=== PATIENT | male | born 1955 | race Hispanic/Latino ===

== ENCOUNTER 2016-11-29 07:31 | Inpatient (IN) | payer BC ==
[2016-11-29 08:19] LABS: ADD MANUAL DIFF? NO
[2016-11-29 08:28] LABS: BASO # 0.08 K/mm3 (0.0-2.0); BASO % 0.7 % (0.0-3.0); EOS # 0.3 (0.0-0.7); EOS % 2.3 % (1.5-5.0); GRAN # 8.24 (1.4-6.5); GRAN % 76.8 % (50.0-68.0); HEMATOCRIT 34.2 % (42.0-52.0); LYMPH # 1.5 (1.2-3.4); LYMPH % 14.2 % (22.0-35.0); MEAN CELL VOLUME 79.9 fL (80.0-105.0); MEAN CORPUSCULAR HEMOGLOBIN 25.5 pg (25.0-35.0); MEAN CORPUSCULAR HGB CONC 31.9 g/dl (31.0-37.0); MONO # 0.6 (0.1-0.6); PLATELET COUNT 121 10^3/uL (120.0-450.0); RED CELL DISTRIBUTION WIDTH 16.6 % (11.5-14.5); WHITE BLOOD COUNT 10.7 10^3/ul (4.5-11.0)
[2016-11-29 08:31] LABS: ALB/GLOB RATIO 1.3 (1.1-1.8); BILIRUBIN,TOTAL 0.5 mg/dL (0.2-1.3); CALCIUM 9.2 mg/dL (8.4-10.5); POTASSIUM 4.6 mmol/L (3.6-5.0); TOTAL PROTEIN 7.7 g/dL (5.8-8.3)
[2016-11-29] MEDS ORDERED: Iohexol 240 (50 ml) ONE (08:33)
[2016-11-29] MEDS: Sodium Chloride 0.9% 1,000 ML IV SCH ×2 (08:37→20:34)
--- NOTE | 2016-11-29 08:46 | ED PDOC ---
Arrival/HPI - General Chief Complaint: GI Problem Time Seen by Provider: 11/29/16 08:12 Historian: Patient - History of Present Illness Narrative History of Present Illness (Text): 11/29/16 08:16 A 61 year old male, whose past medical history includes low platelet count, diabetes and 2 hernia repairs, presents to the emergency department complaining of 2 episodes of rectal bleeding this morning. Patient reports the first episode was maroon but the second one was bright red blood. Patient notes some associated abdominal cramping but denies any fever, nausea. vomiting, pain with bowel movement, recent travel or any other complaints at this time. Patient denies history of hemorrhoids. PMD: Dr. Martinez Time/Duration: 1 hour Symptom Onset: Sudden Symptom Course: Unchanged Quality: Cramping Activities at Onset: Rest Context: Home Past Medical History - Infectious Disease Hx of Infectious Diseases: None - Cardiac Hx Cardiac Disorders: Yes Hx Hypertension: Yes - Neurological Hx Neurological Disorder: Yes (neuropathy both feet) Other/Comment: restless legs dx 3 yrs ago - Endocrine/Metabolic Hx Diabetes Mellitus Type 2: Yes - Hematological/Oncological Other/Comment: low platelets, bone marrow bx done december 2015 - Integumentary Other/Comment: right elbow red swollen warm to touch just started 01/17/16. pt hit elbow in work getting a pot, developed staph infection, picc line in for iv abx finished january 06, now elbow is getting red and swollen again. when pt came to er back in november for r elbow injury developed allergic reaction hives throat closed swollen eyes and lips. Pt does not know what from. pt sustained a 2nd degree burn 2016 at work to right forearm which is healed - Musculoskeletal/Rheumatological Hx Falls: No - Psychiatric Hx Substance Use: No - Surgical History Other/Comment: R knee surgery arthroscopic 1978, hernia sx umbilical and left inguinal, picc line in and out to [facility], fluid drained from right elbow [address] dunham, bone marrow bx 12/2015 - Anesthesia Hx Anesthesia: Yes Hx Anesthesia Reactions: No Hx Malignant Hyperthermia: No Family/Social History - Physician Review Nursing Documentation Reviewed: Yes Family/Social History: Unknown Family HX Smoking Status: Heavy Smoker > 10 Cigarettes Daily Hx Alcohol Use: Yes (occasional) Hx Substance Use: No Allergies/Home Meds Allergies/Adverse Reactions: Allergies nut Allergy (Uncoded 11/29/16 22:27) RASH fruit Adverse Reaction (Uncoded 11/29/16 22:27) RASH Home Medications: Home Meds Medication Instructions Recorded Confirmed MetFORMIN [glucoPHAGE] 1,000 mg PO BID 11/26/15 11/29/16 Amitriptyline [Elavil] 25 mg PO HS 01/19/16 11/29/16 Lansoprazole [Prevacid] 30 mg PO DAILY 01/19/16 11/29/16 Alprazolam [Xanax] 0.5 mg PO BID PRN 11/29/16 11/29/16 Eltrombopag Olamine [Promacta] 75 mg PO DAILY 11/29/16 11/29/16 Furosemide [Lasix] 40 mg PO DAILY 11/29/16 11/29/16 Levocetirizine Dihydrochloride 5 mg PO DAILY 11/29/16 11/29/16 [Levocetirizine Dihydrochloride] Ropinirole HCl [Requip Xl] 4 mg PO DAILY 11/29/16 11/29/16 metOLazone [Zaroxolyn] 2.5 mg PO MWF 11/29/16 11/29/16 Review of Systems - Physician Review All systems were reviewed & negative as marked: Yes - Review of Systems Constitutional: absent: Fevers Gastrointestinal: Abdominal Pain, Hematochezia. absent: Nausea, Vomiting Neurological: absent: Headache, Dizziness Physical Exam Vital Signs Reviewed: Yes Vital Signs Temp Pulse Resp BP Pulse Ox 11/29/16 17:44 106 H 18 139/92 H 99 11/29/16 17:00 78 18 126/76 99 11/29/16 11:00 95 H 16 119/71 100 11/29/16 09:32 83 18 84/51 L 98 11/29/16 07:44 98.3 F 115 H 20 135/84 98 Temperature: Afebrile Blood Pressure: Normal Pulse: Tachycardic Respiratory Rate: Normal Appearance: Positive for: Well-Appearing, Non-Toxic, Comfortable Pain Distress: None Mental Status: Positive for: Alert and Oriented X 3 - Systems Exam Head: Present: Atraumatic, Normocephalic Pupils: Present: PERRL Extroacular Muscles: Present: EOMI Conjunctiva: Present: Normal Mouth: Present: Moist Mucous Membranes Neck: Present: Normal Range of Motion Respiratory/Chest: Present: Clear to Auscultation, Good Air Exchange. No: Respiratory Distress, Accessory Muscle Use Cardiovascular: Present: Normal S1, S2, Tachycardic. No: Murmurs Abdomen: Present: Normal Bowel Sounds. No: Tenderness, Distention, Peritoneal Signs Back: Present: Normal Inspection Upper Extremity: Present: Normal Inspection. No: Cyanosis, Edema Lower Extremity: Present: Normal Inspection. No: Edema Neurological: Present: GCS=15, CN II-XII Intact, Speech Normal Skin: Present: Warm, Dry, Normal Color. No: Rashes Psychiatric: Present: Alert, Oriented x 3, Normal Insight, Normal Concentration Medical Decision Making ED Course and Treatment: 11/29/16 08:16 Impression: A 61 year old male with rectal bleeding. Differential Diagnosis include but are not limited to: GI bleed vs. hemorrhoids Plan: -- Abdomen/Pelvis CT -- Labs -- Urinalysis -- IV Fluids -- Reassess and disposition Prior Visits: Notes and results from previous visits were reviewed. The patient last presented to the emergency department on 01/19/16 for evaluation of generalized weakness and lightheadedness. Progress Notes: 11/29/16 10:[address] Martinez, who is aware and agrees with the plan. He states to consult Dr. Mittal (GI). 11/29/16 11:20 Abdomen/Pelvis CT: Creator : Margarito Daniel MD FINDINGS: LOWER THORAX: Unremarkable. LIVER: Unremarkable. No gross lesion or ductal dilatation. GALLBLADDER AND BILE DUCTS: Unremarkable. PANCREAS: Unremarkable. No gross lesion or ductal dilatation. SPLEEN: Unremarkable. ADRENALS: Unremarkable. No mass. KIDNEYS AND URETERS: Left lower pole renal cyst measuring up to 3.8 centimeters.. No hydronephrosis. No solid mass. VASCULATURE: Unremarkable. No aortic aneurysm. BOWEL: Colonic diverticulosis with fluid noted in the rectum and sigmoid.. No obstruction. No gross mural thickening. APPENDIX: Unremarkable. Normal appendix. PERITONEUM: Unremarkable. No free fluid. No free air. LYMPH NODES: Unremarkable. No enlarged lymph nodes. BLADDER: Unremarkable. REPRODUCTIVE: Unremarkable. BONES: No acute fracture. IMPRESSION: Colonic diverticulosis with fluid noted in the rectum and sigmoid.. No obstruction. No gross mural thickening. 11/29/16 12:[address] Hardy, who is aware and states to order a stat bleeding scan. PROCEDURE: Nuclear medicine gastrointestinal bleeding scan. Patent Litigation Associate : Bernabe Grant MD Report Date : 11/29/2016 15:08:58 FINDINGS: There is abnormal accumulation of the radionuclide in the rectum consistent with an active rectal bleed. Physiologic activity was seen in the heart, liver, spleen and blood vessels. IMPRESSION: Active rectal bleed 11/29/16 15:23 Spoke with chemistry technologist about positive bleeding scan, still awaiting callback from Dr. Hardy 11/29/16 16:28 Patient accepted by ICU - Lab Interpretations Lab Results: 11/29/16 16:25 11/29/16 08:05 Lab Results 11/29/16 16:25: WBC 9.1 D, RBC 3.14 L, Hgb 8.0 L, Hct 24.7 L, MCV 78.7 L, MCH 25.5, MCHC 32.4, RDW 16.5 H, Plt Count 92 L, Gran % 81.7 H, Lymph % (Auto) 10.7 L, [place] % (Auto) 6.1 H, Eos % (Auto) 1.1 L, Baso % (Auto) 0.4, Gran # 7.45 H, Lymph # 1.0 L, [place] # 0.6, Eos # 0.1, Baso # 0.04 11/29/16 16:00: Urine Color Light yellow, Urine Appearance Clear, Urine pH 6.0, Ur Specific [place] 1.010, Urine Protein Trace H, Urine Glucose (UA) Negative, Urine Ketones Negative, Urine Blood Negative, Urine Nitrate Negative, Urine Bilirubin Negative, Urine Urobilinogen 0.2, Ur Leukocyte Esterase Negative, Urine RBC Negative, Urine WBC Negative, Ur Epithelial Cells 0 - 2, Urine Bacteria Neg 11/29/16 11:05: WBC 15.0 H D, RBC 3.72, Hgb 9.6 L, Hct 29.6 L, MCV 79.6 L, MCH 25.8, MCHC 32.4, RDW 16.6 H, Plt Count 134, Gran % 82.5 H, Lymph % (Auto) 10.6 L , [place] % (Auto) 5.1, Eos % (Auto) 1.1 L, Baso % (Auto) 0.7, Gran # 12.36 H, Lymph # 1.6, [place] # 0.8 H, Eos # 0.2, Baso # 0.10 11/29/16 10:05: Blood Type O POSITIVE, Antibody Screen Negative, Crossmatch See Detail, BBK History Checked Patient has bt 11/29/16 10:05: PT 12.0 H, INR 1.11 H, APTT 26.0 11/29/16 08:05: Sodium 139, Potassium 4.6, Chloride 104, Carbon Dioxide 26, Anion Gap 14, BUN 38 H, Creatinine 1.5 H, Est GFR ( Amer) 58, Est GFR ( Non-Af Amer) 48, Random Glucose 249 H, Calcium 9.2, Total Bilirubin 0.5, AST 31 , ALT 30, Alkaline Phosphatase 100, Total Protein 7.7, Albumin 4.4, Globulin 3.3 , Albumin/Globulin Ratio 1.3 11/29/16 08:05: WBC 10.7 D, RBC 4.28, Hgb 10.9 L, Hct 34.2 L, MCV 79.9 L, MCH 25.5, MCHC 31.9, RDW 16.6 H, Plt Count 121, Gran % 76.8 H, Lymph % (Auto) 14.2 L , [place] % (Auto) 6.0, Eos % (Auto) 2.3, Baso % (Auto) 0.7, Gran # 8.24 H, Lymph # 1.5, [place] # 0.6, Eos # 0.3, Baso # 0.08 I have reviewed the lab results: Yes - RAD Interpretation Radiology Orders: 11/29/16 08:31 ABD & PELVIS PO CONTRAST ONLY [CT] Stat 11/29/16 12:13 GI BLEEDING SCAN W/ FLOW [NM] Stat - Medication Orders Current Medication Orders: Home Med (Home Med) 1 unit PO DAILY JHON Sodium Chloride (Sodium Chloride 0.9%) 1,000 mls @ 100 mls/hr IV .Q10H JHON Last Admin: 11/30/16 06:04 Dose: 100 mls/hr Pantoprazole Sodium (Protonix 40mg Ivpb) 40 mg in 100 mls @ 20 mls/hr IVPB .Q5H JHON Last Admin: 11/30/16 06:14 Dose: 20 mls/hr Insulin Human Regular (Humulin R Med) 0 units SC ACHS JHON PRN Reason: Protocol Last Admin: 11/29/16 22:00 Dose: Not Given Non-Admin Reason: Blood Sugar Parameter Discontinued Medications Ephedrine (Ephedrine) Confirm Administered Dose 50 mg .ROUTE .STK-MED ONE Stop: 11/29/16 18:58 Fentanyl (Fentanyl) Confirm Administered Dose 100 mcg .ROUTE .STK-MED ONE Stop: 11/29/16 18:36 Sodium Chloride (Sodium Chloride 0.9%) 1,000 mls @ 999 mls/hr IV .Q1H1M STA Stop: 11/29/16 11:02 Last Admin: 11/29/16 10:30 Dose: 999 mls/hr Iohexol (Omnipaque 240 (50 Ml)) Confirm Administered Dose 50 ml .ROUTE .STK-MED ONE Stop: 11/29/16 08:34 Lidocaine (Lidocaine (Bolus)) Confirm Administered Dose 100 mg .ROUTE .STK-MED ONE Stop: 11/29/16 18:30 Phenylephrine HCl (Phenylephrine Inj) Confirm Administered Dose 10 mg .ROUTE .STK-MED ONE Stop: 11/29/16 19:03 Pneumococcal Polyvalent Vaccine (Pneumovax 23 Vaccine) 0.5 ml IM .ONCE ONE Stop: 11/29/16 23:14 Propofol (Diprivan) Confirm Administered Dose 800 mg .ROUTE .STK-MED ONE Stop: 11/29/16 18:30 - Scribe Statement The provider has reviewed the documentation as recorded by the Rosa M Ray Provider Scribe Attestation: All medical record entries made by the Scribe were at my direction and personally dictated by me. I have reviewed the chart and agree that the record accurately reflects my personal performance of the history, physical exam, medical decision making, and the department course for this patient. I have also personally directed, reviewed, and agree with the discharge instructions and disposition. Disposition/Present on Arrival - Present on Arrival Any Indicators Present on Arrival: No History of DVT/PE: No History of Uncontrolled Diabetes: No Urinary Catheter: No History of Decub. Ulcer: No History Surgical Site Infection Following: None - Disposition Have Diagnosis and Disposition been Completed?: Yes Diagnosis: Rectal bleeding, Anemia Disposition: HOSPITALIZED Disposition Time: 14:30 Patient Plan: ICU Condition: FAIR Critical Care Time - Critical Care Note Total Time (in mins): 120 Documented critical care: time excludes all time spent performing seperately billable procedures.
[2016-11-29] MEDS ORDERED: Sodium Chloride 0.9% 1,000 ML IV STA (10:02)
[2016-11-29 10:29] LABS: INR 1.11 (0.93-1.08)
--- NOTE | 2016-11-29 11:19 | CT ---
PROCEDURE: CT Abdomen and Pelvis without intravenous contrast HISTORY: lower abdominal pain with rectal bleeding COMPARISON: None. TECHNIQUE: Technique. Contrast Dose: Radiation dose: Total exam DLP = mGy-cm. This CT exam was performed using one or more of the following dose reduction techniques: Automated exposure control, adjustment of the mA and/or kV according to patient size, and/or use of iterative reconstruction technique. FINDINGS: LOWER THORAX: Unremarkable. LIVER: Unremarkable. No gross lesion or ductal dilatation. GALLBLADDER AND BILE DUCTS: Unremarkable. PANCREAS: Unremarkable. No gross lesion or ductal dilatation. SPLEEN: Unremarkable. ADRENALS: Unremarkable. No mass. KIDNEYS AND URETERS: Left lower pole renal cyst measuring up to 3.8 centimeters.. No hydronephrosis. No solid mass. VASCULATURE: Unremarkable. No aortic aneurysm. BOWEL: Colonic diverticulosis with fluid noted in the rectum and sigmoid.. No obstruction. No gross mural thickening. APPENDIX: Unremarkable. Normal appendix. PERITONEUM: Unremarkable. No free fluid. No free air. LYMPH NODES: Unremarkable. No enlarged lymph nodes. BLADDER: Unremarkable. REPRODUCTIVE: Unremarkable. BONES: No acute fracture. OTHER FINDINGS: None. IMPRESSION: Colonic diverticulosis with fluid noted in the rectum and sigmoid.. No obstruction. No gross mural thickening.
[2016-11-29] MEDS: Pantoprazole 40mg/100ml IVPB 40 MG/100 ML BAG IVPB SCH ×2 (11:32→17:08)
[2016-11-29 12:06] LABS: ADD MANUAL DIFF? NO
[2016-11-29 12:09] LABS: BASO % 0.7 % (0.0-3.0); EOS # 0.2 (0.0-0.7); EOS % 1.1 % (1.5-5.0); GRAN # 12.36 (1.4-6.5); GRAN % 82.5 % (50.0-68.0); HEMATOCRIT 29.6 % (42.0-52.0); LYMPH # 1.6 (1.2-3.4); LYMPH % 10.6 % (22.0-35.0); MEAN CELL VOLUME 79.6 fL (80.0-105.0); MEAN CORPUSCULAR HEMOGLOBIN 25.8 pg (25.0-35.0); MEAN CORPUSCULAR HGB CONC 32.4 g/dl (31.0-37.0); MONO # 0.8 (0.1-0.6); MONO % 5.1 % (1.0-6.0); PLATELET COUNT 134 10^3/uL (120.0-450.0); RED CELL DISTRIBUTION WIDTH 16.6 % (11.5-14.5)
--- NOTE | 2016-11-29 14:16 | CON ---
DATE: 11/29/2016 This is a covering consult for Dr. Lázaro Mittal. The patient was seen and examined in the Emergency Room. REQUEST FOR CONSULTATION: For GI bleed. HISTORY OF PRESENT ILLNESS: This is a 61-year-old male with a past medical history of thrombocytopenia, diabetes mellitus and hernia repair x 2. Came to the Emergency Room for evaluation of bleeding per rectum. The patient states that he had 2 bloody bowel movements. The initial bowel movement was maroon colored and the second bowel movement was bright red blood. He has had bleeding while here in hospital. He did complain of abdominal cramping, which urged him to go to the bathroom, but denies current abdominal pain. No complaints of nausea. No shortness of breath. No chest pains. No reports of any vomiting, fever or chills. Denies any use of NSAIDs. Reports that he moves his bowels regularly and has never noted any melena or bright red blood per rectum. Denies ever having endoscopy or colonoscopy. No complaints of any weight loss or anorexia, just right now he is feeling thirsty. He did have a CT scan done in the Emergency Room, which reports colonic diverticulosis and fluid in the rectum and sigmoid. PAST MEDICAL HISTORY: As stated above, thrombocytopenia, status post bone marrow biopsy, insulin-dependent diabetes mellitus, diabetic neuropathy, septic arthritis of the right elbow, hypertension. PAST SURGICAL HISTORY: He had repair of inguinal and umbilical hernia. Denies any cardiac procedures. ALLERGIES: No known drug allergies. SOCIAL HISTORY: Denies tobacco use, alcohol abuse or substance abuse. FAMILY HISTORY: Denies any known history of cancer in the family or any other illness. MEDICATIONS: Reviewed as per MAR. REVIEW OF SYSTEMS: Systems reviewed with positive findings, see HPI. VITAL SIGNS: Temperature is 98.3 on admission, his recent blood pressure is 119 /71, pulse rate 95, respirations 16, 100% on room air. LABORATORIES: WBC on admission is 10.7, repeated again at 11 and it is 15.0, his hemoglobin is 9.6, hematocrit 29.6. Hemoglobin on admission was 10.9. Current platelets from 11 a.m. is 134. PT 12.0, INR is 1.11, PTT 26.0. Sodium is 139, K is 4.6, BUN is 38, creatinine is 1.5. His liver enzymes are within normal limits. PHYSICAL EXAMINATION: HEENT: Sclera is anicteric. NECK: Supple. CARDIAC: S1, S2. LUNGS: Clear. ABDOMEN: With bowel sounds, soft, not distended, no tenderness on palpation. No rebound or guarding. EXTREMITIES: Positive pulses, no edema. NEUROLOGIC: Awake, alert, and oriented. ASSESSMENT: This is a 61-year-old male with history of thrombocytopenia, hernia repair x 2, came with complaints of bleeding per rectum, rule out diverticular bleed, angiodysplasia, malignancy, history of hypertension, anemia secondary to bleeding. Diverticulosis evident on ct scan. PLAN: He is getting a stat bleeding scan. Monitor H and H. Currently n.p.o. and continue IV fluids for hydration. On Protonix drip, typed and screen in ER. We will continue to follow closely. Thank you for this consult and for allowing us to participate in your patient's care. We will make further recommendations based upon patient's clinical course. Follow up GI bleeding scan. Seen and case discussed with Dr. Hardy. Sparkle RODRIGUEZ cc: [id number] TT: 11/29/2016 14:15:20 Confirmation # [id number] Dictation # [id number] en MTDD
--- NOTE | 2016-11-29 15:10 | NM ---
PROCEDURE: Nuclear medicine gastrointestinal bleeding scan. HISTORY: BRBPR COMPARISON: None available. TECHNIQUE: 4 cc of patient blood was withdrawn and mixed with 20 mCi of technetium ultra tagged. Images of the abdomen and pelvis were obtained in the anterior projection at 1 min intervals over a period of 45 min. FINDINGS: There is abnormal accumulation of the radionuclide in the rectum consistent with an active rectal bleed. Physiologic activity was seen in the heart, liver, spleen and blood vessels. IMPRESSION: Active rectal bleed
[2016-11-29 16:07] LABS: URINE BILIRUBIN NEGATIVE (NEGATIVE); URINE BLOOD NEGATIVE (NEGATIVE); URINE GLUCOSE (UA) NEGATIVE (NEGATIVE); URINE KETONE NEGATIVE (NEGATIVE); URINE LEUKOCYTE ESTERASE NEGATIVE Leu/uL (NEGATIVE); URINE PROTEIN TRACE mg/dL (<30 mg/dL); URINE UROBILINOGEN 0.2 E.U./dL (<1 E.U./dL)
[2016-11-29 16:09] LABS: URINE APPEARANCE CLEAR (CLEAR); URINE COLOR LIGHT YELLOW (YELLOW)
[2016-11-29 16:10] LABS: URINE BACTERIA NEG (NEG); URINE EPITHELIAL CELLS 0 - 2 /hpf (0-5); URINE RBC NEGATIVE /hpf (0-2); URINE WBC NEGATIVE /hpf (0-6)
[2016-11-29 16:32] LABS: ADD MANUAL DIFF? NO
[2016-11-29 16:37] LABS: BASO # 0.04 K/mm3 (0.0-2.0); BASO % 0.4 % (0.0-3.0); EOS # 0.1 (0.0-0.7); EOS % 1.1 % (1.5-5.0); GRAN # 7.45 (1.4-6.5); GRAN % 81.7 % (50.0-68.0); HEMATOCRIT 24.7 % (42.0-52.0); LYMPH % 10.7 % (22.0-35.0); MEAN CELL VOLUME 78.7 fL (80.0-105.0); MEAN CORPUSCULAR HEMOGLOBIN 25.5 pg (25.0-35.0); MEAN CORPUSCULAR HGB CONC 32.4 g/dl (31.0-37.0); MONO # 0.6 (0.1-0.6); MONO % 6.1 % (1.0-6.0); PLATELET COUNT 92 10^3/uL (120.0-450.0); RED CELL DISTRIBUTION WIDTH 16.5 % (11.5-14.5); WHITE BLOOD COUNT 9.1 10^3/ul (4.5-11.0)
--- NOTE | 2016-11-29 17:02 | CP.PCM.CON ---
<Luz Wong - Last Filed: 11/29/16 17:21> History of Present Illness - History of Present Illness History of Present Illness: Critical care consult for Dr. Negro Wong, PGY-1 Pt S & E at bedside. 61M w/PMH sig for DM, diabetic neuropathy, restless leg syndrome, thrombocytopenia evaluated in ED for hematochezia x 5. Pt reports he moved his bowels this AM at approximately 0730 with noted bright red blood in toilet bowel , no clots or melena, estimated volume of 0.5 L. Pt reports he subsequently had 4-5 more episodes of BRBPR between initial episode and evaluation. Pt admits to blurry vision (chronic) abdominal discomfort with bloating, feels like he is going to move his bowels at same time as urinating, B/L LE numbness and tingling (chronic). Denies N/V/F/C, SOB, CP, palpitations, CARTY, syncope, changes in vision, cough, hemoptysis, hematemesis, melena, clots, B/L LE pain, back pain, dysuria, hematuria, hemorrhoids, hx falls. In ED pt had bleeding scan positive for rectal bleeding. H/H down trending. Plts down trending. GI consulted. PMH: DM, diabetic neuropathy, restless leg syndrome, thrombocytopenia PSH: Umbilical hernia repair, Left inguinal hernia repair, Right knee arthroscopy All: Fruits (itchy throat), fresh nuts (itchy throat) SH: Admits to tobacco use - 1 ppd x 30 yrs, denies ETOH or illicit drug use PMD: [facility] Outpt heme: [facility] Review of Systems - Review of Systems All systems: reviewed and no additional remarkable complaints except - Constitutional Constitutional: absent: Chills, Fever, Headache - EENT Eyes: Blurred Vision (chronic). absent: Blind Spots Ears: absent: Dizziness Nose/Mouth/Throat: absent: Epistaxis, Dysphagia, Sore Throat - Cardiovascular Cardiovascular: absent: Chest Pain, Dyspnea, Leg Edema, Lightheadedness, Palpitations - Respiratory Respiratory: absent: Cough - Gastrointestinal Gastrointestinal: Bloating, Change in Bowel Habits, Hematochezia. absent: Abdominal Pain, Hematemesis, Melena, Nausea, Vomiting - Genitourinary Genitourinary: absent: Change in Urinary Stream - Musculoskeletal Musculoskeletal: Numbness (B/L LE (chronic)), Tingling (B/L LE (chronic)). absent: Back Pain - Integumentary Integumentary: absent: Bleeding Lesions - Neurological Neurological: absent: Frequent Falls, Headaches, Syncope, Weakness - Endocrine Endocrine: absent: Palpitations Past Patient History - Infectious Disease Hx of Infectious Diseases: None - Past Social History Smoking Status: Heavy Smoker > 10 Cigarettes Daily - CARDIAC Hx Cardiac Disorders: Yes Hx Hypertension: Yes - NEUROLOGICAL Hx Neurological Disorder: Yes (neuropathy both feet) Other/Comment: restless legs dx 3 yrs ago - ENDOCRINE/METABOLIC Hx Diabetes Mellitus Type 2: Yes - HEMATOLOGICAL/ONCOLOGICAL Other/Comment: low platelets, bone marrow bx done december 2015 - INTEGUMENTARY Other/Comment: right elbow red swollen warm to touch just started 01/17/16. pt hit elbow in work getting a pot, developed staph infection, picc line in for iv abx finished january 06, now elbow is getting red and swollen again. when pt came to er back in november for r elbow injury developed allergic reaction hives throat closed swollen eyes and lips. Pt does not know what from. pt sustained a 2nd degree burn 2016 at work to right forearm which is healed - MUSCULOSKELETAL/RHEUMATOLOGICAL Hx Falls: No - PSYCHIATRIC Hx Substance Use: No - SURGICAL HISTORY Other/Comment: R knee surgery arthroscopic 1978, hernia sx umbilical and left inguinal, picc line in and out to [facility], fluid drained from right elbow [address] dunham, bone marrow bx 12/2015 - ANESTHESIA Hx Anesthesia: Yes Hx Anesthesia Reactions: No Hx Malignant Hyperthermia: No Meds Allergies/Adverse Reactions: Allergies Allergy/AdvReac Type Severity Reaction Status Date / Time nut Allergy RASH Uncoded 11/29/16 07:54 fruit AdvReac RASH Uncoded 11/29/16 07:54 - Medications Medications: Current Medications Sodium Chloride (Sodium Chloride 0.9%) 1,000 mls @ 100 mls/hr IV .Q10H JHON Last Admin: 11/29/16 08:37 Dose: 100 mls/hr Pantoprazole Sodium (Protonix 40mg Ivpb) 40 mg in 100 mls @ 20 mls/hr IVPB .Q5H J[facility]ON Last Admin: 11/29/16 11:32 Dose: 20 mls/hr Insulin Human Regular (Humulin R Med) 0 units SC ACHS JHON PRN Reason: Protocol Physical Exam - Constitutional Appears: Non-toxic, No Acute Distress - Head Exam Head Exam: ATRAUMATIC, NORMAL INSPECTION, NORMOCEPHALIC - Eye Exam Eye Exam: EOMI, Normal appearance, PERRL. absent: Nystagmus, Scleral icterus Pupil Exam: NORMAL ACCOMODATION, PERRL - ENT Exam ENT Exam: Mucous Membranes Moist (no paleness under the tongue), Normal Exam - Neck Exam Neck exam: Positive for: Full Rom. Negative for: Normal Inspection (Prominent mobile mass under skin of right neck, approximately 1.3 cm in diameter), Tenderness - Respiratory Exam Respiratory Exam: Clear to Auscultation Bilateral, NORMAL BREATHING PATTERN. absent: Accessory Muscle Use, Chest Wall Tenderness, Rales, Rhonchi, Wheezes, Respiratory Distress - Cardiovascular Exam Cardiovascular Exam: REGULAR RHYTHM, +S1, +S2 - GI/Abdominal Exam GI & Abdominal Exam: Hypoactive Bowel Sounds, Soft. absent: Distended, Firm, Guarding, Rigid, Tenderness - Extremities Exam Extremities exam: Positive for: normal inspection. Negative for: pedal edema, tenderness - Back Exam Back exam: FULL ROM, NORMAL INSPECTION. absent: paraspinal tenderness, tenderness - Neurological Exam Neurological exam: Alert, CN II-XII Intact, Oriented x3 - Psychiatric Exam Psychiatric exam: Normal Affect, Normal Mood - Skin Skin Exam: Dry, Intact, Normal Color, Warm Results - Vital Signs Recent Vital Signs: Last Vital Signs Temp 98.3 F 11/29/16 07:44 Pulse 95 H 11/29/16 11:00 Resp 16 11/29/16 11:00 BP 119/71 11/29/16 11:00 Pulse Ox 100 11/29/16 11:00 - Labs Result Diagrams: 11/29/16 16:25 11/29/16 08:05 Labs: Laboratory Results - last 24 hr 11/29/16 11/29/16 11/29/16 08:05 08:05 10:05 WBC 10.7 D RBC 4.28 Hgb 10.9 L Hct 34.2 L MCV 79.9 L MCH 25.5 MCHC 31.9 RDW 16.6 H Plt Count 121 Gran % 76.8 H Lymph % (Auto) 14.2 L [place] % (Auto) 6.0 Eos % (Auto) 2.3 Baso % (Auto) 0.7 Gran # 8.24 H Lymph # 1.5 [place] # 0.6 Eos # 0.3 Baso # 0.08 PT 12.0 H INR 1.11 H APTT 26.0 Sodium 139 Potassium 4.6 Chloride 104 Carbon Dioxide 26 Anion Gap 14 BUN 38 H Creatinine 1.5 H Est GFR ( Amer) 58 Est GFR (Non-Af Amer) 48 Random Glucose 249 H Calcium 9.2 Total Bilirubin 0.5 AST 31 ALT 30 Alkaline Phosphatase 100 Total Protein 7.7 Albumin 4.4 Globulin 3.3 Albumin/Globulin Ratio 1.3 Urine Color Urine Appearance Urine pH Ur Specific [place] Urine Protein Urine Glucose (UA) Urine Ketones Urine Blood Urine Nitrate Urine Bilirubin Urine Urobilinogen Ur Leukocyte Esterase Urine RBC Urine WBC Ur Epithelial Cells Urine Bacteria Blood Type Antibody Screen BBK History Checked 11/29/16 11/29/16 11/29/16 10:05 11:05 16:00 WBC 15.0 H D RBC 3.72 Hgb 9.6 L Hct 29.6 L MCV 79.6 L MCH 25.8 MCHC 32.4 RDW 16.6 H Plt Count 134 Gran % 82.5 H Lymph % (Auto) 10.6 L [place] % (Auto) 5.1 Eos % (Auto) 1.1 L Baso % (Auto) 0.7 Gran # 12.36 H Lymph # 1.6 [place] # 0.8 H Eos # 0.2 Baso # 0.10 PT INR APTT Sodium Potassium Chloride Carbon Dioxide Anion Gap BUN Creatinine Est GFR ( Amer) Est GFR (Non-Af Amer) Random Glucose Calcium Total Bilirubin AST ALT Alkaline Phosphatase Total Protein Albumin Globulin Albumin/Globulin Ratio Urine Color Light yellow Urine Appearance Clear Urine pH 6.0 Ur Specific [place] 1.010 Urine Protein Trace H Urine Glucose (UA) Negative Urine Ketones Negative Urine Blood Negative Urine Nitrate Negative Urine Bilirubin Negative Urine Urobilinogen 0.2 Ur Leukocyte Esterase Negative Urine RBC Negative Urine WBC Negative Ur Epithelial Cells 0 - 2 Urine Bacteria Neg Blood Type O POSITIVE Antibody Screen Negative BBK History Checked Patient has bt 11/29/16 16:25 WBC 9.1 D RBC 3.14 L Hgb 8.0 L Hct 24.7 L MCV 78.7 L MCH 25.5 MCHC 32.4 RDW 16.5 H Plt Count 92 L Gran % 81.7 H Lymph % (Auto) 10.7 L [place] % (Auto) 6.1 H Eos % (Auto) 1.1 L Baso % (Auto) 0.4 Gran # 7.45 H Lymph # 1.0 L [place] # 0.6 Eos # 0.1 Baso # 0.04 PT INR APTT Sodium Potassium Chloride Carbon Dioxide Anion Gap BUN Creatinine Est GFR ( Amer) Est GFR (Non-Af Amer) Random Glucose Calcium Total Bilirubin AST ALT Alkaline Phosphatase Total Protein Albumin Globulin Albumin/Globulin Ratio Urine Color Urine Appearance Urine pH Ur Specific [place] Urine Protein Urine Glucose (UA) Urine Ketones Urine Blood Urine Nitrate Urine Bilirubin Urine Urobilinogen Ur Leukocyte Esterase Urine RBC Urine WBC Ur Epithelial Cells Urine Bacteria Blood Type Antibody Screen BBK History Checked Assessment & Plan - Assessment and Plan (Free Text) Assessment: 61M w/PMH sig for DM, diabetic neuropathy, restless leg syndrome, chronic thrombocytopenia on Promacta admitted to ICU for acute rectal bleeding and chronic thrombocytopenia. Pt currently stable, however will monitor H/H, transfuse blood and plts PRN. Plan: Neuro AO x3 Monitor CVS Tachycardia upon admission- resolved HR WNL BP w/1 episode of hypotension-resolved Likely 2/2 acute GIB No cardiac hx Monitor Pulm Stable 100% on RA Monitor GI NPO IVF Cont Protonix drip GI consulted- possible sigmoidoscopy Surgery consulted-Eileen Nephro Electrolytes WNL BUN 38 Cr 1.5 Monitor Able to urinate on own Endo DM Start ISS Start Accuchecks Blood sugar 249 Target euglycemia as per NICE sugar trial ID Afebrile Leukocytosis of 15 from 10.7 FU U/A Monitor Heme Chronic thrombocytopenia on Promacta Acute GI bleed Hgb 8 from 9.6 from 10.9 Hct 24.7 from 29.6 from 34.2 Plts 92 from 134 Will have plts on hold for possible transfusion On Protonix drip PT 12 INR 1.11 PTT 26 Type O positive Serial CBCs Q4H Blood transfusion PRN Monitor See's [facility] as outpt- will consult MSK Ambulate SCDs GI/DVT ppx Contraindications to VTE ppx due to acute GIB On Protonix drip SCDs Dispo Currently stable Will admit to ICU for further mgmt Transfuse blood PRN Hgb<7 DW attending - Date & Time Date: 11/29/16 Time: 16:00 <Rios Mitchell MD - Last Filed: 11/29/16 18:17> Meds - Medications Medications: Current Medications Sodium Chloride (Sodium Chloride 0.9%) 1,000 mls @ 100 mls/hr IV .Q10H JHON Last Admin: 11/29/16 08:37 Dose: 100 mls/hr Pantoprazole Sodium (Protonix 40mg Ivpb) 40 mg in 100 mls @ 20 mls/hr IVPB .Q5H J[facility]ON Last Admin: 11/29/16 17:08 Dose: 20 mls/hr Insulin Human Regular (Humulin R Med) 0 units SC ACHS JHON PRN Reason: Protocol Results - Vital Signs Recent Vital Signs: Last Vital Signs Temp 98.3 F 11/29/16 07:44 Pulse 78 11/29/16 17:00 Resp 18 11/29/16 17:00 BP 126/76 11/29/16 17:00 Pulse Ox 99 11/29/16 17:00 - Labs Result Diagrams: 11/29/16 16:25 11/29/16 08:05 Attending/Attestation - Attestation I have personally seen and examined this patient.: Yes I have fully participated in the care of the patient.: Yes I have reviewed all pertinent clinical information: Yes Notes (Text): 11/29/16 18:16 61 y/o M w/ Lower GI bleed Overt BRBPR x 4 in the past 6 hrs. 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 Currently HGB is dropping slowly with a positive Bleeding scan ordered by Michele.I Will need to have 1 unit prbc and 1 unit platelets on hold Possible Flex SIG planned for tonight to stabilize bleed. Currently on PPI drip. And cbc q4 hrs. Hemodynamically stable. SCD . cc time 65 min
[2016-11-29] MEDS ORDERED: Propofol 10 mg/ml Inj (20 ML) ONE (18:29)
[2016-11-29] MEDS ORDERED: ePHEDrine 50 mg/ml Inj ONE (18:57)
[2016-11-29] MEDS ORDERED: Phenylephrine 10 mg/ml Inj ONE (19:02)
[2016-11-29] MEDS: Insulin Reg-MEDIUM-Coverage SC SCH (22:00)
[2016-11-29 23:13] VITALS: BMI 30.2
[2016-11-29] MEDS ORDERED: Pneumococcal 23-Valent Vaccine IM ONE (23:13)
[2016-11-30] MEDS: Pantoprazole 40mg/100ml IVPB 40 MG/100 ML BAG IVPB SCH ×5 (01:07→22:55)
[2016-11-30 01:33] LABS: ADD MANUAL DIFF? NO
[2016-11-30 01:35] LABS: BASO # 0.04 K/mm3 (0.0-2.0); BASO % 0.5 % (0.0-3.0); EOS # 0.1 (0.0-0.7); EOS % 1.8 % (1.5-5.0); GRAN # 5.49 (1.4-6.5); GRAN % 74.2 % (50.0-68.0); HEMATOCRIT 24.7 % (42.0-52.0); LYMPH # 1.2 (1.2-3.4); LYMPH % 16.1 % (22.0-35.0); MEAN CELL VOLUME 79.9 fL (80.0-105.0); MEAN CORPUSCULAR HEMOGLOBIN 26.5 pg (25.0-35.0); MEAN CORPUSCULAR HGB CONC 33.2 g/dl (31.0-37.0); MONO # 0.6 (0.1-0.6); MONO % 7.4 % (1.0-6.0); PLATELET COUNT 78 10^3/uL (120.0-450.0); RED CELL DISTRIBUTION WIDTH 16.4 % (11.5-14.5); WHITE BLOOD COUNT 7.4 10^3/ul (4.5-11.0)
[2016-11-30 05:59] LABS: ALB/GLOB RATIO 1.2 (1.1-1.8); ALKALINE PHOSPHATASE 75 U/L (38-133); ALT/SGPT 32 U/L (7-56); AST/SGOT 24 U/L (15-59); BILIRUBIN,TOTAL 0.6 mg/dL (0.2-1.3); BLOOD UREA NITROGEN 22 mg/dL (7-21); CALCIUM 8.4 mg/dL (8.4-10.5); CARBON DIOXIDE 25 mmol/L (21-33); CHLORIDE 109 mmol/L (98-107); GFR AFRICAN-AMERICAN > 60; GLUCOSE,RANDOM 189 mg/dL (70-110); MAGNESIUM 1.8 mg/dL (1.7-2.2); PHOSPHOROUS 3.2 mg/dL (2.5-4.5); POTASSIUM 4.3 mmol/L (3.6-5.0); SODIUM 138 mmol/L (132-148); TOTAL PROTEIN 5.6 g/dL (5.8-8.3)
[2016-11-30] MEDS: Sodium Chloride 0.9% 1,000 ML IV SCH (06:04)
[2016-11-30 06:28] LABS: ADD MANUAL DIFF? NO
[2016-11-30 06:39] LABS: BASO # 0.06 K/mm3 (0.0-2.0); BASO % 0.8 % (0.0-3.0); EOS # 0.1 (0.0-0.7); EOS % 1.8 % (1.5-5.0); GRAN # 5.83 (1.4-6.5); GRAN % 76.7 % (50.0-68.0); HEMATOCRIT 25.7 % (42.0-52.0); LYMPH # 1.1 (1.2-3.4); LYMPH % 14.3 % (22.0-35.0); MEAN CELL VOLUME 79.6 fL (80.0-105.0); MEAN CORPUSCULAR HEMOGLOBIN 25.7 pg (25.0-35.0); MEAN CORPUSCULAR HGB CONC 32.3 g/dl (31.0-37.0); MONO # 0.5 (0.1-0.6); MONO % 6.4 % (1.0-6.0); PLATELET COUNT 81 10^3/uL (120.0-450.0); RED CELL DISTRIBUTION WIDTH 16.6 % (11.5-14.5); WHITE BLOOD COUNT 7.6 10^3/ul (4.5-11.0)
--- NOTE | 2016-11-30 07:16 | CON ---
DATE: 11/29/2016 This patient was seen and evaluated earlier in the intensive care unit. Discussed with the salvage worker and also with the patient's . This 61-year- old patient with thrombocytopenia, diabetes mellitus and neuropathy. The patient is on Promacta for thrombocytopenia, admitted with acute onset of lower GI bleeding. Bleeding scan was reported as bleeding per the rectum. On close review of the bleeding scan, the bleeding appears to be slightly originating from the sigmoid and tracking down and pooling in the rectal area. The patient has multiple episodes of bright red blood per rectum. The patient's hemoglobin dropped to 8 g. His baseline is around 11 g. Multiple episodes of bright red blood per rectum. No complaints of any abdominal pain, no similar previous episode. The patient never had a colonoscopy done in the past. PHYSICAL EXAMINATION ABDOMEN: Soft. There is no tenderness. This is an addendum to the GI consultation report dictated by Sparkle Eaton APN. Discussed with the patient at length. Informed consent was obtained for flexible sigmoidoscopy and possible colonoscopic evaluation. The patient had a flexible sigmoidoscopy. The scope was advanced up to 40 cm level. There was extensive diverticulosis encountered. The view was very limited and also obstructed by the large amount of clot and blood in the large diverticulum. Could not see further beyond 40 cm. There was no active bleeding noticed in spite of a vigorous lavage. Only large amount of clotted blood noticed. Careful examination of the rectum did not reveal any bleeding source. Careful examination of hemorrhoid does not appear to have any recent evidence of bleeding. The likely source of bleeding appears to be arising from sigmoid based on the review of the nuclear scan and also in view of the large amount of clotted blood in the sigmoid colon area. The patient tolerated the procedure well. The patient sent back to ICU. RECOMMENDATIONS: It is reasonable thing monitoring of the hemoglobin and hematocrit. The patient does have thrombocytopenia also. We will recommend to at least to hold off the further preparation for at least 24 hours, to prepare the patient for the colonoscopy. The CT scan was also reviewed. We will continue to closely follow up his care and suggest further management based on the clinical course. Kiko Hardy MD cc: [id number] TT: 11/30/2016 07:16:24 Confirmation # [id number] Dictation # [id number] tn MOE
[2016-11-30] MEDS: Insulin Reg-MEDIUM-Coverage SC SCH ×4 (08:03→22:22)
[2016-11-30 09:05] LABS: ADD MANUAL DIFF? NO
[2016-11-30 09:08] LABS: BASO # 0.09 K/mm3 (0.0-2.0); BASO % 1.1 % (0.0-3.0); EOS # 0.2 (0.0-0.7); EOS % 2.1 % (1.5-5.0); GRAN # 6.76 (1.4-6.5); GRAN % 79.8 % (50.0-68.0); HEMATOCRIT 28.7 % (42.0-52.0); LYMPH % 11.9 % (22.0-35.0); MEAN CELL VOLUME 79.7 fL (80.0-105.0); MEAN CORPUSCULAR HEMOGLOBIN 26.1 pg (25.0-35.0); MEAN CORPUSCULAR HGB CONC 32.8 g/dl (31.0-37.0); MONO # 0.4 (0.1-0.6); MONO % 5.1 % (1.0-6.0); PLATELET COUNT 98 10^3/uL (120.0-450.0); RED CELL DISTRIBUTION WIDTH 16.6 % (11.5-14.5); WHITE BLOOD COUNT 8.5 10^3/ul (4.5-11.0)
--- NOTE | 2016-11-30 09:15 | CP.PCM.CON ---
History of Present Illness - History of Present Illness History of Present Illness: Surgery Consult for Monika 61M w/PMH sig for ITP DM came to [facility] [place] with hematochezia x 5. Pt reports he moved his bowels yesterday at approximately 0730 with noted bright red blood in toilet bowel, no clots or melena, estimated volume of 0.5 L. Pt reports he subsequently had 4-5 more episodes of BRBPR . Pt admits to abdominal discomfort with bloating. Denies N/V/F/C, SOB, CP, palpitations, CARTY, syncope, changes in vision, cough, hemoptysis, hematemesis, melena, B/L LE pain, back pain, dysuria, hematuria, hemorrhoids, hx falls, recent travel. Pt doens't take blood thinner. Hgb trended down to 8. Got PRBC and went up to 8.3. Pt had flex sigmoidoscope overnight. Showed diverticulosis, no active bleeding, no hemoroidal bleeding. Blood clot noted. Up to 40cm bc of poor prep. This is the first episodes of having hematochezia and pt never had colonoscopy before this time. Since flex sigmoidoscope pt stopped bleeding. PMH: DM, diabetic neuropathy, restless leg syndrome, thrombocytopenia PSH: Umbilical hernia repair, Left inguinal hernia repair, Right knee arthroscopy All: Fruits (itchy throat), fresh nuts (itchy throat) SH: Admits to tobacco use - 1 ppd x 30 yrs, denies ETOH or illicit drug use PMD: [facility] Outpt heme: [facility] Review of Systems - Review of Systems Review of Systems: See HPI Past Patient History - Infectious Disease Hx of Infectious Diseases: None - Past Social History Smoking Status: Current Some Days Smoker - CARDIAC Hx Cardiac Disorders: Yes Hx Hypertension: Yes - PULMONARY Hx Respiratory Disorders: Yes (SMOKES PPD.) - NEUROLOGICAL Hx Neurological Disorder: Yes (neuropathy both feet) Other/Comment: restless legs dx 3 yrs ago - HEENT Hx HEENT Problems: Yes - RENAL Hx Chronic Kidney Disease: No - ENDOCRINE/METABOLIC Hx Endocrine Disorders: Yes Hx Diabetes Mellitus Type 2: Yes - HEMATOLOGICAL/ONCOLOGICAL Hx Blood Disorders: Yes (GI BLEED-) Hx Anemia: Yes Other/Comment: low platelets, bone marrow bx done december 2015 - INTEGUMENTARY Hx Dermatological Problems: Yes Other/Comment: right elbow red swollen warm to touch just started 01/17/16. pt hit elbow in work getting a pot, developed staph infection, picc line in for iv abx finished january 06, now elbow is getting red and swollen again. when pt came to er back in november for r elbow injury developed allergic reaction hives throat closed swollen eyes and lips. Pt does not know what from. 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) Hx Falls: No - GASTROINTESTINAL Hx Gastrointestinal Disorders: Yes (RECTAL BLEED 11-29-16 DX DIVERTICULITIS) Hx Diverticulitis: Yes - GENITOURINARY/GYNECOLOGICAL Hx Genitourinary Disorders: No - PSYCHIATRIC Hx Psychophysiologic Disorder: No Hx Substance Use: No - SURGICAL HISTORY Hx Surgeries: Yes (SIGMOIDOSCOPY,PICC IN AND OUT, RIGHT KNEE ARTHROSCOPY,L INGUINAL HERNIORHAP) - ANESTHESIA Hx Anesthesia Reactions: Yes Hx Malignant Hyperthermia: No Meds Allergies/Adverse Reactions: Allergies Allergy/AdvReac Type Severity Reaction Status Date / Time nut Allergy RASH Uncoded 11/29/16 22:27 fruit AdvReac RASH Uncoded 11/29/16 22:27 - Medications Medications: Current Medications Home Med (Home Med) 1 unit PO DAILY JHON Sodium Chloride (Sodium Chloride 0.9%) 1,000 mls @ 100 mls/hr IV .Q10H [facility] Last Admin: 11/30/16 06:04 Dose: 100 mls/hr Pantoprazole Sodium (Protonix 40mg Ivpb) 40 mg in 100 mls @ 20 mls/hr IVPB .Q5H [facility] Last Admin: 11/30/16 06:14 Dose: 20 mls/hr Insulin Human Regular (Humulin R Med) 0 units SC ACHS JHON PRN Reason: Protocol Last Admin: 11/29/16 22:00 Dose: Not Given Physical Exam - Constitutional Appears: No Acute Distress - Head Exam Head Exam: ATRAUMATIC, NORMAL INSPECTION, NORMOCEPHALIC - Eye Exam Eye Exam: EOMI, Normal appearance, PERRL Pupil Exam: NORMAL ACCOMODATION, PERRL - ENT Exam ENT Exam: Mucous Membranes Moist - Neck Exam Neck exam: Positive for: Normal Inspection - Respiratory Exam Respiratory Exam: Clear to Auscultation Bilateral, NORMAL BREATHING PATTERN - Cardiovascular Exam Cardiovascular Exam: REGULAR RHYTHM - GI/Abdominal Exam GI & Abdominal Exam: Soft. absent: Distended, Firm, Guarding, Hernia, Pulsatile Mass, Rebound, Rigid, Tenderness - Rectal Exam Rectal Exam: Bloody Stool, NORMAL INSPECTION. absent: Black Stool, Hemorrhoids - Exam Exam: NORMAL INSPECTION - Extremities Exam Extremities exam: Positive for: full ROM, normal inspection - Back Exam Back exam: NORMAL INSPECTION - Neurological Exam Neurological exam: Alert, CN II-XII Intact, Normal Gait, Oriented x3, Reflexes Normal Results - Vital Signs Recent Vital Signs: Last Vital Signs Temp 98.3 F 11/29/16 22:53 Pulse 103 H 11/30/16 04:00 Resp 18 11/29/16 22:53 BP 130/79 11/29/16 22:53 Pulse Ox 99 11/29/16 17:44 - Labs Result Diagrams: 11/30/16 09:04 11/30/16 05:35 Labs: Laboratory Results - last 24 hr 11/29/16 11/30/16 11/30/16 23:08 01:25 05:30 WBC 7.4 7.6 RBC 3.09 L 3.23 L Hgb 8.2 L 8.3 L Hct 24.7 L 25.7 L MCV 79.9 L 79.6 L MCH 26.5 25.7 MCHC 33.2 32.3 RDW 16.4 H 16.6 H Plt Count 78 L 81 L Gran % 74.2 H 76.7 H Lymph % (Auto) 16.1 L 14.3 L [place] % (Auto) 7.4 H 6.4 H Eos % (Auto) 1.8 1.8 Baso % (Auto) 0.5 0.8 Gran # 5.49 5.83 Lymph # 1.2 1.1 L [place] # 0.6 0.5 Eos # 0.1 0.1 Baso # 0.04 0.06 Sodium Potassium Chloride Carbon Dioxide Anion Gap BUN Creatinine Est GFR ( Amer) Est GFR (Non-Af Amer) POC Glucose (mg/dL) 190 H Random Glucose Calcium Phosphorus Magnesium Total Bilirubin AST ALT Alkaline Phosphatase Total Protein Albumin Globulin Albumin/Globulin Ratio 11/30/16 11/30/16 11/30/16 05:35 05:57 09:04 WBC 8.5 RBC 3.60 Hgb 9.4 L Hct 28.7 L MCV 79.7 L MCH 26.1 MCHC 32.8 RDW 16.6 H Plt Count 98 L Gran % 79.8 H Lymph % (Auto) 11.9 L [place] % (Auto) 5.1 Eos % (Auto) 2.1 Baso % (Auto) 1.1 Gran # 6.76 H Lymph # 1.0 L [place] # 0.4 Eos # 0.2 Baso # 0.09 Sodium 138 Potassium 4.3 Chloride 109 H Carbon Dioxide 25 Anion Gap 8 L BUN 22 H Creatinine 1.1 Est GFR ( Amer) > 60 Est GFR (Non-Af Amer) > 60 POC Glucose (mg/dL) 225 H Random Glucose 189 H Calcium 8.4 Phosphorus 3.2 Magnesium 1.8 Total Bilirubin 0.6 AST 24 ALT 32 Alkaline Phosphatase 75 Total Protein 5.6 L Albumin 3.1 Globulin 2.5 Albumin/Globulin Ratio 1.2 Assessment & Plan - Assessment and Plan (Free Text) Assessment: 61 M w PMH of ITP came with GI bleed 5 epiosed of BRBPR: Improving. No bleed today Hgb 8.3 today, Plt wnl Bleeding scan : bleeding originate from sigmoid pulling in rectum CT: Mild diverticulosis. No free air. No colitis Flex sigmoidoscope up to 40cm: Diverticulosis, blood clot, no active bleeding. no mass, no hemorrhoidal bleeding. -MOnitor bleeding -PRBC as needed -Platelet as needed -GI on board: Repeat c-scope -We will closely monitor Will DW Dr. Berry who is covering for Dr. Frank
[2016-11-30 09:20] LABS: INR 1.05 (0.93-1.08)
[2016-11-30] MEDS ORDERED: ELTROMBOPAG OLAMINE 75 MG PO SCH ×2 (10:00)
--- NOTE | 2016-11-30 10:37 | CP.CCUPN ---
<Luz Wong - Last Filed: 11/30/16 11:59> CCU Subjective - Physician Review Events Since Last Encounter (Free Text): 11/30/16 10:19 No BMs, no bleeding overnight Subjective (Free Text): 11/30/16 10:20 Critical care progress note for Dr. Negro Wong, PGY-1 Pt S & E at bedside. Pt reports no additional BMs overnight, no bleeding. Poor sleep (chronic). Tolerating CLD. Denies N/V/F/C, SOB, CP, palpitations, CARTY, lightheadedness, hematemesis, hematochezia. CCU Objective - Vital Signs / Intake & Output Intake and Output (Last 8hrs): Intake & Output 11/29/16 11/30/16 11/30/16 22:59 06:59 14:59 Intake Total 0 1440 Output Total 1000 Balance 0 440 Weight 90.265 kg Intake: IV 0 1440 Right Antecubital 0 1440 Output: Urine 1000 Urine, Voided 1000 Other: Voiding Method Urinal # Bowel Movements 1 - Physical Exam Head: Positive for: Atraumatic, Normocephalic Pupils: Positive for: PERRL Extroacular Muscles: Positive for: EOMI Conjunctiva: Positive for: Normal Mouth: Positive for: Moist Mucous Membranes, Normal Lips, Normal Tounge Pharnyx: Positive for: Normal Neck: Positive for: Normal Range of Motion Respiratory/Chest: Positive for: Clear to Auscultation, Good Air Exchange. Negative for: Respiratory Distress, Accessory Muscle Use Cardiovascular: Positive for: Normal S1, S2, Tachycardic. Negative for: Murmurs Abdomen: Positive for: Normal Bowel Sounds. Negative for: Tenderness, Distention, Peritoneal Signs Back: Positive for: Normal Inspection. Negative for: Paraspinal Tenderness Upper Extremity: Positive for: Normal Inspection, NORMAL PULSES. Negative for: Cyanosis, Edema Lower Extremity: Positive for: Normal Inspection, NORMAL PULSES. Negative for: Edema Neurological: Positive for: GCS=15, CN II-XII Intact, Speech Normal, Motor Func Grossly Intact Skin: Positive for: Warm, Dry, Normal Color. Negative for: Rashes Psychiatric: Positive for: Alert, Oriented x 3, Normal Insight, Normal Concentration - Medications Active Medications: Active Medications Generic Name Dose Route Start Last Admin Trade Name Freq PRN Reason Stop Dose Admin Home Med 1 unit 11/30/16 10:00 Home Med PO DAILY JHON Sodium Chloride 1,000 mls @ 100 mls/hr 11/29/16 08:15 11/30/16 06:04 Sodium Chloride 0.9% IV 100 mls/hr .Q10H JHON Administration Pantoprazole Sodium 40 mg in 100 mls @ 20 mls/hr 11/29/16 11:00 11/30/16 06: 14 Protonix 40mg Ivpb IVPB 20 mls/hr .Q5H JHON Administration Insulin Human Regular 0 units 11/29/16 22:00 11/29/16 22:00 Humulin R Med SC Not Given ACHS JHON Protocol - Patient Studies Lab Studies: Lab Studies 11/30/16 11/30/16 11/30/16 Range/Units 09:04 09:04 05:57 WBC 8.5 (4.5-11.0) 10^3/ul RBC 3.60 (3.5-6.1) 10^6/uL Hgb 9.4 L (14.0-18.0) gm/dL Hct 28.7 L (42.0-52.0) % MCV 79.7 L (80.0-105.0) fL MCH 26.1 (25.0-35.0) pg MCHC 32.8 (31.0-37.0) g/dl RDW 16.6 H (11.5-14.5) % Plt Count 98 L (120.0-450.0) 10^3/uL Gran % 79.8 H (50.0-68.0) % Lymph % (Auto) 11.9 L (22.0-35.0) % [place] % (Auto) 5.1 (1.0-6.0) % Eos % (Auto) 2.1 (1.5-5.0) % Baso % (Auto) 1.1 (0.0-3.0) % Gran # 6.76 H (1.4-6.5) Lymph # 1.0 L (1.2-3.4) [place] # 0.4 (0.1-0.6) Eos # 0.2 (0.0-0.7) Baso # 0.09 (0.0-2.0) K/mm3 PT 11.3 (9.9-11.8) Seconds INR 1.05 (0.93-1.08) Sodium (132-148) mmol/L Potassium (3.6-5.0) mmol/L Chloride (98-107) mmol/L Carbon Dioxide (21-33) mmol/L Anion Gap (10-20) BUN (7-21) mg/dL Creatinine (0.5-1.4) mg/dL Est GFR ( Amer) Est GFR (Non-Af Amer) POC Glucose (mg/dL) 225 H (65-110) mg/dL Random Glucose (70-110) mg/dL Calcium (8.4-10.5) mg/dL Phosphorus (2.5-4.5) mg/dL Magnesium (1.7-2.2) mg/dL Total Bilirubin (0.2-1.3) mg/dL AST (15-59) U/L ALT (7-56) U/L Alkaline Phosphatase (38-133) U/L Total Protein (5.8-8.3) g/dL Albumin (3.0-4.8) g/dL Globulin gm/dL Albumin/Globulin Ratio (1.1-1.8) 11/30/16 11/30/16 11/30/16 Range/Units 05:35 05:30 01:25 WBC 7.6 7.4 (4.5-11.0) 10^3/ul RBC 3.23 L 3.09 L (3.5-6.1) 10^6/uL Hgb 8.3 L 8.2 L (14.0-18.0) gm/dL Hct 25.7 L 24.7 L (42.0-52.0) % MCV 79.6 L 79.9 L (80.0-105.0) fL MCH 25.7 26.5 (25.0-35.0) pg MCHC 32.3 33.2 (31.0-37.0) g/dl RDW 16.6 H 16.4 H (11.5-14.5) % Plt Count 81 L 78 L (120.0-450.0) 10^3/uL Gran % 76.7 H 74.2 H (50.0-68.0) % Lymph % (Auto) 14.3 L 16.1 L (22.0-35.0) % [place] % (Auto) 6.4 H 7.4 H (1.0-6.0) % Eos % (Auto) 1.8 1.8 (1.5-5.0) % Baso % (Auto) 0.8 0.5 (0.0-3.0) % Gran # 5.83 5.49 (1.4-6.5) Lymph # 1.1 L 1.2 (1.2-3.4) [place] # 0.5 0.6 (0.1-0.6) Eos # 0.1 0.1 (0.0-0.7) Baso # 0.06 0.04 (0.0-2.0) K/mm3 PT (9.9-11.8) Seconds INR (0.93-1.08) Sodium 138 (132-148) mmol/L Potassium 4.3 (3.6-5.0) mmol/L Chloride 109 H (98-107) mmol/L Carbon Dioxide 25 (21-33) mmol/L Anion Gap 8 L (10-20) BUN 22 H (7-21) mg/dL Creatinine 1.1 (0.5-1.4) mg/dL Est GFR ( Amer) > 60 Est GFR (Non-Af Amer) > 60 POC Glucose (mg/dL) (65-110) mg/dL Random Glucose 189 H (70-110) mg/dL Calcium 8.4 (8.4-10.5) mg/dL Phosphorus 3.2 (2.5-4.5) mg/dL Magnesium 1.8 (1.7-2.2) mg/dL Total Bilirubin 0.6 (0.2-1.3) mg/dL AST 24 (15-59) U/L ALT 32 (7-56) U/L Alkaline Phosphatase 75 (38-133) U/L Total Protein 5.6 L (5.8-8.3) g/dL Albumin 3.1 (3.0-4.8) g/dL Globulin 2.5 gm/dL Albumin/Globulin Ratio 1.2 (1.1-1.8) 05/26/17 Range/Units 23:08 WBC (4.5-11.0) 10^3/ul RBC (3.5-6.1) 10^6/uL Hgb (14.0-18.0) gm/dL Hct (42.0-52.0) % MCV (80.0-105.0) fL MCH (25.0-35.0) pg MCHC (31.0-37.0) g/dl RDW (11.5-14.5) % Plt Count (120.0-450.0) 10^3/uL Gran % (50.0-68.0) % Lymph % (Auto) (22.0-35.0) % [place] % (Auto) (1.0-6.0) % Eos % (Auto) (1.5-5.0) % Baso % (Auto) (0.0-3.0) % Gran # (1.4-6.5) Lymph # (1.2-3.4) [place] # (0.1-0.6) Eos # (0.0-0.7) Baso # (0.0-2.0) K/mm3 PT (9.9-11.8) Seconds INR (0.93-1.08) Sodium (132-148) mmol/L Potassium (3.6-5.0) mmol/L Chloride (98-107) mmol/L Carbon Dioxide (21-33) mmol/L Anion Gap (10-20) BUN (7-21) mg/dL Creatinine (0.5-1.4) mg/dL Est GFR ( Amer) Est GFR (Non-Af Amer) POC Glucose (mg/dL) 190 H (65-110) mg/dL Random Glucose (70-110) mg/dL Calcium (8.4-10.5) mg/dL Phosphorus (2.5-4.5) mg/dL Magnesium (1.7-2.2) mg/dL Total Bilirubin (0.2-1.3) mg/dL AST (15-59) U/L ALT (7-56) U/L Alkaline Phosphatase (38-133) U/L Total Protein (5.8-8.3) g/dL Albumin (3.0-4.8) g/dL Globulin gm/dL Albumin/Globulin Ratio (1.1-1.8) Laboratory Results - last 24 hr 11/29/16 11/30/16 11/30/16 23:08 01:25 05:30 WBC 7.4 7.6 RBC 3.09 L 3.23 L Hgb 8.2 L 8.3 L Hct 24.7 L 25.7 L MCV 79.9 L 79.6 L MCH 26.5 25.7 MCHC 33.2 32.3 RDW 16.4 H 16.6 H Plt Count 78 L 81 L Gran % 74.2 H 76.7 H Lymph % (Auto) 16.1 L 14.3 L [place] % (Auto) 7.4 H 6.4 H Eos % (Auto) 1.8 1.8 Baso % (Auto) 0.5 0.8 Gran # 5.49 5.83 Lymph # 1.2 1.1 L [place] # 0.6 0.5 Eos # 0.1 0.1 Baso # 0.04 0.06 PT INR Sodium Potassium Chloride Carbon Dioxide Anion Gap BUN Creatinine Est GFR ( Amer) Est GFR (Non-Af Amer) POC Glucose (mg/dL) 190 H Random Glucose Calcium Phosphorus Magnesium Total Bilirubin AST ALT Alkaline Phosphatase Total Protein Albumin Globulin Albumin/Globulin Ratio 11/30/16 11/30/16 11/30/16 05:35 05:57 09:04 WBC 8.5 RBC 3.60 Hgb 9.4 L Hct 28.7 L MCV 79.7 L MCH 26.1 MCHC 32.8 RDW 16.6 H Plt Count 98 L Gran % 79.8 H Lymph % (Auto) 11.9 L [place] % (Auto) 5.1 Eos % (Auto) 2.1 Baso % (Auto) 1.1 Gran # 6.76 H Lymph # 1.0 L [place] # 0.4 Eos # 0.2 Baso # 0.09 PT INR Sodium 138 Potassium 4.3 Chloride 109 H Carbon Dioxide 25 Anion Gap 8 L BUN 22 H Creatinine 1.1 Est GFR ( Amer) > 60 Est GFR (Non-Af Amer) > 60 POC Glucose (mg/dL) 225 H Random Glucose 189 H Calcium 8.4 Phosphorus 3.2 Magnesium 1.8 Total Bilirubin 0.6 AST 24 ALT 32 Alkaline Phosphatase 75 Total Protein 5.6 L Albumin 3.1 Globulin 2.5 Albumin/Globulin Ratio 1.2 11/30/16 09:04 WBC RBC Hgb Hct MCV MCH MCHC RDW Plt Count Gran % Lymph % (Auto) [place] % (Auto) Eos % (Auto) Baso % (Auto) Gran # Lymph # [place] # Eos # Baso # PT 11.3 INR 1.05 Sodium Potassium Chloride Carbon Dioxide Anion Gap BUN Creatinine Est GFR ( Amer) Est GFR (Non-Af Amer) POC Glucose (mg/dL) Random Glucose Calcium Phosphorus Magnesium Total Bilirubin AST ALT Alkaline Phosphatase Total Protein Albumin Globulin Albumin/Globulin Ratio Fingerstick Blood Sugar Results: 225 Review of Systems - Review of Systems All systems: reviewed and no additional remarkable complaints except - Constitutional Constitutional: absent: Fever, Chills - EENT Eyes: Blurred Vision (Chronic) Nose/Mouth/Throat: UNREMARKABLE - Cardiovascular Cardiovascular: UNREMARKABLE. absent: Chest Pain, Lightheadedness - Gastrointestinal Gastrointestinal: UNREMARKABLE. absent: Abdominal Pain, Diarrhea, Hematochezia , Loose Stools, Melena, Nausea, Vomiting - Musculoskeletal Musculoskeletal: UNREMARKABLE - Integumentary Integumentary: UNREMARKABLE - Neurological Neurological: UNREMARKABLE. absent: Dizziness, Headaches Critical Care Progress Note - Extremities/Vascular Does the Patient have a Central Venous Catheter?: No Does the Patient need a Central Venous Catheter?: No Does the Patient have a Ash Catheter?: No Does the Patient need a Ash Catheter?: No - Prophylaxis GI Prophylaxis GI: PPI - Prophylaxis DVT Prophylaxis DVT: Not Indicated (bleeding) - Nutrition Nutrition: Nutrition Category Date Time Status Liquid Diet [DIET] Diets 11/30/16 Breakfast Ordered Assessment/Plan - Assessment and Plan (Free Text) Assessment: 61M w/PMH sig for DM, diabetic neuropathy, restless leg syndrome, chronic thrombocytopenia on Promacta admitted to ICU for acute rectal bleeding and chronic thrombocytopenia. Pt currently stable, continuing to monitor H/H, if continues to be stable will consider transferring to floor this afternoon/ evening. Plan: Neuro AO x3 Stable CVS Episodes of tachycardia Likely 2/2 acute GIB- resolving BP WNP No cardiac hx Monitor Pulm Stable 100% on RA Monitor GI CLD Diet to be advanced as per GI Cont Protonix drip GI consulted- s/p sigmoidoscopy- no active bleeding Surgery recs- Monitor for bleeding, blood PRN, Plts PRN, repeat C-scope Nephro Electrolytes WNL BUN 22 from 38 Cr 1.1 from 1.5 Monitor Able to urinate on own Endo DM ISS Accuchecks Blood sugar 225 Target euglycemia as per NICE sugar trial ID Afebrile No Leukocytosis U/A trace protein Monitor Heme Chronic thrombocytopenia on Promacta Re-started Promacta Acute GI bleed- resolved Hgb 9.4 from 8.3 Hct 28.7 from 25.7 Plts 98 from 81 On Protonix drip PT 11.3 from 12 INR 1.05 from 1.11 Type O positive Serial CBCs Q4H increased to Q8H Blood transfusion PRN Monitor Heme following MSK Ambulate SCDs GI/DVT ppx Contraindications to VTE ppx due to acute GIB On Protonix drip SCDs Dispo Currently stable Transfuse blood PRN Hgb<7 Will consider transferring to floor later today if continues to be stable DW attending - Date & Time Date: 11/30/16 Time: 07:45 <Paula STEVENS,Rios H - Last Filed: 11/30/16 13:37> CCU Objective - Vital Signs / Intake & Output Vital Signs (Last 4 hours): Vital Signs Temp Pulse Resp BP Pulse Ox 11/30/16 12:00 111 H 11/30/16 11:44 98.4 F 11/30/16 11:30 101 H 25 H 100 11/30/16 11:20 120 H 31 H 100 11/30/16 11:10 98 H 22 100 11/30/16 11:00 98 H 17 133/89 100 11/30/16 10:50 101 H 21 100 11/30/16 10:40 99 H 18 96 11/30/16 10:30 104 H 99 11/30/16 10:20 97 H 10 L 11/30/16 10:10 97 H 42 H 98 11/30/16 10:00 102 H 22 132/86 97 11/30/16 09:50 98 H 22 98 11/30/16 09:40 97 H 18 98 Intake and Output (Last 8hrs): Intake & Output 11/29/16 11/30/16 11/30/16 22:59 06:59 14:59 Intake Total 0 1440 Output Total 1000 Balance 0 440 Weight 199 lb Intake: IV 0 1440 Right Antecubital 0 1440 Output: Urine 1000 Urine, Voided 1000 Other: Voiding Method Urinal Urinal # Bowel Movements 1 - Medications Active Medications: Active Medications Generic Name Dose Route Start Last Admin Trade Name Madie PRN Reason Stop Dose Admin Acetaminophen 650 mg 11/30/16 12:36 Tylenol 325mg Tab PO Q6H PRN Pain, Mild (1-3) Home Med 1 unit 11/30/16 10:00 Home Med PO DAILY JHON Pantoprazole Sodium 40 mg in 100 mls @ 20 mls/hr 11/29/16 11:00 11/30/16 12: 02 Protonix 40mg Ivpb IVPB 20 mls/hr .Q5H JHON Administration Insulin Human Regular 0 units 11/29/16 22:00 11/30/16 12:04 Humulin R Med SC 7 units ACHS JHON Administration Protocol - Patient Studies Lab Studies: Lab Studies 11/30/16 11/30/16 11/30/16 Range/Units 09:04 09:04 05:57 WBC 8.5 (4.5-11.0) 10^3/ul RBC 3.60 (3.5-6.1) 10^6/uL Hgb 9.4 L (14.0-18.0) gm/dL Hct 28.7 L (42.0-52.0) % MCV 79.7 L (80.0-105.0) fL MCH 26.1 (25.0-35.0) pg MCHC 32.8 (31.0-37.0) g/dl RDW 16.6 H (11.5-14.5) % Plt Count 98 L (120.0-450.0) 10^3/uL Gran % 79.8 H (50.0-68.0) % Lymph % (Auto) 11.9 L (22.0-35.0) % [place] % (Auto) 5.1 (1.0-6.0) % Eos % (Auto) 2.1 (1.5-5.0) % Baso % (Auto) 1.1 (0.0-3.0) % Gran # 6.76 H (1.4-6.5) Lymph # 1.0 L (1.2-3.4) [place] # 0.4 (0.1-0.6) Eos # 0.2 (0.0-0.7) Baso # 0.09 (0.0-2.0) K/mm3 PT 11.3 (9.9-11.8) Seconds INR 1.05 (0.93-1.08) Sodium (132-148) mmol/L Potassium (3.6-5.0) mmol/L Chloride (98-107) mmol/L Carbon Dioxide (21-33) mmol/L Anion Gap (10-20) BUN (7-21) mg/dL Creatinine (0.5-1.4) mg/dL Est GFR ( Amer) Est GFR (Non-Af Amer) POC Glucose (mg/dL) 225 H (65-110) mg/dL Random Glucose (70-110) mg/dL Calcium (8.4-10.5) mg/dL Phosphorus (2.5-4.5) mg/dL Magnesium (1.7-2.2) mg/dL Total Bilirubin (0.2-1.3) mg/dL AST (15-59) U/L ALT (7-56) U/L Alkaline Phosphatase (38-133) U/L Total Protein (5.8-8.3) g/dL Albumin (3.0-4.8) g/dL Globulin gm/dL Albumin/Globulin Ratio (1.1-1.8) 11/30/16 11/30/16 11/30/16 Range/Units 05:35 05:30 01:25 WBC 7.6 7.4 (4.5-11.0) 10^3/ul RBC 3.23 L 3.09 L (3.5-6.1) 10^6/uL Hgb 8.3 L 8.2 L (14.0-18.0) gm/dL Hct 25.7 L 24.7 L (42.0-52.0) % MCV 79.6 L 79.9 L (80.0-105.0) fL MCH 25.7 26.5 (25.0-35.0) pg MCHC 32.3 33.2 (31.0-37.0) g/dl RDW 16.6 H 16.4 H (11.5-14.5) % Plt Count 81 L 78 L (120.0-450.0) 10^3/uL Gran % 76.7 H 74.2 H (50.0-68.0) % Lymph % (Auto) 14.3 L 16.1 L (22.0-35.0) % [place] % (Auto) 6.4 H 7.4 H (1.0-6.0) % Eos % (Auto) 1.8 1.8 (1.5-5.0) % Baso % (Auto) 0.8 0.5 (0.0-3.0) % Gran # 5.83 5.49 (1.4-6.5) Lymph # 1.1 L 1.2 (1.2-3.4) [place] # 0.5 0.6 (0.1-0.6) Eos # 0.1 0.1 (0.0-0.7) Baso # 0.06 0.04 (0.0-2.0) K/mm3 PT (9.9-11.8) Seconds INR (0.93-1.08) Sodium 138 (132-148) mmol/L Potassium 4.3 (3.6-5.0) mmol/L Chloride 109 H (98-107) mmol/L Carbon Dioxide 25 (21-33) mmol/L Anion Gap 8 L (10-20) BUN 22 H (7-21) mg/dL Creatinine 1.1 (0.5-1.4) mg/dL Est GFR ( Amer) > 60 Est GFR (Non-Af Amer) > 60 POC Glucose (mg/dL) (65-110) mg/dL Random Glucose 189 H (70-110) mg/dL Calcium 8.4 (8.4-10.5) mg/dL Phosphorus 3.2 (2.5-4.5) mg/dL Magnesium 1.8 (1.7-2.2) mg/dL Total Bilirubin 0.6 (0.2-1.3) mg/dL AST 24 (15-59) U/L ALT 32 (7-56) U/L Alkaline Phosphatase 75 (38-133) U/L Total Protein 5.6 L (5.8-8.3) g/dL Albumin 3.1 (3.0-4.8) g/dL Globulin 2.5 gm/dL Albumin/Globulin Ratio 1.2 (1.1-1.8) //17 Range/Units 23:08 WBC (4.5-11.0) 10^3/ul RBC (3.5-6.1) 10^6/uL Hgb (14.0-18.0) gm/dL Hct (42.0-52.0) % MCV (80.0-105.0) fL MCH (25.0-35.0) pg MCHC (31.0-37.0) g/dl RDW (11.5-14.5) % Plt Count (120.0-450.0) 10^3/uL Gran % (50.0-68.0) % Lymph % (Auto) (22.0-35.0) % [place] % (Auto) (1.0-6.0) % Eos % (Auto) (1.5-5.0) % Baso % (Auto) (0.0-3.0) % Gran # (1.4-6.5) Lymph # (1.2-3.4) [place] # (0.1-0.6) Eos # (0.0-0.7) Baso # (0.0-2.0) K/mm3 PT (9.9-11.8) Seconds INR (0.93-1.08) Sodium (132-148) mmol/L Potassium (3.6-5.0) mmol/L Chloride (98-107) mmol/L Carbon Dioxide (21-33) mmol/L Anion Gap (10-20) BUN (7-21) mg/dL Creatinine (0.5-1.4) mg/dL Est GFR ( Amer) Est GFR (Non-Af Amer) POC Glucose (mg/dL) 190 H (65-110) mg/dL Random Glucose (70-110) mg/dL Calcium (8.4-10.5) mg/dL Phosphorus (2.5-4.5) mg/dL Magnesium (1.7-2.2) mg/dL Total Bilirubin (0.2-1.3) mg/dL AST (15-59) U/L ALT (7-56) U/L Alkaline Phosphatase (38-133) U/L Total Protein (5.8-8.3) g/dL Albumin (3.0-4.8) g/dL Globulin gm/dL Albumin/Globulin Ratio (1.1-1.8) Laboratory Results - last 24 hr 11/29/16 11/30/16 11/30/16 23:08 01:25 05:30 WBC 7.4 7.6 RBC 3.09 L 3.23 L Hgb 8.2 L 8.3 L Hct 24.7 L 25.7 L MCV 79.9 L 79.6 L MCH 26.5 25.7 MCHC 33.2 32.3 RDW 16.4 H 16.6 H Plt Count 78 L 81 L Gran % 74.2 H 76.7 H Lymph % (Auto) 16.1 L 14.3 L [place] % (Auto) 7.4 H 6.4 H Eos % (Auto) 1.8 1.8 Baso % (Auto) 0.5 0.8 Gran # 5.49 5.83 Lymph # 1.2 1.1 L [place] # 0.6 0.5 Eos # 0.1 0.1 Baso # 0.04 0.06 PT INR Sodium Potassium Chloride Carbon Dioxide Anion Gap BUN Creatinine Est GFR ( Amer) Est GFR (Non-Af Amer) POC Glucose (mg/dL) 190 H Random Glucose Calcium Phosphorus Magnesium Total Bilirubin AST ALT Alkaline Phosphatase Total Protein Albumin Globulin Albumin/Globulin Ratio 11/30/16 11/30/16 11/30/16 05:35 05:57 09:04 WBC 8.5 RBC 3.60 Hgb 9.4 L Hct 28.7 L MCV 79.7 L MCH 26.1 MCHC 32.8 RDW 16.6 H Plt Count 98 L Gran % 79.8 H Lymph % (Auto) 11.9 L [place] % (Auto) 5.1 Eos % (Auto) 2.1 Baso % (Auto) 1.1 Gran # 6.76 H Lymph # 1.0 L [place] # 0.4 Eos # 0.2 Baso # 0.09 PT INR Sodium 138 Potassium 4.3 Chloride 109 H Carbon Dioxide 25 Anion Gap 8 L BUN 22 H Creatinine 1.1 Est GFR ( Amer) > 60 Est GFR (Non-Af Amer) > 60 POC Glucose (mg/dL) 225 H Random Glucose 189 H Calcium 8.4 Phosphorus 3.2 Magnesium 1.8 Total Bilirubin 0.6 AST 24 ALT 32 Alkaline Phosphatase 75 Total Protein 5.6 L Albumin 3.1 Globulin 2.5 Albumin/Globulin Ratio 1.2 11/30/16 09:04 WBC RBC Hgb Hct MCV MCH MCHC RDW Plt Count Gran % Lymph % (Auto) [place] % (Auto) Eos % (Auto) Baso % (Auto) Gran # Lymph # [place] # Eos # Baso # PT 11.3 INR 1.05 Sodium Potassium Chloride Carbon Dioxide Anion Gap BUN Creatinine Est GFR ( Amer) Est GFR (Non-Af Amer) POC Glucose (mg/dL) Random Glucose Calcium Phosphorus Magnesium Total Bilirubin AST ALT Alkaline Phosphatase Total Protein Albumin Globulin Albumin/Globulin Ratio Critical Care Progress Note - Nutrition Nutrition: Nutrition Category Date Time Status Liquid Diet [DIET] Diets 11/30/16 Breakfast Ordered Attending/Attestation - Attestation I have personally seen and examined this patient.: Yes I have fully participated in the care of the patient.: Yes I have reviewed all pertinent clinical information: Yes Notes (Text): 11/30/16 13:34 61 y/o M admitted with lower GI bleed. S/P Flex SIG without finding an acute source. Possible pooling of blood. CBC q4-6 hrs shows stable hgb. Vitals are WNL. Out of bed to chair.No further bleeding noted. Continue on PPI BID ITP hx, with dropping platelets. Promacta restarted. Platelets on hold If HGB <7, transfuse PRBC. dvt p SCD cc time 45 min
--- NOTE | 2016-11-30 15:38 | PN ---
DATE: 11/30/2016 This is the patient's hospital visit in the intensive care unit. For Dr. Estevez. SUBJECTIVE: The patient is a 61-year-old male seen lying awake in bed, at the bedside, admitted for severe rectal bleeding with a hemoglobin drop from 10.9-8.0. He was then transfused 1 unit of p acked cells with a hemoglobin today of 9.4, status post colonoscopy with Dr. Hardy who could not i dentify a bleeding site despite advancing the colonoscope to 40 cm with extensive diverticulosis note d with the testing limited due to large amount of blood and clot in diverticuli. He reports no activ e bleeding in spite of vigorous lavage with clotted blood noted. The patient is now resting comforta blair with CBC to be checked later this afternoon. PHYSICAL EXAMINATION: VITAL SIGNS: Temperature 98.4, pulse 111, respirations 25, blood pressure 133/89 with a pulse ox of 100%. HEENT: Unremarkable. Tongue is moist and midline. NECK: Supple. HEART: Tachy rate, regular rhythm. LUNGS: Clear. ABDOMEN: Soft to gentle palpation. EXTREMITIES: No edema. SKIN: Warm, dry and clear. NEUROLOGIC: Awake, alert, and oriented x 3. LABORATORY DATA: The patient's labs were done. White blood cell count of 8.5 down from 15.0 yesterd ay, hemoglobin 9.4, up from 8.0 yesterday after transfusion of 1 unit packed cells, hematocrit 28.7, platelet count of 98,000. INR of 1.05. Chem panel showing a chloride of 109, BUN of 22, nonfasting glucose of 225, total protein 5.6. ASSESSMENT AND PLAN: Gastrointestinal bleed, symptomatic anemia requiring transfusion, history of hy pertension, history of severe thrombocytopenia requiring IV gamma globulin with steroids with the pat ient on Promacta, which will be held with the patient's labs to be monitored serially and clinically with surgical and gastrointestinal consultants' evaluations appreciated. We will monitor clinically and with labs. James Martinez MD cc: [id number] TT: 11/30/2016 15:37:37 Confirmation # [id number] Dictation # [id number] rn
[2016-11-30 17:12] LABS: ADD MANUAL DIFF? NO
[2016-11-30 17:53] LABS: BASO # 0.06 K/mm3 (0.0-2.0); BASO % 0.8 % (0.0-3.0); EOS # 0.2 (0.0-0.7); GRAN % 77.5 % (50.0-68.0); HEMATOCRIT 26.1 % (42.0-52.0); LYMPH # 1.1 (1.2-3.4); LYMPH % 13.7 % (22.0-35.0); MEAN CELL VOLUME 79.8 fL (80.0-105.0); MEAN CORPUSCULAR HEMOGLOBIN 25.7 pg (25.0-35.0); MEAN CORPUSCULAR HGB CONC 32.2 g/dl (31.0-37.0); MONO # 0.5 (0.1-0.6); PLATELET COUNT 77 10^3/uL (120.0-450.0); RED CELL DISTRIBUTION WIDTH 16.7 % (11.5-14.5); WHITE BLOOD COUNT 7.9 10^3/ul (4.5-11.0)
--- NOTE | 2016-11-30 18:46 | HP ---
HISTORY OF PRESENT ILLNESS: The patient is a 61-year-old white male who is in the intensive care uni t due to a bright red rectal bleed. PAST MEDICAL HISTORY: Remarkable for hypertension and congestive heart failure. The patient also cueva s a history of anxiety. ALLERGIES: No known allergies. HOME MEDICATIONS: Requip, Zaroxolyn, Glucophage, lisinopril, Prevacid, Lasix, Promacta, amitriptylin e and Xanax. REVIEW OF SYSTEMS: Apart from no bright red rectal bleeding is unremarkable. The patient had an episode of rectal bleeding in the Emergency Room. He was seen by Dr. Robison. A bleeding scan was done, which showed rectal bleeding in the rectum. He was subsequently admitted t o the ICU for monitoring of hemoglobin and hematocrits. The review of systems is unremarkable except for the bright red rectal bleed. PHYSICAL EXAMINATION: VITAL SIGNS: Temperature of 98.4, pulse rate of 98, respiratory rate of 25 with an O2 saturation of 100% on room air. HEENT: PERRLA, EOMI with no icterus present. NECK: Supple with a full range of motion. ____ LUNGS: Clear to auscultation and percussion bilaterally. HEART: Shows a regular rate and rhythm. No murmurs, rubs, or gallops. ABDOMEN: Soft, it is nontender. There are no peritoneal signs. Bowel sounds are normoactive. EXTREMITIES: Show no edema, no cyanosis. NEUROLOGIC: Cranial nerves II-XII are intact. Motor function is grossly intact. The patient is kecia rt and oriented x 3. LABORATORY VALUES: A hemoglobin of 10.9 with hematocrit of 34.2 on admission. Today, hemoglobin of 9.4 with a hematocrit of 28.7. Chemistry is essentially unremarkable. BUN 22, creatinine of 1.1, ra ndom glucose of 189. IMPRESSION: 1. Rectal bleed. 2. Diabetes. 3. Hypertension. 4. Anxiety. The patient had a flexible sigmoidoscopy, there was extensive diverticulosis encountered and there wa s blood and clot and a large diverticulum. There is no active bleeding noticed in spite of vigorous lavage. We will continue to monitor the patient in the intensive care unit. If stable, will transfe r to the floor and possibly discharge home. Cipriano Martinez MD cc: [id number] TT: 11/30/2016 18:44:41 jn
[2016-11-30 23:36] LABS: ADD MANUAL DIFF? NO
[2016-11-30 23:47] LABS: BASO # 0.06 K/mm3 (0.0-2.0); BASO % 0.9 % (0.0-3.0); EOS # 0.2 (0.0-0.7); EOS % 2.9 % (1.5-5.0); GRAN # 5.06 (1.4-6.5); GRAN % 73.7 % (50.0-68.0); LYMPH # 1.1 (1.2-3.4); LYMPH % 16.2 % (22.0-35.0); MEAN CELL VOLUME 79.2 fL (80.0-105.0); MEAN CORPUSCULAR HEMOGLOBIN 26.4 pg (25.0-35.0); MEAN CORPUSCULAR HGB CONC 33.3 g/dl (31.0-37.0); MONO # 0.4 (0.1-0.6); MONO % 6.3 % (1.0-6.0); PLATELET COUNT 70 10^3/uL (120.0-450.0); RED CELL DISTRIBUTION WIDTH 16.6 % (11.5-14.5); WHITE BLOOD COUNT 6.9 10^3/ul (4.5-11.0)
[2016-12-01] MEDS: Pantoprazole 40mg/100ml IVPB 40 MG/100 ML BAG IVPB SCH ×3 (03:59→12:13)
[2016-12-01 07:02] LABS: ADD MANUAL DIFF? NO
[2016-12-01 07:06] LABS: BASO # 0.06 K/mm3 (0.0-2.0); BASO % 0.7 % (0.0-3.0); EOS # 0.2 (0.0-0.7); EOS % 2.8 % (1.5-5.0); GRAN % 79.5 % (50.0-68.0); HEMATOCRIT 25.5 % (42.0-52.0); LYMPH # 0.8 (1.2-3.4); LYMPH % 9.9 % (22.0-35.0); MEAN CELL VOLUME 79.4 fL (80.0-105.0); MEAN CORPUSCULAR HEMOGLOBIN 26.2 pg (25.0-35.0); MEAN CORPUSCULAR HGB CONC 32.9 g/dl (31.0-37.0); MONO # 0.6 (0.1-0.6); MONO % 7.1 % (1.0-6.0); PLATELET COUNT 80 10^3/uL (120.0-450.0); RED CELL DISTRIBUTION WIDTH 16.7 % (11.5-14.5); WHITE BLOOD COUNT 8.2 10^3/ul (4.5-11.0)
[2016-12-01 07:25] LABS: ALB/GLOB RATIO 1.3 (1.1-1.8); ALKALINE PHOSPHATASE 83 U/L (38-133); ALT/SGPT 30 U/L (7-56); AST/SGOT 24 U/L (15-59); BILIRUBIN,TOTAL 0.6 mg/dL (0.2-1.3); BLOOD UREA NITROGEN 12 mg/dL (7-21); CARBON DIOXIDE 26 mmol/L (21-33); CHLORIDE 109 mmol/L (98-107); GFR AFRICAN-AMERICAN > 60; GLUCOSE,RANDOM 169 mg/dL (70-110); MAGNESIUM 1.7 mg/dL (1.7-2.2); PHOSPHOROUS 3.5 mg/dL (2.5-4.5); POTASSIUM 4.1 mmol/L (3.6-5.0); SODIUM 139 mmol/L (132-148); TOTAL PROTEIN 6.2 g/dL (5.8-8.3)
[2016-12-01] MEDS: Insulin Reg-MEDIUM-Coverage SC SCH ×4 (07:57→22:00)
--- NOTE | 2016-12-01 08:34 | PN ---
DATE: 11/30/2016 SUBJECTIVE: This patient was seen and evaluated earlier today. Discussed with Dr. Martinez and also with the zoning engineer. PHYSICAL EXAMINATION: VITAL SIGNS: Temperature is 98, blood pressure is 138/59, pulse 63. HEENT: Atraumatic, anicteric. NECK: Supple. HEART: S1, S2 heard. LUNGS: Bilateral air entry present. ABDOMEN: Soft. There is no tenderness. EXTREMITIES: No edema, no cyanosis. NEUROLOGIC: Alert, oriented. Moves all the extremities. LABORATORY DATA: Hemoglobin remains stable at 9.2, hematocrit 29.1, WBC is 10.6 , platelet is 425. BUN 43, creatinine 1.6. IMPRESSION/PLAN: This 61-year-old patient admitted with GI bleeding, bright red blood per rectum. Bleeding scan shows the positivity of the bleeding in the rectal area; however, closely reviewed was suggestive of bleeding from the duodenal area dropping down to the rectum. We will discuss with the surgical team. This 61-year-old patient had massive lower GI bleeding, probably from the sigmoid colon area, status post flexible sigmoidoscopy. Bleeding scan suggestive of rectal bleeding that is probably pooled blood. Will continue the clear liquid diet. We will prepare the patient for a colonoscopy to be prior to the discharge. The patient was thrombocytopenic, was on Promacta which has been discontinued at the present time. Followup for the platelet count. We will prepare the patient for a colonoscopy slowly for continued bleeding. Hemoglobin continues to be stable and no active bleeding. Thank you very much for allowing us to participate in the care of the patient. Kiko Hardy MD cc: [id number] TT: 12/01/2016 08:33:49 Confirmation # [id number] Dictation # [id number] nikki ROSA
--- NOTE | 2016-12-01 08:47 | CP.PCM.PN ---
Subjective - Date & Time of Evaluation Date of Evaluation: 12/01/16 Time of Evaluation: 08:43 - Subjective Subjective: Surgery: Dr. Berry Pt seen and examined. No acute events overnight. Pt was transferred out of the ICU. States he's feeling better and denies abdominal pain. Pt had a BM with some blood which was most likely old clotted blood. Tolerating diet. Denies N/V , F/C. Objective - Vital Signs/Intake and Output Vital Signs (last 24 hours): Temp Pulse Resp BP Pulse Ox 98.7 F 90 20 130/88 96 12/01/16 00:00 12/01/16 06:00 12/01/16 00:00 12/01/16 00:00 12/01/16 00:00 Intake and Output: 12/01/16 12/01/16 06:59 18:59 Intake Total 177 Balance 177 - Medications Medications: Current Medications Acetaminophen (Tylenol 325mg Tab) 650 mg PO Q6H PRN PRN Reason: Pain, Mild (1-3) Home Med (Home Med) 1 unit PO DAILY [facility] Pantoprazole Sodium (Protonix 40mg Ivpb) 40 mg in 100 mls @ 20 mls/hr IVPB .Q5H [facility] Last Admin: 12/01/16 03:59 Dose: 20 mls/hr Insulin Human Regular (Humulin R Med) 0 units SC ACHS [facility] PRN Reason: Protocol Last Admin: 12/01/16 07:57 Dose: 3 units - Labs Labs: 12/01/16 06:55 12/01/16 06:55 PT 11.3 Seconds (9.9-11.8) 11/30/16 09:04 INR 1.05 (0.93-1.08) 11/30/16 09:04 APTT 26.0 Seconds (23.7-30.8) 11/29/16 10:05 - Constitutional Appears: Well, No Acute Distress - Head Exam Head Exam: ATRAUMATIC, NORMOCEPHALIC - ENT Exam ENT Exam: Mucous Membranes Moist - Respiratory Exam Respiratory Exam: NORMAL BREATHING PATTERN - Cardiovascular Exam Cardiovascular Exam: RRR - GI/Abdominal Exam GI & Abdominal Exam: Soft. absent: Distended, Tenderness - Neurological Exam Neurological Exam: Alert, Awake, Oriented x3 - Skin Skin Exam: Dry, Warm Assessment and Plan - Assessment and Plan (Free Text) Assessment: 61M with GI bleed Plan: - H/H remains stable - monitor bowel function for further bleeding - as per pt, GI is planning to do another colonoscopy to get a better look at the colon - no surgical intervention needed at this time - d/w Dr. Jamal Black, PGY-2 Surgery
[2016-12-01] MEDS: ELTROMBOPAG OLAMINE 75 MG PO SCH (09:21)
--- NOTE | 2016-12-01 14:48 | CP.PCM.PN ---
<ReynaldoTay - Last Filed: 12/01/16 14:45> Subjective - Date & Time of Evaluation Date of Evaluation: 12/01/16 Time of Evaluation: 14:45 - Subjective Subjective: GI for Dr. Hardy Pt s&e w attending. IMTIAZ. Reports residual BM w clot. Denies F/C?N/V/D/CP/SOB. Tolerating diet. Objective - Vital Signs/Intake and Output Vital Signs (last 24 hours): Temp Pulse Resp BP Pulse Ox 99.0 F 97 H 20 116/74 97 12/01/16 06:00 12/01/16 06:00 12/01/16 06:00 12/01/16 06:00 12/01/16 06:00 Intake and Output: 12/01/16 12/01/16 06:59 18:59 Intake Total 177 Balance 177 - Medications Medications: Current Medications Acetaminophen (Tylenol 325mg Tab) 650 mg PO Q6H PRN PRN Reason: Pain, Mild (1-3) Home Med (Home Med) 1 unit PO DAILY [facility] Last Admin: 12/01/16 09:21 Dose: 1 unit Insulin Human Regular (Humulin R Med) 0 units SC ACHS [facility] PRN Reason: Protocol Last Admin: 12/01/16 12:11 Dose: 5 units Pantoprazole Sodium (Protonix Inj) 40 mg IVP Q12 [facility] Polyethylene Glycol/Electrolytes (Golytely) 4,000 ml PO ONCE ONE Stop: 12/02/16 08:01 - Labs Labs: 12/01/16 06:55 12/01/16 06:55 PT 11.3 Seconds (9.9-11.8) 11/30/16 09:04 INR 1.05 (0.93-1.08) 11/30/16 09:04 APTT 26.0 Seconds (23.7-30.8) 11/29/16 10:05 - Constitutional Appears: No Acute Distress - Head Exam Head Exam: ATRAUMATIC, NORMAL INSPECTION, NORMOCEPHALIC - Eye Exam Eye Exam: EOMI, Normal appearance, PERRL Pupil Exam: NORMAL ACCOMODATION, PERRL - ENT Exam ENT Exam: Mucous Membranes Moist, Normal Exam - Neck Exam Neck Exam: Full ROM, Normal Inspection. absent: Lymphadenopathy - Respiratory Exam Respiratory Exam: Clear to Ausculation Bilateral, NORMAL BREATHING PATTERN - Cardiovascular Exam Cardiovascular Exam: REGULAR RHYTHM, +S1, +S2. absent: Murmur - GI/Abdominal Exam GI & Abdominal Exam: Soft, Normal Bowel Sounds. absent: Distended, Firm, Guarding, Rigid, Tenderness - Extremities Exam Extremities Exam: Full ROM, Normal Capillary Refill, Normal Inspection. absent : Joint Swelling, Pedal Edema - Back Exam Back Exam: NORMAL INSPECTION - Neurological Exam Neurological Exam: Alert, Awake, CN II-XII Intact, Normal Gait, Oriented x3 - Psychiatric Exam Psychiatric exam: Normal Affect, Normal Mood - Skin Skin Exam: Dry, Intact, Normal Color, Warm Assessment and Plan - Assessment and Plan (Free Text) Assessment: 61 M w PMH of ITP came with GI bleed 5 epiosed of BRBPR: Improving. Hgb 8.4 today, Plt 80 Bleeding scan : bleeding originate from sigmoid pulling in rectum CT: Mild diverticulosis. No free air. No colitis Flex sigmoidoscope up to 40cm: Diverticulosis, blood clot, no active bleeding. no mass, no hemorrhoidal bleeding. -Manual platelet ct -f/u H/H -MOnitor bleeding -PRBC as needed -Platelet as needed -Repeat c-scope and EGD on : NPO aftermidnight on fri night. Bowel prep on Fri -We will closely monitor [facility] ST Dr <Kiko Hardy V - Last Filed: 01/16/17 21:02> Objective - Vital Signs/Intake and Output Vital Signs (last 24 hours): Temp Pulse Resp BP Pulse Ox 98.3 F 90 17 141/91 H 98 12/04/16 07:52 12/04/16 07:52 12/04/16 07:52 12/04/16 07:52 12/04/16 07:52 - Labs Labs: 12/04/16 07:00 12/04/16 07:00 PT 11.3 Seconds (9.9-11.8) 11/30/16 09:04 INR 1.05 (0.93-1.08) 11/30/16 09:04 APTT 26.0 Seconds (23.7-30.8) 11/29/16 10:05 Assessment and Plan - Assessment and Plan (Free Text) Assessment: Addendum to the GI progress note of Dr. Jacobs. Patient seen, examined, chart reviewed. Agree with plan as laid above. Plan for endoscope and colon. Will continue to follow closely.
--- NOTE | 2016-12-01 15:46 | PN ---
DATE: 12/01/[address] Monte ____. This is the patient's hospital visit on the medical floor. For Dr. Estevez. SUBJECTIVE: The patient is a 61-year-old male seen sitting up in a chair, transferred from the [facility], admitted for severe rectal bleed with hemoglobin dropping from 10.9to 8.0. Transfuse d 1 unit of packed red blood cells with a repeat lab done today showing a hemoglobin of 8.4. After c onversation with Dr. Estevez and Dr. Hardy, we will recommend continuing the patient on liquid t with restart of his Promacta for his thrombocytopenia. Will also recommend transfusing 2 units of packed red blood cells in preparation for the patient's anticipated gastrointestinal workup to be don e. The patient still has residual blood in his bowel movement as per the pillow filler who reports it is likely old clotted blood. PHYSICAL EXAMINATION: VITAL SIGNS: Temperature 99, pulse 97, respirations 20, blood pressure 116/74, pulse ox 97%. HEENT: Unremarkable. NECK: Supple. HEART: Tachy rate, regular rhythm. LUNGS: Clear. ABDOMEN: Soft. EXTREMITIES: No edema. SKIN: Warm, dry and clear. NEUROLOGIC: Awake, alert, and oriented x 3. LABORATORY DATA: The patient's labs were done with 4 values for his hemoglobin yesterday - hemoglobi n of 8.3 with repeat of 9.4 with a repeat of 8.4 and a final of 8.0 at midnight with 8.4 value this m orning. Hematocrit of 25 today, platelet count of 80,000 with a manual count also of 80,000. His IN R yesterday was 1.05. ASSESSMENT: Is that of gastrointestinal bleed, symptomatic anemia requiring transfusion, history of hypertension, history of severe thrombocytopenia, the patient on Primaxin which will be restarted, di abetes mellitus. PLAN: After conversation with Dr. Estevez, we will clarify the patient's diet to be full liquids, re start his Promacta, typed and crossed for an additional 1 unit of packed red blood cells as he has 1 on hold. We will not give platelets as there is no active bleeding with inspection of the palate als o negative for petechiae, with the patient's labs to be monitored and the patient monitored clinicall y. James Martinez MD cc: [phone] TT: 12/01/2016 15:45:32 Confirmation # [id number] Dictation # [id number] mn
--- NOTE | 2016-12-01 18:32 | PN ---
DATE: 12/01/2016 The patient is in room 366, bed 1. He has had no acute events have been reported overnight. There i s no longer any active bleeding at this time. PHYSICAL EXAMINATION: VITAL SIGNS: Temperature of 98.2, pulse rate of 95, blood pressure 121/75, respiratory rate of 20, a nd O2 saturation of 97%. HEENT: PERRLA, EOMI. No icterus present. NECK: Supple. There is a full range of motion and no jugular venous distention or bruits are apprec iated. LUNGS: Clear to auscultation and percussion bilaterally. HEART: Regular rate and rhythm. No murmurs, rubs, or gallops. ABDOMEN: Benign. NEUROLOGIC: The patient is intact. LABORATORY DATA: RBC is 3.21, hemoglobin 8.4, hematocrit 25.5. Chemistry is essentially normal with the exception of an anion gap of 8 and a glucose of 169. DIET: We will up the diet to a cardiac diet. PLAN: The patient will be prepped for an endoscopy on Friday. CURRENT DIAGNOSES: 1. Rectal bleed. 2. Diabetes mellitus. Cipriano Martinez MD cc: [id number] TT: 12/01/2016 18:32:07 Confirmation # [id number] Dictation # [id number] mn
[2016-12-02 07:15] LABS: ADD MANUAL DIFF? NO
[2016-12-02 07:21] LABS: BASO # 0.04 K/mm3 (0.0-2.0); BASO % 0.4 % (0.0-3.0); EOS # 0.2 (0.0-0.7); EOS % 1.7 % (1.5-5.0); GRAN # 7.71 (1.4-6.5); GRAN % 82.9 % (50.0-68.0); HEMATOCRIT 28.4 % (42.0-52.0); LYMPH # 0.7 (1.2-3.4); LYMPH % 7.7 % (22.0-35.0); MEAN CELL VOLUME 80.5 fL (80.0-105.0); MEAN CORPUSCULAR HEMOGLOBIN 26.6 pg (25.0-35.0); MEAN CORPUSCULAR HGB CONC 33.1 g/dl (31.0-37.0); MONO # 0.7 (0.1-0.6); MONO % 7.3 % (1.0-6.0); PLATELET COUNT 73 10^3/uL (120.0-450.0); RED CELL DISTRIBUTION WIDTH 16.6 % (11.5-14.5); WHITE BLOOD COUNT 9.3 10^3/ul (4.5-11.0)
[2016-12-02 07:42] LABS: ALB/GLOB RATIO 1.3 (1.1-1.8); ALKALINE PHOSPHATASE 87 U/L (38-133); ALT/SGPT 28 U/L (7-56); AST/SGOT 22 U/L (15-59); BILIRUBIN,TOTAL 0.9 mg/dL (0.2-1.3); BLOOD UREA NITROGEN 10 mg/dL (7-21); CALCIUM 8.8 mg/dL (8.4-10.5); CARBON DIOXIDE 26 mmol/L (21-33); CHLORIDE 108 mmol/L (98-107); GFR AFRICAN-AMERICAN > 60; GLUCOSE,RANDOM 168 mg/dL (70-110); MAGNESIUM 1.6 mg/dL (1.7-2.2); PHOSPHOROUS 4.2 mg/dL (2.5-4.5); POTASSIUM 4.2 mmol/L (3.6-5.0); SODIUM 140 mmol/L (132-148); TOTAL PROTEIN 6.4 g/dL (5.8-8.3)
[2016-12-02] MEDS: Insulin Reg-MEDIUM-Coverage SC SCH ×4 (07:59→22:45)
[2016-12-02] MEDS ORDERED: Peg-Electrolyte Oral Soln 4L (Golytely) PO ONE (08:00)
--- NOTE | 2016-12-02 08:14 | CP.PCM.PN ---
Subjective - Date & Time of Evaluation Date of Evaluation: 12/02/16 Time of Evaluation: 08:06 - Subjective Subjective: Surgery for Dr. Frank Pt s&petrona KITCHEN. Denies having BM or hematochezia. Tolerating diet. Denies F/C/N/V /D/CP/SOB. +amb Objective - Vital Signs/Intake and Output Vital Signs (last 24 hours): Temp Pulse Resp BP Pulse Ox 98.2 F 84 20 118/68 97 12/02/16 00:11 12/02/16 00:11 12/02/16 00:11 12/02/16 00:11 12/01/16 06:00 Intake and Output: 12/02/16 12/02/16 06:59 18:59 Intake Total 865 Output Total 0 Balance 865 - Medications Medications: Current Medications Acetaminophen (Tylenol 325mg Tab) 650 mg PO Q6H PRN PRN Reason: Pain, Mild (1-3) Home Med (Home Med) 1 unit PO DAILY [facility] Last Admin: 12/01/16 09:21 Dose: 1 unit Insulin Human Regular (Humulin R Med) 0 units SC ACHS [facility] PRN Reason: Protocol Last Admin: 12/02/16 07:59 Dose: 1 units Pantoprazole Sodium (Protonix Inj) 40 mg IVP Q12 [facility] Last Admin: 12/01/16 22:13 Dose: 40 mg - Labs Labs: 12/02/16 06:00 12/02/16 06:00 PT 11.3 Seconds (9.9-11.8) 11/30/16 09:04 INR 1.05 (0.93-1.08) 11/30/16 09:04 APTT 26.0 Seconds (23.7-30.8) 11/29/16 10:05 - Constitutional Appears: No Acute Distress - Head Exam Head Exam: ATRAUMATIC, NORMAL INSPECTION, NORMOCEPHALIC - Eye Exam Eye Exam: EOMI, Normal appearance, PERRL Pupil Exam: NORMAL ACCOMODATION, PERRL - ENT Exam ENT Exam: Mucous Membranes Moist, Normal Exam - Neck Exam Neck Exam: Full ROM, Normal Inspection. absent: Lymphadenopathy - Respiratory Exam Respiratory Exam: Clear to Ausculation Bilateral, NORMAL BREATHING PATTERN - Cardiovascular Exam Cardiovascular Exam: REGULAR RHYTHM, +S1, +S2. absent: Murmur - GI/Abdominal Exam GI & Abdominal Exam: Soft, Normal Bowel Sounds. absent: Distended, Firm, Guarding, Rigid, Tenderness, Rebound - Extremities Exam Extremities Exam: Full ROM, Normal Capillary Refill, Normal Inspection. absent : Joint Swelling, Pedal Edema - Back Exam Back Exam: NORMAL INSPECTION - Neurological Exam Neurological Exam: Alert, Awake, CN II-XII Intact, Normal Gait, Oriented x3 - Psychiatric Exam Psychiatric exam: Normal Affect, Normal Mood - Skin Skin Exam: Dry, Intact, Normal Color, Warm Assessment and Plan - Assessment and Plan (Free Text) Assessment: 61M with GI bleed Plan: - H/H remains stable - monitor bowel function for further bleeding - as per pt, GI is planning to do colonoscopy to get a better look at the colon on Tues: NPO after midnight. Arlen today. - no surgical intervention needed at this time - d/w Dr. Berry
[2016-12-02] MEDS ORDERED: Magnesium Sulfate 2 GM in Sodium Chloride 0.9% 100 ML IVPB ONE ×2 (08:39→08:43)
[2016-12-02] MEDS: ELTROMBOPAG OLAMINE 75 MG PO SCH (09:41)
[2016-12-02] MEDS ORDERED: Magnesium Oxide 400 mg Tab UD PO SCH (10:00)
[2016-12-02 16:42] LABS: URINE BILIRUBIN NEGATIVE (NEGATIVE); URINE BLOOD TRACE-LYSED (NEGATIVE); URINE GLUCOSE (UA) NEGATIVE (NEGATIVE); URINE KETONE NEGATIVE (NEGATIVE); URINE LEUKOCYTE ESTERASE NEGATIVE Leu/uL (NEGATIVE); URINE PROTEIN 100 mg/dL (<30 mg/dL)
[2016-12-02 17:08] LABS: URINE APPEARANCE CLEAR (CLEAR); URINE COLOR YELLOW (YELLOW)
--- NOTE | 2016-12-02 17:17 | PN ---
DATE: 12/02/2016 This is the patient's hospital visit on the medical floor. For Dr. Estevez. SUBJECTIVE: The patient is a 61-year-old male now transferred out of the intensive care unit with se graciela rectal bleed with hemoglobin 10.9 dropping to 8.0 in the space of a few hours. The patient was t ransfused now a total of 3 units of packed red blood cells with his hemoglobin noted to be 9.4 today. The patient is also being treated for severe thrombocytopenia on Promacta, with Promacta recently r estarted after it was on hold as the patient was n.p.o. He had a positive bleeding scan 11/29/2016 w ith report of charles colored stool even today, as he is being prepped for workup as per Dr. Tad sullivan tomorrow. He is otherwise recommended to be in his room for ambulation to the toilet and to the ch air and not to ambulate in the hallway at present. With oxygen recommended to continue temporarily u ntil his evaluation is complete. The patient appears to be in no acute distress. OBJECTIVE: VITAL SIGNS: Temperature 98.6, pulse , respirations 18, blood pressure 119/71, pulse ox 98%. HEENT: Unremarkable. NECK: Supple. HEART: Regular rate. LUNGS: Clear. ABDOMEN: Soft, nontender. EXTREMITIES: No edema. SKIN: Warm, dry and clear. NEUROLOGIC: Awake, alert, and oriented x 3. LABORATORY DATA: The patient's labs were done. White blood cell count 9.3, hemoglobin 9.4, status p ost transfusion of 2 units of packed cells for hemoglobin of 8.4 yesterday, platelet count of 73,000. Chem metabolic panel showed a chloride of 108, nonfasting glucose 168, magnesium 1.6, otherwise nor mal chem metabolic panel. His urinalysis shows small amount of blood with a urine culture showing gr am-positive cocci, less than 10,000 colonies. We will repeat this test. ASSESSMENT: Gastrointestinal bleed, symptomatic anemia, status post transfusion, history of hyperten emil, diabetes, diet controlled, history of severe thrombocytopenia on Promacta. PLAN: The plan for this patient, after conversation with Dr. Estevez, is to continue patient on full liquid diet for now with labs to be checked in the morning with a manual platelet count. Promacta has been restarted with workup as per Dr. Hardy with preparations being done today. Also, to insp ection of the oral palate, no petechiae noted. The patient denies any active bleeding. However, bhavna ogany colored stools were noted. They will be sent for stool for occult blood. We will monitor clin ically and with labs. James Martinez MD cc: [phone] TT: 12/02/2016 17:16:34 Confirmation # [id number] Dictation # [id number]
[2016-12-02 17:41] LABS: URINE BACTERIA SMALL (NEG); URINE EPITHELIAL CELLS 0 - 2 /hpf (0-5); URINE WBC 0 - 2 /hpf (0-6)
--- NOTE | 2016-12-02 23:54 | PN ---
DATE: 12/02/2016 SUBJECTIVE: This patient was seen and evaluated earlier today. The patient has been taking the kim l preparation for colonoscopy. The patient has some tea colored stool now. Initially some old clott ed blood was seen. PHYSICAL EXAMINATION: VITAL SIGNS: Temperature is 98.4, pulse 86, blood pressure 114/76. HEENT: Atraumatic, anicteric. NECK: Supple. HEART: S1, S2 heard. LUNGS: Bilateral air entry present. ABDOMEN: Soft. There is no mass palpable. No tenderness. EXTREMITIES: No edema. No cyanosis. LABORATORY DATA: Hemoglobin is 9.4, hematocrit 28.4, WBC is 9.3, platelets 73,000. BUN 10, creatini ne 1.0. IMPRESSION: This 61-year-old patient admitted with significant gastrointestinal bleeding, status pos t transfusion, status post 3 units transfusion. The patient's platelet count has been, the patient h as a history of ITP. The patient's platelets 73,000. The patient has been started on Promacta. Fol lowup of the hemoglobin and hematocrit and follow the platelets. The patient has been scheduled for, the patient scheduled for an EGD and colonoscopy tomorrow to further evaluate. The patient had a fl exible sigmoidoscopy, which showed significant diverticulosis and clotted blood seen in the sigmoid c olon. Rectum was clear. Thank you very much for allowing us to participate in the care of the patient. Kiko Hardy MD cc: [phone] TT: 12/02/2016 23:53:51 Confirmation # [id number] Dictation # [id number] mn
[2016-12-03 07:14] LABS: ADD MANUAL DIFF? NO
[2016-12-03] MEDS: Insulin Reg-MEDIUM-Coverage SC SCH ×4 (07:24→22:09)
[2016-12-03 07:31] LABS: BASO # 0.04 K/mm3 (0.0-2.0); BASO % 0.6 % (0.0-3.0); EOS # 0.2 (0.0-0.7); EOS % 2.6 % (1.5-5.0); GRAN # 5.07 (1.4-6.5); GRAN % 72.7 % (50.0-68.0); LYMPH # 0.9 (1.2-3.4); LYMPH % 13.5 % (22.0-35.0); MEAN CELL VOLUME 80.8 fL (80.0-105.0); MEAN CORPUSCULAR HEMOGLOBIN 26.7 pg (25.0-35.0); MEAN CORPUSCULAR HGB CONC 33.1 g/dl (31.0-37.0); MONO # 0.7 (0.1-0.6); MONO % 10.6 % (1.0-6.0); PLATELET COUNT 68 10^3/uL (120.0-450.0); RED CELL DISTRIBUTION WIDTH 16.8 % (11.5-14.5)
[2016-12-03 07:35] LABS: ALB/GLOB RATIO 1.3 (1.1-1.8); ALKALINE PHOSPHATASE 97 U/L (38-133); ALT/SGPT 36 U/L (7-56); AST/SGOT 24 U/L (15-59); BILIRUBIN,TOTAL 0.9 mg/dL (0.2-1.3); BLOOD UREA NITROGEN 11 mg/dL (7-21); CALCIUM 8.8 mg/dL (8.4-10.5); CARBON DIOXIDE 26 mmol/L (21-33); CHLORIDE 104 mmol/L (98-107); GFR AFRICAN-AMERICAN > 60; GLUCOSE,RANDOM 162 mg/dL (70-110); MAGNESIUM 1.9 mg/dL (1.7-2.2); PHOSPHOROUS 4.2 mg/dL (2.5-4.5); POTASSIUM 4.1 mmol/L (3.6-5.0); SODIUM 139 mmol/L (132-148); TOTAL PROTEIN 6.9 g/dL (5.8-8.3)
--- NOTE | 2016-12-03 08:12 | CP.PCM.PN ---
Subjective - Date & Time of Evaluation Date of Evaluation: 12/03/16 Time of Evaluation: 08:07 - Subjective Subjective: Surgery: Dr. Berry Pt seen and examined. No acute overnight events. States he hasn't had any more bloody BMs. Tolerating diet, denies N/V, F/C. Objective - Vital Signs/Intake and Output Vital Signs (last 24 hours): Temp Pulse Resp BP Pulse Ox 98.4 F 73 20 114/76 100 12/02/16 17:41 12/03/16 05:57 12/02/16 17:41 12/02/16 17:41 12/02/16 17:41 - Medications Medications: Current Medications Acetaminophen (Tylenol 325mg Tab) 650 mg PO Q6H PRN PRN Reason: Pain, Mild (1-3) Home Med (Home Med) 1 unit PO DAILY [facility] Last Admin: 12/02/16 09:41 Dose: 1 unit Insulin Human Regular (Humulin R Med) 0 units SC ACHS [facility] PRN Reason: Protocol Last Admin: 12/02/16 22:45 Dose: Not Given Pantoprazole Sodium (Protonix Inj) 40 mg IVP Q12 [facility] Last Admin: 12/02/16 22:45 Dose: 40 mg - Labs Labs: 12/03/16 06:45 12/03/16 06:45 PT 11.3 Seconds (9.9-11.8) 11/30/16 09:04 INR 1.05 (0.93-1.08) 11/30/16 09:04 APTT 26.0 Seconds (23.7-30.8) 11/29/16 10:05 - Constitutional Appears: Well, No Acute Distress - Head Exam Head Exam: ATRAUMATIC, NORMOCEPHALIC - ENT Exam ENT Exam: Mucous Membranes Moist - Respiratory Exam Respiratory Exam: NORMAL BREATHING PATTERN - Cardiovascular Exam Cardiovascular Exam: RRR - GI/Abdominal Exam GI & Abdominal Exam: Soft. absent: Distended, Tenderness - Extremities Exam Extremities Exam: absent: Tenderness - Neurological Exam Neurological Exam: Alert, Awake, Oriented x3 - Skin Skin Exam: Dry, Intact, Warm Assessment and Plan - Assessment and Plan (Free Text) Assessment: 61M with GI Bleed Plan: - H/H stable - pt scheduled for colonoscopy today; will f/u - d/w Dr. Jamal Black, PGY-2 Surgery
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
--- NOTE | 2016-12-03 08:36 | PN ---
DATE: 12/03/2016 SUBJECTIVE: The patient is seen and examined at bedside on the general medical [facility]. No acute event s overnight. He remains afebrile and hemodynamically stable. The patient denies any further episode s of blood per rectum, melena, or hematemesis. This morning, he states he feels well and is pending EGD/colonoscopy with Dr. Mittal for further evaluation of his presentation with blood per rectum. OBJECTIVE: VITAL SIGNS: Temperature 98.2, pulse 73, blood pressure 120/76, respiratory rate 20, oxygen saturati on 100% on room air. GENERAL: No apparent distress. HEENT: PERRL. EOMI. No scleral icterus. Mild conjunctival pallor is noted. NECK: No JVD, no bruits. LUNGS: Clear to auscultation. CARDIOVASCULAR: Regular rate and rhythm. Normal S1 and S2. ABDOMEN: Normoactive bowel sounds, soft, nontender, nondistended. EXTREMITIES: No edema. NEUROLOGIC: Awake, alert, and oriented x 3. No focal motor deficits. LABORATORY DATA: WBC is 7 with 73% neutrophils, hemoglobin 9.6, hematocrit 29, platelets 68 (manual count pending). CMP reviewed and unremarkable. ASSESSMENT: The patient is a 61-year-old man with past medical history of non-insulin dependent diab etes mellitus, hypertension, pseudogout, and thrombocytopenia, presumed secondary to autoimmune pheno jose roberto (on Promacta) who presented status post multiple episodes of blood per rectum and who is presen tly pending further GI evaluation with EGD/colonoscopy. PLAN: 1. GI bleed. Etiology likely secondary to diverticular bleed. Input from Dr. Hardy noted and ap preciated. The patient is pending further GI evaluation with Dr. Mittal this afternoon. No further bl eeds noted. H and H remain stable status post transfusion of 3 units of PRBCs. 2. Thrombocytopenia with etiology likely secondary to immunologic phenomenon. Input from Dr. Magaly sanchez noted and greatly appreciated. The patient is on Promacta on an outpatient basis. Platelets remai n stable. 3. Type 2 diabetes mellitus. Continue with metformin 1000 mg p.o. b.i.d. and Amaryl 2 mg p.o. daily . 4. Pseudogout. The patient remains pain free. 5. Hypertension. Blood pressure remains stable off medications. We will continue to monitor. CODE STATUS: Full code. Yassine Martinez MD cc: [id number] TT: 12/03/2016 08:35:40 Confirmation # [id number] Dictation # [id number] jn
--- NOTE | 2016-12-03 09:09 | RAD ---
HISTORY: PreOp COMPARISON: 01/19/2016 FINDINGS: LUNGS: No active pulmonary disease. PLEURA: No significant pleural effusion identified, no pneumothorax apparent. CARDIOVASCULAR: Mild cardiomegaly OSSEOUS STRUCTURES: No significant abnormalities. VISUALIZED UPPER ABDOMEN: Normal. OTHER FINDINGS: None. IMPRESSION: No active disease.
[2016-12-03] MEDS: ELTROMBOPAG OLAMINE 75 MG PO SCH (10:23)
--- NOTE | 2016-12-03 10:30 | PN ---
DATE: 12/03/2016 The patient is seen on the floor. No active bleeding. Colonoscopy today. Hemoglobin stable, having received [address] cells[address] Dr[address] Frank will continue to follow. Aaron Berry MD cc: [id number] TT: 12/03/2016 10:29:59 Confirmation # [id number] Dictation # [id number] tn
[2016-12-03] MEDS ORDERED: Propofol 10 mg/ml Inj (20 ML) ONE ×2 (12:53→13:08)
[2016-12-03] MEDS ORDERED: Lactated Ringer's 1,000 ML IV SCH (13:33)
[2016-12-03] MEDS ORDERED: Simethicone 40 mg/0.6 ml Liquid (30 ml) ONE (14:19)
--- NOTE | 2016-12-04 00:11 | PN ---
DATE: 12/03/2016 The patient is in room 366, bed 1. SUBJECTIVE: The patient is seen and examined at bedside. The patient recently had his colonoscopy. I spoke to Dr. Hardy. Findings are described below. The patient has had no acute events overnig ht, remains afebrile, hemodynamically stable. No further episodes of bleeding per rectum, melena or hematemesis. The patient is feeling otherwise well. The patient just had a big meal with spaghetti and meatballs. PHYSICAL EXAMINATION: VITAL SIGNS: Stable. T-max is 98.4, pulse 73, blood pressure 120/76, respirations 20, O2 sat is 100 % on room air. GENERAL: The patient is in no acute distress. HEENT: Head is normocephalic, atraumatic. Conjunctivae pale. Sclerae are anicteric. Pupils are eq ually reactive to light and accommodation. Examination of the oropharynx reveals no oropharyngeal le sions. NECK: Supple. There is no adenopathy. No jugular venous distention noted. LUNGS: Clear to percussion and auscultation. HEART: Reveals PMI to be in the 5th intercostal space inside the midclavicular line. S1 and S2 are normal. No gallop or murmur is heard. ABDOMEN: Soft, nontender. Bowel sounds are present. EXTREMITIES: Reveals no cyanosis, clubbing or edema. NEUROLOGIC: Reveals the patient to be awake, alert, and oriented, no acute distress. VITAL SIGNS: Stable. LABORATORY DATA: Reveals a white count of 7, hemoglobin 9.6, hematocrit 29, platelet count was 68,00 0. The patient is back on Promacta. ASSESSMENT NOTES AND PLAN: The patient is a 61-year-old male who was admitted with acute bleeding pe r rectum. Upon checking with Dr. aHrdy, today's colonoscopy revealed the colon to be clean and th e site of bleeding could have been from one of the diverticula, extensive diverticular disease in the descending colon where the bleeding could have happened. The patient has been instructed to stay on a diet, which is high in fiber along taking with stool softeners. I told him to avoid any seeds, es pecially pumpkin seeds and any that could get captured or trapped in the diverticulum. 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 Plan is to continue the current medications, and if the patient is stable, he could be discharged in a.m. for further followup as an outpatient. 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 He has history of pseudogout and h ypertension, both of which are under control at this time. Routine post exam instructions have been given to the patient. We will continue to follow the patient closely until the platelet count comes up about 100,000. I discussed my findings in detail with Dr. Yassine Martinez, the primary medical d [facility] as well. I have spoken in detail to Dr. Hardy as well. Sandra Estevez MD cc: [id number] TT: 12/04/2016 00:10:44 Confirmation # [id number] Dictation # [id number] mn
--- NOTE | 2016-12-04 01:41 | CARD ---
APPROVED REPORT EKG Measurement Heart [id number] WV [id number] [id number] <Conclusion> Normal sinus rhythm Possible Left atrial enlargement T wave abnormality, consider inferolateral ischemia Prolonged QT Abnormal ECG
[2016-12-04 07:23] LABS: ADD MANUAL DIFF? NO
[2016-12-04 07:30] LABS: BASO # 0.03 K/mm3 (0.0-2.0); BASO % 0.4 % (0.0-3.0); EOS # 0.2 (0.0-0.7); EOS % 2.2 % (1.5-5.0); GRAN # 5.16 (1.4-6.5); GRAN % 76.3 % (50.0-68.0); HEMATOCRIT 28.4 % (42.0-52.0); LYMPH % 14.1 % (22.0-35.0); MEAN CELL VOLUME 81.1 fL (80.0-105.0); MEAN CORPUSCULAR HEMOGLOBIN 26.6 pg (25.0-35.0); MEAN CORPUSCULAR HGB CONC 32.7 g/dl (31.0-37.0); MONO # 0.5 (0.1-0.6); PLATELET COUNT 59 10^3/uL (120.0-450.0); RED CELL DISTRIBUTION WIDTH 16.9 % (11.5-14.5); WHITE BLOOD COUNT 6.8 10^3/ul (4.5-11.0)
[2016-12-04 07:42] LABS: ALB/GLOB RATIO 1.2 (1.1-1.8); ALKALINE PHOSPHATASE 86 U/L (38-133); ALT/SGPT 32 U/L (7-56); AST/SGOT 24 U/L (15-59); BILIRUBIN,TOTAL 0.8 mg/dL (0.2-1.3); BLOOD UREA NITROGEN 13 mg/dL (7-21); CALCIUM 8.8 mg/dL (8.4-10.5); CARBON DIOXIDE 25 mmol/L (21-33); CHLORIDE 106 mmol/L (98-107); GFR AFRICAN-AMERICAN > 60; GLUCOSE,RANDOM 150 mg/dL (70-110); MAGNESIUM 1.8 mg/dL (1.7-2.2); PHOSPHOROUS 4.4 mg/dL (2.5-4.5); POTASSIUM 4.1 mmol/L (3.6-5.0); SODIUM 139 mmol/L (132-148); TOTAL PROTEIN 6.7 g/dL (5.8-8.3)
[2016-12-04 07:53] VITALS: BP 141/91; PULSE 90; RESP 17; TEMP 98.3; O2SAT 98
--- NOTE | 2016-12-04 08:48 | PN ---
DATE: 12/04/2016 SUBJECTIVE: The patient seen and examined at bedside on the general medical king. No acute events overnight. He remains afebrile and hemodynamically stable. He reports no further episodes of blood per rectum or melena. This morning he states he feels well and is looking forward to going home. OBJECTIVE: VITAL SIGNS: Temperature 98.3, pulse 90, blood pressure 141/91, respiratory rate 17, oxygen saturation 98% on room air. GENERAL: No apparent distress. HEENT: PERRL. EOMI. No scleral icterus. Mild conjunctival pallor is noted. NECK: No JVD, no bruits. LUNGS: Clear to auscultation. CARDIOVASCULAR: Regular rate and rhythm. Normal S1 and S2. ABDOMEN: Normoactive bowel sounds, soft, nontender, nondistended. EXTREMITIES: No edema. NEUROLOGIC: Awake, alert and oriented x 3. No focal motor deficits. LABORATORY DATA: WBC 6.8, hemoglobin 9.3, hematocrit 28, platelets 59. Chemistry reviewed and unremarkable. ASSESSMENT: The patient is a 61-year-old man with a past medical history of non -insulin dependent diabetes mellitus, hypertension, pseudogout and thrombocytopenia who presented status post multiple episodes of blood per rectum and who is s/p EGD and colonoscopy which demonstrated extensive diverticulosis with diverticular bleed the likely etiology of his blood per rectum. PLAN: 1. Lower gastrointestinal bleed secondary to extensive diverticuli. Input from Dr. Hardy noted and appreciated and findings of colonoscopy and EGD have been reviewed. The patient's H/H remain stable and there has been no further report of overt blood loss. 2. Thrombocytopenia with etiology likely secondary to immunologic phenomenon. Input from Dr. Estevez noted and greatly appreciated. The patient will resume Promacta upon discharge and is followed closely by Dr. Estevez on an outpatient basis. 3. Type 2 diabetes mellitus. The patient to resume metformin 1000 mg p.o. b.i.d. and Amaryl 2 mg p.o. daily. 4. Pseudogout. 5. Hypertension. Blood pressure controlled off medications. We will continue to monitor. 6. Disposition. The patient for discharge to home today. CODE STATUS: Full code. Yassine Martinez MD cc: [id number] TT: 12/04/2016 08:48:22 Confirmation # [id number] Dictation # [id number] MTDD
[2016-12-04] MEDS: Insulin Reg-MEDIUM-Coverage SC SCH (09:13)
[2016-12-04] MEDS: ELTROMBOPAG OLAMINE 75 MG PO SCH (09:13)
--- NOTE | 2016-12-04 10:24 | DS ---
ADMITTING DIAGNOSIS: Lower gastrointestinal bleed. DISCHARGE DIAGNOSIS: Lower gastrointestinal bleed secondary to extensive diverticulosis. SECONDARY DIAGNOSES: Thrombocytopenia secondary to immunologic phenomenon, type 2 diabetes mellitus, pseudogout, hypertension. CONSULTATIONS: Dr. Estevez (hematology/oncology), Dr. Frank (general surgery), Dr. Hardy ( astroenterology). IMAGING STUDIES: 1. Chest x-ray which demonstrated no acute pathology. 2. CT of the abdomen and pelvis with p.o. contrast which demonstrated extensive colonic diverticulos is with fluid noted in the rectum and sigmoid with no evidence of obstruction or diverticulitis. DIAGNOSTIC STUDIES: GI bleed nuclear scan which demonstrated active rectal bleed. PROCEDURES: 1. EGD which demonstrated a small hiatal hernia with esophageal mucosal changes suspicious for short segment Hernandez's esophagus, but otherwise negative for bleed. 2. Colonoscopy which demonstrated extensive diverticulosis to the sigmoid and descending colon with internal hemorrhoids and no evidence of active bleed. HISTORY OF PRESENT ILLNESS: The patient is a 61-year-old man with a past medical history of noninsul in dependent diabetes mellitus, hypertension, pseudogout and thrombocytopenia likely secondary to imm unologic phenomenon, who presented to the Emergency Department for evaluation of several episodes of bright red blood per rectum. The patient states that he was in his usual state of health until appro ximately 1 day prior to presentation to the Emergency Department when he noted some lower abdominal d iscomfort and upon moving his bowels, he noted bright red blood in the toilet and passage of a few sm all clots. Given his significant lower GI bleed, the patient presented to the Emergency Department f or further evaluation. Upon arrival to the ED, the patient was noted to be tachycardic, but otherwis e hemodynamically stable. Initial laboratory studies that were obtained demonstrated an acute drop i n hemoglobin from 10 down to 8. Given the fact the patient was symptomatic, he was evaluated by the ICU and subsequently transferred to the ICU for continued management of lower GI bleed. HOSPITAL COURSE: Upon admission to the ICU, the patient was started on aggressive IV fluid hydration . He was also type and crossmatch and transfused 3 units of PRBCs. The patient underwent a flexible sigmoidoscopy with Dr. Hardy which demonstrated blood in the rectal vault. After his flexible si gmoidoscopy, the patient's bleeding had subsided. He was maintained on Protonix in anticipation of a followup endoscopy and complete colonoscopy. Over the following 24 hours, he remained hemodynamical ly stable and his CBC also remained stable, status post transfusion of his 3 units of PRBCs and he wa s transferred to the general medical king. While on the general medical king, the patient was again noted to remain hemodynamically stable and morning labs demonstrated stability of his H and H. The jagdish knott also denied any further episodes of overt blood loss. He was taken to the endoscopy suite with Dr. Hardy and underwent successful EGD and colonoscopy with the findings as demonstrated above. There were no post-procedure complications noted and followup laboratory studies demonstrated persist ent stability in his H and H and by hospital day #5, he was deemed stable for discharge to home. CONDITION: Good, improved. DISPOSITION: To home. DISCHARGE MEDICATIONS: Metformin 1000 mg p.o. b.i.d., glimepiride 2 mg p.o. daily, Pepcid 20 mg p.o. daily and lisinopril 10 mg p.o. daily. DISCHARGE INSTRUCTIONS: The patient was advised to adhere to a high fiber diet and utilize stool sof teners as needed to minimize the risk of constipation given his extensive diverticulosis and predispo sition for diverticular bleed. The patient was also advised that, if he has any recurrence of his sy mptoms, to present to his PMD or to the nearest Emergency Department immediately. FOLLOWUP: The patient to follow up with his PMD within 1 week of discharge. The patient to follow u p with Dr. Estevez as scheduled and patient to follow up with Dr. Mittal of gastroenterology as sched ed. Yassine Martinez MD cc: [phone] TT: 12/04/2016 10:23:22 tn
== END 2016-12-04 09:58 | disposition home or self-care (01) | DRG 378 ==
LOC: ED 07:31 → ERH 16:26 → CCU 18:05 → 3RNO 11-30 20:16
PROVIDERS: ADMIT Student in an Organized Health Care Education/Training Program; ATTEND Student in an Organized Health Care Education/Training Program
PROC: 30233N1 Transfusion of Nonautologous Red Blood Cells into Peripheral Vein, Percutaneous Approach (ICD-10-PCS; 2016-11-29)
PROC: 0DJD8ZZ Inspection of Lower Intestinal Tract, Via Natural or Artificial Opening Endoscopic (ICD-10-PCS; 2016-11-29)
PROC: 30233R1 Transfusion of Nonautologous Platelets into Peripheral Vein, Percutaneous Approach (ICD-10-PCS; 2016-12-03)
PROC: 0DJD8ZZ Inspection of Lower Intestinal Tract, Via Natural or Artificial Opening Endoscopic (ICD-10-PCS; principal; 2016-12-03 12:00)
PROC: 0DJ08ZZ Inspection of Upper Intestinal Tract, Via Natural or Artificial Opening Endoscopic (ICD-10-PCS; 2016-12-03 12:00)
DX: K57.31 Diverticulosis of large intestine without perforation or abscess with bleeding (principal); D50.0 Iron deficiency anemia secondary to blood loss (chronic); D69.3 Immune thrombocytopenic purpura; E11.40 Type 2 diabetes mellitus with diabetic neuropathy, unspecified; D69.59 Other secondary thrombocytopenia; I50.9 Heart failure, unspecified; I11.0 Hypertensive heart disease with heart failure; F41.9 Anxiety disorder, unspecified; K44.9 Diaphragmatic hernia without obstruction or gangrene; K64.8 Other hemorrhoids; M11.20 Other chondrocalcinosis, unspecified site; M19.021 Primary osteoarthritis, right elbow; F17.210 Nicotine dependence, cigarettes, uncomplicated; Z79.84 Long term (current) use of oral hypoglycemic drugs

== ENCOUNTER 2018-07-03 07:19 | Inpatient (IN) | payer BC, MEDICARE ==
[2018-07-03] MEDS ORDERED: Albuterol-Ipratrop 3 mg / 0.5 (3 ml) UD ONE (07:30)
[2018-07-03] MEDS ORDERED: Albuterol-Ipratrop 3 mg / 0.5 (3 ml) UD IH STA (08:01)
--- NOTE | 2018-07-03 08:48 | ED PDOC ---
Arrival/HPI - General Chief Complaint: Shortness Of Breath Time Seen by Provider: 07/03/18 07:36 Historian: Patient - Critical Care Critical Care Minutes: 30 minutes - History of Present Illness Narrative History of Present Illness (Text): 07/03/18 08:01 62 y/o M, with past medical history of diabetes, hypertension and CHF, presents to the ED accompanied by son via EMS for evaluation of shortness of breath and fever since this morning. Son states patient was started on antibiotics yesterday by his PMD for sinus infection and ongoing cough for few days. As per son, symptoms worsened this morning when patient expressed labored breathing and was unable to communicate in full sentences, prompting him to present to the ED for medical evaluation. Son states patient had a blood sugar level of 443 as per EMS report en route. Patient denies any other associated somatic complaints. Patient denies any chills, headache, dizziness, chest pain, abdominal pain, nausea, vomiting, diarrhea, back pain, neck pain, or any other complaints. Patient admits to smoking daily. PMD: Dr. Martinez Time/Duration: 4-6 hours Symptom Onset: Gradual Symptom Course: Unchanged Activities at Onset: Light Context: Home Past Medical History - Provider Review Nursing Documentation Reviewed: Yes - Infectious Disease Hx of Infectious Diseases: None - Cardiac Hx Cardiac Disorders: Yes Hx Hypertension: Yes - Pulmonary Hx Respiratory Disorders: No - Neurological Hx Neurological Disorder: Yes Other/Comment: Neuropathy bilat. foot. - HEENT Hx HEENT Disorder: No - Renal Hx Renal Disorder: No - Endocrine/Metabolic Hx Endocrine Disorders: Yes Hx Diabetes Mellitus Type 2: Yes - Hematological/Oncological Hx Blood Disorders: Yes Hx Anemia: Yes Hx Blood Transfusions: Yes Hx Blood Transfusion Reaction: No - Integumentary Other/Comment: right elbow red swollen warm to touch just started 01/17/16. pt hit elbow in work getting a pot, developed staph infection, picc line in for iv abx finished january 06, now elbow is getting red and swollen again. when pt came to er back in november for r elbow injury developed allergic reaction hives throat closed swollen eyes and lips. Pt does not know what from. pt sustained a 2nd degree burn 2016 at work to right forearm which is healed - Musculoskeletal/Rheumatological Hx Musculoskeletal Disorders: No - Gastrointestinal Hx Gastrointestinal Disorders: Yes (RECTAL BLEED 5-26-17 DX DIVERTICULITIS) Hx Diverticulitis: Yes - Genitourinary/Gynecological Hx Genitourinary Disorders: No - Psychiatric Hx Psychophysiologic Disorder: No Hx Substance Use: No - Surgical History Other/Comment: SIGMOIDOSCOPY. RIGHT KNEE ARTHROSCOPY. L INGUINAL HERNIORHAPY - Anesthesia Hx Anesthesia: Yes Hx Anesthesia Reactions: No Hx Malignant Hyperthermia: No Family/Social History - Physician Review Nursing Documentation Reviewed: Yes Family/Social History: Unknown Family HX Smoking Status: Heavy Smoker > 10 Cigarettes Daily Hx Alcohol Use: No (occasional) Hx Substance Use: No Allergies/Home Meds Allergies/Adverse Reactions: Allergies nut Allergy (Uncoded 11/29/16 22:27) RASH fruit Adverse Reaction (Uncoded 11/29/16 22:27) RASH Home Medications: Home Meds Medication Instructions Recorded Confirmed RX: MetFORMIN [glucoPHAGE] 1,000 mg PO BID 11/26/15 07/03/18 RX: Amitriptyline [Elavil] 25 mg PO HS 01/19/16 07/03/18 RX: Lansoprazole [Prevacid] 30 mg PO DAILY 01/19/16 07/03/18 RX: Alprazolam [Xanax] 0.5 mg PO BID PRN 11/29/16 07/03/18 RX: Eltrombopag Olamine [Promacta] 75 mg PO DAILY 11/29/16 07/03/18 RX: Furosemide [Lasix] 40 mg PO DAILY 11/29/16 07/03/18 RX: Ropinirole HCl [Requip Xl] 4 mg PO DAILY 11/29/16 07/03/18 RX: metOLazone [Zaroxolyn] 2.5 mg PO MWF 11/29/16 07/03/18 Febuxostat [Uloric] 40 mg PO DAILY 07/03/18 07/03/18 Magnesium Oxide [Pharmassure 500 mg PO DAILY 07/03/18 07/03/18 Magnesium] Potassium Chloride [K-Dur 20] 20 meq PO DAILY 07/03/18 07/03/18 Pyridoxine [Vitamin B6] 1 tab PO DAILY 07/03/18 07/03/18 RX: Ciprofloxacin [Cipro] 1 tab PO BID 07/03/18 07/03/18 RX: Melatonin 5 mg PO HS 07/03/18 07/03/18 SITagliptin [Januvia] 50 mg PO DAILY 07/03/18 07/03/18 Review of Systems - Physician Review All systems were reviewed & negative as marked: Yes - Review of Systems Constitutional: Fevers Respiratory: SOB, Cough Cardiovascular: absent: Chest Pain Gastrointestinal: absent: Abdominal Pain, Diarrhea, Nausea, Vomiting Genitourinary Male: absent: Urinary Output Changes Musculoskeletal: absent: Back Pain, Neck Pain Skin: absent: Rash Neurological: absent: Headache, Dizziness Physical Exam Vital Signs Reviewed: Yes Vital Signs Temp Pulse Resp BP Pulse Ox 07/03/18 07:35 22 100 07/03/18 07:30 99.1 F 110 H 22 126/83 94 L 07/03/18 07:29 99.1 F 110 H 22 126/83 94 L Temperature: Afebrile Blood Pressure: Normal Pulse: Tachycardic Respiratory Rate: Normal Appearance: Positive for: Well-Appearing, Non-Toxic Pain Distress: Mild Mental Status: Positive for: Alert and Oriented X 3 - Systems Exam Head: Present: Atraumatic, Normocephalic Pupils: Present: PERRL Extroacular Muscles: Present: EOMI Conjunctiva: Present: Normal Respiratory/Chest: Present: Wheezes (mild expiratory wheeze noted to anterior miguel b/l), Decreased Breath Sounds, Tachypneic, Other (labored breathing; able to speak in short sentences ). No: Respiratory Distress Cardiovascular: Present: Regular Rate and Rhythm, Normal S1, S2. No: Murmurs Abdomen: Present: Distention. No: Tenderness, Peritoneal Signs Back: Present: Normal Inspection Upper Extremity: Present: Normal Inspection. No: Cyanosis, Edema Lower Extremity: Present: Edema (2+ pitting edema noted to right lower extremity; chronic diabetic ulcer noted to anterior anderson of left lower extremity ) Neurological: Present: GCS=15, CN II-XII Intact Skin: Present: Warm, Dry, Normal Color. No: Rashes Psychiatric: Present: Alert, Oriented x 3, Normal Insight, Normal Concentration Medical Decision Making ED Course and Treatment: 07/03/18 08:05 Impression: 62 year old male presents to the ED for evaluation of shortness of breath since this morning. Differential Diagnosis included but are not limited to: -- Pneumonia -- Bronchitis -- Sinusitis -- COPD exacerbation Plan: -- ABG -- VBG -- Labs -- Chest X-ray -- Duonebs -- Solumedrol --Rocephin --Azithromycin --Insulin --Dextrose --Sodium Bicarbonate --Albuterol -- Reassess and disposition Prior Visits: Notes and results from previous visits were reviewed. Progress Notes: 07/03/18 09:10 Chest x-ray reviewed, shows large consolidation of right middle and lower lobe suspicious for pneumonia. Will treat with antibiotics. 07/03/18 09:29 CODE SEPSIS ACTIVATED. Empiric antibiotics preemptively given. Lactated Ringers ordered 30mg/kg. VBG reveals hyperkalemia of 6.[address] Pérez(PCP). 07/03/18 10:[address] Michele Pérez who states patient cannot be hypekalemic due to taking potassium supplements. He wishes to be informed once patient's chemistries are resulted. Discussed case with Flight Test Mechanic, Dr. Sung, who is aware and will evaluate patient at bedside for possible ICU admission. - Lab Interpretations I have reviewed the lab results: Yes - RAD Interpretation Narrative RAD Interpretations (Text): 07/03/18 10:39 Chest X-ray reviewed by radiologist, shows: FINDINGS: LUNGS: Extensive infiltrate primarily affecting right lung/right upper lobe. Right lower lobe is also affected. Findings are likely infectious/inflammatory, much less likely to reflect asymmetrical pulmonary edema. PLEURA: No significant pleural effusion identified, no pneumothorax apparent. CARDIOVASCULAR: No atherosclerotic calcification present Cardiomegaly. OSSEOUS STRUCTURES: No significant abnormalities. VISUALIZED UPPER ABDOMEN: Normal. OTHER FINDINGS: None. IMPRESSION: Stats of infiltrate primarily affecting right lung/right upper lobe. Radiology Orders: 07/03/18 08:01 CHEST PORTABLE [RAD] Stat Framing Specialist: Radiologist - Medication Orders Current Medication Orders: Discontinued Medications Albuterol/Ipratropium (Duoneb 3 Mg/0.5 Mg (3 Ml) Ud) 3 ml IH STAT STA Stop: 07/03/18 08:02 Last Admin: 07/03/18 08:23 Dose: 3 ml Methylprednisolone (Solu-Medrol) 125 mg IVP STAT STA Stop: 07/03/18 08:30 - Scribe Statement The provider has reviewed the documentation as recorded by the Scribe Maisha Rodriguez. All medical record entries made by the Scribe were at my direction and personally dictated by me. I have reviewed the chart and agree that the record accurately reflects my personal performance of the history, physical exam, medical decision making, and the department course for this patient. I have also personally directed, reviewed, and agree with the discharge instructions and disposition. Disposition/Present on Arrival - Present on Arrival Any Indicators Present on Arrival: Yes History of DVT/PE: No History of Uncontrolled Diabetes: Yes Urinary Catheter: No History of Decub. Ulcer: No History Surgical Site Infection Following: None - Disposition Have Diagnosis and Disposition been Completed?: Yes Diagnosis: Pneumonia Disposition: HOSPITALIZED Disposition Time: 10:18 Patient Plan: Admission Patient Problems: Current Active Problems Problem Status Onset Acute hypoxemic respiratory failure Acute Acute kidney injury Acute CHF (congestive heart failure) Acute Hyperkalemia Acute Pneumonia Acute Sepsis Acute Condition: GUARDED
[2018-07-03] MEDS ORDERED: Azithromycin 500MG/NS 250ml 500 MG/250 ML BAG IVPB STA (09:00)
[2018-07-03] MEDS ORDERED: cefTRIAXone 1 gm 1 GM/100 ML BAG IVPB STA (09:00)
[2018-07-03] MEDS ORDERED: Sodium Chloride 0.9% 1,000 ML IV STA (09:06)
[2018-07-03 09:14] LABS: VENOUS BLOOD GAS BASE EXCESS -8.8 mmol/L (0.0-2.0); VENOUS BLOOD GAS PO2 42 mm/Hg (30-55); VENOUS BLOOD PH 7.25 (7.32-7.43)
[2018-07-03] MEDS ORDERED: Albuterol 0.083% Inhal Sol (2.5 mg/3 mL) UD INH STA (09:34)
[2018-07-03] MEDS ORDERED: Dextrose 50% SYRINGE Inj (50 ml) IVP STA (09:35)
[2018-07-03] MEDS ORDERED: Insulin Regular 1 UNITS/0.01 ML ML IVP STA (09:35)
[2018-07-03] MEDS ORDERED: Sodium Bicarbonate (8.4%) 50 Meq Syringe IVP ONE (09:36)
[2018-07-03 09:47] LABS: BASO # 0.03 K/mm3 (0.0-2.0); BASO % 0.3 % (0.0-3.0); GRAN # 11.02 (1.4-6.5); GRAN % 92.4 % (50.0-68.0); HEMOGLOBIN 11.7 g/dL (14.0-18.0); LYMPH # 0.6 (1.2-3.4); LYMPH % 4.9 % (22.0-35.0); MEAN CELL VOLUME 85.7 fl (80.0-105.0); MEAN CORPUSCULAR HGB CONC 31.5 g/dl (31.0-37.0); MONO # 0.3 (0.1-0.6); MONO % 2.4 % (1.0-6.0); RBC 4.33 10^6/uL (3.5-6.1); RED CELL DISTRIBUTION WIDTH 16.9 % (11.5-14.5); WHITE BLOOD COUNT 11.9 10^3/uL (4.5-11.0)
[2018-07-03 10:04] LABS: PLATELET COUNT 46 10^3/uL (120.0-450.0)
[2018-07-03 10:14] LABS: BAND 1 % (0-2); LYMPHOCYTE 7 % (22.0-35.0); MONOCYTE 1 % (1.0-6.0); NEUTROPHIL 91 % (50.0-70.0); PLATELET ESTIMATE LOW (NORMAL)
[2018-07-03 10:26] LABS: ALB/GLOB RATIO 1.4 (1.1-1.8); ALBUMIN 4.5 g/dL (3.0-4.8); CALCIUM 8.4 mg/dL (8.4-10.5)
--- NOTE | 2018-07-03 10:36 | RAD ---
Date of service: 07/03/2018 HISTORY: Shortness of breath. COMPARISON: 12/03/2016 FINDINGS: LUNGS: Extensive infiltrate primarily affecting right lung/right upper lobe. Right lower lobe is also affected. Findings are likely infectious/inflammatory, much less likely to reflect asymmetrical pulmonary edema. PLEURA: No significant pleural effusion identified, no pneumothorax apparent. CARDIOVASCULAR: No atherosclerotic calcification present Cardiomegaly. OSSEOUS STRUCTURES: No significant abnormalities. VISUALIZED UPPER ABDOMEN: Normal. OTHER FINDINGS: None. IMPRESSION: Stats of infiltrate primarily affecting right lung/right upper lobe.
[2018-07-03 10:37] LABS: TROPONIN I 0.48 ng/mL
[2018-07-03 10:47] LABS: ARTERIAL BLOOD GAS HCO3 15.4 mmol/L (21-28); ARTERIAL BLOOD GAS HEMOGLOBIN 10.6 g/dL (11.7-17.4); ARTERIAL BLOOD GAS O2 CAPACITY 14.9 mL/dl (16-24); ARTERIAL BLOOD GAS O2 CONTENT 14.8 ML/dl (15-23); ARTERIAL BLOOD GAS O2 SAT 99.5 % (95-98); ARTERIAL BLOOD GAS PCO2 32 mm/Hg (35-45); ARTERIAL BLOOD GAS PH 7.29 (7.35-7.45); ARTERIAL BLOOD GAS TCO2 16.4 mmol.L (22-28)
[2018-07-03] MEDS ORDERED: Cefepime (Maxipime) 1 g Inj IVPB SCH (11:15)
[2018-07-03] MEDS ORDERED: Vancomycin 1gm in NS 250ml 1 GM/250 ML BAG IVPB SCH (11:15)
[2018-07-03 12:17] LABS: VENOUS BLOOD GAS BASE EXCESS -13.1 mmol/L (0.0-2.0); VENOUS BLOOD GAS PO2 67 mm/Hg (30-55)
[2018-07-03 12:20] LABS: VENOUS BLOOD PH 7.14 (7.32-7.43)
--- NOTE | 2018-07-03 13:20 | CT ---
Date of service: 07/03/2018 PROCEDURE: CT Chest without contrast HISTORY: pneumonia COMPARISON: None available. TECHNIQUE: Contiguous axial images were obtained through the chest without intravenous contrast enhancement. Sagittal and coronal reconstructions were performed. Radiation dose: Total exam DLP = 729.21 mGy-cm. This CT exam was performed using one or more of the following dose reduction techniques: Automated exposure control, adjustment of the mA and/or kV according to patient size, and/or use of iterative reconstruction technique. FINDINGS: LUNGS: There is an extensive alveolar infiltrate in the right lung with air bronchograms. There is a smaller area of consolidation in the left lower lobe posteromedially MEDIASTINUM: Unremarkable thoracic aorta. No aneurysm. Normal sized heart. Main pulmonary artery unremarkable. No vascular congestion. No lymphadenopathy. Aortic and coronary artery calcifications PLEURA: Small right pleural effusion BONES: No fracture. No destructive lesion. UPPER ABDOMEN: Grossly unremarkable. OTHER FINDINGS: None. IMPRESSION: Extensive alveolar infiltrate throughout the right lung and a small area of consolidation in the left lung base. Findings consistent with pneumonia
--- NOTE | 2018-07-03 13:52 | CP.PCM.CON ---
History of Present Illness - History of Present Illness History of Present Illness: MICU CONSULT NOTE HPI Patient is 62yo male with PMHx of COPD, active smoker 1pk per day, HTN, DM, PVD, presents with ER with -2 day history fever, chills, associated with cough that is non-productive. This morning patient also developed SOB. Pt denies sick contacts, recent travel, CP, palpitations, CARTY, dizziness. In the ER noted to be hypoxic 78%, on 2LNC, placed on BIPAP. No other constitutional symptoms. PMHx COPD, active smoker 1pk per day, HTN, DM, PVD PSHx NONE Meds as per EMR Allergies Nut, fruit Social smokes 1pk per day for 40y, denies etoh, drug use ROS as above Review of Systems - Review of Systems Review of Systems: as per HPI Past Patient History - Infectious Disease Hx of Infectious Diseases: None - Past Social History Smoking Status: Heavy Smoker > 10 Cigarettes Daily - CARDIAC Hx Cardiac Disorders: Yes Hx Hypertension: Yes - PULMONARY Hx Respiratory Disorders: No - NEUROLOGICAL Hx Neurological Disorder: Yes Other/Comment: Neuropathy bilat. foot. - HEENT Hx HEENT Problems: No - RENAL Hx Chronic Kidney Disease: No - ENDOCRINE/METABOLIC Hx Endocrine Disorders: Yes Hx Diabetes Mellitus Type 2: Yes - HEMATOLOGICAL/ONCOLOGICAL Hx Blood Disorders: Yes Hx Anemia: Yes Hx Blood Transfusions: Yes Hx Blood Transfusion Reaction: No - INTEGUMENTARY Other/Comment: right elbow red swollen warm to touch just started 01/17/16. pt hit elbow in work getting a pot, developed staph infection, picc line in for iv abx finished january 06, now elbow is getting red and swollen again. when pt came to er back in november for r elbow injury developed allergic reaction hives throat closed swollen eyes and lips. Pt does not know what from. pt sustained a 2nd degree burn 2016 at work to right forearm which is healed - MUSCULOSKELETAL/RHEUMATOLOGICAL Hx Musculoskeletal Disorders: No - GASTROINTESTINAL Hx Gastrointestinal Disorders: Yes (RECTAL BLEED 11-29-16 DX DIVERTICULITIS) Hx Diverticulitis: Yes - GENITOURINARY/GYNECOLOGICAL Hx Genitourinary Disorders: No - PSYCHIATRIC Hx Psychophysiologic Disorder: No Hx Substance Use: No - SURGICAL HISTORY Other/Comment: SIGMOIDOSCOPY. RIGHT KNEE ARTHROSCOPY. L INGUINAL HERNIORHAPY - ANESTHESIA Hx Anesthesia: Yes Hx Anesthesia Reactions: No Hx Malignant Hyperthermia: No Meds Allergies/Adverse Reactions: Allergies Allergy/AdvReac Type Severity Reaction Status Date / Time nut Allergy RASH Uncoded 11/29/16 22:27 fruit AdvReac RASH Uncoded 11/29/16 22:27 - Medications Medications: Current Medications Albuterol/Ipratropium (Duoneb 3 Mg/0.5 Mg (3 Ml) Ud) 3 ml IH [id number] JHON Albuterol/Ipratropium (Duoneb 3 Mg/0.5 Mg (3 Ml) Ud) 3 ml IH Q2H PRN PRN Reason: Shortness of Breath Doxycycline Hyclate 100 mg/ (Sodium Chloride) 100 mls @ 100 mls/hr IVPB Q12 JHON; Protocol Vancomycin HCl (Vancomycin 1gm) 1 gm in 250 mls @ 167 mls/hr IVPB DAILY JHON; Protocol Last Admin: 07/03/18 12:07 Dose: 167 mls/hr Cefepime HCl (Maxipime 1gm) 1 gm in 100 mls @ 100 mls/hr IVPB Q24H JHON Physical Exam - Constitutional Appears: Non-toxic, No Acute Distress - Head Exam Head Exam: NORMAL INSPECTION - Eye Exam Eye Exam: Normal appearance - ENT Exam ENT Exam: Mucous Membranes Dry - Respiratory Exam Respiratory Exam: Decreased Breath Sounds, NORMAL BREATHING PATTERN - Cardiovascular Exam Cardiovascular Exam: REGULAR RHYTHM, +S1, +S2 - GI/Abdominal Exam GI & Abdominal Exam: Normal Bowel Sounds, Soft - Extremities Exam Additional comments: Venous stasis changes, +ulcers - Neurological Exam Neurological exam: Alert, Oriented x3 Results - Vital Signs Recent Vital Signs: Last Vital Signs Temp 102.5 F H 07/03/18 12:07 Pulse 112 H 07/03/18 11:38 Resp 22 07/03/18 11:38 BP 96/71 L 07/03/18 11:38 Pulse Ox 98 07/03/18 11:38 - Labs Result Diagrams: 07/03/18 09:25 07/03/18 09:25 Labs: Laboratory Results - last 24 hr 07/03/18 07/03/18 07/03/18 09:00 09:25 09:25 WBC 11.9 H RBC 4.33 Hgb 11.7 L Hct 37.1 L MCV 85.7 MCH 27.0 MCHC 31.5 RDW 16.9 H Plt Count 46 L* Gran % 92.4 H Lymph % (Auto) 4.9 L Wilson % (Auto) 2.4 Eos % (Auto) 0.0 L Baso % (Auto) 0.3 Gran # 11.02 H Lymph # (Auto) 0.6 L Wilson # (Auto) 0.3 Eos # (Auto) 0.0 Baso # (Auto) 0.03 Neutrophils % (Manual) 91 H Band Neutrophils % 1 Lymphocytes % (Manual) 7 L Monocytes % (Manual) 1 Platelet Evaluation Low pCO2 pO2 42 HCO3 ABG pH ABG Total CO2 ABG O2 Saturation ABG O2 Content ABG Base Excess ABG Hemoglobin ABG Carboxyhemoglobin POC ABG HHb (Measured) ABG Methemoglobin ABG O2 Capacity VBG pH 7.25 L VBG pCO2 41.0 VBG HCO3 18.0 L VBG Total CO2 19.3 L VBG O2 Sat (Calc) 75.7 H VBG Base Excess -8.8 L VBG Potassium 6.4 H* Hgb O2 Saturation Sodium 133.0 136 Chloride 100.0 104 Glucose 452 H* Lactate 4.6 H* FiO2 21.0 Potassium 5.8 H* D Carbon Dioxide 18 L Anion Gap 20 BUN 79 H Creatinine 2.6 H Est GFR ( Amer) 30 Est GFR (Non-Af Amer) 25 Random Glucose 420 H* D Calcium 8.4 Magnesium 2.2 Total Bilirubin 0.9 AST 307 H D ALT 224 H Alkaline Phosphatase 89 Troponin I 0.48 H* D NT-Pro-B Natriuret Pep 02883 H Total Protein 7.6 Albumin 4.5 Globulin 3.2 Albumin/Globulin Ratio 1.4 Venous Blood Potassium 6.4 H* 07/03/18 10:40 WBC RBC Hgb Hct MCV MCH MCHC RDW Plt Count Gran % Lymph % (Auto) Wilson % (Auto) Eos % (Auto) Baso % (Auto) Gran # Lymph # (Auto) Wilson # (Auto) Eos # (Auto) Baso # (Auto) Neutrophils % (Manual) Band Neutrophils % Lymphocytes % (Manual) Monocytes % (Manual) Platelet Evaluation pCO2 32 L pO2 173.0 H HCO3 15.4 L ABG pH 7.29 L ABG Total CO2 16.4 L ABG O2 Saturation 99.5 H ABG O2 Content 14.8 L ABG Base Excess -10.1 L ABG Hemoglobin 10.6 L ABG Carboxyhemoglobin 1.6 H POC ABG HHb (Measured) 0.5 ABG Methemoglobin 0.9 ABG O2 Capacity 14.9 L VBG pH VBG pCO2 VBG HCO3 VBG Total CO2 VBG O2 Sat (Calc) VBG Base Excess VBG Potassium Hgb O2 Saturation 97.0 Sodium Chloride Glucose Lactate FiO2 100.0 Potassium Carbon Dioxide Anion Gap BUN Creatinine Est GFR ( Amer) Est GFR (Non-Af Amer) Random Glucose Calcium Magnesium Total Bilirubin AST ALT Alkaline Phosphatase Troponin I NT-Pro-B Natriuret Pep Total Protein Albumin Globulin Albumin/Globulin Ratio Venous Blood Potassium - Imaging and Cardiology Chest x-ray Status: Image reviewed by me, Report reviewed by me CT scan - chest Status: Image reviewed by me, Report reviewed by me Assessment & Plan - Assessment and Plan (Free Text) Assessment: 62yo male with hypoxia and PNA Hypoxia PNA COPD ARF DM PVD Abnormal LFTs - currently febrile, normotensive, BP stable, lactate 4.6, AAOx3, in NAD, on BIPAP - CT chest done, and reviewed Recommend: - switch to high flow, as patient has hypoxia, High flow 50% 50LPM - duonebs PRN, Solumedrol 40mg IV BID - Abx, Vanco, Cefepime, Doxy - check Urine Lg, Strep, Procal - ID eval - cardiology eval - check RUQ sono, Hep panel - Rule out flu - FS control - IVF, NS 100cc/hr - Pulm follow up - ECHO - GI ppx - DVT ppx - Admit to MICU Critical care time 35 minutes
[2018-07-03] MEDS ORDERED: Lactated Ringer's 1,000 ML IV SCH (14:00)
[2018-07-03] MEDS ORDERED: Sodium Chloride 0.9% 1,000 ML IV SCH (14:00)
[2018-07-03] MEDS: Albuterol-Ipratrop 3 mg / 0.5 (3 ml) UD IH SCH ×2 (14:01→20:16)
[2018-07-03] MEDS ORDERED: Vancomycin 2 GM in Sodium Chloride 0.9% 500 ML IVPB ONE (14:12)
--- NOTE | 2018-07-03 14:20 | PCM.SEPTIC ---
Sepsis Progress Note - Reassessment Type Date of Evaluation: 07/03/18 Time of Evaluation: 13:40 Reassessment Type: Non-invasive reassessment - Non Invasive Reassessment Were the most recent vital sign reviewed: Yes Vital Sign (Latest): Temp Pulse Resp BP Pulse Ox 101.5 F H 114 H 43 H 110/75 100 07/03/18 13:31 07/03/18 14:03 07/03/18 13:00 07/03/18 13:00 07/03/18 13:31 Cardiovascular: Yes: Tachycardia. No: Chest Non Tender Respiratory: Yes: Crackles, Rhonchi Capillary Refill: Normal (Less than 2 sec) Skin: Normal Color, Warm, Dry
--- NOTE | 2018-07-03 14:41 | CP.PCM.CON ---
History of Present Illness - History of Present Illness History of Present Illness: 62 year old male with PMH of significant and active smoking history, COPD, HTN, DM, peripheral vascular disease, history of right elbow septic arthritis, history of right upper extremity cellulitis came in to [facility] [place] because of 2 days of fever and chills associated with shortness of breath as well as non-productive cough. He denies sick contacts and any recent travel outside of [place] in the past 3 months. He also denies nausea or vomiting, no abdominal pain, no diarrhea, has mild headache, feels lightheaded, no chest pain or palpitations. He denies rhinorrhea or sore throat, has generalized weakness and fatigue as well as difficulty breathing at rest. In the ED, he was noted to be hypoxic and CT chest is showing extensive alveolar infiltrates on the right lung. Infectious diseases consult is requested to further evaluate and manage. Review of Systems - Review of Systems All systems: reviewed and no additional remarkable complaints except (as per HPI) Past Patient History - Infectious Disease Hx of Infectious Diseases: None - Past Social History Smoking Status: Heavy Smoker > 10 Cigarettes Daily - CARDIAC Hx Cardiac Disorders: Yes Hx Hypertension: Yes - PULMONARY Hx Respiratory Disorders: No - NEUROLOGICAL Hx Neurological Disorder: Yes Other/Comment: Neuropathy bilat. foot. - HEENT Hx HEENT Problems: No - RENAL Hx Chronic Kidney Disease: No - ENDOCRINE/METABOLIC Hx Endocrine Disorders: Yes Hx Diabetes Mellitus Type 2: Yes - HEMATOLOGICAL/ONCOLOGICAL Hx Blood Disorders: Yes Hx Anemia: Yes Hx Blood Transfusions: Yes Hx Blood Transfusion Reaction: No - INTEGUMENTARY Other/Comment: right elbow red swollen warm to touch just started 01/17/16. pt hit elbow in work getting a pot, developed staph infection, picc line in for iv abx finished january 06, now elbow is getting red and swollen again. when pt came to er back in november for r elbow injury developed allergic reaction hives throat closed swollen eyes and lips. Pt does not know what from. pt sustained a 2nd degree burn 2016 at work to right forearm which is healed - MUSCULOSKELETAL/RHEUMATOLOGICAL Hx Musculoskeletal Disorders: No - GASTROINTESTINAL Hx Gastrointestinal Disorders: Yes (RECTAL BLEED 11-29-16 DX DIVERTICULITIS) Hx Diverticulitis: Yes - GENITOURINARY/GYNECOLOGICAL Hx Genitourinary Disorders: No - PSYCHIATRIC Hx Psychophysiologic Disorder: No Hx Substance Use: No - SURGICAL HISTORY Other/Comment: SIGMOIDOSCOPY. RIGHT KNEE ARTHROSCOPY. L INGUINAL HERNIORHAPY - ANESTHESIA Hx Anesthesia: Yes Hx Anesthesia Reactions: No Hx Malignant Hyperthermia: No Meds Allergies/Adverse Reactions: Allergies Allergy/AdvReac Type Severity Reaction Status Date / Time nut Allergy RASH Uncoded 11/29/16 22:27 fruit AdvReac RASH Uncoded 11/29/16 22:27 - Medications Medications: Current Medications Albuterol/Ipratropium (Duoneb 3 Mg/0.5 Mg (3 Ml) Ud) 3 ml IH [id number] JHON Last Admin: 07/03/18 14:01 Dose: 3 ml Albuterol/Ipratropium (Duoneb 3 Mg/0.5 Mg (3 Ml) Ud) 3 ml IH Q2H PRN PRN Reason: Shortness of Breath Heparin Sodium (Porcine) (Heparin) 5,000 units SC Q8 JHON; Protocol Doxycycline Hyclate 100 mg/ (Sodium Chloride) 100 mls @ 100 mls/hr IVPB Q12 JHON; Protocol Sodium Chloride (Sodium Chloride 0.9%) 1,000 mls @ 100 mls/hr IV .Q10H JHON Meropenem/Sodium Chloride (Merrem Iv 500 Mg/Ns 50 Ml) 500 mg in 50 mls @ 100 mls/hr IVPB Q12 JHON; Protocol Stop: 07/10/18 14:16 Vancomycin HCl 2 gm/ Sodium (Chloride) 500 mls @ 170 mls/hr IVPB ONCE ONE; Protocol Stop: 07/03/18 17:08 Methylprednisolone (Solu-Medrol) 40 mg IVP Q12 JHON Pantoprazole Sodium (Protonix Inj) 40 mg IVP DAILY JHON Physical Exam - Constitutional Appears: In Acute Distress, Other (awake but having difficulty breathing at rest) - Head Exam Head Exam: NORMAL INSPECTION - ENT Exam Additional comments: BiPAP mask over face - Neck Exam Neck exam: Negative for: Meningismus - Respiratory Exam Respiratory Exam: Decreased Breath Sounds (on the right sided with loud rhonchi) - Cardiovascular Exam Cardiovascular Exam: +S1, +S2 - GI/Abdominal Exam GI & Abdominal Exam: Soft. absent: Tenderness Results - Vital Signs Recent Vital Signs: Last Vital Signs Temp 101.5 F H 07/03/18 13:31 Pulse 114 H 07/03/18 14:03 Resp 43 H 07/03/18 13:00 BP 110/75 07/03/18 13:00 Pulse Ox 100 07/03/18 13:31 - Labs Result Diagrams: 07/03/18 09:25 07/03/18 09:25 Labs: Laboratory Results - last 24 hr 07/03/18 07/03/18 07/03/18 09:00 09:25 09:25 WBC 11.9 H RBC 4.33 Hgb 11.7 L Hct 37.1 L MCV 85.7 MCH 27.0 MCHC 31.5 RDW 16.9 H Plt Count 46 L* Gran % 92.4 H Lymph % (Auto) 4.9 L Geary % (Auto) 2.4 Eos % (Auto) 0.0 L Baso % (Auto) 0.3 Gran # 11.02 H Lymph # (Auto) 0.6 L Geary # (Auto) 0.3 Eos # (Auto) 0.0 Baso # (Auto) 0.03 Neutrophils % (Manual) 91 H Band Neutrophils % 1 Lymphocytes % (Manual) 7 L Monocytes % (Manual) 1 Platelet Evaluation Low pCO2 pO2 42 HCO3 ABG pH ABG Total CO2 ABG O2 Saturation ABG O2 Content ABG Base Excess ABG Hemoglobin ABG Carboxyhemoglobin POC ABG HHb (Measured) ABG Methemoglobin ABG O2 Capacity VBG pH 7.25 L VBG pCO2 41.0 VBG HCO3 18.0 L VBG Total CO2 19.3 L VBG O2 Sat (Calc) 75.7 H VBG Base Excess -8.8 L VBG Potassium 6.4 H* Hgb O2 Saturation Sodium 133.0 136 Chloride 100.0 104 Glucose 452 H* Lactate 4.6 H* FiO2 21.0 Potassium 5.8 H* D Carbon Dioxide 18 L Anion Gap 20 BUN 79 H Creatinine 2.6 H Est GFR ( Amer) 30 Est GFR (Non-Af Amer) 25 Random Glucose 420 H* D Calcium 8.4 Magnesium 2.2 Total Bilirubin 0.9 AST 307 H D ALT 224 H Alkaline Phosphatase 89 Troponin I 0.48 H* D NT-Pro-B Natriuret Pep 85227 H Total Protein 7.6 Albumin 4.5 Globulin 3.2 Albumin/Globulin Ratio 1.4 Venous Blood Potassium 6.4 H* 07/03/18 07/03/18 10:40 12:10 WBC RBC Hgb Hct MCV MCH MCHC RDW Plt Count Gran % Lymph % (Auto) Geary % (Auto) Eos % (Auto) Baso % (Auto) Gran # Lymph # (Auto) Geary # (Auto) Eos # (Auto) Baso # (Auto) Neutrophils % (Manual) Band Neutrophils % Lymphocytes % (Manual) Monocytes % (Manual) Platelet Evaluation pCO2 32 L pO2 173.0 H 67 H HCO3 15.4 L ABG pH 7.29 L ABG Total CO2 16.4 L ABG O2 Saturation 99.5 H ABG O2 Content 14.8 L ABG Base Excess -10.1 L ABG Hemoglobin 10.6 L ABG Carboxyhemoglobin 1.6 H POC ABG HHb (Measured) 0.5 ABG Methemoglobin 0.9 ABG O2 Capacity 14.9 L VBG pH 7.14 L* VBG pCO2 46.0 VBG HCO3 15.7 L VBG Total CO2 17.1 L VBG O2 Sat (Calc) 91.7 H VBG Base Excess -13.1 L VBG Potassium 4.9 Hgb O2 Saturation 97.0 Sodium 139.0 Chloride 106.0 Glucose 373 H Lactate 5.5 H* FiO2 100.0 21.0 Potassium Carbon Dioxide Anion Gap BUN Creatinine Est GFR ( Amer) Est GFR (Non-Af Amer) Random Glucose Calcium Magnesium Total Bilirubin AST ALT Alkaline Phosphatase Troponin I NT-Pro-B Natriuret Pep Total Protein Albumin Globulin Albumin/Globulin Ratio Venous Blood Potassium 4.9 Assessment & Plan - Assessment and Plan (Free Text) Plan: Assessment Severe sepsis with hypoxic respiratory failure and acute on chronic renal failure as well as thrombocytopenia due to severe right sided community-acquired pneumonia significant and active smoking history COPD HTN DM peripheral vascular disease history of right elbow septic arthritis history of right upper extremity cellulitis Plan Because of the severity of the pneumonia, we will give intermittent Vancomycin, start renally-adjusted Merrem and renally-adjusted Levaquin pending blood, sputum cx, PCT, urine Legionella Ag; reviewed CT chest will also get rapid Influenza testr has been given Rocephin and Zithromax in the ED patient is critically ill and is in the ICU for close observation, currently on BiPAP but discussed with ICU team that he need to be monitored closely since t here is concern that he may eventually need to be intubated if he gets worse
[2018-07-03] MEDS ORDERED: Etomidate 20 mg/10ml Inj IV ONE ×2 (15:11→16:12)
[2018-07-03] MEDS ORDERED: Propofol 10 mg/ml Inj (20 ML) ONE (15:12)
[2018-07-03] MEDS ORDERED: DOBUTamine 500mg/250ml D5W 500 MG/250 ML BAG IV PRN (15:26)
[2018-07-03] MEDS ORDERED: Heparin25000 units/250ml 1/2NS 25,000 UNITS/250 ML BAG IV SCH (15:30)
[2018-07-03] MEDS ORDERED: Propofol 10 mg/ml 1,000 MG/100 ML VIAL ONE (15:32)
[2018-07-03] MEDS: Propofol 10 mg/ml 1,000 MG/100 ML VIAL IV PRN ×2 (15:35→20:24)
[2018-07-03 15:50] LABS: INR 1.59; PARTIAL THROMBOPLASTIN TIME 31.5 Seconds (25.1-36.5); PROTHROMBIN TIME 18.3 SECONDS (9.4-12.5)
[2018-07-03] MEDS: Heparin 25,000units in 1/2NS 250 ML BAG IV SCH (16:08)
[2018-07-03] MEDS: MEROPENEM 500 MG in NS 500 MG/50 ML BAG IVPB SCH ×2 (16:09→22:02)
[2018-07-03 16:15] LABS: ARTERIAL BLOOD GAS HCO3 18.3 mmol/L (21-28); ARTERIAL BLOOD GAS HEMOGLOBIN 9.9 g/dL (11.7-17.4); ARTERIAL BLOOD GAS O2 CAPACITY 13.8 mL/dl (16-24); ARTERIAL BLOOD GAS O2 CONTENT 13.5 ML/dl (15-23); ARTERIAL BLOOD GAS O2 SAT 98.1 % (95-98); ARTERIAL BLOOD GAS PCO2 39 mm/Hg (35-45); ARTERIAL BLOOD GAS PH 7.28 (7.35-7.45); ARTERIAL BLOOD GAS TCO2 19.5 mmol.L (22-28)
--- NOTE | 2018-07-03 16:19 | RAD ---
Date of service: 07/03/2018 HISTORY: intubation COMPARISON: July 03, 2018 Time of the most recent examination: 08:36. FINDINGS: LUNGS: Stable pulmonary parenchymal infiltrates primarily affecting right lung. PLEURA: No significant pleural effusion identified, no pneumothorax apparent. CARDIOVASCULAR: Atherosclerotic calcifications identified primarily aortic arch. No change. OSSEOUS STRUCTURES: No significant abnormalities. VISUALIZED UPPER ABDOMEN: Normal. OTHER FINDINGS: Satisfactory position recently placed endotracheal tube. IMPRESSION: Stable pulmonary parenchymal infiltrates primarily affecting right lung. Satisfactory position of recently placed endotracheal tube.
[2018-07-03] MEDS ORDERED: Midazolam 2 MG/2 ML VIAL IVP ONE (16:44)
[2018-07-03] MEDS: Fentanyl 1000mcg/100ml NS 1,000 MCG/100 ML BAG IV PRN (17:00)
[2018-07-03 17:05] VITALS: BMI 31.0
[2018-07-03] MEDS ORDERED: Pneumococcal 23-Valent Vaccine IM ONE (17:05)
[2018-07-03] MEDS ORDERED: Influenza Vaccine 60 mcg/0.5 mL SYR (4YR UP) IM ONE (17:05)
--- NOTE | 2018-07-03 17:24 | CARD ---
APPROVED REPORT Date of service: 07/03/2018 EXAM: Two-dimensional and M-mode echocardiogram with Doppler and color Doppler. INDICATION PNA,ELEVATED BNP 2D DIMENSIONS RVDd4.6 (2.9-3.5cm)Left Atrium (2D)5.1 (1.6-4.0cm) IVSd1.2 (0.7-1.1cm)LVDd6.4 (3.9-5.9cm) PWd1.1 (0.7-1.1cm)LVDs6.0 (2.5-4.0cm) FS (%) 6.5 %LVEF (%)14.2 (>50%) M-Mode DIMENSIONS Aortic Root4.60 (2.2-3.7cm)Aortic Cusp Exc.2.00 (1.5-2.0cm) Aortic Valve AoV Peak Bytmpkqz18.0cm/Robson Peak GR.3mmHg Mitral Valve E/A ratio0.0 TDI E/Lateral E'0.0E/Medial E'0.0 Pulmonary Valve PV Peak Mhjeabzn25.9cm/sPV Peak Grad.1mmHg Tricuspid Valve TR Peak [id number] [id number] Peak Gr.38mmHg [id number] LEFT VENTRICLE The Left Ventricle is mildly dilated. There is normal left ventricular wall thickness. The systolic function is severely impaired. akinetic septum RIGHT VENTRICLE The right ventricle is moderately dilated and severly hypokinetic There is normal right ventricular wall thickness. Systolic function is severely reduced. ATRIA The left atrium is moderately dilated. The right atrium is moderately dilated. AORTIC VALVE The aortic valve is moderately thickened. No aortic regurgitation is present. There is no aortic valvular stenosis. MITRAL VALVE The mitral valve is mildly thickened. Mitral regurgitation is mild to moderate. There is no mitral valve stenosis. TRICUSPID VALVE There is moderate tricuspid regurgitation. There is moderate pulmonary hypertension. PULMONIC VALVE There is mild pulmonic valvular regurgitation. GREAT VESSELS The aortic root is mildly enlarged. The IVC is dilated. <Conclusion> The Left Ventricle is mildly dilated. The systolic function is severely impaired. akinetic septum The right ventricle is moderately dilated and severly hypokinetic Mitral regurgitation is mild to moderate. There is moderate tricuspid regurgitation. There is moderate pulmonary hypertension. The aortic root is mildly enlarged.
[2018-07-03] MEDS ORDERED: Insulin Reg-MEDIUM-Coverage SC STA (18:48)
--- NOTE | 2018-07-03 20:22 | CARD ---
APPROVED REPORT Date of service: 07/03/2018 EKG Measurement Heart [id number] <Conclusion> Sinus tachycardia Possible Left atrial enlargement ST & T wave abnormality, consider inferolateral ischemia Abnormal ECG
[2018-07-03 20:45] LABS: CALCIUM 7.9 mg/dL (8.4-10.5)
[2018-07-03 21:35] LABS: HEPATITIS B SURFACE AG Negative (NEGATIVE)
[2018-07-03 21:41] LABS: HEPATITIS A IGM NEGATIVE (NEGATIVE); HEPATITIS B CORE AB NEGATIVE (NEGATIVE)
[2018-07-03 21:52] LABS: HEPATITIS C ANTIBODY NEGATIVE (NEGATIVE)
[2018-07-03] MEDS ORDERED: AMIKACIN IVPB ONE (22:00)
[2018-07-03] MEDS ORDERED: WATER IVPB ONE (22:00)
[2018-07-03] MEDS ORDERED: DEXTROSE 5% IVPB ONE (22:00)
[2018-07-03] MEDS: MethylPREDNISolone 40 mg Vial IVP SCH (22:02)
[2018-07-03] MEDS: Insulin Reg-MEDIUM-Coverage SC SCH (23:18)
[2018-07-03 23:28] LABS: URINE BILIRUBIN NEGATIVE (NEGATIVE); URINE BLOOD LARGE (NEGATIVE); URINE GLUCOSE (UA) NEGATIVE (NEGATIVE); URINE LEUKOCYTE ESTERASE SMALL Leu/uL (NEGATIVE); URINE PROTEIN TRACE mg/dL (<30 mg/dL); URINE UROBILINOGEN 0.2 E.U./dL (<1 E.U./dL)
[2018-07-03 23:48] LABS: URINE COLOR YELLOW (YELLOW)
[2018-07-03 23:49] LABS: URINE APPEARANCE SL CLOUDY (CLEAR)
[2018-07-03 23:52] LABS: URINE RBC 15 - 20 /hpf (0-2)
[2018-07-03 23:53] LABS: URINE BACTERIA FEW /hpf; URINE EPITHELIAL CELLS 0 - 2 /hpf (0-5)
[2018-07-04] MEDS: Propofol 10 mg/ml 1,000 MG/100 ML VIAL IV PRN ×5 (01:08→21:54)
[2018-07-04] MEDS: Albuterol-Ipratrop 3 mg / 0.5 (3 ml) UD IH SCH ×5 (01:40→19:39)
[2018-07-04 05:56] LABS: BASO # 0.01 K/mm3 (0.0-2.0); BASO % 0.1 % (0.0-3.0); GRAN # 11.18 (1.4-6.5); GRAN % 94.3 % (50.0-68.0); LYMPH # 0.4 (1.2-3.4); LYMPH % 3.7 % (22.0-35.0); MEAN CELL VOLUME 85.4 fl (80.0-105.0); MEAN CORPUSCULAR HEMOGLOBIN 26.8 pg (25.0-35.0); MEAN CORPUSCULAR HGB CONC 31.3 g/dl (31.0-37.0); MONO # 0.2 (0.1-0.6); MONO % 1.9 % (1.0-6.0); RBC 4.11 10^6/uL (3.5-6.1); RED CELL DISTRIBUTION WIDTH 16.9 % (11.5-14.5); WHITE BLOOD COUNT 11.9 10^3/uL (4.5-11.0)
[2018-07-04 06:08] LABS: PLATELET COUNT 23 10^3/uL (120.0-450.0)
[2018-07-04 06:16] LABS: ALB/GLOB RATIO 1.4 (1.1-1.8); CALCIUM 8.3 mg/dL (8.4-10.5)
[2018-07-04] MEDS: levoFLOXacin 500 mg in D5W 500 MG/100 ML BAG IVPB SCH (06:29)
[2018-07-04 06:58] LABS: ARTERIAL BLOOD GAS HCO3 18.2 mmol/L (21-28); ARTERIAL BLOOD GAS HEMOGLOBIN 9.8 g/dL (11.7-17.4); ARTERIAL BLOOD GAS O2 CAPACITY 13.6 mL/dl (16-24); ARTERIAL BLOOD GAS O2 SAT 95.4 % (95-98); ARTERIAL BLOOD GAS PCO2 33 mm/Hg (35-45); ARTERIAL BLOOD GAS PH 7.35 (7.35-7.45); ARTERIAL BLOOD GAS TCO2 19.2 mmol.L (22-28)
--- NOTE | 2018-07-04 07:01 | CP.CCUPN ---
<Ismael Turner - Last Filed: 07/04/18 11:26> CCU Subjective - Physician Review Subjective (Free Text): Ismael Turner PGY-1 Progress Note for ICU Patient seen and evaluated at bedside. No acute events overnight. Tmax was 102.7 overnight. Currently sedated on Propofol and Fentanyl drips. Further ROS was unobtainable at this time due to clinical condition. CCU Objective - Vital Signs / Intake & Output Intake and Output (Last 8hrs): Intake & Output 07/03/18 07/03/18 07/04/18 14:59 22:59 06:59 Intake Total 3074.0 220 Output Total 400 Balance 2674.0 220 Weight 83.915 kg 92.7 kg Intake: IV 3074.0 220 Left Forearm 2000 Left Hand 76 Right Forearm 750 Right Hand 88 Output: Urine 400 Urethral (Ash) 400 Other: Voiding Method Indwelling Catheter - Physical Exam Head: Positive for: Atraumatic, Normocephalic Pupils: Positive for: PERRL Conjunctiva: Positive for: Normal Pharnyx: Positive for: Other (Intubated, currently at 60/5/16/450) Respiratory/Chest: Positive for: Wheezes (mild expiratory wheeze noted to anterior field), Decreased Breath Sounds, Tachypneic, Other (labored breathing; able to speak in short sentences ). Negative for: Respiratory Distress Cardiovascular: Positive for: Regular Rate and Rhythm, Normal S1, S2. Negative for: Murmurs Abdomen: Positive for: Distention. Negative for: Tenderness, Peritoneal Signs Back: Positive for: Normal Inspection Upper Extremity: Positive for: Normal Inspection. Negative for: Cyanosis, Edema Lower Extremity: Positive for: Edema (2+ pitting edema noted to right lower extremity; chronic diabetic ulcer noted to anterior anderson of left lower extremity ) Neurological: Positive for: GCS=15, CN II-XII Intact Skin: Positive for: Warm, Dry, Normal Color. Negative for: Rashes Psychiatric: Positive for: Alert, Oriented x 3, Normal Insight, Normal Concentration - Medications Active Medications: Active Medications Generic Name Dose Route Start Last Admin Trade Name Freq PRN Reason Stop Dose Admin Albuterol/Ipratropium 3 ml 07/03/18 14:00 07/04/18 02:10 Duoneb 3 Mg/0.5 Mg (3 Ml) Ud IH 3 ml [id number] SEEMA Administration Albuterol/Ipratropium 3 ml 07/03/18 11:04 Duoneb 3 Mg/0.5 Mg (3 Ml) Ud IH Q2H PRN Shortness of Breath Meropenem/Sodium Chloride 500 mg in 50 mls @ 100 mls/hr 07/03/18 14:15 1 09/03/17 22:02 Merrem Iv 500 Mg/Ns 50 Ml IVPB 07/10/18 14:16 100 mls/hr Q12 SEEMA Administration Protocol Levofloxacin/Dextrose 500 mg in 100 mls @ 100 mls/hr 07/04/18 07:00 07/04/18 06:29 Levaquin 500mg IVPB 100 mls/hr Q48H SEEMA Administration Protocol Dobutamine HCl/Dextrose 500 mg in 250 mls @ 6.294 mls/hr 07/03/18 15:26 07/03/18 16:06 Dobutamine/Dextrose 5% 500mg/250ml IV 6.294 mls/hr .Q24H PRN Administration Systolic Blood Pressure 2.5 MCG/KG/MIN Heparin Sodium/Sodium Chloride 25,000 units in 250 mls @ 11.158 mls/hr 07/03/18 16:15 07/03/18 16:08 Heparin 99971 Units/250ml 1/2 Normal Saline IV 12 units/kg/hr .[id number] SEEMA 11.158 mls/hr Administration Protocol 12 UNITS/KG/HR Propofol 1,000 mg in 100 mls @ 2.79 mls/hr 07/03/18 16:11 07/04/18 06:29 Diprivan IV 35 mcg/kg/min .Q24H PRN 19.527 mls/hr TITRATE PER MD ORDER Administration Protocol 5 MCG/KG/MIN Fentanyl Citrate 1,000 mcg in 100 mls @ 10 mls/hr 07/03/18 16:44 07/04/18 06:30 Fentanyl Citrate/Sodium Chloride 1 Mg/100 Ml IV 50 mcg/hr .Q10H PRN 5 mls/hr TITRATE PER MD ORDER Titration Protocol 100 MCG/HR Insulin Human Regular 0 units 07/03/18 22:00 07/03/18 23:18 Humulin R Med SC 2 units ACHS [facility] Administration Protocol Methylprednisolone 40 mg 07/03/18 22:00 07/03/18 22:02 Solu-Medrol IVP 40 mg Q12 SEEMA Administration Oseltamivir Phosphate 30 mg 07/04/18 10:00 Tamiflu Susp PO DAILY [facility] Protocol Pantoprazole Sodium 40 mg 07/03/18 14:15 07/03/18 14:37 Protonix Inj IVP 40 mg DAILY SEEMA Administration - Patient Studies Lab Studies: Lab Studies 07/04/18 07/04/18 07/04/18 Range/Units 05:00 05:00 05:00 WBC 11.9 H (4.5-11.0) 10^3/uL RBC 4.11 (3.5-6.1) 10^6/uL Hgb 11.0 L (14.0-18.0) g/dL Hct 35.1 L (42.0-52.0) % MCV 85.4 (80.0-105.0) fl MCH 26.8 (25.0-35.0) pg MCHC 31.3 (31.0-37.0) g/dl RDW 16.9 H (11.5-14.5) % Plt Count 23 L* (120.0-450.0) 10^3/uL Gran % 94.3 H (50.0-68.0) % Lymph % (Auto) 3.7 L (22.0-35.0) % [place] % (Auto) 1.9 (1.0-6.0) % Eos % (Auto) 0.0 L (1.5-5.0) % Baso % (Auto) 0.1 (0.0-3.0) % Gran # 11.18 H (1.4-6.5) Lymph # (Auto) 0.4 L (1.2-3.4) [place] # (Auto) 0.2 (0.1-0.6) Eos # (Auto) 0.0 (0.0-0.7) Baso # (Auto) 0.01 (0.0-2.0) K/mm3 Neutrophils % (Manual) (50.0-70.0) % Band Neutrophils % (0-2) % Lymphocytes % (Manual) (22.0-35.0) % Monocytes % (Manual) (1.0-6.0) % Platelet Evaluation (NORMAL) PT (9.4-12.5) SECONDS INR APTT 87.2 H (25.1-36.5) Seconds pCO2 (35-45) mm/Hg pO2 (30-55) mm/Hg HCO3 (21-28) mmol/L ABG pH (7.35-7.45) ABG Total CO2 (22-28) mmol.L ABG O2 Saturation (95-98) % ABG O2 Content (15-23) ML/dl ABG Base Excess (-2.0-3.0) mmol/L ABG Hemoglobin (11.7-17.4) g/dL ABG Carboxyhemoglobin (0.5-1.5) % POC ABG HHb (Measured) (0-5) % ABG Methemoglobin (0.0-3.0) % ABG O2 Capacity (16-24) mL/dl VBG pH (7.32-7.43) VBG pCO2 (40-60) VBG HCO3 (21-28) mmol/l VBG Total CO2 (22-28) mmol.L VBG O2 Sat (Calc) (40-65) % VBG Base Excess (0.0-2.0) mmol/L VBG Potassium (3.6-5.2) mmol/L Hgb O2 Saturation (95.0-98.0) % Sodium 141 (132-148) mmol/L Chloride 107 (98-107) mmol/L Glucose (75-110) mg/dl Lactate (0.7-2.1) mmol/L FiO2 % Potassium 5.2 H (3.6-5.0) mmol/L Carbon Dioxide 25 (21-33) mmol/L Anion Gap 15 (10-20) BUN 85 H (7-21) mg/dL Creatinine 2.5 H (0.8-1.5) mg/dl Est GFR ( Amer) 32 Est GFR (Non-Af Amer) 26 POC Glucose (mg/dL) (65-110) mg/dL Random Glucose 208 H (70-110) mg/dL Hemoglobin A1c (4.2-6.5) % Lactic Acid (0.7-2.1) mmol/L Calcium 8.3 L (8.4-10.5) mg/dL Magnesium (1.7-2.2) mg/dL Total Bilirubin 0.7 (0.2-1.3) mg/dL AST 543 H D (17-59) U/L ALT 409 H (7-56) U/L Alkaline Phosphatase 72 (38-126) U/L Troponin I ng/mL NT-Pro-B Natriuret Pep (0-450) pg/mL Total Protein 7.0 (5.8-8.3) g/dL Albumin 4.0 (3.0-4.8) g/dL Globulin 3.0 gm/dL Albumin/Globulin Ratio 1.4 (1.1-1.8) Triglycerides 172 H (35-160) mg/dL Cholesterol 162 (130-200) mg/dL LDL Cholesterol Direct 97 (0-129) mg/dL HDL Cholesterol 30 (29-60) mg/dL Procalcitonin (0.19-0.49) NG/ML Venous Blood Potassium (3.6-5.2) mmol/L Urine Color (YELLOW) Urine Appearance (CLEAR) Urine pH (4.7-8.0) Ur Specific [place] (1.005-1.035) Urine Protein (<30 mg/dL) mg/dL Urine Glucose (UA) (NEGATIVE) mg/dL Urine Ketones (NEGATIVE) mg/dL Urine Blood (NEGATIVE) Urine Nitrate (NEGATIVE) Urine Bilirubin (NEGATIVE) Urine Urobilinogen (<1 E.U./dL) E.U./dL Ur Leukocyte Esterase (NEGATIVE) Dani/uL Urine RBC (0-2) /hpf Urine WBC (0-6) /hpf Ur Epithelial Cells (0-5) /hpf Urine Bacteria (NONE) /hpf Hepatitis A IgM Ab (NEGATIVE) Hep Bs Antigen (NEGATIVE) Hep B Core IgM Ab (NEGATIVE) Hepatitis C Antibody (NEGATIVE) Influenza Typ A,B (EIA) (NEGATIVE) 07/03/18 07/03/18 07/03/18 Range/Units 23:15 22:00 20:15 WBC (4.5-11.0) 10^3/uL RBC (3.5-6.1) 10^6/uL Hgb (14.0-18.0) g/dL Hct (42.0-52.0) % MCV (80.0-105.0) fl MCH (25.0-35.0) pg MCHC (31.0-37.0) g/dl RDW (11.5-14.5) % Plt Count (120.0-450.0) 10^3/uL Gran % (50.0-68.0) % Lymph % (Auto) (22.0-35.0) % [place] % (Auto) (1.0-6.0) % Eos % (Auto) (1.5-5.0) % Baso % (Auto) (0.0-3.0) % Gran # (1.4-6.5) Lymph # (Auto) (1.2-3.4) [place] # (Auto) (0.1-0.6) Eos # (Auto) (0.0-0.7) Baso # (Auto) (0.0-2.0) K/mm3 Neutrophils % (Manual) (50.0-70.0) % Band Neutrophils % (0-2) % Lymphocytes % (Manual) (22.0-35.0) % Monocytes % (Manual) (1.0-6.0) % Platelet Evaluation (NORMAL) PT (9.4-12.5) SECONDS INR APTT 69.8 H (25.1-36.5) Seconds pCO2 (35-45) mm/Hg pO2 (30-55) mm/Hg HCO3 (21-28) mmol/L ABG pH (7.35-7.45) ABG Total CO2 (22-28) mmol.L ABG O2 Saturation (95-98) % ABG O2 Content (15-23) ML/dl ABG Base Excess (-2.0-3.0) mmol/L ABG Hemoglobin (11.7-17.4) g/dL ABG Carboxyhemoglobin (0.5-1.5) % POC ABG HHb (Measured) (0-5) % ABG Methemoglobin (0.0-3.0) % ABG O2 Capacity (16-24) mL/dl VBG pH (7.32-7.43) VBG pCO2 (40-60) VBG HCO3 (21-28) mmol/l VBG Total CO2 (22-28) mmol.L VBG O2 Sat (Calc) (40-65) % VBG Base Excess (0.0-2.0) mmol/L VBG Potassium (3.6-5.2) mmol/L Hgb O2 Saturation (95.0-98.0) % Sodium 137 (132-148) mmol/L Chloride 107 (98-107) mmol/L Glucose (75-110) mg/dl Lactate (0.7-2.1) mmol/L FiO2 % Potassium 4.6 (3.6-5.0) mmol/L Carbon Dioxide 21 (21-33) mmol/L Anion Gap 13 (10-20) BUN 86 H (7-21) mg/dL Creatinine 2.8 H (0.8-1.5) mg/dl Est GFR ( Amer) 28 Est GFR (Non-Af Amer) 23 POC Glucose (mg/dL) 308 H (65-110) mg/dL Random Glucose 372 H* (70-110) mg/dL Hemoglobin A1c (4.2-6.5) % Lactic Acid (0.7-2.1) mmol/L Calcium 7.9 L (8.4-10.5) mg/dL Magnesium (1.7-2.2) mg/dL Total Bilirubin (0.2-1.3) mg/dL AST (17-59) U/L ALT (7-56) U/L Alkaline Phosphatase (38-126) U/L Troponin I ng/mL NT-Pro-B Natriuret Pep (0-450) pg/mL Total Protein (5.8-8.3) g/dL Albumin (3.0-4.8) g/dL Globulin gm/dL Albumin/Globulin Ratio (1.1-1.8) Triglycerides (35-160) mg/dL Cholesterol (130-200) mg/dL LDL Cholesterol Direct (0-129) mg/dL HDL Cholesterol (29-60) mg/dL Procalcitonin (0.19-0.49) NG/ML Venous Blood Potassium (3.6-5.2) mmol/L Urine Color (YELLOW) Urine Appearance (CLEAR) Urine pH (4.7-8.0) Ur Specific [place] (1.005-1.035) Urine Protein (<30 mg/dL) mg/dL Urine Glucose (UA) (NEGATIVE) mg/dL Urine Ketones (NEGATIVE) mg/dL Urine Blood (NEGATIVE) Urine Nitrate (NEGATIVE) Urine Bilirubin (NEGATIVE) Urine Urobilinogen (<1 E.U./dL) E.U./dL Ur Leukocyte Esterase (NEGATIVE) Dani/uL Urine RBC (0-2) /hpf Urine WBC (0-6) /hpf Ur Epithelial Cells (0-5) /hpf Urine Bacteria (NONE) /hpf Hepatitis A IgM Ab (NEGATIVE) Hep Bs Antigen (NEGATIVE) Hep B Core IgM Ab (NEGATIVE) Hepatitis C Antibody (NEGATIVE) Influenza Typ A,B (EIA) (NEGATIVE) 07/03/18 07/03/18 07/03/18 Range/Units 20:15 20:10 20:10 WBC (4.5-11.0) 10^3/uL RBC (3.5-6.1) 10^6/uL Hgb (14.0-18.0) g/dL Hct (42.0-52.0) % MCV (80.0-105.0) fl MCH (25.0-35.0) pg MCHC (31.0-37.0) g/dl RDW (11.5-14.5) % Plt Count (120.0-450.0) 10^3/uL Gran % (50.0-68.0) % Lymph % (Auto) (22.0-35.0) % [place] % (Auto) (1.0-6.0) % Eos % (Auto) (1.5-5.0) % Baso % (Auto) (0.0-3.0) % Gran # (1.4-6.5) Lymph # (Auto) (1.2-3.4) [place] # (Auto) (0.1-0.6) Eos # (Auto) (0.0-0.7) Baso # (Auto) (0.0-2.0) K/mm3 Neutrophils % (Manual) (50.0-70.0) % Band Neutrophils % (0-2) % Lymphocytes % (Manual) (22.0-35.0) % Monocytes % (Manual) (1.0-6.0) % Platelet Evaluation (NORMAL) PT (9.4-12.5) SECONDS INR APTT (25.1-36.5) Seconds pCO2 (35-45) mm/Hg pO2 (30-55) mm/Hg HCO3 (21-28) mmol/L ABG pH (7.35-7.45) ABG Total CO2 (22-28) mmol.L ABG O2 Saturation (95-98) % ABG O2 Content (15-23) ML/dl ABG Base Excess (-2.0-3.0) mmol/L ABG Hemoglobin (11.7-17.4) g/dL ABG Carboxyhemoglobin (0.5-1.5) % POC ABG HHb (Measured) (0-5) % ABG Methemoglobin (0.0-3.0) % ABG O2 Capacity (16-24) mL/dl VBG pH (7.32-7.43) VBG pCO2 (40-60) VBG HCO3 (21-28) mmol/l VBG Total CO2 (22-28) mmol.L VBG O2 Sat (Calc) (40-65) % VBG Base Excess (0.0-2.0) mmol/L VBG Potassium (3.6-5.2) mmol/L Hgb O2 Saturation (95.0-98.0) % Sodium (132-148) mmol/L Chloride (98-107) mmol/L Glucose (75-110) mg/dl Lactate (0.7-2.1) mmol/L FiO2 % Potassium (3.6-5.0) mmol/L Carbon Dioxide (21-33) mmol/L Anion Gap (10-20) BUN (7-21) mg/dL Creatinine (0.8-1.5) mg/dl Est GFR ( Amer) Est GFR (Non-Af Amer) POC Glucose (mg/dL) (65-110) mg/dL Random Glucose (70-110) mg/dL Hemoglobin A1c (4.2-6.5) % Lactic Acid (0.7-2.1) mmol/L Calcium (8.4-10.5) mg/dL Magnesium (1.7-2.2) mg/dL Total Bilirubin (0.2-1.3) mg/dL AST (17-59) U/L ALT (7-56) U/L Alkaline Phosphatase (38-126) U/L Troponin I 0.67 H* ng/mL NT-Pro-B Natriuret Pep (0-450) pg/mL Total Protein (5.8-8.3) g/dL Albumin (3.0-4.8) g/dL Globulin gm/dL Albumin/Globulin Ratio (1.1-1.8) Triglycerides (35-160) mg/dL Cholesterol (130-200) mg/dL LDL Cholesterol Direct (0-129) mg/dL HDL Cholesterol (29-60) mg/dL Procalcitonin (0.19-0.49) NG/ML Venous Blood Potassium (3.6-5.2) mmol/L Urine Color Yellow (YELLOW) Urine Appearance Sl cloudy (CLEAR) Urine pH 6.0 (4.7-8.0) Ur Specific [place] 1.020 (1.005-1.035) Urine Protein Trace H (<30 mg/dL) mg/dL Urine Glucose (UA) Negative (NEGATIVE) mg/dL Urine Ketones Negative (NEGATIVE) mg/dL Urine Blood Large H (NEGATIVE) Urine Nitrate Negative (NEGATIVE) Urine Bilirubin Negative (NEGATIVE) Urine Urobilinogen 0.2 (<1 E.U./dL) E.U./dL Ur Leukocyte Esterase Small H (NEGATIVE) Dani/uL Urine RBC 15 - 20 H (0-2) /hpf Urine WBC 2 - 5 (0-6) /hpf Ur Epithelial Cells 0 - 2 (0-5) /hpf Urine Bacteria Few (NONE) /hpf Hepatitis A IgM Ab (NEGATIVE) Hep Bs Antigen (NEGATIVE) Hep B Core IgM Ab (NEGATIVE) Hepatitis C Antibody (NEGATIVE) Influenza Typ A,B (EIA) Pos for influenza a H (NEGATIVE) 07/03/18 07/03/18 07/03/18 Range/Units 18:44 16:13 15:35 WBC (4.5-11.0) 10^3/uL RBC (3.5-6.1) 10^6/uL Hgb (14.0-18.0) g/dL Hct (42.0-52.0) % MCV (80.0-105.0) fl MCH (25.0-35.0) pg MCHC (31.0-37.0) g/dl RDW (11.5-14.5) % Plt Count (120.0-450.0) 10^3/uL Gran % (50.0-68.0) % Lymph % (Auto) (22.0-35.0) % [place] % (Auto) (1.0-6.0) % Eos % (Auto) (1.5-5.0) % Baso % (Auto) (0.0-3.0) % Gran # (1.4-6.5) Lymph # (Auto) (1.2-3.4) [place] # (Auto) (0.1-0.6) Eos # (Auto) (0.0-0.7) Baso # (Auto) (0.0-2.0) K/mm3 Neutrophils % (Manual) (50.0-70.0) % Band Neutrophils % (0-2) % Lymphocytes % (Manual) (22.0-35.0) % Monocytes % (Manual) (1.0-6.0) % Platelet Evaluation (NORMAL) PT 18.3 H (9.4-12.5) SECONDS INR 1.59 APTT 31.5 (25.1-36.5) Seconds pCO2 39 (35-45) mm/Hg pO2 93.0 (30-55) mm/Hg HCO3 18.3 L (21-28) mmol/L ABG pH 7.28 L (7.35-7.45) ABG Total CO2 19.5 L (22-28) mmol.L ABG O2 Saturation 98.1 H (95-98) % ABG O2 Content 13.5 L (15-23) ML/dl ABG Base Excess -7.9 L (-2.0-3.0) mmol/L ABG Hemoglobin 9.9 L (11.7-17.4) g/dL ABG Carboxyhemoglobin 1.4 (0.5-1.5) % POC ABG HHb (Measured) 1.9 (0-5) % ABG Methemoglobin 0.6 (0.0-3.0) % ABG O2 Capacity 13.8 L (16-24) mL/dl VBG pH (7.32-7.43) VBG pCO2 (40-60) VBG HCO3 (21-28) mmol/l VBG Total CO2 (22-28) mmol.L VBG O2 Sat (Calc) (40-65) % VBG Base Excess (0.0-2.0) mmol/L VBG Potassium (3.6-5.2) mmol/L Hgb O2 Saturation 96.1 (95.0-98.0) % Sodium (132-148) mmol/L Chloride (98-107) mmol/L Glucose (75-110) mg/dl Lactate (0.7-2.1) mmol/L FiO2 60.0 % Potassium (3.6-5.0) mmol/L Carbon Dioxide (21-33) mmol/L Anion Gap (10-20) BUN (7-21) mg/dL Creatinine (0.8-1.5) mg/dl Est GFR ( Amer) Est GFR (Non-Af Amer) POC Glucose (mg/dL) 368 H (65-110) mg/dL Random Glucose (70-110) mg/dL Hemoglobin A1c (4.2-6.5) % Lactic Acid (0.7-2.1) mmol/L Calcium (8.4-10.5) mg/dL Magnesium (1.7-2.2) mg/dL Total Bilirubin (0.2-1.3) mg/dL AST (17-59) U/L ALT (7-56) U/L Alkaline Phosphatase (38-126) U/L Troponin I ng/mL NT-Pro-B Natriuret Pep (0-450) pg/mL Total Protein (5.8-8.3) g/dL Albumin (3.0-4.8) g/dL Globulin gm/dL Albumin/Globulin Ratio (1.1-1.8) Triglycerides (35-160) mg/dL Cholesterol (130-200) mg/dL LDL Cholesterol Direct (0-129) mg/dL HDL Cholesterol (29-60) mg/dL Procalcitonin (0.19-0.49) NG/ML Venous Blood Potassium (3.6-5.2) mmol/L Urine Color (YELLOW) Urine Appearance (CLEAR) Urine pH (4.7-8.0) Ur Specific [place] (1.005-1.035) Urine Protein (<30 mg/dL) mg/dL Urine Glucose (UA) (NEGATIVE) mg/dL Urine Ketones (NEGATIVE) mg/dL Urine Blood (NEGATIVE) Urine Nitrate (NEGATIVE) Urine Bilirubin (NEGATIVE) Urine Urobilinogen (<1 E.U./dL) E.U./dL Ur Leukocyte Esterase (NEGATIVE) Dani/uL Urine RBC (0-2) /hpf Urine WBC (0-6) /hpf Ur Epithelial Cells (0-5) /hpf Urine Bacteria (NONE) /hpf Hepatitis A IgM Ab (NEGATIVE) Hep Bs Antigen (NEGATIVE) Hep B Core IgM Ab (NEGATIVE) Hepatitis C Antibody (NEGATIVE) Influenza Typ A,B (EIA) (NEGATIVE) 07/03/18 07/03/18 07/03/18 Range/Units 15:35 15:35 15:35 WBC (4.5-11.0) 10^3/uL RBC (3.5-6.1) 10^6/uL Hgb (14.0-18.0) g/dL Hct (42.0-52.0) % MCV (80.0-105.0) fl MCH (25.0-35.0) pg MCHC (31.0-37.0) g/dl RDW (11.5-14.5) % Plt Count (120.0-450.0) 10^3/uL Gran % (50.0-68.0) % Lymph % (Auto) (22.0-35.0) % [place] % (Auto) (1.0-6.0) % Eos % (Auto) (1.5-5.0) % Baso % (Auto) (0.0-3.0) % Gran # (1.4-6.5) Lymph # (Auto) (1.2-3.4) [place] # (Auto) (0.1-0.6) Eos # (Auto) (0.0-0.7) Baso # (Auto) (0.0-2.0) K/mm3 Neutrophils % (Manual) (50.0-70.0) % Band Neutrophils % (0-2) % Lymphocytes % (Manual) (22.0-35.0) % Monocytes % (Manual) (1.0-6.0) % Platelet Evaluation (NORMAL) PT (9.4-12.5) SECONDS INR APTT (25.1-36.5) Seconds pCO2 (35-45) mm/Hg pO2 (30-55) mm/Hg HCO3 (21-28) mmol/L ABG pH (7.35-7.45) ABG Total CO2 (22-28) mmol.L ABG O2 Saturation (95-98) % ABG O2 Content (15-23) ML/dl ABG Base Excess (-2.0-3.0) mmol/L ABG Hemoglobin (11.7-17.4) g/dL ABG Carboxyhemoglobin (0.5-1.5) % POC ABG HHb (Measured) (0-5) % ABG Methemoglobin (0.0-3.0) % ABG O2 Capacity (16-24) mL/dl VBG pH (7.32-7.43) VBG pCO2 (40-60) VBG HCO3 (21-28) mmol/l VBG Total CO2 (22-28) mmol.L VBG O2 Sat (Calc) (40-65) % VBG Base Excess (0.0-2.0) mmol/L VBG Potassium (3.6-5.2) mmol/L Hgb O2 Saturation (95.0-98.0) % Sodium (132-148) mmol/L Chloride (98-107) mmol/L Glucose (75-110) mg/dl Lactate (0.7-2.1) mmol/L FiO2 % Potassium (3.6-5.0) mmol/L Carbon Dioxide (21-33) mmol/L Anion Gap (10-20) BUN (7-21) mg/dL Creatinine (0.8-1.5) mg/dl Est GFR ( Amer) Est GFR (Non-Af Amer) POC Glucose (mg/dL) (65-110) mg/dL Random Glucose (70-110) mg/dL Hemoglobin A1c (4.2-6.5) % Lactic Acid 2.6 H (0.7-2.1) mmol/L Calcium (8.4-10.5) mg/dL Magnesium (1.7-2.2) mg/dL Total Bilirubin (0.2-1.3) mg/dL AST (17-59) U/L ALT (7-56) U/L Alkaline Phosphatase (38-126) U/L Troponin I 0.67 H* D ng/mL NT-Pro-B Natriuret Pep (0-450) pg/mL Total Protein (5.8-8.3) g/dL Albumin (3.0-4.8) g/dL Globulin gm/dL Albumin/Globulin Ratio (1.1-1.8) Triglycerides (35-160) mg/dL Cholesterol (130-200) mg/dL LDL Cholesterol Direct (0-129) mg/dL HDL Cholesterol (29-60) mg/dL Procalcitonin (0.19-0.49) NG/ML Venous Blood Potassium (3.6-5.2) mmol/L Urine Color (YELLOW) Urine Appearance (CLEAR) Urine pH (4.7-8.0) Ur Specific [place] (1.005-1.035) Urine Protein (<30 mg/dL) mg/dL Urine Glucose (UA) (NEGATIVE) mg/dL Urine Ketones (NEGATIVE) mg/dL Urine Blood (NEGATIVE) Urine Nitrate (NEGATIVE) Urine Bilirubin (NEGATIVE) Urine Urobilinogen (<1 E.U./dL) E.U./dL Ur Leukocyte Esterase (NEGATIVE) Dani/uL Urine RBC (0-2) /hpf Urine WBC (0-6) /hpf Ur Epithelial Cells (0-5) /hpf Urine Bacteria (NONE) /hpf Hepatitis A IgM Ab Negative (NEGATIVE) Hep Bs Antigen Negative (NEGATIVE) Hep B Core IgM Ab Negative (NEGATIVE) Hepatitis C Antibody Negative (NEGATIVE) Influenza Typ A,B (EIA) (NEGATIVE) 07/03/18 07/03/18 07/03/18 Range/Units 15:35 12:10 10:40 WBC (4.5-11.0) 10^3/uL RBC (3.5-6.1) 10^6/uL Hgb (14.0-18.0) g/dL Hct (42.0-52.0) % MCV (80.0-105.0) fl MCH (25.0-35.0) pg MCHC (31.0-37.0) g/dl RDW (11.5-14.5) % Plt Count (120.0-450.0) 10^3/uL Gran % (50.0-68.0) % Lymph % (Auto) (22.0-35.0) % [place] % (Auto) (1.0-6.0) % Eos % (Auto) (1.5-5.0) % Baso % (Auto) (0.0-3.0) % Gran # (1.4-6.5) Lymph # (Auto) (1.2-3.4) [place] # (Auto) (0.1-0.6) Eos # (Auto) (0.0-0.7) Baso # (Auto) (0.0-2.0) K/mm3 Neutrophils % (Manual) (50.0-70.0) % Band Neutrophils % (0-2) % Lymphocytes % (Manual) (22.0-35.0) % Monocytes % (Manual) (1.0-6.0) % Platelet Evaluation (NORMAL) PT (9.4-12.5) SECONDS INR APTT (25.1-36.5) Seconds pCO2 32 L (35-45) mm/Hg pO2 67 H 173.0 H (30-55) mm/Hg HCO3 15.4 L (21-28) mmol/L ABG pH 7.29 L (7.35-7.45) ABG Total CO2 16.4 L (22-28) mmol.L ABG O2 Saturation 99.5 H (95-98) % ABG O2 Content 14.8 L (15-23) ML/dl ABG Base Excess -10.1 L (-2.0-3.0) mmol/L ABG Hemoglobin 10.6 L (11.7-17.4) g/dL ABG Carboxyhemoglobin 1.6 H (0.5-1.5) % POC ABG HHb (Measured) 0.5 (0-5) % ABG Methemoglobin 0.9 (0.0-3.0) % ABG O2 Capacity 14.9 L (16-24) mL/dl VBG pH 7.14 L* (7.32-7.43) VBG pCO2 46.0 (40-60) VBG HCO3 15.7 L (21-28) mmol/l VBG Total CO2 17.1 L (22-28) mmol.L VBG O2 Sat (Calc) 91.7 H (40-65) % VBG Base Excess -13.1 L (0.0-2.0) mmol/L VBG Potassium 4.9 (3.6-5.2) mmol/L Hgb O2 Saturation 97.0 (95.0-98.0) % Sodium 139.0 (132-148) mmol/L Chloride 106.0 (98-107) mmol/L Glucose 373 H (75-110) mg/dl Lactate 5.5 H* (0.7-2.1) mmol/L FiO2 21.0 100.0 % Potassium (3.6-5.0) mmol/L Carbon Dioxide (21-33) mmol/L Anion Gap (10-20) BUN (7-21) mg/dL Creatinine (0.8-1.5) mg/dl Est GFR ( Amer) Est GFR (Non-Af Amer) POC Glucose (mg/dL) (65-110) mg/dL Random Glucose (70-110) mg/dL Hemoglobin A1c (4.2-6.5) % Lactic Acid (0.7-2.1) mmol/L Calcium (8.4-10.5) mg/dL Magnesium (1.7-2.2) mg/dL Total Bilirubin (0.2-1.3) mg/dL AST (17-59) U/L ALT (7-56) U/L Alkaline Phosphatase (38-126) U/L Troponin I ng/mL NT-Pro-B Natriuret Pep (0-450) pg/mL Total Protein (5.8-8.3) g/dL Albumin (3.0-4.8) g/dL Globulin gm/dL Albumin/Globulin Ratio (1.1-1.8) Triglycerides (35-160) mg/dL Cholesterol (130-200) mg/dL LDL Cholesterol Direct (0-129) mg/dL HDL Cholesterol (29-60) mg/dL Procalcitonin 4.85 H (0.19-0.49) NG/ML Venous Blood Potassium 4.9 (3.6-5.2) mmol/L Urine Color (YELLOW) Urine Appearance (CLEAR) Urine pH (4.7-8.0) Ur Specific [place] (1.005-1.035) Urine Protein (<30 mg/dL) mg/dL Urine Glucose (UA) (NEGATIVE) mg/dL Urine Ketones (NEGATIVE) mg/dL Urine Blood (NEGATIVE) Urine Nitrate (NEGATIVE) Urine Bilirubin (NEGATIVE) Urine Urobilinogen (<1 E.U./dL) E.U./dL Ur Leukocyte Esterase (NEGATIVE) Dani/uL Urine RBC (0-2) /hpf Urine WBC (0-6) /hpf Ur Epithelial Cells (0-5) /hpf Urine Bacteria (NONE) /hpf Hepatitis A IgM Ab (NEGATIVE) Hep Bs Antigen (NEGATIVE) Hep B Core IgM Ab (NEGATIVE) Hepatitis C Antibody (NEGATIVE) Influenza Typ A,B (EIA) (NEGATIVE) 07/03/18 07/03/18 07/03/18 Range/Units 09:25 09:25 09:25 WBC 11.9 H (4.5-11.0) 10^3/uL RBC 4.33 (3.5-6.1) 10^6/uL Hgb 11.7 L (14.0-18.0) g/dL Hct 37.1 L (42.0-52.0) % MCV 85.7 (80.0-105.0) fl MCH 27.0 (25.0-35.0) pg MCHC 31.5 (31.0-37.0) g/dl RDW 16.9 H (11.5-14.5) % Plt Count 46 L* (120.0-450.0) 10^3/uL Gran % 92.4 H (50.0-68.0) % Lymph % (Auto) 4.9 L (22.0-35.0) % [place] % (Auto) 2.4 (1.0-6.0) % Eos % (Auto) 0.0 L (1.5-5.0) % Baso % (Auto) 0.3 (0.0-3.0) % Gran # 11.02 H (1.4-6.5) Lymph # (Auto) 0.6 L (1.2-3.4) [place] # (Auto) 0.3 (0.1-0.6) Eos # (Auto) 0.0 (0.0-0.7) Baso # (Auto) 0.03 (0.0-2.0) K/mm3 Neutrophils % (Manual) 91 H (50.0-70.0) % Band Neutrophils % 1 (0-2) % Lymphocytes % (Manual) 7 L (22.0-35.0) % Monocytes % (Manual) 1 (1.0-6.0) % Platelet Evaluation Low (NORMAL) PT (9.4-12.5) SECONDS INR APTT (25.1-36.5) Seconds pCO2 (35-45) mm/Hg pO2 (30-55) mm/Hg HCO3 (21-28) mmol/L ABG pH (7.35-7.45) ABG Total CO2 (22-28) mmol.L ABG O2 Saturation (95-98) % ABG O2 Content (15-23) ML/dl ABG Base Excess (-2.0-3.0) mmol/L ABG Hemoglobin (11.7-17.4) g/dL ABG Carboxyhemoglobin (0.5-1.5) % POC ABG HHb (Measured) (0-5) % ABG Methemoglobin (0.0-3.0) % ABG O2 Capacity (16-24) mL/dl VBG pH (7.32-7.43) VBG pCO2 (40-60) VBG HCO3 (21-28) mmol/l VBG Total CO2 (22-28) mmol.L VBG O2 Sat (Calc) (40-65) % VBG Base Excess (0.0-2.0) mmol/L VBG Potassium (3.6-5.2) mmol/L Hgb O2 Saturation (95.0-98.0) % Sodium 136 (132-148) mmol/L Chloride 104 (98-107) mmol/L Glucose (75-110) mg/dl Lactate (0.7-2.1) mmol/L FiO2 % Potassium 5.8 H* D (3.6-5.0) mmol/L Carbon Dioxide 18 L (21-33) mmol/L Anion Gap 20 (10-20) BUN 79 H (7-21) mg/dL Creatinine 2.6 H (0.8-1.5) mg/dl Est GFR ( Amer) 30 Est GFR (Non-Af Amer) 25 POC Glucose (mg/dL) (65-110) mg/dL Random Glucose 420 H* D (70-110) mg/dL Hemoglobin A1c 8.2 H (4.2-6.5) % Lactic Acid (0.7-2.1) mmol/L Calcium 8.4 (8.4-10.5) mg/dL Magnesium 2.2 (1.7-2.2) mg/dL Total Bilirubin 0.9 (0.2-1.3) mg/dL AST 307 H D (17-59) U/L ALT 224 H (7-56) U/L Alkaline Phosphatase 89 (38-126) U/L Troponin I 0.48 H* D ng/mL NT-Pro-B Natriuret Pep [id number] H (0-450) pg/mL Total Protein 7.6 (5.8-8.3) g/dL Albumin 4.5 (3.0-4.8) g/dL Globulin 3.2 gm/dL Albumin/Globulin Ratio 1.4 (1.1-1.8) Triglycerides (35-160) mg/dL Cholesterol (130-200) mg/dL LDL Cholesterol Direct (0-129) mg/dL HDL Cholesterol (29-60) mg/dL Procalcitonin (0.19-0.49) NG/ML Venous Blood Potassium (3.6-5.2) mmol/L Urine Color (YELLOW) Urine Appearance (CLEAR) Urine pH (4.7-8.0) Ur Specific [place] (1.005-1.035) Urine Protein (<30 mg/dL) mg/dL Urine Glucose (UA) (NEGATIVE) mg/dL Urine Ketones (NEGATIVE) mg/dL Urine Blood (NEGATIVE) Urine Nitrate (NEGATIVE) Urine Bilirubin (NEGATIVE) Urine Urobilinogen (<1 E.U./dL) E.U./dL Ur Leukocyte Esterase (NEGATIVE) Dani/uL Urine RBC (0-2) /hpf Urine WBC (0-6) /hpf Ur Epithelial Cells (0-5) /hpf Urine Bacteria (NONE) /hpf Hepatitis A IgM Ab (NEGATIVE) Hep Bs Antigen (NEGATIVE) Hep B Core IgM Ab (NEGATIVE) Hepatitis C Antibody (NEGATIVE) Influenza Typ A,B (EIA) (NEGATIVE) 07/03/18 Range/Units 09:00 WBC (4.5-11.0) 10^3/uL RBC (3.5-6.1) 10^6/uL Hgb (14.0-18.0) g/dL Hct (42.0-52.0) % MCV (80.0-105.0) fl MCH (25.0-35.0) pg MCHC (31.0-37.0) g/dl RDW (11.5-14.5) % Plt Count (120.0-450.0) 10^3/uL Gran % (50.0-68.0) % Lymph % (Auto) (22.0-35.0) % [place] % (Auto) (1.0-6.0) % Eos % (Auto) (1.5-5.0) % Baso % (Auto) (0.0-3.0) % Gran # (1.4-6.5) Lymph # (Auto) (1.2-3.4) [place] # (Auto) (0.1-0.6) Eos # (Auto) (0.0-0.7) Baso # (Auto) (0.0-2.0) K/mm3 Neutrophils % (Manual) (50.0-70.0) % Band Neutrophils % (0-2) % Lymphocytes % (Manual) (22.0-35.0) % Monocytes % (Manual) (1.0-6.0) % Platelet Evaluation (NORMAL) PT (9.4-12.5) SECONDS INR APTT (25.1-36.5) Seconds pCO2 (35-45) mm/Hg pO2 42 (30-55) mm/Hg HCO3 (21-28) mmol/L ABG pH (7.35-7.45) ABG Total CO2 (22-28) mmol.L ABG O2 Saturation (95-98) % ABG O2 Content (15-23) ML/dl ABG Base Excess (-2.0-3.0) mmol/L ABG Hemoglobin (11.7-17.4) g/dL ABG Carboxyhemoglobin (0.5-1.5) % POC ABG HHb (Measured) (0-5) % ABG Methemoglobin (0.0-3.0) % ABG O2 Capacity (16-24) mL/dl VBG pH 7.25 L (7.32-7.43) VBG pCO2 41.0 (40-60) VBG HCO3 18.0 L (21-28) mmol/l VBG Total CO2 19.3 L (22-28) mmol.L VBG O2 Sat (Calc) 75.7 H (40-65) % VBG Base Excess -8.8 L (0.0-2.0) mmol/L VBG Potassium 6.4 H* (3.6-5.2) mmol/L Hgb O2 Saturation (95.0-98.0) % Sodium 133.0 (132-148) mmol/L Chloride 100.0 (98-107) mmol/L Glucose 452 H* (75-110) mg/dl Lactate 4.6 H* (0.7-2.1) mmol/L FiO2 21.0 % Potassium (3.6-5.0) mmol/L Carbon Dioxide (21-33) mmol/L Anion Gap (10-20) BUN (7-21) mg/dL Creatinine (0.8-1.5) mg/dl Est GFR ( Amer) Est GFR (Non-Af Amer) POC Glucose (mg/dL) (65-110) mg/dL Random Glucose (70-110) mg/dL Hemoglobin A1c (4.2-6.5) % Lactic Acid (0.7-2.1) mmol/L Calcium (8.4-10.5) mg/dL Magnesium (1.7-2.2) mg/dL Total Bilirubin (0.2-1.3) mg/dL AST (17-59) U/L ALT (7-56) U/L Alkaline Phosphatase (38-126) U/L Troponin I ng/mL NT-Pro-B Natriuret Pep (0-450) pg/mL Total Protein (5.8-8.3) g/dL Albumin (3.0-4.8) g/dL Globulin gm/dL Albumin/Globulin Ratio (1.1-1.8) Triglycerides (35-160) mg/dL Cholesterol (130-200) mg/dL LDL Cholesterol Direct (0-129) mg/dL HDL Cholesterol (29-60) mg/dL Procalcitonin (0.19-0.49) NG/ML Venous Blood Potassium 6.4 H* (3.6-5.2) mmol/L Urine Color (YELLOW) Urine Appearance (CLEAR) Urine pH (4.7-8.0) Ur Specific [place] (1.005-1.035) Urine Protein (<30 mg/dL) mg/dL Urine Glucose (UA) (NEGATIVE) mg/dL Urine Ketones (NEGATIVE) mg/dL Urine Blood (NEGATIVE) Urine Nitrate (NEGATIVE) Urine Bilirubin (NEGATIVE) Urine Urobilinogen (<1 E.U./dL) E.U./dL Ur Leukocyte Esterase (NEGATIVE) Dani/uL Urine RBC (0-2) /hpf Urine WBC (0-6) /hpf Ur Epithelial Cells (0-5) /hpf Urine Bacteria (NONE) /hpf Hepatitis A IgM Ab (NEGATIVE) Hep Bs Antigen (NEGATIVE) Hep B Core IgM Ab (NEGATIVE) Hepatitis C Antibody (NEGATIVE) Influenza Typ A,B (EIA) (NEGATIVE) Laboratory Results - last 24 hr 07/03/18 07/03/18 07/03/18 09:00 09:25 09:25 WBC 11.9 H RBC 4.33 Hgb 11.7 L Hct 37.1 L MCV 85.7 MCH 27.0 MCHC 31.5 RDW 16.9 H Plt Count 46 L* Gran % 92.4 H Lymph % (Auto) 4.9 L [place] % (Auto) 2.4 Eos % (Auto) 0.0 L Baso % (Auto) 0.3 Gran # 11.02 H Lymph # (Auto) 0.6 L [place] # (Auto) 0.3 Eos # (Auto) 0.0 Baso # (Auto) 0.03 Neutrophils % (Manual) 91 H Band Neutrophils % 1 Lymphocytes % (Manual) 7 L Monocytes % (Manual) 1 Platelet Evaluation Low PT INR APTT pCO2 pO2 42 HCO3 ABG pH ABG Total CO2 ABG O2 Saturation ABG O2 Content ABG Base Excess ABG Hemoglobin ABG Carboxyhemoglobin POC ABG HHb (Measured) ABG Methemoglobin ABG O2 Capacity VBG pH 7.25 L VBG pCO2 41.0 VBG HCO3 18.0 L VBG Total CO2 19.3 L VBG O2 Sat (Calc) 75.7 H VBG Base Excess -8.8 L VBG Potassium 6.4 H* Hgb O2 Saturation Sodium 133.0 136 Chloride 100.0 104 Glucose 452 H* Lactate 4.6 H* FiO2 21.0 Potassium 5.8 H* D Carbon Dioxide 18 L Anion Gap 20 BUN 79 H Creatinine 2.6 H Est GFR ( Amer) 30 Est GFR (Non-Af Amer) 25 POC Glucose (mg/dL) Random Glucose 420 H* D Hemoglobin A1c Lactic Acid Calcium 8.4 Magnesium 2.2 Total Bilirubin 0.9 AST 307 H D ALT 224 H Alkaline Phosphatase 89 Troponin I 0.48 H* D NT-Pro-B Natriuret Pep 35560 H Total Protein 7.6 Albumin 4.5 Globulin 3.2 Albumin/Globulin Ratio 1.4 Triglycerides Cholesterol LDL Cholesterol Direct HDL Cholesterol Procalcitonin Venous Blood Potassium 6.4 H* Urine Color Urine Appearance Urine pH Ur Specific [place] Urine Protein Urine Glucose (UA) Urine Ketones Urine Blood Urine Nitrate Urine Bilirubin Urine Urobilinogen Ur Leukocyte Esterase Urine RBC Urine WBC Ur Epithelial Cells Urine Bacteria Hepatitis A IgM Ab Hep Bs Antigen Hep B Core IgM Ab Hepatitis C Antibody Influenza Typ A,B (EIA) 07/03/18 07/03/18 07/03/18 09:25 10:40 12:10 WBC RBC Hgb Hct MCV MCH MCHC RDW Plt Count Gran % Lymph % (Auto) [place] % (Auto) Eos % (Auto) Baso % (Auto) Gran # Lymph # (Auto) [place] # (Auto) Eos # (Auto) Baso # (Auto) Neutrophils % (Manual) Band Neutrophils % Lymphocytes % (Manual) Monocytes % (Manual) Platelet Evaluation PT INR APTT pCO2 32 L pO2 173.0 H 67 H HCO3 15.4 L ABG pH 7.29 L ABG Total CO2 16.4 L ABG O2 Saturation 99.5 H ABG O2 Content 14.8 L ABG Base Excess -10.1 L ABG Hemoglobin 10.6 L ABG Carboxyhemoglobin 1.6 H POC ABG HHb (Measured) 0.5 ABG Methemoglobin 0.9 ABG O2 Capacity 14.9 L VBG pH 7.14 L* VBG pCO2 46.0 VBG HCO3 15.7 L VBG Total CO2 17.1 L VBG O2 Sat (Calc) 91.7 H VBG Base Excess -13.1 L VBG Potassium 4.9 Hgb O2 Saturation 97.0 Sodium 139.0 Chloride 106.0 Glucose 373 H Lactate 5.5 H* FiO2 100.0 21.0 Potassium Carbon Dioxide Anion Gap BUN Creatinine Est GFR ( Amer) Est GFR (Non-Af Amer) POC Glucose (mg/dL) Random Glucose Hemoglobin A1c 8.2 H Lactic Acid Calcium Magnesium Total Bilirubin AST ALT Alkaline Phosphatase Troponin I NT-Pro-B Natriuret Pep Total Protein Albumin Globulin Albumin/Globulin Ratio Triglycerides Cholesterol LDL Cholesterol Direct HDL Cholesterol Procalcitonin Venous Blood Potassium 4.9 Urine Color Urine Appearance Urine pH Ur Specific [place] Urine Protein Urine Glucose (UA) Urine Ketones Urine Blood Urine Nitrate Urine Bilirubin Urine Urobilinogen Ur Leukocyte Esterase Urine RBC Urine WBC Ur Epithelial Cells Urine Bacteria Hepatitis A IgM Ab Hep Bs Antigen Hep B Core IgM Ab Hepatitis C Antibody Influenza Typ A,B (EIA) 07/03/18 07/03/18 07/03/18 15:35 15:35 15:35 WBC RBC Hgb Hct MCV MCH MCHC RDW Plt Count Gran % Lymph % (Auto) [place] % (Auto) Eos % (Auto) Baso % (Auto) Gran # Lymph # (Auto) [place] # (Auto) Eos # (Auto) Baso # (Auto) Neutrophils % (Manual) Band Neutrophils % Lymphocytes % (Manual) Monocytes % (Manual) Platelet Evaluation PT INR APTT pCO2 pO2 HCO3 ABG pH ABG Total CO2 ABG O2 Saturation ABG O2 Content ABG Base Excess ABG Hemoglobin ABG Carboxyhemoglobin POC ABG HHb (Measured) ABG Methemoglobin ABG O2 Capacity VBG pH VBG pCO2 VBG HCO3 VBG Total CO2 VBG O2 Sat (Calc) VBG Base Excess VBG Potassium Hgb O2 Saturation Sodium Chloride Glucose Lactate FiO2 Potassium Carbon Dioxide Anion Gap BUN Creatinine Est GFR ( Amer) Est GFR (Non-Af Amer) POC Glucose (mg/dL) Random Glucose Hemoglobin A1c Lactic Acid 2.6 H Calcium Magnesium Total Bilirubin AST ALT Alkaline Phosphatase Troponin I NT-Pro-B Natriuret Pep Total Protein Albumin Globulin Albumin/Globulin Ratio Triglycerides Cholesterol LDL Cholesterol Direct HDL Cholesterol Procalcitonin 4.85 H Venous Blood Potassium Urine Color Urine Appearance Urine pH Ur Specific [place] Urine Protein Urine Glucose (UA) Urine Ketones Urine Blood Urine Nitrate Urine Bilirubin Urine Urobilinogen Ur Leukocyte Esterase Urine RBC Urine WBC Ur Epithelial Cells Urine Bacteria Hepatitis A IgM Ab Negative Hep Bs Antigen Negative Hep B Core IgM Ab Negative Hepatitis C Antibody Negative Influenza Typ A,B (EIA) 07/03/18 07/03/18 07/03/18 15:35 15:35 16:13 WBC RBC Hgb Hct MCV MCH MCHC RDW Plt Count Gran % Lymph % (Auto) [place] % (Auto) Eos % (Auto) Baso % (Auto) Gran # Lymph # (Auto) [place] # (Auto) Eos # (Auto) Baso # (Auto) Neutrophils % (Manual) Band Neutrophils % Lymphocytes % (Manual) Monocytes % (Manual) Platelet Evaluation PT 18.3 H INR 1.59 APTT 31.5 pCO2 39 pO2 93.0 HCO3 18.3 L ABG pH 7.28 L ABG Total CO2 19.5 L ABG O2 Saturation 98.1 H ABG O2 Content 13.5 L ABG Base Excess -7.9 L ABG Hemoglobin 9.9 L ABG Carboxyhemoglobin 1.4 POC ABG HHb (Measured) 1.9 ABG Methemoglobin 0.6 ABG O2 Capacity 13.8 L VBG pH VBG pCO2 VBG HCO3 VBG Total CO2 VBG O2 Sat (Calc) VBG Base Excess VBG Potassium Hgb O2 Saturation 96.1 Sodium Chloride Glucose Lactate FiO2 60.0 Potassium Carbon Dioxide Anion Gap BUN Creatinine Est GFR ( Amer) Est GFR (Non-Af Amer) POC Glucose (mg/dL) Random Glucose Hemoglobin A1c Lactic Acid Calcium Magnesium Total Bilirubin AST ALT Alkaline Phosphatase Troponin I 0.67 H* D NT-Pro-B Natriuret Pep Total Protein Albumin Globulin Albumin/Globulin Ratio Triglycerides Cholesterol LDL Cholesterol Direct HDL Cholesterol Procalcitonin Venous Blood Potassium Urine Color Urine Appearance Urine pH Ur Specific [place] Urine Protein Urine Glucose (UA) Urine Ketones Urine Blood Urine Nitrate Urine Bilirubin Urine Urobilinogen Ur Leukocyte Esterase Urine RBC Urine WBC Ur Epithelial Cells Urine Bacteria Hepatitis A IgM Ab Hep Bs Antigen Hep B Core IgM Ab Hepatitis C Antibody Influenza Typ A,B (EIA) 07/03/18 07/03/18 07/03/18 18:44 20:10 20:10 WBC RBC Hgb Hct MCV MCH MCHC RDW Plt Count Gran % Lymph % (Auto) [place] % (Auto) Eos % (Auto) Baso % (Auto) Gran # Lymph # (Auto) [place] # (Auto) Eos # (Auto) Baso # (Auto) Neutrophils % (Manual) Band Neutrophils % Lymphocytes % (Manual) Monocytes % (Manual) Platelet Evaluation PT INR APTT pCO2 pO2 HCO3 ABG pH ABG Total CO2 ABG O2 Saturation ABG O2 Content ABG Base Excess ABG Hemoglobin ABG Carboxyhemoglobin POC ABG HHb (Measured) ABG Methemoglobin ABG O2 Capacity VBG pH VBG pCO2 VBG HCO3 VBG Total CO2 VBG O2 Sat (Calc) VBG Base Excess VBG Potassium Hgb O2 Saturation Sodium Chloride Glucose Lactate FiO2 Potassium Carbon Dioxide Anion Gap BUN Creatinine Est GFR ( Amer) Est GFR (Non-Af Amer) POC Glucose (mg/dL) 368 H Random Glucose Hemoglobin A1c Lactic Acid Calcium Magnesium Total Bilirubin AST ALT Alkaline Phosphatase Troponin I NT-Pro-B Natriuret Pep Total Protein Albumin Globulin Albumin/Globulin Ratio Triglycerides Cholesterol LDL Cholesterol Direct HDL Cholesterol Procalcitonin Venous Blood Potassium Urine Color Yellow Urine Appearance Sl cloudy Urine pH 6.0 Ur Specific [place] 1.020 Urine Protein Trace H Urine Glucose (UA) Negative Urine Ketones Negative Urine Blood Large H Urine Nitrate Negative Urine Bilirubin Negative Urine Urobilinogen 0.2 Ur Leukocyte Esterase Small H Urine RBC 15 - 20 H Urine WBC 2 - 5 Ur Epithelial Cells 0 - 2 Urine Bacteria Few Hepatitis A IgM Ab Hep Bs Antigen Hep B Core IgM Ab Hepatitis C Antibody Influenza Typ A,B (EIA) Pos for influenza a H 07/03/18 07/03/18 07/03/18 20:15 20:15 22:00 WBC RBC Hgb Hct MCV MCH MCHC RDW Plt Count Gran % Lymph % (Auto) [place] % (Auto) Eos % (Auto) Baso % (Auto) Gran # Lymph # (Auto) [place] # (Auto) Eos # (Auto) Baso # (Auto) Neutrophils % (Manual) Band Neutrophils % Lymphocytes % (Manual) Monocytes % (Manual) Platelet Evaluation PT INR APTT 69.8 H pCO2 pO2 HCO3 ABG pH ABG Total CO2 ABG O2 Saturation ABG O2 Content ABG Base Excess ABG Hemoglobin ABG Carboxyhemoglobin POC ABG HHb (Measured) ABG Methemoglobin ABG O2 Capacity VBG pH VBG pCO2 VBG HCO3 VBG Total CO2 VBG O2 Sat (Calc) VBG Base Excess VBG Potassium Hgb O2 Saturation Sodium 137 Chloride 107 Glucose Lactate FiO2 Potassium 4.6 Carbon Dioxide 21 Anion Gap 13 BUN 86 H Creatinine 2.8 H Est GFR ( Amer) 28 Est GFR (Non-Af Amer) 23 POC Glucose (mg/dL) Random Glucose 372 H* Hemoglobin A1c Lactic Acid Calcium 7.9 L Magnesium Total Bilirubin AST ALT Alkaline Phosphatase Troponin I 0.67 H* NT-Pro-B Natriuret Pep Total Protein Albumin Globulin Albumin/Globulin Ratio Triglycerides Cholesterol LDL Cholesterol Direct HDL Cholesterol Procalcitonin Venous Blood Potassium Urine Color Urine Appearance Urine pH Ur Specific [place] Urine Protein Urine Glucose (UA) Urine Ketones Urine Blood Urine Nitrate Urine Bilirubin Urine Urobilinogen Ur Leukocyte Esterase Urine RBC Urine WBC Ur Epithelial Cells Urine Bacteria Hepatitis A IgM Ab Hep Bs Antigen Hep B Core IgM Ab Hepatitis C Antibody Influenza Typ A,B (EIA) 07/03/18 07/04/18 07/04/18 23:15 05:00 05:00 WBC 11.9 H RBC 4.11 Hgb 11.0 L Hct 35.1 L MCV 85.4 MCH 26.8 MCHC 31.3 RDW 16.9 H Plt Count 23 L* Gran % 94.3 H Lymph % (Auto) 3.7 L [place] % (Auto) 1.9 Eos % (Auto) 0.0 L Baso % (Auto) 0.1 Gran # 11.18 H Lymph # (Auto) 0.4 L [place] # (Auto) 0.2 Eos # (Auto) 0.0 Baso # (Auto) 0.01 Neutrophils % (Manual) Band Neutrophils % Lymphocytes % (Manual) Monocytes % (Manual) Platelet Evaluation PT INR APTT pCO2 pO2 HCO3 ABG pH ABG Total CO2 ABG O2 Saturation ABG O2 Content ABG Base Excess ABG Hemoglobin ABG Carboxyhemoglobin POC ABG HHb (Measured) ABG Methemoglobin ABG O2 Capacity VBG pH VBG pCO2 VBG HCO3 VBG Total CO2 VBG O2 Sat (Calc) VBG Base Excess VBG Potassium Hgb O2 Saturation Sodium 141 Chloride 107 Glucose Lactate FiO2 Potassium 5.2 H Carbon Dioxide 25 Anion Gap 15 BUN 85 H Creatinine 2.5 H Est GFR ( Amer) 32 Est GFR (Non-Af Amer) 26 POC Glucose (mg/dL) 308 H Random Glucose 208 H Hemoglobin A1c Lactic Acid Calcium 8.3 L Magnesium Total Bilirubin 0.7 AST 543 H D ALT 409 H Alkaline Phosphatase 72 Troponin I NT-Pro-B Natriuret Pep Total Protein 7.0 Albumin 4.0 Globulin 3.0 Albumin/Globulin Ratio 1.4 Triglycerides 172 H Cholesterol 162 LDL Cholesterol Direct 97 HDL Cholesterol 30 Procalcitonin Venous Blood Potassium Urine Color Urine Appearance Urine pH Ur Specific [place] Urine Protein Urine Glucose (UA) Urine Ketones Urine Blood Urine Nitrate Urine Bilirubin Urine Urobilinogen Ur Leukocyte Esterase Urine RBC Urine WBC Ur Epithelial Cells Urine Bacteria Hepatitis A IgM Ab Hep Bs Antigen Hep B Core IgM Ab Hepatitis C Antibody Influenza Typ A,B (EIA) 07/04/18 05:00 WBC RBC Hgb Hct MCV MCH MCHC RDW Plt Count Gran % Lymph % (Auto) [place] % (Auto) Eos % (Auto) Baso % (Auto) Gran # Lymph # (Auto) [place] # (Auto) Eos # (Auto) Baso # (Auto) Neutrophils % (Manual) Band Neutrophils % Lymphocytes % (Manual) Monocytes % (Manual) Platelet Evaluation PT INR APTT 87.2 H pCO2 pO2 HCO3 ABG pH ABG Total CO2 ABG O2 Saturation ABG O2 Content ABG Base Excess ABG Hemoglobin ABG Carboxyhemoglobin POC ABG HHb (Measured) ABG Methemoglobin ABG O2 Capacity VBG pH VBG pCO2 VBG HCO3 VBG Total CO2 VBG O2 Sat (Calc) VBG Base Excess VBG Potassium Hgb O2 Saturation Sodium Chloride Glucose Lactate FiO2 Potassium Carbon Dioxide Anion Gap BUN Creatinine Est GFR ( Amer) Est GFR (Non-Af Amer) POC Glucose (mg/dL) Random Glucose Hemoglobin A1c Lactic Acid Calcium Magnesium Total Bilirubin AST ALT Alkaline Phosphatase Troponin I NT-Pro-B Natriuret Pep Total Protein Albumin Globulin Albumin/Globulin Ratio Triglycerides Cholesterol LDL Cholesterol Direct HDL Cholesterol Procalcitonin Venous Blood Potassium Urine Color Urine Appearance Urine pH Ur Specific [place] Urine Protein Urine Glucose (UA) Urine Ketones Urine Blood Urine Nitrate Urine Bilirubin Urine Urobilinogen Ur Leukocyte Esterase Urine RBC Urine WBC Ur Epithelial Cells Urine Bacteria Hepatitis A IgM Ab Hep Bs Antigen Hep B Core IgM Ab Hepatitis C Antibody Influenza Typ A,B (EIA) Radiology Impressions: Radiology Impressions Chest X-Ray 07/03/18 08:01 IMPRESSION: Stats of infiltrate primarily affecting right lung/right upper lobe. Chest CT 07/03/18 10:55 IMPRESSION: Extensive alveolar infiltrate throughout the right lung and a small area of consolidation in the left lung base. Findings consistent with pneumonia Chest X-Ray 07/03/18 15:19 IMPRESSION: Stable pulmonary parenchymal infiltrates primarily affecting right lung. Satisfactory position of recently placed endotracheal tube. EKG/Cardiology Studies: Cardiology / EKG Studies 07/03/18 07:58 EKG [ELECTROCARDIOGRAM] Stat Comment: Reason For Exam: SOB Fingerstick Blood Sugar Results: 308 Review of Systems - Review of Systems Review of Systems: Complete 12 point ROS was unobtainable at this time due to clinical condition. Critical Care Progress Note - Nutrition Nutrition: Nutrition Category Date Time Status Heart Healthy Diet [DIET] Diets 07/03/18 Dinner Active Assessment/Plan - Assessment and Plan (Free Text) Assessment: 62yo male with PMHx of COPD, active smoker 1pk per day, HTN, DM, PVD, presents with ER with 2 day history of fever, chills, associated with cough that is non- productive. Yesterday, patient also developed SOB. Pt denies sick contacts, recent travel, CP, palpitations, CARTY, dizziness. In the ER, patient was noted to be hypoxic at 78%, on 2L NC, subsequently placed on BIPAP. No other constitutional symptoms. Pt was found to have increased work of breathing, RR 35-40, subsequently intubated. Placed on low tidal vol. ventilation. Patient was started on heparin drip given elevated troponin, and markedly diminished EF. Neuro: - AAOx0, on sedation - continue to monitor Pulm CAP and Flu 07/03/18 CXR: Stable pulm parenchymal infiltrates affecting R lung. Satisfactory position of endotracheal tube 07/03/18 CT chest: extensive alveolar infiltrate throughout R lung, consistent with PNA 07/04/18 CXR shows worsening alveolar infiltrates in bilateral lobes in L middle lobe. F/U final read 07/03/18 ABG shows non anion gap metabolic acidosis 07/04/18 ABG shows metabolic acidosis - duonebs seema q6 and PRN q2 - Continue Solumedrol 40mg IV BID - Tamiflu renally dosed - Abx: Levaquin 500 q48hr and Merrem 500 BID for possible secondary bacterial infection - check Urine Lg, Strep - Procal 4.85 - ID eval: Dr. Fernandes - recs appreciated - Pulm consulted - Dr. Burr, recs appreciated - Resp therapy Cardio HFrEF - BNP 15296, although CXR only shows one sided infilatrate - 07/03/18 echo report shows EF 14.2%, mildly dilated LV, systolic function severely impaired, akinetic septum, moderate TR and pulm HTN NSTEMI - Trop 0.48, 0.67, 0.67 - Cardiology consulted - Dr. Saxena - Hold IVF d/t poor EF. - Dobutamine drip for pressure support - Heparin drip Chronic Thrombocytopenia - has received frequent intermittent transfusions as outpatient per medical record - 23 this AM, manual count of 42. Type and Screen ordered. F/U PTT GI - NGT in place Uncontrolled DM - Hgb a1c 8.2, accuchecks ACHS - Diabetic education Lipid panel - TG elevated at 172 Worsening Transaminitis AST /ALT 307/224 >543/409, normal Alk Phos. Hold hepatotoxic drugs Hep panel negative - 07/03/18 RUQ U/S shows hepatosplenomegaly PTX for Ppx Nephro - OG 85/2.5, basline Cr 1.0 - Hyperkalemia 5.8 improved to 4.6 O/N then 5.2 this AM - Strict Is and Os - Ash in place MSK - Wound care consulted - Podiatry consulted- Dr. Isauro burrows appreciated - OT/PT eval ID - Fevers Tmax 102.7, Leukocytosis stable 11.9 - Rapid influenza A positive > Tamiflu renally dosed at 30 mg daily - ID eval: Dr. Dom burrows appreciated - Amikacin given overnight - GI ppx: PTX - DVT ppx: Hep drip Patient seen, case reviewed, and plan approved by Dr. Ab Mitchell. Ismael Turner, PGY-1 <Junior Mitchell - Last Filed: 07/04/18 17:20> CCU Objective - Vital Signs / Intake & Output Vital Signs (Last 4 hours): Vital Signs Temp Pulse BP Pulse Ox 07/04/18 16:50 97 H 123/74 07/04/18 15:30 100.6 F H 97 H 104/55 L 98 07/04/18 15:00 101.1 F H 106 H 116/59 L 99 07/04/18 14:34 101.1 F H 07/04/18 14:30 101.1 F H 107 H 116/73 100 07/04/18 14:00 100.9 F H 110 H 115/74 98 07/04/18 13:53 98.8 F 07/04/18 13:30 100.6 F H 107 H 111/66 98 Intake and Output (Last 8hrs): Intake & Output 07/04/18 07/04/18 07/04/18 06:59 14:59 22:59 Intake Total 982 120 196 Output Total 1775 Balance -793 120 196 Weight 94.71 kg 97.522 kg Intake: IV 982 120 196 ATB 150 Fentanyl 14 dobutamine 84 heparin 130 propofol 230 Output: Gastric Amount 75 Stomach 75 Urine 1700 Urethral (Ash) 1700 - Medications Active Medications: Active Medications Generic Name Dose Route Start Last Admin Trade Name Freq PRN Reason Stop Dose Admin Albuterol/Ipratropium 3 ml 07/03/18 14:00 07/04/18 14:23 Duoneb 3 Mg/0.5 Mg (3 Ml) Ud IH 3 ml [id number] SEEMA Administration Albuterol/Ipratropium 3 ml 07/03/18 11:04 Duoneb 3 Mg/0.5 Mg (3 Ml) Ud IH Q2H PRN Shortness of Breath Meropenem/Sodium Chloride 500 mg in 50 mls @ 100 mls/hr 07/03/18 14:15 07/04/18 10:04 Merrem Iv 500 Mg/Ns 50 Ml IVPB 07/10/18 14:16 100 mls/hr Q12 SEEMA Administration Protocol Levofloxacin/Dextrose 500 mg in 100 mls @ 100 mls/hr 07/04/18 07:00 07/04/18 06:29 Levaquin 500mg IVPB 100 mls/hr Q48H SEEMA Administration Protocol Heparin Sodium/Sodium Chloride 25,000 units in 250 mls @ 11.158 mls/hr 07/03/18 16:15 07/04/18 16:50 Heparin 85842 Units/250ml 1/2 Normal Saline IV 10 units/kg/hr .[id number] SEEMA 9.299 mls/hr Administration Protocol 12 UNITS/KG/HR Propofol 1,000 mg in 100 mls @ 2.79 mls/hr 07/03/18 16:11 07/04/18 16:48 Diprivan IV 40 mcg/kg/min .Q24H PRN 22.317 mls/hr TITRATE PER MD ORDER Administration Protocol 5 MCG/KG/MIN Fentanyl Citrate 1,000 mcg in 100 mls @ 10 mls/hr 07/03/18 16:44 07/04/18 13:59 Fentanyl Citrate/Sodium Chloride 1 Mg/100 Ml IV 50 mcg/hr .Q10H PRN 5 mls/hr TITRATE PER MD ORDER Administration Protocol 100 MCG/HR Dobutamine HCl/Dextrose 500 mg in 250 mls @ 14.628 mls/hr 07/04/18 10:40 07/04/18 16:50 Dobutamine/Dextrose 5% 500mg/250ml IV 14.628 mls/hr .[id number] PRN Administration SYSTOLIC BLOOD PRESSURE 5 MCG/KG/MIN Ibuprofen 400 mg 07/04/18 14:03 07/04/18 14:34 Motrin Oral Susp PO 400 mg Q6H PRN Administration Fever >100.4 F Insulin Human Regular 0 units 07/03/18 22:00 07/04/18 16:28 Humulin R Med SC Not Given ACHS SEEMA Protocol Methylprednisolone 40 mg 07/03/18 22:00 07/04/18 10:04 Solu-Medrol IVP 40 mg Q12 SEEMA Administration Oseltamivir Phosphate 30 mg 07/04/18 10:00 07/04/18 10:05 Tamiflu Susp PO 30 mg Q12 SEEMA Administration Pantoprazole Sodium 40 mg 07/03/18 14:15 07/04/18 10:04 Protonix Inj IVP 40 mg DAILY SEEMA Administration - Patient Studies Lab Studies: Microbiology Studies 07/03/18 14:00 MRSA Culture (Admit) - Final Naris MRSA NOT DETECTED 07/04/18 02:30 Gram Stain - Final Sputum 07/03/18 09:45 Blood Culture - Preliminary Blood NO GROWTH AFTER 24 HOURS 07/03/18 09:25 Blood Culture - Preliminary Blood NO GROWTH AFTER 24 HOURS Lab Studies 07/04/18 07/04/18 07/04/18 Range/Units 12:00 12:00 06:50 WBC (4.5-11.0) 10^3/uL RBC (3.5-6.1) 10^6/uL Hgb (14.0-18.0) g/dL Hct (42.0-52.0) % MCV (80.0-105.0) fl MCH (25.0-35.0) pg MCHC (31.0-37.0) g/dl RDW (11.5-14.5) % Plt Count (120.0-450.0) 10^3/uL Manual Plt Count (120-450) K/mm3 Gran % (50.0-68.0) % Lymph % (Auto) (22.0-35.0) % [place] % (Auto) (1.0-6.0) % Eos % (Auto) (1.5-5.0) % Baso % (Auto) (0.0-3.0) % Gran # (1.4-6.5) Lymph # (Auto) (1.2-3.4) [place] # (Auto) (0.1-0.6) Eos # (Auto) (0.0-0.7) Baso # (Auto) (0.0-2.0) K/mm3 APTT 77.2 H (25.1-36.5) Seconds pCO2 33 L (35-45) mm/Hg pO2 69.0 L (80-100) mm/Hg HCO3 18.2 L (21-28) mmol/L ABG pH 7.35 (7.35-7.45) ABG Total CO2 19.2 L (22-28) mmol.L ABG O2 Saturation 95.4 (95-98) % ABG O2 Content 13.0 L (15-23) ML/dl ABG Base Excess -6.6 L (-2.0-3.0) mmol/L ABG Hemoglobin 9.8 L (11.7-17.4) g/dL ABG Carboxyhemoglobin 1.3 (0.5-1.5) % POC ABG HHb (Measured) 4.5 (0-5) % ABG Methemoglobin 0.3 (0.0-3.0) % ABG O2 Capacity 13.6 L (16-24) mL/dl Hgb O2 Saturation 93.9 L (95.0-98.0) % FiO2 60.0 % Sodium (132-148) mmol/L Potassium (3.6-5.0) mmol/L Chloride (98-107) mmol/L Carbon Dioxide (21-33) mmol/L Anion Gap (10-20) BUN (7-21) mg/dL Creatinine (0.8-1.5) mg/dl Est GFR ( Amer) Est GFR (Non-Af Amer) POC Glucose (mg/dL) (65-110) mg/dL Random Glucose (70-110) mg/dL Calcium (8.4-10.5) mg/dL Total Bilirubin (0.2-1.3) mg/dL AST (17-59) U/L ALT (7-56) U/L Alkaline Phosphatase (38-126) U/L Troponin I ng/mL Total Protein (5.8-8.3) g/dL Albumin (3.0-4.8) g/dL Globulin gm/dL Albumin/Globulin Ratio (1.1-1.8) Triglycerides (35-160) mg/dL Cholesterol (130-200) mg/dL LDL Cholesterol Direct (0-129) mg/dL HDL Cholesterol (29-60) mg/dL Procalcitonin (0.19-0.49) NG/ML Urine Color (YELLOW) Urine Appearance (CLEAR) Urine pH (4.7-8.0) Ur Specific [place] (1.005-1.035) Urine Protein (<30 mg/dL) mg/dL Urine Glucose (UA) (NEGATIVE) mg/dL Urine Ketones (NEGATIVE) mg/dL Urine Blood (NEGATIVE) Urine Nitrate (NEGATIVE) Urine Bilirubin (NEGATIVE) Urine Urobilinogen (<1 E.U./dL) E.U./dL Ur Leukocyte Esterase (NEGATIVE) Dani/uL Urine RBC (0-2) /hpf Urine WBC (0-6) /hpf Ur Epithelial Cells (0-5) /hpf Urine Bacteria (NONE) /hpf Hepatitis A IgM Ab (NEGATIVE) Hep Bs Antigen (NEGATIVE) Hep B Core IgM Ab (NEGATIVE) Hepatitis C Antibody (NEGATIVE) Influenza Typ A,B (EIA) (NEGATIVE) Ur L.pneumophila Ag (NEGATIVE) Blood Type O POSITIVE Antibody Screen Negative BBK History Checked Patient has bt 07/04/18 07/04/18 07/04/18 Range/Units 05:00 05:00 05:00 WBC 11.9 H (4.5-11.0) 10^3/uL RBC 4.11 (3.5-6.1) 10^6/uL Hgb 11.0 L (14.0-18.0) g/dL Hct 35.1 L (42.0-52.0) % MCV 85.4 (80.0-105.0) fl MCH 26.8 (25.0-35.0) pg MCHC 31.3 (31.0-37.0) g/dl RDW 16.9 H (11.5-14.5) % Plt Count 23 L* (120.0-450.0) 10^3/uL Manual Plt Count 42 L* (120-450) K/mm3 Gran % 94.3 H (50.0-68.0) % Lymph % (Auto) 3.7 L (22.0-35.0) % [place] % (Auto) 1.9 (1.0-6.0) % Eos % (Auto) 0.0 L (1.5-5.0) % Baso % (Auto) 0.1 (0.0-3.0) % Gran # 11.18 H (1.4-6.5) Lymph # (Auto) 0.4 L (1.2-3.4) [place] # (Auto) 0.2 (0.1-0.6) Eos # (Auto) 0.0 (0.0-0.7) Baso # (Auto) 0.01 (0.0-2.0) K/mm3 APTT 87.2 H (25.1-36.5) Seconds pCO2 (35-45) mm/Hg pO2 (80-100) mm/Hg HCO3 (21-28) mmol/L ABG pH (7.35-7.45) ABG Total CO2 (22-28) mmol.L ABG O2 Saturation (95-98) % ABG O2 Content (15-23) ML/dl ABG Base Excess (-2.0-3.0) mmol/L ABG Hemoglobin (11.7-17.4) g/dL ABG Carboxyhemoglobin (0.5-1.5) % POC ABG HHb (Measured) (0-5) % ABG Methemoglobin (0.0-3.0) % ABG O2 Capacity (16-24) mL/dl Hgb O2 Saturation (95.0-98.0) % FiO2 % Sodium 141 (132-148) mmol/L Potassium 5.2 H (3.6-5.0) mmol/L Chloride 107 (98-107) mmol/L Carbon Dioxide 25 (21-33) mmol/L Anion Gap 15 (10-20) BUN 85 H (7-21) mg/dL Creatinine 2.5 H (0.8-1.5) mg/dl Est GFR ( Amer) 32 Est GFR (Non-Af Amer) 26 POC Glucose (mg/dL) (65-110) mg/dL Random Glucose 208 H (70-110) mg/dL Calcium 8.3 L (8.4-10.5) mg/dL Total Bilirubin 0.7 (0.2-1.3) mg/dL AST 543 H D (17-59) U/L ALT 409 H (7-56) U/L Alkaline Phosphatase 72 (38-126) U/L Troponin I ng/mL Total Protein 7.0 (5.8-8.3) g/dL Albumin 4.0 (3.0-4.8) g/dL Globulin 3.0 gm/dL Albumin/Globulin Ratio 1.4 (1.1-1.8) Triglycerides 172 H (35-160) mg/dL Cholesterol 162 (130-200) mg/dL LDL Cholesterol Direct 97 (0-129) mg/dL HDL Cholesterol 30 (29-60) mg/dL Procalcitonin (0.19-0.49) NG/ML Urine Color (YELLOW) Urine Appearance (CLEAR) Urine pH (4.7-8.0) Ur Specific [place] (1.005-1.035) Urine Protein (<30 mg/dL) mg/dL Urine Glucose (UA) (NEGATIVE) mg/dL Urine Ketones (NEGATIVE) mg/dL Urine Blood (NEGATIVE) Urine Nitrate (NEGATIVE) Urine Bilirubin (NEGATIVE) Urine Urobilinogen (<1 E.U./dL) E.U./dL Ur Leukocyte Esterase (NEGATIVE) Dani/uL Urine RBC (0-2) /hpf Urine WBC (0-6) /hpf Ur Epithelial Cells (0-5) /hpf Urine Bacteria (NONE) /hpf Hepatitis A IgM Ab (NEGATIVE) Hep Bs Antigen (NEGATIVE) Hep B Core IgM Ab (NEGATIVE) Hepatitis C Antibody (NEGATIVE) Influenza Typ A,B (EIA) (NEGATIVE) Ur L.pneumophila Ag (NEGATIVE) Blood Type Antibody Screen BBK History Checked 07/03/18 07/03/18 07/03/18 Range/Units 23:15 22:00 20:15 WBC (4.5-11.0) 10^3/uL RBC (3.5-6.1) 10^6/uL Hgb (14.0-18.0) g/dL Hct (42.0-52.0) % MCV (80.0-105.0) fl MCH (25.0-35.0) pg MCHC (31.0-37.0) g/dl RDW (11.5-14.5) % Plt Count (120.0-450.0) 10^3/uL Manual Plt Count (120-450) K/mm3 Gran % (50.0-68.0) % Lymph % (Auto) (22.0-35.0) % [place] % (Auto) (1.0-6.0) % Eos % (Auto) (1.5-5.0) % Baso % (Auto) (0.0-3.0) % Gran # (1.4-6.5) Lymph # (Auto) (1.2-3.4) [place] # (Auto) (0.1-0.6) Eos # (Auto) (0.0-0.7) Baso # (Auto) (0.0-2.0) K/mm3 APTT 69.8 H (25.1-36.5) Seconds pCO2 (35-45) mm/Hg pO2 (80-100) mm/Hg HCO3 (21-28) mmol/L ABG pH (7.35-7.45) ABG Total CO2 (22-28) mmol.L ABG O2 Saturation (95-98) % ABG O2 Content (15-23) ML/dl ABG Base Excess (-2.0-3.0) mmol/L ABG Hemoglobin (11.7-17.4) g/dL ABG Carboxyhemoglobin (0.5-1.5) % POC ABG HHb (Measured) (0-5) % ABG Methemoglobin (0.0-3.0) % ABG O2 Capacity (16-24) mL/dl Hgb O2 Saturation (95.0-98.0) % FiO2 % Sodium 137 (132-148) mmol/L Potassium 4.6 (3.6-5.0) mmol/L Chloride 107 (98-107) mmol/L Carbon Dioxide 21 (21-33) mmol/L Anion Gap 13 (10-20) BUN 86 H (7-21) mg/dL Creatinine 2.8 H (0.8-1.5) mg/dl Est GFR ( Amer) 28 Est GFR (Non-Af Amer) 23 POC Glucose (mg/dL) 308 H (65-110) mg/dL Random Glucose 372 H* (70-110) mg/dL Calcium 7.9 L (8.4-10.5) mg/dL Total Bilirubin (0.2-1.3) mg/dL AST (17-59) U/L ALT (7-56) U/L Alkaline Phosphatase (38-126) U/L Troponin I ng/mL Total Protein (5.8-8.3) g/dL Albumin (3.0-4.8) g/dL Globulin gm/dL Albumin/Globulin Ratio (1.1-1.8) Triglycerides (35-160) mg/dL Cholesterol (130-200) mg/dL LDL Cholesterol Direct (0-129) mg/dL HDL Cholesterol (29-60) mg/dL Procalcitonin (0.19-0.49) NG/ML Urine Color (YELLOW) Urine Appearance (CLEAR) Urine pH (4.7-8.0) Ur Specific [place] (1.005-1.035) Urine Protein (<30 mg/dL) mg/dL Urine Glucose (UA) (NEGATIVE) mg/dL Urine Ketones (NEGATIVE) mg/dL Urine Blood (NEGATIVE) Urine Nitrate (NEGATIVE) Urine Bilirubin (NEGATIVE) Urine Urobilinogen (<1 E.U./dL) E.U./dL Ur Leukocyte Esterase (NEGATIVE) Dani/uL Urine RBC (0-2) /hpf Urine WBC (0-6) /hpf Ur Epithelial Cells (0-5) /hpf Urine Bacteria (NONE) /hpf Hepatitis A IgM Ab (NEGATIVE) Hep Bs Antigen (NEGATIVE) Hep B Core IgM Ab (NEGATIVE) Hepatitis C Antibody (NEGATIVE) Influenza Typ A,B (EIA) (NEGATIVE) Ur L.pneumophila Ag (NEGATIVE) Blood Type Antibody Screen BBK History Checked 07/03/18 07/03/18 07/03/18 Range/Units 20:15 20:10 20:10 WBC (4.5-11.0) 10^3/uL RBC (3.5-6.1) 10^6/uL Hgb (14.0-18.0) g/dL Hct (42.0-52.0) % MCV (80.0-105.0) fl MCH (25.0-35.0) pg MCHC (31.0-37.0) g/dl RDW (11.5-14.5) % Plt Count (120.0-450.0) 10^3/uL Manual Plt Count (120-450) K/mm3 Gran % (50.0-68.0) % Lymph % (Auto) (22.0-35.0) % [place] % (Auto) (1.0-6.0) % Eos % (Auto) (1.5-5.0) % Baso % (Auto) (0.0-3.0) % Gran # (1.4-6.5) Lymph # (Auto) (1.2-3.4) [place] # (Auto) (0.1-0.6) Eos # (Auto) (0.0-0.7) Baso # (Auto) (0.0-2.0) K/mm3 APTT (25.1-36.5) Seconds pCO2 (35-45) mm/Hg pO2 (80-100) mm/Hg HCO3 (21-28) mmol/L ABG pH (7.35-7.45) ABG Total CO2 (22-28) mmol.L ABG O2 Saturation (95-98) % ABG O2 Content (15-23) ML/dl ABG Base Excess (-2.0-3.0) mmol/L ABG Hemoglobin (11.7-17.4) g/dL ABG Carboxyhemoglobin (0.5-1.5) % POC ABG HHb (Measured) (0-5) % ABG Methemoglobin (0.0-3.0) % ABG O2 Capacity (16-24) mL/dl Hgb O2 Saturation (95.0-98.0) % FiO2 % Sodium (132-148) mmol/L Potassium (3.6-5.0) mmol/L Chloride (98-107) mmol/L Carbon Dioxide (21-33) mmol/L Anion Gap (10-20) BUN (7-21) mg/dL Creatinine (0.8-1.5) mg/dl Est GFR ( Amer) Est GFR (Non-Af Amer) POC Glucose (mg/dL) (65-110) mg/dL Random Glucose (70-110) mg/dL Calcium (8.4-10.5) mg/dL Total Bilirubin (0.2-1.3) mg/dL AST (17-59) U/L ALT (7-56) U/L Alkaline Phosphatase (38-126) U/L Troponin I 0.67 H* ng/mL Total Protein (5.8-8.3) g/dL Albumin (3.0-4.8) g/dL Globulin gm/dL Albumin/Globulin Ratio (1.1-1.8) Triglycerides (35-160) mg/dL Cholesterol (130-200) mg/dL LDL Cholesterol Direct (0-129) mg/dL HDL Cholesterol (29-60) mg/dL Procalcitonin (0.19-0.49) NG/ML Urine Color Yellow (YELLOW) Urine Appearance Sl cloudy (CLEAR) Urine pH 6.0 (4.7-8.0) Ur Specific [place] 1.020 (1.005-1.035) Urine Protein Trace H (<30 mg/dL) mg/dL Urine Glucose (UA) Negative (NEGATIVE) mg/dL Urine Ketones Negative (NEGATIVE) mg/dL Urine Blood Large H (NEGATIVE) Urine Nitrate Negative (NEGATIVE) Urine Bilirubin Negative (NEGATIVE) Urine Urobilinogen 0.2 (<1 E.U./dL) E.U./dL Ur Leukocyte Esterase Small H (NEGATIVE) Dani/uL Urine RBC 15 - 20 H (0-2) /hpf Urine WBC 2 - 5 (0-6) /hpf Ur Epithelial Cells 0 - 2 (0-5) /hpf Urine Bacteria Few (NONE) /hpf Hepatitis A IgM Ab (NEGATIVE) Hep Bs Antigen (NEGATIVE) Hep B Core IgM Ab (NEGATIVE) Hepatitis C Antibody (NEGATIVE) Influenza Typ A,B (EIA) Pos for influenza a H (NEGATIVE) Ur L.pneumophila Ag (NEGATIVE) Blood Type Antibody Screen BBK History Checked 07/03/18 07/03/18 07/03/18 Range/Units 20:10 18:44 15:35 WBC (4.5-11.0) 10^3/uL RBC (3.5-6.1) 10^6/uL Hgb (14.0-18.0) g/dL Hct (42.0-52.0) % MCV (80.0-105.0) fl MCH (25.0-35.0) pg MCHC (31.0-37.0) g/dl RDW (11.5-14.5) % Plt Count (120.0-450.0) 10^3/uL Manual Plt Count (120-450) K/mm3 Gran % (50.0-68.0) % Lymph % (Auto) (22.0-35.0) % [place] % (Auto) (1.0-6.0) % Eos % (Auto) (1.5-5.0) % Baso % (Auto) (0.0-3.0) % Gran # (1.4-6.5) Lymph # (Auto) (1.2-3.4) [place] # (Auto) (0.1-0.6) Eos # (Auto) (0.0-0.7) Baso # (Auto) (0.0-2.0) K/mm3 APTT (25.1-36.5) Seconds pCO2 (35-45) mm/Hg pO2 (80-100) mm/Hg HCO3 (21-28) mmol/L ABG pH (7.35-7.45) ABG Total CO2 (22-28) mmol.L ABG O2 Saturation (95-98) % ABG O2 Content (15-23) ML/dl ABG Base Excess (-2.0-3.0) mmol/L ABG Hemoglobin (11.7-17.4) g/dL ABG Carboxyhemoglobin (0.5-1.5) % POC ABG HHb (Measured) (0-5) % ABG Methemoglobin (0.0-3.0) % ABG O2 Capacity (16-24) mL/dl Hgb O2 Saturation (95.0-98.0) % FiO2 % Sodium (132-148) mmol/L Potassium (3.6-5.0) mmol/L Chloride (98-107) mmol/L Carbon Dioxide (21-33) mmol/L Anion Gap (10-20) BUN (7-21) mg/dL Creatinine (0.8-1.5) mg/dl Est GFR ( Amer) Est GFR (Non-Af Amer) POC Glucose (mg/dL) 368 H (65-110) mg/dL Random Glucose (70-110) mg/dL Calcium (8.4-10.5) mg/dL Total Bilirubin (0.2-1.3) mg/dL AST (17-59) U/L ALT (7-56) U/L Alkaline Phosphatase (38-126) U/L Troponin I ng/mL Total Protein (5.8-8.3) g/dL Albumin (3.0-4.8) g/dL Globulin gm/dL Albumin/Globulin Ratio (1.1-1.8) Triglycerides (35-160) mg/dL Cholesterol (130-200) mg/dL LDL Cholesterol Direct (0-129) mg/dL HDL Cholesterol (29-60) mg/dL Procalcitonin (0.19-0.49) NG/ML Urine Color (YELLOW) Urine Appearance (CLEAR) Urine pH (4.7-8.0) Ur Specific [place] (1.005-1.035) Urine Protein (<30 mg/dL) mg/dL Urine Glucose (UA) (NEGATIVE) mg/dL Urine Ketones (NEGATIVE) mg/dL Urine Blood (NEGATIVE) Urine Nitrate (NEGATIVE) Urine Bilirubin (NEGATIVE) Urine Urobilinogen (<1 E.U./dL) E.U./dL Ur Leukocyte Esterase (NEGATIVE) Dani/uL Urine RBC (0-2) /hpf Urine WBC (0-6) /hpf Ur Epithelial Cells (0-5) /hpf Urine Bacteria (NONE) /hpf Hepatitis A IgM Ab Negative (NEGATIVE) Hep Bs Antigen Negative (NEGATIVE) Hep B Core IgM Ab Negative (NEGATIVE) Hepatitis C Antibody Negative (NEGATIVE) Influenza Typ A,B (EIA) (NEGATIVE) Ur L.pneumophila Ag Negative (NEGATIVE) Blood Type Antibody Screen BBK History Checked 07/03/18 Range/Units 15:35 WBC (4.5-11.0) 10^3/uL RBC (3.5-6.1) 10^6/uL Hgb (14.0-18.0) g/dL Hct (42.0-52.0) % MCV (80.0-105.0) fl MCH (25.0-35.0) pg MCHC (31.0-37.0) g/dl RDW (11.5-14.5) % Plt Count (120.0-450.0) 10^3/uL Manual Plt Count (120-450) K/mm3 Gran % (50.0-68.0) % Lymph % (Auto) (22.0-35.0) % [place] % (Auto) (1.0-6.0) % Eos % (Auto) (1.5-5.0) % Baso % (Auto) (0.0-3.0) % Gran # (1.4-6.5) Lymph # (Auto) (1.2-3.4) [place] # (Auto) (0.1-0.6) Eos # (Auto) (0.0-0.7) Baso # (Auto) (0.0-2.0) K/mm3 APTT (25.1-36.5) Seconds pCO2 (35-45) mm/Hg pO2 (80-100) mm/Hg HCO3 (21-28) mmol/L ABG pH (7.35-7.45) ABG Total CO2 (22-28) mmol.L ABG O2 Saturation (95-98) % ABG O2 Content (15-23) ML/dl ABG Base Excess (-2.0-3.0) mmol/L ABG Hemoglobin (11.7-17.4) g/dL ABG Carboxyhemoglobin (0.5-1.5) % POC ABG HHb (Measured) (0-5) % ABG Methemoglobin (0.0-3.0) % ABG O2 Capacity (16-24) mL/dl Hgb O2 Saturation (95.0-98.0) % FiO2 % Sodium (132-148) mmol/L Potassium (3.6-5.0) mmol/L Chloride (98-107) mmol/L Carbon Dioxide (21-33) mmol/L Anion Gap (10-20) BUN (7-21) mg/dL Creatinine (0.8-1.5) mg/dl Est GFR ( Amer) Est GFR (Non-Af Amer) POC Glucose (mg/dL) (65-110) mg/dL Random Glucose (70-110) mg/dL Calcium (8.4-10.5) mg/dL Total Bilirubin (0.2-1.3) mg/dL AST (17-59) U/L ALT (7-56) U/L Alkaline Phosphatase (38-126) U/L Troponin I ng/mL Total Protein (5.8-8.3) g/dL Albumin (3.0-4.8) g/dL Globulin gm/dL Albumin/Globulin Ratio (1.1-1.8) Triglycerides (35-160) mg/dL Cholesterol (130-200) mg/dL LDL Cholesterol Direct (0-129) mg/dL HDL Cholesterol (29-60) mg/dL Procalcitonin 4.85 H (0.19-0.49) NG/ML Urine Color (YELLOW) Urine Appearance (CLEAR) Urine pH (4.7-8.0) Ur Specific [place] (1.005-1.035) Urine Protein (<30 mg/dL) mg/dL Urine Glucose (UA) (NEGATIVE) mg/dL Urine Ketones (NEGATIVE) mg/dL Urine Blood (NEGATIVE) Urine Nitrate (NEGATIVE) Urine Bilirubin (NEGATIVE) Urine Urobilinogen (<1 E.U./dL) E.U./dL Ur Leukocyte Esterase (NEGATIVE) Dani/uL Urine RBC (0-2) /hpf Urine WBC (0-6) /hpf Ur Epithelial Cells (0-5) /hpf Urine Bacteria (NONE) /hpf Hepatitis A IgM Ab (NEGATIVE) Hep Bs Antigen (NEGATIVE) Hep B Core IgM Ab (NEGATIVE) Hepatitis C Antibody (NEGATIVE) Influenza Typ A,B (EIA) (NEGATIVE) Ur L.pneumophila Ag (NEGATIVE) Blood Type Antibody Screen BBK History Checked Laboratory Results - last 24 hr 07/03/18 07/03/18 07/03/18 15:35 15:35 18:44 WBC RBC Hgb Hct MCV MCH MCHC RDW Plt Count Manual Plt Count Gran % Lymph % (Auto) [place] % (Auto) Eos % (Auto) Baso % (Auto) Gran # Lymph # (Auto) [place] # (Auto) Eos # (Auto) Baso # (Auto) APTT pCO2 pO2 HCO3 ABG pH ABG Total CO2 ABG O2 Saturation ABG O2 Content ABG Base Excess ABG Hemoglobin ABG Carboxyhemoglobin POC ABG HHb (Measured) ABG Methemoglobin ABG O2 Capacity Hgb O2 Saturation FiO2 Sodium Potassium Chloride Carbon Dioxide Anion Gap BUN Creatinine Est GFR ( Amer) Est GFR (Non-Af Amer) POC Glucose (mg/dL) 368 H Random Glucose Calcium Total Bilirubin AST ALT Alkaline Phosphatase Troponin I Total Protein Albumin Globulin Albumin/Globulin Ratio Triglycerides Cholesterol LDL Cholesterol Direct HDL Cholesterol Procalcitonin 4.85 H Urine Color Urine Appearance Urine pH Ur Specific [place] Urine Protein Urine Glucose (UA) Urine Ketones Urine Blood Urine Nitrate Urine Bilirubin Urine Urobilinogen Ur Leukocyte Esterase Urine RBC Urine WBC Ur Epithelial Cells Urine Bacteria Hepatitis A IgM Ab Negative Hep Bs Antigen Negative Hep B Core IgM Ab Negative Hepatitis C Antibody Negative Influenza Typ A,B (EIA) Ur L.pneumophila Ag Blood Type Antibody Screen BBK History Checked 07/03/18 07/03/18 07/03/18 20:10 20:10 20:10 WBC RBC Hgb Hct MCV MCH MCHC RDW Plt Count Manual Plt Count Gran % Lymph % (Auto) [place] % (Auto) Eos % (Auto) Baso % (Auto) Gran # Lymph # (Auto) [place] # (Auto) Eos # (Auto) Baso # (Auto) APTT pCO2 pO2 HCO3 ABG pH ABG Total CO2 ABG O2 Saturation ABG O2 Content ABG Base Excess ABG Hemoglobin ABG Carboxyhemoglobin POC ABG HHb (Measured) ABG Methemoglobin ABG O2 Capacity Hgb O2 Saturation FiO2 Sodium Potassium Chloride Carbon Dioxide Anion Gap BUN Creatinine Est GFR ( Amer) Est GFR (Non-Af Amer) POC Glucose (mg/dL) Random Glucose Calcium Total Bilirubin AST ALT Alkaline Phosphatase Troponin I Total Protein Albumin Globulin Albumin/Globulin Ratio Triglycerides Cholesterol LDL Cholesterol Direct HDL Cholesterol Procalcitonin Urine Color Yellow Urine Appearance Sl cloudy Urine pH 6.0 Ur Specific [place] 1.020 Urine Protein Trace H Urine Glucose (UA) Negative Urine Ketones Negative Urine Blood Large H Urine Nitrate Negative Urine Bilirubin Negative Urine Urobilinogen 0.2 Ur Leukocyte Esterase Small H Urine RBC 15 - 20 H Urine WBC 2 - 5 Ur Epithelial Cells 0 - 2 Urine Bacteria Few Hepatitis A IgM Ab Hep Bs Antigen Hep B Core IgM Ab Hepatitis C Antibody Influenza Typ A,B (EIA) Pos for influenza a H Ur L.pneumophila Ag Negative Blood Type Antibody Screen BBK History Checked 07/03/18 07/03/18 07/03/18 20:15 20:15 22:00 WBC RBC Hgb Hct MCV MCH MCHC RDW Plt Count Manual Plt Count Gran % Lymph % (Auto) [place] % (Auto) Eos % (Auto) Baso % (Auto) Gran # Lymph # (Auto) [place] # (Auto) Eos # (Auto) Baso # (Auto) APTT 69.8 H pCO2 pO2 HCO3 ABG pH ABG Total CO2 ABG O2 Saturation ABG O2 Content ABG Base Excess ABG Hemoglobin ABG Carboxyhemoglobin POC ABG HHb (Measured) ABG Methemoglobin ABG O2 Capacity Hgb O2 Saturation FiO2 Sodium 137 Potassium 4.6 Chloride 107 Carbon Dioxide 21 Anion Gap 13 BUN 86 H Creatinine 2.8 H Est GFR ( Amer) 28 Est GFR (Non-Af Amer) 23 POC Glucose (mg/dL) Random Glucose 372 H* Calcium 7.9 L Total Bilirubin AST ALT Alkaline Phosphatase Troponin I 0.67 H* Total Protein Albumin Globulin Albumin/Globulin Ratio Triglycerides Cholesterol LDL Cholesterol Direct HDL Cholesterol Procalcitonin Urine Color Urine Appearance Urine pH Ur Specific [place] Urine Protein Urine Glucose (UA) Urine Ketones Urine Blood Urine Nitrate Urine Bilirubin Urine Urobilinogen Ur Leukocyte Esterase Urine RBC Urine WBC Ur Epithelial Cells Urine Bacteria Hepatitis A IgM Ab Hep Bs Antigen Hep B Core IgM Ab Hepatitis C Antibody Influenza Typ A,B (EIA) Ur L.pneumophila Ag Blood Type Antibody Screen BBK History Checked 07/03/18 07/04/18 07/04/18 23:15 05:00 05:00 WBC 11.9 H RBC 4.11 Hgb 11.0 L Hct 35.1 L MCV 85.4 MCH 26.8 MCHC 31.3 RDW 16.9 H Plt Count 23 L* Manual Plt Count 42 L* Gran % 94.3 H Lymph % (Auto) 3.7 L [place] % (Auto) 1.9 Eos % (Auto) 0.0 L Baso % (Auto) 0.1 Gran # 11.18 H Lymph # (Auto) 0.4 L [place] # (Auto) 0.2 Eos # (Auto) 0.0 Baso # (Auto) 0.01 APTT pCO2 pO2 HCO3 ABG pH ABG Total CO2 ABG O2 Saturation ABG O2 Content ABG Base Excess ABG Hemoglobin ABG Carboxyhemoglobin POC ABG HHb (Measured) ABG Methemoglobin ABG O2 Capacity Hgb O2 Saturation FiO2 Sodium 141 Potassium 5.2 H Chloride 107 Carbon Dioxide 25 Anion Gap 15 BUN 85 H Creatinine 2.5 H Est GFR ( Amer) 32 Est GFR (Non-Af Amer) 26 POC Glucose (mg/dL) 308 H Random Glucose 208 H Calcium 8.3 L Total Bilirubin 0.7 AST 543 H D ALT 409 H Alkaline Phosphatase 72 Troponin I Total Protein 7.0 Albumin 4.0 Globulin 3.0 Albumin/Globulin Ratio 1.4 Triglycerides 172 H Cholesterol 162 LDL Cholesterol Direct 97 HDL Cholesterol 30 Procalcitonin Urine Color Urine Appearance Urine pH Ur Specific [place] Urine Protein Urine Glucose (UA) Urine Ketones Urine Blood Urine Nitrate Urine Bilirubin Urine Urobilinogen Ur Leukocyte Esterase Urine RBC Urine WBC Ur Epithelial Cells Urine Bacteria Hepatitis A IgM Ab Hep Bs Antigen Hep B Core IgM Ab Hepatitis C Antibody Influenza Typ A,B (EIA) Ur L.pneumophila Ag Blood Type Antibody Screen BBK History Checked 07/04/18 07/04/18 07/04/18 05:00 06:50 12:00 WBC RBC Hgb Hct MCV MCH MCHC RDW Plt Count Manual Plt Count Gran % Lymph % (Auto) [place] % (Auto) Eos % (Auto) Baso % (Auto) Gran # Lymph # (Auto) [place] # (Auto) Eos # (Auto) Baso # (Auto) APTT 87.2 H pCO2 33 L pO2 69.0 L HCO3 18.2 L ABG pH 7.35 ABG Total CO2 19.2 L ABG O2 Saturation 95.4 ABG O2 Content 13.0 L ABG Base Excess -6.6 L ABG Hemoglobin 9.8 L ABG Carboxyhemoglobin 1.3 POC ABG HHb (Measured) 4.5 ABG Methemoglobin 0.3 ABG O2 Capacity 13.6 L Hgb O2 Saturation 93.9 L FiO2 60.0 Sodium Potassium Chloride Carbon Dioxide Anion Gap BUN Creatinine Est GFR ( Amer) Est GFR (Non-Af Amer) POC Glucose (mg/dL) Random Glucose Calcium Total Bilirubin AST ALT Alkaline Phosphatase Troponin I Total Protein Albumin Globulin Albumin/Globulin Ratio Triglycerides Cholesterol LDL Cholesterol Direct HDL Cholesterol Procalcitonin Urine Color Urine Appearance Urine pH Ur Specific [place] Urine Protein Urine Glucose (UA) Urine Ketones Urine Blood Urine Nitrate Urine Bilirubin Urine Urobilinogen Ur Leukocyte Esterase Urine RBC Urine WBC Ur Epithelial Cells Urine Bacteria Hepatitis A IgM Ab Hep Bs Antigen Hep B Core IgM Ab Hepatitis C Antibody Influenza Typ A,B (EIA) Ur L.pneumophila Ag Blood Type O POSITIVE Antibody Screen Negative BBK History Checked Patient has bt 07/04/18 12:00 WBC RBC Hgb Hct MCV MCH MCHC RDW Plt Count Manual Plt Count Gran % Lymph % (Auto) [place] % (Auto) Eos % (Auto) Baso % (Auto) Gran # Lymph # (Auto) [place] # (Auto) Eos # (Auto) Baso # (Auto) APTT 77.2 H pCO2 pO2 HCO3 ABG pH ABG Total CO2 ABG O2 Saturation ABG O2 Content ABG Base Excess ABG Hemoglobin ABG Carboxyhemoglobin POC ABG HHb (Measured) ABG Methemoglobin ABG O2 Capacity Hgb O2 Saturation FiO2 Sodium Potassium Chloride Carbon Dioxide Anion Gap BUN Creatinine Est GFR ( Amer) Est GFR (Non-Af Amer) POC Glucose (mg/dL) Random Glucose Calcium Total Bilirubin AST ALT Alkaline Phosphatase Troponin I Total Protein Albumin Globulin Albumin/Globulin Ratio Triglycerides Cholesterol LDL Cholesterol Direct HDL Cholesterol Procalcitonin Urine Color Urine Appearance Urine pH Ur Specific [place] Urine Protein Urine Glucose (UA) Urine Ketones Urine Blood Urine Nitrate Urine Bilirubin Urine Urobilinogen Ur Leukocyte Esterase Urine RBC Urine WBC Ur Epithelial Cells Urine Bacteria Hepatitis A IgM Ab Hep Bs Antigen Hep B Core IgM Ab Hepatitis C Antibody Influenza Typ A,B (EIA) Ur L.pneumophila Ag Blood Type Antibody Screen BBK History Checked Radiology Impressions: Radiology Impressions Abdomen Ultrasound 07/03/18 14:16 IMPRESSION: Hepatosplenomegaly with hepatic steatosis. Small volume hepatic dome ascites. Stable appearance of left lower pole septated renal cyst. Chest X-Ray 07/04/18 06:00 IMPRESSION: New enteric tube in satisfactory position. Stable pulmonary parenchymal infiltrates primarily affecting the right lung. Critical Care Progress Note - Nutrition Nutrition: Nutrition Category Date Time Status Heart Healthy Diet [DIET] Diets 07/03/18 Dinner Active Addendum Addendum: 07/04/18 17:20 ICU Attending Addendum Patient seen and examined. Case reviewed on round with housestaff. Agree with resident note above with the following additions/exceptions 62M smoker with COPD, HTN, DM, PVD admitted with septic shock from influ A resulting in multi organ failure. Intubated for resp support and hypoxia. Cont low Vt ventilation as is cont tamiflu x 5 days as well empiric tx for superimposed PNA abx as per ID Elevated TNI likely demand from shock cont pressors for now on dobut with EF 15% unclear how acute this LV dysfuction is, I would expect him to be symptomatic prior to this admission if he was chronically suffering from this degree of heart failure on hep drip concern with chronic low plat, unclear etio however will get more info from hem/onc who he sees as outpt and rec plat transfusion goal > 20K cardio on board OG likely from shock as well, cont to monitor urine output Rest of care above Junior Mitchell MD Pulmonary Critical Care Attending Critical Care Time: 35 mins
[2018-07-04] MEDS: Insulin Reg-MEDIUM-Coverage SC SCH ×4 (08:39→22:21)
--- NOTE | 2018-07-04 09:08 | US ---
Date of service: 07/04/2018 HISTORY: RUQ, Transaminitis COMPARISON: Correlations made to renal ultrasound dated 04/15/2017; CT scan of the abdomen and pelvis dated 11/29/2016 TECHNIQUE: Sonographic evaluation of the abdomen. FINDINGS: LIVER: Measures 18.8 cm. Increased echogenicity of the liver parenchyma. No mass. No intrahepatic bile duct dilatation. Small volume a patent dome ascites GALLBLADDER: Unremarkable. No gallstones. COMMON BILE DUCT: Measures 4 mm. No stones. No dilatation. PANCREAS: Unremarkable as visualized. No mass. No ductal dilatation. RIGHT KIDNEY: Measures 11.0 x 4.9 x 6.2cm. Normal echogenicity. No calculus, mass, or hydronephrosis. LEFT KIDNEY: Measures 11.2 x 5.3 x 6.0cm. Lower pole cyst with thin avascular septation measuring 4.1 x 3.6 x 3.6 cm. Normal echogenicity. No calculus, mass, or hydronephrosis. SPLEEN: Enlarged, measuring 14.2 x 3.9 cm AORTA: No aneurysmal dilatation. IVC: Unremarkable. OTHER FINDINGS: None. IMPRESSION: Hepatosplenomegaly with hepatic steatosis. Small volume hepatic dome ascites. Stable appearance of left lower pole septated renal cyst.
--- NOTE | 2018-07-04 09:08 | HP ---
HISTORY OF PRESENT ILLNESS: The patient is a 62-year-old man with a past medical history of COPD who presented to [facility] ED for evaluation of a 2 day history of progressively worsening dyspnea. The patient was seen in his PMD's office 2 days prior to presentation and was diagnosed with sinusitis. Over the following 36 hours his developed fevers, chills, cough productive of green sputum, increased work of breathing and conversational dyspnea. Given his clinical deterioration, he was brought to the ED for further evaluation. Examination in the ED found him to be afebrile but a moderate respiratory distress. He was placed on BiPAP and promptly evaluated by the ICU team and admitted to the ICU due to concern about his tachypnea and increased work of breathing. Several hours later he was intubated for impending respiratory failure. Of note, he also had multiple laboratory derangements including hyperkalemia, transaminitis, thrombocytopenia, a markedly elevated BNP and an elevated troponin. This morning on examination he remains intubated, sedated and clinically unchanged. PAST MEDICAL HISTORY: As per HPI, also hypertension, pwu-rspybtv-vainynqhb diabetes mellitus, pseudogout, thrombocytopenia (immune-mediated), GERD, anxiety disorder, restless leg syndrome and PVD. PAST SURGICAL HISTORY: Repair of inguinal and umbilical hernias. ALLERGIES: NKDA. MEDICATIONS: Januvia 50 mg p.o. daily, Metformin 1000 mg p.o. b.i.d., Lisinopril 10 mg p.o. daily, Prevacid 30 mg p.o. daily, Lasix 40 mg p.o. daily, Zaroxolyn 2.5 mg p.o. t.i.w., Eltrombopag 75 mg p.o. daily, Amitriptyline 25 mg p.o. h.s., Xanax 0.5 mg p.o. b.i.d. and Ropinirole 4 mg p.o. daily. FAMILY HISTORY: Significant for hypertension, hyperlipidemia, diabetes and CAD with [place] in his father and 2 uncles in early 50s. SOCIAL HISTORY: Significant for a 11-yfak-kien smoking history and social alcohol use. No history of illicit drug abuse. REVIEW OF SYSTEMS: A 12-point review of systems is unobtainable as the patient is intubated. PHYSICAL EXAMINATION: VITAL SIGNS: Temperature 100.9, pulse 109, blood pressure 113/74, respiratory rate 26, oxygen saturation 100% on 60% FiO2. GENERAL: Intubated and sedated. HEENT: Normocephalic, atraumatic. PERRL. NECK: No JVD. LUNGS: Coarse breath sounds anteriorly with scattered rhonchi and bibasilar crackles. CARDIOVASCULAR: Tachycardic. Normal S1, S2. ABDOMEN: Normoactive bowel sounds. Soft, nontender, nondistended. EXTREMITIES: Trace lower extremity edema bilaterally. NEUROLOGIC: The patient remains sedated. LABORATORY DATA: WBC 11.9 with 94% neutrophils, hemoglobin 11, hematocrit 35, platelets 23. Sodium 141, potassium 5.2, chloride 107, bicarb 25, BUN 85, creatinine 2.5, glucose 208. AST 543, ALT 409. Procalcitonin 4.85. Troponin 0.48, 0.67, 0.67. BNP 53,800. Hepatitis serology negative. Influenza A positive. IMAGING STUDIES: 1. Chest x-ray demonstrates extensive right upper lobe and lower lobe infiltrates likely representing pneumonia. 2. CT of the chest without contrast demonstrates extensive alveolar infiltrates throughout the right lung and a small consolidation to the left lung base consistent with pneumonia. DIAGNOSTIC STUDIES: TTE demonstrates a severely impaired systolic function with akinetic septum and a moderately dilated and severely hypokinetic right ventricle. ASSESSMENT: The patient is a 62-year-old man with multiple medical comorbidities who is admitted to the ICU s/p intubation for impending respiratory failure secondary to severe severe sepsis secondary to community acquired pneumonia with Influenza, acute systolic heart failure new onset), NSTEMI, OG and transaminitis. PLAN: 1. Acute respiratory failure s/p intubation. Input from Dr. Sung noted and greatly appreciated. Evaluation with Dr. Burr of Pulmonary and Critical Care Medicine is pending. Continue with care as per the ICU team. 2. Severe sepsis secondary to community-acquired pneumonia with influenza. Input from Dr. Lucero noted and greatly appreciated. Continue current antimicrobials. Continue to monitor for fever, leukocytosis and await culture reports. 3. NSTEMI. Most recent troponin of 0.67. Evaluation with Dr. Saxena of Cardiology is pending. Continue with heparin drip. 4. Acute systolic heart failure, new onset. TTE reviewed. As above, cardiology evaluation is pending. Continue inotropic support. 5. Acute kidney injury, etiology likely secondary to medication-induced superimposed on severe sepsis. Evaluation with Dr. Sullivan of Nephrology pending. Continue with gentle IV fluid hydration. Continue to monitor strict I&O's, renally dose medications and avoid nephrotoxins. 6. Transaminitis, consider secondary to poor perfusion in the setting of an acute systolic heart failure. Acute hepatitis panel negative. Abdominal ultrasound pending for further evaluation. 7. 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 He is followed by Dr. Estevez on an outpatient basis. We will continue to monitor platelets and transfuse as needed. Resume Eltrombopag when able to tolerate p.o. intake. 8. Type 2 diabetes mellitus. Continue medium-dose insulin sliding scale for coverage. 9. Hypertension. Continue to hold antihypertensives given the patient's tenuous hemodynamics. We will continue to monitor and adjust medications as needed. 10. Pseudogout. 11. Anxiety disorder. 12. GERD. Continue Protonix 40 mg p.o. daily. 13. Prophylaxis. Continue with Protonix for GI prophylaxis. DVT prophylaxis not indicated as the patient remains on heparin drip. CODE STATUS: Full code. Yassine Martinez MD MTDЮлия
[2018-07-04] MEDS: DOBUTamine 500mg/250ml D5W 500 MG/250 ML BAG IV PRN ×2 (10:00→16:50)
[2018-07-04] MEDS ORDERED: Oseltamivir 6 MG/ML PO SCH ×2 (10:00)
[2018-07-04] MEDS ORDERED: Cefepime 1gm in NS 100ml 1 GM/100 ML BAG IVPB SCH (10:00)
[2018-07-04] MEDS: MEROPENEM 500 MG in NS 500 MG/50 ML BAG IVPB SCH ×2 (10:04→21:48)
[2018-07-04] MEDS: MethylPREDNISolone 40 mg Vial IVP SCH ×2 (10:04→21:48)
[2018-07-04] MEDS: Oseltamivir 6 MG/ML PO SCH ×2 (10:05→21:48)
[2018-07-04 10:15] LABS: PLATELET COUNT MANUAL 42 K/mm3 (120-450)
[2018-07-04] MEDS ORDERED: DOBUTamine 500mg/250ml D5W 500 MG/250 ML BAG IV PRN (10:26)
--- NOTE | 2018-07-04 10:27 | RAD ---
Date of service: 07/04/2018 HISTORY: intubated, PNA COMPARISON: Chest radiograph dated 07/03/2018. FINDINGS: LUNGS: Stable pulmonary parenchymal infiltrates primarily affecting the right lung. PLEURA: No significant pleural effusion identified, no pneumothorax apparent. CARDIOVASCULAR: Atherosclerotic aortic calcifications. Cardiomediastinal silhouette stably enlarged. OSSEOUS STRUCTURES: Unchanged. VISUALIZED UPPER ABDOMEN: Normal. OTHER FINDINGS: New enteric tube with tip in the stomach. Endotracheal tube, unchanged. IMPRESSION: New enteric tube in satisfactory position. Stable pulmonary parenchymal infiltrates primarily affecting the right lung.
--- NOTE | 2018-07-04 10:39 | PN ---
DATE: 07/04/2018 LOCATION: The patient is in bed in the ICU 129, bed 6. SUBJECTIVE: Remains intubated on the ventilator with fevers. PHYSICAL EXAMINATION: VITAL SIGNS: Temperature 102, pulse 109. Respiratory rate, on the vent. Blood pressure is 113/70. HEENT: Examination of HEENT is unremarkable. NECK: Supple. The ET tube is in place. LUNGS: Decreased breath sounds. HEART: Normal S1, S2. ABDOMEN: Soft. LABORATORY DATA: White count 11,900, hemoglobin 11, platelets of 46. BUN of 86. Creatinine is 2.8. Urinalysis is noted. Serology is noted. Influenza is positive. Microbiology is pending. Microbiology, blood cultures are pending, urine cultures are pending, sputum cultures are pending. MRSA screen is pending. Legionella antigen is pending. MEDICATIONS: The patient is currently on meropenem and Levaquin, Solu-Medrol, Tamiflu.. ASSESSMENT AND PLAN: This is a 62-year-old male, long-time active smoker, chronic obstructive lung disease, hypertension, diabetes, peripheral vascular disease, history of elbow septic arthritis, history of cardiac disease who was admitted now with severe sepsis and respiratory failure, intubated on the ventilator, hypoxic respiratory failure, [id number] respiratory and renal failure and with severe right-sided community-acquired pneumonia and thrombocytopenia and positive for influenza and the patient with chronic obstructive lung disease, long-time smoker; currently on Levaquin, meropenem and Tamiflu with influenza positive for influenza A with an elevated procalcitonin of 4.85 in the face of a creatinine of 2.6 which is elevated from before. In 2017, the patient had a creatinine of 1.8 and prior to that was 1.1. So, acute kidney injury on top of chronic kidney disease and positive troponins with nonspecific ST changes consistent with a [id number]-OR-pchzllrln myocardial infarction. Overall prognosis poor for this 62-year-old. Satya Fernandes MD
--- NOTE | 2018-07-04 12:47 | CON ---
DATE OF CONSULTATION: 07/04/2018 HISTORY: The patient is a 62-year-old male who presents via EMS for progressive shortness of breath and fever. The patient's past medical history is notable for diabetes mellitus, hypertension with documented CHF in the past. He has been followed by Nephrology for his renal insufficiency. No previous cardiac workup has been noted. No previous cardiac history is noted. He does admit, according to the family, to smoking one pack of cigarettes per day. In the ICU, the patient became markedly dyspneic with progressive respiratory failure. He was intubated and currently is sedated. Social history and review of systems are currently unavailable. PHYSICAL EXAMINATION: GENERAL: The patient is sedated on a ventilator. VITAL SIGNS: Blood pressure yesterday 90/49, currently is 113/74; temperature is 102; heart rate is 100, sinus tachycardia. NECK: Negative JVD. LUNGS: Decreased breath sounds bilaterally. HEART: S1, S2. EXTREMITIES: Without marked excoriations and scarring with chronic edema in the lower extremities. LABORATORY DATA: EKG shows diffuse ST-T changes. Hemoglobin is 11, white count is 11.9, platelet count is 23,000. Chemistries: BUN and creatinine on admission were 86 and 2.8. On dobutamine, which was started yesterday, it is down to 85 and 2.5. The glucose is 208. Troponin is 0.67 International Units. Echocardiogram done reveals severely dilated cardiomyopathy with an ejection fraction of 14%. There is moderate pulmonary hypertension. IMPRESSION: 1. Respiratory failure. 2. Acute systolic congestive heart failure. 3. Ischemic dilated cardiomyopathy (severe). 4. Chronic obstructive pulmonary disease. 5. Infection. 6. Renal insufficiency. 7. Diabetes mellitus. 8. Non-ST elevation myocardial infarction. 9. High probability for significant coronary artery disease. PLAN: 1. Given these findings, the patient is currently on IV antibiotics. 2. We started him on IV dobutamine yesterday and we will increase it today from 2.5 to 5 mcg. If his infection is improved, we will consider cardiac catheterization on Friday. We will discuss with the family the risks and benefits of catheterization, especially contrast nephropathy given his baseline renal insufficiency. Benjamin Saxena MD
[2018-07-04] MEDS: Fentanyl 1000mcg/100ml NS 1,000 MCG/100 ML BAG IV PRN (13:59)
[2018-07-04] MEDS: Heparin 25,000units in 1/2NS 250 ML BAG IV SCH (16:50)
--- NOTE | 2018-07-04 21:21 | CP.PCM.CON ---
History of Present Illness - History of Present Illness History of Present Illness: NEPHROLOGY CONSULTATION (providing coverage for Dr. Sullivan); 62 yo M w/ pmh of htn, dm, PAD, and COPD presented to ED with dyspnea; admitted to ICU for hypoxemic respiratory failure; nephrology being consulted for acute kidney injury; Patient reportedly had 2 day history of fever, chills and cough prior to presentation; further history not available from patient as he was intubated shortly after admission due to increased work of breathing; he did receive about 4L of IVF yesterday due to concern for sepsis with imaging showing R lung infiltrates and high fever; patient was also noted to have severely depressed EF on echo and started on dobutamine drip for possible component of acute CHF exacerbation, IVF subsequently stopped; Review of Systems - Review of Systems Systems not reviewed;Unavailable: Intubated Past Patient History - Infectious Disease Hx of Infectious Diseases: None - Past Medical History & Family History Pertinent Family History: not available - Past Social History Smoking Status: Heavy Smoker > 10 Cigarettes Daily - CARDIAC Hx Cardiac Disorders: Yes Hx Hypertension: Yes Hx Peripheral Edema: Yes (ble +1 pitting) Other/Comment: large veins noted to right arm - PULMONARY Hx Respiratory Disorders: Yes Other/Comment: recently treated by pmd for sinus infection and cough - NEUROLOGICAL Hx Neurological Disorder: Yes Other/Comment: Neuropathy bilateral feet, restless legs - HEENT Hx HEENT Problems: No Other/Comment: had allergic reaction cause unknown 11/2015 hives/throat closed/swollen eyes and lips. recently treated by pmd for sinus infection and cough - RENAL Hx Chronic Kidney Disease: No - ENDOCRINE/METABOLIC Hx Endocrine Disorders: Yes Hx Diabetes Mellitus Type 2: Yes - HEMATOLOGICAL/ONCOLOGICAL Hx Blood Disorders: Yes (thrombocytopenia) Hx Anemia: Yes (blood transfusions) Other/Comment: septic arthritis r elbow 2016 - INTEGUMENTARY Other/Comment: hx of swollen red r elbow 01/17/16 work related hit it while getting a pot developed staph infection, had picc line inserted for abx cycle finished but elbow became red and swollen again, presently healed. 2nd degree burn 2016 at work rfa healed, left lower leg wound was a blister that broke, sk in now red raw draining brown and yellow foul smelling drainage, pt non compliant i having dressing changed every [address] edwards, right foot great toe tred swollen and thick yellow toenail covered with dsd, outer side of right foot draining wound with medicated pad and dressing covering wound brown drainage noted, ble brown skin discolorations and dry skin +1 pitting edema, dry red scab surrounded by red skin to left knee from a fall - MUSCULOSKELETAL/RHEUMATOLOGICAL Hx Falls: Yes (a few weeks ago) - GASTROINTESTINAL Hx Gastrointestinal Disorders: Yes (RECTAL BLEED 11-29-16 DX DIVERTICULITIS) Hx Diverticulitis: Yes Other/Comment: takes metamucil daily to keep stool soft due to hx of rectal bleeding and thrombocytopenia, spouse thinks last bm was 07/01/18/ obese - GENITOURINARY/GYNECOLOGICAL Hx Genitourinary Disorders: No - PSYCHIATRIC Hx Psychophysiologic Disorder: Yes Hx Anxiety: Yes - SURGICAL HISTORY Hx Surgeries: Yes Other/Comment: SIGMOIDOSCOPY. RIGHT KNEE ARTHROSCOPY. L INGUINAL HERNIORHAPY - ANESTHESIA Hx Anesthesia: Yes Hx Anesthesia Reactions: No Hx Malignant Hyperthermia: No Meds Allergies/Adverse Reactions: Allergies Allergy/AdvReac Type Severity Reaction Status Date / Time nut Allergy RASH Uncoded 11/29/16 22:27 fruit AdvReac RASH Uncoded 11/29/16 22:27 - Medications Medications: Current Medications Albuterol/Ipratropium (Duoneb 3 Mg/0.5 Mg (3 Ml) Ud) 3 ml IH [id number] [facility] Last Admin: 07/04/18 14:23 Dose: 3 ml Albuterol/Ipratropium (Duoneb 3 Mg/0.5 Mg (3 Ml) Ud) 3 ml IH Q2H PRN PRN Reason: Shortness of Breath Meropenem/Sodium Chloride (Merrem Iv 500 Mg/Ns 50 Ml) 500 mg in 50 mls @ 100 mls/hr IVPB Q12 [facility]; Protocol Stop: 07/10/18 14:16 Last Admin: 07/04/18 10:04 Dose: 100 mls/hr Levofloxacin/Dextrose (Levaquin 500mg) 500 mg in 100 mls @ 100 mls/hr IVPB Q48H [facility]; Protocol Last Admin: 07/04/18 06:29 Dose: 100 mls/hr Heparin Sodium/Sodium Chloride (Heparin 12086 Units/250ml 1/2 Normal Saline) 25,000 units in 250 mls @ 11.158 mls/hr IV .[id number] [facility]ON; Protocol Last Admin: 07/04/18 16:50 Dose: 10 units/kg/hr, 9.299 mls/hr Propofol (Diprivan) 1,000 mg in 100 mls @ 2.79 mls/hr IV .Q24H PRN; Protocol PRN Reason: TITRATE PER MD ORDER Last Admin: 07/04/18 16:48 Dose: 40 mcg/kg/min, 22.317 mls/hr Fentanyl Citrate (Fentanyl Citrate/Sodium Chloride 1 Mg/100 Ml) 1,000 mcg in 100 mls @ 10 mls/hr IV .Q10H PRN; Protocol PRN Reason: TITRATE PER MD ORDER Last Admin: 07/04/18 13:59 Dose: 50 mcg/hr, 5 mls/hr Dobutamine HCl/Dextrose (Dobutamine/Dextrose 5% 500mg/250ml) 500 mg in 250 mls @ 14.628 mls/hr IV .Q17H6M PRN PRN Reason: SYSTOLIC BLOOD PRESSURE Last Admin: 07/04/18 16:50 Dose: 14.628 mls/hr Ibuprofen (Motrin Oral Susp) 400 mg PO Q6H PRN PRN Reason: Fever >100.4 F Last Admin: 07/04/18 14:34 Dose: 400 mg Insulin Human Regular (Humulin R Med) 0 units SC [facility]; Protocol Last Admin: 07/04/18 16:28 Dose: Not Given Methylprednisolone (Solu-Medrol) 40 mg IVP Q12 [facility] Last Admin: 07/04/18 10:04 Dose: 40 mg Oseltamivir Phosphate (Tamiflu Susp) 30 mg PO Q12 [facility] Last Admin: 07/04/18 10:05 Dose: 30 mg Pantoprazole Sodium (Protonix Inj) 40 mg IVP DAILY [facility] Last Admin: 07/04/18 10:04 Dose: 40 mg Physical Exam - Constitutional Appears: Non-toxic, No Acute Distress - Eye Exam Eye Exam: Normal appearance. absent: Scleral icterus - ENT Exam ENT Exam: Mucous Membranes Moist - Neck Exam Neck exam: Negative for: Lymphadenopathy - Respiratory Exam Respiratory Exam: Clear to Auscultation Bilateral. absent: Respiratory Distress - Cardiovascular Exam Cardiovascular Exam: RRR, +S1, +S2. absent: Gallop, Rubs - GI/Abdominal Exam GI & Abdominal Exam: Soft. absent: Distended, Tenderness - Exam Exam: absent: Bladder Distension - Extremities Exam Additional comments: mild leg edema b/l; - Neurological Exam Additional comments: sedated; not responsive to verbal stimuli - Psychiatric Exam Additional comments: not agitated - Skin Skin Exam: Normal Color, Warm Results - Vital Signs Recent Vital Signs: Last Vital Signs Temp 100.6 F H 07/04/18 15:30 Pulse 97 H 07/04/18 18:00 Resp 26 H 07/04/18 11:29 BP 123/74 07/04/18 16:50 Pulse Ox 98 07/04/18 15:30 - Labs Result Diagrams: 07/04/18 05:00 07/04/18 05:00 Labs: Laboratory Results - last 24 hr 07/03/18 07/03/18 07/03/18 15:35 15:35 18:44 WBC RBC Hgb Hct MCV MCH MCHC RDW Plt Count Manual Plt Count Gran % Lymph % (Auto) [place] % (Auto) Eos % (Auto) Baso % (Auto) Gran # Lymph # (Auto) [place] # (Auto) Eos # (Auto) Baso # (Auto) APTT pCO2 pO2 HCO3 ABG pH ABG Total CO2 ABG O2 Saturation ABG O2 Content ABG Base Excess ABG Hemoglobin ABG Carboxyhemoglobin POC ABG HHb (Measured) ABG Methemoglobin ABG O2 Capacity Hgb O2 Saturation FiO2 Sodium Potassium Chloride Carbon Dioxide Anion Gap BUN Creatinine Est GFR ( Amer) Est GFR (Non-Af Amer) POC Glucose (mg/dL) 368 H Random Glucose Calcium Total Bilirubin AST ALT Alkaline Phosphatase Total Protein Albumin Globulin Albumin/Globulin Ratio Triglycerides Cholesterol LDL Cholesterol Direct HDL Cholesterol Procalcitonin 4.85 H Urine Color Urine Appearance Urine pH Ur Specific Parker Urine Protein Urine Glucose (UA) Urine Ketones Urine Blood Urine Nitrate Urine Bilirubin Urine Urobilinogen Ur Leukocyte Esterase Urine RBC Urine WBC Ur Epithelial Cells Urine Bacteria Hepatitis A IgM Ab Negative Hep Bs Antigen Negative Hep B Core IgM Ab Negative Hepatitis C Antibody Negative Influenza Typ A,B (EIA) Ur L.pneumophila Ag Blood Type Antibody Screen BBK History Checked 07/03/18 07/03/18 07/03/18 20:10 20:10 20:10 WBC RBC Hgb Hct MCV MCH MCHC RDW Plt Count Manual Plt Count Gran % Lymph % (Auto) [place] % (Auto) Eos % (Auto) Baso % (Auto) Gran # Lymph # (Auto) [place] # (Auto) Eos # (Auto) Baso # (Auto) APTT pCO2 pO2 HCO3 ABG pH ABG Total CO2 ABG O2 Saturation ABG O2 Content ABG Base Excess ABG Hemoglobin ABG Carboxyhemoglobin POC ABG HHb (Measured) ABG Methemoglobin ABG O2 Capacity Hgb O2 Saturation FiO2 Sodium Potassium Chloride Carbon Dioxide Anion Gap BUN Creatinine Est GFR ( Amer) Est GFR (Non-Af Amer) POC Glucose (mg/dL) Random Glucose Calcium Total Bilirubin AST ALT Alkaline Phosphatase Total Protein Albumin Globulin Albumin/Globulin Ratio Triglycerides Cholesterol LDL Cholesterol Direct HDL Cholesterol Procalcitonin Urine Color Yellow Urine Appearance Sl cloudy Urine pH 6.0 Ur Specific [place] 1.020 Urine Protein Trace H Urine Glucose (UA) Negative Urine Ketones Negative Urine Blood Large H Urine Nitrate Negative Urine Bilirubin Negative Urine Urobilinogen 0.2 Ur Leukocyte Esterase Small H Urine RBC 15 - 20 H Urine WBC 2 - 5 Ur Epithelial Cells 0 - 2 Urine Bacteria Few Hepatitis A IgM Ab Hep Bs Antigen Hep B Core IgM Ab Hepatitis C Antibody Influenza Typ A,B (EIA) Pos for influenza a H Ur L.pneumophila Ag Negative Blood Type Antibody Screen BBK History Checked 07/03/18 07/03/18 07/04/18 22:00 23:15 05:00 WBC 11.9 H RBC 4.11 Hgb 11.0 L Hct 35.1 L MCV 85.4 MCH 26.8 MCHC 31.3 RDW 16.9 H Plt Count 23 L* Manual Plt Count 42 L* Gran % 94.3 H Lymph % (Auto) 3.7 L [place] % (Auto) 1.9 Eos % (Auto) 0.0 L Baso % (Auto) 0.1 Gran # 11.18 H Lymph # (Auto) 0.4 L [place] # (Auto) 0.2 Eos # (Auto) 0.0 Baso # (Auto) 0.01 APTT 69.8 H pCO2 pO2 HCO3 ABG pH ABG Total CO2 ABG O2 Saturation ABG O2 Content ABG Base Excess ABG Hemoglobin ABG Carboxyhemoglobin POC ABG HHb (Measured) ABG Methemoglobin ABG O2 Capacity Hgb O2 Saturation FiO2 Sodium Potassium Chloride Carbon Dioxide Anion Gap BUN Creatinine Est GFR ( Amer) Est GFR (Non-Af Amer) POC Glucose (mg/dL) 308 H Random Glucose Calcium Total Bilirubin AST ALT Alkaline Phosphatase Total Protein Albumin Globulin Albumin/Globulin Ratio Triglycerides Cholesterol LDL Cholesterol Direct HDL Cholesterol Procalcitonin Urine Color Urine Appearance Urine pH Ur Specific Parker Urine Protein Urine Glucose (UA) Urine Ketones Urine Blood Urine Nitrate Urine Bilirubin Urine Urobilinogen Ur Leukocyte Esterase Urine RBC Urine WBC Ur Epithelial Cells Urine Bacteria Hepatitis A IgM Ab Hep Bs Antigen Hep B Core IgM Ab Hepatitis C Antibody Influenza Typ A,B (EIA) Ur L.pneumophila Ag Blood Type Antibody Screen BBK History Checked 07/04/18 07/04/18 07/04/18 05:00 05:00 06:50 WBC RBC Hgb Hct MCV MCH MCHC RDW Plt Count Manual Plt Count Gran % Lymph % (Auto) [place] % (Auto) Eos % (Auto) Baso % (Auto) Gran # Lymph # (Auto) [place] # (Auto) Eos # (Auto) Baso # (Auto) APTT 87.2 H pCO2 33 L pO2 69.0 L HCO3 18.2 L ABG pH 7.35 ABG Total CO2 19.2 L ABG O2 Saturation 95.4 ABG O2 Content 13.0 L ABG Base Excess -6.6 L ABG Hemoglobin 9.8 L ABG Carboxyhemoglobin 1.3 POC ABG HHb (Measured) 4.5 ABG Methemoglobin 0.3 ABG O2 Capacity 13.6 L Hgb O2 Saturation 93.9 L FiO2 60.0 Sodium 141 Potassium 5.2 H Chloride 107 Carbon Dioxide 25 Anion Gap 15 BUN 85 H Creatinine 2.5 H Est GFR ( Amer) 32 Est GFR (Non-Af Amer) 26 POC Glucose (mg/dL) Random Glucose 208 H Calcium 8.3 L Total Bilirubin 0.7 AST 543 H D ALT 409 H Alkaline Phosphatase 72 Total Protein 7.0 Albumin 4.0 Globulin 3.0 Albumin/Globulin Ratio 1.4 Triglycerides 172 H Cholesterol 162 LDL Cholesterol Direct 97 HDL Cholesterol 30 Procalcitonin Urine Color Urine Appearance Urine pH Ur Specific [place] Urine Protein Urine Glucose (UA) Urine Ketones Urine Blood Urine Nitrate Urine Bilirubin Urine Urobilinogen Ur Leukocyte Esterase Urine RBC Urine WBC Ur Epithelial Cells Urine Bacteria Hepatitis A IgM Ab Hep Bs Antigen Hep B Core IgM Ab Hepatitis C Antibody Influenza Typ A,B (EIA) Ur L.pneumophila Ag Blood Type Antibody Screen BBK History Checked 07/04/18 07/04/18 07/04/18 12:00 12:00 19:59 WBC RBC Hgb Hct MCV MCH MCHC RDW Plt Count Manual Plt Count Gran % Lymph % (Auto) [place] % (Auto) Eos % (Auto) Baso % (Auto) Gran # Lymph # (Auto) [place] # (Auto) Eos # (Auto) Baso # (Auto) APTT 77.2 H 82.4 H pCO2 pO2 HCO3 ABG pH ABG Total CO2 ABG O2 Saturation ABG O2 Content ABG Base Excess ABG Hemoglobin ABG Carboxyhemoglobin POC ABG HHb (Measured) ABG Methemoglobin ABG O2 Capacity Hgb O2 Saturation FiO2 Sodium Potassium Chloride Carbon Dioxide Anion Gap BUN Creatinine Est GFR ( Amer) Est GFR (Non-Af Amer) POC Glucose (mg/dL) Random Glucose Calcium Total Bilirubin AST ALT Alkaline Phosphatase Total Protein Albumin Globulin Albumin/Globulin Ratio Triglycerides Cholesterol LDL Cholesterol Direct HDL Cholesterol Procalcitonin Urine Color Urine Appearance Urine pH Ur Specific [place] Urine Protein Urine Glucose (UA) Urine Ketones Urine Blood Urine Nitrate Urine Bilirubin Urine Urobilinogen Ur Leukocyte Esterase Urine RBC Urine WBC Ur Epithelial Cells Urine Bacteria Hepatitis A IgM Ab Hep Bs Antigen Hep B Core IgM Ab Hepatitis C Antibody Influenza Typ A,B (EIA) Ur L.pneumophila Ag Blood Type O POSITIVE Antibody Screen Negative BBK History Checked Patient has bt - Imaging and Cardiology US - abdomen Status: Image reviewed by me Additional comment: Normal renal cortical thickness/echogenicity, no hydronephrosis Assessment & Plan (1) Acute kidney injury Assessment and Plan: Likely ATN in the setting of sepsis and mild hypotension; may have cardiorenal component in the setting of severely depressed biventricular dysfunction; has already received adequate amount of intravascular volume repletion and having good urine output; borderline hyperkalemia noted, otherwise lactic acidosis appears resolved with normal anion gap; renal function slightly improved today; still with increased FIO2 requirement (60%) but stable; -Recommend to keep net even fluid balance as we need to balance between sepsis and concern for CHF; currently hemodynamically stable; no need for IVF or diuretics at this time; -Continue inotropic support per cardiology recs (dobutamine dose increased); -Avoid nephrotoxic meds (including NSAIDS as it can cause hyperkalemia and cause decreased ability for renal autoregulation) -Checking urine lytes (low urine Na would support decreased renal perfusion); Status: Acute (2) Hyperkalemia Assessment and Plan: Relatively mild, see above; if progresses, can give kayexalate (if no GI contraindication; otherwise, forced diuresis with IVF and diuretics is an option); will simply monitor for now; stopping ibuprofen; Status: Acute (3) CHF (congestive heart failure) Assessment and Plan: Cardiology input noted regarding possible cardiac cath; agree that patient would be high risk for contrast induced nephropathy with any IV dye studies; limited ability to give prophylaxis with IVF given CHF/hypoxemic respiratory failure; otherwise, renal function may already be improving and should consider waiting till serum creatinine close to baseline before any IV dye study (unless study is urgent); will follow; Status: Acute (4) Sepsis Assessment and Plan: Currently on meropenem and levaquin per ID, dosed for CrCl < 30 ml/min; Status: Acute (5) Acute hypoxemic respiratory failure Assessment and Plan: see above; Status: Acute - Assessment and Plan (Free Text) Assessment: Critical care time spent > 35 minutes;
--- NOTE | 2018-07-05 | CON ---
DATE: 07/04/2018 PULMONARY CONSULTATION HISTORY OF PRESENT ILLNESS: The patient was seen and examined in Intensive Care Unit on a ventilator. He is receiving broad antibiotic coverage with levofloxacin, meropenem, as well as Tamiflu. He is also on steroids. Tamiflu was given because he was found to be positive for influenza A. The patient is 62 years old with past medical history of COPD, active smoker, with also history of hypertension, diabetes, peripheral vascular disease. He presented to emergency room with 2-day history of fever, chills and nonproductive cough. He also started being short of breath. Denied chest pain, denied palpitations and denied recent travels. He was placed on BiPAP however, he has hypoxia did not resolve and he required endotracheal intubation. SOCIAL HISTORY: He is a smoker, 1 pack per day. Denies alcohol. Denies drug abuse. FAMILY HISTORY: Negative for inherited diseases. PAST MEDICAL HISTORY: As above. ALLERGIES: HE IS ALLERGIC TO NUTS AND CERTAIN FRUITS. REVIEW OF SYSTEMS: Conducted by reviewing all sources. The patient is unable to give any history since he is intubated and sedated. It appears that pulmonary positive for COPD and smoking. Endocrine, positive for diabetes mellitus. GI, positive for rectal bleeding. The rest of the systems was reviewed and found to be negative. PHYSICAL EXAMINATION: GENERAL: He is intubated and sedated. VITAL SIGNS: Temperature 102.5, pulse is 112, respirations 22, blood pressure 96/71 and pulse oximetry currently on ventilator 98%. HEENT: Head normocephalic and atraumatic. NECK: Supple. No jugular vein distention. CARDIOVASCULAR: S1 and S2. No S3, regular. PULMONARY: Bilateral coarse rhonchi. No wheezing. GI: Soft and nontender. No organomegaly. EXTREMITIES: No pedal edema. SKIN: No acute skin rash. NEUROLOGIC: Limited at present time. LABORATORY DATA: His WBC on admission 11.9, hemoglobin 11.7 and platelet count reduced to 46,000. Reviewed his chest x-ray, it shows right lung diffuse haziness, left lung prominent left hilum, no pleural effusions. This is concerning for early ARDS. ASSESSMENT AND PLAN: A 62-year-old with multiple comorbidities admitted to Intensive Care Unit with 2-day history of fever, found to be positive for influenza A, progressive hypoxia, resistant to BiPAP, required endotracheal intubation, element of heart failure may be present as well. This was discussed with nursing and Respiratory. I reviewed the additional laboratory data, elevated troponins, so he may be in a process of having a [id number] myocardial infarction, and latest clinical data shows pH of 7.35, PCO2 of 33 and PO2 of 69 on 60% FiO2. Current WBC is 11.9 and platelet count is 23,000. The patient's condition is extremely critical. He is getting the right antibiotic, Tamiflu and ventilatory support. Will follow closely. Elkin Rai MD MTDD
[2018-07-05] MEDS ORDERED: Heparin25000 units/250ml 1/2NS 25,000 UNITS/250 ML BAG IV SCH (00:49)
[2018-07-05] MEDS ORDERED: Heparin 25,000units in 1/2NS 250 ML BAG IV SCH (01:00)
[2018-07-05 05:39] LABS: GRAN # 6.53 (1.4-6.5); GRAN % 95.4 % (50.0-68.0); HEMOGLOBIN 9.1 g/dL (14.0-18.0); LYMPH # 0.1 (1.2-3.4); MEAN CELL VOLUME 84.2 fl (80.0-105.0); MEAN CORPUSCULAR HEMOGLOBIN 26.1 pg (25.0-35.0); MEAN CORPUSCULAR HGB CONC 31.1 g/dl (31.0-37.0); MONO # 0.3 (0.1-0.6); MONO % 3.6 % (1.0-6.0); RBC 3.48 10^6/uL (3.5-6.1); RED CELL DISTRIBUTION WIDTH 17.1 % (11.5-14.5); WHITE BLOOD COUNT 6.9 10^3/uL (4.5-11.0)
[2018-07-05 05:44] LABS: ARTERIAL BLOOD GAS HCO3 21.3 mmol/L (21-28); ARTERIAL BLOOD GAS HEMOGLOBIN 10.1 g/dL (11.7-17.4); ARTERIAL BLOOD GAS O2 CAPACITY 14.1 mL/dl (16-24); ARTERIAL BLOOD GAS O2 CONTENT 13.9 ML/dl (15-23); ARTERIAL BLOOD GAS O2 SAT 98.6 % (95-98); ARTERIAL BLOOD GAS PCO2 36 mm/Hg (35-45); ARTERIAL BLOOD GAS PH 7.38 (7.35-7.45); ARTERIAL BLOOD GAS TCO2 22.4 mmol.L (22-28)
[2018-07-05 06:01] LABS: ALB/GLOB RATIO 1.1 (1.1-1.8); ALBUMIN 3.2 g/dL (3.0-4.8); CALCIUM 7.9 mg/dL (8.4-10.5)
[2018-07-05 06:17] LABS: PLATELET COUNT 17 10^3/uL (120.0-450.0)
[2018-07-05 06:54] LABS: INR 1.31; PROTHROMBIN TIME 15.2 SECONDS (9.4-12.5)
[2018-07-05] MEDS: Fentanyl 1000mcg/100ml NS 1,000 MCG/100 ML BAG IV PRN (07:04)
[2018-07-05] MEDS: Propofol 10 mg/ml 1,000 MG/100 ML VIAL IV PRN ×5 (07:05→22:06)
--- NOTE | 2018-07-05 07:19 | CP.CCUPN ---
<Ismael Turner - Last Filed: 07/05/18 12:39> CCU Subjective - Physician Review Subjective (Free Text): Ismael Turner PGY-1 Progress Note for ICU Patient seen and evaluated at bedside. No acute events overnight. Tmax was 101.1 overnight. Currently sedated on Propofol and Fentanyl drips. Further ROS was unobtainable at this time due to clinical condition. CCU Objective - Vital Signs / Intake & Output Intake and Output (Last 8hrs): Intake & Output 07/04/18 07/04/18 07/05/18 14:59 22:59 06:59 Intake Total 120 1104 Output Total 850 Balance 120 254 Weight 97.522 kg Intake: IV 120 1044 ATB 150 Fentanyl 60 dobutamine 172 heparin 102 propofol 264 Tube Feeding 60 Output: Urine 850 Urethral (Ash) 850 Other: # Bowel Movements 0 - Physical Exam Head: Positive for: Atraumatic, Normocephalic Pupils: Positive for: PERRL Extroacular Muscles: Positive for: EOMI Conjunctiva: Positive for: Normal Pharnyx: Positive for: Other (Intubated, currently at 60/5/16/450) Respiratory/Chest: Positive for: Wheezes (mild expiratory wheeze noted to anterior field), Decreased Breath Sounds, Tachypneic, Other (labored breathing; able to speak in short sentences ). Negative for: Respiratory Distress Cardiovascular: Positive for: Regular Rate and Rhythm, Normal S1, S2. Negative for: Murmurs Abdomen: Positive for: Distention. Negative for: Tenderness, Peritoneal Signs Back: Positive for: Normal Inspection Upper Extremity: Positive for: Normal Inspection. Negative for: Cyanosis, Edema Lower Extremity: Positive for: Edema (2+ pitting edema noted to right lower extremity; chronic diabetic ulcer noted to anterior anderson of left lower extremity ) Neurological: Positive for: Other (unable to be assessed 2/2 sedation) Skin: Positive for: Warm, Dry, Normal Color. Negative for: Rashes Psychiatric: Positive for: Alert, Oriented x 3, Normal Insight, Normal Concentration - Medications Active Medications: Active Medications Generic Name Dose Route Start Last Admin Trade Name Freq PRN Reason Stop Dose Admin Albuterol/Ipratropium 3 ml 07/03/18 14:00 07/04/18 19:39 Duoneb 3 Mg/0.5 Mg (3 Ml) Ud IH 3 ml [id number] SEEMA Administration Albuterol/Ipratropium 3 ml 07/03/18 11:04 Duoneb 3 Mg/0.5 Mg (3 Ml) Ud IH Q2H PRN Shortness of Breath Meropenem/Sodium Chloride 500 mg in 50 mls @ 100 mls/hr 07/03/18 14:15 07/04/18 21:48 Merrem Iv 500 Mg/Ns 50 Ml IVPB 07/10/18 14:16 100 mls/hr Q12 SEEMA Administration Protocol Levofloxacin/Dextrose 500 mg in 100 mls @ 100 mls/hr 07/04/18 07:00 07/04/18 06:29 Levaquin 500mg IVPB 100 mls/hr Q48H SEEMA Administration Protocol Propofol 1,000 mg in 100 mls @ 2.79 mls/hr 07/03/18 16:11 07/04/18 21:54 Diprivan IV 40 mcg/kg/min .Q24H PRN 22.317 mls/hr TITRATE PER MD ORDER Administration Protocol 5 MCG/KG/MIN Fentanyl Citrate 1,000 mcg in 100 mls @ 10 mls/hr 07/03/18 16:44 07/04/18 13:59 Fentanyl Citrate/Sodium Chloride 1 Mg/100 Ml IV 50 mcg/hr .Q10H PRN 5 mls/hr TITRATE PER MD ORDER Administration Protocol 100 MCG/HR Dobutamine HCl/Dextrose 500 mg in 250 mls @ 14.628 mls/hr 07/04/18 10:40 07/04/18 16:50 Dobutamine/Dextrose 5% 500mg/250ml IV 14.628 mls/hr .Q17H6M PRN Administration SYSTOLIC BLOOD PRESSURE 5 MCG/KG/MIN Heparin Sodium/Sodium Chloride 25,000 units in 250 mls @ 7.802 mls/hr 07/05/18 01:00 Heparin 24585 Units/250ml 1/2 Normal Saline IV .Q24H SEEMA Protocol 8 UNITS/KG/HR Insulin Human Regular 0 units 07/03/18 22:00 07/04/18 22:21 Humulin R Med SC Not Given ACHS SEEMA Protocol Methylprednisolone 40 mg 07/03/18 22:00 07/04/18 21:48 Solu-Medrol IVP 40 mg Q12 SEEMA Administration Oseltamivir Phosphate 30 mg 07/04/18 10:00 07/04/18 21:48 Tamiflu Susp PO 30 mg Q12 SEEMA Administration Pantoprazole Sodium 40 mg 07/03/18 14:15 07/04/18 10:04 Protonix Inj IVP 40 mg DAILY SEEMA Administration - Patient Studies Lab Studies: Microbiology Studies 07/03/18 14:00 MRSA Culture (Admit) - Final Naris MRSA NOT DETECTED 07/04/18 02:30 Gram Stain - Final Sputum 07/03/18 09:45 Blood Culture - Preliminary Blood NO GROWTH AFTER 24 HOURS 07/03/18 09:25 Blood Culture - Preliminary Blood NO GROWTH AFTER 24 HOURS Lab Studies 07/05/18 07/05/18 07/05/18 Range/Units 05:00 05:00 05:00 WBC (4.5-11.0) 10^3/uL RBC (3.5-6.1) 10^6/uL Hgb (14.0-18.0) g/dL Hct (42.0-52.0) % MCV (80.0-105.0) fl MCH (25.0-35.0) pg MCHC (31.0-37.0) g/dl RDW (11.5-14.5) % Plt Count (120.0-450.0) 10^3/uL Manual Plt Count (120-450) K/mm3 Gran % (50.0-68.0) % Lymph % (Auto) (22.0-35.0) % [place] % (Auto) (1.0-6.0) % Eos % (Auto) (1.5-5.0) % Baso % (Auto) (0.0-3.0) % Gran # (1.4-6.5) Lymph # (Auto) (1.2-3.4) [place] # (Auto) (0.1-0.6) Eos # (Auto) (0.0-0.7) Baso # (Auto) (0.0-2.0) K/mm3 APTT 70.5 H (25.1-36.5) Seconds pCO2 36 (35-45) mm/Hg pO2 112.0 H (80-100) mm/Hg HCO3 21.3 (21-28) mmol/L ABG pH 7.38 (7.35-7.45) ABG Total CO2 22.4 (22-28) mmol.L ABG O2 Saturation 98.6 H (95-98) % ABG O2 Content 13.9 L (15-23) ML/dl ABG Base Excess -3.4 L (-2.0-3.0) mmol/L ABG Hemoglobin 10.1 L (11.7-17.4) g/dL ABG Carboxyhemoglobin 1.2 (0.5-1.5) % POC ABG HHb (Measured) 1.4 (0-5) % ABG Methemoglobin 1.0 (0.0-3.0) % ABG O2 Capacity 14.1 L (16-24) mL/dl Hgb O2 Saturation 96.4 (95.0-98.0) % FiO2 60.0 % Sodium 140 (132-148) mmol/L Potassium 5.0 (3.6-5.0) mmol/L Chloride 110 H (98-107) mmol/L Carbon Dioxide 23 (21-33) mmol/L Anion Gap 12 (10-20) BUN 86 H (7-21) mg/dL Creatinine 2.1 H (0.8-1.5) mg/dl Est GFR ( Amer) 39 Est GFR (Non-Af Amer) 32 POC Glucose (mg/dL) (65-110) mg/dL Random Glucose 207 H (70-110) mg/dL Calcium 7.9 L (8.4-10.5) mg/dL Total Bilirubin 0.7 (0.2-1.3) mg/dL AST 592 H (17-59) U/L ALT 570 H (7-56) U/L Alkaline Phosphatase 63 (38-126) U/L Total Protein 6.0 (5.8-8.3) g/dL Albumin 3.2 (3.0-4.8) g/dL Globulin 2.8 gm/dL Albumin/Globulin Ratio 1.1 (1.1-1.8) Ur L.pneumophila Ag (NEGATIVE) Blood Type Antibody Screen BBK History Checked 07/05/18 07/04/18 07/04/18 Range/Units 05:00 22:00 19:59 WBC 6.9 D (4.5-11.0) 10^3/uL RBC 3.48 L (3.5-6.1) 10^6/uL Hgb 9.1 L (14.0-18.0) g/dL Hct 29.3 L (42.0-52.0) % MCV 84.2 (80.0-105.0) fl MCH 26.1 (25.0-35.0) pg MCHC 31.1 (31.0-37.0) g/dl RDW 17.1 H (11.5-14.5) % Plt Count 17 L* (120.0-450.0) 10^3/uL Manual Plt Count (120-450) K/mm3 Gran % 95.4 H (50.0-68.0) % Lymph % (Auto) 1.0 L (22.0-35.0) % [place] % (Auto) 3.6 (1.0-6.0) % Eos % (Auto) 0.0 L (1.5-5.0) % Baso % (Auto) 0.0 (0.0-3.0) % Gran # 6.53 H (1.4-6.5) Lymph # (Auto) 0.1 L (1.2-3.4) [place] # (Auto) 0.3 (0.1-0.6) Eos # (Auto) 0.0 (0.0-0.7) Baso # (Auto) 0.00 (0.0-2.0) K/mm3 APTT 82.4 H (25.1-36.5) Seconds pCO2 (35-45) mm/Hg pO2 (80-100) mm/Hg HCO3 (21-28) mmol/L ABG pH (7.35-7.45) ABG Total CO2 (22-28) mmol.L ABG O2 Saturation (95-98) % ABG O2 Content (15-23) ML/dl ABG Base Excess (-2.0-3.0) mmol/L ABG Hemoglobin (11.7-17.4) g/dL ABG Carboxyhemoglobin (0.5-1.5) % POC ABG HHb (Measured) (0-5) % ABG Methemoglobin (0.0-3.0) % ABG O2 Capacity (16-24) mL/dl Hgb O2 Saturation (95.0-98.0) % FiO2 % Sodium (132-148) mmol/L Potassium (3.6-5.0) mmol/L Chloride (98-107) mmol/L Carbon Dioxide (21-33) mmol/L Anion Gap (10-20) BUN (7-21) mg/dL Creatinine (0.8-1.5) mg/dl Est GFR ( Amer) Est GFR (Non-Af Amer) POC Glucose (mg/dL) 158 H (65-110) mg/dL Random Glucose (70-110) mg/dL Calcium (8.4-10.5) mg/dL Total Bilirubin (0.2-1.3) mg/dL AST (17-59) U/L ALT (7-56) U/L Alkaline Phosphatase (38-126) U/L Total Protein (5.8-8.3) g/dL Albumin (3.0-4.8) g/dL Globulin gm/dL Albumin/Globulin Ratio (1.1-1.8) Ur L.pneumophila Ag (NEGATIVE) Blood Type Antibody Screen BBK History Checked 07/04/18 07/04/18 07/04/18 Range/Units 16:16 12:00 12:00 WBC (4.5-11.0) 10^3/uL RBC (3.5-6.1) 10^6/uL Hgb (14.0-18.0) g/dL Hct (42.0-52.0) % MCV (80.0-105.0) fl MCH (25.0-35.0) pg MCHC (31.0-37.0) g/dl RDW (11.5-14.5) % Plt Count (120.0-450.0) 10^3/uL Manual Plt Count (120-450) K/mm3 Gran % (50.0-68.0) % Lymph % (Auto) (22.0-35.0) % [place] % (Auto) (1.0-6.0) % Eos % (Auto) (1.5-5.0) % Baso % (Auto) (0.0-3.0) % Gran # (1.4-6.5) Lymph # (Auto) (1.2-3.4) [place] # (Auto) (0.1-0.6) Eos # (Auto) (0.0-0.7) Baso # (Auto) (0.0-2.0) K/mm3 APTT 77.2 H (25.1-36.5) Seconds pCO2 (35-45) mm/Hg pO2 (80-100) mm/Hg HCO3 (21-28) mmol/L ABG pH (7.35-7.45) ABG Total CO2 (22-28) mmol.L ABG O2 Saturation (95-98) % ABG O2 Content (15-23) ML/dl ABG Base Excess (-2.0-3.0) mmol/L ABG Hemoglobin (11.7-17.4) g/dL ABG Carboxyhemoglobin (0.5-1.5) % POC ABG HHb (Measured) (0-5) % ABG Methemoglobin (0.0-3.0) % ABG O2 Capacity (16-24) mL/dl Hgb O2 Saturation (95.0-98.0) % FiO2 % Sodium (132-148) mmol/L Potassium (3.6-5.0) mmol/L Chloride (98-107) mmol/L Carbon Dioxide (21-33) mmol/L Anion Gap (10-20) BUN (7-21) mg/dL Creatinine (0.8-1.5) mg/dl Est GFR ( Amer) Est GFR (Non-Af Amer) POC Glucose (mg/dL) 170 H (65-110) mg/dL Random Glucose (70-110) mg/dL Calcium (8.4-10.5) mg/dL Total Bilirubin (0.2-1.3) mg/dL AST (17-59) U/L ALT (7-56) U/L Alkaline Phosphatase (38-126) U/L Total Protein (5.8-8.3) g/dL Albumin (3.0-4.8) g/dL Globulin gm/dL Albumin/Globulin Ratio (1.1-1.8) Ur L.pneumophila Ag (NEGATIVE) Blood Type O POSITIVE Antibody Screen Negative BBK History Checked Patient has bt 07/04/18 07/04/18 07/04/18 Range/Units 11:07 07:17 06:50 WBC (4.5-11.0) 10^3/uL RBC (3.5-6.1) 10^6/uL Hgb (14.0-18.0) g/dL Hct (42.0-52.0) % MCV (80.0-105.0) fl MCH (25.0-35.0) pg MCHC (31.0-37.0) g/dl RDW (11.5-14.5) % Plt Count (120.0-450.0) 10^3/uL Manual Plt Count (120-450) K/mm3 Gran % (50.0-68.0) % Lymph % (Auto) (22.0-35.0) % [place] % (Auto) (1.0-6.0) % Eos % (Auto) (1.5-5.0) % Baso % (Auto) (0.0-3.0) % Gran # (1.4-6.5) Lymph # (Auto) (1.2-3.4) [place] # (Auto) (0.1-0.6) Eos # (Auto) (0.0-0.7) Baso # (Auto) (0.0-2.0) K/mm3 APTT (25.1-36.5) Seconds pCO2 33 L (35-45) mm/Hg pO2 69.0 L (80-100) mm/Hg HCO3 18.2 L (21-28) mmol/L ABG pH 7.35 (7.35-7.45) ABG Total CO2 19.2 L (22-28) mmol.L ABG O2 Saturation 95.4 (95-98) % ABG O2 Content 13.0 L (15-23) ML/dl ABG Base Excess -6.6 L (-2.0-3.0) mmol/L ABG Hemoglobin 9.8 L (11.7-17.4) g/dL ABG Carboxyhemoglobin 1.3 (0.5-1.5) % POC ABG HHb (Measured) 4.5 (0-5) % ABG Methemoglobin 0.3 (0.0-3.0) % ABG O2 Capacity 13.6 L (16-24) mL/dl Hgb O2 Saturation 93.9 L (95.0-98.0) % FiO2 60.0 % Sodium (132-148) mmol/L Potassium (3.6-5.0) mmol/L Chloride (98-107) mmol/L Carbon Dioxide (21-33) mmol/L Anion Gap (10-20) BUN (7-21) mg/dL Creatinine (0.8-1.5) mg/dl Est GFR ( Amer) Est GFR (Non-Af Amer) POC Glucose (mg/dL) 170 H 209 H (65-110) mg/dL Random Glucose (70-110) mg/dL Calcium (8.4-10.5) mg/dL Total Bilirubin (0.2-1.3) mg/dL AST (17-59) U/L ALT (7-56) U/L Alkaline Phosphatase (38-126) U/L Total Protein (5.8-8.3) g/dL Albumin (3.0-4.8) g/dL Globulin gm/dL Albumin/Globulin Ratio (1.1-1.8) Ur L.pneumophila Ag (NEGATIVE) Blood Type Antibody Screen BBK History Checked 07/04/18 07/03/18 Range/Units 05:00 20:10 WBC (4.5-11.0) 10^3/uL RBC (3.5-6.1) 10^6/uL Hgb (14.0-18.0) g/dL Hct (42.0-52.0) % MCV (80.0-105.0) fl MCH (25.0-35.0) pg MCHC (31.0-37.0) g/dl RDW (11.5-14.5) % Plt Count (120.0-450.0) 10^3/uL Manual Plt Count 42 L* (120-450) K/mm3 Gran % (50.0-68.0) % Lymph % (Auto) (22.0-35.0) % [place] % (Auto) (1.0-6.0) % Eos % (Auto) (1.5-5.0) % Baso % (Auto) (0.0-3.0) % Gran # (1.4-6.5) Lymph # (Auto) (1.2-3.4) [place] # (Auto) (0.1-0.6) Eos # (Auto) (0.0-0.7) Baso # (Auto) (0.0-2.0) K/mm3 APTT (25.1-36.5) Seconds pCO2 (35-45) mm/Hg pO2 (80-100) mm/Hg HCO3 (21-28) mmol/L ABG pH (7.35-7.45) ABG Total CO2 (22-28) mmol.L ABG O2 Saturation (95-98) % ABG O2 Content (15-23) ML/dl ABG Base Excess (-2.0-3.0) mmol/L ABG Hemoglobin (11.7-17.4) g/dL ABG Carboxyhemoglobin (0.5-1.5) % POC ABG HHb (Measured) (0-5) % ABG Methemoglobin (0.0-3.0) % ABG O2 Capacity (16-24) mL/dl Hgb O2 Saturation (95.0-98.0) % FiO2 % Sodium (132-148) mmol/L Potassium (3.6-5.0) mmol/L Chloride (98-107) mmol/L Carbon Dioxide (21-33) mmol/L Anion Gap (10-20) BUN (7-21) mg/dL Creatinine (0.8-1.5) mg/dl Est GFR ( Amer) Est GFR (Non-Af Amer) POC Glucose (mg/dL) (65-110) mg/dL Random Glucose (70-110) mg/dL Calcium (8.4-10.5) mg/dL Total Bilirubin (0.2-1.3) mg/dL AST (17-59) U/L ALT (7-56) U/L Alkaline Phosphatase (38-126) U/L Total Protein (5.8-8.3) g/dL Albumin (3.0-4.8) g/dL Globulin gm/dL Albumin/Globulin Ratio (1.1-1.8) Ur L.pneumophila Ag Negative (NEGATIVE) Blood Type Antibody Screen BBK History Checked Laboratory Results - last 24 hr 07/03/18 07/04/18 07/04/18 20:10 05:00 06:50 WBC RBC Hgb Hct MCV MCH MCHC RDW Plt Count Manual Plt Count 42 L* Gran % Lymph % (Auto) [place] % (Auto) Eos % (Auto) Baso % (Auto) Gran # Lymph # (Auto) [place] # (Auto) Eos # (Auto) Baso # (Auto) APTT pCO2 33 L pO2 69.0 L HCO3 18.2 L ABG pH 7.35 ABG Total CO2 19.2 L ABG O2 Saturation 95.4 ABG O2 Content 13.0 L ABG Base Excess -6.6 L ABG Hemoglobin 9.8 L ABG Carboxyhemoglobin 1.3 POC ABG HHb (Measured) 4.5 ABG Methemoglobin 0.3 ABG O2 Capacity 13.6 L Hgb O2 Saturation 93.9 L FiO2 60.0 Sodium Potassium Chloride Carbon Dioxide Anion Gap BUN Creatinine Est GFR ( Amer) Est GFR (Non-Af Amer) POC Glucose (mg/dL) Random Glucose Calcium Total Bilirubin AST ALT Alkaline Phosphatase Total Protein Albumin Globulin Albumin/Globulin Ratio Ur L.pneumophila Ag Negative Blood Type Antibody Screen BBK History Checked 07/04/18 07/04/18 07/04/18 07:17 11:07 12:00 WBC RBC Hgb Hct MCV MCH MCHC RDW Plt Count Manual Plt Count Gran % Lymph % (Auto) [place] % (Auto) Eos % (Auto) Baso % (Auto) Gran # Lymph # (Auto) [place] # (Auto) Eos # (Auto) Baso # (Auto) APTT pCO2 pO2 HCO3 ABG pH ABG Total CO2 ABG O2 Saturation ABG O2 Content ABG Base Excess ABG Hemoglobin ABG Carboxyhemoglobin POC ABG HHb (Measured) ABG Methemoglobin ABG O2 Capacity Hgb O2 Saturation FiO2 Sodium Potassium Chloride Carbon Dioxide Anion Gap BUN Creatinine Est GFR ( Amer) Est GFR (Non-Af Amer) POC Glucose (mg/dL) 209 H 170 H Random Glucose Calcium Total Bilirubin AST ALT Alkaline Phosphatase Total Protein Albumin Globulin Albumin/Globulin Ratio Ur L.pneumophila Ag Blood Type O POSITIVE Antibody Screen Negative BBK History Checked Patient has bt 07/04/18 07/04/18 07/04/18 12:00 16:16 19:59 WBC RBC Hgb Hct MCV MCH MCHC RDW Plt Count Manual Plt Count Gran % Lymph % (Auto) [place] % (Auto) Eos % (Auto) Baso % (Auto) Gran # Lymph # (Auto) [place] # (Auto) Eos # (Auto) Baso # (Auto) APTT 77.2 H 82.4 H pCO2 pO2 HCO3 ABG pH ABG Total CO2 ABG O2 Saturation ABG O2 Content ABG Base Excess ABG Hemoglobin ABG Carboxyhemoglobin POC ABG HHb (Measured) ABG Methemoglobin ABG O2 Capacity Hgb O2 Saturation FiO2 Sodium Potassium Chloride Carbon Dioxide Anion Gap BUN Creatinine Est GFR ( Amer) Est GFR (Non-Af Amer) POC Glucose (mg/dL) 170 H Random Glucose Calcium Total Bilirubin AST ALT Alkaline Phosphatase Total Protein Albumin Globulin Albumin/Globulin Ratio Ur L.pneumophila Ag Blood Type Antibody Screen BBK History Checked 07/04/18 07/05/18 07/05/18 22:00 05:00 05:00 WBC 6.9 D RBC 3.48 L Hgb 9.1 L Hct 29.3 L MCV 84.2 MCH 26.1 MCHC 31.1 RDW 17.1 H Plt Count 17 L* Manual Plt Count Gran % 95.4 H Lymph % (Auto) 1.0 L [place] % (Auto) 3.6 Eos % (Auto) 0.0 L Baso % (Auto) 0.0 Gran # 6.53 H Lymph # (Auto) 0.1 L [place] # (Auto) 0.3 Eos # (Auto) 0.0 Baso # (Auto) 0.00 APTT pCO2 pO2 HCO3 ABG pH ABG Total CO2 ABG O2 Saturation ABG O2 Content ABG Base Excess ABG Hemoglobin ABG Carboxyhemoglobin POC ABG HHb (Measured) ABG Methemoglobin ABG O2 Capacity Hgb O2 Saturation FiO2 Sodium 140 Potassium 5.0 Chloride 110 H Carbon Dioxide 23 Anion Gap 12 BUN 86 H Creatinine 2.1 H Est GFR ( Amer) 39 Est GFR (Non-Af Amer) 32 POC Glucose (mg/dL) 158 H Random Glucose 207 H Calcium 7.9 L Total Bilirubin 0.7 AST 592 H ALT 570 H Alkaline Phosphatase 63 Total Protein 6.0 Albumin 3.2 Globulin 2.8 Albumin/Globulin Ratio 1.1 Ur L.pneumophila Ag Blood Type Antibody Screen BBK History Checked 07/05/18 07/05/18 05:00 05:00 WBC RBC Hgb Hct MCV MCH MCHC RDW Plt Count Manual Plt Count Gran % Lymph % (Auto) [place] % (Auto) Eos % (Auto) Baso % (Auto) Gran # Lymph # (Auto) [place] # (Auto) Eos # (Auto) Baso # (Auto) APTT 70.5 H pCO2 36 pO2 112.0 H HCO3 21.3 ABG pH 7.38 ABG Total CO2 22.4 ABG O2 Saturation 98.6 H ABG O2 Content 13.9 L ABG Base Excess -3.4 L ABG Hemoglobin 10.1 L ABG Carboxyhemoglobin 1.2 POC ABG HHb (Measured) 1.4 ABG Methemoglobin 1.0 ABG O2 Capacity 14.1 L Hgb O2 Saturation 96.4 FiO2 60.0 Sodium Potassium Chloride Carbon Dioxide Anion Gap BUN Creatinine Est GFR ( Amer) Est GFR (Non-Af Amer) POC Glucose (mg/dL) Random Glucose Calcium Total Bilirubin AST ALT Alkaline Phosphatase Total Protein Albumin Globulin Albumin/Globulin Ratio Ur L.pneumophila Ag Blood Type Antibody Screen BBK History Checked Radiology Impressions: Radiology Impressions Abdomen Ultrasound 07/03/18 14:16 IMPRESSION: Hepatosplenomegaly with hepatic steatosis. Small volume hepatic dome ascites. Stable appearance of left lower pole septated renal cyst. Chest X-Ray 07/04/18 06:00 IMPRESSION: New enteric tube in satisfactory position. Stable pulmonary parenchymal infiltrates primarily affecting the right lung. Fingerstick Blood Sugar Results: 150 Review of Systems - Review of Systems Systems not reviewed;Unavailable: Intubated Review of Systems: 12 point ROS unable to be ascertained due to clinical condition Critical Care Progress Note - Extremities/Vascular Does the Patient have a Ash Catheter?: Yes Does the Patient need a Ash Catheter?: Yes - Nutrition Nutrition: Nutrition Category Date Time Status Heart Healthy Diet [DIET] Diets 07/03/18 Dinner Active Assessment/Plan - Assessment and Plan (Free Text) Assessment: 62yo male with PMHx of COPD, active smoker 1pk per day, HTN, DM, PVD, presents with ER with 2 day history of fever, chills, associated with cough that is non- productive. Yesterday, patient also developed SOB. Pt denies sick contacts, recent travel, CP, palpitations, CARTY, dizziness. In the ER, patient was noted to be hypoxic at 78%, on 2L NC, subsequently placed on BIPAP. No other constitutional symptoms. Pt was found to have increased work of breathing, RR 35-40, subsequently intubated. Placed on low tidal vol. ventilation. Patient was started on heparin drip given elevated troponin, and markedly diminished EF. Hep drip currently held secondary to thrombocytopenia. Neuro: - AAOx0, on sedation - continue to monitor Pulm CAP and Flu A + 07/03/18 CXR: Stable pulm parenchymal infiltrates affecting R lung. Satisfactory position of endotracheal tube 07/03/18 CT chest: extensive alveolar infiltrate throughout R lung, consistent with PNA 07/04/18 CXR shows stable pulm parenchymal infiltrates, R>L. 07/03/18 ABG shows non anion gap metabolic acidosis 07/04/18 ABG shows metabolic acidosis 07/05/18 ABG shows improved metabolic acidosis - duonebs seema q6 and PRN q2 - Continue Solumedrol 40mg IV BID - Tamiflu renally dosed BID - Abx: Levaquin 500 q48hr and Merrem 500 BID for possible secondary bacterial infection - check Urine Lg, Strep - Procal 4.85 - ID eval: Dr. Dom burrows appreciated - Pulm consulted - markos Lance appreciated - Resp therapy Cardio HFrEF - BNP 32661, although CXR only shows one sided infilatrate - 07/03/18 echo report shows EF 14.2%, mildly dilated LV, systolic function severely impaired, akinetic septum, moderate TR and pulm HTN NSTEMI - Trop 0.48, 0.67, 0.67 - Cardiology consulted - Dr. Saxena. Will consider cardiac cath Friday07/06/18 if infection improves in light of TORIN - Hold IVF d/t poor EF. - Increase Dobutamine drip to 5 mcg for pressure support - Hold Heparin drip Chronic Thrombocytopenia - has received frequent intermittent transfusions as outpatient per medical record - 17 this AM, manual count 20. F/U HIT Antibody - Hem consult placed- Dr. Zenaida burrows appreciated Normocytic Anemia - Hgb 9.1 this AM, drop from yesterday, no obvious sign of bleed, f/u FOBT GI - NGT in place Uncontrolled DM - Hgb a1c 8.2, accuchecks ACHS - Diabetic education Lipid panel - TG elevated at 172 Shock liver Transaminitis AST /ALT 307/224 >543/409>592/570, normal Alk Phos. Hold hepatotoxic drugs Hep panel negative - 07/03/18 RUQ U/S shows hepatosplenomegaly PTX for Ppx Nephro - OG improved to 86/2.1, basline Cr 1.0 - 07/03/18 UA shows mild protein and blood - Hyperkalemia improved to 5.0 this AM - Strict Is and Os- 2175, 850 output last 2 days - Ash in place - Nephro consult - Dr. Rodriguez covering for Dr. Sullivan: - ATN in the setting of sepsis and mild hypotension; may have cardiorenal component in the setting of severely depressed biventricular dysfunction; has already received adequate amount of intravascular volume repletion and having good urine output; borderline hyperkalemia noted, otherwise lactic acidosis appears resolved with normal anion gap; -Recommend to keep net even fluid balance as we need to balance between sepsis and concern for CHF; no need for IVF or diuretics at this time; -can give kayexalate (if no GI contraindication; otherwise, forced diuresis with IVF and diuretics is an option); - f/u urine lytes MSK - Wound care consulted - Podiatry consulted- Dr. Isauro burrows appreciated - OT/PT eval ID - Fevers Tmax 101., Resolved Leukocytosis 6.9 - Rapid influenza A positive > Tamiflu renally dosed at 30 mg BID - ID eval: Dr. Dom burrows appreciated - Amikacin given overnight - GI ppx: PTX - DVT ppx: Hep drip held in light of thrombocytopenia and anemia Patient seen, case reviewed and plan approved by Dr. Ab Mitchell. Ismael Turner, PGY-1 <Junior Mitchell - Last Filed: 07/05/18 17:22> CCU Objective - Vital Signs / Intake & Output Vital Signs (Last 4 hours): Vital Signs Temp Pulse BP Pulse Ox 07/05/18 14:00 98.6 F 93 H 118/56 L 100 07/05/18 13:30 98.8 F 91 H 106/57 L 99 Intake and Output (Last 8hrs): Intake & Output 07/05/18 07/05/18 07/05/18 06:59 14:59 22:59 Intake Total 908 300 Output Total 1200 Balance -292 300 Weight 97.522 kg Intake: IV 848 300 ATB 150 Fentanyl 60 dobutamine 172 heparin 102 propofol 264 Tube Feeding 60 Output: Urine 1200 Urethral (Ash) 1200 Other: # Bowel Movements 0 - Medications Active Medications: Active Medications Generic Name Dose Route Start Last Admin Trade Name Freq PRN Reason Stop Dose Admin Albuterol/Ipratropium 3 ml 07/03/18 14:00 07/05/18 14:22 Duoneb 3 Mg/0.5 Mg (3 Ml) Ud IH 3 ml [id number] SEEMA Administration Albuterol/Ipratropium 3 ml 07/03/18 11:04 Duoneb 3 Mg/0.5 Mg (3 Ml) Ud IH Q2H PRN Shortness of Breath Meropenem/Sodium Chloride 500 mg in 50 mls @ 100 mls/hr 07/03/18 14:15 07/05/18 08:59 Merrem Iv 500 Mg/Ns 50 Ml IVPB 07/10/18 14:16 100 mls/hr Q12 SEEMA Administration Protocol Levofloxacin/Dextrose 500 mg in 100 mls @ 100 mls/hr 07/04/18 07:00 07/04/18 06:29 Levaquin 500mg IVPB 100 mls/hr Q48H SEEMA Administration Protocol Propofol 1,000 mg in 100 mls @ 2.79 mls/hr 07/03/18 16:11 07/05/18 12:55 Diprivan IV 40 mcg/kg/min .Q24H PRN 22.317 mls/hr TITRATE PER MD ORDER Administration Protocol 5 MCG/KG/MIN Fentanyl Citrate 1,000 mcg in 100 mls @ 10 mls/hr 07/03/18 16:44 07/05/18 07:04 Fentanyl Citrate/Sodium Chloride 1 Mg/100 Ml IV 50 mcg/hr .Q10H PRN 5 mls/hr TITRATE PER MD ORDER Administration Protocol 100 MCG/HR Dobutamine HCl/Dextrose 500 mg in 250 mls @ 14.628 mls/hr 07/04/18 10:40 07/05/18 12:02 Dobutamine/Dextrose 5% 500mg/250ml IV 14.628 mls/hr .Q17H6M PRN Administration SYSTOLIC BLOOD PRESSURE 5 MCG/KG/MIN Heparin Sodium/Sodium Chloride 25,000 units in 250 mls @ 7.802 mls/hr 07/05/18 01:00 07/05/18 08:58 Heparin 26677 Units/250ml 1/2 Normal Saline IV Not Given .Q24H SEEMA Protocol 8 UNITS/KG/HR Insulin Human Regular 0 units 07/03/18 22:00 07/05/18 12:01 Humulin R Med SC 3 units ACHS SEEMA Administration Protocol Methylprednisolone 40 mg 07/03/18 22:00 07/05/18 09:00 Solu-Medrol IVP 40 mg Q12 SEEMA Administration Oseltamivir Phosphate 30 mg 07/04/18 10:00 07/05/18 09:11 Tamiflu Susp PO 30 mg Q12 SEEMA Administration Pantoprazole Sodium 40 mg 07/03/18 14:15 07/05/18 09:00 Protonix Inj IVP 40 mg DAILY SEEMA Administration - Patient Studies Lab Studies: Microbiology Studies 07/03/18 09:45 Blood Culture - Preliminary Blood NO GROWTH AFTER 48 HOURS 07/03/18 09:25 Blood Culture - Preliminary Blood NO GROWTH AFTER 48 HOURS 07/04/18 02:30 Gram Stain - Final Sputum 07/03/18 20:10 Urine Culture - Final Urine,Ash No Growth (<1,000 CFU/ML) 07/03/18 14:00 MRSA Culture (Admit) - Final Naris MRSA NOT DETECTED Lab Studies 07/05/18 07/05/18 07/05/18 Range/Units 16:48 11:47 11:30 WBC (4.5-11.0) 10^3/uL RBC (3.5-6.1) 10^6/uL Hgb (14.0-18.0) g/dL Hct (42.0-52.0) % MCV (80.0-105.0) fl MCH (25.0-35.0) pg MCHC (31.0-37.0) g/dl RDW (11.5-14.5) % Plt Count (120.0-450.0) 10^3/uL Manual Plt Count 21 L* (120-450) K/mm3 Gran % (50.0-68.0) % Lymph % (Auto) (22.0-35.0) % [place] % (Auto) (1.0-6.0) % Eos % (Auto) (1.5-5.0) % Baso % (Auto) (0.0-3.0) % Gran # (1.4-6.5) Lymph # (Auto) (1.2-3.4) [place] # (Auto) (0.1-0.6) Eos # (Auto) (0.0-0.7) Baso # (Auto) (0.0-2.0) K/mm3 Platelet Evaluation (NORMAL) PT (9.4-12.5) SECONDS INR APTT (25.1-36.5) Seconds pCO2 (35-45) mm/Hg pO2 (80-100) mm/Hg HCO3 (21-28) mmol/L ABG pH (7.35-7.45) ABG Total CO2 (22-28) mmol.L ABG O2 Saturation (95-98) % ABG O2 Content (15-23) ML/dl ABG Base Excess (-2.0-3.0) mmol/L ABG Hemoglobin (11.7-17.4) g/dL ABG Carboxyhemoglobin (0.5-1.5) % POC ABG HHb (Measured) (0-5) % ABG Methemoglobin (0.0-3.0) % ABG O2 Capacity (16-24) mL/dl Hgb O2 Saturation (95.0-98.0) % FiO2 % Sodium (132-148) mmol/L Potassium (3.6-5.0) mmol/L Chloride (98-107) mmol/L Carbon Dioxide (21-33) mmol/L Anion Gap (10-20) BUN (7-21) mg/dL Creatinine (0.8-1.5) mg/dl Est GFR ( Amer) Est GFR (Non-Af Amer) POC Glucose (mg/dL) 223 H 202 H (65-110) mg/dL Random Glucose (70-110) mg/dL Calcium (8.4-10.5) mg/dL Total Bilirubin (0.2-1.3) mg/dL AST (17-59) U/L ALT (7-56) U/L Alkaline Phosphatase (38-126) U/L Total Protein (5.8-8.3) g/dL Albumin (3.0-4.8) g/dL Globulin gm/dL Albumin/Globulin Ratio (1.1-1.8) Ur Random Creatinine mg/dL Ur Random Sodium meq/L 07/05/18 07/05/18 07/05/18 Range/Units 11:20 11:10 08:21 WBC 7.1 (4.5-11.0) 10^3/uL RBC 3.48 L (3.5-6.1) 10^6/uL Hgb 9.3 L (14.0-18.0) g/dL Hct 29.6 L (42.0-52.0) % MCV 85.1 (80.0-105.0) fl MCH 26.7 (25.0-35.0) pg MCHC 31.4 (31.0-37.0) g/dl RDW 17.1 H (11.5-14.5) % Plt Count 15 L* (120.0-450.0) 10^3/uL Manual Plt Count (120-450) K/mm3 Gran % 94.0 H (50.0-68.0) % Lymph % (Auto) 3.2 L (22.0-35.0) % [place] % (Auto) 2.8 (1.0-6.0) % Eos % (Auto) 0.0 L (1.5-5.0) % Baso % (Auto) 0.0 (0.0-3.0) % Gran # 6.67 H (1.4-6.5) Lymph # (Auto) 0.2 L (1.2-3.4) [place] # (Auto) 0.2 (0.1-0.6) Eos # (Auto) 0.0 (0.0-0.7) Baso # (Auto) 0.00 (0.0-2.0) K/mm3 Platelet Evaluation Low (NORMAL) PT (9.4-12.5) SECONDS INR APTT (25.1-36.5) Seconds pCO2 (35-45) mm/Hg pO2 (80-100) mm/Hg HCO3 (21-28) mmol/L ABG pH (7.35-7.45) ABG Total CO2 (22-28) mmol.L ABG O2 Saturation (95-98) % ABG O2 Content (15-23) ML/dl ABG Base Excess (-2.0-3.0) mmol/L ABG Hemoglobin (11.7-17.4) g/dL ABG Carboxyhemoglobin (0.5-1.5) % POC ABG HHb (Measured) (0-5) % ABG Methemoglobin (0.0-3.0) % ABG O2 Capacity (16-24) mL/dl Hgb O2 Saturation (95.0-98.0) % FiO2 % Sodium (132-148) mmol/L Potassium (3.6-5.0) mmol/L Chloride (98-107) mmol/L Carbon Dioxide (21-33) mmol/L Anion Gap (10-20) BUN (7-21) mg/dL Creatinine (0.8-1.5) mg/dl Est GFR ( Amer) Est GFR (Non-Af Amer) POC Glucose (mg/dL) 200 H (65-110) mg/dL Random Glucose (70-110) mg/dL Calcium (8.4-10.5) mg/dL Total Bilirubin (0.2-1.3) mg/dL AST (17-59) U/L ALT (7-56) U/L Alkaline Phosphatase (38-126) U/L Total Protein (5.8-8.3) g/dL Albumin (3.0-4.8) g/dL Globulin gm/dL Albumin/Globulin Ratio (1.1-1.8) Ur Random Creatinine 53 mg/dL Ur Random Sodium 49 meq/L 07/05/18 07/05/18 07/05/18 Range/Units 05:00 05:00 05:00 WBC (4.5-11.0) 10^3/uL RBC (3.5-6.1) 10^6/uL Hgb (14.0-18.0) g/dL Hct (42.0-52.0) % MCV (80.0-105.0) fl MCH (25.0-35.0) pg MCHC (31.0-37.0) g/dl RDW (11.5-14.5) % Plt Count (120.0-450.0) 10^3/uL Manual Plt Count 20 L* (120-450) K/mm3 Gran % (50.0-68.0) % Lymph % (Auto) (22.0-35.0) % [place] % (Auto) (1.0-6.0) % Eos % (Auto) (1.5-5.0) % Baso % (Auto) (0.0-3.0) % Gran # (1.4-6.5) Lymph # (Auto) (1.2-3.4) [place] # (Auto) (0.1-0.6) Eos # (Auto) (0.0-0.7) Baso # (Auto) (0.0-2.0) K/mm3 Platelet Evaluation (NORMAL) PT 15.2 H (9.4-12.5) SECONDS INR 1.31 APTT 70.5 H (25.1-36.5) Seconds pCO2 (35-45) mm/Hg pO2 (80-100) mm/Hg HCO3 (21-28) mmol/L ABG pH (7.35-7.45) ABG Total CO2 (22-28) mmol.L ABG O2 Saturation (95-98) % ABG O2 Content (15-23) ML/dl ABG Base Excess (-2.0-3.0) mmol/L ABG Hemoglobin (11.7-17.4) g/dL ABG Carboxyhemoglobin (0.5-1.5) % POC ABG HHb (Measured) (0-5) % ABG Methemoglobin (0.0-3.0) % ABG O2 Capacity (16-24) mL/dl Hgb O2 Saturation (95.0-98.0) % FiO2 % Sodium (132-148) mmol/L Potassium (3.6-5.0) mmol/L Chloride (98-107) mmol/L Carbon Dioxide (21-33) mmol/L Anion Gap (10-20) BUN (7-21) mg/dL Creatinine (0.8-1.5) mg/dl Est GFR ( Amer) Est GFR (Non-Af Amer) POC Glucose (mg/dL) (65-110) mg/dL Random Glucose (70-110) mg/dL Calcium (8.4-10.5) mg/dL Total Bilirubin (0.2-1.3) mg/dL AST (17-59) U/L ALT (7-56) U/L Alkaline Phosphatase (38-126) U/L Total Protein (5.8-8.3) g/dL Albumin (3.0-4.8) g/dL Globulin gm/dL Albumin/Globulin Ratio (1.1-1.8) Ur Random Creatinine mg/dL Ur Random Sodium meq/L 07/05/18 07/05/18 07/05/18 Range/Units 05:00 05:00 05:00 WBC 6.9 D (4.5-11.0) 10^3/uL RBC 3.48 L (3.5-6.1) 10^6/uL Hgb 9.1 L (14.0-18.0) g/dL Hct 29.3 L (42.0-52.0) % MCV 84.2 (80.0-105.0) fl MCH 26.1 (25.0-35.0) pg MCHC 31.1 (31.0-37.0) g/dl RDW 17.1 H (11.5-14.5) % Plt Count 17 L* (120.0-450.0) 10^3/uL Manual Plt Count (120-450) K/mm3 Gran % 95.4 H (50.0-68.0) % Lymph % (Auto) 1.0 L (22.0-35.0) % [place] % (Auto) 3.6 (1.0-6.0) % Eos % (Auto) 0.0 L (1.5-5.0) % Baso % (Auto) 0.0 (0.0-3.0) % Gran # 6.53 H (1.4-6.5) Lymph # (Auto) 0.1 L (1.2-3.4) [place] # (Auto) 0.3 (0.1-0.6) Eos # (Auto) 0.0 (0.0-0.7) Baso # (Auto) 0.00 (0.0-2.0) K/mm3 Platelet Evaluation Low (NORMAL) PT (9.4-12.5) SECONDS INR APTT (25.1-36.5) Seconds pCO2 36 (35-45) mm/Hg pO2 112.0 H (80-100) mm/Hg HCO3 21.3 (21-28) mmol/L ABG pH 7.38 (7.35-7.45) ABG Total CO2 22.4 (22-28) mmol.L ABG O2 Saturation 98.6 H (95-98) % ABG O2 Content 13.9 L (15-23) ML/dl ABG Base Excess -3.4 L (-2.0-3.0) mmol/L ABG Hemoglobin 10.1 L (11.7-17.4) g/dL ABG Carboxyhemoglobin 1.2 (0.5-1.5) % POC ABG HHb (Measured) 1.4 (0-5) % ABG Methemoglobin 1.0 (0.0-3.0) % ABG O2 Capacity 14.1 L (16-24) mL/dl Hgb O2 Saturation 96.4 (95.0-98.0) % FiO2 60.0 % Sodium 140 (132-148) mmol/L Potassium 5.0 (3.6-5.0) mmol/L Chloride 110 H (98-107) mmol/L Carbon Dioxide 23 (21-33) mmol/L Anion Gap 12 (10-20) BUN 86 H (7-21) mg/dL Creatinine 2.1 H (0.8-1.5) mg/dl Est GFR ( Amer) 39 Est GFR (Non-Af Amer) 32 POC Glucose (mg/dL) (65-110) mg/dL Random Glucose 207 H (70-110) mg/dL Calcium 7.9 L (8.4-10.5) mg/dL Total Bilirubin 0.7 (0.2-1.3) mg/dL AST 592 H (17-59) U/L ALT 570 H (7-56) U/L Alkaline Phosphatase 63 (38-126) U/L Total Protein 6.0 (5.8-8.3) g/dL Albumin 3.2 (3.0-4.8) g/dL Globulin 2.8 gm/dL Albumin/Globulin Ratio 1.1 (1.1-1.8) Ur Random Creatinine mg/dL Ur Random Sodium meq/L 07/04/18 07/04/18 07/04/18 Range/Units 22:00 19:59 16:16 WBC (4.5-11.0) 10^3/uL RBC (3.5-6.1) 10^6/uL Hgb (14.0-18.0) g/dL Hct (42.0-52.0) % MCV (80.0-105.0) fl MCH (25.0-35.0) pg MCHC (31.0-37.0) g/dl RDW (11.5-14.5) % Plt Count (120.0-450.0) 10^3/uL Manual Plt Count (120-450) K/mm3 Gran % (50.0-68.0) % Lymph % (Auto) (22.0-35.0) % [place] % (Auto) (1.0-6.0) % Eos % (Auto) (1.5-5.0) % Baso % (Auto) (0.0-3.0) % Gran # (1.4-6.5) Lymph # (Auto) (1.2-3.4) [place] # (Auto) (0.1-0.6) Eos # (Auto) (0.0-0.7) Baso # (Auto) (0.0-2.0) K/mm3 Platelet Evaluation (NORMAL) PT (9.4-12.5) SECONDS INR APTT 82.4 H (25.1-36.5) Seconds pCO2 (35-45) mm/Hg pO2 (80-100) mm/Hg HCO3 (21-28) mmol/L ABG pH (7.35-7.45) ABG Total CO2 (22-28) mmol.L ABG O2 Saturation (95-98) % ABG O2 Content (15-23) ML/dl ABG Base Excess (-2.0-3.0) mmol/L ABG Hemoglobin (11.7-17.4) g/dL ABG Carboxyhemoglobin (0.5-1.5) % POC ABG HHb (Measured) (0-5) % ABG Methemoglobin (0.0-3.0) % ABG O2 Capacity (16-24) mL/dl Hgb O2 Saturation (95.0-98.0) % FiO2 % Sodium (132-148) mmol/L Potassium (3.6-5.0) mmol/L Chloride (98-107) mmol/L Carbon Dioxide (21-33) mmol/L Anion Gap (10-20) BUN (7-21) mg/dL Creatinine (0.8-1.5) mg/dl Est GFR ( Amer) Est GFR (Non-Af Amer) POC Glucose (mg/dL) 158 H 170 H (65-110) mg/dL Random Glucose (70-110) mg/dL Calcium (8.4-10.5) mg/dL Total Bilirubin (0.2-1.3) mg/dL AST (17-59) U/L ALT (7-56) U/L Alkaline Phosphatase (38-126) U/L Total Protein (5.8-8.3) g/dL Albumin (3.0-4.8) g/dL Globulin gm/dL Albumin/Globulin Ratio (1.1-1.8) Ur Random Creatinine mg/dL Ur Random Sodium meq/L 07/04/18 07/04/18 Range/Units 11:07 07:17 WBC (4.5-11.0) 10^3/uL RBC (3.5-6.1) 10^6/uL Hgb (14.0-18.0) g/dL Hct (42.0-52.0) % MCV (80.0-105.0) fl MCH (25.0-35.0) pg MCHC (31.0-37.0) g/dl RDW (11.5-14.5) % Plt Count (120.0-450.0) 10^3/uL Manual Plt Count (120-450) K/mm3 Gran % (50.0-68.0) % Lymph % (Auto) (22.0-35.0) % [place] % (Auto) (1.0-6.0) % Eos % (Auto) (1.5-5.0) % Baso % (Auto) (0.0-3.0) % Gran # (1.4-6.5) Lymph # (Auto) (1.2-3.4) [place] # (Auto) (0.1-0.6) Eos # (Auto) (0.0-0.7) Baso # (Auto) (0.0-2.0) K/mm3 Platelet Evaluation (NORMAL) PT (9.4-12.5) SECONDS INR APTT (25.1-36.5) Seconds pCO2 (35-45) mm/Hg pO2 (80-100) mm/Hg HCO3 (21-28) mmol/L ABG pH (7.35-7.45) ABG Total CO2 (22-28) mmol.L ABG O2 Saturation (95-98) % ABG O2 Content (15-23) ML/dl ABG Base Excess (-2.0-3.0) mmol/L ABG Hemoglobin (11.7-17.4) g/dL ABG Carboxyhemoglobin (0.5-1.5) % POC ABG HHb (Measured) (0-5) % ABG Methemoglobin (0.0-3.0) % ABG O2 Capacity (16-24) mL/dl Hgb O2 Saturation (95.0-98.0) % FiO2 % Sodium (132-148) mmol/L Potassium (3.6-5.0) mmol/L Chloride (98-107) mmol/L Carbon Dioxide (21-33) mmol/L Anion Gap (10-20) BUN (7-21) mg/dL Creatinine (0.8-1.5) mg/dl Est GFR ( Amer) Est GFR (Non-Af Amer) POC Glucose (mg/dL) 170 H 209 H (65-110) mg/dL Random Glucose (70-110) mg/dL Calcium (8.4-10.5) mg/dL Total Bilirubin (0.2-1.3) mg/dL AST (17-59) U/L ALT (7-56) U/L Alkaline Phosphatase (38-126) U/L Total Protein (5.8-8.3) g/dL Albumin (3.0-4.8) g/dL Globulin gm/dL Albumin/Globulin Ratio (1.1-1.8) Ur Random Creatinine mg/dL Ur Random Sodium meq/L Laboratory Results - last 24 hr 07/04/18 07/04/18 07/04/18 07:17 11:07 16:16 WBC RBC Hgb Hct MCV MCH MCHC RDW Plt Count Manual Plt Count Gran % Lymph % (Auto) [place] % (Auto) Eos % (Auto) Baso % (Auto) Gran # Lymph # (Auto) [place] # (Auto) Eos # (Auto) Baso # (Auto) Platelet Evaluation PT INR APTT pCO2 pO2 HCO3 ABG pH ABG Total CO2 ABG O2 Saturation ABG O2 Content ABG Base Excess ABG Hemoglobin ABG Carboxyhemoglobin POC ABG HHb (Measured) ABG Methemoglobin ABG O2 Capacity Hgb O2 Saturation FiO2 Sodium Potassium Chloride Carbon Dioxide Anion Gap BUN Creatinine Est GFR ( Amer) Est GFR (Non-Af Amer) POC Glucose (mg/dL) 209 H 170 H 170 H Random Glucose Calcium Total Bilirubin AST ALT Alkaline Phosphatase Total Protein Albumin Globulin Albumin/Globulin Ratio Ur Random Creatinine Ur Random Sodium 07/04/18 07/04/18 07/05/18 19:59 22:00 05:00 WBC 6.9 D RBC 3.48 L Hgb 9.1 L Hct 29.3 L MCV 84.2 MCH 26.1 MCHC 31.1 RDW 17.1 H Plt Count 17 L* Manual Plt Count Gran % 95.4 H Lymph % (Auto) 1.0 L [place] % (Auto) 3.6 Eos % (Auto) 0.0 L Baso % (Auto) 0.0 Gran # 6.53 H Lymph # (Auto) 0.1 L [place] # (Auto) 0.3 Eos # (Auto) 0.0 Baso # (Auto) 0.00 Platelet Evaluation Low PT INR APTT 82.4 H pCO2 pO2 HCO3 ABG pH ABG Total CO2 ABG O2 Saturation ABG O2 Content ABG Base Excess ABG Hemoglobin ABG Carboxyhemoglobin POC ABG HHb (Measured) ABG Methemoglobin ABG O2 Capacity Hgb O2 Saturation FiO2 Sodium Potassium Chloride Carbon Dioxide Anion Gap BUN Creatinine Est GFR ( Amer) Est GFR (Non-Af Amer) POC Glucose (mg/dL) 158 H Random Glucose Calcium Total Bilirubin AST ALT Alkaline Phosphatase Total Protein Albumin Globulin Albumin/Globulin Ratio Ur Random Creatinine Ur Random Sodium 07/05/18 07/05/18 07/05/18 05:00 05:00 05:00 WBC RBC Hgb Hct MCV MCH MCHC RDW Plt Count Manual Plt Count Gran % Lymph % (Auto) [place] % (Auto) Eos % (Auto) Baso % (Auto) Gran # Lymph # (Auto) [place] # (Auto) Eos # (Auto) Baso # (Auto) Platelet Evaluation PT INR APTT 70.5 H pCO2 36 pO2 112.0 H HCO3 21.3 ABG pH 7.38 ABG Total CO2 22.4 ABG O2 Saturation 98.6 H ABG O2 Content 13.9 L ABG Base Excess -3.4 L ABG Hemoglobin 10.1 L ABG Carboxyhemoglobin 1.2 POC ABG HHb (Measured) 1.4 ABG Methemoglobin 1.0 ABG O2 Capacity 14.1 L Hgb O2 Saturation 96.4 FiO2 60.0 Sodium 140 Potassium 5.0 Chloride 110 H Carbon Dioxide 23 Anion Gap 12 BUN 86 H Creatinine 2.1 H Est GFR ( Amer) 39 Est GFR (Non-Af Amer) 32 POC Glucose (mg/dL) Random Glucose 207 H Calcium 7.9 L Total Bilirubin 0.7 AST 592 H ALT 570 H Alkaline Phosphatase 63 Total Protein 6.0 Albumin 3.2 Globulin 2.8 Albumin/Globulin Ratio 1.1 Ur Random Creatinine Ur Random Sodium 07/05/18 07/05/18 07/05/18 05:00 05:00 08:21 WBC RBC Hgb Hct MCV MCH MCHC RDW Plt Count Manual Plt Count 20 L* Gran % Lymph % (Auto) [place] % (Auto) Eos % (Auto) Baso % (Auto) Gran # Lymph # (Auto) [place] # (Auto) Eos # (Auto) Baso # (Auto) Platelet Evaluation PT 15.2 H INR 1.31 APTT pCO2 pO2 HCO3 ABG pH ABG Total CO2 ABG O2 Saturation ABG O2 Content ABG Base Excess ABG Hemoglobin ABG Carboxyhemoglobin POC ABG HHb (Measured) ABG Methemoglobin ABG O2 Capacity Hgb O2 Saturation FiO2 Sodium Potassium Chloride Carbon Dioxide Anion Gap BUN Creatinine Est GFR ( Amer) Est GFR (Non-Af Amer) POC Glucose (mg/dL) 200 H Random Glucose Calcium Total Bilirubin AST ALT Alkaline Phosphatase Total Protein Albumin Globulin Albumin/Globulin Ratio Ur Random Creatinine Ur Random Sodium 07/05/18 07/05/18 07/05/18 11:10 11:20 11:30 WBC 7.1 RBC 3.48 L Hgb 9.3 L Hct 29.6 L MCV 85.1 MCH 26.7 MCHC 31.4 RDW 17.1 H Plt Count 15 L* Manual Plt Count 21 L* Gran % 94.0 H Lymph % (Auto) 3.2 L [place] % (Auto) 2.8 Eos % (Auto) 0.0 L Baso % (Auto) 0.0 Gran # 6.67 H Lymph # (Auto) 0.2 L [place] # (Auto) 0.2 Eos # (Auto) 0.0 Baso # (Auto) 0.00 Platelet Evaluation Low PT INR APTT pCO2 pO2 HCO3 ABG pH ABG Total CO2 ABG O2 Saturation ABG O2 Content ABG Base Excess ABG Hemoglobin ABG Carboxyhemoglobin POC ABG HHb (Measured) ABG Methemoglobin ABG O2 Capacity Hgb O2 Saturation FiO2 Sodium Potassium Chloride Carbon Dioxide Anion Gap BUN Creatinine Est GFR ( Amer) Est GFR (Non-Af Amer) POC Glucose (mg/dL) Random Glucose Calcium Total Bilirubin AST ALT Alkaline Phosphatase Total Protein Albumin Globulin Albumin/Globulin Ratio Ur Random Creatinine 53 Ur Random Sodium 49 07/05/18 07/05/18 11:47 16:48 WBC RBC Hgb Hct MCV MCH MCHC RDW Plt Count Manual Plt Count Gran % Lymph % (Auto) [place] % (Auto) Eos % (Auto) Baso % (Auto) Gran # Lymph # (Auto) [place] # (Auto) Eos # (Auto) Baso # (Auto) Platelet Evaluation PT INR APTT pCO2 pO2 HCO3 ABG pH ABG Total CO2 ABG O2 Saturation ABG O2 Content ABG Base Excess ABG Hemoglobin ABG Carboxyhemoglobin POC ABG HHb (Measured) ABG Methemoglobin ABG O2 Capacity Hgb O2 Saturation FiO2 Sodium Potassium Chloride Carbon Dioxide Anion Gap BUN Creatinine Est GFR ( Amer) Est GFR (Non-Af Amer) POC Glucose (mg/dL) 202 H 223 H Random Glucose Calcium Total Bilirubin AST ALT Alkaline Phosphatase Total Protein Albumin Globulin Albumin/Globulin Ratio Ur Random Creatinine Ur Random Sodium Critical Care Progress Note - Nutrition Nutrition: Nutrition Category Date Time Status Heart Healthy Diet [DIET] Diets 07/03/18 Dinner Active Addendum Addendum: 07/05/18 17:21 ICU Attending Addendum Patient seen and examined. Case reviewed on round with housestaff. Agree with resident note above with the following additions/exceptions 62M smoker with COPD, HTN, DM, PVD admitted with septic shock from influ A resulting in multi organ failure. Intubated for resp support and hypoxia. Cont low Vt ventilation as is improve p to f ratio today cont tamiflu x 5 days as well empiric tx for superimposed PNA abx as per ID Elevated TNI likely demand from shock cont pressors for now on dobut with EF 15% unclear how acute this LV dysfuction is, I would expect him to be symptomatic prior to this admission if he was chronically suffering from this degree of heart failure on hep drip however stopped due to low plat, unlikely HIT given hx if chronic low plat concern with chronic low plat, unclear etio however will get more info from hem/onc who he sees as outpt and rec plat transfusion goal > 20K OG likely from shock as well, cont to monitor urine output improving trend transaminits HB drop by 2 grams, repeat CBC this afternoon Rest of care above Junior Mitchell MD Pulmonary Critical Care Attending Critical Care Time: 32 mins 07/05/18 17:22
[2018-07-05 07:40] LABS: PLATELET ESTIMATE LOW (NORMAL)
[2018-07-05] MEDS: Insulin Reg-MEDIUM-Coverage SC SCH ×4 (08:27→22:06)
[2018-07-05] MEDS: Albuterol-Ipratrop 3 mg / 0.5 (3 ml) UD IH SCH ×3 (08:27→19:40)
[2018-07-05] MEDS: MEROPENEM 500 MG in NS 500 MG/50 ML BAG IVPB SCH ×2 (08:59→21:34)
[2018-07-05] MEDS: MethylPREDNISolone 40 mg Vial IVP SCH ×2 (09:00→21:36)
[2018-07-05] MEDS: Oseltamivir 6 MG/ML PO SCH ×2 (09:11→22:00)
[2018-07-05 11:31] LABS: GRAN # 6.67 (1.4-6.5); HEMOGLOBIN 9.3 g/dL (14.0-18.0); LYMPH # 0.2 (1.2-3.4); LYMPH % 3.2 % (22.0-35.0); MEAN CELL VOLUME 85.1 fl (80.0-105.0); MEAN CORPUSCULAR HEMOGLOBIN 26.7 pg (25.0-35.0); MEAN CORPUSCULAR HGB CONC 31.4 g/dl (31.0-37.0); MONO # 0.2 (0.1-0.6); MONO % 2.8 % (1.0-6.0); RBC 3.48 10^6/uL (3.5-6.1); RED CELL DISTRIBUTION WIDTH 17.1 % (11.5-14.5); WHITE BLOOD COUNT 7.1 10^3/uL (4.5-11.0)
[2018-07-05 11:41] LABS: PLATELET COUNT 15 10^3/uL (120.0-450.0)
--- NOTE | 2018-07-05 12:01 | PN ---
DATE: 07/05/2018 REASON FOR CONSULTATION AND FOLLOWUP: Respiratory failure, sepsis, severe decrease LV function, non-STEMI and renal insufficiency. Seen for Dr. Saxena. The patient is in ICU 129, bed 6, still remain intubated. Has positive for flu. PHYSICAL EXAMINATION: As follows, VITAL SIGNS: Temperature afebrile, heart rate 112 and blood pressure 123/74. HEENT: PERRLA. Extraocular muscles intact. NECK: Supple. No carotid bruit or thyromegaly. CHEST: Clear to auscultation. HEART: S1 and S, regular. ABDOMEN: Soft. EXTREMITIES: Clubbing and cyanosis negative. LABORATORY DATA: Blood work as follows: WBC 6.9, hemoglobin 9.1, hematocrit 29.3 and platelet count 17. Chemistry shows sodium 140, potassium 5.1, chloride 110, carbon dioxide 23, anion gap of 12, BUN 86 and creatinine 2.1. IMPRESSION: A 62-year-old male with past medical history of diabetes, hypertension, hyperlipidemia, history of chronic heart failure in the past and history of chronic renal insufficiency. Recent echo shows significantly decreased left ventricular function, ejection fraction 15%, moderate pulmonary hypertension, admitted with respiratory failure, acute congestive heart failure, pulmonary edema, flu probably symptoms exacerbated by flu, [id number] myocardial infarction, renal insufficiency, chronic obstructive pulmonary disease and infection. RECOMMENDATION: Continue broad-spectrum antibiotic, vent management. Continue heparin. Continue low dose of dobutamine. Platelet count is low, so we will hold heparin because of severely decreased platelet count. We will send platelet antibody route, rule-out heparin induced thrombocytopenia. Discussed with the resident, discussed with the nursing staff taking care of the patient. Overall, the patient's condition is critical. Long-time prognosis is guarded. We will transfer care tomorrow to Dr. Benjamin Saxena. Sarah Gilman MD
[2018-07-05] MEDS: DOBUTamine 500mg/250ml D5W 500 MG/250 ML BAG IV PRN (12:02)
[2018-07-05 12:41] LABS: PLATELET ESTIMATE LOW (NORMAL)
--- NOTE | 2018-07-05 13:13 | PN ---
DATE: 07/05/2018 PULMONARY PROGRESS NOTE SUBJECTIVE: Patient was seen and examined in intensive care unit on a ventilator. He appears to be improving blood gas; however, he is still febrile to 101. PHYSICAL EXAMINATION: GENERAL: He is only mildly responsive since he is sedated with propofol and fentanyl. VITAL SIGNS: In addition to elevated temperature. HEENT: Head is normocephalic and atraumatic. RESPIRATORY: Wheezes and rhonchi are present bilaterally. CARDIOVASCULAR: Regular rate. No S3, murmur. GASTROINTESTINAL: Soft, nontender, no organomegaly. EXTREMITIES: No pedal edema. NEUROLOGIC: Unable to evaluate due to sedation. SKIN: No acute skin rash. Patient is currently receiving inhalation therapy with Duoneb. He is on levofloxacin, meropenem as well as Tamiflu. He is on moderate dose of Solu-Medrol. His arterial blood gas shows pH of 7.38, PCO2 of 36 and PO2 of 112 on 60%. LABORATORY DATA: Today's sodium is 140, potassium 5.0, chloride is 110. His AST and ALT are elevated. Cardiac troponin is pending. His WBC is 16.9, hemoglobin of 9.1 and platelet count is 17,000. The last chest x-ray is from yesterday and no new x-rays available for review. ASSESSMENT: 1. Influenza A. 2. Pulmonary congestion versus early acute respiratory distress syndrome. 3. Acute respiratory failure. 4. Non-ST elevation myocardial infarction. 5. Severe thrombocytopenia. PLAN: I have discussed the case with the ICU team. From a pulmonary standpoint, patient's arterial blood gases have improved slightly; however, there is no new chest x-ray available for review, this will be done during the day. His chest x-rays consistent with congestive heart failure. At this point, doubt ARDS, but due to concomitant fever and influenza A, this possibility remains high on the differential diagnosis list. He should not be weaned until stable and the fever is down. Cardiac catheterization will need to be delayed due to persistent fever and severe thrombocytopenia. Overall, his condition remains very critical. Elkin Rai MD [facility] # [id number]
[2018-07-05 13:50] LABS: CREATININE,RANDOM URINE 53 mg/dL
--- NOTE | 2018-07-05 15:56 | PN ---
DATE: 07/05/2018 LOCATION: The patient seen in [facility], bed 6. SUBJECTIVE: The patient remains intubated on the ventilator. PHYSICAL EXAMINATION: VITAL SIGNS: Temperature 100.8 yesterday, blood pressure is 123/70, respiratory rate, on the vent, heart rate 112. HEENT: Unremarkable. NECK: Supple. LUNGS: Decreased breath sounds. HEART: Normal S1, S2. ABDOMEN: Soft. LABORATORY DATA: Laboratory examination reveals a white count of 6.9, hemoglobin of 9, platelets of 17. Chemistries reveals a BUN of 86. Creatinine is 2.1. Urinalysis is noted. Influenza is positive. Urine Legionella is negative. Hepatitis profile is negative. Microbiology reveals blood cultures negative. Nasal MRSA. Urine cultures negative. Sputum cultures pending. Review of orders reveals the patient to be on meropenem, Solu-Medrol and Tamiflu. Chest x-ray from yesterday is reviewed infiltrates. Procalcitonin is elevated. ASSESSMENT AND PLAN: A 62-year-old male, long-time active smoker with chronic obstructive lung disease, hypertension, diabetes, peripheral vascular disease, history of elbow septic arthritis and cardiac disease, admitted with severe sepsis, respiratory failure intubated on a ventilator, hypoxic respiratory failure, [id number] renal failure with severe right-sided community-acquired pneumonia, thrombocytopenia, positive for influenza and [id number] myocardial infarction, on meropenem, Tamiflu. We will follow with you. Satya Fernandes MD
--- NOTE | 2018-07-05 17:22 | PN ---
SUBJECTIVE: The patient was seen and examined at bedside in the ICU. He remains intubated, sedated and largely clinically unchanged. PHYSICAL EXAMINATION: VITAL SIGNS: Temperature .Tc 98.6, Tm 100.8; pulse 92, blood pressure 108/53, respiratory rate 20, oxygen saturation 99% on 60% FiO2. GENERAL: Intubated and sedated. HEENT: PERRL. ETT in place. NECK: No JVD. LUNGS: Coarse breath sounds anteriorly with scattered rhonchi and bibasilar crackles. CARDIOVASCULAR: Regular rate and rhythm. Normal S1, S2. ABDOMEN: Normoactive bowel sounds. Soft, nontender, nondistended. EXTREMITIES: Trace lower extremity edema bilaterally. NEUROLOGIC: The patient remains sedated. LABORATORY DATA: WBC 7.1 with 94% neutrophils, hemoglobin 9.3, hematocrit 29, platelets 21, MCV 85. Sodium 140, potassium 5, chloride 110, bicarb 23, BUN 86, creatinine 2.1, glucose 207. AST 592, ALT 570. Blood cultures were no growth to date. Influenza A positive. ASSESSMENT: The patient is a 62-year-old man with multiple medical comorbidities who was admitted to the ICU s/p intubation for impending respiratory failure secondary to severe sepsis secondary to community-acquired pneumonia with influenza, acute systolic heart failure, NSTEMI, OG and transaminitis. PLAN: 1. Acute hypoxic respiratory failure s/p intubation. Input from Dr. Rai appreciated. Continue with care as per ICU team. 2. Severe sepsis secondary to community-acquired pneumonia with influenza. Input from Dr. Fernandes appreciated. Continue with current antimicrobials. 3. NSTEMI. Input from Dr. Saxena noted and appreciated and the patient is tentatively scheduled for cardiac catheterization tomorrow. Heparin drip remains on hold given the patient's drop in hemoglobin and concern for possible bleed in the setting of significant thrombocytopenia. 4. Acute systolic heart failure. Continue with Dobutamine for inotropic support. 5. Acute kidney injury. Input from Dr. Sullivan appreciated. Renal function slowly trending favorably. Continue to monitor strict I&O's, renally dose medications and avoid nephrotoxins. 6. Transaminitis, likely secondary to shock liver in the setting of severe sepsis. Abdominal ultrasound reviewed and unremarkable. Hepatitis panel is negative. We will continue to monitor. 7. 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 The patient is known to Dr. Estevez who will be consulted for further evaluation and recommendations. 8. Normocytic anemia. Labs demonstrate a 2 g drop in hemoglobin since admission. Stool occult blood is pending. Anticoagulation therapy is on hold given concern for possible bleed in the setting of significant thrombocytopenia. We will continue to monitor CBC and transfuse as needed. 9. Type 2 diabetes mellitus. Continue medium-dose insulin sliding scale for coverage. 10. Hypertension. Antihypertensives remain on hold given his tenuous hemodynamics. 11. Pseudogout. 12. Anxiety disorder. 13. GERD. Continue Protonix 40 mg p.o. daily 14. Prophylaxis. Continue with Protonix for GI prophylaxis. DVT prophylaxis on hold given concern for possible bleed. CODE STATUS: Full code. Yassine Martinez MD [facility]
--- NOTE | 2018-07-05 22:31 | CP.PCM.PN ---
Subjective - Date & Time of Evaluation Date of Evaluation: 07/05/18 Time of Evaluation: 11:30 - Subjective Subjective: Providing coverage for Dr. Sullivan: 62 yo M w/ pmh of htn, dm, PAD, and COPD presented to ED with dyspnea; admitted to ICU for hypoxemic respiratory failure; found to have severe systolic dyfunction, influenza positive; Patient remains on 60% FIO2 on ventilator support today, sedated; urine output has increased to ~200 cc/hr this morning; still on dobutamine drip; Objective - Vital Signs/Intake and Output Vital Signs (last 24 hours): Temp Pulse Resp BP Pulse Ox 98.6 F 94 H 19 118/56 L 100 07/05/18 14:00 07/05/18 18:00 07/05/18 08:27 07/05/18 14:00 07/05/18 14:00 Intake and Output: 07/05/18 07/06/18 18:59 06:59 Intake Total 1006 100 Output Total 1175 Balance -169 100 - Medications Medications: Current Medications Albuterol/Ipratropium (Duoneb 3 Mg/0.5 Mg (3 Ml) Ud) 3 ml IH [id number] JHON Last Admin: 07/05/18 19:40 Dose: 3 ml Albuterol/Ipratropium (Duoneb 3 Mg/0.5 Mg (3 Ml) Ud) 3 ml IH Q2H PRN PRN Reason: Shortness of Breath Meropenem/Sodium Chloride (Merrem Iv 500 Mg/Ns 50 Ml) 500 mg in 50 mls @ 100 mls/hr IVPB Q12 JHON; Protocol Stop: 07/10/18 14:16 Last Admin: 07/05/18 21:34 Dose: 100 mls/hr Levofloxacin/Dextrose (Levaquin 500mg) 500 mg in 100 mls @ 100 mls/hr IVPB Q48H JHON; Protocol Last Admin: 07/04/18 06:29 Dose: 100 mls/hr Propofol (Diprivan) 1,000 mg in 100 mls @ 2.79 mls/hr IV .Q24H PRN; Protocol PRN Reason: TITRATE PER MD ORDER Last Admin: 07/05/18 22:06 Dose: 40 mcg/kg/min, 22.317 mls/hr Fentanyl Citrate (Fentanyl Citrate/Sodium Chloride 1 Mg/100 Ml) 1,000 mcg in 100 mls @ 10 mls/hr IV .Q10H PRN; Protocol PRN Reason: TITRATE PER MD ORDER Last Admin: 07/05/18 07:04 Dose: 50 mcg/hr, 5 mls/hr Dobutamine HCl/Dextrose (Dobutamine/Dextrose 5% 500mg/250ml) 500 mg in 250 mls @ 14.628 mls/hr IV .Q17H6M PRN PRN Reason: SYSTOLIC BLOOD PRESSURE Last Admin: 07/05/18 12:02 Dose: 14.628 mls/hr Heparin Sodium/Sodium Chloride (Heparin 47878 Units/250ml 1/2 Normal Saline) 25,000 units in 250 mls @ 7.802 mls/hr IV .Q24H JHON; Protocol Last Admin: 07/05/18 08:58 Dose: Not Given Insulin Human Regular (Humulin R Med) 0 units SC ACHS JHON; Protocol Last Admin: 07/05/18 22:06 Dose: Not Given Methylprednisolone (Solu-Medrol) 40 mg IVP Q12 JHON Last Admin: 07/05/18 21:36 Dose: 40 mg Oseltamivir Phosphate (Tamiflu Susp) 30 mg PO Q12 JHON Last Admin: 07/05/18 09:11 Dose: 30 mg Pantoprazole Sodium (Protonix Inj) 40 mg IVP DAILY JHON Last Admin: 07/05/18 09:00 Dose: 40 mg - Labs Labs: 07/05/18 11:20 07/05/18 05:00 PT 15.2 SECONDS (9.4-12.5) H 07/05/18 05:00 INR 1.31 07/05/18 05:00 APTT 70.5 Seconds (25.1-36.5) H 07/05/18 05:00 - Constitutional Appears: Non-toxic, No Acute Distress - Eye Exam Eye Exam: Normal appearance. absent: Scleral icterus - ENT Exam ENT Exam: Mucous Membranes Moist - Respiratory Exam Respiratory Exam: Clear to Ausculation Bilateral. absent: Respiratory Distress - Cardiovascular Exam Cardiovascular Exam: RRR, +S1, +S2. absent: Gallop, Rubs - GI/Abdominal Exam GI & Abdominal Exam: Soft. absent: Distended, Tenderness - Extremities Exam Additional comments: shriveled skin of lower legs, minimal edema - Neurological Exam Additional comments: sedated, responding to noxious stimuli; - Skin Skin Exam: Warm. absent: Cyanosis Assessment and Plan (1) Acute kidney injury Assessment & Plan: Non-oliguric renal failure in the setting of sepsis and transient hypotension; renal function now improving with polyuria this morning, likely due to ATN recovery; improving PO2 on this mornings ABG; hemodynamically stable but remains on inotropic support with dobutamine; hyperkalemia also improved; Discussed with ICU team; concern for acute decompensated CHF noted (although patient has other reasons for having unilateral R sided infiltrates) but will recommend to start gentle IVF w/ NS at 50 cc/hr to prevent intravascular volume depletion; -avoid nephrotoxic agents (ibuprofen discontinued); -monitor urine output closely; -no need for diuretics at this time; Status: Acute (2) Hyperkalemia Status: Acute (3) CHF (congestive heart failure) Status: Acute (4) Sepsis Assessment & Plan: On levaquin and meropenem for possible bacterial sepsis; will need to adjust dosing as renal function improves; Status: Acute (5) Acute hypoxemic respiratory failure Status: Acute
[2018-07-06] MEDS: Albuterol-Ipratrop 3 mg / 0.5 (3 ml) UD IH SCH ×4 (01:35→19:40)
[2018-07-06] MEDS: Fentanyl 1000mcg/100ml NS 1,000 MCG/100 ML BAG IV PRN ×2 (04:26→19:10)
[2018-07-06] MEDS: Propofol 10 mg/ml 1,000 MG/100 ML VIAL IV PRN ×5 (04:31→19:11)
[2018-07-06 05:27] LABS: ARTERIAL BLOOD GAS HCO3 22.4 mmol/L (21-28); ARTERIAL BLOOD GAS HEMOGLOBIN 9.3 g/dL (11.7-17.4); ARTERIAL BLOOD GAS O2 CAPACITY 12.9 mL/dl (16-24); ARTERIAL BLOOD GAS O2 CONTENT 12.7 ML/dl (15-23); ARTERIAL BLOOD GAS O2 SAT 98.2 % (95-98); ARTERIAL BLOOD GAS PCO2 37 mm/Hg (35-45); ARTERIAL BLOOD GAS PH 7.39 (7.35-7.45); ARTERIAL BLOOD GAS TCO2 23.5 mmol.L (22-28)
[2018-07-06 06:20] LABS: GRAN # 5.88 (1.4-6.5); GRAN % 90.6 % (50.0-68.0); LYMPH # 0.4 (1.2-3.4); LYMPH % 5.4 % (22.0-35.0); MEAN CELL VOLUME 85.2 fl (80.0-105.0); MEAN CORPUSCULAR HEMOGLOBIN 26.4 pg (25.0-35.0); MONO # 0.3 (0.1-0.6); RBC 3.79 10^6/uL (3.5-6.1); RED CELL DISTRIBUTION WIDTH 17.2 % (11.5-14.5); WHITE BLOOD COUNT 6.5 10^3/uL (4.5-11.0)
[2018-07-06 06:49] LABS: ALB/GLOB RATIO 1.1 (1.1-1.8); ALBUMIN 3.4 g/dL (3.0-4.8); CALCIUM 8.2 mg/dL (8.4-10.5)
[2018-07-06 06:51] LABS: PLATELET COUNT 19 10^3/uL (120.0-450.0)
[2018-07-06] MEDS: DOBUTamine 500mg/250ml D5W 500 MG/250 ML BAG IV PRN (07:12)
--- NOTE | 2018-07-06 07:44 | CP.CCUPN ---
<Ismael Turner - Last Filed: 07/06/18 13:55> CCU Subjective - Physician Review Subjective (Free Text): Ismael Turner PGY-1 Progress Note for ICU Patient seen and evaluated at bedside. No acute events overnight. No fevers overnight. Currently sedated on Propofol and Fentanyl drips. Patient responds to painful stimuli. Heparin drip on hold. Further ROS was unobtainable at this time due to clinical condition. CCU Objective - Vital Signs / Intake & Output Intake and Output (Last 8hrs): Intake & Output 07/05/18 07/05/18 07/06/18 14:59 22:59 06:59 Intake Total 300 806 200 Output Total 1175 Balance 300 -369 200 Intake: IV 300 746 200 ATB 50 Fentanyl 60 dobutamine 172 heparin 0 propofol 264 Tube Feeding 60 Output: Urine 1175 Urethral (Ash) 1175 Other: # Bowel Movements 0 - Physical Exam Head: Positive for: Atraumatic, Normocephalic Pupils: Positive for: PERRL Extroacular Muscles: Positive for: EOMI Conjunctiva: Positive for: Normal Pharnyx: Positive for: Other (Intubated, currently at 60/5/16/450) Respiratory/Chest: Positive for: Wheezes (mild expiratory wheeze bilaterally), Decreased Breath Sounds, Tachypneic, Other (Intubated). Negative for: Respiratory Distress Cardiovascular: Positive for: Normal S1, S2, Tachycardic. Negative for: Murmurs Abdomen: Positive for: Distention. Negative for: Tenderness, Peritoneal Signs Back: Positive for: Normal Inspection Upper Extremity: Positive for: Normal Inspection. Negative for: Cyanosis, Edema Lower Extremity: Positive for: Edema (2+ pitting edema noted to right lower extremity; chronic diabetic ulcer noted to anterior anderson of left lower extremity ) Neurological: Positive for: Other (unable to be assessed 2/2 sedation) Skin: Positive for: Warm, Dry, Normal Color. Negative for: Rashes Psychiatric: Positive for: Alert, Oriented x 3, Normal Insight, Normal Concentration - Medications Active Medications: Active Medications Generic Name Dose Route Start Last Admin Trade Name Freq PRN Reason Stop Dose Admin Albuterol/Ipratropium 3 ml 07/03/18 14:00 07/06/18 01:35 Duoneb 3 Mg/0.5 Mg (3 Ml) Ud IH 3 ml [id number] SEEMA Administration Albuterol/Ipratropium 3 ml 07/03/18 11:04 Duoneb 3 Mg/0.5 Mg (3 Ml) Ud IH Q2H PRN Shortness of Breath Meropenem/Sodium Chloride 500 mg in 50 mls @ 100 mls/hr 07/03/18 14:15 07/05/18 21:34 Merrem Iv 500 Mg/Ns 50 Ml IVPB 07/10/18 14:16 100 mls/hr Q12 SEEMA Administration Protocol Levofloxacin/Dextrose 500 mg in 100 mls @ 100 mls/hr 07/04/18 07:00 07/04/18 06:29 Levaquin 500mg IVPB 100 mls/hr Q48H SEEMA Administration Protocol Propofol 1,000 mg in 100 mls @ 2.79 mls/hr 07/03/18 16:11 07/06/18 04:31 Diprivan IV 40 mcg/kg/min .Q24H PRN 22.317 mls/hr TITRATE PER MD ORDER Administration Protocol 5 MCG/KG/MIN Fentanyl Citrate 1,000 mcg in 100 mls @ 10 mls/hr 07/03/18 16:44 07/06/18 04:26 Fentanyl Citrate/Sodium Chloride 1 Mg/100 Ml IV 50 mcg/hr .Q10H PRN 5 mls/hr TITRATE PER MD ORDER Administration Protocol 100 MCG/HR Dobutamine HCl/Dextrose 500 mg in 250 mls @ 14.628 mls/hr 07/04/18 10:40 07/05/18 12:02 Dobutamine/Dextrose 5% 500mg/250ml IV 14.628 mls/hr .Q17H6M PRN Administration SYSTOLIC BLOOD PRESSURE 5 MCG/KG/MIN Heparin Sodium/Sodium Chloride 25,000 units in 250 mls @ 7.802 mls/hr 07/05/18 01:00 07/05/18 08:58 Heparin 03329 Units/250ml 1/2 Normal Saline IV Not Given .Q24H SEEMA Protocol 8 UNITS/KG/HR Insulin Human Regular 0 units 07/03/18 22:00 07/05/18 22:06 Humulin R Med SC Not Given ACHS SEEMA Protocol Methylprednisolone 40 mg 07/03/18 22:00 07/05/18 21:36 Solu-Medrol IVP 40 mg Q12 SEEMA Administration Oseltamivir Phosphate 30 mg 07/04/18 10:00 07/05/18 22:00 Tamiflu Susp PO 30 mg Q12 SEEMA Administration Pantoprazole Sodium 40 mg 07/03/18 14:15 07/05/18 09:00 Protonix Inj IVP 40 mg DAILY SEEMA Administration - Patient Studies Lab Studies: Microbiology Studies 07/03/18 09:45 Blood Culture - Preliminary Blood NO GROWTH AFTER 48 HOURS 07/03/18 09:25 Blood Culture - Preliminary Blood NO GROWTH AFTER 48 HOURS 07/04/18 02:30 Gram Stain - Final Sputum 07/03/18 20:10 Urine Culture - Final Urine,Ash No Growth (<1,000 CFU/ML) Lab Studies 07/06/18 07/06/18 07/06/18 Range/Units 05:30 05:30 05:10 WBC 6.5 (4.5-11.0) 10^3/uL RBC 3.79 (3.5-6.1) 10^6/uL Hgb 10.0 L (14.0-18.0) g/dL Hct 32.3 L (42.0-52.0) % MCV 85.2 (80.0-105.0) fl MCH 26.4 (25.0-35.0) pg MCHC 31.0 (31.0-37.0) g/dl RDW 17.2 H (11.5-14.5) % Plt Count 19 L* (120.0-450.0) 10^3/uL Manual Plt Count (120-450) K/mm3 Gran % 90.6 H (50.0-68.0) % Lymph % (Auto) 5.4 L (22.0-35.0) % O'Brien % (Auto) 4.0 (1.0-6.0) % Eos % (Auto) 0.0 L (1.5-5.0) % Baso % (Auto) 0.0 (0.0-3.0) % Gran # 5.88 (1.4-6.5) Lymph # (Auto) 0.4 L (1.2-3.4) O'Brien # (Auto) 0.3 (0.1-0.6) Eos # (Auto) 0.0 (0.0-0.7) Baso # (Auto) 0.00 (0.0-2.0) K/mm3 Platelet Evaluation (NORMAL) pCO2 37 (35-45) mm/Hg pO2 87.0 (80-100) mm/Hg HCO3 22.4 (21-28) mmol/L ABG pH 7.39 (7.35-7.45) ABG Total CO2 23.5 (22-28) mmol.L ABG O2 Saturation 98.2 H (95-98) % ABG O2 Content 12.7 L (15-23) ML/dl ABG Base Excess -2.3 L (-2.0-3.0) mmol/L ABG Hemoglobin 9.3 L (11.7-17.4) g/dL ABG Carboxyhemoglobin 1.6 H (0.5-1.5) % POC ABG HHb (Measured) 1.8 (0-5) % ABG Methemoglobin 0.8 (0.0-3.0) % ABG O2 Capacity 12.9 L (16-24) mL/dl Hgb O2 Saturation 95.9 (95.0-98.0) % FiO2 60.0 % Sodium 145 (132-148) mmol/L Potassium 5.4 H (3.6-5.0) mmol/L Chloride 114 H (98-107) mmol/L Carbon Dioxide 24 (21-33) mmol/L Anion Gap 13 (10-20) BUN 85 H (7-21) mg/dL Creatinine 2.0 H (0.8-1.5) mg/dl Est GFR ( Amer) 41 Est GFR (Non-Af Amer) 34 POC Glucose (mg/dL) (65-110) mg/dL Random Glucose 140 H (70-110) mg/dL Calcium 8.2 L (8.4-10.5) mg/dL Total Bilirubin 0.7 (0.2-1.3) mg/dL AST 717 H D (17-59) U/L ALT 746 H (7-56) U/L Alkaline Phosphatase 68 (38-126) U/L Total Protein 6.4 (5.8-8.3) g/dL Albumin 3.4 (3.0-4.8) g/dL Globulin 3.0 gm/dL Albumin/Globulin Ratio 1.1 (1.1-1.8) Ur Random Creatinine mg/dL Ur Random Sodium meq/L 07/05/18 07/05/18 07/05/18 Range/Units 21:23 16:48 11:47 WBC (4.5-11.0) 10^3/uL RBC (3.5-6.1) 10^6/uL Hgb (14.0-18.0) g/dL Hct (42.0-52.0) % MCV (80.0-105.0) fl MCH (25.0-35.0) pg MCHC (31.0-37.0) g/dl RDW (11.5-14.5) % Plt Count (120.0-450.0) 10^3/uL Manual Plt Count (120-450) K/mm3 Gran % (50.0-68.0) % Lymph % (Auto) (22.0-35.0) % O'Brien % (Auto) (1.0-6.0) % Eos % (Auto) (1.5-5.0) % Baso % (Auto) (0.0-3.0) % Gran # (1.4-6.5) Lymph # (Auto) (1.2-3.4) O'Brien # (Auto) (0.1-0.6) Eos # (Auto) (0.0-0.7) Baso # (Auto) (0.0-2.0) K/mm3 Platelet Evaluation (NORMAL) pCO2 (35-45) mm/Hg pO2 (80-100) mm/Hg HCO3 (21-28) mmol/L ABG pH (7.35-7.45) ABG Total CO2 (22-28) mmol.L ABG O2 Saturation (95-98) % ABG O2 Content (15-23) ML/dl ABG Base Excess (-2.0-3.0) mmol/L ABG Hemoglobin (11.7-17.4) g/dL ABG Carboxyhemoglobin (0.5-1.5) % POC ABG HHb (Measured) (0-5) % ABG Methemoglobin (0.0-3.0) % ABG O2 Capacity (16-24) mL/dl Hgb O2 Saturation (95.0-98.0) % FiO2 % Sodium (132-148) mmol/L Potassium (3.6-5.0) mmol/L Chloride (98-107) mmol/L Carbon Dioxide (21-33) mmol/L Anion Gap (10-20) BUN (7-21) mg/dL Creatinine (0.8-1.5) mg/dl Est GFR ( Amer) Est GFR (Non-Af Amer) POC Glucose (mg/dL) 178 H 223 H 202 H (65-110) mg/dL Random Glucose (70-110) mg/dL Calcium (8.4-10.5) mg/dL Total Bilirubin (0.2-1.3) mg/dL AST (17-59) U/L ALT (7-56) U/L Alkaline Phosphatase (38-126) U/L Total Protein (5.8-8.3) g/dL Albumin (3.0-4.8) g/dL Globulin gm/dL Albumin/Globulin Ratio (1.1-1.8) Ur Random Creatinine mg/dL Ur Random Sodium meq/L 07/05/18 07/05/18 07/05/18 Range/Units 11:30 11:20 11:10 WBC 7.1 (4.5-11.0) 10^3/uL RBC 3.48 L (3.5-6.1) 10^6/uL Hgb 9.3 L (14.0-18.0) g/dL Hct 29.6 L (42.0-52.0) % MCV 85.1 (80.0-105.0) fl MCH 26.7 (25.0-35.0) pg MCHC 31.4 (31.0-37.0) g/dl RDW 17.1 H (11.5-14.5) % Plt Count 15 L* (120.0-450.0) 10^3/uL Manual Plt Count 21 L* (120-450) K/mm3 Gran % 94.0 H (50.0-68.0) % Lymph % (Auto) 3.2 L (22.0-35.0) % O'Brien % (Auto) 2.8 (1.0-6.0) % Eos % (Auto) 0.0 L (1.5-5.0) % Baso % (Auto) 0.0 (0.0-3.0) % Gran # 6.67 H (1.4-6.5) Lymph # (Auto) 0.2 L (1.2-3.4) O'Brien # (Auto) 0.2 (0.1-0.6) Eos # (Auto) 0.0 (0.0-0.7) Baso # (Auto) 0.00 (0.0-2.0) K/mm3 Platelet Evaluation Low (NORMAL) pCO2 (35-45) mm/Hg pO2 (80-100) mm/Hg HCO3 (21-28) mmol/L ABG pH (7.35-7.45) ABG Total CO2 (22-28) mmol.L ABG O2 Saturation (95-98) % ABG O2 Content (15-23) ML/dl ABG Base Excess (-2.0-3.0) mmol/L ABG Hemoglobin (11.7-17.4) g/dL ABG Carboxyhemoglobin (0.5-1.5) % POC ABG HHb (Measured) (0-5) % ABG Methemoglobin (0.0-3.0) % ABG O2 Capacity (16-24) mL/dl Hgb O2 Saturation (95.0-98.0) % FiO2 % Sodium (132-148) mmol/L Potassium (3.6-5.0) mmol/L Chloride (98-107) mmol/L Carbon Dioxide (21-33) mmol/L Anion Gap (10-20) BUN (7-21) mg/dL Creatinine (0.8-1.5) mg/dl Est GFR ( Amer) Est GFR (Non-Af Amer) POC Glucose (mg/dL) (65-110) mg/dL Random Glucose (70-110) mg/dL Calcium (8.4-10.5) mg/dL Total Bilirubin (0.2-1.3) mg/dL AST (17-59) U/L ALT (7-56) U/L Alkaline Phosphatase (38-126) U/L Total Protein (5.8-8.3) g/dL Albumin (3.0-4.8) g/dL Globulin gm/dL Albumin/Globulin Ratio (1.1-1.8) Ur Random Creatinine 53 mg/dL Ur Random Sodium 49 meq/L 07/05/18 07/05/18 07/05/18 Range/Units 08:21 05:00 05:00 WBC (4.5-11.0) 10^3/uL RBC (3.5-6.1) 10^6/uL Hgb (14.0-18.0) g/dL Hct (42.0-52.0) % MCV (80.0-105.0) fl MCH (25.0-35.0) pg MCHC (31.0-37.0) g/dl RDW (11.5-14.5) % Plt Count (120.0-450.0) 10^3/uL Manual Plt Count 20 L* (120-450) K/mm3 Gran % (50.0-68.0) % Lymph % (Auto) (22.0-35.0) % O'Brien % (Auto) (1.0-6.0) % Eos % (Auto) (1.5-5.0) % Baso % (Auto) (0.0-3.0) % Gran # (1.4-6.5) Lymph # (Auto) (1.2-3.4) O'Brien # (Auto) (0.1-0.6) Eos # (Auto) (0.0-0.7) Baso # (Auto) (0.0-2.0) K/mm3 Platelet Evaluation Low (NORMAL) pCO2 (35-45) mm/Hg pO2 (80-100) mm/Hg HCO3 (21-28) mmol/L ABG pH (7.35-7.45) ABG Total CO2 (22-28) mmol.L ABG O2 Saturation (95-98) % ABG O2 Content (15-23) ML/dl ABG Base Excess (-2.0-3.0) mmol/L ABG Hemoglobin (11.7-17.4) g/dL ABG Carboxyhemoglobin (0.5-1.5) % POC ABG HHb (Measured) (0-5) % ABG Methemoglobin (0.0-3.0) % ABG O2 Capacity (16-24) mL/dl Hgb O2 Saturation (95.0-98.0) % FiO2 % Sodium (132-148) mmol/L Potassium (3.6-5.0) mmol/L Chloride (98-107) mmol/L Carbon Dioxide (21-33) mmol/L Anion Gap (10-20) BUN (7-21) mg/dL Creatinine (0.8-1.5) mg/dl Est GFR ( Amer) Est GFR (Non-Af Amer) POC Glucose (mg/dL) 200 H (65-110) mg/dL Random Glucose (70-110) mg/dL Calcium (8.4-10.5) mg/dL Total Bilirubin (0.2-1.3) mg/dL AST (17-59) U/L ALT (7-56) U/L Alkaline Phosphatase (38-126) U/L Total Protein (5.8-8.3) g/dL Albumin (3.0-4.8) g/dL Globulin gm/dL Albumin/Globulin Ratio (1.1-1.8) Ur Random Creatinine mg/dL Ur Random Sodium meq/L Laboratory Results - last 24 hr 07/05/18 07/05/18 07/05/18 05:00 05:00 08:21 WBC RBC Hgb Hct MCV MCH MCHC RDW Plt Count Manual Plt Count 20 L* Gran % Lymph % (Auto) O'Brien % (Auto) Eos % (Auto) Baso % (Auto) Gran # Lymph # (Auto) O'Brien # (Auto) Eos # (Auto) Baso # (Auto) Platelet Evaluation Low pCO2 pO2 HCO3 ABG pH ABG Total CO2 ABG O2 Saturation ABG O2 Content ABG Base Excess ABG Hemoglobin ABG Carboxyhemoglobin POC ABG HHb (Measured) ABG Methemoglobin ABG O2 Capacity Hgb O2 Saturation FiO2 Sodium Potassium Chloride Carbon Dioxide Anion Gap BUN Creatinine Est GFR ( Amer) Est GFR (Non-Af Amer) POC Glucose (mg/dL) 200 H Random Glucose Calcium Total Bilirubin AST ALT Alkaline Phosphatase Total Protein Albumin Globulin Albumin/Globulin Ratio Ur Random Creatinine Ur Random Sodium 07/05/18 07/05/18 07/05/18 11:10 11:20 11:30 WBC 7.1 RBC 3.48 L Hgb 9.3 L Hct 29.6 L MCV 85.1 MCH 26.7 MCHC 31.4 RDW 17.1 H Plt Count 15 L* Manual Plt Count 21 L* Gran % 94.0 H Lymph % (Auto) 3.2 L O'Brien % (Auto) 2.8 Eos % (Auto) 0.0 L Baso % (Auto) 0.0 Gran # 6.67 H Lymph # (Auto) 0.2 L O'Brien # (Auto) 0.2 Eos # (Auto) 0.0 Baso # (Auto) 0.00 Platelet Evaluation Low pCO2 pO2 HCO3 ABG pH ABG Total CO2 ABG O2 Saturation ABG O2 Content ABG Base Excess ABG Hemoglobin ABG Carboxyhemoglobin POC ABG HHb (Measured) ABG Methemoglobin ABG O2 Capacity Hgb O2 Saturation FiO2 Sodium Potassium Chloride Carbon Dioxide Anion Gap BUN Creatinine Est GFR ( Amer) Est GFR (Non-Af Amer) POC Glucose (mg/dL) Random Glucose Calcium Total Bilirubin AST ALT Alkaline Phosphatase Total Protein Albumin Globulin Albumin/Globulin Ratio Ur Random Creatinine 53 Ur Random Sodium 49 07/05/18 07/05/18 07/05/18 11:47 16:48 21:23 WBC RBC Hgb Hct MCV MCH MCHC RDW Plt Count Manual Plt Count Gran % Lymph % (Auto) O'Brien % (Auto) Eos % (Auto) Baso % (Auto) Gran # Lymph # (Auto) O'Brien # (Auto) Eos # (Auto) Baso # (Auto) Platelet Evaluation pCO2 pO2 HCO3 ABG pH ABG Total CO2 ABG O2 Saturation ABG O2 Content ABG Base Excess ABG Hemoglobin ABG Carboxyhemoglobin POC ABG HHb (Measured) ABG Methemoglobin ABG O2 Capacity Hgb O2 Saturation FiO2 Sodium Potassium Chloride Carbon Dioxide Anion Gap BUN Creatinine Est GFR ( Amer) Est GFR (Non-Af Amer) POC Glucose (mg/dL) 202 H 223 H 178 H Random Glucose Calcium Total Bilirubin AST ALT Alkaline Phosphatase Total Protein Albumin Globulin Albumin/Globulin Ratio Ur Random Creatinine Ur Random Sodium 07/06/18 07/06/18 07/06/18 05:10 05:30 05:30 WBC 6.5 RBC 3.79 Hgb 10.0 L Hct 32.3 L MCV 85.2 MCH 26.4 MCHC 31.0 RDW 17.2 H Plt Count 19 L* Manual Plt Count Gran % 90.6 H Lymph % (Auto) 5.4 L O'Brien % (Auto) 4.0 Eos % (Auto) 0.0 L Baso % (Auto) 0.0 Gran # 5.88 Lymph # (Auto) 0.4 L O'Brien # (Auto) 0.3 Eos # (Auto) 0.0 Baso # (Auto) 0.00 Platelet Evaluation pCO2 37 pO2 87.0 HCO3 22.4 ABG pH 7.39 ABG Total CO2 23.5 ABG O2 Saturation 98.2 H ABG O2 Content 12.7 L ABG Base Excess -2.3 L ABG Hemoglobin 9.3 L ABG Carboxyhemoglobin 1.6 H POC ABG HHb (Measured) 1.8 ABG Methemoglobin 0.8 ABG O2 Capacity 12.9 L Hgb O2 Saturation 95.9 FiO2 60.0 Sodium 145 Potassium 5.4 H Chloride 114 H Carbon Dioxide 24 Anion Gap 13 BUN 85 H Creatinine 2.0 H Est GFR ( Amer) 41 Est GFR (Non-Af Amer) 34 POC Glucose (mg/dL) Random Glucose 140 H Calcium 8.2 L Total Bilirubin 0.7 AST 717 H D ALT 746 H Alkaline Phosphatase 68 Total Protein 6.4 Albumin 3.4 Globulin 3.0 Albumin/Globulin Ratio 1.1 Ur Random Creatinine Ur Random Sodium Fingerstick Blood Sugar Results: 178 Review of Systems - Review of Systems Review of Systems: 12 point ROS unable to be ascertained due to clinical condition. Critical Care Progress Note - Extremities/Vascular Does the Patient have a Ash Catheter?: Yes Does the Patient need a Ash Catheter?: Yes - Nutrition Nutrition: Nutrition Category Date Time Status Heart Healthy Diet [DIET] Diets 07/03/18 Dinner Active Assessment/Plan - Assessment and Plan (Free Text) Assessment: 62yo male with PMHx of COPD, active smoker 1pk per day, HTN, DM, PVD, presents with ER with 2 day history of fever, chills, associated with cough that is non- productive. Yesterday, patient also developed SOB. Pt denies sick contacts, recent travel, CP, palpitations, CARTY, dizziness. In the ER, patient was noted to be hypoxic at 78%, on 2L NC, subsequently placed on BIPAP. No other constitutional symptoms. Pt was found to have increased work of breathing, RR 35-40, subsequently intubated. Placed on low tidal vol. ventilation. Patient was started on heparin drip given elevated troponin, and markedly diminished EF. Hep drip currently held secondary to thrombocytopenia. Neuro: - AAOx0, on sedation - pt. responds to painful stimuli - continue to monitor Pulm CAP and Flu A + 07/03/18 CXR: Stable pulm parenchymal infiltrates affecting R lung. Satisfactory position of endotracheal tube 07/03/18 CT chest: extensive alveolar infiltrate throughout R lung, consistent with PNA 07/04/18 CXR shows stable pulm parenchymal infiltrates, R>L. 07/03/18 ABG shows non anion gap metabolic acidosis 07/04/18 ABG shows metabolic acidosis 07/05/18 ABG shows improved metabolic acidosis 07/06/18 ABG shows worsening P/F ratio 07/06/18 CXR shows moderate cardiomegaly, severe vascular congestion showing slight improvement - duonebs seema q6 and PRN q2 - Solumedrol dose changed to 60mg IV Daily - Tamiflu renally dosed BID - Abx: Levaquin 500 q48hr and Merrem 500 BID for possible secondary bacterial infection - Urine Lg negative - F/U Strep - Procal 4.85 - ID eval: Dr. Fernandes - markos appreciated - Pulm consulted - markos Lance appreciated - Resp therapy Cardio HFrEF - BNP 11310, although CXR only shows one sided infilatrate - 07/03/18 echo report shows EF 14.2%, mildly dilated LV, systolic function severely impaired, akinetic septum, moderate TR and pulm HTN - Continue Dobutamine drip to 5 mcg for pressure support NSTEMI - Trop 0.48, 0.67, 0.67 - Cardiology consulted - Dr. Saxena. Cardiac cath on hold. Hold Lasix per cardio. - Hold IVF d/t poor EF. - Hold Heparin drip Chronic Thrombocytopenia - has received frequent intermittent transfusions as outpatient per medical record - 19 this AM, manual count 21. F/U HIT Antibody - Hem consult placed- Dr. Zenaida burrows appreciated Normocytic Anemia - Hgb 10.0 this AM, no obvious sign of bleed, f/u FOBT GI - NGT in place Uncontrolled DM - Hgb a1c 8.2, accuchecks ACHS - Diabetic education Lipid panel - TG elevated at 172 Shock liver Transaminitis AST /ALT 307/224 >543/409>592/570>717/746, normal Alk Phos. Hold hepatotoxic drugs Hep panel negative - 07/03/18 RUQ U/S shows hepatosplenomegaly PTX for Ppx Nephro - Improvement in OG 85/2.0, basline Cr 1.0 - Hyperkalemia increased to 5.4. - Currently holding IVF and Diuretics per cardio. Nephro input appreciated - Strict Is and Os- 2175, 2050, 1175 output last 3 days - Ash in place - Nephro consult - Dr. Rodriguez covering for Dr. Sullivan: - ATN in the setting of sepsis and mild hypotension; may have cardiorenal component in the setting of severely depressed biventricular dysfunction; has already received adequate amount of intravascular volume repletion and having good urine output - urine Cr 53, urine Na 49 MSK - Wound care consulted - Podiatry consulted- Dr. Isauro burrows appreciated - OT/PT eval ID - Fevers resolved., Resolved Leukocytosis 6.5 - Rapid influenza A positive > Tamiflu renally dosed at 30 mg BID - ID eval: Dr. Dom burrows appreciated - 1 dose Vanc given 07/05/18 - GI ppx: PTX - DVT ppx: Hep drip held in light of thrombocytopenia Patient seen, case reviewed, and plan approved by Dr. Ab Mitchell. Ismael Turner, PGY-1 <Junior Mitchell - Last Filed: 07/06/18 18:14> CCU Objective - Vital Signs / Intake & Output Intake and Output (Last 8hrs): Intake & Output 07/06/18 07/06/18 07/06/18 06:59 14:59 22:59 Intake Total 200 310 55 Balance 200 310 55 Intake: IV 200 310 55 - Medications Active Medications: Active Medications Generic Name Dose Route Start Last Admin Trade Name Freq PRN Reason Stop Dose Admin Albuterol/Ipratropium 3 ml 07/03/18 14:00 07/06/18 13:05 Duoneb 3 Mg/0.5 Mg (3 Ml) Ud IH 3 ml [id number] SEEMA Administration Albuterol/Ipratropium 3 ml 07/03/18 11:04 Duoneb 3 Mg/0.5 Mg (3 Ml) Ud IH Q2H PRN Shortness of Breath Meropenem/Sodium Chloride 500 mg in 50 mls @ 100 mls/hr 07/03/18 14:15 07/06/18 12:28 Merrem Iv 500 Mg/Ns 50 Ml IVPB 07/10/18 14:16 100 mls/hr Q12 SEEMA Administration Protocol Levofloxacin/Dextrose 500 mg in 100 mls @ 100 mls/hr 07/04/18 07:00 07/06/18 08:22 Levaquin 500mg IVPB 100 mls/hr Q48H SEEMA Administration Protocol Propofol 1,000 mg in 100 mls @ 2.79 mls/hr 07/03/18 16:11 07/06/18 15:26 Diprivan IV 50 mcg/kg/min .Q24H PRN 27.896 mls/hr TITRATE PER MD ORDER Administration Protocol 5 MCG/KG/MIN Fentanyl Citrate 1,000 mcg in 100 mls @ 10 mls/hr 07/03/18 16:44 07/06/18 14:08 Fentanyl Citrate/Sodium Chloride 1 Mg/100 Ml IV 100 mcg/hr .Q10H PRN 10 mls/hr TITRATE PER MD ORDER Titration Protocol 100 MCG/HR Dobutamine HCl/Dextrose 500 mg in 250 mls @ 14.628 mls/hr 07/04/18 10:40 07/06/18 07:12 Dobutamine/Dextrose 5% 500mg/250ml IV 14.628 mls/hr .Q17H6M PRN Administration SYSTOLIC BLOOD PRESSURE 5 MCG/KG/MIN Heparin Sodium/Sodium Chloride 25,000 units in 250 mls @ 7.802 mls/hr 07/05/18 01:00 07/05/18 08:58 Heparin 62426 Units/250ml 1/2 Normal Saline IV Not Given .Q24H SEEMA Protocol 8 UNITS/KG/HR Cisatracurium Besylate 200 mg/ 270 mls @ 3.95 mls/hr 07/06/18 15:44 07/06/18 17:22 Sodium Chloride IV 1 mcg/kg/min .Q24H PRN 7.9 mls/hr TITRATE PER MD ORDER Titration Protocol 0.5 MCG/KG/MIN Insulin Human Regular 0 units 07/03/18 22:00 07/06/18 17:25 Humulin R Med SC 5 units ACHS SEEMA Administration Protocol Methylprednisolone 60 mg 07/07/18 10:00 Solu-Medrol IVP DAILY SEEMA Oseltamivir Phosphate 30 mg 07/04/18 10:00 07/06/18 10:22 Tamiflu Susp PO 6 mg Q12 SEEMA Administration Pantoprazole Sodium 40 mg 07/03/18 14:15 07/06/18 10:21 Protonix Inj IVP 40 mg DAILY SEEMA Administration - Patient Studies Lab Studies: Microbiology Studies 07/04/18 02:30 Gram Stain - Final Sputum Sputum Culture - Final Yeast Species 07/03/18 09:45 Blood Culture - Preliminary Blood NO GROWTH AFTER 3 DAYS 07/03/18 09:25 Blood Culture - Preliminary Blood NO GROWTH AFTER 3 DAYS 07/05/18 08:45 Urine Culture - Final Urine No Growth (<1,000 CFU/ML) Lab Studies 07/06/18 07/06/18 07/06/18 Range/Units 14:30 13:50 12:01 WBC (4.5-11.0) 10^3/uL RBC (3.5-6.1) 10^6/uL Hgb (14.0-18.0) g/dL Hct (42.0-52.0) % MCV (80.0-105.0) fl MCH (25.0-35.0) pg MCHC (31.0-37.0) g/dl RDW (11.5-14.5) % Plt Count (120.0-450.0) 10^3/uL Gran % (50.0-68.0) % Lymph % (Auto) (22.0-35.0) % O'Brien % (Auto) (1.0-6.0) % Eos % (Auto) (1.5-5.0) % Baso % (Auto) (0.0-3.0) % Gran # (1.4-6.5) Lymph # (Auto) (1.2-3.4) O'Brien # (Auto) (0.1-0.6) Eos # (Auto) (0.0-0.7) Baso # (Auto) (0.0-2.0) K/mm3 PT (9.4-12.5) SECONDS INR APTT (25.1-36.5) Seconds pCO2 47 H (35-45) mm/Hg pO2 101.0 H (80-100) mm/Hg HCO3 21.1 (21-28) mmol/L ABG pH 7.26 L (7.35-7.45) ABG Total CO2 22.5 (22-28) mmol.L ABG O2 Saturation 98.4 H (95-98) % ABG O2 Content 13.8 L (15-23) ML/dl ABG Base Excess -5.8 L (-2.0-3.0) mmol/L ABG Hemoglobin 10.1 L (11.7-17.4) g/dL ABG Carboxyhemoglobin 1.6 H (0.5-1.5) % POC ABG HHb (Measured) 1.6 (0-5) % ABG Methemoglobin 1.1 (0.0-3.0) % ABG O2 Capacity 14.0 L (16-24) mL/dl Hgb O2 Saturation 95.7 (95.0-98.0) % FiO2 80.0 % Sodium (132-148) mmol/L Potassium (3.6-5.0) mmol/L Chloride (98-107) mmol/L Carbon Dioxide (21-33) mmol/L Anion Gap (10-20) BUN (7-21) mg/dL Creatinine (0.8-1.5) mg/dl Est GFR ( Amer) Est GFR (Non-Af Amer) POC Glucose (mg/dL) 129 H (65-110) mg/dL Random Glucose (70-110) mg/dL Calcium (8.4-10.5) mg/dL Total Bilirubin (0.2-1.3) mg/dL AST (17-59) U/L ALT (7-56) U/L Alkaline Phosphatase (38-126) U/L Total Protein (5.8-8.3) g/dL Albumin (3.0-4.8) g/dL Globulin gm/dL Albumin/Globulin Ratio (1.1-1.8) Stool Occult Blood Negative (NEGATIVE) 07/06/18 07/06/18 07/06/18 Range/Units 11:54 09:25 08:15 WBC (4.5-11.0) 10^3/uL RBC (3.5-6.1) 10^6/uL Hgb (14.0-18.0) g/dL Hct (42.0-52.0) % MCV (80.0-105.0) fl MCH (25.0-35.0) pg MCHC (31.0-37.0) g/dl RDW (11.5-14.5) % Plt Count (120.0-450.0) 10^3/uL Gran % (50.0-68.0) % Lymph % (Auto) (22.0-35.0) % O'Brien % (Auto) (1.0-6.0) % Eos % (Auto) (1.5-5.0) % Baso % (Auto) (0.0-3.0) % Gran # (1.4-6.5) Lymph # (Auto) (1.2-3.4) O'Brien # (Auto) (0.1-0.6) Eos # (Auto) (0.0-0.7) Baso # (Auto) (0.0-2.0) K/mm3 PT 11.5 (9.4-12.5) SECONDS INR 1.00 APTT 18.7 L (25.1-36.5) Seconds pCO2 (35-45) mm/Hg pO2 (80-100) mm/Hg HCO3 (21-28) mmol/L ABG pH (7.35-7.45) ABG Total CO2 (22-28) mmol.L ABG O2 Saturation (95-98) % ABG O2 Content (15-23) ML/dl ABG Base Excess (-2.0-3.0) mmol/L ABG Hemoglobin (11.7-17.4) g/dL ABG Carboxyhemoglobin (0.5-1.5) % POC ABG HHb (Measured) (0-5) % ABG Methemoglobin (0.0-3.0) % ABG O2 Capacity (16-24) mL/dl Hgb O2 Saturation (95.0-98.0) % FiO2 % Sodium (132-148) mmol/L Potassium (3.6-5.0) mmol/L Chloride (98-107) mmol/L Carbon Dioxide (21-33) mmol/L Anion Gap (10-20) BUN (7-21) mg/dL Creatinine (0.8-1.5) mg/dl Est GFR ( Amer) Est GFR (Non-Af Amer) POC Glucose (mg/dL) 151 H 113 H (65-110) mg/dL Random Glucose (70-110) mg/dL Calcium (8.4-10.5) mg/dL Total Bilirubin (0.2-1.3) mg/dL AST (17-59) U/L ALT (7-56) U/L Alkaline Phosphatase (38-126) U/L Total Protein (5.8-8.3) g/dL Albumin (3.0-4.8) g/dL Globulin gm/dL Albumin/Globulin Ratio (1.1-1.8) Stool Occult Blood (NEGATIVE) 07/06/18 07/06/18 07/06/18 Range/Units 05:30 05:30 05:10 WBC 6.5 (4.5-11.0) 10^3/uL RBC 3.79 (3.5-6.1) 10^6/uL Hgb 10.0 L (14.0-18.0) g/dL Hct 32.3 L (42.0-52.0) % MCV 85.2 (80.0-105.0) fl MCH 26.4 (25.0-35.0) pg MCHC 31.0 (31.0-37.0) g/dl RDW 17.2 H (11.5-14.5) % Plt Count 19 L* (120.0-450.0) 10^3/uL Gran % 90.6 H (50.0-68.0) % Lymph % (Auto) 5.4 L (22.0-35.0) % O'Brien % (Auto) 4.0 (1.0-6.0) % Eos % (Auto) 0.0 L (1.5-5.0) % Baso % (Auto) 0.0 (0.0-3.0) % Gran # 5.88 (1.4-6.5) Lymph # (Auto) 0.4 L (1.2-3.4) O'Brien # (Auto) 0.3 (0.1-0.6) Eos # (Auto) 0.0 (0.0-0.7) Baso # (Auto) 0.00 (0.0-2.0) K/mm3 PT (9.4-12.5) SECONDS INR APTT (25.1-36.5) Seconds pCO2 37 (35-45) mm/Hg pO2 87.0 (80-100) mm/Hg HCO3 22.4 (21-28) mmol/L ABG pH 7.39 (7.35-7.45) ABG Total CO2 23.5 (22-28) mmol.L ABG O2 Saturation 98.2 H (95-98) % ABG O2 Content 12.7 L (15-23) ML/dl ABG Base Excess -2.3 L (-2.0-3.0) mmol/L ABG Hemoglobin 9.3 L (11.7-17.4) g/dL ABG Carboxyhemoglobin 1.6 H (0.5-1.5) % POC ABG HHb (Measured) 1.8 (0-5) % ABG Methemoglobin 0.8 (0.0-3.0) % ABG O2 Capacity 12.9 L (16-24) mL/dl Hgb O2 Saturation 95.9 (95.0-98.0) % FiO2 60.0 % Sodium 145 (132-148) mmol/L Potassium 5.4 H (3.6-5.0) mmol/L Chloride 114 H (98-107) mmol/L Carbon Dioxide 24 (21-33) mmol/L Anion Gap 13 (10-20) BUN 85 H (7-21) mg/dL Creatinine 2.0 H (0.8-1.5) mg/dl Est GFR ( Amer) 41 Est GFR (Non-Af Amer) 34 POC Glucose (mg/dL) (65-110) mg/dL Random Glucose 140 H (70-110) mg/dL Calcium 8.2 L (8.4-10.5) mg/dL Total Bilirubin 0.7 (0.2-1.3) mg/dL AST 717 H D (17-59) U/L ALT 746 H (7-56) U/L Alkaline Phosphatase 68 (38-126) U/L Total Protein 6.4 (5.8-8.3) g/dL Albumin 3.4 (3.0-4.8) g/dL Globulin 3.0 gm/dL Albumin/Globulin Ratio 1.1 (1.1-1.8) Stool Occult Blood (NEGATIVE) 07/05/18 Range/Units 21:23 WBC (4.5-11.0) 10^3/uL RBC (3.5-6.1) 10^6/uL Hgb (14.0-18.0) g/dL Hct (42.0-52.0) % MCV (80.0-105.0) fl MCH (25.0-35.0) pg MCHC (31.0-37.0) g/dl RDW (11.5-14.5) % Plt Count (120.0-450.0) 10^3/uL Gran % (50.0-68.0) % Lymph % (Auto) (22.0-35.0) % O'Brien % (Auto) (1.0-6.0) % Eos % (Auto) (1.5-5.0) % Baso % (Auto) (0.0-3.0) % Gran # (1.4-6.5) Lymph # (Auto) (1.2-3.4) O'Brien # (Auto) (0.1-0.6) Eos # (Auto) (0.0-0.7) Baso # (Auto) (0.0-2.0) K/mm3 PT (9.4-12.5) SECONDS INR APTT (25.1-36.5) Seconds pCO2 (35-45) mm/Hg pO2 (80-100) mm/Hg HCO3 (21-28) mmol/L ABG pH (7.35-7.45) ABG Total CO2 (22-28) mmol.L ABG O2 Saturation (95-98) % ABG O2 Content (15-23) ML/dl ABG Base Excess (-2.0-3.0) mmol/L ABG Hemoglobin (11.7-17.4) g/dL ABG Carboxyhemoglobin (0.5-1.5) % POC ABG HHb (Measured) (0-5) % ABG Methemoglobin (0.0-3.0) % ABG O2 Capacity (16-24) mL/dl Hgb O2 Saturation (95.0-98.0) % FiO2 % Sodium (132-148) mmol/L Potassium (3.6-5.0) mmol/L Chloride (98-107) mmol/L Carbon Dioxide (21-33) mmol/L Anion Gap (10-20) BUN (7-21) mg/dL Creatinine (0.8-1.5) mg/dl Est GFR ( Amer) Est GFR (Non-Af Amer) POC Glucose (mg/dL) 178 H (65-110) mg/dL Random Glucose (70-110) mg/dL Calcium (8.4-10.5) mg/dL Total Bilirubin (0.2-1.3) mg/dL AST (17-59) U/L ALT (7-56) U/L Alkaline Phosphatase (38-126) U/L Total Protein (5.8-8.3) g/dL Albumin (3.0-4.8) g/dL Globulin gm/dL Albumin/Globulin Ratio (1.1-1.8) Stool Occult Blood (NEGATIVE) Laboratory Results - last 24 hr 07/05/18 07/06/18 07/06/18 21:23 05:10 05:30 WBC 6.5 RBC 3.79 Hgb 10.0 L Hct 32.3 L MCV 85.2 MCH 26.4 MCHC 31.0 RDW 17.2 H Plt Count 19 L* Gran % 90.6 H Lymph % (Auto) 5.4 L O'Brien % (Auto) 4.0 Eos % (Auto) 0.0 L Baso % (Auto) 0.0 Gran # 5.88 Lymph # (Auto) 0.4 L O'Brien # (Auto) 0.3 Eos # (Auto) 0.0 Baso # (Auto) 0.00 PT INR APTT pCO2 37 pO2 87.0 HCO3 22.4 ABG pH 7.39 ABG Total CO2 23.5 ABG O2 Saturation 98.2 H ABG O2 Content 12.7 L ABG Base Excess -2.3 L ABG Hemoglobin 9.3 L ABG Carboxyhemoglobin 1.6 H POC ABG HHb (Measured) 1.8 ABG Methemoglobin 0.8 ABG O2 Capacity 12.9 L Hgb O2 Saturation 95.9 FiO2 60.0 Sodium Potassium Chloride Carbon Dioxide Anion Gap BUN Creatinine Est GFR ( Amer) Est GFR (Non-Af Amer) POC Glucose (mg/dL) 178 H Random Glucose Calcium Total Bilirubin AST ALT Alkaline Phosphatase Total Protein Albumin Globulin Albumin/Globulin Ratio Stool Occult Blood 07/06/18 07/06/18 07/06/18 05:30 08:15 09:25 WBC RBC Hgb Hct MCV MCH MCHC RDW Plt Count Gran % Lymph % (Auto) O'Brien % (Auto) Eos % (Auto) Baso % (Auto) Gran # Lymph # (Auto) O'Brien # (Auto) Eos # (Auto) Baso # (Auto) PT INR APTT pCO2 pO2 HCO3 ABG pH ABG Total CO2 ABG O2 Saturation ABG O2 Content ABG Base Excess ABG Hemoglobin ABG Carboxyhemoglobin POC ABG HHb (Measured) ABG Methemoglobin ABG O2 Capacity Hgb O2 Saturation FiO2 Sodium 145 Potassium 5.4 H Chloride 114 H Carbon Dioxide 24 Anion Gap 13 BUN 85 H Creatinine 2.0 H Est GFR ( Amer) 41 Est GFR (Non-Af Amer) 34 POC Glucose (mg/dL) 113 H 151 H Random Glucose 140 H Calcium 8.2 L Total Bilirubin 0.7 AST 717 H D ALT 746 H Alkaline Phosphatase 68 Total Protein 6.4 Albumin 3.4 Globulin 3.0 Albumin/Globulin Ratio 1.1 Stool Occult Blood 07/06/18 07/06/18 07/06/18 11:54 12:01 13:50 WBC RBC Hgb Hct MCV MCH MCHC RDW Plt Count Gran % Lymph % (Auto) O'Brien % (Auto) Eos % (Auto) Baso % (Auto) Gran # Lymph # (Auto) O'Brien # (Auto) Eos # (Auto) Baso # (Auto) PT 11.5 INR 1.00 APTT 18.7 L pCO2 pO2 HCO3 ABG pH ABG Total CO2 ABG O2 Saturation ABG O2 Content ABG Base Excess ABG Hemoglobin ABG Carboxyhemoglobin POC ABG HHb (Measured) ABG Methemoglobin ABG O2 Capacity Hgb O2 Saturation FiO2 Sodium Potassium Chloride Carbon Dioxide Anion Gap BUN Creatinine Est GFR ( Amer) Est GFR (Non-Af Amer) POC Glucose (mg/dL) 129 H Random Glucose Calcium Total Bilirubin AST ALT Alkaline Phosphatase Total Protein Albumin Globulin Albumin/Globulin Ratio Stool Occult Blood Negative 07/06/18 14:30 WBC RBC Hgb Hct MCV MCH MCHC RDW Plt Count Gran % Lymph % (Auto) O'Brien % (Auto) Eos % (Auto) Baso % (Auto) Gran # Lymph # (Auto) O'Brien # (Auto) Eos # (Auto) Baso # (Auto) PT INR APTT pCO2 47 H pO2 101.0 H HCO3 21.1 ABG pH 7.26 L ABG Total CO2 22.5 ABG O2 Saturation 98.4 H ABG O2 Content 13.8 L ABG Base Excess -5.8 L ABG Hemoglobin 10.1 L ABG Carboxyhemoglobin 1.6 H POC ABG HHb (Measured) 1.6 ABG Methemoglobin 1.1 ABG O2 Capacity 14.0 L Hgb O2 Saturation 95.7 FiO2 80.0 Sodium Potassium Chloride Carbon Dioxide Anion Gap BUN Creatinine Est GFR ( Amer) Est GFR (Non-Af Amer) POC Glucose (mg/dL) Random Glucose Calcium Total Bilirubin AST ALT Alkaline Phosphatase Total Protein Albumin Globulin Albumin/Globulin Ratio Stool Occult Blood Radiology Impressions: Radiology Impressions Chest X-Ray 07/06/18 06:00 IMPRESSION: Moderate cardiomegaly with severe vascular congestion showing slight improvement Chest X-Ray 07/06/18 13:42 IMPRESSION: Improved infiltrate on the right no change on the left. Critical Care Progress Note - Nutrition Nutrition: Nutrition Category Date Time Status NPO Diet [DIET] Diets 07/06/18 Breakfast Ordered Addendum Addendum: 07/06/18 18:12 ICU Attending Addendum Patient seen and examined. Case reviewed on round with housestaff. Agree with resident note above with the following additions/exceptions 62M smoker with COPD, HTN, DM, PVD admitted with septic shock from influ A resulting in multi organ failure. Intubated for resp support and hypoxia. Cont low Vt ventilation as is worsening hypoxia today recruitement maneuvers for ARDS added on including paralyzing today f/u ABG cont tamiflu x 5 days as well empiric tx for superimposed PNA abx as per ID Elevated TNI likely demand from shock cont pressors for now on dobut with EF 15% hep drip held thrombocytopenia mmt as per hem onc OG likely from shock as well, cont to monitor urine output improving trend transaminits Rest of care above Junior Mitchell MD Pulmonary Critical Care Attending Critical Care Time: 33 mins
[2018-07-06] MEDS ORDERED: Sodium Chloride 0.9% 1,000 ML IV SCH (07:45)
[2018-07-06] MEDS: Insulin Reg-MEDIUM-Coverage SC SCH ×4 (08:16→22:21)
[2018-07-06] MEDS: levoFLOXacin 500 mg in D5W 500 MG/100 ML BAG IVPB SCH (08:22)
--- NOTE | 2018-07-06 09:17 | PN ---
SUBJECTIVE: The patient was seen and examined at bedside in the ICU. No acute events overnight. He remains intubated, sedated and largely clinically unchanged. OBJECTIVE: VITAL SIGNS: Temperature 100.2, pulse 96, blood pressure 133/66, respiratory rate 20, oxygen saturation 99% in 60% FiO2. GENERAL: Intubated and sedated. HEENT: PERRL, ETT in place. Scant dry blood at the oral mucosa. NECK: No JVD. LUNGS: Coarse breath sounds anteriorly with scattered rhonchi and bibasilar crackles. CARDIOVASCULAR: Regular rate and rhythm. Normal S1, S2. ABDOMEN: Normoactive bowel sounds. Soft, nontender, nondistended. EXTREMITIES: 1+ edema in all extremities. NEUROLOGIC: The patient remains sedated. LABORATORY DATA: WBC 6.5 with 91% neutrophils, hemoglobin 10, hematocrit 32, platelets 19. Sodium 145, potassium 5.4, chloride 114, bicarb 24, BUN 85, creatinine 2, glucose 140. AST 717, ALT 746, alk phos 63, T bili 0.7. Blood cultures with no growth to date. Influenza A positive. ASSESSMENT: The patient is a 62-year-old man with multiple medical comorbidities who was admitted to the ICU s/p intubation for impending respiratory failure secondary to severe sepsis secondary to community-acquired pneumonia with influenza, acute systolic heart failure, NSTEMI, OG and transaminitis. PLAN: 1. Acute hypoxic respiratory failure s/p intubation. Input from Dr. Rai and ICU team appreciated. Continue with care as per ICU team. 2. Severe sepsis secondary to community-acquired pneumonia with influenza. Input from Dr. Fernandes appreciated. Continue with current antimicrobials. 3. NSTEMI. Input from Dr. Saxena appreciated and the patient is tentatively scheduled for cardiac catheterization today. Heparin drip remains on hold given his acute drop in hemoglobin and concern for possible occult bleed. 4. Acute systolic heart failure. Continue with Dobutamine for inotropic support. As above, cardiac catheterization pending to rule out underlying coronary disease as the precipitating factor. 5. OG, consider secondary to ATN, improving. Input from Dr. Rodriguez appreciated. Continue to monitor strict I&O's, renally dose medications and avoid nephrotoxins. 6. Transaminitis, likely secondary to shock liver in the setting of severe sepsis. Abdominal ultrasound reviewed and unremarkable. Hepatitis panel was negative. We will continue to monitor. 7. Thrombocytopenia secondary to radiologic phenomenon. Evaluation with Dr. Estevez is pending. A HIT antibody is pending. 8. Normocytic anemia. Stool occult blood pending. Anticoagulation therapy on hold until occult bleed is ruled out. Continue to monitor CBC daily. 9. Type 2 diabetes mellitus. Continue medium-dose insulin sliding scale for coverage. 10. Hypertension. Antihypertensives remain on hold given his tenuous hemodynamics. 11. Pseudogout. 12. Anxiety disorder. 13. GERD. Continue Protonix 40 mg p.o. daily. 14. Prophylaxis. Continue with Protonix for GI prophylaxis. Continue with SCD's for DVT prophylaxis. CODE STATUS: Full code. Yassine Martinez MD [facility]
[2018-07-06] MEDS ORDERED: Vancomycin 2 GM in Sodium Chloride 0.9% 500 ML IVPB ONE (09:20)
--- NOTE | 2018-07-06 09:22 | RAD ---
Date of service: 07/06/2018 HISTORY: intubated, intravascular fluid status COMPARISON: 07/04/2018 FINDINGS: LUNGS: No active pulmonary disease. PLEURA: No significant pleural effusion identified, no pneumothorax apparent. CARDIOVASCULAR: No aortic atherosclerotic calcification present. Moderate cardiomegaly severe vascular congestion. Slight improvement from prior study OSSEOUS STRUCTURES: No significant abnormalities. VISUALIZED UPPER ABDOMEN: Normal. OTHER FINDINGS: Endotracheal tube and nasogastric tube in satisfactory position IMPRESSION: Moderate cardiomegaly with severe vascular congestion showing slight improvement
[2018-07-06] MEDS: Oseltamivir 6 MG/ML PO SCH ×2 (10:22→22:28)
[2018-07-06] MEDS: MethylPREDNISolone 40 mg Vial IVP SCH (10:22)
[2018-07-06] MEDS ORDERED: DiphenhydrAMINE 50 mg/ml Inj IVP STA (11:17)
[2018-07-06 12:11] LABS: PROTHROMBIN TIME 11.5 SECONDS (9.4-12.5)
[2018-07-06 12:12] LABS: PARTIAL THROMBOPLASTIN TIME 18.7 Seconds (25.1-36.5)
--- NOTE | 2018-07-06 12:12 | PN ---
DATE: 07/06/2018 CARDIOLOGY FOLLOWUP SUBJECTIVE: The patient remains on a ventilator with labored breathing. PHYSICAL EXAMINATION: VITAL SIGNS: Blood pressure 133/66, heart rate is sinus tachycardia between 100-110. NECK: Negative JVD. LUNGS: Decreased breath sounds bilaterally. HEART: Reveal S1, S2. EXTREMITIES: Without change. LABORATORY DATA: Hemoglobin is 10.1. The platelet count is down to 19,000 with a manual count of 21,000, BUN and creatinine is 85 and 2.0 with glucose of 140. IMPRESSION: 1. Respiratory failure. 2. Non-ST elevation myocardial infarction. 3. Ischemic dilated cardiomyopathy. 4. Sepsis. 5. Renal insufficiency. 6. Severe thrombocytopenia. 7. Diabetes mellitus. Given these findings, the patient's platelet count will not allow for cardiac catheterization today. We continue on the IV dobutamine. I agree with withholding back on any diuretics. Benjamin Saxena MD
--- NOTE | 2018-07-06 12:13 | PN ---
DATE: 07/06/2018 PULMONARY PROGRESS NOTE SUBJECTIVE: The patient was seen and examined in intensive care unit on a ventilator. He remains ventilator dependent. PHYSICAL EXAMINATION: VITAL SIGNS: Are as follows, his temperature is 100, pulse is 112, he is on mechanical ventilation. HEENT: Head, normocephalic and atraumatic. NECK: Supple. There is no jugular vein distention. CARDIOVASCULAR: S1 and S2. No S3, regular. PULMONARY: Diminished breath sounds bilaterally with no rhonchi, rales or wheezing. GASTROINTESTINAL: Soft, nontender, no organomegaly. EXTREMITIES: No pedal edema. NEUROLOGIC: Unable to evaluate. The patient is sedated and ventilated. LABORATORY DATA: His arterial blood gas is pH of 7.39, pCO2 of 37, and pO2 of 87, still on 60% FiO2. His sodium is 145, potassium 5.4, chloride 114. His blood sugars are elevated. His liver enzymes are elevated to 717 and 746. CBC shows WBC is 6.5, hemoglobin of 10, and platelet count of 19,000. DIAGNOSTIC DATA: Chest x-ray was reviewed by me, shows mild cardiomegaly. Diaphragms are in normal position. There is diffuse bilateral infiltrates, more prominent in the parahilar regions, CHF versus ARDS was no improvement over the last 48 hours. ASSESSMENT: 1. Acute respiratory failure. 2. Influenza A disease. 3. Acute respiratory distress syndrome. 4. Congestive heart failure. 5. Severe thrombocytopenia. PLAN: The patient will continue with triple antibiotic administration as well as Tamiflu for his fever. He is on intravenous steroids as well as nebulizer treatments. His oxygenation improved only slightly and liver enzymes remain elevated. His condition remains extremely critical. He will remain intubated. No weaning attempt can be made until chest x-ray improves and oxygen requirements decrease. Elkin Rai MD MTDD
[2018-07-06] MEDS: MEROPENEM 500 MG in NS 500 MG/50 ML BAG IVPB SCH ×2 (12:28→22:07)
--- NOTE | 2018-07-06 13:10 | CP.PCM.PN ---
Subjective - Date & Time of Evaluation Date of Evaluation: 07/06/18 Time of Evaluation: 11:50 - Subjective Subjective: Continues to be on the ventilator, in some distress, still having low grade fevers intermittently. Objective - Vital Signs/Intake and Output Vital Signs (last 24 hours): Temp Pulse Resp BP Pulse Ox 98.6 F 94 H 19 118/56 L 100 07/05/18 14:00 07/05/18 18:00 07/05/18 08:27 07/05/18 14:00 07/05/18 14:00 Intake and Output: 07/06/18 07/06/18 06:59 18:59 Intake Total 300 Balance 300 - Medications Medications: Current Medications Albuterol/Ipratropium (Duoneb 3 Mg/0.5 Mg (3 Ml) Ud) 3 ml IH [id number] JHON Last Admin: 07/06/18 01:35 Dose: 3 ml Albuterol/Ipratropium (Duoneb 3 Mg/0.5 Mg (3 Ml) Ud) 3 ml IH Q2H PRN PRN Reason: Shortness of Breath Meropenem/Sodium Chloride (Merrem Iv 500 Mg/Ns 50 Ml) 500 mg in 50 mls @ 100 mls/hr IVPB Q12 JHON; Protocol Stop: 07/10/18 14:16 Last Admin: 07/05/18 21:34 Dose: 100 mls/hr Levofloxacin/Dextrose (Levaquin 500mg) 500 mg in 100 mls @ 100 mls/hr IVPB Q48H JHON; Protocol Last Admin: 07/04/18 06:29 Dose: 100 mls/hr Propofol (Diprivan) 1,000 mg in 100 mls @ 2.79 mls/hr IV .Q24H PRN; Protocol PRN Reason: TITRATE PER MD ORDER Last Admin: 07/06/18 04:31 Dose: 40 mcg/kg/min, 22.317 mls/hr Fentanyl Citrate (Fentanyl Citrate/Sodium Chloride 1 Mg/100 Ml) 1,000 mcg in 100 mls @ 10 mls/hr IV .Q10H PRN; Protocol PRN Reason: TITRATE PER MD ORDER Last Admin: 07/06/18 04:26 Dose: 50 mcg/hr, 5 mls/hr Dobutamine HCl/Dextrose (Dobutamine/Dextrose 5% 500mg/250ml) 500 mg in 250 mls @ 14.628 mls/hr IV .Q17H6M PRN PRN Reason: SYSTOLIC BLOOD PRESSURE Last Admin: 07/05/18 12:02 Dose: 14.628 mls/hr Heparin Sodium/Sodium Chloride (Heparin 47231 Units/250ml 1/2 Normal Saline) 25,000 units in 250 mls @ 7.802 mls/hr IV .Q24H JHON; Protocol Last Admin: 07/05/18 08:58 Dose: Not Given Insulin Human Regular (Humulin R Med) 0 units SC ACHS JHON; Protocol Last Admin: 07/05/18 22:06 Dose: Not Given Methylprednisolone (Solu-Medrol) 40 mg IVP Q12 [facility] Last Admin: 07/05/18 21:36 Dose: 40 mg Oseltamivir Phosphate (Tamiflu Susp) 30 mg PO Q12 [facility] Last Admin: 07/05/18 22:00 Dose: 30 mg Pantoprazole Sodium (Protonix Inj) 40 mg IVP DAILY [facility] Last Admin: 07/05/18 09:00 Dose: 40 mg - Labs Labs: 07/06/18 05:30 07/06/18 05:30 PT 15.2 SECONDS (9.4-12.5) H 07/05/18 05:00 INR 1.31 07/05/18 05:00 APTT 70.5 Seconds (25.1-36.5) H 07/05/18 05:00 - Constitutional Appears: In Acute Distress, Other (intubated) - ENT Exam Additional comments: ET tube in place - Respiratory Exam Respiratory Exam: Decreased Breath Sounds - Cardiovascular Exam Cardiovascular Exam: +S1, +S2 - GI/Abdominal Exam GI & Abdominal Exam: Soft. absent: Tenderness Assessment and Plan - Assessment and Plan (Free Text) Plan: Assessment Severe sepsis with hypoxic respiratory failure and acute on chronic renal fail ure as well as thrombocytopenia due to severe right sided community-acquired pneumonia on top of viral infection with Influenza A significant and active smoking history COPD HTN DM peripheral vascular disease history of right elbow septic arthritis history of right upper extremity cellulitis Plan we will continue intermittent Vancomycin (given another dose today and will get Vanco random level tomorrow, still at risk for Staph because of Influenza), continue renally-adjusted Merrem and renally-adjusted Levaquin day 4; reviewed CT chest patient is critically ill and continues to be in the ICU for close observation and aggressive management
--- NOTE | 2018-07-06 13:57 | PN ---
DATE: 07/06/2018 SUBJECTIVE: The patient is currently seen in CCU, bed #6. The patient remains intubated. He is unresponsive. He remains on a Diprivan drip. The patient is being restrained. The patient continues on ionotropic agents and antibiotic therapy. He is being treated for community-acquired pneumonia and influenza pneumonia. MEDICATIONS: Medication list reviewed. The patient is on Diprivan, Dobutrex, DuoNeb, fentanyl, heparin is on hold because of his thrombocytopenia, sliding scale insulin, Levaquin, meropenem, Protonix, normal saline at 50 mL an hour, Solu-Medrol, Tamiflu, and IV vancomycin. OBJECTIVE: INTAKE/OUTPUT: Intake is 1306, output is 1175, all of which was urine. The patient remains intubated. He is unresponsive, on a ventilator, being sedated. VITAL SIGNS: Blood pressure is 133/66, heart rate is regular at 112. FiO2 is 60%. Pulse ox is 99%. Temperature is 98.6. HEENT: Shows eyes to be closed. The patient is intubated. NECK: No neck vein distention. CHEST: Scattered rhonchi. Scattered rales. Slight decreased breath sounds at the bases. CARDIOVASCULAR: Shows a regular rate and rhythm with MR/TR/PI. No S3, no S4, no rub. ABDOMEN: Soft. Bowel sounds normal, no rebound, guarding or masses. EXTREMITIES: Show no cyanosis, clubbing or edema. He does have puffiness of his upper extremity with no pitting edema. NEUROLOGIC: Unobtainable as the patient remains sedated on a ventilator. LABORATORY DATA AND IMAGING: CBC: White blood cell count today 6.5, hemoglobin stable at 10.0, platelet count is low at 19,000 with a manual platelet count of 21,000. Coags: PT of 15.2 with an INR of 1.31. PTT is likely back to control as heparin was discontinued. Blood gas today: pH 7.39, pCO2 of 37 with a bicarbonate level of 22 and a pO2 of 87. Chemistries: Potassium is 5.4 today. BUN is 85 with a creatinine of 2.0. Sodium was 145. Glucose is 140. Calcium is 8.2. Magnesium level was 2.2 from several days ago. Liver enzymes remain elevated and continue to increase. Albumin level is 3.4. Urines were remarkable for red blood cells, only a few white blood cells. Urine creatinine, urine sodium showed a fractional secretion of sodium of greater than 1%. Hepatitis serologies were negative. Influenza serologies were positive. Legionella in the urine was negative. Microbiology: Sputum was positive for yeast. Urine cultures are negative, blood cultures are negative at 3 days. ASSESSMENT: 1. Acute renal failure secondary to acute tubular necrosis in the setting of sepsis, severe cardiomyopathy, possible non-ST elevation myocardial infarction. The patient's renal ultrasound was unremarkable. The patient is felt to have nonoliguric acute tubular necrosis. He will be supported with IV fluid hydration. He does have mild hyperkalemia today and if necessary, this will need to be treated if hyperkalemia should worsen. He is not receiving any medications that would raise his potassium. 2. History of sepsis with community-acquired pneumonia and influenza. The patient remains on combination antiviral and antibacterial medications. 3. History of severe cardiomyopathy, ejection fraction of 14% with MR/TR/PI in the setting of mild elevation of his troponin levels, possible non-ST elevation myocardial infarction. The patient had been seen by Cardiology. 4. Acute respiratory failure. Currently intubated. Discussed with CCU staff. We will continue to monitor weaning parameters. 5. Severe thrombocytopenia. Heparin-induced thrombocytopenia antibody is pending. The patient is off heparin. 6. History of Dim-jielgwa-[id number] diabetes. The patient remains on sliding scale insulin. 7. Past history of hypertension. Blood pressure control is acceptable. The patient is currently receiving no blood pressure medications. 8. History of chronic obstructive pulmonary disease, stable. 9. Elevated LFTs. Workup in progress. 10. Hepatitis serologies are negative. Liver ultrasound did show hepatosplenomegaly. PLAN: 1. Continue to monitor renal parameters. His BUN has risen from 79 to 85, creatinine has dropped from 2.8 down to 2.0. He is currently in nonoliguric ATN. Continue to monitor electrolytes closely and treat hyperkalemia as necessary. 2. Continue ionotropic support with Dobutrex in light of his severe cardiomyopathy. Cardiology is following the patient. 3. Attempt weaning parameters with the help of eventual extubation. 4. Monitor platelet count closely. P.r.n. transfuse platelets. Rule out heparin-induced thrombocytopenia. 5. Continue to monitor the patient closely in the CCU. 6. No dialysis is necessary at this point in time. Greater than 35 minutes spent in the care of this critically ill patient. Margarito Mcnamara MD
--- NOTE | 2018-07-06 14:09 | RAD ---
Date of service: 07/06/2018 HISTORY: Intubated, hypoxic COMPARISON: Earlier same day FINDINGS: LUNGS: Improved infiltrate on the right no change on the left. PLEURA: No significant pleural effusion identified, no pneumothorax apparent. CARDIOVASCULAR: No aortic atherosclerotic calcification present. Normal cardiac size. No pulmonary vascular congestion. OSSEOUS STRUCTURES: No significant abnormalities. VISUALIZED UPPER ABDOMEN: Normal. OTHER FINDINGS: Endotracheal tube and nasogastric tube unchanged IMPRESSION: Improved infiltrate on the right no change on the left.
[2018-07-06 14:33] LABS: ARTERIAL BLOOD GAS HCO3 21.1 mmol/L (21-28); ARTERIAL BLOOD GAS HEMOGLOBIN 10.1 g/dL (11.7-17.4); ARTERIAL BLOOD GAS O2 CONTENT 13.8 ML/dl (15-23); ARTERIAL BLOOD GAS O2 SAT 98.4 % (95-98); ARTERIAL BLOOD GAS PCO2 47 mm/Hg (35-45); ARTERIAL BLOOD GAS PH 7.26 (7.35-7.45); ARTERIAL BLOOD GAS TCO2 22.5 mmol.L (22-28)
[2018-07-06] MEDS: Cisatracurium Besylate 200 MG in Sodium Chloride 0.9% 250 ML IV PRN (16:50)
[2018-07-06 19:04] LABS: BASO # 0.01 K/mm3 (0.0-2.0); BASO % 0.2 % (0.0-3.0); GRAN # 5.86 (1.4-6.5); GRAN % 91.1 % (50.0-68.0); HEMOGLOBIN 10.2 g/dL (14.0-18.0); LYMPH # 0.4 (1.2-3.4); LYMPH % 6.2 % (22.0-35.0); MEAN CELL VOLUME 85.8 fl (80.0-105.0); MEAN CORPUSCULAR HEMOGLOBIN 26.4 pg (25.0-35.0); MEAN CORPUSCULAR HGB CONC 30.8 g/dl (31.0-37.0); MONO # 0.2 (0.1-0.6); MONO % 2.5 % (1.0-6.0); RBC 3.86 10^6/uL (3.5-6.1); RED CELL DISTRIBUTION WIDTH 17.3 % (11.5-14.5); WHITE BLOOD COUNT 6.4 10^3/uL (4.5-11.0)
[2018-07-06 19:33] LABS: PLATELET COUNT 13 10^3/uL (120.0-450.0); PLATELET COUNT MANUAL 15 K/mm3 (120-450)
[2018-07-06 19:36] LABS: BAND 3 % (0-2); LYMPHOCYTE 2 % (22.0-35.0); METAMYELOCYTE 2 %; MONOCYTE 5 % (1.0-6.0); NEUTROPHIL 88 % (50.0-70.0)
[2018-07-06 19:37] LABS: ANISOCYTOSIS SLIGHT; LARGE PLATELETS PRESENT; PLATELET ESTIMATE LOW (NORMAL); POIKILOCYTOSIS SLIGHT
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
[2018-07-07] MEDS: Albuterol-Ipratrop 3 mg / 0.5 (3 ml) UD IH SCH ×4 (01:32→20:22)
[2018-07-07] MEDS: DOBUTamine 500mg/250ml D5W 500 MG/250 ML BAG IV PRN (03:41)
[2018-07-07 05:42] LABS: ARTERIAL BLOOD GAS HCO3 21.9 mmol/L (21-28); ARTERIAL BLOOD GAS HEMOGLOBIN 9.8 g/dL (11.7-17.4); ARTERIAL BLOOD GAS O2 CAPACITY 13.9 mL/dl (16-24); ARTERIAL BLOOD GAS O2 CONTENT 13.8 ML/dl (15-23); ARTERIAL BLOOD GAS O2 SAT 99.5 % (95-98); ARTERIAL BLOOD GAS PCO2 69 mm/Hg (35-45)
[2018-07-07 06:01] LABS: ARTERIAL BLOOD GAS PH 7.11 (7.35-7.45)
--- NOTE | 2018-07-07 07:38 | CP.CCUPN ---
<Ismael Turner - Last Filed: 07/07/18 11:39> CCU Subjective - Physician Review Subjective (Free Text): Ismael Turner PGY-1 Progress Note for ICU Patient seen and evaluated at bedside. Fevers overnight with Tmax 100.6. Currently paralyzed on Nimbex and sedated on Propofol and Fentanyl drips. P atient responds to painful stimuli. Heparin drip on hold. Further ROS was unobtainable at this time due to clinical condition. CCU Objective - Vital Signs / Intake & Output Vital Signs (Last 4 hours): Vital Signs Pulse BP 07/07/18 03:41 102 H 115/65 Intake and Output (Last 8hrs): Intake & Output 07/06/18 07/07/18 07/07/18 22:59 06:59 14:59 Intake Total 1375.0 48 Output Total 900 Balance 475.0 48 Intake: IV 1375.0 48 Fentanyl 60 Left Forearm 650 dobutamine 168 propofol 220 Output: Urine 900 Urethral (Ash) 900 - Physical Exam Head: Positive for: Atraumatic, Normocephalic Pupils: Positive for: PERRL Extroacular Muscles: Positive for: EOMI Conjunctiva: Positive for: Normal Mouth: Positive for: Other (OGT in place) Pharnyx: Positive for: Other (Intubated, currently at 70/10/20/450) Respiratory/Chest: Positive for: Wheezes (mild expiratory wheeze bilaterally), Decreased Breath Sounds, Tachypneic, Other (Intubated). Negative for: Respiratory Distress Cardiovascular: Positive for: Normal S1, S2, Tachycardic. Negative for: Murmurs Abdomen: Positive for: Distention. Negative for: Tenderness, Peritoneal Signs Back: Positive for: Normal Inspection Upper Extremity: Positive for: Other (Ecchymoses noted in antecubital areas). Negative for: Normal Inspection, Cyanosis, Edema Lower Extremity: Positive for: Edema (2+ pitting edema noted to right lower extremity; chronic diabetic ulcer noted to anterior anderson of left lower extremity ) Neurological: Positive for: Other (unable to be assessed 2/2 sedation) Skin: Positive for: Warm, Dry, Normal Color. Negative for: Rashes Psychiatric: Negative for: Alert, Oriented x 3, Normal Insight, Normal Concentration - Medications Active Medications: Active Medications Generic Name Dose Route Start Last Admin Trade Name Freq PRN Reason Stop Dose Admin Albuterol/Ipratropium 3 ml 07/03/18 14:00 07/07/18 01:32 Duoneb 3 Mg/0.5 Mg (3 Ml) Ud IH 3 ml [id number] SEEMA Administration Albuterol/Ipratropium 3 ml 07/03/18 11:04 Duoneb 3 Mg/0.5 Mg (3 Ml) Ud IH Q2H PRN Shortness of Breath Meropenem/Sodium Chloride 500 mg in 50 mls @ 100 mls/hr 07/03/18 14:15 07/06/18 22:07 Merrem Iv 500 Mg/Ns 50 Ml IVPB 07/10/18 14:16 100 mls/hr Q12 SEEMA Administration Protocol Levofloxacin/Dextrose 500 mg in 100 mls @ 100 mls/hr 07/04/18 07:00 07/06/18 08:22 Levaquin 500mg IVPB 100 mls/hr Q48H SEEMA Administration Protocol Propofol 1,000 mg in 100 mls @ 2.79 mls/hr 07/03/18 16:11 07/06/18 19:20 Diprivan IV 10 mcg/kg/min .Q24H PRN 5.579 mls/hr TITRATE PER MD ORDER Titration Protocol 5 MCG/KG/MIN Fentanyl Citrate 1,000 mcg in 100 mls @ 10 mls/hr 07/03/18 16:44 07/06/18 19:20 Fentanyl Citrate/Sodium Chloride 1 Mg/100 Ml IV 10 mcg/hr .Q10H PRN 1 mls/hr TITRATE PER MD ORDER Titration Protocol 100 MCG/HR Dobutamine HCl/Dextrose 500 mg in 250 mls @ 14.628 mls/hr 07/04/18 10:40 07/07/18 03:41 Dobutamine/Dextrose 5% 500mg/250ml IV 14.628 mls/hr .Q17H6M PRN Administration SYSTOLIC BLOOD PRESSURE 5 MCG/KG/MIN Heparin Sodium/Sodium Chloride 25,000 units in 250 mls @ 7.802 mls/hr 07/05/18 01:00 07/05/18 08:58 Heparin 31700 Units/250ml 1/2 Normal Saline IV Not Given .Q24H SEEMA Protocol 8 UNITS/KG/HR Cisatracurium Besylate 200 mg/ 270 mls @ 3.95 mls/hr 07/06/18 15:44 07/07/18 03:30 Sodium Chloride IV 3 mcg/kg/min .Q24H PRN 23.7 mls/hr TITRATE PER MD ORDER Titration Protocol 0.5 MCG/KG/MIN Insulin Human Regular 0 units 07/03/18 22:00 07/06/18 22:21 Humulin R Med SC Not Given ACHS SEEMA Protocol Methylprednisolone 60 mg 07/07/18 10:00 Solu-Medrol IVP DAILY SEEMA Oseltamivir Phosphate 30 mg 07/04/18 10:00 07/06/18 22:28 Tamiflu Susp PO 6 ml Q12 SEEMA Administration Pantoprazole Sodium 40 mg 07/03/18 14:15 07/06/18 10:21 Protonix Inj IVP 40 mg DAILY SEEMA Administration - Patient Studies Lab Studies: Microbiology Studies 07/04/18 02:30 Gram Stain - Final Sputum Sputum Culture - Final Yeast Species 07/03/18 09:45 Blood Culture - Preliminary Blood NO GROWTH AFTER 3 DAYS 07/03/18 09:25 Blood Culture - Preliminary Blood NO GROWTH AFTER 3 DAYS 07/05/18 08:45 Urine Culture - Final Urine No Growth (<1,000 CFU/ML) Lab Studies 07/07/18 07/06/18 07/06/18 Range/Units 05:10 21:49 18:58 WBC 6.4 (4.5-11.0) 10^3/uL RBC 3.86 (3.5-6.1) 10^6/uL Hgb 10.2 L (14.0-18.0) g/dL Hct 33.1 L (42.0-52.0) % MCV 85.8 (80.0-105.0) fl MCH 26.4 (25.0-35.0) pg MCHC 30.8 L (31.0-37.0) g/dl RDW 17.3 H (11.5-14.5) % Plt Count 13 L* (120.0-450.0) 10^3/uL Manual Plt Count 15 L* (120-450) K/mm3 Gran % 91.1 H (50.0-68.0) % Lymph % (Auto) 6.2 L (22.0-35.0) % [place] % (Auto) 2.5 (1.0-6.0) % Eos % (Auto) 0.0 L (1.5-5.0) % Baso % (Auto) 0.2 (0.0-3.0) % Gran # 5.86 (1.4-6.5) Lymph # (Auto) 0.4 L (1.2-3.4) [place] # (Auto) 0.2 (0.1-0.6) Eos # (Auto) 0.0 (0.0-0.7) Baso # (Auto) 0.01 (0.0-2.0) K/mm3 Neutrophils % (Manual) 88 H (50.0-70.0) % Band Neutrophils % 3 H (0-2) % Lymphocytes % (Manual) 2 L (22.0-35.0) % Monocytes % (Manual) 5 (1.0-6.0) % Metamyelocytes % 2 % Platelet Evaluation Low (NORMAL) Large Platelets Present Poikilocytosis (manual Slight Anisocytosis (manual) Slight PT (9.4-12.5) SECONDS INR APTT (25.1-36.5) Seconds pCO2 69 H (35-45) mm/Hg pO2 177.0 H (80-100) mm/Hg HCO3 21.9 (21-28) mmol/L ABG pH 7.11 L* (7.35-7.45) ABG Total CO2 24.0 (22-28) mmol.L ABG O2 Saturation 99.5 H (95-98) % ABG O2 Content 13.8 L (15-23) ML/dl ABG Base Excess -7.9 L (-2.0-3.0) mmol/L ABG Hemoglobin 9.8 L (11.7-17.4) g/dL ABG Carboxyhemoglobin 1.4 (0.5-1.5) % POC ABG HHb (Measured) 0.5 (0-5) % ABG Methemoglobin 0.9 (0.0-3.0) % ABG O2 Capacity 13.9 L (16-24) mL/dl Hgb O2 Saturation 97.2 (95.0-98.0) % FiO2 80.0 % POC Glucose (mg/dL) 294 H (65-110) mg/dL Stool Occult Blood (NEGATIVE) 07/06/18 07/06/18 07/06/18 Range/Units 17:17 14:30 13:50 WBC (4.5-11.0) 10^3/uL RBC (3.5-6.1) 10^6/uL Hgb (14.0-18.0) g/dL Hct (42.0-52.0) % MCV (80.0-105.0) fl MCH (25.0-35.0) pg MCHC (31.0-37.0) g/dl RDW (11.5-14.5) % Plt Count (120.0-450.0) 10^3/uL Manual Plt Count (120-450) K/mm3 Gran % (50.0-68.0) % Lymph % (Auto) (22.0-35.0) % [place] % (Auto) (1.0-6.0) % Eos % (Auto) (1.5-5.0) % Baso % (Auto) (0.0-3.0) % Gran # (1.4-6.5) Lymph # (Auto) (1.2-3.4) [place] # (Auto) (0.1-0.6) Eos # (Auto) (0.0-0.7) Baso # (Auto) (0.0-2.0) K/mm3 Neutrophils % (Manual) (50.0-70.0) % Band Neutrophils % (0-2) % Lymphocytes % (Manual) (22.0-35.0) % Monocytes % (Manual) (1.0-6.0) % Metamyelocytes % % Platelet Evaluation (NORMAL) Large Platelets Poikilocytosis (manual Anisocytosis (manual) PT (9.4-12.5) SECONDS INR APTT (25.1-36.5) Seconds pCO2 47 H (35-45) mm/Hg pO2 101.0 H (80-100) mm/Hg HCO3 21.1 (21-28) mmol/L ABG pH 7.26 L (7.35-7.45) ABG Total CO2 22.5 (22-28) mmol.L ABG O2 Saturation 98.4 H (95-98) % ABG O2 Content 13.8 L (15-23) ML/dl ABG Base Excess -5.8 L (-2.0-3.0) mmol/L ABG Hemoglobin 10.1 L (11.7-17.4) g/dL ABG Carboxyhemoglobin 1.6 H (0.5-1.5) % POC ABG HHb (Measured) 1.6 (0-5) % ABG Methemoglobin 1.1 (0.0-3.0) % ABG O2 Capacity 14.0 L (16-24) mL/dl Hgb O2 Saturation 95.7 (95.0-98.0) % FiO2 80.0 % POC Glucose (mg/dL) 248 H (65-110) mg/dL Stool Occult Blood Negative (NEGATIVE) 07/06/18 07/06/18 07/06/18 Range/Units 12:01 11:54 09:25 WBC (4.5-11.0) 10^3/uL RBC (3.5-6.1) 10^6/uL Hgb (14.0-18.0) g/dL Hct (42.0-52.0) % MCV (80.0-105.0) fl MCH (25.0-35.0) pg MCHC (31.0-37.0) g/dl RDW (11.5-14.5) % Plt Count (120.0-450.0) 10^3/uL Manual Plt Count (120-450) K/mm3 Gran % (50.0-68.0) % Lymph % (Auto) (22.0-35.0) % [place] % (Auto) (1.0-6.0) % Eos % (Auto) (1.5-5.0) % Baso % (Auto) (0.0-3.0) % Gran # (1.4-6.5) Lymph # (Auto) (1.2-3.4) [place] # (Auto) (0.1-0.6) Eos # (Auto) (0.0-0.7) Baso # (Auto) (0.0-2.0) K/mm3 Neutrophils % (Manual) (50.0-70.0) % Band Neutrophils % (0-2) % Lymphocytes % (Manual) (22.0-35.0) % Monocytes % (Manual) (1.0-6.0) % Metamyelocytes % % Platelet Evaluation (NORMAL) Large Platelets Poikilocytosis (manual Anisocytosis (manual) PT 11.5 (9.4-12.5) SECONDS INR 1.00 APTT 18.7 L (25.1-36.5) Seconds pCO2 (35-45) mm/Hg pO2 (80-100) mm/Hg HCO3 (21-28) mmol/L ABG pH (7.35-7.45) ABG Total CO2 (22-28) mmol.L ABG O2 Saturation (95-98) % ABG O2 Content (15-23) ML/dl ABG Base Excess (-2.0-3.0) mmol/L ABG Hemoglobin (11.7-17.4) g/dL ABG Carboxyhemoglobin (0.5-1.5) % POC ABG HHb (Measured) (0-5) % ABG Methemoglobin (0.0-3.0) % ABG O2 Capacity (16-24) mL/dl Hgb O2 Saturation (95.0-98.0) % FiO2 % POC Glucose (mg/dL) 129 H 151 H (65-110) mg/dL Stool Occult Blood (NEGATIVE) 07/06/18 Range/Units 08:15 WBC (4.5-11.0) 10^3/uL RBC (3.5-6.1) 10^6/uL Hgb (14.0-18.0) g/dL Hct (42.0-52.0) % MCV (80.0-105.0) fl MCH (25.0-35.0) pg MCHC (31.0-37.0) g/dl RDW (11.5-14.5) % Plt Count (120.0-450.0) 10^3/uL Manual Plt Count (120-450) K/mm3 Gran % (50.0-68.0) % Lymph % (Auto) (22.0-35.0) % [place] % (Auto) (1.0-6.0) % Eos % (Auto) (1.5-5.0) % Baso % (Auto) (0.0-3.0) % Gran # (1.4-6.5) Lymph # (Auto) (1.2-3.4) [place] # (Auto) (0.1-0.6) Eos # (Auto) (0.0-0.7) Baso # (Auto) (0.0-2.0) K/mm3 Neutrophils % (Manual) (50.0-70.0) % Band Neutrophils % (0-2) % Lymphocytes % (Manual) (22.0-35.0) % Monocytes % (Manual) (1.0-6.0) % Metamyelocytes % % Platelet Evaluation (NORMAL) Large Platelets Poikilocytosis (manual Anisocytosis (manual) PT (9.4-12.5) SECONDS INR APTT (25.1-36.5) Seconds pCO2 (35-45) mm/Hg pO2 (80-100) mm/Hg HCO3 (21-28) mmol/L ABG pH (7.35-7.45) ABG Total CO2 (22-28) mmol.L ABG O2 Saturation (95-98) % ABG O2 Content (15-23) ML/dl ABG Base Excess (-2.0-3.0) mmol/L ABG Hemoglobin (11.7-17.4) g/dL ABG Carboxyhemoglobin (0.5-1.5) % POC ABG HHb (Measured) (0-5) % ABG Methemoglobin (0.0-3.0) % ABG O2 Capacity (16-24) mL/dl Hgb O2 Saturation (95.0-98.0) % FiO2 % POC Glucose (mg/dL) 113 H (65-110) mg/dL Stool Occult Blood (NEGATIVE) Laboratory Results - last 24 hr 07/06/18 07/06/18 07/06/18 08:15 09:25 11:54 WBC RBC Hgb Hct MCV MCH MCHC RDW Plt Count Manual Plt Count Gran % Lymph % (Auto) [place] % (Auto) Eos % (Auto) Baso % (Auto) Gran # Lymph # (Auto) [place] # (Auto) Eos # (Auto) Baso # (Auto) Neutrophils % (Manual) Band Neutrophils % Lymphocytes % (Manual) Monocytes % (Manual) Metamyelocytes % Platelet Evaluation Large Platelets Poikilocytosis (manual Anisocytosis (manual) PT 11.5 INR 1.00 APTT 18.7 L pCO2 pO2 HCO3 ABG pH ABG Total CO2 ABG O2 Saturation ABG O2 Content ABG Base Excess ABG Hemoglobin ABG Carboxyhemoglobin POC ABG HHb (Measured) ABG Methemoglobin ABG O2 Capacity Hgb O2 Saturation FiO2 POC Glucose (mg/dL) 113 H 151 H Stool Occult Blood 07/06/18 07/06/18 07/06/18 12:01 13:50 14:30 WBC RBC Hgb Hct MCV MCH MCHC RDW Plt Count Manual Plt Count Gran % Lymph % (Auto) [place] % (Auto) Eos % (Auto) Baso % (Auto) Gran # Lymph # (Auto) [place] # (Auto) Eos # (Auto) Baso # (Auto) Neutrophils % (Manual) Band Neutrophils % Lymphocytes % (Manual) Monocytes % (Manual) Metamyelocytes % Platelet Evaluation Large Platelets Poikilocytosis (manual Anisocytosis (manual) PT INR APTT pCO2 47 H pO2 101.0 H HCO3 21.1 ABG pH 7.26 L ABG Total CO2 22.5 ABG O2 Saturation 98.4 H ABG O2 Content 13.8 L ABG Base Excess -5.8 L ABG Hemoglobin 10.1 L ABG Carboxyhemoglobin 1.6 H POC ABG HHb (Measured) 1.6 ABG Methemoglobin 1.1 ABG O2 Capacity 14.0 L Hgb O2 Saturation 95.7 FiO2 80.0 POC Glucose (mg/dL) 129 H Stool Occult Blood Negative 07/06/18 07/06/18 07/06/18 17:17 18:58 21:49 WBC 6.4 RBC 3.86 Hgb 10.2 L Hct 33.1 L MCV 85.8 MCH 26.4 MCHC 30.8 L RDW 17.3 H Plt Count 13 L* Manual Plt Count 15 L* Gran % 91.1 H Lymph % (Auto) 6.2 L [place] % (Auto) 2.5 Eos % (Auto) 0.0 L Baso % (Auto) 0.2 Gran # 5.86 Lymph # (Auto) 0.4 L [place] # (Auto) 0.2 Eos # (Auto) 0.0 Baso # (Auto) 0.01 Neutrophils % (Manual) 88 H Band Neutrophils % 3 H Lymphocytes % (Manual) 2 L Monocytes % (Manual) 5 Metamyelocytes % 2 Platelet Evaluation Low Large Platelets Present Poikilocytosis (manual Slight Anisocytosis (manual) Slight PT INR APTT pCO2 pO2 HCO3 ABG pH ABG Total CO2 ABG O2 Saturation ABG O2 Content ABG Base Excess ABG Hemoglobin ABG Carboxyhemoglobin POC ABG HHb (Measured) ABG Methemoglobin ABG O2 Capacity Hgb O2 Saturation FiO2 POC Glucose (mg/dL) 248 H 294 H Stool Occult Blood 07/07/18 05:10 WBC RBC Hgb Hct MCV MCH MCHC RDW Plt Count Manual Plt Count Gran % Lymph % (Auto) [place] % (Auto) Eos % (Auto) Baso % (Auto) Gran # Lymph # (Auto) [place] # (Auto) Eos # (Auto) Baso # (Auto) Neutrophils % (Manual) Band Neutrophils % Lymphocytes % (Manual) Monocytes % (Manual) Metamyelocytes % Platelet Evaluation Large Platelets Poikilocytosis (manual Anisocytosis (manual) PT INR APTT pCO2 69 H pO2 177.0 H HCO3 21.9 ABG pH 7.11 L* ABG Total CO2 24.0 ABG O2 Saturation 99.5 H ABG O2 Content 13.8 L ABG Base Excess -7.9 L ABG Hemoglobin 9.8 L ABG Carboxyhemoglobin 1.4 POC ABG HHb (Measured) 0.5 ABG Methemoglobin 0.9 ABG O2 Capacity 13.9 L Hgb O2 Saturation 97.2 FiO2 80.0 POC Glucose (mg/dL) Stool Occult Blood Radiology Impressions: Radiology Impressions Chest X-Ray 07/06/18 06:00 IMPRESSION: Moderate cardiomegaly with severe vascular congestion showing slight improvement Chest X-Ray 07/06/18 13:42 IMPRESSION: Improved infiltrate on the right no change on the left. Fingerstick Blood Sugar Results: 109 Review of Systems - Review of Systems Review of Systems: 12 point ROS unable to completed due to clinical condition. Critical Care Progress Note - Extremities/Vascular Does the Patient have a Ash Catheter?: Yes Does the Patient need a Ash Catheter?: Yes - Nutrition Nutrition: Nutrition Category Date Time Status NPO Diet [DIET] Diets 07/06/18 Breakfast Ordered Assessment/Plan - Assessment and Plan (Free Text) Assessment: 62yo male with PMHx of COPD, active smoker 1pk per day, HTN, DM, PVD, presents with ER with 2 day history of fever, chills, associated with cough that is non- productive. Yesterday, patient also developed SOB. Pt denies sick contacts, recent travel, CP, palpitations, CARTY, dizziness. In the ER, patient was noted to be hypoxic at 78%, on 2L NC, subsequently placed on BIPAP. No other constitutional symptoms. Pt was found to have increased work of breathing, RR 35-40, subsequently intubated. Placed on low tidal vol. ventilation. Patient was initially started on heparin drip given elevated troponin, and markedly diminished EF. Hep drip currently held secondary to thrombocytopenia. Currently Paralyzed on Nimbex after overbreathing ventilator. Currently MODS and ARDS that is improving. Neuro: - AAOx0, on sedation and paralytic - pt. responds to painful stimuli - continue to monitor Pulm CAP and Flu A + 07/03/18 CXR: Stable pulm parenchymal infiltrates affecting R lung. Satisfactory position of endotracheal tube 07/03/18 CT chest: extensive alveolar infiltrate throughout R lung, consistent with PNA 07/04/18 CXR shows stable pulm parenchymal infiltrates, R>L. 07/03/18 ABG shows non anion gap metabolic acidosis 07/04/18 ABG shows metabolic acidosis 07/05/18 ABG shows improved metabolic acidosis 07/06/18 ABG shows worsening P/F ratio 07/06/18 CXR shows moderate cardiomegaly, severe vascular congestion showing slight improvement 07/07/18 CXR shows improvement in R vascular congestion 07/07/18 ABG shows improvement on permissive hypercapnea and low TV per ARDSNET trial. FiO2 down to 60% and - duonebs seema q6 and PRN q2 - Solumedrol dose changed to 60mg IV Daily - Tamiflu renally dosed BID day #4 - Abx: Levaquin 500 q48hr and Merrem 500 BID for possible secondary bacterial infection - Urine Lg negative - F/U Strep - Procal 4.85 - ID eval: Dr. Fernandes - recs appreciated - Pulm consulted - Dr. Burr, recs appreciated - Resp therapy Cardio HFrEF - BNP [id number], although CXR only shows one sided infilatrate - 07/03/18 echo report shows EF 14.2%, mildly dilated LV, systolic function severely impaired, akinetic septum, moderate TR and pulm HTN - Continue Dobutamine drip to 5 mcg for pressure support NSTEMI - Trop 0.48, 0.67, 0.67 - Cardiology consulted - Dr. Saxena. Cardiac cath on hold due to persistent thrombocytopenia. Hold Lasix per cardio. - Hold IVF d/t poor EF. - Hold Heparin drip - EKG ordered for now and daily thereafter in AM Chronic Thrombocytopenia, ITP - has received frequent intermittent transfusions as outpatient per medical record - 9, manual count 10 overnight. F/U HIT Antibody - Hem consult placed- Dr. Estevez. 2 unit PLT transfused yesterday. Further recs appreciated as thrombocytopenia is worsening. - Split products and Peripheral smear were sent. F/U ESR, CRP, IVONE and ANCA studies Stable Normocytic Anemia - Hgb 10.2 this AM, no obvious sign of bleed, f/u FOBT GI - NGT in place Uncontrolled DM - Hgb a1c 8.2, accuchecks ACHS - Diabetic education Lipid panel - TG elevated at 172 Shock liver Transaminitis AST /ALT 307/224 >543/409>592/570>717/746> 558/687, normal Alk Phos. Hold hepatotoxic drugs Hep panel negative - 07/03/18 RUQ U/S shows hepatosplenomegaly PTX for Ppx Nephro - Worsening OG 120/3.4, baseline Cr 1.0 - Hyperkalemia, cocktail given. F/U repeat BMP and EKG. - Currently holding IVF and Diuretics per cardio. Nephro input appreciated - Strict Is and Os. Output has decreased over last 3 days. - Ash in place. - Nephro consult - recs appreciated - Non-oliguric ATN in the setting of sepsis and mild hypotension; may have cardiorenal component in the setting of severely depressed biventricular dysfunction; has already received adequate amount of intravascular volume repletion and having good urine output - urine Cr 53, urine Na 49 - F/U fibrin splits products and peripheral smear for possible superimposed HUS in light of worsening renal function MSK - Wound care consulted - Podiatry consulted- Dr. Richardson- recs appreciated - OT/PT eval ID - Fevers continue, Resolved Leukocytosis 6.5 - Rapid influenza A positive > Tamiflu renally dosed at 30 mg BID - ID eval: Dr. Fernandes - persistent fever may be due t . - 1 dose Vanc given 07/05/18 and 07/06/18 - Sputum cx shows yeast species, blood cx neg after 3 days - GI ppx: PTX - DVT ppx: Hep drip held in light of thrombocytopenia Patient seen, case reviewed and plan approved by Dr. Ab Mitchell. Ismael Turner, PGY-1 <Junior Mitchell - Last Filed: 07/07/18 12:28> CCU Objective - Vital Signs / Intake & Output Vital Signs (Last 4 hours): Vital Signs Temp Pulse BP Pulse Ox 07/07/18 11:00 99.0 F 104 H 142/46 L 97 07/07/18 10:00 98.8 F 103 H 133/58 L 98 07/07/18 09:00 99.0 F 101 H 130/67 98 Intake and Output (Last 8hrs): Intake & Output 07/06/18 07/07/18 07/07/18 22:59 06:59 14:59 Intake Total 1375.0 48 245 Output Total 900 Balance 475.0 48 245 Intake: IV 1375.0 48 245 Fentanyl 60 Left Forearm 650 dobutamine 168 propofol 220 Output: Urine 900 Urethral (Ash) 900 - Medications Active Medications: Active Medications Generic Name Dose Route Start Last Admin Trade Name Freq PRN Reason Stop Dose Admin Albuterol/Ipratropium 3 ml 07/03/18 14:00 07/07/18 07:39 Duoneb 3 Mg/0.5 Mg (3 Ml) Ud IH 3 ml [id number] SEEMA Administration Albuterol/Ipratropium 3 ml 07/03/18 11:04 Duoneb 3 Mg/0.5 Mg (3 Ml) Ud IH Q2H PRN Shortness of Breath Meropenem/Sodium Chloride 500 mg in 50 mls @ 100 mls/hr 07/03/18 14:15 07/07/18 09:12 Merrem Iv 500 Mg/Ns 50 Ml IVPB 07/10/18 14:16 100 mls/hr Q12 SEEMA Administration Protocol Levofloxacin/Dextrose 500 mg in 100 mls @ 100 mls/hr 07/04/18 07:00 07/06/18 08:22 Levaquin 500mg IVPB 100 mls/hr Q48H SEEMA Administration Protocol Propofol 1,000 mg in 100 mls @ 2.79 mls/hr 07/03/18 16:11 07/07/18 10:53 Diprivan IV 10 mcg/kg/min .Q24H PRN 5.579 mls/hr TITRATE PER MD ORDER Administration Protocol 5 MCG/KG/MIN Fentanyl Citrate 1,000 mcg in 100 mls @ 10 mls/hr 07/03/18 16:44 07/06/18 19:20 Fentanyl Citrate/Sodium Chloride 1 Mg/100 Ml IV 10 mcg/hr .Q10H PRN 1 mls/hr TITRATE PER MD ORDER Titration Protocol 100 MCG/HR Dobutamine HCl/Dextrose 500 mg in 250 mls @ 14.628 mls/hr 07/04/18 10:40 07/07/18 03:41 Dobutamine/Dextrose 5% 500mg/250ml IV 14.628 mls/hr .Q17H6M PRN Administration SYSTOLIC BLOOD PRESSURE 5 MCG/KG/MIN Heparin Sodium/Sodium Chloride 25,000 units in 250 mls @ 7.802 mls/hr 07/05/18 01:00 07/05/18 08:58 Heparin 81067 Units/250ml 1/2 Normal Saline IV Not Given .Q24H SEEMA Protocol 8 UNITS/KG/HR Cisatracurium Besylate 200 mg/ 270 mls @ 3.95 mls/hr 07/06/18 15:44 07/07/18 11:10 Sodium Chloride IV 1.5 mcg/kg/min .Q24H PRN 11.85 mls/hr TITRATE PER MD ORDER Administration Protocol 0.5 MCG/KG/MIN Insulin Human Regular 0 units 07/03/18 22:00 07/07/18 08:22 Humulin R Med SC 7 units ACHS SEEMA Administration Protocol Methylprednisolone 60 mg 07/07/18 10:00 07/07/18 09:14 Solu-Medrol IVP 60 mg DAILY SEEMA Administration Oseltamivir Phosphate 30 mg 07/04/18 10:00 07/07/18 11:53 Tamiflu Susp PO 6 ml Q12 SEEMA Administration Pantoprazole Sodium 40 mg 07/03/18 14:15 07/07/18 09:16 Protonix Inj IVP 40 mg DAILY SEEMA Administration - Patient Studies Lab Studies: Microbiology Studies 07/03/18 09:45 Blood Culture - Preliminary Blood NO GROWTH AFTER 4 DAYS 07/03/18 09:25 Blood Culture - Preliminary Blood NO GROWTH AFTER 4 DAYS 07/04/18 02:30 Gram Stain - Final Sputum Sputum Culture - Final Yeast Species 07/05/18 08:45 Urine Culture - Final Urine No Growth (<1,000 CFU/ML) Lab Studies 07/07/18 07/07/18 07/07/18 Range/Units 11:58 11:30 07:55 WBC (4.5-11.0) 10^3/uL RBC (3.5-6.1) 10^6/uL Hgb (14.0-18.0) g/dL Hct (42.0-52.0) % MCV (80.0-105.0) fl MCH (25.0-35.0) pg MCHC (31.0-37.0) g/dl RDW (11.5-14.5) % Plt Count (120.0-450.0) 10^3/uL Manual Plt Count (120-450) K/mm3 Gran % (50.0-68.0) % Lymph % (Auto) (22.0-35.0) % [place] % (Auto) (1.0-6.0) % Eos % (Auto) (1.5-5.0) % Baso % (Auto) (0.0-3.0) % Gran # (1.4-6.5) Lymph # (Auto) (1.2-3.4) [place] # (Auto) (0.1-0.6) Eos # (Auto) (0.0-0.7) Baso # (Auto) (0.0-2.0) K/mm3 Neutrophils % (Manual) (50.0-70.0) % Band Neutrophils % (0-2) % Lymphocytes % (Manual) (22.0-35.0) % Monocytes % (Manual) (1.0-6.0) % Metamyelocytes % % Platelet Evaluation (NORMAL) Large Platelets Poikilocytosis (manual Anisocytosis (manual) pCO2 (35-45) mm/Hg pO2 (80-100) mm/Hg HCO3 (21-28) mmol/L ABG pH (7.35-7.45) ABG Total CO2 (22-28) mmol.L ABG O2 Saturation (95-98) % ABG O2 Content (15-23) ML/dl ABG Base Excess (-2.0-3.0) mmol/L ABG Hemoglobin (11.7-17.4) g/dL ABG Carboxyhemoglobin (0.5-1.5) % POC ABG HHb (Measured) (0-5) % ABG Methemoglobin (0.0-3.0) % ABG O2 Capacity (16-24) mL/dl Hgb O2 Saturation (95.0-98.0) % FiO2 % Sodium 144 (132-148) mmol/L Potassium 7.2 H* (3.6-5.0) mmol/L Chloride 112 H (98-107) mmol/L Carbon Dioxide 22 (21-33) mmol/L Anion Gap 17 (10-20) BUN 124 H* (7-21) mg/dL Creatinine 3.6 H (0.8-1.5) mg/dl Est GFR ( Amer) 21 Est GFR (Non-Af Amer) 17 POC Glucose (mg/dL) 309 H (65-110) mg/dL Random Glucose 334 H* (70-110) mg/dL Calcium 7.8 L (8.4-10.5) mg/dL Phosphorus (2.5-4.5) mg/dL Magnesium (1.7-2.2) mg/dL Total Bilirubin (0.2-1.3) mg/dL AST (17-59) U/L ALT (7-56) U/L Alkaline Phosphatase (38-126) U/L Total Creatine Kinase 1072 H (35-230) U/L Total Protein (5.8-8.3) g/dL Albumin (3.0-4.8) g/dL Globulin gm/dL Albumin/Globulin Ratio (1.1-1.8) Stool Occult Blood (NEGATIVE) Random Vancomycin 19.1 L (20-40) ug/mL 07/07/18 07/07/18 07/07/18 Range/Units 07:55 07:55 07:27 WBC 8.1 D (4.5-11.0) 10^3/uL RBC 3.65 (3.5-6.1) 10^6/uL Hgb 9.5 L (14.0-18.0) g/dL Hct 32.8 L (42.0-52.0) % MCV 89.9 D (80.0-105.0) fl MCH 26.0 (25.0-35.0) pg MCHC 29.0 L (31.0-37.0) g/dl RDW 17.4 H (11.5-14.5) % Plt Count 9 L* (120.0-450.0) 10^3/uL Manual Plt Count 10 L* (120-450) K/mm3 Gran % 87.5 H (50.0-68.0) % Lymph % (Auto) 7.3 L (22.0-35.0) % [place] % (Auto) 5.0 (1.0-6.0) % Eos % (Auto) 0.0 L (1.5-5.0) % Baso % (Auto) 0.2 (0.0-3.0) % Gran # 7.07 H (1.4-6.5) Lymph # (Auto) 0.6 L (1.2-3.4) [place] # (Auto) 0.4 (0.1-0.6) Eos # (Auto) 0.0 (0.0-0.7) Baso # (Auto) 0.02 (0.0-2.0) K/mm3 Neutrophils % (Manual) (50.0-70.0) % Band Neutrophils % (0-2) % Lymphocytes % (Manual) (22.0-35.0) % Monocytes % (Manual) (1.0-6.0) % Metamyelocytes % % Platelet Evaluation (NORMAL) Large Platelets Poikilocytosis (manual Anisocytosis (manual) pCO2 (35-45) mm/Hg pO2 (80-100) mm/Hg HCO3 (21-28) mmol/L ABG pH (7.35-7.45) ABG Total CO2 (22-28) mmol.L ABG O2 Saturation (95-98) % ABG O2 Content (15-23) ML/dl ABG Base Excess (-2.0-3.0) mmol/L ABG Hemoglobin (11.7-17.4) g/dL ABG Carboxyhemoglobin (0.5-1.5) % POC ABG HHb (Measured) (0-5) % ABG Methemoglobin (0.0-3.0) % ABG O2 Capacity (16-24) mL/dl Hgb O2 Saturation (95.0-98.0) % FiO2 % Sodium 143 (132-148) mmol/L Potassium 7.8 H* D (3.6-5.0) mmol/L Chloride 112 H (98-107) mmol/L Carbon Dioxide 22 (21-33) mmol/L Anion Gap 17 (10-20) BUN 120 H (7-21) mg/dL Creatinine 3.4 H (0.8-1.5) mg/dl Est GFR ( Amer) 22 Est GFR (Non-Af Amer) 18 POC Glucose (mg/dL) 326 H (65-110) mg/dL Random Glucose 332 H* D (70-110) mg/dL Calcium 7.7 L (8.4-10.5) mg/dL Phosphorus 11.0 H (2.5-4.5) mg/dL Magnesium 3.2 H (1.7-2.2) mg/dL Total Bilirubin 1.0 (0.2-1.3) mg/dL AST 558 H D (17-59) U/L ALT 687 H (7-56) U/L Alkaline Phosphatase 72 (38-126) U/L Total Creatine Kinase (35-230) U/L Total Protein 6.3 (5.8-8.3) g/dL Albumin 3.4 (3.0-4.8) g/dL Globulin 2.9 gm/dL Albumin/Globulin Ratio 1.2 (1.1-1.8) Stool Occult Blood (NEGATIVE) Random Vancomycin (20-40) ug/mL 07/07/18 07/06/18 07/06/18 Range/Units 05:10 21:49 18:58 WBC 6.4 (4.5-11.0) 10^3/uL RBC 3.86 (3.5-6.1) 10^6/uL Hgb 10.2 L (14.0-18.0) g/dL Hct 33.1 L (42.0-52.0) % MCV 85.8 (80.0-105.0) fl MCH 26.4 (25.0-35.0) pg MCHC 30.8 L (31.0-37.0) g/dl RDW 17.3 H (11.5-14.5) % Plt Count 13 L* (120.0-450.0) 10^3/uL Manual Plt Count 15 L* (120-450) K/mm3 Gran % 91.1 H (50.0-68.0) % Lymph % (Auto) 6.2 L (22.0-35.0) % [place] % (Auto) 2.5 (1.0-6.0) % Eos % (Auto) 0.0 L (1.5-5.0) % Baso % (Auto) 0.2 (0.0-3.0) % Gran # 5.86 (1.4-6.5) Lymph # (Auto) 0.4 L (1.2-3.4) [place] # (Auto) 0.2 (0.1-0.6) Eos # (Auto) 0.0 (0.0-0.7) Baso # (Auto) 0.01 (0.0-2.0) K/mm3 Neutrophils % (Manual) 88 H (50.0-70.0) % Band Neutrophils % 3 H (0-2) % Lymphocytes % (Manual) 2 L (22.0-35.0) % Monocytes % (Manual) 5 (1.0-6.0) % Metamyelocytes % 2 % Platelet Evaluation Low (NORMAL) Large Platelets Present Poikilocytosis (manual Slight Anisocytosis (manual) Slight pCO2 69 H (35-45) mm/Hg pO2 177.0 H (80-100) mm/Hg HCO3 21.9 (21-28) mmol/L ABG pH 7.11 L* (7.35-7.45) ABG Total CO2 24.0 (22-28) mmol.L ABG O2 Saturation 99.5 H (95-98) % ABG O2 Content 13.8 L (15-23) ML/dl ABG Base Excess -7.9 L (-2.0-3.0) mmol/L ABG Hemoglobin 9.8 L (11.7-17.4) g/dL ABG Carboxyhemoglobin 1.4 (0.5-1.5) % POC ABG HHb (Measured) 0.5 (0-5) % ABG Methemoglobin 0.9 (0.0-3.0) % ABG O2 Capacity 13.9 L (16-24) mL/dl Hgb O2 Saturation 97.2 (95.0-98.0) % FiO2 80.0 % Sodium (132-148) mmol/L Potassium (3.6-5.0) mmol/L Chloride (98-107) mmol/L Carbon Dioxide (21-33) mmol/L Anion Gap (10-20) BUN (7-21) mg/dL Creatinine (0.8-1.5) mg/dl Est GFR ( Amer) Est GFR (Non-Af Amer) POC Glucose (mg/dL) 294 H (65-110) mg/dL Random Glucose (70-110) mg/dL Calcium (8.4-10.5) mg/dL Phosphorus (2.5-4.5) mg/dL Magnesium (1.7-2.2) mg/dL Total Bilirubin (0.2-1.3) mg/dL AST (17-59) U/L ALT (7-56) U/L Alkaline Phosphatase (38-126) U/L Total Creatine Kinase (35-230) U/L Total Protein (5.8-8.3) g/dL Albumin (3.0-4.8) g/dL Globulin gm/dL Albumin/Globulin Ratio (1.1-1.8) Stool Occult Blood (NEGATIVE) Random Vancomycin (20-40) ug/mL 07/06/18 07/06/18 07/06/18 Range/Units 17:17 14:30 13:50 WBC (4.5-11.0) 10^3/uL RBC (3.5-6.1) 10^6/uL Hgb (14.0-18.0) g/dL Hct (42.0-52.0) % MCV (80.0-105.0) fl MCH (25.0-35.0) pg MCHC (31.0-37.0) g/dl RDW (11.5-14.5) % Plt Count (120.0-450.0) 10^3/uL Manual Plt Count (120-450) K/mm3 Gran % (50.0-68.0) % Lymph % (Auto) (22.0-35.0) % [place] % (Auto) (1.0-6.0) % Eos % (Auto) (1.5-5.0) % Baso % (Auto) (0.0-3.0) % Gran # (1.4-6.5) Lymph # (Auto) (1.2-3.4) [place] # (Auto) (0.1-0.6) Eos # (Auto) (0.0-0.7) Baso # (Auto) (0.0-2.0) K/mm3 Neutrophils % (Manual) (50.0-70.0) % Band Neutrophils % (0-2) % Lymphocytes % (Manual) (22.0-35.0) % Monocytes % (Manual) (1.0-6.0) % Metamyelocytes % % Platelet Evaluation (NORMAL) Large Platelets Poikilocytosis (manual Anisocytosis (manual) pCO2 47 H (35-45) mm/Hg pO2 101.0 H (80-100) mm/Hg HCO3 21.1 (21-28) mmol/L ABG pH 7.26 L (7.35-7.45) ABG Total CO2 22.5 (22-28) mmol.L ABG O2 Saturation 98.4 H (95-98) % ABG O2 Content 13.8 L (15-23) ML/dl ABG Base Excess -5.8 L (-2.0-3.0) mmol/L ABG Hemoglobin 10.1 L (11.7-17.4) g/dL ABG Carboxyhemoglobin 1.6 H (0.5-1.5) % POC ABG HHb (Measured) 1.6 (0-5) % ABG Methemoglobin 1.1 (0.0-3.0) % ABG O2 Capacity 14.0 L (16-24) mL/dl Hgb O2 Saturation 95.7 (95.0-98.0) % FiO2 80.0 % Sodium (132-148) mmol/L Potassium (3.6-5.0) mmol/L Chloride (98-107) mmol/L Carbon Dioxide (21-33) mmol/L Anion Gap (10-20) BUN (7-21) mg/dL Creatinine (0.8-1.5) mg/dl Est GFR ( Amer) Est GFR (Non-Af Amer) POC Glucose (mg/dL) 248 H (65-110) mg/dL Random Glucose (70-110) mg/dL Calcium (8.4-10.5) mg/dL Phosphorus (2.5-4.5) mg/dL Magnesium (1.7-2.2) mg/dL Total Bilirubin (0.2-1.3) mg/dL AST (17-59) U/L ALT (7-56) U/L Alkaline Phosphatase (38-126) U/L Total Creatine Kinase (35-230) U/L Total Protein (5.8-8.3) g/dL Albumin (3.0-4.8) g/dL Globulin gm/dL Albumin/Globulin Ratio (1.1-1.8) Stool Occult Blood Negative (NEGATIVE) Random Vancomycin (20-40) ug/mL Laboratory Results - last 24 hr 07/06/18 07/06/18 07/06/18 13:50 14:30 17:17 WBC RBC Hgb Hct MCV MCH MCHC RDW Plt Count Manual Plt Count Gran % Lymph % (Auto) [place] % (Auto) Eos % (Auto) Baso % (Auto) Gran # Lymph # (Auto) [place] # (Auto) Eos # (Auto) Baso # (Auto) Neutrophils % (Manual) Band Neutrophils % Lymphocytes % (Manual) Monocytes % (Manual) Metamyelocytes % Platelet Evaluation Large Platelets Poikilocytosis (manual Anisocytosis (manual) pCO2 47 H pO2 101.0 H HCO3 21.1 ABG pH 7.26 L ABG Total CO2 22.5 ABG O2 Saturation 98.4 H ABG O2 Content 13.8 L ABG Base Excess -5.8 L ABG Hemoglobin 10.1 L ABG Carboxyhemoglobin 1.6 H POC ABG HHb (Measured) 1.6 ABG Methemoglobin 1.1 ABG O2 Capacity 14.0 L Hgb O2 Saturation 95.7 FiO2 80.0 Sodium Potassium Chloride Carbon Dioxide Anion Gap BUN Creatinine Est GFR ( Amer) Est GFR (Non-Af Amer) POC Glucose (mg/dL) 248 H Random Glucose Calcium Phosphorus Magnesium Total Bilirubin AST ALT Alkaline Phosphatase Total Creatine Kinase Total Protein Albumin Globulin Albumin/Globulin Ratio Stool Occult Blood Negative Random Vancomycin 07/06/18 07/06/18 07/07/18 18:58 21:49 05:10 WBC 6.4 RBC 3.86 Hgb 10.2 L Hct 33.1 L MCV 85.8 MCH 26.4 MCHC 30.8 L RDW 17.3 H Plt Count 13 L* Manual Plt Count 15 L* Gran % 91.1 H Lymph % (Auto) 6.2 L [place] % (Auto) 2.5 Eos % (Auto) 0.0 L Baso % (Auto) 0.2 Gran # 5.86 Lymph # (Auto) 0.4 L [place] # (Auto) 0.2 Eos # (Auto) 0.0 Baso # (Auto) 0.01 Neutrophils % (Manual) 88 H Band Neutrophils % 3 H Lymphocytes % (Manual) 2 L Monocytes % (Manual) 5 Metamyelocytes % 2 Platelet Evaluation Low Large Platelets Present Poikilocytosis (manual Slight Anisocytosis (manual) Slight pCO2 69 H pO2 177.0 H HCO3 21.9 ABG pH 7.11 L* ABG Total CO2 24.0 ABG O2 Saturation 99.5 H ABG O2 Content 13.8 L ABG Base Excess -7.9 L ABG Hemoglobin 9.8 L ABG Carboxyhemoglobin 1.4 POC ABG HHb (Measured) 0.5 ABG Methemoglobin 0.9 ABG O2 Capacity 13.9 L Hgb O2 Saturation 97.2 FiO2 80.0 Sodium Potassium Chloride Carbon Dioxide Anion Gap BUN Creatinine Est GFR ( Amer) Est GFR (Non-Af Amer) POC Glucose (mg/dL) 294 H Random Glucose Calcium Phosphorus Magnesium Total Bilirubin AST ALT Alkaline Phosphatase Total Creatine Kinase Total Protein Albumin Globulin Albumin/Globulin Ratio Stool Occult Blood Random Vancomycin 07/07/18 07/07/18 07/07/18 07:27 07:55 07:55 WBC 8.1 D RBC 3.65 Hgb 9.5 L Hct 32.8 L MCV 89.9 D MCH 26.0 MCHC 29.0 L RDW 17.4 H Plt Count 9 L* Manual Plt Count 10 L* Gran % 87.5 H Lymph % (Auto) 7.3 L [place] % (Auto) 5.0 Eos % (Auto) 0.0 L Baso % (Auto) 0.2 Gran # 7.07 H Lymph # (Auto) 0.6 L [place] # (Auto) 0.4 Eos # (Auto) 0.0 Baso # (Auto) 0.02 Neutrophils % (Manual) Band Neutrophils % Lymphocytes % (Manual) Monocytes % (Manual) Metamyelocytes % Platelet Evaluation Large Platelets Poikilocytosis (manual Anisocytosis (manual) pCO2 pO2 HCO3 ABG pH ABG Total CO2 ABG O2 Saturation ABG O2 Content ABG Base Excess ABG Hemoglobin ABG Carboxyhemoglobin POC ABG HHb (Measured) ABG Methemoglobin ABG O2 Capacity Hgb O2 Saturation FiO2 Sodium 143 Potassium 7.8 H* D Chloride 112 H Carbon Dioxide 22 Anion Gap 17 BUN 120 H Creatinine 3.4 H Est GFR ( Amer) 22 Est GFR (Non-Af Amer) 18 POC Glucose (mg/dL) 326 H Random Glucose 332 H* D Calcium 7.7 L Phosphorus 11.0 H Magnesium 3.2 H Total Bilirubin 1.0 AST 558 H D ALT 687 H Alkaline Phosphatase 72 Total Creatine Kinase Total Protein 6.3 Albumin 3.4 Globulin 2.9 Albumin/Globulin Ratio 1.2 Stool Occult Blood Random Vancomycin 07/07/18 07/07/18 07/07/18 07:55 11:30 11:58 WBC RBC Hgb Hct MCV MCH MCHC RDW Plt Count Manual Plt Count Gran % Lymph % (Auto) [place] % (Auto) Eos % (Auto) Baso % (Auto) Gran # Lymph # (Auto) [place] # (Auto) Eos # (Auto) Baso # (Auto) Neutrophils % (Manual) Band Neutrophils % Lymphocytes % (Manual) Monocytes % (Manual) Metamyelocytes % Platelet Evaluation Large Platelets Poikilocytosis (manual Anisocytosis (manual) pCO2 pO2 HCO3 ABG pH ABG Total CO2 ABG O2 Saturation ABG O2 Content ABG Base Excess ABG Hemoglobin ABG Carboxyhemoglobin POC ABG HHb (Measured) ABG Methemoglobin ABG O2 Capacity Hgb O2 Saturation FiO2 Sodium 144 Potassium 7.2 H* Chloride 112 H Carbon Dioxide 22 Anion Gap 17 BUN 124 H* Creatinine 3.6 H Est GFR ( Amer) 21 Est GFR (Non-Af Amer) 17 POC Glucose (mg/dL) 309 H Random Glucose 334 H* Calcium 7.8 L Phosphorus Magnesium Total Bilirubin AST ALT Alkaline Phosphatase Total Creatine Kinase 1072 H Total Protein Albumin Globulin Albumin/Globulin Ratio Stool Occult Blood Random Vancomycin 19.1 L Radiology Impressions: Radiology Impressions Chest X-Ray 07/06/18 13:42 IMPRESSION: Improved infiltrate on the right no change on the left. Chest X-Ray 07/07/18 06:00 IMPRESSION: Stable tubes and lines. Stable pulmonary vascular congestion. Similar right basilar infiltrate. Improved left lung aeration with similar wall confluent infiltrate in the left mid lung. Small bilateral effusions not excluded. EKG/Cardiology Studies: Cardiology / EKG Studies 07/07/18 11:36 EKG [ELECTROCARDIOGRAM] Stat Comment: Reason For Exam: kyperkalemia, septic shock 07/08/18 06:00 EKG [ELECTROCARDIOGRAM] DAILY Comment: Reason For Exam: Hyperkalemia 07/09/18 06:00 EKG [ELECTROCARDIOGRAM] DAILY Comment: Reason For Exam: Hyperkalemia 07/10/18 06:00 EKG [ELECTROCARDIOGRAM] DAILY Comment: Reason For Exam: Hyperkalemia 07/11/18 06:00 EKG [ELECTROCARDIOGRAM] DAILY Comment: Reason For Exam: Hyperkalemia 07/12/18 06:00 EKG [ELECTROCARDIOGRAM] DAILY Comment: Reason For Exam: Hyperkalemia Critical Care Progress Note - Nutrition Nutrition: Nutrition Category Date Time Status NPO Diet [DIET] Diets 07/06/18 Breakfast Ordered Addendum Addendum: 07/07/18 12:24 ICU Attending Addendum Patient seen and examined. Case reviewed on round with housestaff. Agree with resident note above with the following additions/exceptions 62M smoker with COPD, HTN, DM, PVD admitted with septic shock from influ A resulting in multi organ failure. ARDS - Intubated for resp support and hypoxia. Cont low Vt ventilation as is paralyzed yesterday, improvev p-f ratio today with expected permissive hypercapnia CXR improved for the first time today wean Fio2 and PEEP as per ARDS protocol bring down FIO2 to 50% then drop PEEP from 10 to 8 f/u ABG cont tamiflu x 5 days as well empiric tx for superimposed PNA still having low grade temps possibly from drug fever abx as per ID Elevated TNI likely demand from shock vs CA on dobut with EF 15% hep drip held cardio managing thrombocytopenia mmt as per hem onc hx of ITP, plat still dropping will d/w hem OG ATN worse today, await nephro input I suspect may be from dehydration which is beneficial for ARDS trend transaminits improving SCD for DVT ppx PPI for GI ppx Rest of care above Junior Mitchell MD Pulmonary Critical Care Attending Critical Care Time: 37 mins
[2018-07-07 08:02] LABS: BASO # 0.02 K/mm3 (0.0-2.0); BASO % 0.2 % (0.0-3.0); GRAN # 7.07 (1.4-6.5); GRAN % 87.5 % (50.0-68.0); HEMOGLOBIN 9.5 g/dL (14.0-18.0); LYMPH # 0.6 (1.2-3.4); LYMPH % 7.3 % (22.0-35.0); MEAN CELL VOLUME 89.9 fl (80.0-105.0); MONO # 0.4 (0.1-0.6); RBC 3.65 10^6/uL (3.5-6.1); RED CELL DISTRIBUTION WIDTH 17.4 % (11.5-14.5); WHITE BLOOD COUNT 8.1 10^3/uL (4.5-11.0)
[2018-07-07] MEDS: Insulin Reg-MEDIUM-Coverage SC SCH ×4 (08:22→22:00)
[2018-07-07 08:28] LABS: PLATELET COUNT 9 10^3/uL (120.0-450.0)
[2018-07-07 08:29] LABS: PLATELET COUNT MANUAL 10 K/mm3 (120-450)
[2018-07-07 08:30] LABS: ALB/GLOB RATIO 1.2 (1.1-1.8); ALBUMIN 3.4 g/dL (3.0-4.8); CALCIUM 7.7 mg/dL (8.4-10.5)
[2018-07-07] MEDS ORDERED: Dextrose 50% SYRINGE Inj (50 ml) IVP ONE ×2 (08:30→12:54)
[2018-07-07] MEDS ORDERED: Sod Polystyrene Sulf 15 gm/60 ml Susp PO ONE ×2 (08:30→12:54)
[2018-07-07] MEDS ORDERED: Albuterol 0.5% Inhal Sol (2.5 mg/0.5 ml) UD IH STA (08:30)
[2018-07-07] MEDS ORDERED: Insulin Regular 1 UNITS/0.01 ML ML IVP ONE ×2 (08:31→12:55)
[2018-07-07] MEDS: MEROPENEM 500 MG in NS 500 MG/50 ML BAG IVPB SCH ×2 (09:12→22:00)
[2018-07-07] MEDS: MethylPREDNISolone 40 mg Vial IVP SCH (09:14)
--- NOTE | 2018-07-07 10:28 | RAD ---
Date of service: 07/07/2018 HISTORY: infiltrates, comparison to prior COMPARISON: Chest radiograph dated 07/06/2018. FINDINGS: LUNGS: Stable pulmonary vascular congestion. Similar right basilar infiltrate. Improved aeration of the left lung with similar more confluent infiltrate in the left mid lung. PLEURA: Small bilateral effusions not excluded. No pneumothorax. CARDIOVASCULAR: Aortic atherosclerotic calcifications. Cardiomediastinal silhouette stably enlarged. OSSEOUS STRUCTURES: Unchanged. VISUALIZED UPPER ABDOMEN: Normal. OTHER FINDINGS: Endotracheal and enteric tubes, unchanged. IMPRESSION: Stable tubes and lines. Stable pulmonary vascular congestion. Similar right basilar infiltrate. Improved left lung aeration with similar wall confluent infiltrate in the left mid lung. Small bilateral effusions not excluded.
[2018-07-07] MEDS: Propofol 10 mg/ml 1,000 MG/100 ML VIAL IV PRN ×2 (10:53→19:37)
[2018-07-07] MEDS: Cisatracurium Besylate 200 MG in Sodium Chloride 0.9% 250 ML IV PRN (11:10)
[2018-07-07] MEDS: Oseltamivir 6 MG/ML PO SCH ×2 (11:53→22:00)
[2018-07-07 12:17] LABS: CALCIUM 7.8 mg/dL (8.4-10.5)
[2018-07-07 12:23] LABS: BASO # 0.01 K/mm3 (0.0-2.0); BASO % 0.1 % (0.0-3.0); GRAN # 6.03 (1.4-6.5); GRAN % 89.9 % (50.0-68.0); HEMOGLOBIN 9.5 g/dL (14.0-18.0); LYMPH # 0.4 (1.2-3.4); LYMPH % 5.8 % (22.0-35.0); MEAN CELL VOLUME 89.9 fl (80.0-105.0); MONO # 0.3 (0.1-0.6); MONO % 4.2 % (1.0-6.0); RBC 3.65 10^6/uL (3.5-6.1); RED CELL DISTRIBUTION WIDTH 17.4 % (11.5-14.5); WHITE BLOOD COUNT 6.7 10^3/uL (4.5-11.0)
[2018-07-07 12:25] LABS: CK-MB 4.8 ng/mL (0.0-3.6)
[2018-07-07 12:34] LABS: PLATELET COUNT 7 10^3/uL (120.0-450.0)
[2018-07-07 12:35] LABS: PLATELET ESTIMATE LOW (NORMAL)
[2018-07-07] MEDS ORDERED: Albuterol 0.5% Inhal Sol (2.5 mg/0.5 ml) UD IH ONE (12:55)
[2018-07-07 13:00] LABS: ARTERIAL BLOOD GAS HCO3 20.3 mmol/L (21-28); ARTERIAL BLOOD GAS HEMOGLOBIN 9.3 g/dL (11.7-17.4); ARTERIAL BLOOD GAS O2 CONTENT 12.9 ML/dl (15-23); ARTERIAL BLOOD GAS O2 SAT 99.1 % (95-98); ARTERIAL BLOOD GAS PCO2 57 mm/Hg (35-45)
[2018-07-07 13:01] LABS: ARTERIAL BLOOD GAS PH 7.16 (7.35-7.45)
[2018-07-07 13:40] LABS: ERYTHROCYTE SEDIMENTATION RATE 45 mm/hr (0.00-15.0)
--- NOTE | 2018-07-07 14:17 | CARD ---
APPROVED REPORT Date of service: 07/07/2018 EKG Measurement Heart [id number] <Conclusion> Sinus tachycardia Rightward axis Nonspecific intraventricular conduction delay T wave abnormality, consider inferior ischemia Abnormal ECG
--- NOTE | 2018-07-07 14:37 | PN ---
DATE: 07/07/2018 SUBJECTIVE: The patient is in bed in no acute distress and in the ICU 129, bed 6 with low grade fevers and intubated on a ventilator with a temperature of 100.6 yesterday. PHYSICAL EXAMINATION VITAL SIGNS: Blood pressure is 115/60, respiratory rate on a vent, heart rate of 102. HEENT reveals ET tube in place. NECK: Supple. LUNGS: Have decreased breath sounds. HEART: Normal S1, S2. ABDOMEN: Soft. LABORATORY EXAMINATION: Reveals the white count is 8.1, hemoglobin of 9, platelets of 9. Chemistries reveals a BUN of 120. Creatinine is 3.4. Procalcitonin is 4.8. Influenza is positive. Microbiology reveals yeast in the sputum. The blood cultures are negative. Urine cultures are negative and the sputum culture is yeast. Review of orders reveals the patient to be on Levaquin, meropenem, Solu-Medrol. First dose of vancomycin was given. Chest x-ray from yesterday is reviewed. Improved infiltrates in the right. This morning's chest x-ray is done, but no report available. ASSESSMENT AND PLAN: A 62-year-old male with severe sepsis, hypoxic respiratory failure, [id number] renal failure as well as thrombocytopenia and severe right-sided community-acquired pneumonia on top of a viral influenza, significant active smoker and chronic obstructive lung disease, hypertension, diabetes. Currently on intermittent vancomycin, renally dosed meropenem and Levaquin day #5. Overall prognosis poor. Satya Fernandes MD
--- NOTE | 2018-07-07 14:48 | PN ---
DATE: 07/07/2018 PULMONARY PROGRESS NOTE SUBJECTIVE: The patient remains on mechanical ventilation in the intensive care unit. We have discussed his case at length with the [employer] liaison officer staff. The patient has improved over the last 24 hours. She is in ARDS. This is somewhat improving, her oxygenation is improving as well. Chest x-ray shows some clearing of infiltrates. PHYSICAL EXAMINATION: VITAL SIGNS: Remain stable. He has a low grade temperature of 100 degrees. Pulse is 100 as well. Blood pressure 130/70, O2 sat 96% on mechanical ventilation. HEENT: Normocephalic, atraumatic. NECK: Supple. No jugular venous distention. No bruit. CARDIOVASCULAR: Regular rate and rhythm, S1 and S2. CHEST: Global decrease in breath sounds with minimal rhonchi throughout. No rales or wheezing is appreciated. ABDOMEN: Soft. Bowel sounds normoactive without mass, guarding, rebound or organomegaly. EXTREMITIES: Reveal no clubbing, cyanosis or edema. NEUROLOGICAL: Reveals no focal findings. LABORATORY DATA: Morning blood gas is not available yet. We have discussed this case with Dr. Mitchell and he will adjust ventilator accordingly. CLINICAL ASSESSMENT: 1. Acute respiratory failure. 2. Acute respiratory distress syndrome. 3. Influenza A. 4. Congestive heart failure? 5. Thrombocytopenia. PLAN Continue vigorous supportive care with antibiotics and Tamiflu. Continue intravenous corticosteroids and taper as appropriate. Will follow closely. To remain intubated until his status improved sufficient to attempt weaning. Close followup is essential. We will follow with you and discuss with Dr. Burr who is returning to cover in the morning. Corey Sethi MD Job # [id number]
[2018-07-07] MEDS: PREMIXED IV SCH (14:50)
[2018-07-07] MEDS: IMMUNE GLOBULIN IV SCH (14:50)
[2018-07-07 16:52] LABS: CALCIUM 7.8 mg/dL (8.4-10.5)
--- NOTE | 2018-07-07 16:54 | PN ---
DATE: 07/07/2018 SUBJECTIVE: The patient is currently seen lying unresponsive sedated on a ventilator. His BUN and creatinine continued to worsen. He was hyperkalemic earlier this morning and treated with standard therapy. Repeat potassium level was pending. The patient's urine output remains adequate at 900 mL. MEDICATIONS: Medication list reviewed. The patient is currently on cisatracurium, Diprivan, Dobutrex, DuoNeb, fentanyl, heparin is on hold, sliding scale insulin, Levaquin, meropenem, Protonix, Solu-Medrol and Tamiflu. OBJECTIVE: INTAKE AND OUTPUT: Intake is 1733, output is 900. VITAL SIGNS: Blood pressure presently is 142/46, heart rate of 104, temperature 99 with a respiratory rate of 16, pulse ox is 97% with an FiO2 of 70%. HEENT: Eyes are closed. The patient is intubated. NECK: No neck vein distention. CHEST: Scattered rhonchi and rales. Decreased breath sounds at the bases. CARDIOVASCULAR: Shows a regular rate and rhythm with MR/TR/PI. No S3, no S4, no rub. ABDOMEN: Soft. Bowel sounds normal. No rebound, guarding or masses. EXTREMITIES: Show no dependent edema as best as I could tell. No cyanosis or clubbing. NEUROLOGICAL: Unobtainable as the patient is sedated on the ventilator. LABORATORY DATA AND IMAGING STUDIES: CBC; white blood cell count today is 8.1 with hemoglobin of 9.5 and a platelet count of 9000, manual platelet count is 10,000. Blood gas today; pH 7.11 with a pCO2 of 69, pO2 of 177, bicarbonate of 22 mostly consistent with respiratory acidosis. Chemistries; sodium is 143, potassium recorded at 7.8, repeat is pending post medication. Chloride 112. CO2 was 22. BUN is 120 with a creatinine of 3.4. Glucose is 332. Calcium 7.7. Phosphorus is elevated at 11. Magnesium is 3.2. Liver enzymes remain elevated. Bilirubin is normal. Albumin level was low at 3.4. U/A for the most part unremarkable with the exception of blood in the urine. Fractional excretion of sodium was greater than 1%. Random vancomycin level was 19.1. Influenza titers were positive. Hepatitis serologies were negative. Microbiology; blood cultures are negative at four days. Urine cultures are negative. Sputum cultures positive for yeast. ASSESSMENT: 1. Acute renal failure in the setting of acute tubular necrosis. The patient is currently nonoliguric. The patient has a severe cardiomyopathy with possible non-ST myocardial infarction. The patient is making urine; however, his BUN and creatinine continue to rise. The patient has an extremely low ejection fraction at 14% and remains on ionotropic therapy. The patient's intravenous fluid hydration was discontinued because of the possibility of volume overload state in light of his cardiomyopathy. Concern right now is that of life-threatening hyperkalemia if indeed real. The patient was treated with a standard cocktail medication. If potassium levels continue to remain elevated, the patient would quite possibly need acute renal replacement therapy. This was discussed with the house staff in the critical care unit. 2. History of sepsis with community-acquired pneumonia and influenza. He remains on combination antiviral and antibacterial medications. 3. History of severe cardiomyopathy, ejection fraction 14% with mitral regurgitation/tricuspid regurgitation/pulmonary insufficiency. Possible non-ST myocardial infarction. The patient is being followed closely by Cardiology in the critical care unit. 4. Acute respiratory failure. The patient remains intubated. He remains unresponsive on sedation. At the present time, the patient will likely is not weanable. 5. History of severe thrombocytopenia. Heparin-induced thrombocytopenia antibody is pending. The patient does have a history of idiopathic thrombocytopenic purpura as per his oncologist. It is unlikely that he has thrombotic thrombocytopenic purpura or hemolytic uremic syndrome. Perhaps visualization of the blood smear to make certain that there is no superimposed thrombotic thrombocytopenic purpura or hemolytic uremic syndrome superimposed on idiopathic thrombocytopenic purpura. 6. History of pgb-toedjof-syerdneua diabetes. The patient remains on sliding scale insulin. 7. History of hypertension. Blood pressure control is acceptable. He is not currently receiving any blood pressure medication. 8. History of chronic obstructive pulmonary disease, stable. 9. History of liver function tests. Evaluation is in progress. Hepatitis serologies are negative. Liver ultrasound did show hepatosplenomegaly. PLAN: 1. Continue to monitor the patient closely. Follow up potassium levels today as discussed with house staff. Possible placement of a dialysis catheter and acute dialysis if we are unable to lower his potassium levels. The patient is currently in nonoliguric ATN in the setting of sepsis secondary to pneumonia and influenza. This is all complicated by his severe cardiomyopathy. 2. Continue Dobutrex for blood pressure support and for hemodynamic support. 3. No weaning possible today in light of what is happening. 4. Continue to monitor platelets closely p.r.n. platelet transfusion. Perhaps visualization of his smear to make certain that the patient is not developing TTP or hemolytic uremic syndrome superimposed on his history of ITP. 5. Continue to monitor the patient closely. 6. Possible dialysis within the next 24 hours if BUN and creatinine continue to rise and his hyperkalemia becomes difficult to treat. Greater than 35 minutes spent In the care of this critically ill patient. Margarito Mcnamara MD MTDD
--- NOTE | 2018-07-07 17:45 | PCM.PROC ---
Addendum Addendum: 07/07/18 17:43 Dialysis Catheter Placement Date: 07/07/18 Indication: Hemodialysis for OG and hyperkalemia A time-out was completed verifying correct patient, procedure, site, positioning. The patients left groin was prepped and draped in sterile fashion. 1% Lidocaine was used to anesthetize the surrounding skin area. A triple lumen "trialysis" catheter was introduced into the common femoral vein using the Seldinger technique and under ultrasound guidance. The catheter was threaded smoothly over the guide wire and appropriate blood return was obtained. Each lumen of the catheter was evacuated of air and flushed with sterile saline. The catheter was then sutured in place to the skin and a sterile dressing applied. Perfusion to the extremity distal to the point of catheter insertion was checked and found to be adequate. Estimated Blood Loss: minimal The patient tolerated the procedure well and there were no complications.
--- NOTE | 2018-07-07 19:36 | PN ---
SUBJECTIVE: The patient was seen and examined at bedside on ICU. Low-grade fevers persist and he remains intubated and sedated. OBJECTIVE: VITAL SIGNS: Temperature 99, pulse 104, blood pressure 142/46, respiratory rate 20, oxygen saturation 97% on 60% FiO2. GENERAL: Intubated and sedated. HEENT: PERRL. ETT in place. NECK: No JVD. LUNGS: Coarse breath sounds anteriorly with scattered rhonchi. CARDIOVASCULAR: Regular rate and rhythm. Normal S1 and S2. ABDOMEN: Normoactive bowel sounds. Soft, nondistended. EXTREMITIES: 1+ edema in all extremities. NEUROLOGIC: The patient remains sedated. LABORATORY DATA: WBC 6.7 with 90% neutrophils, hemoglobin 9.5, hematocrit 33, platelets 7. Sodium 144, potassium 7.2, chloride 112, bicarb 22, BUN 124, creatinine 3.6, glucose 334. AST 558, ALT 687, T-bili 1. Blood cultures with no growth to date. Sputum culture with yeast species. Influenza A positive. ASSESSMENT: The patient is a 62-year-old man with multiple medical comorbidities who was admitted to the ICU s/p intubation for impending respiratory failure secondary to severe sepsis secondary to community-acquired pneumonia with multiorgan system failure. PLAN: 1. Acute hypoxic respiratory failure s/p intubation. Input from Dr. Rai and the ICU team appreciated. Continue with care as per ICU team. He remains on ARDS protocol. 2. Severe sepsis secondary to community acquired pneumonia with influenza. Input from Dr. Fernandes appreciated. Continue with current antimicrobials. 3. NSTEMI. Input from Dr. Saxena appreciated. The patient is presently not a candidate for catheterization given his significant thrombocytopenia. 4. Acute systolic heart failure. Continue with Dobutamine for inotropic support. 5. Acute kidney injury, consider secondary to ATN +/- prerenal azotemia in the setting of severe sepsis. Morning labs demonstrate deterioration of renal function. Determination to be made regarding renal replacement therapy with Dr. Mcnamara. 6. Transaminitis, likely secondary to shock liver in the setting of severe sepsis, improving. Abdominal ultrasound reviewed and unremarkable. Hepatitis panel negative. 7. Thrombocytopenia secondary to ITP. Workup ongoing to rule out HUS. HIT antibody pending. Continue care as per Dr. Estevez. 8. Normocytic anemia. Labs demonstrate stable hemoglobin. We will continue to monitor and transfuse as needed. 9. Hyperkalemia. EKG demonstrates no changes. As above, determination to be made for possible emergent dialysis. 10. Type 2 diabetes mellitus. Continue medium-dose insulin sliding scale for coverage. 11. Hypertension. Antihypertensives remain on hold given tenuous hemodynamics. 12. Pseudogout. 13. Anxiety disorder. 14. GERD. Continue Protonix 40 mg p.o. daily 15. Prophylaxis. Continue Protonix for GI prophylaxis. Continue with SCD's for DVT prophylaxis. CODE STATUS: Full code. Yassine Martinez MD MTDD
--- NOTE | 2018-07-07 21:00 | CP.PCM.CON ---
History of Present Illness - History of Present Illness History of Present Illness: Podiatry consult note for Dr. Benjamin Richardson 62M PMH of significant and active smoking history, COPD, HTN, DM, peripheral vascular disease, history of right elbow septic arthritis, history of right upper extremity cellulitis came in to [facility] because of 2 days of fever and chills associated with shortness of breath as well as non-productive cough. Seen by podiatry for right foot ulcer. Per nurse, patient is septic and has the flu. Patient is paralyzed under medication and does not respond when questioned. Patient is under droplet isolation. All: nut, fruit Past Patient History - Infectious Disease Hx of Infectious Diseases: None - Past Social History Smoking Status: Heavy Smoker > 10 Cigarettes Daily - CARDIAC Hx Cardiac Disorders: Yes Hx Hypertension: Yes Hx Peripheral Edema: Yes (ble +1 pitting) Other/Comment: large veins noted to right arm - PULMONARY Hx Respiratory Disorders: Yes Other/Comment: recently treated by pmd for sinus infection and cough - NEUROLOGICAL Hx Neurological Disorder: Yes Other/Comment: Neuropathy bilateral feet, restless legs - HEENT Hx HEENT Problems: No Other/Comment: had allergic reaction cause unknown 11/2015 hives/throat closed/swollen eyes and lips. recently treated by pmd for sinus infection and cough - RENAL Hx Chronic Kidney Disease: No - ENDOCRINE/METABOLIC Hx Endocrine Disorders: Yes Hx Diabetes Mellitus Type 2: Yes - HEMATOLOGICAL/ONCOLOGICAL Hx Blood Disorders: Yes (thrombocytopenia) Hx Anemia: Yes (blood transfusions) Other/Comment: septic arthritis r elbow 2015 - INTEGUMENTARY Other/Comment: hx of swollen red r elbow 01/17/16 work related hit it while getting a pot developed staph infection, had picc line inserted for abx cycle finished but elbow became red and swollen again, presently healed. 2nd degree burn 2016 at work rfa healed, left lower leg wound was a blister that broke, skin now red raw draining brown and yellow foul smelling drainage, pt non compliant i having dressing changed every [address] edwards, right foot great toe tred swollen and thick yellow toenail covered with dsd, outer side of right foot draining wound with medicated pad and dressing covering wound brown drainage noted, ble brown skin discolorations and dry skin +1 pitting edema, dry red scab surrounded by red skin to left knee from a fall - MUSCULOSKELETAL/RHEUMATOLOGICAL Hx Falls: Yes (a few weeks ago) - GASTROINTESTINAL Hx Gastrointestinal Disorders: Yes (RECTAL BLEED 11-29-16 DX DIVERTICULITIS) Hx Diverticulitis: Yes Other/Comment: takes metamucil daily to keep stool soft due to hx of rectal bleeding and thrombocytopenia, spouse thinks last bm was 07/01/18/ obese - GENITOURINARY/GYNECOLOGICAL Hx Genitourinary Disorders: No - PSYCHIATRIC Hx Psychophysiologic Disorder: Yes Hx Anxiety: Yes - SURGICAL HISTORY Hx Surgeries: Yes Other/Comment: SIGMOIDOSCOPY. RIGHT KNEE ARTHROSCOPY. L INGUINAL HERNIORHAPY - ANESTHESIA Hx Anesthesia: Yes Hx Anesthesia Reactions: No Hx Malignant Hyperthermia: No Meds Allergies/Adverse Reactions: Allergies Allergy/AdvReac Type Severity Reaction Status Date / Time nut Allergy RASH Uncoded 11/29/16 22:27 fruit AdvReac RASH Uncoded 11/29/16 22:27 - Medications Medications: Current Medications Albuterol/Ipratropium (Duoneb 3 Mg/0.5 Mg (3 Ml) Ud) 3 ml IH [id number] JHON Last Admin: 07/07/18 20:22 Dose: 3 ml Albuterol/Ipratropium (Duoneb 3 Mg/0.5 Mg (3 Ml) Ud) 3 ml IH Q2H PRN PRN Reason: Shortness of Breath Meropenem/Sodium Chloride (Merrem Iv 500 Mg/Ns 50 Ml) 500 mg in 50 mls @ 100 mls/hr IVPB Q12 JHON; Protocol Stop: 07/10/18 14:16 Last Admin: 07/07/18 09:12 Dose: 100 mls/hr Levofloxacin/Dextrose (Levaquin 500mg) 500 mg in 100 mls @ 100 mls/hr IVPB Q48H JHON; Protocol Last Admin: 07/06/18 08:22 Dose: 100 mls/hr Propofol (Diprivan) 1,000 mg in 100 mls @ 2.79 mls/hr IV .Q24H PRN; Protocol PRN Reason: TITRATE PER MD ORDER Last Admin: 07/07/18 19:37 Dose: 10 mcg/kg/min, 5.579 mls/hr Fentanyl Citrate (Fentanyl Citrate/Sodium Chloride 1 Mg/100 Ml) 1,000 mcg in 100 mls @ 10 mls/hr IV .Q10H PRN; Protocol PRN Reason: TITRATE PER MD ORDER Last Titration: 07/06/18 19:20 Dose: 10 mcg/hr, 1 mls/hr Dobutamine HCl/Dextrose (Dobutamine/Dextrose 5% 500mg/250ml) 500 mg in 250 mls @ 14.628 mls/hr IV .Q17H6M PRN PRN Reason: SYSTOLIC BLOOD PRESSURE Last Admin: 07/07/18 03:41 Dose: 14.628 mls/hr Heparin Sodium/Sodium Chloride (Heparin 34219 Units/250ml 1/2 Normal Saline) 25,000 units in 250 mls @ 7.802 mls/hr IV .Q24H JHON; Protocol Last Admin: 07/05/18 08:58 Dose: Not Given Cisatracurium Besylate 200 mg/ (Sodium Chloride) 270 mls @ 3.95 mls/hr IV .Q24H PRN; Protocol PRN Reason: TITRATE PER MD ORDER Last Titration: 07/07/18 16:21 Dose: 1 mcg/kg/min, 7.9 mls/hr Immune Globulin 25 gm/ (Miscellaneous) 250 mls @ 55 mls/hr IV DAILY [facility] Last Admin: 07/07/18 14:50 Dose: 55 mls/hr Insulin Human Regular (Humulin R Med) 0 units SC ACHS [facility]; Protocol Last Admin: 07/07/18 18:32 Dose: 7 units Methylprednisolone (Solu-Medrol) 60 mg IVP DAILY [facility] Last Admin: 07/07/18 09:14 Dose: 60 mg Oseltamivir Phosphate (Tamiflu Susp) 30 mg PO Q12 [facility] Last Admin: 07/07/18 11:53 Dose: 6 ml Pantoprazole Sodium (Protonix Inj) 40 mg IVP DAILY [facility] Last Admin: 07/07/18 09:16 Dose: 40 mg Physical Exam - Extremities Exam Additional comments: RLE focused Vasc: DP and PT pulses faintly palpable; cap refill <3 seconds to all digits; no edema noted to the foot or ankle; temp gradient warm to cool Derm: submet 5 ulceration measuring 0.5 cm x 0.5 cm, does not probe, no tracking or tunneling, no clinical signs of infection, no malodor or drainage appreciated Ortho: cannot determine due to patient state Neuro: cannot determine due to patient state Results - Vital Signs Recent Vital Signs: Last Vital Signs Temp 99.5 F 07/07/18 19:14 Pulse 106 H 07/07/18 19:14 Resp 16 07/06/18 19:50 BP 165/80 H 07/07/18 19:14 Pulse Ox 98 07/07/18 19:14 - Labs Result Diagrams: 07/07/18 12:00 07/07/18 16:10 Labs: Laboratory Results - last 24 hr 07/03/18 07/06/18 07/06/18 08:23 17:17 21:49 WBC RBC Hgb Hct MCV MCH MCHC RDW Plt Count Manual Plt Count Gran % Lymph % (Auto) [place] % (Auto) Eos % (Auto) Baso % (Auto) Gran # Lymph # (Auto) [place] # (Auto) Eos # (Auto) Baso # (Auto) Platelet Evaluation ESR Fibrin Degrad Products pCO2 pO2 HCO3 ABG pH ABG Total CO2 ABG O2 Saturation ABG O2 Content ABG Base Excess ABG Hemoglobin ABG Carboxyhemoglobin POC ABG HHb (Measured) ABG Methemoglobin ABG O2 Capacity Hgb O2 Saturation FiO2 Sodium Potassium Chloride Carbon Dioxide Anion Gap BUN Creatinine Est GFR ( Amer) Est GFR (Non-Af Amer) POC Glucose (mg/dL) 248 H 294 H Random Glucose Calcium Phosphorus Magnesium Total Bilirubin AST ALT Alkaline Phosphatase Total Creatine Kinase CK-MB (CK-2) CK-MB (CK-2) % Total Protein Albumin Globulin Albumin/Globulin Ratio Random Vancomycin Ur Strep pneumoniae Ag Not detected 07/07/18 07/07/18 07/07/18 05:10 07:27 07:55 WBC 8.1 D RBC 3.65 Hgb 9.5 L Hct 32.8 L MCV 89.9 D MCH 26.0 MCHC 29.0 L RDW 17.4 H Plt Count 9 L* Manual Plt Count 10 L* Gran % 87.5 H Lymph % (Auto) 7.3 L [place] % (Auto) 5.0 Eos % (Auto) 0.0 L Baso % (Auto) 0.2 Gran # 7.07 H Lymph # (Auto) 0.6 L [place] # (Auto) 0.4 Eos # (Auto) 0.0 Baso # (Auto) 0.02 Platelet Evaluation ESR Fibrin Degrad Products pCO2 69 H pO2 177.0 H HCO3 21.9 ABG pH 7.11 L* ABG Total CO2 24.0 ABG O2 Saturation 99.5 H ABG O2 Content 13.8 L ABG Base Excess -7.9 L ABG Hemoglobin 9.8 L ABG Carboxyhemoglobin 1.4 POC ABG HHb (Measured) 0.5 ABG Methemoglobin 0.9 ABG O2 Capacity 13.9 L Hgb O2 Saturation 97.2 FiO2 80.0 Sodium Potassium Chloride Carbon Dioxide Anion Gap BUN Creatinine Est GFR ( Amer) Est GFR (Non-Af Amer) POC Glucose (mg/dL) 326 H Random Glucose Calcium Phosphorus Magnesium Total Bilirubin AST ALT Alkaline Phosphatase Total Creatine Kinase CK-MB (CK-2) CK-MB (CK-2) % Total Protein Albumin Globulin Albumin/Globulin Ratio Random Vancomycin Ur Strep pneumoniae Ag 07/07/18 07/07/18 07/07/18 07:55 07:55 11:30 WBC RBC Hgb Hct MCV MCH MCHC RDW Plt Count Manual Plt Count Gran % Lymph % (Auto) [place] % (Auto) Eos % (Auto) Baso % (Auto) Gran # Lymph # (Auto) [place] # (Auto) Eos # (Auto) Baso # (Auto) Platelet Evaluation ESR Fibrin Degrad Products pCO2 pO2 HCO3 ABG pH ABG Total CO2 ABG O2 Saturation ABG O2 Content ABG Base Excess ABG Hemoglobin ABG Carboxyhemoglobin POC ABG HHb (Measured) ABG Methemoglobin ABG O2 Capacity Hgb O2 Saturation FiO2 Sodium 143 144 Potassium 7.8 H* D 7.2 H* Chloride 112 H 112 H Carbon Dioxide 22 22 Anion Gap 17 17 BUN 120 H 124 H* Creatinine 3.4 H 3.6 H Est GFR ( Amer) 22 21 Est GFR (Non-Af Amer) 18 17 POC Glucose (mg/dL) Random Glucose 332 H* D 334 H* Calcium 7.7 L 7.8 L Phosphorus 11.0 H Magnesium 3.2 H Total Bilirubin 1.0 AST 558 H D ALT 687 H Alkaline Phosphatase 72 Total Creatine Kinase 1072 H CK-MB (CK-2) 4.8 H CK-MB (CK-2) % Cancelled Total Protein 6.3 Albumin 3.4 Globulin 2.9 Albumin/Globulin Ratio 1.2 Random Vancomycin 19.1 L Ur Strep pneumoniae Ag 07/07/18 07/07/18 07/07/18 11:58 12:00 12:57 WBC 6.7 RBC 3.65 Hgb 9.5 L Hct 32.8 L MCV 89.9 MCH 26.0 MCHC 29.0 L RDW 17.4 H Plt Count 7 L* Manual Plt Count Gran % 89.9 H Lymph % (Auto) 5.8 L [place] % (Auto) 4.2 Eos % (Auto) 0.0 L Baso % (Auto) 0.1 Gran # 6.03 Lymph # (Auto) 0.4 L [place] # (Auto) 0.3 Eos # (Auto) 0.0 Baso # (Auto) 0.01 Platelet Evaluation Low ESR 45 H Fibrin Degrad Products pCO2 57 H pO2 124.0 H HCO3 20.3 L ABG pH 7.16 L* ABG Total CO2 22.0 ABG O2 Saturation 99.1 H ABG O2 Content 12.9 L ABG Base Excess -8.3 L ABG Hemoglobin 9.3 L ABG Carboxyhemoglobin 1.5 POC ABG HHb (Measured) 0.9 ABG Methemoglobin 0.9 ABG O2 Capacity 13.0 L Hgb O2 Saturation 96.7 FiO2 60.0 Sodium Potassium Chloride Carbon Dioxide Anion Gap BUN Creatinine Est GFR ( Amer) Est GFR (Non-Af Amer) POC Glucose (mg/dL) 309 H Random Glucose Calcium Phosphorus Magnesium Total Bilirubin AST ALT Alkaline Phosphatase Total Creatine Kinase CK-MB (CK-2) CK-MB (CK-2) % Total Protein Albumin Globulin Albumin/Globulin Ratio Random Vancomycin Ur Strep pneumoniae Ag 07/07/18 07/07/18 07/07/18 16:10 16:10 16:21 WBC RBC Hgb Hct MCV MCH MCHC RDW Plt Count Manual Plt Count Gran % Lymph % (Auto) [place] % (Auto) Eos % (Auto) Baso % (Auto) Gran # Lymph # (Auto) [place] # (Auto) Eos # (Auto) Baso # (Auto) Platelet Evaluation ESR Fibrin Degrad Products >10 <40 ug/ml pCO2 pO2 HCO3 ABG pH ABG Total CO2 ABG O2 Saturation ABG O2 Content ABG Base Excess ABG Hemoglobin ABG Carboxyhemoglobin POC ABG HHb (Measured) ABG Methemoglobin ABG O2 Capacity Hgb O2 Saturation FiO2 Sodium 144 Potassium 6.3 H* Chloride 112 H Carbon Dioxide 21 Anion Gap 17 BUN 132 H* Creatinine 3.8 H Est GFR ( Amer) 20 Est GFR (Non-Af Amer) 16 POC Glucose (mg/dL) 328 H Random Glucose 351 H* Calcium 7.8 L Phosphorus Magnesium Total Bilirubin AST ALT Alkaline Phosphatase Total Creatine Kinase CK-MB (CK-2) CK-MB (CK-2) % Total Protein Albumin Globulin Albumin/Globulin Ratio Random Vancomycin Ur Strep pneumoniae Ag Assessment & Plan - Assessment and Plan (Free Text) Assessment: 62M seen and evaluated in CCU for right submet 5 ulceration Plan: Patient seen and evaluated Discussed in detail with Dr. Richardson Afebrikenneth, absent leukocytosis Patients ulcer is not clinically infected No podiatric intervention while patient in current state of health Wound cleansed with sterile saline and dressed with optifoam dressing Will continue to follow Thank you for the consult - Date & Time Date: 07/07/18 Time: 21:05
--- NOTE | 2018-07-07 22:23 | PN ---
DATE: 07/07/2018 This is Margarito Damon's intensive care unit visit. For Dr. Estevez. SUBJECTIVE: The patient is a 62-year-old male, lying supine, intubated, and now paralyzed as per lining cutter, Dr. Mitchell's recommendation for access for dialysis site being done as the patient is in need of emergency dialysis due to a change of his laboratory markers. He remains sedated with family at the bedside. He is suffering from acute renal failure in the setting of acute tubular necrosis, and he is non-oliguric with possible recent [place]. His severe thrombocytopenia are worsening as the patient is now septic, and is positive for influenza titers along with his respiratory failure. However, there appears to be no active bleeding at this point. He does have ecchymotic changes on his arms. OBJECTIVE/PHYSICAL EXAMINATION: VITAL SIGNS: Temperature 99.7, pulse 107, respirations on a vent, blood pressure 164/58, pulse ox of 98%. HEENT: Unremarkable. The patient is intubated. NECK: No nodes. HEART: Tachy rate. Regular rhythm. LUNGS: Occasional rhonchi. ABDOMEN: Soft. Nontender. EXTREMITIES: Right elbow is swollen with ecchymotic change there with faint +1 edema. NEUROLOGIC: The patient is now post sedation for his procedure by Dr. Mitchell. On propofol and fentanyl and now paralyzed with Nimbex. LABORATORY DATA: The patient's labs were done and repeated. White blood cell count initially 8.1, fell to 6.7; hemoglobin 9.5; hematocrit 32.8; platelet count of 9000. After two bags of platelets were given yesterday, platelet count of 19,000, with manual of 21,000. His manual count today was 10,000. However, there is no active bleeding but these values felt to be in light of his sepsis. His chem metabolic panel showed a potassium of 7.8 with a repeat of 7.2 and now 6.3. His BUN was 124, initially that was 132 with a creatinine of 3.6 initially now of 3.8. Nonfasting glucose 351. Calcium was 7.8 with a CK of 1072. AST of 558 with an ALT of 687. A random vancomycin level was 19.1. Stool for occult blood was negative. Urine showed large amount of blood on 07/03/2018 with fibrin split products at greater than 10 and less than 40. The patient did have an EKG done earlier today. It was read as sinus tachycardia with rightward axis, nonspecific intraventricular conduction delay, T-wave abnormality, consider inferior ischemia, abnormal EKG. He had a chest x-ray done earlier today. It was read as stable tubes and lines, stable pulmonary vascular congestion, right basilar infiltrate, improved left lung aeration with infiltrate in the left mid lung, small bilateral effusions not excluded. ASSESSMENT: The assessment for this patient is that of acute renal failure with acute tubular necrosis, respiratory failure with ventilation necessary. The patient remains intubated, unresponsive, on sedation, severe cardiomyopathy, questionable non-ST elevated myocardial infarction, ejection fraction of 14%, sepsis/pneumonia, influenza, severe thrombocytopenia, diabetes mellitus, hypertension, chronic obstructive pulmonary disease, abnormal liver function tests, hepatosplenomegaly, chronic obstructive pulmonary disease, peripheral vascular disease, swelling in the right arm. PLAN: Plan for this patient after conversation with Dr. Estevez is to give IV gammaglobulin 25 g only if okay with Dr. Mcnamara, renal oracle iam consultant, with aggressive treatment with antibiotics. The patient will be monitored clinically with labs with emergency dialysis to be carried out once vascular access was achieved by Dr. Mitchell. The patient's and family members were at the bedside with all this explained to their satisfaction as one of the family members is a nurse with severe aggressive support. The patient is a complex patient with a comprehensive medically necessary and appropriate visit carried out in excess of 45 minutes with the family's questions answered to their satisfaction. James Martinez MD
[2018-07-08] MEDS: Albuterol-Ipratrop 3 mg / 0.5 (3 ml) UD IH SCH ×4 (02:58→20:00)
[2018-07-08 06:06] LABS: BASO # 0.01 K/mm3 (0.0-2.0); BASO % 0.2 % (0.0-3.0); GRAN # 4.58 (1.4-6.5); GRAN % 87.6 % (50.0-68.0); HEMOGLOBIN 8.3 g/dL (14.0-18.0); LYMPH # 0.4 (1.2-3.4); LYMPH % 6.7 % (22.0-35.0); MEAN CORPUSCULAR HGB CONC 30.7 g/dl (31.0-37.0); MONO # 0.3 (0.1-0.6); MONO % 5.5 % (1.0-6.0); RBC 3.19 10^6/uL (3.5-6.1); WHITE BLOOD COUNT 5.2 10^3/uL (4.5-11.0)
[2018-07-08 06:27] LABS: CALCIUM 7.4 mg/dL (8.4-10.5)
[2018-07-08 06:35] LABS: MEAN CELL VOLUME 84.6 fl (80.0-105.0); PLATELET COUNT 11 10^3/uL (120.0-450.0)
[2018-07-08 07:01] LABS: PLATELET ESTIMATE LOW (NORMAL)
--- NOTE | 2018-07-08 07:27 | CP.CCUPN ---
<Ismael Turner - Last Filed: 07/08/18 13:36> CCU Subjective - Physician Review Subjective (Free Text): Ismael Turner, PGY-1 Progress Note for ICU Patient seen and evaluated at bedside. No fevers overnight. Nimbex has been discontinued, and sedation on Propofol and Fentanyl drips. Patient responds to painful stimuli. Heparin drip on hold. Further ROS was unobtainable at this time due to clinical condition. CCU Objective - Vital Signs / Intake & Output Vital Signs (Last 4 hours): Vital Signs Temp Pulse Resp BP Pulse Ox 07/08/18 06:30 96.8 F L 89 27 H 99 07/08/18 06:29 96.8 F L 97 H 28 H 99 07/08/18 06:28 96.8 F L 86 27 H 98 07/08/18 06:27 96.8 F L 82 21 99 07/08/18 06:26 97.0 F L 84 20 99 07/08/18 06:25 97.0 F L 87 20 99 07/08/18 06:24 96.8 F L 88 21 99 07/08/18 06:23 96.8 F L 88 20 99 07/08/18 06:22 96.8 F L 86 20 99 07/08/18 06:21 96.8 F L 86 20 99 07/08/18 06:20 96.8 F L 85 27 H 99 07/08/18 06:19 97.0 F L 85 20 99 07/08/18 06:18 97.0 F L 85 20 99 07/08/18 06:17 97.0 F L 90 24 99 07/08/18 06:16 97.0 F L 89 21 98 07/08/18 06:15 97.0 F L 87 20 98 07/08/18 06:14 97.0 F L 86 20 99 07/08/18 06:13 97.2 F L 84 20 99 07/08/18 06:12 97.2 F L 88 22 99 07/08/18 06:11 97.0 F L 88 23 99 07/08/18 06:10 97.0 F L 86 35 H 99 07/08/18 06:09 97.2 F L 92 H 24 99 07/08/18 06:08 97.2 F L 88 19 99 07/08/18 06:07 97.2 F L 86 29 H 100 07/08/18 06:06 97.0 F L 87 21 100 07/08/18 06:05 97.0 F L 86 22 100 07/08/18 06:04 97.0 F L 86 23 100 07/08/18 06:03 97.0 F L 87 27 H 100 07/08/18 06:02 97.0 F L 86 31 H 100 07/08/18 06:01 97.0 F L 86 29 H 100 07/08/18 06:00 89 110/47 L 07/08/18 05:59 97.2 F L 84 33 H 100 07/08/18 05:58 97.2 F L 85 38 H 100 07/08/18 05:57 97.2 F L 90 26 H 100 07/08/18 05:56 97.2 F L 93 H 32 H 100 07/08/18 05:55 97.2 F L 90 30 H 100 07/08/18 05:54 97.2 F L 89 26 H 100 07/08/18 05:53 97.2 F L 87 32 H 100 07/08/18 05:52 97.2 F L 87 43 H 100 07/08/18 05:51 97.2 F L 91 H 20 100 07/08/18 05:50 97.2 F L 90 23 100 07/08/18 05:49 97.2 F L 90 30 H 100 07/08/18 05:48 97.2 F L 87 24 100 07/08/18 05:47 97.2 F L 86 19 100 07/08/18 05:46 97.2 F L 87 21 100 07/08/18 05:45 97.2 F L 88 22 100 07/08/18 05:44 97.2 F L 85 21 100 07/08/18 05:43 97.2 F L 86 23 99 07/08/18 05:42 97.2 F L 87 20 99 07/08/18 05:41 97.3 F L 88 30 H 99 Intake and Output (Last 8hrs): Intake & Output 07/07/18 07/07/18 07/08/18 14:59 22:59 06:59 Intake Total 255 1477 605 Output Total 350 200 Balance 255 1127 405 Intake: IV 255 677 605 ATB 100 Fentanyl 12 20 dobutamine 360 360 propofol 150 100 Oral 800 0 Output: Urine 350 200 Urethral (Ash) 350 200 Other: # Bowel Movements 1 - Physical Exam Head: Positive for: Atraumatic, Normocephalic Pupils: Positive for: PERRL Extroacular Muscles: Positive for: EOMI Conjunctiva: Positive for: Normal Mouth: Positive for: Other (OGT in place) Pharnyx: Positive for: Other (Intubated, currently at 40/10/20/450) Respiratory/Chest: Positive for: Wheezes (mild expiratory wheeze bilaterally), Decreased Breath Sounds, Tachypneic, Other (Intubated). Negative for: Respiratory Distress Cardiovascular: Positive for: Normal S1, S2, Tachycardic. Negative for: Murmurs Abdomen: Positive for: Distention. Negative for: Tenderness, Peritoneal Signs Back: Positive for: Normal Inspection Upper Extremity: Positive for: Other (Ecchymoses noted in antecubital areas). Negative for: Normal Inspection, Cyanosis, Edema Lower Extremity: Positive for: Edema (2+ pitting edema noted to right lower extremity; chronic diabetic ulcer noted to anterior anderson of left lower extremity ) Neurological: Positive for: Other (unable to be assessed 2/2 sedation) Skin: Positive for: Warm, Dry, Normal Color. Negative for: Rashes Psychiatric: Negative for: Alert, Oriented x 3, Normal Insight, Normal Concentration - Medications Active Medications: Active Medications Generic Name Dose Route Start Last Admin Trade Name Freq PRN Reason Stop Dose Admin Albuterol/Ipratropium 3 ml 07/03/18 14:00 07/08/18 02:58 Duoneb 3 Mg/0.5 Mg (3 Ml) Ud IH 3 ml [id number] SEEMA Administration Albuterol/Ipratropium 3 ml 07/03/18 11:04 Duoneb 3 Mg/0.5 Mg (3 Ml) Ud IH Q2H PRN Shortness of Breath Meropenem/Sodium Chloride 500 mg in 50 mls @ 100 mls/hr 07/03/18 14:15 07/07/18 22:00 Merrem Iv 500 Mg/Ns 50 Ml IVPB 07/10/18 14:16 100 mls/hr Q12 SEEMA Administration Protocol Levofloxacin/Dextrose 500 mg in 100 mls @ 100 mls/hr 12/29/18 07:00 07/06/18 08:22 Levaquin 500mg IVPB 100 mls/hr Q48H SEEMA Administration Protocol Propofol 1,000 mg in 100 mls @ 2.79 mls/hr 07/03/18 16:11 07/08/18 00:45 Diprivan IV 25 mcg/kg/min .Q24H PRN 13.948 mls/hr TITRATE PER MD ORDER Titration Protocol 5 MCG/KG/MIN Fentanyl Citrate 1,000 mcg in 100 mls @ 10 mls/hr 07/03/18 16:44 07/06/18 19:20 Fentanyl Citrate/Sodium Chloride 1 Mg/100 Ml IV 10 mcg/hr .Q10H PRN 1 mls/hr TITRATE PER MD ORDER Titration Protocol 100 MCG/HR Dobutamine HCl/Dextrose 500 mg in 250 mls @ 14.628 mls/hr 07/04/18 10:40 07/07/18 03:41 Dobutamine/Dextrose 5% 500mg/250ml IV 14.628 mls/hr .Q17H6M PRN Administration SYSTOLIC BLOOD PRESSURE 5 MCG/KG/MIN Heparin Sodium/Sodium Chloride 25,000 units in 250 mls @ 7.802 mls/hr 07/05/18 01:00 07/05/18 08:58 Heparin 76805 Units/250ml 1/2 Normal Saline IV Not Given .Q24H SEEMA Protocol 8 UNITS/KG/HR Cisatracurium Besylate 200 mg/ 270 mls @ 3.95 mls/hr 07/06/18 15:44 07/07/18 16:21 Sodium Chloride IV 1 mcg/kg/min .Q24H PRN 7.9 mls/hr TITRATE PER MD ORDER Titration Protocol 0.5 MCG/KG/MIN Immune Globulin 25 gm/ 250 mls @ 55 mls/hr 07/07/18 14:00 07/07/18 14:50 Miscellaneous IV 55 mls/hr DAILY SEEMA Administration Insulin Human Regular 0 units 07/03/18 22:00 07/07/18 22:00 Humulin R Med SC Not Given ACHS SEEMA Protocol Methylprednisolone 60 mg 07/07/18 10:00 07/07/18 09:14 Solu-Medrol IVP 60 mg DAILY SEEMA Administration Oseltamivir Phosphate 30 mg 07/04/18 10:00 07/07/18 22:00 Tamiflu Susp PO 5 ml Q12 SEEMA Administration Pantoprazole Sodium 40 mg 07/03/18 14:15 07/07/18 09:16 Protonix Inj IVP 40 mg DAILY SEEMA Administration - Patient Studies Lab Studies: Microbiology Studies 07/03/18 09:45 Blood Culture - Preliminary Blood NO GROWTH AFTER 4 DAYS 07/03/18 09:25 Blood Culture - Preliminary Blood NO GROWTH AFTER 4 DAYS Lab Studies 07/08/18 07/08/18 07/07/18 Range/Units 05:30 05:30 21:23 WBC 5.2 D (4.5-11.0) 10^3/uL RBC 3.19 L (3.5-6.1) 10^6/uL Hgb 8.3 L (14.0-18.0) g/dL Hct 27.0 L (42.0-52.0) % MCV 84.6 D (80.0-105.0) fl MCH 26.0 (25.0-35.0) pg MCHC 30.7 L (31.0-37.0) g/dl RDW 17.0 H (11.5-14.5) % Plt Count 11 L* (120.0-450.0) 10^3/uL Manual Plt Count (120-450) K/mm3 Gran % 87.6 H (50.0-68.0) % Lymph % (Auto) 6.7 L (22.0-35.0) % [place] % (Auto) 5.5 (1.0-6.0) % Eos % (Auto) 0.0 L (1.5-5.0) % Baso % (Auto) 0.2 (0.0-3.0) % Gran # 4.58 (1.4-6.5) Lymph # (Auto) 0.4 L (1.2-3.4) [place] # (Auto) 0.3 (0.1-0.6) Eos # (Auto) 0.0 (0.0-0.7) Baso # (Auto) 0.01 (0.0-2.0) K/mm3 Platelet Evaluation (NORMAL) ESR (0.00-15.0) mm/hr Fibrin Degrad Products (< 10 ug/mL) pCO2 (35-45) mm/Hg pO2 (80-100) mm/Hg HCO3 (21-28) mmol/L ABG pH (7.35-7.45) ABG Total CO2 (22-28) mmol.L ABG O2 Saturation (95-98) % ABG O2 Content (15-23) ML/dl ABG Base Excess (-2.0-3.0) mmol/L ABG Hemoglobin (11.7-17.4) g/dL ABG Carboxyhemoglobin (0.5-1.5) % POC ABG HHb (Measured) (0-5) % ABG Methemoglobin (0.0-3.0) % ABG O2 Capacity (16-24) mL/dl Hgb O2 Saturation (95.0-98.0) % FiO2 % Sodium 141 (132-148) mmol/L Potassium 4.2 (3.6-5.0) mmol/L Chloride 105 (98-107) mmol/L Carbon Dioxide 26 (21-33) mmol/L Anion Gap 14 (10-20) BUN 98 H (7-21) mg/dL Creatinine 3.9 H (0.8-1.5) mg/dl Est GFR ( Amer) 19 Est GFR (Non-Af Amer) 16 POC Glucose (mg/dL) 199 H (65-110) mg/dL Random Glucose 269 H (70-110) mg/dL Calcium 7.4 L (8.4-10.5) mg/dL Phosphorus (2.5-4.5) mg/dL Magnesium (1.7-2.2) mg/dL Total Bilirubin 0.9 (0.2-1.3) mg/dL AST 270 H D (17-59) U/L ALT 476 H (7-56) U/L Alkaline Phosphatase 69 (38-126) U/L Total Creatine Kinase (35-230) U/L CK-MB (CK-2) (0.0-3.6) ng/mL CK-MB (CK-2) % Total Protein 5.8 (5.8-8.3) g/dL Albumin 3.0 (3.0-4.8) g/dL Globulin 2.9 gm/dL Albumin/Globulin Ratio 1.0 L (1.1-1.8) Random Vancomycin (20-40) ug/mL Ur Strep pneumoniae Ag (Not Detected) 07/07/18 07/07/18 07/07/18 Range/Units 16:21 16:10 16:10 WBC (4.5-11.0) 10^3/uL RBC (3.5-6.1) 10^6/uL Hgb (14.0-18.0) g/dL Hct (42.0-52.0) % MCV (80.0-105.0) fl MCH (25.0-35.0) pg MCHC (31.0-37.0) g/dl RDW (11.5-14.5) % Plt Count (120.0-450.0) 10^3/uL Manual Plt Count (120-450) K/mm3 Gran % (50.0-68.0) % Lymph % (Auto) (22.0-35.0) % [place] % (Auto) (1.0-6.0) % Eos % (Auto) (1.5-5.0) % Baso % (Auto) (0.0-3.0) % Gran # (1.4-6.5) Lymph # (Auto) (1.2-3.4) [place] # (Auto) (0.1-0.6) Eos # (Auto) (0.0-0.7) Baso # (Auto) (0.0-2.0) K/mm3 Platelet Evaluation (NORMAL) ESR (0.00-15.0) mm/hr Fibrin Degrad Products >10 <40 ug/ml (< 10 ug/mL) pCO2 (35-45) mm/Hg pO2 (80-100) mm/Hg HCO3 (21-28) mmol/L ABG pH (7.35-7.45) ABG Total CO2 (22-28) mmol.L ABG O2 Saturation (95-98) % ABG O2 Content (15-23) ML/dl ABG Base Excess (-2.0-3.0) mmol/L ABG Hemoglobin (11.7-17.4) g/dL ABG Carboxyhemoglobin (0.5-1.5) % POC ABG HHb (Measured) (0-5) % ABG Methemoglobin (0.0-3.0) % ABG O2 Capacity (16-24) mL/dl Hgb O2 Saturation (95.0-98.0) % FiO2 % Sodium 144 (132-148) mmol/L Potassium 6.3 H* (3.6-5.0) mmol/L Chloride 112 H (98-107) mmol/L Carbon Dioxide 21 (21-33) mmol/L Anion Gap 17 (10-20) BUN 132 H* (7-21) mg/dL Creatinine 3.8 H (0.8-1.5) mg/dl Est GFR ( Amer) 20 Est GFR (Non-Af Amer) 16 POC Glucose (mg/dL) 328 H (65-110) mg/dL Random Glucose 351 H* (70-110) mg/dL Calcium 7.8 L (8.4-10.5) mg/dL Phosphorus (2.5-4.5) mg/dL Magnesium (1.7-2.2) mg/dL Total Bilirubin (0.2-1.3) mg/dL AST (17-59) U/L ALT (7-56) U/L Alkaline Phosphatase (38-126) U/L Total Creatine Kinase (35-230) U/L CK-MB (CK-2) (0.0-3.6) ng/mL CK-MB (CK-2) % Total Protein (5.8-8.3) g/dL Albumin (3.0-4.8) g/dL Globulin gm/dL Albumin/Globulin Ratio (1.1-1.8) Random Vancomycin (20-40) ug/mL Ur Strep pneumoniae Ag (Not Detected) 07/07/18 07/07/18 07/07/18 Range/Units 12:57 12:00 11:58 WBC 6.7 (4.5-11.0) 10^3/uL RBC 3.65 (3.5-6.1) 10^6/uL Hgb 9.5 L (14.0-18.0) g/dL Hct 32.8 L (42.0-52.0) % MCV 89.9 (80.0-105.0) fl MCH 26.0 (25.0-35.0) pg MCHC 29.0 L (31.0-37.0) g/dl RDW 17.4 H (11.5-14.5) % Plt Count 7 L* (120.0-450.0) 10^3/uL Manual Plt Count (120-450) K/mm3 Gran % 89.9 H (50.0-68.0) % Lymph % (Auto) 5.8 L (22.0-35.0) % [place] % (Auto) 4.2 (1.0-6.0) % Eos % (Auto) 0.0 L (1.5-5.0) % Baso % (Auto) 0.1 (0.0-3.0) % Gran # 6.03 (1.4-6.5) Lymph # (Auto) 0.4 L (1.2-3.4) [place] # (Auto) 0.3 (0.1-0.6) Eos # (Auto) 0.0 (0.0-0.7) Baso # (Auto) 0.01 (0.0-2.0) K/mm3 Platelet Evaluation Low (NORMAL) ESR 45 H (0.00-15.0) mm/hr Fibrin Degrad Products (< 10 ug/mL) pCO2 57 H (35-45) mm/Hg pO2 124.0 H (80-100) mm/Hg HCO3 20.3 L (21-28) mmol/L ABG pH 7.16 L* (7.35-7.45) ABG Total CO2 22.0 (22-28) mmol.L ABG O2 Saturation 99.1 H (95-98) % ABG O2 Content 12.9 L (15-23) ML/dl ABG Base Excess -8.3 L (-2.0-3.0) mmol/L ABG Hemoglobin 9.3 L (11.7-17.4) g/dL ABG Carboxyhemoglobin 1.5 (0.5-1.5) % POC ABG HHb (Measured) 0.9 (0-5) % ABG Methemoglobin 0.9 (0.0-3.0) % ABG O2 Capacity 13.0 L (16-24) mL/dl Hgb O2 Saturation 96.7 (95.0-98.0) % FiO2 60.0 % Sodium (132-148) mmol/L Potassium (3.6-5.0) mmol/L Chloride (98-107) mmol/L Carbon Dioxide (21-33) mmol/L Anion Gap (10-20) BUN (7-21) mg/dL Creatinine (0.8-1.5) mg/dl Est GFR ( Amer) Est GFR (Non-Af Amer) POC Glucose (mg/dL) 309 H (65-110) mg/dL Random Glucose (70-110) mg/dL Calcium (8.4-10.5) mg/dL Phosphorus (2.5-4.5) mg/dL Magnesium (1.7-2.2) mg/dL Total Bilirubin (0.2-1.3) mg/dL AST (17-59) U/L ALT (7-56) U/L Alkaline Phosphatase (38-126) U/L Total Creatine Kinase (35-230) U/L CK-MB (CK-2) (0.0-3.6) ng/mL CK-MB (CK-2) % Total Protein (5.8-8.3) g/dL Albumin (3.0-4.8) g/dL Globulin gm/dL Albumin/Globulin Ratio (1.1-1.8) Random Vancomycin (20-40) ug/mL Ur Strep pneumoniae Ag (Not Detected) 07/07/18 07/07/18 07/07/18 Range/Units 11:30 07:55 07:55 WBC (4.5-11.0) 10^3/uL RBC (3.5-6.1) 10^6/uL Hgb (14.0-18.0) g/dL Hct (42.0-52.0) % MCV (80.0-105.0) fl MCH (25.0-35.0) pg MCHC (31.0-37.0) g/dl RDW (11.5-14.5) % Plt Count (120.0-450.0) 10^3/uL Manual Plt Count (120-450) K/mm3 Gran % (50.0-68.0) % Lymph % (Auto) (22.0-35.0) % [place] % (Auto) (1.0-6.0) % Eos % (Auto) (1.5-5.0) % Baso % (Auto) (0.0-3.0) % Gran # (1.4-6.5) Lymph # (Auto) (1.2-3.4) [place] # (Auto) (0.1-0.6) Eos # (Auto) (0.0-0.7) Baso # (Auto) (0.0-2.0) K/mm3 Platelet Evaluation (NORMAL) ESR (0.00-15.0) mm/hr Fibrin Degrad Products (< 10 ug/mL) pCO2 (35-45) mm/Hg pO2 (80-100) mm/Hg HCO3 (21-28) mmol/L ABG pH (7.35-7.45) ABG Total CO2 (22-28) mmol.L ABG O2 Saturation (95-98) % ABG O2 Content (15-23) ML/dl ABG Base Excess (-2.0-3.0) mmol/L ABG Hemoglobin (11.7-17.4) g/dL ABG Carboxyhemoglobin (0.5-1.5) % POC ABG HHb (Measured) (0-5) % ABG Methemoglobin (0.0-3.0) % ABG O2 Capacity (16-24) mL/dl Hgb O2 Saturation (95.0-98.0) % FiO2 % Sodium 144 143 (132-148) mmol/L Potassium 7.2 H* 7.8 H* D (3.6-5.0) mmol/L Chloride 112 H 112 H (98-107) mmol/L Carbon Dioxide 22 22 (21-33) mmol/L Anion Gap 17 17 (10-20) BUN 124 H* 120 H (7-21) mg/dL Creatinine 3.6 H 3.4 H (0.8-1.5) mg/dl Est GFR ( Amer) 21 22 Est GFR (Non-Af Amer) 17 18 POC Glucose (mg/dL) (65-110) mg/dL Random Glucose 334 H* 332 H* D (70-110) mg/dL Calcium 7.8 L 7.7 L (8.4-10.5) mg/dL Phosphorus 11.0 H (2.5-4.5) mg/dL Magnesium 3.2 H (1.7-2.2) mg/dL Total Bilirubin 1.0 (0.2-1.3) mg/dL AST 558 H D (17-59) U/L ALT 687 H (7-56) U/L Alkaline Phosphatase 72 (38-126) U/L Total Creatine Kinase 1072 H (35-230) U/L CK-MB (CK-2) 4.8 H (0.0-3.6) ng/mL CK-MB (CK-2) % Cancelled Total Protein 6.3 (5.8-8.3) g/dL Albumin 3.4 (3.0-4.8) g/dL Globulin 2.9 gm/dL Albumin/Globulin Ratio 1.2 (1.1-1.8) Random Vancomycin 19.1 L (20-40) ug/mL Ur Strep pneumoniae Ag (Not Detected) 07/07/18 07/07/18 07/03/18 Range/Units 07:55 07:27 08:23 WBC 8.1 D (4.5-11.0) 10^3/uL RBC 3.65 (3.5-6.1) 10^6/uL Hgb 9.5 L (14.0-18.0) g/dL Hct 32.8 L (42.0-52.0) % MCV 89.9 D (80.0-105.0) fl MCH 26.0 (25.0-35.0) pg MCHC 29.0 L (31.0-37.0) g/dl RDW 17.4 H (11.5-14.5) % Plt Count 9 L* (120.0-450.0) 10^3/uL Manual Plt Count 10 L* (120-450) K/mm3 Gran % 87.5 H (50.0-68.0) % Lymph % (Auto) 7.3 L (22.0-35.0) % [place] % (Auto) 5.0 (1.0-6.0) % Eos % (Auto) 0.0 L (1.5-5.0) % Baso % (Auto) 0.2 (0.0-3.0) % Gran # 7.07 H (1.4-6.5) Lymph # (Auto) 0.6 L (1.2-3.4) [place] # (Auto) 0.4 (0.1-0.6) Eos # (Auto) 0.0 (0.0-0.7) Baso # (Auto) 0.02 (0.0-2.0) K/mm3 Platelet Evaluation (NORMAL) ESR (0.00-15.0) mm/hr Fibrin Degrad Products (< 10 ug/mL) pCO2 (35-45) mm/Hg pO2 (80-100) mm/Hg HCO3 (21-28) mmol/L ABG pH (7.35-7.45) ABG Total CO2 (22-28) mmol.L ABG O2 Saturation (95-98) % ABG O2 Content (15-23) ML/dl ABG Base Excess (-2.0-3.0) mmol/L ABG Hemoglobin (11.7-17.4) g/dL ABG Carboxyhemoglobin (0.5-1.5) % POC ABG HHb (Measured) (0-5) % ABG Methemoglobin (0.0-3.0) % ABG O2 Capacity (16-24) mL/dl Hgb O2 Saturation (95.0-98.0) % FiO2 % Sodium (132-148) mmol/L Potassium (3.6-5.0) mmol/L Chloride (98-107) mmol/L Carbon Dioxide (21-33) mmol/L Anion Gap (10-20) BUN (7-21) mg/dL Creatinine (0.8-1.5) mg/dl Est GFR ( Amer) Est GFR (Non-Af Amer) POC Glucose (mg/dL) 326 H (65-110) mg/dL Random Glucose (70-110) mg/dL Calcium (8.4-10.5) mg/dL Phosphorus (2.5-4.5) mg/dL Magnesium (1.7-2.2) mg/dL Total Bilirubin (0.2-1.3) mg/dL AST (17-59) U/L ALT (7-56) U/L Alkaline Phosphatase (38-126) U/L Total Creatine Kinase (35-230) U/L CK-MB (CK-2) (0.0-3.6) ng/mL CK-MB (CK-2) % Total Protein (5.8-8.3) g/dL Albumin (3.0-4.8) g/dL Globulin gm/dL Albumin/Globulin Ratio (1.1-1.8) Random Vancomycin (20-40) ug/mL Ur Strep pneumoniae Ag Not detected (Not Detected) Laboratory Results - last 24 hr 07/03/18 07/07/18 07/07/18 08:23 07:27 07:55 WBC 8.1 D RBC 3.65 Hgb 9.5 L Hct 32.8 L MCV 89.9 D MCH 26.0 MCHC 29.0 L RDW 17.4 H Plt Count 9 L* Manual Plt Count 10 L* Gran % 87.5 H Lymph % (Auto) 7.3 L [place] % (Auto) 5.0 Eos % (Auto) 0.0 L Baso % (Auto) 0.2 Gran # 7.07 H Lymph # (Auto) 0.6 L [place] # (Auto) 0.4 Eos # (Auto) 0.0 Baso # (Auto) 0.02 Platelet Evaluation ESR Fibrin Degrad Products pCO2 pO2 HCO3 ABG pH ABG Total CO2 ABG O2 Saturation ABG O2 Content ABG Base Excess ABG Hemoglobin ABG Carboxyhemoglobin POC ABG HHb (Measured) ABG Methemoglobin ABG O2 Capacity Hgb O2 Saturation FiO2 Sodium Potassium Chloride Carbon Dioxide Anion Gap BUN Creatinine Est GFR ( Amer) Est GFR (Non-Af Amer) POC Glucose (mg/dL) 326 H Random Glucose Calcium Phosphorus Magnesium Total Bilirubin AST ALT Alkaline Phosphatase Total Creatine Kinase CK-MB (CK-2) CK-MB (CK-2) % Total Protein Albumin Globulin Albumin/Globulin Ratio Random Vancomycin Ur Strep pneumoniae Ag Not detected 07/07/18 07/07/18 07/07/18 07:55 07:55 11:30 WBC RBC Hgb Hct MCV MCH MCHC RDW Plt Count Manual Plt Count Gran % Lymph % (Auto) [place] % (Auto) Eos % (Auto) Baso % (Auto) Gran # Lymph # (Auto) [place] # (Auto) Eos # (Auto) Baso # (Auto) Platelet Evaluation ESR Fibrin Degrad Products pCO2 pO2 HCO3 ABG pH ABG Total CO2 ABG O2 Saturation ABG O2 Content ABG Base Excess ABG Hemoglobin ABG Carboxyhemoglobin POC ABG HHb (Measured) ABG Methemoglobin ABG O2 Capacity Hgb O2 Saturation FiO2 Sodium 143 144 Potassium 7.8 H* D 7.2 H* Chloride 112 H 112 H Carbon Dioxide 22 22 Anion Gap 17 17 BUN 120 H 124 H* Creatinine 3.4 H 3.6 H Est GFR ( Amer) 22 21 Est GFR (Non-Af Amer) 18 17 POC Glucose (mg/dL) Random Glucose 332 H* D 334 H* Calcium 7.7 L 7.8 L Phosphorus 11.0 H Magnesium 3.2 H Total Bilirubin 1.0 AST 558 H D ALT 687 H Alkaline Phosphatase 72 Total Creatine Kinase 1072 H CK-MB (CK-2) 4.8 H CK-MB (CK-2) % Cancelled Total Protein 6.3 Albumin 3.4 Globulin 2.9 Albumin/Globulin Ratio 1.2 Random Vancomycin 19.1 L Ur Strep pneumoniae Ag 07/07/18 07/07/18 07/07/18 11:58 12:00 12:57 WBC 6.7 RBC 3.65 Hgb 9.5 L Hct 32.8 L MCV 89.9 MCH 26.0 MCHC 29.0 L RDW 17.4 H Plt Count 7 L* Manual Plt Count Gran % 89.9 H Lymph % (Auto) 5.8 L [place] % (Auto) 4.2 Eos % (Auto) 0.0 L Baso % (Auto) 0.1 Gran # 6.03 Lymph # (Auto) 0.4 L [place] # (Auto) 0.3 Eos # (Auto) 0.0 Baso # (Auto) 0.01 Platelet Evaluation Low ESR 45 H Fibrin Degrad Products pCO2 57 H pO2 124.0 H HCO3 20.3 L ABG pH 7.16 L* ABG Total CO2 22.0 ABG O2 Saturation 99.1 H ABG O2 Content 12.9 L ABG Base Excess -8.3 L ABG Hemoglobin 9.3 L ABG Carboxyhemoglobin 1.5 POC ABG HHb (Measured) 0.9 ABG Methemoglobin 0.9 ABG O2 Capacity 13.0 L Hgb O2 Saturation 96.7 FiO2 60.0 Sodium Potassium Chloride Carbon Dioxide Anion Gap BUN Creatinine Est GFR ( Amer) Est GFR (Non-Af Amer) POC Glucose (mg/dL) 309 H Random Glucose Calcium Phosphorus Magnesium Total Bilirubin AST ALT Alkaline Phosphatase Total Creatine Kinase CK-MB (CK-2) CK-MB (CK-2) % Total Protein Albumin Globulin Albumin/Globulin Ratio Random Vancomycin Ur Strep pneumoniae Ag 07/07/18 07/07/18 07/07/18 16:10 16:10 16:21 WBC RBC Hgb Hct MCV MCH MCHC RDW Plt Count Manual Plt Count Gran % Lymph % (Auto) [place] % (Auto) Eos % (Auto) Baso % (Auto) Gran # Lymph # (Auto) [place] # (Auto) Eos # (Auto) Baso # (Auto) Platelet Evaluation ESR Fibrin Degrad Products >10 <40 ug/ml pCO2 pO2 HCO3 ABG pH ABG Total CO2 ABG O2 Saturation ABG O2 Content ABG Base Excess ABG Hemoglobin ABG Carboxyhemoglobin POC ABG HHb (Measured) ABG Methemoglobin ABG O2 Capacity Hgb O2 Saturation FiO2 Sodium 144 Potassium 6.3 H* Chloride 112 H Carbon Dioxide 21 Anion Gap 17 BUN 132 H* Creatinine 3.8 H Est GFR ( Amer) 20 Est GFR (Non-Af Amer) 16 POC Glucose (mg/dL) 328 H Random Glucose 351 H* Calcium 7.8 L Phosphorus Magnesium Total Bilirubin AST ALT Alkaline Phosphatase Total Creatine Kinase CK-MB (CK-2) CK-MB (CK-2) % Total Protein Albumin Globulin Albumin/Globulin Ratio Random Vancomycin Ur Strep pneumoniae Ag 07/07/18 07/08/18 07/08/18 21:23 05:30 05:30 WBC 5.2 D RBC 3.19 L Hgb 8.3 L Hct 27.0 L MCV 84.6 D MCH 26.0 MCHC 30.7 L RDW 17.0 H Plt Count 11 L* Manual Plt Count Gran % 87.6 H Lymph % (Auto) 6.7 L [place] % (Auto) 5.5 Eos % (Auto) 0.0 L Baso % (Auto) 0.2 Gran # 4.58 Lymph # (Auto) 0.4 L [place] # (Auto) 0.3 Eos # (Auto) 0.0 Baso # (Auto) 0.01 Platelet Evaluation ESR Fibrin Degrad Products pCO2 pO2 HCO3 ABG pH ABG Total CO2 ABG O2 Saturation ABG O2 Content ABG Base Excess ABG Hemoglobin ABG Carboxyhemoglobin POC ABG HHb (Measured) ABG Methemoglobin ABG O2 Capacity Hgb O2 Saturation FiO2 Sodium 141 Potassium 4.2 Chloride 105 Carbon Dioxide 26 Anion Gap 14 BUN 98 H Creatinine 3.9 H Est GFR ( Amer) 19 Est GFR (Non-Af Amer) 16 POC Glucose (mg/dL) 199 H Random Glucose 269 H Calcium 7.4 L Phosphorus Magnesium Total Bilirubin 0.9 AST 270 H D ALT 476 H Alkaline Phosphatase 69 Total Creatine Kinase CK-MB (CK-2) CK-MB (CK-2) % Total Protein 5.8 Albumin 3.0 Globulin 2.9 Albumin/Globulin Ratio 1.0 L Random Vancomycin Ur Strep pneumoniae Ag Radiology Impressions: Radiology Impressions Chest X-Ray 07/07/18 06:00 IMPRESSION: Stable tubes and lines. Stable pulmonary vascular congestion. Similar right basilar infiltrate. Improved left lung aeration with similar wall confluent infiltrate in the left mid lung. Small bilateral effusions not excluded. EKG/Cardiology Studies: Cardiology / EKG Studies 07/07/18 11:36 EKG [ELECTROCARDIOGRAM] Stat Comment: Reason For Exam: kyperkalemia, septic shock 07/08/18 06:00 EKG [ELECTROCARDIOGRAM] DAILY Comment: Reason For Exam: Hyperkalemia 07/09/18 06:00 EKG [ELECTROCARDIOGRAM] DAILY Comment: Reason For Exam: Hyperkalemia 07/10/18 06:00 EKG [ELECTROCARDIOGRAM] DAILY Comment: Reason For Exam: Hyperkalemia 07/11/18 06:00 EKG [ELECTROCARDIOGRAM] DAILY Comment: Reason For Exam: Hyperkalemia 07/12/18 06:00 EKG [ELECTROCARDIOGRAM] DAILY Comment: Reason For Exam: Hyperkalemia Fingerstick Blood Sugar Results: 328 Review of Systems - Review of Systems Review of Systems: 12 point ROS unable to be obtained due to clinical condition Critical Care Progress Note - Nutrition Nutrition: Nutrition Category Date Time Status NPO Diet [DIET] Diets 07/06/18 Breakfast Ordered Assessment/Plan - Assessment and Plan (Free Text) Assessment: 62yo male with PMHx of COPD, active smoker 1pk per day, HTN, DM, PVD, presents with ER with 2 day history of fever, chills, associated with cough that is non- productive. Yesterday, patient also developed SOB. Pt denies sick contacts, recent travel, CP, palpitations, CARTY, dizziness. In the ER, patient was noted to be hypoxic at 78%, on 2L NC, subsequently placed on BIPAP. No other constitutional symptoms. Pt was found to have increased work of breathing, RR 35-40, subsequently intubated. Placed on low tidal vol. ventilation. Patient was initially started on heparin drip given elevated troponin, and markedly diminished EF. Hep drip currently held secondary to thrombocytopenia. Initially paralyzed on Nimbex after overbreathing ventilator. Currently MODS and ARDS. Nimbex discontinued. Neuro: - AAOx0, on sedation - pt. responds to painful stimuli - continue to monitor Pulm CAP and Flu A + 07/03/18 CXR: Stable pulm parenchymal infiltrates affecting R lung. Satisfactory position of endotracheal tube 07/03/18 CT chest: extensive alveolar infiltrate throughout R lung, consistent with PNA 07/04/18 CXR shows stable pulm parenchymal infiltrates, R>L. 07/03/18 ABG shows non anion gap metabolic acidosis 07/04/18 ABG shows metabolic acidosis 07/05/18 ABG shows improved metabolic acidosis 07/06/18 ABG shows worsening P/F ratio 07/06/18 CXR shows moderate cardiomegaly, severe vascular congestion showing slight improvement 07/07/18 CXR shows improvement in R vascular congestion 07/07/18 ABG shows improvement on permissive hypercapnea and low TV per ARDSNET trial. FiO2 down to 40% 07/08/18 ABG shows resp. acidosis 07/08/18 CXR shows worsening ARDS - duonebs seema q6 and PRN q2 - Continue Solumedrol 60mg IV Daily - Tamiflu renally dosed BID day #5 - Abx: Levaquin 500 q48hr and Merrem 500 BID for possible secondary bacterial infection - Urine Lg and Strep negative - Procal 4.85 - ID eval: Dr. Fernandes - recs appreciated - Pulm consulted - Dr. Burr, recs appreciated - Resp therapy Cardio HFrEF - BNP [id number], although CXR only shows one sided infilatrate - 07/03/18 echo report shows EF 14.2%, mildly dilated LV, systolic function severely impaired, akinetic septum, moderate TR and pulm HTN - Continue Dobutamine drip to 5 mcg for pressure support NSTEMI - Trop 0.48, 0.67, 0.67 - Cardiology consulted - Dr. Saxena. Cardiac cath on hold due to persistent thrombocytopenia. Hold Lasix per cardio. Further recs appreciated. - Hold IVF d/t poor EF. - Hold Heparin drip - 07/07/18 EKG showed sinus tach - 07/08/18 EKG shows NSR, no ST or T wave changes, LVH Chronic Thrombocytopenia, ITP - has received frequent intermittent transfusions as outpatient per medical record - 11, manual count 17 - HIT Antibody negative - Hem consult placed- Dr. Estevez. 2 unit PLT transfused 07/06/18. 25 gm IV gammaglobulin day 2 of 4 total. 1 unit platelet to be transfused today. Further recs appreciated per Dr. Estevez. - F/u Peripheral smear, CRP, IVONE and ANCA studies - ESR 45 - Split products pending Stable Normocytic Anemia - Hgb 8.3 this AM, no obvious sign of bleed, f/u FOBT GI - NGT in place Uncontrolled DM - Hgb a1c 8.2, accuchecks ACHS - Diabetic education Lipid panel - TG elevated at 172 Shock liver Transaminitis AST /ALT 307/224 > 543/409> 592/570> 717/746> 558/687> 270/476, normal Alk Phos. Hold hepatotoxic drugs Hep panel negative - 07/03/18 RUQ U/S shows hepatosplenomegaly PTX for Ppx Nephro OG on HD - Tolerated first HD yesterday evening s/p triple lumen catheter in L femoral vein. - Currently holding IVF and Diuretics per cardio. Nephro input appreciated - Strict Is and Os. Output has decreased over last 3 days. - Ash in place. - Nephro consult - recs appreciated - Non-oliguric ATN in the setting of sepsis and mild hypotension; may have cardiorenal component in the setting of severely depressed biventricular dysfunction; has already received adequate amount of intravascular volume repletion and having good urine output - urine Cr 53, urine Na 49 - F/U fibrin splits products and peripheral smear for possible superimposed HUS in light of worsening renal function HD - Performed with Dr. Mcnamara, completed 2.5 hrs initial dialysis, tolerated UF 1000ml per report. MSK - Wound care consulted - Podiatry consulted- Dr. Richardson- recs appreciated- no acute intervention at this time. - OT/PT eval ID - No further fevers overnight, Resolved Leukocytosis 6.5 - Rapid influenza A positive > Tamiflu renally dosed at 30 mg BID day 5 - ID eval: Dr. Fernandes - further recs appreciated. - 1 dose Vanc given 07/05/18 and 07/06/18. Random Vanc 19.1 07/07/18. - Sputum cx shows yeast species, blood cx neg after 5 days - GI ppx: PTX - DVT ppx: Hep drip held in light of thrombocytopenia Patient seen, case reviewed and plan approved by Dr. Sung. Ismael Turner, PGY-1 <Golden Sung - Last Filed: 07/08/18 15:47> CCU Objective - Vital Signs / Intake & Output Vital Signs (Last 4 hours): Vital Signs Temp Pulse Resp Pulse Ox 07/08/18 13:29 31 H 94 L 07/08/18 12:55 98.6 F 119 H 34 H 94 L 07/08/18 12:54 98.6 F 117 H 32 H 94 L 07/08/18 12:53 98.6 F 118 H 32 H 94 L 07/08/18 12:52 98.6 F 119 H 35 H 94 L 07/08/18 12:51 98.4 F 118 H 32 H 94 L 07/08/18 12:50 98.4 F 117 H 34 H 94 L 07/08/18 12:49 98.4 F 122 H 27 H 95 07/08/18 12:48 98.4 F 119 H 29 H 95 07/08/18 12:47 98.4 F 120 H 33 H 94 L 07/08/18 12:46 98.4 F 118 H 30 H 94 L 07/08/18 12:45 98.4 F 119 H 32 H 95 07/08/18 12:44 98.4 F 119 H 37 H 94 L 07/08/18 12:43 98.4 F 118 H 33 H 94 L 07/08/18 12:42 98.4 F 119 H 36 H 94 L 07/08/18 12:41 98.4 F 117 H 42 H 94 L 07/08/18 12:40 98.4 F 116 H 34 H 95 07/08/18 12:39 98.4 F 117 H 32 H 95 07/08/18 12:38 98.4 F 116 H 27 H 94 L 07/08/18 12:37 98.4 F 113 H 32 H 94 L 07/08/18 12:36 98.4 F 116 H 32 H 94 L 07/08/18 12:35 98.4 F 116 H 28 H 94 L 07/08/18 12:34 98.4 F 114 H 30 H 94 L 07/08/18 12:33 98.4 F 115 H 30 H 95 07/08/18 12:32 98.4 F 115 H 32 H 94 L 07/08/18 12:31 98.4 F 113 H 31 H 94 L 07/08/18 12:30 98.4 F 111 H 30 H 95 07/08/18 12:29 98.4 F 114 H 29 H 95 07/08/18 12:28 98.4 F 114 H 26 H 95 07/08/18 12:27 98.4 F 113 H 33 H 94 L 07/08/18 12:26 98.4 F 113 H 24 95 07/08/18 12:25 98.4 F 109 H 23 94 L 07/08/18 12:24 98.4 F 112 H 28 H 94 L 07/08/18 12:23 98.4 F 109 H 23 95 07/08/18 12:22 98.4 F 107 H 25 H 94 L 07/08/18 12:21 98.4 F 106 H 22 94 L 07/08/18 12:20 98.4 F 111 H 28 H 94 L 07/08/18 12:19 98.4 F 109 H 27 H 94 L 07/08/18 12:18 98.4 F 106 H 21 94 L 07/08/18 12:17 98.4 F 107 H 23 94 L 07/08/18 12:16 98.4 F 107 H 22 94 L 07/08/18 12:15 98.4 F 110 H 23 94 L 07/08/18 12:14 98.4 F 112 H 27 H 95 07/08/18 12:13 98.4 F 114 H 24 94 L 07/08/18 12:12 98.2 F 107 H 24 95 07/08/18 12:11 98.2 F 110 H 28 H 94 L 07/08/18 12:10 98.2 F 107 H 22 95 07/08/18 12:09 98.2 F 105 H 22 94 L 07/08/18 12:08 98.2 F 111 H 31 H 93 L 07/08/18 12:07 98.2 F 109 H 27 H 94 L 07/08/18 12:06 98.2 F 108 H 22 94 L 07/08/18 12:00 118 H Intake and Output (Last 8hrs): Intake & Output 07/08/18 07/08/18 07/08/18 06:59 14:59 22:59 Intake Total 680 780 5 Output Total 200 Balance 480 780 5 Intake: IV 680 480 5 ATB 100 Fentanyl 20 IVPB 400 dobutamine 360 propofol 100 Oral 0 Tube Feeding 300 Output: Urine 200 Urethral (Ash) 200 Other: # Bowel Movements 1 1 - Medications Active Medications: Active Medications Generic Name Dose Route Start Last Admin Trade Name Freq PRN Reason Stop Dose Admin Albuterol/Ipratropium 3 ml 07/03/18 14:00 07/08/18 07:27 Duoneb 3 Mg/0.5 Mg (3 Ml) Ud IH 3 ml [id number] SEEMA Administration Albuterol/Ipratropium 3 ml 07/03/18 11:04 Duoneb 3 Mg/0.5 Mg (3 Ml) Ud IH Q2H PRN Shortness of Breath Levofloxacin/Dextrose 500 mg in 100 mls @ 100 mls/hr 07/04/18 07:00 07/08/18 08:45 Levaquin 500mg IVPB 100 mls/hr Q48H SEEMA Administration Protocol Propofol 1,000 mg in 100 mls @ 2.79 mls/hr 07/03/18 16:11 07/08/18 15:09 Diprivan IV 50 mcg/kg/min .Q24H PRN 27.896 mls/hr TITRATE PER MD ORDER Titration Protocol 5 MCG/KG/MIN Fentanyl Citrate 1,000 mcg in 100 mls @ 10 mls/hr 07/03/18 16:44 07/06/18 19:20 Fentanyl Citrate/Sodium Chloride 1 Mg/100 Ml IV 10 mcg/hr .Q10H PRN 1 mls/hr TITRATE PER MD ORDER Titration Protocol 100 MCG/HR Heparin Sodium/Sodium Chloride 25,000 units in 250 mls @ 7.802 mls/hr 07/05/18 01:00 07/05/18 08:58 Heparin 54913 Units/250ml 1/2 Normal Saline IV Not Given .Q24H SEEMA Protocol 8 UNITS/KG/HR Cisatracurium Besylate 200 mg/ 270 mls @ 3.95 mls/hr 07/06/18 15:44 07/08/18 09:20 Sodium Chloride IV 0 mcg/kg/min .Q24H PRN 0 mls/hr TITRATE PER MD ORDER Titration Protocol 0.5 MCG/KG/MIN Immune Globulin 25 gm/ 250 mls @ 55 mls/hr 07/07/18 14:00 07/08/18 10:15 Miscellaneous IV 55 mls/hr DAILY SEEMA Administration Dobutamine HCl/Dextrose 500 mg in 250 mls @ 7.314 mls/hr 07/08/18 10:00 Dobutamine/Dextrose 5% 500mg/250ml IV .Q24H PRN Cardiac contractility 2.5 MCG/KG/MIN Insulin Human Regular 0 units 07/03/18 22:00 07/08/18 11:30 Humulin R Med SC 5 units ACHS SEEMA Administration Protocol Methylprednisolone 60 mg 07/07/18 10:00 07/08/18 10:59 Solu-Medrol IVP 60 mg DAILY SEEMA Administration Oseltamivir Phosphate 30 mg 07/04/18 10:00 07/08/18 11:04 Tamiflu Susp PO 5 ml Q12 SEEMA Administration Pantoprazole Sodium 40 mg 07/03/18 14:15 07/08/18 10:14 Protonix Inj IVP 40 mg DAILY SEEMA Administration - Patient Studies Lab Studies: Microbiology Studies 07/03/18 09:45 Blood Culture - Final Blood NO GROWTH AFTER 5 DAYS Gram Stain - Final TEST NOT PERFORMED 07/03/18 09:25 Blood Culture - Final Blood NO GROWTH AFTER 5 DAYS Gram Stain - Final TEST NOT PERFORMED Lab Studies 07/08/18 07/08/18 07/08/18 Range/Units 14:30 11:46 08:50 WBC (4.5-11.0) 10^3/uL RBC (3.5-6.1) 10^6/uL Hgb (14.0-18.0) g/dL Hct (42.0-52.0) % MCV (80.0-105.0) fl MCH (25.0-35.0) pg MCHC (31.0-37.0) g/dl RDW (11.5-14.5) % Plt Count (120.0-450.0) 10^3/uL Manual Plt Count (120-450) K/mm3 Gran % (50.0-68.0) % Lymph % (Auto) (22.0-35.0) % [place] % (Auto) (1.0-6.0) % Eos % (Auto) (1.5-5.0) % Baso % (Auto) (0.0-3.0) % Gran # (1.4-6.5) Lymph # (Auto) (1.2-3.4) [place] # (Auto) (0.1-0.6) Eos # (Auto) (0.0-0.7) Baso # (Auto) (0.0-2.0) K/mm3 Differential Comment Platelet Evaluation (NORMAL) Fibrin Degrad Products (< 10 ug/mL) pCO2 39 (35-45) mm/Hg pO2 187.0 H (80-100) mm/Hg HCO3 23.6 (21-28) mmol/L ABG pH 7.39 (7.35-7.45) ABG Total CO2 24.8 (22-28) mmol.L ABG O2 Saturation 99.1 H (95-98) % ABG O2 Content 11.9 L (15-23) ML/dl ABG Base Excess -1.2 (-2.0-3.0) mmol/L ABG Hemoglobin 8.4 L (11.7-17.4) g/dL ABG Carboxyhemoglobin 1.1 (0.5-1.5) % POC ABG HHb (Measured) 0.9 (0-5) % ABG Methemoglobin 0.6 (0.0-3.0) % ABG O2 Capacity 12.0 L (16-24) mL/dl Hgb O2 Saturation 97.3 (95.0-98.0) % FiO2 60.0 % Sodium (132-148) mmol/L Potassium (3.6-5.0) mmol/L Chloride (98-107) mmol/L Carbon Dioxide (21-33) mmol/L Anion Gap (10-20) BUN (7-21) mg/dL Creatinine (0.8-1.5) mg/dl Est GFR ( Amer) Est GFR (Non-Af Amer) POC Glucose (mg/dL) 277 H (65-110) mg/dL Random Glucose (70-110) mg/dL Calcium (8.4-10.5) mg/dL Total Bilirubin (0.2-1.3) mg/dL AST (17-59) U/L ALT (7-56) U/L Alkaline Phosphatase (38-126) U/L C-React Prot High Sens (1.00-3.00) mg/L Total Protein (5.8-8.3) g/dL Albumin (3.0-4.8) g/dL Globulin gm/dL Albumin/Globulin Ratio (1.1-1.8) Proteinase 3 (PR3) (<1.0) AI Myeloperoxidase Ab (<1.0) AI Heparin-induced Plt Ab (Negative) Hep-Induced Plt Ab Cmmt Blood Type O POSITIVE Antibody Screen Negative BBK History Checked Patient has bt 07/08/18 07/08/18 07/07/18 Range/Units 05:30 05:30 21:23 WBC 5.2 D (4.5-11.0) 10^3/uL RBC 3.19 L (3.5-6.1) 10^6/uL Hgb 8.3 L (14.0-18.0) g/dL Hct 27.0 L (42.0-52.0) % MCV 84.6 D (80.0-105.0) fl MCH 26.0 (25.0-35.0) pg MCHC 30.7 L (31.0-37.0) g/dl RDW 17.0 H (11.5-14.5) % Plt Count 11 L* (120.0-450.0) 10^3/uL Manual Plt Count 17 L* (120-450) K/mm3 Gran % 87.6 H (50.0-68.0) % Lymph % (Auto) 6.7 L (22.0-35.0) % [place] % (Auto) 5.5 (1.0-6.0) % Eos % (Auto) 0.0 L (1.5-5.0) % Baso % (Auto) 0.2 (0.0-3.0) % Gran # 4.58 (1.4-6.5) Lymph # (Auto) 0.4 L (1.2-3.4) [place] # (Auto) 0.3 (0.1-0.6) Eos # (Auto) 0.0 (0.0-0.7) Baso # (Auto) 0.01 (0.0-2.0) K/mm3 Differential Comment Platelet Evaluation Low (NORMAL) Fibrin Degrad Products (< 10 ug/mL) pCO2 (35-45) mm/Hg pO2 (80-100) mm/Hg HCO3 (21-28) mmol/L ABG pH (7.35-7.45) ABG Total CO2 (22-28) mmol.L ABG O2 Saturation (95-98) % ABG O2 Content (15-23) ML/dl ABG Base Excess (-2.0-3.0) mmol/L ABG Hemoglobin (11.7-17.4) g/dL ABG Carboxyhemoglobin (0.5-1.5) % POC ABG HHb (Measured) (0-5) % ABG Methemoglobin (0.0-3.0) % ABG O2 Capacity (16-24) mL/dl Hgb O2 Saturation (95.0-98.0) % FiO2 % Sodium 141 (132-148) mmol/L Potassium 4.2 (3.6-5.0) mmol/L Chloride 105 (98-107) mmol/L Carbon Dioxide 26 (21-33) mmol/L Anion Gap 14 (10-20) BUN 98 H (7-21) mg/dL Creatinine 3.9 H (0.8-1.5) mg/dl Est GFR ( Amer) 19 Est GFR (Non-Af Amer) 16 POC Glucose (mg/dL) 199 H (65-110) mg/dL Random Glucose 269 H (70-110) mg/dL Calcium 7.4 L (8.4-10.5) mg/dL Total Bilirubin 0.9 (0.2-1.3) mg/dL AST 270 H D (17-59) U/L ALT 476 H (7-56) U/L Alkaline Phosphatase 69 (38-126) U/L C-React Prot High Sens (1.00-3.00) mg/L Total Protein 5.8 (5.8-8.3) g/dL Albumin 3.0 (3.0-4.8) g/dL Globulin 2.9 gm/dL Albumin/Globulin Ratio 1.0 L (1.1-1.8) Proteinase 3 (PR3) (<1.0) AI Myeloperoxidase Ab (<1.0) AI Heparin-induced Plt Ab (Negative) Hep-Induced Plt Ab Cmmt Blood Type Antibody Screen BBK History Checked 07/07/18 07/07/18 07/07/18 Range/Units 16:21 16:10 16:10 WBC (4.5-11.0) 10^3/uL RBC (3.5-6.1) 10^6/uL Hgb (14.0-18.0) g/dL Hct (42.0-52.0) % MCV (80.0-105.0) fl MCH (25.0-35.0) pg MCHC (31.0-37.0) g/dl RDW (11.5-14.5) % Plt Count (120.0-450.0) 10^3/uL Manual Plt Count (120-450) K/mm3 Gran % (50.0-68.0) % Lymph % (Auto) (22.0-35.0) % [place] % (Auto) (1.0-6.0) % Eos % (Auto) (1.5-5.0) % Baso % (Auto) (0.0-3.0) % Gran # (1.4-6.5) Lymph # (Auto) (1.2-3.4) [place] # (Auto) (0.1-0.6) Eos # (Auto) (0.0-0.7) Baso # (Auto) (0.0-2.0) K/mm3 Differential Comment Platelet Evaluation (NORMAL) Fibrin Degrad Products >10 <40 ug/ml (< 10 ug/mL) pCO2 (35-45) mm/Hg pO2 (80-100) mm/Hg HCO3 (21-28) mmol/L ABG pH (7.35-7.45) ABG Total CO2 (22-28) mmol.L ABG O2 Saturation (95-98) % ABG O2 Content (15-23) ML/dl ABG Base Excess (-2.0-3.0) mmol/L ABG Hemoglobin (11.7-17.4) g/dL ABG Carboxyhemoglobin (0.5-1.5) % POC ABG HHb (Measured) (0-5) % ABG Methemoglobin (0.0-3.0) % ABG O2 Capacity (16-24) mL/dl Hgb O2 Saturation (95.0-98.0) % FiO2 % Sodium 144 (132-148) mmol/L Potassium 6.3 H* (3.6-5.0) mmol/L Chloride 112 H (98-107) mmol/L Carbon Dioxide 21 (21-33) mmol/L Anion Gap 17 (10-20) BUN 132 H* (7-21) mg/dL Creatinine 3.8 H (0.8-1.5) mg/dl Est GFR ( Amer) 20 Est GFR (Non-Af Amer) 16 POC Glucose (mg/dL) 328 H (65-110) mg/dL Random Glucose 351 H* (70-110) mg/dL Calcium 7.8 L (8.4-10.5) mg/dL Total Bilirubin (0.2-1.3) mg/dL AST (17-59) U/L ALT (7-56) U/L Alkaline Phosphatase (38-126) U/L C-React Prot High Sens (1.00-3.00) mg/L Total Protein (5.8-8.3) g/dL Albumin (3.0-4.8) g/dL Globulin gm/dL Albumin/Globulin Ratio (1.1-1.8) Proteinase 3 (PR3) (<1.0) AI Myeloperoxidase Ab (<1.0) AI Heparin-induced Plt Ab (Negative) Hep-Induced Plt Ab Cmmt Blood Type Antibody Screen BBK History Checked 07/07/18 07/07/18 07/07/18 Range/Units 16:10 12:00 11:49 WBC (4.5-11.0) 10^3/uL RBC (3.5-6.1) 10^6/uL Hgb (14.0-18.0) g/dL Hct (42.0-52.0) % MCV (80.0-105.0) fl MCH (25.0-35.0) pg MCHC (31.0-37.0) g/dl RDW (11.5-14.5) % Plt Count (120.0-450.0) 10^3/uL Manual Plt Count (120-450) K/mm3 Gran % (50.0-68.0) % Lymph % (Auto) (22.0-35.0) % [place] % (Auto) (1.0-6.0) % Eos % (Auto) (1.5-5.0) % Baso % (Auto) (0.0-3.0) % Gran # (1.4-6.5) Lymph # (Auto) (1.2-3.4) [place] # (Auto) (0.1-0.6) Eos # (Auto) (0.0-0.7) Baso # (Auto) (0.0-2.0) K/mm3 Differential Comment See pathology report Platelet Evaluation (NORMAL) Fibrin Degrad Products (< 10 ug/mL) pCO2 (35-45) mm/Hg pO2 (80-100) mm/Hg HCO3 (21-28) mmol/L ABG pH (7.35-7.45) ABG Total CO2 (22-28) mmol.L ABG O2 Saturation (95-98) % ABG O2 Content (15-23) ML/dl ABG Base Excess (-2.0-3.0) mmol/L ABG Hemoglobin (11.7-17.4) g/dL ABG Carboxyhemoglobin (0.5-1.5) % POC ABG HHb (Measured) (0-5) % ABG Methemoglobin (0.0-3.0) % ABG O2 Capacity (16-24) mL/dl Hgb O2 Saturation (95.0-98.0) % FiO2 % Sodium (132-148) mmol/L Potassium (3.6-5.0) mmol/L Chloride (98-107) mmol/L Carbon Dioxide (21-33) mmol/L Anion Gap (10-20) BUN (7-21) mg/dL Creatinine (0.8-1.5) mg/dl Est GFR ( Amer) Est GFR (Non-Af Amer) POC Glucose (mg/dL) (65-110) mg/dL Random Glucose (70-110) mg/dL Calcium (8.4-10.5) mg/dL Total Bilirubin (0.2-1.3) mg/dL AST (17-59) U/L ALT (7-56) U/L Alkaline Phosphatase (38-126) U/L C-React Prot High Sens > 15.00 H (1.00-3.00) mg/L Total Protein (5.8-8.3) g/dL Albumin (3.0-4.8) g/dL Globulin gm/dL Albumin/Globulin Ratio (1.1-1.8) Proteinase 3 (PR3) <1.0 (<1.0) AI Myeloperoxidase Ab <1.0 (<1.0) AI Heparin-induced Plt Ab (Negative) Hep-Induced Plt Ab Cmmt Blood Type Antibody Screen BBK History Checked 07/05/18 07/05/18 Range/Units 10:30 08:00 WBC (4.5-11.0) 10^3/uL RBC (3.5-6.1) 10^6/uL Hgb (14.0-18.0) g/dL Hct (42.0-52.0) % MCV (80.0-105.0) fl MCH (25.0-35.0) pg MCHC (31.0-37.0) g/dl RDW (11.5-14.5) % Plt Count (120.0-450.0) 10^3/uL Manual Plt Count (120-450) K/mm3 Gran % (50.0-68.0) % Lymph % (Auto) (22.0-35.0) % [place] % (Auto) (1.0-6.0) % Eos % (Auto) (1.5-5.0) % Baso % (Auto) (0.0-3.0) % Gran # (1.4-6.5) Lymph # (Auto) (1.2-3.4) [place] # (Auto) (0.1-0.6) Eos # (Auto) (0.0-0.7) Baso # (Auto) (0.0-2.0) K/mm3 Differential Comment Platelet Evaluation (NORMAL) Fibrin Degrad Products (< 10 ug/mL) pCO2 (35-45) mm/Hg pO2 (80-100) mm/Hg HCO3 (21-28) mmol/L ABG pH (7.35-7.45) ABG Total CO2 (22-28) mmol.L ABG O2 Saturation (95-98) % ABG O2 Content (15-23) ML/dl ABG Base Excess (-2.0-3.0) mmol/L ABG Hemoglobin (11.7-17.4) g/dL ABG Carboxyhemoglobin (0.5-1.5) % POC ABG HHb (Measured) (0-5) % ABG Methemoglobin (0.0-3.0) % ABG O2 Capacity (16-24) mL/dl Hgb O2 Saturation (95.0-98.0) % FiO2 % Sodium (132-148) mmol/L Potassium (3.6-5.0) mmol/L Chloride (98-107) mmol/L Carbon Dioxide (21-33) mmol/L Anion Gap (10-20) BUN (7-21) mg/dL Creatinine (0.8-1.5) mg/dl Est GFR ( Amer) Est GFR (Non-Af Amer) POC Glucose (mg/dL) (65-110) mg/dL Random Glucose (70-110) mg/dL Calcium (8.4-10.5) mg/dL Total Bilirubin (0.2-1.3) mg/dL AST (17-59) U/L ALT (7-56) U/L Alkaline Phosphatase (38-126) U/L C-React Prot High Sens (1.00-3.00) mg/L Total Protein (5.8-8.3) g/dL Albumin (3.0-4.8) g/dL Globulin gm/dL Albumin/Globulin Ratio (1.1-1.8) Proteinase 3 (PR3) (<1.0) AI Myeloperoxidase Ab (<1.0) AI Heparin-induced Plt Ab Negative Negative (Negative) Hep-Induced Plt Ab Cmmt 0.206 Blood Type Antibody Screen BBK History Checked Laboratory Results - last 24 hr 07/05/18 07/05/18 07/07/18 08:00 10:30 11:49 WBC RBC Hgb Hct MCV MCH MCHC RDW Plt Count Manual Plt Count Gran % Lymph % (Auto) [place] % (Auto) Eos % (Auto) Baso % (Auto) Gran # Lymph # (Auto) [place] # (Auto) Eos # (Auto) Baso # (Auto) Differential Comment See pathology report Platelet Evaluation Fibrin Degrad Products pCO2 pO2 HCO3 ABG pH ABG Total CO2 ABG O2 Saturation ABG O2 Content ABG Base Excess ABG Hemoglobin ABG Carboxyhemoglobin POC ABG HHb (Measured) ABG Methemoglobin ABG O2 Capacity Hgb O2 Saturation FiO2 Sodium Potassium Chloride Carbon Dioxide Anion Gap BUN Creatinine Est GFR ( Amer) Est GFR (Non-Af Amer) POC Glucose (mg/dL) Random Glucose Calcium Total Bilirubin AST ALT Alkaline Phosphatase C-React Prot High Sens Total Protein Albumin Globulin Albumin/Globulin Ratio Proteinase 3 (PR3) Myeloperoxidase Ab Heparin-induced Plt Ab Negative Negative Hep-Induced Plt Ab Cmmt 0.206 Blood Type Antibody Screen BBK History Checked 07/07/18 07/07/18 07/07/18 12:00 16:10 16:10 WBC RBC Hgb Hct MCV MCH MCHC RDW Plt Count Manual Plt Count Gran % Lymph % (Auto) [place] % (Auto) Eos % (Auto) Baso % (Auto) Gran # Lymph # (Auto) [place] # (Auto) Eos # (Auto) Baso # (Auto) Differential Comment Platelet Evaluation Fibrin Degrad Products >10 <40 ug/ml pCO2 pO2 HCO3 ABG pH ABG Total CO2 ABG O2 Saturation ABG O2 Content ABG Base Excess ABG Hemoglobin ABG Carboxyhemoglobin POC ABG HHb (Measured) ABG Methemoglobin ABG O2 Capacity Hgb O2 Saturation FiO2 Sodium Potassium Chloride Carbon Dioxide Anion Gap BUN Creatinine Est GFR ( Amer) Est GFR (Non-Af Amer) POC Glucose (mg/dL) Random Glucose Calcium Total Bilirubin AST ALT Alkaline Phosphatase C-React Prot High Sens > 15.00 H Total Protein Albumin Globulin Albumin/Globulin Ratio Proteinase 3 (PR3) <1.0 Myeloperoxidase Ab <1.0 Heparin-induced Plt Ab Hep-Induced Plt Ab Cmmt Blood Type Antibody Screen BBK History Checked 07/07/18 07/07/18 07/07/18 16:10 16:21 21:23 WBC RBC Hgb Hct MCV MCH MCHC RDW Plt Count Manual Plt Count Gran % Lymph % (Auto) [place] % (Auto) Eos % (Auto) Baso % (Auto) Gran # Lymph # (Auto) [place] # (Auto) Eos # (Auto) Baso # (Auto) Differential Comment Platelet Evaluation Fibrin Degrad Products pCO2 pO2 HCO3 ABG pH ABG Total CO2 ABG O2 Saturation ABG O2 Content ABG Base Excess ABG Hemoglobin ABG Carboxyhemoglobin POC ABG HHb (Measured) ABG Methemoglobin ABG O2 Capacity Hgb O2 Saturation FiO2 Sodium 144 Potassium 6.3 H* Chloride 112 H Carbon Dioxide 21 Anion Gap 17 BUN 132 H* Creatinine 3.8 H Est GFR ( Amer) 20 Est GFR (Non-Af Amer) 16 POC Glucose (mg/dL) 328 H 199 H Random Glucose 351 H* Calcium 7.8 L Total Bilirubin AST ALT Alkaline Phosphatase C-React Prot High Sens Total Protein Albumin Globulin Albumin/Globulin Ratio Proteinase 3 (PR3) Myeloperoxidase Ab Heparin-induced Plt Ab Hep-Induced Plt Ab Cmmt Blood Type Antibody Screen BBK History Checked 07/08/18 07/08/18 07/08/18 05:30 05:30 08:50 WBC 5.2 D RBC 3.19 L Hgb 8.3 L Hct 27.0 L MCV 84.6 D MCH 26.0 MCHC 30.7 L RDW 17.0 H Plt Count 11 L* Manual Plt Count 17 L* Gran % 87.6 H Lymph % (Auto) 6.7 L [place] % (Auto) 5.5 Eos % (Auto) 0.0 L Baso % (Auto) 0.2 Gran # 4.58 Lymph # (Auto) 0.4 L [place] # (Auto) 0.3 Eos # (Auto) 0.0 Baso # (Auto) 0.01 Differential Comment Platelet Evaluation Low Fibrin Degrad Products pCO2 39 pO2 187.0 H HCO3 23.6 ABG pH 7.39 ABG Total CO2 24.8 ABG O2 Saturation 99.1 H ABG O2 Content 11.9 L ABG Base Excess -1.2 ABG Hemoglobin 8.4 L ABG Carboxyhemoglobin 1.1 POC ABG HHb (Measured) 0.9 ABG Methemoglobin 0.6 ABG O2 Capacity 12.0 L Hgb O2 Saturation 97.3 FiO2 60.0 Sodium 141 Potassium 4.2 Chloride 105 Carbon Dioxide 26 Anion Gap 14 BUN 98 H Creatinine 3.9 H Est GFR ( Amer) 19 Est GFR (Non-Af Amer) 16 POC Glucose (mg/dL) Random Glucose 269 H Calcium 7.4 L Total Bilirubin 0.9 AST 270 H D ALT 476 H Alkaline Phosphatase 69 C-React Prot High Sens Total Protein 5.8 Albumin 3.0 Globulin 2.9 Albumin/Globulin Ratio 1.0 L Proteinase 3 (PR3) Myeloperoxidase Ab Heparin-induced Plt Ab Hep-Induced Plt Ab Cmmt Blood Type Antibody Screen BBK History Checked 07/08/18 07/08/18 11:46 14:30 WBC RBC Hgb Hct MCV MCH MCHC RDW Plt Count Manual Plt Count Gran % Lymph % (Auto) [place] % (Auto) Eos % (Auto) Baso % (Auto) Gran # Lymph # (Auto) [place] # (Auto) Eos # (Auto) Baso # (Auto) Differential Comment Platelet Evaluation Fibrin Degrad Products pCO2 pO2 HCO3 ABG pH ABG Total CO2 ABG O2 Saturation ABG O2 Content ABG Base Excess ABG Hemoglobin ABG Carboxyhemoglobin POC ABG HHb (Measured) ABG Methemoglobin ABG O2 Capacity Hgb O2 Saturation FiO2 Sodium Potassium Chloride Carbon Dioxide Anion Gap BUN Creatinine Est GFR ( Amer) Est GFR (Non-Af Amer) POC Glucose (mg/dL) 277 H Random Glucose Calcium Total Bilirubin AST ALT Alkaline Phosphatase C-React Prot High Sens Total Protein Albumin Globulin Albumin/Globulin Ratio Proteinase 3 (PR3) Myeloperoxidase Ab Heparin-induced Plt Ab Hep-Induced Plt Ab Cmmt Blood Type O POSITIVE Antibody Screen Negative BBK History Checked Patient has bt Radiology Impressions: Radiology Impressions Chest X-Ray 07/08/18 09:56 IMPRESSION: Worsening ARDS/pulmonary edema. Stable support apparatus. EKG/Cardiology Studies: Cardiology / EKG Studies 07/08/18 06:00 EKG [ELECTROCARDIOGRAM] DAILY Comment: Reason For Exam: Hyperkalemia 07/09/18 06:00 EKG [ELECTROCARDIOGRAM] DAILY Comment: Reason For Exam: Hyperkalemia 07/10/18 06:00 EKG [ELECTROCARDIOGRAM] DAILY Comment: Reason For Exam: Hyperkalemia 07/11/18 06:00 EKG [ELECTROCARDIOGRAM] DAILY Comment: Reason For Exam: Hyperkalemia 07/12/18 06:00 EKG [ELECTROCARDIOGRAM] DAILY Comment: Reason For Exam: Hyperkalemia Critical Care Progress Note - Nutrition Nutrition: Nutrition Category Date Time Status NPO Diet [DIET] Diets 07/06/18 Breakfast Ordered Assessment/Plan - Assessment and Plan (Free Text) Assessment: Patient seen and examined on rounds, with resident, agree with note with following additions/exceptions: Patient is 62yo male with PMhx of COPD, active smoker 2pks per day, HTN, DM, PVD, admitted for hypoxic respiratory failure, 2/2 Influenza PNA, and superimposed bacterial PNA. Pt is currently intubated, not on Vasopressor support, on PRVC FiO2 40%, PEEP 5; Nimbex shut off this morning after 48hours. Pt's CXR with IMPROVED Aeration of upper lung miguel, ARDS. ABG with improved P/F ratio, currently >300 Weaning trial today began. Pt's with chornic throbocytopenia, no clinical evidence of overt bleeding Receiving IVIG HD as per renal, K normal today PNA ARDS FLU MODS Renal failure, s/p HD Thrombocytopenia rule out ITP/TTP COPD HTN PVD DM Recommend: - cont with vent support, low tidal vol ventilation, high PEEP, 10, P/F ratio significantly improved, daily ABG, CXR, weaning Trial - DC Nimbex - Conservative fluid management - Abx as per ID, Vanco renally dosed, Merrem, Tamiflu - BP control - HD as per renal - monitor LFTs - FS control - I/Os - IVIG as per heme onc - cont with Dobutamine - will likely need cardiac cath once more stable - check HgBA1C, TSH, Lipid panel - follow up cardio - GI ppx - DVT ppx - Monitor in MICU Critical care time 45 minutes
[2018-07-08] MEDS: levoFLOXacin 500 mg in D5W 500 MG/100 ML BAG IVPB SCH (08:45)
[2018-07-08] MEDS: Insulin Reg-MEDIUM-Coverage SC SCH ×4 (08:45→22:00)
[2018-07-08 08:51] LABS: PLATELET COUNT MANUAL 17 K/mm3 (120-450)
[2018-07-08 08:55] LABS: ARTERIAL BLOOD GAS HCO3 23.6 mmol/L (21-28); ARTERIAL BLOOD GAS HEMOGLOBIN 8.4 g/dL (11.7-17.4); ARTERIAL BLOOD GAS O2 CONTENT 11.9 ML/dl (15-23); ARTERIAL BLOOD GAS O2 SAT 99.1 % (95-98); ARTERIAL BLOOD GAS PCO2 39 mm/Hg (35-45); ARTERIAL BLOOD GAS PH 7.39 (7.35-7.45); ARTERIAL BLOOD GAS TCO2 24.8 mmol.L (22-28)
--- NOTE | 2018-07-08 09:44 | PN ---
DATE: 07/08/2018([id number]) PULMONARY NOTE SUBJECTIVE: The patient is currently on the ventilator. He is sedated and paralyzed. PHYSICAL EXAMINATION: VITAL SIGNS: Temperature is 96.8, pulse 89, respirations 20/20, blood pressure 110/47. Oxygen saturation on the ventilator - 99%. HEENT: Normocephalic, atraumatic. NECK: No JVD. CARDIOVASCULAR: Systolic ejection murmur at the lower left sternal border. No S3 gallop. LUNGS: Decreased breath sounds at the bases. Minimal rhonchi. No wheezing. GI: Abdomen is soft, nondistended. Bowel sounds are positive. EXTREMITIES: Mild edema. No cyanosis or clubbing. SKIN: No acute rash. NEUROLOGIC: Exam limited at the present time. PERTINENT LABORATORY DATA: Last chest x-ray done was yesterday. The chest x-ray was improved-- with decreased bilateral pulmonary infiltrates. IMPRESSION: 1. Respiratory failure. 2. Bilateral pneumonia. 3. Rule out myocardial infarction. 4. Ischemic dilated cardiomyopathy. 5. Renal failure. 6. Anemia, severe thrombocytopenia. 7. COPD PLAN: The patient remains on the ventilator and in the ICU. He is currently sedated and paralyzed. I did discuss the case with the night nurse at length. The night nurse stated that the patient had an uneventful night, but remains critically ill. I did review the last chest x-ray done. The chest x-ray shows improved aeration-- with decreased bilateral pulmonary infiltrates. I will also order a repeat arterial blood gas for this morning. I will be called with the results. The patient remains on antibiotic therapy - as per Infectious Disease. Input by Dr. Lucero is noted. Inputs by Cardiology and Renal are also noted. The patient remains critically ill, with very guarded prognosis. I will discuss the above with the entire ICU team in the next few moments. I will also discuss the above with the attending physician. Balta Burr MD [facility]
[2018-07-08] MEDS: DOBUTamine 500mg/250ml D5W 500 MG/250 ML BAG IV PRN (10:00)
--- NOTE | 2018-07-08 10:06 | CARD ---
APPROVED REPORT Date of service: 07/08/2018 EKG Measurement Heart [id number] <Conclusion> NSR with Apcs Incomplete left bundle branch block Nonspecific T wave abnormality, probably digitalis effect Abnormal ECG
[2018-07-08] MEDS: MEROPENEM 500 MG in NS 500 MG/50 ML BAG IVPB SCH (10:10)
[2018-07-08] MEDS: PREMIXED IV SCH (10:15)
[2018-07-08] MEDS: IMMUNE GLOBULIN IV SCH (10:15)
[2018-07-08] MEDS: MethylPREDNISolone 40 mg Vial IVP SCH (10:59)
[2018-07-08] MEDS: Oseltamivir 6 MG/ML PO SCH ×2 (11:04→22:00)
[2018-07-08] MEDS: Propofol 10 mg/ml 1,000 MG/100 ML VIAL IV PRN ×2 (11:45→16:30)
--- NOTE | 2018-07-08 11:50 | RAD ---
Date of service: 07/08/2018 HISTORY: Intubated, ARDS COMPARISON: July 07, 2018. FINDINGS: LUNGS: Worsening pulmonary edema/ARDS. PLEURA: No significant pleural effusion identified, no pneumothorax apparent. CARDIOVASCULAR: Atherosclerotic calcifications identified primarily aortic arch. Stable cardiomegaly. OSSEOUS STRUCTURES: No significant abnormalities. VISUALIZED UPPER ABDOMEN: Normal. OTHER FINDINGS: Stable position of endotracheal tube and nasogastric tube. IMPRESSION: Worsening ARDS/pulmonary edema. Stable support apparatus.
--- NOTE | 2018-07-08 12:02 | PN ---
DATE: 07/08/2018 SUBJECTIVE: The patient remains on a ventilator. His mental status has not improved. PHYSICAL EXAMINATION: VITAL SIGNS: Stable. NECK: Negative JVD. LUNGS: Decreased breath sounds. HEART: Reveal S1, S2. EXTREMITIES: Without change. LABORATORY DATA: Noted. IMPRESSION: 1. Respiratory failure. 2. Dilated cardiomyopathy. 3. Non-ST elevation myocardial infarction 4. Coronary artery disease. 5. Congestive heart failure. PLAN: Given these findings, we will decrease his dobutamine from 5 to 2.5 mcg/kg per minute. Benjamin Saxena MD
--- NOTE | 2018-07-08 12:58 | PN ---
SUBJECTIVE: The patient was seen and examined at bedside in the ICU. No acute events overnight. He has been afebrile for the past 24 hours and remains largely clinically unchanged. The patient was started on hemodialysis yesterday with Dr. Mcnamara due to deterioration in his renal function and significant hyperkalemia. OBJECTIVE: VITAL SIGNS: Temperature 97, pulse 86, blood pressure 117/47, respiratory rate 20, oxygen saturation 98% on 60% FiO2. GENERAL: Intubated and sedated. HEENT: PERRL. ETT in place. OGT in place. NECK: No JVD. LUNGS: Coarse breath sounds anteriorly with scattered rhonchi. CARDIOVASCULAR: Regular rate and rhythm. Normal S1, S2. ABDOMEN: Normoactive bowel sounds. Soft, nondistended. EXTREMITIES: 1+ edema in all extremities. Central venous catheter in place to left groin with site appearing clean, dry and intact. NEUROLOGIC: The patient remains sedated. LABORATORY DATA: WBC 5.2 with 88% neutrophils, hemoglobin 8.3, hematocrit 27, platelets 17. Sodium 141, potassium 4.2, chloride 105, bicarb 26, BUN 98, creatinine 3.9, glucose 269. AST 270, ALT 476. Blood cultures with no growth to date. Urine culture with no growth to date. Sputum with yeast species. Stool occult blood negative. ASSESSMENT: The patient is a 62-year-old man with multiple medical comorbidities who was admitted to the ICU s/p intubation for acute hypoxic respiratory failure secondary to severe sepsis secondary to community-acquired pneumonia and multiorgan system failure. PLAN: 1. Acute hypoxic respiratory failure s/p intubation. Input from Dr. Sethi and the ICU team appreciated. Continue with care as per the ICU team. He remains on ARDS protocol. 2. Severe sepsis secondary to community-acquired pneumonia with influenza. Input from Dr. Fernandes appreciated. Continue with current antimicrobials. 3. OG, consider secondary to ATN +/- prerenal azotemia in the setting of severe sepsis. Input from Dr. Mcnamara appreciated and the patient has been started on renal replacement therapy. Continue with care as per Dr. Mcnamara. 4. NSTEMI. Input from Dr. Saxena appreciated. The patient is planned for cardiac catheterization but this has been put on hold given his significant thrombocytopenia. 5. Acute systolic heart failure. Continue with Dobutamine for inotropic support. Continue to monitor strict I&O's. 6. Transaminitis, likely secondary to shock liver in the setting of severe sepsis, improving. Liver function tests trending favorably. Abdominal ultrasound and hepatitis panel are negative. We will continue to monitor. 7. Thrombocytopenia secondary to ITP with workup ongoing to rule out HUS. HIT antibody pending. Continue with care as per Dr. Estevez. 8. Normocytic anemia. Continue to monitor CBC daily transfuse as needed. 9. Hyperkalemia, resolved. 10. Type 2 diabetes mellitus. Continue medium-dose insulin sliding scale for coverage. 11. Hypertension. Antihypertensives remain on hold as the patient remains on inotropic support. 12. Pseudogout. 13. Anxiety disorder. 14. GERD. Continue Protonix 40 mg p.o. daily 15. Prophylaxis. Continue Protonix for GI prophylaxis and SCDs for DVT prophylaxis. CODE STATUS: Full code. Yassine Martinez MD [facility]
--- NOTE | 2018-07-08 13:33 | PN ---
DATE: 07/08/2018 SUBJECTIVE: The patient is in bed in ICU 128, bed 5. He is comfortable. He remains on a vent, intubated on a ventilator. No fevers last night. PHYSICAL EXAMINATION: VITAL SIGNS: Temperature is 97, blood pressure is 117/40, respiratory rate of on a vent, heart rate of 92. HEENT: Examination is unremarkable. NECK: Supple. LUNGS: Have decreased breath sounds. HEART: Normal S1, S2. ABDOMEN: Soft, nontender. LABORATORY DATA: Examination reveals a white count of 5.2, hemoglobin of 8, and sed rate is 45. Chemistries are noted. BUN of 98, creatinine of 3.9. LFTs are noted and urinalysis is noted. Influenza is positive. The patient's procalcitonin is 4.85 and creatinine of 3.9. LFTs are elevated. CK is over a thousand. ASSESSMENT AND PLAN: A 62-year-old male seen in 128, bed 5, this morning, who is with respiratory failure, intubated on a ventilator with influenza A with acute kidney injury with severe sepsis, hypoxic respiratory failure, [id number] renal failure as well as thrombocytopenia, severe right-sided community-acquired pneumonia on top of a viral influenza in a patient with chronic obstructive lung disease, significant active smoker, hypertension, diabetes, on day #6 of Levaquin and meropenem. The patient's chest x-ray from yesterday is reviewed, pulmonary congestion with a right-sided infiltrate, would complete seven days of antibiotics. Satya Fernandes MD
[2018-07-08] MEDS: Fentanyl 1000mcg/100ml NS 1,000 MCG/100 ML BAG IV PRN (18:03)
[2018-07-08] MEDS: Acetaminophen 650mg/20.3ml solution UD PO PRN (18:39)
[2018-07-08] MEDS ORDERED: DiphenhydrAMINE 50 mg/ml Inj IVP STA (19:03)
[2018-07-08 20:21] LABS: COMPLEMENT C4 14.7 mg/dL (14.0-44.0)
[2018-07-08] MEDS: Albuterol-Ipratrop 3 mg / 0.5 (3 ml) UD IH PRN (20:22)
--- NOTE | 2018-07-09 01:35 | PN ---
DATE: 07/08/2018 LOCATION: The patient is in ICU, bed 5, room 128. SUBJECTIVE: The patient is examined at the bedside in the ICU. Family at the bedside. is there. The patient had no acute events. He has been afebrile, still remains intubated, and clinically unchanged apparently from the events of yesterday. The patient had one episode of hemodialysis yesterday due to deterioration in function and significant hyperkalemia which has improved on today's labs. Even his pulmonary status appears to be improving. I had some discussion with the staff and with the family. They are trying to see the patient could be extubated if he continues to improve in the fashion that he is doing so today. Objectively, the patient is obtunded and he is on IV fentanyl. He is on dobutamine for his heart. He is on multiple antibiotics as well. PHYSICAL EXAMINATION: GENERAL: The patient is examined in bed. VITAL SIGNS: T-max is 98.4, pulse is 86, blood pressure 117/47, respirations are 20, O2 sat is 98%, 60% FiO2. The patient is sedated and intubated as mentioned. HEENT: Reveals pupils are equal, reactive to light and accommodation. No conjunctival hemorrhages are noted. ET tube in place. There is no blood in the ET tube. OGT is in place. NECK: Supple. There is no adenopathy. No jugular venous distention noted. LUNGS: Reveal coarse breath sounds anteriorly with scattered rhonchi bilaterally. CARDIOVASCULAR SYSTEM: Reveals S1, S2 to be normal. Tachycardia is noted. ABDOMEN: Soft, mildly protuberant, nontender. No rebound, rigidity, or guarding is noted. EXTREMITIES: Reveal 1+ edema in both lower extremities with the catheter in the place in the left groin. Site appears to be clean. NEUROLOGIC EXAMINATION: Reveals the patient to be sedated without any gross focal findings. LABORATORY DATA: Reveals hemoglobin of 8.3, hematocrit 27, manual platelet count of 17,000. Sodium is 141, K is 4.2, chloride 105, bicarb is 26, BUN is 98, creatinine 3.9, and glucose is 269. AST is 270, ALT is 476. Blood cultures, there is no growth. Urine cultures, no growth. Sputum with yeast species. Stool guaiac is negative. ASSESSMENT, NOTES, AND PLAN: The patient has a diagnosed idiopathic thrombocytic purpura, on Promacta, chronically now in the hospital with ongoing pneumonia, acute respiratory distress syndrome, sepsis, demand ischemia with elevated troponins. They are awaiting stabilization before having cardiac catheterization to determine issue of cardiac injury. Acute kidney injury, status post dialysis, scheduled for another dialysis in a.m. Elevated transaminases, probably related to shock liver from the episode related to acute respiratory distress syndrome, systolic heart failure on dobutamine, thrombocytopenia most likely related to aggravation by multiorgan failure, superimposed on his underlying thrombocytopenia. I doubt this is heparin-induced thrombocytopenia, though request has already been made and heparin-induced thrombocytopenia and thrombosis antibody is pending. Review of the peripheral smear was done, does not reveal any schistocyte, absolute number of platelets in the peripheral smear are decreased with occasional large platelet. The red surface and white surface appear to be within normal range. The patient has history of hypertension on antihypertensives, history of pseudogout, gastroesophageal reflux disease. Continue gastrointestinal and deep venous thrombosis prophylaxis. For now, the patient is full code. He will continue to be aggressive with . The patient is also getting intravenous gamma globulin. He had one dose yesterday and getting one dose today, one dose tomorrow. We will plan on extending it in order to help with the thrombocytopenia. The patient is already on steroids from his medication point of view. Rest of the medicines were reviewed. He is currently on dobutamine. He is on DuoNeb. He is on fentanyl and Diprivan for sedation. He is on intravenous heparin. He is on insulin coverage. He is on levofloxacin, Levaquin 500 mg every 48 hours. He is on Protonix 40 mg intravenous daily, methylprednisolone 60 mg intravenous daily. He is on Tamiflu 30 mg p.o. every 12 hours and Tylenol p.r.n. We will continue to monitor the patient very carefully with you and make appropriate recommendations. Prognosis for the patient is guarded. Time spent on the patient is greater than 45 minutes in correlating all the data and discussing with the nursing staff as long. Sandra Estevez MD [facility] # [id number]
[2018-07-09] MEDS: Albuterol-Ipratrop 3 mg / 0.5 (3 ml) UD IH SCH ×4 (02:14→20:36)
[2018-07-09] MEDS: Propofol 10 mg/ml 1,000 MG/100 ML VIAL IV PRN ×5 (03:58→23:03)
[2018-07-09] MEDS: Fentanyl 1000mcg/100ml NS 1,000 MCG/100 ML BAG IV PRN ×3 (04:43→20:58)
[2018-07-09 06:04] LABS: ARTERIAL BLOOD GAS HCO3 21.4 mmol/L (21-28); ARTERIAL BLOOD GAS HEMOGLOBIN 10.4 g/dL (11.7-17.4); ARTERIAL BLOOD GAS O2 CAPACITY 14.6 mL/dl (16-24); ARTERIAL BLOOD GAS O2 CONTENT 14.4 ML/dl (15-23); ARTERIAL BLOOD GAS O2 SAT 98.8 % (95-98); ARTERIAL BLOOD GAS PCO2 37 mm/Hg (35-45); ARTERIAL BLOOD GAS PH 7.37 (7.35-7.45); ARTERIAL BLOOD GAS TCO2 22.5 mmol.L (22-28)
--- NOTE | 2018-07-09 06:48 | CP.CCUPN ---
<Ismael Turner - Last Filed: 07/09/18 11:28> CCU Subjective - Physician Review Subjective (Free Text): Ismael Turner, PGY-1 Progress Note for ICU Patient seen and evaluated at bedside. Fevers overnight with Tmax 102.2. Presently titrating sedation on Propofol and Fentanyl drips. Dobutamine drip @ 2.5 currently. Heparin drip remains on hold. Further ROS was unobtainable at this time due to clinical condition. CCU Objective - Vital Signs / Intake & Output Vital Signs (Last 4 hours): Vital Signs Temp Pulse BP Pulse Ox 07/09/18 03:00 117/59 L 07/09/18 02:59 101.3 F H 101 H 97 Intake and Output (Last 8hrs): Intake & Output 07/08/18 07/08/18 07/09/18 14:59 22:59 06:59 Intake Total 820 870 511 Output Total 300 Balance 820 570 511 Intake: IV 520 570 200 Fentanyl 48 IVPB 400 dobutamine 111 propofol 196 Tube Feeding 300 300 Blood Product 0 311 Apheresis Plts Acda Lr 0 311 1st Con Unit [id number] Output: Urine 300 Urethral (Ash) 300 Other: # Bowel Movements 1 - Physical Exam Head: Positive for: Atraumatic, Normocephalic Pupils: Positive for: PERRL Extroacular Muscles: Positive for: EOMI Conjunctiva: Positive for: Normal Mouth: Positive for: Other (OGT in place) Pharnyx: Positive for: Other (Intubated, currently at 40/10/20/450) Respiratory/Chest: Positive for: Wheezes (mild expiratory wheeze bilaterally), Decreased Breath Sounds, Tachypneic, Other (Intubated). Negative for: Respiratory Distress Cardiovascular: Positive for: Normal S1, S2, Tachycardic. Negative for: Murmurs Abdomen: Positive for: Distention. Negative for: Tenderness, Peritoneal Signs Back: Positive for: Normal Inspection Upper Extremity: Positive for: Other (Ecchymoses noted in antecubital areas). Negative for: Normal Inspection, Cyanosis, Edema Lower Extremity: Positive for: Edema (2+ pitting edema noted to right lower extremity; chronic diabetic ulcer noted to anterior anderson of left lower extremity ) Neurological: Positive for: Other (unable to be assessed 2/2 sedation) Skin: Positive for: Warm, Dry, Normal Color. Negative for: Rashes Psychiatric: Negative for: Alert, Oriented x 3, Normal Insight, Normal Concentration - Medications Active Medications: Active Medications Generic Name Dose Route Start Last Admin Trade Name Freq PRN Reason Stop Dose Admin Acetaminophen 650 mg 07/08/18 18:18 07/08/18 18:39 Tylenol 650mg/20.3ml Solution Ud PO 650 mg Q6H PRN Administration Fever 101F Albuterol/Ipratropium 3 ml 07/03/18 14:00 07/09/18 02:14 Duoneb 3 Mg/0.5 Mg (3 Ml) Ud IH 3 ml [id number] SEEMA Administration Albuterol/Ipratropium 3 ml 07/03/18 11:04 07/08/18 20:22 Duoneb 3 Mg/0.5 Mg (3 Ml) Ud IH 3 ml Q2H PRN Administration Shortness of Breath Levofloxacin/Dextrose 500 mg in 100 mls @ 100 mls/hr 07/04/18 07:00 07/08/18 08:45 Levaquin 500mg IVPB 100 mls/hr Q48H SEEMA Administration Protocol Propofol 1,000 mg in 100 mls @ 2.79 mls/hr 07/03/18 16:11 07/09/18 04:07 Diprivan IV 50 mcg/kg/min .Q24H PRN 27.896 mls/hr TITRATE PER MD ORDER Administration Protocol 5 MCG/KG/MIN Fentanyl Citrate 1,000 mcg in 100 mls @ 10 mls/hr 07/03/18 16:44 07/09/18 04:43 Fentanyl Citrate/Sodium Chloride 1 Mg/100 Ml IV 40 mcg/hr .Q10H PRN 4 mls/hr TITRATE PER MD ORDER Administration Protocol 100 MCG/HR Heparin Sodium/Sodium Chloride 25,000 units in 250 mls @ 7.802 mls/hr 07/05/18 01:00 07/05/18 08:58 Heparin 02763 Units/250ml 1/2 Normal Saline IV Not Given .Q24H SEEMA Protocol 8 UNITS/KG/HR Cisatracurium Besylate 200 mg/ 270 mls @ 3.95 mls/hr 07/06/18 15:44 07/08/18 09:20 Sodium Chloride IV 0 mcg/kg/min .Q24H PRN 0 mls/hr TITRATE PER MD ORDER Titration Protocol 0.5 MCG/KG/MIN Immune Globulin 25 gm/ 250 mls @ 55 mls/hr 07/07/18 14:00 07/08/18 10:15 Miscellaneous IV 55 mls/hr DAILY SEEMA Administration Dobutamine HCl/Dextrose 500 mg in 250 mls @ 7.314 mls/hr 07/08/18 10:00 07/08/18 10:00 Dobutamine/Dextrose 5% 500mg/250ml IV 7.314 mls/hr .Q24H PRN Administration Cardiac contractility 2.5 MCG/KG/MIN Insulin Human Regular 0 units 07/03/18 22:00 07/08/18 22:00 Humulin R Med SC Not Given ACHS SEEMA Protocol Methylprednisolone 60 mg 07/07/18 10:00 07/08/18 10:59 Solu-Medrol IVP 60 mg DAILY SEEMA Administration Oseltamivir Phosphate 30 mg 07/04/18 10:00 07/08/18 22:00 Tamiflu Susp PO 5 ml Q12 SEEMA Administration Pantoprazole Sodium 40 mg 07/03/18 14:15 07/08/18 10:14 Protonix Inj IVP 40 mg DAILY SEEMA Administration - Patient Studies Lab Studies: Microbiology Studies 07/03/18 09:45 Blood Culture - Final Blood NO GROWTH AFTER 5 DAYS Gram Stain - Final TEST NOT PERFORMED 07/03/18 09:25 Blood Culture - Final Blood NO GROWTH AFTER 5 DAYS Gram Stain - Final TEST NOT PERFORMED Lab Studies 07/09/18 07/08/18 07/08/18 Range/Units 05:50 21:23 16:23 Manual Plt Count (120-450) K/mm3 Differential Comment Platelet Evaluation (NORMAL) pCO2 37 (35-45) mm/Hg pO2 133.0 H (80-100) mm/Hg HCO3 21.4 (21-28) mmol/L ABG pH 7.37 (7.35-7.45) ABG Total CO2 22.5 (22-28) mmol.L ABG O2 Saturation 98.8 H (95-98) % ABG O2 Content 14.4 L (15-23) ML/dl ABG Base Excess -3.5 L (-2.0-3.0) mmol/L ABG Hemoglobin 10.4 L (11.7-17.4) g/dL ABG Carboxyhemoglobin 1.2 (0.5-1.5) % POC ABG HHb (Measured) 1.2 (0-5) % ABG Methemoglobin 0.7 (0.0-3.0) % ABG O2 Capacity 14.6 L (16-24) mL/dl Hgb O2 Saturation 96.9 (95.0-98.0) % FiO2 40.0 % POC Glucose (mg/dL) 353 H 307 H (65-110) mg/dL C-React Prot High Sens (1.00-3.00) mg/L Proteinase 3 (PR3) (<1.0) AI Myeloperoxidase Ab (<1.0) AI Heparin-induced Plt Ab (Negative) Hep-Induced Plt Ab Cmmt Complement C3 (88.0-165.0) mg/dL Complement C4 (14.0-44.0) mg/dL Blood Type Antibody Screen BBK History Checked 07/08/18 07/08/18 07/08/18 Range/Units 15:00 14:30 11:46 Manual Plt Count (120-450) K/mm3 Differential Comment Platelet Evaluation (NORMAL) pCO2 (35-45) mm/Hg pO2 (80-100) mm/Hg HCO3 (21-28) mmol/L ABG pH (7.35-7.45) ABG Total CO2 (22-28) mmol.L ABG O2 Saturation (95-98) % ABG O2 Content (15-23) ML/dl ABG Base Excess (-2.0-3.0) mmol/L ABG Hemoglobin (11.7-17.4) g/dL ABG Carboxyhemoglobin (0.5-1.5) % POC ABG HHb (Measured) (0-5) % ABG Methemoglobin (0.0-3.0) % ABG O2 Capacity (16-24) mL/dl Hgb O2 Saturation (95.0-98.0) % FiO2 % POC Glucose (mg/dL) 277 H (65-110) mg/dL C-React Prot High Sens (1.00-3.00) mg/L Proteinase 3 (PR3) (<1.0) AI Myeloperoxidase Ab (<1.0) AI Heparin-induced Plt Ab (Negative) Hep-Induced Plt Ab Cmmt Complement C3 59.0 L (88.0-165.0) mg/dL Complement C4 14.7 (14.0-44.0) mg/dL Blood Type O POSITIVE Antibody Screen Negative BBK History Checked Patient has bt 07/08/18 07/08/18 07/07/18 Range/Units 08:50 05:30 16:10 Manual Plt Count 17 L* (120-450) K/mm3 Differential Comment Platelet Evaluation Low (NORMAL) pCO2 39 (35-45) mm/Hg pO2 187.0 H (80-100) mm/Hg HCO3 23.6 (21-28) mmol/L ABG pH 7.39 (7.35-7.45) ABG Total CO2 24.8 (22-28) mmol.L ABG O2 Saturation 99.1 H (95-98) % ABG O2 Content 11.9 L (15-23) ML/dl ABG Base Excess -1.2 (-2.0-3.0) mmol/L ABG Hemoglobin 8.4 L (11.7-17.4) g/dL ABG Carboxyhemoglobin 1.1 (0.5-1.5) % POC ABG HHb (Measured) 0.9 (0-5) % ABG Methemoglobin 0.6 (0.0-3.0) % ABG O2 Capacity 12.0 L (16-24) mL/dl Hgb O2 Saturation 97.3 (95.0-98.0) % FiO2 60.0 % POC Glucose (mg/dL) (65-110) mg/dL C-React Prot High Sens > 15.00 H (1.00-3.00) mg/L Proteinase 3 (PR3) (<1.0) AI Myeloperoxidase Ab (<1.0) AI Heparin-induced Plt Ab (Negative) Hep-Induced Plt Ab Cmmt Complement C3 (88.0-165.0) mg/dL Complement C4 (14.0-44.0) mg/dL Blood Type Antibody Screen BBK History Checked 07/07/18 07/07/18 07/05/18 Range/Units 12:00 11:49 10:30 Manual Plt Count (120-450) K/mm3 Differential Comment See pathology report Platelet Evaluation (NORMAL) pCO2 (35-45) mm/Hg pO2 (80-100) mm/Hg HCO3 (21-28) mmol/L ABG pH (7.35-7.45) ABG Total CO2 (22-28) mmol.L ABG O2 Saturation (95-98) % ABG O2 Content (15-23) ML/dl ABG Base Excess (-2.0-3.0) mmol/L ABG Hemoglobin (11.7-17.4) g/dL ABG Carboxyhemoglobin (0.5-1.5) % POC ABG HHb (Measured) (0-5) % ABG Methemoglobin (0.0-3.0) % ABG O2 Capacity (16-24) mL/dl Hgb O2 Saturation (95.0-98.0) % FiO2 % POC Glucose (mg/dL) (65-110) mg/dL C-React Prot High Sens (1.00-3.00) mg/L Proteinase 3 (PR3) <1.0 (<1.0) AI Myeloperoxidase Ab <1.0 (<1.0) AI Heparin-induced Plt Ab Negative (Negative) Hep-Induced Plt Ab Cmmt 0.206 Complement C3 (88.0-165.0) mg/dL Complement C4 (14.0-44.0) mg/dL Blood Type Antibody Screen BBK History Checked 07/05/18 Range/Units 08:00 Manual Plt Count (120-450) K/mm3 Differential Comment Platelet Evaluation (NORMAL) pCO2 (35-45) mm/Hg pO2 (80-100) mm/Hg HCO3 (21-28) mmol/L ABG pH (7.35-7.45) ABG Total CO2 (22-28) mmol.L ABG O2 Saturation (95-98) % ABG O2 Content (15-23) ML/dl ABG Base Excess (-2.0-3.0) mmol/L ABG Hemoglobin (11.7-17.4) g/dL ABG Carboxyhemoglobin (0.5-1.5) % POC ABG HHb (Measured) (0-5) % ABG Methemoglobin (0.0-3.0) % ABG O2 Capacity (16-24) mL/dl Hgb O2 Saturation (95.0-98.0) % FiO2 % POC Glucose (mg/dL) (65-110) mg/dL C-React Prot High Sens (1.00-3.00) mg/L Proteinase 3 (PR3) (<1.0) AI Myeloperoxidase Ab (<1.0) AI Heparin-induced Plt Ab Negative (Negative) Hep-Induced Plt Ab Cmmt Complement C3 (88.0-165.0) mg/dL Complement C4 (14.0-44.0) mg/dL Blood Type Antibody Screen BBK History Checked Laboratory Results - last 24 hr 07/05/18 07/05/18 07/07/18 08:00 10:30 11:49 Manual Plt Count Differential Comment See pathology report Platelet Evaluation pCO2 pO2 HCO3 ABG pH ABG Total CO2 ABG O2 Saturation ABG O2 Content ABG Base Excess ABG Hemoglobin ABG Carboxyhemoglobin POC ABG HHb (Measured) ABG Methemoglobin ABG O2 Capacity Hgb O2 Saturation FiO2 POC Glucose (mg/dL) C-React Prot High Sens Proteinase 3 (PR3) Myeloperoxidase Ab Heparin-induced Plt Ab Negative Negative Hep-Induced Plt Ab Cmmt 0.206 Complement C3 Complement C4 Blood Type Antibody Screen BBK History Checked 07/07/18 07/07/18 07/08/18 12:00 16:10 05:30 Manual Plt Count 17 L* Differential Comment Platelet Evaluation Low pCO2 pO2 HCO3 ABG pH ABG Total CO2 ABG O2 Saturation ABG O2 Content ABG Base Excess ABG Hemoglobin ABG Carboxyhemoglobin POC ABG HHb (Measured) ABG Methemoglobin ABG O2 Capacity Hgb O2 Saturation FiO2 POC Glucose (mg/dL) C-React Prot High Sens > 15.00 H Proteinase 3 (PR3) <1.0 Myeloperoxidase Ab <1.0 Heparin-induced Plt Ab Hep-Induced Plt Ab Cmmt Complement C3 Complement C4 Blood Type Antibody Screen BBK History Checked 07/08/18 07/08/18 07/08/18 08:50 11:46 14:30 Manual Plt Count Differential Comment Platelet Evaluation pCO2 39 pO2 187.0 H HCO3 23.6 ABG pH 7.39 ABG Total CO2 24.8 ABG O2 Saturation 99.1 H ABG O2 Content 11.9 L ABG Base Excess -1.2 ABG Hemoglobin 8.4 L ABG Carboxyhemoglobin 1.1 POC ABG HHb (Measured) 0.9 ABG Methemoglobin 0.6 ABG O2 Capacity 12.0 L Hgb O2 Saturation 97.3 FiO2 60.0 POC Glucose (mg/dL) 277 H C-React Prot High Sens Proteinase 3 (PR3) Myeloperoxidase Ab Heparin-induced Plt Ab Hep-Induced Plt Ab Cmmt Complement C3 Complement C4 Blood Type O POSITIVE Antibody Screen Negative BBK History Checked Patient has bt 07/08/18 07/08/18 07/08/18 15:00 16:23 21:23 Manual Plt Count Differential Comment Platelet Evaluation pCO2 pO2 HCO3 ABG pH ABG Total CO2 ABG O2 Saturation ABG O2 Content ABG Base Excess ABG Hemoglobin ABG Carboxyhemoglobin POC ABG HHb (Measured) ABG Methemoglobin ABG O2 Capacity Hgb O2 Saturation FiO2 POC Glucose (mg/dL) 307 H 353 H C-React Prot High Sens Proteinase 3 (PR3) Myeloperoxidase Ab Heparin-induced Plt Ab Hep-Induced Plt Ab Cmmt Complement C3 59.0 L Complement C4 14.7 Blood Type Antibody Screen BBK History Checked 07/09/18 05:50 Manual Plt Count Differential Comment Platelet Evaluation pCO2 37 pO2 133.0 H HCO3 21.4 ABG pH 7.37 ABG Total CO2 22.5 ABG O2 Saturation 98.8 H ABG O2 Content 14.4 L ABG Base Excess -3.5 L ABG Hemoglobin 10.4 L ABG Carboxyhemoglobin 1.2 POC ABG HHb (Measured) 1.2 ABG Methemoglobin 0.7 ABG O2 Capacity 14.6 L Hgb O2 Saturation 96.9 FiO2 40.0 POC Glucose (mg/dL) C-React Prot High Sens Proteinase 3 (PR3) Myeloperoxidase Ab Heparin-induced Plt Ab Hep-Induced Plt Ab Cmmt Complement C3 Complement C4 Blood Type Antibody Screen BBK History Checked Radiology Impressions: Radiology Impressions Chest X-Ray 07/08/18 09:56 IMPRESSION: Worsening ARDS/pulmonary edema. Stable support apparatus. EKG/Cardiology Studies: Cardiology / EKG Studies 07/08/18 06:00 EKG [ELECTROCARDIOGRAM] DAILY Comment: Reason For Exam: Hyperkalemia 07/09/18 06:00 EKG [ELECTROCARDIOGRAM] DAILY Comment: Reason For Exam: Hyperkalemia 07/10/18 06:00 EKG [ELECTROCARDIOGRAM] DAILY Comment: Reason For Exam: Hyperkalemia 07/11/18 06:00 EKG [ELECTROCARDIOGRAM] DAILY Comment: Reason For Exam: Hyperkalemia 07/12/18 06:00 EKG [ELECTROCARDIOGRAM] DAILY Comment: Reason For Exam: Hyperkalemia Fingerstick Blood Sugar Results: 307 Review of Systems - Review of Systems Review of Systems: 12 point ROS unobtainable due to clinical condition. Critical Care Progress Note - Extremities/Vascular Does the Patient have a Ash Catheter?: Yes Does the Patient need a Ash Catheter?: Yes - Nutrition Nutrition: Nutrition Category Date Time Status NPO Diet [DIET] Diets 07/06/18 Breakfast Ordered Assessment/Plan - Assessment and Plan (Free Text) Assessment: 62yo male with PMHx of COPD, active smoker 1pk per day, HTN, DM, PVD, presents with ER with 2 day history of fever, chills, associated with cough that is non- productive. Yesterday, patient also developed SOB. Pt denies sick contacts, recent travel, CP, palpitations, CARTY, dizziness. In the ER, patient was noted to be hypoxic at 78%, on 2L NC, subsequently placed on BIPAP. No other constitutional symptoms. Pt was found to have increased work of breathing, RR 35-40, subsequently intubated. Placed on low tidal vol. ventilation. Patient was initially started on heparin drip given elevated troponin, and markedly diminished EF. Hep drip currently held secondary to thrombocytopenia. Initially paralyzed on Nimbex after overbreathing ventilator. Currently in MODS. Nimbex discontinued yesterday. Fevers overnight. Dobutamine drip decreased to 2.5mcg/kg. Plan for HD today. Neuro: - AAOx0, on sedation. Plan to discontinue sedation today after HD - pt. responds to painful stimuli - continue to monitor Pulm CAP and Flu A + 07/03/18 CXR: Stable pulm parenchymal infiltrates affecting R lung. Satisfactory position of endotracheal tube 07/03/18 CT chest: extensive alveolar infiltrate throughout R lung, consistent with PNA 07/04/18 CXR shows stable pulm parenchymal infiltrates, R>L. 07/03/18 ABG shows non anion gap metabolic acidosis 07/04/18 ABG shows metabolic acidosis 07/05/18 ABG shows improved metabolic acidosis 07/06/18 ABG shows worsening P/F ratio 07/06/18 CXR shows moderate cardiomegaly, severe vascular congestion showing slight improvement 07/07/18 CXR shows improvement in R vascular congestion 07/07/18 ABG shows improvement on permissive hypercapnea and low TV per ARDSNET trial. FiO2 down to 40% 07/08/18 ABG shows resp. acidosis 07/08/18 CXR shows improved ARDS 07/09/18 CXR shows improving ARDS on R side 07/09/18 ABG shows P/F ratio 333, exhibiting improved oxygenation and outside ARDS criteria - Duonebs seema q6 and PRN q2 - Continue Solumedrol 60mg IV Daily - Completed 5 day Tamiflu course - Abx: Levaquin 500 q48hr and Merrem 500 BID for possible secondary bacterial infection - Urine Lg and Strep negative - Procal 4.85 - ID eval: Dr. Fernandes - recs appreciated - Pulm consulted - Dr. Burr, recs appreciated - Resp therapy Cardio HFrEF - BNP 02956, although CXR only shows one sided infilatrate - 07/03/18 echo report shows EF 14.2%, mildly dilated LV, systolic function severely impaired, akinetic septum, moderate TR and pulm HTN - Decrease Dobutamine drip to 2.5 mcg for inotropic support per cardiac recs NSTEMI - Trop 0.48, 0.67, 0.67 - Cardiology consulted - Dr. Saxena. Cardiac cath on hold due to persistent thrombocytopenia. Hold Lasix per cardio. Further recs appreciated. - Hold IVF d/t poor EF. - Hold Heparin drip - 07/07/18 EKG showed sinus tach - 07/08/18 EKG shows NSR, no ST or T wave changes, LVH - 07/09/18 EKG shows NSR @ 82 bpm, LVH Chronic Thrombocytopenia, ITP - has received frequent intermittent transfusions as outpatient per medical record - PLT 16 - HIT Antibody negative - Hem consult placed- Dr. Estevez. 3 unit PLT transfused. 25 gm IV gammaglobulin day 3 of 4 total. Further recs appreciated per Dr. sEtevez. - F/u CRP, IVONE and ANCA studies - 07/08/18 Peripheral smear shows no atypical cells or immature forms. Mild anisopoikilocytosis. No schistocytes. No PL clumping although markedly reduced. - ESR 45 - Split products >10 but <40 Stable Normocytic Anemia - Hgb 7.8 this AM, no obvious sign of bleed, f/u FOBT GI - NGT in place Uncontrolled DM - Hgb a1c 8.2, accuchecks ACHS - Diabetic education Lipid panel - TG elevated at 172 Shock liver Transaminitis AST /ALT 307/224 > 543/409> 592/570> 717/746> 558/687> 270/476, normal Alk Phos. Hold hepatotoxic drugs Hep panel negative - 07/03/18 RUQ U/S shows hepatosplenomegaly PTX for Ppx Nephro OG on HD - Tolerated first HD 07/07/18 s/p triple lumen catheter in L femoral vein. HD s ession planned for today - Currently holding IVF and Diuretics per cardio. Nephro input appreciated - Strict Is and Os. Output has decreased over last 3 days. - Ash in place. - Nephro consult - recs appreciated HD - Performed with Dr. Mcnamara, session planned for today MSK - Wound care consulted - Podiatry consulted- Dr. Richardson- recs appreciated- no acute intervention at this time. Has signed off. - OT/PT eval ID - Further fever overnight, Tmax 102.2, Resolved Leukocytosis 6.9 - Rapid influenza A positive > Tamiflu course completed - ID eval: Dr. Fernandes - further recs appreciated. Would complete full 7 day course of ABx - 1 dose Vanc given 07/05/18 and 07/06/18. Random Vanc 19.1 on 07/07/18. - Sputum cx shows yeast species, blood cx neg after 5 days - GI ppx: PTX - DVT ppx: Hep drip held in light of thrombocytopenia Patient seen, case reviewed and plan approved by Dr. Sung. Ismael Turner, PGY-1 <Golden Sung - Last Filed: 07/09/18 12:58> CCU Objective - Vital Signs / Intake & Output Vital Signs (Last 4 hours): Vital Signs Pulse BP 07/09/18 11:43 81 117/60 Intake and Output (Last 8hrs): Intake & Output 07/08/18 07/09/18 07/09/18 22:59 06:59 14:59 Intake Total 870 511 100 Output Total 300 Balance 570 511 100 Intake: IV 570 200 100 Fentanyl 48 dobutamine 111 propofol 196 Tube Feeding 300 Blood Product 0 311 Apheresis Plts Acda Lr 0 311 1st Con Unit [id number] Output: Urine 300 Urethral (Ash) 300 - Medications Active Medications: Active Medications Generic Name Dose Route Start Last Admin Trade Name Freq PRN Reason Stop Dose Admin Acetaminophen 650 mg 07/08/18 18:18 07/08/18 18:39 Tylenol 650mg/20.3ml Solution Ud PO 650 mg Q6H PRN Administration Fever 101F Albuterol/Ipratropium 3 ml 07/03/18 14:00 07/09/18 07:58 Duoneb 3 Mg/0.5 Mg (3 Ml) Ud IH 3 ml [id number] SEEMA Administration Albuterol/Ipratropium 3 ml 07/03/18 11:04 07/08/18 20:22 Duoneb 3 Mg/0.5 Mg (3 Ml) Ud IH 3 ml Q2H PRN Administration Shortness of Breath Propofol 1,000 mg in 100 mls @ 2.79 mls/hr 07/03/18 16:11 07/09/18 07:49 Diprivan IV 35 mcg/kg/min .Q24H PRN 19.527 mls/hr TITRATE PER MD ORDER Administration Protocol 5 MCG/KG/MIN Fentanyl Citrate 1,000 mcg in 100 mls @ 10 mls/hr 07/03/18 16:44 07/09/18 04:43 Fentanyl Citrate/Sodium Chloride 1 Mg/100 Ml IV 40 mcg/hr .Q10H PRN 4 mls/hr TITRATE PER MD ORDER Administration Protocol 100 MCG/HR Heparin Sodium/Sodium Chloride 25,000 units in 250 mls @ 7.802 mls/hr 07/05/18 01:00 07/05/18 08:58 Heparin 22949 Units/250ml 1/2 Normal Saline IV Not Given .Q24H SEEMA Protocol 8 UNITS/KG/HR Immune Globulin 25 gm/ 250 mls @ 55 mls/hr 07/07/18 14:00 07/09/18 11:35 Miscellaneous IV 55 mls/hr DAILY SEEMA Administration Dobutamine HCl/Dextrose 500 mg in 250 mls @ 7.314 mls/hr 07/08/18 10:00 07/09/18 11:43 Dobutamine/Dextrose 5% 500mg/250ml IV 7.314 mls/hr .Q24H PRN Administration Cardiac contractility 2.5 MCG/KG/MIN Insulin Human Regular 0 units 07/03/18 22:00 07/09/18 12:43 Humulin R Med SC 7 units ACHS SEEMA Administration Protocol Methylprednisolone 60 mg 07/07/18 10:00 07/09/18 11:34 Solu-Medrol IVP 60 mg DAILY SEEMA Administration Pantoprazole Sodium 40 mg 07/03/18 14:15 07/09/18 11:34 Protonix Inj IVP 40 mg DAILY SEEMA Administration - Patient Studies Lab Studies: Microbiology Studies 07/03/18 09:45 Blood Culture - Final Blood NO GROWTH AFTER 5 DAYS Gram Stain - Final TEST NOT PERFORMED 07/03/18 09:25 Blood Culture - Final Blood NO GROWTH AFTER 5 DAYS Gram Stain - Final TEST NOT PERFORMED Lab Studies 07/09/18 07/09/18 07/09/18 Range/Units 09:15 06:39 06:39 WBC 6.9 D (4.5-11.0) 10^3/uL RBC 3.03 L (3.5-6.1) 10^6/uL Hgb 7.9 L (14.0-18.0) g/dL Hct 25.2 L (42.0-52.0) % MCV 83.2 (80.0-105.0) fl MCH 26.1 (25.0-35.0) pg MCHC 31.3 (31.0-37.0) g/dl RDW 17.0 H (11.5-14.5) % Plt Count 16 L* (120.0-450.0) 10^3/uL PT 13.8 H (9.4-12.5) SECONDS INR 1.20 pCO2 (35-45) mm/Hg pO2 (80-100) mm/Hg HCO3 (21-28) mmol/L ABG pH (7.35-7.45) ABG Total CO2 (22-28) mmol.L ABG O2 Saturation (95-98) % ABG O2 Content (15-23) ML/dl ABG Base Excess (-2.0-3.0) mmol/L ABG Hemoglobin (11.7-17.4) g/dL ABG Carboxyhemoglobin (0.5-1.5) % POC ABG HHb (Measured) (0-5) % ABG Methemoglobin (0.0-3.0) % ABG O2 Capacity (16-24) mL/dl Hgb O2 Saturation (95.0-98.0) % FiO2 % Sodium 141 (132-148) mmol/L Potassium 4.6 (3.6-5.0) mmol/L Chloride 104 (98-107) mmol/L Carbon Dioxide 23 (21-33) mmol/L Anion Gap 18 (10-20) BUN 137 H* (7-21) mg/dL Creatinine 5.1 H (0.8-1.5) mg/dl Est GFR ( Amer) 14 Est GFR (Non-Af Amer) 12 POC Glucose (mg/dL) (65-110) mg/dL Random Glucose 347 H* D (70-110) mg/dL Calcium 7.1 L (8.4-10.5) mg/dL Total Bilirubin 0.9 (0.2-1.3) mg/dL AST 137 H D (17-59) U/L ALT 336 H (7-56) U/L Alkaline Phosphatase 70 (38-126) U/L C-React Prot High Sens (1.00-3.00) mg/L Total Protein 6.2 (5.8-8.3) g/dL Total Protein (PEP) (6.1-8.1) g/dL Albumin 3.1 (3.0-4.8) g/dL Globulin 3.1 gm/dL Albumin/Globulin Ratio 1.0 L (1.1-1.8) IVONE Nuclear Membr Pat (Negative) Heparin-induced Plt Ab (Negative) Hep-Induced Plt Ab Cmmt Complement C3 (88.0-165.0) mg/dL Complement C4 (14.0-44.0) mg/dL Blood Type Antibody Screen BBK History Checked 07/09/18 07/08/18 07/08/18 Range/Units 05:50 21:23 16:23 WBC (4.5-11.0) 10^3/uL RBC (3.5-6.1) 10^6/uL Hgb (14.0-18.0) g/dL Hct (42.0-52.0) % MCV (80.0-105.0) fl MCH (25.0-35.0) pg MCHC (31.0-37.0) g/dl RDW (11.5-14.5) % Plt Count (120.0-450.0) 10^3/uL PT (9.4-12.5) SECONDS INR pCO2 37 (35-45) mm/Hg pO2 133.0 H (80-100) mm/Hg HCO3 21.4 (21-28) mmol/L ABG pH 7.37 (7.35-7.45) ABG Total CO2 22.5 (22-28) mmol.L ABG O2 Saturation 98.8 H (95-98) % ABG O2 Content 14.4 L (15-23) ML/dl ABG Base Excess -3.5 L (-2.0-3.0) mmol/L ABG Hemoglobin 10.4 L (11.7-17.4) g/dL ABG Carboxyhemoglobin 1.2 (0.5-1.5) % POC ABG HHb (Measured) 1.2 (0-5) % ABG Methemoglobin 0.7 (0.0-3.0) % ABG O2 Capacity 14.6 L (16-24) mL/dl Hgb O2 Saturation 96.9 (95.0-98.0) % FiO2 40.0 % Sodium (132-148) mmol/L Potassium (3.6-5.0) mmol/L Chloride (98-107) mmol/L Carbon Dioxide (21-33) mmol/L Anion Gap (10-20) BUN (7-21) mg/dL Creatinine (0.8-1.5) mg/dl Est GFR ( Amer) Est GFR (Non-Af Amer) POC Glucose (mg/dL) 353 H 307 H (65-110) mg/dL Random Glucose (70-110) mg/dL Calcium (8.4-10.5) mg/dL Total Bilirubin (0.2-1.3) mg/dL AST (17-59) U/L ALT (7-56) U/L Alkaline Phosphatase (38-126) U/L C-React Prot High Sens (1.00-3.00) mg/L Total Protein (5.8-8.3) g/dL Total Protein (PEP) (6.1-8.1) g/dL Albumin (3.0-4.8) g/dL Globulin gm/dL Albumin/Globulin Ratio (1.1-1.8) IVONE Nuclear Membr Pat (Negative) Heparin-induced Plt Ab (Negative) Hep-Induced Plt Ab Cmmt Complement C3 (88.0-165.0) mg/dL Complement C4 (14.0-44.0) mg/dL Blood Type Antibody Screen BBK History Checked 07/08/18 07/08/18 07/08/18 Range/Units 15:00 15:00 14:30 WBC (4.5-11.0) 10^3/uL RBC (3.5-6.1) 10^6/uL Hgb (14.0-18.0) g/dL Hct (42.0-52.0) % MCV (80.0-105.0) fl MCH (25.0-35.0) pg MCHC (31.0-37.0) g/dl RDW (11.5-14.5) % Plt Count (120.0-450.0) 10^3/uL PT (9.4-12.5) SECONDS INR pCO2 (35-45) mm/Hg pO2 (80-100) mm/Hg HCO3 (21-28) mmol/L ABG pH (7.35-7.45) ABG Total CO2 (22-28) mmol.L ABG O2 Saturation (95-98) % ABG O2 Content (15-23) ML/dl ABG Base Excess (-2.0-3.0) mmol/L ABG Hemoglobin (11.7-17.4) g/dL ABG Carboxyhemoglobin (0.5-1.5) % POC ABG HHb (Measured) (0-5) % ABG Methemoglobin (0.0-3.0) % ABG O2 Capacity (16-24) mL/dl Hgb O2 Saturation (95.0-98.0) % FiO2 % Sodium (132-148) mmol/L Potassium (3.6-5.0) mmol/L Chloride (98-107) mmol/L Carbon Dioxide (21-33) mmol/L Anion Gap (10-20) BUN (7-21) mg/dL Creatinine (0.8-1.5) mg/dl Est GFR ( Amer) Est GFR (Non-Af Amer) POC Glucose (mg/dL) (65-110) mg/dL Random Glucose (70-110) mg/dL Calcium (8.4-10.5) mg/dL Total Bilirubin (0.2-1.3) mg/dL AST (17-59) U/L ALT (7-56) U/L Alkaline Phosphatase (38-126) U/L C-React Prot High Sens (1.00-3.00) mg/L Total Protein (5.8-8.3) g/dL Total Protein (PEP) 5.6 L (6.1-8.1) g/dL Albumin (3.0-4.8) g/dL Globulin gm/dL Albumin/Globulin Ratio (1.1-1.8) IVONE Nuclear Membr Pat (Negative) Heparin-induced Plt Ab (Negative) Hep-Induced Plt Ab Cmmt Complement C3 59.0 L (88.0-165.0) mg/dL Complement C4 14.7 (14.0-44.0) mg/dL Blood Type O POSITIVE Antibody Screen Negative BBK History Checked Patient has bt 07/07/18 07/07/18 07/05/18 Range/Units 16:10 12:00 10:30 WBC (4.5-11.0) 10^3/uL RBC (3.5-6.1) 10^6/uL Hgb (14.0-18.0) g/dL Hct (42.0-52.0) % MCV (80.0-105.0) fl MCH (25.0-35.0) pg MCHC (31.0-37.0) g/dl RDW (11.5-14.5) % Plt Count (120.0-450.0) 10^3/uL PT (9.4-12.5) SECONDS INR pCO2 (35-45) mm/Hg pO2 (80-100) mm/Hg HCO3 (21-28) mmol/L ABG pH (7.35-7.45) ABG Total CO2 (22-28) mmol.L ABG O2 Saturation (95-98) % ABG O2 Content (15-23) ML/dl ABG Base Excess (-2.0-3.0) mmol/L ABG Hemoglobin (11.7-17.4) g/dL ABG Carboxyhemoglobin (0.5-1.5) % POC ABG HHb (Measured) (0-5) % ABG Methemoglobin (0.0-3.0) % ABG O2 Capacity (16-24) mL/dl Hgb O2 Saturation (95.0-98.0) % FiO2 % Sodium (132-148) mmol/L Potassium (3.6-5.0) mmol/L Chloride (98-107) mmol/L Carbon Dioxide (21-33) mmol/L Anion Gap (10-20) BUN (7-21) mg/dL Creatinine (0.8-1.5) mg/dl Est GFR ( Amer) Est GFR (Non-Af Amer) POC Glucose (mg/dL) (65-110) mg/dL Random Glucose (70-110) mg/dL Calcium (8.4-10.5) mg/dL Total Bilirubin (0.2-1.3) mg/dL AST (17-59) U/L ALT (7-56) U/L Alkaline Phosphatase (38-126) U/L C-React Prot High Sens > 15.00 H (1.00-3.00) mg/L Total Protein (5.8-8.3) g/dL Total Protein (PEP) (6.1-8.1) g/dL Albumin (3.0-4.8) g/dL Globulin gm/dL Albumin/Globulin Ratio (1.1-1.8) IVONE Nuclear Membr Pat Negative (Negative) Heparin-induced Plt Ab Negative (Negative) Hep-Induced Plt Ab Cmmt 0.206 Complement C3 (88.0-165.0) mg/dL Complement C4 (14.0-44.0) mg/dL Blood Type Antibody Screen BBK History Checked 07/05/18 Range/Units 08:00 WBC (4.5-11.0) 10^3/uL RBC (3.5-6.1) 10^6/uL Hgb (14.0-18.0) g/dL Hct (42.0-52.0) % MCV (80.0-105.0) fl MCH (25.0-35.0) pg MCHC (31.0-37.0) g/dl RDW (11.5-14.5) % Plt Count (120.0-450.0) 10^3/uL PT (9.4-12.5) SECONDS INR pCO2 (35-45) mm/Hg pO2 (80-100) mm/Hg HCO3 (21-28) mmol/L ABG pH (7.35-7.45) ABG Total CO2 (22-28) mmol.L ABG O2 Saturation (95-98) % ABG O2 Content (15-23) ML/dl ABG Base Excess (-2.0-3.0) mmol/L ABG Hemoglobin (11.7-17.4) g/dL ABG Carboxyhemoglobin (0.5-1.5) % POC ABG HHb (Measured) (0-5) % ABG Methemoglobin (0.0-3.0) % ABG O2 Capacity (16-24) mL/dl Hgb O2 Saturation (95.0-98.0) % FiO2 % Sodium (132-148) mmol/L Potassium (3.6-5.0) mmol/L Chloride (98-107) mmol/L Carbon Dioxide (21-33) mmol/L Anion Gap (10-20) BUN (7-21) mg/dL Creatinine (0.8-1.5) mg/dl Est GFR ( Amer) Est GFR (Non-Af Amer) POC Glucose (mg/dL) (65-110) mg/dL Random Glucose (70-110) mg/dL Calcium (8.4-10.5) mg/dL Total Bilirubin (0.2-1.3) mg/dL AST (17-59) U/L ALT (7-56) U/L Alkaline Phosphatase (38-126) U/L C-React Prot High Sens (1.00-3.00) mg/L Total Protein (5.8-8.3) g/dL Total Protein (PEP) (6.1-8.1) g/dL Albumin (3.0-4.8) g/dL Globulin gm/dL Albumin/Globulin Ratio (1.1-1.8) IVONE Nuclear Membr Pat (Negative) Heparin-induced Plt Ab Negative (Negative) Hep-Induced Plt Ab Cmmt Complement C3 (88.0-165.0) mg/dL Complement C4 (14.0-44.0) mg/dL Blood Type Antibody Screen BBK History Checked Laboratory Results - last 24 hr 07/05/18 07/05/18 07/07/18 08:00 10:30 12:00 WBC RBC Hgb Hct MCV MCH MCHC RDW Plt Count PT INR pCO2 pO2 HCO3 ABG pH ABG Total CO2 ABG O2 Saturation ABG O2 Content ABG Base Excess ABG Hemoglobin ABG Carboxyhemoglobin POC ABG HHb (Measured) ABG Methemoglobin ABG O2 Capacity Hgb O2 Saturation FiO2 Sodium Potassium Chloride Carbon Dioxide Anion Gap BUN Creatinine Est GFR ( Amer) Est GFR (Non-Af Amer) POC Glucose (mg/dL) Random Glucose Calcium Total Bilirubin AST ALT Alkaline Phosphatase C-React Prot High Sens Total Protein Total Protein (PEP) Albumin Globulin Albumin/Globulin Ratio IVONE Nuclear Membr Pat Negative Heparin-induced Plt Ab Negative Negative Hep-Induced Plt Ab Cmmt 0.206 Complement C3 Complement C4 Blood Type Antibody Screen BBK History Checked 07/07/18 07/08/18 07/08/18 16:10 14:30 15:00 WBC RBC Hgb Hct MCV MCH MCHC RDW Plt Count PT INR pCO2 pO2 HCO3 ABG pH ABG Total CO2 ABG O2 Saturation ABG O2 Content ABG Base Excess ABG Hemoglobin ABG Carboxyhemoglobin POC ABG HHb (Measured) ABG Methemoglobin ABG O2 Capacity Hgb O2 Saturation FiO2 Sodium Potassium Chloride Carbon Dioxide Anion Gap BUN Creatinine Est GFR ( Amer) Est GFR (Non-Af Amer) POC Glucose (mg/dL) Random Glucose Calcium Total Bilirubin AST ALT Alkaline Phosphatase C-React Prot High Sens > 15.00 H Total Protein Total Protein (PEP) Albumin Globulin Albumin/Globulin Ratio IVONE Nuclear Membr Pat Heparin-induced Plt Ab Hep-Induced Plt Ab Cmmt Complement C3 59.0 L Complement C4 14.7 Blood Type O POSITIVE Antibody Screen Negative BBK History Checked Patient has bt 07/08/18 07/08/18 07/08/18 15:00 16:23 21:23 WBC RBC Hgb Hct MCV MCH MCHC RDW Plt Count PT INR pCO2 pO2 HCO3 ABG pH ABG Total CO2 ABG O2 Saturation ABG O2 Content ABG Base Excess ABG Hemoglobin ABG Carboxyhemoglobin POC ABG HHb (Measured) ABG Methemoglobin ABG O2 Capacity Hgb O2 Saturation FiO2 Sodium Potassium Chloride Carbon Dioxide Anion Gap BUN Creatinine Est GFR ( Amer) Est GFR (Non-Af Amer) POC Glucose (mg/dL) 307 H 353 H Random Glucose Calcium Total Bilirubin AST ALT Alkaline Phosphatase C-React Prot High Sens Total Protein Total Protein (PEP) 5.6 L Albumin Globulin Albumin/Globulin Ratio IVONE Nuclear Membr Pat Heparin-induced Plt Ab Hep-Induced Plt Ab Cmmt Complement C3 Complement C4 Blood Type Antibody Screen BBK History Checked 07/09/18 07/09/18 07/09/18 05:50 06:39 06:39 WBC 6.9 D RBC 3.03 L Hgb 7.9 L Hct 25.2 L MCV 83.2 MCH 26.1 MCHC 31.3 RDW 17.0 H Plt Count 16 L* PT INR pCO2 37 pO2 133.0 H HCO3 21.4 ABG pH 7.37 ABG Total CO2 22.5 ABG O2 Saturation 98.8 H ABG O2 Content 14.4 L ABG Base Excess -3.5 L ABG Hemoglobin 10.4 L ABG Carboxyhemoglobin 1.2 POC ABG HHb (Measured) 1.2 ABG Methemoglobin 0.7 ABG O2 Capacity 14.6 L Hgb O2 Saturation 96.9 FiO2 40.0 Sodium 141 Potassium 4.6 Chloride 104 Carbon Dioxide 23 Anion Gap 18 BUN 137 H* Creatinine 5.1 H Est GFR ( Amer) 14 Est GFR (Non-Af Amer) 12 POC Glucose (mg/dL) Random Glucose 347 H* D Calcium 7.1 L Total Bilirubin 0.9 AST 137 H D ALT 336 H Alkaline Phosphatase 70 C-React Prot High Sens Total Protein 6.2 Total Protein (PEP) Albumin 3.1 Globulin 3.1 Albumin/Globulin Ratio 1.0 L IVONE Nuclear Membr Pat Heparin-induced Plt Ab Hep-Induced Plt Ab Cmmt Complement C3 Complement C4 Blood Type Antibody Screen BBK History Checked 07/09/18 09:15 WBC RBC Hgb Hct MCV MCH MCHC RDW Plt Count PT 13.8 H INR 1.20 pCO2 pO2 HCO3 ABG pH ABG Total CO2 ABG O2 Saturation ABG O2 Content ABG Base Excess ABG Hemoglobin ABG Carboxyhemoglobin POC ABG HHb (Measured) ABG Methemoglobin ABG O2 Capacity Hgb O2 Saturation FiO2 Sodium Potassium Chloride Carbon Dioxide Anion Gap BUN Creatinine Est GFR ( Amer) Est GFR (Non-Af Amer) POC Glucose (mg/dL) Random Glucose Calcium Total Bilirubin AST ALT Alkaline Phosphatase C-React Prot High Sens Total Protein Total Protein (PEP) Albumin Globulin Albumin/Globulin Ratio IVONE Nuclear Membr Pat Heparin-induced Plt Ab Hep-Induced Plt Ab Cmmt Complement C3 Complement C4 Blood Type Antibody Screen BBK History Checked Radiology Impressions: Radiology Impressions Chest X-Ray 07/08/18 09:56 IMPRESSION: Worsening ARDS/pulmonary edema. Stable support apparatus. Chest X-Ray 07/09/18 06:00 IMPRESSION: Interval mild improved aeration in the lungs with residual moderate pulmonary venous congestion. Persistent airspace disease in the lower lobes, worse on the left which may represent atelectasis or pneumonia. Stable position of endotracheal and nasogastric tubes. EKG/Cardiology Studies: Cardiology / EKG Studies 07/09/18 06:00 EKG [ELECTROCARDIOGRAM] DAILY Comment: Reason For Exam: Hyperkalemia 07/10/18 06:00 EKG [ELECTROCARDIOGRAM] DAILY Comment: Reason For Exam: Hyperkalemia 07/11/18 06:00 EKG [ELECTROCARDIOGRAM] DAILY Comment: Reason For Exam: Hyperkalemia 07/12/18 06:00 EKG [ELECTROCARDIOGRAM] DAILY Comment: Reason For Exam: Hyperkalemia Critical Care Progress Note - Nutrition Nutrition: Nutrition Category Date Time Status NPO Diet [DIET] Diets 07/06/18 Breakfast Ordered Assessment/Plan - Assessment and Plan (Free Text) Assessment: Patient seen and examined on rounds, with resident, agree with note with following additions/exceptions: Patient is 62yo male with PMhx of COPD, active smoker 2pks per day, HTN, DM, PVD, admitted for hypoxic respiratory failure, 2/2 Influenza PNA, and superimposed bacterial PNA. Pt is currently intubated, not on Vasopressor support, on PRVC FiO2 40%, PEEP 10; Nimbex shut off yesterday after 48hours. Pt's CXR with IMPROVED Aeration of upper lung miguel, ARDS. ABG with improved P/F ratio, currently >200 Weaning trial will beign today again after HD Pt's with chornic thrombocytopenia, no clinical evidence of overt bleeding Receiving IVIG HD as per renal, K normal today PNA ARDS FLU MODS Renal failure, s/p HD Thrombocytopenia rule out ITP/TTP COPD HTN PVD DM Recommend: - cont with vent support, low tidal vol ventilation, high PEEP, 10, P/F ratio significantly improved, daily ABG, CXR, weaning Trial, possible extubation - Conservative fluid management - Abx as per ID, Vanco renally dosed, Merrem, Tamiflu - BP control - HD as per renal - monitor LFTs - FS control, Start Levemir 20u QHS; may need insulin drip if no improvement - I/Os - IVIG as per heme onc - cont with Dobutamine - will likely need cardiac cath once more stable - follow up cardio - GI ppx - DVT ppx - Monitor in MICU Critical care time 35 minutes
[2018-07-09 07:08] LABS: HEMOGLOBIN 7.9 g/dL (14.0-18.0); MEAN CELL VOLUME 83.2 fl (80.0-105.0); MEAN CORPUSCULAR HEMOGLOBIN 26.1 pg (25.0-35.0); MEAN CORPUSCULAR HGB CONC 31.3 g/dl (31.0-37.0); RBC 3.03 10^6/uL (3.5-6.1); WHITE BLOOD COUNT 6.9 10^3/uL (4.5-11.0)
[2018-07-09 07:14] LABS: PLATELET COUNT 16 10^3/uL (120.0-450.0)
[2018-07-09 07:33] LABS: ALBUMIN 3.1 g/dL (3.0-4.8); CALCIUM 7.1 mg/dL (8.4-10.5)
--- NOTE | 2018-07-09 08:36 | PN ---
DATE: 07/08/2018 SUBJECTIVE: The patient had been transferred from the CCU to the ICU. The patient had an uneventful first dialysis last night. One liter of fluid was removed. His potassium level was reduced from a high yesterday of 7.8; using a one K-bath, it is 4.2 this morning. The patient will not need dialysis today, but will likely need dialysis tomorrow. MEDICATIONS: Medication list reviewed. The patient is currently on cisatracurium, Diprivan, Dobutrex, DuoNeb, fentanyl, heparin is on hold, immunoglobulin, sliding scale insulin, Levaquin, Protonix, Solu-Medrol, and Tamiflu. OBJECTIVE: INTAKE/OUTPUT. Intake is 2337, output is 550 of urine plus 1000 mL with dialysis. VITAL SIGNS: Blood pressure presently is 115/63. Respiratory rate is 30. Pulse ox is 94%. Heart rate is 116 with a temperature of 98.6. HEENT: Eyes are closed. The patient is intubated. NECK: No neck vein distention. CHEST: Scattered rhonchi and rales. Decreased breath sounds at the bases. CARDIOVASCULAR: Shows a regular rate and rhythm with MR/TR/PI. No S3, no S4, no rub. ABDOMEN: Soft. Bowel sounds normal. No rebound, guarding or masses. EXTREMITIES: Show no dependent edema. No cyanosis or clubbing. LABORATORY DATA AND IMAGING: CBC; white blood cell count today is 5.2 with a hemoglobin of 8.3 and a platelet count of 11,000. Manual platelet count is 17,000. Coags; fibrin split products greater than 10, less than 40. Blood gas today; pH 7.39, pO2 of 187 with a pCO2 of 39. Chemistry shows a potassium of 4.2 today. BUN of 98 with a creatinine of 3.9. Glucose is 269. Calcium 7.4. Last phosphorus level was 11. Liver enzymes remain elevated. Microbiology; blood cultures are negative at 5 days. Urine cultures are negative. Sputum culture was positive for yeast. Margarito Mcnamara MD
--- NOTE | 2018-07-09 08:37 | PN ---
ADDENDUM DATE: 07/08/2018 ASSESSMENT: 1. Acute renal failure in the setting of acute tubular necrosis. The patient is currently nonoliguric making 500 to 600 mL per day. The patient tolerated his acute dialysis last night with removal of 1 liter of fluid. His potassium level on a 1 K bath had fallen into the normal range. His potassium this morning is acceptable at 4.2. We will not do dialysis today, he will likely have dialysis tomorrow. A lengthy discussion took place last night with the patient's family and it was decided that acute dialysis would be appropriate. 2. Sepsis with community-acquired pneumonia and influenza. He remains on combination of antiviral antibacterial therapy. 3. History of severe cardiomyopathy, ejection fraction was 14% with mitral regurgitation/tricuspid regurgitation/pulmonary insufficiency. Likely non-ST myocardial infarction. The patient is being followed by Cardiology. 4. History of acute respiratory failure. The patient remains intubated. He remains unresponsive on sedation. 5. History of severe thrombocytopenia. Heparin-induced thrombocytopenia antibody is negative. The patient does have a long history of idiopathic thrombocytopenic purpura. 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 It is unlikely that he has thrombotic thrombocytopenic purpura or hemolytic uremic syndrome. 6. History of [id number] diabetes mellitus. The patient remains on sliding scale insulin. 7. History of hypertension. The patient remains normotensive, off blood pressure medications. 8. History of chronic obstructive pulmonary disease, stable. 9. History of elevated liver enzymes. Liver enzymes are slowly improving. PLAN: 1. Discussion with ICU staff and hemodialysis staff. We will plan a second dialysis for tomorrow, 07/09/2018. 2. As this is acute renal failure secondary to ATN, we are hoping that the patient will continue to have recovery of his renal parameters. We will see this with an increase in urine output initially. 3. Continue Dobutrex for blood pressure support in light of his cardiomyopathy. 4. Continue to monitor platelet counts, transfuse placements appropriately and continue immunoglobulin under the guidance of Hematology/Oncology. This is being done for ITP. 5. Continue to provide the patient nutritional support with tube feedings. We were awaiting a pump, so that he could receive the nutrition on an hourly basis instead of bolus dosing. Greater than 35 minutes spent the care of this critically ill patient. Margarito Mcnamara MD [id number]
[2018-07-09] MEDS: Insulin Reg-MEDIUM-Coverage SC SCH ×4 (08:43→21:45)
--- NOTE | 2018-07-09 09:05 | RAD ---
Date of service: 07/09/2018 HISTORY: f/u COMPARISON: 07/08/2018. FINDINGS: The endotracheal tube terminates in the mid trachea. The nasogastric tube terminates in the stomach. LUNGS: The lungs are well inflated. There is interval mild improved aeration in the lungs with persistent moderate pulmonary venous congestion. There is persistent airspace disease in the lower lobes, worse on the left. PLEURA: No pleural effusions or pneumothorax. CARDIOVASCULAR: Mild cardiomegaly. No aortic atherosclerotic calcification present. OSSEOUS STRUCTURES: Within normal limits for the patient's age. VISUALIZED UPPER ABDOMEN: Normal. OTHER FINDINGS: None. IMPRESSION: Interval mild improved aeration in the lungs with residual moderate pulmonary venous congestion. Persistent airspace disease in the lower lobes, worse on the left which may represent atelectasis or pneumonia. Stable position of endotracheal and nasogastric tubes.
--- NOTE | 2018-07-09 09:38 | CARD ---
APPROVED REPORT Date of service: 07/09/2018 EKG Measurement Heart [id number] <Conclusion> Normal sinus rhythm Nonspecific intraventricular conduction delay LVH ST_T Changes.
[2018-07-09 09:39] LABS: INR 1.2; PROTHROMBIN TIME 13.8 SECONDS (9.4-12.5)
--- NOTE | 2018-07-09 09:48 | CP.PCM.PN ---
Subjective - Date & Time of Evaluation Date of Evaluation: 07/09/18 Time of Evaluation: 09:44 - Subjective Subjective: Podiatry progress note for Dr. Benjamin Richardson 62M PMH of significant and active smoking history, COPD, HTN, DM, peripheral vascular disease, history of right elbow septic arthritis, history of right upper extremity cellulitis [place] [facility] [place] 2 days of fever and chills associated with shortness of breath as well as non-productive cough. Patient intubated. Objective - Vital Signs/Intake and Output Vital Signs (last 24 hours): Temp Pulse Resp BP Pulse Ox 101.3 F H 101 H 25 H 117/59 L 97 07/09/18 02:59 07/09/18 02:59 07/08/18 23:02 07/09/18 03:00 07/09/18 02:59 Intake and Output: 07/09/18 07/09/18 06:59 18:59 Intake Total 611 100 Balance 611 100 - Medications Medications: Current Medications Acetaminophen (Tylenol 650mg/20.3ml Solution Ud) 650 mg PO Q6H PRN PRN Reason: Fever 101F Last Admin: 07/08/18 18:39 Dose: 650 mg Albuterol/Ipratropium (Duoneb 3 Mg/0.5 Mg (3 Ml) Ud) 3 ml IH [id number] JHON Last Admin: 07/09/18 07:58 Dose: 3 ml Albuterol/Ipratropium (Duoneb 3 Mg/0.5 Mg (3 Ml) Ud) 3 ml IH Q2H PRN PRN Reason: Shortness of Breath Last Admin: 07/08/18 20:22 Dose: 3 ml Propofol (Diprivan) 1,000 mg in 100 mls @ 2.79 mls/hr IV .Q24H PRN; Protocol PRN Reason: TITRATE PER MD ORDER Last Admin: 07/09/18 07:49 Dose: 35 mcg/kg/min, 19.527 mls/hr Fentanyl Citrate (Fentanyl Citrate/Sodium Chloride 1 Mg/100 Ml) 1,000 mcg in 100 mls @ 10 mls/hr IV .Q10H PRN; Protocol PRN Reason: TITRATE PER MD ORDER Last Admin: 07/09/18 04:43 Dose: 40 mcg/hr, 4 mls/hr Heparin Sodium/Sodium Chloride (Heparin 52122 Units/250ml 1/2 Normal Saline) 25 ,000 units in 250 mls @ 7.802 mls/hr IV .Q24H [facility]; Protocol Last Admin: 07/05/18 08:58 Dose: Not Given Cisatracurium Besylate 200 mg/ (Sodium Chloride) 270 mls @ 3.95 mls/hr IV .Q24H PRN; Protocol PRN Reason: TITRATE PER MD ORDER Last Titration: 07/08/18 09:20 Dose: 0 mcg/kg/min, 0 mls/hr Immune Globulin 25 gm/ (Miscellaneous) 250 mls @ 55 mls/hr IV DAILY JHON Last Admin: 07/08/18 10:15 Dose: 55 mls/hr Dobutamine HCl/Dextrose (Dobutamine/Dextrose 5% 500mg/250ml) 500 mg in 250 mls @ 7.314 mls/hr IV .Q24H PRN PRN Reason: Cardiac contractility Last Admin: 07/08/18 10:00 Dose: 7.314 mls/hr Insulin Human Regular (Humulin R Med) 0 units SC ACHS [facility]; Protocol Last Admin: 07/09/18 08:43 Dose: 7 units Methylprednisolone (Solu-Medrol) 60 mg IVP DAILY [facility] Last Admin: 07/08/18 10:59 Dose: 60 mg Oseltamivir Phosphate (Tamiflu Susp) 30 mg PO Q12 JHON Last Admin: 07/08/18 22:00 Dose: 5 ml Pantoprazole Sodium (Protonix Inj) 40 mg IVP DAILY [facility] Last Admin: 07/08/18 10:14 Dose: 40 mg - Labs Labs: 07/09/18 06:39 07/09/18 06:39 PT 13.8 SECONDS (9.4-12.5) H 07/09/18 09:15 INR 1.20 07/09/18 09:15 APTT 18.7 Seconds (25.1-36.5) L 07/06/18 11:54 - Constitutional Appears: Well, No Acute Distress - Head Exam Head Exam: ATRAUMATIC, NORMOCEPHALIC - Eye Exam Eye Exam: Normal appearance - ENT Exam ENT Exam: Mucous Membranes Moist - Extremities Exam Additional comments: RLE focused Vasc: DP and PT pulses faintly palpable; cap refill <3 seconds to all digits; no edema noted to the foot or ankle; temp gradient warm to cool Derm: superficial submet 5 ulceration measuring 0.5 cm x 0.5 cm, does not probe, no tracking or tunneling, no clinical signs of infection, no malodor or drainage appreciated. Multiple scabs noted on the anterior aspect of the leg, no fluctuance, no open lesions, no clinical signs of infection Ortho: cannot determine due to patient state Neuro: cannot determine due to patient state Assessment and Plan - Assessment and Plan (Free Text) Assessment: 62M seen and evaluated in CCU for right submet 5 ulceration; healing Plan: Patient seen and evaluated Discussed in detail with Dr. Richardson Afebquintin, absent leukocytosis Patients ulcer is not clinically infected No podiatric intervention while patient in current state of health No dressing needed as the wound is healed. Podiatry will now sign off, please reconsult if necessary
--- NOTE | 2018-07-09 09:57 | PN ---
DATE: 07/09/2017 SUBJECTIVE The patient is currently seen on the ventilator. He remains unresponsive. His BUN and creatinine continue to elevate. He is scheduled for dialysis today. The patient's hyperkalemia has improved with dialysis treatments. His urine output appears to be declining. He currently passed 300 mL of urine yesterday. He remains on IV antibiotic therapy and antiviral therapy for his community-acquired pneumonia. He remains severely thrombocytopenic on immunoglobulins for ITP. As per Dr. Estevez, there is no evidence for TTP or hemolytic uremic syndrome looking at the peripheral smear. MEDICATIONS: Medication list reviewed. The patient is currently on Diprivan, Dobutrex, DuoNeb, fentanyl, heparin is on hold, sliding scale insulin, IV immunoglobulin, Protonix, Solu-Medrol, Tamiflu, and Tylenol p.r.n. OBJECTIVE: INTAKE/OUTPUT: Intake is 2201, output is 300. The patient remains sedated on a ventilator. VITAL SIGNS: Present blood pressure 117/59, temperature 101.3. Pulse 101. Respiratory rate is 25 with a pulse ox of 97%. HEENT: Eyes are closed. The patient is intubated. NECK: Supple. No neck vein distention. CHEST: Scattered rhonchi and rales. Decreased breath sounds at the bases. CARDIOVASCULAR: Shows a regular rate and rhythm with MR/TR/PI. No S3, no S4, no rub. ABDOMEN: Soft. Bowel sounds normal. No rebound, guarding or masses. EXTREMITIES: Show no dependent edema of his lower extremity. No cyanosis or clubbing. LABORATORY DATA AND IMAGING STUDIES: CBC, white blood cell count today 6.9, hemoglobin 7.9, platelet count is 16,000. Coags; fibrin split products greater than 10, less than 40. Blood gas today, pH 7.37, pCO2 of 37 with a pO2 of 133. Chemistry showed normal electrolytes. BUN is up to 137. Creatinine is 5.1. Glucose 347. Last calcium was 7.1. Phosphorus level is pending. Liver enzymes are elevated. Anti-GBM is pending. ANCA titers are negative. C3 as well as C4 is normal. Rheumatoid factor is pending. IVONE is pending. Cryoglobulins are pending. Microbiology: Urine is negative. Sputum is positive for yeast. Blood cultures are negative at 5 days. ASSESSMENT: 1. Acute renal failure in the setting of probable acute tubular necrosis in the setting of severe cardiomyopathy with a possible non-ST myocardial infarction. The patient has a severe cardiomyopathy with ejection fraction of 14%. The patient initially felt to have acute tubular necrosis, initially nonoliguric. The patient's urine output is declining. Workup for vasculitis is in progress. He is status post severe life-threatening hyperkalemia. He will receive his second dialysis treatment today. 2. Sepsis with community-acquired pneumonia and influenza. He remains on combination antiviral antibacterial medications. 3. History of severe cardiomyopathy which appears to be a new finding. Ejection fraction was 14% with valvular heart disease. Possible myocardial infarction as noted above. The patient is being followed by Cardiology and remains on ionotropic agents. 4. Acute respiratory failure. The patient is having sedation slowly decreased. We will see if he makes any weaning parameters. 5. History of severe thrombocytopenia. As per Dr. Estevez's note, no evidence for cystocytes. No evidence of hemolytic uremic syndrome or thrombotic thrombocytopenic purpura. Fibrin split products are between 10 and 40. The patient has iidiopathic thrombocytopenic purpura. He is receiving immunoglobulin as per Dr. Estevez. 6. History of [id number] diabetes mellitus. The patient remains on insulin. Glucose levels are elevated, 347 today. 7. History of chronic obstructive pulmonary disease, currently stable. 8. History of hypertension, not an issue. Blood pressure is in the low normal range. 9. Elevated liver enzymes. Liver enzymes continue to improve. Hepatitis serologies were negative. Liver ultrasound showed hepatosplenomegaly. PLAN: 1. Hemodialysis today. Continue to monitor blood pressure closely with dialysis. We will try and keep the patient in fluid balance. 2. Continue Dobutrex for ionotropic support. 3. Decrease sedation and see if the patient makes any weaning parameters. 4. Continue to monitor platelets, closely, transfuse as necessary. No evidence for TTP or hemolytic uremic syndrome as noted above. The patient remains on immunoglobulin. 5. Will continue to support the patient with dialysis. 6. Await for return of all serologies including anti-GBM antibodies. 7. In light of his critical situation, no possible role for a kidney biopsy at this point in time. Greater than 35 minutes spent in the care of this critically ill patient. Margarito Mcnamara MD [facility]
--- NOTE | 2018-07-09 10:11 | PN ---
DATE: 07/09/2018([id number]) SUBJECTIVE: The patient remains on the ventilator. He is sedated. PHYSICAL EXAMINATION: VITAL SIGNS: Last temperature recorded is 101.3, pulse on the monitor is 102, respiratory rate 22/20, blood pressure 117/59. HEENT: Normocephalic, atraumatic. NECK: No JVD. CARDIOVASCULAR: Systolic ejection murmur at the lower left sternal border. No S3 gallop. LUNGS: Decreased breath sounds at the bases. Less rhonchi. No wheezing. EXTREMITIES: Mild edema. No cyanosis or clubbing. GI: Abdomen is soft, nondistended. Bowel sounds are positive. SKIN: No acute rash. NEUROLOGIC: Exam limited to present time. 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 The right lower lobe infiltrate remains. However, there is further clearing of the left-side infiltrates. Arterial blood gas was done on PRVC 20, tidal volume 450, FiO2 of 40%. Results are pH 7.37, pCO2 of 37, pO2 of 133. IMPRESSION: 1. Respiratory failure. 2. Bilateral pneumonia. 3. Rule out myocardial infarction. 4. Ischemic dilated cardiomyopathy. 5. Renal failure. 6. Anemia, severe thrombocytopenia. 7. Chronic obstructive pulmonary disease. PLAN: The patient remains on the ventilator and in the ICU. He is sedated, but no longer paralyzed. I did discuss the case with the night nurse at length. The night nurse stated the patient had an uneventful night. I did review the chest x-ray as above. The chest x-ray shows further clearing of the left-sided pulmonary infiltrates; the right lower lobe infiltrate remains. I have also reviewed the arterial blood gas. The arterial blood gas has significantly improved - with normalization of the pH and a significant decrease in the alveolar-arterial gradient. I will discuss possible vent weaning with the ICU team later this morning. Inputs by Hematology, Cardiology, Infectious Disease are also noted. The patient remains critically ill with very guarded prognosis. I will discuss the above with entire ICU team in the next few moments. I will discuss the above with the attending physician later this morning. Balta Burr MD [facility] # [id number] [facility]
--- NOTE | 2018-07-09 10:33 | PN ---
DATE: 07/09/2018 SUBJECTIVE: The patient remains on a ventilator. PHYSICAL EXAMINATION: VITAL SIGNS: Blood pressure 117/60, heart rate is 100, temperature is 101. NECK: Negative JVD. LUNGS: Decreased breath sounds. HEART: Reveal S1, S2. EXTREMITIES: No change. LABORATORY DATA: Hemoglobin is 7.9, BUN and creatinine has increased to 137/5.1. IMPRESSION: 1. Respiratory failure. 2. Acute renal failure. PLAN: We will continue his IV dobutamine after his dialysis for the acute renal failure. Benjamin Saxena MD
[2018-07-09] MEDS: MethylPREDNISolone 40 mg Vial IVP SCH (11:34)
[2018-07-09] MEDS: PREMIXED IV SCH (11:35)
[2018-07-09] MEDS: IMMUNE GLOBULIN IV SCH (11:35)
[2018-07-09] MEDS: DOBUTamine 500mg/250ml D5W 500 MG/250 ML BAG IV PRN (11:43)
[2018-07-09] MEDS: Oseltamivir 6 MG/ML PO SCH (12:01)
--- NOTE | 2018-07-09 12:55 | PN ---
DATE: 07/09/2018 LOCATION: Room 128, bed 5. The patient is intubated and sedated. Review of systems is unobtainable at this time. The patient did spike a fever overnight to 102.2. Currently, the patient has a temperature of 100.3. His pulse rate is 100, blood pressure 117/59, pulse ox of 97% on the respirator. PHYSICAL EXAMINATION: HEENT: PERRLA, EOMI. There is no icterus present. The patient is intubated. NECK: Supple. No bruits or JVD appreciated. LUNGS: Show scattered wheezes with decreased breath sounds bilaterally. HEART: Regular rate and rhythm. The patient is tachycardic. There are no murmurs present. ABDOMEN: Slightly distended. There is no tenderness, no rebound, and bowel sounds are normoactive. EXTREMITIES: Negative for edema or cyanosis, as far as the upper extremities, the lower extremities, 2+ pitting edema of the right lower leg, chronic diabetic ulcer noted to the left anderson. NEUROLOGIC: The patient is sedated and intubated. LABORATORY DATA: WBC of 6.9, hemoglobin and hematocrit of 7.9 and 25.2, platelet count of 17,000, both machine and manual platelets. Chemistry: BUN of 137, creatinine of 5.1, random glucose of 347, calcium of 7.1, ALT and AST are 137 and 336 respectively which is slowly improving, albumin of 3.1. IMPRESSION: 1. Acute pulmonary edema. 2. Diabetes mellitus. 3. Hypokalemia. 4. Respiratory failure, the patient is intubated. 5. Pneumonia. PLAN: Continue current regimen. Cipriano Martinez MD
[2018-07-09 14:32] LABS: URINE BILIRUBIN NEGATIVE (NEGATIVE); URINE BLOOD LARGE (NEGATIVE); URINE GLUCOSE (UA) NEGATIVE (NEGATIVE); URINE LEUKOCYTE ESTERASE NEGATIVE Leu/uL (NEGATIVE); URINE PROTEIN 30 mg/dL (<30 mg/dL); URINE UROBILINOGEN 0.2 E.U./dL (<1 E.U./dL)
[2018-07-09 14:34] LABS: URINE APPEARANCE CLEAR (CLEAR); URINE COLOR YELLOW (YELLOW)
[2018-07-09 14:54] LABS: URINE BACTERIA LARGE /hpf; URINE COARSE GRANULAR CAST LARGE /hpf; URINE EPITHELIAL CELLS 0 - 2 /hpf (0-5); URINE FINE GRANULAR CAST 0 - 2 /hpf; URINE RBC TNTC /hpf (0-2); URINE RED BLOOD CELL CAST 0 - 2 /hpf
[2018-07-09 14:55] LABS: URINE AMORPHOUS SEDIMENT SMALL /hpf
--- NOTE | 2018-07-09 16:49 | PCM.PROC ---
Procedures Attestation:: I certify that I have explained the specified Operation(s) or Procedure(s), risks, benefits and reasonable alternatives to the Patient and/or other person responsible. The opportunity was given to ask questions and all questions answered - Central Line Placement Right Femoral Hemodialysis Access Aseptic technique was employed throughout the procedure: Hand Hygiene done prior to procedure, Full sterile barriers (mask, hair cover, sterile gown, sterile gloves), Chloraprep Antiseptic: 30 second prep for IJ or SC sites, Chloraprep Antiseptic: 2 minute prep for Femoral Pt. Placed on Pulse Ox Monitor: Yes Central Line Prep: Chlorhexidine-Alcohol Combination Local Anesthesia Used: Lidocaine 1% Ultrasound Used for Placement: Yes Central Line Lumen Inserted: triple Central Line Length: 20 cm Post Procedure: Sutured in Place, Good Blood Return, All Ports Aspirated, Flushed, Capped, Sterile Dressing Applied Secured by: Suture Post procedure dressing: Gauze, Chlorhexidine disc (Biopatch) Patient Tolerated Procedure: Well Immediate Complications: None
--- NOTE | 2018-07-09 19:10 | PN ---
DATE: 07/09/2018 SUBJECTIVE: The patient is in bed, in no acute distress, nontoxic. OBJECTIVE: VITAL SIGNS: Temperature is 101.3, blood pressure is 117/60, respiratory rate of 8 on a vent and heart rate of 81. HEENT: ET tube in place. NECK: Supple. LUNGS: Decreased breath sounds. HEART: Normal S1, S2. ABDOMEN: Soft, nontender. LABORATORY DATA: White count of 6.9, hemoglobin of 7.9. Urinalysis is noted. Toxicology is noted. Influenza is positive. Urine for Legionella negative. Creatinine is 5.1. LFTs are somewhat improved. Microbiology reveals urine cultures negative, blood cultures negative. REVIEW OF ORDERS: Reveals the patient to be on Solu-Medrol. The patient's Levaquin, Tamiflu and meropenem were discontinued as of yesterday. Review of the chest x-ray from this morning, the ET tube terminates in the trachea. The lungs are well inflamed and poor aeration of lungs, moderate persistent airspace disease in the lower lungs. ASSESSMENT AND PLAN This is a 62-year-old male in respiratory failure, intubated on a ventilator, with severe sepsis, with influenza A, with acute kidney injury, hypoxic respiratory failure, [id number] renal failure, thrombocytopenia, severe right-sided acquired pneumonia on top of viral influenza in a patient with chronic refractory lung disease who is long-time smoker, has had 7 days of Levaquin and meropenem with persistent fevers. The intensive care unit team has decided to discontinue the antibiotics. Patient has had Tamiflu also, currently off of antibiotics. We will repeat blood cultures x2, urine cultures, sputum cultures. Although the Methicillin-resistant Staphylococcus aureus screen was negative, we will repeat that. We will repeat a procalcitonin, it was elevated in face of renal disease and subramanian culture and we will follow closely off of antibiotics for 24 hours and may need to restart antibiotics if any indications. Satya Fernandes MD
[2018-07-09] MEDS: Insulin Detemir 100 units/ml Vial (Levemir) SC SCH (21:49)
--- NOTE | 2018-07-10 02:10 | PN ---
DATE: 07/09/2018 LOCATION: The patient is in ICU, 128, bed 5. SUBJECTIVE: The patient is intubated and sedated. Review of systems is unobtainable at this time as the patient is sedated. The patient did spike a temperature last night. Currently, the patient's temperature is 100.3, respirations are at 22 per minute, pulse rate is 100, blood pressure is 117/59, pulse ox is 97%. The patient is currently on 40% FiO2. Plan by the rn flight is that they may be able to wean him off the respirator by tomorrow and may be able to extubate if things go well. The patient is scheduled for dialysis, and they are requesting that use small amounts of heparin to prevent clotting during dialysis, which I have okayed. PHYSICAL EXAMINATION: GENERAL: The patient is intubated. There is no bleeding in the ET tube. There is no bleeding in the nasogastric tube as well. No significant ecchymosis noted. HEENT: Examination of the oropharynx reveals it to be dry. NECK: Supple. There is no bruit. No jugular venous distention noted. LUNGS: Reveal scattered wheezes with decreased breath sounds bilaterally. HEART: Reveals S1 and S2 to be normal. No gallop or murmur is heard. ABDOMEN: Soft, protuberant, likely distended. No rebound, rigidity, or guarding is noted. EXTREMITIES: Negative for any cyanosis or edema in the upper extremities. There is 2+ edema of the right lower extremity. Chronic diabetic ulcer noted in the left anderson. NEUROLOGIC: The patient remains intubated and sedated. LABORATORY DATA: Reveals a white count of 6.9, hemoglobin and hematocrit of 7.9 and 25.2, platelet count of 17,000, which is manual count. Chemistries revealed a BUN of 137, creatinine of 5.1, random glucose of 347. ALT and AST are 137 and 336, slowly improving. Albumin is 3.1. ASSESSMENT, NOTES, AND PLAN: The patient has multiorgan failure with acute respiratory distress syndrome with component of exacerbation of his thrombocytopenia related to the hypokalemia, diabetes, pneumonia, sepsis, on multiple antibiotics. Plan will be to continue current regimen. We need to give the patient IV IgG today, and the patient also needs single donor for his platelets. We will have to assess the patient for transfusion as well if the counts continue to drop. I okayed the use for low-dose heparin during dialysis to prevent clotting of the catheter. Plan would be to give gamma globulin for a total of 5 days if tolerated by the patient. We will continue to follow the patient and make appropriate recommendations. Time spent with the patient is greater than 50 minutes in correlating all the information, discussing with the nursing staff as well. Sandra Estevez MD
[2018-07-10] MEDS: Albuterol-Ipratrop 3 mg / 0.5 (3 ml) UD IH SCH ×4 (02:23→19:35)
[2018-07-10] MEDS: Propofol 10 mg/ml 1,000 MG/100 ML VIAL IV PRN (03:15)
[2018-07-10] MEDS: Fentanyl 1000mcg/100ml NS 1,000 MCG/100 ML BAG IV PRN (04:52)
[2018-07-10 05:12] LABS: ALBUMIN (PEP) 2.9 g/dL (3.8-4.8); ALPHA-1-GLOBULIN (PEP) 0.5 g/dL (0.2-0.3)
[2018-07-10 06:22] LABS: ARTERIAL BLOOD GAS HCO3 26.4 mmol/L (21-28); ARTERIAL BLOOD GAS HEMOGLOBIN 7.7 g/dL (11.7-17.4); ARTERIAL BLOOD GAS O2 CAPACITY 10.8 mL/dl (16-24); ARTERIAL BLOOD GAS O2 CONTENT 10.7 ML/dl (15-23); ARTERIAL BLOOD GAS O2 SAT 99.5 % (95-98); ARTERIAL BLOOD GAS PCO2 38 mm/Hg (35-45); ARTERIAL BLOOD GAS PH 7.45 (7.35-7.45); ARTERIAL BLOOD GAS TCO2 27.6 mmol.L (22-28)
[2018-07-10 07:09] LABS: HEMOGLOBIN 7.4 g/dL (14.0-18.0); MEAN CELL VOLUME 81.5 fl (80.0-105.0); MEAN CORPUSCULAR HEMOGLOBIN 26.3 pg (25.0-35.0); MEAN CORPUSCULAR HGB CONC 32.3 g/dl (31.0-37.0); RBC 2.81 10^6/uL (3.5-6.1); RED CELL DISTRIBUTION WIDTH 16.8 % (11.5-14.5); WHITE BLOOD COUNT 9.5 10^3/uL (4.5-11.0)
--- NOTE | 2018-07-10 07:13 | CP.CCUPN ---
<Ismael Turner - Last Filed: 07/10/18 10:38> CCU Subjective - Physician Review Subjective (Free Text): Ismael Turner PGY-1 Progress Note for ICU Patient seen and evaluated at bedside. Afebrile overnight. Presently titrating sedation on Propofol and Fentanyl drips. Dobutamine drip @ 2.5 currently. Heparin drip remains on hold. Further ROS was unobtainable at this time due to clinical condition. CCU Objective - Vital Signs / Intake & Output Vital Signs (Last 4 hours): Vital Signs Temp Pulse BP Pulse Ox 07/10/18 04:00 98.2 F 73 111/62 99 Intake and Output (Last 8hrs): Intake & Output 07/09/18 07/10/18 07/10/18 22:59 06:59 14:59 Intake Total 450 200 Output Total 1800 Balance -1350 200 Intake: IV 200 200 Other 250 Output: Urine 900 Urethral (Ash) 900 Other 900 Other: # Bowel Movements 2 - Physical Exam Head: Positive for: Atraumatic, Normocephalic Pupils: Positive for: PERRL Extroacular Muscles: Positive for: EOMI Conjunctiva: Positive for: Normal Mouth: Positive for: Other (OGT in place) Pharnyx: Positive for: Other (Intubated, currently at 40/10/20/450) Respiratory/Chest: Positive for: Wheezes (mild expiratory wheeze bilaterally), Decreased Breath Sounds, Tachypneic, Other (Intubated). Negative for: Respiratory Distress Cardiovascular: Positive for: Normal S1, S2, Tachycardic. Negative for: Murmurs Abdomen: Positive for: Distention. Negative for: Tenderness, Peritoneal Signs Back: Positive for: Normal Inspection Upper Extremity: Positive for: Other (Ecchymoses noted in antecubital areas). Negative for: Normal Inspection, Cyanosis, Edema Lower Extremity: Positive for: Edema (2+ pitting edema noted to right lower extremity; chronic diabetic ulcer noted to anterior anderson of left lower extremity ) Neurological: Positive for: Other (unable to be assessed 2/2 sedation) Skin: Positive for: Warm, Dry, Normal Color. Negative for: Rashes Psychiatric: Negative for: Alert, Oriented x 3, Normal Insight, Normal Concentration - Medications Active Medications: Active Medications Generic Name Dose Route Start Last Admin Trade Name Freq PRN Reason Stop Dose Admin Acetaminophen 650 mg 07/08/18 18:18 07/08/18 18:39 Tylenol 650mg/20.3ml Solution Ud PO 650 mg Q6H PRN Administration Fever 101F Albuterol/Ipratropium 3 ml 07/03/18 14:00 07/09/18 20:36 Duoneb 3 Mg/0.5 Mg (3 Ml) Ud IH 3 ml [id number] SEEMA Administration Albuterol/Ipratropium 3 ml 07/03/18 11:04 07/08/18 20:22 Duoneb 3 Mg/0.5 Mg (3 Ml) Ud IH 3 ml Q2H PRN Administration Shortness of Breath Heparin Sodium (Porcine) 2,000 units 07/09/18 18:30 07/09/18 18:35 Heparin IVP 2,000 units ONCE SEEMA Administration Propofol 1,000 mg in 100 mls @ 2.79 mls/hr 07/03/18 16:11 07/10/18 03:15 Diprivan IV 35 mcg/kg/min .Q24H PRN 19.527 mls/hr TITRATE PER MD ORDER Administration Protocol 5 MCG/KG/MIN Fentanyl Citrate 1,000 mcg in 100 mls @ 10 mls/hr 07/03/18 16:44 07/10/18 04:52 Fentanyl Citrate/Sodium Chloride 1 Mg/100 Ml IV 125 mcg/hr .Q10H PRN 12.5 mls/hr TITRATE PER MD ORDER Administration Protocol 100 MCG/HR Heparin Sodium/Sodium Chloride 25,000 units in 250 mls @ 7.802 mls/hr 07/05/18 01:00 07/05/18 08:58 Heparin 33564 Units/250ml 1/2 Normal Saline IV Not Given .Q24H SEEMA Protocol 8 UNITS/KG/HR Immune Globulin 25 gm/ 250 mls @ 55 mls/hr 07/07/18 14:00 07/09/18 11:35 Miscellaneous IV 55 mls/hr DAILY SEEMA Administration Dobutamine HCl/Dextrose 500 mg in 250 mls @ 7.314 mls/hr 07/08/18 10:00 07/09/18 11:43 Dobutamine/Dextrose 5% 500mg/250ml IV 7.314 mls/hr .Q24H PRN Administration Cardiac contractility 2.5 MCG/KG/MIN Insulin Detemir 10 unit 07/09/18 22:00 07/09/18 21:49 Levemir SC 10 unit HS SEEMA Administration Insulin Human Regular 0 units 07/03/18 22:00 07/09/18 21:45 Humulin R Med SC Not Given ACHS [facility] Protocol Methylprednisolone 60 mg 07/07/18 10:00 07/09/18 11:34 Solu-Medrol IVP 60 mg DAILY SEEMA Administration Pantoprazole Sodium 40 mg 07/03/18 14:15 07/09/18 11:34 Protonix Inj IVP 40 mg DAILY SEEMA Administration - Patient Studies Lab Studies: Lab Studies 07/10/18 07/09/18 07/09/18 Range/Units 06:18 21:16 20:00 WBC (4.5-11.0) 10^3/uL RBC (3.5-6.1) 10^6/uL Hgb (14.0-18.0) g/dL Hct (42.0-52.0) % MCV (80.0-105.0) fl MCH (25.0-35.0) pg MCHC (31.0-37.0) g/dl RDW (11.5-14.5) % Plt Count (120.0-450.0) 10^3/uL PT (9.4-12.5) SECONDS INR pCO2 38 (35-45) mm/Hg pO2 122.0 H (80-100) mm/Hg HCO3 26.4 (21-28) mmol/L ABG pH 7.45 (7.35-7.45) ABG Total CO2 27.6 (22-28) mmol.L ABG O2 Saturation 99.5 H (95-98) % ABG O2 Content 10.7 L (15-23) ML/dl ABG Base Excess 2.3 (-2.0-3.0) mmol/L ABG Hemoglobin 7.7 L (11.7-17.4) g/dL ABG Carboxyhemoglobin 1.9 H (0.5-1.5) % POC ABG HHb (Measured) 0.5 (0-5) % ABG Methemoglobin 1.0 (0.0-3.0) % ABG O2 Capacity 10.8 L (16-24) mL/dl Hgb O2 Saturation 96.6 (95.0-98.0) % FiO2 60.0 % Sodium (132-148) mmol/L Potassium (3.6-5.0) mmol/L Chloride (98-107) mmol/L Carbon Dioxide (21-33) mmol/L Anion Gap (10-20) BUN (7-21) mg/dL Creatinine (0.8-1.5) mg/dl Est GFR ( Amer) Est GFR (Non-Af Amer) POC Glucose (mg/dL) 253 H (65-110) mg/dL Random Glucose (70-110) mg/dL Calcium (8.4-10.5) mg/dL Total Bilirubin (0.2-1.3) mg/dL AST (17-59) U/L ALT (7-56) U/L Alkaline Phosphatase (38-126) U/L Total Protein (5.8-8.3) g/dL Total Protein (PEP) (6.1-8.1) g/dL Albumin (3.0-4.8) g/dL Albumin (PEP) (3.8-4.8) g/dL Globulin gm/dL Albumin/Globulin Ratio (1.1-1.8) Eawat-6-Xnzokytms (0.2-0.3) g/dL Gtvge-6-Elxaxfvoe (0.5-0.9) g/dL Uxyy-8-Tqyxcrio (0.4-0.6) g/dL Virk-4-Uyeorkmo (0.2-0.5) g/dL Gamma Globulins (0.8-1.7) g/dL Abnorm Protein Band 1 Abnorm Protein Band 2 Abnorm Protein Band 3 Procalcitonin (0.19-0.49) NG/ML Urine Color (YELLOW) Urine Appearance (CLEAR) Urine pH (4.7-8.0) Ur Specific [place] (1.005-1.035) Urine Protein (<30 mg/dL) mg/dL Urine Glucose (UA) (NEGATIVE) mg/dL Urine Ketones (NEGATIVE) mg/dL Urine Blood (NEGATIVE) Urine Nitrate (NEGATIVE) Urine Bilirubin (NEGATIVE) Urine Urobilinogen (<1 E.U./dL) E.U./dL Ur Leukocyte Esterase (NEGATIVE) Dani/uL Urine RBC (0-2) /hpf Urine WBC (0-6) /hpf Ur Epithelial Cells (0-5) /hpf Amorphous Sediment (NONE) /hpf Urine Bacteria (NONE) /hpf Fine Granular Casts (NONE) /hpf Coarse Granular Casts (NONE) /hpf RBC Casts (NONE) /hpf Urine Other /hpf Urine Eosinophils Negative YUE & SPEP Interp IVONE Nuclear Membr Pat (Negative) Proteinase 3 (PR3) (<1.0) AI Myeloperoxidase Ab (<1.0) AI MARCELO UFH Low Dose 0.1 % Release MARCELO UFH Low Dose 0.5 % Release MARCELO UFH High Dose 100 % Release MARCELO Unfract Heparin (Negative) 07/09/18 07/09/18 07/09/18 Range/Units 16:52 14:22 13:20 WBC (4.5-11.0) 10^3/uL RBC (3.5-6.1) 10^6/uL Hgb (14.0-18.0) g/dL Hct (42.0-52.0) % MCV (80.0-105.0) fl MCH (25.0-35.0) pg MCHC (31.0-37.0) g/dl RDW (11.5-14.5) % Plt Count (120.0-450.0) 10^3/uL PT (9.4-12.5) SECONDS INR pCO2 (35-45) mm/Hg pO2 (80-100) mm/Hg HCO3 (21-28) mmol/L ABG pH (7.35-7.45) ABG Total CO2 (22-28) mmol.L ABG O2 Saturation (95-98) % ABG O2 Content (15-23) ML/dl ABG Base Excess (-2.0-3.0) mmol/L ABG Hemoglobin (11.7-17.4) g/dL ABG Carboxyhemoglobin (0.5-1.5) % POC ABG HHb (Measured) (0-5) % ABG Methemoglobin (0.0-3.0) % ABG O2 Capacity (16-24) mL/dl Hgb O2 Saturation (95.0-98.0) % FiO2 % Sodium (132-148) mmol/L Potassium (3.6-5.0) mmol/L Chloride (98-107) mmol/L Carbon Dioxide (21-33) mmol/L Anion Gap (10-20) BUN (7-21) mg/dL Creatinine (0.8-1.5) mg/dl Est GFR ( Amer) Est GFR (Non-Af Amer) POC Glucose (mg/dL) 234 H (65-110) mg/dL Random Glucose (70-110) mg/dL Calcium (8.4-10.5) mg/dL Total Bilirubin (0.2-1.3) mg/dL AST (17-59) U/L ALT (7-56) U/L Alkaline Phosphatase (38-126) U/L Total Protein (5.8-8.3) g/dL Total Protein (PEP) (6.1-8.1) g/dL Albumin (3.0-4.8) g/dL Albumin (PEP) (3.8-4.8) g/dL Globulin gm/dL Albumin/Globulin Ratio (1.1-1.8) Wgegu-0-Zexsaelsh (0.2-0.3) g/dL Nwaej-4-Dxhhakefj (0.5-0.9) g/dL Aaom-1-Soahounv (0.4-0.6) g/dL Qndm-4-Rmqekwdv (0.2-0.5) g/dL Gamma Globulins (0.8-1.7) g/dL Abnorm Protein Band 1 Abnorm Protein Band 2 Abnorm Protein Band 3 Procalcitonin 5.96 H (0.19-0.49) NG/ML Urine Color Yellow (YELLOW) Urine Appearance Clear (CLEAR) Urine pH 6.0 (4.7-8.0) Ur Specific [place] 1.020 (1.005-1.035) Urine Protein 30 H (<30 mg/dL) mg/dL Urine Glucose (UA) Negative (NEGATIVE) mg/dL Urine Ketones Negative (NEGATIVE) mg/dL Urine Blood Large H (NEGATIVE) Urine Nitrate Negative (NEGATIVE) Urine Bilirubin Negative (NEGATIVE) Urine Urobilinogen 0.2 (<1 E.U./dL) E.U./dL Ur Leukocyte Esterase Negative (NEGATIVE) Dani/uL Urine RBC Tntc H (0-2) /hpf Urine WBC 5 - 10 H (0-6) /hpf Ur Epithelial Cells 0 - 2 (0-5) /hpf Amorphous Sediment Small (NONE) /hpf Urine Bacteria Large (NONE) /hpf Fine Granular Casts 0 - 2 (NONE) /hpf Coarse Granular Casts Large (NONE) /hpf RBC Casts 0 - 2 (NONE) /hpf Urine Other Uyeast /hpf Urine Eosinophils YUE & SPEP Interp IVONE Nuclear Membr Pat (Negative) Proteinase 3 (PR3) (<1.0) AI Myeloperoxidase Ab (<1.0) AI MARCELO UFH Low Dose 0.1 % Release MARCELO UFH Low Dose 0.5 % Release MARCELO UFH High Dose 100 % Release MARCELO Unfract Heparin (Negative) 07/09/18 07/09/18 07/09/18 Range/Units 11:11 09:15 07:39 WBC (4.5-11.0) 10^3/uL RBC (3.5-6.1) 10^6/uL Hgb (14.0-18.0) g/dL Hct (42.0-52.0) % MCV (80.0-105.0) fl MCH (25.0-35.0) pg MCHC (31.0-37.0) g/dl RDW (11.5-14.5) % Plt Count (120.0-450.0) 10^3/uL PT 13.8 H (9.4-12.5) SECONDS INR 1.20 pCO2 (35-45) mm/Hg pO2 (80-100) mm/Hg HCO3 (21-28) mmol/L ABG pH (7.35-7.45) ABG Total CO2 (22-28) mmol.L ABG O2 Saturation (95-98) % ABG O2 Content (15-23) ML/dl ABG Base Excess (-2.0-3.0) mmol/L ABG Hemoglobin (11.7-17.4) g/dL ABG Carboxyhemoglobin (0.5-1.5) % POC ABG HHb (Measured) (0-5) % ABG Methemoglobin (0.0-3.0) % ABG O2 Capacity (16-24) mL/dl Hgb O2 Saturation (95.0-98.0) % FiO2 % Sodium (132-148) mmol/L Potassium (3.6-5.0) mmol/L Chloride (98-107) mmol/L Carbon Dioxide (21-33) mmol/L Anion Gap (10-20) BUN (7-21) mg/dL Creatinine (0.8-1.5) mg/dl Est GFR ( Amer) Est GFR (Non-Af Amer) POC Glucose (mg/dL) 328 H 335 H (65-110) mg/dL Random Glucose (70-110) mg/dL Calcium (8.4-10.5) mg/dL Total Bilirubin (0.2-1.3) mg/dL AST (17-59) U/L ALT (7-56) U/L Alkaline Phosphatase (38-126) U/L Total Protein (5.8-8.3) g/dL Total Protein (PEP) (6.1-8.1) g/dL Albumin (3.0-4.8) g/dL Albumin (PEP) (3.8-4.8) g/dL Globulin gm/dL Albumin/Globulin Ratio (1.1-1.8) Syckm-3-Ntlokychn (0.2-0.3) g/dL Uqzkj-9-Xvaewsqda (0.5-0.9) g/dL Pzdw-7-Ounqtven (0.4-0.6) g/dL Tfgw-7-Xihvrxwl (0.2-0.5) g/dL Gamma Globulins (0.8-1.7) g/dL Abnorm Protein Band 1 Abnorm Protein Band 2 Abnorm Protein Band 3 Procalcitonin (0.19-0.49) NG/ML Urine Color (YELLOW) Urine Appearance (CLEAR) Urine pH (4.7-8.0) Ur Specific [place] (1.005-1.035) Urine Protein (<30 mg/dL) mg/dL Urine Glucose (UA) (NEGATIVE) mg/dL Urine Ketones (NEGATIVE) mg/dL Urine Blood (NEGATIVE) Urine Nitrate (NEGATIVE) Urine Bilirubin (NEGATIVE) Urine Urobilinogen (<1 E.U./dL) E.U./dL Ur Leukocyte Esterase (NEGATIVE) Dani/uL Urine RBC (0-2) /hpf Urine WBC (0-6) /hpf Ur Epithelial Cells (0-5) /hpf Amorphous Sediment (NONE) /hpf Urine Bacteria (NONE) /hpf Fine Granular Casts (NONE) /hpf Coarse Granular Casts (NONE) /hpf RBC Casts (NONE) /hpf Urine Other /hpf Urine Eosinophils YUE & SPEP Interp IVONE Nuclear Membr Pat (Negative) Proteinase 3 (PR3) (<1.0) AI Myeloperoxidase Ab (<1.0) AI MARCELO UFH Low Dose 0.1 % Release MARCELO UFH Low Dose 0.5 % Release MARCELO UFH High Dose 100 % Release MARCELO Unfract Heparin (Negative) 07/09/18 07/09/18 07/08/18 Range/Units 06:39 06:39 15:00 WBC 6.9 D (4.5-11.0) 10^3/uL RBC 3.03 L (3.5-6.1) 10^6/uL Hgb 7.9 L (14.0-18.0) g/dL Hct 25.2 L (42.0-52.0) % MCV 83.2 (80.0-105.0) fl MCH 26.1 (25.0-35.0) pg MCHC 31.3 (31.0-37.0) g/dl RDW 17.0 H (11.5-14.5) % Plt Count 16 L* (120.0-450.0) 10^3/uL PT (9.4-12.5) SECONDS INR pCO2 (35-45) mm/Hg pO2 (80-100) mm/Hg HCO3 (21-28) mmol/L ABG pH (7.35-7.45) ABG Total CO2 (22-28) mmol.L ABG O2 Saturation (95-98) % ABG O2 Content (15-23) ML/dl ABG Base Excess (-2.0-3.0) mmol/L ABG Hemoglobin (11.7-17.4) g/dL ABG Carboxyhemoglobin (0.5-1.5) % POC ABG HHb (Measured) (0-5) % ABG Methemoglobin (0.0-3.0) % ABG O2 Capacity (16-24) mL/dl Hgb O2 Saturation (95.0-98.0) % FiO2 % Sodium 141 (132-148) mmol/L Potassium 4.6 (3.6-5.0) mmol/L Chloride 104 (98-107) mmol/L Carbon Dioxide 23 (21-33) mmol/L Anion Gap 18 (10-20) BUN 137 H* (7-21) mg/dL Creatinine 5.1 H (0.8-1.5) mg/dl Est GFR ( Amer) 14 Est GFR (Non-Af Amer) 12 POC Glucose (mg/dL) (65-110) mg/dL Random Glucose 347 H* D (70-110) mg/dL Calcium 7.1 L (8.4-10.5) mg/dL Total Bilirubin 0.9 (0.2-1.3) mg/dL AST 137 H D (17-59) U/L ALT 336 H (7-56) U/L Alkaline Phosphatase 70 (38-126) U/L Total Protein 6.2 (5.8-8.3) g/dL Total Protein (PEP) 5.6 L (6.1-8.1) g/dL Albumin 3.1 (3.0-4.8) g/dL Albumin (PEP) 2.9 L (3.8-4.8) g/dL Globulin 3.1 gm/dL Albumin/Globulin Ratio 1.0 L (1.1-1.8) Usdxs-8-Ixgknxecx 0.5 H (0.2-0.3) g/dL Jvikv-4-Tahjekams 0.9 (0.5-0.9) g/dL Blka-3-Getyfqxn 0.4 (0.4-0.6) g/dL Xdlw-2-Uzuqvmcq 0.2 (0.2-0.5) g/dL Gamma Globulins 0.7 L (0.8-1.7) g/dL Abnorm Protein Band 1 TEST NOT PERFORMED Abnorm Protein Band 2 TEST NOT PERFORMED Abnorm Protein Band 3 TEST NOT PERFORMED Procalcitonin (0.19-0.49) NG/ML Urine Color (YELLOW) Urine Appearance (CLEAR) Urine pH (4.7-8.0) Ur Specific [place] (1.005-1.035) Urine Protein (<30 mg/dL) mg/dL Urine Glucose (UA) (NEGATIVE) mg/dL Urine Ketones (NEGATIVE) mg/dL Urine Blood (NEGATIVE) Urine Nitrate (NEGATIVE) Urine Bilirubin (NEGATIVE) Urine Urobilinogen (<1 E.U./dL) E.U./dL Ur Leukocyte Esterase (NEGATIVE) Dani/uL Urine RBC (0-2) /hpf Urine WBC (0-6) /hpf Ur Epithelial Cells (0-5) /hpf Amorphous Sediment (NONE) /hpf Urine Bacteria (NONE) /hpf Fine Granular Casts (NONE) /hpf Coarse Granular Casts (NONE) /hpf RBC Casts (NONE) /hpf Urine Other /hpf Urine Eosinophils YUE & SPEP Interp See note IVONE Nuclear Membr Pat (Negative) Proteinase 3 (PR3) (<1.0) AI Myeloperoxidase Ab (<1.0) AI MARCELO UFH Low Dose 0.1 % Release MARCELO UFH Low Dose 0.5 % Release MARCELO UFH High Dose 100 % Release MARCELO Unfract Heparin (Negative) 07/07/18 07/05/18 Range/Units 12:00 10:30 WBC (4.5-11.0) 10^3/uL RBC (3.5-6.1) 10^6/uL Hgb (14.0-18.0) g/dL Hct (42.0-52.0) % MCV (80.0-105.0) fl MCH (25.0-35.0) pg MCHC (31.0-37.0) g/dl RDW (11.5-14.5) % Plt Count (120.0-450.0) 10^3/uL PT (9.4-12.5) SECONDS INR pCO2 (35-45) mm/Hg pO2 (80-100) mm/Hg HCO3 (21-28) mmol/L ABG pH (7.35-7.45) ABG Total CO2 (22-28) mmol.L ABG O2 Saturation (95-98) % ABG O2 Content (15-23) ML/dl ABG Base Excess (-2.0-3.0) mmol/L ABG Hemoglobin (11.7-17.4) g/dL ABG Carboxyhemoglobin (0.5-1.5) % POC ABG HHb (Measured) (0-5) % ABG Methemoglobin (0.0-3.0) % ABG O2 Capacity (16-24) mL/dl Hgb O2 Saturation (95.0-98.0) % FiO2 % Sodium (132-148) mmol/L Potassium (3.6-5.0) mmol/L Chloride (98-107) mmol/L Carbon Dioxide (21-33) mmol/L Anion Gap (10-20) BUN (7-21) mg/dL Creatinine (0.8-1.5) mg/dl Est GFR ( Amer) Est GFR (Non-Af Amer) POC Glucose (mg/dL) (65-110) mg/dL Random Glucose (70-110) mg/dL Calcium (8.4-10.5) mg/dL Total Bilirubin (0.2-1.3) mg/dL AST (17-59) U/L ALT (7-56) U/L Alkaline Phosphatase (38-126) U/L Total Protein (5.8-8.3) g/dL Total Protein (PEP) (6.1-8.1) g/dL Albumin (3.0-4.8) g/dL Albumin (PEP) (3.8-4.8) g/dL Globulin gm/dL Albumin/Globulin Ratio (1.1-1.8) Ompcy-1-Wgwgmciyt (0.2-0.3) g/dL Umofy-5-Mklojwrki (0.5-0.9) g/dL Ksbo-3-Chqjbhtm (0.4-0.6) g/dL Jial-5-Ztmuocui (0.2-0.5) g/dL Gamma Globulins (0.8-1.7) g/dL Abnorm Protein Band 1 Abnorm Protein Band 2 Abnorm Protein Band 3 Procalcitonin (0.19-0.49) NG/ML Urine Color (YELLOW) Urine Appearance (CLEAR) Urine pH (4.7-8.0) Ur Specific [place] (1.005-1.035) Urine Protein (<30 mg/dL) mg/dL Urine Glucose (UA) (NEGATIVE) mg/dL Urine Ketones (NEGATIVE) mg/dL Urine Blood (NEGATIVE) Urine Nitrate (NEGATIVE) Urine Bilirubin (NEGATIVE) Urine Urobilinogen (<1 E.U./dL) E.U./dL Ur Leukocyte Esterase (NEGATIVE) Dani/uL Urine RBC (0-2) /hpf Urine WBC (0-6) /hpf Ur Epithelial Cells (0-5) /hpf Amorphous Sediment (NONE) /hpf Urine Bacteria (NONE) /hpf Fine Granular Casts (NONE) /hpf Coarse Granular Casts (NONE) /hpf RBC Casts (NONE) /hpf Urine Other /hpf Urine Eosinophils YUE & SPEP Interp IVONE Nuclear Membr Pat Negative (Negative) Proteinase 3 (PR3) <1.0 (<1.0) AI Myeloperoxidase Ab <1.0 (<1.0) AI MARCELO UFH Low Dose 0.1 0 % Release MARCELO UFH Low Dose 0.5 0 % Release MARCELO UFH High Dose 100 0 % Release MARCELO Unfract Heparin Negative (Negative) Laboratory Results - last 24 hr 07/05/18 07/07/18 07/08/18 10:30 12:00 15:00 WBC RBC Hgb Hct MCV MCH MCHC RDW Plt Count PT INR pCO2 pO2 HCO3 ABG pH ABG Total CO2 ABG O2 Saturation ABG O2 Content ABG Base Excess ABG Hemoglobin ABG Carboxyhemoglobin POC ABG HHb (Measured) ABG Methemoglobin ABG O2 Capacity Hgb O2 Saturation FiO2 Sodium Potassium Chloride Carbon Dioxide Anion Gap BUN Creatinine Est GFR ( Amer) Est GFR (Non-Af Amer) POC Glucose (mg/dL) Random Glucose Calcium Total Bilirubin AST ALT Alkaline Phosphatase Total Protein Total Protein (PEP) 5.6 L Albumin Albumin (PEP) 2.9 L Globulin Albumin/Globulin Ratio Auncx-4-Dzatuhxpv 0.5 H Mhtnr-3-Wjvvxppzi 0.9 Oflt-0-Jlvvogtq 0.4 Bpjx-5-Jdhgubph 0.2 Gamma Globulins 0.7 L Abnorm Protein Band 1 TEST NOT PERFORMED Abnorm Protein Band 2 TEST NOT PERFORMED Abnorm Protein Band 3 TEST NOT PERFORMED Procalcitonin Urine Color Urine Appearance Urine pH Ur Specific [place] Urine Protein Urine Glucose (UA) Urine Ketones Urine Blood Urine Nitrate Urine Bilirubin Urine Urobilinogen Ur Leukocyte Esterase Urine RBC Urine WBC Ur Epithelial Cells Amorphous Sediment Urine Bacteria Fine Granular Casts Coarse Granular Casts RBC Casts Urine Other Urine Eosinophils YUE & SPEP Interp See note IVONE Nuclear Membr Pat Negative Proteinase 3 (PR3) <1.0 Myeloperoxidase Ab <1.0 MARCELO UFH Low Dose 0.1 0 MARCELO UFH Low Dose 0.5 0 MARCELO UFH High Dose 100 0 MARCELO Unfract Heparin Negative 07/09/18 07/09/18 07/09/18 06:39 06:39 07:39 WBC 6.9 D RBC 3.03 L Hgb 7.9 L Hct 25.2 L MCV 83.2 MCH 26.1 MCHC 31.3 RDW 17.0 H Plt Count 16 L* PT INR pCO2 pO2 HCO3 ABG pH ABG Total CO2 ABG O2 Saturation ABG O2 Content ABG Base Excess ABG Hemoglobin ABG Carboxyhemoglobin POC ABG HHb (Measured) ABG Methemoglobin ABG O2 Capacity Hgb O2 Saturation FiO2 Sodium 141 Potassium 4.6 Chloride 104 Carbon Dioxide 23 Anion Gap 18 BUN 137 H* Creatinine 5.1 H Est GFR ( Amer) 14 Est GFR (Non-Af Amer) 12 POC Glucose (mg/dL) 335 H Random Glucose 347 H* D Calcium 7.1 L Total Bilirubin 0.9 AST 137 H D ALT 336 H Alkaline Phosphatase 70 Total Protein 6.2 Total Protein (PEP) Albumin 3.1 Albumin (PEP) Globulin 3.1 Albumin/Globulin Ratio 1.0 L Pkvql-1-Nisqawrxb Pweqe-6-Orikpbjrh Xisy-4-Myestmvy Utin-7-Llhjowhz Gamma Globulins Abnorm Protein Band 1 Abnorm Protein Band 2 Abnorm Protein Band 3 Procalcitonin Urine Color Urine Appearance Urine pH Ur Specific [place] Urine Protein Urine Glucose (UA) Urine Ketones Urine Blood Urine Nitrate Urine Bilirubin Urine Urobilinogen Ur Leukocyte Esterase Urine RBC Urine WBC Ur Epithelial Cells Amorphous Sediment Urine Bacteria Fine Granular Casts Coarse Granular Casts RBC Casts Urine Other Urine Eosinophils YUE & SPEP Interp IVONE Nuclear Membr Pat Proteinase 3 (PR3) Myeloperoxidase Ab MARCELO UFH Low Dose 0.1 MARCELO UFH Low Dose 0.5 MARCELO UFH High Dose 100 MARCELO Unfract Heparin 07/09/18 07/09/18 07/09/18 09:15 11:11 13:20 WBC RBC Hgb Hct MCV MCH MCHC RDW Plt Count PT 13.8 H INR 1.20 pCO2 pO2 HCO3 ABG pH ABG Total CO2 ABG O2 Saturation ABG O2 Content ABG Base Excess ABG Hemoglobin ABG Carboxyhemoglobin POC ABG HHb (Measured) ABG Methemoglobin ABG O2 Capacity Hgb O2 Saturation FiO2 Sodium Potassium Chloride Carbon Dioxide Anion Gap BUN Creatinine Est GFR ( Amer) Est GFR (Non-Af Amer) POC Glucose (mg/dL) 328 H Random Glucose Calcium Total Bilirubin AST ALT Alkaline Phosphatase Total Protein Total Protein (PEP) Albumin Albumin (PEP) Globulin Albumin/Globulin Ratio Khpqm-2-Sgdoeljds Uzmuo-3-Nxlzzzamh Djeg-7-Mfzmhqqw Cowl-2-Nrxuezsr Gamma Globulins Abnorm Protein Band 1 Abnorm Protein Band 2 Abnorm Protein Band 3 Procalcitonin 5.96 H Urine Color Urine Appearance Urine pH Ur Specific [place] Urine Protein Urine Glucose (UA) Urine Ketones Urine Blood Urine Nitrate Urine Bilirubin Urine Urobilinogen Ur Leukocyte Esterase Urine RBC Urine WBC Ur Epithelial Cells Amorphous Sediment Urine Bacteria Fine Granular Casts Coarse Granular Casts RBC Casts Urine Other Urine Eosinophils YUE & SPEP Interp IVONE Nuclear Membr Pat Proteinase 3 (PR3) Myeloperoxidase Ab MARCELO UFH Low Dose 0.1 MARCELO UFH Low Dose 0.5 MARCELO UFH High Dose 100 MARCELO Unfract Heparin 07/09/18 07/09/18 07/09/18 14:22 16:52 20:00 WBC RBC Hgb Hct MCV MCH MCHC RDW Plt Count PT INR pCO2 pO2 HCO3 ABG pH ABG Total CO2 ABG O2 Saturation ABG O2 Content ABG Base Excess ABG Hemoglobin ABG Carboxyhemoglobin POC ABG HHb (Measured) ABG Methemoglobin ABG O2 Capacity Hgb O2 Saturation FiO2 Sodium Potassium Chloride Carbon Dioxide Anion Gap BUN Creatinine Est GFR ( Amer) Est GFR (Non-Af Amer) POC Glucose (mg/dL) 234 H Random Glucose Calcium Total Bilirubin AST ALT Alkaline Phosphatase Total Protein Total Protein (PEP) Albumin Albumin (PEP) Globulin Albumin/Globulin Ratio Vxkbe-6-Ydezujszr Ayxzw-3-Yqkaonqmp Stqw-3-Kkiukkkb Wtod-3-Etcltzdq Gamma Globulins Abnorm Protein Band 1 Abnorm Protein Band 2 Abnorm Protein Band 3 Procalcitonin Urine Color Yellow Urine Appearance Clear Urine pH 6.0 Ur Specific [place] 1.020 Urine Protein 30 H Urine Glucose (UA) Negative Urine Ketones Negative Urine Blood Large H Urine Nitrate Negative Urine Bilirubin Negative Urine Urobilinogen 0.2 Ur Leukocyte Esterase Negative Urine RBC Tntc H Urine WBC 5 - 10 H Ur Epithelial Cells 0 - 2 Amorphous Sediment Small Urine Bacteria Large Fine Granular Casts 0 - 2 Coarse Granular Casts Large RBC Casts 0 - 2 Urine Other Uyeast Urine Eosinophils Negative YUE & SPEP Interp IVONE Nuclear Membr Pat Proteinase 3 (PR3) Myeloperoxidase Ab MARCELO UFH Low Dose 0.1 MARCELO UFH Low Dose 0.5 MARCELO UFH High Dose 100 MARCELO Unfract Heparin 07/09/18 07/10/18 21:16 06:18 WBC RBC Hgb Hct MCV MCH MCHC RDW Plt Count PT INR pCO2 38 pO2 122.0 H HCO3 26.4 ABG pH 7.45 ABG Total CO2 27.6 ABG O2 Saturation 99.5 H ABG O2 Content 10.7 L ABG Base Excess 2.3 ABG Hemoglobin 7.7 L ABG Carboxyhemoglobin 1.9 H POC ABG HHb (Measured) 0.5 ABG Methemoglobin 1.0 ABG O2 Capacity 10.8 L Hgb O2 Saturation 96.6 FiO2 60.0 Sodium Potassium Chloride Carbon Dioxide Anion Gap BUN Creatinine Est GFR ( Amer) Est GFR (Non-Af Amer) POC Glucose (mg/dL) 253 H Random Glucose Calcium Total Bilirubin AST ALT Alkaline Phosphatase Total Protein Total Protein (PEP) Albumin Albumin (PEP) Globulin Albumin/Globulin Ratio Pojld-7-Kqebsppuo Sistc-7-Iaayrfrxm Utps-0-Mpqfybvc Hwwy-9-Opahpuzf Gamma Globulins Abnorm Protein Band 1 Abnorm Protein Band 2 Abnorm Protein Band 3 Procalcitonin Urine Color Urine Appearance Urine pH Ur Specific [place] Urine Protein Urine Glucose (UA) Urine Ketones Urine Blood Urine Nitrate Urine Bilirubin Urine Urobilinogen Ur Leukocyte Esterase Urine RBC Urine WBC Ur Epithelial Cells Amorphous Sediment Urine Bacteria Fine Granular Casts Coarse Granular Casts RBC Casts Urine Other Urine Eosinophils YUE & SPEP Interp IVONE Nuclear Membr Pat Proteinase 3 (PR3) Myeloperoxidase Ab MARCELO UFH Low Dose 0.1 MARCELO UFH Low Dose 0.5 MARCELO UFH High Dose 100 MARCELO Unfract Heparin Radiology Impressions: Radiology Impressions Chest X-Ray 07/09/18 06:00 IMPRESSION: Interval mild improved aeration in the lungs with residual moderate pulmonary venous congestion. Persistent airspace disease in the lower lobes, worse on the left which may represent atelectasis or pneumonia. Stable position of endotracheal and nasogastric tubes. EKG/Cardiology Studies: Cardiology / EKG Studies 07/10/18 06:00 EKG [ELECTROCARDIOGRAM] DAILY Comment: Reason For Exam: Hyperkalemia 07/11/18 06:00 EKG [ELECTROCARDIOGRAM] DAILY Comment: Reason For Exam: Hyperkalemia 07/12/18 06:00 EKG [ELECTROCARDIOGRAM] DAILY Comment: Reason For Exam: Hyperkalemia Fingerstick Blood Sugar Results: 253 Review of Systems - Review of Systems Systems not reviewed;Unavailable: Intubated Review of Systems: 12 point ROS unobtainable due to clinical condition. Critical Care Progress Note - Nutrition Nutrition: Nutrition Category Date Time Status NPO Diet [DIET] Diets 07/06/18 Breakfast Ordered Assessment/Plan - Assessment and Plan (Free Text) Assessment: 62yo male with PMHx of COPD, active smoker 1pk per day, HTN, DM, PVD, presents with ER with 2 day history of fever, chills, associated with cough that is non- productive. Yesterday, patient also developed SOB. Pt denies sick contacts, recent travel, CP, palpitations, CARTY, dizziness. In the ER, patient was noted to be hypoxic at 78%, on 2L NC, subsequently placed on BIPAP. No other constitutional symptoms. Pt was found to have increased work of breathing, RR 35-40, subsequently intubated. Placed on low tidal vol. ventilation. Patient was initially started on heparin drip given elevated troponin, and markedly diminished EF. Hep drip currently held secondary to thrombocytopenia. Initially paralyzed on Nimbex after overbreathing ventilator. Currently in MODS. No fevers overnight. Dobutamine drip decreased to 2.5mcg/kg. Tolerated HD yesterday and plan for HD tomorrow. 1 unit PRBC to be transfused today. Neuro: - AAOx0, on sedation. Plan to discontinue sedation today - pt. responds to painful stimuli - continue to monitor Pulm CAP and Flu A + 07/08/18 ABG shows resp. acidosis 07/08/18 CXR shows improved ARDS 07/09/18 CXR shows improving ARDS on R side 07/09/18 ABG shows P/F ratio 333, exhibiting improved oxygenation and outside ARDS criteria 07/10/18 ABG shows P/F ratio of 203, coming down on FiO2 to 40% 07/10/18 CXR shows improved aeration. - Propofol discontinued this morning, plan to discontinue Fentanyl later and begin Precedex drip - Duonebs seema q6 and PRN q2 - Continue Solumedrol 60mg IV Daily - Abx: Restart Vanc, Merrem 500 BID and Doxycycline per ID - Urine Lg and Strep negative - Procal 4.85, repeat 5.96 - ID eval: Dr. Fernandes - recs appreciated - Pulm consulted - Dr. Burr, recs appreciated - Resp therapy Cardio HFrEF - BNP [id number], although CXR only shows one sided infilatrate - 07/03/18 echo report shows EF 14.2%, mildly dilated LV, systolic function severely impaired, akinetic septum, moderate TR and pulm HTN - Decrease Dobutamine drip to 2.5 mcg for inotropic support per cardiac recs NSTEMI - Trop 0.48, 0.67, 0.67 - Cardiology consulted - Dr. Saxena. Cardiac cath on hold due to persistent thrombocytopenia. Hold Lasix per cardio. Further recs appreciated. - Hold IVF d/t poor EF. - Hold Heparin drip - 07/07/18 EKG showed sinus tach - 07/08/18 EKG shows NSR, no ST or T wave changes, LVH - 07/09/18 EKG shows NSR @ 82 bpm, LVH - 07/10/18 EKG shows NSR @ 82 bpm, LVH, no peaked T waves Chronic Thrombocytopenia, ITP - Has received frequent intermittent transfusions as outpatient per medical record - PLT 26, manual count 39 - HIT Antibody negative - Hem consult placed- Dr. Estevez. 4 unit PLT transfused, most recent yesterday. 25 gm IV gammaglobulin day 4 of 5 today. Plan to run 1000 units of Heparin with HD tomorrow. Further recs appreciated per Dr. Estevez. - F/u CRP, IVONE and ANCA studies - 07/08/18 Peripheral smear shows no atypical cells or immature forms. Mild anisopoikilocytosis. No schistocytes. No PL clumping although markedly reduced. - ESR 45 - Split products >10 but <40 Stable Normocytic Anemia - Hgb 7.4 this AM, no obvious sign of bleed, plan to transfuse 1 unit PRBC today, f/u repeat CBC. GI - NGT in place Uncontrolled DM - Hgb a1c 8.2, accuchecks ACHS - Diabetic education Lipid panel - TG elevated at 172 Shock liver Transaminitis AST /ALT 307/224 > 543/409> 592/570> 717/746> 558/687> 270/476, normal Alk Phos. Hold hepatotoxic drugs Hep panel negative - 07/03/18 RUQ U/S shows hepatosplenomegaly PTX for Ppx Nephro OG on HD - Tolerated first HD 07/07/18 s/p triple lumen catheter in L femoral vein. Replaced in R femoral vein after clot. HD session planned for tomorrow. - Currently holding IVF and Diuretics per cardio. Nephro input appreciated - Strict Is and Os. Output has decreased over last 3 days. - Ash in place. - Nephro consult - recs appreciated HD - Performed with Dr. Mcnamara, session planned for tomorrow MSK - Wound care consulted - Podiatry consulted- Dr. Richardson- recs appreciated- no acute intervention at this time. Has signed off. - OT/PT eval ID - No further fever overnight, Resolved Leukocytosis 9.5 - Rapid influenza A positive > Tamiflu course completed - ID eval: Dr. Fernandes - further recs appreciated for 10 day course of ABx - 1 dose Vanc given 07/05/18 and 07/06/18. Random Vanc 19.1 on 07/07/18. - Sputum cx shows yeast species, blood cx neg after 5 days - GI ppx: PTX - DVT ppx: Hep drip held in light of thrombocytopenia Patient seen, case reviewed, and plan approved by Dr. Sung. Ismael Turner, PGY-1 <Golden Sung - Last Filed: 07/10/18 11:46> CCU Objective - Vital Signs / Intake & Output Vital Signs (Last 4 hours): Vital Signs Temp Pulse BP Pulse Ox 07/10/18 11:00 98.6 F 102 H 138/82 96 07/10/18 10:00 98.4 F 111 H 127/82 98 07/10/18 09:00 97.9 F 89 131/74 98 07/10/18 08:01 127/75 07/10/18 08:00 97.9 F 87 98 Intake and Output (Last 8hrs): Intake & Output 07/09/18 07/10/18 07/10/18 22:59 06:59 14:59 Intake Total 450 1295 Output Total 1800 700 Balance -1350 595 Intake: IV 200 677 Fentanyl 150 dobutamine 87 propofol 240 Blood Product 618 Other 250 Output: Urine 900 700 Urethral (Ash) 900 700 Other 900 Other: # Bowel Movements 2 - Medications Active Medications: Active Medications Generic Name Dose Route Start Last Admin Trade Name Freq PRN Reason Stop Dose Admin Acetaminophen 650 mg 07/08/18 18:18 07/08/18 18:39 Tylenol 650mg/20.3ml Solution Ud PO 650 mg Q6H PRN Administration Fever 101F Albuterol/Ipratropium 3 ml 07/03/18 14:00 07/10/18 07:33 Duoneb 3 Mg/0.5 Mg (3 Ml) Ud IH 3 ml [id number] SEEMA Administration Albuterol/Ipratropium 3 ml 07/03/18 11:04 07/08/18 20:22 Duoneb 3 Mg/0.5 Mg (3 Ml) Ud IH 3 ml Q2H PRN Administration Shortness of Breath Heparin Sodium (Porcine) 2,000 units 07/09/18 18:30 07/09/18 18:35 Heparin IVP 2,000 units ONCE SEEMA Administration Fentanyl Citrate 1,000 mcg in 100 mls @ 10 mls/hr 07/03/18 16:44 07/10/18 04:52 Fentanyl Citrate/Sodium Chloride 1 Mg/100 Ml IV 125 mcg/hr .Q10H PRN 12.5 mls/hr TITRATE PER MD ORDER Administration Protocol 100 MCG/HR Heparin Sodium/Sodium Chloride 25,000 units in 250 mls @ 7.802 mls/hr 07/05/18 01:00 07/05/18 08:58 Heparin 94532 Units/250ml 1/2 Normal Saline IV Not Given .Q24H SEEMA Protocol 8 UNITS/KG/HR Immune Globulin 25 gm/ 250 mls @ 55 mls/hr 07/07/18 14:00 07/10/18 10:12 Miscellaneous IV 07/11/18 14:00 55 mls/hr DAILY SEEMA Administration Dobutamine HCl/Dextrose 500 mg in 250 mls @ 7.314 mls/hr 07/08/18 10:00 07/09/18 11:43 Dobutamine/Dextrose 5% 500mg/250ml IV 7.314 mls/hr .Q24H PRN Administration Cardiac contractility 2.5 MCG/KG/MIN Dexmedetomidine HCl 400 mcg in 100 mls @ 4.876 mls/hr 07/10/18 07:23 07/10/18 09:44 Precedex 400mcg/100ml IV 0.2 mcg/kg/hr .[id number] PRN 4.876 mls/hr Agitation Administration Protocol 0.2 MCG/KG/HR Doxycycline Hyclate 100 mg/ 100 mls @ 100 mls/hr 07/10/18 11:15 Sodium Chloride IVPB Q12 SEEMA Protocol Meropenem/Sodium Chloride 500 mg in 50 mls @ 100 mls/hr 07/10/18 11:15 Merrem Iv 500 Mg/Ns 50 Ml IVPB 07/10/18 11:44 Q12 SEEMA Protocol Propofol 500 mg in 50 mls @ 2.926 mls/hr 07/10/18 11:29 Diprivan IV .[id number] PRN TITRATE PER MD ORDER Protocol 5 MCG/KG/MIN Vancomycin HCl 2 gm/ Sodium 500 mls @ 170 mls/hr 07/10/18 11:37 Chloride IVPB 07/10/18 14:33 ONCE ONE Protocol Insulin Detemir 10 unit 07/09/18 22:00 07/09/18 21:49 Levemir SC 10 unit HS SEEMA Administration Insulin Human Regular 0 units 07/03/18 22:00 07/10/18 08:00 Humulin R Med SC 3 units ACHS SEEMA Administration Protocol Methylprednisolone 60 mg 07/07/18 10:00 07/10/18 09:43 Solu-Medrol IVP 60 mg DAILY SEEMA Administration Pantoprazole Sodium 40 mg 07/03/18 14:15 07/10/18 09:43 Protonix Inj IVP 40 mg DAILY SEEMA Administration - Patient Studies Lab Studies: Microbiology Studies 07/09/18 14:22 Urine Culture - Final Urine No Growth (<1,000 CFU/ML) Lab Studies 07/10/18 07/10/18 07/10/18 Range/Units 07:28 07:20 06:40 WBC (4.5-11.0) 10^3/uL RBC (3.5-6.1) 10^6/uL Hgb (14.0-18.0) g/dL Hct (42.0-52.0) % MCV (80.0-105.0) fl MCH (25.0-35.0) pg MCHC (31.0-37.0) g/dl RDW (11.5-14.5) % Plt Count (120.0-450.0) 10^3/uL Manual Plt Count 39 L* (120-450) K/mm3 pCO2 (35-45) mm/Hg pO2 (80-100) mm/Hg HCO3 (21-28) mmol/L ABG pH (7.35-7.45) ABG Total CO2 (22-28) mmol.L ABG O2 Saturation (95-98) % ABG O2 Content (15-23) ML/dl ABG Base Excess (-2.0-3.0) mmol/L ABG Hemoglobin (11.7-17.4) g/dL ABG Carboxyhemoglobin (0.5-1.5) % POC ABG HHb (Measured) (0-5) % ABG Methemoglobin (0.0-3.0) % ABG O2 Capacity (16-24) mL/dl Hgb O2 Saturation (95.0-98.0) % FiO2 % Sodium 140 (132-148) mmol/L Potassium 4.6 (3.6-5.0) mmol/L Chloride 105 (98-107) mmol/L Carbon Dioxide 26 (21-33) mmol/L Anion Gap 15 (10-20) BUN 128 H* (7-21) mg/dL Creatinine 4.3 H (0.8-1.5) mg/dl Est GFR ( Amer) 17 Est GFR (Non-Af Amer) 14 POC Glucose (mg/dL) 237 H (65-110) mg/dL Random Glucose 226 H (70-110) mg/dL Calcium 7.4 L (8.4-10.5) mg/dL Total Bilirubin 1.0 (0.2-1.3) mg/dL AST 80 H D (17-59) U/L ALT 236 H (7-56) U/L Alkaline Phosphatase 65 (38-126) U/L Total Protein 6.4 (5.8-8.3) g/dL Albumin 3.1 (3.0-4.8) g/dL Albumin (PEP) (3.8-4.8) g/dL Globulin 3.3 gm/dL Albumin/Globulin Ratio 1.0 L (1.1-1.8) Rsudy-2-Kkdceiuuq (0.2-0.3) g/dL Jjukx-3-Tamhokxiw (0.5-0.9) g/dL Umtv-5-Kcyoqary (0.4-0.6) g/dL Uvlo-3-Bokajqly (0.2-0.5) g/dL Gamma Globulins (0.8-1.7) g/dL Abnorm Protein Band 1 Abnorm Protein Band 2 Abnorm Protein Band 3 Procalcitonin (0.19-0.49) NG/ML Urine Color (YELLOW) Urine Appearance (CLEAR) Urine pH (4.7-8.0) Ur Specific [place] (1.005-1.035) Urine Protein (<30 mg/dL) mg/dL Urine Glucose (UA) (NEGATIVE) mg/dL Urine Ketones (NEGATIVE) mg/dL Urine Blood (NEGATIVE) Urine Nitrate (NEGATIVE) Urine Bilirubin (NEGATIVE) Urine Urobilinogen (<1 E.U./dL) E.U./dL Ur Leukocyte Esterase (NEGATIVE) Dani/uL Urine RBC (0-2) /hpf Urine WBC (0-6) /hpf Ur Epithelial Cells (0-5) /hpf Amorphous Sediment (NONE) /hpf Urine Bacteria (NONE) /hpf Fine Granular Casts (NONE) /hpf Coarse Granular Casts (NONE) /hpf RBC Casts (NONE) /hpf Urine Other /hpf Urine Eosinophils YUE & SPEP Interp Proteinase 3 (PR3) (<1.0) AI Myeloperoxidase Ab (<1.0) AI MARCELO UFH Low Dose 0.1 % Release MARCELO UFH Low Dose 0.5 % Release MARCELO UFH High Dose 100 % Release MARCELO Unfract Heparin (Negative) Blood Type Antibody Screen Crossmatch BBK History Checked 07/10/18 07/10/18 07/09/18 Range/Units 06:40 06:18 21:16 WBC 9.5 D (4.5-11.0) 10^3/uL RBC 2.81 L (3.5-6.1) 10^6/uL Hgb 7.4 L (14.0-18.0) g/dL Hct 22.9 L (42.0-52.0) % MCV 81.5 (80.0-105.0) fl MCH 26.3 (25.0-35.0) pg MCHC 32.3 (31.0-37.0) g/dl RDW 16.8 H (11.5-14.5) % Plt Count 26 L* (120.0-450.0) 10^3/uL Manual Plt Count (120-450) K/mm3 pCO2 38 (35-45) mm/Hg pO2 122.0 H (80-100) mm/Hg HCO3 26.4 (21-28) mmol/L ABG pH 7.45 (7.35-7.45) ABG Total CO2 27.6 (22-28) mmol.L ABG O2 Saturation 99.5 H (95-98) % ABG O2 Content 10.7 L (15-23) ML/dl ABG Base Excess 2.3 (-2.0-3.0) mmol/L ABG Hemoglobin 7.7 L (11.7-17.4) g/dL ABG Carboxyhemoglobin 1.9 H (0.5-1.5) % POC ABG HHb (Measured) 0.5 (0-5) % ABG Methemoglobin 1.0 (0.0-3.0) % ABG O2 Capacity 10.8 L (16-24) mL/dl Hgb O2 Saturation 96.6 (95.0-98.0) % FiO2 60.0 % Sodium (132-148) mmol/L Potassium (3.6-5.0) mmol/L Chloride (98-107) mmol/L Carbon Dioxide (21-33) mmol/L Anion Gap (10-20) BUN (7-21) mg/dL Creatinine (0.8-1.5) mg/dl Est GFR ( Amer) Est GFR (Non-Af Amer) POC Glucose (mg/dL) 253 H (65-110) mg/dL Random Glucose (70-110) mg/dL Calcium (8.4-10.5) mg/dL Total Bilirubin (0.2-1.3) mg/dL AST (17-59) U/L ALT (7-56) U/L Alkaline Phosphatase (38-126) U/L Total Protein (5.8-8.3) g/dL Albumin (3.0-4.8) g/dL Albumin (PEP) (3.8-4.8) g/dL Globulin gm/dL Albumin/Globulin Ratio (1.1-1.8) Vdxvq-2-Lvwgixhjs (0.2-0.3) g/dL Mtrjo-3-Larkjbctr (0.5-0.9) g/dL Acoe-7-Ktaujfeg (0.4-0.6) g/dL Rter-9-Gogqialm (0.2-0.5) g/dL Gamma Globulins (0.8-1.7) g/dL Abnorm Protein Band 1 Abnorm Protein Band 2 Abnorm Protein Band 3 Procalcitonin (0.19-0.49) NG/ML Urine Color (YELLOW) Urine Appearance (CLEAR) Urine pH (4.7-8.0) Ur Specific [place] (1.005-1.035) Urine Protein (<30 mg/dL) mg/dL Urine Glucose (UA) (NEGATIVE) mg/dL Urine Ketones (NEGATIVE) mg/dL Urine Blood (NEGATIVE) Urine Nitrate (NEGATIVE) Urine Bilirubin (NEGATIVE) Urine Urobilinogen (<1 E.U./dL) E.U./dL Ur Leukocyte Esterase (NEGATIVE) Dani/uL Urine RBC (0-2) /hpf Urine WBC (0-6) /hpf Ur Epithelial Cells (0-5) /hpf Amorphous Sediment (NONE) /hpf Urine Bacteria (NONE) /hpf Fine Granular Casts (NONE) /hpf Coarse Granular Casts (NONE) /hpf RBC Casts (NONE) /hpf Urine Other /hpf Urine Eosinophils YUE & SPEP Interp Proteinase 3 (PR3) (<1.0) AI Myeloperoxidase Ab (<1.0) AI MARCELO UFH Low Dose 0.1 % Release MARCELO UFH Low Dose 0.5 % Release MARCELO UFH High Dose 100 % Release MARCELO Unfract Heparin (Negative) Blood Type Antibody Screen Crossmatch BBK History Checked 07/09/18 07/09/18 07/09/18 Range/Units 20:00 16:52 14:22 WBC (4.5-11.0) 10^3/uL RBC (3.5-6.1) 10^6/uL Hgb (14.0-18.0) g/dL Hct (42.0-52.0) % MCV (80.0-105.0) fl MCH (25.0-35.0) pg MCHC (31.0-37.0) g/dl RDW (11.5-14.5) % Plt Count (120.0-450.0) 10^3/uL Manual Plt Count (120-450) K/mm3 pCO2 (35-45) mm/Hg pO2 (80-100) mm/Hg HCO3 (21-28) mmol/L ABG pH (7.35-7.45) ABG Total CO2 (22-28) mmol.L ABG O2 Saturation (95-98) % ABG O2 Content (15-23) ML/dl ABG Base Excess (-2.0-3.0) mmol/L ABG Hemoglobin (11.7-17.4) g/dL ABG Carboxyhemoglobin (0.5-1.5) % POC ABG HHb (Measured) (0-5) % ABG Methemoglobin (0.0-3.0) % ABG O2 Capacity (16-24) mL/dl Hgb O2 Saturation (95.0-98.0) % FiO2 % Sodium (132-148) mmol/L Potassium (3.6-5.0) mmol/L Chloride (98-107) mmol/L Carbon Dioxide (21-33) mmol/L Anion Gap (10-20) BUN (7-21) mg/dL Creatinine (0.8-1.5) mg/dl Est GFR ( Amer) Est GFR (Non-Af Amer) POC Glucose (mg/dL) 234 H (65-110) mg/dL Random Glucose (70-110) mg/dL Calcium (8.4-10.5) mg/dL Total Bilirubin (0.2-1.3) mg/dL AST (17-59) U/L ALT (7-56) U/L Alkaline Phosphatase (38-126) U/L Total Protein (5.8-8.3) g/dL Albumin (3.0-4.8) g/dL Albumin (PEP) (3.8-4.8) g/dL Globulin gm/dL Albumin/Globulin Ratio (1.1-1.8) Qmajp-6-Gotbofsza (0.2-0.3) g/dL Gsdix-6-Gwroagxbi (0.5-0.9) g/dL Uqfk-6-Wuwwyhgb (0.4-0.6) g/dL Lboj-4-Jahtrwqg (0.2-0.5) g/dL Gamma Globulins (0.8-1.7) g/dL Abnorm Protein Band 1 Abnorm Protein Band 2 Abnorm Protein Band 3 Procalcitonin (0.19-0.49) NG/ML Urine Color Yellow (YELLOW) Urine Appearance Clear (CLEAR) Urine pH 6.0 (4.7-8.0) Ur Specific [place] 1.020 (1.005-1.035) Urine Protein 30 H (<30 mg/dL) mg/dL Urine Glucose (UA) Negative (NEGATIVE) mg/dL Urine Ketones Negative (NEGATIVE) mg/dL Urine Blood Large H (NEGATIVE) Urine Nitrate Negative (NEGATIVE) Urine Bilirubin Negative (NEGATIVE) Urine Urobilinogen 0.2 (<1 E.U./dL) E.U./dL Ur Leukocyte Esterase Negative (NEGATIVE) Dani/uL Urine RBC Tntc H (0-2) /hpf Urine WBC 5 - 10 H (0-6) /hpf Ur Epithelial Cells 0 - 2 (0-5) /hpf Amorphous Sediment Small (NONE) /hpf Urine Bacteria Large (NONE) /hpf Fine Granular Casts 0 - 2 (NONE) /hpf Coarse Granular Casts Large (NONE) /hpf RBC Casts 0 - 2 (NONE) /hpf Urine Other Uyeast /hpf Urine Eosinophils Negative YUE & SPEP Interp Proteinase 3 (PR3) (<1.0) AI Myeloperoxidase Ab (<1.0) AI MARCELO UFH Low Dose 0.1 % Release MARCELO UFH Low Dose 0.5 % Release MARCELO UFH High Dose 100 % Release MARCELO Unfract Heparin (Negative) Blood Type Antibody Screen Crossmatch BBK History Checked 07/09/18 07/09/18 07/09/18 Range/Units 13:20 11:11 07:39 WBC (4.5-11.0) 10^3/uL RBC (3.5-6.1) 10^6/uL Hgb (14.0-18.0) g/dL Hct (42.0-52.0) % MCV (80.0-105.0) fl MCH (25.0-35.0) pg MCHC (31.0-37.0) g/dl RDW (11.5-14.5) % Plt Count (120.0-450.0) 10^3/uL Manual Plt Count (120-450) K/mm3 pCO2 (35-45) mm/Hg pO2 (80-100) mm/Hg HCO3 (21-28) mmol/L ABG pH (7.35-7.45) ABG Total CO2 (22-28) mmol.L ABG O2 Saturation (95-98) % ABG O2 Content (15-23) ML/dl ABG Base Excess (-2.0-3.0) mmol/L ABG Hemoglobin (11.7-17.4) g/dL ABG Carboxyhemoglobin (0.5-1.5) % POC ABG HHb (Measured) (0-5) % ABG Methemoglobin (0.0-3.0) % ABG O2 Capacity (16-24) mL/dl Hgb O2 Saturation (95.0-98.0) % FiO2 % Sodium (132-148) mmol/L Potassium (3.6-5.0) mmol/L Chloride (98-107) mmol/L Carbon Dioxide (21-33) mmol/L Anion Gap (10-20) BUN (7-21) mg/dL Creatinine (0.8-1.5) mg/dl Est GFR ( Amer) Est GFR (Non-Af Amer) POC Glucose (mg/dL) 328 H 335 H (65-110) mg/dL Random Glucose (70-110) mg/dL Calcium (8.4-10.5) mg/dL Total Bilirubin (0.2-1.3) mg/dL AST (17-59) U/L ALT (7-56) U/L Alkaline Phosphatase (38-126) U/L Total Protein (5.8-8.3) g/dL Albumin (3.0-4.8) g/dL Albumin (PEP) (3.8-4.8) g/dL Globulin gm/dL Albumin/Globulin Ratio (1.1-1.8) Aimdi-0-Gkyumuzgw (0.2-0.3) g/dL Ljyig-1-Yzwrnjftc (0.5-0.9) g/dL Vfwf-5-Ewiqazft (0.4-0.6) g/dL Olsu-9-Fjzagbim (0.2-0.5) g/dL Gamma Globulins (0.8-1.7) g/dL Abnorm Protein Band 1 Abnorm Protein Band 2 Abnorm Protein Band 3 Procalcitonin 5.96 H (0.19-0.49) NG/ML Urine Color (YELLOW) Urine Appearance (CLEAR) Urine pH (4.7-8.0) Ur Specific [place] (1.005-1.035) Urine Protein (<30 mg/dL) mg/dL Urine Glucose (UA) (NEGATIVE) mg/dL Urine Ketones (NEGATIVE) mg/dL Urine Blood (NEGATIVE) Urine Nitrate (NEGATIVE) Urine Bilirubin (NEGATIVE) Urine Urobilinogen (<1 E.U./dL) E.U./dL Ur Leukocyte Esterase (NEGATIVE) Dani/uL Urine RBC (0-2) /hpf Urine WBC (0-6) /hpf Ur Epithelial Cells (0-5) /hpf Amorphous Sediment (NONE) /hpf Urine Bacteria (NONE) /hpf Fine Granular Casts (NONE) /hpf Coarse Granular Casts (NONE) /hpf RBC Casts (NONE) /hpf Urine Other /hpf Urine Eosinophils YUE & SPEP Interp Proteinase 3 (PR3) (<1.0) AI Myeloperoxidase Ab (<1.0) AI MARCELO UFH Low Dose 0.1 % Release MARCELO UFH Low Dose 0.5 % Release MARCELO UFH High Dose 100 % Release MARCELO Unfract Heparin (Negative) Blood Type Antibody Screen Crossmatch BBK History Checked 07/08/18 07/08/18 07/07/18 Range/Units 15:00 14:30 12:00 WBC (4.5-11.0) 10^3/uL RBC (3.5-6.1) 10^6/uL Hgb (14.0-18.0) g/dL Hct (42.0-52.0) % MCV (80.0-105.0) fl MCH (25.0-35.0) pg MCHC (31.0-37.0) g/dl RDW (11.5-14.5) % Plt Count (120.0-450.0) 10^3/uL Manual Plt Count (120-450) K/mm3 pCO2 (35-45) mm/Hg pO2 (80-100) mm/Hg HCO3 (21-28) mmol/L ABG pH (7.35-7.45) ABG Total CO2 (22-28) mmol.L ABG O2 Saturation (95-98) % ABG O2 Content (15-23) ML/dl ABG Base Excess (-2.0-3.0) mmol/L ABG Hemoglobin (11.7-17.4) g/dL ABG Carboxyhemoglobin (0.5-1.5) % POC ABG HHb (Measured) (0-5) % ABG Methemoglobin (0.0-3.0) % ABG O2 Capacity (16-24) mL/dl Hgb O2 Saturation (95.0-98.0) % FiO2 % Sodium (132-148) mmol/L Potassium (3.6-5.0) mmol/L Chloride (98-107) mmol/L Carbon Dioxide (21-33) mmol/L Anion Gap (10-20) BUN (7-21) mg/dL Creatinine (0.8-1.5) mg/dl Est GFR ( Amer) Est GFR (Non-Af Amer) POC Glucose (mg/dL) (65-110) mg/dL Random Glucose (70-110) mg/dL Calcium (8.4-10.5) mg/dL Total Bilirubin (0.2-1.3) mg/dL AST (17-59) U/L ALT (7-56) U/L Alkaline Phosphatase (38-126) U/L Total Protein (5.8-8.3) g/dL Albumin (3.0-4.8) g/dL Albumin (PEP) 2.9 L (3.8-4.8) g/dL Globulin gm/dL Albumin/Globulin Ratio (1.1-1.8) Pvbvi-3-Txthrbwwd 0.5 H (0.2-0.3) g/dL Gtdjx-3-Nlgghtyvm 0.9 (0.5-0.9) g/dL Fmue-1-Wsaycbkp 0.4 (0.4-0.6) g/dL Pwfc-5-Nldopoot 0.2 (0.2-0.5) g/dL Gamma Globulins 0.7 L (0.8-1.7) g/dL Abnorm Protein Band 1 TEST NOT PERFORMED Abnorm Protein Band 2 TEST NOT PERFORMED Abnorm Protein Band 3 TEST NOT PERFORMED Procalcitonin (0.19-0.49) NG/ML Urine Color (YELLOW) Urine Appearance (CLEAR) Urine pH (4.7-8.0) Ur Specific [place] (1.005-1.035) Urine Protein (<30 mg/dL) mg/dL Urine Glucose (UA) (NEGATIVE) mg/dL Urine Ketones (NEGATIVE) mg/dL Urine Blood (NEGATIVE) Urine Nitrate (NEGATIVE) Urine Bilirubin (NEGATIVE) Urine Urobilinogen (<1 E.U./dL) E.U./dL Ur Leukocyte Esterase (NEGATIVE) Dani/uL Urine RBC (0-2) /hpf Urine WBC (0-6) /hpf Ur Epithelial Cells (0-5) /hpf Amorphous Sediment (NONE) /hpf Urine Bacteria (NONE) /hpf Fine Granular Casts (NONE) /hpf Coarse Granular Casts (NONE) /hpf RBC Casts (NONE) /hpf Urine Other /hpf Urine Eosinophils YUE & SPEP Interp See note Proteinase 3 (PR3) <1.0 (<1.0) AI Myeloperoxidase Ab <1.0 (<1.0) AI MARCELO UFH Low Dose 0.1 % Release MARCELO UFH Low Dose 0.5 % Release MARCELO UFH High Dose 100 % Release MARCELO Unfract Heparin (Negative) Blood Type O POSITIVE Antibody Screen Negative Crossmatch See Detail BBK History Checked Patient has bt 07/05/18 Range/Units 10:30 WBC (4.5-11.0) 10^3/uL RBC (3.5-6.1) 10^6/uL Hgb (14.0-18.0) g/dL Hct (42.0-52.0) % MCV (80.0-105.0) fl MCH (25.0-35.0) pg MCHC (31.0-37.0) g/dl RDW (11.5-14.5) % Plt Count (120.0-450.0) 10^3/uL Manual Plt Count (120-450) K/mm3 pCO2 (35-45) mm/Hg pO2 (80-100) mm/Hg HCO3 (21-28) mmol/L ABG pH (7.35-7.45) ABG Total CO2 (22-28) mmol.L ABG O2 Saturation (95-98) % ABG O2 Content (15-23) ML/dl ABG Base Excess (-2.0-3.0) mmol/L ABG Hemoglobin (11.7-17.4) g/dL ABG Carboxyhemoglobin (0.5-1.5) % POC ABG HHb (Measured) (0-5) % ABG Methemoglobin (0.0-3.0) % ABG O2 Capacity (16-24) mL/dl Hgb O2 Saturation (95.0-98.0) % FiO2 % Sodium (132-148) mmol/L Potassium (3.6-5.0) mmol/L Chloride (98-107) mmol/L Carbon Dioxide (21-33) mmol/L Anion Gap (10-20) BUN (7-21) mg/dL Creatinine (0.8-1.5) mg/dl Est GFR ( Amer) Est GFR (Non-Af Amer) POC Glucose (mg/dL) (65-110) mg/dL Random Glucose (70-110) mg/dL Calcium (8.4-10.5) mg/dL Total Bilirubin (0.2-1.3) mg/dL AST (17-59) U/L ALT (7-56) U/L Alkaline Phosphatase (38-126) U/L Total Protein (5.8-8.3) g/dL Albumin (3.0-4.8) g/dL Albumin (PEP) (3.8-4.8) g/dL Globulin gm/dL Albumin/Globulin Ratio (1.1-1.8) Funrd-2-Husnijnuq (0.2-0.3) g/dL Jixsk-0-Mwahhezxi (0.5-0.9) g/dL Tpfm-6-Vxkjnogp (0.4-0.6) g/dL Krtx-6-Phhouzlt (0.2-0.5) g/dL Gamma Globulins (0.8-1.7) g/dL Abnorm Protein Band 1 Abnorm Protein Band 2 Abnorm Protein Band 3 Procalcitonin (0.19-0.49) NG/ML Urine Color (YELLOW) Urine Appearance (CLEAR) Urine pH (4.7-8.0) Ur Specific [place] (1.005-1.035) Urine Protein (<30 mg/dL) mg/dL Urine Glucose (UA) (NEGATIVE) mg/dL Urine Ketones (NEGATIVE) mg/dL Urine Blood (NEGATIVE) Urine Nitrate (NEGATIVE) Urine Bilirubin (NEGATIVE) Urine Urobilinogen (<1 E.U./dL) E.U./dL Ur Leukocyte Esterase (NEGATIVE) Dani/uL Urine RBC (0-2) /hpf Urine WBC (0-6) /hpf Ur Epithelial Cells (0-5) /hpf Amorphous Sediment (NONE) /hpf Urine Bacteria (NONE) /hpf Fine Granular Casts (NONE) /hpf Coarse Granular Casts (NONE) /hpf RBC Casts (NONE) /hpf Urine Other /hpf Urine Eosinophils YUE & SPEP Interp Proteinase 3 (PR3) (<1.0) AI Myeloperoxidase Ab (<1.0) AI MARCELO UFH Low Dose 0.1 0 % Release MARCELO UFH Low Dose 0.5 0 % Release MARCELO UFH High Dose 100 0 % Release MARCELO Unfract Heparin Negative (Negative) Blood Type Antibody Screen Crossmatch BBK History Checked Laboratory Results - last 24 hr 07/05/18 07/07/18 07/08/18 10:30 12:00 14:30 WBC RBC Hgb Hct MCV MCH MCHC RDW Plt Count Manual Plt Count pCO2 pO2 HCO3 ABG pH ABG Total CO2 ABG O2 Saturation ABG O2 Content ABG Base Excess ABG Hemoglobin ABG Carboxyhemoglobin POC ABG HHb (Measured) ABG Methemoglobin ABG O2 Capacity Hgb O2 Saturation FiO2 Sodium Potassium Chloride Carbon Dioxide Anion Gap BUN Creatinine Est GFR ( Amer) Est GFR (Non-Af Amer) POC Glucose (mg/dL) Random Glucose Calcium Total Bilirubin AST ALT Alkaline Phosphatase Total Protein Albumin Albumin (PEP) Globulin Albumin/Globulin Ratio Dzzsu-2-Xrtwswvpw Blrua-4-Mumpkfdgr Umcj-1-Qhxqlrgd Wjza-7-Bwksjxob Gamma Globulins Abnorm Protein Band 1 Abnorm Protein Band 2 Abnorm Protein Band 3 Procalcitonin Urine Color Urine Appearance Urine pH Ur Specific [place] Urine Protein Urine Glucose (UA) Urine Ketones Urine Blood Urine Nitrate Urine Bilirubin Urine Urobilinogen Ur Leukocyte Esterase Urine RBC Urine WBC Ur Epithelial Cells Amorphous Sediment Urine Bacteria Fine Granular Casts Coarse Granular Casts RBC Casts Urine Other Urine Eosinophils YUE & SPEP Interp Proteinase 3 (PR3) <1.0 Myeloperoxidase Ab <1.0 MARCELO UFH Low Dose 0.1 0 MARCELO UFH Low Dose 0.5 0 MARCELO UFH High Dose 100 0 MARCELO Unfract Heparin Negative Blood Type O POSITIVE Antibody Screen Negative Crossmatch See Detail BBK History Checked Patient has bt 07/08/18 07/09/18 07/09/18 15:00 07:39 11:11 WBC RBC Hgb Hct MCV MCH MCHC RDW Plt Count Manual Plt Count pCO2 pO2 HCO3 ABG pH ABG Total CO2 ABG O2 Saturation ABG O2 Content ABG Base Excess ABG Hemoglobin ABG Carboxyhemoglobin POC ABG HHb (Measured) ABG Methemoglobin ABG O2 Capacity Hgb O2 Saturation FiO2 Sodium Potassium Chloride Carbon Dioxide Anion Gap BUN Creatinine Est GFR ( Amer) Est GFR (Non-Af Amer) POC Glucose (mg/dL) 335 H 328 H Random Glucose Calcium Total Bilirubin AST ALT Alkaline Phosphatase Total Protein Albumin Albumin (PEP) 2.9 L Globulin Albumin/Globulin Ratio Wsbnt-3-Dgsbhjgbn 0.5 H Ilruc-0-Mjjsnswbf 0.9 Zunv-2-Xloxezsc 0.4 Vjmo-8-Qfloblri 0.2 Gamma Globulins 0.7 L Abnorm Protein Band 1 TEST NOT PERFORMED Abnorm Protein Band 2 TEST NOT PERFORMED Abnorm Protein Band 3 TEST NOT PERFORMED Procalcitonin Urine Color Urine Appearance Urine pH Ur Specific [place] Urine Protein Urine Glucose (UA) Urine Ketones Urine Blood Urine Nitrate Urine Bilirubin Urine Urobilinogen Ur Leukocyte Esterase Urine RBC Urine WBC Ur Epithelial Cells Amorphous Sediment Urine Bacteria Fine Granular Casts Coarse Granular Casts RBC Casts Urine Other Urine Eosinophils YUE & SPEP Interp See note Proteinase 3 (PR3) Myeloperoxidase Ab MARCELO UFH Low Dose 0.1 MARCELO UFH Low Dose 0.5 MARCELO UFH High Dose 100 MARCELO Unfract Heparin Blood Type Antibody Screen Crossmatch BBK History Checked 07/09/18 07/09/18 07/09/18 13:20 14:22 16:52 WBC RBC Hgb Hct MCV MCH MCHC RDW Plt Count Manual Plt Count pCO2 pO2 HCO3 ABG pH ABG Total CO2 ABG O2 Saturation ABG O2 Content ABG Base Excess ABG Hemoglobin ABG Carboxyhemoglobin POC ABG HHb (Measured) ABG Methemoglobin ABG O2 Capacity Hgb O2 Saturation FiO2 Sodium Potassium Chloride Carbon Dioxide Anion Gap BUN Creatinine Est GFR ( Amer) Est GFR (Non-Af Amer) POC Glucose (mg/dL) 234 H Random Glucose Calcium Total Bilirubin AST ALT Alkaline Phosphatase Total Protein Albumin Albumin (PEP) Globulin Albumin/Globulin Ratio Pafmm-7-Gekgdxabl Lhpar-9-Jxwopgjhb Bkpq-2-Maapmhzn Hgrj-0-Xpdubxjt Gamma Globulins Abnorm Protein Band 1 Abnorm Protein Band 2 Abnorm Protein Band 3 Procalcitonin 5.96 H Urine Color Yellow Urine Appearance Clear Urine pH 6.0 Ur Specific [place] 1.020 Urine Protein 30 H Urine Glucose (UA) Negative Urine Ketones Negative Urine Blood Large H Urine Nitrate Negative Urine Bilirubin Negative Urine Urobilinogen 0.2 Ur Leukocyte Esterase Negative Urine RBC Tntc H Urine WBC 5 - 10 H Ur Epithelial Cells 0 - 2 Amorphous Sediment Small Urine Bacteria Large Fine Granular Casts 0 - 2 Coarse Granular Casts Large RBC Casts 0 - 2 Urine Other Uyeast Urine Eosinophils YUE & SPEP Interp Proteinase 3 (PR3) Myeloperoxidase Ab MARCELO UFH Low Dose 0.1 MARCELO UFH Low Dose 0.5 MARCELO UFH High Dose 100 MARCELO Unfract Heparin Blood Type Antibody Screen Crossmatch BBK History Checked 07/09/18 07/09/18 07/10/18 20:00 21:16 06:18 WBC RBC Hgb Hct MCV MCH MCHC RDW Plt Count Manual Plt Count pCO2 38 pO2 122.0 H HCO3 26.4 ABG pH 7.45 ABG Total CO2 27.6 ABG O2 Saturation 99.5 H ABG O2 Content 10.7 L ABG Base Excess 2.3 ABG Hemoglobin 7.7 L ABG Carboxyhemoglobin 1.9 H POC ABG HHb (Measured) 0.5 ABG Methemoglobin 1.0 ABG O2 Capacity 10.8 L Hgb O2 Saturation 96.6 FiO2 60.0 Sodium Potassium Chloride Carbon Dioxide Anion Gap BUN Creatinine Est GFR ( Amer) Est GFR (Non-Af Amer) POC Glucose (mg/dL) 253 H Random Glucose Calcium Total Bilirubin AST ALT Alkaline Phosphatase Total Protein Albumin Albumin (PEP) Globulin Albumin/Globulin Ratio Breyu-6-Wwkdbmolf Dscgm-1-Venrolnxv Jrnq-6-Mzlipxbp Tiee-7-Yfrgouen Gamma Globulins Abnorm Protein Band 1 Abnorm Protein Band 2 Abnorm Protein Band 3 Procalcitonin Urine Color Urine Appearance Urine pH Ur Specific [place] Urine Protein Urine Glucose (UA) Urine Ketones Urine Blood Urine Nitrate Urine Bilirubin Urine Urobilinogen Ur Leukocyte Esterase Urine RBC Urine WBC Ur Epithelial Cells Amorphous Sediment Urine Bacteria Fine Granular Casts Coarse Granular Casts RBC Casts Urine Other Urine Eosinophils Negative YUE & SPEP Interp Proteinase 3 (PR3) Myeloperoxidase Ab MARCELO UFH Low Dose 0.1 MARCELO UFH Low Dose 0.5 MARCELO UFH High Dose 100 MARCELO Unfract Heparin Blood Type Antibody Screen Crossmatch BBK History Checked 07/10/18 07/10/18 07/10/18 06:40 06:40 07:20 WBC 9.5 D RBC 2.81 L Hgb 7.4 L Hct 22.9 L MCV 81.5 MCH 26.3 MCHC 32.3 RDW 16.8 H Plt Count 26 L* Manual Plt Count 39 L* pCO2 pO2 HCO3 ABG pH ABG Total CO2 ABG O2 Saturation ABG O2 Content ABG Base Excess ABG Hemoglobin ABG Carboxyhemoglobin POC ABG HHb (Measured) ABG Methemoglobin ABG O2 Capacity Hgb O2 Saturation FiO2 Sodium 140 Potassium 4.6 Chloride 105 Carbon Dioxide 26 Anion Gap 15 BUN 128 H* Creatinine 4.3 H Est GFR ( Amer) 17 Est GFR (Non-Af Amer) 14 POC Glucose (mg/dL) Random Glucose 226 H Calcium 7.4 L Total Bilirubin 1.0 AST 80 H D ALT 236 H Alkaline Phosphatase 65 Total Protein 6.4 Albumin 3.1 Albumin (PEP) Globulin 3.3 Albumin/Globulin Ratio 1.0 L Agsym-6-Fnmbvpdgo Khhwf-3-Pmyuuekpe Ciqt-4-Vgygbwai Jeeq-3-Mdgmlaec Gamma Globulins Abnorm Protein Band 1 Abnorm Protein Band 2 Abnorm Protein Band 3 Procalcitonin Urine Color Urine Appearance Urine pH Ur Specific [place] Urine Protein Urine Glucose (UA) Urine Ketones Urine Blood Urine Nitrate Urine Bilirubin Urine Urobilinogen Ur Leukocyte Esterase Urine RBC Urine WBC Ur Epithelial Cells Amorphous Sediment Urine Bacteria Fine Granular Casts Coarse Granular Casts RBC Casts Urine Other Urine Eosinophils YUE & SPEP Interp Proteinase 3 (PR3) Myeloperoxidase Ab MARCELO UFH Low Dose 0.1 MARCELO UFH Low Dose 0.5 AMRCELO UFH High Dose 100 MARCELO Unfract Heparin Blood Type Antibody Screen Crossmatch BBK History Checked 07/10/18 07:28 WBC RBC Hgb Hct MCV MCH MCHC RDW Plt Count Manual Plt Count pCO2 pO2 HCO3 ABG pH ABG Total CO2 ABG O2 Saturation ABG O2 Content ABG Base Excess ABG Hemoglobin ABG Carboxyhemoglobin POC ABG HHb (Measured) ABG Methemoglobin ABG O2 Capacity Hgb O2 Saturation FiO2 Sodium Potassium Chloride Carbon Dioxide Anion Gap BUN Creatinine Est GFR ( Amer) Est GFR (Non-Af Amer) POC Glucose (mg/dL) 237 H Random Glucose Calcium Total Bilirubin AST ALT Alkaline Phosphatase Total Protein Albumin Albumin (PEP) Globulin Albumin/Globulin Ratio Mrtnh-5-Xrpacjnqg Jbjkg-3-Zbznselua Nkay-8-Uqqrrenl Ohzd-0-Ofjhukzg Gamma Globulins Abnorm Protein Band 1 Abnorm Protein Band 2 Abnorm Protein Band 3 Procalcitonin Urine Color Urine Appearance Urine pH Ur Specific [place] Urine Protein Urine Glucose (UA) Urine Ketones Urine Blood Urine Nitrate Urine Bilirubin Urine Urobilinogen Ur Leukocyte Esterase Urine RBC Urine WBC Ur Epithelial Cells Amorphous Sediment Urine Bacteria Fine Granular Casts Coarse Granular Casts RBC Casts Urine Other Urine Eosinophils YUE & SPEP Interp Proteinase 3 (PR3) Myeloperoxidase Ab MARCELO UFH Low Dose 0.1 MARCELO UFH Low Dose 0.5 MARCELO UFH High Dose 100 MARCELO Unfract Heparin Blood Type Antibody Screen Crossmatch BBK History Checked Radiology Impressions: Radiology Impressions Chest X-Ray 07/10/18 06:00 IMPRESSION: No active disease. EKG/Cardiology Studies: Cardiology / EKG Studies 07/10/18 06:00 EKG [ELECTROCARDIOGRAM] DAILY Comment: Reason For Exam: Hyperkalemia 07/11/18 06:00 EKG [ELECTROCARDIOGRAM] DAILY Comment: Reason For Exam: Hyperkalemia 07/12/18 06:00 EKG [ELECTROCARDIOGRAM] DAILY Comment: Reason For Exam: Hyperkalemia Critical Care Progress Note - Nutrition Nutrition: Nutrition Category Date Time Status NPO Diet [DIET] Diets 07/06/18 Breakfast Ordered Assessment/Plan - Assessment and Plan (Free Text) Assessment: Patient seen and examined on rounds, with resident, agree with note with following additions/exceptions: Patient is 62yo male with PMhx of COPD, active smoker 2pks per day, HTN, DM, PVD, admitted for hypoxic respiratory failure, 2/2 Influenza PNA, and superimposed bacterial PNA. Pt is currently intubated, not on Vasopressor support, on PRVC FiO2 40%, PEEP 10; Nimbex shut off yesterday after 48hours. Pt's CXR with IMPROVED Aeration of upper lung miguel, ARDS. ABG with improved P/F ratio, currently >200 Weaning trial began today after sedation turned off Patient opens eyes, tracks, but does not follow commands, or respond to painful stimuli. Will obtain STAT CT head without contrast Pt's with chronic thrombocytopenia, no clinical evidence of overt bleeding Receiving IVIG HD as per renal, K normal today PNA ARDS FLU MODS Renal failure, s/p HD Thrombocytopenia rule out ITP/TTP COPD HTN PVD DM AMS Recommend: - cont with vent support, low tidal vol ventilation, high PEEP, 10, daily ABG, CXR, weaning Trial - Conservative fluid management - Abx as per ID, Vanco renally dosed, Merrem - BP control - HD as per renal - monitor LFTs - FS control, Start Levemir 20u QHS; may need insulin drip if no improvement - I/Os - IVIG as per heme onc - cont with Dobutamine - will likely need cardiac cath once more stable - CT head without contrast - follow up cardio - GI ppx - DVT ppx - Monitor in MICU Critical care time 30 minutes
[2018-07-10 07:18] LABS: PLATELET COUNT 26 10^3/uL (120.0-450.0)
[2018-07-10 07:35] LABS: ALBUMIN 3.1 g/dL (3.0-4.8); CALCIUM 7.4 mg/dL (8.4-10.5)
[2018-07-10] MEDS: Insulin Reg-MEDIUM-Coverage SC SCH ×4 (08:00→21:50)
--- NOTE | 2018-07-10 09:37 | PN ---
DATE: 07/10/2018([id number]) PULMONARY NOTE SUBJECTIVE: The patient remains on the ventilator. He remains sedated. PHYSICAL EXAMINATION: VITAL SIGNS: Temperature is 98.2, pulse 73, respiratory rate 20/20, blood pressure 111/62. HEENT: Normocephalic, atraumatic. No JVD. CARDIOVASCULAR: Systolic ejection murmur at the lower left sternal border. No S3 gallop. LUNGS: Decreased breath sounds at bases. Less rhonchi. No wheezing. GI: Abdomen is soft, nondistended. Bowel sounds are positive. EXTREMITIES: Mild edema. No cyanosis or clubbing. SKIN: No acute rash. NEUROLOGIC: Exam limited at the present time. 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 There appears to be further clearing of the left-sided pulmonary infiltrates. The right lower lobe infiltrate is also diminished. Arterial blood gas was done on PRVC 20, tidal volume 450, FiO2 40%. Results are: PH 7.45, pCO2 38, pO2 of 122. IMPRESSION: 1. Respiratory failure. 2. Bilateral pneumonia. 3. Rule out myocardial infarction. 4. Ischemic dilated cardiomyopathy. 5. Renal failure. 6. Anemia, severe thrombocytopenia. 7. Chronic obstructive pulmonary disease. PLAN: The patient remains on the ventilator and in the ICU. He is again sedated, but no longer paralyzed. I did discuss the case with the night nurse at length. The night nurse stated the patient had a good night. I did review the chest x-ray as above. Findings are noted. The chest x-ray continues to show steady improvement. I have also reviewed the arterial blood gas. The arterial blood gas also continues to improve-- with a decrease in the alveolar-arterial gradient. I did discuss the above with the ICU team this morning. The team will proceed with weaning trials this morning. Inputs by Hematology, Infectious Disease, and Cardiology are also noted. Clinical status of the patient is significantly improved - compared to the initial presentation. He does remain critically ill. Again, I did discuss the above with the ICU team earlier this morning. I will also discuss the above with the attending physician. Balta Burr MD [facility] # [id number] MOE
[2018-07-10] MEDS: MethylPREDNISolone 40 mg Vial IVP SCH (09:43)
[2018-07-10] MEDS: Dexmedetomidine 400mcg/100mL 400 MCG/100 ML BOTTLE IV PRN ×5 (09:44→23:15)
--- NOTE | 2018-07-10 09:46 | RAD ---
Date of service: 07/10/2018 HISTORY: f/u COMPARISON: 07/09/2018 FINDINGS: LUNGS: No active pulmonary disease. PLEURA: No significant pleural effusion identified, no pneumothorax apparent. CARDIOVASCULAR: No aortic atherosclerotic calcification present. Mild cardiomegaly. No pulmonary vascular congestion. OSSEOUS STRUCTURES: No significant abnormalities. VISUALIZED UPPER ABDOMEN: Normal. OTHER FINDINGS: The endotracheal tube and nasogastric tube are in satisfactory position IMPRESSION: No active disease.
--- NOTE | 2018-07-10 09:50 | CARD ---
APPROVED REPORT Date of service: 07/10/2018 EKG Measurement Heart [id number] CT [id number] <Conclusion> Normal sinus rhythm Nonspecific intraventricular conduction delay T wave abnormality, consider inferior ischemia Prolonged QT Abnormal ECG
[2018-07-10] MEDS: IMMUNE GLOBULIN IV SCH (10:12)
[2018-07-10] MEDS: PREMIXED IV SCH (10:12)
--- NOTE | 2018-07-10 10:30 | PN ---
DATE: 07/10/2018 SUBJECTIVE: The patient is in ICU, bed 5. He is intubated and sedated and her review of systems is in effect unobtainable. PHYSICAL EXAMINATION: VITAL SIGNS: Temperature of 98.2, pulse rate of 73, blood pressure 111/62, O2 saturation of 99% with an FIO2 of 40. HEENT: PERRLA. Extraocular muscles are intact. NECK: Supple. No bruits or adenopathy is appreciated. LUNGS: Clear to auscultation and percussion. HEART: With a regular rate and rhythm. ABDOMEN: Benign. NEUROLOGIC: As previously noted, the patient is sedated. Deep tendon reflexes are symmetrical throughout. LABORATORY DATA: WBC of 9.5, hemoglobin and hematocrit 7.4 and 22.9, manual platelet count of 39,000, BUN of 128, creatinine of 4.3, glucose of 226, calcium of 7.4. RECOMMENDATIONS: The patient will be continued on intravenous antibiotics and attempts to wean the patient off the respirator is currently in progress. DIAGNOSES: Currently is, 1. Respiratory failure. 2. Sepsis. 3. Diabetes mellitus. 4. Acute renal failure. Cipriano Martinez MD
[2018-07-10] MEDS ORDERED: MEROPENEM 500 MG in NS 500 MG/50 ML BAG IVPB SCH ×2 (11:15→12:45)
[2018-07-10] MEDS ORDERED: Propofol 10 mg/ml 500 MG/50 ML VIAL IV PRN (11:29)
[2018-07-10] MEDS ORDERED: Vancomycin 2 GM in Sodium Chloride 0.9% 500 ML IVPB ONE (11:37)
--- NOTE | 2018-07-10 12:48 | CP.PCM.PN ---
Subjective - Date & Time of Evaluation Date of Evaluation: 07/10/18 Time of Evaluation: 11:30 - Subjective Subjective: Patient continues to be on the ventilator, not very responsive to painful stimuli, no fevers overnight. Objective - Vital Signs/Intake and Output Vital Signs (last 24 hours): Temp Pulse Resp BP Pulse Ox 98.4 F 81 18 120/63 99 07/09/18 14:26 07/09/18 18:00 07/09/18 14:26 07/09/18 14:15 07/09/18 14:26 Intake and Output: 07/09/18 07/10/18 18:59 06:59 Intake Total 550 100 Output Total 1800 Balance -1250 100 - Medications Medications: Current Medications Acetaminophen (Tylenol 650mg/20.3ml Solution Ud) 650 mg PO Q6H PRN PRN Reason: Fever 101F Last Admin: 07/08/18 18:39 Dose: 650 mg Albuterol/Ipratropium (Duoneb 3 Mg/0.5 Mg (3 Ml) Ud) 3 ml IH [id number] JHON Last Admin: 07/09/18 20:36 Dose: 3 ml Albuterol/Ipratropium (Duoneb 3 Mg/0.5 Mg (3 Ml) Ud) 3 ml IH Q2H PRN PRN Reason: Shortness of Breath Last Admin: 07/08/18 20:22 Dose: 3 ml Heparin Sodium (Porcine) (Heparin) 2,000 units IVP ONCE JHON Last Admin: 07/09/18 18:35 Dose: 2,000 units Propofol (Diprivan) 1,000 mg in 100 mls @ 2.79 mls/hr IV .Q24H PRN; Protocol PRN Reason: TITRATE PER MD ORDER Last Admin: 07/09/18 13:09 Dose: 35 mcg/kg/min, 19.527 mls/hr Fentanyl Citrate (Fentanyl Citrate/Sodium Chloride 1 Mg/100 Ml) 1,000 mcg in 100 mls @ 10 mls/hr IV .Q10H PRN; Protocol PRN Reason: TITRATE PER MD ORDER Last Admin: 07/09/18 20:58 Dose: 125 mcg/hr, 12.5 mls/hr Heparin Sodium/Sodium Chloride (Heparin 82039 Units/250ml 1/2 Normal Saline) 25,000 units in 250 mls @ 7.802 mls/hr IV .Q24H [facility]; Protocol Last Admin: 07/05/18 08:58 Dose: Not Given Immune Globulin 25 gm/ (Miscellaneous) 250 mls @ 55 mls/hr IV DAILY [facility] Last Admin: 07/09/18 11:35 Dose: 55 mls/hr Dobutamine HCl/Dextrose (Dobutamine/Dextrose 5% 500mg/250ml) 500 mg in 250 mls @ 7.314 mls/hr IV .Q24H PRN PRN Reason: Cardiac contractility Last Admin: 07/09/18 11:43 Dose: 7.314 mls/hr Insulin Detemir (Levemir) 10 unit SC [facility] Insulin Human Regular (Humulin R Med) 0 units SC [facility]; Protocol Last Admin: 07/09/18 20:16 Dose: Not Given Methylprednisolone (Solu-Medrol) 60 mg IVP DAILY [facility] Last Admin: 07/09/18 11:34 Dose: 60 mg Pantoprazole Sodium (Protonix Inj) 40 mg IVP DAILY [facility] Last Admin: 07/09/18 11:34 Dose: 40 mg - Labs Labs: 07/09/18 06:39 07/09/18 06:39 PT 13.8 SECONDS (9.4-12.5) H 07/09/18 09:15 INR 1.20 07/09/18 09:15 APTT 18.7 Seconds (25.1-36.5) L 07/06/18 11:54 - Constitutional Appears: Chronically Ill, Other (intubated) - ENT Exam Additional comments: ET tube in place - Respiratory Exam Respiratory Exam: Decreased Breath Sounds - Cardiovascular Exam Cardiovascular Exam: +S1, +S2 - GI/Abdominal Exam GI & Abdominal Exam: Soft. absent: Tenderness Assessment and Plan - Assessment and Plan (Free Text) Plan: Assessment Severe sepsis with hypoxic respiratory failure and ventilator-dependent respiratory failure and acute on chronic renal failure as well as thrombocytopenia due to severe right sided community-acquired pneumonia on top of viral infection with Influenza A significant and active smoking history COPD HTN DM peripheral vascular disease history of right elbow septic arthritis history of right upper extremity cellulitis Plan was off antibiotics but will restart a dose of IV Vancomycin, Merrem and Doxycycline and will repeat blood, sputum cx discussed with ICU team overall prognosis is poor discussed with Dr. Martinez
--- NOTE | 2018-07-10 12:51 | CT ---
Date of service: 07/10/2018 PROCEDURE: CT HEAD WITHOUT CONTRAST. HISTORY: r/o bleed COMPARISON: None available. TECHNIQUE: Axial computed tomography images were obtained through the head/brain without intravenous contrast. Radiation dose: Total exam DLP = 1159.4 mGy-cm. This CT exam was performed using one or more of the following dose reduction techniques: Automated exposure control, adjustment of the mA and/or kV according to patient size, and/or use of iterative reconstruction technique. FINDINGS: HEMORRHAGE: No intracranial hemorrhage. BRAIN: No mass effect or edema. Chronic microvascular changes are seen in the periventricular white matter right greater than left. There are no acute intracranial findings. VENTRICLES: Unremarkable. No hydrocephalus. CALVARIUM: Unremarkable. PARANASAL SINUSES: Unremarkable as visualized. No significant inflammatory changes. MASTOID AIR CELLS: Unremarkable as visualized. No inflammatory changes. OTHER FINDINGS: None. IMPRESSION: No acute findings
[2018-07-10 13:47] LABS: ARTERIAL BLOOD GAS HEMOGLOBIN 8.4 g/dL (11.7-17.4); ARTERIAL BLOOD GAS O2 CAPACITY 11.9 mL/dl (16-24); ARTERIAL BLOOD GAS O2 CONTENT 11.8 ML/dl (15-23); ARTERIAL BLOOD GAS O2 SAT 99.3 % (95-98); ARTERIAL BLOOD GAS PCO2 38 mm/Hg (35-45); ARTERIAL BLOOD GAS PH 7.39 (7.35-7.45); ARTERIAL BLOOD GAS TCO2 24.2 mmol.L (22-28)
--- NOTE | 2018-07-10 14:42 | PN ---
DATE: 07/10/2018 CARDIOLOGY FOLLOWUP SUBJECTIVE: The patient remains sedated on a ventilator. PHYSICAL EXAMINATION: VITAL SIGNS: Blood pressure 131/74 and heart rate in the 80s. NECK: Negative JVD. LUNGS: Decreased breath sounds. HEART: Reveal S1, S2. EXTREMITIES: Without change. LABORATORY DATA: The platelet count is still 26,000 and hemoglobin is 7.4. Chemistries, BUN and creatinine is 128 and 4.3. IMPRESSION: 1. Respiratory failure. 2. End-stage renal disease. 3. Dilated cardiomyopathy. 4. Thrombocytopenia. Given these findings, I agree with holding his sedation. Will make some attempts at weaning the patient off the respirator. Benjamin Saxena MD
--- NOTE | 2018-07-10 15:03 | RAD ---
Date of service: 07/10/2018 HISTORY: SOB COMPARISON: 07/10/2018 FINDINGS: LUNGS: Right-sided perihilar infiltrate PLEURA: No significant pleural effusion identified, no pneumothorax apparent. CARDIOVASCULAR: Aortic calcification Mild cardiomegaly moderate vascular congestion OSSEOUS STRUCTURES: No significant abnormalities. VISUALIZED UPPER ABDOMEN: Normal. OTHER FINDINGS: Endotracheal tube and nasogastric tube in satisfactory position IMPRESSION: Moderate vascular congestion and right-sided perihilar infiltrate
--- NOTE | 2018-07-10 19:58 | PN ---
DATE: 07/10/2018 SUBJECTIVE: The patient is currently seen on the ventilator. There are attempts to try and decrease his level of sedation with the hope of possible extubation in the next 24-48 hours. The patient's metabolic picture is improving. His urine output is increasing. Hopefully, the patient is turning the corner with his ATN and will see continued fall in BUN and creatinine. We do however, plan to do a dialysis treatment tomorrow and perhaps after tomorrow's dialysis the patient can be extubated. His platelet count is trending higher post immunoglobulin for his ITP. The patient continues on Dobutrex for his severe cardiomyopathy. MEDICATIONS: Medication list reviewed. The patient is currently on Dobutrex, doxycycline, DuoNeb, fentanyl low-dose, heparin, insulin, immune globulin, meropenem, Precedex low-dose, Protonix, Solu-Medrol tapering dose, and Tylenol p.r.n. OBJECTIVE: INTAKE/OUTPUT: Intake is 2044, output is 2500. VITAL SIGNS: Blood pressure 129/45, pulse of 110. Temperature 99.1 with an oxygen saturation of 95%. HEENT: The patient's eyes are open. He remains intubated. NECK: Supple. No neck vein distention. CHEST: Scattered rhonchi. No rales. Decreased breath sounds at the bases. CARDIOVASCULAR: Shows a regular rate and rhythm with MR/TR/PI. No S3, no S4, no rub. ABDOMEN: Soft. Bowel sounds normal. No rebound, guarding or masses. EXTREMITIES: Show no dependent edema. His legs are elevated. No cyanosis or clubbing. LABORATORY DATA AND IMAGING: Chest x-ray done today shows moderate vascular congestion with a right-sided perihilar infiltrate. CBC, white blood cell count 9.5, hemoglobin 7.4 with a platelet count of 26,000, manual platelet count is 39,000. Blood gas today pH 7.39, pO2 137 with a pCO2 of 38. Chemistries show normal electrolytes. BUN 128 with a creatinine of 4.3. Glucose is 226, followup glucose 204. Calcium 7.4 with an albumin of 3.1. Last phosphorus level was 11. Microbiology, all cultures were negative with the exception of yeast in the sputum. ASSESSMENT: 1. Acute renal failure in the setting of likely acute tubular necrosis in the setting of severe cardiomyopathy with possible myocardial infarction. The patient has an ejection fraction of 14%. He is currently becoming more nonoliguric, urine output is picking up. Workup for vasculitis is in progress. Anti-GBM titers are pending. Hyperkalemia has resolved with dialysis. He did receive his second dialysis last night. He is scheduled for dialysis tomorrow. 2. Sepsis with community-acquired pneumonia and influenza. The patient continues on antibiotic therapy and had completed a course of antiviral therapy. 3 History of severe cardiomyopathy. This appears to be a new finding. Ejection fraction was 14% with valvular heart disease. The patient is being followed by Cardiology and remains on ionotropic agents. 4. Acute respiratory failure. Decreasing sedation. Attempt perhaps post dialysis tomorrow for extubation. 5. History of severe thrombocytopenia. No evidence for thrombotic thrombocytopenic purpura or hemolytic uremic syndrome. The patient has a long history of idiopathic thrombocytopenic purpura. Peripheral smear was looked at and the patient has no schistocytes. Fibrin split products were between 10 and 40. The patient continues receiving IV immune globulin. 6. History of [id number] diabetes mellitus. The patient remains on insulin. Glucose levels are improved today. 7. History of Image result for chronic obstructive pulmonary disease, currently stable. 8. History of hypertension, not an issue at present. Blood pressure is trending in the low-normal range. 9. Elevated liver enzymes, transaminitis appears to be resolving. Liver ultrasound showed hepatosplenomegaly. PLAN: 1. No hemodialysis is necessary today as the last hemodialysis was done last night. The patient will receive hemodialysis tomorrow in the morning, after which perhaps attempted extubation. 2. Continue Dobutrex for ionotropic support. 3. Continue to decrease sedation. 4. Continue to monitor platelet count closely and transfuse platelets as necessary. 5. Discussed with the patient's family with pipe buffer and ICU house staff and hemodialysis nurse, hoping that increased urine output will decrease the patient's dependency on dialysis. 6. Continue to follow full serologies anti-GBM, antibody titers are still pending. 7. In light of the critical situation and the patient's current state, no possibility of doing a kidney biopsy at this point in time. Greater than 35 minutes spent in the care of this critically ill patient. Margarito Mcnamara MD [facility] # [id number]
[2018-07-10 20:16] LABS: BASO # 0.01 K/mm3 (0.0-2.0); BASO % 0.1 % (0.0-3.0); GRAN # 11.27 (1.4-6.5); GRAN % 91.1 % (50.0-68.0); HEMOGLOBIN 9.1 g/dL (14.0-18.0); LYMPH # 1.1 (1.2-3.4); LYMPH % 8.6 % (22.0-35.0); MEAN CELL VOLUME 82.7 fl (80.0-105.0); MEAN CORPUSCULAR HEMOGLOBIN 26.6 pg (25.0-35.0); MEAN CORPUSCULAR HGB CONC 32.2 g/dl (31.0-37.0); MONO % 0.2 % (1.0-6.0); RBC 3.42 10^6/uL (3.5-6.1); RED CELL DISTRIBUTION WIDTH 16.5 % (11.5-14.5); WHITE BLOOD COUNT 12.4 10^3/uL (4.5-11.0)
[2018-07-10 20:22] LABS: PLATELET COUNT 35 10^3/uL (120.0-450.0)
[2018-07-10 20:37] LABS: LYMPHOCYTE 4 % (22.0-35.0); METAMYELOCYTE 1 %; MONOCYTE 4 % (1.0-6.0); NEUTROPHIL 91 % (50.0-70.0)
[2018-07-10 20:38] LABS: LARGE PLATELETS PRESENT; PLATELET ESTIMATE LOW (NORMAL)
[2018-07-10] MEDS: MEROPENEM 500 MG in NS 500 MG/50 ML BAG IVPB SCH (21:34)
[2018-07-10] MEDS: Insulin Detemir 100 units/ml Vial (Levemir) SC SCH (21:45)
[2018-07-10] MEDS: Acetaminophen 650mg/20.3ml solution UD PO PRN (22:25)
[2018-07-10] MEDS: DOBUTamine 500mg/250ml D5W 500 MG/250 ML BAG IV PRN (23:14)
[2018-07-10 23:31] LABS: ANCA SCREEN NEGATIVE (NEGATIVE)
[2018-07-11] MEDS: Acetaminophen 650mg/20.3ml solution UD PO PRN (03:48)
[2018-07-11] MEDS ORDERED: Amiodarone 150 mg/D5W 100 ml 150 MG/100 ML BAG IVPB ONE (04:14)
[2018-07-11 05:38] LABS: ARTERIAL BLOOD GAS HCO3 19.7 mmol/L (21-28); ARTERIAL BLOOD GAS HEMOGLOBIN 9.4 g/dL (11.7-17.4); ARTERIAL BLOOD GAS O2 CAPACITY 13.2 mL/dl (16-24); ARTERIAL BLOOD GAS O2 CONTENT 13.2 ML/dl (15-23); ARTERIAL BLOOD GAS O2 SAT 99.7 % (95-98); ARTERIAL BLOOD GAS PCO2 41 mm/Hg (35-45); ARTERIAL BLOOD GAS PH 7.29 (7.35-7.45)
[2018-07-11 06:40] LABS: BASO # 0.01 K/mm3 (0.0-2.0); BASO % 0.1 % (0.0-3.0); GRAN # 7.64 (1.4-6.5); GRAN % 85.4 % (50.0-68.0); HEMOGLOBIN 8.5 g/dL (14.0-18.0); LYMPH % 10.8 % (22.0-35.0); MEAN CELL VOLUME 84.1 fl (80.0-105.0); MEAN CORPUSCULAR HEMOGLOBIN 25.9 pg (25.0-35.0); MEAN CORPUSCULAR HGB CONC 30.8 g/dl (31.0-37.0); MONO # 0.3 (0.1-0.6); MONO % 3.7 % (1.0-6.0); RBC 3.28 10^6/uL (3.5-6.1); RED CELL DISTRIBUTION WIDTH 16.6 % (11.5-14.5)
[2018-07-11 06:44] LABS: ALB/GLOB RATIO 0.9 (1.1-1.8); ALBUMIN 3.2 g/dL (3.0-4.8); CALCIUM 7.4 mg/dL (8.4-10.5)
[2018-07-11 06:45] LABS: PLATELET COUNT 36 10^3/uL (120.0-450.0)
[2018-07-11] MEDS: Dexmedetomidine 400mcg/100mL 400 MCG/100 ML BOTTLE IV PRN ×3 (07:30→19:50)
[2018-07-11] MEDS: Insulin Reg-MEDIUM-Coverage SC SCH ×4 (08:00→21:53)
[2018-07-11] MEDS: Albuterol-Ipratrop 3 mg / 0.5 (3 ml) UD IH SCH ×3 (08:47→20:22)
--- NOTE | 2018-07-11 09:11 | PN ---
DATE: 07/11/2018(650am-740am) PULMONARY NOTE SUBJECTIVE: The patient remains on the ventilator. He remains sedated. PHYSICAL EXAMINATION: VITALS: Temperature is 102.7, pulse on the monitor is 117, respiratory rate 24/20, blood pressure 146/89. HEENT: Normocephalic, atraumatic. No JVD. CARDIOVASCULAR: Systolic ejection murmur at the lower left sternal border. No S3 gallop. LUNGS: Decreased breath sounds at the bases. Minimal bilateral rhonchi. No wheezing. EXTREMITIES: Mild edema. No cyanosis, no clubbing. GASTROINTESTINAL: Abdomen is soft, nondistended. Bowel sounds are positive. SKIN: No acute rash. NEUROLOGIC EXAM: Limited at the present time. 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 There are now diffuse bilateral pulmonary infiltrates. The infiltrate in the right lower lobe appears less dense, however, there are now diffuse bilateral pulmonary infiltrates. Arterial blood gas was done on PRVC 20, tidal volume 450, FiO2 60%. Results are: PH 7.29, pCO2 of 41, pO2 of 174. IMPRESSION: 1. Respiratory failure. 2. Bilateral pneumonia. 3. Rule out myocardial infarction. 4. Ischemic dilated cardiomyopathy. 5. Renal failure. 6. Anemia, severe thrombocytopenia. 7. Chronic obstructive pulmonary disease. PLAN: The patient remains on the ventilator and in the ICU. He is sedated. I did discuss the case with the night nurse at length. The night nurse stated that the patient is doing poorly overall. I did review the chest x-ray as above. There are now bilateral diffuse pulmonary infiltrates. The patient has been restarted on antibiotic therapy. Input by Infectious Disease (Dr. Lucero) is noted. I have also reviewed the arterial blood gas. The arterial blood gas reveals a mild metabolic acidosis with a moderate increase in the alveolar-arterial gradient. We can probably decrease the FiO2 at this point in time. On physical exam, there is no significant bronchospasm noted. I will continue the current nebulizer treatments for now. Inputs by Renal and Cardiology are also noted. The patient remains critically ill with extremely guarded/poor prognosis. I will discuss the above with the entire ICU team in the next few moments. I will also discuss the above with the attending physician later this morning. Balta Burr MD [facility]
--- NOTE | 2018-07-11 09:58 | CARD ---
APPROVED REPORT Date of service: 07/11/2018 EKG Measurement Heart [id number] <Conclusion> Normal sinus rhythm Incomplete left bundle branch block Nonspecific ST abnormality Abnormal ECG
--- NOTE | 2018-07-11 10:06 | PN ---
SUBJECTIVE: The patient was seen and examined at bedside in the ICU. He was febrile overnight with a temperature of 105.1. He remains intubated and sedated with ongoing weaning trials. Overall he is demonstrating slow and gradual clinical improvement. OBJECTIVE: VITAL SIGNS: Tm 105.1, Tc 97.5, pulse 91, blood pressure 119/72, respiratory rate 20, oxygen saturation 100% on 60% FIO2. GENERAL: Intubated and sedated. HEENT: PERRL. ETT in place OGT in place. NECK: No JVD. LUNGS: Coarse breath sounds anteriorly with scattered rhonchi. CARDIOVASCULAR: Regular rate and rhythm. Normal S1, S2. ABDOMEN: Normoactive bowel sounds. Soft, nondistended. EXTREMITIES: 1+ edema in all extremities. Central venous catheter placed to left groin with site appearing clean, dry and intact. NEUROLOGIC: The patient remains sedated. LABORATORY DATA: WBC 9, hemoglobin 8.5, hematocrit 28, platelets 36. Sodium 141, potassium 5.1, chloride 107, bicarb 21, BUN 143, creatinine 4.6, glucose 315. AST 66, ALT 184. ASSESSMENT: The patient is a 62-year-old man with multiple medical comorbidities who was admitted to ICU s/p intubation for acute hypoxic respiratory failure secondary to severe sepsis secondary to community-acquired pneumonia and multiorgan system failure. PLAN: 1. Acute hypoxic respiratory failure s/p intubation. Input from Dr. Burr and ICU team greatly appreciated. Continue care as per ICU team. Continue with weaning trials as per ICU team. 2. Severe sepsis secondary to community-acquired pneumonia with influenza. Input from Dr. Fernandes greatly appreciated. Continue current antimicrobials. 3. Acute kidney injury, consider secondary to ATN in the setting of severe sepsis. Input from Dr. Mcnamara greatly appreciated and the patient has received a renal replacement therapy. Continue with care as per Dr. Mcnamara. 4. NSTEMI. Input from Dr. Saxena appreciated. The patient will require cardiac catheterization when medically stabilized. 5. Acute systolic heart failure. Continue with Dobutamine for inotropic support. Continue to monitor strict I&O's. 6. Transaminitis, likely secondary to shock liver in the setting of severe sepsis, resolving. 7. Thrombocytopenia secondary to ITP. Input from Dr. Estevez appreciated. HIT antibody negative. The patient has received periodic transfusions and IVIG. Continue to monitor CBC daily. 8. Normocytic anemia. 9. Hyperkalemia, resolved. 10. Type 2 diabetes mellitus. Glucose values remained uncontrolled. The patient may require initiation of insulin drip. 11. Hypertension. 12. Pseudogout. 13. Anxiety disorder. 14. GERD. 15. Prophylaxis. Continue Protonix for GI prophylaxis and SCDs for DVT prophylaxis. CODE STATUS: Full code. Yassine Martinez MD MTDD
--- NOTE | 2018-07-11 10:52 | PN ---
DATE: 07/11/2018 SUBJECTIVE: Patient is in bed in no acute distress, nontoxic. PHYSICAL EXAMINATION: VITAL SIGNS: Temperature is 97, T-max is 102, and blood pressure is 119/70, respiratory rate is 26. HEENT: Reveals ET tube in place. NECK: Supple. LUNGS: Have decreased breath sounds. HEART: Normal S1, S2. ABDOMEN: Soft, nontender. LABORATORY EXAMINATION: Reveals a white count of 9000, hemoglobin of 8, platelets of 36. Chemistries reveals a BUN of 143, creatinine of 4.6. Immunology is noted. Serology, influenza is positive. Microbiology reveals blood cultures from the 07/09/2018 are no growth. Urine cultures from the 07/09/2018 are no growth. The patient's chest x-ray from yesterday, right-sided perihilar infiltrate. Review of orders. The patient is on meropenem, Solu-Medrol and a dose of vancomycin was given. ASSESSMENT AND PLAN: This is a 62-year-old male with severe sepsis with hypoxic respiratory failure, ventilator dependent respiratory failure, [id number] renal failure, as well as thrombocytopenia and right-sided healthcare-associated pneumonia on top of influenza virus A and chronic obstructive lung disease and hypertension, diabetes, and now day #2 of vancomycin and meropenem because of a new fever and doxycycline. Pending repeat subramanian culture results. Satya Fernandes MD
[2018-07-11] MEDS: MEROPENEM 500 MG in NS 500 MG/50 ML BAG IVPB SCH ×2 (12:07→21:54)
[2018-07-11] MEDS: MethylPREDNISolone 40 mg Vial IVP SCH (12:11)
[2018-07-11] MEDS: IMMUNE GLOBULIN IV SCH (12:12)
[2018-07-11] MEDS: PREMIXED IV SCH (12:12)
--- NOTE | 2018-07-11 12:33 | RAD ---
Date of service: 07/11/2018 HISTORY: f/u COMPARISON: 07/10/2018 FINDINGS: LUNGS: There is a decrease in the pattern of pulmonary edema. There is moderate vascular congestion. Endotracheal tube and nasogastric tube unchanged PLEURA: No significant pleural effusion identified, no pneumothorax apparent. CARDIOVASCULAR: Aortic calcification Moderate cardiomegaly OSSEOUS STRUCTURES: No significant abnormalities. VISUALIZED UPPER ABDOMEN: Normal. OTHER FINDINGS: None. IMPRESSION: There is a decrease in the pattern of pulmonary edema. There is moderate vascular congestion. Endotracheal tube and nasogastric tube unchanged
--- NOTE | 2018-07-11 13:05 | PN ---
DATE: 07/10/2018 SUBJECTIVE The patient is he is sedated on the ventilator with FiO2 of 68. No obvious distress. The patient is hemodynamically stable with O2 saturation of 100%. PHYSICAL EXAMINATION: VITAL SIGNS: Note that his temperature is 97.0, his pulse is 81, respirations are 18 and BP is 118/68. SKIN: Warm and dry. HEENT: Head atraumatic, normocephalic. Eyes reactive to light. Ears, nose and throat seemed to be within normal limits. NECK: Supple. No JVD. No thyroid enlargement or lymph nodes. HEART: Has regular rate and rhythm. Normal S1, S2. LUNGS: Reveal rhonchi bilaterally. ABDOMEN: Soft. Decreased bowel sounds. GENITALIA: Deferred. RECTAL: Deferred. MUSCULOSKELETAL: No joint deformities. EXTREMITIES: Reveal positive lower extremity edema. NEUROLOGIC: The patient is sedated on the ventilator. LABORATORY DATA: As far as the laboratories are concerned, white count is 9.0, hemoglobin is 8.5. His hematocrit is 27.6 with platelets of 36,000. The patient's arterial blood gas reveals a pH of 7.29, pCO2 of 41, pO2 of 174. Patient's sodium is 141, potassium 5.1, chloride 107, CO2 of 21 with a BUN of 143 and creatinine of 4.2. As far as the patient has a glucose of 338. Chest x-ray reveals bilateral fluffy infiltrates. IMPRESSION: As far as my impression, this patient has respiratory failure requiring ventilator support, has bilateral pneumonia and presented with myocardial infarction. The patient has some pulmonary edema as well as thrombocytopenia, sepsis, acute renal failure, diabetes, hypertension, gastroesophageal reflux disease, anemia and a metabolic acidosis. PLAN: As far as our plan, we will continue with ventilator support and titrate the FiO2 down as tolerated. Continue with aggressive pulmonary toilet. The patient is getting DuoNeb as a bronchodilator, doxycycline, dobutamine, Precedex, heparin, meropenem, Levemir, Solu-Medrol, Protonix. We will continue to treat aggressively along with the other consultants and the primary care doctor. Maxi Hamm MD [facility] # [id number]
[2018-07-11] MEDS ORDERED: Sodium Chloride 0.9% 250 ML IV STA (16:14)
[2018-07-11] MEDS: diltiaZEM IVPB 100mg in NS 100 ML IV PRN (18:47)
[2018-07-11] MEDS: Insulin Detemir 100 units/ml Vial (Levemir) SC SCH (21:54)
[2018-07-11] MEDS: Albuterol-Ipratrop 3 mg / 0.5 (3 ml) UD IH PRN (23:55)
[2018-07-12] MEDS: Acetaminophen 650mg/20.3ml solution UD PO PRN ×3 (02:00→23:41)
[2018-07-12] MEDS: diltiaZEM IVPB 100mg in NS 100 ML IV PRN ×3 (03:00→21:30)
[2018-07-12] MEDS: Albuterol-Ipratrop 3 mg / 0.5 (3 ml) UD IH SCH ×4 (03:14→20:45)
[2018-07-12] MEDS: Dexmedetomidine 400mcg/100mL 400 MCG/100 ML BOTTLE IV PRN ×5 (04:10→21:12)
[2018-07-12 06:40] LABS: BASO # 0.01 K/mm3 (0.0-2.0); BASO % 0.1 % (0.0-3.0); GRAN # 9.35 (1.4-6.5); GRAN % 88.9 % (50.0-68.0); HEMOGLOBIN 8.6 g/dL (14.0-18.0); LYMPH # 0.8 (1.2-3.4); LYMPH % 7.5 % (22.0-35.0); MEAN CELL VOLUME 83.6 fl (80.0-105.0); MEAN CORPUSCULAR HEMOGLOBIN 26.5 pg (25.0-35.0); MEAN CORPUSCULAR HGB CONC 31.7 g/dl (31.0-37.0); MONO # 0.4 (0.1-0.6); MONO % 3.5 % (1.0-6.0); RBC 3.24 10^6/uL (3.5-6.1); RED CELL DISTRIBUTION WIDTH 16.4 % (11.5-14.5); WHITE BLOOD COUNT 10.5 10^3/uL (4.5-11.0)
[2018-07-12 06:57] LABS: PLATELET COUNT 44 10^3/uL (120.0-450.0)
[2018-07-12 07:05] LABS: ALB/GLOB RATIO 0.8 (1.1-1.8); ALBUMIN 2.9 g/dL (3.0-4.8); CALCIUM 7.8 mg/dL (8.4-10.5)
--- NOTE | 2018-07-12 07:28 | PN ---
DATE: 07/12/2018(620am-710am) PULMONARY NOTE SUBJECTIVE: The patient remains on the ventilator and in the ICU. He is less sedated this morning. PHYSICAL EXAMINATION: VITALS: Temperature is 100.9, pulse 86, respirations 22/20, and blood pressure 104/67. HEENT: Normocephalic, atraumatic. No JVD. CARDIOVASCULAR: Systolic ejection murmur at the lower left sternal border. No S3 gallop. LUNGS: Decreased breath sounds at the bases. Less rhonchi. No wheezing. EXTREMITIES: Mild edema. No cyanosis, no clubbing. GASTROINTESTINAL: Abdomen is soft, nondistended. Bowel sounds are positive. SKIN: No acute rash. NEUROLOGIC: Exam limited at the present time. 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 The chest x-ray appears improved-- with decreased bilateral pulmonary infiltrates. Official results are pending. Arterial blood gas ordered - pending. IMPRESSION: 1. Respiratory failure. 2. Bilateral pneumonia. 3. Rule out myocardial infarction. 4. Ischemic dilated cardiomyopathy. 5. Renal failure. 6. Anemia, severe thrombocytopenia. 7. Chronic obstructive pulmonary disease. PLAN: The patient remains on the ventilator and in the ICU. He is less sedated this morning. I did discuss the case with the night nurse at length. The night nurse stated that the patient is doing a little better overall. I did review the chest x-ray as above. The chest x-ray appears improved today - with decreased bilateral pulmonary infiltrates. As above, I am awaiting an arterial blood gas to be done. I should be called with those results. On physical exam, there is certainly less bronchospasm noted. I will continue the current nebulizer treatments for now. The patient remains on antibiotic therapy - as per Infectious Disease. There are low grade temperatures noted. The leukocytosis has resolved. Inputs by Renal and Cardiology are also noted. Clinical status of the patient appears somewhat improved. He remains critically ill, with very guarded prognosis. I will discuss the above with the entire ICU team in the next few moments. I will also discuss the above with the attending physician later this morning. Balta Burr MD [facility] # [id number] [facility]
[2018-07-12] MEDS: Insulin Reg-MEDIUM-Coverage SC SCH (08:10)
--- NOTE | 2018-07-12 09:36 | CARD ---
APPROVED REPORT Date of service: 07/12/2018 EKG Measurement Heart [id number] <Conclusion> Atrial fibrillation Incomplete left bundle branch block ST & T wave abnormality, consider lateral ischemia or digitalis effect Abnormal ECG
--- NOTE | 2018-07-12 09:41 | CARD ---
APPROVED REPORT Date of service: 07/11/2018 EKG Measurement Heart [id number] <Conclusion> Atrial fibrillation with rapid ventricular response Incomplete left bundle branch block ST & T wave abnormality, consider inferior ischemia or digitalis effect Abnormal ECG
[2018-07-12 09:50] LABS: ARTERIAL BLOOD GAS HCO3 22.1 mmol/L (21-28); ARTERIAL BLOOD GAS HEMOGLOBIN 9.3 g/dL (11.7-17.4); ARTERIAL BLOOD GAS O2 CAPACITY 13.2 mL/dl (16-24); ARTERIAL BLOOD GAS O2 CONTENT 13.1 ML/dl (15-23); ARTERIAL BLOOD GAS O2 SAT 99.6 % (95-98); ARTERIAL BLOOD GAS PCO2 34 mm/Hg (35-45); ARTERIAL BLOOD GAS PH 7.42 (7.35-7.45); ARTERIAL BLOOD GAS TCO2 23.1 mmol.L (22-28)
--- NOTE | 2018-07-12 10:00 | PN ---
DATE: 07/12/2018 SUBJECTIVE: The patient is ventilator dependent, FIO2 of 68%. The patient is more responsive this morning. He moves and grimaces to the touch. The patient is on Cardene drip for heart rate control and is hemodynamically stable with O2 saturation of 100%. PHYSICAL EXAMINATION: VITAL SIGNS: Temperature 100.9, pulse 86, respirations are 20, and BP is 104/67. SKIN: Warm and dry. HEENT: Head: Atraumatic, normocephalic. Eyes: Reactive to light. Ears, nose and throat seemed to be within normal limits. NECK: Supple. No JVD. No thyroid enlargement, no lymph nodes. HEART: Regular rate and rhythm. Normal S1, S2. LUNGS: Rare rhonchi at the bases. ABDOMEN: Soft. Decreased bowel sounds. GENITALIA AND RECTAL: Deferred. MUSCULOSKELETAL: No joint deformities. EXTREMITIES: Reveal lower extremity edema. NEUROLOGIC: The patient is very lethargic to minimally responsive to pain and touch. LABORATORY DATA: His white count is 10.5, hemoglobin is 8.6, hematocrit 27.1 with platelets of 44,000. Arterial blood gas is pending. Sodium is 142, potassium 4.9, chloride 110, CO2 of 25 with a BUN 119, creatinine of 3.1 and a glucose of 368. As far as his chest x-ray, there are no obvious infiltrates, this is unofficial reading. IMPRESSION: The patient has respiratory failure requiring ventilator support and had been diagnosed with bilateral pneumonia. He also presented with myocardial infarction and pulmonary edema with thrombocytopenia, sepsis, acute renal failure, diabetes, hypertension, gastroesophageal reflux disease, anemia, and a metabolic acidosis. PLAN: We will continue with ventilator support and titrate the FIO2 down as tolerated. We will continue with aggressive pulmonary toilet and DuoNeb, doxycycline, dobutamine, Precedex, heparin, meropenem, Levemir, Solu-Medrol, Protonix, and Cardizem drip. The patient will be followed closely and treated aggressively along with the other consultants and the primary care doctor. Maxi Hamm MD
[2018-07-12] MEDS: MEROPENEM 500 MG in NS 500 MG/50 ML BAG IVPB SCH ×2 (10:04→21:13)
[2018-07-12] MEDS: DOBUTamine 500mg/250ml D5W 500 MG/250 ML BAG IV PRN (10:06)
[2018-07-12] MEDS: MethylPREDNISolone 40 mg Vial IVP SCH (10:07)
--- NOTE | 2018-07-12 10:25 | RAD ---
Date of service: 07/12/2018 HISTORY: f/u COMPARISON: 07/11/2018 FINDINGS: LUNGS: Mild perihilar edema. The endotracheal and nasogastric tube are in satisfactory position PLEURA: No significant pleural effusion identified, no pneumothorax apparent. CARDIOVASCULAR: No aortic atherosclerotic calcification present. Mild cardiomegaly vascular congestion OSSEOUS STRUCTURES: No significant abnormalities. VISUALIZED UPPER ABDOMEN: Normal. OTHER FINDINGS: None. IMPRESSION: Vascular congestion with mild perihilar edema. No significant change
[2018-07-12] MEDS ORDERED: Insulin Detemir 100 units/ml Vial (Levemir) SC SCH (10:28)
--- NOTE | 2018-07-12 11:13 | PN ---
DATE: 07/11/2018 SUBJECTIVE: The patient is currently seen in the process of receiving hemodialysis. We are targeting 2.5 liters off. The patient appears to be mildly hypervolemic. He remains in ATN and but does have a significant improvement in his urine output. The patient's platelet count is rising status post immunoglobulin treatment for his ITP. He does remain on Dobutrex for severe cardiomyopathy. MEDICATIONS: Medication list reviewed. The patient is currently on Dobutrex, doxycycline, DuoNeb, fentanyl, low-dose heparin, insulin, immunoglobulin, meropenem, Precedex low dose, Protonix, Solu-Medrol with a tapering dose, and Tylenol. OBJECTIVE: INTAKE AND OUTPUT: 2457, output is 1851 which 1850 mL are urine. VITAL SIGNS: Currently on dialysis and blood pressure 114/69, temperature 97.5, pulse of 83 with an oxygen saturation of 99% and a respiratory rate of 26. HEENT: The patient's eyes were closed. The patient remains intubated. NECK: Supple. No neck vein distention. CHEST: Scattered rhonchi. No rales. Decreased breath sounds at the bases. CARDIOVASCULAR: Shows a regular rate and rhythm with MR/TR/PI. No S3, no S4, no rub. ABDOMEN: Soft. Bowel sounds normal. No rebound, guarding or masses. EXTREMITIES: Show no dependent edema. Legs are elevated. No cyanosis or clubbing. LABORATORY DATA AND IMAGING: CBC from yesterday, white blood cell count from earlier this morning, 07/11/2018, white blood cell count 9, hemoglobin is 8.5, platelet count is 36,000. Chemistry showed a potassium of 5.1, BUN was 143 with a creatinine of 4.6, glucose is 315. Phosphorus is elevated at 9.1. Calcium 7.4, magnesium level of 2.6. Mild elevation of his liver enzymes but these are improving. Microbiology, all cultures were negative with the exception of yeast in the sputum. ASSESSMENT: 1. Acute renal failure in the setting of acute tubular necrosis, in the setting of cardiomyopathy with a likely somewhat a cardia wall myocardial infarction The patient has an ejection fraction of 14%, remains on ionotropic therapy. It is unlikely that he has a pulmonary renal syndrome but anti-GBM titers are pending. The patient is currently receiving his third dialysis. The hope is to render the patient euvolemic with the possibility of extubation as we decrease his sedation. 2. Sepsis with community-acquired pneumonia and influenza. The patient remains on antibiotic therapy and completed a course of antiviral therapy. 3. History of severe cardiomyopathy. This appears to be a new finding. Ejection fraction of 14% with valvular heart disease. The patient is being followed by Cardiology and remains on ionotropic agents. 4. Acute respiratory failure, decrease in sedation. Possible attempts at extubation if he makes weaning parameters post dialysis. 5. History of severe thrombocytopenia. No evidence for thrombotic thrombocytopenic purpura or hemolytic uremic syndrome. The patient had no schistocytes on his smear. He does have a history of immune thrombocytopenic purpura. His platelet count has slowly increased with intravenous immunoglobulin. The patient is being followed by Dr. Estevez who knows him well. 6. History of noninsulin-dependent diabetes mellitus. The patient remains on insulin. Glucose control is variable. 7. Stable chronic obstructive pulmonary disease. 8. History of hypertension, not an issue. The patient's blood pressure is trending in the low normal range. 9. Elevated liver enzymes, transaminitis appears to be resolving. Liver ultrasound showed splenomegaly. PLAN: 1. Continue dialysis. Target 2.5 liters off. 2. Continue Dobutrex for ionotropic support. 3. Continue to decrease sedation. 4. Discussed with ICU staff, project management professor, and hemodialysis nurse. 5. Await anti-GBM antibody titers. 6. No role for kidney biopsy as the patient in his current state would not be able to tolerate the procedure. Greater than 35 minutes spent in the care of this critically ill patient. Margarito Mcnamara MD
[2018-07-12] MEDS ORDERED: Insulin Reg-HIGH-Coverage SC SCH (11:30)
[2018-07-12] MEDS ORDERED: Digoxin 500 mcg/2ml (0.5 mg/2ml) Inj IVP SCH ×2 (11:45→14:00)
--- NOTE | 2018-07-12 11:55 | PN ---
DATE: 07/12/2018 SUBJECTIVE: The patient is currently seen on 07/12/2018. He is in ICU bed 5. The patient remains on the ventilator with decreasing levels of sedation. When the patient is spoken to, he does nod his head. He appears to be improving. His clinical picture appears to be improving. The patient did develop atrial fibrillation last night and is currently on IV diltiazem. The working diagnosis here is that of ATN, nonoliguric, in the setting of sepsis and pneumonia in the setting of a severe cardiomyopathy. The patient was seen by Pulmonary. He will likely not be extubated today. MEDICATIONS: Medication list reviewed. The patient is currently on IV diltiazem, Diprivan is on hold, Dobutrex at 2.5 mcg/kilo per minute, doxycycline, DuoNeb, heparin, insulin, meropenem, Precedex low dose at 0.2 mcg/kg per hour, Protonix, Solu-Medrol on tapering dose, and Tylenol p.r.n. OBJECTIVE: INTAKE AND OUTPUT: Intake is 4308, urine is 2550 with 2000 mL removed with hemodialysis. VITAL SIGNS: Blood pressure is 104/67, pulse rate is 101. Oxygen saturation 100%. Temperature is 100.9. Respiratory rate is 26. HEENT: Eyes are open. The patient remains intubated. NECK: Supple. No neck vein distention. CHEST: Scattered rhonchi. No rales. Slight decreased breath sounds at the bases. CARDIOVASCULAR: Shows a regular rate and rhythm with MR/TR/PI. No S3, no S4, no rub. ABDOMEN: Soft. Bowel sounds normal. No rebound, guarding or masses. EXTREMITIES: Show no dependent edema. Legs are elevated. No cyanosis or clubbing. LABORATORY DATA AND IMAGING: Chest x-ray from today is pending. Yesterday's chest x-ray done prior to dialysis showed decrease in the pattern of pulmonary edema. Moderate pulmonary vascular congestion. Endotracheal tube and nasogastric tube are in place and unchanged. Labs from today, CBC, white blood cell count 10.5, hemoglobin 8.6 with a platelet count of 44,000, this continues to improve. Coags are unchanged. No blood gas done today. Chemistries from today showed a BUN of 119 with a creatinine of 3.1, this is the day post dialysis. Glucose is 368. Calcium 7.8, phosphorus 6.6 with a magnesium level of 2.5. Liver enzymes continue to improve. Albumin remains low at 2.9. Cryoglobulins are pending. Anti-GBM antibody titer is pending. ANCA titers were negative. C3 was 59 with a C4 of 14.7. Microbiology, all cultures are negative with the exception of a sputum culture which is positive for yeast. ASSESSMENT: 1. Acute renal failure in the setting of acute tubular necrosis. The patient is currently nonoliguric with improvement in urine output on a daily basis. Workup for vasculitis in progress but this is unlikely. Anti-GBM titers are pending. Hyperkalemia has resolved. The patient has received a total of 3 dialysis treatments. He will likely be scheduled for dialysis again tomorrow as per my discussion with the hemodialysis nurse on 07/11/2018. 2. Sepsis with community-acquired pneumonia and influenza. The patient completed a course of antiviral therapy and remains on antibacterial therapy. 3. History of severe cardiomyopathy, ejection fraction 14%, status post subendocardial wall myocardial infarction. The patient remains on ionotropic agents. The patient did develop atrial fibrillation with a rapid ventricular response in the afternoon of 07/11/2018. He is currently on intravenous diltiazem. He remains on heparin. 4. He remains only on subcutaneous heparin, he is not receiving intravenous heparin. 5. Acute respiratory failure. Decreasing sedation. Perhaps further attempts to extubate the patient, perhaps post dialysis tomorrow, unlikely that will be extubated today. Hoping not to have to place a tracheostomy. 6. History of severe thrombocytopenia, negative workup for thrombotic thrombocytopenic purpura/hemolytic uremic syndrome. The patient has a long history of idiopathic thrombocytopenic purpura. Peripheral smear was negative for schistocytes. Fibrin split products were between 10 and 40. The patient had received intravenous immunoglobulin as per Dr. Estevez with improvement in his platelet count. 7. History of noninsulin-dependent diabetes mellitus. Glucose control has been variable. The patient remains on sliding scale insulin. This is likely the result of steroids. 8. Stable chronic obstructive pulmonary disease 9. History of hypertension. The patient is borderline hypotensive. 10. Elevated liver enzymes. These appear to be resolving. Liver ultrasound showed hepatosplenomegaly. PLAN: 1. No hemodialysis scheduled for today. Quite possibly, we will do dialysis again tomorrow pending his volume status. Hope is that in the next 24 hours, the patient can be extubated as his sedation is being decreased and he is becoming more alert. 2. Continue Dobutrex for ionotropic support. 3. Continue IV diltiazem for rate control given his new onset atrial fibrillation. 4. Continue to monitor platelet counts carefully. Dr. Estevez is following the patient's closely. No role for transfusion of platelets today. 5. Discussed with the patient, ICU staff and house staff. Discussed with respiratory therapist. 6. Await return of full serologies including anti-glomerular basement antibody. 7. No role for kidney biopsy here as this appears to be acute tubular necrosis, currently nonoliguric, and technical difficulties to do a kidney biopsy given the patient's current situation. Of note, the patient also had only trace amount of protein in his urine. Greater than 35 minutes spent in the care of this critically ill patient. Margarito Mcnamara MD
[2018-07-12] MEDS ORDERED: Digoxin 500 mcg/2ml (0.5 mg/2ml) Inj IVP ONE (12:14)
--- NOTE | 2018-07-12 12:26 | PN ---
SUBJECTIVE: The patient was seen and examined at bedside in the ICU. The patient was noted to have low grade fevers overnight and remains in atrial fibrillation on a Cardizem and Amiodarone drip. His sedation is also being weaned in an attempt to wean him off the ventilator. OBJECTIVE: VITAL SIGNS: TM 100.9, TC 98.8, pulse 113, blood pressure 119/80, respiratory rate 20, oxygen saturation 100% on 68% FIO2. GENERAL: Intubated and sedated. HEENT: PERRL. ETT in place. OGT in place. NECK: No JVD. LUNGS: Clear to auscultation anteriorly. CARDIOVASCULAR: Irregularly irregular. Normal S1, S2. ABDOMEN: Normoactive bowel sounds. Soft, nondistended. EXTREMITIES: 1+ edema in all extremities. Central venous catheter in place to left groin with site appearing clean, dry and intact. NEUROLOGIC: Grimaces to noxious stimuli. LABORATORY DATA: WBC 10.5 with 89% neutrophils, hemoglobin 8.6, hematocrit 27, platelets 44. Sodium 142, potassium 4.9, chloride 110, bicarb 25, BUN 119, creatinine 3.1, glucose 368. Blood cultures with no growth to date. ASSESSMENT: The patient is a 62-year-old man with multiple medical comorbidities who was admitted to the ICU s/p intubation for acute hypoxic respiratory failure secondary to severe sepsis secondary to community-acquired pneumonia and multiorgan system failure. PLAN: 1. Acute hypoxic respiratory failure s/p intubation. Input from Dr. Burr in the ICU team greatly appreciated. Continue with care as per ICU team. Continue with weaning trials as per ICU team. 2. Severe sepsis secondary to community-acquired pneumonia with influenza. Input from Dr. Fernandes greatly appreciated. Continue with current antimicrobials. Continue to monitor for fever and leukocytosis. 3. Acute kidney injury, consider secondary to ATN in the setting of severe sepsis. Input from Dr. Mcnamara greatly appreciated and the patient is receiving renal replacement therapy. Continue with care as per Dr. Mcnamara. 4. NSTEMI. Input from Dr. Saxena appreciated. The patient will likely require cardiac catheterization when medically stabilized. 5. Atrial fibrillation, new onset. He remains rate-controlled on Cardizem and Amiodarone. 6. Acute systolic heart failure. Continue Dobutamine for inotropic support. 7. Transaminitis, likely secondary to shock liver in the setting of severe sepsis, resolved. 8. Thrombocytopenia secondary to ITP. Input from Dr. Estevez appreciated. Continue with care as per Dr. Estevez. 9. Normocytic anemia. Labs demonstrate stable H/H with no evidence of active bleed. 10. Type 2 diabetes mellitus. Continue with medium-dose insulin sliding scale and increase Levemir to 15 units sc at bedtime. 11. Hypertension. 12. Pseudogout. 13. Anxiety disorder. 14. GERD. 15. Prophylaxis. Continue Protonix for GI prophylaxis and SCDs for DVT prophylaxis. CODE STATUS: Full code. Yassine Martinez MD MTDD
[2018-07-12] MEDS: Insulin Reg-HIGH-Coverage SC SCH ×3 (12:29→23:38)
[2018-07-12] MEDS: Digoxin 500 mcg/2ml (0.5 mg/2ml) Inj IVP SCH ×3 (12:35→14:15)
--- NOTE | 2018-07-12 12:55 | PN ---
DATE: 07/12/2018 SUBJECTIVE: The patient remains on a ventilator. OBJECTIVE: VITAL SIGNS: Blood pressure 110/80, heart rate is atrial fibrillation in the 120s. NECK: Negative JVD. LUNGS: No change. HEART: Reveals S1, S2. EXTREMITIES: Without edema. LABORATORY DATA: Hemoglobin is 8.6, platelet count remains at 44,000. Chemistries, BUN and creatinine is 119 over 3.1. IMPRESSION: 1. Atrial fibrillation. 2. Respiratory failure. 3. End-stage renal disease. 4. Dilated cardiomyopathy. 5. Thrombocytopenia. Given these findings, I have initiated IV Cardizem. In addition, we will give doses of digoxin will help control the heart rate. Benjamin Saxena MD
--- NOTE | 2018-07-12 17:03 | PN ---
DATE: 07/12/2018 SUBJECTIVE: The patient is seen earlier today in ICU, intubated on a ventilator. Overall in poor condition. PHYSICAL EXAMINATION: VITAL SIGNS: On exam, temperature is 98, T-max yesterday was 100.9, respiratory rate is on the vent. Heart rate of 91. HEENT: Examination of HEENT is unremarkable. NECK: Supple. LUNGS: Have decreased breath sounds. HEART: Normal S1, S2. ABDOMEN: Soft, nontender. LABORATORY DATA: Laboratory examination reveals a white count of 10,000, hemoglobin of 8, platelets of 44. Chemistries reveals a creatinine is 3.1. LFTs are noted and procalcitonin is noted at 5.96 and urinalysis is noted. The influenza is positive and microbiology reveals the blood cultures are negative. Chest x-ray, ET tube placed in satisfactory position... Review of orders reveals the patient is on dobutamine, doxycycline, meropenem, Solu-Medrol. With repeat blood cultures negative and the third urine cultures negative and initial MRSA screen is negative. Dr. Hamm's progress note is reviewed. Dr. uBrr's note is reviewed. ASSESSMENT/PLAN: A 62-year-old male with severe sepsis, hypoxic respiratory failure, ventilator dependent respiratory failure, [id number] renal failure and thrombocytopenia with right-sided healthcare-associated pneumonia on top of a positive influenza A in a patient with chronic obstructive lung disease, hypertension, diabetes. The patient has completed Tamiflu therapy, now on day #3 of meropenem and doxycycline and the patient had been on vancomycin. We will follow with you, complete a short course of therapy of meropenem and doxycycline.. The patient had been on intermittent vancomycin. We will check on the repeat MRSA screen and the sputum culture. Overall prognosis . Satya Fernandes MD
[2018-07-13] MEDS: Dexmedetomidine 400mcg/100mL 400 MCG/100 ML BOTTLE IV PRN ×3 (01:48→21:14)
[2018-07-13] MEDS: Albuterol-Ipratrop 3 mg / 0.5 (3 ml) UD IH SCH ×4 (02:50→20:50)
--- NOTE | 2018-07-13 03:13 | PN ---
DATE: 07/12/2018 HEMATOLOGY/ONCOLOGY PROGRESS NOTE LOCATION: The patient is in ICU, bed 5. REASON FOR CONSULTATION: The patient has ITP and we are following the patient for the thrombocytopenia in the background history of multiorgan failure for which the patient is in the unit. The patient is currently seen in bed. The patient remains on the ventilator with decreasing levels of sedation. He does appear to respond, then nods his head, appears to be is improving. The patient did develop atrial fibrillation earlier this morning and was currently on IV diltiazem. Working diagnosis, the patient has ATN in the setting of sepsis, pneumonia and severe cardiomyopathy. The patient is also being followed by Cardiology and Pulmonary. His FiO2 is down to 50% and it looks like he will not be extubated yet because he has ARDS. MEDICATIONS: Reviewed. The patient completed his IV IgG. He still is on IV diltiazem, Diprivan is on hold. The patient is on Dobutrex, doxycycline, DuoNeb, heparin, insulin, meropenem, Precedex, Protonix, Solu-Medrol on tapering dose and Tylenol p.r.n. OBJECTIVE: GENERAL: Input is 4000. Urine output is 2550 with 2000 mL removed during the hemodialysis, which was done yesterday. VITAL SIGNS: Stable. Blood pressure 104/67, pulse rate is 101, O2 sat is 100%, T-max is 100.9, respiration is 26. HEENT: Eyes are open. The patient remains intubated. There is no evidence of any blood in the ET tube or in the nasogastric tube. NECK: Supple. There is no adenopathy. No jugular venous distention. LUNGS: Reveal bilateral rhonchi, looks like decreased breath sounds at both bases. CARDIOVASCULAR SYSTEM: Reveals S1, S2 to be normal. No gallop is heard. ABDOMEN: Soft. No rebound, rigidity or guarding is noted. EXTREMITIES: Show no dependent edema. Legs are elevated. There is a chronic nonhealing ulcer on the right ankle, which has been bandaged. The patient has chronic skin changes in both lower extremities. LABORATORY DATA: Reveals white count is 10.5, hemoglobin is 8.6, the patient did receive 1 unit of blood, the platelet count of 44,000 which is improving. Coags are unchanged. Chemistry showed BUN of 119, creatinine of 3.1, this is post-dialysis. Glucose is 368, calcium is 7.8, phosphorus 6.6 with magnesium of 2.5. Liver enzymes continued to improve. T3 was 59. T4 was 14.7. All cultures are negative except for sputum, which is positive for yeast. Chest x-ray from today, results are pending, but the x-rays from yesterday did show decrease in the pattern of pulmonary edema and the infiltrates, which is a good sign. ASSESSMENT, NOTES AND PLAN: 1. The patient has acute tubular necrosis and multiorgan failure with acute respiratory distress syndrome. 2. Sepsis with community-acquired pneumonia and influenza. 3. History of cardiomyopathy with ejection fraction of 14%, status post non-ST elevation myocardial infarction. The patient has a new onset of atrial fibrillation, on diltiazem. 4. Acute respiratory failure, which is gradually improving. 5. Severe thrombocytopenia, aggravated by the fact the patient already has idiopathic thrombocytopenic purpura and has been on Promacta. Platelet count maintained around 70,000, now aggravated by the infection, responded nicely to IV steroids and gammaglobulin. We will continue to monitor the patient. If the platelets continue to drop, may have to start him on Nplate as it may be difficult to give the Promacta, which is only administered orally. 6. History of jje-[id number]-exroanrtw diabetes mellitus and the patient is on glucose control. 7. Chronic obstructive lung disease. 8. History of hypertension. 9. Elevated liver enzymes, gradually getting better. We will continue to monitor the patient with you hematologically and make appropriate recommendation. Continue ICU and ventilatory support as determined by Pulmonary and Renal as well. Please make a note, this is a complex patient with multiple comorbid medical issues. Sandra Estevez MD
[2018-07-13] MEDS: Acetaminophen 650mg/20.3ml solution UD PO PRN (05:00)
[2018-07-13] MEDS: Insulin Reg-HIGH-Coverage SC SCH ×4 (05:25→23:55)
[2018-07-13 06:49] LABS: GRAN # 12.08 (1.4-6.5); GRAN % 91.7 % (50.0-68.0); HEMOGLOBIN 8.3 g/dL (14.0-18.0); LYMPH # 0.9 (1.2-3.4); LYMPH % 6.7 % (22.0-35.0); MEAN CELL VOLUME 84.3 fl (80.0-105.0); MEAN CORPUSCULAR HGB CONC 30.9 g/dl (31.0-37.0); MONO # 0.2 (0.1-0.6); MONO % 1.6 % (1.0-6.0); RBC 3.19 10^6/uL (3.5-6.1); RED CELL DISTRIBUTION WIDTH 16.6 % (11.5-14.5); WHITE BLOOD COUNT 13.2 10^3/uL (4.5-11.0)
[2018-07-13 07:01] LABS: PLATELET COUNT 49 10^3/uL (120.0-450.0)
[2018-07-13 07:08] LABS: ARTERIAL BLOOD GAS HCO3 21.8 mmol/L (21-28); ARTERIAL BLOOD GAS HEMOGLOBIN 6.9 g/dL (11.7-17.4); ARTERIAL BLOOD GAS O2 CAPACITY 9.9 mL/dl (16-24); ARTERIAL BLOOD GAS O2 CONTENT 9.9 ML/dl (15-23); ARTERIAL BLOOD GAS PCO2 36 mm/Hg (35-45); ARTERIAL BLOOD GAS PH 7.39 (7.35-7.45); ARTERIAL BLOOD GAS TCO2 22.9 mmol.L (22-28)
[2018-07-13 07:35] LABS: ALB/GLOB RATIO 0.8 (1.1-1.8); ALBUMIN 3.1 g/dL (3.0-4.8); CALCIUM 8.2 mg/dL (8.4-10.5)
--- NOTE | 2018-07-13 08:03 | PN ---
DATE: 07/13/2018 SUBJECTIVE: The patient remains on the ventilator. He remains sedated. He is less awake this morning. PHYSICAL EXAMINATION: VITAL SIGNS: Temperature is 101.8, pulse on the monitor is 105, respiratory rate 22/14, blood pressure 149/80. HEENT: Normocephalic, atraumatic. No JVD. CARDIOVASCULAR: Systolic ejection murmur at the lower left sternal border. No S3 gallop. LUNGS: Decreased breath sounds at the bases. Minimal rhonchi. No wheezing. EXTREMITIES: Mild edema. No cyanosis, no clubbing. GASTROINTESTINAL: Abdomen is soft, nondistended. Bowel sounds are positive. SKIN: No acute rash. NEUROLOGIC: Exam limited at the present time. 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 The chest x-ray this morning is improved-- with a significant decrease in the right-sided infiltrates. Mild left pulmonary infiltrates remain. Arterial blood gas was done on PRVC 14, tidal volume 450, FIO2 50%. Results are: PH 7.39, pCO2 of 36, pO2 of 161. IMPRESSION: 1. Respiratory failure. 2. Bilateral pneumonia. 3. Rule out myocardial infarction. 4. Ischemic dilated cardiomyopathy. 5. Renal failure. 6. Anemia, severe thrombocytopenia. 7. Chronic obstructive pulmonary disease. PLAN: The patient remains on the ventilator. He is sedated and more lethargic this morning. I did discuss the case with the night nurse at length. The night nurse stated that the patient did not have a good night. He is now spiking fevers again. I did review the chest x-ray as above. The right-sided pulmonary infiltrates appear significantly decreased. Left-sided pulmonary infiltrates remain. I have also reviewed the arterial blood gas. The arterial blood gas is also improved-- with normalization of the pH and a decrease in the alveolar-arterial gradient. I would continue the current ventilator settings for now. I would continue with the antibiotic coverage as per Infectious Disease. The input by Dr. Fernandes is noted. As above, the patient continues to spike fevers. On physical exam, there is no significant bronchospasm noted. I will continue with the current nebulizer treatments. Inputs by Cardiology, Oncology and Renal are noted. The patient remains critically ill with very guarded/poor prognosis. I will discuss the above with the entire ICU team in the next few moments. I will discuss the above with the attending physician later this morning. Balta Burr MD MTDЮлия
--- NOTE | 2018-07-13 08:27 | PN ---
DATE: 07/11/2018 SUBJECTIVE: The patient is currently seen receiving hemodialysis for targeting 3000 mL in a three-hour treatment. The patient remains unresponsive. He remains on a ventilator. He remains on mild sedation. The patient does have a significant increase in urine output; however, his BUN and creatinine continue to increase. He is in nonoliguric ATN. MEDICATIONS: His medication list reviewed. The patient is currently on Dobutrex, doxycycline, DuoNeb, fentanyl, heparin, insulin, immune globulin, Levemir, meropenem, Precedex, Protonix, Solu-Medrol and Tylenol p.r.n. OBJECTIVE: INTAKE/OUTPUT: Intake is 2457, output is 1851, most of which was urine over the last 24 hours. VITAL SIGNS: Blood pressure 119/72, temperature 97.5, pulse 91, respiratory rate 26. Pulse ox is 100%. HEENT: The patient is intubated. Eyes are closed. NECK: No neck vein distention. CHEST: Scattered rhonchi. No rales. Decreased breath sounds at the bases. CARDIOVASCULAR: Regular rate and rhythm with MR/TR/PI. No S3. No S4. No rub. ABDOMEN: Soft. Bowel sounds normal. No rebound, guarding or masses. EXTREMITIES: No dependent edema of his lower extremity. Legs are elevated. No cyanosis or clubbing. Arms are puffy. The patient has a dialysis catheter in the right groin. IMAGING STUDIES: Today's chest x-ray is pending. Yesterday's chest x-ray showed moderate pulmonary vascular congestion with a right-sided perihilar infiltrate consistent with his known pneumonia. LABORATORY DATA: CBC; white blood cell count 9, improved. Hemoglobin low at 8.5. Platelet count remains low at 36,000. Blood gas today pH 7.29, pO2 of 174, pCO2 of 41 with a bicarbonate level of 19.7. Chemistries today; potassium 5.1, sodium 141. BUN 143 with a creatinine of 4.6. Glucose was 315. Calcium 7.4, phosphorus 9.1, magnesium 2.6. Liver enzymes remain elevated, but are improving. Albumin level remains low at 3.2. ANCA titers are negative. C3 is low at 59 with a C4 normal at 14.7. Anti-glomerular basement membrane antibody is pending. Cryoglobulins are pending. Serum protein electrophoresis shows a potential early nephrotic pattern. Platelet-induced antibody was negative. Microbiology, all cultures with the exception of the sputum culture for yeast were negative. ASSESSMENT: 1. Acute renal failure in the setting of acute tubular necrosis in the setting of severe cardiomyopathy with possible NE. The patient's ejection fraction is 14%. Workup for vasculitis is in progress. Anti-glomerular basement membrane antibody titers are pending. Despite an increase in urine output, blood urea nitrogen and creatinine remain elevated. The patient remains poorly responsive and remains on a ventilator. There is likely no chance that he will make any weaning parameters for extubation. The patient will continue receiving dialysis likely on an mllwv-[id number]-qmu basis. Three to four times a week. 2. Sepsis with community-acquired pneumonia and influenza. The patient completed a course of antiviral therapy. He now remains on antibiotic therapy. 3. History of severe cardiomyopathy, ejection fraction 40%. This appears to be a new finding. The patient is being followed by Cardiology and remains on ionotropic agents. 4. Acute respiratory failure despite decreased sedation. The patient made no weaning parameters. If nothing changes over the next several days, the patient will likely require a trach. 5. History of severe thrombocytopenia. No evidence for thrombotic thrombocytopenic purpura or hemolytic uremic syndrome. The patient has a long history of Idiopathic thrombocytopenic purpura. He did receive immunoglobulin to help increase his platelet count. He is being followed by Dr. Estevez. Peripheral smear showed no evidence for schistocytes. Fibrin split products were between 10 and 40. 6. History of yyi-rhawnso-zgpexhtte diabetes mellitus. The patient remains on insulin. Glucose control is up and down. 7. History of hypertension, not an issue at present. The patient's blood pressure remains in the normal range. 8. History of chronic obstructive pulmonary disease , currently stable. 9. History of elevated liver enzymes, transaminitis appears to be resolving. Liver ultrasound showed hepatosplenomegaly. PLAN: 1. We will continue dialysis three to four times a week. His next dialysis will either be on 07/13/2018, or perhaps if the patient really remained stable, on 07/14/2018. 2. Continue Dobutrex for ionotropic support. 3. If possible attempt to decrease sedation to see if he can make weaning parameters, but this has been unsuccessful in the last 24 hours. 4. Continue to monitor the platelet count closely and transfuse platelets as necessary. 5. Continue to monitor hemoglobin and transfuse packed red blood cells as necessary. 6. Await return of all serologies including anti-glomerular basement membrane antibody titers. These are still pending. 7. No role for doing a kidney biopsy as the patient is critically ill and this will be technically impossible to do. 8. Discussed with the patient's family. Explained to them we are trying to do our best to reverse the current situation. For the time being, the patient will remain on dialysis from a renal standpoint. Greater than 35 minutes spent in the care of this critically ill patient. Margarito Mcnamara MD
--- NOTE | 2018-07-13 08:37 | PN ---
DATE: 07/11/2018 CARDIOLOGY FOLLOWUP HISTORY OF PRESENT ILLNESS: The patient remains on a ventilator, currently being dialyzed with stable blood pressure of 108 systolic and heart rate is in the 80s. PHYSICAL EXAMINATION: NECK: Negative JVD. LUNGS: Without rales. HEART: S1 and S2. EXTREMITIES: Without change. LABORATORY DATA: Hemoglobin is 8.5 and platelet count remains 36,000. Chemistries; BUN and creatinine 143 and 4.6. IMPRESSION: 1. Respiratory failure. 2. End-stage renal disease. 3. Bilateral pneumonia. 4. Dilated cardiomyopathy. 5. Thrombocytopenia. PLAN: The patient is tolerating dialysis well. Hopefully, after extubation would be appropriate. Benjamin Saxena MD
[2018-07-13] MEDS: diltiaZEM IVPB 100mg in NS 100 ML IV PRN (09:05)
[2018-07-13] MEDS: MEROPENEM 500 MG in NS 500 MG/50 ML BAG IVPB SCH ×2 (09:10→21:18)
--- NOTE | 2018-07-13 09:15 | CP.CCUPN ---
<Ismael Turner - Last Filed: 07/13/18 10:50> CCU Subjective - Physician Review Subjective (Free Text): Ismael Turner PGY-1 Progress Note for ICU Patient seen and evaluated at bedside. Febrile overnight. Responsive and following commands. Off Propofol and Fentanyl drips. Cardizem drip and dobu tamine drip @ 2.5 currently. Heparin given with HD on Friday. Further ROS was unobtainable at this time due to clinical condition. CCU Objective - Vital Signs / Intake & Output Vital Signs (Last 4 hours): Vital Signs Pulse BP Pulse Ox 07/13/18 06:00 122 H 149/80 98 Intake and Output (Last 8hrs): Intake & Output 07/12/18 07/13/18 07/13/18 22:59 06:59 14:59 Intake Total 1856 1714.0 100 Output Total 1400 1700 Balance 456 14.0 100 Weight 88.451 kg Intake: IV 976 914.0 100 ATB 200 140 IVPB 150 Left Wrist 120 R femoral dialysis cath 84 100 dobutamine 84 84 precedex 288 240 Tube Feeding 880 800 Output: Urine 1400 1700 Urethral (Ash) 1400 1700 Stool 0 Other: # Bowel Movements 0 - Physical Exam Head: Positive for: Atraumatic, Normocephalic Pupils: Positive for: PERRL Conjunctiva: Positive for: Normal Mouth: Positive for: Other (OGT in place) Pharnyx: Positive for: Other (Intubated, currently at 50/5/14/450) Respiratory/Chest: Positive for: Wheezes (mild expiratory wheeze noted to anterior miguel b/l, improved), Decreased Breath Sounds, Tachypneic. Negative for: Respiratory Distress Cardiovascular: Positive for: Normal S1, S2, Irregular Rhythm. Negative for: Murmurs Abdomen: Positive for: Distention. Negative for: Tenderness, Peritoneal Signs Back: Positive for: Normal Inspection Upper Extremity: Positive for: Normal Inspection, Other (No motor movement at thsi time to upper extremities). Negative for: Cyanosis, Edema Lower Extremity: Positive for: Edema (2+ pitting edema noted to right lower extremity; chronic diabetic ulcer noted to anterior anderson of left lower extremity ) Neurological: Positive for: GCS=15, CN II-XII Intact Skin: Positive for: Warm, Dry, Normal Color. Negative for: Rashes Psychiatric: Positive for: Alert, Oriented x 3, Normal Insight, Normal Concentration - Medications Active Medications: Active Medications Generic Name Dose Route Start Last Admin Trade Name Freq PRN Reason Stop Dose Admin Acetaminophen 650 mg 07/08/18 18:18 07/13/18 05:00 Tylenol 650mg/20.3ml Solution Ud PO 650 mg Q6H PRN Administration Fever 101F Albuterol/Ipratropium 3 ml 07/03/18 14:00 07/13/18 07:11 Duoneb 3 Mg/0.5 Mg (3 Ml) Ud IH 3 ml [id number] SEEMA Administration Albuterol/Ipratropium 3 ml 07/03/18 11:04 07/11/18 23:55 Duoneb 3 Mg/0.5 Mg (3 Ml) Ud IH 3 ml Q2H PRN Administration Shortness of Breath Digoxin 0.125 mg 07/13/18 14:00 Lanoxin IVP 1400 SEEMA Heparin Sodium (Porcine) 3,000 units 07/11/18 10:09 Heparin IVP ONCE PRN Other Dobutamine HCl/Dextrose 500 mg in 250 mls @ 7.314 mls/hr 07/08/18 10:00 07/12/18 10:06 Dobutamine/Dextrose 5% 500mg/250ml IV 7.314 mls/hr .Q24H PRN Administration Cardiac contractility 2.5 MCG/KG/MIN Dexmedetomidine HCl 400 mcg in 100 mls @ 4.876 mls/hr 07/10/18 07:23 07/13/18 06:28 Precedex 400mcg/100ml IV 1 mcg/kg/hr .[id number] PRN 24.381 mls/hr Agitation Administration Protocol 0.2 MCG/KG/HR Doxycycline Hyclate 100 mg/ 100 mls @ 100 mls/hr 07/10/18 11:15 07/12/18 21:14 Sodium Chloride IVPB 100 mls/hr Q12 SEEMA Administration Protocol Meropenem/Sodium Chloride 500 mg in 50 mls @ 100 mls/hr 07/10/18 22:00 07/12/18 21:13 Merrem Iv 500 Mg/Ns 50 Ml IVPB 07/17/18 23:00 100 mls/hr Q12 SEEMA Administration Protocol diltiaZEM IVPB 100mg in NS 100 mls @ 5 mls/hr 07/11/18 17:41 07/13/18 09:05 Cardizem 100mg In Ns IV 10 mg/hr .Q20H PRN 10 mls/hr TITRATE PER MD ORDER Administration Protocol 5 MG/HR Insulin Detemir 15 unit 07/12/18 10:28 07/12/18 22:40 Levemir SC 15 u HS SEEMA Administration Insulin Human Regular 0 units 07/12/18 11:15 07/13/18 05:25 Humulin R High SC 3 units Q6H SEEMA Administration Protocol Methylprednisolone 60 mg 07/07/18 10:00 07/12/18 10:07 Solu-Medrol IVP 60 mg DAILY SEEMA Administration Pantoprazole Sodium 40 mg 07/03/18 14:15 07/12/18 10:07 Protonix Inj IVP 40 mg DAILY SEEMA Administration - Patient Studies Lab Studies: Microbiology Studies 07/09/18 15:30 Blood Culture - Preliminary Blood NO GROWTH AFTER 3 DAYS 07/09/18 15:00 Blood Culture - Preliminary Blood NO GROWTH AFTER 3 DAYS Lab Studies 07/13/18 07/13/18 07/13/18 Range/Units 06:50 05:53 05:30 WBC (4.5-11.0) 10^3/uL RBC (3.5-6.1) 10^6/uL Hgb (14.0-18.0) g/dL Hct (42.0-52.0) % MCV (80.0-105.0) fl MCH (25.0-35.0) pg MCHC (31.0-37.0) g/dl RDW (11.5-14.5) % Plt Count (120.0-450.0) 10^3/uL Gran % (50.0-68.0) % Lymph % (Auto) (22.0-35.0) % Forest % (Auto) (1.0-6.0) % Eos % (Auto) (1.5-5.0) % Baso % (Auto) (0.0-3.0) % Gran # (1.4-6.5) Lymph # (Auto) (1.2-3.4) Forest # (Auto) (0.1-0.6) Eos # (Auto) (0.0-0.7) Baso # (Auto) (0.0-2.0) K/mm3 pCO2 36 (35-45) mm/Hg pO2 161.0 H (80-100) mm/Hg HCO3 21.8 (21-28) mmol/L ABG pH 7.39 (7.35-7.45) ABG Total CO2 22.9 (22-28) mmol.L ABG O2 Saturation 100.0 H (95-98) % ABG O2 Content 9.9 L (15-23) ML/dl ABG Base Excess -2.9 L (-2.0-3.0) mmol/L ABG Hemoglobin 6.9 L (11.7-17.4) g/dL ABG Carboxyhemoglobin 1.6 H (0.5-1.5) % POC ABG HHb (Measured) 0 (0-5) % ABG Methemoglobin 0.3 (0.0-3.0) % ABG O2 Capacity 9.9 L (16-24) mL/dl Hgb O2 Saturation 98.1 H (95.0-98.0) % FiO2 50.0 % Sodium 147 (132-148) mmol/L Potassium 4.7 (3.6-5.0) mmol/L Chloride 116 H (98-107) mmol/L Carbon Dioxide 24 (21-33) mmol/L Anion Gap 11 (10-20) BUN 127 H* (7-21) mg/dL Creatinine 3.0 H (0.8-1.5) mg/dl Est GFR ( Amer) 26 Est GFR (Non-Af Amer) 21 POC Glucose (mg/dL) 359 H (65-110) mg/dL Random Glucose 392 H* (70-110) mg/dL Calcium 8.2 L (8.4-10.5) mg/dL Phosphorus 4.6 H (2.5-4.5) mg/dL Magnesium 2.5 H (1.7-2.2) mg/dL Total Bilirubin 1.1 (0.2-1.3) mg/dL AST 45 (17-59) U/L ALT 124 H (7-56) U/L Alkaline Phosphatase 76 (38-126) U/L Total Protein 6.9 (5.8-8.3) g/dL Albumin 3.1 (3.0-4.8) g/dL Globulin 3.8 gm/dL Albumin/Globulin Ratio 0.8 L (1.1-1.8) Digoxin (0.8-2.0) ng/mL Crossmatch 07/13/18 07/13/18 07/12/18 Range/Units 05:30 05:30 23:21 WBC 13.2 H D (4.5-11.0) 10^3/uL RBC 3.19 L (3.5-6.1) 10^6/uL Hgb 8.3 L (14.0-18.0) g/dL Hct 26.9 L (42.0-52.0) % MCV 84.3 (80.0-105.0) fl MCH 26.0 (25.0-35.0) pg MCHC 30.9 L (31.0-37.0) g/dl RDW 16.6 H (11.5-14.5) % Plt Count 49 L* (120.0-450.0) 10^3/uL Gran % 91.7 H (50.0-68.0) % Lymph % (Auto) 6.7 L (22.0-35.0) % Forest % (Auto) 1.6 (1.0-6.0) % Eos % (Auto) 0.0 L (1.5-5.0) % Baso % (Auto) 0.0 (0.0-3.0) % Gran # 12.08 H (1.4-6.5) Lymph # (Auto) 0.9 L (1.2-3.4) Forest # (Auto) 0.2 (0.1-0.6) Eos # (Auto) 0.0 (0.0-0.7) Baso # (Auto) 0.00 (0.0-2.0) K/mm3 pCO2 (35-45) mm/Hg pO2 (80-100) mm/Hg HCO3 (21-28) mmol/L ABG pH (7.35-7.45) ABG Total CO2 (22-28) mmol.L ABG O2 Saturation (95-98) % ABG O2 Content (15-23) ML/dl ABG Base Excess (-2.0-3.0) mmol/L ABG Hemoglobin (11.7-17.4) g/dL ABG Carboxyhemoglobin (0.5-1.5) % POC ABG HHb (Measured) (0-5) % ABG Methemoglobin (0.0-3.0) % ABG O2 Capacity (16-24) mL/dl Hgb O2 Saturation (95.0-98.0) % FiO2 % Sodium (132-148) mmol/L Potassium (3.6-5.0) mmol/L Chloride (98-107) mmol/L Carbon Dioxide (21-33) mmol/L Anion Gap (10-20) BUN (7-21) mg/dL Creatinine (0.8-1.5) mg/dl Est GFR ( Amer) Est GFR (Non-Af Amer) POC Glucose (mg/dL) 337 H (65-110) mg/dL Random Glucose (70-110) mg/dL Calcium (8.4-10.5) mg/dL Phosphorus (2.5-4.5) mg/dL Magnesium (1.7-2.2) mg/dL Total Bilirubin (0.2-1.3) mg/dL AST (17-59) U/L ALT (7-56) U/L Alkaline Phosphatase (38-126) U/L Total Protein (5.8-8.3) g/dL Albumin (3.0-4.8) g/dL Globulin gm/dL Albumin/Globulin Ratio (1.1-1.8) Digoxin 0.8 (0.8-2.0) ng/mL Crossmatch 07/12/18 07/12/18 07/12/18 Range/Units 17:47 11:52 09:45 WBC (4.5-11.0) 10^3/uL RBC (3.5-6.1) 10^6/uL Hgb (14.0-18.0) g/dL Hct (42.0-52.0) % MCV (80.0-105.0) fl MCH (25.0-35.0) pg MCHC (31.0-37.0) g/dl RDW (11.5-14.5) % Plt Count (120.0-450.0) 10^3/uL Gran % (50.0-68.0) % Lymph % (Auto) (22.0-35.0) % Forest % (Auto) (1.0-6.0) % Eos % (Auto) (1.5-5.0) % Baso % (Auto) (0.0-3.0) % Gran # (1.4-6.5) Lymph # (Auto) (1.2-3.4) Forest # (Auto) (0.1-0.6) Eos # (Auto) (0.0-0.7) Baso # (Auto) (0.0-2.0) K/mm3 pCO2 34 L (35-45) mm/Hg pO2 157.0 H (80-100) mm/Hg HCO3 22.1 (21-28) mmol/L ABG pH 7.42 (7.35-7.45) ABG Total CO2 23.1 (22-28) mmol.L ABG O2 Saturation 99.6 H (95-98) % ABG O2 Content 13.1 L (15-23) ML/dl ABG Base Excess -2.0 (-2.0-3.0) mmol/L ABG Hemoglobin 9.3 L (11.7-17.4) g/dL ABG Carboxyhemoglobin 1.6 H (0.5-1.5) % POC ABG HHb (Measured) 0.4 (0-5) % ABG Methemoglobin 0.5 (0.0-3.0) % ABG O2 Capacity 13.2 L (16-24) mL/dl Hgb O2 Saturation 97.5 (95.0-98.0) % FiO2 50.0 % Sodium (132-148) mmol/L Potassium (3.6-5.0) mmol/L Chloride (98-107) mmol/L Carbon Dioxide (21-33) mmol/L Anion Gap (10-20) BUN (7-21) mg/dL Creatinine (0.8-1.5) mg/dl Est GFR ( Amer) Est GFR (Non-Af Amer) POC Glucose (mg/dL) 331 H 395 H (65-110) mg/dL Random Glucose (70-110) mg/dL Calcium (8.4-10.5) mg/dL Phosphorus (2.5-4.5) mg/dL Magnesium (1.7-2.2) mg/dL Total Bilirubin (0.2-1.3) mg/dL AST (17-59) U/L ALT (7-56) U/L Alkaline Phosphatase (38-126) U/L Total Protein (5.8-8.3) g/dL Albumin (3.0-4.8) g/dL Globulin gm/dL Albumin/Globulin Ratio (1.1-1.8) Digoxin (0.8-2.0) ng/mL Crossmatch 07/12/18 07/08/18 Range/Units 07:39 14:30 WBC (4.5-11.0) 10^3/uL RBC (3.5-6.1) 10^6/uL Hgb (14.0-18.0) g/dL Hct (42.0-52.0) % MCV (80.0-105.0) fl MCH (25.0-35.0) pg MCHC (31.0-37.0) g/dl RDW (11.5-14.5) % Plt Count (120.0-450.0) 10^3/uL Gran % (50.0-68.0) % Lymph % (Auto) (22.0-35.0) % Forest % (Auto) (1.0-6.0) % Eos % (Auto) (1.5-5.0) % Baso % (Auto) (0.0-3.0) % Gran # (1.4-6.5) Lymph # (Auto) (1.2-3.4) Forest # (Auto) (0.1-0.6) Eos # (Auto) (0.0-0.7) Baso # (Auto) (0.0-2.0) K/mm3 pCO2 (35-45) mm/Hg pO2 (80-100) mm/Hg HCO3 (21-28) mmol/L ABG pH (7.35-7.45) ABG Total CO2 (22-28) mmol.L ABG O2 Saturation (95-98) % ABG O2 Content (15-23) ML/dl ABG Base Excess (-2.0-3.0) mmol/L ABG Hemoglobin (11.7-17.4) g/dL ABG Carboxyhemoglobin (0.5-1.5) % POC ABG HHb (Measured) (0-5) % ABG Methemoglobin (0.0-3.0) % ABG O2 Capacity (16-24) mL/dl Hgb O2 Saturation (95.0-98.0) % FiO2 % Sodium (132-148) mmol/L Potassium (3.6-5.0) mmol/L Chloride (98-107) mmol/L Carbon Dioxide (21-33) mmol/L Anion Gap (10-20) BUN (7-21) mg/dL Creatinine (0.8-1.5) mg/dl Est GFR ( Amer) Est GFR (Non-Af Amer) POC Glucose (mg/dL) 375 H (65-110) mg/dL Random Glucose (70-110) mg/dL Calcium (8.4-10.5) mg/dL Phosphorus (2.5-4.5) mg/dL Magnesium (1.7-2.2) mg/dL Total Bilirubin (0.2-1.3) mg/dL AST (17-59) U/L ALT (7-56) U/L Alkaline Phosphatase (38-126) U/L Total Protein (5.8-8.3) g/dL Albumin (3.0-4.8) g/dL Globulin gm/dL Albumin/Globulin Ratio (1.1-1.8) Digoxin (0.8-2.0) ng/mL Crossmatch See Detail Laboratory Results - last 24 hr 07/08/18 07/12/18 07/12/18 14:30 07:39 09:45 WBC RBC Hgb Hct MCV MCH MCHC RDW Plt Count Gran % Lymph % (Auto) Forest % (Auto) Eos % (Auto) Baso % (Auto) Gran # Lymph # (Auto) Forest # (Auto) Eos # (Auto) Baso # (Auto) pCO2 34 L pO2 157.0 H HCO3 22.1 ABG pH 7.42 ABG Total CO2 23.1 ABG O2 Saturation 99.6 H ABG O2 Content 13.1 L ABG Base Excess -2.0 ABG Hemoglobin 9.3 L ABG Carboxyhemoglobin 1.6 H POC ABG HHb (Measured) 0.4 ABG Methemoglobin 0.5 ABG O2 Capacity 13.2 L Hgb O2 Saturation 97.5 FiO2 50.0 Sodium Potassium Chloride Carbon Dioxide Anion Gap BUN Creatinine Est GFR ( Amer) Est GFR (Non-Af Amer) POC Glucose (mg/dL) 375 H Random Glucose Calcium Phosphorus Magnesium Total Bilirubin AST ALT Alkaline Phosphatase Total Protein Albumin Globulin Albumin/Globulin Ratio Digoxin Crossmatch See Detail 07/12/18 07/12/18 07/12/18 11:52 17:47 23:21 WBC RBC Hgb Hct MCV MCH MCHC RDW Plt Count Gran % Lymph % (Auto) Forest % (Auto) Eos % (Auto) Baso % (Auto) Gran # Lymph # (Auto) Forest # (Auto) Eos # (Auto) Baso # (Auto) pCO2 pO2 HCO3 ABG pH ABG Total CO2 ABG O2 Saturation ABG O2 Content ABG Base Excess ABG Hemoglobin ABG Carboxyhemoglobin POC ABG HHb (Measured) ABG Methemoglobin ABG O2 Capacity Hgb O2 Saturation FiO2 Sodium Potassium Chloride Carbon Dioxide Anion Gap BUN Creatinine Est GFR ( Amer) Est GFR (Non-Af Amer) POC Glucose (mg/dL) 395 H 331 H 337 H Random Glucose Calcium Phosphorus Magnesium Total Bilirubin AST ALT Alkaline Phosphatase Total Protein Albumin Globulin Albumin/Globulin Ratio Digoxin Crossmatch 07/13/18 07/13/18 07/13/18 05:30 05:30 05:30 WBC 13.2 H D RBC 3.19 L Hgb 8.3 L Hct 26.9 L MCV 84.3 MCH 26.0 MCHC 30.9 L RDW 16.6 H Plt Count 49 L* Gran % 91.7 H Lymph % (Auto) 6.7 L Forest % (Auto) 1.6 Eos % (Auto) 0.0 L Baso % (Auto) 0.0 Gran # 12.08 H Lymph # (Auto) 0.9 L Forest # (Auto) 0.2 Eos # (Auto) 0.0 Baso # (Auto) 0.00 pCO2 pO2 HCO3 ABG pH ABG Total CO2 ABG O2 Saturation ABG O2 Content ABG Base Excess ABG Hemoglobin ABG Carboxyhemoglobin POC ABG HHb (Measured) ABG Methemoglobin ABG O2 Capacity Hgb O2 Saturation FiO2 Sodium 147 Potassium 4.7 Chloride 116 H Carbon Dioxide 24 Anion Gap 11 BUN 127 H* Creatinine 3.0 H Est GFR ( Amer) 26 Est GFR (Non-Af Amer) 21 POC Glucose (mg/dL) Random Glucose 392 H* Calcium 8.2 L Phosphorus 4.6 H Magnesium 2.5 H Total Bilirubin 1.1 AST 45 ALT 124 H Alkaline Phosphatase 76 Total Protein 6.9 Albumin 3.1 Globulin 3.8 Albumin/Globulin Ratio 0.8 L Digoxin 0.8 Crossmatch 07/13/18 07/13/18 05:53 06:50 WBC RBC Hgb Hct MCV MCH MCHC RDW Plt Count Gran % Lymph % (Auto) Forest % (Auto) Eos % (Auto) Baso % (Auto) Gran # Lymph # (Auto) Forest # (Auto) Eos # (Auto) Baso # (Auto) pCO2 36 pO2 161.0 H HCO3 21.8 ABG pH 7.39 ABG Total CO2 22.9 ABG O2 Saturation 100.0 H ABG O2 Content 9.9 L ABG Base Excess -2.9 L ABG Hemoglobin 6.9 L ABG Carboxyhemoglobin 1.6 H POC ABG HHb (Measured) 0 ABG Methemoglobin 0.3 ABG O2 Capacity 9.9 L Hgb O2 Saturation 98.1 H FiO2 50.0 Sodium Potassium Chloride Carbon Dioxide Anion Gap BUN Creatinine Est GFR ( Amer) Est GFR (Non-Af Amer) POC Glucose (mg/dL) 359 H Random Glucose Calcium Phosphorus Magnesium Total Bilirubin AST ALT Alkaline Phosphatase Total Protein Albumin Globulin Albumin/Globulin Ratio Digoxin Crossmatch Radiology Impressions: Radiology Impressions Chest X-Ray 07/12/18 06:00 IMPRESSION: Vascular congestion with mild perihilar edema. No significant change Fingerstick Blood Sugar Results: 359 Review of Systems - Review of Systems Review of Systems: 12 point ROS unable to be ascertained due to clinical condition. Critical Care Progress Note - Nutrition Nutrition: Nutrition Category Date Time Status NPO Diet [DIET] Diets 07/06/18 Breakfast Ordered Assessment/Plan - Assessment and Plan (Free Text) Assessment: 62yo male with PMHx of COPD, active smoker 1pk per day, HTN, DM, PVD, presents with ER with 2 day history of fever, chills, associated with cough that is non- productive. Yesterday, patient also developed SOB. Pt denies sick contacts, recent travel, CP, palpitations, CARTY, dizziness. In the ER, patient was noted to be hypoxic at 78%, on 2L NC, subsequently placed on BIPAP. No other constitutional symptoms. Pt was found to have increased work of breathing, RR 35-40, subsequently intubated. Placed on low tidal vol. ventilation. Patient was initially started on heparin drip given elevated troponin, and markedly diminished EF. Hep drip currently held secondary to thrombocytopenia. Initially paralyzed on Nimbex after overbreathing ventilator. Currently in MODS. Fevers overnight Tmax 101.8. Cardizem drip at 10. Dobutamine drip at 2.5mcg/kg. Precedex. Tolerated HD yesterday and plan for HD tomorrow. Neuro: - F/u MRI brain without contrast - F/u results of EEG 07/10/18 - Neuro consult - Dr. Harvinder burrows appreciated - 07/10/18 CT head without contrast negative - AAOx0, continue on sedation. - Pt. responds to painful stimuli - Continue to monitor Pulm CAP and Flu A + 07/08/18 ABG shows resp. acidosis 07/08/18 CXR shows improved ARDS 07/09/18 CXR shows improving ARDS on R side 07/09/18 ABG shows P/F ratio 333, exhibiting improved oxygenation and outside ARDS criteria 07/10/18 ABG shows P/F ratio of 203, coming down on FiO2 to 40% 07/10/18 CXR shows improved aeration. 07/13/18 ABG shows improvement 07/13/18 CXR shows Vascular congestion with mild perihilar edema. F/U final read. Vent settings 50/5/14/450 - Continue Precedex drip - Duonebs seema q6 and PRN q2 - Decrease Solumedrol to 20mg IV BID - Abx: Continue Vanc, Merrem 500 BID and Doxycycline per ID - Urine Lg and Strep negative - Procal 4.85, repeat 5.96, 3rd pending - ID eval: Dr. Fernandes - markos appreciated - Pulm consulted - markos Lance appreciated - Resp therapy Cardio HFrEF - BNP [id number], although CXR only shows one sided infilatrate - 07/03/18 echo report shows EF 14.2%, mildly dilated LV, systolic function severely impaired, akinetic septum, moderate TR and pulm HTN - Continue Dobutamine drip to 2.5 mcg for inotropic support per cardiac recs NSTEMI - Trop 0.48, 0.67, 0.67 - Cardiology consulted - Dr. Saxena. Cardiac cath on hold due to persistent thrombocytopenia. Hold Lasix per cardio. Further recs appreciated. - Cardizem and Dig for A fib - Hold IVF d/t poor EF. - Hold Heparin drip - 07/07/18 EKG showed sinus tach - 07/08/18 EKG shows NSR, no ST or T wave changes, LVH - 07/09/18 EKG shows NSR @ 82 bpm, LVH - 07/10/18 EKG shows NSR @ 82 bpm, LVH, no peaked T waves Chronic Thrombocytopenia, ITP - Has received frequent intermittent transfusions as outpatient per medical record - PLT 49 - HIT Antibody negative - Hem consult placed- Dr. Estevez. 4 unit PLT transfused. IV gammaglobulin 5 day course completed. Plan to run 1000 units of Heparin with HD. Further recs appreciated per Dr. Estevez. - F/u CRP, IVONE and ANCA studies - 07/08/18 Peripheral smear shows no atypical cells or immature forms. Mild anisopoikilocytosis. No schistocytes. No PL clumping although markedly reduced. - ESR 45 - Split products >10 but <40 Stable Normocytic Anemia - Hgb 8.3 this AM, no obvious sign of bleed GI - NGT in place Uncontrolled DM - Hgb a1c 8.2, accuchecks ACHS - Levemir 15 units HS - Diabetic education Lipid panel - TG elevated at 172 Shock liver Transaminitis AST /ALT 307/224 > 543/409> 592/570> 717/746> 558/687> 270/476, normal Alk Phos. Hold hepatotoxic drugs Hep panel negative - 07/03/18 RUQ U/S shows hepatosplenomegaly PTX for Ppx Nephro OG on HD - Tolerated first HD 07/07/18 s/p triple lumen catheter in L femoral vein. Replaced in R femoral vein after clot - Currently holding IVF and Diuretics per cardio. Nephro input appreciated - Strict Is and Os. Output has decreased over last 3 days. - Ash in place. - Not candidate for kidney biopsy at this time due to inability to tolerate procedure - Nephro consult - recs appreciated HD planned for today- Performed with Dr. Naima SILVERIO - Wound care consulted - Podiatry consulted- Dr. Richardson- recs appreciated- no acute intervention at this time. Has signed off. - OT/PT eval ID - Fever overnight, Resolved Leukocytosis 13.2 on Merrem, Doxy - F/U ammonia level and repeat procal - Rapid influenza A positive > Tamiflu course completed - ID eval: Dr. Fernandes - further recs appreciated for 10 day course of ABx - 1 dose Vanc given 07/05/18 and 07/06/18. Dose given 07/13/18. - Sputum cx shows yeast species, blood cx neg after 5 days, f/u repeat UA - GI ppx: PTX - DVT ppx: Hep drip held in light of thrombocytopenia, Heparin with HD Patient seen,case reviewed and plan approved by Dr. Sung. Ismael Turner, PGY-1 <Golden Sung - Last Filed: 07/13/18 15:52> CCU Objective - Vital Signs / Intake & Output Intake and Output (Last 8hrs): Intake & Output 07/13/18 07/13/18 07/13/18 06:59 14:59 22:59 Intake Total 1714.0 150 Output Total 1700 Balance 14.0 150 Weight 195 lb Intake: IV 914.0 150 ATB 140 IVPB 150 R femoral dialysis cath 100 dobutamine 84 precedex 240 Tube Feeding 800 Output: Urine 1700 Urethral (Ash) 1700 Other: # Bowel Movements 0 - Medications Active Medications: Active Medications Generic Name Dose Route Start Last Admin Trade Name Freq PRN Reason Stop Dose Admin Acetaminophen 650 mg 07/08/18 18:18 07/13/18 05:00 Tylenol 650mg/20.3ml Solution Ud PO 650 mg Q6H PRN Administration Fever 101F Albuterol/Ipratropium 3 ml 07/03/18 14:00 07/13/18 13:47 Duoneb 3 Mg/0.5 Mg (3 Ml) Ud IH 3 ml [id number] SEEMA Administration Albuterol/Ipratropium 3 ml 07/03/18 11:04 07/11/18 23:55 Duoneb 3 Mg/0.5 Mg (3 Ml) Ud IH 3 ml Q2H PRN Administration Shortness of Breath Digoxin 0.125 mg 07/13/18 14:00 07/13/18 14:22 Lanoxin IVP 0.125 mg 1400 SEEMA Administration Heparin Sodium (Porcine) 3,000 units 07/11/18 10:09 Heparin IVP ONCE PRN Other Dexmedetomidine HCl 400 mcg in 100 mls @ 4.876 mls/hr 07/10/18 07:23 07/13/18 09:13 Precedex 400mcg/100ml IV 0.8 mcg/kg/hr .[id number] PRN 19.504 mls/hr Agitation Titration Protocol 0.2 MCG/KG/HR Meropenem/Sodium Chloride 500 mg in 50 mls @ 100 mls/hr 07/10/18 22:00 07/13/18 09:10 Merrem Iv 500 Mg/Ns 50 Ml IVPB 07/17/18 23:00 100 mls/hr Q12 SEEMA Administration Protocol [id number] IVPB 100mg in NS 100 mls @ 5 mls/hr 07/11/18 17:41 07/13/18 09:05 Cardizem 100mg In Ns IV 10 mg/hr .Q20H PRN 10 mls/hr TITRATE PER MD ORDER Administration Protocol 5 MG/HR Doxycycline Hyclate 100 mg/ 100 mls @ 100 mls/hr 07/13/18 11:30 07/13/18 12:18 Sodium Chloride IVPB Not Given Q12 [facility] Protocol Insulin Detemir 20 unit 07/13/18 10:18 Levemir SC HS [facility] Insulin Human Regular 0 units 07/12/18 11:15 07/13/18 12:30 Humulin R High SC 15 units Q6H [facility] Administration Protocol Methylprednisolone 20 mg 07/13/18 22:00 Solu-Medrol IVP Q12 [facility] Pantoprazole Sodium 40 mg 07/03/18 14:15 07/13/18 09:22 Protonix Inj IVP 40 mg DAILY [facility] Administration - Patient Studies Lab Studies: Microbiology Studies 07/09/18 15:30 Blood Culture - Preliminary Blood NO GROWTH AFTER 4 DAYS 07/09/18 15:00 Blood Culture - Preliminary Blood NO GROWTH AFTER 4 DAYS Lab Studies 07/13/18 07/13/18 07/13/18 Range/Units 12:07 11:30 07:28 WBC (4.5-11.0) 10^3/uL RBC (3.5-6.1) 10^6/uL Hgb (14.0-18.0) g/dL Hct (42.0-52.0) % MCV (80.0-105.0) fl MCH (25.0-35.0) pg MCHC (31.0-37.0) g/dl RDW (11.5-14.5) % Plt Count (120.0-450.0) 10^3/uL Gran % (50.0-68.0) % Lymph % (Auto) (22.0-35.0) % [place] % (Auto) (1.0-6.0) % Eos % (Auto) (1.5-5.0) % Baso % (Auto) (0.0-3.0) % Gran # (1.4-6.5) Lymph # (Auto) (1.2-3.4) [place] # (Auto) (0.1-0.6) Eos # (Auto) (0.0-0.7) Baso # (Auto) (0.0-2.0) K/mm3 pCO2 (35-45) mm/Hg pO2 (80-100) mm/Hg HCO3 (21-28) mmol/L ABG pH (7.35-7.45) ABG Total CO2 (22-28) mmol.L ABG O2 Saturation (95-98) % ABG O2 Content (15-23) ML/dl ABG Base Excess (-2.0-3.0) mmol/L ABG Hemoglobin (11.7-17.4) g/dL ABG Carboxyhemoglobin (0.5-1.5) % POC ABG HHb (Measured) (0-5) % ABG Methemoglobin (0.0-3.0) % ABG O2 Capacity (16-24) mL/dl Hgb O2 Saturation (95.0-98.0) % FiO2 % Sodium (132-148) mmol/L Potassium (3.6-5.0) mmol/L Chloride (98-107) mmol/L Carbon Dioxide (21-33) mmol/L Anion Gap (10-20) BUN (7-21) mg/dL Creatinine (0.8-1.5) mg/dl Est GFR ( Amer) Est GFR (Non-Af Amer) POC Glucose (mg/dL) 370 H (65-110) mg/dL Random Glucose (70-110) mg/dL Calcium (8.4-10.5) mg/dL Phosphorus (2.5-4.5) mg/dL Magnesium (1.7-2.2) mg/dL Total Bilirubin (0.2-1.3) mg/dL AST (17-59) U/L ALT (7-56) U/L Alkaline Phosphatase (38-126) U/L Ammonia < 9 L (9-33) umol/L Total Protein (5.8-8.3) g/dL Albumin (3.0-4.8) g/dL Globulin gm/dL Albumin/Globulin Ratio (1.1-1.8) Urine Color Yellow (YELLOW) Urine Appearance Clear (CLEAR) Urine pH 6.0 (4.7-8.0) Ur Specific [place] 1.020 (1.005-1.035) Urine Protein 30 H (<30 mg/dL) mg/dL Urine Glucose (UA) >=1000 (NEGATIVE) mg/dL Urine Ketones Negative (NEGATIVE) mg/dL Urine Blood Moderate H (NEGATIVE) Urine Nitrate Negative (NEGATIVE) Urine Bilirubin Negative (NEGATIVE) Urine Urobilinogen 0.2 (<1 E.U./dL) E.U./dL Ur Leukocyte Esterase Negative (NEGATIVE) Dani/uL Urine RBC 15 - 20 H (0-2) /hpf Urine WBC 0 - 2 (0-6) /hpf Ur Epithelial Cells None (0-5) /hpf Amorphous Sediment Few (NONE) /hpf Urine Bacteria Mod (NONE) /hpf Digoxin (0.8-2.0) ng/mL Crossmatch 07/13/18 07/13/18 07/13/18 Range/Units 06:50 05:53 05:30 WBC (4.5-11.0) 10^3/uL RBC (3.5-6.1) 10^6/uL Hgb (14.0-18.0) g/dL Hct (42.0-52.0) % MCV (80.0-105.0) fl MCH (25.0-35.0) pg MCHC (31.0-37.0) g/dl RDW (11.5-14.5) % Plt Count (120.0-450.0) 10^3/uL Gran % (50.0-68.0) % Lymph % (Auto) (22.0-35.0) % [place] % (Auto) (1.0-6.0) % Eos % (Auto) (1.5-5.0) % Baso % (Auto) (0.0-3.0) % Gran # (1.4-6.5) Lymph # (Auto) (1.2-3.4) [place] # (Auto) (0.1-0.6) Eos # (Auto) (0.0-0.7) Baso # (Auto) (0.0-2.0) K/mm3 pCO2 36 (35-45) mm/Hg pO2 161.0 H (80-100) mm/Hg HCO3 21.8 (21-28) mmol/L ABG pH 7.39 (7.35-7.45) ABG Total CO2 22.9 (22-28) mmol.L ABG O2 Saturation 100.0 H (95-98) % ABG O2 Content 9.9 L (15-23) ML/dl ABG Base Excess -2.9 L (-2.0-3.0) mmol/L ABG Hemoglobin 6.9 L (11.7-17.4) g/dL ABG Carboxyhemoglobin 1.6 H (0.5-1.5) % POC ABG HHb (Measured) 0 (0-5) % ABG Methemoglobin 0.3 (0.0-3.0) % ABG O2 Capacity 9.9 L (16-24) mL/dl Hgb O2 Saturation 98.1 H (95.0-98.0) % FiO2 50.0 % Sodium 147 (132-148) mmol/L Potassium 4.7 (3.6-5.0) mmol/L Chloride 116 H (98-107) mmol/L Carbon Dioxide 24 (21-33) mmol/L Anion Gap 11 (10-20) BUN 127 H* (7-21) mg/dL Creatinine 3.0 H (0.8-1.5) mg/dl Est GFR ( Amer) 26 Est GFR (Non-Af Amer) 21 POC Glucose (mg/dL) 359 H (65-110) mg/dL Random Glucose 392 H* (70-110) mg/dL Calcium 8.2 L (8.4-10.5) mg/dL Phosphorus 4.6 H (2.5-4.5) mg/dL Magnesium 2.5 H (1.7-2.2) mg/dL Total Bilirubin 1.1 (0.2-1.3) mg/dL AST 45 (17-59) U/L ALT 124 H (7-56) U/L Alkaline Phosphatase 76 (38-126) U/L Ammonia (9-33) umol/L Total Protein 6.9 (5.8-8.3) g/dL Albumin 3.1 (3.0-4.8) g/dL Globulin 3.8 gm/dL Albumin/Globulin Ratio 0.8 L (1.1-1.8) Urine Color (YELLOW) Urine Appearance (CLEAR) Urine pH (4.7-8.0) Ur Specific [place] (1.005-1.035) Urine Protein (<30 mg/dL) mg/dL Urine Glucose (UA) (NEGATIVE) mg/dL Urine Ketones (NEGATIVE) mg/dL Urine Blood (NEGATIVE) Urine Nitrate (NEGATIVE) Urine Bilirubin (NEGATIVE) Urine Urobilinogen (<1 E.U./dL) E.U./dL Ur Leukocyte Esterase (NEGATIVE) Dani/uL Urine RBC (0-2) /hpf Urine WBC (0-6) /hpf Ur Epithelial Cells (0-5) /hpf Amorphous Sediment (NONE) /hpf Urine Bacteria (NONE) /hpf Digoxin (0.8-2.0) ng/mL Crossmatch 07/13/18 07/13/18 07/12/18 Range/Units 05:30 05:30 23:21 WBC 13.2 H D (4.5-11.0) 10^3/uL RBC 3.19 L (3.5-6.1) 10^6/uL Hgb 8.3 L (14.0-18.0) g/dL Hct 26.9 L (42.0-52.0) % MCV 84.3 (80.0-105.0) fl MCH 26.0 (25.0-35.0) pg MCHC 30.9 L (31.0-37.0) g/dl RDW 16.6 H (11.5-14.5) % Plt Count 49 L* (120.0-450.0) 10^3/uL Gran % 91.7 H (50.0-68.0) % Lymph % (Auto) 6.7 L (22.0-35.0) % [place] % (Auto) 1.6 (1.0-6.0) % Eos % (Auto) 0.0 L (1.5-5.0) % Baso % (Auto) 0.0 (0.0-3.0) % Gran # 12.08 H (1.4-6.5) Lymph # (Auto) 0.9 L (1.2-3.4) [place] # (Auto) 0.2 (0.1-0.6) Eos # (Auto) 0.0 (0.0-0.7) Baso # (Auto) 0.00 (0.0-2.0) K/mm3 pCO2 (35-45) mm/Hg pO2 (80-100) mm/Hg HCO3 (21-28) mmol/L ABG pH (7.35-7.45) ABG Total CO2 (22-28) mmol.L ABG O2 Saturation (95-98) % ABG O2 Content (15-23) ML/dl ABG Base Excess (-2.0-3.0) mmol/L ABG Hemoglobin (11.7-17.4) g/dL ABG Carboxyhemoglobin (0.5-1.5) % POC ABG HHb (Measured) (0-5) % ABG Methemoglobin (0.0-3.0) % ABG O2 Capacity (16-24) mL/dl Hgb O2 Saturation (95.0-98.0) % FiO2 % Sodium (132-148) mmol/L Potassium (3.6-5.0) mmol/L Chloride (98-107) mmol/L Carbon Dioxide (21-33) mmol/L Anion Gap (10-20) BUN (7-21) mg/dL Creatinine (0.8-1.5) mg/dl Est GFR ( Amer) Est GFR (Non-Af Amer) POC Glucose (mg/dL) 337 H (65-110) mg/dL Random Glucose (70-110) mg/dL Calcium (8.4-10.5) mg/dL Phosphorus (2.5-4.5) mg/dL Magnesium (1.7-2.2) mg/dL Total Bilirubin (0.2-1.3) mg/dL AST (17-59) U/L ALT (7-56) U/L Alkaline Phosphatase (38-126) U/L Ammonia (9-33) umol/L Total Protein (5.8-8.3) g/dL Albumin (3.0-4.8) g/dL Globulin gm/dL Albumin/Globulin Ratio (1.1-1.8) Urine Color (YELLOW) Urine Appearance (CLEAR) Urine pH (4.7-8.0) Ur Specific [place] (1.005-1.035) Urine Protein (<30 mg/dL) mg/dL Urine Glucose (UA) (NEGATIVE) mg/dL Urine Ketones (NEGATIVE) mg/dL Urine Blood (NEGATIVE) Urine Nitrate (NEGATIVE) Urine Bilirubin (NEGATIVE) Urine Urobilinogen (<1 E.U./dL) E.U./dL Ur Leukocyte Esterase (NEGATIVE) Dani/uL Urine RBC (0-2) /hpf Urine WBC (0-6) /hpf Ur Epithelial Cells (0-5) /hpf Amorphous Sediment (NONE) /hpf Urine Bacteria (NONE) /hpf Digoxin 0.8 (0.8-2.0) ng/mL Crossmatch 07/12/18 07/12/18 07/12/18 Range/Units 17:47 11:52 07:39 WBC (4.5-11.0) 10^3/uL RBC (3.5-6.1) 10^6/uL Hgb (14.0-18.0) g/dL Hct (42.0-52.0) % MCV (80.0-105.0) fl MCH (25.0-35.0) pg MCHC (31.0-37.0) g/dl RDW (11.5-14.5) % Plt Count (120.0-450.0) 10^3/uL Gran % (50.0-68.0) % Lymph % (Auto) (22.0-35.0) % [place] % (Auto) (1.0-6.0) % Eos % (Auto) (1.5-5.0) % Baso % (Auto) (0.0-3.0) % Gran # (1.4-6.5) Lymph # (Auto) (1.2-3.4) [place] # (Auto) (0.1-0.6) Eos # (Auto) (0.0-0.7) Baso # (Auto) (0.0-2.0) K/mm3 pCO2 (35-45) mm/Hg pO2 (80-100) mm/Hg HCO3 (21-28) mmol/L ABG pH (7.35-7.45) ABG Total CO2 (22-28) mmol.L ABG O2 Saturation (95-98) % ABG O2 Content (15-23) ML/dl ABG Base Excess (-2.0-3.0) mmol/L ABG Hemoglobin (11.7-17.4) g/dL ABG Carboxyhemoglobin (0.5-1.5) % POC ABG HHb (Measured) (0-5) % ABG Methemoglobin (0.0-3.0) % ABG O2 Capacity (16-24) mL/dl Hgb O2 Saturation (95.0-98.0) % FiO2 % Sodium (132-148) mmol/L Potassium (3.6-5.0) mmol/L Chloride (98-107) mmol/L Carbon Dioxide (21-33) mmol/L Anion Gap (10-20) BUN (7-21) mg/dL Creatinine (0.8-1.5) mg/dl Est GFR ( Amer) Est GFR (Non-Af Amer) POC Glucose (mg/dL) 331 H 395 H 375 H (65-110) mg/dL Random Glucose (70-110) mg/dL Calcium (8.4-10.5) mg/dL Phosphorus (2.5-4.5) mg/dL Magnesium (1.7-2.2) mg/dL Total Bilirubin (0.2-1.3) mg/dL AST (17-59) U/L ALT (7-56) U/L Alkaline Phosphatase (38-126) U/L Ammonia (9-33) umol/L Total Protein (5.8-8.3) g/dL Albumin (3.0-4.8) g/dL Globulin gm/dL Albumin/Globulin Ratio (1.1-1.8) Urine Color (YELLOW) Urine Appearance (CLEAR) Urine pH (4.7-8.0) Ur Specific [place] (1.005-1.035) Urine Protein (<30 mg/dL) mg/dL Urine Glucose (UA) (NEGATIVE) mg/dL Urine Ketones (NEGATIVE) mg/dL Urine Blood (NEGATIVE) Urine Nitrate (NEGATIVE) Urine Bilirubin (NEGATIVE) Urine Urobilinogen (<1 E.U./dL) E.U./dL Ur Leukocyte Esterase (NEGATIVE) Dani/uL Urine RBC (0-2) /hpf Urine WBC (0-6) /hpf Ur Epithelial Cells (0-5) /hpf Amorphous Sediment (NONE) /hpf Urine Bacteria (NONE) /hpf Digoxin (0.8-2.0) ng/mL Crossmatch 07/08/18 Range/Units 14:30 WBC (4.5-11.0) 10^3/uL RBC (3.5-6.1) 10^6/uL Hgb (14.0-18.0) g/dL Hct (42.0-52.0) % MCV (80.0-105.0) fl MCH (25.0-35.0) pg MCHC (31.0-37.0) g/dl RDW (11.5-14.5) % Plt Count (120.0-450.0) 10^3/uL Gran % (50.0-68.0) % Lymph % (Auto) (22.0-35.0) % [place] % (Auto) (1.0-6.0) % Eos % (Auto) (1.5-5.0) % Baso % (Auto) (0.0-3.0) % Gran # (1.4-6.5) Lymph # (Auto) (1.2-3.4) [place] # (Auto) (0.1-0.6) Eos # (Auto) (0.0-0.7) Baso # (Auto) (0.0-2.0) K/mm3 pCO2 (35-45) mm/Hg pO2 (80-100) mm/Hg HCO3 (21-28) mmol/L ABG pH (7.35-7.45) ABG Total CO2 (22-28) mmol.L ABG O2 Saturation (95-98) % ABG O2 Content (15-23) ML/dl ABG Base Excess (-2.0-3.0) mmol/L ABG Hemoglobin (11.7-17.4) g/dL ABG Carboxyhemoglobin (0.5-1.5) % POC ABG HHb (Measured) (0-5) % ABG Methemoglobin (0.0-3.0) % ABG O2 Capacity (16-24) mL/dl Hgb O2 Saturation (95.0-98.0) % FiO2 % Sodium (132-148) mmol/L Potassium (3.6-5.0) mmol/L Chloride (98-107) mmol/L Carbon Dioxide (21-33) mmol/L Anion Gap (10-20) BUN (7-21) mg/dL Creatinine (0.8-1.5) mg/dl Est GFR ( Amer) Est GFR (Non-Af Amer) POC Glucose (mg/dL) (65-110) mg/dL Random Glucose (70-110) mg/dL Calcium (8.4-10.5) mg/dL Phosphorus (2.5-4.5) mg/dL Magnesium (1.7-2.2) mg/dL Total Bilirubin (0.2-1.3) mg/dL AST (17-59) U/L ALT (7-56) U/L Alkaline Phosphatase (38-126) U/L Ammonia (9-33) umol/L Total Protein (5.8-8.3) g/dL Albumin (3.0-4.8) g/dL Globulin gm/dL Albumin/Globulin Ratio (1.1-1.8) Urine Color (YELLOW) Urine Appearance (CLEAR) Urine pH (4.7-8.0) Ur Specific [place] (1.005-1.035) Urine Protein (<30 mg/dL) mg/dL Urine Glucose (UA) (NEGATIVE) mg/dL Urine Ketones (NEGATIVE) mg/dL Urine Blood (NEGATIVE) Urine Nitrate (NEGATIVE) Urine Bilirubin (NEGATIVE) Urine Urobilinogen (<1 E.U./dL) E.U./dL Ur Leukocyte Esterase (NEGATIVE) Dani/uL Urine RBC (0-2) /hpf Urine WBC (0-6) /hpf Ur Epithelial Cells (0-5) /hpf Amorphous Sediment (NONE) /hpf Urine Bacteria (NONE) /hpf Digoxin (0.8-2.0) ng/mL Crossmatch See Detail Laboratory Results - last 24 hr 07/08/18 07/12/18 07/12/18 14:30 07:39 11:52 WBC RBC Hgb Hct MCV MCH MCHC RDW Plt Count Gran % Lymph % (Auto) [place] % (Auto) Eos % (Auto) Baso % (Auto) Gran # Lymph # (Auto) [place] # (Auto) Eos # (Auto) Baso # (Auto) pCO2 pO2 HCO3 ABG pH ABG Total CO2 ABG O2 Saturation ABG O2 Content ABG Base Excess ABG Hemoglobin ABG Carboxyhemoglobin POC ABG HHb (Measured) ABG Methemoglobin ABG O2 Capacity Hgb O2 Saturation FiO2 Sodium Potassium Chloride Carbon Dioxide Anion Gap BUN Creatinine Est GFR ( Amer) Est GFR (Non-Af Amer) POC Glucose (mg/dL) 375 H 395 H Random Glucose Calcium Phosphorus Magnesium Total Bilirubin AST ALT Alkaline Phosphatase Ammonia Total Protein Albumin Globulin Albumin/Globulin Ratio Urine Color Urine Appearance Urine pH Ur Specific [place] Urine Protein Urine Glucose (UA) Urine Ketones Urine Blood Urine Nitrate Urine Bilirubin Urine Urobilinogen Ur Leukocyte Esterase Urine RBC Urine WBC Ur Epithelial Cells Amorphous Sediment Urine Bacteria Digoxin Crossmatch See Detail 07/12/18 07/12/18 07/13/18 17:47 23:21 05:30 WBC RBC Hgb Hct MCV MCH MCHC RDW Plt Count Gran % Lymph % (Auto) [place] % (Auto) Eos % (Auto) Baso % (Auto) Gran # Lymph # (Auto) [place] # (Auto) Eos # (Auto) Baso # (Auto) pCO2 pO2 HCO3 ABG pH ABG Total CO2 ABG O2 Saturation ABG O2 Content ABG Base Excess ABG Hemoglobin ABG Carboxyhemoglobin POC ABG HHb (Measured) ABG Methemoglobin ABG O2 Capacity Hgb O2 Saturation FiO2 Sodium Potassium Chloride Carbon Dioxide Anion Gap BUN Creatinine Est GFR ( Amer) Est GFR (Non-Af Amer) POC Glucose (mg/dL) 331 H 337 H Random Glucose Calcium Phosphorus Magnesium Total Bilirubin AST ALT Alkaline Phosphatase Ammonia Total Protein Albumin Globulin Albumin/Globulin Ratio Urine Color Urine Appearance Urine pH Ur Specific [place] Urine Protein Urine Glucose (UA) Urine Ketones Urine Blood Urine Nitrate Urine Bilirubin Urine Urobilinogen Ur Leukocyte Esterase Urine RBC Urine WBC Ur Epithelial Cells Amorphous Sediment Urine Bacteria Digoxin 0.8 Crossmatch 07/13/18 07/13/18 07/13/18 05:30 05:30 05:53 WBC 13.2 H D RBC 3.19 L Hgb 8.3 L Hct 26.9 L MCV 84.3 MCH 26.0 MCHC 30.9 L RDW 16.6 H Plt Count 49 L* Gran % 91.7 H Lymph % (Auto) 6.7 L [place] % (Auto) 1.6 Eos % (Auto) 0.0 L Baso % (Auto) 0.0 Gran # 12.08 H Lymph # (Auto) 0.9 L [place] # (Auto) 0.2 Eos # (Auto) 0.0 Baso # (Auto) 0.00 pCO2 pO2 HCO3 ABG pH ABG Total CO2 ABG O2 Saturation ABG O2 Content ABG Base Excess ABG Hemoglobin ABG Carboxyhemoglobin POC ABG HHb (Measured) ABG Methemoglobin ABG O2 Capacity Hgb O2 Saturation FiO2 Sodium 147 Potassium 4.7 Chloride 116 H Carbon Dioxide 24 Anion Gap 11 BUN 127 H* Creatinine 3.0 H Est GFR ( Amer) 26 Est GFR (Non-Af Amer) 21 POC Glucose (mg/dL) 359 H Random Glucose 392 H* Calcium 8.2 L Phosphorus 4.6 H Magnesium 2.5 H Total Bilirubin 1.1 AST 45 ALT 124 H Alkaline Phosphatase 76 Ammonia Total Protein 6.9 Albumin 3.1 Globulin 3.8 Albumin/Globulin Ratio 0.8 L Urine Color Urine Appearance Urine pH Ur Specific [place] Urine Protein Urine Glucose (UA) Urine Ketones Urine Blood Urine Nitrate Urine Bilirubin Urine Urobilinogen Ur Leukocyte Esterase Urine RBC Urine WBC Ur Epithelial Cells Amorphous Sediment Urine Bacteria Digoxin Crossmatch 07/13/18 07/13/18 07/13/18 06:50 07:28 11:30 WBC RBC Hgb Hct MCV MCH MCHC RDW Plt Count Gran % Lymph % (Auto) [place] % (Auto) Eos % (Auto) Baso % (Auto) Gran # Lymph # (Auto) [place] # (Auto) Eos # (Auto) Baso # (Auto) pCO2 36 pO2 161.0 H HCO3 21.8 ABG pH 7.39 ABG Total CO2 22.9 ABG O2 Saturation 100.0 H ABG O2 Content 9.9 L ABG Base Excess -2.9 L ABG Hemoglobin 6.9 L ABG Carboxyhemoglobin 1.6 H POC ABG HHb (Measured) 0 ABG Methemoglobin 0.3 ABG O2 Capacity 9.9 L Hgb O2 Saturation 98.1 H FiO2 50.0 Sodium Potassium Chloride Carbon Dioxide Anion Gap BUN Creatinine Est GFR ( Amer) Est GFR (Non-Af Amer) POC Glucose (mg/dL) 370 H Random Glucose Calcium Phosphorus Magnesium Total Bilirubin AST ALT Alkaline Phosphatase Ammonia < 9 L Total Protein Albumin Globulin Albumin/Globulin Ratio Urine Color Urine Appearance Urine pH Ur Specific [place] Urine Protein Urine Glucose (UA) Urine Ketones Urine Blood Urine Nitrate Urine Bilirubin Urine Urobilinogen Ur Leukocyte Esterase Urine RBC Urine WBC Ur Epithelial Cells Amorphous Sediment Urine Bacteria Digoxin Crossmatch 07/13/18 12:07 WBC RBC Hgb Hct MCV MCH MCHC RDW Plt Count Gran % Lymph % (Auto) [place] % (Auto) Eos % (Auto) Baso % (Auto) Gran # Lymph # (Auto) [place] # (Auto) Eos # (Auto) Baso # (Auto) pCO2 pO2 HCO3 ABG pH ABG Total CO2 ABG O2 Saturation ABG O2 Content ABG Base Excess ABG Hemoglobin ABG Carboxyhemoglobin POC ABG HHb (Measured) ABG Methemoglobin ABG O2 Capacity Hgb O2 Saturation FiO2 Sodium Potassium Chloride Carbon Dioxide Anion Gap BUN Creatinine Est GFR ( Amer) Est GFR (Non-Af Amer) POC Glucose (mg/dL) Random Glucose Calcium Phosphorus Magnesium Total Bilirubin AST ALT Alkaline Phosphatase Ammonia Total Protein Albumin Globulin Albumin/Globulin Ratio Urine Color Yellow Urine Appearance Clear Urine pH 6.0 Ur Specific [place] 1.020 Urine Protein 30 H Urine Glucose (UA) >=1000 Urine Ketones Negative Urine Blood Moderate H Urine Nitrate Negative Urine Bilirubin Negative Urine Urobilinogen 0.2 Ur Leukocyte Esterase Negative Urine RBC 15 - 20 H Urine WBC 0 - 2 Ur Epithelial Cells None Amorphous Sediment Few Urine Bacteria Mod Digoxin Crossmatch Radiology Impressions: Radiology Impressions Chest X-Ray 07/13/18 06:00 IMPRESSION: Mild cardiomegaly and mild vascular congestion Brain MRI 07/13/18 09:15 IMPRESSION: No acute intracranial findings Critical Care Progress Note - Nutrition Nutrition: Nutrition Category Date Time Status NPO Diet [DIET] Diets 07/06/18 Breakfast Ordered Assessment/Plan - Assessment and Plan (Free Text) Assessment: Patient seen and examined on rounds, with resident, agree with note with following additions/exceptions: Patient is 62yo male with PMhx of COPD, active smoker 2pks per day, HTN, DM, PVD, admitted for hypoxic respiratory failure, 2/2 Influenza PNA, and superimposed bacterial PNA. Pt is currently intubated, not on Vasopressor support, on PRVC FiO2 40%, PEEP 10 Pt's CXR with IMPROVED Aeration of upper lung miguel, ARDS. ABG with improved P/F ratio, currently >200 Weaning trial began today after sedation turned off, patient withdraws to pain, does not follow commands. CT head, MRI brain negative for acute pathology VEEG done, read pending Neurology, Dr Mcdaniels consulted Pt's with chronic thrombocytopenia, no clinical evidence of overt bleeding PNA ARDS FLU MODS Renal failure, s/p HD Thrombocytopenia rule out ITP/TTP COPD HTN PVD DM AMS Recommend: - cont with vent support, low tidal vol ventilation, high PEEP, 10, daily ABG, CXR, weaning Trial - Conservative fluid management - Abx as per ID, Vanco renally dosed, Merrem - BP control - HD as per renal - monitor LFTs - FS control, cont Levemir 20u QHS - feeds - neurology consult - VEEG read - I/Os - DC Dobutamine - will likely need cardiac cath once more stable - follow up cardio - GI ppx - DVT ppx - Monitor in MICU Critical care time 35 minutes
[2018-07-13] MEDS: MethylPREDNISolone 40 mg Vial IVP SCH ×2 (09:21→21:16)
[2018-07-13] MEDS ORDERED: Vancomycin 2 GM in Sodium Chloride 0.9% 500 ML IVPB ONE (09:48)
--- NOTE | 2018-07-13 09:52 | PN ---
DATE: 07/11/2018 HEMATOLOGY/ONCOLOGY PROGRESS NOTE LOCATION: The patient is in ICU, bed 5. SUBJECTIVE: The patient is being followed for thrombocytopenia and anemia and the background history of multiorgan failure after the patient was admitted with sepsis and renal failure along with ARDS. PHYSICAL EXAMINATION GENERAL: The patient is seen in bed, on ventilator with FiO2 of 68%, in no acute distress. The patient is hemodynamically stable with O2 saturation of 100%. The patient is sedated on Precedex. VITAL SIGNS: Reveals a T-max of 97, pulse is 81, respiration is 18, blood pressure 118/68. HEENT: Head is normocephalic and atraumatic. Conjunctivae pale. Sclerae is anicteric. The patient has an ET tube and nasogastric tube. Both of them do not show any blood. NECK: Supple. There is no adenopathy. CARDIOVASCULAR SYSTEM: Reveals S1, S2 to be normal. No gallop or murmur is heard. ABDOMEN: Soft, nontender. EXTREMITIES: Reveal no cyanosis, clubbing or edema. NEUROLOGIC EXAMINATION: The patient is sedated. CAT scan of the head done yesterday was negative. LABORATORY DATA: Reveals white count of 9, hemoglobin 8.5, hematocrit is 27, and platelet count around 36,000. The patient's ABG reveals pH of 7.29, pCO2 of 41, pO2 of 174. Sodium is 141, K is 5.1, chloride 107, CO2 of 21, BUN of 143, creatinine of 4.2, glucose is 338. Chest x-ray showed bilateral fluffy infiltrate. ASSESSMENT, NOTES AND PLAN: The patient has multiorgan failure with history of thrombocytopenic purpura and thrombocytopenia, the thrombocytopenia got aggravated by all this comorbid medical issues though the patient is currently experiencing. The patient has acute respiratory distress syndrome, bilateral pneumonia and what clinically appears to be subendocardial myocardial infarction, even though testing could not be done, such as cardiac cath because of the patient's underlying medical issues. The patient currently has just completed another course of dialysis and he is going to get another dose of IV gamma globulins to be his 5th dose of gamma globulin, hopefully this will stabilize with platelet count, and we would able to continue his Promacta once the patient is improved. In the mean time in the unit, they can at least try to give him Nplate to continue his treatments. PLAN: We will continue to monitor the platelets as I mentioned. We will continue assessing the patient for giving him Nplate as Promacta, which is a drug that can be only be given in a pill form may not be available. Sandra Estevez MD
--- NOTE | 2018-07-13 09:56 | RAD ---
Date of service: 07/13/2018 HISTORY: f/u COMPARISON: 07/12/2018 FINDINGS: LUNGS: No active pulmonary disease. PLEURA: No significant pleural effusion identified, no pneumothorax apparent. CARDIOVASCULAR: No aortic atherosclerotic calcification present. Mild cardiomegaly mild vascular congestion OSSEOUS STRUCTURES: No significant abnormalities. VISUALIZED UPPER ABDOMEN: Normal. OTHER FINDINGS: Endotracheal nasogastric tube unchanged IMPRESSION: Mild cardiomegaly and mild vascular congestion
--- NOTE | 2018-07-13 09:57 | PN ---
DATE: 07/10/2018 LOCATION: The patient is in ICU, bed 5. Room 128. SUBJECTIVE: The patient is currently seen in the bed on ventilator. There has been attempts to decrease his level of sedation. He is off the propofol and fentanyl is being also tapered with hope for possible extubation over the next 48 hours to 72 hours as per the discussion with the radiographer technologist. The patient's FiO2 has also been decreased from 60% to 40%. The patient's metabolic picture is improving. Urine output is increasing and impression is hopefully he is tuning around the corner as far as his metabolic complications are concerned. Plan is to continue with the dialysis. Continue IV IgG and platelet support as needed. His platelet is trending higher post immunoglobulin for his ITP. The patient continues on Dobutrex for his severe cardiomyopathy. MEDICATIONS: Reviewed. The patient is currently on Dobutrex, doxycycline, DuoNeb, fentanyl, low-dose heparin, insulin, immunoglobulin, meropenem, Precedex, low-dose Protonix, Solu-Medrol tapering dose, and Tylenol p.r.n. PHYSICAL EXAMINATION: VITAL SIGNS: Stable. Blood pressure 128/45, pulse is 110, T-max is 98.4 with an oxygen saturation of 95%. HEENT: The patient's eyes are open. He remains intubated. He is unresponsive. NECK: Supple. There is no adenopathy. No jugular venous distention noted. CHEST: Scattered rhonchi without any rales. Decreased breath sounds at the bases. CARDIOVASCULAR: Reveals S1 and S2 to be normal. No gallop or murmur is heard. ABDOMEN: Soft, nontender. No rebound, rigidity, or guarding is noted. EXTREMITIES: Reveals no significant edema. His legs are elevated. The patient has a nonhealing ulcer at the right ankle probably vascular or probably related to also ishemic changes. No cyanosis or clubbing. LABORATORY DATA AND IMAGING: Shows upon the chest x-ray moderate vascular congestion with right-sided perihilar infiltrate. White count is 9.5, hemoglobin 7.4 with a platelet count of 26,000, manual count is 39,000. Blood gases revealed a pH of 7.39, pO2 of 137, pCO2 of 39. Chemistries are unremarkable. As far as electrolytes are concerned, BUN is 128 with a creatinine of 4.3. Glucose is 226, followup glucose is 204. Calcium 7.4 with an albumin of 3.1. Last phosphorus was 11. Microbiology and cultures have been negative except for the sputum. ASSESSMENT: 1. The patient has a multiorgan failure with acute renal failure in the setting of most likely acute tubular necrosis in the setting of severe cardiomyopathy with possible myocardial infarction. The patient has an ejection fraction of 14%. The patient is currently becoming nonoliguric, his urine output is picking up. Workup for vasculitis is in progress as well. He did receive two dialysis procedures done so far. 2. Sepsis with community-acquired pneumonia and influenza. The patient continues on antibiotic therapy and had completed a course of antiviral therapy. 3. History of cardiomyopathy. This appears to be a new finding with an ejection fraction was 14% with valvular heart disease. The patient is being followed by Cardiology and he is on ionotropic agents. 4. Acute respiratory failure with sedation decreasing and hemodialysis. 5. History of severe thrombocytopenia or idiopathic thrombocytic purpura which has gotten compromised by multiorgan failure and sepsis and seems to be responding to the intravenous immunoglobulin. The patient no schistocytes. . 5. The patient has chronic obstructive pulmonary disease which is currently stable. 6. History of hypertension. Blood pressure is trending in the normal range and elevated enzymes and transaminitis which has improved . PLAN: The patient is going to be getting hemodialysis tomorrow. We will continue Dobutrex for ionotropic support. We will continue to treat the patient platelet count and transfuse the patient as required. discussed in detail with the patient's family and interaction with the nursing staff here. Continue to follow serologies of anti-GBM, antibody titers are still pending. In view of the patient's situation and the patient's current state, no possibility of doing a kidney biopsy at this point in time. Time spent with the patient greater than 45 minutes . We will give copies of the results to the patient's family so that they can read over it and come up with any other suggestions they may have. Routine postexam instructions have been given to the patient. The patient will be continuing to get intravenous gamma globulin and platelets for one more day tomorrow. We will continue to monitor the platelet count and hemoglobin. The patient is also going to get two units of packed RBCs today. Time spent with the patient greater than 45 minutes out of which more than 50% of the time was [id number] with the patient and the family. This is a complex patient with multiple comorbid medical issues. Labs were request. Sandra Estevez MD
--- NOTE | 2018-07-13 11:09 | PN ---
SUBJECTIVE: The patient was seen and examined at bedside in the ICU. The patient was again noted to be febrile overnight and otherwise remains intubated and clinically unchanged. OBJECTIVE: VITAL SIGNS: Temperature 101.8, pulse 122, blood pressure 149/80, respiratory rate 22, oxygen saturation 98% on 50% FIO2. GENERAL: Intubated. HEENT: PERRL. ETT in place. OGT in place. NECK: No JVD. LUNGS: Clear to auscultation anteriorly. CARDIOVASCULAR: Irregularly irregular. Normal S1 and S2. ABDOMEN: Normoactive bowel sounds. Soft, nondistended. EXTREMITIES: 1+ edema in all extremities. Central venous catheter in place to left groin with site appearing clean, dry and intact. NEUROLOGIC: Grimaces to noxious stimuli. LABORATORY DATA: WBC 13.2 with 92% neutrophils, hemoglobin 8.3, hematocrit 27, platelets 49. Sodium 147, potassium 4.7, chloride 116, bicarb 24, BUN 127, creatinine 3, glucose 392. Blood cultures (07/03/2018) with no growth to date. Blood cultures (07/09/2018) with no growth to date. Urine culture with no growth to date. Sputum culture with yeast species. ASSESSMENT: The patient is a 62-year-old man with multiple medical comorbidities who was admitted to ICU s/p intubation for acute hypoxic respiratory failure secondary to severe sepsis secondary to community-acquired pneumonia and multiorgan system failure. PLAN: 1. Acute hypoxic respiratory failure s/p intubation. Input from Dr. Burr and the ICU team appreciated. Continue with care and weaning trials as per ICU team. 2. Severe sepsis secondary to community-acquired pneumonia with influenza. Input from Dr. Fernandes greatly appreciated. The patient remains febrile. We will continue with current antimicrobials and continue to monitor for fever and leukocytosis. 3. Acute kidney injury, consider secondary to ATN in the setting of severe sepsis. Input from Dr. Mcnamara appreciated and the patient is receiving renal replacement therapy. Continue with care as per Dr. Mcnamara. 4. NSTEMI. Input from Dr. Saxena appreciated and the patient will likely require cardiac catheterization when medically stabilized. 5. Atrial fibrillation, new onset. Continue Cardizem and Amiodarone. 6. Acute systolic heart failure. Continue Dobutamine for inotropic support. 7. Transaminitis, likely secondary to shock liver in the setting of severe sepsis, resolved. 8. Thrombocytopenia secondary to ITP. Input from Dr. Estevez appreciated. Continue with care as per Dr. Estevez. 9. Normocytic anemia. Laboratories with stable H/H and no evidence of active bleed. 10. Type 2 diabetes mellitus, uncontrolled. Levemir has been increased to 15 units sliding scale at bedtime and the sliding scale has been increased to high dose. 11. Hypertension. 12. Pseudogout. 13. Anxiety disorder. 14. GERD. 15. Prophylaxis. Continue Protonix for GI prophylaxis and SCD's for DVT prophylaxis. CODE STATUS: Full code. Yassine Martinez MD MTDD
--- NOTE | 2018-07-13 11:28 | CP.PCM.PN ---
Subjective - Date & Time of Evaluation Date of Evaluation: 07/13/18 Time of Evaluation: 09:00 - Subjective Subjective: Patient for MRI because of weakness in the extremities. Still intubated, had fevers overnight and this informatica developer. According to the nurse, the patient would answer simple questions. Objective - Vital Signs/Intake and Output Vital Signs (last 24 hours): Temp Pulse Resp BP Pulse Ox 100.6 F H 105 H 26 H 135/77 98 07/13/18 00:05 07/13/18 01:55 07/10/18 18:15 07/13/18 01:00 07/13/18 01:00 Intake and Output: 07/12/18 07/13/18 18:59 06:59 Intake Total 1996 300.0 Output Total 1400 Balance 596 300.0 - Medications Medications: Current Medications Acetaminophen (Tylenol 650mg/20.3ml Solution Ud) 650 mg PO Q6H PRN PRN Reason: Fever 101F Last Admin: 07/13/18 05:00 Dose: 650 mg Albuterol/Ipratropium (Duoneb 3 Mg/0.5 Mg (3 Ml) Ud) 3 ml IH [id number] JHON Last Admin: 07/13/18 02:50 Dose: 3 ml Albuterol/Ipratropium (Duoneb 3 Mg/0.5 Mg (3 Ml) Ud) 3 ml IH Q2H PRN PRN Reason: Shortness of Breath Last Admin: 07/11/18 23:55 Dose: 3 ml Digoxin (Lanoxin) 0.125 mg IVP 1400 JHON Heparin Sodium (Porcine) (Heparin) 3,000 units IVP ONCE PRN PRN Reason: Other Dobutamine HCl/Dextrose (Dobutamine/Dextrose 5% 500mg/250ml) 500 mg in 250 mls @ 7.314 mls/hr IV .Q24H PRN PRN Reason: Cardiac contractility Last Admin: 07/12/18 10:06 Dose: 7.314 mls/hr Dexmedetomidine HCl (Precedex 400mcg/100ml) 400 mcg in 100 mls @ 4.876 mls/hr IV .[id number] PRN; Protocol PRN Reason: Agitation Last Admin: 07/13/18 06:28 Dose: 1 mcg/kg/hr, 24.381 mls/hr Doxycycline Hyclate 100 mg/ (Sodium Chloride) 100 mls @ 100 mls/hr IVPB Q12 JHON; Protocol Last Admin: 07/12/18 21:14 Dose: 100 mls/hr Meropenem/Sodium Chloride (Merrem Iv 500 Mg/Ns 50 Ml) 500 mg in 50 mls @ 100 mls/hr IVPB Q12 JHON; Protocol Stop: 07/17/18 23:00 Last Admin: 07/12/18 21:13 Dose: 100 mls/hr diltiaZEM IVPB 100mg in NS (Cardizem 100mg In Ns) 100 mls @ 5 mls/hr IV .Q20H PRN; Protocol PRN Reason: TITRATE PER MD ORDER Last Admin: 07/12/18 21:30 Dose: 10 mg/hr, 10 mls/hr Insulin Detemir (Levemir) 15 unit SC HS [facility] Last Admin: 07/12/18 22:40 Dose: 15 u Insulin Human Regular (Humulin R High) 0 units SC Q6H JHON; Protocol Last Admin: 07/13/18 05:25 Dose: 3 units Methylprednisolone (Solu-Medrol) 60 mg IVP DAILY [facility] Last Admin: 07/12/18 10:07 Dose: 60 mg Pantoprazole Sodium (Protonix Inj) 40 mg IVP DAILY JHON Last Admin: 07/12/18 10:07 Dose: 40 mg - Labs Labs: 07/12/18 06:00 07/12/18 06:00 PT 13.8 SECONDS (9.4-12.5) H 07/09/18 09:15 INR 1.20 07/09/18 09:15 APTT 18.7 Seconds (25.1-36.5) L 07/06/18 11:54 - Constitutional Appears: Chronically Ill, Other (intubated) - Head Exam Head Exam: NORMAL INSPECTION - ENT Exam Additional comments: ET tube in place - Respiratory Exam Respiratory Exam: Decreased Breath Sounds - Cardiovascular Exam Cardiovascular Exam: +S1, +S2 - GI/Abdominal Exam GI & Abdominal Exam: Soft. absent: Tenderness Assessment and Plan - Assessment and Plan (Free Text) Plan: Assessment Severe sepsis with hypoxic respiratory failure and ventilator-dependent respiratory failure and acute on chronic renal failure as well as thrombocytopenia due to severe right sided community-acquired pneumonia S/P viral infection with Influenza A - new onset fevers R/O new onset sepsis R/O drug fevers R/O OPEN WINDER event such as CVA significant and active smoking history COPD HTN DM peripheral vascular disease history of right elbow septic arthritis history of right upper extremity cellulitis Plan will give another dose of IV Vancomycin, continue Merrem and restart Doxycycline and will repeat blood, sputum cx - follow up repeat CXR and MRI of brain to be done today discussed with ICU team overall prognosis is poor
[2018-07-13 12:12] LABS: URINE BILIRUBIN NEGATIVE (NEGATIVE); URINE BLOOD MODERATE (NEGATIVE); URINE GLUCOSE (UA) >=1000 mg/dL (NEGATIVE); URINE LEUKOCYTE ESTERASE NEGATIVE Leu/uL (NEGATIVE); URINE PROTEIN 30 mg/dL (<30 mg/dL); URINE UROBILINOGEN 0.2 E.U./dL (<1 E.U./dL)
[2018-07-13 12:13] LABS: URINE APPEARANCE CLEAR (CLEAR); URINE COLOR YELLOW (YELLOW)
[2018-07-13 12:18] LABS: URINE AMORPHOUS SEDIMENT FEW /hpf; URINE BACTERIA MOD /hpf; URINE RBC 15 - 20 /hpf (0-2); URINE WBC 0 - 2 /hpf (0-6)
--- NOTE | 2018-07-13 12:40 | MRI ---
Date of service: 07/13/2018 PROCEDURE: MRI BRAIN WITHOUT CONTRAST HISTORY: neuro status COMPARISON: None available. TECHNIQUE: Multiplanar, multisequence MR images of the brain were obtained without intravenous contrast enhancement. FINDINGS: HEMORRHAGE: None DWI: No evidence of an acute or early subacute infarction. BRAIN PARENCHYMA: No mass effect or edema. Chronic microvascular changes and focal atrophy can be seen adjacent to the right frontal horn. There are no acute findings VENTRICLES: Unremarkable. No hydrocephalus. CRANIUM: Unremarkable. ORBITS: Grossly unremarkable. PARANASAL SINUSES/MASTOIDS: Clear VASCULAR SYSTEM: Skull base flow voids intact. OTHER FINDINGS: None. IMPRESSION: No acute intracranial findings
--- NOTE | 2018-07-13 13:43 | PN ---
DATE: 07/13/2018 SUBJECTIVE: The patient remains unresponsive on a ventilator. PHYSICAL EXAMINATION: VITAL SIGNS: Blood pressure 149/80, heart rate is 110. NECK: Negative JVD. LUNGS: Without rales. HEART: S1, S2. EXTREMITIES: Without change. LABORATORY DATA: Hemoglobin is 8.3. Chemistries, BUN and creatinine is 127 and 3, platelet count is 49,000. IMPRESSION: 1. Respiratory failure. 2. Atrial fibrillation. 3. End-stage renal disease. 4. Dilated cardiomyopathy. 5. Thrombocytopenia. PLAN: Given these findings, the patient is for MRI today. We will taper off his dobutamine given his persistent elevated heart rate. Benjamin Saxena MD
--- NOTE | 2018-07-13 13:47 | PN ---
DATE: 07/13/2018 SUBJECTIVE: The patient is seen lying in bed in the ICU. He is awake, responds to name calling, but is not really following commands. He remains on the ventilator. PHYSICAL EXAMINATION: GENERAL: Elderly male lying in bed in the ICU. Vital signs: Blood pressure 149/80, heart rate 122, respiratory rate 26, temperature 101.8, and T-max is 101.8. HEENT: Normocephalic, atraumatic, positive pallor. NECK: Supple, no JVD. LUNGS: Bilateral equal entry, bilateral rhonchi, no rales. CARDIAC: S1 and S2, regular rate and rhythm, no murmur, no rub. ABDOMEN: Obese, distended, soft, nontender, bowel sounds present. EXTREMITIES: 2+ pitting edema of the lower extremities. INTAKE AND OUTPUT: 3810/3100. LABORATORY DATA WBC 13, hemoglobin 8.3, hematocrit 27 and platelets 49. Sodium 147, potassium 4.7, chloride 116, CO2 of 24, BUN 127, creatinine 3.0, glucose was 392, calcium 8.2, phosphorus 4.6 magnesium 2.5, albumin 3.1. Sputum culture yeast, urine culture negative and blood cultures no growth. Chest x-ray; cardiomegaly, mild vascular congestion. CURRENT MEDICATIONS: Cardizem IV started this morning 10 mg per hour, dobutamine IV, doxycycline 100 every 12 hours, DuoNeb, heparin, insulin, Levemir 20 units, meropenem 500 every 12 hours, Precedex, Protonix 40 IV daily, Solu-Medrol 20 IV every 12 hours and vancomycin 2 g given this morning. ASSESSMENT: 1. Acute kidney injury, acute tubular necrosis in the setting of severe sepsis, pneumonia and respiratory failure. 2. Severe sepsis with community-acquired pneumonia and influenza. 3. Severe cardiomyopathy, decreased ejection fraction, [id number] myocardial infarction. 4. New onset atrial fibrillation in the setting of severe sepsis. 5. Respiratory failure. 6. History of severe thrombocytopenia. 7. Noninsulin-dependent diabetes mellitus. 8. Underlying chronic kidney disease stage III. 9. History of hypertension. 10. Chronic obstructive pulmonary disease. 11. History of gastrointestinal bleed in the past. 12. Anemia. PLAN: 1. In light of increasing urine output, normal potassium, will hold off on dialysis today. The patient was dialyzed on Friday. We will continue to monitor electrolytes very closely. 2. Continue dobutamine for ionotropic support. 3. Continue IV diltiazem for rate control. 4. Continue IV antibiotics as per ID recommendations. Currently the patient is on meropenem, doxycycline and vancomycin. 4. Monitor platelets counts closely. 5. Monitor hemoglobin closely. 6. Continue to monitor in the ICU. 7. Continue respiratory treatments, taper steroids as feasible. 8. Avoid nephrotoxins. 9. No dialysis today, we will evaluate for dialysis again tomorrow. More than 35 minutes was spent in the care of this critically ill patient. Case discussed with ICU staff. Case discussed with dialysis staff. Bobbi Sullivan MD
[2018-07-13] MEDS: Digoxin 500 mcg/2ml (0.5 mg/2ml) Inj IVP SCH (14:22)
--- NOTE | 2018-07-13 16:33 | PCM.EEG ---
Electroencephalogram Report - Electroencephalogram Report Procedure Date: 07/10/18 Medication: Digoxin, Metilprednisolone, Tylenol. Interpretation: Technical Information: This was a 16-channel EEG, 1-channel EKG routine EEG performed using [employer] equipment. Electrodes were applied using the 10/20 international placement system. Start; 16;53 End 17;38 Total 45 minutes Clinical Information: Alter mental status EEG Details During the entire study thre was not discernible awake EEG architecture, the tracing showed diffuse bilateral attenuation with frequencies in the 4 to 5 Hz., there was minimal reactivity of the EEG to stimulation. Drowsiness not seen, sleep not seen. Hyperventilation was not performed. Photic stimulation was performed and there wee no changes on the record. Interictal activity; none Focal abnormality; none Impression: This is an abnormal EEG record that demonstrate the presence of moderate non specific diffuse disturbance of cortical activity, this is keeping with a diffuse hernandez matter dysfunction, these findings re not specific. No seizures. Patient is not in status epilepticus.
[2018-07-13] MEDS ORDERED: Vitamin A/D oint 60G TP PRN (16:53)
--- NOTE | 2018-07-13 17:33 | CON ---
NEUROLOGY CONSULT DATE: 07/13/2018 CHIEF COMPLIANT: Altered mental status. HISTORY OF PRESENT ILLNESS: This is a 62-year-old man, history came from medical records with past medical history of COPD, hypertension, type 2 diabetes mellitus non-insulin dependent, chronic kidney disease state 3, and history of severe thrombocytopenia. He is admitted to the ICU for acute hypoxic respiratory failure secondary to severe sepsis secondary to community-acquired pneumonia and multiorgan system failure. I was called to validate given the patient is not moving extremities and waking up. MRI of the brain showed no acute intracranial abnormalities. No evidence of any infarct or anything like that. The patient withdraws to noxious stimulus, this is not fully localized, blood sugars are currently elevated in terms of hyperglycemic acceleration with the random glucose of 392, ammonia level is less than 9. The patient had new onset AFib, has severe cardiomyopathy with decreased ejection fraction of non-ST elevation DC. Cardiology is onboard. PAST MEDICAL HISTORY: As above. SOCIAL HISTORY: No illicit drug use, smoking, or EtOH abuse. ALLERGIES: HE IS ALLERGIC TO . FAMILY HISTORY: Noncontributory. MEDICATIONS: Reviewed by nurse conciliation sheet. REVIEW OF SYSTEMS: A 14-point review of systems is obtained due to the patient's altered mental status.. PHYSICAL EXAMINATION: VITAL SIGNS: Blood pressure 149/80, respiratory rate 26, heart rate of 122, temperature of 101 with a T-max of 101.8. HEENT: Atraumatic and normocephalic. Positive PERRLA. NECK: Supple. No JVD. No adenopathy noted. LUNGS: Mild diffused breath sounds bilaterally. Bilateral rhonchi and no rales. HEART: Tachycardic. S1 and S2 regular rate. No murmurs. ABDOMEN: Obese, distended, soft, and nontender. Bowel sounds present. EXTREMITIES: 2+ edema of the lower extremities. Peripheral pulses are 2+ felt bilaterally. NEUROLOGICAL: The patient is lethargic and does not follow any commands. Speech is cannot be assessed at this time. Cranial nerves II through XII are intact. Motor exam; no spontaneous moving extremities noted, expect of some mild hand movements. Sensory exam; withdraws to noxious stimulus, but does not fully localized. Toes are downgoing bilaterally. DTRs are 1+ throughout. Coordination and gait are deferred for now. IMPRESSION: This is a 62-year-old man with a history of non-insulin dependent diabetes mellitus, chronic kidney disease state 3, hypertension, chronic obstructive pulmonary disease, history of severe thrombocytopenia, who was alert in the ICU for status post intubation for acute right hypoxic respiratory failure secondary to severe sepsis secondary to community-acquired pneumonia and multiorgan system failure in-terms of acute kidney injury, in-terms of acute tubular necrosis in the setting of severe sepsis, pneumonia, and respiratory failure. He was also given Tamiflu for influenza and severe cardiomyopathy, diffused ejection fracture of non-ST elevation myocardial infarction and new onset of atrial fibrillation secondary to severe sepsis. At this time, his generalized neuro condition is not moving much of extremities secondary severe toxic metabolic encephalopathy. An MRI of the brain showed no acute intracranial abnormalities. RECOMMENDATIONS: At this time; 1. Monitor electrolytes and correct accordingly. 2. Stabilized heart rate with IV diltiazem for rate control. 3. Continue with IV antibiotics in terms of Merrem, doxycycline, and vancomycin. 4. Monitor platelets closely. 5. Monitor hematocrit and hemoglobin. 6. Avoid nephrotoxin or any sedative agents and continue with current ICU management. Edis Mcdaniels MD
[2018-07-13] MEDS: Insulin Detemir 100 units/ml Vial (Levemir) SC SCH (21:19)
[2018-07-14] MEDS: diltiaZEM IVPB 100mg in NS 100 ML IV PRN ×2 (01:33→16:08)
[2018-07-14] MEDS: Albuterol-Ipratrop 3 mg / 0.5 (3 ml) UD IH SCH ×4 (02:13→19:34)
--- NOTE | 2018-07-14 02:33 | PN ---
DATE: 07/13/2018 HEMATOLOGY AND ONCOLOGY PROGRESS NOTE. LOCATION: The patient is in ICU, bed 5. SUBJECTIVE: The patient is seen lying in bed in the ICU. He is awake, responsive to name calling, but cannot easily follow commands. He still remains on the ventilator. PHYSICAL EXAMINATION: GENERAL: The patient remains lying in the unit. VITAL SIGNS: Stable. Blood pressure is 149/80, heart rate is 122, respirations 26, and T-max is 101.8. HEENT: Head is normocephalic and atraumatic. There is no blood in the ET tube or nasogastric tube. NECK: Supple. There is no adenopathy. LUNGS: Reveal bilateral equal air entry. Bilateral rhonchi. No rales. HEART: Reveals S1 and S2 to be normal. No gallop or murmur is heard. ABDOMEN: Obese, distended, soft, and nontender. No rebound, rigidity, or guarding is noted. EXTREMITIES: The patient has plus pitting edema of both extremities with chronic changes in the right heel near the ankle. INPUT AND OUTPUT: Input is 3810. Output is 3100. LABORATORY DATA: Reveals a white count of 13, hemoglobin 8.3, hematocrit 27, and platelet count 49,000. Platelets have gradually come up with the IV IgG. Plan is to currently wait on giving any other additional treatment to receive the platelet count again dropping. Sodium is 147, K is 4.7, chloride 116, CO2 is 24, BUN 127, creatinine 3, glucose 392, calcium is 8.2, phosphorous 4.6, magnesium is 2.5, and albumin is 3.1. Sputum culture is growing yeast. Urine culture is negative. Blood culture shows no growth. Chest x-ray shows cardiomegaly and mild vascular congestion. CURRENT MEDICATIONS: Reviewed. The patient is on Cardizem for atrial fibrillation that developed overnight, doxycycline every 12 hours, DuoNeb, heparin, insulin, Levemir 20 units, meropenem 500 mg every 12 hours, Precedex, Protonix 40 mg IV daily, Solu-Medrol 20 mg IV every 12 hours, and vancomycin 2 g given this morning. ASSESSMENT, NOTES AND PLAN: The patient has idiopathic thrombocytopenic purpura with thrombocytopenia aggravated by underlying sepsis, acute respiratory distress syndrome, acute renal failure, severe cardiomyopathy with ejection fraction of less than 10% and significant [id number] mycoardial infarction, new onset of atrial fibrillation, respiratory failure, vsd-[id number] diabetes mellitus, underlying chronic kidney disease stage III, history of hypertension, history of obstructive pulmonary disease, history of gastrointestinal bleeding in the past, and anemia. Plan in that of increasing output, the patient is going to hold off on renal services is going to hold off on dialysis. Last dialysis was on Friday. The patient is on dobutamine for ionotropic support. Continue IV diltiazem for controlling the heart rate. We will monitor the platelet counts closely and then appropriately make recommendations including starting a drug like Nplate. The patient need to be continued to be monitored in the ICU because of the multiple comorbid medical issues and taper the steroids gradually. Avoid nephrotoxic agents in the meantime. Time spent with the patient is greater than 35 minutes in correlating all the factors and discussing with the nursing staff and talking to the other attendings on the case. Sandra Estevez MD
[2018-07-14] MEDS: Dexmedetomidine 400mcg/100mL 400 MCG/100 ML BOTTLE IV PRN (04:30)
[2018-07-14] MEDS: Insulin Reg-HIGH-Coverage SC SCH ×4 (05:20→22:46)
[2018-07-14 06:40] LABS: ARTERIAL BLOOD GAS HCO3 21.4 mmol/L (21-28); ARTERIAL BLOOD GAS HEMOGLOBIN 11.9 g/dL (11.7-17.4); ARTERIAL BLOOD GAS O2 CAPACITY 16.4 mL/dl (16-24); ARTERIAL BLOOD GAS O2 CONTENT 16.2 ML/dl (15-23); ARTERIAL BLOOD GAS O2 SAT 98.9 % (95-98); ARTERIAL BLOOD GAS PCO2 33 mm/Hg (35-45); ARTERIAL BLOOD GAS PH 7.42 (7.35-7.45); ARTERIAL BLOOD GAS TCO2 22.4 mmol.L (22-28)
[2018-07-14 06:56] LABS: GRAN # 13.15 (1.4-6.5); GRAN % 93.3 % (50.0-68.0); HEMOGLOBIN 9.2 g/dL (14.0-18.0); LYMPH # 0.7 (1.2-3.4); LYMPH % 5.2 % (22.0-35.0); MEAN CELL VOLUME 86.7 fl (80.0-105.0); MONO # 0.2 (0.1-0.6); MONO % 1.5 % (1.0-6.0); PLATELET COUNT 81 10^3/uL (120.0-450.0); RBC 3.54 10^6/uL (3.5-6.1); RED CELL DISTRIBUTION WIDTH 16.8 % (11.5-14.5); WHITE BLOOD COUNT 14.1 10^3/uL (4.5-11.0)
[2018-07-14 07:07] LABS: ALB/GLOB RATIO 0.9 (1.1-1.8); ALBUMIN 3.3 g/dL (3.0-4.8); CALCIUM 8.8 mg/dL (8.4-10.5)
--- NOTE | 2018-07-14 07:52 | CP.CCUPN ---
<Ismael Turner - Last Filed: 07/14/18 13:35> CCU Subjective - Physician Review Subjective (Free Text): Ismael Turner PGY-1 Progress Note for ICU Patient seen and evaluated at bedside. Febrile overnight Tmax 101. Responsive and following commands to squeeze hand and blink. On Precedex and Cardizem drip currently. Patient responds to painful stimuli. Further ROS was unobtainable at this time due to clinical condition. CCU Objective - Vital Signs / Intake & Output Intake and Output (Last 8hrs): Intake & Output 07/13/18 07/14/18 07/14/18 22:59 06:59 14:59 Intake Total 1288 100 Output Total 1750 Balance -462 100 Intake: IV 788 100 IVPB 400 Left Wrist 288 Tube Feeding 500 Output: Urine 1750 Urethral (Ash) 1750 - Physical Exam Head: Positive for: Atraumatic, Normocephalic Pupils: Positive for: PERRL Extroacular Muscles: Positive for: EOMI Conjunctiva: Positive for: Normal Mouth: Positive for: Other (OGT in place) Pharnyx: Positive for: Other (Intubated, currently at 50/5/14/450) Respiratory/Chest: Positive for: Wheezes (mild expiratory wheeze noted to anterior miguel b/l, improved), Decreased Breath Sounds, Tachypneic. Negative for: Respiratory Distress Cardiovascular: Positive for: Normal S1, S2, Irregular Rhythm. Negative for: Murmurs Abdomen: Positive for: Distention. Negative for: Tenderness, Peritoneal Signs Back: Positive for: Normal Inspection Upper Extremity: Positive for: Normal Inspection, Other (No motor movement at this time in upper extremities). Negative for: Cyanosis, Edema Lower Extremity: Positive for: Edema (2+ pitting edema noted to right lower extremity; chronic diabetic ulcer noted to anterior anderson of left lower extremity ) Skin: Positive for: Warm, Dry, Normal Color. Negative for: Rashes Psychiatric: Positive for: Alert (responds to verbal and painful stimuli). Negative for: Oriented x 3, Normal Insight, Normal Concentration - Medications Active Medications: Active Medications Generic Name Dose Route Start Last Admin Trade Name Freq PRN Reason Stop Dose Admin Acetaminophen 650 mg 07/08/18 18:18 07/13/18 05:00 Tylenol 650mg/20.3ml Solution Ud PO 650 mg Q6H PRN Administration Fever 101F Albuterol/Ipratropium 3 ml 07/03/18 14:00 07/14/18 02:13 Duoneb 3 Mg/0.5 Mg (3 Ml) Ud IH 3 ml [id number] SEEMA Administration Albuterol/Ipratropium 3 ml 07/03/18 11:04 07/11/18 23:55 Duoneb 3 Mg/0.5 Mg (3 Ml) Ud IH 3 ml Q2H PRN Administration Shortness of Breath Digoxin 0.125 mg 07/13/18 14:00 07/13/18 14:22 Lanoxin IVP 0.125 mg 1400 SEEMA Administration Heparin Sodium (Porcine) 3,000 units 07/11/18 10:09 Heparin IVP ONCE PRN Other Dexmedetomidine HCl 400 mcg in 100 mls @ 4.876 mls/hr 07/10/18 07:23 07/14/18 04:30 Precedex 400mcg/100ml IV 0.8 mcg/kg/hr .[id number] PRN 19.504 mls/hr Agitation Administration Protocol 0.2 MCG/KG/HR Meropenem/Sodium Chloride 500 mg in 50 mls @ 100 mls/hr 07/10/18 22:00 07/13/18 21:18 Merrem Iv 500 Mg/Ns 50 Ml IVPB 07/17/18 23:00 100 mls/hr Q12 SEEMA Administration Protocol diltiaZEM IVPB 100mg in NS 100 mls @ 5 mls/hr 07/11/18 17:41 07/14/18 01:33 Cardizem 100mg In Ns IV 10 mg/hr .Q20H PRN 10 mls/hr TITRATE PER MD ORDER Administration Protocol 5 MG/HR Doxycycline Hyclate 100 mg/ 100 mls @ 100 mls/hr 07/13/18 11:30 07/13/18 21:17 Sodium Chloride IVPB 100 mls/hr Q12 SEEMA Administration Protocol Insulin Detemir 20 unit 07/13/18 10:18 07/13/18 21:19 Levemir SC 20 unit HS SEEMA Administration Insulin Human Regular 0 units 07/12/18 11:15 07/13/18 23:55 Humulin R High SC 2 units Q6H SEEMA Administration Protocol Methylprednisolone 20 mg 07/13/18 22:00 07/13/18 21:16 Solu-Medrol IVP 20 mg Q12 SEEMA Administration Pantoprazole Sodium 40 mg 07/03/18 14:15 07/13/18 09:22 Protonix Inj IVP 40 mg DAILY SEEMA Administration Vitamin A 1 applic 07/13/18 16:53 Vitamin A&D TP Q8 PRN Dry mouth - Patient Studies Lab Studies: Microbiology Studies 07/13/18 12:10 Gram Stain - Final Trachasp 07/09/18 15:30 Blood Culture - Preliminary Blood NO GROWTH AFTER 4 DAYS 07/09/18 15:00 Blood Culture - Preliminary Blood NO GROWTH AFTER 4 DAYS Lab Studies 07/14/18 07/14/18 07/14/18 Range/Units 07:12 06:15 05:30 WBC (4.5-11.0) 10^3/uL RBC (3.5-6.1) 10^6/uL Hgb (14.0-18.0) g/dL Hct (42.0-52.0) % MCV (80.0-105.0) fl MCH (25.0-35.0) pg MCHC (31.0-37.0) g/dl RDW (11.5-14.5) % Plt Count (120.0-450.0) 10^3/uL Gran % (50.0-68.0) % Lymph % (Auto) (22.0-35.0) % [place] % (Auto) (1.0-6.0) % Eos % (Auto) (1.5-5.0) % Baso % (Auto) (0.0-3.0) % Gran # (1.4-6.5) Lymph # (Auto) (1.2-3.4) [place] # (Auto) (0.1-0.6) Eos # (Auto) (0.0-0.7) Baso # (Auto) (0.0-2.0) K/mm3 pCO2 33 L (35-45) mm/Hg pO2 100.0 (80-100) mm/Hg HCO3 21.4 (21-28) mmol/L ABG pH 7.42 (7.35-7.45) ABG Total CO2 22.4 (22-28) mmol.L ABG O2 Saturation 98.9 H (95-98) % ABG O2 Content 16.2 (15-23) ML/dl ABG Base Excess -2.4 L (-2.0-3.0) mmol/L ABG Hemoglobin 11.9 (11.7-17.4) g/dL ABG Carboxyhemoglobin 1.7 H (0.5-1.5) % POC ABG HHb (Measured) 1.1 (0-5) % ABG Methemoglobin 1.0 (0.0-3.0) % ABG O2 Capacity 16.4 (16-24) mL/dl Hgb O2 Saturation 96.2 (95.0-98.0) % FiO2 50.0 % Sodium 155 H (132-148) mmol/L Potassium 4.8 (3.6-5.0) mmol/L Chloride 123 H (98-107) mmol/L Carbon Dioxide 27 (21-33) mmol/L Anion Gap 11 (10-20) BUN 118 H (7-21) mg/dL Creatinine 2.6 H (0.8-1.5) mg/dl Est GFR ( Amer) 30 Est GFR (Non-Af Amer) 25 POC Glucose (mg/dL) 191 H (65-110) mg/dL Random Glucose 181 H (70-110) mg/dL Calcium 8.8 (8.4-10.5) mg/dL Phosphorus 4.2 (2.5-4.5) mg/dL Magnesium 2.5 H (1.7-2.2) mg/dL Total Bilirubin 1.3 (0.2-1.3) mg/dL AST 45 (17-59) U/L ALT 106 H (7-56) U/L Alkaline Phosphatase 78 (38-126) U/L Ammonia (9-33) umol/L Total Protein 7.2 (5.8-8.3) g/dL Albumin 3.3 (3.0-4.8) g/dL Globulin 3.9 gm/dL Albumin/Globulin Ratio 0.9 L (1.1-1.8) Procalcitonin (0.19-0.49) NG/ML Urine Color (YELLOW) Urine Appearance (CLEAR) Urine pH (4.7-8.0) Ur Specific [place] (1.005-1.035) Urine Protein (<30 mg/dL) mg/dL Urine Glucose (UA) (NEGATIVE) mg/dL Urine Ketones (NEGATIVE) mg/dL Urine Blood (NEGATIVE) Urine Nitrate (NEGATIVE) Urine Bilirubin (NEGATIVE) Urine Urobilinogen (<1 E.U./dL) E.U./dL Ur Leukocyte Esterase (NEGATIVE) Dani/uL Urine RBC (0-2) /hpf Urine WBC (0-6) /hpf Ur Epithelial Cells (0-5) /hpf Amorphous Sediment (NONE) /hpf Urine Bacteria (NONE) /hpf Digoxin (0.8-2.0) ng/mL 07/14/18 07/13/18 07/13/18 Range/Units 05:30 22:31 18:14 WBC 14.1 H (4.5-11.0) 10^3/uL RBC 3.54 (3.5-6.1) 10^6/uL Hgb 9.2 L (14.0-18.0) g/dL Hct 30.7 L (42.0-52.0) % MCV 86.7 (80.0-105.0) fl MCH 26.0 (25.0-35.0) pg MCHC 30.0 L (31.0-37.0) g/dl RDW 16.8 H (11.5-14.5) % Plt Count 81 L (120.0-450.0) 10^3/uL Gran % 93.3 H (50.0-68.0) % Lymph % (Auto) 5.2 L (22.0-35.0) % [place]y % (Auto) 1.5 (1.0-6.0) % Eos % (Auto) 0.0 L (1.5-5.0) % Baso % (Auto) 0.0 (0.0-3.0) % Gran # 13.15 H (1.4-6.5) Lymph # (Auto) 0.7 L (1.2-3.4) [place] # (Auto) 0.2 (0.1-0.6) Eos # (Auto) 0.0 (0.0-0.7) Baso # (Auto) 0.00 (0.0-2.0) K/mm3 pCO2 (35-45) mm/Hg pO2 (80-100) mm/Hg HCO3 (21-28) mmol/L ABG pH (7.35-7.45) ABG Total CO2 (22-28) mmol.L ABG O2 Saturation (95-98) % ABG O2 Content (15-23) ML/dl ABG Base Excess (-2.0-3.0) mmol/L ABG Hemoglobin (11.7-17.4) g/dL ABG Carboxyhemoglobin (0.5-1.5) % POC ABG HHb (Measured) (0-5) % ABG Methemoglobin (0.0-3.0) % ABG O2 Capacity (16-24) mL/dl Hgb O2 Saturation (95.0-98.0) % FiO2 % Sodium (132-148) mmol/L Potassium (3.6-5.0) mmol/L Chloride (98-107) mmol/L Carbon Dioxide (21-33) mmol/L Anion Gap (10-20) BUN (7-21) mg/dL Creatinine (0.8-1.5) mg/dl Est GFR ( Amer) Est GFR (Non-Af Amer) POC Glucose (mg/dL) 307 H 312 H (65-110) mg/dL Random Glucose (70-110) mg/dL Calcium (8.4-10.5) mg/dL Phosphorus (2.5-4.5) mg/dL Magnesium (1.7-2.2) mg/dL Total Bilirubin (0.2-1.3) mg/dL AST (17-59) U/L ALT (7-56) U/L Alkaline Phosphatase (38-126) U/L Ammonia (9-33) umol/L Total Protein (5.8-8.3) g/dL Albumin (3.0-4.8) g/dL Globulin gm/dL Albumin/Globulin Ratio (1.1-1.8) Procalcitonin (0.19-0.49) NG/ML Urine Color (YELLOW) Urine Appearance (CLEAR) Urine pH (4.7-8.0) Ur Specific [place] (1.005-1.035) Urine Protein (<30 mg/dL) mg/dL Urine Glucose (UA) (NEGATIVE) mg/dL Urine Ketones (NEGATIVE) mg/dL Urine Blood (NEGATIVE) Urine Nitrate (NEGATIVE) Urine Bilirubin (NEGATIVE) Urine Urobilinogen (<1 E.U./dL) E.U./dL Ur Leukocyte Esterase (NEGATIVE) Dani/uL Urine RBC (0-2) /hpf Urine WBC (0-6) /hpf Ur Epithelial Cells (0-5) /hpf Amorphous Sediment (NONE) /hpf Urine Bacteria (NONE) /hpf Digoxin (0.8-2.0) ng/mL 07/13/18 07/13/18 07/13/18 Range/Units 12:07 11:30 11:24 WBC (4.5-11.0) 10^3/uL RBC (3.5-6.1) 10^6/uL Hgb (14.0-18.0) g/dL Hct (42.0-52.0) % MCV (80.0-105.0) fl MCH (25.0-35.0) pg MCHC (31.0-37.0) g/dl RDW (11.5-14.5) % Plt Count (120.0-450.0) 10^3/uL Gran % (50.0-68.0) % Lymph % (Auto) (22.0-35.0) % [place] % (Auto) (1.0-6.0) % Eos % (Auto) (1.5-5.0) % Baso % (Auto) (0.0-3.0) % Gran # (1.4-6.5) Lymph # (Auto) (1.2-3.4) [place] # (Auto) (0.1-0.6) Eos # (Auto) (0.0-0.7) Baso # (Auto) (0.0-2.0) K/mm3 pCO2 (35-45) mm/Hg pO2 (80-100) mm/Hg HCO3 (21-28) mmol/L ABG pH (7.35-7.45) ABG Total CO2 (22-28) mmol.L ABG O2 Saturation (95-98) % ABG O2 Content (15-23) ML/dl ABG Base Excess (-2.0-3.0) mmol/L ABG Hemoglobin (11.7-17.4) g/dL ABG Carboxyhemoglobin (0.5-1.5) % POC ABG HHb (Measured) (0-5) % ABG Methemoglobin (0.0-3.0) % ABG O2 Capacity (16-24) mL/dl Hgb O2 Saturation (95.0-98.0) % FiO2 % Sodium (132-148) mmol/L Potassium (3.6-5.0) mmol/L Chloride (98-107) mmol/L Carbon Dioxide (21-33) mmol/L Anion Gap (10-20) BUN (7-21) mg/dL Creatinine (0.8-1.5) mg/dl Est GFR ( Amer) Est GFR (Non-Af Amer) POC Glucose (mg/dL) 416 H* (65-110) mg/dL Random Glucose (70-110) mg/dL Calcium (8.4-10.5) mg/dL Phosphorus (2.5-4.5) mg/dL Magnesium (1.7-2.2) mg/dL Total Bilirubin (0.2-1.3) mg/dL AST (17-59) U/L ALT (7-56) U/L Alkaline Phosphatase (38-126) U/L Ammonia < 9 L (9-33) umol/L Total Protein (5.8-8.3) g/dL Albumin (3.0-4.8) g/dL Globulin gm/dL Albumin/Globulin Ratio (1.1-1.8) Procalcitonin (0.19-0.49) NG/ML Urine Color Yellow (YELLOW) Urine Appearance Clear (CLEAR) Urine pH 6.0 (4.7-8.0) Ur Specific [place] 1.020 (1.005-1.035) Urine Protein 30 H (<30 mg/dL) mg/dL Urine Glucose (UA) >=1000 (NEGATIVE) mg/dL Urine Ketones Negative (NEGATIVE) mg/dL Urine Blood Moderate H (NEGATIVE) Urine Nitrate Negative (NEGATIVE) Urine Bilirubin Negative (NEGATIVE) Urine Urobilinogen 0.2 (<1 E.U./dL) E.U./dL Ur Leukocyte Esterase Negative (NEGATIVE) Dani/uL Urine RBC 15 - 20 H (0-2) /hpf Urine WBC 0 - 2 (0-6) /hpf Ur Epithelial Cells None (0-5) /hpf Amorphous Sediment Few (NONE) /hpf Urine Bacteria Mod (NONE) /hpf Digoxin (0.8-2.0) ng/mL 07/13/18 07/13/18 07/13/18 Range/Units 10:00 07:28 05:30 WBC (4.5-11.0) 10^3/uL RBC (3.5-6.1) 10^6/uL Hgb (14.0-18.0) g/dL Hct (42.0-52.0) % MCV (80.0-105.0) fl MCH (25.0-35.0) pg MCHC (31.0-37.0) g/dl RDW (11.5-14.5) % Plt Count (120.0-450.0) 10^3/uL Gran % (50.0-68.0) % Lymph % (Auto) (22.0-35.0) % [place] % (Auto) (1.0-6.0) % Eos % (Auto) (1.5-5.0) % Baso % (Auto) (0.0-3.0) % Gran # (1.4-6.5) Lymph # (Auto) (1.2-3.4) [place] # (Auto) (0.1-0.6) Eos # (Auto) (0.0-0.7) Baso # (Auto) (0.0-2.0) K/mm3 pCO2 (35-45) mm/Hg pO2 (80-100) mm/Hg HCO3 (21-28) mmol/L ABG pH (7.35-7.45) ABG Total CO2 (22-28) mmol.L ABG O2 Saturation (95-98) % ABG O2 Content (15-23) ML/dl ABG Base Excess (-2.0-3.0) mmol/L ABG Hemoglobin (11.7-17.4) g/dL ABG Carboxyhemoglobin (0.5-1.5) % POC ABG HHb (Measured) (0-5) % ABG Methemoglobin (0.0-3.0) % ABG O2 Capacity (16-24) mL/dl Hgb O2 Saturation (95.0-98.0) % FiO2 % Sodium 147 (132-148) mmol/L Potassium 4.7 (3.6-5.0) mmol/L Chloride 116 H (98-107) mmol/L Carbon Dioxide 24 (21-33) mmol/L Anion Gap 11 (10-20) BUN 127 H* (7-21) mg/dL Creatinine 3.0 H (0.8-1.5) mg/dl Est GFR ( Amer) 26 Est GFR (Non-Af Amer) 21 POC Glucose (mg/dL) 370 H (65-110) mg/dL Random Glucose 392 H* (70-110) mg/dL Calcium 8.2 L (8.4-10.5) mg/dL Phosphorus 4.6 H (2.5-4.5) mg/dL Magnesium 2.5 H (1.7-2.2) mg/dL Total Bilirubin 1.1 (0.2-1.3) mg/dL AST 45 (17-59) U/L ALT 124 H (7-56) U/L Alkaline Phosphatase 76 (38-126) U/L Ammonia (9-33) umol/L Total Protein 6.9 (5.8-8.3) g/dL Albumin 3.1 (3.0-4.8) g/dL Globulin 3.8 gm/dL Albumin/Globulin Ratio 0.8 L (1.1-1.8) Procalcitonin 1.37 H (0.19-0.49) NG/ML Urine Color (YELLOW) Urine Appearance (CLEAR) Urine pH (4.7-8.0) Ur Specific [place] (1.005-1.035) Urine Protein (<30 mg/dL) mg/dL Urine Glucose (UA) (NEGATIVE) mg/dL Urine Ketones (NEGATIVE) mg/dL Urine Blood (NEGATIVE) Urine Nitrate (NEGATIVE) Urine Bilirubin (NEGATIVE) Urine Urobilinogen (<1 E.U./dL) E.U./dL Ur Leukocyte Esterase (NEGATIVE) Dani/uL Urine RBC (0-2) /hpf Urine WBC (0-6) /hpf Ur Epithelial Cells (0-5) /hpf Amorphous Sediment (NONE) /hpf Urine Bacteria (NONE) /hpf Digoxin (0.8-2.0) ng/mL 07/13/18 Range/Units 05:30 WBC (4.5-11.0) 10^3/uL RBC (3.5-6.1) 10^6/uL Hgb (14.0-18.0) g/dL Hct (42.0-52.0) % MCV (80.0-105.0) fl MCH (25.0-35.0) pg MCHC (31.0-37.0) g/dl RDW (11.5-14.5) % Plt Count (120.0-450.0) 10^3/uL Gran % (50.0-68.0) % Lymph % (Auto) (22.0-35.0) % [place] % (Auto) (1.0-6.0) % Eos % (Auto) (1.5-5.0) % Baso % (Auto) (0.0-3.0) % Gran # (1.4-6.5) Lymph # (Auto) (1.2-3.4) [place] # (Auto) (0.1-0.6) Eos # (Auto) (0.0-0.7) Baso # (Auto) (0.0-2.0) K/mm3 pCO2 (35-45) mm/Hg pO2 (80-100) mm/Hg HCO3 (21-28) mmol/L ABG pH (7.35-7.45) ABG Total CO2 (22-28) mmol.L ABG O2 Saturation (95-98) % ABG O2 Content (15-23) ML/dl ABG Base Excess (-2.0-3.0) mmol/L ABG Hemoglobin (11.7-17.4) g/dL ABG Carboxyhemoglobin (0.5-1.5) % POC ABG HHb (Measured) (0-5) % ABG Methemoglobin (0.0-3.0) % ABG O2 Capacity (16-24) mL/dl Hgb O2 Saturation (95.0-98.0) % FiO2 % Sodium (132-148) mmol/L Potassium (3.6-5.0) mmol/L Chloride (98-107) mmol/L Carbon Dioxide (21-33) mmol/L Anion Gap (10-20) BUN (7-21) mg/dL Creatinine (0.8-1.5) mg/dl Est GFR ( Amer) Est GFR (Non-Af Amer) POC Glucose (mg/dL) (65-110) mg/dL Random Glucose (70-110) mg/dL Calcium (8.4-10.5) mg/dL Phosphorus (2.5-4.5) mg/dL Magnesium (1.7-2.2) mg/dL Total Bilirubin (0.2-1.3) mg/dL AST (17-59) U/L ALT (7-56) U/L Alkaline Phosphatase (38-126) U/L Ammonia (9-33) umol/L Total Protein (5.8-8.3) g/dL Albumin (3.0-4.8) g/dL Globulin gm/dL Albumin/Globulin Ratio (1.1-1.8) Procalcitonin (0.19-0.49) NG/ML Urine Color (YELLOW) Urine Appearance (CLEAR) Urine pH (4.7-8.0) Ur Specific [place] (1.005-1.035) Urine Protein (<30 mg/dL) mg/dL Urine Glucose (UA) (NEGATIVE) mg/dL Urine Ketones (NEGATIVE) mg/dL Urine Blood (NEGATIVE) Urine Nitrate (NEGATIVE) Urine Bilirubin (NEGATIVE) Urine Urobilinogen (<1 E.U./dL) E.U./dL Ur Leukocyte Esterase (NEGATIVE) Dani/uL Urine RBC (0-2) /hpf Urine WBC (0-6) /hpf Ur Epithelial Cells (0-5) /hpf Amorphous Sediment (NONE) /hpf Urine Bacteria (NONE) /hpf Digoxin 0.8 (0.8-2.0) ng/mL Laboratory Results - last 24 hr 07/13/18 07/13/18 07/13/18 05:30 05:30 07:28 WBC RBC Hgb Hct MCV MCH MCHC RDW Plt Count Gran % Lymph % (Auto) [place] % (Auto) Eos % (Auto) Baso % (Auto) Gran # Lymph # (Auto) [place] # (Auto) Eos # (Auto) Baso # (Auto) pCO2 pO2 HCO3 ABG pH ABG Total CO2 ABG O2 Saturation ABG O2 Content ABG Base Excess ABG Hemoglobin ABG Carboxyhemoglobin POC ABG HHb (Measured) ABG Methemoglobin ABG O2 Capacity Hgb O2 Saturation FiO2 Sodium 147 Potassium 4.7 Chloride 116 H Carbon Dioxide 24 Anion Gap 11 BUN 127 H* Creatinine 3.0 H Est GFR ( Amer) 26 Est GFR (Non-Af Amer) 21 POC Glucose (mg/dL) 370 H Random Glucose 392 H* Calcium 8.2 L Phosphorus 4.6 H Magnesium 2.5 H Total Bilirubin 1.1 AST 45 ALT 124 H Alkaline Phosphatase 76 Ammonia Total Protein 6.9 Albumin 3.1 Globulin 3.8 Albumin/Globulin Ratio 0.8 L Procalcitonin Urine Color Urine Appearance Urine pH Ur Specific [place] Urine Protein Urine Glucose (UA) Urine Ketones Urine Blood Urine Nitrate Urine Bilirubin Urine Urobilinogen Ur Leukocyte Esterase Urine RBC Urine WBC Ur Epithelial Cells Amorphous Sediment Urine Bacteria Digoxin 0.8 07/13/18 07/13/18 07/13/18 10:00 11:24 11:30 WBC RBC Hgb Hct MCV MCH MCHC RDW Plt Count Gran % Lymph % (Auto) [place] % (Auto) Eos % (Auto) Baso % (Auto) Gran # Lymph # (Auto) [place] # (Auto) Eos # (Auto) Baso # (Auto) pCO2 pO2 HCO3 ABG pH ABG Total CO2 ABG O2 Saturation ABG O2 Content ABG Base Excess ABG Hemoglobin ABG Carboxyhemoglobin POC ABG HHb (Measured) ABG Methemoglobin ABG O2 Capacity Hgb O2 Saturation FiO2 Sodium Potassium Chloride Carbon Dioxide Anion Gap BUN Creatinine Est GFR ( Amer) Est GFR (Non-Af Amer) POC Glucose (mg/dL) 416 H* Random Glucose Calcium Phosphorus Magnesium Total Bilirubin AST ALT Alkaline Phosphatase Ammonia < 9 L Total Protein Albumin Globulin Albumin/Globulin Ratio Procalcitonin 1.37 H Urine Color Urine Appearance Urine pH Ur Specific [place] Urine Protein Urine Glucose (UA) Urine Ketones Urine Blood Urine Nitrate Urine Bilirubin Urine Urobilinogen Ur Leukocyte Esterase Urine RBC Urine WBC Ur Epithelial Cells Amorphous Sediment Urine Bacteria Digoxin 07/13/18 07/13/18 07/13/18 12:07 18:14 22:31 WBC RBC Hgb Hct MCV MCH MCHC RDW Plt Count Gran % Lymph % (Auto) [place] % (Auto) Eos % (Auto) Baso % (Auto) Gran # Lymph # (Auto) [place] # (Auto) Eos # (Auto) Baso # (Auto) pCO2 pO2 HCO3 ABG pH ABG Total CO2 ABG O2 Saturation ABG O2 Content ABG Base Excess ABG Hemoglobin ABG Carboxyhemoglobin POC ABG HHb (Measured) ABG Methemoglobin ABG O2 Capacity Hgb O2 Saturation FiO2 Sodium Potassium Chloride Carbon Dioxide Anion Gap BUN Creatinine Est GFR ( Amer) Est GFR (Non-Af Amer) POC Glucose (mg/dL) 312 H 307 H Random Glucose Calcium Phosphorus Magnesium Total Bilirubin AST ALT Alkaline Phosphatase Ammonia Total Protein Albumin Globulin Albumin/Globulin Ratio Procalcitonin Urine Color Yellow Urine Appearance Clear Urine pH 6.0 Ur Specific [place] 1.020 Urine Protein 30 H Urine Glucose (UA) >=1000 Urine Ketones Negative Urine Blood Moderate H Urine Nitrate Negative Urine Bilirubin Negative Urine Urobilinogen 0.2 Ur Leukocyte Esterase Negative Urine RBC 15 - 20 H Urine WBC 0 - 2 Ur Epithelial Cells None Amorphous Sediment Few Urine Bacteria Mod Digoxin 07/14/18 07/14/18 07/14/18 05:30 05:30 06:15 WBC 14.1 H RBC 3.54 Hgb 9.2 L Hct 30.7 L MCV 86.7 MCH 26.0 MCHC 30.0 L RDW 16.8 H Plt Count 81 L Gran % 93.3 H Lymph % (Auto) 5.2 L [place] % (Auto) 1.5 Eos % (Auto) 0.0 L Baso % (Auto) 0.0 Gran # 13.15 H Lymph # (Auto) 0.7 L [place] # (Auto) 0.2 Eos # (Auto) 0.0 Baso # (Auto) 0.00 pCO2 33 L pO2 100.0 HCO3 21.4 ABG pH 7.42 ABG Total CO2 22.4 ABG O2 Saturation 98.9 H ABG O2 Content 16.2 ABG Base Excess -2.4 L ABG Hemoglobin 11.9 ABG Carboxyhemoglobin 1.7 H POC ABG HHb (Measured) 1.1 ABG Methemoglobin 1.0 ABG O2 Capacity 16.4 Hgb O2 Saturation 96.2 FiO2 50.0 Sodium 155 H Potassium 4.8 Chloride 123 H Carbon Dioxide 27 Anion Gap 11 BUN 118 H Creatinine 2.6 H Est GFR ( Amer) 30 Est GFR (Non-Af Amer) 25 POC Glucose (mg/dL) Random Glucose 181 H Calcium 8.8 Phosphorus 4.2 Magnesium 2.5 H Total Bilirubin 1.3 AST 45 ALT 106 H Alkaline Phosphatase 78 Ammonia Total Protein 7.2 Albumin 3.3 Globulin 3.9 Albumin/Globulin Ratio 0.9 L Procalcitonin Urine Color Urine Appearance Urine pH Ur Specific [place] Urine Protein Urine Glucose (UA) Urine Ketones Urine Blood Urine Nitrate Urine Bilirubin Urine Urobilinogen Ur Leukocyte Esterase Urine RBC Urine WBC Ur Epithelial Cells Amorphous Sediment Urine Bacteria Digoxin 07/14/18 07:12 WBC RBC Hgb Hct MCV MCH MCHC RDW Plt Count Gran % Lymph % (Auto) [place] % (Auto) Eos % (Auto) Baso % (Auto) Gran # Lymph # (Auto) [place] # (Auto) Eos # (Auto) Baso # (Auto) pCO2 pO2 HCO3 ABG pH ABG Total CO2 ABG O2 Saturation ABG O2 Content ABG Base Excess ABG Hemoglobin ABG Carboxyhemoglobin POC ABG HHb (Measured) ABG Methemoglobin ABG O2 Capacity Hgb O2 Saturation FiO2 Sodium Potassium Chloride Carbon Dioxide Anion Gap BUN Creatinine Est GFR ( Amer) Est GFR (Non-Af Amer) POC Glucose (mg/dL) 191 H Random Glucose Calcium Phosphorus Magnesium Total Bilirubin AST ALT Alkaline Phosphatase Ammonia Total Protein Albumin Globulin Albumin/Globulin Ratio Procalcitonin Urine Color Urine Appearance Urine pH Ur Specific [place] Urine Protein Urine Glucose (UA) Urine Ketones Urine Blood Urine Nitrate Urine Bilirubin Urine Urobilinogen Ur Leukocyte Esterase Urine RBC Urine WBC Ur Epithelial Cells Amorphous Sediment Urine Bacteria Digoxin Radiology Impressions: Radiology Impressions Chest X-Ray 07/13/18 06:00 IMPRESSION: Mild cardiomegaly and mild vascular congestion Brain MRI 07/13/18 09:15 IMPRESSION: No acute intracranial findings Fingerstick Blood Sugar Results: 307 Review of Systems - Review of Systems Review of Systems: 12 point ROS unable to be ascertained due to clinical condition. Critical Care Progress Note - Extremities/Vascular Does the Patient have a Ash Catheter?: Yes Does the Patient need a Ash Catheter?: Yes - Nutrition Nutrition: Nutrition Category Date Time Status NPO Diet [DIET] Diets 07/06/18 Breakfast Ordered Assessment/Plan - Assessment and Plan (Free Text) Assessment: 62yo male with PMHx of COPD, active smoker 1pk per day, HTN, DM, PVD, presents with ER with 2 day history of fever, chills, associated with cough that is non- productive. Yesterday, patient also developed SOB. Pt denies sick contacts, recent travel, CP, palpitations, CARTY, dizziness. In the ER, patient was noted to be hypoxic at 78%, on 2L NC, subsequently placed on BIPAP. No other constitutional symptoms. Pt was found to have increased work of breathing, RR 35-40, subsequently intubated. Placed on low tidal vol. ventilation. Patient was initially started on heparin drip given elevated troponin, and markedly diminished EF. Hep drip currently held secondary to thrombocytopenia. Initially paralyzed on Nimbex after overbreathing ventilator. Currently in MODS. Fevers overnight Tmax 101.8. Cardizem drip at 10. Dobutamine drip discontinued. Precedex drip at 0.5. No HD yesterday, plan for HD this afternoon followed by possible extubation. Neuro: - 07/13/18 MRI brain without contrast negative for acute abnormalities - Results of EEG 07/10/[address] Roland: moderate nonspecific diffuse disturbance of cortical activity, nonspecific diffuse fernandez matter dysfunction, no seizures, not in status epilepticus - Neuro consult - Dr. Harvinder Mcdaniels - shirleys appreciated. Poor motor function likely 2/2 severe toxic metabolic encephalopathy - 07/10/18 CT head without contrast negative - AAOx0, continue on sedation. - Pt. responds to painful stimuli - Continue to monitor Pulm CAP and Flu A + 07/13/18 CXR shows Vascular congestion with mild perihilar edema. Vent settings changed to 50/5/14/450 07/14/18 CXR shows persistent severe cardiomegaly, moderate pulm venous congestion - Discontinue Precedex drip - Duonebs seema q6 and PRN q2 - Decrease Solumedrol to 20mg IV daily - Abx: Continue Vanc, Merrem 500 BID and Doxycycline per ID - Urine Lg and Strep negative - Procal 4.85, repeat 5.96, 1.37 - ID eval: Dr. Fernandes - recs appreciated - Pulm consulted - Dr. Burr, recs appreciated - Resp therapy Cardio HFrEF - BNP [id number], although CXR only shows one sided infilatrate - 07/03/18 echo report shows EF 14.2%, mildly dilated LV, systolic function severely impaired, akinetic septum, moderate TR and pulm HTN - Plan to taper Dobutamine drip today per cardiac recs NSTEMI - Trop 0.48, 0.67, 0.67 - Cardiology consulted - Dr. Saxena. Cardiac cath on hold due to persistent thrombocytopenia. Hold Lasix per cardio. Further recs appreciated. - Continue Cardizem and Dig for A fib - Dig level 07/13/18 0.8 - Hold IVF d/t poor EF. - Hold Heparin drip - 07/07/18 EKG showed sinus tach - 07/08/18 EKG shows NSR, no ST or T wave changes, LVH - 07/09/18 EKG shows NSR @ 82 bpm, LVH - 07/10/18 EKG shows NSR @ 82 bpm, LVH, no peaked T waves Chronic Thrombocytopenia, ITP - Has received frequent intermittent transfusions as outpatient per medical record - PLT 81 - HIT Antibody negative - Hem consult placed- Dr. Estevez. 4 unit PLT transfused. IV gammaglobulin 5 day course completed. Plan to run 1000 units of Heparin with HD. Further recs appreciated per Dr. Estevez. - Negative IVONE and ANCA studies - 07/08/18 Peripheral smear shows no atypical cells or immature forms. Mild anisopoikilocytosis. No schistocytes. No PL clumping although markedly reduced. - ESR 45 - Split products >10 but <40 Stable Normocytic Anemia - Hgb 9.2 this AM, no obvious sign of bleed GI - NGT in place Uncontrolled DM - Hgb a1c 8.2, accuchecks ACHS - Levemir 15 units HS - Diabetic education Lipid panel - TG elevated at 172 Shock liver Transaminitis AST /ALT 307/224 > 543/409> 592/570> 717/746> 558/687> 270/476> 45/106, normal Alk Phos. Hold hepatotoxic drugs Hep panel negative - 07/03/18 RUQ U/S shows hepatosplenomegaly PTX for Ppx Nephro OG on HD - Tolerated first HD 07/07/18 s/p triple lumen catheter in L femoral vein. Replaced in R femoral vein after clot - Currently holding IVF and Diuretics per cardio. Nephro input appreciated - BUN/Cr 118/2.6 - Strict Is and Os. Output has increased. Overall +710 yesterday. - Ash in place. - Not candidate for kidney biopsy at this time due to inability to tolerate procedure - Nephro consult - recs appreciated HD planned for today- Dr. Sullivan - markos appreciated Hypernatremia, Hyperchloremia - 155, 123 likely 2/2 intubation stress - water flushes currently 200 q6, will increase to 400 q4. F/u repeat BMP at noon MSK - Wound care consulted - Podiatry consulted- Dr. Richardson- markos appreciated- no acute intervention at this time. Has signed off. - OT/PT eval ID - Fever overnight, Resolved Leukocytosis 14.1. - Tylenol 650 q6 PRN for fever >101 - Ammonia level <9 - Rapid influenza A positive > Tamiflu course completed - ID eval: Dr. Fernandes - James, Abhijeet - Procal 1.37 - 1 dose Vanc given 07/05/18 and 07/06/18. Dose given 07/13/18. - Sputum cx shows yeast species, blood cx neg after 5 days, f/u repeat UA - GI ppx: PTX - DVT ppx: Hep drip held in light of thrombocytopenia, Heparin with HD Patient seen, case reviewed and plan approved by Dr. Ab Mitchell. Ismael Turner, PGY-1 <Junior Mitchell - Last Filed: 07/14/18 14:49> CCU Objective - Vital Signs / Intake & Output Vital Signs (Last 4 hours): Vital Signs Temp 07/14/18 12:29 100.5 F H Intake and Output (Last 8hrs): Intake & Output 07/13/18 07/14/18 07/14/18 22:59 06:59 14:59 Intake Total 1288 100 Output Total 1750 1500 Balance -462 -1400 Weight 89.358 kg Intake: IV 788 100 IVPB 400 Left Wrist 288 Tube Feeding 500 Output: Urine 1750 1500 Urethral (Ash) 1750 1500 Stool 0 - Medications Active Medications: Active Medications Generic Name Dose Route Start Last Admin Trade Name Freq PRN Reason Stop Dose Admin Acetaminophen 650 mg 07/08/18 18:18 07/14/18 12:29 Tylenol 650mg/20.3ml Solution Ud PO 650 mg Q6H PRN Administration Fever 101F Albuterol/Ipratropium 3 ml 07/03/18 14:00 07/14/18 13:43 Duoneb 3 Mg/0.5 Mg (3 Ml) Ud IH 3 ml [id number] SEEMA Administration Albuterol/Ipratropium 3 ml 07/03/18 11:04 07/11/18 23:55 Duoneb 3 Mg/0.5 Mg (3 Ml) Ud IH 3 ml Q2H PRN Administration Shortness of Breath Digoxin 0.125 mg 07/13/18 14:00 07/13/18 14:22 Lanoxin IVP 0.125 mg 1400 SEEMA Administration Heparin Sodium (Porcine) 3,000 units 07/11/18 10:09 Heparin IVP ONCE PRN Other Meropenem/Sodium Chloride 500 mg in 50 mls @ 100 mls/hr 07/10/18 22:00 07/14/18 10:18 Merrem Iv 500 Mg/Ns 50 Ml IVPB 07/17/18 23:00 100 mls/hr Q12 SEEMA Administration Protocol diltiaZEM IVPB 100mg in NS 100 mls @ 5 mls/hr 07/11/18 17:41 07/14/18 01:33 Cardizem 100mg In Ns IV 10 mg/hr .Q20H PRN 10 mls/hr TITRATE PER MD ORDER Administration Protocol 5 MG/HR Doxycycline Hyclate 100 mg/ 100 mls @ 100 mls/hr 07/13/18 11:30 07/14/18 10:24 Sodium Chloride IVPB 100 mls/hr Q12 SEEMA Administration Protocol Insulin Detemir 20 unit 07/13/18 10:18 07/13/18 21:19 Levemir SC 20 unit HS SEEMA Administration Insulin Human Regular 0 units 07/12/18 11:15 07/14/18 12:14 Humulin R High SC 7 units Q6H SEEMA Administration Protocol Methylprednisolone 20 mg 07/15/18 10:00 Solu-Medrol IVP DAILY SEEMA Pantoprazole Sodium 40 mg 07/03/18 14:15 07/14/18 10:19 Protonix Inj IVP 40 mg DAILY SEEMA Administration Vitamin A 1 applic 07/13/18 16:53 Vitamin A&D TP Q8 PRN Dry mouth - Patient Studies Lab Studies: Microbiology Studies 07/13/18 12:07 Urine Culture - Final Urine,Ash No Growth (<1,000 CFU/ML) 07/13/18 01:40 MRSA Culture (Admit) - Final Nose MRSA NOT DETECTED 07/13/18 10:20 Blood Culture - Preliminary Blood-Venous NO GROWTH AFTER 24 HOURS 07/13/18 10:00 Blood Culture - Preliminary Blood-Venous NO GROWTH AFTER 24 HOURS 07/13/18 12:10 Gram Stain - Final Trachasp 07/09/18 15:30 Blood Culture - Preliminary Blood NO GROWTH AFTER 4 DAYS 07/09/18 15:00 Blood Culture - Preliminary Blood NO GROWTH AFTER 4 DAYS Lab Studies 07/14/18 07/14/18 07/14/18 Range/Units 12:00 07:12 06:15 WBC (4.5-11.0) 10^3/uL RBC (3.5-6.1) 10^6/uL Hgb (14.0-18.0) g/dL Hct (42.0-52.0) % MCV (80.0-105.0) fl MCH (25.0-35.0) pg MCHC (31.0-37.0) g/dl RDW (11.5-14.5) % Plt Count (120.0-450.0) 10^3/uL Gran % (50.0-68.0) % Lymph % (Auto) (22.0-35.0) % Coffey % (Auto) (1.0-6.0) % Eos % (Auto) (1.5-5.0) % Baso % (Auto) (0.0-3.0) % Gran # (1.4-6.5) Lymph # (Auto) (1.2-3.4) Coffey # (Auto) (0.1-0.6) Eos # (Auto) (0.0-0.7) Baso # (Auto) (0.0-2.0) K/mm3 Neutrophils % (Manual) (50.0-70.0) % Lymphocytes % (Manual) (22.0-35.0) % Monocytes % (Manual) (1.0-6.0) % Platelet Evaluation (NORMAL) Anisocytosis (manual) Microcytosis (manual) pCO2 33 L (35-45) mm/Hg pO2 100.0 (80-100) mm/Hg HCO3 21.4 (21-28) mmol/L ABG pH 7.42 (7.35-7.45) ABG Total CO2 22.4 (22-28) mmol.L ABG O2 Saturation 98.9 H (95-98) % ABG O2 Content 16.2 (15-23) ML/dl ABG Base Excess -2.4 L (-2.0-3.0) mmol/L ABG Hemoglobin 11.9 (11.7-17.4) g/dL ABG Carboxyhemoglobin 1.7 H (0.5-1.5) % POC ABG HHb (Measured) 1.1 (0-5) % ABG Methemoglobin 1.0 (0.0-3.0) % ABG O2 Capacity 16.4 (16-24) mL/dl Hgb O2 Saturation 96.2 (95.0-98.0) % FiO2 50.0 % Sodium 154 H (132-148) mmol/L Potassium 5.1 H (3.6-5.0) mmol/L Chloride 125 H (98-107) mmol/L Carbon Dioxide 24 (21-33) mmol/L Anion Gap 10 (10-20) BUN 119 H (7-21) mg/dL Creatinine 2.4 H (0.8-1.5) mg/dl Est GFR ( Amer) 33 Est GFR (Non-Af Amer) 28 POC Glucose (mg/dL) 191 H (65-110) mg/dL Random Glucose 269 H (70-110) mg/dL Calcium 8.8 (8.4-10.5) mg/dL Phosphorus (2.5-4.5) mg/dL Magnesium (1.7-2.2) mg/dL Total Bilirubin (0.2-1.3) mg/dL AST (17-59) U/L ALT (7-56) U/L Alkaline Phosphatase (38-126) U/L Total Protein (5.8-8.3) g/dL Albumin (3.0-4.8) g/dL Globulin gm/dL Albumin/Globulin Ratio (1.1-1.8) Procalcitonin (0.19-0.49) NG/ML 07/14/18 07/14/18 07/13/18 Range/Units 05:30 05:30 22:31 WBC 14.1 H (4.5-11.0) 10^3/uL RBC 3.54 (3.5-6.1) 10^6/uL Hgb 9.2 L (14.0-18.0) g/dL Hct 30.7 L (42.0-52.0) % MCV 86.7 (80.0-105.0) fl MCH 26.0 (25.0-35.0) pg MCHC 30.0 L (31.0-37.0) g/dl RDW 16.8 H (11.5-14.5) % Plt Count 81 L (120.0-450.0) 10^3/uL Gran % 93.3 H (50.0-68.0) % Lymph % (Auto) 5.2 L (22.0-35.0) % Coffey % (Auto) 1.5 (1.0-6.0) % Eos % (Auto) 0.0 L (1.5-5.0) % Baso % (Auto) 0.0 (0.0-3.0) % Gran # 13.15 H (1.4-6.5) Lymph # (Auto) 0.7 L (1.2-3.4) Coffey # (Auto) 0.2 (0.1-0.6) Eos # (Auto) 0.0 (0.0-0.7) Baso # (Auto) 0.00 (0.0-2.0) K/mm3 Neutrophils % (Manual) 96 H (50.0-70.0) % Lymphocytes % (Manual) 2 L (22.0-35.0) % Monocytes % (Manual) 2 (1.0-6.0) % Platelet Evaluation Low (NORMAL) Anisocytosis (manual) Slight Microcytosis (manual) Slight pCO2 (35-45) mm/Hg pO2 (80-100) mm/Hg HCO3 (21-28) mmol/L ABG pH (7.35-7.45) ABG Total CO2 (22-28) mmol.L ABG O2 Saturation (95-98) % ABG O2 Content (15-23) ML/dl ABG Base Excess (-2.0-3.0) mmol/L ABG Hemoglobin (11.7-17.4) g/dL ABG Carboxyhemoglobin (0.5-1.5) % POC ABG HHb (Measured) (0-5) % ABG Methemoglobin (0.0-3.0) % ABG O2 Capacity (16-24) mL/dl Hgb O2 Saturation (95.0-98.0) % FiO2 % Sodium 155 H (132-148) mmol/L Potassium 4.8 (3.6-5.0) mmol/L Chloride 123 H (98-107) mmol/L Carbon Dioxide 27 (21-33) mmol/L Anion Gap 11 (10-20) BUN 118 H (7-21) mg/dL Creatinine 2.6 H (0.8-1.5) mg/dl Est GFR ( Amer) 30 Est GFR (Non-Af Amer) 25 POC Glucose (mg/dL) 307 H (65-110) mg/dL Random Glucose 181 H (70-110) mg/dL Calcium 8.8 (8.4-10.5) mg/dL Phosphorus 4.2 (2.5-4.5) mg/dL Magnesium 2.5 H (1.7-2.2) mg/dL Total Bilirubin 1.3 (0.2-1.3) mg/dL AST 45 (17-59) U/L ALT 106 H (7-56) U/L Alkaline Phosphatase 78 (38-126) U/L Total Protein 7.2 (5.8-8.3) g/dL Albumin 3.3 (3.0-4.8) g/dL Globulin 3.9 gm/dL Albumin/Globulin Ratio 0.9 L (1.1-1.8) Procalcitonin (0.19-0.49) NG/ML 07/13/18 07/13/18 07/13/18 Range/Units 18:14 11:24 10:00 WBC (4.5-11.0) 10^3/uL RBC (3.5-6.1) 10^6/uL Hgb (14.0-18.0) g/dL Hct (42.0-52.0) % MCV (80.0-105.0) fl MCH (25.0-35.0) pg MCHC (31.0-37.0) g/dl RDW (11.5-14.5) % Plt Count (120.0-450.0) 10^3/uL Gran % (50.0-68.0) % Lymph % (Auto) (22.0-35.0) % Coffey % (Auto) (1.0-6.0) % Eos % (Auto) (1.5-5.0) % Baso % (Auto) (0.0-3.0) % Gran # (1.4-6.5) Lymph # (Auto) (1.2-3.4) Coffey # (Auto) (0.1-0.6) Eos # (Auto) (0.0-0.7) Baso # (Auto) (0.0-2.0) K/mm3 Neutrophils % (Manual) (50.0-70.0) % Lymphocytes % (Manual) (22.0-35.0) % Monocytes % (Manual) (1.0-6.0) % Platelet Evaluation (NORMAL) Anisocytosis (manual) Microcytosis (manual) pCO2 (35-45) mm/Hg pO2 (80-100) mm/Hg HCO3 (21-28) mmol/L ABG pH (7.35-7.45) ABG Total CO2 (22-28) mmol.L ABG O2 Saturation (95-98) % ABG O2 Content (15-23) ML/dl ABG Base Excess (-2.0-3.0) mmol/L ABG Hemoglobin (11.7-17.4) g/dL ABG Carboxyhemoglobin (0.5-1.5) % POC ABG HHb (Measured) (0-5) % ABG Methemoglobin (0.0-3.0) % ABG O2 Capacity (16-24) mL/dl Hgb O2 Saturation (95.0-98.0) % FiO2 % Sodium (132-148) mmol/L Potassium (3.6-5.0) mmol/L Chloride (98-107) mmol/L Carbon Dioxide (21-33) mmol/L Anion Gap (10-20) BUN (7-21) mg/dL Creatinine (0.8-1.5) mg/dl Est GFR ( Amer) Est GFR (Non-Af Amer) POC Glucose (mg/dL) 312 H 416 H* (65-110) mg/dL Random Glucose (70-110) mg/dL Calcium (8.4-10.5) mg/dL Phosphorus (2.5-4.5) mg/dL Magnesium (1.7-2.2) mg/dL Total Bilirubin (0.2-1.3) mg/dL AST (17-59) U/L ALT (7-56) U/L Alkaline Phosphatase (38-126) U/L Total Protein (5.8-8.3) g/dL Albumin (3.0-4.8) g/dL Globulin gm/dL Albumin/Globulin Ratio (1.1-1.8) Procalcitonin 1.37 H (0.19-0.49) NG/ML Laboratory Results - last 24 hr 07/13/18 07/13/18 07/13/18 10:00 11:24 18:14 WBC RBC Hgb Hct MCV MCH MCHC RDW Plt Count Gran % Lymph % (Auto) Coffey % (Auto) Eos % (Auto) Baso % (Auto) Gran # Lymph # (Auto) Coffey # (Auto) Eos # (Auto) Baso # (Auto) Neutrophils % (Manual) Lymphocytes % (Manual) Monocytes % (Manual) Platelet Evaluation Anisocytosis (manual) Microcytosis (manual) pCO2 pO2 HCO3 ABG pH ABG Total CO2 ABG O2 Saturation ABG O2 Content ABG Base Excess ABG Hemoglobin ABG Carboxyhemoglobin POC ABG HHb (Measured) ABG Methemoglobin ABG O2 Capacity Hgb O2 Saturation FiO2 Sodium Potassium Chloride Carbon Dioxide Anion Gap BUN Creatinine Est GFR ( Amer) Est GFR (Non-Af Amer) POC Glucose (mg/dL) 416 H* 312 H Random Glucose Calcium Phosphorus Magnesium Total Bilirubin AST ALT Alkaline Phosphatase Total Protein Albumin Globulin Albumin/Globulin Ratio Procalcitonin 1.37 H 07/13/18 07/14/18 07/14/18 22:31 05:30 05:30 WBC 14.1 H RBC 3.54 Hgb 9.2 L Hct 30.7 L MCV 86.7 MCH 26.0 MCHC 30.0 L RDW 16.8 H Plt Count 81 L Gran % 93.3 H Lymph % (Auto) 5.2 L Coffey % (Auto) 1.5 Eos % (Auto) 0.0 L Baso % (Auto) 0.0 Gran # 13.15 H Lymph # (Auto) 0.7 L Coffey # (Auto) 0.2 Eos # (Auto) 0.0 Baso # (Auto) 0.00 Neutrophils % (Manual) 96 H Lymphocytes % (Manual) 2 L Monocytes % (Manual) 2 Platelet Evaluation Low Anisocytosis (manual) Slight Microcytosis (manual) Slight pCO2 pO2 HCO3 ABG pH ABG Total CO2 ABG O2 Saturation ABG O2 Content ABG Base Excess ABG Hemoglobin ABG Carboxyhemoglobin POC ABG HHb (Measured) ABG Methemoglobin ABG O2 Capacity Hgb O2 Saturation FiO2 Sodium 155 H Potassium 4.8 Chloride 123 H Carbon Dioxide 27 Anion Gap 11 BUN 118 H Creatinine 2.6 H Est GFR ( Amer) 30 Est GFR (Non-Af Amer) 25 POC Glucose (mg/dL) 307 H Random Glucose 181 H Calcium 8.8 Phosphorus 4.2 Magnesium 2.5 H Total Bilirubin 1.3 AST 45 ALT 106 H Alkaline Phosphatase 78 Total Protein 7.2 Albumin 3.3 Globulin 3.9 Albumin/Globulin Ratio 0.9 L Procalcitonin 07/14/18 07/14/18 07/14/18 06:15 07:12 12:00 WBC RBC Hgb Hct MCV MCH MCHC RDW Plt Count Gran % Lymph % (Auto) Coffey % (Auto) Eos % (Auto) Baso % (Auto) Gran # Lymph # (Auto) Coffey # (Auto) Eos # (Auto) Baso # (Auto) Neutrophils % (Manual) Lymphocytes % (Manual) Monocytes % (Manual) Platelet Evaluation Anisocytosis (manual) Microcytosis (manual) pCO2 33 L pO2 100.0 HCO3 21.4 ABG pH 7.42 ABG Total CO2 22.4 ABG O2 Saturation 98.9 H ABG O2 Content 16.2 ABG Base Excess -2.4 L ABG Hemoglobin 11.9 ABG Carboxyhemoglobin 1.7 H POC ABG HHb (Measured) 1.1 ABG Methemoglobin 1.0 ABG O2 Capacity 16.4 Hgb O2 Saturation 96.2 FiO2 50.0 Sodium 154 H Potassium 5.1 H Chloride 125 H Carbon Dioxide 24 Anion Gap 10 BUN 119 H Creatinine 2.4 H Est GFR ( Amer) 33 Est GFR (Non-Af Amer) 28 POC Glucose (mg/dL) 191 H Random Glucose 269 H Calcium 8.8 Phosphorus Magnesium Total Bilirubin AST ALT Alkaline Phosphatase Total Protein Albumin Globulin Albumin/Globulin Ratio Procalcitonin Radiology Impressions: Radiology Impressions Chest X-Ray 07/14/18 06:00 IMPRESSION: Persistent severe cardiomegaly and moderate pulmonary venous congestion. Critical Care Progress Note - Nutrition Nutrition: Nutrition Category Date Time Status NPO Diet [DIET] Diets 07/06/18 Breakfast Ordered Addendum Addendum: 07/14/18 14:47 ICU Attending Addendum Patient seen and examined. Case reviewed on round with housestaff. Agree with resident note above with the following additions/exceptions 62M smoker with COPD, HTN, DM, PVD admitted with septic shock from influ A resulting in multi organ failure. ARDS now resolved - Intubated for resp support and hypoxia. Cont low Vt ventilation as is CXR improved s/p tamiflu empiric tx for superimposed PNA still having low grade temps possibly from drug fever abx as per ID would d/c all abx Elevated TNI likely demand from shock vs TN off pressors hep drip held for low plat cardio managing thrombocytopenia mmt as per hem onc hx of ITP, plat improved today OG ATN on HD will get HD today post-hd will re-assess with SBT from a pulmonary standpoint he is ok to extubate however he is very weak likely from porlonged immobilization and having rec'd steroids/paralytics for ARDS tx if he has a strong cough and improved mental status will plan to extubate SCD for DVT ppx PPI for GI ppx Rest of care above Junior Mitchell MD Pulmonary Critical Care Attending Critical Care Time: 37 mins
[2018-07-14 08:19] LABS: ANISOCYTOSIS SLIGHT; LYMPHOCYTE 2 % (22.0-35.0); MICROCYTOSIS SLIGHT; MONOCYTE 2 % (1.0-6.0); NEUTROPHIL 96 % (50.0-70.0); PLATELET ESTIMATE LOW (NORMAL)
--- NOTE | 2018-07-14 08:37 | RAD ---
Date of service: 07/14/2018 HISTORY: f/u COMPARISON: 07/13/2018 FINDINGS: Endotracheal tube terminates 3.5 cm proximal to the joy. The nasogastric tube terminates in the stomach. LUNGS: The lungs are well inflated there is moderate pulmonary venous congestion no focal consolidation. PLEURA: No pleural effusions or pneumothorax. CARDIOVASCULAR: Persistent severe cardiomegaly. No aortic atherosclerotic calcification present. OSSEOUS STRUCTURES: Within normal limits for the patient's age. VISUALIZED UPPER ABDOMEN: Normal. OTHER FINDINGS: None. IMPRESSION: Persistent severe cardiomegaly and moderate pulmonary venous congestion.
--- NOTE | 2018-07-14 10:06 | PN ---
SUBJECTIVE: The patient was seen and examined at bedside in the ICU. No acute events overnight. He remains intubated but is demonstrating gradual clinical improvement. OBJECTIVE: VITAL SIGNS: Temperature 98.8, pulse 81, blood pressure 120/70, respiratory rate 20, oxygen saturation 99% on 50% FIO2. GENERAL: Lethargic but arousable and intubated. HEENT: PERRL. ETT in place. OGT in place. NECK: No JVD. LUNGS: Scattered anterior rhonchi. CARDIOVASCULAR: Irregularly irregular. Normal S1, S2. ABDOMEN: Normoactive bowel sounds. Soft, nondistended. EXTREMITIES: 1+ edema in all extremities. Central venous catheter in place to left groin with site appearing clean, dry and intact. NEUROLOGIC: Lethargic but arousable, opens eyes to name, withdraws from noxious stimuli. LABORATORY DATA: WBC 14.1 with 93% neutrophils, hemoglobin 9.2, hematocrit 31, platelets 81. Sodium 155, potassium 4.8, chloride 123, bicarb 27, BUN 118, creatinine 2.6, glucose 181. Blood cultures (07/03/2018) with no growth to date. Blood cultures (07/09/2018) with no growth to date. Urine culture with no growth to date. Sputum culture with yeast species. ASSESSMENT: The patient is a 62-year-old man with multiple medical comorbidities who was admitted to ICU s/p intubation for acute hypoxic respiratory failure secondary to severe sepsis secondary to community-acquired pneumonia and multiorgan system failure. PLAN: 1. Acute hypoxic respiratory failure s/p intubation. Input from Dr. Burr and the ICU team appreciated. Continue with care and weaning trials as per ICU team. 2. Severe sepsis secondary to community-acquired pneumonia with influenza. Input from Dr. Lucero greatly appreciated. Cultures remain negative. Continue with current antimicrobials as per Dr. Lucero. 3. Acute kidney injury, consider secondary to ATN in the setting of severe sepsis, resolving. Input from Dr. Sullivan appreciated and no further plans for hemodialysis. Continue to monitor strict I&O's, renally dose medications and avoid nephrotoxins. 4. NSTEMI. Input from Dr. Saxena appreciated and the patient will likely require cardiac catheterization when medically stabilized. 5. Atrial fibrillation, new onset, rate controlled. Continue Cardizem drip and Digoxin. 6. Acute systolic heart failure. Input from Dr. Saxena appreciated. As above, the patient will likely require cardiac catheterization when medically stabilized. Continue with care as per Dr. Saxena. 7. Transaminitis, likely secondary to shock liver in the setting of severe sepsis, resolved. 8. Thrombocytopenia secondary to ITP. Input from Dr. Estevez appreciated. The patient is s/p a course of IVIG and has received a total of 4 units of platelets. Continue with care as per Dr. Estevez. 9. Normocytic anemia. Labs with stable H/H and no evidence of active bleed. 10. Type 2 diabetes mellitus, uncontrolled. Solu-Medrol is being tapered which will improve the patient's glycemic control. Continue with Levemir 20 units sliding scale at bedtime and high-dose insulin sliding scale. 11. Hypertension. 12. Pseudogout. 13. Anxiety disorder. 14. GERD. 15. Prophylaxis. Continue Protonix for GI prophylaxis and SCD's for DVT prophylaxis. CODE STATUS: Full code. Yassine Martinez MD MTDD
[2018-07-14] MEDS: MEROPENEM 500 MG in NS 500 MG/50 ML BAG IVPB SCH ×2 (10:18→21:10)
[2018-07-14] MEDS: MethylPREDNISolone 40 mg Vial IVP SCH (10:20)
--- NOTE | 2018-07-14 11:21 | PN ---
DATE: 07/14/2018(700am-750am) PULMONARY NOTE SUBJECTIVE: The patient remains on the ventilator. He appears more awake and less sedated this morning. PHYSICAL EXAMINATION: VITAL SIGNS: Last temperature recorded is 99.9, pulse is 91, respiratory rate 18/14, blood pressure 140/87. HEENT: Normocephalic, atraumatic. No JVD. CARDIOVASCULAR: Systolic ejection murmur at the lower left sternal border. No S3 gallop. LUNGS: Decreased breath sounds at the bases. Very minimal/less rhonchi. No wheezing. GI: Abdomen is soft, nondistended. Nontender to palpation. Bowel sounds are positive. EXTREMITIES: Mild edema. No cyanosis, no clubbing. Calves are nontender to palpation. SKIN: No acute rash. NEUROLOGIC: Exam limited at the present time. 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 Chest x-ray is similar to yesterday's film, but certainly improved from last week. Arterial blood gas was done on PRVC 14, tidal volume 450, FIO2 of 50%. Results are: PH 7.42, pCO2 33, pO2 of 100. IMPRESSION: 1. Respiratory failure. 2. Bilateral pneumonia. 3. Rule out myocardial infarction. 4. Ischemic dilated cardiomyopathy. 5. Renal failure. 6. Anemia, thrombocytopenia. 7. Chronic obstructive pulmonary disease. PLAN: The patient remains on the ventilator. He is less sedated and more awake this morning. I did discuss the case with the night nurse at length. The night nurse stated the patient had a good night. The patient was tried on CPAP and pressure support yesterday - but apparently tired. I did review the chest x-ray as above. The chest x-ray is similar to yesterday's film, but certainly improved from last week. I have also reviewed the arterial blood gas. The arterial blood gas has also continued to slowly improve. I will discuss possible weaning trials with the ICU team today. I would continue with the antibiotic coverage as per Infectious Disease. Input by Dr. Lucero is noted. The temperatures appear to be resolving. Inputs by Hematology and Cardiology are also noted. Clinical status of the patient has certainly improved - compared to last week. However, he remains critically ill with very guarded prognosis. I will discuss the above with the entire ICU team in the next few moments. I will also discuss the above with the attending physician later this morning. Balta Burr MD [facility]
[2018-07-14 12:05] LABS: CALCIUM 8.8 mg/dL (8.4-10.5)
[2018-07-14] MEDS: Acetaminophen 650mg/20.3ml solution UD PO PRN (12:29)
[2018-07-14] MEDS: Digoxin 500 mcg/2ml (0.5 mg/2ml) Inj IVP SCH (14:55)
--- NOTE | 2018-07-14 15:35 | PN ---
DATE: 07/14/2018 SUBJECTIVE: The patient is currently seen on less sedation but still on the ventilator. There are plans after today's short dialysis to try and extubate the patient. He is currently off Dobutrex. The patient has nonoliguric ATN in the setting of sepsis and pneumonia with a severe cardiomyopathy. Dobutrex was discontinued. MEDICATIONS: Medication list reviewed. The patient is on Cardizem, doxycycline, DuoNeb, heparin, insulin, Lanoxin, meropenem, Protonix, Solu-Medrol tapering dose, Tylenol and vitamin A and D. OBJECTIVE: INTAKE AND OUTPUT: Intake 1588, output 3250. VITAL SIGNS: Blood pressure 120/70. Temperature 100.5. Respiratory rate is 23. Pulse is 81 and irregular. HEENT: Eyes are closed. The patient remains intubated. NECK: Supple. No neck vein distention. CHEST: Few scattered rhonchi. No rales or wheezing. Slight decreased breath sounds at the bases secondary to decreased inspiration. CARDIOVASCULAR: Shows an irregular S1, S2 with MR/TR/PI. No S3 no S4, no rub. ABDOMEN: Soft. Bowel sounds normal. No rebound, guarding or masses. EXTREMITIES: Show no dependent edema. No cyanosis or clubbing. LABORATORY DATA AND IMAGING: Chest x-ray done today shows severe cardiomegaly with moderate pulmonary vascular congestion. MRI of the brain done yesterday showed no acute intracranial findings. Labs, CBC, white blood cell count 14.1, hemoglobin 9.2 with a platelet count up to 81,000. Blood gas today pH 7.42, pO2 of 100 with a pCO2 of 33. Chemistries show sodium of 154, potassium 5.1, chloride 125, a BUN of 119 and a creatinine of 2.4. Glucose is 269. Calcium was 8.8, phosphorus 4.2, magnesium 2.5. The cryoglobulins are pending. Anti-GBM antibody titer is pending. ANCA titers were negative. C3 was 59, slightly low with a C4 level of 14.7, normal. Microbiology, all cultures were negative with the exception of a positive sputum culture for yeast. Repeat set of blood cultures for his fevers have been negative. ASSESSMENT: 1. Acute renal failure in the setting of acute tubular necrosis. The patient is currently nonoliguric making greater than 3 liters of urine a day. Workup for vasculitis is in progress but appears to be negative so far. Anti-GBM titers are pending. Hyperkalemia has resolved. The patient is mildly hypernatremic today. We will dialyze him on a lower potassium bath and the patient should receive large amounts of water with his tube feedings. 2. Sepsis with community-acquired pneumonia and influenza. The patient is currently on antibacterial therapy, completed a course of antiviral therapy. The patient continues to have fever spikes. 3. History of severe cardiomyopathy, ejection fraction 14%. This is in the setting of a subendocardial wall myocardial infarction. The patient is now off ionotropic agents. He had developed atrial fibrillation and is currently on intravenous diltiazem. The patient is also receiving digoxin. He is not receiving beta-seble therapy. The patient is currently off heparin. 4. Acute respiratory failure. Sedation has been decreased. Attempt to extubate the patient post dialysis today. The patient is making excellent amount of urine over 3 liters. We will try and take off 1.5 liters today with the 2.5-hour dialysis treatment. 5. History of severe thrombocytopenia. Platelet count is coming up. The patient has a long history of idiopathic thrombocytopenic purpura and had received immunoglobulin with excellent results. No evidence for thrombotic thrombocytopenic purpura or hemolytic uremic syndrome. 6. History of non-insulin dependent diabetes mellitus. Glucose control has been variable. He remains on sliding scale insulin. This is likely complicated by receiving steroids. 7. History of stable chronic obstructive pulmonary disease. 8. History of hypertension. The patient's blood pressure is in the borderline low normal range. 9. History of elevated liver enzymes. His liver enzymes are almost back to baseline. PLAN: 1. As discussed with ICU house staff and hemodialysis nurse and ICU nurse, the patient will receive 2.5-hour treatment of dialysis today with removal of 1.5 liter of fluid. Post dialysis, there will be another attempt to extubate the patient. 2. For right now, the patient remains off Dobutrex. He does remain on IV diltiazem for rate control for his new onset atrial fibrillation. 3. Continue to monitor platelet counts carefully. The patient has responded nicely to immunoglobulin and platelet counts are rising. 4. In light of his mild hypernatremia, increased fluid flushes to at least a liter of free water a day. This will help lower his sodium level. We will also want the patient on a lower sodium dialysate bath. Greater than 35 minutes spent the care of this critically ill patient. Margarito Mcnamara MD
--- NOTE | 2018-07-14 15:57 | PN ---
DATE: 07/14/2018 SUBJECTIVE: The patient is still ventilator dependent. PHYSICAL EXAMINATION: VITAL SIGNS: Blood pressure 120/70, heart rate in the 80s, temperature is 100.5. NECK: Negative JVD. LUNGS: Without rales. HEART: S1, S2. EXTREMITIES: Without edema. LABORATORY DATA: Hemoglobin 9.2, BUN and creatinine is 119/2.4. The platelet count is 81,000. IMPRESSION: 1. Respiratory failure. 2. Renal failure. 3. Non-ST elevation myocardial infarction. 4. High probability for coronary artery disease. 5. Improvement of his thrombocytopenia. 6. Atrial fibrillation. 7. Dilated cardiomyopathy. Given these findings, after dialysis, the patient will undergo an attempted weaning off the ventilator. Benjamin Saxena MD
--- NOTE | 2018-07-14 21:12 | PN ---
DATE: 07/14/2018 SUBJECTIVE: The patient is in bed, in no acute distress. He is having fevers. He remains intubated on a ventilator. OBJECTIVE: VITAL SIGNS: On exam, temperature is 99, T-max is 100.5, respiratory rate on the vent, heart rate of 98, blood pressure 130/70. HEENT: Unremarkable. ET tube is in place. NECK: Supple. LUNGS: Have decreased breath sounds. HEART: Normal S1, S2. ABDOMEN: Soft, nontender. LABORATORY EXAMINATION: Reveals a white count of 14,000, hemoglobin of 9, platelets of 81,000. Chemistries are noted with a creatinine of 2.6. Urinalysis is noted. Stool occult blood is noted and random vancomycin level of 19. Immunology is noted. Influenza serology is positive and microbiology is noted, and the last cultures were done on 06/12/2018 from yesterday. Negative blood cultures, negative urine cultures, and sputum cultures pending. Review of the procalcitonin reveals the patient's procalcitonin is decreased to 1.37. Review of the imaging reveals the chest x-ray; persistent severe cardiomegaly and pulmonary venous congestion, and no focal consolidation. Review of orders reveals the patient is on doxycycline and meropenem and intermittent vancomycin. ASSESSMENT AND PLAN: This is a 62-year-old with severe sepsis with hypoxic respiratory failure, ventilator-dependent respiratory failure, acute on chronic renal failure, thrombocytopenia, severe right-sided community-acquired pneumonia, status post influenza A with fevers intermittently, on meropenem and doxycycline. Repeat pancultures are negative. Awaiting for a sputum culture. We will repeat a procalcitonin also trending that, and nasal MRSA is not detected which makes MRSA pneumonia less likely. The patient has mild LFT elevations and intra-abdominal source is always in the differential, and we will follow with you. Satya Fernandes MD
[2018-07-14] MEDS: Insulin Detemir 100 units/ml Vial (Levemir) SC SCH (22:47)
[2018-07-15] MEDS: Albuterol-Ipratrop 3 mg / 0.5 (3 ml) UD IH SCH ×4 (01:40→20:00)
[2018-07-15] MEDS: diltiaZEM IVPB 100mg in NS 100 ML IV PRN ×2 (02:07→10:00)
[2018-07-15 05:28] LABS: ARTERIAL BLOOD GAS HCO3 25.4 mmol/L (21-28); ARTERIAL BLOOD GAS HEMOGLOBIN 9.6 g/dL (11.7-17.4); ARTERIAL BLOOD GAS O2 CAPACITY 13.5 mL/dl (16-24); ARTERIAL BLOOD GAS O2 CONTENT 13.4 ML/dl (15-23); ARTERIAL BLOOD GAS O2 SAT 99.5 % (95-98); ARTERIAL BLOOD GAS PCO2 41 mm/Hg (35-45); ARTERIAL BLOOD GAS TCO2 26.7 mmol.L (22-28)
[2018-07-15] MEDS: Insulin Reg-HIGH-Coverage SC SCH ×4 (06:11→22:41)
[2018-07-15 06:42] LABS: GRAN # 18.14 (1.4-6.5); GRAN % 91.6 % (50.0-68.0); HEMOGLOBIN 9.7 g/dL (14.0-18.0); LYMPH # 1.3 (1.2-3.4); LYMPH % 6.3 % (22.0-35.0); MEAN CELL VOLUME 87.3 fl (80.0-105.0); MEAN CORPUSCULAR HEMOGLOBIN 26.1 pg (25.0-35.0); MEAN CORPUSCULAR HGB CONC 29.9 g/dl (31.0-37.0); MONO # 0.4 (0.1-0.6); MONO % 2.1 % (1.0-6.0); PLATELET COUNT 64 10^3/uL (120.0-450.0); RBC 3.71 10^6/uL (3.5-6.1); RED CELL DISTRIBUTION WIDTH 17.1 % (11.5-14.5); WHITE BLOOD COUNT 19.8 10^3/uL (4.5-11.0)
[2018-07-15 06:49] LABS: ALB/GLOB RATIO 0.9 (1.1-1.8); ALBUMIN 3.3 g/dL (3.0-4.8); CALCIUM 8.7 mg/dL (8.4-10.5)
--- NOTE | 2018-07-15 08:37 | CP.CCUPN ---
<Ismael Turner - Last Filed: 07/15/18 13:29> CCU Subjective - Physician Review Subjective (Free Text): Ismael Turner, PGY-1 Progress Note for ICU Patient seen and evaluated at bedside. Febrile overnight Tmax 100.5. Responsive and following commands to squeeze hand and blink. Opens eyes spontaneously and is able to track. On Cardizem drip currently. Further ROS was unobtainable at this time due to clinical condition. CCU Objective - Vital Signs / Intake & Output Vital Signs (Last 4 hours): Vital Signs Pulse 07/15/18 06:00 90 Intake and Output (Last 8hrs): Intake & Output 07/14/18 07/15/18 07/15/18 22:59 06:59 14:59 Intake Total 300 1030 Output Total 1100 3100 Balance -800 -2070 Weight 84.368 kg Intake: IV 180 310 Left Forearm 180 Left Wrist 210 Oral 0 Tube Feeding 120 720 Output: Urine 1100 1100 Urethral (Ash) 1100 1100 Stool 0 Other 2000 Other: # Bowel Movements 0 0 - Physical Exam Head: Positive for: Atraumatic, Normocephalic Pupils: Positive for: PERRL Extroacular Muscles: Positive for: EOMI Conjunctiva: Positive for: Normal Mouth: Positive for: Other (OGT in place) Pharnyx: Positive for: Other (Intubated, currently on pressure support at FiO2 50%) Respiratory/Chest: Positive for: Wheezes (mild expiratory wheeze noted to anterior miguel b/l, improved), Decreased Breath Sounds, Tachypneic. Negative for: Respiratory Distress Cardiovascular: Positive for: Normal S1, S2, Irregular Rhythm. Negative for: Murmurs Abdomen: Positive for: Distention. Negative for: Tenderness, Peritoneal Signs Back: Positive for: Normal Inspection Upper Extremity: Positive for: Normal Inspection, Other (No spontaneous motor movement at this time in upper extremities). Negative for: Cyanosis, Edema Lower Extremity: Positive for: Edema (2+ pitting edema noted to right lower extremity; chronic diabetic ulcer noted to anterior anderson of left lower extremity ) Neurological: Negative for: GCS=15, CN II-XII Intact Skin: Positive for: Warm, Dry, Normal Color. Negative for: Rashes Psychiatric: Positive for: Alert (responds to verbal and painful stimuli). Negative for: Oriented x 3, Normal Insight, Normal Concentration - Medications Active Medications: Active Medications Generic Name Dose Route Start Last Admin Trade Name Freq PRN Reason Stop Dose Admin Acetaminophen 650 mg 07/08/18 18:18 07/14/18 12:29 Tylenol 650mg/20.3ml Solution Ud PO 650 mg Q6H PRN Administration Fever 101F Albuterol/Ipratropium 3 ml 07/03/18 14:00 07/15/18 07:24 Duoneb 3 Mg/0.5 Mg (3 Ml) Ud IH 3 ml [id number] SEEMA Administration Albuterol/Ipratropium 3 ml 07/03/18 11:04 07/11/18 23:55 Duoneb 3 Mg/0.5 Mg (3 Ml) Ud IH 3 ml Q2H PRN Administration Shortness of Breath Digoxin 0.125 mg 07/13/18 14:00 07/14/18 14:55 Lanoxin IVP 0.125 mg 1400 SEEMA Administration Heparin Sodium (Porcine) 3,000 units 07/11/18 10:09 07/14/18 15:43 Heparin IVP 3,000 units ONCE PRN Administration Other Meropenem/Sodium Chloride 500 mg in 50 mls @ 100 mls/hr 07/10/18 22:00 07/14/18 21:10 Merrem Iv 500 Mg/Ns 50 Ml IVPB 07/17/18 23:00 100 mls/hr Q12 SEEMA Administration Protocol diltiaZEM IVPB 100mg in NS 100 mls @ 5 mls/hr 07/11/18 17:41 07/15/18 02:07 Cardizem 100mg In Ns IV 10 mg/hr .Q20H PRN 10 mls/hr TITRATE PER MD ORDER Administration Protocol 5 MG/HR Doxycycline Hyclate 100 mg/ 100 mls @ 100 mls/hr 07/13/18 11:30 07/14/18 21:10 Sodium Chloride IVPB 100 mls/hr Q12 SEEMA Administration Protocol Insulin Detemir 20 unit 07/13/18 10:18 07/14/18 22:47 Levemir SC 20 unit HS SEEMA Administration Insulin Human Regular 0 units 07/12/18 11:15 07/15/18 06:11 Humulin R High SC Not Given Q6H SEEMA Protocol Methylprednisolone 20 mg 07/15/18 10:00 Solu-Medrol IVP DAILY SEEMA Pantoprazole Sodium 40 mg 07/03/18 14:15 07/14/18 10:19 Protonix Inj IVP 40 mg DAILY SEEMA Administration Vitamin A 1 applic 07/13/18 16:53 Vitamin A&D TP Q8 PRN Dry mouth - Patient Studies Lab Studies: Microbiology Studies 07/09/18 15:00 Blood Culture - Final Blood NO GROWTH AFTER 5 DAYS Gram Stain - Final TEST NOT PERFORMED 07/09/18 15:30 Blood Culture - Final Blood NO GROWTH AFTER 5 DAYS Gram Stain - Final TEST NOT PERFORMED 07/13/18 12:07 Urine Culture - Final Urine,Ash No Growth (<1,000 CFU/ML) 07/13/18 01:40 MRSA Culture (Admit) - Final Nose MRSA NOT DETECTED 07/13/18 10:20 Blood Culture - Preliminary Blood-Venous NO GROWTH AFTER 24 HOURS 07/13/18 10:00 Blood Culture - Preliminary Blood-Venous NO GROWTH AFTER 24 HOURS Lab Studies 07/15/18 07/15/18 07/15/18 Range/Units 06:01 05:25 05:25 WBC 19.8 H D (4.5-11.0) 10^3/uL RBC 3.71 (3.5-6.1) 10^6/uL Hgb 9.7 L (14.0-18.0) g/dL Hct 32.4 L (42.0-52.0) % MCV 87.3 (80.0-105.0) fl MCH 26.1 (25.0-35.0) pg MCHC 29.9 L (31.0-37.0) g/dl RDW 17.1 H (11.5-14.5) % Plt Count 64 L (120.0-450.0) 10^3/uL Gran % 91.6 H (50.0-68.0) % Lymph % (Auto) 6.3 L (22.0-35.0) % [place] % (Auto) 2.1 (1.0-6.0) % Eos % (Auto) 0.0 L (1.5-5.0) % Baso % (Auto) 0.0 (0.0-3.0) % Gran # 18.14 H (1.4-6.5) Lymph # (Auto) 1.3 (1.2-3.4) [place] # (Auto) 0.4 (0.1-0.6) Eos # (Auto) 0.0 (0.0-0.7) Baso # (Auto) 0.00 (0.0-2.0) K/mm3 Neutrophils % (Manual) (50.0-70.0) % Lymphocytes % (Manual) (22.0-35.0) % Monocytes % (Manual) (1.0-6.0) % Platelet Evaluation (NORMAL) Anisocytosis (manual) Microcytosis (manual) pCO2 (35-45) mm/Hg pO2 (80-100) mm/Hg HCO3 (21-28) mmol/L ABG pH (7.35-7.45) ABG Total CO2 (22-28) mmol.L ABG O2 Saturation (95-98) % ABG O2 Content (15-23) ML/dl ABG Base Excess (-2.0-3.0) mmol/L ABG Hemoglobin (11.7-17.4) g/dL ABG Carboxyhemoglobin (0.5-1.5) % POC ABG HHb (Measured) (0-5) % ABG Methemoglobin (0.0-3.0) % ABG O2 Capacity (16-24) mL/dl Hgb O2 Saturation (95.0-98.0) % FiO2 % Sodium 153 H (132-148) mmol/L Potassium 5.1 H (3.6-5.0) mmol/L Chloride 120 H (98-107) mmol/L Carbon Dioxide 27 (21-33) mmol/L Anion Gap 11 (10-20) BUN 109 H (7-21) mg/dL Creatinine 2.2 H (0.8-1.5) mg/dl Est GFR ( Amer) 37 Est GFR (Non-Af Amer) 30 POC Glucose (mg/dL) 251 H (65-110) mg/dL Random Glucose 265 H (70-110) mg/dL Calcium 8.7 (8.4-10.5) mg/dL Phosphorus 4.4 (2.5-4.5) mg/dL Magnesium 2.3 H (1.7-2.2) mg/dL Total Bilirubin 1.1 (0.2-1.3) mg/dL AST 43 (17-59) U/L ALT 96 H (7-56) U/L Alkaline Phosphatase 81 (38-126) U/L Total Protein 7.2 (5.8-8.3) g/dL Albumin 3.3 (3.0-4.8) g/dL Globulin 3.9 gm/dL Albumin/Globulin Ratio 0.9 L (1.1-1.8) Cryoglobulin Glomerular Base Mem IgG (<1.0) AI 07/15/18 07/15/18 07/14/18 Range/Units 05:18 00:48 22:34 WBC (4.5-11.0) 10^3/uL RBC (3.5-6.1) 10^6/uL Hgb (14.0-18.0) g/dL Hct (42.0-52.0) % MCV (80.0-105.0) fl MCH (25.0-35.0) pg MCHC (31.0-37.0) g/dl RDW (11.5-14.5) % Plt Count (120.0-450.0) 10^3/uL Gran % (50.0-68.0) % Lymph % (Auto) (22.0-35.0) % [place] % (Auto) (1.0-6.0) % Eos % (Auto) (1.5-5.0) % Baso % (Auto) (0.0-3.0) % Gran # (1.4-6.5) Lymph # (Auto) (1.2-3.4) [place] # (Auto) (0.1-0.6) Eos # (Auto) (0.0-0.7) Baso # (Auto) (0.0-2.0) K/mm3 Neutrophils % (Manual) (50.0-70.0) % Lymphocytes % (Manual) (22.0-35.0) % Monocytes % (Manual) (1.0-6.0) % Platelet Evaluation (NORMAL) Anisocytosis (manual) Microcytosis (manual) pCO2 41 (35-45) mm/Hg pO2 138.0 H (80-100) mm/Hg HCO3 25.4 (21-28) mmol/L ABG pH 7.40 (7.35-7.45) ABG Total CO2 26.7 (22-28) mmol.L ABG O2 Saturation 99.5 H (95-98) % ABG O2 Content 13.4 L (15-23) ML/dl ABG Base Excess 0.5 (-2.0-3.0) mmol/L ABG Hemoglobin 9.6 L (11.7-17.4) g/dL ABG Carboxyhemoglobin 1.8 H (0.5-1.5) % POC ABG HHb (Measured) 0.5 (0-5) % ABG Methemoglobin 0.9 (0.0-3.0) % ABG O2 Capacity 13.5 L (16-24) mL/dl Hgb O2 Saturation 96.9 (95.0-98.0) % FiO2 50.0 % Sodium (132-148) mmol/L Potassium (3.6-5.0) mmol/L Chloride (98-107) mmol/L Carbon Dioxide (21-33) mmol/L Anion Gap (10-20) BUN (7-21) mg/dL Creatinine (0.8-1.5) mg/dl Est GFR ( Amer) Est GFR (Non-Af Amer) POC Glucose (mg/dL) 372 H 403 H* (65-110) mg/dL Random Glucose (70-110) mg/dL Calcium (8.4-10.5) mg/dL Phosphorus (2.5-4.5) mg/dL Magnesium (1.7-2.2) mg/dL Total Bilirubin (0.2-1.3) mg/dL AST (17-59) U/L ALT (7-56) U/L Alkaline Phosphatase (38-126) U/L Total Protein (5.8-8.3) g/dL Albumin (3.0-4.8) g/dL Globulin gm/dL Albumin/Globulin Ratio (1.1-1.8) Cryoglobulin Glomerular Base Mem IgG (<1.0) AI 07/14/18 07/14/18 07/14/18 Range/Units 22:31 17:22 12:00 WBC (4.5-11.0) 10^3/uL RBC (3.5-6.1) 10^6/uL Hgb (14.0-18.0) g/dL Hct (42.0-52.0) % MCV (80.0-105.0) fl MCH (25.0-35.0) pg MCHC (31.0-37.0) g/dl RDW (11.5-14.5) % Plt Count (120.0-450.0) 10^3/uL Gran % (50.0-68.0) % Lymph % (Auto) (22.0-35.0) % [place] % (Auto) (1.0-6.0) % Eos % (Auto) (1.5-5.0) % Baso % (Auto) (0.0-3.0) % Gran # (1.4-6.5) Lymph # (Auto) (1.2-3.4) [place] # (Auto) (0.1-0.6) Eos # (Auto) (0.0-0.7) Baso # (Auto) (0.0-2.0) K/mm3 Neutrophils % (Manual) (50.0-70.0) % Lymphocytes % (Manual) (22.0-35.0) % Monocytes % (Manual) (1.0-6.0) % Platelet Evaluation (NORMAL) Anisocytosis (manual) Microcytosis (manual) pCO2 (35-45) mm/Hg pO2 (80-100) mm/Hg HCO3 (21-28) mmol/L ABG pH (7.35-7.45) ABG Total CO2 (22-28) mmol.L ABG O2 Saturation (95-98) % ABG O2 Content (15-23) ML/dl ABG Base Excess (-2.0-3.0) mmol/L ABG Hemoglobin (11.7-17.4) g/dL ABG Carboxyhemoglobin (0.5-1.5) % POC ABG HHb (Measured) (0-5) % ABG Methemoglobin (0.0-3.0) % ABG O2 Capacity (16-24) mL/dl Hgb O2 Saturation (95.0-98.0) % FiO2 % Sodium 154 H (132-148) mmol/L Potassium 5.1 H (3.6-5.0) mmol/L Chloride 125 H (98-107) mmol/L Carbon Dioxide 24 (21-33) mmol/L Anion Gap 10 (10-20) BUN 119 H (7-21) mg/dL Creatinine 2.4 H (0.8-1.5) mg/dl Est GFR ( Amer) 33 Est GFR (Non-Af Amer) 28 POC Glucose (mg/dL) 404 H* 283 H (65-110) mg/dL Random Glucose 269 H (70-110) mg/dL Calcium 8.8 (8.4-10.5) mg/dL Phosphorus (2.5-4.5) mg/dL Magnesium (1.7-2.2) mg/dL Total Bilirubin (0.2-1.3) mg/dL AST (17-59) U/L ALT (7-56) U/L Alkaline Phosphatase (38-126) U/L Total Protein (5.8-8.3) g/dL Albumin (3.0-4.8) g/dL Globulin gm/dL Albumin/Globulin Ratio (1.1-1.8) Cryoglobulin Glomerular Base Mem IgG (<1.0) AI 07/14/18 07/14/18 07/09/18 Range/Units 11:20 05:30 06:39 WBC (4.5-11.0) 10^3/uL RBC (3.5-6.1) 10^6/uL Hgb (14.0-18.0) g/dL Hct (42.0-52.0) % MCV (80.0-105.0) fl MCH (25.0-35.0) pg MCHC (31.0-37.0) g/dl RDW (11.5-14.5) % Plt Count (120.0-450.0) 10^3/uL Gran % (50.0-68.0) % Lymph % (Auto) (22.0-35.0) % [place] % (Auto) (1.0-6.0) % Eos % (Auto) (1.5-5.0) % Baso % (Auto) (0.0-3.0) % Gran # (1.4-6.5) Lymph # (Auto) (1.2-3.4) [place] # (Auto) (0.1-0.6) Eos # (Auto) (0.0-0.7) Baso # (Auto) (0.0-2.0) K/mm3 Neutrophils % (Manual) 96 H (50.0-70.0) % Lymphocytes % (Manual) 2 L (22.0-35.0) % Monocytes % (Manual) 2 (1.0-6.0) % Platelet Evaluation Low (NORMAL) Anisocytosis (manual) Slight Microcytosis (manual) Slight pCO2 (35-45) mm/Hg pO2 (80-100) mm/Hg HCO3 (21-28) mmol/L ABG pH (7.35-7.45) ABG Total CO2 (22-28) mmol.L ABG O2 Saturation (95-98) % ABG O2 Content (15-23) ML/dl ABG Base Excess (-2.0-3.0) mmol/L ABG Hemoglobin (11.7-17.4) g/dL ABG Carboxyhemoglobin (0.5-1.5) % POC ABG HHb (Measured) (0-5) % ABG Methemoglobin (0.0-3.0) % ABG O2 Capacity (16-24) mL/dl Hgb O2 Saturation (95.0-98.0) % FiO2 % Sodium (132-148) mmol/L Potassium (3.6-5.0) mmol/L Chloride (98-107) mmol/L Carbon Dioxide (21-33) mmol/L Anion Gap (10-20) BUN (7-21) mg/dL Creatinine (0.8-1.5) mg/dl Est GFR ( Amer) Est GFR (Non-Af Amer) POC Glucose (mg/dL) 252 H (65-110) mg/dL Random Glucose (70-110) mg/dL Calcium (8.4-10.5) mg/dL Phosphorus (2.5-4.5) mg/dL Magnesium (1.7-2.2) mg/dL Total Bilirubin (0.2-1.3) mg/dL AST (17-59) U/L ALT (7-56) U/L Alkaline Phosphatase (38-126) U/L Total Protein (5.8-8.3) g/dL Albumin (3.0-4.8) g/dL Globulin gm/dL Albumin/Globulin Ratio (1.1-1.8) Cryoglobulin Glomerular Base Mem IgG <1.0 (<1.0) AI 07/08/18 Range/Units 15:00 WBC (4.5-11.0) 10^3/uL RBC (3.5-6.1) 10^6/uL Hgb (14.0-18.0) g/dL Hct (42.0-52.0) % MCV (80.0-105.0) fl MCH (25.0-35.0) pg MCHC (31.0-37.0) g/dl RDW (11.5-14.5) % Plt Count (120.0-450.0) 10^3/uL Gran % (50.0-68.0) % Lymph % (Auto) (22.0-35.0) % [place] % (Auto) (1.0-6.0) % Eos % (Auto) (1.5-5.0) % Baso % (Auto) (0.0-3.0) % Gran # (1.4-6.5) Lymph # (Auto) (1.2-3.4) [place] # (Auto) (0.1-0.6) Eos # (Auto) (0.0-0.7) Baso # (Auto) (0.0-2.0) K/mm3 Neutrophils % (Manual) (50.0-70.0) % Lymphocytes % (Manual) (22.0-35.0) % Monocytes % (Manual) (1.0-6.0) % Platelet Evaluation (NORMAL) Anisocytosis (manual) Microcytosis (manual) pCO2 (35-45) mm/Hg pO2 (80-100) mm/Hg HCO3 (21-28) mmol/L ABG pH (7.35-7.45) ABG Total CO2 (22-28) mmol.L ABG O2 Saturation (95-98) % ABG O2 Content (15-23) ML/dl ABG Base Excess (-2.0-3.0) mmol/L ABG Hemoglobin (11.7-17.4) g/dL ABG Carboxyhemoglobin (0.5-1.5) % POC ABG HHb (Measured) (0-5) % ABG Methemoglobin (0.0-3.0) % ABG O2 Capacity (16-24) mL/dl Hgb O2 Saturation (95.0-98.0) % FiO2 % Sodium (132-148) mmol/L Potassium (3.6-5.0) mmol/L Chloride (98-107) mmol/L Carbon Dioxide (21-33) mmol/L Anion Gap (10-20) BUN (7-21) mg/dL Creatinine (0.8-1.5) mg/dl Est GFR ( Amer) Est GFR (Non-Af Amer) POC Glucose (mg/dL) (65-110) mg/dL Random Glucose (70-110) mg/dL Calcium (8.4-10.5) mg/dL Phosphorus (2.5-4.5) mg/dL Magnesium (1.7-2.2) mg/dL Total Bilirubin (0.2-1.3) mg/dL AST (17-59) U/L ALT (7-56) U/L Alkaline Phosphatase (38-126) U/L Total Protein (5.8-8.3) g/dL Albumin (3.0-4.8) g/dL Globulin gm/dL Albumin/Globulin Ratio (1.1-1.8) Cryoglobulin TNP Glomerular Base Mem IgG (<1.0) AI Laboratory Results - last 24 hr 07/08/18 07/09/18 07/14/18 15:00 06:39 05:30 WBC RBC Hgb Hct MCV MCH MCHC RDW Plt Count Gran % Lymph % (Auto) [place] % (Auto) Eos % (Auto) Baso % (Auto) Gran # Lymph # (Auto) [place] # (Auto) Eos # (Auto) Baso # (Auto) Neutrophils % (Manual) 96 H Lymphocytes % (Manual) 2 L Monocytes % (Manual) 2 Platelet Evaluation Low Anisocytosis (manual) Slight Microcytosis (manual) Slight pCO2 pO2 HCO3 ABG pH ABG Total CO2 ABG O2 Saturation ABG O2 Content ABG Base Excess ABG Hemoglobin ABG Carboxyhemoglobin POC ABG HHb (Measured) ABG Methemoglobin ABG O2 Capacity Hgb O2 Saturation FiO2 Sodium Potassium Chloride Carbon Dioxide Anion Gap BUN Creatinine Est GFR ( Amer) Est GFR (Non-Af Amer) POC Glucose (mg/dL) Random Glucose Calcium Phosphorus Magnesium Total Bilirubin AST ALT Alkaline Phosphatase Total Protein Albumin Globulin Albumin/Globulin Ratio Cryoglobulin TNP Glomerular Base Mem IgG <1.0 07/14/18 07/14/18 07/14/18 11:20 12:00 17:22 WBC RBC Hgb Hct MCV MCH MCHC RDW Plt Count Gran % Lymph % (Auto) [place] % (Auto) Eos % (Auto) Baso % (Auto) Gran # Lymph # (Auto) [place] # (Auto) Eos # (Auto) Baso # (Auto) Neutrophils % (Manual) Lymphocytes % (Manual) Monocytes % (Manual) Platelet Evaluation Anisocytosis (manual) Microcytosis (manual) pCO2 pO2 HCO3 ABG pH ABG Total CO2 ABG O2 Saturation ABG O2 Content ABG Base Excess ABG Hemoglobin ABG Carboxyhemoglobin POC ABG HHb (Measured) ABG Methemoglobin ABG O2 Capacity Hgb O2 Saturation FiO2 Sodium 154 H Potassium 5.1 H Chloride 125 H Carbon Dioxide 24 Anion Gap 10 BUN 119 H Creatinine 2.4 H Est GFR ( Amer) 33 Est GFR (Non-Af Amer) 28 POC Glucose (mg/dL) 252 H 283 H Random Glucose 269 H Calcium 8.8 Phosphorus Magnesium Total Bilirubin AST ALT Alkaline Phosphatase Total Protein Albumin Globulin Albumin/Globulin Ratio Cryoglobulin Glomerular Base Mem IgG 07/14/18 07/14/18 07/15/18 22:31 22:34 00:48 WBC RBC Hgb Hct MCV MCH MCHC RDW Plt Count Gran % Lymph % (Auto) [place] % (Auto) Eos % (Auto) Baso % (Auto) Gran # Lymph # (Auto) [place] # (Auto) Eos # (Auto) Baso # (Auto) Neutrophils % (Manual) Lymphocytes % (Manual) Monocytes % (Manual) Platelet Evaluation Anisocytosis (manual) Microcytosis (manual) pCO2 pO2 HCO3 ABG pH ABG Total CO2 ABG O2 Saturation ABG O2 Content ABG Base Excess ABG Hemoglobin ABG Carboxyhemoglobin POC ABG HHb (Measured) ABG Methemoglobin ABG O2 Capacity Hgb O2 Saturation FiO2 Sodium Potassium Chloride Carbon Dioxide Anion Gap BUN Creatinine Est GFR ( Amer) Est GFR (Non-Af Amer) POC Glucose (mg/dL) 404 H* 403 H* 372 H Random Glucose Calcium Phosphorus Magnesium Total Bilirubin AST ALT Alkaline Phosphatase Total Protein Albumin Globulin Albumin/Globulin Ratio Cryoglobulin Glomerular Base Mem IgG 07/15/18 07/15/18 07/15/18 05:18 05:25 05:25 WBC 19.8 H D RBC 3.71 Hgb 9.7 L Hct 32.4 L MCV 87.3 MCH 26.1 MCHC 29.9 L RDW 17.1 H Plt Count 64 L Gran % 91.6 H Lymph % (Auto) 6.3 L [place] % (Auto) 2.1 Eos % (Auto) 0.0 L Baso % (Auto) 0.0 Gran # 18.14 H Lymph # (Auto) 1.3 [place] # (Auto) 0.4 Eos # (Auto) 0.0 Baso # (Auto) 0.00 Neutrophils % (Manual) Lymphocytes % (Manual) Monocytes % (Manual) Platelet Evaluation Anisocytosis (manual) Microcytosis (manual) pCO2 41 pO2 138.0 H HCO3 25.4 ABG pH 7.40 ABG Total CO2 26.7 ABG O2 Saturation 99.5 H ABG O2 Content 13.4 L ABG Base Excess 0.5 ABG Hemoglobin 9.6 L ABG Carboxyhemoglobin 1.8 H POC ABG HHb (Measured) 0.5 ABG Methemoglobin 0.9 ABG O2 Capacity 13.5 L Hgb O2 Saturation 96.9 FiO2 50.0 Sodium 153 H Potassium 5.1 H Chloride 120 H Carbon Dioxide 27 Anion Gap 11 BUN 109 H Creatinine 2.2 H Est GFR ( Amer) 37 Est GFR (Non-Af Amer) 30 POC Glucose (mg/dL) Random Glucose 265 H Calcium 8.7 Phosphorus 4.4 Magnesium 2.3 H Total Bilirubin 1.1 AST 43 ALT 96 H Alkaline Phosphatase 81 Total Protein 7.2 Albumin 3.3 Globulin 3.9 Albumin/Globulin Ratio 0.9 L Cryoglobulin Glomerular Base Mem IgG 07/15/18 06:01 WBC RBC Hgb Hct MCV MCH MCHC RDW Plt Count Gran % Lymph % (Auto) [place] % (Auto) Eos % (Auto) Baso % (Auto) Gran # Lymph # (Auto) [place] # (Auto) Eos # (Auto) Baso # (Auto) Neutrophils % (Manual) Lymphocytes % (Manual) Monocytes % (Manual) Platelet Evaluation Anisocytosis (manual) Microcytosis (manual) pCO2 pO2 HCO3 ABG pH ABG Total CO2 ABG O2 Saturation ABG O2 Content ABG Base Excess ABG Hemoglobin ABG Carboxyhemoglobin POC ABG HHb (Measured) ABG Methemoglobin ABG O2 Capacity Hgb O2 Saturation FiO2 Sodium Potassium Chloride Carbon Dioxide Anion Gap BUN Creatinine Est GFR ( Amer) Est GFR (Non-Af Amer) POC Glucose (mg/dL) 251 H Random Glucose Calcium Phosphorus Magnesium Total Bilirubin AST ALT Alkaline Phosphatase Total Protein Albumin Globulin Albumin/Globulin Ratio Cryoglobulin Glomerular Base Mem IgG Radiology Impressions: Radiology Impressions Chest X-Ray 07/14/18 06:00 IMPRESSION: Persistent severe cardiomegaly and moderate pulmonary venous congestion. Fingerstick Blood Sugar Results: 251 Review of Systems - Review of Systems Systems not reviewed;Unavailable: Intubated Review of Systems: 12 point ROS unable to be ascertained due to clinical condition. Critical Care Progress Note - Nutrition Nutrition: Nutrition Category Date Time Status NPO Diet [DIET] Diets 07/06/18 Breakfast Ordered Assessment/Plan - Assessment and Plan (Free Text) Assessment: 62 y/o male with PMHx of COPD, active smoker 1pk per day, HTN, DM, PVD, presents with ER with 2 day history of fever, chills, associated with cough that is non- productive. Yesterday, patient also developed SOB. Pt was found to have increased work of breathing, RR 35-40, subsequently intubated. Placed on low tidal vol. ventilation. Patient was initially started on heparin drip given elevated troponin, and markedly diminished EF. Hep drip currently held secondary to thrombocytopenia. Initially paralyzed on Nimbex after overbreathing ventilator. Currently in MODS. Fevers overnight Tmax 100.5. Cardizem drip at 10. Pressure support trial performed successfully yesterday but patient remained lethargic. HD performed yesterday, plan for extubation today. Neuro: - 07/13/18 MRI brain without contrast negative for acute abnormalities - Results of EEG 07/10/[address] Roland: moderate nonspecific diffuse disturbance of cortical activity, nonspecific diffuse fernandez matter dysfunction, no seizures, not in status epilepticus - Neuro consult - Dr. Harvinder Mcdaniels - recs appreciated. Poor motor function likely 2/2 severe toxic metabolic encephalopathy - 07/10/18 CT head without contrast negative - AAOx0, continue on sedation. - Pt. responds to painful stimuli - Continuous and frequent PT - recs appreciated - Continue to monitor Pulm CAP and Flu A + 07/13/18 CXR shows Vascular congestion with mild perihilar edema. Vent settings changed to 50/5/14/450 07/14/18 CXR shows persistent severe cardiomegaly, moderate pulm venous congestion 07/15/18 CXR shows worsening bilateral infltrats, angles clear, perihilar infiltrates, f/u final read - Duonebs seema q6 and PRN q2 - Continue decreased dose of Solumedrol to 20mg IV daily - Abx: Continue Merrem 500 BID and Doxycycline per ID - Urine Lg and Strep negative - Procal 4.85, repeat 5.96, 1.37 - ID eval: Dr. Fernandes - recs appreciated - Pulm consulted - Dr. Burr, recs appreciated - Resp therapy Cardio HFrEF - BNP 10497 - 07/03/18 echo report shows EF 14.2%, mildly dilated LV, systolic function neha rely impaired, akinetic septum, moderate TR and pulm HTN NSTEMI - Trop 0.48, 0.67, 0.67 - Cardiology consulted - Dr. Saxena. Cardiac cath on hold due to persistent thrombocytopenia. Hold Lasix per cardio. Further recs appreciated. - Continue Cardizem and Dig for new onset A fib - Dig level 07/13/18 0.8 - Hold IVF d/t poor EF. - Hold Heparin drip - 07/07/18 EKG showed sinus tach - 07/08/18 EKG shows NSR, no ST or T wave changes, LVH - 07/09/18 EKG shows NSR @ 82 bpm, LVH - 07/10/18 EKG shows NSR @ 82 bpm, LVH, no peaked T waves Chronic Thrombocytopenia, ITP - Has received frequent intermittent transfusions as outpatient per medical record - PLT 64 - HIT Antibody negative - Hem consult placed- Dr. Estevez. 4 unit PLT transfused. IV gammaglobulin 5 day course completed. Plan to run 1000 units of Heparin with HD. Further recs appreciated per Dr. Estevez. - Negative IVONE and ANCA studies - 07/08/18 Peripheral smear shows no atypical cells or immature forms. Mild anisopoikilocytosis. No schistocytes. No PL clumping although markedly reduced. - ESR 45 - Split products >10 but <40 Stable Normocytic Anemia - Hgb 9.7 this AM, no obvious sign of bleed GI - NGT in place Uncontrolled DM - Hgb a1c 8.2, accuchecks ACHS - Levemir 20 units HS - Diabetic education Lipid panel - TG elevated at 172 Shock liver Transaminitis AST /ALT 307/224 > 543/409> 592/570> 717/746> 558/687> 270/476> 45/106, normal Alk Phos. Hold hepatotoxic drugs Hep panel negative - 07/03/18 RUQ U/S shows hepatosplenomegaly PTX for Ppx Nephro OG on HD - Tolerated first HD 07/07/18 s/p triple lumen catheter in L femoral vein. Replaced in R femoral vein after clot - Currently holding IVF and Diuretics per cardio. Nephro input appreciated - BUN/Cr 118/2.6 - Strict Is and Os. Output has increased. 2200 yesterday. - Ash in place. - Not candidate for kidney biopsy at this time due to inability to tolerate procedure - Nephro consult - recs appreciated HD planned for today- Dr. Sullivan - recs appreciated Improving Hypernatremia, Hyperchloremia - 153, 120 likely 2/2 intubation stress and poor intake - continue water flushes at 400 q4. MSK - Wound care consulted - Podiatry consulted- Dr. Isauro burrows appreciated- no acute intervention at this time. Has signed off. - OT/PT eval ID - Fever overnight, likely drug fever 2/2 Merrem. Leukocytosis 19.8. - Tylenol 650 q6 PRN for fever >101 - Ammonia level <9 - Rapid influenza A positive > Tamiflu course completed - ID eval: Dr. Fernandes - James, Doxy to continue at this time. - Procal 1.37 - 1 dose Vanc given 07/05/18 and 07/06/18. Dose given 07/13/18. - Sputum cx shows yeast species, blood cx neg after 5 days, repeat UA negative, repeat sputum cx pending. - GI ppx: PTX - DVT ppx: Hep drip held in light of thrombocytopenia, Heparin with HD Dispo: Frequent PT for deconditioning Patient seen, case reviewed and plan approved by Dr. Ab Mitchell. Ismael Turner, PGY-1 <Mitchell,Bilal - Last Filed: 07/15/18 17:51> CCU Objective - Vital Signs / Intake & Output Vital Signs (Last 4 hours): Vital Signs Temp Pulse Resp BP Pulse Ox 07/15/18 15:45 134/70 07/15/18 15:44 99.3 F 98 H 33 H 99 07/15/18 15:30 99.3 F 98 H 53 H 142/66 98 07/15/18 15:15 99.3 F 98 H 139/70 98 07/15/18 15:14 99.3 F 98 H 36 H 98 07/15/18 15:05 99.3 F 98 07/15/18 15:04 99.3 F 59 L 98 07/15/18 15:03 99.3 F 77 98 07/15/18 15:02 99.3 F 74 98 07/15/18 15:01 99.3 F 81 98 07/15/18 15:00 132/69 07/15/18 14:59 99.3 F 73 99 07/15/18 14:58 99.3 F 100 H 99 07/15/18 14:57 99.1 F 115 H 99 07/15/18 14:56 99.1 F 97 H 99 07/15/18 14:55 99.3 F 103 H 98 07/15/18 14:54 99.1 F 105 H 98 07/15/18 14:53 99.1 F 97 H 98 07/15/18 14:52 99.1 F 102 H 98 07/15/18 14:51 99.1 F 100 H 99 07/15/18 14:50 99.1 F 101 H 99 07/15/18 14:49 99.1 F 94 H 100 07/15/18 14:48 99.1 F 98 H 99 07/15/18 14:47 99.1 F 111 H 98 07/15/18 14:46 99.1 F 99 H 99 07/15/18 14:45 139/72 07/15/18 14:44 99.1 F 113 H 99 07/15/18 14:43 99.1 F 102 H 99 07/15/18 14:42 99.1 F 101 H 99 07/15/18 14:41 99.1 F 105 H 99 07/15/18 14:40 99.1 F 99 H 99 07/15/18 14:39 99.1 F 100 H 99 07/15/18 14:38 99.1 F 99 H 99 07/15/18 14:37 99.1 F 99 H 99 07/15/18 14:36 99.1 F 101 H 99 07/15/18 14:35 99.1 F 103 H 99 07/15/18 14:34 99.1 F 106 H 99 07/15/18 14:33 99.1 F 97 H 98 07/15/18 14:32 99.1 F 98 H 99 07/15/18 14:31 99.1 F 107 H 99 07/15/18 14:30 142/75 07/15/18 14:29 99.1 F 97 H 99 07/15/18 14:28 99.1 F 108 H 99 07/15/18 14:27 99.1 F 97 H 99 07/15/18 14:26 99.1 F 105 H 99 07/15/18 14:25 99.1 F 105 H 99 07/15/18 14:24 99.1 F 102 H 98 07/15/18 14:23 99.1 F 106 H 99 07/15/18 14:00 97 H Intake and Output (Last 8hrs): Intake & Output 07/15/18 07/15/18 07/15/18 06:59 14:59 22:59 Intake Total 1030 100 Output Total 3100 Balance -2070 100 Weight 84.368 kg Intake: IV 310 100 Left Wrist 210 Oral 0 Tube Feeding 720 Output: Urine 1100 Urethral (Ash) 1100 Stool 0 Other 2000 Other: # Bowel Movements 0 - Medications Active Medications: Active Medications Generic Name Dose Route Start Last Admin Trade Name Freq PRN Reason Stop Dose Admin Acetaminophen 650 mg 07/08/18 18:18 07/14/18 12:29 Tylenol 650mg/20.3ml Solution Ud PO 650 mg Q6H PRN Administration Fever 101F Albuterol/Ipratropium 3 ml 07/03/18 14:00 07/15/18 13:07 Duoneb 3 Mg/0.5 Mg (3 Ml) Ud IH 3 ml [id number] SEEMA Administration Albuterol/Ipratropium 3 ml 07/03/18 11:04 07/11/18 23:55 Duoneb 3 Mg/0.5 Mg (3 Ml) Ud IH 3 ml Q2H PRN Administration Shortness of Breath Digoxin 0.125 mg 07/13/18 14:00 07/15/18 14:01 Lanoxin IVP 0.125 mg 1400 SEEMA Administration Heparin Sodium (Porcine) 3,000 units 07/11/18 10:09 07/14/18 15:43 Heparin IVP 3,000 units ONCE PRN Administration Other Meropenem/Sodium Chloride 500 mg in 50 mls @ 100 mls/hr 07/10/18 22:00 07/15/18 09:24 Merrem Iv 500 Mg/Ns 50 Ml IVPB 07/17/18 23:00 100 mls/hr Q12 SEEMA Administration Protocol diltiaZEM IVPB 100mg in NS 100 mls @ 5 mls/hr 07/11/18 17:41 07/15/18 10:00 Cardizem 100mg In Ns IV 5 mg/hr .Q20H PRN 5 mls/hr TITRATE PER MD ORDER Administration Protocol 5 MG/HR Doxycycline Hyclate 100 mg/ 100 mls @ 100 mls/hr 07/13/18 11:30 07/15/18 09:30 Sodium Chloride IVPB 100 mls/hr Q12 SEEMA Administration Protocol Insulin Detemir 20 unit 07/13/18 10:18 07/14/18 22:47 Levemir SC 20 unit HS SEEMA Administration Insulin Human Regular 0 units 07/12/18 11:15 07/15/18 13:03 Humulin R High SC Not Given Q6H SEEMA Protocol Methylprednisolone 20 mg 07/15/18 10:00 07/15/18 09:26 Solu-Medrol IVP 20 mg DAILY SEEMA Administration Pantoprazole Sodium 40 mg 07/03/18 14:15 07/15/18 09:26 Protonix Inj IVP 40 mg DAILY SEEMA Administration Vitamin A 1 applic 07/13/18 16:53 Vitamin A&D TP Q8 PRN Dry mouth - Patient Studies Lab Studies: Microbiology Studies 07/13/18 12:10 Gram Stain - Final Trachasp Sputum Culture - Final Yeast Species 07/13/18 10:20 Blood Culture - Preliminary Blood-Venous NO GROWTH AFTER 48 HOURS 07/13/18 10:00 Blood Culture - Preliminary Blood-Venous NO GROWTH AFTER 48 HOURS 07/09/18 15:00 Blood Culture - Final Blood NO GROWTH AFTER 5 DAYS Gram Stain - Final TEST NOT PERFORMED 07/09/18 15:30 Blood Culture - Final Blood NO GROWTH AFTER 5 DAYS Gram Stain - Final TEST NOT PERFORMED Lab Studies 07/15/18 07/15/18 07/15/18 Range/Units 11:59 08:11 06:01 WBC (4.5-11.0) 10^3/uL RBC (3.5-6.1) 10^6/uL Hgb (14.0-18.0) g/dL Hct (42.0-52.0) % MCV (80.0-105.0) fl MCH (25.0-35.0) pg MCHC (31.0-37.0) g/dl RDW (11.5-14.5) % Plt Count (120.0-450.0) 10^3/uL Gran % (50.0-68.0) % Lymph % (Auto) (22.0-35.0) % [place] % (Auto) (1.0-6.0) % Eos % (Auto) (1.5-5.0) % Baso % (Auto) (0.0-3.0) % Gran # (1.4-6.5) Lymph # (Auto) (1.2-3.4) [place] # (Auto) (0.1-0.6) Eos # (Auto) (0.0-0.7) Baso # (Auto) (0.0-2.0) K/mm3 pCO2 (35-45) mm/Hg pO2 (80-100) mm/Hg HCO3 (21-28) mmol/L ABG pH (7.35-7.45) ABG Total CO2 (22-28) mmol.L ABG O2 Saturation (95-98) % ABG O2 Content (15-23) ML/dl ABG Base Excess (-2.0-3.0) mmol/L ABG Hemoglobin (11.7-17.4) g/dL ABG Carboxyhemoglobin (0.5-1.5) % POC ABG HHb (Measured) (0-5) % ABG Methemoglobin (0.0-3.0) % ABG O2 Capacity (16-24) mL/dl Hgb O2 Saturation (95.0-98.0) % FiO2 % Sodium (132-148) mmol/L Potassium (3.6-5.0) mmol/L Chloride (98-107) mmol/L Carbon Dioxide (21-33) mmol/L Anion Gap (10-20) BUN (7-21) mg/dL Creatinine (0.8-1.5) mg/dl Est GFR ( Amer) Est GFR (Non-Af Amer) POC Glucose (mg/dL) 236 H 241 H 251 H (65-110) mg/dL Random Glucose (70-110) mg/dL Calcium (8.4-10.5) mg/dL Phosphorus (2.5-4.5) mg/dL Magnesium (1.7-2.2) mg/dL Total Bilirubin (0.2-1.3) mg/dL AST (17-59) U/L ALT (7-56) U/L Alkaline Phosphatase (38-126) U/L Total Protein (5.8-8.3) g/dL Albumin (3.0-4.8) g/dL Globulin gm/dL Albumin/Globulin Ratio (1.1-1.8) Procalcitonin (0.19-0.49) NG/ML Rheumatoid Factor IgG (<=6) U Rheumatoid Factor IgA (<=6) U Rheumatoid Factor IgM (<=6) U Glomerular Base Mem IgG (<1.0) AI 07/15/18 07/15/18 07/15/18 Range/Units 05:25 05:25 05:18 WBC 19.8 H D (4.5-11.0) 10^3/uL RBC 3.71 (3.5-6.1) 10^6/uL Hgb 9.7 L (14.0-18.0) g/dL Hct 32.4 L (42.0-52.0) % MCV 87.3 (80.0-105.0) fl MCH 26.1 (25.0-35.0) pg MCHC 29.9 L (31.0-37.0) g/dl RDW 17.1 H (11.5-14.5) % Plt Count 64 L (120.0-450.0) 10^3/uL Gran % 91.6 H (50.0-68.0) % Lymph % (Auto) 6.3 L (22.0-35.0) % [place] % (Auto) 2.1 (1.0-6.0) % Eos % (Auto) 0.0 L (1.5-5.0) % Baso % (Auto) 0.0 (0.0-3.0) % Gran # 18.14 H (1.4-6.5) Lymph # (Auto) 1.3 (1.2-3.4) [place] # (Auto) 0.4 (0.1-0.6) Eos # (Auto) 0.0 (0.0-0.7) Baso # (Auto) 0.00 (0.0-2.0) K/mm3 pCO2 41 (35-45) mm/Hg pO2 138.0 H (80-100) mm/Hg HCO3 25.4 (21-28) mmol/L ABG pH 7.40 (7.35-7.45) ABG Total CO2 26.7 (22-28) mmol.L ABG O2 Saturation 99.5 H (95-98) % ABG O2 Content 13.4 L (15-23) ML/dl ABG Base Excess 0.5 (-2.0-3.0) mmol/L ABG Hemoglobin 9.6 L (11.7-17.4) g/dL ABG Carboxyhemoglobin 1.8 H (0.5-1.5) % POC ABG HHb (Measured) 0.5 (0-5) % ABG Methemoglobin 0.9 (0.0-3.0) % ABG O2 Capacity 13.5 L (16-24) mL/dl Hgb O2 Saturation 96.9 (95.0-98.0) % FiO2 50.0 % Sodium 153 H (132-148) mmol/L Potassium 5.1 H (3.6-5.0) mmol/L Chloride 120 H (98-107) mmol/L Carbon Dioxide 27 (21-33) mmol/L Anion Gap 11 (10-20) BUN 109 H (7-21) mg/dL Creatinine 2.2 H (0.8-1.5) mg/dl Est GFR ( Amer) 37 Est GFR (Non-Af Amer) 30 POC Glucose (mg/dL) (65-110) mg/dL Random Glucose 265 H (70-110) mg/dL Calcium 8.7 (8.4-10.5) mg/dL Phosphorus 4.4 (2.5-4.5) mg/dL Magnesium 2.3 H (1.7-2.2) mg/dL Total Bilirubin 1.1 (0.2-1.3) mg/dL AST 43 (17-59) U/L ALT 96 H (7-56) U/L Alkaline Phosphatase 81 (38-126) U/L Total Protein 7.2 (5.8-8.3) g/dL Albumin 3.3 (3.0-4.8) g/dL Globulin 3.9 gm/dL Albumin/Globulin Ratio 0.9 L (1.1-1.8) Procalcitonin (0.19-0.49) NG/ML Rheumatoid Factor IgG (<=6) U Rheumatoid Factor IgA (<=6) U Rheumatoid Factor IgM (<=6) U Glomerular Base Mem IgG (<1.0) AI 07/15/18 07/14/18 07/14/18 Range/Units 00:48 22:34 22:31 WBC (4.5-11.0) 10^3/uL RBC (3.5-6.1) 10^6/uL Hgb (14.0-18.0) g/dL Hct (42.0-52.0) % MCV (80.0-105.0) fl MCH (25.0-35.0) pg MCHC (31.0-37.0) g/dl RDW (11.5-14.5) % Plt Count (120.0-450.0) 10^3/uL Gran % (50.0-68.0) % Lymph % (Auto) (22.0-35.0) % [place] % (Auto) (1.0-6.0) % Eos % (Auto) (1.5-5.0) % Baso % (Auto) (0.0-3.0) % Gran # (1.4-6.5) Lymph # (Auto) (1.2-3.4) [place] # (Auto) (0.1-0.6) Eos # (Auto) (0.0-0.7) Baso # (Auto) (0.0-2.0) K/mm3 pCO2 (35-45) mm/Hg pO2 (80-100) mm/Hg HCO3 (21-28) mmol/L ABG pH (7.35-7.45) ABG Total CO2 (22-28) mmol.L ABG O2 Saturation (95-98) % ABG O2 Content (15-23) ML/dl ABG Base Excess (-2.0-3.0) mmol/L ABG Hemoglobin (11.7-17.4) g/dL ABG Carboxyhemoglobin (0.5-1.5) % POC ABG HHb (Measured) (0-5) % ABG Methemoglobin (0.0-3.0) % ABG O2 Capacity (16-24) mL/dl Hgb O2 Saturation (95.0-98.0) % FiO2 % Sodium (132-148) mmol/L Potassium (3.6-5.0) mmol/L Chloride (98-107) mmol/L Carbon Dioxide (21-33) mmol/L Anion Gap (10-20) BUN (7-21) mg/dL Creatinine (0.8-1.5) mg/dl Est GFR ( Amer) Est GFR (Non-Af Amer) POC Glucose (mg/dL) 372 H 403 H* 404 H* (65-110) mg/dL Random Glucose (70-110) mg/dL Calcium (8.4-10.5) mg/dL Phosphorus (2.5-4.5) mg/dL Magnesium (1.7-2.2) mg/dL Total Bilirubin (0.2-1.3) mg/dL AST (17-59) U/L ALT (7-56) U/L Alkaline Phosphatase (38-126) U/L Total Protein (5.8-8.3) g/dL Albumin (3.0-4.8) g/dL Globulin gm/dL Albumin/Globulin Ratio (1.1-1.8) Procalcitonin (0.19-0.49) NG/ML Rheumatoid Factor IgG (<=6) U Rheumatoid Factor IgA (<=6) U Rheumatoid Factor IgM (<=6) U Glomerular Base Mem IgG (<1.0) AI 07/14/18 07/14/18 07/09/18 Range/Units 20:00 17:22 06:39 WBC (4.5-11.0) 10^3/uL RBC (3.5-6.1) 10^6/uL Hgb (14.0-18.0) g/dL Hct (42.0-52.0) % MCV (80.0-105.0) fl MCH (25.0-35.0) pg MCHC (31.0-37.0) g/dl RDW (11.5-14.5) % Plt Count (120.0-450.0) 10^3/uL Gran % (50.0-68.0) % Lymph % (Auto) (22.0-35.0) % [place] % (Auto) (1.0-6.0) % Eos % (Auto) (1.5-5.0) % Baso % (Auto) (0.0-3.0) % Gran # (1.4-6.5) Lymph # (Auto) (1.2-3.4) [place] # (Auto) (0.1-0.6) Eos # (Auto) (0.0-0.7) Baso # (Auto) (0.0-2.0) K/mm3 pCO2 (35-45) mm/Hg pO2 (80-100) mm/Hg HCO3 (21-28) mmol/L ABG pH (7.35-7.45) ABG Total CO2 (22-28) mmol.L ABG O2 Saturation (95-98) % ABG O2 Content (15-23) ML/dl ABG Base Excess (-2.0-3.0) mmol/L ABG Hemoglobin (11.7-17.4) g/dL ABG Carboxyhemoglobin (0.5-1.5) % POC ABG HHb (Measured) (0-5) % ABG Methemoglobin (0.0-3.0) % ABG O2 Capacity (16-24) mL/dl Hgb O2 Saturation (95.0-98.0) % FiO2 % Sodium (132-148) mmol/L Potassium (3.6-5.0) mmol/L Chloride (98-107) mmol/L Carbon Dioxide (21-33) mmol/L Anion Gap (10-20) BUN (7-21) mg/dL Creatinine (0.8-1.5) mg/dl Est GFR ( Amer) Est GFR (Non-Af Amer) POC Glucose (mg/dL) 283 H (65-110) mg/dL Random Glucose (70-110) mg/dL Calcium (8.4-10.5) mg/dL Phosphorus (2.5-4.5) mg/dL Magnesium (1.7-2.2) mg/dL Total Bilirubin (0.2-1.3) mg/dL AST (17-59) U/L ALT (7-56) U/L Alkaline Phosphatase (38-126) U/L Total Protein (5.8-8.3) g/dL Albumin (3.0-4.8) g/dL Globulin gm/dL Albumin/Globulin Ratio (1.1-1.8) Procalcitonin 0.60 H (0.19-0.49) NG/ML Rheumatoid Factor IgG (<=6) U Rheumatoid Factor IgA (<=6) U Rheumatoid Factor IgM (<=6) U Glomerular Base Mem IgG <1.0 (<1.0) AI 07/08/18 Range/Units 15:00 WBC (4.5-11.0) 10^3/uL RBC (3.5-6.1) 10^6/uL Hgb (14.0-18.0) g/dL Hct (42.0-52.0) % MCV (80.0-105.0) fl MCH (25.0-35.0) pg MCHC (31.0-37.0) g/dl RDW (11.5-14.5) % Plt Count (120.0-450.0) 10^3/uL Gran % (50.0-68.0) % Lymph % (Auto) (22.0-35.0) % [place] % (Auto) (1.0-6.0) % Eos % (Auto) (1.5-5.0) % Baso % (Auto) (0.0-3.0) % Gran # (1.4-6.5) Lymph # (Auto) (1.2-3.4) [place] # (Auto) (0.1-0.6) Eos # (Auto) (0.0-0.7) Baso # (Auto) (0.0-2.0) K/mm3 pCO2 (35-45) mm/Hg pO2 (80-100) mm/Hg HCO3 (21-28) mmol/L ABG pH (7.35-7.45) ABG Total CO2 (22-28) mmol.L ABG O2 Saturation (95-98) % ABG O2 Content (15-23) ML/dl ABG Base Excess (-2.0-3.0) mmol/L ABG Hemoglobin (11.7-17.4) g/dL ABG Carboxyhemoglobin (0.5-1.5) % POC ABG HHb (Measured) (0-5) % ABG Methemoglobin (0.0-3.0) % ABG O2 Capacity (16-24) mL/dl Hgb O2 Saturation (95.0-98.0) % FiO2 % Sodium (132-148) mmol/L Potassium (3.6-5.0) mmol/L Chloride (98-107) mmol/L Carbon Dioxide (21-33) mmol/L Anion Gap (10-20) BUN (7-21) mg/dL Creatinine (0.8-1.5) mg/dl Est GFR ( Amer) Est GFR (Non-Af Amer) POC Glucose (mg/dL) (65-110) mg/dL Random Glucose (70-110) mg/dL Calcium (8.4-10.5) mg/dL Phosphorus (2.5-4.5) mg/dL Magnesium (1.7-2.2) mg/dL Total Bilirubin (0.2-1.3) mg/dL AST (17-59) U/L ALT (7-56) U/L Alkaline Phosphatase (38-126) U/L Total Protein (5.8-8.3) g/dL Albumin (3.0-4.8) g/dL Globulin gm/dL Albumin/Globulin Ratio (1.1-1.8) Procalcitonin (0.19-0.49) NG/ML Rheumatoid Factor IgG <5 (<=6) U Rheumatoid Factor IgA <5 (<=6) U Rheumatoid Factor IgM <5 (<=6) U Glomerular Base Mem IgG (<1.0) AI Laboratory Results - last 24 hr 07/08/18 07/09/18 07/14/18 15:00 06:39 17:22 WBC RBC Hgb Hct MCV MCH MCHC RDW Plt Count Gran % Lymph % (Auto) [place] % (Auto) Eos % (Auto) Baso % (Auto) Gran # Lymph # (Auto) [place] # (Auto) Eos # (Auto) Baso # (Auto) pCO2 pO2 HCO3 ABG pH ABG Total CO2 ABG O2 Saturation ABG O2 Content ABG Base Excess ABG Hemoglobin ABG Carboxyhemoglobin POC ABG HHb (Measured) ABG Methemoglobin ABG O2 Capacity Hgb O2 Saturation FiO2 Sodium Potassium Chloride Carbon Dioxide Anion Gap BUN Creatinine Est GFR ( Amer) Est GFR (Non-Af Amer) POC Glucose (mg/dL) 283 H Random Glucose Calcium Phosphorus Magnesium Total Bilirubin AST ALT Alkaline Phosphatase Total Protein Albumin Globulin Albumin/Globulin Ratio Procalcitonin Rheumatoid Factor IgG <5 Rheumatoid Factor IgA <5 Rheumatoid Factor IgM <5 Glomerular Base Mem IgG <1.0 07/14/18 07/14/18 07/14/18 20:00 22:31 22:34 WBC RBC Hgb Hct MCV MCH MCHC RDW Plt Count Gran % Lymph % (Auto) [place] % (Auto) Eos % (Auto) Baso % (Auto) Gran # Lymph # (Auto) [place] # (Auto) Eos # (Auto) Baso # (Auto) pCO2 pO2 HCO3 ABG pH ABG Total CO2 ABG O2 Saturation ABG O2 Content ABG Base Excess ABG Hemoglobin ABG Carboxyhemoglobin POC ABG HHb (Measured) ABG Methemoglobin ABG O2 Capacity Hgb O2 Saturation FiO2 Sodium Potassium Chloride Carbon Dioxide Anion Gap BUN Creatinine Est GFR ( Amer) Est GFR (Non-Af Amer) POC Glucose (mg/dL) 404 H* 403 H* Random Glucose Calcium Phosphorus Magnesium Total Bilirubin AST ALT Alkaline Phosphatase Total Protein Albumin Globulin Albumin/Globulin Ratio Procalcitonin 0.60 H Rheumatoid Factor IgG Rheumatoid Factor IgA Rheumatoid Factor IgM Glomerular Base Mem IgG 07/15/18 07/15/18 07/15/18 00:48 05:18 05:25 WBC 19.8 H D RBC 3.71 Hgb 9.7 L Hct 32.4 L MCV 87.3 MCH 26.1 MCHC 29.9 L RDW 17.1 H Plt Count 64 L Gran % 91.6 H Lymph % (Auto) 6.3 L [place] % (Auto) 2.1 Eos % (Auto) 0.0 L Baso % (Auto) 0.0 Gran # 18.14 H Lymph # (Auto) 1.3 [place] # (Auto) 0.4 Eos # (Auto) 0.0 Baso # (Auto) 0.00 pCO2 41 pO2 138.0 H HCO3 25.4 ABG pH 7.40 ABG Total CO2 26.7 ABG O2 Saturation 99.5 H ABG O2 Content 13.4 L ABG Base Excess 0.5 ABG Hemoglobin 9.6 L ABG Carboxyhemoglobin 1.8 H POC ABG HHb (Measured) 0.5 ABG Methemoglobin 0.9 ABG O2 Capacity 13.5 L Hgb O2 Saturation 96.9 FiO2 50.0 Sodium Potassium Chloride Carbon Dioxide Anion Gap BUN Creatinine Est GFR ( Amer) Est GFR (Non-Af Amer) POC Glucose (mg/dL) 372 H Random Glucose Calcium Phosphorus Magnesium Total Bilirubin AST ALT Alkaline Phosphatase Total Protein Albumin Globulin Albumin/Globulin Ratio Procalcitonin Rheumatoid Factor IgG Rheumatoid Factor IgA Rheumatoid Factor IgM Glomerular Base Mem IgG 07/15/18 07/15/18 07/15/18 05:25 06:01 08:11 WBC RBC Hgb Hct MCV MCH MCHC RDW Plt Count Gran % Lymph % (Auto) [place] % (Auto) Eos % (Auto) Baso % (Auto) Gran # Lymph # (Auto) [place] # (Auto) Eos # (Auto) Baso # (Auto) pCO2 pO2 HCO3 ABG pH ABG Total CO2 ABG O2 Saturation ABG O2 Content ABG Base Excess ABG Hemoglobin ABG Carboxyhemoglobin POC ABG HHb (Measured) ABG Methemoglobin ABG O2 Capacity Hgb O2 Saturation FiO2 Sodium 153 H Potassium 5.1 H Chloride 120 H Carbon Dioxide 27 Anion Gap 11 BUN 109 H Creatinine 2.2 H Est GFR ( Amer) 37 Est GFR (Non-Af Amer) 30 POC Glucose (mg/dL) 251 H 241 H Random Glucose 265 H Calcium 8.7 Phosphorus 4.4 Magnesium 2.3 H Total Bilirubin 1.1 AST 43 ALT 96 H Alkaline Phosphatase 81 Total Protein 7.2 Albumin 3.3 Globulin 3.9 Albumin/Globulin Ratio 0.9 L Procalcitonin Rheumatoid Factor IgG Rheumatoid Factor IgA Rheumatoid Factor IgM Glomerular Base Mem IgG 07/15/18 11:59 WBC RBC Hgb Hct MCV MCH MCHC RDW Plt Count Gran % Lymph % (Auto) [place] % (Auto) Eos % (Auto) Baso % (Auto) Gran # Lymph # (Auto) [place] # (Auto) Eos # (Auto) Baso # (Auto) pCO2 pO2 HCO3 ABG pH ABG Total CO2 ABG O2 Saturation ABG O2 Content ABG Base Excess ABG Hemoglobin ABG Carboxyhemoglobin POC ABG HHb (Measured) ABG Methemoglobin ABG O2 Capacity Hgb O2 Saturation FiO2 Sodium Potassium Chloride Carbon Dioxide Anion Gap BUN Creatinine Est GFR ( Amer) Est GFR (Non-Af Amer) POC Glucose (mg/dL) 236 H Random Glucose Calcium Phosphorus Magnesium Total Bilirubin AST ALT Alkaline Phosphatase Total Protein Albumin Globulin Albumin/Globulin Ratio Procalcitonin Rheumatoid Factor IgG Rheumatoid Factor IgA Rheumatoid Factor IgM Glomerular Base Mem IgG Radiology Impressions: Radiology Impressions Chest X-Ray 07/15/18 06:00 IMPRESSION: No significant interval change compared to the prior examination(s). Critical Care Progress Note - Nutrition Nutrition: Nutrition Category Date Time Status NPO Diet [DIET] Diets 07/06/18 Breakfast Ordered Addendum Addendum: 07/15/18 17:50 ICU Attending Addendum Patient seen and examined. Case reviewed on round with housestaff. Agree with resident note above with the following additions/exceptions 62M smoker with COPD, HTN, DM, PVD admitted with septic shock from influ A resulting in multi organ failure. ARDS now resolved - Intubated for resp support and hypoxia. plan to extubate today as he is tolerated PS 5/5 all morning still having low grade temps possibly from drug fever abx as per ID would d/c all abx Elevated TNI likely demand from shock vs ID off pressors hep drip held for low plat cardio managing thrombocytopenia mmt as per hem onc hx of ITP, plat improved today OG ATN on HD HD rec'd yesterday he is very weak likely from prolonged immobilization and having rec'd steroids/paralytics for ARDS tx will need significant PT SCD for DVT ppx PPI for GI ppx Rest of care above Junior Mitchell MD Pulmonary Critical Care Attending Critical Care Time: 31 mins
--- NOTE | 2018-07-15 08:46 | PN ---
DATE: 07/15/2018(640am-730am) PULMONARY NOTE SUBJECTIVE: The patient remains on the ventilator. He is much more awake and alert this morning. PHYSICAL EXAMINATION: VITALS: Last temperature recorded is 99, pulse on the monitor is 90, respiratory rate 20, and blood pressure 132/72. HEENT: Normocephalic, atraumatic. No JVD. CARDIOVASCULAR: Systolic ejection murmur at the lower left sternal border. No S3 gallop. LUNGS: Decreased breath sounds at the bases. Very minimal/less rhonchi. No wheezing. EXTREMITIES: Mild edema. No cyanosis, no clubbing. Calves are nontender to palpation. GASTROINTESTINAL: Abdomen is soft, nontender, and nondistended. Bowel sounds are positive. SKIN: No acute rash. NEUROLOGIC: Exam limited at the present time. 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 The chest x-ray continues to improve-- with decreased bilateral pulmonary infiltrates. Official results are pending. Arterial blood gas was done on CPAP and pressure support with 50% oxygen. Results are: PH 7.40, pCO2 of 41, pO2 of 138. IMPRESSION: 1. Respiratory failure. 2. Bilateral pneumonia. 3. Rule out myocardial infarction. 4. Ischemic dilated cardiomyopathy. 5. Renal failure. 6. Anemia, thrombocytopenia. 7. Chronic obstructive pulmonary disease. PLAN: The patient remains on the ventilator. He is currently on CPAP and pressure support. He is much less sedated. He does appear comfortable. I did discuss the case with the night nurse at length. The night nurse stated the patient had a very good night. I did review the chest x-ray as above. The chest x-ray continues to improve, with decreased bilateral pulmonary infiltrates. I have also reviewed the arterial blood gas. The arterial blood gas is also improved with a decrease in the alveolar-arterial gradient. Hopefully, we will continue with the weaning trials this morning. I will discuss the above with the ICU team. On physical exam, there is no significant bronchospasm noted. I would continue with the current nebulizer treatments and low-dose steroids for now. The patient remains on antibiotic therapy - as per Infectious Disease. Low-grade temperatures persist. Input by Cardiology (Dr. Saxena) is also noted. Clinical status of the patient is significantly improved - compared to the initial presentation. Given the above, the future status/prognosis does remain guarded overall. I will discuss the above with the entire ICU team in the next few moments. I will also discuss the above with the attending physician later this morning. Balta Burr MD [facility]
--- NOTE | 2018-07-15 09:02 | PN ---
SUBJECTIVE: The patient was seen and examined at bedside in the ICU. No acute events overnight. He remains afebrile and is s/p a short session of dialysis yesterday. This morning he is awake and alert but remains intubated. OBJECTIVE: VITAL SIGNS: Temperature 99, pulse 94, blood pressure 132/72, respiratory rate 20, oxygen saturation 100% on 50% FiO2. GENERAL: No apparent distress. HEENT: PERRL. ETT in place. OGT in place. NECK: No JVD. LUNGS: Coarse anterior breath sounds. CARDIOVASCULAR: Irregularly irregular. Normal S1, S2. ABDOMEN: Normoactive bowel sounds. Soft, nondistended. EXTREMITIES: 1+ edema in all extremities. Central venous catheter placed to left groin with site of layer appearing clean, dry and intact. NEUROLOGIC: Awake and alert, opens eyes to name and moves eyes on request, withdraws from noxious stimuli, not moving extremities. LABORATORY DATA: WBC 19.8 with 92% neutrophils, hemoglobin 9.7, hematocrit 32, platelets 64. Sodium 153, potassium 5.1, chloride 120, bicarb 27, BUN 109, creatinine 2.2, glucose 265. Blood cultures with no growth to date. Urine culture with no growth to date. ASSESSMENT: The patient is a 62-year-old man with multiple medical comorbidities who was admitted to the ICU s/p intubation for acute hypoxic respiratory failure secondary to severe sepsis secondary to community-acquired pneumonia and multiorgan system failure. PLAN: 1. Acute hypoxic respiratory failure s/p intubation. Input from Dr. Burr and ICU team appreciated. Continue with care as per ICU team. 2. Severe sepsis secondary to community-acquired pneumonia with influenza. Input from Dr. Fernandes appreciated. Cultures remain negative. Continue with current antimicrobials as per Dr. Fernandes. 3. Acute kidney injury, consider secondary to ATN in the setting of severe sepsis, resolving. Input from Dr. Mcnamara appreciated. Continue with care as per Dr. Mcnamara. Continue to monitor strict I&O's, renally dose medications and avoid nephrotoxins. 4. NSTEMI. Input from Dr. Saxena appreciated. The patient will likely require cardiac catheterization when medically stabilized. 5. Atrial fibrillation, new onset, rate controlled. Continue Diltiazem and Digoxin. 6. Acute systolic heart failure. Input from Dr. Saxena appreciated. As above, the patient will require cardiac catheterization when medically stabilized. Continue with care as per Dr. Saxena. 7. Transaminitis, likely secondary to shock liver in the setting of severe sepsis, resolved. 8. Thrombocytopenia secondary to ITP. Input from Dr. Estevez appreciated. The patient is s/p a course of IVIG and has received a total of 4 units of platelets. Continue with care as per Dr. Estevez. 9. Normocytic anemia. Labs with stable H/H and no evidence of active bleed. 10. Type 2 diabetes mellitus, uncontrolled. Continue to taper Solu-Medrol as allowed. Continue with Levemir and high-dose insulin sliding scale. 11. Hypertension. 12. Pseudogout. 13. Anxiety disorder. 14. GERD. 15. Prophylaxis. Continue Protonix for GI prophylaxis and SCDs for DVT prophylaxis. CODE STATUS: Full code. Yassine Martinez MD MTDD
[2018-07-15] MEDS: MEROPENEM 500 MG in NS 500 MG/50 ML BAG IVPB SCH ×2 (09:24→21:24)
[2018-07-15] MEDS ORDERED: MethylPREDNISolone 40 mg Vial IVP SCH (10:00)
--- NOTE | 2018-07-15 12:15 | RAD ---
Date of service: 07/15/2018 HISTORY: Follow-up. COMPARISON: July 14, 2018. FINDINGS: LUNGS: No active pulmonary disease. PLEURA: No significant pleural effusion identified, no pneumothorax apparent. CARDIOVASCULAR: No atherosclerotic calcification present No radiographic findings to suggest acute or significant cardiovascular disease. Stable cardiomegaly OSSEOUS STRUCTURES: No significant abnormalities. VISUALIZED UPPER ABDOMEN: Normal. OTHER FINDINGS: Stable position of support apparatus including endotracheal tube and nasogastric tube. IMPRESSION: No significant interval change compared to the prior examination(s).
--- NOTE | 2018-07-15 13:40 | PN ---
DATE: 07/15/2018 CARDIOLOGY FOLLOWUP SUBJECTIVE: The patient is extubated today. He is lethargic, but arousable. PHYSICAL EXAMINATION: VITAL SIGNS: Blood pressure is 132/72, heart rate is in the 90s. NECK: Negative JVD. LUNGS: Decreased breath sounds. HEART: Reveals S1, S2. EXTREMITIES: Without change. LABORATORY DATA: Hemoglobin is 9.7, BUN and creatinine is 109 and 2.2, glucose is 265. IMPRESSION: 1. Status post respiratory failure. 2. Renal failure. 3. End-stage renal disease. 4. Dilated cardiomyopathy. 5. Thrombocytopenia. ASSESSMENT AND PLAN: Given these findings, the patient is hemodynamically stable. Need to observe on telemetry carefully. Benjamin Saxena MD
[2018-07-15] MEDS: Digoxin 500 mcg/2ml (0.5 mg/2ml) Inj IVP SCH (14:01)
--- NOTE | 2018-07-15 15:48 | PN ---
DATE: 07/15/2018 SUBJECTIVE: The patient is seen earlier today in [facility], bed 5 in the ICU. The patient remains intubated. He appears to be improving. He has had low-grade fevers and no diarrhea or constipation. PHYSICAL EXAMINATION: VITAL SIGNS: Temperature is 99, T-max is 100.5, blood pressure is 130/70, the patient is on the vent, heart rate of 94. HEENT: Reveals ET tube in place. NECK: Supple. LUNGS: Have decreased breath sounds. HEART: Normal S1, S2. ABDOMEN: Soft, nontender. No rebound or guarding. LABORATORY EXAMINATION: Reveals a white count of 19,800. Review of the medications reveals the patient to be on doxycycline, meropenem, and Solu-Medrol. The patient's chest x-ray this morning is done, and results are pending. ASSESSMENT AND PLAN: This is a 62-year-old with severe sepsis, hypoxic respiratory failure, ventilator-dependent respiratory failure, vcoim-yr-mhmezal renal failure, thrombocytopenia, right-sided community-acquired pneumonia, status post influenza with fevers, intermittently on meropenem and doxycycline. Repeat cultures are negative. We will check on the repeat sputum culture also. The patient does have an increase in the white count this morning, same dose of prednisone, and the patient's repeat procalcitonin is pending. We will continue present course. Yesterday's chest x-ray reveals the patient to be with congestion. We will follow with you. Satya Fernandes MD
[2018-07-15] MEDS: Insulin Detemir 100 units/ml Vial (Levemir) SC SCH (22:41)
--- NOTE | 2018-07-16 00:56 | PN ---
DATE: 07/15/2018 LOCATION: The patient is in ICU, bed 5. SUBJECTIVE: This is a hematology/oncology consultation followup for the patient with ITP which progressively improving. Subjectively, the patient is examined at bedside in the ICU. No acute events were noted overnight. He remains afebrile. He had dialysis yesterday. The patient is awake and alert, but remains intubated. OBJECTIVE: VITAL SIGNS: Vital signs are stable. T-max is 99, pulse is 94, blood pressure is 132/72, respirations are 20, and O2 sat is 100% on 50% FiO2. GENERAL: The patient appears to be in no acute distress. HEENT: Head is normocephalic and atraumatic. ET tube is in place. OGT is in place. The patient has no bleeding in either of the tubes. NECK: Supple. There is no adenopathy. LUNGS: Reveal course breath sounds with scattered wheeze. CARDIOVASCULAR SYSTEM: Reveals S1 and S2 to be irregular. The patient is on Cardizem drip for atrial fibrillation. ABDOMEN: Soft, nondistended. No rebound, rigidity, or guarding is noted. EXTREMITIES: Reveal 1+ edema of all extremities. CVC is in place, left groin. Site appears to be dry. The patient has a chronic nonhealing wound in the right ankle area. NEUROLOGIC: The patient is awake and alert, opens his eyes, and is able to move his eyes on request. LABORATORY DATA: Reveals a white count of 19.8, hemoglobin 9.7, hematocrit 32, and platelet count of 64,000. This is post IVIG. Sodium is 153, potassium is 5.1, chloride 120, bicarb 27, BUN 109, creatinine 2.2, glucose 265. Blood cultures and urine cultures are negative today. ASSESSMENT, NOTES AND PLAN: The patient has multiple comorbid medical issues. Admitted to the hospital with bilateral pneumonia, high alveolar-arterial gradient; acute kidney injury; and profound thrombocytopenia, the sequelae of all of this on top of which established diagnosis of idiopathic thrombocytopenic purpura. PLAN: I would continue expectant observation at this time. If the patient's platelet count continues to drop, we will assess the patient for treating with Nplate at this point in time. He is off antibiotics. Plan would be to extubate him and continue aggressive care from the point of view of respiratory status is concerned. We will follow the patient with you and make appropriate recommendations. Sandra Estevez MD [facility] # [id number]
[2018-07-16] MEDS: Albuterol-Ipratrop 3 mg / 0.5 (3 ml) UD IH SCH ×4 (01:20→19:59)
--- NOTE | 2018-07-16 02:25 | PN ---
DATE: 07/15/2018 SUBJECTIVE: The patient is seen lying in bed, in the ICU. He is extubated. He is awake. Eyes are open. Not really following commands. Unclear if he is responding to what I say or just blinking. PHYSICAL EXAMINATION: GENERAL: Elderly male, lying in bed, in the ICU. VITAL SIGNS: Blood pressure 124/73, heart rate 104, respiratory rate 24, temperature 99.5. HEENT: Normocephalic, atraumatic, positive pallor. NECK: Supple, no JVD. LUNGS: Bilateral equal air entry, bilateral rhonchi, no rales appreciated anteriorly. CARDIAC: S1 and S2, regular rate and rhythm, no murmur, no rub. ABDOMEN: Soft, nondistended, nontender, bowel sounds present. EXTREMITIES: No lower extremity edema. INTAKE AND OUTPUT: 1430/4200, 2200 urine output and 2000 on dialysis yesterday. LABORATORY DATA: WBC 19.8, hemoglobin 9.7, hematocrit 32, platelets 64. Sodium 153, potassium 5.1, chloride 120, CO2 of 27, BUN 109, creatinine 2.2, glucose 265, and calcium 8.7. Phosphorus 4.4, magnesium 2.3. AST 43, ALT 96. Urinalysis: Yellow, clear, pH 6.0, specific gravity 1.020, protein 30, glucose greater than 1000, blood moderate, leukocyte esterase negative. Stool occult negative. Digoxin 0.8. C3 of 59, C4 of 14. ANCA screen, negative. Sputum culture, yeast. CURRENT MEDICATIONS: Cardizem 5 mg per hour, doxycycline 100 every 12 hours, DuoNeb, insulin, digoxin, Levemir, meropenem 500 every 12 hours, Protonix, Solu-Medrol, Tylenol, vitamin A. ASSESSMENT: 1. Acute kidney injury superimposed on chronic kidney disease stage III, baseline creatinine around 1.8. 2. Severe sepsis, respiratory failure, pneumonia. 3. Severe cardiomyopathy, decreased ejection fraction, congestive heart failure, volume overload. 4. Chronic obstructive pulmonary disease. 5. Hypertension. 6. Iwk-[id number] diabetes mellitus. 7. Idiopathic thrombocytopenic purpura/thrombocytopenia. 8. Community-acquired pneumonia and influenza. PLAN: 1. No indication for dialysis today, the patient is urinating; in fact right now, he is prerenal; his BUN is much higher than his creatinine. This is most likely because of sepsis, hypercatabolic state. 2. Continue antibiotics as per ID recommendations. 3. Avoid nephrotoxins. 4. Place NG tube to administer free water. 5. Monitor urine output closely. 6. No intervention needed for mild hyperkalemia. Case discussed with ICU staff at length, more than 35 minutes spent in care coordination. Bobbi Sullivan MD
[2018-07-16] MEDS: Insulin Reg-HIGH-Coverage SC SCH ×4 (05:49→23:01)
[2018-07-16 06:10] LABS: ARTERIAL BLOOD GAS HCO3 23.6 mmol/L (21-28); ARTERIAL BLOOD GAS O2 CAPACITY 12.5 mL/dl (16-24); ARTERIAL BLOOD GAS O2 CONTENT 12.4 ML/dl (15-23); ARTERIAL BLOOD GAS O2 SAT 99.1 % (95-98); ARTERIAL BLOOD GAS PCO2 34 mm/Hg (35-45); ARTERIAL BLOOD GAS PH 7.45 (7.35-7.45); ARTERIAL BLOOD GAS TCO2 24.6 mmol.L (22-28)
--- NOTE | 2018-07-16 06:44 | CP.CCUPN ---
<Ismael Turner - Last Filed: 07/16/18 12:17> CCU Subjective - Physician Review Subjective (Free Text): Ismael Turner, PGY-1 Progress Note for ICU Patient seen and evaluated at bedside. Afebrile overnight. Extubated yesterday. Responsive and following commands to squeeze hand and blink but unable to move extremities at this time. Opens eyes spontaneously and is able to track. On Cardizem drip at 5 mcg currently. Further ROS was unobtainable at this time due to clinical condition. CCU Objective - Vital Signs / Intake & Output Intake and Output (Last 8hrs): Intake & Output 07/15/18 07/15/18 07/16/18 14:59 22:59 06:59 Intake Total 100 310 Output Total 1400 Balance 100 -1090 Intake: IV 100 310 R femoral dialysis cath 310 Output: Urine 1400 Urethral (Ash) 1400 Other: # Bowel Movements 0 - Physical Exam Physical Exam Limitations: Positive for: Clinical Condition (polyneuropathy) Head: Positive for: Atraumatic, Normocephalic Pupils: Positive for: PERRL Extroacular Muscles: Positive for: EOMI Conjunctiva: Positive for: Normal Mouth: Positive for: Dry, Drooling Pharnyx: Positive for: Other (Extubated) Respiratory/Chest: Positive for: Clear to Auscultation, Good Air Exchange, Decreased Breath Sounds. Negative for: Respiratory Distress, Wheezes, Tachypneic Cardiovascular: Positive for: Normal S1, S2, Irregular Rhythm. Negative for: Murmurs Abdomen: Positive for: Distention. Negative for: Tenderness, Peritoneal Signs Back: Positive for: Normal Inspection Upper Extremity: Positive for: Normal Inspection, Other (No spontaneous motor movement at this time in upper extremities). Negative for: Cyanosis, Edema Lower Extremity: Positive for: Edema (2+ pitting edema noted to right lower extremity; chronic diabetic ulcer noted to anterior anderson of left lower extremity ) Neurological: Negative for: GCS=15, CN [id number] Intact Skin: Positive for: Warm, Dry, Normal Color. Negative for: Rashes Psychiatric: Positive for: Alert (responds to verbal and painful stimuli). Negative for: Oriented x 3, Normal Insight, Normal Concentration - Medications Active Medications: Active Medications Generic Name Dose Route Start Last Admin Trade Name Freq PRN Reason Stop Dose Admin Acetaminophen 650 mg 07/08/18 18:18 07/14/18 12:29 Tylenol 650mg/20.3ml Solution Ud PO 650 mg Q6H PRN Administration Fever 101F Albuterol/Ipratropium 3 ml 07/03/18 14:00 07/16/18 01:20 Duoneb 3 Mg/0.5 Mg (3 Ml) Ud IH 3 ml [id number] SEEMA Administration Albuterol/Ipratropium 3 ml 07/03/18 11:04 07/11/18 23:55 Duoneb 3 Mg/0.5 Mg (3 Ml) Ud IH 3 ml Q2H PRN Administration Shortness of Breath Digoxin 0.125 mg 07/13/18 14:00 07/15/18 14:01 Lanoxin IVP 0.125 mg 1400 SEEMA Administration Heparin Sodium (Porcine) 3,000 units 07/11/18 10:09 07/14/18 15:43 Heparin IVP 3,000 units ONCE PRN Administration Other Meropenem/Sodium Chloride 500 mg in 50 mls @ 100 mls/hr 07/10/18 22:00 07/15/18 21:24 Merrem Iv 500 Mg/Ns 50 Ml IVPB 07/17/18 23:00 100 mls/hr Q12 SEEMA Administration Protocol diltiaZEM IVPB 100mg in NS 100 mls @ 5 mls/hr 07/11/18 17:41 07/15/18 10:00 Cardizem 100mg In Ns IV 5 mg/hr .Q20H PRN 5 mls/hr TITRATE PER MD ORDER Administration Protocol 5 MG/HR Doxycycline Hyclate 100 mg/ 100 mls @ 100 mls/hr 07/13/18 11:30 07/15/18 21:24 Sodium Chloride IVPB 100 mls/hr Q12 SEEMA Administration Protocol Insulin Detemir 20 unit 07/13/18 10:18 07/15/18 22:41 Levemir SC 20 unit HS SEEMA Administration Insulin Human Regular 0 units 07/12/18 11:15 07/16/18 05:49 Humulin R High SC 4 units Q6H SEEMA Administration Protocol Methylprednisolone 20 mg 07/15/18 10:00 07/15/18 09:26 Solu-Medrol IVP 20 mg DAILY SEEMA Administration Pantoprazole Sodium 40 mg 07/03/18 14:15 07/15/18 09:26 Protonix Inj IVP 40 mg DAILY SEEMA Administration Vitamin A 1 applic 07/13/18 16:53 Vitamin A&D TP Q8 PRN Dry mouth - Patient Studies Lab Studies: Microbiology Studies 07/13/18 12:10 Gram Stain - Final Trachasp Sputum Culture - Final Yeast Species 07/13/18 10:20 Blood Culture - Preliminary Blood-Venous NO GROWTH AFTER 48 HOURS 07/13/18 10:00 Blood Culture - Preliminary Blood-Venous NO GROWTH AFTER 48 HOURS Lab Studies 07/16/18 07/16/18 07/16/18 Range/Units 05:40 05:30 01:25 WBC (4.5-11.0) 10^3/uL RBC (3.5-6.1) 10^6/uL Hgb (14.0-18.0) g/dL Hct (42.0-52.0) % MCV (80.0-105.0) fl MCH (25.0-35.0) pg MCHC (31.0-37.0) g/dl RDW (11.5-14.5) % Plt Count (120.0-450.0) 10^3/uL Gran % (50.0-68.0) % Lymph % (Auto) (22.0-35.0) % [place] % (Auto) (1.0-6.0) % Eos % (Auto) (1.5-5.0) % Baso % (Auto) (0.0-3.0) % Gran # (1.4-6.5) Lymph # (Auto) (1.2-3.4) [place] # (Auto) (0.1-0.6) Eos # (Auto) (0.0-0.7) Baso # (Auto) (0.0-2.0) K/mm3 pCO2 34 L (35-45) mm/Hg pO2 126.0 H (80-100) mm/Hg HCO3 23.6 (21-28) mmol/L ABG pH 7.45 (7.35-7.45) ABG Total CO2 24.6 (22-28) mmol.L ABG O2 Saturation 99.1 H (95-98) % ABG O2 Content 12.4 L (15-23) ML/dl ABG Base Excess -0.1 (-2.0-3.0) mmol/L ABG Hemoglobin 9.0 L (11.7-17.4) g/dL ABG Carboxyhemoglobin 2.1 H (0.5-1.5) % POC ABG HHb (Measured) 0.9 (0-5) % ABG Methemoglobin 0.9 (0.0-3.0) % ABG O2 Capacity 12.5 L (16-24) mL/dl Hgb O2 Saturation 96.2 (95.0-98.0) % FiO2 32.0 % Sodium (132-148) mmol/L Potassium (3.6-5.0) mmol/L Chloride (98-107) mmol/L Carbon Dioxide (21-33) mmol/L Anion Gap (10-20) BUN (7-21) mg/dL Creatinine (0.8-1.5) mg/dl Est GFR ( Amer) Est GFR (Non-Af Amer) POC Glucose (mg/dL) 245 H 293 H (65-110) mg/dL Random Glucose (70-110) mg/dL Calcium (8.4-10.5) mg/dL Phosphorus (2.5-4.5) mg/dL Magnesium (1.7-2.2) mg/dL Total Bilirubin (0.2-1.3) mg/dL AST (17-59) U/L ALT (7-56) U/L Alkaline Phosphatase (38-126) U/L Total Protein (5.8-8.3) g/dL Albumin (3.0-4.8) g/dL Globulin gm/dL Albumin/Globulin Ratio (1.1-1.8) Procalcitonin (0.19-0.49) NG/ML Rheumatoid Factor IgG (<=6) U Rheumatoid Factor IgA (<=6) U Rheumatoid Factor IgM (<=6) U 07/15/18 07/15/18 07/15/18 Range/Units 22:31 18:59 11:59 WBC (4.5-11.0) 10^3/uL RBC (3.5-6.1) 10^6/uL Hgb (14.0-18.0) g/dL Hct (42.0-52.0) % MCV (80.0-105.0) fl MCH (25.0-35.0) pg MCHC (31.0-37.0) g/dl RDW (11.5-14.5) % Plt Count (120.0-450.0) 10^3/uL Gran % (50.0-68.0) % Lymph % (Auto) (22.0-35.0) % [place] % (Auto) (1.0-6.0) % Eos % (Auto) (1.5-5.0) % Baso % (Auto) (0.0-3.0) % Gran # (1.4-6.5) Lymph # (Auto) (1.2-3.4) [place] # (Auto) (0.1-0.6) Eos # (Auto) (0.0-0.7) Baso # (Auto) (0.0-2.0) K/mm3 pCO2 (35-45) mm/Hg pO2 (80-100) mm/Hg HCO3 (21-28) mmol/L ABG pH (7.35-7.45) ABG Total CO2 (22-28) mmol.L ABG O2 Saturation (95-98) % ABG O2 Content (15-23) ML/dl ABG Base Excess (-2.0-3.0) mmol/L ABG Hemoglobin (11.7-17.4) g/dL ABG Carboxyhemoglobin (0.5-1.5) % POC ABG HHb (Measured) (0-5) % ABG Methemoglobin (0.0-3.0) % ABG O2 Capacity (16-24) mL/dl Hgb O2 Saturation (95.0-98.0) % FiO2 % Sodium (132-148) mmol/L Potassium (3.6-5.0) mmol/L Chloride (98-107) mmol/L Carbon Dioxide (21-33) mmol/L Anion Gap (10-20) BUN (7-21) mg/dL Creatinine (0.8-1.5) mg/dl Est GFR ( Amer) Est GFR (Non-Af Amer) POC Glucose (mg/dL) 322 H 346 H 236 H (65-110) mg/dL Random Glucose (70-110) mg/dL Calcium (8.4-10.5) mg/dL Phosphorus (2.5-4.5) mg/dL Magnesium (1.7-2.2) mg/dL Total Bilirubin (0.2-1.3) mg/dL AST (17-59) U/L ALT (7-56) U/L Alkaline Phosphatase (38-126) U/L Total Protein (5.8-8.3) g/dL Albumin (3.0-4.8) g/dL Globulin gm/dL Albumin/Globulin Ratio (1.1-1.8) Procalcitonin (0.19-0.49) NG/ML Rheumatoid Factor IgG (<=6) U Rheumatoid Factor IgA (<=6) U Rheumatoid Factor IgM (<=6) U 07/15/18 07/15/18 07/15/18 Range/Units 08:11 05:25 05:25 WBC 19.8 H D (4.5-11.0) 10^3/uL RBC 3.71 (3.5-6.1) 10^6/uL Hgb 9.7 L (14.0-18.0) g/dL Hct 32.4 L (42.0-52.0) % MCV 87.3 (80.0-105.0) fl MCH 26.1 (25.0-35.0) pg MCHC 29.9 L (31.0-37.0) g/dl RDW 17.1 H (11.5-14.5) % Plt Count 64 L (120.0-450.0) 10^3/uL Gran % 91.6 H (50.0-68.0) % Lymph % (Auto) 6.3 L (22.0-35.0) % [place] % (Auto) 2.1 (1.0-6.0) % Eos % (Auto) 0.0 L (1.5-5.0) % Baso % (Auto) 0.0 (0.0-3.0) % Gran # 18.14 H (1.4-6.5) Lymph # (Auto) 1.3 (1.2-3.4) [place] # (Auto) 0.4 (0.1-0.6) Eos # (Auto) 0.0 (0.0-0.7) Baso # (Auto) 0.00 (0.0-2.0) K/mm3 pCO2 (35-45) mm/Hg pO2 (80-100) mm/Hg HCO3 (21-28) mmol/L ABG pH (7.35-7.45) ABG Total CO2 (22-28) mmol.L ABG O2 Saturation (95-98) % ABG O2 Content (15-23) ML/dl ABG Base Excess (-2.0-3.0) mmol/L ABG Hemoglobin (11.7-17.4) g/dL ABG Carboxyhemoglobin (0.5-1.5) % POC ABG HHb (Measured) (0-5) % ABG Methemoglobin (0.0-3.0) % ABG O2 Capacity (16-24) mL/dl Hgb O2 Saturation (95.0-98.0) % FiO2 % Sodium 153 H (132-148) mmol/L Potassium 5.1 H (3.6-5.0) mmol/L Chloride 120 H (98-107) mmol/L Carbon Dioxide 27 (21-33) mmol/L Anion Gap 11 (10-20) BUN 109 H (7-21) mg/dL Creatinine 2.2 H (0.8-1.5) mg/dl Est GFR ( Amer) 37 Est GFR (Non-Af Amer) 30 POC Glucose (mg/dL) 241 H (65-110) mg/dL Random Glucose 265 H (70-110) mg/dL Calcium 8.7 (8.4-10.5) mg/dL Phosphorus 4.4 (2.5-4.5) mg/dL Magnesium 2.3 H (1.7-2.2) mg/dL Total Bilirubin 1.1 (0.2-1.3) mg/dL AST 43 (17-59) U/L ALT 96 H (7-56) U/L Alkaline Phosphatase 81 (38-126) U/L Total Protein 7.2 (5.8-8.3) g/dL Albumin 3.3 (3.0-4.8) g/dL Globulin 3.9 gm/dL Albumin/Globulin Ratio 0.9 L (1.1-1.8) Procalcitonin (0.19-0.49) NG/ML Rheumatoid Factor IgG (<=6) U Rheumatoid Factor IgA (<=6) U Rheumatoid Factor IgM (<=6) U 07/14/18 07/08/18 Range/Units 20:00 15:00 WBC (4.5-11.0) 10^3/uL RBC (3.5-6.1) 10^6/uL Hgb (14.0-18.0) g/dL Hct (42.0-52.0) % MCV (80.0-105.0) fl MCH (25.0-35.0) pg MCHC (31.0-37.0) g/dl RDW (11.5-14.5) % Plt Count (120.0-450.0) 10^3/uL Gran % (50.0-68.0) % Lymph % (Auto) (22.0-35.0) % [place] % (Auto) (1.0-6.0) % Eos % (Auto) (1.5-5.0) % Baso % (Auto) (0.0-3.0) % Gran # (1.4-6.5) Lymph # (Auto) (1.2-3.4) [place] # (Auto) (0.1-0.6) Eos # (Auto) (0.0-0.7) Baso # (Auto) (0.0-2.0) K/mm3 pCO2 (35-45) mm/Hg pO2 (80-100) mm/Hg HCO3 (21-28) mmol/L ABG pH (7.35-7.45) ABG Total CO2 (22-28) mmol.L ABG O2 Saturation (95-98) % ABG O2 Content (15-23) ML/dl ABG Base Excess (-2.0-3.0) mmol/L ABG Hemoglobin (11.7-17.4) g/dL ABG Carboxyhemoglobin (0.5-1.5) % POC ABG HHb (Measured) (0-5) % ABG Methemoglobin (0.0-3.0) % ABG O2 Capacity (16-24) mL/dl Hgb O2 Saturation (95.0-98.0) % FiO2 % Sodium (132-148) mmol/L Potassium (3.6-5.0) mmol/L Chloride (98-107) mmol/L Carbon Dioxide (21-33) mmol/L Anion Gap (10-20) BUN (7-21) mg/dL Creatinine (0.8-1.5) mg/dl Est GFR ( Amer) Est GFR (Non-Af Amer) POC Glucose (mg/dL) (65-110) mg/dL Random Glucose (70-110) mg/dL Calcium (8.4-10.5) mg/dL Phosphorus (2.5-4.5) mg/dL Magnesium (1.7-2.2) mg/dL Total Bilirubin (0.2-1.3) mg/dL AST (17-59) U/L ALT (7-56) U/L Alkaline Phosphatase (38-126) U/L Total Protein (5.8-8.3) g/dL Albumin (3.0-4.8) g/dL Globulin gm/dL Albumin/Globulin Ratio (1.1-1.8) Procalcitonin 0.60 H (0.19-0.49) NG/ML Rheumatoid Factor IgG <5 (<=6) U Rheumatoid Factor IgA <5 (<=6) U Rheumatoid Factor IgM <5 (<=6) U Laboratory Results - last 24 hr 07/08/18 07/14/18 07/15/18 15:00 20:00 05:25 WBC 19.8 H D RBC 3.71 Hgb 9.7 L Hct 32.4 L MCV 87.3 MCH 26.1 MCHC 29.9 L RDW 17.1 H Plt Count 64 L Gran % 91.6 H Lymph % (Auto) 6.3 L [place] % (Auto) 2.1 Eos % (Auto) 0.0 L Baso % (Auto) 0.0 Gran # 18.14 H Lymph # (Auto) 1.3 [place] # (Auto) 0.4 Eos # (Auto) 0.0 Baso # (Auto) 0.00 pCO2 pO2 HCO3 ABG pH ABG Total CO2 ABG O2 Saturation ABG O2 Content ABG Base Excess ABG Hemoglobin ABG Carboxyhemoglobin POC ABG HHb (Measured) ABG Methemoglobin ABG O2 Capacity Hgb O2 Saturation FiO2 Sodium Potassium Chloride Carbon Dioxide Anion Gap BUN Creatinine Est GFR ( Amer) Est GFR (Non-Af Amer) POC Glucose (mg/dL) Random Glucose Calcium Phosphorus Magnesium Total Bilirubin AST ALT Alkaline Phosphatase Total Protein Albumin Globulin Albumin/Globulin Ratio Procalcitonin 0.60 H Rheumatoid Factor IgG <5 Rheumatoid Factor IgA <5 Rheumatoid Factor IgM <5 07/15/18 07/15/18 07/15/18 05:25 08:11 11:59 WBC RBC Hgb Hct MCV MCH MCHC RDW Plt Count Gran % Lymph % (Auto) [place] % (Auto) Eos % (Auto) Baso % (Auto) Gran # Lymph # (Auto) [place] # (Auto) Eos # (Auto) Baso # (Auto) pCO2 pO2 HCO3 ABG pH ABG Total CO2 ABG O2 Saturation ABG O2 Content ABG Base Excess ABG Hemoglobin ABG Carboxyhemoglobin POC ABG HHb (Measured) ABG Methemoglobin ABG O2 Capacity Hgb O2 Saturation FiO2 Sodium 153 H Potassium 5.1 H Chloride 120 H Carbon Dioxide 27 Anion Gap 11 BUN 109 H Creatinine 2.2 H Est GFR ( Amer) 37 Est GFR (Non-Af Amer) 30 POC Glucose (mg/dL) 241 H 236 H Random Glucose 265 H Calcium 8.7 Phosphorus 4.4 Magnesium 2.3 H Total Bilirubin 1.1 AST 43 ALT 96 H Alkaline Phosphatase 81 Total Protein 7.2 Albumin 3.3 Globulin 3.9 Albumin/Globulin Ratio 0.9 L Procalcitonin Rheumatoid Factor IgG Rheumatoid Factor IgA Rheumatoid Factor IgM 07/15/18 07/15/18 07/16/18 18:59 22:31 01:25 WBC RBC Hgb Hct MCV MCH MCHC RDW Plt Count Gran % Lymph % (Auto) [place] % (Auto) Eos % (Auto) Baso % (Auto) Gran # Lymph # (Auto) [place] # (Auto) Eos # (Auto) Baso # (Auto) pCO2 pO2 HCO3 ABG pH ABG Total CO2 ABG O2 Saturation ABG O2 Content ABG Base Excess ABG Hemoglobin ABG Carboxyhemoglobin POC ABG HHb (Measured) ABG Methemoglobin ABG O2 Capacity Hgb O2 Saturation FiO2 Sodium Potassium Chloride Carbon Dioxide Anion Gap BUN Creatinine Est GFR ( Amer) Est GFR (Non-Af Amer) POC Glucose (mg/dL) 346 H 322 H 293 H Random Glucose Calcium Phosphorus Magnesium Total Bilirubin AST ALT Alkaline Phosphatase Total Protein Albumin Globulin Albumin/Globulin Ratio Procalcitonin Rheumatoid Factor IgG Rheumatoid Factor IgA Rheumatoid Factor IgM 07/16/18 07/16/18 05:30 05:40 WBC RBC Hgb Hct MCV MCH MCHC RDW Plt Count Gran % Lymph % (Auto) [place] % (Auto) Eos % (Auto) Baso % (Auto) Gran # Lymph # (Auto) [place] # (Auto) Eos # (Auto) Baso # (Auto) pCO2 34 L pO2 126.0 H HCO3 23.6 ABG pH 7.45 ABG Total CO2 24.6 ABG O2 Saturation 99.1 H ABG O2 Content 12.4 L ABG Base Excess -0.1 ABG Hemoglobin 9.0 L ABG Carboxyhemoglobin 2.1 H POC ABG HHb (Measured) 0.9 ABG Methemoglobin 0.9 ABG O2 Capacity 12.5 L Hgb O2 Saturation 96.2 FiO2 32.0 Sodium Potassium Chloride Carbon Dioxide Anion Gap BUN Creatinine Est GFR ( Amer) Est GFR (Non-Af Amer) POC Glucose (mg/dL) 245 H Random Glucose Calcium Phosphorus Magnesium Total Bilirubin AST ALT Alkaline Phosphatase Total Protein Albumin Globulin Albumin/Globulin Ratio Procalcitonin Rheumatoid Factor IgG Rheumatoid Factor IgA Rheumatoid Factor IgM Radiology Impressions: Radiology Impressions Chest X-Ray 07/15/18 06:00 IMPRESSION: No significant interval change compared to the prior examination(s). Fingerstick Blood Sugar Results: 245 Review of Systems - Review of Systems Systems not reviewed;Unavailable: Uncooperative Review of Systems: 12 point ROS unable to be attained secondary to clinical condition. Critical Care Progress Note - Nutrition Nutrition: Nutrition Category Date Time Status NPO Diet [DIET] Diets 07/06/18 Breakfast Ordered Assessment/Plan - Assessment and Plan (Free Text) Assessment: 62 y/o male with PMHx of COPD, active smoker 1pk per day, HTN, DM, PVD, presents with ER with 2 day history of fever, chills, associated with cough that is non- productive. Yesterday, patient also developed SOB. Pt was found to have increased work of breathing, RR 35-40, subsequently intubated. Placed on low tidal vol. ventilation. Patient was initially started on heparin drip given elevated troponin, and markedly diminished EF. Hep drip currently held secondary to thrombocytopenia. Initially paralyzed on Nimbex after overbreathing ventilator. Currently in MODS. Fevers overnight Tmax 100.4. Cardizem drip at 5. Successful extubation performed yesterday. Neuro: - 07/13/18 MRI brain without contrast negative for acute abnormalities - Results of EEG 07/10/[address] Roland: moderate nonspecific diffuse disturbance of cortical activity, nonspecific diffuse fernandez matter dysfunction, no seizures, not in status epilepticus - Neuro consult - Dr. Harvinder Mcdaniels - recs appreciated. Poor motor function likely 2/2 severe toxic metabolic encephalopathy - Critical Illness Polyneuropathy - appreciate further PT and Neuro recs - 07/10/18 CT head without contrast negative - AAOx0, continue on sedation. - Pt. responds to painful stimuli - Continuous and frequent PT daily- recs appreciated - Continue to monitor Pulm CAP and Flu A + 07/13/18 CXR shows Vascular congestion with mild perihilar edema. 07/14/18 CXR shows persistent severe cardiomegaly, moderate pulm venous congestion 07/15/18 CXR shows worsening bilateral infltrats, angles clear, perihilar infiltrates - Duonebs seema q6 and PRN q2 - Solumedrol Discontinued - Abx: Continue Merrem 500 BID and Doxycycline per ID - Urine Lg and Strep negative - Procal 4.85, repeat 5.96, 1.37 - ID eval: Dr. Fernandes - recs appreciated - Pulm consulted - Dr. Burr, recs appreciated - Resp therapy Cardio HFrEF - BNP [id number] - 07/03/18 echo report shows EF 14.2%, mildly dilated LV, systolic function severely impaired, akinetic septum, moderate TR and pulm HTN NSTEMI - Trop 0.48, 0.67, 0.67 - Cardiology consulted - Dr. Saxena. Cardiac cath on hold due to persistent thrombocytopenia. Hold Lasix per cardio. Further recs appreciated. - Continue Cardizem and Dig for new onset A fib. Recs appreciated to convert to PO. - Dig level 07/13/18 0.8 - Hold IVF d/t poor EF. - Hold Heparin drip - 07/07/18 EKG showed sinus tach - 07/08/18 EKG shows NSR, no ST or T wave changes, LVH - 07/09/18 EKG shows NSR @ 82 bpm, LVH - 07/10/18 EKG shows NSR @ 82 bpm, LVH, no peaked T waves Chronic Thrombocytopenia, ITP - Has received frequent intermittent transfusions as outpatient per medical record - PLT 49, manual count pending - HIT Antibody negative - Hem consult placed- Dr. Estevez. 4 unit PLT transfused. IV gammaglobulin 5 day course completed. Plan to run 1000 units of Heparin with HD. Further recs appreciated per Dr. Estevez. - Negative IVONE and ANCA studies - 07/08/18 Peripheral smear shows no atypical cells or immature forms. Mild anisopoikilocytosis. No schistocytes. No PL clumping although markedly reduced. - ESR 45 - Split products >10 but <40 Stable Normocytic Anemia - Hgb 9.2 this AM, no obvious sign of bleed GI - NGT in place Uncontrolled DM - Hgb a1c 8.2, accuchecks ACHS - Continue Levemir 20 units HS, recent RBGs 236 lkely elevated 2/2 steroids - Diabetic education Lipid panel - TG elevated at 172 Shock liver Transaminitis AST /ALT 307/224 > 543/409> 592/570> 717/746> 558/687> 270/476> 45/106, normal Alk Phos. Hold hepatotoxic drugs Hep panel negative - 07/03/18 RUQ U/S shows hepatosplenomegaly PTX for Ppx Nephro OG on HD - Tolerated first HD 07/07/18 s/p triple lumen catheter in L femoral vein. Rep laced in R femoral vein after clot - Currently holding IVF and Diuretics per cardio. Nephro input appreciated - Improved BUN/Cr 111/2.3 - Strict Is and Os. Output has increased. 2200 yesterday. - Ash in place. - Not candidate for kidney biopsy at this time due to inability to tolerate procedure - Nephro consult - recs appreciated No HD planned for today- Dr. Sullivan - recs appreciated. Patient in prerenal hypercatabolic state 2/2 sepsis. NGT for free water recommended Worsening Hypernatremia, Hyperchloremia - 160, 130 likely 2/2 intubation stress and poor intake - continue water flushes at 400 q4. F/u swallow eval recs - Begin D5H20 @ 100 cc/hr MSK - Wound care consulted - Podiatry consulted- Dr. Richardson- recs appreciated- no acute intervention at this time. Has signed off. - OT/PT eval ID - Low grade fever overnight, likely drug fever 2/2 Merrem. Leukocytosis 16.7 - Tylenol 650 q6 PRN for fever >101 - Ammonia level <9 - Rapid influenza A positive > Tamiflu course completed - ID eval: Dr. Fernandes - Abhijeet Ramirez to continue at this time. - 1 dose Vanc given 07/05/18 and 07/06/18. Dose given 07/13/18. - Sputum cx shows yeast species, blood cx neg after 5 days, repeat UA negative, repeat sputum cx growing moderate amount of yeast. - GI ppx: PTX - DVT ppx: Hep drip held in light of thrombocytopenia, Heparin with HD Dispo: Frequent PT for deconditioning, CIP Patient seen, case reviewed and plan approved by Dr. Ab Mitchell. Ismael Turner, PGY-1 <Junior Mitchell - Last Filed: 07/16/18 17:23> CCU Objective - Vital Signs / Intake & Output Intake and Output (Last 8hrs): Intake & Output 07/16/18 07/16/18 07/16/18 06:59 14:59 22:59 Intake Total 260 Output Total 1300 Balance -1040 Intake: IV 260 abx 200 cardizem 60 Output: Urine 1300 Urethral (Ash) 1300 - Medications Active Medications: Active Medications Generic Name Dose Route Start Last Admin Trade Name Freq PRN Reason Stop Dose Admin Acetaminophen 650 mg 07/08/18 18:18 07/14/18 12:29 Tylenol 650mg/20.3ml Solution Ud PO 650 mg Q6H PRN Administration Fever 101F Albuterol/Ipratropium 3 ml 07/03/18 14:00 07/16/18 13:07 Duoneb 3 Mg/0.5 Mg (3 Ml) Ud IH 3 ml [id number] SEEMA Administration Albuterol/Ipratropium 3 ml 07/03/18 11:04 07/11/18 23:55 Duoneb 3 Mg/0.5 Mg (3 Ml) Ud IH 3 ml Q2H PRN Administration Shortness of Breath Digoxin 0.125 mg 07/13/18 14:00 07/16/18 13:56 Lanoxin IVP 0.125 mg 1400 SEEMA Administration Heparin Sodium (Porcine) 3,000 units 07/11/18 10:09 07/14/18 15:43 Heparin IVP 3,000 units ONCE PRN Administration Other diltiaZEM IVPB 100mg in NS 100 mls @ 5 mls/hr 07/11/18 17:41 07/15/18 10:00 Cardizem 100mg In Ns IV 5 mg/hr .Q20H PRN 5 mls/hr TITRATE PER MD ORDER Administration Protocol 5 MG/HR Dextrose 1,000 mls @ 100 mls/hr 07/16/18 07:15 07/16/18 07:46 Dextrose 5% In Water IV 100 mls/hr .Q10H SEEMA Administration Insulin Detemir 20 unit 07/13/18 10:18 07/15/18 22:41 Levemir SC 20 unit HS SEEMA Administration Insulin Human Regular 0 units 07/12/18 11:15 07/16/18 13:52 Humulin R High SC 4 units Q6H SEEMA Administration Protocol Pantoprazole Sodium 40 mg 07/03/18 14:15 07/16/18 09:31 Protonix Inj IVP 40 mg DAILY SEEMA Administration Vitamin A 1 applic 07/13/18 16:53 Vitamin A&D TP Q8 PRN Dry mouth - Patient Studies Lab Studies: Microbiology Studies 07/13/18 10:20 Blood Culture - Preliminary Blood-Venous NO GROWTH AFTER 3 DAYS 07/13/18 10:00 Blood Culture - Preliminary Blood-Venous NO GROWTH AFTER 3 DAYS 07/13/18 12:10 Gram Stain - Final Trachasp Sputum Culture - Final Yeast Species Lab Studies 07/16/18 07/16/18 07/16/18 Range/Units 11:13 07:15 05:40 WBC (4.5-11.0) 10^3/uL RBC (3.5-6.1) 10^6/uL Hgb (14.0-18.0) g/dL Hct (42.0-52.0) % MCV (80.0-105.0) fl MCH (25.0-35.0) pg MCHC (31.0-37.0) g/dl RDW (11.5-14.5) % Plt Count (120.0-450.0) 10^3/uL Manual Plt Count 52 L (120-450) K/mm3 Gran % (50.0-68.0) % Lymph % (Auto) (22.0-35.0) % [place] % (Auto) (1.0-6.0) % Eos % (Auto) (1.5-5.0) % Baso % (Auto) (0.0-3.0) % Gran # (1.4-6.5) Lymph # (Auto) (1.2-3.4) [place] # (Auto) (0.1-0.6) Eos # (Auto) (0.0-0.7) Baso # (Auto) (0.0-2.0) K/mm3 pCO2 (35-45) mm/Hg pO2 (80-100) mm/Hg HCO3 (21-28) mmol/L ABG pH (7.35-7.45) ABG Total CO2 (22-28) mmol.L ABG O2 Saturation (95-98) % ABG O2 Content (15-23) ML/dl ABG Base Excess (-2.0-3.0) mmol/L ABG Hemoglobin (11.7-17.4) g/dL ABG Carboxyhemoglobin (0.5-1.5) % POC ABG HHb (Measured) (0-5) % ABG Methemoglobin (0.0-3.0) % ABG O2 Capacity (16-24) mL/dl Hgb O2 Saturation (95.0-98.0) % FiO2 % Sodium (132-148) mmol/L Potassium (3.6-5.0) mmol/L Chloride (98-107) mmol/L Carbon Dioxide (21-33) mmol/L Anion Gap (10-20) BUN (7-21) mg/dL Creatinine (0.8-1.5) mg/dl Est GFR ( Amer) Est GFR (Non-Af Amer) POC Glucose (mg/dL) 205 H 245 H (65-110) mg/dL Random Glucose (70-110) mg/dL Calcium (8.4-10.5) mg/dL Total Bilirubin (0.2-1.3) mg/dL AST (17-59) U/L ALT (7-56) U/L Alkaline Phosphatase (38-126) U/L Total Protein (5.8-8.3) g/dL Albumin (3.0-4.8) g/dL Globulin gm/dL Albumin/Globulin Ratio (1.1-1.8) 07/16/18 07/16/18 07/16/18 Range/Units 05:30 05:20 05:20 WBC 16.7 H (4.5-11.0) 10^3/uL RBC 3.53 (3.5-6.1) 10^6/uL Hgb 9.2 L (14.0-18.0) g/dL Hct 30.9 L (42.0-52.0) % MCV 87.5 (80.0-105.0) fl MCH 26.1 (25.0-35.0) pg MCHC 29.8 L (31.0-37.0) g/dl RDW 17.1 H (11.5-14.5) % Plt Count 49 L* (120.0-450.0) 10^3/uL Manual Plt Count (120-450) K/mm3 Gran % 93.3 H (50.0-68.0) % Lymph % (Auto) 5.6 L (22.0-35.0) % [place] % (Auto) 1.0 (1.0-6.0) % Eos % (Auto) 0.0 L (1.5-5.0) % Baso % (Auto) 0.1 (0.0-3.0) % Gran # 15.56 H (1.4-6.5) Lymph # (Auto) 0.9 L (1.2-3.4) [place] # (Auto) 0.2 (0.1-0.6) Eos # (Auto) 0.0 (0.0-0.7) Baso # (Auto) 0.01 (0.0-2.0) K/mm3 pCO2 34 L (35-45) mm/Hg pO2 126.0 H (80-100) mm/Hg HCO3 23.6 (21-28) mmol/L ABG pH 7.45 (7.35-7.45) ABG Total CO2 24.6 (22-28) mmol.L ABG O2 Saturation 99.1 H (95-98) % ABG O2 Content 12.4 L (15-23) ML/dl ABG Base Excess -0.1 (-2.0-3.0) mmol/L ABG Hemoglobin 9.0 L (11.7-17.4) g/dL ABG Carboxyhemoglobin 2.1 H (0.5-1.5) % POC ABG HHb (Measured) 0.9 (0-5) % ABG Methemoglobin 0.9 (0.0-3.0) % ABG O2 Capacity 12.5 L (16-24) mL/dl Hgb O2 Saturation 96.2 (95.0-98.0) % FiO2 32.0 % Sodium 160 H* (132-148) mmol/L Potassium 4.8 (3.6-5.0) mmol/L Chloride 130 H (98-107) mmol/L Carbon Dioxide 26 (21-33) mmol/L Anion Gap 8 L (10-20) BUN 111 H (7-21) mg/dL Creatinine 2.3 H (0.8-1.5) mg/dl Est GFR ( Amer) 35 Est GFR (Non-Af Amer) 29 POC Glucose (mg/dL) (65-110) mg/dL Random Glucose 236 H (70-110) mg/dL Calcium 9.0 (8.4-10.5) mg/dL Total Bilirubin 1.1 (0.2-1.3) mg/dL AST 32 (17-59) U/L ALT 73 H (7-56) U/L Alkaline Phosphatase 82 (38-126) U/L Total Protein 6.8 (5.8-8.3) g/dL Albumin 3.1 (3.0-4.8) g/dL Globulin 3.7 gm/dL Albumin/Globulin Ratio 0.8 L (1.1-1.8) 07/16/18 07/15/18 07/15/18 Range/Units 01:25 22:31 18:59 WBC (4.5-11.0) 10^3/uL RBC (3.5-6.1) 10^6/uL Hgb (14.0-18.0) g/dL Hct (42.0-52.0) % MCV (80.0-105.0) fl MCH (25.0-35.0) pg MCHC (31.0-37.0) g/dl RDW (11.5-14.5) % Plt Count (120.0-450.0) 10^3/uL Manual Plt Count (120-450) K/mm3 Gran % (50.0-68.0) % Lymph % (Auto) (22.0-35.0) % [place] % (Auto) (1.0-6.0) % Eos % (Auto) (1.5-5.0) % Baso % (Auto) (0.0-3.0) % Gran # (1.4-6.5) Lymph # (Auto) (1.2-3.4) [place] # (Auto) (0.1-0.6) Eos # (Auto) (0.0-0.7) Baso # (Auto) (0.0-2.0) K/mm3 pCO2 (35-45) mm/Hg pO2 (80-100) mm/Hg HCO3 (21-28) mmol/L ABG pH (7.35-7.45) ABG Total CO2 (22-28) mmol.L ABG O2 Saturation (95-98) % ABG O2 Content (15-23) ML/dl ABG Base Excess (-2.0-3.0) mmol/L ABG Hemoglobin (11.7-17.4) g/dL ABG Carboxyhemoglobin (0.5-1.5) % POC ABG HHb (Measured) (0-5) % ABG Methemoglobin (0.0-3.0) % ABG O2 Capacity (16-24) mL/dl Hgb O2 Saturation (95.0-98.0) % FiO2 % Sodium (132-148) mmol/L Potassium (3.6-5.0) mmol/L Chloride (98-107) mmol/L Carbon Dioxide (21-33) mmol/L Anion Gap (10-20) BUN (7-21) mg/dL Creatinine (0.8-1.5) mg/dl Est GFR ( Amer) Est GFR (Non-Af Amer) POC Glucose (mg/dL) 293 H 322 H 346 H (65-110) mg/dL Random Glucose (70-110) mg/dL Calcium (8.4-10.5) mg/dL Total Bilirubin (0.2-1.3) mg/dL AST (17-59) U/L ALT (7-56) U/L Alkaline Phosphatase (38-126) U/L Total Protein (5.8-8.3) g/dL Albumin (3.0-4.8) g/dL Globulin gm/dL Albumin/Globulin Ratio (1.1-1.8) Laboratory Results - last 24 hr 07/15/18 07/15/18 07/16/18 18:59 22:31 01:25 WBC RBC Hgb Hct MCV MCH MCHC RDW Plt Count Manual Plt Count Gran % Lymph % (Auto) [place] % (Auto) Eos % (Auto) Baso % (Auto) Gran # Lymph # (Auto) [place] # (Auto) Eos # (Auto) Baso # (Auto) pCO2 pO2 HCO3 ABG pH ABG Total CO2 ABG O2 Saturation ABG O2 Content ABG Base Excess ABG Hemoglobin ABG Carboxyhemoglobin POC ABG HHb (Measured) ABG Methemoglobin ABG O2 Capacity Hgb O2 Saturation FiO2 Sodium Potassium Chloride Carbon Dioxide Anion Gap BUN Creatinine Est GFR ( Amer) Est GFR (Non-Af Amer) POC Glucose (mg/dL) 346 H 322 H 293 H Random Glucose Calcium Total Bilirubin AST ALT Alkaline Phosphatase Total Protein Albumin Globulin Albumin/Globulin Ratio 07/16/18 07/16/18 07/16/18 05:20 05:20 05:30 WBC 16.7 H RBC 3.53 Hgb 9.2 L Hct 30.9 L MCV 87.5 MCH 26.1 MCHC 29.8 L RDW 17.1 H Plt Count 49 L* Manual Plt Count Gran % 93.3 H Lymph % (Auto) 5.6 L [place] % (Auto) 1.0 Eos % (Auto) 0.0 L Baso % (Auto) 0.1 Gran # 15.56 H Lymph # (Auto) 0.9 L [place] # (Auto) 0.2 Eos # (Auto) 0.0 Baso # (Auto) 0.01 pCO2 34 L pO2 126.0 H HCO3 23.6 ABG pH 7.45 ABG Total CO2 24.6 ABG O2 Saturation 99.1 H ABG O2 Content 12.4 L ABG Base Excess -0.1 ABG Hemoglobin 9.0 L ABG Carboxyhemoglobin 2.1 H POC ABG HHb (Measured) 0.9 ABG Methemoglobin 0.9 ABG O2 Capacity 12.5 L Hgb O2 Saturation 96.2 FiO2 32.0 Sodium 160 H* Potassium 4.8 Chloride 130 H Carbon Dioxide 26 Anion Gap 8 L BUN 111 H Creatinine 2.3 H Est GFR ( Amer) 35 Est GFR (Non-Af Amer) 29 POC Glucose (mg/dL) Random Glucose 236 H Calcium 9.0 Total Bilirubin 1.1 AST 32 ALT 73 H Alkaline Phosphatase 82 Total Protein 6.8 Albumin 3.1 Globulin 3.7 Albumin/Globulin Ratio 0.8 L 07/16/18 07/16/18 07/16/18 05:40 07:15 11:13 WBC RBC Hgb Hct MCV MCH MCHC RDW Plt Count Manual Plt Count 52 L Gran % Lymph % (Auto) [place] % (Auto) Eos % (Auto) Baso % (Auto) Gran # Lymph # (Auto) [place] # (Auto) Eos # (Auto) Baso # (Auto) pCO2 pO2 HCO3 ABG pH ABG Total CO2 ABG O2 Saturation ABG O2 Content ABG Base Excess ABG Hemoglobin ABG Carboxyhemoglobin POC ABG HHb (Measured) ABG Methemoglobin ABG O2 Capacity Hgb O2 Saturation FiO2 Sodium Potassium Chloride Carbon Dioxide Anion Gap BUN Creatinine Est GFR ( Amer) Est GFR (Non-Af Amer) POC Glucose (mg/dL) 245 H 205 H Random Glucose Calcium Total Bilirubin AST ALT Alkaline Phosphatase Total Protein Albumin Globulin Albumin/Globulin Ratio Radiology Impressions: Radiology Impressions Chest X-Ray 07/16/18 06:00 IMPRESSION: Prominent cardiac silhouette remains. No pulmonary vascular congestion or pleural effusion bilaterally. Limited patchy infiltrate right base. Nasogastric tube and endotracheal tube have been removed. Chest X-Ray 07/16/18 08:26 IMPRESSION: As above Critical Care Progress Note - Nutrition Nutrition: Nutrition Category Date Time Status NPO Diet [DIET] Diets 07/06/18 Breakfast Ordered Addendum Addendum: 07/16/18 17:19 ICU Attending Addendum Patient seen and examined. Case reviewed on round with housestaff. Agree with resident note above with the following additions/exceptions 62M smoker with COPD, HTN, DM, PVD admitted with septic shock from influ A resulting in multi organ failure. ARDS now resolved - Intubated for resp support and hypoxia. extubated yesterday 07/15/2018 still having low grade temps possibly from drug fever abx as per ID would d/c all abx Elevated TNI likely demand from shock vs [place] off pressors hep drip held for low plat cardio managing thrombocytopenia mmt as per hem onc hx of ITP, plat improved today OG ATN on HD HD rec'd 07/15/18 hyperNa likely from keeping him fluid neg free water deficit is 3L will hydrate with d5W today at least 1.5 L he is very weak likely from prolonged immobilization and having rec'd steroids/paralytics for ARDS tx dx likely critical illness polyneuropathy will need significant PT SCD for DVT ppx PPI for GI ppx Rest of care above Junior Mitchell MD Pulmonary Critical Care Attending
[2018-07-16 06:49] LABS: BASO # 0.01 K/mm3 (0.0-2.0); BASO % 0.1 % (0.0-3.0); GRAN # 15.56 (1.4-6.5); GRAN % 93.3 % (50.0-68.0); HEMOGLOBIN 9.2 g/dL (14.0-18.0); LYMPH # 0.9 (1.2-3.4); LYMPH % 5.6 % (22.0-35.0); MEAN CELL VOLUME 87.5 fl (80.0-105.0); MEAN CORPUSCULAR HEMOGLOBIN 26.1 pg (25.0-35.0); MEAN CORPUSCULAR HGB CONC 29.8 g/dl (31.0-37.0); MONO # 0.2 (0.1-0.6); RBC 3.53 10^6/uL (3.5-6.1); RED CELL DISTRIBUTION WIDTH 17.1 % (11.5-14.5); WHITE BLOOD COUNT 16.7 10^3/uL (4.5-11.0)
[2018-07-16 06:52] LABS: PLATELET COUNT 49 10^3/uL (120.0-450.0)
[2018-07-16 07:03] LABS: ALB/GLOB RATIO 0.8 (1.1-1.8); ALBUMIN 3.1 g/dL (3.0-4.8)
--- NOTE | 2018-07-16 07:53 | RAD ---
Date of service: 07/16/2018 HISTORY: f/u COMPARISON: Portable chest 07/15/2018. FINDINGS: LUNGS: Patient is apparently been extubated with nasogastric tube not identified either. Limited patchy density seen at the medial right best at base and is improved at the medial left base. Remaining lung miguel appear clear. No pulmonary vascular congestion identified. PLEURA: No significant pleural effusion identified, no pneumothorax apparent. CARDIOVASCULAR: Calcific atherosclerotic changes are seen related to the thoracic aorta. Prominent cardiac silhouette remains. OSSEOUS STRUCTURES: No significant abnormalities. VISUALIZED UPPER ABDOMEN: Normal. OTHER FINDINGS: None. IMPRESSION: Prominent cardiac silhouette remains. No pulmonary vascular congestion or pleural effusion bilaterally. Limited patchy infiltrate right base. Nasogastric tube and endotracheal tube have been removed.
--- NOTE | 2018-07-16 08:37 | PN ---
DATE: 07/16/2018([id number]) SUBJECTIVE: The patient is now extubated and off of the ventilator. He is moderately short of breath, but in no acute distress. His eyes are opened, and he appears awake and alert. He does not follow commands. PHYSICAL EXAMINATION: VITAL SIGNS: Temperature is 100.2, pulse 103, respiratory rate 24/26, blood pressure 159/85. Oxygen saturation on nasal cannula is 96%. HEENT: Normocephalic, atraumatic. No JVD. CARDIOVASCULAR: Systolic ejection murmur at the lower left sternal border. No S3 gallop. LUNGS: Decreased breath sounds at the bases. Minimal rhonchi. No wheezing. EXTREMITIES: Mild edema. No cyanosis, no clubbing. Calves are nontender to palpation. GASTROINTESTINAL: Abdomen is soft, nontender and nondistended. Bowel sounds are positive. SKIN: No acute rash. NEUROLOGIC: Exam limited at the present time. 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 There are minimal bilateral infiltrates noted - much improved overall. Arterial blood gas was also done on nasal cannula. Results are: PH 7.45, pCO2 of 34, pO2 of 126. IMPRESSION: 1. Respiratory failure. 2. Bilateral pneumonia. 3. Rule out myocardial infarction. 4. Ischemic dilated cardiomyopathy. 5. Renal failure. 6. Anemia, thrombocytopenia. 7. Chronic obstructive pulmonary disease. PLAN: The patient is now extubated and off of the ventilator. He is moderately short of breath, but in no acute distress. He does appear awake, but does not answer questions. I did discuss the case with the night nurse at length. The night nurse stated that the patient had an uneventful night, but remains extremely weak. I did review the chest x-ray as above. The chest x-ray continues to improve. I have also reviewed the arterial blood gas. The arterial blood gas is very acceptable this morning. On physical exam, there is no significant bronchospasm noted. The patient remains on nebulizer treatments. The steroids are being weaned by the ICU team. Inputs by Renal, Hematology, and Cardiology are also noted. As above, the patient appears extremely weak. I do question whether the patient might have a polyneuropathy. I have instructed the ICU team and nurse to make sure that the patient is seen by Neurology this morning. Clinical status of the patient is significantly improved - compared to last week. However, the patient remains critically ill with very guarded prognosis. Again, I will discuss the above with the entire ICU team in the next few moments. I will also discuss the above with the attending physician later this morning. Balta Burr MD MTDЮлия
--- NOTE | 2018-07-16 09:08 | RAD ---
Date of service: 07/16/2018 HISTORY: Post NGT placement COMPARISON: Earlier same day FINDINGS: LUNGS: No active pulmonary disease. PLEURA: No significant pleural effusion identified, no pneumothorax apparent. CARDIOVASCULAR: No aortic atherosclerotic calcification present. Mild cardiomegaly mild vascular congestion OSSEOUS STRUCTURES: No significant abnormalities. VISUALIZED UPPER ABDOMEN: Normal. OTHER FINDINGS: The nasogastric tube is difficult to visualize due to overlying monitor wires. The tube appears to terminate just below the level of the diaphragm. This could be advanced further for more optimal positioning. IMPRESSION: As above
[2018-07-16] MEDS: MEROPENEM 500 MG in NS 500 MG/50 ML BAG IVPB SCH (09:29)
--- NOTE | 2018-07-16 09:56 | PN ---
SUBJECTIVE: The patient was seen and examined at bedside in the ICU. No acute events overnight. The patient persists with low grade fevers. He has been extubated. This morning he appears awake and alert and continues to demonstrate slow gradual clinical improvement. OBJECTIVE: VITAL SIGNS: TM 100.4, TC 100.2, pulse 100, blood pressure 159/85, respiratory rate 20, oxygen saturation 96% on 4 liters nasal cannula. GENERAL: No apparent distress. HEENT: PERRL, EOMI. No scleral icterus. NECK: No JVD. LUNGS: Coarse anterior breath sounds with decreased breath sounds at the bases. CARDIOVASCULAR: Irregularly irregular. Normal S1, S2. ABDOMEN: Normoactive bowel sounds. Soft, nondistended. EXTREMITIES: 1+ edema in all extremities with multiple areas of ecchymoses. NEUROLOGIC: Awake and alert, able to blink eyes appropriately to yes/no questions, not moving extremities. LABORATORY DATA: WBC 16.7 with 93% neutrophils, hemoglobin 9.2, hematocrit 31, platelets 49. Sodium 160, potassium 4.8, chloride 130, bicarb 26, BUN 111, creatinine 2.3, glucose 236. Blood cultures with no growth to date. Urine culture with no growth to date. ASSESSMENT: The patient is a 62-year-old man with multiple medical comorbidities who was admitted to the ICU s/p intubation for acute hypoxic respiratory failure and severe sepsis secondary to community-acquired pneumonia and multiorgan system failure who is now s/p extubation. PLAN: 1. Acute hypoxic respiratory failure s/p extubation. Continue with care as per Dr. Burr and the ICU team. Continue with supplemental oxygen and bronchodilators as needed. 2. Severe sepsis secondary to community-acquired pneumonia with influenza. Input from Dr. Fernandes appreciated. Cultures remain negative. Continue with current antimicrobials as per Dr. Fernandes. 3. Acute kidney injury, secondary to ATN in the setting of severe sepsis, resolving. Input from Dr. Sullivan appreciated. Continue with care as per Dr. Sullivan. 4. NSTEMI. Input from Dr. Saxena appreciated. The patient will likely require cardiac catheterization when medically stabilized. 5. Atrial fibrillation, new onset, rate controlled. Continue Diltiazem and Digoxin. 6. Acute systolic heart failure. Input from Dr. Saxena appreciated. As above, the patient will require cardiac catheterization when medically stabilized. 7. Hypernatremia. Free water deficit calculated to be 6 liters. The patient has been started on D5W. 8. Transaminitis, likely secondary to shock liver in the setting of severe sepsis, resolved. 9. Thrombocytopenia secondary to ITP. Input from Dr. Estevez appreciated. The patient has completed a course of IVIG and received a total 4 units of platelets. CBC demonstrates stable platelet count. We will continue to monitor. 10. Normocytic anemia. Labs with stable H/H and no evidence of active bleed. 11. Type 2 diabetes mellitus, uncontrolled. Continue Levemir and high-dose insulin sliding scale. 12. Hypertension. 13. Pseudogout. 14. Anxiety disorder. 15. GERD. 16. Prophylaxis. Continue Protonix for GI prophylaxis and SCDs for DVT prophylaxis. CODE STATUS: Full code. Yassine Martinez MD MOE
--- NOTE | 2018-07-16 12:57 | PN ---
DATE: 07/16/2018 SUBJECTIVE: The patient remains off the ventilator, but with minimal reaction to verbal stimuli. OBJECTIVE: VITAL SIGNS: Blood pressure is 159/85, heart rate is 100. NECK: Negative JVD. LUNGS: Decreased breath sounds. HEART: Reveal S1, S2. EXTREMITIES: Without edema. LABORATORY DATA: Hemoglobin is 9.2, white count is 49,000, BUN and creatinine of 111 and 2.3 with a sodium of 160. IMPRESSION: 1. Status post respiratory failure. 2. Non-ST elevation myocardial infarction. 3. End-stage renal disease. 4. Thrombocytopenia. 5. Dilated cardiomyopathy. Given these findings, the patient hemodynamically is doing okay, we will continue the patient's antibiotics. Benjamin Saxena MD
[2018-07-16] MEDS: Digoxin 500 mcg/2ml (0.5 mg/2ml) Inj IVP SCH (13:56)
--- NOTE | 2018-07-16 15:07 | PN ---
DATE: 07/16/2018 SUBJECTIVE: The patient is extubated. He is in the unit and seen earlier today in 128, bed 5. He is in poorly responsive. He is not moving his extremities. PHYSICAL EXAMINATION: VITAL SIGNS: Temperature is 100.2, respiratory rate of 18, heart rate of 115 and blood pressure is 159/80. HEENT: Unremarkable. NECK: Supple. LUNGS: Have decreased breath sounds. HEART: Normal S1 and S2. ABDOMEN: Soft. LABORATORY EXAMINATION: Reveals a white count of 16,700 and hemoglobin of 9. Chemistries reveals a BUN of 111 and creatinine of 2.3 and urinalysis is noted and. The patient's last procalcitonin 0.60 and the microbiology is noted. The patient's blood cultures are negative. Urine cultures are negative. Nasal MRSA is negative. The patient does have an NG tube in or nasal tube in. MEDICATIONS: Review of orders reveals the patient to be on doxycycline and meropenem. ASSESSMENT AND PLAN: This is a 62-year-old male seen in ICU who is now extubated. He was admitted with severe sepsis, hypoxic respiratory failure and ventilator-dependent respiratory failure, [id number] renal failure, thrombocytopenia, right-sided community-acquired pneumonia, status post influenza. We will discontinue the meropenem and doxycycline. The patient is extubated now with low-grade fevers and today's chest x-ray reveals no active lung disease and Dr. Yassine Martinez's note from today is reviewed and the patient with influenza and community-acquired pneumonia, we will discontinue the antibiotic with acute systolic heart failure and we will follow with you. The patient is at high risk of developing nosocomial infections. Satya Fernandes MD
[2018-07-16 18:10] LABS: ALB/GLOB RATIO 0.8 (1.1-1.8); CALCIUM 8.7 mg/dL (8.4-10.5)
--- NOTE | 2018-07-16 19:14 | PN ---
DATE: 07/16/2018 SUBJECTIVE: The patient is seen lying in bed in the ICU. His eyes are open. He is awake, responds to stimuli by opening his eyes. Nods his head, but really not following any commands. He has flaccid paresis of all 4 limbs. Not moving any extremities. PHYSICAL EXAMINATION: GENERAL: Elderly male lying in bed in the ICU. VITAL SIGNS: Blood pressure 143/66, heart rate 106, respiratory rate 30-34, temperature 100.2, and T-max is 100.2. HEENT: Normocephalic and atraumatic. Pupils reactive to light. Positive pallor. NECK: Supple. No JVD. LUNGS: Bilateral equal air entry, bilateral rhonchi. No rales. CARDIAC: S1 and S2, irregularly irregular, no murmur, no rub. ABDOMEN: Obese, distended, soft, and nontender. Bowel sounds present. EXTREMITIES: 1+ pitting edema of the lower extremities. INTAKE AND OUTPUT: 670/2700. LABORATORY DATA: WBC 16.7, hemoglobin 9.2, hematocrit 30.9, and platelets 49. PH of 7.45, pCO2 of 34, and pO2 of 126. Sodium 160, potassium 4.8, chloride 130, CO2 of 23, BUN 236, and calcium 9. AST 32 and ALT 73. CURRENT MEDICATIONS: Cardizem at 5 mg per hour, D5W at 100 mL/hour, DuoNeb, heparin, digoxin 0.125 daily, IV piggyback, Levemir 20 units, Protonix 40, Tylenol, vitamin D, doxycycline 100 every 12 hours, meropenem 500 every 12 hours, and Solu-Medrol 20 IV push given yesterday. ASSESSMENT: 1. Acute kidney injury superimposed on chronic kidney disease stage III in the setting of severe sepsis, acute tubular necrosis secondary to hypotension, hypoperfusion. 2. Acute renal failure requiring dialysis now nonoliguric, increased urine output. 3. Severe sepsis, respiratory failure, community-acquired pneumonia, influenza. 4. History of idiopathic thrombocytopenic purpura. 5. [id number] diabetes mellitus. 6. Hypertension. 7. Severe cardiomyopathy, decreased ejection fraction. 8. Altered mental status, critical illness polyneuropathy? PLAN: 1. No dialysis today, the patient has made 2700 mL of urine in 24 hours. 2. Hypernatremia consistent with dehydration, agree with D5W at 100 mL per hour, agree with free water via NG tube. 3. Prerenal azotemia, BUN extremely high compared to creatinine, critical illness hypercatabolic state. 4. Continue antibiotics as per ID recommendations. 5. Avoid nephrotoxins. 6. Continue IV Cardizem for new onset AFib and rate control. 7. Agree with digoxin. 8. Monitor daily labs. 9. We will reassess for need for dialysis tomorrow. Case d/w Dialysis staff, ICU nurse, ICU attending >35 min spent in coordination of care Bobbi Sullivan MD MTDD
[2018-07-16] MEDS: Insulin Detemir 100 units/ml Vial (Levemir) SC SCH (22:30)
[2018-07-17] MEDS: Albuterol-Ipratrop 3 mg / 0.5 (3 ml) UD IH SCH ×4 (02:23→19:51)
[2018-07-17] MEDS: diltiaZEM IVPB 100mg in NS 100 ML IV PRN (03:00)
--- NOTE | 2018-07-17 03:19 | PN ---
DATE: 07/16/2018 ONCOLOGY PROGRESS NOTE LOCATION: The patient is in ICU, bed 5. SUBJECTIVE: The patient is seen and examined at bedside in the unit. No acute events overnight. The patient still has been having low-grade temperature. He has been extubated. He appears to be awake and alert, but continues to demonstrate very low clinical improvement. He does understand who I am, and he was able to nod his head. PHYSICAL EXAMINATION: VITAL SIGNS: Stable. T-max is 100.4, pulse is 100, blood pressure 159/85, respirations 20, and O2 sat is 96% on 4 L nasal cannula. HEENT: Head is normocephalic and atraumatic. Conjunctivae pale. Sclerae anicteric. Pupils are equally reactive to light and accommodation. NECK: Supple. There is no adenopathy. LUNGS: Reveals coarse anterior breath sounds with decreased breath sounds at the bases. CARDIOVASCULAR SYSTEM: Reveals S1 and S2 to be regular. No gallop is heard. ABDOMEN: Soft, nontender. Liver and spleen are not palpable. EXTREMITIES: Reveal 1+ edema of all extremities and multiple areas of ecchymosis. NEUROLOGIC: Reveals the patient is awake and alert, able to blink eyes. He still is slow to respond to questions. LABORATORY DATA: Reveals a white count of 16.7, hemoglobin of 9.2, hematocrit 31, platelet count of 49,000. Sodium is 160, potassium 4.8, chloride 130, bicarb is 26, BUN is 111 with creatinine of 2.3, glucose is 236. Blood cultures and wound cultures are negative for any infection. ASSESSMENT, NOTES AND PLAN: A 62-year-old male with a diagnosis of Promacta, hypertension and now is admitted to the hospital for pulmonary failure, multiorgan failure along with injury to the heart as well as the patient has poor cardiac function, non-ST elevation myocardial infarction, status post acute hypoxic injury with acute respiratory distress syndrome, requiring multiple antibiotics and gradually improving and now status post extubation. Plan, continue Gastroenterology, Renal, and Pulmonary followup as part of the intensive care unit team for this patient's recovery. In the meantime, they have been monitoring his blood counts on a daily basis post intravenous gammaglobulin. The patient's counts are stabilized at this time and will probably not need any new medicines in the near future. Choices are that we will give him Nplate and if he starts to improve more, we can try to put him back on his Promacta. sepsis appears to be evolving. The patient so far has completed a course of intravenous immunoglobulin and steroids and 4 units of platelets. Complete blood count shows stable platelet counts. Routine post exam instructions have been given to the patient. We will follow the patient with you and make appropriate recommendations. Discussed with the nursing staff regarding his management. I spoke to the resident as well. Sandra Estevez MD
[2018-07-17 05:21] LABS: ARTERIAL BLOOD GAS HCO3 22.6 mmol/L (21-28); ARTERIAL BLOOD GAS HEMOGLOBIN 9.3 g/dL (11.7-17.4); ARTERIAL BLOOD GAS O2 CAPACITY 12.8 mL/dl (16-24); ARTERIAL BLOOD GAS O2 CONTENT 12.7 ML/dl (15-23); ARTERIAL BLOOD GAS O2 SAT 98.9 % (95-98); ARTERIAL BLOOD GAS PCO2 34 mm/Hg (35-45); ARTERIAL BLOOD GAS PH 7.43 (7.35-7.45); ARTERIAL BLOOD GAS TCO2 23.6 mmol.L (22-28)
[2018-07-17] MEDS: Insulin Reg-HIGH-Coverage SC SCH ×4 (05:36→23:35)
[2018-07-17 06:43] LABS: GRAN # 15.23 (1.4-6.5); GRAN % 94.8 % (50.0-68.0); HEMOGLOBIN 9.1 g/dL (14.0-18.0); LYMPH # 0.6 (1.2-3.4); LYMPH % 3.8 % (22.0-35.0); MEAN CELL VOLUME 89.7 fl (80.0-105.0); MEAN CORPUSCULAR HEMOGLOBIN 26.1 pg (25.0-35.0); MEAN CORPUSCULAR HGB CONC 29.2 g/dl (31.0-37.0); MONO # 0.2 (0.1-0.6); MONO % 1.4 % (1.0-6.0); RBC 3.48 10^6/uL (3.5-6.1); RED CELL DISTRIBUTION WIDTH 17.2 % (11.5-14.5); WHITE BLOOD COUNT 16.1 10^3/uL (4.5-11.0)
[2018-07-17] MEDS ORDERED: methylPREDNISolone 500 MG in Sodium Chloride 0.9% 100 ML IVPB ONE (06:46)
[2018-07-17 07:27] LABS: PLATELET COUNT 30 10^3/uL (120.0-450.0)
[2018-07-17 08:09] LABS: ALB/GLOB RATIO 0.8 (1.1-1.8); ALBUMIN 2.9 g/dL (3.0-4.8); CALCIUM 8.5 mg/dL (8.4-10.5)
--- NOTE | 2018-07-17 08:31 | PN ---
DATE: 07/17/2018(650am-740am) SUBJECTIVE: The patient remains off of the ventilator. He is mildly short of breath, but in no acute distress. He remains extremely weak appearing. PHYSICAL EXAMINATION: VITAL SIGNS: Temperature is 99.9, pulse on the monitor is 88, respiratory rate 24, blood pressure 128/68. Oxygen saturation on nasal cannula is 99%. HEENT: Normocephalic, atraumatic. No JVD. CARDIOVASCULAR: Systolic ejection murmur at the lower left sternal border. No S3 gallop. LUNGS: Decreased breath sounds at the bases. Minimal/less rhonchi. No wheezing. EXTREMITIES: Mild edema. No cyanosis, no clubbing. Calves are nontender to palpation. GASTROINTESTINAL: Abdomen is soft, nontender and nondistended. Bowel sounds are positive. SKIN: No acute rash. NEUROLOGIC: Exam limited at the present time. 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 Mild bilateral pulmonary infiltrates remain - overall decreased. Arterial blood gas was done on nasal cannula. Results are: PH 7.43, pCO2 of 34, pO2 of 95. IMPRESSION: 1. Respiratory failure. 2. Bilateral pneumonia. 3. Rule out myocardial infarction. 4. Ischemic dilated cardiomyopathy. 5. Renal failure. 6. Anemia, thrombocytopenia. 7. Chronic obstructive pulmonary disease. PLAN: The patient appears comfortable this morning. He is mildly short of breath, but in no acute distress. He remains extremely weak appearing. I did discuss the case with the night nurse at length. The night nurse stated the patient had an uneventful night, but is only moving his extremities very minimally. I did review the chest x-ray as above. Mild pulmonary infiltrates remain - improved from last week's films. Official results are pending. I have also reviewed the arterial blood gas. The arterial blood gas now reveals normal acid base status, with only a mild increase in the alveolar-arterial gradient. I will continue the current nebulizer treatments for now. The patient is now off antibiotic therapy - as per Infectious Disease. Input by Dr. Fernandes is noted. Low-grade temperatures persist. Inputs by Cardiology, Renal, and Hematology are also noted. In addition, we are awaiting a repeat neurologic evaluation - hopefully today. Again, I do question whether this patient has critical illness polyneuropathy. Clinical status of the patient is significantly improved - compared to last week. However, the patient remains critically ill with very guarded prognosis. I will discuss the above with the entire ICU team in the next few moments. I will also discuss the above with the attending physician. Balta Burr MD [id number]
--- NOTE | 2018-07-17 08:43 | CP.CCUPN ---
<Ismael Turner - Last Filed: 07/17/18 11:14> CCU Subjective - Physician Review Subjective (Free Text): Ismael Turner, PGY-1 Progress Note for ICU Patient seen and evaluated at bedside. Afebrile overnight with Tmax 100.2. Responsive and following commands to blink but extremities remain flaccid at this time. Opens eyes spontaneously and is able to track. On Cardizem drip at 5 mcg currently, NS, and steroids bolus. Further ROS was unobtainable at this time due to clinical condition. CCU Objective - Vital Signs / Intake & Output Vital Signs (Last 4 hours): Vital Signs Temp Pulse Resp BP Pulse Ox 07/17/18 07:00 99.9 F H 85 26 H 129/77 100 07/17/18 06:56 99.9 F H 83 99 07/17/18 06:00 99.9 F H 86 26 H 128/68 98 07/17/18 05:00 99.7 F H 88 28 H 124/72 99 Intake and Output (Last 8hrs): Intake & Output 07/16/18 07/17/18 07/17/18 22:59 06:59 14:59 Intake Total 2560 1260 Output Total 1000 1300 Balance 1560 -40 Weight 84.822 kg Intake: IV 1360 1260 Left Wrist 1360 cardizem 60 d5w 1200 Other 1200 Output: Urine 1000 1300 Urethral (Ash) 1000 1300 Other: # Bowel Movements 0 - Physical Exam Head: Positive for: Atraumatic, Normocephalic Pupils: Positive for: PERRL Extroacular Muscles: Positive for: EOMI Conjunctiva: Positive for: Normal Mouth: Positive for: Dry, Drooling Nose (External): Positive for: Other (Dobhoff in place in R nares) Respiratory/Chest: Positive for: Clear to Auscultation, Decreased Breath Sounds. Negative for: Respiratory Distress, Wheezes, Tachypneic Cardiovascular: Positive for: Normal S1, S2, Irregular Rhythm. Negative for: Murmurs Abdomen: Negative for: Tenderness, Peritoneal Signs, Guarding Back: Positive for: Normal Inspection Upper Extremity: Positive for: Normal Inspection, Other (No spontaneous motor movement at this time in upper extremities, flaccid). Negative for: Cyanosis, Edema Lower Extremity: Positive for: Edema (1+ pitting edema noted to right lower extremity; chronic diabetic ulcer noted to anterior anderson of left lower extremity ), Other (flaccid lower extremities) Neurological: Negative for: GCS=15, CN II-XII Intact, Speech Normal Skin: Positive for: Warm, Dry, Normal Color, Other (Ecchymotic in R antecubital region, stable). Negative for: Rashes Psychiatric: Positive for: Alert (responds to verbal and painful stimuli). Negative for: Oriented x 3 (unable to verbally respond), Normal Insight, Normal Concentration - Medications Active Medications: Active Medications Generic Name Dose Route Start Last Admin Trade Name Freq PRN Reason Stop Dose Admin Acetaminophen 650 mg 07/08/18 18:18 07/14/18 12:29 Tylenol 650mg/20.3ml Solution Ud PO 650 mg Q6H PRN Administration Fever 101F Albuterol/Ipratropium 3 ml 07/03/18 14:00 07/17/18 07:00 Duoneb 3 Mg/0.5 Mg (3 Ml) Ud IH 3 ml [id number] SEEMA Administration Albuterol/Ipratropium 3 ml 07/03/18 11:04 07/11/18 23:55 Duoneb 3 Mg/0.5 Mg (3 Ml) Ud IH 3 ml Q2H PRN Administration Shortness of Breath Digoxin 0.125 mg 07/13/18 14:00 07/16/18 13:56 Lanoxin IVP 0.125 mg 1400 SEEMA Administration Heparin Sodium (Porcine) 3,000 units 07/11/18 10:09 07/14/18 15:43 Heparin IVP 3,000 units ONCE PRN Administration Other diltiaZEM IVPB 100mg in NS 100 mls @ 5 mls/hr 07/11/18 17:41 07/17/18 03:00 Cardizem 100mg In Ns IV 5 mg/hr .Q20H PRN 5 mls/hr TITRATE PER MD ORDER Administration Protocol 5 MG/HR Dextrose 1,000 mls @ 100 mls/hr 07/17/18 05:34 07/17/18 05:43 Dextrose 5% In Water 1000 Ml IV 100 mls/hr .Q10H SEEMA Administration Insulin Detemir 20 unit 07/13/18 10:18 07/16/18 22:30 Levemir SC 20 unit HS SEEMA Administration Insulin Human Regular 0 units 07/12/18 11:15 07/17/18 05:36 Humulin R High SC 2 units Q6H SEEMA Administration Protocol Pantoprazole Sodium 40 mg 07/03/18 14:15 07/16/18 09:31 Protonix Inj IVP 40 mg DAILY SEEMA Administration Vitamin A 1 applic 07/13/18 16:53 Vitamin A&D TP Q8 PRN Dry mouth - Patient Studies Lab Studies: Microbiology Studies 07/13/18 10:20 Blood Culture - Preliminary Blood-Venous NO GROWTH AFTER 3 DAYS 07/13/18 10:00 Blood Culture - Preliminary Blood-Venous NO GROWTH AFTER 3 DAYS Lab Studies 07/17/18 07/17/18 07/17/18 Range/Units 07:50 05:30 05:30 WBC 16.1 H (4.5-11.0) 10^3/uL RBC 3.48 L (3.5-6.1) 10^6/uL Hgb 9.1 L (14.0-18.0) g/dL Hct 31.2 L (42.0-52.0) % MCV 89.7 (80.0-105.0) fl MCH 26.1 (25.0-35.0) pg MCHC 29.2 L (31.0-37.0) g/dl RDW 17.2 H (11.5-14.5) % Plt Count 30 L* (120.0-450.0) 10^3/uL Manual Plt Count (120-450) K/mm3 Gran % 94.8 H (50.0-68.0) % Lymph % (Auto) 3.8 L (22.0-35.0) % [place] % (Auto) 1.4 (1.0-6.0) % Eos % (Auto) 0.0 L (1.5-5.0) % Baso % (Auto) 0.0 (0.0-3.0) % Gran # 15.23 H (1.4-6.5) Lymph # (Auto) 0.6 L (1.2-3.4) [place] # (Auto) 0.2 (0.1-0.6) Eos # (Auto) 0.0 (0.0-0.7) Baso # (Auto) 0.00 (0.0-2.0) K/mm3 pCO2 (35-45) mm/Hg pO2 (80-100) mm/Hg HCO3 (21-28) mmol/L ABG pH (7.35-7.45) ABG Total CO2 (22-28) mmol.L ABG O2 Saturation (95-98) % ABG O2 Content (15-23) ML/dl ABG Base Excess (-2.0-3.0) mmol/L ABG Hemoglobin (11.7-17.4) g/dL ABG Carboxyhemoglobin (0.5-1.5) % POC ABG HHb (Measured) (0-5) % ABG Methemoglobin (0.0-3.0) % ABG O2 Capacity (16-24) mL/dl Hgb O2 Saturation (95.0-98.0) % FiO2 % Sodium 155 H (132-148) mmol/L Potassium 4.2 (3.6-5.0) mmol/L Chloride 126 H (98-107) mmol/L Carbon Dioxide 25 (21-33) mmol/L Anion Gap 7 L (10-20) BUN 100 H (7-21) mg/dL Creatinine 2.1 H (0.8-1.5) mg/dl Est GFR ( Amer) 39 Est GFR (Non-Af Amer) 32 POC Glucose (mg/dL) 312 H (65-110) mg/dL Random Glucose 299 H (70-110) mg/dL Calcium 8.5 (8.4-10.5) mg/dL Total Bilirubin 1.1 (0.2-1.3) mg/dL AST 36 (17-59) U/L ALT 63 H (7-56) U/L Alkaline Phosphatase 84 (38-126) U/L Total Protein 6.5 (5.8-8.3) g/dL Albumin 2.9 L (3.0-4.8) g/dL Globulin 3.5 gm/dL Albumin/Globulin Ratio 0.8 L (1.1-1.8) 07/17/18 07/17/18 07/16/18 Range/Units 05:27 05:10 22:13 WBC (4.5-11.0) 10^3/uL RBC (3.5-6.1) 10^6/uL Hgb (14.0-18.0) g/dL Hct (42.0-52.0) % MCV (80.0-105.0) fl MCH (25.0-35.0) pg MCHC (31.0-37.0) g/dl RDW (11.5-14.5) % Plt Count (120.0-450.0) 10^3/uL Manual Plt Count (120-450) K/mm3 Gran % (50.0-68.0) % Lymph % (Auto) (22.0-35.0) % [place] % (Auto) (1.0-6.0) % Eos % (Auto) (1.5-5.0) % Baso % (Auto) (0.0-3.0) % Gran # (1.4-6.5) Lymph # (Auto) (1.2-3.4) [place] # (Auto) (0.1-0.6) Eos # (Auto) (0.0-0.7) Baso # (Auto) (0.0-2.0) K/mm3 pCO2 34 L (35-45) mm/Hg pO2 95.0 (80-100) mm/Hg HCO3 22.6 (21-28) mmol/L ABG pH 7.43 (7.35-7.45) ABG Total CO2 23.6 (22-28) mmol.L ABG O2 Saturation 98.9 H (95-98) % ABG O2 Content 12.7 L (15-23) ML/dl ABG Base Excess -1.4 (-2.0-3.0) mmol/L ABG Hemoglobin 9.3 L (11.7-17.4) g/dL ABG Carboxyhemoglobin 2.4 H (0.5-1.5) % POC ABG HHb (Measured) 1.1 (0-5) % ABG Methemoglobin 0.8 (0.0-3.0) % ABG O2 Capacity 12.8 L (16-24) mL/dl Hgb O2 Saturation 95.7 (95.0-98.0) % FiO2 32.0 % Sodium (132-148) mmol/L Potassium (3.6-5.0) mmol/L Chloride (98-107) mmol/L Carbon Dioxide (21-33) mmol/L Anion Gap (10-20) BUN (7-21) mg/dL Creatinine (0.8-1.5) mg/dl Est GFR ( Amer) Est GFR (Non-Af Amer) POC Glucose (mg/dL) 307 H 283 H (65-110) mg/dL Random Glucose (70-110) mg/dL Calcium (8.4-10.5) mg/dL Total Bilirubin (0.2-1.3) mg/dL AST (17-59) U/L ALT (7-56) U/L Alkaline Phosphatase (38-126) U/L Total Protein (5.8-8.3) g/dL Albumin (3.0-4.8) g/dL Globulin gm/dL Albumin/Globulin Ratio (1.1-1.8) 07/16/18 07/16/18 07/16/18 Range/Units 17:31 17:02 11:13 WBC (4.5-11.0) 10^3/uL RBC (3.5-6.1) 10^6/uL Hgb (14.0-18.0) g/dL Hct (42.0-52.0) % MCV (80.0-105.0) fl MCH (25.0-35.0) pg MCHC (31.0-37.0) g/dl RDW (11.5-14.5) % Plt Count (120.0-450.0) 10^3/uL Manual Plt Count (120-450) K/mm3 Gran % (50.0-68.0) % Lymph % (Auto) (22.0-35.0) % [place] % (Auto) (1.0-6.0) % Eos % (Auto) (1.5-5.0) % Baso % (Auto) (0.0-3.0) % Gran # (1.4-6.5) Lymph # (Auto) (1.2-3.4) [place] # (Auto) (0.1-0.6) Eos # (Auto) (0.0-0.7) Baso # (Auto) (0.0-2.0) K/mm3 pCO2 (35-45) mm/Hg pO2 (80-100) mm/Hg HCO3 (21-28) mmol/L ABG pH (7.35-7.45) ABG Total CO2 (22-28) mmol.L ABG O2 Saturation (95-98) % ABG O2 Content (15-23) ML/dl ABG Base Excess (-2.0-3.0) mmol/L ABG Hemoglobin (11.7-17.4) g/dL ABG Carboxyhemoglobin (0.5-1.5) % POC ABG HHb (Measured) (0-5) % ABG Methemoglobin (0.0-3.0) % ABG O2 Capacity (16-24) mL/dl Hgb O2 Saturation (95.0-98.0) % FiO2 % Sodium 157 H* (132-148) mmol/L Potassium 4.5 (3.6-5.0) mmol/L Chloride 129 H (98-107) mmol/L Carbon Dioxide 25 (21-33) mmol/L Anion Gap 8 L (10-20) BUN 106 H (7-21) mg/dL Creatinine 2.3 H (0.8-1.5) mg/dl Est GFR ( Amer) 35 Est GFR (Non-Af Amer) 29 POC Glucose (mg/dL) 253 H 205 H (65-110) mg/dL Random Glucose 280 H (70-110) mg/dL Calcium 8.7 (8.4-10.5) mg/dL Total Bilirubin 1.1 (0.2-1.3) mg/dL AST 29 (17-59) U/L ALT 70 H (7-56) U/L Alkaline Phosphatase 84 (38-126) U/L Total Protein 6.8 (5.8-8.3) g/dL Albumin 3.0 (3.0-4.8) g/dL Globulin 3.8 gm/dL Albumin/Globulin Ratio 0.8 L (1.1-1.8) 07/16/18 Range/Units 07:15 WBC (4.5-11.0) 10^3/uL RBC (3.5-6.1) 10^6/uL Hgb (14.0-18.0) g/dL Hct (42.0-52.0) % MCV (80.0-105.0) fl MCH (25.0-35.0) pg MCHC (31.0-37.0) g/dl RDW (11.5-14.5) % Plt Count (120.0-450.0) 10^3/uL Manual Plt Count 52 L (120-450) K/mm3 Gran % (50.0-68.0) % Lymph % (Auto) (22.0-35.0) % [place] % (Auto) (1.0-6.0) % Eos % (Auto) (1.5-5.0) % Baso % (Auto) (0.0-3.0) % Gran # (1.4-6.5) Lymph # (Auto) (1.2-3.4) [place] # (Auto) (0.1-0.6) Eos # (Auto) (0.0-0.7) Baso # (Auto) (0.0-2.0) K/mm3 pCO2 (35-45) mm/Hg pO2 (80-100) mm/Hg HCO3 (21-28) mmol/L ABG pH (7.35-7.45) ABG Total CO2 (22-28) mmol.L ABG O2 Saturation (95-98) % ABG O2 Content (15-23) ML/dl ABG Base Excess (-2.0-3.0) mmol/L ABG Hemoglobin (11.7-17.4) g/dL ABG Carboxyhemoglobin (0.5-1.5) % POC ABG HHb (Measured) (0-5) % ABG Methemoglobin (0.0-3.0) % ABG O2 Capacity (16-24) mL/dl Hgb O2 Saturation (95.0-98.0) % FiO2 % Sodium (132-148) mmol/L Potassium (3.6-5.0) mmol/L Chloride (98-107) mmol/L Carbon Dioxide (21-33) mmol/L Anion Gap (10-20) BUN (7-21) mg/dL Creatinine (0.8-1.5) mg/dl Est GFR ( Amer) Est GFR (Non-Af Amer) POC Glucose (mg/dL) (65-110) mg/dL Random Glucose (70-110) mg/dL Calcium (8.4-10.5) mg/dL Total Bilirubin (0.2-1.3) mg/dL AST (17-59) U/L ALT (7-56) U/L Alkaline Phosphatase (38-126) U/L Total Protein (5.8-8.3) g/dL Albumin (3.0-4.8) g/dL Globulin gm/dL Albumin/Globulin Ratio (1.1-1.8) Laboratory Results - last 24 hr 07/16/18 07/16/18 07/16/18 07:15 11:13 17:02 WBC RBC Hgb Hct MCV MCH MCHC RDW Plt Count Manual Plt Count 52 L Gran % Lymph % (Auto) [place] % (Auto) Eos % (Auto) Baso % (Auto) Gran # Lymph # (Auto) [place] # (Auto) Eos # (Auto) Baso # (Auto) pCO2 pO2 HCO3 ABG pH ABG Total CO2 ABG O2 Saturation ABG O2 Content ABG Base Excess ABG Hemoglobin ABG Carboxyhemoglobin POC ABG HHb (Measured) ABG Methemoglobin ABG O2 Capacity Hgb O2 Saturation FiO2 Sodium Potassium Chloride Carbon Dioxide Anion Gap BUN Creatinine Est GFR ( Amer) Est GFR (Non-Af Amer) POC Glucose (mg/dL) 205 H 253 H Random Glucose Calcium Total Bilirubin AST ALT Alkaline Phosphatase Total Protein Albumin Globulin Albumin/Globulin Ratio 07/16/18 07/16/18 07/17/18 17:31 22:13 05:10 WBC RBC Hgb Hct MCV MCH MCHC RDW Plt Count Manual Plt Count Gran % Lymph % (Auto) [place] % (Auto) Eos % (Auto) Baso % (Auto) Gran # Lymph # (Auto) [place] # (Auto) Eos # (Auto) Baso # (Auto) pCO2 34 L pO2 95.0 HCO3 22.6 ABG pH 7.43 ABG Total CO2 23.6 ABG O2 Saturation 98.9 H ABG O2 Content 12.7 L ABG Base Excess -1.4 ABG Hemoglobin 9.3 L ABG Carboxyhemoglobin 2.4 H POC ABG HHb (Measured) 1.1 ABG Methemoglobin 0.8 ABG O2 Capacity 12.8 L Hgb O2 Saturation 95.7 FiO2 32.0 Sodium 157 H* Potassium 4.5 Chloride 129 H Carbon Dioxide 25 Anion Gap 8 L BUN 106 H Creatinine 2.3 H Est GFR ( Amer) 35 Est GFR (Non-Af Amer) 29 POC Glucose (mg/dL) 283 H Random Glucose 280 H Calcium 8.7 Total Bilirubin 1.1 AST 29 ALT 70 H Alkaline Phosphatase 84 Total Protein 6.8 Albumin 3.0 Globulin 3.8 Albumin/Globulin Ratio 0.8 L 07/17/18 07/17/18 07/17/18 05:27 05:30 05:30 WBC 16.1 H RBC 3.48 L Hgb 9.1 L Hct 31.2 L MCV 89.7 MCH 26.1 MCHC 29.2 L RDW 17.2 H Plt Count 30 L* Manual Plt Count Gran % 94.8 H Lymph % (Auto) 3.[address] [place] % (Auto) 1.4 Eos % (Auto) 0.0 L Baso % (Auto) 0.0 Gran # 15.23 H Lymph # (Auto) 0.[address] [place] # (Auto) 0.2 Eos # (Auto) 0.0 Baso # (Auto) 0.00 pCO2 pO2 HCO3 ABG pH ABG Total CO2 ABG O2 Saturation ABG O2 Content ABG Base Excess ABG Hemoglobin ABG Carboxyhemoglobin POC ABG HHb (Measured) ABG Methemoglobin ABG O2 Capacity Hgb O2 Saturation FiO2 Sodium 155 H Potassium 4.2 Chloride 126 H Carbon Dioxide 25 Anion Gap 7 L BUN 100 H Creatinine 2.1 H Est GFR ( Amer) 39 Est GFR (Non-Af Amer) 32 POC Glucose (mg/dL) 307 H Random Glucose 299 H Calcium 8.5 Total Bilirubin 1.1 AST 36 ALT 63 H Alkaline Phosphatase 84 Total Protein 6.5 Albumin 2.9 L Globulin 3.5 Albumin/Globulin Ratio 0.8 L 07/17/18 07:50 WBC RBC Hgb Hct MCV MCH MCHC RDW Plt Count Manual Plt Count Gran % Lymph % (Auto) [place] % (Auto) Eos % (Auto) Baso % (Auto) Gran # Lymph # (Auto) [place] # (Auto) Eos # (Auto) Baso # (Auto) pCO2 pO2 HCO3 ABG pH ABG Total CO2 ABG O2 Saturation ABG O2 Content ABG Base Excess ABG Hemoglobin ABG Carboxyhemoglobin POC ABG HHb (Measured) ABG Methemoglobin ABG O2 Capacity Hgb O2 Saturation FiO2 Sodium Potassium Chloride Carbon Dioxide Anion Gap BUN Creatinine Est GFR ( Amer) Est GFR (Non-Af Amer) POC Glucose (mg/dL) 312 H Random Glucose Calcium Total Bilirubin AST ALT Alkaline Phosphatase Total Protein Albumin Globulin Albumin/Globulin Ratio Radiology Impressions: Radiology Impressions Chest X-Ray 07/16/18 08:26 IMPRESSION: As above Fingerstick Blood Sugar Results: 307 Review of Systems - Review of Systems Review of Systems: 12 point ROS unable to be ascertained due to clinical condition. Critical Care Progress Note - Extremities/Vascular Does the Patient have a Ash Catheter?: Yes Does the Patient need a Ash Catheter?: Yes - Nutrition Nutrition: Nutrition Category Date Time Status NPO Diet [DIET] Diets 07/06/18 Breakfast Ordered Assessment/Plan - Assessment and Plan (Free Text) Assessment: 62 y/o male with PMHx of COPD, active smoker 1pk per day, HTN, DM, PVD, presents with ER with 2 day history of fever, chills, associated with cough that is non-productive. Yesterday, patient also developed SOB. Pt was found to have increased work of breathing, RR 35-40, subsequently intubated. Placed on low tidal vol. ventilation. Patient was initially started on heparin drip given elevated troponin, and markedly diminished EF. Hep drip currently held secondary to thrombocytopenia. Initially paralyzed on Nimbex after overbreathing ventilator. Currently in MODS. No fevers overnight. Cardizem drip at 5. Neuro: - 07/13/18 MRI brain without contrast negative for acute abnormalities - Results of EEG 07/10/[address] Roland: moderate nonspecific diffuse disturbance of cortical activity, nonspecific diffuse fernandez matter dysfunction, no seizures, not in status epilepticus - Neuro consult - Dr. Harvinder Mcdaniels - recs appreciated. Poor motor function likely 2/2 critical illness polyneuropathy. Further imaging/biopsy recs per neuro - Critical Illness Polyneuropathy - appreciate further PT and Neuro recs. Steroid 500 mg IV bolus given. - 07/10/18 CT head without contrast negative - AAOx0, continue on sedation. - Pt. responds to painful stimuli - Continuous and frequent PT daily- recs appreciated - Continue to monitor Pulm CAP and Flu A + : resolved 07/17/18 CXR shows perihilar fullness, no consolidation appreciated, f/u final read - Duonebs seema q6 and PRN q2 - Urine Lg and Strep negative - Procal 4.85, repeat 5.96, 1.37 - ID eval: Dr. Fernandes - recs appreciated - Pulm consulted - Dr. Burr, recs appreciated - Resp therapy Cardio HFrEF - BNP [id number] - 07/03/18 echo report shows EF 14.2%, mildly dilated LV, systolic function severely impaired, akinetic septum, moderate TR and pulm HTN NSTEMI - Trop 0.48, 0.67, 0.67 - Cardiology consulted - Dr. Saxena. Cardiac cath on hold due to persistent thrombocytopenia. Hold Lasix per cardio. Further recs appreciated. - Continue Cardizem and Dig for new onset A fib. Recs appreciated to convert to PO. - Dig level 07/13/18 0.8 - Hold IVF d/t poor EF. - Hold Heparin drip - 07/07/18 EKG showed sinus tach - 07/08/18 EKG shows NSR, no ST or T wave changes, LVH - 07/09/18 EKG shows NSR @ 82 bpm, LVH - 07/10/18 EKG shows NSR @ 82 bpm, LVH, no peaked T waves Chronic Thrombocytopenia, ITP - Has received frequent intermittent transfusions as outpatient per medical record - PLT 30, manual count 25 - HIT Antibody negative - Hem consult placed- Dr. Estevez. 4 unit PLT transfused. IV gammaglobulin 5 day course completed. Plan to run 1000 units of Heparin with HD. Further recs appreciated per Dr. Estevez. - Negative IVONE and ANCA studies - 07/08/18 Peripheral smear shows no atypical cells or immature forms. Mild anisopoikilocytosis. No schistocytes. No PL clumping although markedly reduced. - ESR 45 - Split products >10 but <40 Stable Normocytic Anemia - Hgb 9.1 this AM, no obvious sign of bleed Endo Uncontrolled DM - Hgb a1c 8.2, accuchecks ACHS - Continue Levemir 20 units HS, recent RBGs 236 lkely elevated 2/2 steroids - Diabetic education GI - Dobhoff in place, on Nepro and free water flushes Lipid panel - TG elevated at 172 Shock liver Transaminitis AST /ALT 307/224 > 543/409> 592/570> 717/746> 558/687> 270/476> 45/106, normal Alk Phos. Hold hepatotoxic drugs Hep panel negative - 07/03/18 RUQ U/S shows hepatosplenomegaly PTX for Ppx Nephro OG on HD - Tolerated first HD 07/07/18 s/p triple lumen catheter in L femoral vein. Replaced in R femoral vein after clot - Currently holding IVF and Diuretics per cardio. Nephro input appreciated - Improved BUN/Cr 100/2.1 - Strict Is and Os. Profuse urine production - Ash in place. - Not candidate for kidney biopsy at this time due to inability to tolerate procedure - Nephro consult - recs appreciated No HD planned for today- Dr. Sullivan - recs appreciated. Patient in prerenal hypercatabolic state 2/2 sepsis. NGT for free water recommended Worsening Hypernatremia, Hyperchloremia - 155, 126 - continue water flushes at 400 q4. F/u swallow eval recs - Continue D5H20 @ 100 cc/hr - f/u nephro recs - repeat urine electrolytes? MSK - Wound care consulted - Podiatry consulted- Dr. Richardson- recs appreciated- no acute intervention at this time. Has signed off. - OT/PT eval ID - No fever overnight, likely drug fever 2/2 Merrem. Leukocytosis 16.1. Will monitor off ABx. - Tylenol 650 q6 PRN for fever >101 - Ammonia level <9 - Rapid influenza A positive > Tamiflu course completed - ID eval: Dr. Fernandes - Merrem, Doxy course completed. Monitor off ABx - 1 dose Vanc given 07/05/18 and 07/06/18. Dose given 07/13/18. - Sputum cx shows yeast species, blood cx neg after 5 days, repeat UA negative, repeat sputum cx growing moderate amount of yeast. - GI ppx: PTX - DVT ppx: Hep drip held in light of thrombocytopenia, Heparin with HD Dispo: Frequent PT appreciated for deconditioning Patient seen, case reviewed and plan approved by Dr. Pineda. Ismael Turner, PGY-1 <Giovanny Pineda - Last Filed: 07/17/18 12:12> CCU Objective - Vital Signs / Intake & Output Intake and Output (Last 8hrs): Intake & Output 07/16/18 07/17/18 07/17/18 22:59 06:59 14:59 Intake Total 2560 1260 Output Total 1000 1300 Balance 1560 -40 Weight 187 lb Intake: IV 1360 1260 Left Wrist 1360 cardizem 60 d5w 1200 Other 1200 Output: Urine 1000 1300 Urethral (Ash) 1000 1300 Other: # Bowel Movements 0 - Medications Active Medications: Active Medications Generic Name Dose Route Start Last Admin Trade Name Freq PRN Reason Stop Dose Admin Acetaminophen 650 mg 07/08/18 18:18 07/14/18 12:29 Tylenol 650mg/20.3ml Solution Ud PO 650 mg Q6H PRN Administration Fever 101F Albuterol/Ipratropium 3 ml 07/03/18 14:00 07/17/18 07:00 Duoneb 3 Mg/0.5 Mg (3 Ml) Ud IH 3 ml [id number] SEEMA Administration Albuterol/Ipratropium 3 ml 07/03/18 11:04 07/11/18 23:55 Duoneb 3 Mg/0.5 Mg (3 Ml) Ud IH 3 ml Q2H PRN Administration Shortness of Breath Digoxin 0.125 mg 07/13/18 14:00 07/16/18 13:56 Lanoxin IVP 0.125 mg 1400 SEEMA Administration Diltiazem HCl 60 mg 07/17/18 14:00 Cardizem PO TID [facility] Heparin Sodium (Porcine) 3,000 units 07/11/18 10:09 07/14/18 15:43 Heparin IVP 3,000 units ONCE PRN Administration Other diltiaZEM IVPB 100mg in NS 100 mls @ 5 mls/hr 07/11/18 17:41 07/17/18 03:00 Cardizem 100mg In Ns IV 5 mg/hr .Q20H PRN 5 mls/hr TITRATE PER MD ORDER Administration Protocol 5 MG/HR Dextrose 1,000 mls @ 100 mls/hr 07/17/18 05:34 07/17/18 05:43 Dextrose 5% In Water 1000 Ml IV 100 mls/hr .Q10H SEEMA Administration Insulin Detemir 30 unit 07/17/18 10:39 Levemir SC HS [facility] Insulin Human Regular 0 units 07/12/18 11:15 07/17/18 11:35 Humulin R High SC 10 units Q6H SEEMA Administration Protocol Pantoprazole Sodium 40 mg 07/03/18 14:15 07/17/18 09:58 Protonix Inj IVP 40 mg DAILY SEEMA Administration Vitamin A 1 applic 07/13/18 16:53 Vitamin A&D TP Q8 PRN Dry mouth - Patient Studies Lab Studies: Microbiology Studies 07/13/18 10:20 Blood Culture - Preliminary Blood-Venous NO GROWTH AFTER 4 DAYS 07/13/18 10:00 Blood Culture - Preliminary Blood-Venous NO GROWTH AFTER 4 DAYS Lab Studies 07/17/18 07/17/18 07/17/18 Range/Units 10:10 07:50 05:30 WBC (4.5-11.0) 10^3/uL RBC (3.5-6.1) 10^6/uL Hgb (14.0-18.0) g/dL Hct (42.0-52.0) % MCV (80.0-105.0) fl MCH (25.0-35.0) pg MCHC (31.0-37.0) g/dl RDW (11.5-14.5) % Plt Count (120.0-450.0) 10^3/uL Manual Plt Count 25 L* (120-450) K/mm3 Gran % (50.0-68.0) % Lymph % (Auto) (22.0-35.0) % [place] % (Auto) (1.0-6.0) % Eos % (Auto) (1.5-5.0) % Baso % (Auto) (0.0-3.0) % Gran # (1.4-6.5) Lymph # (Auto) (1.2-3.4) [place] # (Auto) (0.1-0.6) Eos # (Auto) (0.0-0.7) Baso # (Auto) (0.0-2.0) K/mm3 pCO2 (35-45) mm/Hg pO2 (80-100) mm/Hg HCO3 (21-28) mmol/L ABG pH (7.35-7.45) ABG Total CO2 (22-28) mmol.L ABG O2 Saturation (95-98) % ABG O2 Content (15-23) ML/dl ABG Base Excess (-2.0-3.0) mmol/L ABG Hemoglobin (11.7-17.4) g/dL ABG Carboxyhemoglobin (0.5-1.5) % POC ABG HHb (Measured) (0-5) % ABG Methemoglobin (0.0-3.0) % ABG O2 Capacity (16-24) mL/dl Hgb O2 Saturation (95.0-98.0) % FiO2 % Sodium 155 H (132-148) mmol/L Potassium 4.2 (3.6-5.0) mmol/L Chloride 126 H (98-107) mmol/L Carbon Dioxide 25 (21-33) mmol/L Anion Gap 7 L (10-20) BUN 100 H (7-21) mg/dL Creatinine 2.1 H (0.8-1.5) mg/dl Est GFR ( Amer) 39 Est GFR (Non-Af Amer) 32 POC Glucose (mg/dL) 312 H (65-110) mg/dL Random Glucose 299 H (70-110) mg/dL Calcium 8.5 (8.4-10.5) mg/dL Total Bilirubin 1.1 (0.2-1.3) mg/dL AST 36 (17-59) U/L ALT 63 H (7-56) U/L Alkaline Phosphatase 84 (38-126) U/L Total Protein 6.5 (5.8-8.3) g/dL Albumin 2.9 L (3.0-4.8) g/dL Globulin 3.5 gm/dL Albumin/Globulin Ratio 0.8 L (1.1-1.8) 07/17/18 07/17/18 07/17/18 Range/Units 05:30 05:27 05:10 WBC 16.1 H (4.5-11.0) 10^3/uL RBC 3.48 L (3.5-6.1) 10^6/uL Hgb 9.1 L (14.0-18.0) g/dL Hct 31.2 L (42.0-52.0) % MCV 89.7 (80.0-105.0) fl MCH 26.1 (25.0-35.0) pg MCHC 29.2 L (31.0-37.0) g/dl RDW 17.2 H (11.5-14.5) % Plt Count 30 L* (120.0-450.0) 10^3/uL Manual Plt Count (120-450) K/mm3 Gran % 94.8 H (50.0-68.0) % Lymph % (Auto) 3.8 L (22.0-35.0) % [place] % (Auto) 1.4 (1.0-6.0) % Eos % (Auto) 0.0 L (1.5-5.0) % Baso % (Auto) 0.0 (0.0-3.0) % Gran # 15.23 H (1.4-6.5) Lymph # (Auto) 0.6 L (1.2-3.4) [place] # (Auto) 0.2 (0.1-0.6) Eos # (Auto) 0.0 (0.0-0.7) Baso # (Auto) 0.00 (0.0-2.0) K/mm3 pCO2 34 L (35-45) mm/Hg pO2 95.0 (80-100) mm/Hg HCO3 22.6 (21-28) mmol/L ABG pH 7.43 (7.35-7.45) ABG Total CO2 23.6 (22-28) mmol.L ABG O2 Saturation 98.9 H (95-98) % ABG O2 Content 12.7 L (15-23) ML/dl ABG Base Excess -1.4 (-2.0-3.0) mmol/L ABG Hemoglobin 9.3 L (11.7-17.4) g/dL ABG Carboxyhemoglobin 2.4 H (0.5-1.5) % POC ABG HHb (Measured) 1.1 (0-5) % ABG Methemoglobin 0.8 (0.0-3.0) % ABG O2 Capacity 12.8 L (16-24) mL/dl Hgb O2 Saturation 95.7 (95.0-98.0) % FiO2 32.0 % Sodium (132-148) mmol/L Potassium (3.6-5.0) mmol/L Chloride (98-107) mmol/L Carbon Dioxide (21-33) mmol/L Anion Gap (10-20) BUN (7-21) mg/dL Creatinine (0.8-1.5) mg/dl Est GFR ( Amer) Est GFR (Non-Af Amer) POC Glucose (mg/dL) 307 H (65-110) mg/dL Random Glucose (70-110) mg/dL Calcium (8.4-10.5) mg/dL Total Bilirubin (0.2-1.3) mg/dL AST (17-59) U/L ALT (7-56) U/L Alkaline Phosphatase (38-126) U/L Total Protein (5.8-8.3) g/dL Albumin (3.0-4.8) g/dL Globulin gm/dL Albumin/Globulin Ratio (1.1-1.8) 07/16/18 07/16/18 07/16/18 Range/Units 22:13 17:31 17:02 WBC (4.5-11.0) 10^3/uL RBC (3.5-6.1) 10^6/uL Hgb (14.0-18.0) g/dL Hct (42.0-52.0) % MCV (80.0-105.0) fl MCH (25.0-35.0) pg MCHC (31.0-37.0) g/dl RDW (11.5-14.5) % Plt Count (120.0-450.0) 10^3/uL Manual Plt Count (120-450) K/mm3 Gran % (50.0-68.0) % Lymph % (Auto) (22.0-35.0) % [place] % (Auto) (1.0-6.0) % Eos % (Auto) (1.5-5.0) % Baso % (Auto) (0.0-3.0) % Gran # (1.4-6.5) Lymph # (Auto) (1.2-3.4) [place] # (Auto) (0.1-0.6) Eos # (Auto) (0.0-0.7) Baso # (Auto) (0.0-2.0) K/mm3 pCO2 (35-45) mm/Hg pO2 (80-100) mm/Hg HCO3 (21-28) mmol/L ABG pH (7.35-7.45) ABG Total CO2 (22-28) mmol.L ABG O2 Saturation (95-98) % ABG O2 Content (15-23) ML/dl ABG Base Excess (-2.0-3.0) mmol/L ABG Hemoglobin (11.7-17.4) g/dL ABG Carboxyhemoglobin (0.5-1.5) % POC ABG HHb (Measured) (0-5) % ABG Methemoglobin (0.0-3.0) % ABG O2 Capacity (16-24) mL/dl Hgb O2 Saturation (95.0-98.0) % FiO2 % Sodium 157 H* (132-148) mmol/L Potassium 4.5 (3.6-5.0) mmol/L Chloride 129 H (98-107) mmol/L Carbon Dioxide 25 (21-33) mmol/L Anion Gap 8 L (10-20) BUN 106 H (7-21) mg/dL Creatinine 2.3 H (0.8-1.5) mg/dl Est GFR ( Amer) 35 Est GFR (Non-Af Amer) 29 POC Glucose (mg/dL) 283 H 253 H (65-110) mg/dL Random Glucose 280 H (70-110) mg/dL Calcium 8.7 (8.4-10.5) mg/dL Total Bilirubin 1.1 (0.2-1.3) mg/dL AST 29 (17-59) U/L ALT 70 H (7-56) U/L Alkaline Phosphatase 84 (38-126) U/L Total Protein 6.8 (5.8-8.3) g/dL Albumin 3.0 (3.0-4.8) g/dL Globulin 3.8 gm/dL Albumin/Globulin Ratio 0.8 L (1.1-1.8) 07/16/18 Range/Units 11:13 WBC (4.5-11.0) 10^3/uL RBC (3.5-6.1) 10^6/uL Hgb (14.0-18.0) g/dL Hct (42.0-52.0) % MCV (80.0-105.0) fl MCH (25.0-35.0) pg MCHC (31.0-37.0) g/dl RDW (11.5-14.5) % Plt Count (120.0-450.0) 10^3/uL Manual Plt Count (120-450) K/mm3 Gran % (50.0-68.0) % Lymph % (Auto) (22.0-35.0) % [place] % (Auto) (1.0-6.0) % Eos % (Auto) (1.5-5.0) % Baso % (Auto) (0.0-3.0) % Gran # (1.4-6.5) Lymph # (Auto) (1.2-3.4) [place] # (Auto) (0.1-0.6) Eos # (Auto) (0.0-0.7) Baso # (Auto) (0.0-2.0) K/mm3 pCO2 (35-45) mm/Hg pO2 (80-100) mm/Hg HCO3 (21-28) mmol/L ABG pH (7.35-7.45) ABG Total CO2 (22-28) mmol.L ABG O2 Saturation (95-98) % ABG O2 Content (15-23) ML/dl ABG Base Excess (-2.0-3.0) mmol/L ABG Hemoglobin (11.7-17.4) g/dL ABG Carboxyhemoglobin (0.5-1.5) % POC ABG HHb (Measured) (0-5) % ABG Methemoglobin (0.0-3.0) % ABG O2 Capacity (16-24) mL/dl Hgb O2 Saturation (95.0-98.0) % FiO2 % Sodium (132-148) mmol/L Potassium (3.6-5.0) mmol/L Chloride (98-107) mmol/L Carbon Dioxide (21-33) mmol/L Anion Gap (10-20) BUN (7-21) mg/dL Creatinine (0.8-1.5) mg/dl Est GFR ( Amer) Est GFR (Non-Af Amer) POC Glucose (mg/dL) 205 H (65-110) mg/dL Random Glucose (70-110) mg/dL Calcium (8.4-10.5) mg/dL Total Bilirubin (0.2-1.3) mg/dL AST (17-59) U/L ALT (7-56) U/L Alkaline Phosphatase (38-126) U/L Total Protein (5.8-8.3) g/dL Albumin (3.0-4.8) g/dL Globulin gm/dL Albumin/Globulin Ratio (1.1-1.8) Laboratory Results - last 24 hr 07/16/18 07/16/18 07/16/18 11:13 17:02 17:31 WBC RBC Hgb Hct MCV MCH MCHC RDW Plt Count Manual Plt Count Gran % Lymph % (Auto) [place] % (Auto) Eos % (Auto) Baso % (Auto) Gran # Lymph # (Auto) [place] # (Auto) Eos # (Auto) Baso # (Auto) pCO2 pO2 HCO3 ABG pH ABG Total CO2 ABG O2 Saturation ABG O2 Content ABG Base Excess ABG Hemoglobin ABG Carboxyhemoglobin POC ABG HHb (Measured) ABG Methemoglobin ABG O2 Capacity Hgb O2 Saturation FiO2 Sodium 157 H* Potassium 4.5 Chloride 129 H Carbon Dioxide 25 Anion Gap 8 L BUN 106 H Creatinine 2.3 H Est GFR ( Amer) 35 Est GFR (Non-Af Amer) 29 POC Glucose (mg/dL) 205 H 253 H Random Glucose 280 H Calcium 8.7 Total Bilirubin 1.1 AST 29 ALT 70 H Alkaline Phosphatase 84 Total Protein 6.8 Albumin 3.0 Globulin 3.8 Albumin/Globulin Ratio 0.8 L 07/16/18 07/17/18 07/17/18 22:13 05:10 05:27 WBC RBC Hgb Hct MCV MCH MCHC RDW Plt Count Manual Plt Count Gran % Lymph % (Auto) [place] % (Auto) Eos % (Auto) Baso % (Auto) Gran # Lymph # (Auto) [place] # (Auto) Eos # (Auto) Baso # (Auto) pCO2 34 L pO2 95.0 HCO3 22.6 ABG pH 7.43 ABG Total CO2 23.6 ABG O2 Saturation 98.9 H ABG O2 Content 12.7 L ABG Base Excess -1.4 ABG Hemoglobin 9.3 L ABG Carboxyhemoglobin 2.4 H POC ABG HHb (Measured) 1.1 ABG Methemoglobin 0.8 ABG O2 Capacity 12.8 L Hgb O2 Saturation 95.7 FiO2 32.0 Sodium Potassium Chloride Carbon Dioxide Anion Gap BUN Creatinine Est GFR ( Amer) Est GFR (Non-Af Amer) POC Glucose (mg/dL) 283 H 307 H Random Glucose Calcium Total Bilirubin AST ALT Alkaline Phosphatase Total Protein Albumin Globulin Albumin/Globulin Ratio 07/17/18 07/17/18 07/17/18 05:30 05:30 07:50 WBC 16.1 H RBC 3.48 L Hgb 9.1 L Hct 31.2 L MCV 89.7 MCH 26.1 MCHC 29.2 L RDW 17.2 H Plt Count 30 L* Manual Plt Count Gran % 94.8 H Lymph % (Auto) 3.[address] [place] % (Auto) 1.4 Eos % (Auto) 0.0 L Baso % (Auto) 0.0 Gran # 15.23 H Lymph # (Auto) 0.[address] [place] # (Auto) 0.2 Eos # (Auto) 0.0 Baso # (Auto) 0.00 pCO2 pO2 HCO3 ABG pH ABG Total CO2 ABG O2 Saturation ABG O2 Content ABG Base Excess ABG Hemoglobin ABG Carboxyhemoglobin POC ABG HHb (Measured) ABG Methemoglobin ABG O2 Capacity Hgb O2 Saturation FiO2 Sodium 155 H Potassium 4.2 Chloride 126 H Carbon Dioxide 25 Anion Gap 7 L BUN 100 H Creatinine 2.1 H Est GFR ( Amer) 39 Est GFR (Non-Af Amer) 32 POC Glucose (mg/dL) 312 H Random Glucose 299 H Calcium 8.5 Total Bilirubin 1.1 AST 36 ALT 63 H Alkaline Phosphatase 84 Total Protein 6.5 Albumin 2.9 L Globulin 3.5 Albumin/Globulin Ratio 0.8 L 07/17/18 10:10 WBC RBC Hgb Hct MCV MCH MCHC RDW Plt Count Manual Plt Count 25 L* Gran % Lymph % (Auto) [place] % (Auto) Eos % (Auto) Baso % (Auto) Gran # Lymph # (Auto) [place] # (Auto) Eos # (Auto) Baso # (Auto) pCO2 pO2 HCO3 ABG pH ABG Total CO2 ABG O2 Saturation ABG O2 Content ABG Base Excess ABG Hemoglobin ABG Carboxyhemoglobin POC ABG HHb (Measured) ABG Methemoglobin ABG O2 Capacity Hgb O2 Saturation FiO2 Sodium Potassium Chloride Carbon Dioxide Anion Gap BUN Creatinine Est GFR ( Amer) Est GFR (Non-Af Amer) POC Glucose (mg/dL) Random Glucose Calcium Total Bilirubin AST ALT Alkaline Phosphatase Total Protein Albumin Globulin Albumin/Globulin Ratio Radiology Impressions: Radiology Impressions Chest X-Ray 07/17/18 06:00 IMPRESSION: Vascular congestion with left lower lobe perihilar infiltrate Critical Care Progress Note - Nutrition Nutrition: Nutrition Category Date Time Status NPO Diet [DIET] Diets 07/06/18 Breakfast Ordered Attending/Attestation - Attestation I have personally seen and examined this patient.: Yes I have fully participated in the care of the patient.: Yes I have reviewed all pertinent clinical information: Yes Notes (Text): 07/17/18 12:07 The patient was seen and examined at the bedside. Patient care was discussed with resident Medical records, lab studies were reviewed and management issues were discussed and formulated. Agree with above treatment plans as outlined in 's note with addition of the following: Acute Respiratory Failure \ Hypoxemia \ Sepsis \ PNA \ Hypernatremia \ OG on CKD \ Thrombocytopenia \ Acute on chronic systolic CHF \ Afib with RVR \ Polyneuropathy \ DM 2 -hemodynamic monitoring to maintain MAP>65 -continue cardizem drip; cardiology team f\u -O2 supplementation to maintain Spo2>90 Pao2>60; s\p extubation , currently on NC -continue nebs and pulmonary toilet -broad spectrum ABX as per ID team and f\u cultures -f\u Bun\Cr and U\o, continue IVF with D5W; monitor Na+ levels -tube feeds diet and free water flushes ; aspiration precautions -neurology team f\u -ISS and Lantus; BGM monitoring -f\u serial CBC and for bleeding -DVT\PUD prophylaxis CCM time 33min
--- NOTE | 2018-07-17 09:37 | RAD ---
Date of service: 07/17/2018 HISTORY: f/u COMPARISON: 07/16/2018 FINDINGS: LUNGS: Vascular congestion with left lower lobe perihilar infiltrate PLEURA: No significant pleural effusion identified, no pneumothorax apparent. CARDIOVASCULAR: No aortic atherosclerotic calcification present. Normal cardiac size. No pulmonary vascular congestion. OSSEOUS STRUCTURES: No significant abnormalities. VISUALIZED UPPER ABDOMEN: The nasogastric tube is in satisfactory position OTHER FINDINGS: None. IMPRESSION: Vascular congestion with left lower lobe perihilar infiltrate
--- NOTE | 2018-07-17 12:06 | PN ---
DATE: 07/17/2018 CARDIOLOGY FOLLOWUP SUBJECTIVE: The patient remains off the ventilator and is without acute dyspnea. PHYSICAL EXAMINATION: VITAL SIGNS: Blood pressure is 129/77 and heart rate is in the 80s. NECK: Negative JVD. LUNGS: Decreased breath sounds. HEART: Reveal S1 and S2. EXTREMITIES: Without change. LABORATORY DATA: Hemoglobin is 9.1, white count is 16.1 and platelet count is 30,000. IMPRESSION: 1. Status post respiratory failure. 2. Non-ST elevation myocardial infarction. 3. End-stage renal disease. 4. Dilated cardiomyopathy. 5. Thrombocytopenia. Given these findings, the patient is hemodynamically unchanged. His neuro status is of concern. We will add p.o. Cardizem to his regimen. Benjamin Saxena MD
--- NOTE | 2018-07-17 12:47 | PN ---
DATE: 07/17/2018 SUBJECTIVE: The patient is a 62-year-old white male, in the intensive care unit bed #5. The patient is now extubated and there have been no acute events overnight. He does follow verbal commands. PHYSICAL EXAMINATION: VITAL SIGNS: Temperature 99.9, pulse rate 85, respiratory rate of 26, O2 saturation of 100 and this is on a 3-liter nasal cannula. HEENT: PERRLA, EOMI. NECK: Supple. No bruits or icterus are present. LUNGS: Clear bilaterally. HEART: Regular rate and rhythm. ABDOMEN: Benign. No organomegaly. Bowel sounds are normoactive. EXTREMITIES: Show no deformities or edema. NEUROLOGIC: The patient is responsive to verbal stimuli, but he is not communicating verbally. LABORATORY DATA: WBCs of 16.1, H and H is 19.1 and 31.2, platelet count is 30,000. Chemistry, his sodium is down to 155, chloride is down to 126, BUN of 100, creatinine of 2.1. Random glucose of 299. We will continue current regimen. The patient will also need a cardiac catheterization in the near future. PROBLEM LIST: Sepsis, acute hypoxemic respiratory failure, symptomatic anemia, chest pain, non-ST elevation myocardial infarction. PLAN: Continue current regimen. Cipriano Martinez MD
[2018-07-17] MEDS: Digoxin 500 mcg/2ml (0.5 mg/2ml) Inj IVP SCH (14:16)
[2018-07-17 14:21] LABS: CALCIUM 8.5 mg/dL (8.4-10.5)
--- NOTE | 2018-07-17 14:56 | CP.PCM.PN ---
Subjective - Date & Time of Evaluation Date of Evaluation: 07/17/18 Time of Evaluation: 14:20 - Subjective Subjective: Comfortable in bed but still lethargic, had low grade fevers yesterday but not today. Objective - Vital Signs/Intake and Output Vital Signs (last 24 hours): Temp Pulse Resp BP Pulse Ox 99.9 F H 82 26 H 117/57 L 100 07/17/18 07:00 07/17/18 14:40 07/17/18 07:00 07/17/18 14:40 07/17/18 07:00 Intake and Output: 07/17/18 07/17/18 06:59 18:59 Intake Total 1260 Output Total 1300 Balance -40 - Medications Medications: Current Medications Acetaminophen (Tylenol 650mg/20.3ml Solution Ud) 650 mg PO Q6H PRN PRN Reason: Fever 101F Last Admin: 07/14/18 12:29 Dose: 650 mg Albuterol/Ipratropium (Duoneb 3 Mg/0.5 Mg (3 Ml) Ud) 3 ml IH [id number] [facility] Last Admin: 07/17/18 13:31 Dose: 3 ml Albuterol/Ipratropium (Duoneb 3 Mg/0.5 Mg (3 Ml) Ud) 3 ml IH Q2H PRN PRN Reason: Shortness of Breath Last Admin: 07/11/18 23:55 Dose: 3 ml Digoxin (Lanoxin) 0.125 mg IVP 1400 JHON Last Admin: 07/17/18 14:16 Dose: 0.125 mg Diltiazem HCl (Cardizem) 60 mg PO TID [facility] Last Admin: 07/17/18 14:40 Dose: 60 mg Heparin Sodium (Porcine) (Heparin) 3,000 units IVP ONCE PRN PRN Reason: Other Last Admin: 07/14/18 15:43 Dose: 3,000 units diltiaZEM IVPB 100mg in NS (Cardizem 100mg In Ns) 100 mls @ 5 mls/hr IV .Q20H PRN; Protocol PRN Reason: TITRATE PER MD ORDER Last Admin: 07/17/18 03:00 Dose: 5 mg/hr, 5 mls/hr Dextrose (Dextrose 5% In Water 1000 Ml) 1,000 mls @ 100 mls/hr IV .Q10H [facility] Last Admin: 07/17/18 05:43 Dose: 100 mls/hr Insulin Detemir (Levemir) 30 unit SC HS [facility] Insulin Human Regular (Humulin R High) 0 units SC Q6H [facility]; Protocol Last Admin: 07/17/18 11:35 Dose: 10 units Pantoprazole Sodium (Protonix Inj) 40 mg IVP DAILY [facility] Last Admin: 07/17/18 09:58 Dose: 40 mg Vitamin A (Vitamin A&D) 1 applic TP Q8 PRN PRN Reason: Dry mouth - Labs Labs: 07/17/18 05:30 07/17/18 11:55 PT 13.8 SECONDS (9.4-12.5) H 07/09/18 09:15 INR 1.20 07/09/18 09:15 APTT 18.7 Seconds (25.1-36.5) L 07/06/18 11:54 - Constitutional Appears: Chronically Ill - Head Exam Head Exam: NORMAL INSPECTION - ENT Exam Additional comments: NGT in place - Neck Exam Neck Exam: absent: Meningismus - Respiratory Exam Respiratory Exam: Decreased Breath Sounds - Cardiovascular Exam Cardiovascular Exam: +S1, +S2 - GI/Abdominal Exam GI & Abdominal Exam: Soft. absent: Tenderness Assessment and Plan - Assessment and Plan (Free Text) Plan: Assessment S/P Severe sepsis with hypoxic respiratory failure and S/P ventilator-dependent respiratory failure and acute on chronic renal failure as well as thrombocytopenia due to severe right sided community-acquired pneumonia S/P viral infection with Influenza A in this patient with CVA significant and active smoking history COPD HTN DM peripheral vascular disease history of right elbow septic arthritis history of right upper extremity cellulitis Plan completed course of Merrem and Doxycycline (6 days) continue to monitor off antibiotics since he is at risk for nosocomial infections overall prognosis is poor
[2018-07-17] MEDS ORDERED: Potassium Chloride 40 mEq/30 ml LIQ UD PO STA (18:33)
--- NOTE | 2018-07-17 18:45 | PN ---
DATE: 07/17/2018 SUBJECTIVE: The patient is seen lying in bed in the ICU. His eyes are open. He seems to respond to stimulus by opening his eyes wider. But really not following any commands. Seems to have flaccid quadriparesis. PHYSICAL EXAMINATION: GENERAL: Elderly male lying in bed in the ICU. VITAL SIGNS: Blood pressure 117/57, heart rate 82, respiratory rate 26, temperature 99.9, T-max is 100.2. HEENT: Normocephalic, atraumatic, positive pallor. NECK: Supple, no JVD. LUNGS: Bilateral equal air entry, bilateral equal expansion, rales, left base? CARDIAC: S1, S2, regular and rhythm, no murmur, no rub. ABDOMEN: Obese, distended, soft, nontender, bowel sounds present. EXTREMITIES: No lower extremity edema, chronic stasis changes, superficial ulcerations. INTAKE AND OUTPUT: 3820/2300. LABORATORY DATA: WBC 16, hemoglobin 9.1, hematocrit 31, platelets 30. Sodium 155, potassium 3, chloride 126, CO2 of 23, BUN 95, creatinine 2.1, glucose 317. Calcium 8.5. Sputum culture yeast. Chest x-ray, vascular congestion in the left lower lobe, left lower lobe infiltrate. CURRENT MEDICATIONS: Cardizem 60 t.i.d., D5W at 100, DuoNeb, heparin, insulin, digoxin 0.125 IV push daily, Levemir 30 units, Protonix, Tylenol, vitamin A, Solu-Medrol 500 mg. ASSESSMENT/PLAN: 1. Acute kidney injury superimposed on chronic kidney disease stage III, acute tubular necrosis in the setting of severe sepsis, respiratory failure. 2. Now with nonoliguric acute kidney injury, renal parameters improving. 3. Severe hypernatremia, dehydration. 4. Altered mental status,? Critical illness neuropathy. 5. Anemia, multifactorial. 6. Severe thrombocytopenia, history of idiopathic thrombocytopenic purpura. 7. Community-acquired pneumonia, influenza A. 8. Right elbow septic arthritis. 9. Right upper extremity cellulitis. PLAN: 1. Completed 6-day course of Merrem and doxycycline. 2. Now off antibiotics. 3. No indication for dialysis right now. 4. Hypernatremia, improving with free water and D5W infusion. 5. Heart rate controlled on Cardizem. 6. Continue digoxin. 7. Hematology followup for thrombocytopenia. 8. Neurology followup 9. Cardiology followup for AFib and non-ST elevation CT. 10. Case discussed with ICU staff at length. 11. Case discussed with Dr. Mitchell. More than 35 minutes was spent in the care of this critically ill patient. Bobbi Sullivan MD
[2018-07-17] MEDS: Potassium Chloride 10 mEq 100 ML IVPB SCH ×2 (18:54→20:57)
--- NOTE | 2018-07-17 19:28 | PN ---
DATE: 07/17/2018 NEUROLOGY FOLLOWUP CHIEF COMPLAINT: Followup for altered mental status and flaccid weakness. SUBJECTIVE: The patient is seen and examined at the bedside, more alert, following simple commands, which is nodding the head yes or no and grunting because of localized noxious stimulus. He has flaccid upper and bilateral lower extremity weakness, more in the upper extremities, most likely related to critical illness, polyneuropathy and myopathy. There is no change in management if we do a muscle biopsy, though it will give us some definite diagnosis though, but it is unchanged in the management of IVIGs and and as was steroids. Extensive aggressive physical therapy in long-term care facility is more of the treatment for this. We need to also make sure his blood sugars are kept between 140 to 180 and his sodium is brought down, since he has continued to be hypernatremic. His blood sugars are ranging from 280 to 317, which is very uncontrolled with hyperglycemic salvations, and he is still to have severe thrombocytopenia with a platelet count of 25 today. PAST MEDICAL HISTORY: History of COPD; hypertension; type 2 diabetes mellitus, [id number]; chronic kidney disease stage III; history of severe thrombocytopenia. REVIEW OF SYSTEMS: Fourteen-point review of systems is difficult to obtain at this time due to the patient's mental status. ALLERGIES: ALLERGIC TO NUT AND FRUIT. MEDICATIONS: Reviewed by nurse's reconciliation sheet. FAMILY HISTORY: Noncontributory. PHYSICAL EXAMINATION: VITAL SIGNS: Temperature 99.9, pulse rate of 85, blood pressure 117/66, oxygen saturation 100% on mechanical ventilation. GENERAL: Lethargic, but opens eyes to voice and withdraws to noxious stimulus. HEENT: Atraumatic, normocephalic. PERRLA. Extraocular muscles are intact. NECK: Supple. No JVD. No adenopathy noted. LUNGS: Clear to auscultation. No adventitious sounds. HEART: S1 and S2. Normal rate and rhythm. No murmurs, rubs, or gallops. ABDOMEN: Soft, nontender, nondistended. Bowel sounds are present. EXTREMITIES: 2+ edema in the lower extremities. Peripheral pulses are 2+ felt bilaterally. NEUROLOGIC: The patient is lethargic, follows simple commands, opens eyes to voice, and grimaces to pain and nods just yes or no. Speech is difficult to assess at this time, has a NG tube in place. Cranial nerves II through XII intact. Motor exam: Minimal spontaneous movement of upper and lower extremities, mild paralysis over the upper extremities compared to lower extremities. SENSORY: Withdraws to localized noxious stimulus, but does not localize. Toes are downgoing bilaterally. DTRs are 1+ throughout and absent at knees and ankles. Coordination and gait deferred for now. IMPRESSION: This is a 62-year-old man with history of [id number] diabetes mellitus, chronic kidney disease stage III, hypertension, chronic obstructive pulmonary disease, history of severe thrombocytopenia, who was initially admitted in the intensive care unit for acute hypoxic respiratory failure secondary to severe sepsis and secondary to community-acquired pneumonia with underlying influenza type A flu with multiorgan failure in terms of acute kidney injury, in terms of acute tubular necrosis, severe sepsis, pneumonia, respiratory failure, resulting in clinical illness, polyneuropathy and critical illness myopathy. RECOMMENDATIONS: At this time, we recommend that there is no clear benefit doing muscle biopsy, because it does not change the management. The management at this time will be: 1. Aggressive physical therapy at bedside, transfer to long-term care facility. 2. Could consider another round of IVIG, though it is anecdotal and no real benefit for critical illness, myopathy or polyneuropathy, but will help thrombocytopenia. We will defer to Hematology. 3. Monitor electrolytes and correct accordingly. Avoid hyperglycemia accelerations and avoid hypernatremic episodes. 4. Monitor hematocrit, hemoglobin and platelet count. 5. Avoid nephrotoxic or sedative agents and continue on current present ICU management. Thank you for this followup. Edis Mcdaniels MD
--- NOTE | 2018-07-17 21:16 | PN ---
DATE: 07/17/2018 This is [facility] [place] [facility] visit in intensive care unit. For Dr. Estevez. SUBJECTIVE: The patient is a 62-year-old male, seen lying awake in the intensive care unit with NG tube noted. The patient now extubated with the patient lethargic and responding with a head nod to questions and shaking his head no when I asked does he have pain. At present, the patient is now being treated for bilateral pneumonia, status post respiratory failure with extubation recently with severe sepsis along with acute/chronic renal failure, severe thrombocytopenia, and underlying diagnosis. At present, he appears in no acute distress. OBJECTIVE/PHYSICAL EXAMINATION: VITAL SIGNS: Temperature 99.9, pulse 82, respirations 26, blood pressure 117/57, pulse ox of 100%. HEENT: Opens his eyes to command. Tongue is dry. Mouth is open. NG tube noted in situ. NECK: Supple. HEART: Regular rate with 106, systolic ejection murmur. LUNGS: Decreased breath sounds at the bases. Scattered rhonchi. ABDOMEN: Distended, soft. EXTREMITIES: Ecchymotic changes to the lower extremities bilaterally and on the arms with +1 edema of his arms bilaterally. SKIN: Otherwise warm and dry. NEUROLOGIC: The patient is arousable, opens eyes and nods to sets of commands. LABORATORY DATA: The patient's labs were done. White blood cell count is 16.1, hemoglobin of 9.1, hematocrit of 31.2, platelet count of 30,000 with a manual of 25,000; however, it should be noted that this specimen was done 10 minutes later with a previous value of platelet count of 49,000 with a manual count of 52,000 the day prior. These values were repeated, and there is no active bleeding at present. His chem metabolic panel showed a sodium of 155 with a chloride of 126, potassium of 3, BUN of 95, creatinine of 2.1 with a nonfasting glucose of 317. Urinalysis done three days prior showed moderate amount of blood. The patient had a chest x-ray done earlier today, was read as vascular congestion with left lower lobe perihilar infiltrate. ASSESSMENT: Assessment for this patient is that of severe sepsis with hypoxic respiratory failure, status post extubation, acute/chronic renal failure, severe thrombocytopenia with no active bleeding, pneumonia, influenza A positivity, history of acute myocardial infarction non-ST elevated, dilated cardiomyopathy, hypertension, hepatosplenomegaly. PLAN: Plan for this patient is to monitor clinically. We will ask for a manual platelet counts to be done with no transfusion of platelets unless the platelet count is below 20,000 with or active bleeding. As per Dr. Estevez's recommendations, we will monitor clinically with labs. This is a complex patient with comprehensive medically necessary and appropriate visit carried out in excess of 40 minutes with discussion held with the patient's consultants and nursing staff. James Martinez MD
[2018-07-17] MEDS: Insulin Detemir 100 units/ml Vial (Levemir) SC SCH (23:34)
[2018-07-18] MEDS: Albuterol-Ipratrop 3 mg / 0.5 (3 ml) UD IH SCH ×4 (02:44→19:45)
[2018-07-18 05:25] LABS: GRAN # 12.35 (1.4-6.5); GRAN % 96.6 % (50.0-68.0); HEMOGLOBIN 8.7 g/dL (14.0-18.0); LYMPH # 0.4 (1.2-3.4); LYMPH % 2.7 % (22.0-35.0); MEAN CELL VOLUME 88.7 fl (80.0-105.0); MEAN CORPUSCULAR HEMOGLOBIN 26.7 pg (25.0-35.0); MEAN CORPUSCULAR HGB CONC 30.1 g/dl (31.0-37.0); MONO # 0.1 (0.1-0.6); MONO % 0.7 % (1.0-6.0); RBC 3.26 10^6/uL (3.5-6.1); RED CELL DISTRIBUTION WIDTH 16.7 % (11.5-14.5); WHITE BLOOD COUNT 12.8 10^3/uL (4.5-11.0)
[2018-07-18 05:38] LABS: ALB/GLOB RATIO 0.8 (1.1-1.8); ALBUMIN 2.8 g/dL (3.0-4.8); CALCIUM 8.7 mg/dL (8.4-10.5)
[2018-07-18 05:44] LABS: PLATELET COUNT 18 10^3/uL (120.0-450.0)
[2018-07-18 06:30] LABS: LYMPHOCYTE 3 % (22.0-35.0); NEUTROPHIL 95 % (50.0-70.0)
[2018-07-18 06:31] LABS: MONOCYTE 2 % (1.0-6.0); PLATELET ESTIMATE LOW (NORMAL)
[2018-07-18] MEDS: Insulin Reg-HIGH-Coverage SC SCH (06:32)
[2018-07-18 07:15] LABS: PLATELET COUNT MANUAL 30 K/mm3 (120-450)
--- NOTE | 2018-07-18 07:27 | CP.CCUPN ---
<Ismael Turner - Last Filed: 07/18/18 11:48> CCU Subjective - Physician Review Subjective (Free Text): Ismael Turner PGY-1 Progress Note for ICU Patient seen and evaluated at bedside. Afebrile overnight, respirating on nasal cannula 3 L. Responsive and following commands to blink. Extremities remain flaccid at this time. Opens eyes spontaneously and is able to track. Cardizem drip discontinued. On D5H20 currently. Further ROS was unobtainable at this time due to clinical condition. CCU Objective - Vital Signs / Intake & Output Vital Signs (Last 4 hours): Vital Signs Pulse 07/18/18 06:00 75 Intake and Output (Last 8hrs): Intake & Output 07/17/18 07/18/18 07/18/18 22:59 06:59 14:59 Intake Total 1500 7000 Output Total 1700 1250 Balance -200 5750 Weight 84.822 kg Intake: IV 1340 1400 Left Wrist 100 cardizem 40 d5w 1200 1400 Tube Feeding 160 4800 Other 800 Output: Urine 1700 1250 Urethral (Ash) 1700 1250 Stool 0 Emesis 0 Other: # Bowel Movements 0 - Physical Exam Head: Positive for: Atraumatic, Normocephalic Pupils: Positive for: PERRL Extroacular Muscles: Positive for: EOMI Conjunctiva: Positive for: Normal Mouth: Positive for: Dry, Drooling Nose (External): Positive for: Other (Dobhoff in place in R nares) Respiratory/Chest: Positive for: Clear to Auscultation, Decreased Breath Sounds. Negative for: Respiratory Distress, Wheezes, Tachypneic Cardiovascular: Positive for: Normal S1, S2, Irregular Rhythm. Negative for: Murmurs Abdomen: Negative for: Tenderness, Peritoneal Signs, Guarding Back: Positive for: Normal Inspection Upper Extremity: Positive for: Normal Inspection, Other (Occasional spontaneous motor movement at this time in upper extremities). Negative for: Cyanosis, Edema Lower Extremity: Positive for: Edema (1+ pitting edema noted to right lower extremity; chronic diabetic ulcer noted to anterior anderson of left lower extremity ), Other (flaccid lower extremities) Neurological: Negative for: GCS=15, CN II-XII Intact, Speech Normal Skin: Positive for: Warm, Dry, Normal Color, Other (Ecchymotic in R antecubital region, stable). Negative for: Rashes Psychiatric: Positive for: Alert (responds to verbal and painful stimuli). Negative for: Oriented x 3 (unable to verbally respond), Normal Insight, Normal Concentration - Medications Active Medications: Active Medications Generic Name Dose Route Start Last Admin Trade Name Freq PRN Reason Stop Dose Admin Acetaminophen 650 mg 07/08/18 18:18 07/14/18 12:29 Tylenol 650mg/20.3ml Solution Ud PO 650 mg Q6H PRN Administration Fever 101F Albuterol/Ipratropium 3 ml 07/03/18 14:00 07/18/18 07:21 Duoneb 3 Mg/0.5 Mg (3 Ml) Ud IH 3 ml [id number] SEEMA Administration Albuterol/Ipratropium 3 ml 07/03/18 11:04 07/11/18 23:55 Duoneb 3 Mg/0.5 Mg (3 Ml) Ud IH 3 ml Q2H PRN Administration Shortness of Breath Digoxin 0.125 mg 07/13/18 14:00 07/17/18 14:16 Lanoxin IVP 0.125 mg 1400 SEEMA Administration Diltiazem HCl 60 mg 07/17/18 14:00 07/17/18 17:49 Cardizem PO 60 mg TID SEEMA Administration Heparin Sodium (Porcine) 3,000 units 07/11/18 10:09 07/14/18 15:43 Heparin IVP 3,000 units ONCE PRN Administration Other Dextrose 1,000 mls @ 100 mls/hr 07/17/18 05:34 07/17/18 20:56 Dextrose 5% In Water 1000 Ml IV 100 mls/hr .Q10H SEEMA Administration Insulin Detemir 30 unit 07/17/18 10:39 07/17/18 23:34 Levemir SC 30 units HS SEEMA Administration Insulin Human Regular 0 units 07/12/18 11:15 07/18/18 06:32 Humulin R High SC 15 units Q6H SEEMA Administration Protocol Pantoprazole Sodium 40 mg 07/03/18 14:15 07/17/18 09:58 Protonix Inj IVP 40 mg DAILY SEEMA Administration Vitamin A 1 applic 07/13/18 16:53 Vitamin A&D TP Q8 PRN Dry mouth - Patient Studies Lab Studies: Microbiology Studies 07/13/18 10:20 Blood Culture - Preliminary Blood-Venous NO GROWTH AFTER 4 DAYS 07/13/18 10:00 Blood Culture - Preliminary Blood-Venous NO GROWTH AFTER 4 DAYS Lab Studies 07/18/18 07/18/18 07/17/18 Range/Units 05:00 05:00 21:48 WBC 12.8 H D (4.5-11.0) 10^3/uL RBC 3.26 L (3.5-6.1) 10^6/uL Hgb 8.7 L (14.0-18.0) g/dL Hct 28.9 L (42.0-52.0) % MCV 88.7 (80.0-105.0) fl MCH 26.7 (25.0-35.0) pg MCHC 30.1 L (31.0-37.0) g/dl RDW 16.7 H (11.5-14.5) % Plt Count 18 L* (120.0-450.0) 10^3/uL Manual Plt Count 30 L* (120-450) K/mm3 Gran % 96.6 H (50.0-68.0) % Lymph % (Auto) 2.7 L (22.0-35.0) % [place] % (Auto) 0.7 L (1.0-6.0) % Eos % (Auto) 0.0 L (1.5-5.0) % Baso % (Auto) 0.0 (0.0-3.0) % Gran # 12.35 H (1.4-6.5) Lymph # (Auto) 0.4 L (1.2-3.4) [place] # (Auto) 0.1 (0.1-0.6) Eos # (Auto) 0.0 (0.0-0.7) Baso # (Auto) 0.00 (0.0-2.0) K/mm3 Neutrophils % (Manual) 95 H (50.0-70.0) % Lymphocytes % (Manual) 3 L (22.0-35.0) % Monocytes % (Manual) 2 (1.0-6.0) % Platelet Evaluation Low (NORMAL) Sodium 152 H (132-148) mmol/L Potassium 4.5 (3.6-5.0) mmol/L Chloride 125 H (98-107) mmol/L Carbon Dioxide 23 (21-33) mmol/L Anion Gap 8 L (10-20) BUN 95 H (7-21) mg/dL Creatinine 2.1 H (0.8-1.5) mg/dl Est GFR ( Amer) 39 Est GFR (Non-Af Amer) 32 POC Glucose (mg/dL) 432 H* (65-110) mg/dL Random Glucose 450 H* D (70-110) mg/dL Calcium 8.7 (8.4-10.5) mg/dL Total Bilirubin 0.8 (0.2-1.3) mg/dL AST 33 (17-59) U/L ALT 60 H (7-56) U/L Alkaline Phosphatase 79 (38-126) U/L Total Protein 6.3 (5.8-8.3) g/dL Albumin 2.8 L (3.0-4.8) g/dL Globulin 3.5 gm/dL Albumin/Globulin Ratio 0.8 L (1.1-1.8) 07/17/18 07/17/18 07/17/18 Range/Units 17:42 11:55 11:00 WBC (4.5-11.0) 10^3/uL RBC (3.5-6.1) 10^6/uL Hgb (14.0-18.0) g/dL Hct (42.0-52.0) % MCV (80.0-105.0) fl MCH (25.0-35.0) pg MCHC (31.0-37.0) g/dl RDW (11.5-14.5) % Plt Count (120.0-450.0) 10^3/uL Manual Plt Count (120-450) K/mm3 Gran % (50.0-68.0) % Lymph % (Auto) (22.0-35.0) % [place] % (Auto) (1.0-6.0) % Eos % (Auto) (1.5-5.0) % Baso % (Auto) (0.0-3.0) % Gran # (1.4-6.5) Lymph # (Auto) (1.2-3.4) [place] # (Auto) (0.1-0.6) Eos # (Auto) (0.0-0.7) Baso # (Auto) (0.0-2.0) K/mm3 Neutrophils % (Manual) (50.0-70.0) % Lymphocytes % (Manual) (22.0-35.0) % Monocytes % (Manual) (1.0-6.0) % Platelet Evaluation (NORMAL) Sodium 155 H (132-148) mmol/L Potassium 3.0 L (3.6-5.0) mmol/L Chloride 126 H (98-107) mmol/L Carbon Dioxide 23 (21-33) mmol/L Anion Gap 9 L (10-20) BUN 95 H (7-21) mg/dL Creatinine 2.1 H (0.8-1.5) mg/dl Est GFR ( Amer) 39 Est GFR (Non-Af Amer) 32 POC Glucose (mg/dL) 377 H 330 H (65-110) mg/dL Random Glucose 317 H* (70-110) mg/dL Calcium 8.5 (8.4-10.5) mg/dL Total Bilirubin (0.2-1.3) mg/dL AST (17-59) U/L ALT (7-56) U/L Alkaline Phosphatase (38-126) U/L Total Protein (5.8-8.3) g/dL Albumin (3.0-4.8) g/dL Globulin gm/dL Albumin/Globulin Ratio (1.1-1.8) 07/17/18 07/17/18 07/17/18 Range/Units 10:10 07:50 05:30 WBC (4.5-11.0) 10^3/uL RBC (3.5-6.1) 10^6/uL Hgb (14.0-18.0) g/dL Hct (42.0-52.0) % MCV (80.0-105.0) fl MCH (25.0-35.0) pg MCHC (31.0-37.0) g/dl RDW (11.5-14.5) % Plt Count (120.0-450.0) 10^3/uL Manual Plt Count 25 L* (120-450) K/mm3 Gran % (50.0-68.0) % Lymph % (Auto) (22.0-35.0) % [place] % (Auto) (1.0-6.0) % Eos % (Auto) (1.5-5.0) % Baso % (Auto) (0.0-3.0) % Gran # (1.4-6.5) Lymph # (Auto) (1.2-3.4) [place] # (Auto) (0.1-0.6) Eos # (Auto) (0.0-0.7) Baso # (Auto) (0.0-2.0) K/mm3 Neutrophils % (Manual) (50.0-70.0) % Lymphocytes % (Manual) (22.0-35.0) % Monocytes % (Manual) (1.0-6.0) % Platelet Evaluation (NORMAL) Sodium 155 H (132-148) mmol/L Potassium 4.2 (3.6-5.0) mmol/L Chloride 126 H (98-107) mmol/L Carbon Dioxide 25 (21-33) mmol/L Anion Gap 7 L (10-20) BUN 100 H (7-21) mg/dL Creatinine 2.1 H (0.8-1.5) mg/dl Est GFR ( Amer) 39 Est GFR (Non-Af Amer) 32 POC Glucose (mg/dL) 312 H (65-110) mg/dL Random Glucose 299 H (70-110) mg/dL Calcium 8.5 (8.4-10.5) mg/dL Total Bilirubin 1.1 (0.2-1.3) mg/dL AST 36 (17-59) U/L ALT 63 H (7-56) U/L Alkaline Phosphatase 84 (38-126) U/L Total Protein 6.5 (5.8-8.3) g/dL Albumin 2.9 L (3.0-4.8) g/dL Globulin 3.5 gm/dL Albumin/Globulin Ratio 0.8 L (1.1-1.8) 07/17/18 Range/Units 05:30 WBC 16.1 H (4.5-11.0) 10^3/uL RBC 3.48 L (3.5-6.1) 10^6/uL Hgb 9.1 L (14.0-18.0) g/dL Hct 31.2 L (42.0-52.0) % MCV 89.7 (80.0-105.0) fl MCH 26.1 (25.0-35.0) pg MCHC 29.2 L (31.0-37.0) g/dl RDW 17.2 H (11.5-14.5) % Plt Count 30 L* (120.0-450.0) 10^3/uL Manual Plt Count (120-450) K/mm3 Gran % 94.8 H (50.0-68.0) % Lymph % (Auto) 3.8 L (22.0-35.0) % [place] % (Auto) 1.4 (1.0-6.0) % Eos % (Auto) 0.0 L (1.5-5.0) % Baso % (Auto) 0.0 (0.0-3.0) % Gran # 15.23 H (1.4-6.5) Lymph # (Auto) 0.6 L (1.2-3.4) [place] # (Auto) 0.2 (0.1-0.6) Eos # (Auto) 0.0 (0.0-0.7) Baso # (Auto) 0.00 (0.0-2.0) K/mm3 Neutrophils % (Manual) (50.0-70.0) % Lymphocytes % (Manual) (22.0-35.0) % Monocytes % (Manual) (1.0-6.0) % Platelet Evaluation (NORMAL) Sodium (132-148) mmol/L Potassium (3.6-5.0) mmol/L Chloride (98-107) mmol/L Carbon Dioxide (21-33) mmol/L Anion Gap (10-20) BUN (7-21) mg/dL Creatinine (0.8-1.5) mg/dl Est GFR ( Amer) Est GFR (Non-Af Amer) POC Glucose (mg/dL) (65-110) mg/dL Random Glucose (70-110) mg/dL Calcium (8.4-10.5) mg/dL Total Bilirubin (0.2-1.3) mg/dL AST (17-59) U/L ALT (7-56) U/L Alkaline Phosphatase (38-126) U/L Total Protein (5.8-8.3) g/dL Albumin (3.0-4.8) g/dL Globulin gm/dL Albumin/Globulin Ratio (1.1-1.8) Laboratory Results - last 24 hr 07/17/18 07/17/18 07/17/18 05:30 05:30 07:50 WBC 16.1 H RBC 3.48 L Hgb 9.1 L Hct 31.2 L MCV 89.7 MCH 26.1 MCHC 29.2 L RDW 17.2 H Plt Count 30 L* Manual Plt Count Gran % 94.8 H Lymph % (Auto) 3.8 L [place] % (Auto) 1.4 Eos % (Auto) 0.0 L Baso % (Auto) 0.0 Gran # 15.23 H Lymph # (Auto) 0.6 L [place] # (Auto) 0.2 Eos # (Auto) 0.0 Baso # (Auto) 0.00 Neutrophils % (Manual) Lymphocytes % (Manual) Monocytes % (Manual) Platelet Evaluation Sodium 155 H Potassium 4.2 Chloride 126 H Carbon Dioxide 25 Anion Gap 7 L BUN 100 H Creatinine 2.1 H Est GFR ( Amer) 39 Est GFR (Non-Af Amer) 32 POC Glucose (mg/dL) 312 H Random Glucose 299 H Calcium 8.5 Total Bilirubin 1.1 AST 36 ALT 63 H Alkaline Phosphatase 84 Total Protein 6.5 Albumin 2.9 L Globulin 3.5 Albumin/Globulin Ratio 0.8 L 07/17/18 07/17/18 07/17/18 10:10 11:00 11:55 WBC RBC Hgb Hct MCV MCH MCHC RDW Plt Count Manual Plt Count 25 L* Gran % Lymph % (Auto) [place] % (Auto) Eos % (Auto) Baso % (Auto) Gran # Lymph # (Auto) [place] # (Auto) Eos # (Auto) Baso # (Auto) Neutrophils % (Manual) Lymphocytes % (Manual) Monocytes % (Manual) Platelet Evaluation Sodium 155 H Potassium 3.0 L Chloride 126 H Carbon Dioxide 23 Anion Gap 9 L BUN 95 H Creatinine 2.1 H Est GFR ( Amer) 39 Est GFR (Non-Af Amer) 32 POC Glucose (mg/dL) 330 H Random Glucose 317 H* Calcium 8.5 Total Bilirubin AST ALT Alkaline Phosphatase Total Protein Albumin Globulin Albumin/Globulin Ratio 07/17/18 07/17/18 07/18/18 17:42 21:48 05:00 WBC 12.8 H D RBC 3.26 L Hgb 8.7 L Hct 28.9 L MCV 88.7 MCH 26.7 MCHC 30.1 L RDW 16.7 H Plt Count 18 L* Manual Plt Count 30 L* Gran % 96.6 H Lymph % (Auto) 2.7 L [place] % (Auto) 0.7 L Eos % (Auto) 0.0 L Baso % (Auto) 0.0 Gran # 12.35 H Lymph # (Auto) 0.4 L [place] # (Auto) 0.1 Eos # (Auto) 0.0 Baso # (Auto) 0.00 Neutrophils % (Manual) 95 H Lymphocytes % (Manual) 3 L Monocytes % (Manual) 2 Platelet Evaluation Low Sodium Potassium Chloride Carbon Dioxide Anion Gap BUN Creatinine Est GFR ( Amer) Est GFR (Non-Af Amer) POC Glucose (mg/dL) 377 H 432 H* Random Glucose Calcium Total Bilirubin AST ALT Alkaline Phosphatase Total Protein Albumin Globulin Albumin/Globulin Ratio 07/18/18 05:00 WBC RBC Hgb Hct MCV MCH MCHC RDW Plt Count Manual Plt Count Gran % Lymph % (Auto) [place] % (Auto) Eos % (Auto) Baso % (Auto) Gran # Lymph # (Auto) [place] # (Auto) Eos # (Auto) Baso # (Auto) Neutrophils % (Manual) Lymphocytes % (Manual) Monocytes % (Manual) Platelet Evaluation Sodium 152 H Potassium 4.5 Chloride 125 H Carbon Dioxide 23 Anion Gap 8 L BUN 95 H Creatinine 2.1 H Est GFR ( Amer) 39 Est GFR (Non-Af Amer) 32 POC Glucose (mg/dL) Random Glucose 450 H* D Calcium 8.7 Total Bilirubin 0.8 AST 33 ALT 60 H Alkaline Phosphatase 79 Total Protein 6.3 Albumin 2.8 L Globulin 3.5 Albumin/Globulin Ratio 0.8 L Radiology Impressions: Radiology Impressions Chest X-Ray 07/17/18 06:00 IMPRESSION: Vascular congestion with left lower lobe perihilar infiltrate Fingerstick Blood Sugar Results: 450 Review of Systems - Review of Systems Review of Systems: 12 point ROS unable to be completed at this time due to clinical condition Critical Care Progress Note - Nutrition Nutrition: Nutrition Category Date Time Status NPO Diet [DIET] Diets 07/06/18 Breakfast Ordered Assessment/Plan - Assessment and Plan (Free Text) Assessment: 62 y/o male with PMHx of COPD, active smoker 1pk per day, HTN, DM, PVD, presents with ER with 2 day history of fever, chills, associated with cough that is non- productive. Yesterday, patient also developed SOB. Pt was found to have increased work of breathing, RR 35-40, subsequently intubated. Placed on low tidal vol. ventilation. Patient was initially started on heparin drip given elevated troponin, and markedly diminished EF. Hep drip currently held secondary to thrombocytopenia. Initially paralyzed on Nimbex after overbreathing ventilator. Extubated, ARDS resolved. No fevers overnight. Neuro: - 07/13/18 MRI brain without contrast negative for acute abnormalities - Results of EEG 07/10/[address] Roland: moderate nonspecific diffuse disturbance of cortical activity, nonspecific diffuse fernandez matter dysfunction, no seizures, not in status epilepticus - Neuro consult - Dr. Harvinder Mcdaniels - recs appreciated. Poor motor function likely 2/2 critical illness polyneuropathy. Appreciate further recs. - Critical Illness Polyneuropathy - appreciate aggressive PT - 07/10/18 CT head without contrast negative - AAOx0, continue on sedation. - Pt. responds to painful stimuli - Continuous and frequent PT daily- recs appreciated - Continue to monitor Pulm CAP and Flu A + : resolved 07/17/18 CXR shows Vascular congestion with left lower lobe perihilar infiltrate 07/18/18 CXR shows improved vascular congestion - Duonebs seema q6 and PRN q2 - Urine Lg and Strep negative - Procal 4.85, repeat 5.96, 1.37 - ID eval: Dr. Fernandes - recs appreciated - Pulm consulted - Dr. Burr, recs appreciated - Resp therapy Cardio HFrEF - BNP 04173 - 07/03/18 echo report shows EF 14.2%, mildly dilated LV, systolic function severely impaired, akinetic septum, moderate TR and pulm HTN NSTEMI - Trop 0.48, 0.67, 0.67 - Cardiology consulted - Dr. Saxena. Cardiac cath on hold due to persistent thrombocytopenia. Hold Lasix per cardio. Further recs appreciated. - Continue Cardizem 60 mg PO TID and Dig for new onset A fib. - Dig level 07/13/18 0.8 - Hold IVF d/t poor EF. - Hold Heparin drip - 07/07/18 EKG showed sinus tach - 07/08/18 EKG shows NSR, no ST or T wave changes, LVH - 07/09/18 EKG shows NSR @ 82 bpm, LVH - 07/10/18 EKG shows NSR @ 82 bpm, LVH, no peaked T waves Chronic Thrombocytopenia, ITP - Has received frequent intermittent transfusions as outpatient per medical record - PLT 18, manual count 30 - HIT Antibody negative. Will hold off on DVT chemoprophylaxis in light of thrombocytpenia, ok to start if persistently above 50 per Hem/Onc - Hem consult placed- Dr. Estevez. 4 unit PLT transfused. IV gammaglobulin 5 day course completed. Plan to run 1000 units of Heparin with HD. Further recs appreciated per Dr. Estevez. - Negative IVONE and ANCA studies - 07/08/18 Peripheral smear shows no atypical cells or immature forms. Mild anisopoikilocytosis. No schistocytes. No PL clumping although markedly reduced. - ESR 45 - Split products >10 but <40 Stable Normocytic Anemia - Hgb 8.7 this AM, no obvious sign of bleed Endo Uncontrolled DM - Hgb a1c 8.2, accuchecks ACHS - Increased daily Levemir to 30 units HS yesterday, persistent hyperglycemia likely elevated 2/2 steroids. Insulin drip initiated. Accuchecks q1h - Diabetic education GI - Dobhoff in place, on Nepro and free water flushes Lipid panel - TG elevated at 172 Shock liver resolved Hep panel negative - 07/03/18 RUQ U/S shows hepatosplenomegaly PTX for Ppx Nephro OG on HD - Tolerated first HD 07/07/18 s/p triple lumen catheter in L femoral vein. Replaced in R femoral vein after clot. Will consider removing catheter per Nephro rec - Improved BUN/Cr 95/2.1 - Strict Is and Os. Profuse urine production - Ash in place. - Not candidate for kidney biopsy at this time due to inability to tolerate procedure - Nephro consult - recs appreciated No HD planned for today- Dr. Sullivan - recs appreciated. Patient in prerenal hypercatabolic state 2/2 sepsis. NGT for free water recommended Improving Hypernatremia, Hyperchloremia - 153, 125 - Decrease water flushes at 400 q6 in light of low EF. Swallow eval recs 07/17/18: No response to oral stimulation or spoon/straw tip. Open mouth posture for breathing. - D5H20 discontinued in light of hyperglycemia - F/u nephro recs to consider repeating urine electrolytes MSK - Wound care consulted - Podiatry consulted- Dr. Richardson- recs appreciated- no acute intervention at this time. Has signed off. - OT/PT eval ID - No fever overnight, improved Leukocytosis 12.8. Continue to monitor off ABx. - Tylenol 650 q6 PRN for fever >101 - Ammonia level <9 - Rapid influenza A positive > Tamiflu course completed - ID eval: Dr. Dom Ramirez, Doxlaurie course completed. Monitor off ABx - 1 dose Vanc given 07/05/18 and 07/06/18. Dose given 07/13/18. - repeat blood cx neg after 4 days, repeat UA negative, repeat sputum cx growing moderate amount of yeast. - GI ppx: PTX - DVT ppx: Hep drip held in light of thrombocytopenia Dispo: Frequent PT appreciated for deconditioning Patient seen, case reviewed and plan approved by Dr. Sung. Ismael Turner, PGY-1 <Golden Sung - Last Filed: 07/18/18 12:24> CCU Objective - Vital Signs / Intake & Output Vital Signs (Last 4 hours): Vital Signs Pulse BP 07/18/18 09:58 88 138/66 Intake and Output (Last 8hrs): Intake & Output 07/17/18 07/18/18 07/18/18 22:59 06:59 14:59 Intake Total 1500 7000 Output Total 1700 1250 Balance -200 5750 Weight 187 lb Intake: IV 1340 1400 Left Wrist 100 cardizem 40 d5w 1200 1400 Tube Feeding 160 4800 Other 800 Output: Urine 1700 1250 Urethral (Ash) 1700 1250 Stool 0 Emesis 0 Other: # Bowel Movements 0 - Medications Active Medications: Active Medications Generic Name Dose Route Start Last Admin Trade Name Freq PRN Reason Stop Dose Admin Acetaminophen 650 mg 07/08/18 18:18 07/14/18 12:29 Tylenol 650mg/20.3ml Solution Ud PO 650 mg Q6H PRN Administration Fever 101F Albuterol/Ipratropium 3 ml 07/03/18 14:00 07/18/18 07:21 Duoneb 3 Mg/0.5 Mg (3 Ml) Ud IH 3 ml [id number] SEEMA Administration Albuterol/Ipratropium 3 ml 07/03/18 11:04 07/11/18 23:55 Duoneb 3 Mg/0.5 Mg (3 Ml) Ud IH 3 ml Q2H PRN Administration Shortness of Breath Digoxin 0.125 mg 07/13/18 14:00 07/17/18 14:16 Lanoxin IVP 0.125 mg 1400 SEEMA Administration Diltiazem HCl 60 mg 07/17/18 14:00 07/18/18 09:58 Cardizem PO 60 mg TID SEEMA Administration Heparin Sodium (Porcine) 3,000 units 07/11/18 10:09 07/14/18 15:43 Heparin IVP 3,000 units ONCE PRN Administration Other Insulin Human Regular 100 100 mls @ 0.1 mls/hr 07/18/18 12:12 units/ Sodium Chloride IV .Q24H PRN TITRATE PER MD ORDER Protocol 0.1 UNITS/HR Insulin Detemir 30 unit 07/17/18 10:39 07/17/18 23:34 Levemir SC 30 units HS SEEMA Administration Insulin Human Regular 0 units 07/12/18 11:15 07/18/18 06:32 Humulin R High SC 15 units Q6H SEEMA Administration Protocol Pantoprazole Sodium 40 mg 07/03/18 14:15 07/18/18 09:58 Protonix Inj IVP 40 mg DAILY SEEMA Administration Vitamin A 1 applic 07/13/18 16:53 Vitamin A&D TP Q8 PRN Dry mouth - Patient Studies Lab Studies: Microbiology Studies 07/13/18 10:00 Blood Culture - Final Blood-Venous NO GROWTH AFTER 5 DAYS 07/13/18 10:20 Blood Culture - Final Blood-Venous NO GROWTH AFTER 5 DAYS Gram Stain - Final TEST NOT PERFORMED Lab Studies 07/18/18 07/18/18 07/18/18 Range/Units 11:30 08:50 05:00 WBC (4.5-11.0) 10^3/uL RBC (3.5-6.1) 10^6/uL Hgb (14.0-18.0) g/dL Hct (42.0-52.0) % MCV (80.0-105.0) fl MCH (25.0-35.0) pg MCHC (31.0-37.0) g/dl RDW (11.5-14.5) % Plt Count (120.0-450.0) 10^3/uL Manual Plt Count (120-450) K/mm3 Gran % (50.0-68.0) % Lymph % (Auto) (22.0-35.0) % [place] % (Auto) (1.0-6.0) % Eos % (Auto) (1.5-5.0) % Baso % (Auto) (0.0-3.0) % Gran # (1.4-6.5) Lymph # (Auto) (1.2-3.4) [place] # (Auto) (0.1-0.6) Eos # (Auto) (0.0-0.7) Baso # (Auto) (0.0-2.0) K/mm3 Neutrophils % (Manual) (50.0-70.0) % Lymphocytes % (Manual) (22.0-35.0) % Monocytes % (Manual) (1.0-6.0) % Platelet Evaluation (NORMAL) pCO2 29 L (35-45) mm/Hg pO2 119.0 H (80-100) mm/Hg HCO3 20.6 L (21-28) mmol/L ABG pH 7.46 H (7.35-7.45) ABG Total CO2 21.5 L (22-28) mmol.L ABG O2 Saturation 99.4 H (95-98) % ABG O2 Content 12.1 L (15-23) ML/dl ABG Base Excess -2.6 L (-2.0-3.0) mmol/L ABG Hemoglobin 8.7 L (11.7-17.4) g/dL ABG Carboxyhemoglobin 1.9 H (0.5-1.5) % POC ABG HHb (Measured) 0.6 (0-5) % ABG Methemoglobin 0.9 (0.0-3.0) % ABG O2 Capacity 12.2 L (16-24) mL/dl Hgb O2 Saturation 96.6 (95.0-98.0) % FiO2 32.0 % Sodium 151 H 152 H (132-148) mmol/L Potassium 4.3 4.5 (3.6-5.0) mmol/L Chloride 124 H 125 H (98-107) mmol/L Carbon Dioxide 22 23 (21-33) mmol/L Anion Gap 11 8 L (10-20) BUN 98 H 95 H (7-21) mg/dL Creatinine 2.1 H 2.1 H (0.8-1.5) mg/dl Est GFR ( Amer) 39 39 Est GFR (Non-Af Amer) 32 32 POC Glucose (mg/dL) (65-110) mg/dL Random Glucose 404 H* 450 H* D (70-110) mg/dL Calcium 8.7 8.7 (8.4-10.5) mg/dL Total Bilirubin 0.8 (0.2-1.3) mg/dL AST 33 (17-59) U/L ALT 60 H (7-56) U/L Alkaline Phosphatase 79 (38-126) U/L Total Protein 6.3 (5.8-8.3) g/dL Albumin 2.8 L (3.0-4.8) g/dL Globulin 3.5 gm/dL Albumin/Globulin Ratio 0.8 L (1.1-1.8) 07/18/18 07/17/18 07/17/18 Range/Units 05:00 21:48 17:42 WBC 12.8 H D (4.5-11.0) 10^3/uL RBC 3.26 L (3.5-6.1) 10^6/uL Hgb 8.7 L (14.0-18.0) g/dL Hct 28.9 L (42.0-52.0) % MCV 88.7 (80.0-105.0) fl MCH 26.7 (25.0-35.0) pg MCHC 30.1 L (31.0-37.0) g/dl RDW 16.7 H (11.5-14.5) % Plt Count 18 L* (120.0-450.0) 10^3/uL Manual Plt Count 30 L* (120-450) K/mm3 Gran % 96.6 H (50.0-68.0) % Lymph % (Auto) 2.7 L (22.0-35.0) % [place] % (Auto) 0.7 L (1.0-6.0) % Eos % (Auto) 0.0 L (1.5-5.0) % Baso % (Auto) 0.0 (0.0-3.0) % Gran # 12.35 H (1.4-6.5) Lymph # (Auto) 0.4 L (1.2-3.4) [place] # (Auto) 0.1 (0.1-0.6) Eos # (Auto) 0.0 (0.0-0.7) Baso # (Auto) 0.00 (0.0-2.0) K/mm3 Neutrophils % (Manual) 95 H (50.0-70.0) % Lymphocytes % (Manual) 3 L (22.0-35.0) % Monocytes % (Manual) 2 (1.0-6.0) % Platelet Evaluation Low (NORMAL) pCO2 (35-45) mm/Hg pO2 (80-100) mm/Hg HCO3 (21-28) mmol/L ABG pH (7.35-7.45) ABG Total CO2 (22-28) mmol.L ABG O2 Saturation (95-98) % ABG O2 Content (15-23) ML/dl ABG Base Excess (-2.0-3.0) mmol/L ABG Hemoglobin (11.7-17.4) g/dL ABG Carboxyhemoglobin (0.5-1.5) % POC ABG HHb (Measured) (0-5) % ABG Methemoglobin (0.0-3.0) % ABG O2 Capacity (16-24) mL/dl Hgb O2 Saturation (95.0-98.0) % FiO2 % Sodium (132-148) mmol/L Potassium (3.6-5.0) mmol/L Chloride (98-107) mmol/L Carbon Dioxide (21-33) mmol/L Anion Gap (10-20) BUN (7-21) mg/dL Creatinine (0.8-1.5) mg/dl Est GFR ( Amer) Est GFR (Non-Af Amer) POC Glucose (mg/dL) 432 H* 377 H (65-110) mg/dL Random Glucose (70-110) mg/dL Calcium (8.4-10.5) mg/dL Total Bilirubin (0.2-1.3) mg/dL AST (17-59) U/L ALT (7-56) U/L Alkaline Phosphatase (38-126) U/L Total Protein (5.8-8.3) g/dL Albumin (3.0-4.8) g/dL Globulin gm/dL Albumin/Globulin Ratio (1.1-1.8) 07/17/18 07/17/18 Range/Units 11:55 11:00 WBC (4.5-11.0) 10^3/uL RBC (3.5-6.1) 10^6/uL Hgb (14.0-18.0) g/dL Hct (42.0-52.0) % MCV (80.0-105.0) fl MCH (25.0-35.0) pg MCHC (31.0-37.0) g/dl RDW (11.5-14.5) % Plt Count (120.0-450.0) 10^3/uL Manual Plt Count (120-450) K/mm3 Gran % (50.0-68.0) % Lymph % (Auto) (22.0-35.0) % [place] % (Auto) (1.0-6.0) % Eos % (Auto) (1.5-5.0) % Baso % (Auto) (0.0-3.0) % Gran # (1.4-6.5) Lymph # (Auto) (1.2-3.4) [place] # (Auto) (0.1-0.6) Eos # (Auto) (0.0-0.7) Baso # (Auto) (0.0-2.0) K/mm3 Neutrophils % (Manual) (50.0-70.0) % Lymphocytes % (Manual) (22.0-35.0) % Monocytes % (Manual) (1.0-6.0) % Platelet Evaluation (NORMAL) pCO2 (35-45) mm/Hg pO2 (80-100) mm/Hg HCO3 (21-28) mmol/L ABG pH (7.35-7.45) ABG Total CO2 (22-28) mmol.L ABG O2 Saturation (95-98) % ABG O2 Content (15-23) ML/dl ABG Base Excess (-2.0-3.0) mmol/L ABG Hemoglobin (11.7-17.4) g/dL ABG Carboxyhemoglobin (0.5-1.5) % POC ABG HHb (Measured) (0-5) % ABG Methemoglobin (0.0-3.0) % ABG O2 Capacity (16-24) mL/dl Hgb O2 Saturation (95.0-98.0) % FiO2 % Sodium 155 H (132-148) mmol/L Potassium 3.0 L (3.6-5.0) mmol/L Chloride 126 H (98-107) mmol/L Carbon Dioxide 23 (21-33) mmol/L Anion Gap 9 L (10-20) BUN 95 H (7-21) mg/dL Creatinine 2.1 H (0.8-1.5) mg/dl Est GFR ( Amer) 39 Est GFR (Non-Af Amer) 32 POC Glucose (mg/dL) 330 H (65-110) mg/dL Random Glucose 317 H* (70-110) mg/dL Calcium 8.5 (8.4-10.5) mg/dL Total Bilirubin (0.2-1.3) mg/dL AST (17-59) U/L ALT (7-56) U/L Alkaline Phosphatase (38-126) U/L Total Protein (5.8-8.3) g/dL Albumin (3.0-4.8) g/dL Globulin gm/dL Albumin/Globulin Ratio (1.1-1.8) Laboratory Results - last 24 hr 07/17/18 07/17/18 07/17/18 11:00 11:55 17:42 WBC RBC Hgb Hct MCV MCH MCHC RDW Plt Count Manual Plt Count Gran % Lymph % (Auto) [place] % (Auto) Eos % (Auto) Baso % (Auto) Gran # Lymph # (Auto) [place] # (Auto) Eos # (Auto) Baso # (Auto) Neutrophils % (Manual) Lymphocytes % (Manual) Monocytes % (Manual) Platelet Evaluation pCO2 pO2 HCO3 ABG pH ABG Total CO2 ABG O2 Saturation ABG O2 Content ABG Base Excess ABG Hemoglobin ABG Carboxyhemoglobin POC ABG HHb (Measured) ABG Methemoglobin ABG O2 Capacity Hgb O2 Saturation FiO2 Sodium 155 H Potassium 3.0 L Chloride 126 H Carbon Dioxide 23 Anion Gap 9 L BUN 95 H Creatinine 2.1 H Est GFR ( Amer) 39 Est GFR (Non-Af Amer) 32 POC Glucose (mg/dL) 330 H 377 H Random Glucose 317 H* Calcium 8.5 Total Bilirubin AST ALT Alkaline Phosphatase Total Protein Albumin Globulin Albumin/Globulin Ratio 07/17/18 07/18/18 07/18/18 21:48 05:00 05:00 WBC 12.8 H D RBC 3.26 L Hgb 8.7 L Hct 28.9 L MCV 88.7 MCH 26.7 MCHC 30.1 L RDW 16.7 H Plt Count 18 L* Manual Plt Count 30 L* Gran % 96.6 H Lymph % (Auto) 2.7 L [place] % (Auto) 0.7 L Eos % (Auto) 0.0 L Baso % (Auto) 0.0 Gran # 12.35 H Lymph # (Auto) 0.4 L [place] # (Auto) 0.1 Eos # (Auto) 0.0 Baso # (Auto) 0.00 Neutrophils % (Manual) 95 H Lymphocytes % (Manual) 3 L Monocytes % (Manual) 2 Platelet Evaluation Low pCO2 pO2 HCO3 ABG pH ABG Total CO2 ABG O2 Saturation ABG O2 Content ABG Base Excess ABG Hemoglobin ABG Carboxyhemoglobin POC ABG HHb (Measured) ABG Methemoglobin ABG O2 Capacity Hgb O2 Saturation FiO2 Sodium 152 H Potassium 4.5 Chloride 125 H Carbon Dioxide 23 Anion Gap 8 L BUN 95 H Creatinine 2.1 H Est GFR ( Amer) 39 Est GFR (Non-Af Amer) 32 POC Glucose (mg/dL) 432 H* Random Glucose 450 H* D Calcium 8.7 Total Bilirubin 0.8 AST 33 ALT 60 H Alkaline Phosphatase 79 Total Protein 6.3 Albumin 2.8 L Globulin 3.5 Albumin/Globulin Ratio 0.8 L 07/18/18 07/18/18 08:50 11:30 WBC RBC Hgb Hct MCV MCH MCHC RDW Plt Count Manual Plt Count Gran % Lymph % (Auto) [place] % (Auto) Eos % (Auto) Baso % (Auto) Gran # Lymph # (Auto) [place] # (Auto) Eos # (Auto) Baso # (Auto) Neutrophils % (Manual) Lymphocytes % (Manual) Monocytes % (Manual) Platelet Evaluation pCO2 29 L pO2 119.0 H HCO3 20.6 L ABG pH 7.46 H ABG Total CO2 21.5 L ABG O2 Saturation 99.4 H ABG O2 Content 12.1 L ABG Base Excess -2.6 L ABG Hemoglobin 8.7 L ABG Carboxyhemoglobin 1.9 H POC ABG HHb (Measured) 0.6 ABG Methemoglobin 0.9 ABG O2 Capacity 12.2 L Hgb O2 Saturation 96.6 FiO2 32.0 Sodium 151 H Potassium 4.3 Chloride 124 H Carbon Dioxide 22 Anion Gap 11 BUN 98 H Creatinine 2.1 H Est GFR ( Amer) 39 Est GFR (Non-Af Amer) 32 POC Glucose (mg/dL) Random Glucose 404 H* Calcium 8.7 Total Bilirubin AST ALT Alkaline Phosphatase Total Protein Albumin Globulin Albumin/Globulin Ratio Radiology Impressions: Radiology Impressions Chest X-Ray 07/18/18 06:00 IMPRESSION: No active disease. Critical Care Progress Note - Nutrition Nutrition: Nutrition Category Date Time Status NPO Diet [DIET] Diets 07/06/18 Breakfast Ordered Assessment/Plan - Assessment and Plan (Free Text) Assessment: Patient seen and examined on rounds, with resident, agree with note with following additions/exceptions: Patient is 62yo male with PMhx of COPD, active smoker 2pks per day, HTN, DM, PVD, admitted for hypoxic respiratory failure, 2/2 Influenza PNA, and superimposed bacterial PNA. Pt is currently extubated, on 3LNC, not on Vasopressor support. Pt's with chornic thrombocytopenia, no clinical evidence of overt bleeding Adequate UOP Patient with CIP Pt awake, alert, non conversive PNA ARDS FLU MODS Renal failure, s/p HD Thrombocytopenia rule out ITP/TTP COPD HTN PVD DM Recommend: - cont with supp o2 as needed, goal sat 90% - Conservative fluid management - monitor off abx, finished course of broad spectrum abx - BP control - HD as per renal - monitor LFTs - FS control, start insulin drip - I/Os - DC D5W - Free water flushes 500cc Q6hr - follow up cardio - GI ppx - DVT ppx - Monitor in MICU Critical care time 35 minutes
[2018-07-18] MEDS ORDERED: Insulin Regular 1 UNITS/0.01 ML ML SC ONE (07:33)
[2018-07-18 09:17] LABS: ARTERIAL BLOOD GAS HCO3 20.6 mmol/L (21-28); ARTERIAL BLOOD GAS HEMOGLOBIN 8.7 g/dL (11.7-17.4); ARTERIAL BLOOD GAS O2 CAPACITY 12.2 mL/dl (16-24); ARTERIAL BLOOD GAS O2 CONTENT 12.1 ML/dl (15-23); ARTERIAL BLOOD GAS O2 SAT 99.4 % (95-98); ARTERIAL BLOOD GAS PCO2 29 mm/Hg (35-45); ARTERIAL BLOOD GAS PH 7.46 (7.35-7.45); ARTERIAL BLOOD GAS TCO2 21.5 mmol.L (22-28)
--- NOTE | 2018-07-18 09:27 | PN ---
SUBJECTIVE: The patient was seen and examined at bedside in the ICU. No acute events overnight. He remains afebrile and hemodynamically stable. OBJECTIVE: VITAL SIGNS: Temperature 99.5, pulse 78, blood pressure 141/71, respiratory rate 20 and oxygen saturation 92% on 2 liters nasal cannula. GENERAL: No apparent distress. HEENT: PERRL, EOMI. No scleral icterus. NECK: No JVD. LUNGS: Decreased breath sounds at the bases with few scattered rhonchi. CARDIOVASCULAR. Irregularly irregular. Normal S1 and S2. ABDOMEN: Normoactive bowel sounds. Soft and nondistended. EXTREMITIES: 1+ edema in all extremities with multiple areas of ecchymoses. NEUROLOGIC: Awake and alert. Able to blink eyes appropriately to yes/no questions and track with eyes. Unable to move extremities. LABORATORY DATA: WBC 12.8 with 96% neutrophils, hemoglobin 8.7, hematocrit 29 and platelets 30. Sodium 152, potassium 4.5, chloride 125, bicarb 23, BUN 95, creatinine 2.1 and glucose 450. Blood cultures negative. Urine cultures negative. ASSESSMENT: The patient is a 62-year-old man with multiple medical comorbidities who was admitted to ICU s/p intubation for acute hypoxic respiratory failure and severe sepsis secondary to community-acquired pneumonia and multiorgan system failure who is now s/p extubation. PLAN: 1. Acute hypoxic respiratory failure s/p extubation. Input from Dr. Burr and ICU team greatly appreciated. Continue with care as per ICU team. 2. Severe sepsis secondary to community-acquired pneumonia with influenza, resolving. Input from Dr. Lucero appreciated. Continue with current antimicrobials. 3. Acute kidney injury, secondary to ATN in the setting of severe sepsis, resolving. Input from Dr. Sullivan appreciated. 4. NSTEMI. Input from Dr. Saxena appreciated. The patient will likely require cardiac catheterization when medically stabilized. 5. Atrial fibrillation, new onset, rate controlled. Continue Diltiazem and Digoxin. 6. Acute systolic heart failure. As above, the patient will require cardiac catheterization when medically stabilized. 7. Hypernatremia, improving. 8. 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 Input from Dr. Mcdaniels noted. The patient will require extensive physical therapy. 9. Transaminitis, likely secondary to shock liver in the setting of severe sepsis, resolved. 10. Thrombocytopenia secondary to ITP. Input from Dr. Estevez appreciated. The patient is s/p IVIG and platelet transfusion. 11. Normocytic anemia. Labs with stable H/H and no evidence of active bleed. 12. Type 2 diabetes mellitus. Continue Levemir and high-dose insulin sliding scale. 13. Hypertension. 14. Pseudogout. 15. Anxiety disorder. 16. GERD. 17. Prophylaxis. Continue Protonix for GI prophylaxis and SCDs for DVT prophylaxis. CODE STATUS: Full code. Yassine Martinez MD MTDD
--- NOTE | 2018-07-18 10:00 | RAD ---
Date of service: 07/18/2018 HISTORY: f/u COMPARISON: July 17, 2018. FINDINGS: LUNGS: No active pulmonary disease. Improved aeration left lower lobe. PLEURA: No significant pleural effusion identified, no pneumothorax apparent. CARDIOVASCULAR: Atherosclerotic calcifications identified primarily aortic arch. No radiographic findings to suggest acute or significant cardiovascular disease. OSSEOUS STRUCTURES: No significant abnormalities. VISUALIZED UPPER ABDOMEN: Stable position of feeding tube in the stomach. OTHER FINDINGS: None. IMPRESSION: No active disease.
[2018-07-18] MEDS ORDERED: Insulin Regular 100 UNITS in Sodium Chloride 0.9% 99 ML IV PRN ×2 (11:26→12:12)
[2018-07-18 12:00] LABS: CALCIUM 8.7 mg/dL (8.4-10.5)
[2018-07-18] MEDS: Digoxin 500 mcg/2ml (0.5 mg/2ml) Inj IVP SCH (13:40)
--- NOTE | 2018-07-18 16:31 | PN ---
DATE: 07/18/2018 SUBJECTIVE: The patient is seen lying in bed. He is awake, eyes are open, still not moving any extremities. Seems like he is trying to verbalize something; although, it is very unclear what he is trying to say. PHYSICAL EXAMINATION: GENERAL: Elderly male lying in bed. VITAL SIGNS: Blood pressure 111/51, heart rate 84, respiratory rate 24, temperature 99.7 and T max 99.9. HEENT: Normocephalic, atraumatic and positive pallor. NECK: Supple. No JVD. LUNGS: Bilateral equal air entry, bilateral rhonchi, crackles left base. CARDIAC: S1 and S2, regular rate and rhythm. No murmur. No rub. ABDOMEN: Distended, soft and bowel sounds present. EXTREMITIES: No lower extremity edema. INTAKE AND OUTPUT: 8500/2950? LABORATORY DATA: WBC 12.8, hemoglobin 8.7, hematocrit 28.9 and platelets 30. Sodium 151, potassium 4.3, chloride 124, CO2 of 22, BUN 98, creatinine 2.1, glucose 404 and calcium 8.7. CURRENT MEDICATIONS: Cardizem 50 t.i.d. DuoNeb, Insulin 6 units per hour, Digoxin 0.125 IV push daily, Levemir 30 units, Protonix, Tylenol, vitamin A and D and off IV Cardizem. ASSESSMENT: 1. Acute kidney injury, superimposed on chronic kidney disease stage III, acute tubular necrosis in the setting of severe sepsis. Required dialysis. Now off dialysis. Excellent urine output. 2. Community-acquired pneumonia, concomitant influenza, respiratory failure, now off ventilator. 3. Critical illness polyneuropathy, filled with flaccid paresis, slight improvement in mentation? status post high dose steroid, Solu-Medrol 500 mg IV piggyback yesterday. 4. Uncontrolled diabetes, now on insulin drip. 5. Severe thrombocytopenia, history of immune thrombocytopenic purpura. 6. Severe anemia. 7. Improving leukocytosis. 8. Severe hypernatremia, dehydration now improving with p.o. free water. 9. History of hypertension. 10. New onset atrial fibrillation in the setting of severe sepsis. 11. Severe cardiomyopathy, decreased ejection fraction. PLAN: 1. No further dialysis needed. 2. Change free water via NG tube to 150 mL every 6 hours. 3. Maintain euglycemia with IV insulin. 4. Maintain heart rate with p.o. Cardizem via NG tube. 5. Avoid nephrotoxins. 6. Status post antibiotics for pneumonia. 7. Monitor H and H. 8. Monitor platelet count. 9. Case discussed with ICU residence and case discussed with ICU nursing staff. More than 35 minutes spent on the care of this critically ill patient. Bobbi Sullivan MD
--- NOTE | 2018-07-18 18:33 | PN ---
DATE: 07/18/2018 SUBJECTIVE: The patient is seen earlier today. The patient is in bed and in no acute distress. PHYSICAL EXAMINATION: VITAL SIGNS: Temperature of 99, blood pressure is 103/50, respiratory rate of 18. HEENT: Unremarkable. NECK: Supple. LUNGS: Have decreased breath sounds. HEART: Normal S1, S2. ABDOMEN: Soft, nontender. LABORATORY EXAMINATION: Reveals a white count of 12,800, hemoglobin of 8. BUN of 98, creatinine of 2.1 and glucose is elevated. REVIEW OF MEDICATIONS: Reveals the patient to be on Solu-Medrol and off of antibiotics. The patient's chest x-ray today, no active disease, improved aeration. Dr. Yassine Martinez's progress note is appreciated. ASSESSMENT AND PLAN: The patient is a 62-year-old with severe sepsis with hypoxic respiratory failure status post ventilator-dependent respiratory failure, [id number] renal failure, thrombocytopenia, severe right-sided community-acquired pneumonia, status post viral infection with influenza A, cerebrovascular accident and active smoker, chronic obstructive lung disease, hypertension, diabetic, and peripheral vascular disease. Currently is off of antibiotics. White count normalizing. The patient's mentation appears to be improving and he is at high risk for developing nosocomial infections. Satya Fernandes MD
[2018-07-18 18:58] LABS: CALCIUM 8.6 mg/dL (8.4-10.5)
[2018-07-18] MEDS: Insulin Detemir 100 units/ml Vial (Levemir) SC SCH (22:18)
[2018-07-19 00:15] LABS: CALCIUM 8.7 mg/dL (8.4-10.5)
[2018-07-19] MEDS: Albuterol-Ipratrop 3 mg / 0.5 (3 ml) UD IH SCH ×4 (01:57→19:56)
[2018-07-19 05:47] LABS: INR 1.09; PROTHROMBIN TIME 12.5 SECONDS (9.4-12.5)
[2018-07-19 05:49] LABS: HEMOGLOBIN 9.6 g/dL (14.0-18.0); MEAN CELL VOLUME 89.7 fl (80.0-105.0); MEAN CORPUSCULAR HEMOGLOBIN 26.1 pg (25.0-35.0); MEAN CORPUSCULAR HGB CONC 29.1 g/dl (31.0-37.0); MONO # 0.3 (0.1-0.6); MONO % 1.7 % (1.0-6.0); RBC 3.68 10^6/uL (3.5-6.1); RED CELL DISTRIBUTION WIDTH 16.9 % (11.5-14.5); WHITE BLOOD COUNT 17.3 10^3/uL (4.5-11.0)
[2018-07-19 06:03] LABS: PLATELET COUNT 20 10^3/uL (120.0-450.0)
[2018-07-19 06:17] LABS: ALB/GLOB RATIO 0.8 (1.1-1.8); ALBUMIN 2.9 g/dL (3.0-4.8)
[2018-07-19 07:51] LABS: PLATELET ESTIMATE LOW (NORMAL)
[2018-07-19] MEDS: Insulin Reg-MEDIUM-Coverage SC SCH ×4 (08:06→21:48)
--- NOTE | 2018-07-19 08:12 | CP.CCUPN ---
<Ismael Turner - Last Filed: 07/19/18 11:53> CCU Subjective - Physician Review Subjective (Free Text): Ismael Turner PGY-1 Progress Note for ICU Patient seen and evaluated at bedside. R femoral triple lumen catheter removed yesterday. Afebrile overnight, respirating on nasal cannula 3 L. Responsive and attempts to speak. Extremities remain flaccid at this time. Opens eyes spontaneously and is able to track. Further ROS was unobtainable at this time due to clinical condition. CCU Objective - Vital Signs / Intake & Output Vital Signs (Last 4 hours): Vital Signs Temp Pulse Resp BP Pulse Ox 07/19/18 07:00 99.5 F 85 24 124/68 99 07/19/18 06:08 99.5 F 88 99 07/19/18 06:00 99.5 F 86 27 H 124/68 100 07/19/18 05:00 99.7 F H 88 25 H 124/65 98 07/19/18 04:55 99.7 F H 07/19/18 04:54 99.7 F H 07/19/18 04:53 99.7 F H 07/19/18 04:52 99.7 F H 07/19/18 04:51 99.7 F H 07/19/18 04:50 99.7 F H 07/19/18 04:49 99.7 F H 07/19/18 04:48 99.7 F H 07/19/18 04:47 99.7 F H 80 L 07/19/18 04:46 99.7 F H 81 L 07/19/18 04:45 99.7 F H 100 07/19/18 04:44 99.7 F H 100 07/19/18 04:43 99.7 F H 100 07/19/18 04:42 99.7 F H 100 07/19/18 04:41 99.7 F H 94 L 07/19/18 04:40 99.7 F H 91 H 92 L Intake and Output (Last 8hrs): Intake & Output 07/18/18 07/19/18 07/19/18 22:59 06:59 14:59 Intake Total 3230 480 Output Total 825 825 Balance 2405 -345 Intake: IV 350 Right Hand 35 d5w 300 Tube Feeding 2880 480 Output: Urine 825 825 Urethral (Ash) 825 825 Stool 0 Emesis 0 Other: # Bowel Movements 0 - Physical Exam Head: Positive for: Atraumatic, Normocephalic Pupils: Positive for: PERRL Extroacular Muscles: Negative for: EOMI (unable to be assessed) Conjunctiva: Positive for: Normal Mouth: Positive for: Dry, Drooling Nose (External): Positive for: Other (Dobhoff in place in R nares, NC in place) Respiratory/Chest: Positive for: Clear to Auscultation, Decreased Breath Sounds. Negative for: Respiratory Distress, Wheezes, Tachypneic Cardiovascular: Positive for: Normal S1, S2, Irregular Rhythm. Negative for: Murmurs Abdomen: Positive for: Other (R femoral cath site removed yesterday, dressing c/d/i, without hematoma). Negative for: Tenderness, Peritoneal Signs, Guarding Back: Positive for: Normal Inspection Upper Extremity: Positive for: Normal Inspection, Other (Occasional spontaneous motor movement at this time in upper extremities). Negative for: Cyanosis, Edema Lower Extremity: Positive for: Edema (1+ pitting edema noted to right lower extremity; chronic diabetic ulcer noted to anterior anderson of left lower extremity ), Other (Occasional spontaneous motor movement at this time in lower extremities) Neurological: Negative for: GCS=15, CN II-XII Intact, Speech Normal Skin: Positive for: Warm, Dry, Normal Color, Other (Ecchymotic in R antecubital region, stable; ecchymoses at different levels of healing throughout extremities). Negative for: Rashes Psychiatric: Positive for: Alert (responds to verbal and painful stimuli). Negative for: Oriented x 3 (unable to coherently respond verbally), Normal Insight, Normal Concentration - Medications Active Medications: Active Medications Generic Name Dose Route Start Last Admin Trade Name Freq PRN Reason Stop Dose Admin Acetaminophen 650 mg 07/08/18 18:18 07/14/18 12:29 Tylenol 650mg/20.3ml Solution Ud PO 650 mg Q6H PRN Administration Fever 101F Albuterol/Ipratropium 3 ml 07/03/18 14:00 07/19/18 07:24 Duoneb 3 Mg/0.5 Mg (3 Ml) Ud IH 3 ml [id number] SEEMA Administration Albuterol/Ipratropium 3 ml 07/03/18 11:04 07/11/18 23:55 Duoneb 3 Mg/0.5 Mg (3 Ml) Ud IH 3 ml Q2H PRN Administration Shortness of Breath Digoxin 0.125 mg 07/13/18 14:00 07/18/18 13:40 Lanoxin IVP 0.125 mg 1400 SEEMA Administration Diltiazem HCl 60 mg 07/17/18 14:00 07/18/18 17:13 Cardizem PO 60 mg TID SEEMA Administration Heparin Sodium (Porcine) 3,000 units 07/11/18 10:09 07/14/18 15:43 Heparin IVP 3,000 units ONCE PRN Administration Other Insulin Detemir 30 unit 07/17/18 10:39 07/18/18 22:18 Levemir SC 30 units HS SEEMA Administration Insulin Human Regular 0 units 07/19/18 07:38 Humulin R Med SC ACHS [facility] Protocol Pantoprazole Sodium 40 mg 07/03/18 14:15 07/18/18 09:58 Protonix Inj IVP 40 mg DAILY SEEMA Administration Vitamin A 1 applic 07/13/18 16:53 Vitamin A&D TP Q8 PRN Dry mouth - Patient Studies Lab Studies: Microbiology Studies 07/13/18 10:00 Blood Culture - Final Blood-Venous NO GROWTH AFTER 5 DAYS 07/13/18 10:20 Blood Culture - Final Blood-Venous NO GROWTH AFTER 5 DAYS Gram Stain - Final TEST NOT PERFORMED Lab Studies 07/19/18 07/19/18 07/19/18 Range/Units 05:00 05:00 05:00 WBC 17.3 H D (4.5-11.0) 10^3/uL RBC 3.68 (3.5-6.1) 10^6/uL Hgb 9.6 L (14.0-18.0) g/dL Hct 33.0 L (42.0-52.0) % MCV 89.7 (80.0-105.0) fl MCH 26.1 (25.0-35.0) pg MCHC 29.1 L (31.0-37.0) g/dl RDW 16.9 H (11.5-14.5) % Plt Count 20 L* (120.0-450.0) 10^3/uL [facility] % (Auto) 1.7 (1.0-6.0) % Eos % (Auto) 0.0 L (1.5-5.0) % Baso % (Auto) 0.0 (0.0-3.0) % [facility] # (Auto) 0.3 (0.1-0.6) Eos # (Auto) 0.0 (0.0-0.7) Baso # (Auto) 0.00 (0.0-2.0) K/mm3 Platelet Evaluation Low (NORMAL) PT 12.5 (9.4-12.5) SECONDS INR 1.09 pCO2 (35-45) mm/Hg pO2 (80-100) mm/Hg HCO3 (21-28) mmol/L ABG pH (7.35-7.45) ABG Total CO2 (22-28) mmol.L ABG O2 Saturation (95-98) % ABG O2 Content (15-23) ML/dl ABG Base Excess (-2.0-3.0) mmol/L ABG Hemoglobin (11.7-17.4) g/dL ABG Carboxyhemoglobin (0.5-1.5) % POC ABG HHb (Measured) (0-5) % ABG Methemoglobin (0.0-3.0) % ABG O2 Capacity (16-24) mL/dl Hgb O2 Saturation (95.0-98.0) % FiO2 % Sodium 155 H (132-148) mmol/L Potassium 4.6 (3.6-5.0) mmol/L Chloride 126 H (98-107) mmol/L Carbon Dioxide 23 (21-33) mmol/L Anion Gap 11 (10-20) BUN 108 H (7-21) mg/dL Creatinine 2.2 H (0.8-1.5) mg/dl Est GFR ( Amer) 37 Est GFR (Non-Af Amer) 30 POC Glucose (mg/dL) (65-110) mg/dL Random Glucose 228 H (70-110) mg/dL Calcium 9.0 (8.4-10.5) mg/dL Total Bilirubin 0.7 (0.2-1.3) mg/dL AST 59 D (17-59) U/L ALT 76 H (7-56) U/L Alkaline Phosphatase 86 (38-126) U/L Total Protein 6.5 (5.8-8.3) g/dL Albumin 2.9 L (3.0-4.8) g/dL Globulin 3.5 gm/dL Albumin/Globulin Ratio 0.8 L (1.1-1.8) 07/18/18 07/18/18 07/18/18 Range/Units 23:30 19:18 18:12 WBC (4.5-11.0) 10^3/uL RBC (3.5-6.1) 10^6/uL Hgb (14.0-18.0) g/dL Hct (42.0-52.0) % MCV (80.0-105.0) fl MCH (25.0-35.0) pg MCHC (31.0-37.0) g/dl RDW (11.5-14.5) % Plt Count (120.0-450.0) 10^3/uL [facility] % (Auto) (1.0-6.0) % Eos % (Auto) (1.5-5.0) % Baso % (Auto) (0.0-3.0) % [facility] # (Auto) (0.1-0.6) Eos # (Auto) (0.0-0.7) Baso # (Auto) (0.0-2.0) K/mm3 Platelet Evaluation (NORMAL) PT (9.4-12.5) SECONDS INR pCO2 (35-45) mm/Hg pO2 (80-100) mm/Hg HCO3 (21-28) mmol/L ABG pH (7.35-7.45) ABG Total CO2 (22-28) mmol.L ABG O2 Saturation (95-98) % ABG O2 Content (15-23) ML/dl ABG Base Excess (-2.0-3.0) mmol/L ABG Hemoglobin (11.7-17.4) g/dL ABG Carboxyhemoglobin (0.5-1.5) % POC ABG HHb (Measured) (0-5) % ABG Methemoglobin (0.0-3.0) % ABG O2 Capacity (16-24) mL/dl Hgb O2 Saturation (95.0-98.0) % FiO2 % Sodium 154 H (132-148) mmol/L Potassium 4.5 (3.6-5.0) mmol/L Chloride 127 H (98-107) mmol/L Carbon Dioxide 22 (21-33) mmol/L Anion Gap 10 (10-20) BUN 106 H (7-21) mg/dL Creatinine 2.1 H (0.8-1.5) mg/dl Est GFR ( Amer) 39 Est GFR (Non-Af Amer) 32 POC Glucose (mg/dL) 153 H 176 H (65-110) mg/dL Random Glucose 223 H (70-110) mg/dL Calcium 8.7 (8.4-10.5) mg/dL Total Bilirubin (0.2-1.3) mg/dL AST (17-59) U/L ALT (7-56) U/L Alkaline Phosphatase (38-126) U/L Total Protein (5.8-8.3) g/dL Albumin (3.0-4.8) g/dL Globulin gm/dL Albumin/Globulin Ratio (1.1-1.8) 07/18/18 07/18/18 07/18/18 Range/Units 17:25 17:15 16:12 WBC (4.5-11.0) 10^3/uL RBC (3.5-6.1) 10^6/uL Hgb (14.0-18.0) g/dL Hct (42.0-52.0) % MCV (80.0-105.0) fl MCH (25.0-35.0) pg MCHC (31.0-37.0) g/dl RDW (11.5-14.5) % Plt Count (120.0-450.0) 10^3/uL [facility] % (Auto) (1.0-6.0) % Eos % (Auto) (1.5-5.0) % Baso % (Auto) (0.0-3.0) % [facility] # (Auto) (0.1-0.6) Eos # (Auto) (0.0-0.7) Baso # (Auto) (0.0-2.0) K/mm3 Platelet Evaluation (NORMAL) PT (9.4-12.5) SECONDS INR pCO2 (35-45) mm/Hg pO2 (80-100) mm/Hg HCO3 (21-28) mmol/L ABG pH (7.35-7.45) ABG Total CO2 (22-28) mmol.L ABG O2 Saturation (95-98) % ABG O2 Content (15-23) ML/dl ABG Base Excess (-2.0-3.0) mmol/L ABG Hemoglobin (11.7-17.4) g/dL ABG Carboxyhemoglobin (0.5-1.5) % POC ABG HHb (Measured) (0-5) % ABG Methemoglobin (0.0-3.0) % ABG O2 Capacity (16-24) mL/dl Hgb O2 Saturation (95.0-98.0) % FiO2 % Sodium 153 H (132-148) mmol/L Potassium 4.5 (3.6-5.0) mmol/L Chloride 126 H (98-107) mmol/L Carbon Dioxide 20 L (21-33) mmol/L Anion Gap 12 (10-20) BUN 103 H (7-21) mg/dL Creatinine 1.9 H (0.8-1.5) mg/dl Est GFR ( Amer) 44 Est GFR (Non-Af Amer) 36 POC Glucose (mg/dL) 184 H 218 H (65-110) mg/dL Random Glucose 182 H (70-110) mg/dL Calcium 8.6 (8.4-10.5) mg/dL Total Bilirubin (0.2-1.3) mg/dL AST (17-59) U/L ALT (7-56) U/L Alkaline Phosphatase (38-126) U/L Total Protein (5.8-8.3) g/dL Albumin (3.0-4.8) g/dL Globulin gm/dL Albumin/Globulin Ratio (1.1-1.8) 07/18/18 07/18/18 07/18/18 Range/Units 14:48 13:57 12:53 WBC (4.5-11.0) 10^3/uL RBC (3.5-6.1) 10^6/uL Hgb (14.0-18.0) g/dL Hct (42.0-52.0) % MCV (80.0-105.0) fl MCH (25.0-35.0) pg MCHC (31.0-37.0) g/dl RDW (11.5-14.5) % Plt Count (120.0-450.0) 10^3/uL [facility] % (Auto) (1.0-6.0) % Eos % (Auto) (1.5-5.0) % Baso % (Auto) (0.0-3.0) % [facility] # (Auto) (0.1-0.6) Eos # (Auto) (0.0-0.7) Baso # (Auto) (0.0-2.0) K/mm3 Platelet Evaluation (NORMAL) PT (9.4-12.5) SECONDS INR pCO2 (35-45) mm/Hg pO2 (80-100) mm/Hg HCO3 (21-28) mmol/L ABG pH (7.35-7.45) ABG Total CO2 (22-28) mmol.L ABG O2 Saturation (95-98) % ABG O2 Content (15-23) ML/dl ABG Base Excess (-2.0-3.0) mmol/L ABG Hemoglobin (11.7-17.4) g/dL ABG Carboxyhemoglobin (0.5-1.5) % POC ABG HHb (Measured) (0-5) % ABG Methemoglobin (0.0-3.0) % ABG O2 Capacity (16-24) mL/dl Hgb O2 Saturation (95.0-98.0) % FiO2 % Sodium (132-148) mmol/L Potassium (3.6-5.0) mmol/L Chloride (98-107) mmol/L Carbon Dioxide (21-33) mmol/L Anion Gap (10-20) BUN (7-21) mg/dL Creatinine (0.8-1.5) mg/dl Est GFR ( Amer) Est GFR (Non-Af Amer) POC Glucose (mg/dL) 268 H 271 H 352 H (65-110) mg/dL Random Glucose (70-110) mg/dL Calcium (8.4-10.5) mg/dL Total Bilirubin (0.2-1.3) mg/dL AST (17-59) U/L ALT (7-56) U/L Alkaline Phosphatase (38-126) U/L Total Protein (5.8-8.3) g/dL Albumin (3.0-4.8) g/dL Globulin gm/dL Albumin/Globulin Ratio (1.1-1.8) 07/18/18 07/18/18 07/18/18 Range/Units 12:04 11:30 11:21 WBC (4.5-11.0) 10^3/uL RBC (3.5-6.1) 10^6/uL Hgb (14.0-18.0) g/dL Hct (42.0-52.0) % MCV (80.0-105.0) fl MCH (25.0-35.0) pg MCHC (31.0-37.0) g/dl RDW (11.5-14.5) % Plt Count (120.0-450.0) 10^3/uL [facility] % (Auto) (1.0-6.0) % Eos % (Auto) (1.5-5.0) % Baso % (Auto) (0.0-3.0) % [facility] # (Auto) (0.1-0.6) Eos # (Auto) (0.0-0.7) Baso # (Auto) (0.0-2.0) K/mm3 Platelet Evaluation (NORMAL) PT (9.4-12.5) SECONDS INR pCO2 (35-45) mm/Hg pO2 (80-100) mm/Hg HCO3 (21-28) mmol/L ABG pH (7.35-7.45) ABG Total CO2 (22-28) mmol.L ABG O2 Saturation (95-98) % ABG O2 Content (15-23) ML/dl ABG Base Excess (-2.0-3.0) mmol/L ABG Hemoglobin (11.7-17.4) g/dL ABG Carboxyhemoglobin (0.5-1.5) % POC ABG HHb (Measured) (0-5) % ABG Methemoglobin (0.0-3.0) % ABG O2 Capacity (16-24) mL/dl Hgb O2 Saturation (95.0-98.0) % FiO2 % Sodium 151 H (132-148) mmol/L Potassium 4.3 (3.6-5.0) mmol/L Chloride 124 H (98-107) mmol/L Carbon Dioxide 22 (21-33) mmol/L Anion Gap 11 (10-20) BUN 98 H (7-21) mg/dL Creatinine 2.1 H (0.8-1.5) mg/dl Est GFR ( Amer) 39 Est GFR (Non-Af Amer) 32 POC Glucose (mg/dL) 381 H 431 H* (65-110) mg/dL Random Glucose 404 H* (70-110) mg/dL Calcium 8.7 (8.4-10.5) mg/dL Total Bilirubin (0.2-1.3) mg/dL AST (17-59) U/L ALT (7-56) U/L Alkaline Phosphatase (38-126) U/L Total Protein (5.8-8.3) g/dL Albumin (3.0-4.8) g/dL Globulin gm/dL Albumin/Globulin Ratio (1.1-1.8) 07/18/18 Range/Units 08:50 WBC (4.5-11.0) 10^3/uL RBC (3.5-6.1) 10^6/uL Hgb (14.0-18.0) g/dL Hct (42.0-52.0) % MCV (80.0-105.0) fl MCH (25.0-35.0) pg MCHC (31.0-37.0) g/dl RDW (11.5-14.5) % Plt Count (120.0-450.0) 10^3/uL [facility] % (Auto) (1.0-6.0) % Eos % (Auto) (1.5-5.0) % Baso % (Auto) (0.0-3.0) % [facility] # (Auto) (0.1-0.6) Eos # (Auto) (0.0-0.7) Baso # (Auto) (0.0-2.0) K/mm3 Platelet Evaluation (NORMAL) PT (9.4-12.5) SECONDS INR pCO2 29 L (35-45) mm/Hg pO2 119.0 H (80-100) mm/Hg HCO3 20.6 L (21-28) mmol/L ABG pH 7.46 H (7.35-7.45) ABG Total CO2 21.5 L (22-28) mmol.L ABG O2 Saturation 99.4 H (95-98) % ABG O2 Content 12.1 L (15-23) ML/dl ABG Base Excess -2.6 L (-2.0-3.0) mmol/L ABG Hemoglobin 8.7 L (11.7-17.4) g/dL ABG Carboxyhemoglobin 1.9 H (0.5-1.5) % POC ABG HHb (Measured) 0.6 (0-5) % ABG Methemoglobin 0.9 (0.0-3.0) % ABG O2 Capacity 12.2 L (16-24) mL/dl Hgb O2 Saturation 96.6 (95.0-98.0) % FiO2 32.0 % Sodium (132-148) mmol/L Potassium (3.6-5.0) mmol/L Chloride (98-107) mmol/L Carbon Dioxide (21-33) mmol/L Anion Gap (10-20) BUN (7-21) mg/dL Creatinine (0.8-1.5) mg/dl Est GFR ( Amer) Est GFR (Non-Af Amer) POC Glucose (mg/dL) (65-110) mg/dL Random Glucose (70-110) mg/dL Calcium (8.4-10.5) mg/dL Total Bilirubin (0.2-1.3) mg/dL AST (17-59) U/L ALT (7-56) U/L Alkaline Phosphatase (38-126) U/L Total Protein (5.8-8.3) g/dL Albumin (3.0-4.8) g/dL Globulin gm/dL Albumin/Globulin Ratio (1.1-1.8) Laboratory Results - last 24 hr 07/18/18 07/18/18 07/18/18 08:50 11:21 11:30 WBC RBC Hgb Hct MCV MCH MCHC RDW Plt Count [facility] % (Auto) E[facility] % (Auto) Baso % (Auto) [facility] # (Auto) Eos # (Auto) Baso # (Auto) Platelet Evaluation PT INR pCO2 29 L pO2 119.0 H HCO3 20.6 L ABG pH 7.46 H ABG Total CO2 21.5 L ABG O2 Saturation 99.4 H ABG O2 Content 12.1 L ABG Base Excess -2.6 L ABG Hemoglobin 8.7 L ABG Carboxyhemoglobin 1.9 H POC ABG HHb (Measured) 0.6 ABG Methemoglobin 0.9 ABG O2 Capacity 12.2 L Hgb O2 Saturation 96.6 FiO2 32.0 Sodium 151 H Potassium 4.3 Chloride 124 H Carbon Dioxide 22 Anion Gap 11 BUN 98 H Creatinine 2.1 H Est GFR ( Amer) 39 Est GFR (Non-Af Amer) 32 POC Glucose (mg/dL) 431 H* Random Glucose 404 H* Calcium 8.7 Total Bilirubin AST ALT Alkaline Phosphatase Total Protein Albumin Globulin Albumin/Globulin Ratio 07/18/18 07/18/18 07/18/18 12:04 12:53 13:57 WBC RBC Hgb Hct MCV MCH MCHC RDW Plt Count [facility] % (Auto) E[facility] % (Auto) Baso % (Auto) [facility] # (Auto) Eos # (Auto) Baso # (Auto) Platelet Evaluation PT INR pCO2 pO2 HCO3 ABG pH ABG Total CO2 ABG O2 Saturation ABG O2 Content ABG Base Excess ABG Hemoglobin ABG Carboxyhemoglobin POC ABG HHb (Measured) ABG Methemoglobin ABG O2 Capacity Hgb O2 Saturation FiO2 Sodium Potassium Chloride Carbon Dioxide Anion Gap BUN Creatinine Est GFR ( Amer) Est GFR (Non-Af Amer) POC Glucose (mg/dL) 381 H 352 H 271 H Random Glucose Calcium Total Bilirubin AST ALT Alkaline Phosphatase Total Protein Albumin Globulin Albumin/Globulin Ratio 07/18/18 07/18/18 07/18/18 14:48 16:12 17:15 WBC RBC Hgb Hct MCV MCH MCHC RDW Plt Count [facility] % (Auto) [facility] % (Auto) Baso % (Auto) [facility] # (Auto) Eos # (Auto) Baso # (Auto) Platelet Evaluation PT INR pCO2 pO2 HCO3 ABG pH ABG Total CO2 ABG O2 Saturation ABG O2 Content ABG Base Excess ABG Hemoglobin ABG Carboxyhemoglobin POC ABG HHb (Measured) ABG Methemoglobin ABG O2 Capacity Hgb O2 Saturation FiO2 Sodium Potassium Chloride Carbon Dioxide Anion Gap BUN Creatinine Est GFR ( Amer) Est GFR (Non-Af Amer) POC Glucose (mg/dL) 268 H 218 H 184 H Random Glucose Calcium Total Bilirubin AST ALT Alkaline Phosphatase Total Protein Albumin Globulin Albumin/Globulin Ratio 07/18/18 07/18/18 07/18/18 17:25 18:12 19:18 WBC RBC Hgb Hct MCV MCH MCHC RDW Plt Count [facility] % (Auto) [facility] % (Auto) Baso % (Auto) [facility] # (Auto) Eos # (Auto) Baso # (Auto) Platelet Evaluation PT INR pCO2 pO2 HCO3 ABG pH ABG Total CO2 ABG O2 Saturation ABG O2 Content ABG Base Excess ABG Hemoglobin ABG Carboxyhemoglobin POC ABG HHb (Measured) ABG Methemoglobin ABG O2 Capacity Hgb O2 Saturation FiO2 Sodium 153 H Potassium 4.5 Chloride 126 H Carbon Dioxide 20 L Anion Gap 12 BUN 103 H Creatinine 1.9 H Est GFR ( Amer) 44 Est GFR (Non-Af Amer) 36 POC Glucose (mg/dL) 176 H 153 H Random Glucose 182 H Calcium 8.6 Total Bilirubin AST ALT Alkaline Phosphatase Total Protein Albumin Globulin Albumin/Globulin Ratio 07/18/18 07/19/18 07/19/18 23:30 05:00 05:00 WBC 17.3 H D RBC 3.68 Hgb 9.6 L Hct 33.0 L MCV 89.7 MCH 26.1 MCHC 29.1 L RDW 16.9 H Plt Count 20 L* [facility] % (Auto) 1.7 Eos % (Auto) 0.0 L Baso % (Auto) 0.0 [facility] # (Auto) 0.3 Eos # (Auto) 0.0 Baso # (Auto) 0.00 Platelet Evaluation Low PT INR pCO2 pO2 HCO3 ABG pH ABG Total CO2 ABG O2 Saturation ABG O2 Content ABG Base Excess ABG Hemoglobin ABG Carboxyhemoglobin POC ABG HHb (Measured) ABG Methemoglobin ABG O2 Capacity Hgb O2 Saturation FiO2 Sodium 154 H 155 H Potassium 4.5 4.6 Chloride 127 H 126 H Carbon Dioxide 22 23 Anion Gap 10 11 BUN 106 H 108 H Creatinine 2.1 H 2.2 H Est GFR ( Amer) 39 37 Est GFR (Non-Af Amer) 32 30 POC Glucose (mg/dL) Random Glucose 223 H 228 H Calcium 8.7 9.0 Total Bilirubin 0.7 AST 59 D ALT 76 H Alkaline Phosphatase 86 Total Protein 6.5 Albumin 2.9 L Globulin 3.5 Albumin/Globulin Ratio 0.8 L 07/19/18 05:00 WBC RBC Hgb Hct MCV MCH MCHC RDW Plt Count [facility] % (Auto) [facility] % (Auto) Baso % (Auto) [facility] # (Auto) Eos # (Auto) Baso # (Auto) Platelet Evaluation PT 12.5 INR 1.09 pCO2 pO2 HCO3 ABG pH ABG Total CO2 ABG O2 Saturation ABG O2 Content ABG Base Excess ABG Hemoglobin ABG Carboxyhemoglobin POC ABG HHb (Measured) ABG Methemoglobin ABG O2 Capacity Hgb O2 Saturation FiO2 Sodium Potassium Chloride Carbon Dioxide Anion Gap BUN Creatinine Est GFR ( Amer) Est GFR (Non-Af Amer) POC Glucose (mg/dL) Random Glucose Calcium Total Bilirubin AST ALT Alkaline Phosphatase Total Protein Albumin Globulin Albumin/Globulin Ratio Radiology Impressions: Radiology Impressions Chest X-Ray 07/18/18 06:00 IMPRESSION: No active disease. Fingerstick Blood Sugar Results: 170 Review of Systems - Review of Systems Review of Systems: 12 point ROS unable to be obtained due to clinical condition. Critical Care Progress Note - Nutrition Nutrition: Nutrition Category Date Time Status NPO Diet [DIET] Diets 07/06/18 Breakfast Ordered Assessment/Plan - Assessment and Plan (Free Text) Assessment: 62 y/o male with PMHx of COPD, active smoker 1pk per day, HTN, DM, PVD, presents with ER with 2 day history of fever, chills, associated with cough that is non- productive. Yesterday, patient also developed SOB. Pt was found to have increased work of breathing, RR 35-40, subsequently intubated. Placed on low tidal vol. ventilation. Patient was initially started on heparin drip given elevated troponin, and markedly diminished EF. Hep drip currently held secondary to thrombocytopenia. Initially paralyzed on Nimbex after overbreathing ventilator. Extubated, ARDS resolved. No fevers overnight. Tmax 100.2. Neuro: Critical Illness Polyneuropathy - appreciate aggressive PT - 07/13/18 MRI brain without contrast negative for acute abnormalities - Results of EEG 07/10/[address] Roland: moderate nonspecific diffuse disturbance of cortical activity, nonspecific diffuse fernandez matter dysfunction, no seizures, not in status epilepticus - Neuro consult - Dr. Harvinder Mcdaniels - Poor motor function likely 2/2 critical illness polyneuropathy. Appreciate further recs. - 07/10/18 CT head without contrast negative - AAOx0, continue on sedation. - Pt. responds to painful stimuli - Continuous and frequent PT daily- recs appreciated - Continue to monitor Pulm CAP and Flu A + : resolved 07/17/18 CXR shows Vascular congestion with left lower lobe perihilar infiltrate 07/18/18 CXR shows improved vascular congestion - Duonebs seema q6 and PRN q2 - Urine Lg and Strep negative - Procal 4.85, repeat 5.96, 1.37 - ID eval: Dr. Fernandes - recs appreciated - Pulm consulted - Dr. Burr, recs appreciated - Resp therapy Cardio HFrEF - BNP [id number] - 07/03/18 echo report shows EF 14.2%, mildly dilated LV, systolic function severely impaired, akinetic septum, moderate TR and pulm HTN NSTEMI - Trop 0.48, 0.67, 0.67 - Cardiology consulted - Dr. Saxena. Cardiac cath on hold due to persistent thrombocytopenia. Hold Lasix per cardio. Further recs appreciated. - Continue Cardizem 60 mg PO TID and Dig for new onset A fib. F/u AM Dig level. - Dig level 07/13/18 0.8 - Hold IVF d/t poor EF. - Hold Heparin drip Chronic Thrombocytopenia, ITP - Has received frequent intermittent transfusions as outpatient - PLT 20, manual count 30. Will transfuse if <20 or actively bleeding per Hem recs - HIT Antibody negative. Will hold off on DVT chemoprophylaxis in light of thrombocytpenia, ok to start if persistently above 50 per Hem/Onc - Hem consult placed- Dr. Estevez. 4 unit PLT transfused. IV gammaglobulin 5 day course completed. Further recs appreciated per Dr. Estevez. - Negative IVONE and ANCA studies - 07/08/18 Peripheral smear shows no atypical cells or immature forms. Mild anisopoikilocytosis. No schistocytes. No PL clumping although markedly reduced. - ESR 45 - Split products >10 but <40 Stable Normocytic Anemia - Hgb 9.6 this AM, no obvious sign of bleed Endo Uncontrolled DM - Hgb a1c 8.2, accuchecks ACHS - Increased daily Levemir to 30 units HS yesterday, persistent hyperglycemia likely elevated 2/2 steroids. Insulin drip initiated. Accuchecks q1h - Diabetic education GI - Dobhoff in place, on Nepro and free water flushes Lipid panel - TG elevated at 172 Shock liver resolved Hep panel negative - 07/03/18 RUQ U/S shows hepatosplenomegaly PTX for Ppx Nephro OG on HD - Tolerated first HD 07/07/18 s/p triple lumen catheter in L femoral vein. Replaced in R femoral vein after clot. R femoral catheter removed yesterday per Nephro recs - Improved BUN/Cr 108/2.2 - Strict Is and Os. Profuse urine production - Ash in place. - Not candidate for kidney biopsy at this time due to inability to tolerate procedure - Nephro consult - recs appreciated No HD planned for today- Dr. Sullivan - recs appreciated. Patient in prerenal hypercatabolic state 2/2 sepsis. NGT for free water recommended Hypernatremia, Hyperchloremia - 155, 126 - Continue water flushes per Nephro recs in light of low EF. - F/U repeat swallow recs. Swallow eval recs 07/17/18: No response to oral stimulation or spoon/straw tip. Open mouth posture for breathing. - F/u nephro recs to consider repeating urine electrolytes MSK - Wound care consulted - Podiatry consulted- Dr. Richardson- recs appreciated- no acute intervention at this time. Has signed off. - OT/PT eval ID - No fever overnight, Leukocytosis 17.3. Continue to monitor off ABx. - Tylenol 650 q6 PRN for fever >101 - Ammonia level <9 - Rapid influenza A positive > Tamiflu course completed - ID eval: Dr. Fernandes - James Doxlaurie course completed. Monitor off ABx - Repeat blood cx neg after 5 days, repeat UA negative, repeat sputum cx growing moderate amount of yeast. - GI ppx: PTX - DVT ppx: Hep drip held in light of thrombocytopenia Dispo: Aggressive PT appreciated for deconditioning Patient seen, case reviewed and plan approved by Dr. Sung. Ismael Turner, PGY-1 <Golden Sung - Last Filed: 07/19/18 12:17> CCU Objective - Vital Signs / Intake & Output Vital Signs (Last 4 hours): Vital Signs Pulse BP 07/19/18 09:06 88 117/66 Intake and Output (Last 8hrs): Intake & Output 07/18/18 07/19/18 07/19/18 22:59 06:59 14:59 Intake Total 3230 480 Output Total 825 825 Balance 2405 -345 Intake: IV 350 Right Hand 35 d5w 300 Tube Feeding 2880 480 Output: Urine 825 825 Urethral (Ash) 825 825 Stool 0 Emesis 0 Other: # Bowel Movements 0 - Medications Active Medications: Active Medications Generic Name Dose Route Start Last Admin Trade Name Freq PRN Reason Stop Dose Admin Acetaminophen 650 mg 07/08/18 18:18 07/14/18 12:29 Tylenol 650mg/20.3ml Solution Ud PO 650 mg Q6H PRN Administration Fever 101F Albuterol/Ipratropium 3 ml 07/03/18 14:00 07/19/18 07:24 Duoneb 3 Mg/0.5 Mg (3 Ml) Ud IH 3 ml [id number] SEEMA Administration Albuterol/Ipratropium 3 ml 07/03/18 11:04 07/11/18 23:55 Duoneb 3 Mg/0.5 Mg (3 Ml) Ud IH 3 ml Q2H PRN Administration Shortness of Breath Digoxin 0.125 mg 07/13/18 14:00 07/18/18 13:40 Lanoxin IVP 0.125 mg 1400 SEEMA Administration Diltiazem HCl 60 mg 07/17/18 14:00 07/19/18 09:06 Cardizem PO 60 mg TID SEEMA Administration Insulin Detemir 30 unit 07/17/18 10:39 07/18/18 22:18 Levemir SC 30 units HS [facility] Administration Insulin Human Regular 0 units 07/19/18 07:38 07/19/18 08:06 Humulin R Med SC 3 units ACHS [facility] Administration Protocol Pantoprazole Sodium 40 mg 07/03/18 14:15 07/19/18 09:06 Protonix Inj IVP 40 mg DAILY [facility] Administration Vitamin A 1 applic 07/13/18 16:53 Vitamin A&D TP Q8 PRN Dry mouth - Patient Studies Lab Studies: Microbiology Studies 07/13/18 10:00 Blood Culture - Final Blood-Venous NO GROWTH AFTER 5 DAYS 07/13/18 10:20 Blood Culture - Final Blood-Venous NO GROWTH AFTER 5 DAYS Gram Stain - Final TEST NOT PERFORMED Lab Studies 07/19/18 07/19/18 07/19/18 Range/Units 07:20 05:00 05:00 WBC (4.5-11.0) 10^3/uL RBC (3.5-6.1) 10^6/uL Hgb (14.0-18.0) g/dL Hct (42.0-52.0) % MCV (80.0-105.0) fl MCH (25.0-35.0) pg MCHC (31.0-37.0) g/dl RDW (11.5-14.5) % Plt Count (120.0-450.0) 10^3/uL Manual Plt Count (120-450) K/mm3 [facility] % (Auto) (1.0-6.0) % Eos % (Auto) (1.5-5.0) % Baso % (Auto) (0.0-3.0) % [facility] # (Auto) (0.1-0.6) Eos # (Auto) (0.0-0.7) Baso # (Auto) (0.0-2.0) K/mm3 Platelet Evaluation (NORMAL) PT 12.5 (9.4-12.5) SECONDS INR 1.09 Sodium 155 H (132-148) mmol/L Potassium 4.6 (3.6-5.0) mmol/L Chloride 126 H (98-107) mmol/L Carbon Dioxide 23 (21-33) mmol/L Anion Gap 11 (10-20) BUN 108 H (7-21) mg/dL Creatinine 2.2 H (0.8-1.5) mg/dl Est GFR ( Amer) 37 Est GFR (Non-Af Amer) 30 POC Glucose (mg/dL) 234 H (65-110) mg/dL Random Glucose 228 H (70-110) mg/dL Calcium 9.0 (8.4-10.5) mg/dL Total Bilirubin 0.7 (0.2-1.3) mg/dL AST 59 D (17-59) U/L ALT 76 H (7-56) U/L Alkaline Phosphatase 86 (38-126) U/L Total Protein 6.5 (5.8-8.3) g/dL Albumin 2.9 L (3.0-4.8) g/dL Globulin 3.5 gm/dL Albumin/Globulin Ratio 0.8 L (1.1-1.8) 07/19/18 07/18/18 07/18/18 Range/Units 05:00 23:30 21:41 WBC 17.3 H D (4.5-11.0) 10^3/uL RBC 3.68 (3.5-6.1) 10^6/uL Hgb 9.6 L (14.0-18.0) g/dL Hct 33.0 L (42.0-52.0) % MCV 89.7 (80.0-105.0) fl MCH 26.1 (25.0-35.0) pg MCHC 29.1 L (31.0-37.0) g/dl RDW 16.9 H (11.5-14.5) % Plt Count 20 L* (120.0-450.0) 10^3/uL Manual Plt Count 30 L* (120-450) K/mm3 [facility] % (Auto) 1.7 (1.0-6.0) % Eos % (Auto) 0.0 L (1.5-5.0) % Baso % (Auto) 0.0 (0.0-3.0) % [facility] # (Auto) 0.3 (0.1-0.6) Eos # (Auto) 0.0 (0.0-0.7) Baso # (Auto) 0.00 (0.0-2.0) K/mm3 Platelet Evaluation Low (NORMAL) PT (9.4-12.5) SECONDS INR Sodium 154 H (132-148) mmol/L Potassium 4.5 (3.6-5.0) mmol/L Chloride 127 H (98-107) mmol/L Carbon Dioxide 22 (21-33) mmol/L Anion Gap 10 (10-20) BUN 106 H (7-21) mg/dL Creatinine 2.1 H (0.8-1.5) mg/dl Est GFR ( Amer) 39 Est GFR (Non-Af Amer) 32 POC Glucose (mg/dL) 170 H (65-110) mg/dL Random Glucose 223 H (70-110) mg/dL Calcium 8.7 (8.4-10.5) mg/dL Total Bilirubin (0.2-1.3) mg/dL AST (17-59) U/L ALT (7-56) U/L Alkaline Phosphatase (38-126) U/L Total Protein (5.8-8.3) g/dL Albumin (3.0-4.8) g/dL Globulin gm/dL Albumin/Globulin Ratio (1.1-1.8) 07/18/18 07/18/18 07/18/18 Range/Units 19:18 18:12 17:25 WBC (4.5-11.0) 10^3/uL RBC (3.5-6.1) 10^6/uL Hgb (14.0-18.0) g/dL Hct (42.0-52.0) % MCV (80.0-105.0) fl MCH (25.0-35.0) pg MCHC (31.0-37.0) g/dl RDW (11.5-14.5) % Plt Count (120.0-450.0) 10^3/uL Manual Plt Count (120-450) K/mm3 [facility] % (Auto) (1.0-6.0) % Eos % (Auto) (1.5-5.0) % Baso % (Auto) (0.0-3.0) % [facility] # (Auto) (0.1-0.6) Eos # (Auto) (0.0-0.7) Baso # (Auto) (0.0-2.0) K/mm3 Platelet Evaluation (NORMAL) PT (9.4-12.5) SECONDS INR Sodium 153 H (132-148) mmol/L Potassium 4.5 (3.6-5.0) mmol/L Chloride 126 H (98-107) mmol/L Carbon Dioxide 20 L (21-33) mmol/L Anion Gap 12 (10-20) BUN 103 H (7-21) mg/dL Creatinine 1.9 H (0.8-1.5) mg/dl Est GFR ( Amer) 44 Est GFR (Non-Af Amer) 36 POC Glucose (mg/dL) 153 H 176 H (65-110) mg/dL Random Glucose 182 H (70-110) mg/dL Calcium 8.6 (8.4-10.5) mg/dL Total Bilirubin (0.2-1.3) mg/dL AST (17-59) U/L ALT (7-56) U/L Alkaline Phosphatase (38-126) U/L Total Protein (5.8-8.3) g/dL Albumin (3.0-4.8) g/dL Globulin gm/dL Albumin/Globulin Ratio (1.1-1.8) 07/18/18 07/18/18 07/18/18 Range/Units 17:15 16:12 14:48 WBC (4.5-11.0) 10^3/uL RBC (3.5-6.1) 10^6/uL Hgb (14.0-18.0) g/dL Hct (42.0-52.0) % MCV (80.0-105.0) fl MCH (25.0-35.0) pg MCHC (31.0-37.0) g/dl RDW (11.5-14.5) % Plt Count (120.0-450.0) 10^3/uL Manual Plt Count (120-450) K/mm3 [facility] % (Auto) (1.0-6.0) % Eos % (Auto) (1.5-5.0) % Baso % (Auto) (0.0-3.0) % [facility] # (Auto) (0.1-0.6) Eos # (Auto) (0.0-0.7) Baso # (Auto) (0.0-2.0) K/mm3 Platelet Evaluation (NORMAL) PT (9.4-12.5) SECONDS INR Sodium (132-148) mmol/L Potassium (3.6-5.0) mmol/L Chloride (98-107) mmol/L Carbon Dioxide (21-33) mmol/L Anion Gap (10-20) BUN (7-21) mg/dL Creatinine (0.8-1.5) mg/dl Est GFR ( Amer) Est GFR (Non-Af Amer) POC Glucose (mg/dL) 184 H 218 H 268 H (65-110) mg/dL Random Glucose (70-110) mg/dL Calcium (8.4-10.5) mg/dL Total Bilirubin (0.2-1.3) mg/dL AST (17-59) U/L ALT (7-56) U/L Alkaline Phosphatase (38-126) U/L Total Protein (5.8-8.3) g/dL Albumin (3.0-4.8) g/dL Globulin gm/dL Albumin/Globulin Ratio (1.1-1.8) 07/18/18 07/18/18 07/18/18 Range/Units 13:57 12:53 12:04 WBC (4.5-11.0) 10^3/uL RBC (3.5-6.1) 10^6/uL Hgb (14.0-18.0) g/dL Hct (42.0-52.0) % MCV (80.0-105.0) fl MCH (25.0-35.0) pg MCHC (31.0-37.0) g/dl RDW (11.5-14.5) % Plt Count (120.0-450.0) 10^3/uL Manual Plt Count (120-450) K/mm3 [facility] % (Auto) (1.0-6.0) % Eos % (Auto) (1.5-5.0) % Baso % (Auto) (0.0-3.0) % [facility] # (Auto) (0.1-0.6) Eos # (Auto) (0.0-0.7) Baso # (Auto) (0.0-2.0) K/mm3 Platelet Evaluation (NORMAL) PT (9.4-12.5) SECONDS INR Sodium (132-148) mmol/L Potassium (3.6-5.0) mmol/L Chloride (98-107) mmol/L Carbon Dioxide (21-33) mmol/L Anion Gap (10-20) BUN (7-21) mg/dL Creatinine (0.8-1.5) mg/dl Est GFR ( Amer) Est GFR (Non-Af Amer) POC Glucose (mg/dL) 271 H 352 H 381 H (65-110) mg/dL Random Glucose (70-110) mg/dL Calcium (8.4-10.5) mg/dL Total Bilirubin (0.2-1.3) mg/dL AST (17-59) U/L ALT (7-56) U/L Alkaline Phosphatase (38-126) U/L Total Protein (5.8-8.3) g/dL Albumin (3.0-4.8) g/dL Globulin gm/dL Albumin/Globulin Ratio (1.1-1.8) 07/18/18 Range/Units 11:21 WBC (4.5-11.0) 10^3/uL RBC (3.5-6.1) 10^6/uL Hgb (14.0-18.0) g/dL Hct (42.0-52.0) % MCV (80.0-105.0) fl MCH (25.0-35.0) pg MCHC (31.0-37.0) g/dl RDW (11.5-14.5) % Plt Count (120.0-450.0) 10^3/uL Manual Plt Count (120-450) K/mm3 [facility] % (Auto) (1.0-6.0) % Eos % (Auto) (1.5-5.0) % Baso % (Auto) (0.0-3.0) % [facility] # (Auto) (0.1-0.6) Eos # (Auto) (0.0-0.7) Baso # (Auto) (0.0-2.0) K/mm3 Platelet Evaluation (NORMAL) PT (9.4-12.5) SECONDS INR Sodium (132-148) mmol/L Potassium (3.6-5.0) mmol/L Chloride (98-107) mmol/L Carbon Dioxide (21-33) mmol/L Anion Gap (10-20) BUN (7-21) mg/dL Creatinine (0.8-1.5) mg/dl Est GFR ( Amer) Est GFR (Non-Af Amer) POC Glucose (mg/dL) 431 H* (65-110) mg/dL Random Glucose (70-110) mg/dL Calcium (8.4-10.5) mg/dL Total Bilirubin (0.2-1.3) mg/dL AST (17-59) U/L ALT (7-56) U/L Alkaline Phosphatase (38-126) U/L Total Protein (5.8-8.3) g/dL Albumin (3.0-4.8) g/dL Globulin gm/dL Albumin/Globulin Ratio (1.1-1.8) Laboratory Results - last 24 hr 07/18/18 07/18/18 07/18/18 11:21 12:04 12:53 WBC RBC Hgb Hct MCV MCH MCHC RDW Plt Count Manual Plt Count [facility] % (Auto) E[facility] % (Auto) Baso % (Auto) [facility] # (Auto) Eos # (Auto) Baso # (Auto) Platelet Evaluation PT INR Sodium Potassium Chloride Carbon Dioxide Anion Gap BUN Creatinine Est GFR ( Amer) Est GFR (Non-Af Amer) POC Glucose (mg/dL) 431 H* 381 H 352 H Random Glucose Calcium Total Bilirubin AST ALT Alkaline Phosphatase Total Protein Albumin Globulin Albumin/Globulin Ratio 07/18/18 07/18/18 07/18/18 13:57 14:48 16:12 WBC RBC Hgb Hct MCV MCH MCHC RDW Plt Count Manual Plt Count [facility] % (Auto) Eos % (Auto) Baso % (Auto) [facility] # (Auto) Eos # (Auto) Baso # (Auto) Platelet Evaluation PT INR Sodium Potassium Chloride Carbon Dioxide Anion Gap BUN Creatinine Est GFR ( Amer) Est GFR (Non-Af Amer) POC Glucose (mg/dL) 271 H 268 H 218 H Random Glucose Calcium Total Bilirubin AST ALT Alkaline Phosphatase Total Protein Albumin Globulin Albumin/Globulin Ratio 07/18/18 07/18/18 07/18/18 17:15 17:25 18:12 WBC RBC Hgb Hct MCV MCH MCHC RDW Plt Count Manual Plt Count [facility] % (Auto) Eos % (Auto) Baso % (Auto) [facility] # (Auto) Eos # (Auto) Baso # (Auto) Platelet Evaluation PT INR Sodium 153 H Potassium 4.5 Chloride 126 H Carbon Dioxide 20 L Anion Gap 12 BUN 103 H Creatinine 1.9 H Est GFR ( Amer) 44 Est GFR (Non-Af Amer) 36 POC Glucose (mg/dL) 184 H 176 H Random Glucose 182 H Calcium 8.6 Total Bilirubin AST ALT Alkaline Phosphatase Total Protein Albumin Globulin Albumin/Globulin Ratio 07/18/18 07/18/18 07/18/18 19:18 21:41 23:30 WBC RBC Hgb Hct MCV MCH MCHC RDW Plt Count Manual Plt Count [facility] % (Auto) Eos % (Auto) Baso % (Auto) [facility] # (Auto) Eos # (Auto) Baso # (Auto) Platelet Evaluation PT INR Sodium 154 H Potassium 4.5 Chloride 127 H Carbon Dioxide 22 Anion Gap 10 BUN 106 H Creatinine 2.1 H Est GFR ( Amer) 39 Est GFR (Non-Af Amer) 32 POC Glucose (mg/dL) 153 H 170 H Random Glucose 223 H Calcium 8.7 Total Bilirubin AST ALT Alkaline Phosphatase Total Protein Albumin Globulin Albumin/Globulin Ratio 07/19/18 07/19/18 07/19/18 05:00 05:00 05:00 WBC 17.3 H D RBC 3.68 Hgb 9.6 L Hct 33.0 L MCV 89.7 MCH 26.1 MCHC 29.1 L RDW 16.9 H Plt Count 20 L* Manual Plt Count 30 L* [facility] % (Auto) 1.7 Eos % (Auto) 0.0 L Baso % (Auto) 0.0 [facility] # (Auto) 0.3 Eos # (Auto) 0.0 Baso # (Auto) 0.00 Platelet Evaluation Low PT 12.5 INR 1.09 Sodium 155 H Potassium 4.6 Chloride 126 H Carbon Dioxide 23 Anion Gap 11 BUN 108 H Creatinine 2.2 H Est GFR ( Amer) 37 Est GFR (Non-Af Amer) 30 POC Glucose (mg/dL) Random Glucose 228 H Calcium 9.0 Total Bilirubin 0.7 AST 59 D ALT 76 H Alkaline Phosphatase 86 Total Protein 6.5 Albumin 2.9 L Globulin 3.5 Albumin/Globulin Ratio 0.8 L 07/19/18 07:20 WBC RBC Hgb Hct MCV MCH MCHC RDW Plt Count Manual Plt Count [facility] % (Auto) Eos % (Auto) Baso % (Auto) [facility] # (Auto) Eos # (Auto) Baso # (Auto) Platelet Evaluation PT INR Sodium Potassium Chloride Carbon Dioxide Anion Gap BUN Creatinine Est GFR ( Amer) Est GFR (Non-Af Amer) POC Glucose (mg/dL) 234 H Random Glucose Calcium Total Bilirubin AST ALT Alkaline Phosphatase Total Protein Albumin Globulin Albumin/Globulin Ratio Radiology Impressions: Radiology Impressions Chest X-Ray 07/19/18 06:00 IMPRESSION: No active disease. No significant interval change compared to the prior examination(s). Critical Care Progress Note - Nutrition Nutrition: Nutrition Category Date Time Status NPO Diet [DIET] Diets 07/06/18 Breakfast Ordered Assessment/Plan - Assessment and Plan (Free Text) Assessment: Patient seen and examined on rounds, with resident, agree with note with following additions/exceptions: Patient is 62yo male with PMhx of COPD, active smoker 2pks per day, HTN, DM, PVD, admitted for hypoxic respiratory failure, 2/2 Influenza PNA, and superimposed bacterial PNA. Pt is currently extubated, on 3LNC, not on Vasopressor support. Pt's with chornic thrombocytopenia, no clinical evidence of overt bleeding Adequate UOP Patient with CIP Pt awake, alert, non conversive Na uptrending, will increase free water via NGT No further HD sessions planned PNA ARDS FLU MODS Renal failure, s/p HD Thrombocytopenia rule out ITP/TTP COPD HTN PVD DM Recommend: - cont with supp o2 as needed, goal sat 90% - Conservative fluid management - monitor off abx, finished course of broad spectrum abx - BP control - monitor LFTs - FS control, start insulin drip - I/Os - DC D5W - Free water flushes 500cc Q6hr - follow up cardio - GI ppx - DVT ppx - Monitor in MICU
--- NOTE | 2018-07-19 10:32 | RAD ---
Date of service: 07/19/2018 HISTORY: f/u COMPARISON: Multiple serial examinations preceding the most recent study: July 18, 2018. FINDINGS: LUNGS: No active pulmonary disease. Asymmetry of infrahilar pulmonary parenchyma which I believe is technical rather than a new or evolving left lower lobe infiltrate. PLEURA: No significant pleural effusion identified, no pneumothorax apparent. CARDIOVASCULAR: No radiographic findings to suggest acute or significant cardiovascular disease. Atherosclerotic calcifications identified primarily aortic arch. OSSEOUS STRUCTURES: No significant abnormalities. VISUALIZED UPPER ABDOMEN: Normal. OTHER FINDINGS: None. IMPRESSION: No active disease. No significant interval change compared to the prior examination(s).
[2018-07-19 11:26] LABS: PLATELET COUNT MANUAL 30 K/mm3 (120-450)
--- NOTE | 2018-07-19 12:01 | PN ---
DATE: 07/19/2018 SUBJECTIVE: The patient is in bed in no acute distress. The patient is seen earlier today. He remains extubated, comfortable, mental status still poor. PHYSICAL EXAMINATION: VITAL SIGNS: Temperature is 99, blood pressure is 117/60, respiratory rate of 18. HEENT: Unremarkable. NECK: Supple. LUNGS: Decreased breath sounds. HEART: Normal, S1 and S2. ABDOMEN: Soft, nontender. LABORATORY DATA: Examination reveals the patient's white count of 17,300, hemoglobin of 9. BUN of 108, creatinine of 2.2. Urinalysis is noted. Chest x-ray is noted. ASSESSMENT AND PLAN: A 62-year-old male with severe sepsis, hypoxic respiratory failure status post ventilatory-dependent respiratory failure, [id number] renal failure, thrombocytopenia, severe right-sided community-acquired pneumonia, status post viral infection, influenza A, cerebrovascular accident, active smoker, chronic obstructive lung disease, hypertension, diabetes, peripheral vascular disease. Currently off antibiotics; however, the patient is at risk for developing nosocomial infections. This morning's white count did increase to 17,300. Review of orders reveals the patient to be off antibiotics. This morning's chest x-ray is pending. We will repeat subramanian cultures, blood, urine, and sputum. If there is any reports of diarrhea, we will send stool for the Clostridium difficile. We will also order a procalcitonin. We will review the chest x-ray and we will make a decision regarding restarting antibiotics, this is for leukocytosis. Pending repeat blood, urine, sputum, urinalysis, procalcitonin, and blood cultures. We will check on a repeat WBC count. I will make further recommendations. Satya Fernandes MD
[2018-07-19] MEDS: Digoxin 500 mcg/2ml (0.5 mg/2ml) Inj IVP SCH (13:10)
--- NOTE | 2018-07-19 20:11 | PN ---
SUBJECTIVE: The patient was seen and examined at the bedside in the ICU. No acute events overnight. He remains afebrile and hemodynamically stable. OBJECTIVE: VITAL SIGNS: Temperature 99.5, pulse 87, blood pressure 120/57, respiratory rate 24, and oxygen saturation 99% on 3L nasal cannula. GENERAL: No apparent distress. HEENT: PERRL, EOMI. No scleral icterus. NECK: No JVD. LUNGS: Coarse anterior breath sounds. CARDIOVASCULAR: Regular rate and rhythm. Normal S1 and S2. ABDOMEN: Normoactive bowel sounds. Soft and nondistended. EXTREMITIES: 1+ edema in all extremities with multiple areas of ecchymoses. NEUROLOGIC: Awake and alert, able to blink eyes appropriately to yes/no questions and track with eyes, attempting to speak when asked questions, unable to move extremities. LABORATORY DATA: WBC 17.3, hemoglobin 9.6, hematocrit 33, and platelets 30. Sodium 155, potassium 4.6, chloride 126, bicarb 23, BUN 108, creatinine 2.2, and glucose 228. Blood cultures negative. Urine cultures negative. ASSESSMENT: The patient is a 62-year-old man with multiple medical comorbidities who was admitted to ICU s/p intubation for acute hypoxic respiratory failure and severe sepsis secondary to community-acquired pneumonia and multiorgan system failure who is now s/p extubation. PLAN: 1. Acute hypoxic respiratory failure s/p extubation. Input from Dr. Burr and ICU team greatly appreciated. Continue with care as per ICU team. 2. Severe sepsis secondary to community-acquired pneumonia with influenza, resolving. Input from Dr. Fernandes is appreciated and the patient remains off antimicrobials. Cultures remain negative. 3. OG secondary to ATN, resolving. Input from Dr. Sullivan appreciated. 4. NSTEMI. Input from Dr. Saxena appreciated. The patient will likely require cardiac catheterization when medically stabilized. 5. Atrial fibrillation, new onset, rate controlled. Continue with Diltiazem and Digoxin. 6. Acute systolic heart failure. As above, the patient will require cardiac catheterization when medically stabilized. 7. Hypernatremia. Continue with free water boluses via NG tube. 8. 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 Input from Dr. Mcdaniels noted. The patient will require extensive physical therapy. 9. Transaminitis, likely secondary to shock liver in the setting of severe sepsis, resolved. 10. Thrombocytopenia secondary to ITP. Continue with care as per Dr. Estevez. 11. Normocytic anemia. Labs with stable H/H and no evidence of active bleed. 12. Type 2 diabetes mellitus. Continue Levemir 30 units SC at bedtime and insulin sliding scale. 13. Hypertension. 14. Pseudogout. 15. Anxiety disorder. 16. GERD. 17. Prophylaxis. Continue Protonix for GI prophylaxis and SCDs for DVT prophylaxis. CODE STATUS: Full code. Yassine Martinez MD MTDЮлия
[2018-07-19] MEDS: Insulin Detemir 100 units/ml Vial (Levemir) SC SCH (21:47)
--- NOTE | 2018-07-19 23:10 | CP.PCM.PN ---
Subjective - Date & Time of Evaluation Date of Evaluation: 07/18/18 Time of Evaluation: 21:00 - Subjective Subjective: no acute changes; unable to assess ROS; at bedside Objective - Vital Signs/Intake and Output Vital Signs (last 24 hours): Temp Pulse Resp BP Pulse Ox 100.8 F H 88 34 H 138/76 91 L 07/19/18 22:00 07/19/18 22:00 07/19/18 22:00 07/19/18 22:00 07/19/18 22:00 Intake and Output: 07/19/18 07/20/18 18:59 06:59 Intake Total 1080 Output Total 1600 Balance -520 - Medications Medications: Current Medications Acetaminophen (Tylenol 650mg/20.3ml Solution Ud) 650 mg PO Q6H PRN PRN Reason: Fever 101F Last Admin: 07/14/18 12:29 Dose: 650 mg Albuterol/Ipratropium (Duoneb 3 Mg/0.5 Mg (3 Ml) Ud) 3 ml IH [id number] [facility] Last Admin: 07/19/18 19:56 Dose: 3 ml Albuterol/Ipratropium (Duoneb 3 Mg/0.5 Mg (3 Ml) Ud) 3 ml IH Q2H PRN PRN Reason: Shortness of Breath Last Admin: 07/11/18 23:55 Dose: 3 ml Digoxin (Lanoxin) 0.125 mg IVP 1400 [facility]ON Last Admin: 07/19/18 13:10 Dose: 0.125 mg Diltiazem HCl (Cardizem) 60 mg PO TID [facility] Last Admin: 07/19/18 17:17 Dose: 60 mg Insulin Detemir (Levemir) 30 unit SC HS [facility] Last Admin: 07/19/18 21:47 Dose: 30 units Insulin Human Regular (Humulin R Med) 0 units SC ACHS [facility]; Protocol Last Admin: 07/19/18 21:48 Dose: 7 units Pantoprazole Sodium (Protonix Inj) 40 mg IVP DAILY [facility] Last Admin: 07/19/18 09:06 Dose: 40 mg Vitamin A (Vitamin A&D) 1 applic TP Q8 PRN PRN Reason: Dry mouth - Labs Labs: 07/19/18 05:00 07/19/18 05:00 PT 12.5 SECONDS (9.4-12.5) 07/19/18 05:00 INR 1.09 07/19/18 05:00 APTT 18.7 Seconds (25.1-36.5) L 07/06/18 11:54 - Constitutional Appears: Chronically Ill, Other - Head Exam Head Exam: ATRAUMATIC, NORMAL INSPECTION, NORMOCEPHALIC - Respiratory Exam Respiratory Exam: Clear to Ausculation Bilateral, NORMAL BREATHING PATTERN - Cardiovascular Exam Cardiovascular Exam: REGULAR RHYTHM, +S1, +S2. absent: Murmur - Extremities Exam Extremities Exam: Full ROM, Normal Capillary Refill, Normal Inspection. absent: Joint Swelling, Pedal Edema Assessment and Plan - Assessment and Plan (Free Text) Assessment: Mr. Damon is a 62 y/o man with pmhx significant for COPD, HTn; DM; PVD; and ITP admitted with ARDS in setting of NSTEMI and pneumonia now s/p extubation with anticoagulants held due to thrombocytopenia. -repeat coags -obtain peripheral semar -consider empiric treatment further with ITP with 40mg of Dex qd -consideration of restarting promacta -hold all NSAIDs and anticoagulants for plts <40 Zachary Estevez MD Hematology
--- NOTE | 2018-07-19 23:11 | CP.PCM.PN ---
Subjective - Date & Time of Evaluation Date of Evaluation: 07/19/18 Time of Evaluation: 21:00 - Subjective Subjective: at bedside. Unable to assess ROS Objective - Vital Signs/Intake and Output Vital Signs (last 24 hours): Temp Pulse Resp BP Pulse Ox 100.8 F H 88 34 H 138/76 91 L 07/19/18 22:00 07/19/18 22:00 07/19/18 22:00 07/19/18 22:00 07/19/18 22:00 Intake and Output: 07/19/18 07/20/18 18:59 06:59 Intake Total 1080 Output Total 1600 Balance -520 - Medications Medications: Current Medications Acetaminophen (Tylenol 650mg/20.3ml Solution Ud) 650 mg PO Q6H PRN PRN Reason: Fever 101F Last Admin: 07/14/18 12:29 Dose: 650 mg Albuterol/Ipratropium (Duoneb 3 Mg/0.5 Mg (3 Ml) Ud) 3 ml IH [id number] [facility] Last Admin: 07/19/18 19:56 Dose: 3 ml Albuterol/Ipratropium (Duoneb 3 Mg/0.5 Mg (3 Ml) Ud) 3 ml IH Q2H PRN PRN Reason: Shortness of Breath Last Admin: 07/11/18 23:55 Dose: 3 ml Digoxin (Lanoxin) 0.125 mg IVP 1400 J[facility]NO Last Admin: 07/19/18 13:10 Dose: 0.125 mg Diltiazem HCl (Cardizem) 60 mg PO TID [facility] Last Admin: 07/19/18 17:17 Dose: 60 mg Insulin Detemir (Levemir) 30 unit SC HS [facility] Last Admin: 07/19/18 21:47 Dose: 30 units Insulin Human Regular (Humulin R Med) 0 units SC ACHS [facility]; Protocol Last Admin: 07/19/18 21:48 Dose: 7 units Pantoprazole Sodium (Protonix Inj) 40 mg IVP DAILY [facility] Last Admin: 07/19/18 09:06 Dose: 40 mg Vitamin A (Vitamin A&D) 1 applic TP Q8 PRN PRN Reason: Dry mouth - Labs Labs: 07/19/18 05:00 07/19/18 05:00 PT 12.5 SECONDS (9.4-12.5) 07/19/18 05:00 INR 1.09 07/19/18 05:00 APTT 18.7 Seconds (25.1-36.5) L 07/06/18 11:54 - Constitutional Appears: Chronically Ill - Respiratory Exam Respiratory Exam: Clear to Ausculation Bilateral, NORMAL BREATHING PATTERN - Cardiovascular Exam Cardiovascular Exam: REGULAR RHYTHM, +S1, +S2. absent: Murmur - GI/Abdominal Exam GI & Abdominal Exam: Soft, Normal Bowel Sounds. absent: Tenderness - Extremities Exam Extremities Exam: Full ROM, Normal Capillary Refill, Normal Inspection. absent: Joint Swelling, Pedal Edema Assessment and Plan - Assessment and Plan (Free Text) Assessment: Mr. Damon is a 62 y/o man with pmhx significant for COPD, HTn; DM; PVD; and ITP admitted with ARDS in setting of NSTEMI and pneumonia now s/p extubation with anticoagulants held due to thrombocytopenia. -repeat coags -obtain peripheral semar -consider empiric treatment further with ITP with 40mg of Dex qd -consideration of restarting promacta -hold all NSAIDs and anticoagulants for plts <40 Zachary Estevez MD Hematology
[2018-07-19] MEDS: Acetaminophen 650mg/20.3ml solution UD PO PRN (23:17)
[2018-07-20] MEDS: Albuterol-Ipratrop 3 mg / 0.5 (3 ml) UD IH SCH ×4 (02:04→19:47)
[2018-07-20 04:16] LABS: PH,URINE 5.5 (4.7-8.0); URINE APPEARANCE SL CLOUDY (CLEAR); URINE BILIRUBIN NEGATIVE (NEGATIVE); URINE BLOOD MODERATE (NEGATIVE); URINE COLOR YELLOW (YELLOW); URINE GLUCOSE (UA) 500 mg/dL (NEGATIVE); URINE LEUKOCYTE ESTERASE NEGATIVE Leu/uL (NEGATIVE); URINE PROTEIN TRACE mg/dL (<30 mg/dL); URINE UROBILINOGEN 0.2 E.U./dL (<1 E.U./dL)
[2018-07-20 04:33] LABS: URINE WBC 0 - 2 /hpf (0-6)
[2018-07-20 04:34] LABS: URINE AMORPHOUS SEDIMENT SMALL /hpf; URINE BACTERIA SMALL /hpf
[2018-07-20 06:36] LABS: EOS % 0.1 % (1.5-5.0); GRAN # 16.42 (1.4-6.5); GRAN % 93.8 % (50.0-68.0); HEMOGLOBIN 9.6 g/dL (14.0-18.0); LYMPH # 0.9 (1.2-3.4); LYMPH % 4.9 % (22.0-35.0); MEAN CELL VOLUME 91.4 fl (80.0-105.0); MEAN CORPUSCULAR HEMOGLOBIN 25.7 pg (25.0-35.0); MEAN CORPUSCULAR HGB CONC 28.2 g/dl (31.0-37.0); MONO # 0.2 (0.1-0.6); MONO % 1.2 % (1.0-6.0); RBC 3.73 10^6/uL (3.5-6.1); RED CELL DISTRIBUTION WIDTH 17.5 % (11.5-14.5)
[2018-07-20 06:56] LABS: PLATELET COUNT 19 10^3/uL (120.0-450.0); WHITE BLOOD COUNT 17.5 10^3/uL (4.5-11.0)
[2018-07-20] MEDS: Insulin Reg-MEDIUM-Coverage SC SCH ×2 (08:03→12:00)
[2018-07-20 08:10] LABS: ALB/GLOB RATIO 0.8 (1.1-1.8); ALBUMIN 2.8 g/dL (3.0-4.8)
[2018-07-20 08:27] LABS: PLATELET COUNT MANUAL 24 K/mm3 (120-450)
--- NOTE | 2018-07-20 08:41 | PN ---
DATE: 07/18/2018 SUBJECTIVE: The patient remains off mechanical ventilation, but remains dyspneic at rest. PHYSICAL EXAMINATION: VITAL SIGNS: Remain stable. He has a low-grade fever that persists. His heart rate is 90, respiratory rate 24, blood pressure 130/70, O2 saturation 98% on nasal cannula. HEENT: Normocephalic, atraumatic. No jugular venous distension. No bruit. CARDIOVASCULAR: S1, S2 normal. No gallop is auscultated. There is a soft systolic ejection murmur at the lower left sternal border. CHEST: Global decrease in breath sounds. Minimal rhonchi throughout. No wheezing appreciated. ABDOMEN: Soft. Bowel sounds normoactive without mass, guarding, rebound or organomegaly. EXTREMITIES: Revealed edema throughout both lower extremities. There is no Homans sign. SKIN: No rash or excoriation. LABORATORY DATA: Chest x-ray done this morning reveals bilateral pulmonary infiltrates unchanged. No new blood gasses done yet this morning. CLINICAL IMPRESSION: 1. Respiratory failure. 2. Respiratory insufficiency. 3. Status post bilateral pneumonia. 4. Myocardial infarction. 5 Ischemic cardiomyopathy. 6. Renal insufficiency. 7. Thrombocytopenia. 8. Anemia. 9. Chronic obstructive pulmonary disease. PLAN: The patient needs further intervention to get him out of this predicament, vigorous nursing care, medical therapy is in order. Infectious Disease continued followup is important as well as continued followup of pulmonary vascular congestion and chronic obstructive pulmonary disease, renal insufficiency and hematologic abnormalities need further addressing as well. We will follow closely with you. The patient needs continued vigorous attention. Corey Sethi MD
--- NOTE | 2018-07-20 08:53 | PN ---
SUBJECTIVE: The patient was seen and examined at bedside in the ICU. No acute events overnight. He remains afebrile and largely clinically unchanged. OBJECTIVE: VITAL SIGNS: Temperature 100, pulse 90, blood pressure 121/56, respiratory rate 33, oxygen saturation 96% on 3L NC. GENERAL: Somnolent but arousable and no apparent distress. HEENT: PERRL, EOMI. No scleral icterus. NECK: No JVD. LUNGS: Coarse anterior breath sounds. CARDIOVASCULAR: Tachycardic. Normal S1, S2. ABDOMEN: Normoactive bowel sounds. Soft, nondistended. EXTREMITIES: 1+ edema in all extremities with multiple areas of ecchymoses. NEUROLOGIC: Somnolent but arousable, able to blink eyes appropriately to yes/no questions, unable to move extremities. LABORATORY DATA: WBC 17.5 with 94% neutrophils, hemoglobin 9.6, hematocrit 34, platelets 19. Sodium 157, potassium 5.3, chloride 130, bicarb 24, BUN 107, creatinine 2.3, glucose 502. Blood cultures negative. Urine cultures negative. ASSESSMENT: The patient is a 62-year-old man with multiple medical comorbidities who was admitted to the ICU s/p intubation for acute hypoxic respiratory failure and severe sepsis secondary to community-acquired pneumonia and multiorgan system failure who is now s/p extubation. PLAN: 1. Acute hypoxic respiratory failure s/p extubation. Continue with care as per Dr. Burr and ICU team. 2. Severe sepsis secondary to community-acquired pneumonia with influenza. Input from Dr. Fernandes appreciated and the patient remains off antimicrobials and with negative cultures. 3. Acute kidney injury secondary to ATN. Continue with care as per Dr. Sullivan. 4. NSTEMI. Input from Dr. Saxena appreciated. The patient will likely require cardiac catheterization when medically stabilized. 5. Atrial fibrillation, new onset, rate controlled. Continue with Diltiazem and Digoxin. 6. Acute systolic heart failure. As above, the patient will require cardiac catheterization when medically stabilized. 7. Hypernatremia. Continue with free water boluses via NG tube. The patient may require reinitiation of D5W infusion. 8. 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 Input from Dr. Mcdaniels appreciated. Continue with PT. 9. Transaminitis, likely secondary to shock liver in the setting of severe sepsis, resolved. 10. Thrombocytopenia secondary to ITP. Input from Dr. Estevez appreciated. Continue with care as per Dr. Estevez. 11. Normocytic anemia. Labs with stable H/H and no evidence of active bleed. 12. Type 2 diabetes mellitus. Continue with Levemir and insulin sliding scale. 13. Hypertension. 14. Pseudogout. 15. Anxiety disorder. 16. GERD. 17. Prophylaxis. Continue Protonix for GI prophylaxis and SCDs for DVT prophylaxis. CODE STATUS: Full code. Yassine Martinez MD MTDD
--- NOTE | 2018-07-20 09:01 | CP.PCM.PN ---
Objective - Vital Signs/Intake and Output Vital Signs (last 24 hours): Temp Pulse Resp BP Pulse Ox 99.1 F 91 H 31 H 144/76 100 07/20/18 08:00 07/20/18 08:00 07/20/18 08:00 07/20/18 08:00 07/20/18 08:00 Intake and Output: 07/20/18 07/20/18 06:59 18:59 Intake Total 480 Output Total 900 Balance -420 - Medications Medications: Current Medications Acetaminophen (Tylenol 650mg/20.3ml Solution Ud) 650 mg PO Q6H PRN PRN Reason: Fever 101F Last Admin: 07/19/18 23:17 Dose: 650 mg Albuterol/Ipratropium (Duoneb 3 Mg/0.5 Mg (3 Ml) Ud) 3 ml IH [id number] JHON Last Admin: 07/20/18 07:33 Dose: 3 ml Albuterol/Ipratropium (Duoneb 3 Mg/0.5 Mg (3 Ml) Ud) 3 ml IH Q2H PRN PRN Reason: Shortness of Breath Last Admin: 07/11/18 23:55 Dose: 3 ml Digoxin (Lanoxin) 0.125 mg IVP 1400 JHON Last Admin: 07/19/18 13:10 Dose: 0.125 mg Diltiazem HCl (Cardizem) 60 mg PO TID [facility] Last Admin: 07/19/18 17:17 Dose: 60 mg Insulin Detemir (Levemir) 30 unit SC HS [facility] Last Admin: 07/19/18 21:47 Dose: 30 units Insulin Human Regular (Humulin R Med) 0 units SC ACHS [facility]; Protocol Last Admin: 07/20/18 08:03 Dose: 10 units Pantoprazole Sodium (Protonix Inj) 40 mg IVP DAILY [facility] Last Admin: 07/19/18 09:06 Dose: 40 mg Vitamin A (Vitamin A&D) 1 applic TP Q8 PRN PRN Reason: Dry mouth - Labs Labs: 07/20/18 05:40 07/20/18 05:40 PT 12.5 SECONDS (9.4-12.5) 07/19/18 05:00 INR 1.09 07/19/18 05:00 APTT 18.7 Seconds (25.1-36.5) L 07/06/18 11:54
--- NOTE | 2018-07-20 10:09 | RAD ---
Date of service: 07/20/2018 HISTORY: f/u COMPARISON: 07/19/2018 FINDINGS: LUNGS: No active pulmonary disease. PLEURA: No significant pleural effusion identified, no pneumothorax apparent. CARDIOVASCULAR: No aortic atherosclerotic calcification present. Mild cardiomegaly no pulmonary vascular congestion. OSSEOUS STRUCTURES: No significant abnormalities. VISUALIZED UPPER ABDOMEN: Normal. OTHER FINDINGS: None. IMPRESSION: No active disease.
[2018-07-20] MEDS ORDERED: Insulin Regular 100 UNITS in Sodium Chloride 0.9% 99 ML IV PRN (10:11)
--- NOTE | 2018-07-20 10:35 | CP.CCUPN ---
<Dannie Yeh - Last Filed: 07/20/18 13:00> CCU Subjective - Physician Review Subjective (Free Text): 07/20/18 10:29 Dannie Yeh PGY1 Critical Care Progress Note CC: SOB Patient seen and examined at bedside this morning. Tmax of 100.2 overnight. Breathing on 3L NC and is lethargic during exam and flaccid. Elevated sodium and glucose this morning, will start 1/2NS @ 100cc/hr and insulin drip. 12 point ROS limited due to lethargic status. Will give one unit platelets today. CCU Objective - Vital Signs / Intake & Output Vital Signs (Last 4 hours): Vital Signs Temp Pulse Resp BP Pulse Ox 07/20/18 09:06 88 126/78 07/20/18 08:00 99.1 F 91 H 31 H 144/76 100 07/20/18 07:00 90 32 H 123/74 96 Intake and Output (Last 8hrs): Intake & Output 07/19/18 07/20/18 07/20/18 22:59 06:59 14:59 Intake Total 1080 480 Output Total 1600 900 Balance -520 -420 Intake: Oral 600 Tube Feeding 480 480 Output: Urine 1600 900 Urethral (Oliveros) 1600 900 Other: # Bowel Movements 0 - Physical Exam Head: Positive for: Atraumatic, Normocephalic Pupils: Positive for: PERRL Extroacular Muscles: Negative for: EOMI (unable to be assessed) Conjunctiva: Positive for: Normal Mouth: Positive for: Dry, Drooling Pharnyx: Positive for: Other (Extubated) Nose (External): Positive for: Other (Dobhoff in place in R nares, NC in place) Respiratory/Chest: Positive for: Clear to Auscultation, Decreased Breath Sounds. Negative for: Respiratory Distress, Wheezes, Tachypneic Cardiovascular: Positive for: Normal S1, S2, Irregular Rhythm. Negative for: Murmurs Abdomen: Positive for: Other (R femoral cath site removed yesterday, dressing c/d/i, without hematoma). Negative for: Tenderness, Peritoneal Signs, Guarding Back: Positive for: Normal Inspection Upper Extremity: Positive for: Normal Inspection, Other (Occasional spontaneous motor movement at this time in upper extremities). Negative for: Cyanosis, Edema Lower Extremity: Positive for: Edema (1+ pitting edema noted to right lower extremity; chronic diabetic ulcer noted to anterior anderson of left lower extremity ), Other (Occasional spontaneous motor movement at this time in lower extremities) Neurological: Negative for: GCS=15, CN II-XII Intact, Speech Normal Skin: Positive for: Warm, Dry, Normal Color, Other (Ecchymotic in R antecubital region, stable; ecchymoses at different levels of healing throughout extremities). Negative for: Rashes Psychiatric: Positive for: Alert (responds to verbal and painful stimuli). Negative for: Oriented x 3 (unable to coherently respond verbally), Normal Insight, Normal Concentration - Medications Active Medications: Active Medications Generic Name Dose Route Start Last Admin Trade Name Freq PRN Reason Stop Dose Admin Acetaminophen 650 mg 07/08/18 18:18 07/19/18 23:17 Tylenol 650mg/20.3ml Solution Ud PO 650 mg Q6H PRN Administration Fever 101F Albuterol/Ipratropium 3 ml 07/03/18 14:00 07/20/18 07:33 Duoneb 3 Mg/0.5 Mg (3 Ml) Ud IH 3 ml [id number] SEEMA Administration Albuterol/Ipratropium 3 ml 07/03/18 11:04 07/11/18 23:55 Duoneb 3 Mg/0.5 Mg (3 Ml) Ud IH 3 ml Q2H PRN Administration Shortness of Breath Digoxin 0.125 mg 07/13/18 14:00 07/19/18 13:10 Lanoxin IVP 0.125 mg 1400 SEEMA Administration Diltiazem HCl 60 mg 07/17/18 14:00 07/20/18 09:06 Cardizem PO 60 mg TID SEEMA Administration Sodium Chloride 1,000 mls @ 100 mls/hr 07/20/18 10:15 Sodium Chloride 0.45% IV .Q10H SEEMA Insulin Human Regular 100 100 mls @ 0 mls/hr 07/20/18 10:11 units/ Sodium Chloride IV .Q0M PRN TITRATE PER MD ORDER Protocol Titrate Insulin Detemir 30 unit 07/17/18 10:39 07/19/18 21:47 Levemir SC 30 units HS SEEMA Administration Insulin Human Regular 0 units 07/19/18 07:38 07/20/18 08:03 Humulin R Med SC 10 units ACHS SEEMA Administration Protocol Pantoprazole Sodium 40 mg 07/03/18 14:15 07/20/18 09:06 Protonix Inj IVP 40 mg DAILY SEEMA Administration Vitamin A 1 applic 07/13/18 16:53 Vitamin A&D TP Q8 PRN Dry mouth - Patient Studies Lab Studies: Lab Studies 07/20/18 07/20/18 07/20/18 Range/Units 05:40 05:40 05:40 WBC (4.5-11.0) 10^3/uL RBC (3.5-6.1) 10^6/uL Hgb (14.0-18.0) g/dL Hct (42.0-52.0) % MCV (80.0-105.0) fl MCH (25.0-35.0) pg MCHC (31.0-37.0) g/dl RDW (11.5-14.5) % Plt Count (120.0-450.0) 10^3/uL Manual Plt Count (120-450) K/mm3 Gran % (50.0-68.0) % Lymph % (Auto) (22.0-35.0) % Murray % (Auto) (1.0-6.0) % Eos % (Auto) (1.5-5.0) % Baso % (Auto) (0.0-3.0) % Gran # (1.4-6.5) Lymph # (Auto) (1.2-3.4) Murray # (Auto) (0.1-0.6) Eos # (Auto) (0.0-0.7) Baso # (Auto) (0.0-2.0) K/mm3 Sodium 157 H* (132-148) mmol/L Potassium 5.3 H (3.6-5.0) mmol/L Chloride 130 H (98-107) mmol/L Carbon Dioxide 24 (21-33) mmol/L Anion Gap 9 L (10-20) BUN 107 H (7-21) mg/dL Creatinine 2.3 H (0.8-1.5) mg/dl Est GFR ( Amer) 35 Est GFR (Non-Af Amer) 29 POC Glucose (mg/dL) (65-110) mg/dL Random Glucose 502 H* D (70-110) mg/dL Calcium 9.0 (8.4-10.5) mg/dL Phosphorus 5.7 H (2.5-4.5) mg/dL Magnesium 2.3 H (1.7-2.2) mg/dL Total Bilirubin 0.6 (0.2-1.3) mg/dL AST 78 H D (17-59) U/L ALT 107 H (7-56) U/L Alkaline Phosphatase 110 (38-126) U/L Total Protein 6.3 (5.8-8.3) g/dL Albumin 2.8 L (3.0-4.8) g/dL Globulin 3.5 gm/dL Albumin/Globulin Ratio 0.8 L (1.1-1.8) Procalcitonin (0.19-0.49) NG/ML Urine Color (YELLOW) Urine Appearance (CLEAR) Urine pH (4.7-8.0) Ur Specific [place] (1.005-1.035) Urine Protein (<30 mg/dL) mg/dL Urine Glucose (UA) (NEGATIVE) mg/dL Urine Ketones (NEGATIVE) mg/dL Urine Blood (NEGATIVE) Urine Nitrate (NEGATIVE) Urine Bilirubin (NEGATIVE) Urine Urobilinogen (<1 E.U./dL) E.U./dL Ur Leukocyte Esterase (NEGATIVE) Dani/uL Urine RBC (0-2) /hpf Urine WBC (0-6) /hpf Ur Epithelial Cells (0-5) /hpf Amorphous Sediment (NONE) /hpf Urine Bacteria (NONE) /hpf Digoxin 0.9 (0.8-2.0) ng/mL 07/20/18 07/20/18 07/19/18 Range/Units 05:40 03:40 21:19 WBC 17.5 H (4.5-11.0) 10^3/uL RBC 3.73 (3.5-6.1) 10^6/uL Hgb 9.6 L (14.0-18.0) g/dL Hct 34.1 L (42.0-52.0) % MCV 91.4 (80.0-105.0) fl MCH 25.7 (25.0-35.0) pg MCHC 28.2 L (31.0-37.0) g/dl RDW 17.5 H (11.5-14.5) % Plt Count 19 L* (120.0-450.0) 10^3/uL Manual Plt Count 24 L* (120-450) K/mm3 Gran % 93.8 H (50.0-68.0) % Lymph % (Auto) 4.9 L (22.0-35.0) % Murray % (Auto) 1.2 (1.0-6.0) % Eos % (Auto) 0.1 L (1.5-5.0) % Baso % (Auto) 0.0 (0.0-3.0) % Gran # 16.42 H (1.4-6.5) Lymph # (Auto) 0.9 L (1.2-3.4) Murray # (Auto) 0.2 (0.1-0.6) Eos # (Auto) 0.0 (0.0-0.7) Baso # (Auto) 0.00 (0.0-2.0) K/mm3 Sodium (132-148) mmol/L Potassium (3.6-5.0) mmol/L Chloride (98-107) mmol/L Carbon Dioxide (21-33) mmol/L Anion Gap (10-20) BUN (7-21) mg/dL Creatinine (0.8-1.5) mg/dl Est GFR ( Amer) Est GFR (Non-Af Amer) POC Glucose (mg/dL) 343 H (65-110) mg/dL Random Glucose (70-110) mg/dL Calcium (8.4-10.5) mg/dL Phosphorus (2.5-4.5) mg/dL Magnesium (1.7-2.2) mg/dL Total Bilirubin (0.2-1.3) mg/dL AST (17-59) U/L ALT (7-56) U/L Alkaline Phosphatase (38-126) U/L Total Protein (5.8-8.3) g/dL Albumin (3.0-4.8) g/dL Globulin gm/dL Albumin/Globulin Ratio (1.1-1.8) Procalcitonin (0.19-0.49) NG/ML Urine Color Yellow (YELLOW) Urine Appearance Sl cloudy (CLEAR) Urine pH 5.5 (4.7-8.0) Ur Specific [place] 1.015 (1.005-1.035) Urine Protein Trace H (<30 mg/dL) mg/dL Urine Glucose (UA) 500 H (NEGATIVE) mg/dL Urine Ketones Negative (NEGATIVE) mg/dL Urine Blood Moderate H (NEGATIVE) Urine Nitrate Negative (NEGATIVE) Urine Bilirubin Negative (NEGATIVE) Urine Urobilinogen 0.2 (<1 E.U./dL) E.U./dL Ur Leukocyte Esterase Negative (NEGATIVE) Dani/uL Urine RBC 1 - 3 H (0-2) /hpf Urine WBC 0 - 2 (0-6) /hpf Ur Epithelial Cells 3 - 4 (0-5) /hpf Amorphous Sediment Small (NONE) /hpf Urine Bacteria Small (NONE) /hpf Digoxin (0.8-2.0) ng/mL 07/19/18 07/19/18 07/19/18 Range/Units 16:46 11:25 10:55 WBC (4.5-11.0) 10^3/uL RBC (3.5-6.1) 10^6/uL Hgb (14.0-18.0) g/dL Hct (42.0-52.0) % MCV (80.0-105.0) fl MCH (25.0-35.0) pg MCHC (31.0-37.0) g/dl RDW (11.5-14.5) % Plt Count (120.0-450.0) 10^3/uL Manual Plt Count (120-450) K/mm3 Gran % (50.0-68.0) % Lymph % (Auto) (22.0-35.0) % Murray % (Auto) (1.0-6.0) % Eos % (Auto) (1.5-5.0) % Baso % (Auto) (0.0-3.0) % Gran # (1.4-6.5) Lymph # (Auto) (1.2-3.4) Murray # (Auto) (0.1-0.6) Eos # (Auto) (0.0-0.7) Baso # (Auto) (0.0-2.0) K/mm3 Sodium (132-148) mmol/L Potassium (3.6-5.0) mmol/L Chloride (98-107) mmol/L Carbon Dioxide (21-33) mmol/L Anion Gap (10-20) BUN (7-21) mg/dL Creatinine (0.8-1.5) mg/dl Est GFR ( Amer) Est GFR (Non-Af Amer) POC Glucose (mg/dL) 305 H 271 H (65-110) mg/dL Random Glucose (70-110) mg/dL Calcium (8.4-10.5) mg/dL Phosphorus (2.5-4.5) mg/dL Magnesium (1.7-2.2) mg/dL Total Bilirubin (0.2-1.3) mg/dL AST (17-59) U/L ALT (7-56) U/L Alkaline Phosphatase (38-126) U/L Total Protein (5.8-8.3) g/dL Albumin (3.0-4.8) g/dL Globulin gm/dL Albumin/Globulin Ratio (1.1-1.8) Procalcitonin 0.16 L (0.19-0.49) NG/ML Urine Color (YELLOW) Urine Appearance (CLEAR) Urine pH (4.7-8.0) Ur Specific [place] (1.005-1.035) Urine Protein (<30 mg/dL) mg/dL Urine Glucose (UA) (NEGATIVE) mg/dL Urine Ketones (NEGATIVE) mg/dL Urine Blood (NEGATIVE) Urine Nitrate (NEGATIVE) Urine Bilirubin (NEGATIVE) Urine Urobilinogen (<1 E.U./dL) E.U./dL Ur Leukocyte Esterase (NEGATIVE) Dani/uL Urine RBC (0-2) /hpf Urine WBC (0-6) /hpf Ur Epithelial Cells (0-5) /hpf Amorphous Sediment (NONE) /hpf Urine Bacteria (NONE) /hpf Digoxin (0.8-2.0) ng/mL 07/19/18 07/19/18 07/18/18 Range/Units 07:20 05:00 21:41 WBC (4.5-11.0) 10^3/uL RBC (3.5-6.1) 10^6/uL Hgb (14.0-18.0) g/dL Hct (42.0-52.0) % MCV (80.0-105.0) fl MCH (25.0-35.0) pg MCHC (31.0-37.0) g/dl RDW (11.5-14.5) % Plt Count (120.0-450.0) 10^3/uL Manual Plt Count 30 L* (120-450) K/mm3 Gran % (50.0-68.0) % Lymph % (Auto) (22.0-35.0) % Murray % (Auto) (1.0-6.0) % Eos % (Auto) (1.5-5.0) % Baso % (Auto) (0.0-3.0) % Gran # (1.4-6.5) Lymph # (Auto) (1.2-3.4) Murray # (Auto) (0.1-0.6) Eos # (Auto) (0.0-0.7) Baso # (Auto) (0.0-2.0) K/mm3 Sodium (132-148) mmol/L Potassium (3.6-5.0) mmol/L Chloride (98-107) mmol/L Carbon Dioxide (21-33) mmol/L Anion Gap (10-20) BUN (7-21) mg/dL Creatinine (0.8-1.5) mg/dl Est GFR ( Amer) Est GFR (Non-Af Amer) POC Glucose (mg/dL) 234 H 170 H (65-110) mg/dL Random Glucose (70-110) mg/dL Calcium (8.4-10.5) mg/dL Phosphorus (2.5-4.5) mg/dL Magnesium (1.7-2.2) mg/dL Total Bilirubin (0.2-1.3) mg/dL AST (17-59) U/L ALT (7-56) U/L Alkaline Phosphatase (38-126) U/L Total Protein (5.8-8.3) g/dL Albumin (3.0-4.8) g/dL Globulin gm/dL Albumin/Globulin Ratio (1.1-1.8) Procalcitonin (0.19-0.49) NG/ML Urine Color (YELLOW) Urine Appearance (CLEAR) Urine pH (4.7-8.0) Ur Specific [place] (1.005-1.035) Urine Protein (<30 mg/dL) mg/dL Urine Glucose (UA) (NEGATIVE) mg/dL Urine Ketones (NEGATIVE) mg/dL Urine Blood (NEGATIVE) Urine Nitrate (NEGATIVE) Urine Bilirubin (NEGATIVE) Urine Urobilinogen (<1 E.U./dL) E.U./dL Ur Leukocyte Esterase (NEGATIVE) Dani/uL Urine RBC (0-2) /hpf Urine WBC (0-6) /hpf Ur Epithelial Cells (0-5) /hpf Amorphous Sediment (NONE) /hpf Urine Bacteria (NONE) /hpf Digoxin (0.8-2.0) ng/mL Laboratory Results - last 24 hr 07/18/18 07/19/18 07/19/18 21:41 05:00 07:20 WBC RBC Hgb Hct MCV MCH MCHC RDW Plt Count Manual Plt Count 30 L* Gran % Lymph % (Auto) Murray % (Auto) Eos % (Auto) Baso % (Auto) Gran # Lymph # (Auto) Murray # (Auto) Eos # (Auto) Baso # (Auto) Sodium Potassium Chloride Carbon Dioxide Anion Gap BUN Creatinine Est GFR ( Amer) Est GFR (Non-Af Amer) POC Glucose (mg/dL) 170 H 234 H Random Glucose Calcium Phosphorus Magnesium Total Bilirubin AST ALT Alkaline Phosphatase Total Protein Albumin Globulin Albumin/Globulin Ratio Procalcitonin Urine Color Urine Appearance Urine pH Ur Specific [place] Urine Protein Urine Glucose (UA) Urine Ketones Urine Blood Urine Nitrate Urine Bilirubin Urine Urobilinogen Ur Leukocyte Esterase Urine RBC Urine WBC Ur Epithelial Cells Amorphous Sediment Urine Bacteria Digoxin 07/19/18 07/19/18 07/19/18 10:55 11:25 16:46 WBC RBC Hgb Hct MCV MCH MCHC RDW Plt Count Manual Plt Count Gran % Lymph % (Auto) Murray % (Auto) Eos % (Auto) Baso % (Auto) Gran # Lymph # (Auto) Murray # (Auto) Eos # (Auto) Baso # (Auto) Sodium Potassium Chloride Carbon Dioxide Anion Gap BUN Creatinine Est GFR ( Amer) Est GFR (Non-Af Amer) POC Glucose (mg/dL) 271 H 305 H Random Glucose Calcium Phosphorus Magnesium Total Bilirubin AST ALT Alkaline Phosphatase Total Protein Albumin Globulin Albumin/Globulin Ratio Procalcitonin 0.16 L Urine Color Urine Appearance Urine pH Ur Specific [place] Urine Protein Urine Glucose (UA) Urine Ketones Urine Blood Urine Nitrate Urine Bilirubin Urine Urobilinogen Ur Leukocyte Esterase Urine RBC Urine WBC Ur Epithelial Cells Amorphous Sediment Urine Bacteria Digoxin 07/19/18 07/20/18 07/20/18 21:19 03:40 05:40 WBC 17.5 H RBC 3.73 Hgb 9.6 L Hct 34.1 L MCV 91.4 MCH 25.7 MCHC 28.2 L RDW 17.5 H Plt Count 19 L* Manual Plt Count 24 L* Gran % 93.8 H Lymph % (Auto) 4.9 L Murray % (Auto) 1.2 Eos % (Auto) 0.1 L Baso % (Auto) 0.0 Gran # 16.42 H Lymph # (Auto) 0.9 L Murray # (Auto) 0.2 Eos # (Auto) 0.0 Baso # (Auto) 0.00 Sodium Potassium Chloride Carbon Dioxide Anion Gap BUN Creatinine Est GFR ( Amer) Est GFR (Non-Af Amer) POC Glucose (mg/dL) 343 H Random Glucose Calcium Phosphorus Magnesium Total Bilirubin AST ALT Alkaline Phosphatase Total Protein Albumin Globulin Albumin/Globulin Ratio Procalcitonin Urine Color Yellow Urine Appearance Sl cloudy Urine pH 5.5 Ur Specific [place] 1.015 Urine Protein Trace H Urine Glucose (UA) 500 H Urine Ketones Negative Urine Blood Moderate H Urine Nitrate Negative Urine Bilirubin Negative Urine Urobilinogen 0.2 Ur Leukocyte Esterase Negative Urine RBC 1 - 3 H Urine WBC 0 - 2 Ur Epithelial Cells 3 - 4 Amorphous Sediment Small Urine Bacteria Small Digoxin 07/20/18 07/20/18 07/20/18 05:40 05:40 05:40 WBC RBC Hgb Hct MCV MCH MCHC RDW Plt Count Manual Plt Count Gran % Lymph % (Auto) Murray % (Auto) Eos % (Auto) Baso % (Auto) Gran # Lymph # (Auto) Murray # (Auto) Eos # (Auto) Baso # (Auto) Sodium 157 H* Potassium 5.3 H Chloride 130 H Carbon Dioxide 24 Anion Gap 9 L BUN 107 H Creatinine 2.3 H Est GFR ( Amer) 35 Est GFR (Non-Af Amer) 29 POC Glucose (mg/dL) Random Glucose 502 H* D Calcium 9.0 Phosphorus 5.7 H Magnesium 2.3 H Total Bilirubin 0.6 AST 78 H D ALT 107 H Alkaline Phosphatase 110 Total Protein 6.3 Albumin 2.8 L Globulin 3.5 Albumin/Globulin Ratio 0.8 L Procalcitonin Urine Color Urine Appearance Urine pH Ur Specific [place] Urine Protein Urine Glucose (UA) Urine Ketones Urine Blood Urine Nitrate Urine Bilirubin Urine Urobilinogen Ur Leukocyte Esterase Urine RBC Urine WBC Ur Epithelial Cells Amorphous Sediment Urine Bacteria Digoxin 0.9 Radiology Impressions: Radiology Impressions Chest X-Ray 07/19/18 06:00 IMPRESSION: No active disease. No significant interval change compared to the prior examination(s). Chest X-Ray 07/20/18 06:00 IMPRESSION: No active disease. Fingerstick Blood Sugar Results: 496 Critical Care Progress Note - Nutrition Nutrition: Nutrition Category Date Time Status NPO Diet [DIET] Diets 07/06/18 Breakfast Ordered Assessment/Plan - Assessment and Plan (Free Text) Assessment: 62 y/o male with PMHx of COPD, active smoker 1pk per day, HTN, DM, PVD, presents with ER with 2 day history of fever, chills, associated with cough that is non- productive. Patient was initially started on heparin drip given elevated troponin, and markedly diminished EF. Hep drip currently held secondary to thro mbocytopenia. Initially paralyzed on Nimbex after overbreathing ventilator. Extubated last week, ARDS resolved and s/p merrem and doxycycline antibiotic therapy for pneumonia. Plan: Neuro: Critical Illness Polyneuropathy - will likely need LTAC - Neuro consult - Dr. Harvinder Mcdaniels - Poor motor function likely from critical illness polyneuropathy - Results of EEG 07/10/18: moderate nonspecific diffuse disturbance of cortical activity, nonspecific diffuse fernandez matter dysfunction, no seizures, not in status epilepticus - 07/13/18 MRI brain without contrast negative for acute abnormalities - 07/10/18 CT head without contrast negative - lethargic, poor verbal response - Pt. responds to painful stimuli - Continuous and frequent PT daily- recs appreciated Pulmology CAP and Flu A positive - completed tamiflu and merrem/doxycycline treatment -CXR today shows no active disease -07/17/18 CXR shows Vascular congestion with left lower lobe perihilar infiltrate - Duonebs seema q6 and PRN q2 - Urine Lg and Strep negative - Procal is 0.16 on 07/19 from 0.6 on 07/14 - ID eval: Dr. Fernandes - Pulm consulted - Dr. Burr - Currently on 3L AR Cardiology NSTEMI -07/03 Troponins elevated 0.48, 0.67, 0.67 - Cardiology consulted - Dr. Saxena. Cardiac cath on hold due to persistent thrombocytopenia. Hold Lasix per cardio. - Continue Cardizem 60 mg PO TID and Dig for new onset A fib. Currently in NSR. - Dig level 07/20 is 0.9 WNL - Hold IVF d/t poor EF. - Hold Heparin drip HFrEF - BNP [id number] on 07/03 - 07/03/18 echo report shows EF 14.2%, mildly dilated LV, systolic function severely impaired, akinetic septum, moderate TR and pulm HTN -continue digoxin 0.125mg IV, cardizem 60mg TID Chronic Thrombocytopenia, ITP - Received previous transfusions as outpatient - PLT 10, manual count 24 today - Will transfuse if <20 or actively bleeding per Hem recs - Will hold off on DVT chemoprophylaxis at this time, may resume of platelets >50 per heme/onc - 4 unit PLT transfused, last transfusion on 07/10/18.. IV gammaglobulin 5 day course completed - Hem consult placed- Dr. Estevez - Negative IVONE and ANCA studies, ESR 45, HIT antibody negative - 07/08/18 Peripheral smear shows no atypical cells or immature forms. Mild anisopoikilocytosis. No schistocytes. No PL clumping although markedly reduced. Stable Normocytic Anemia - Hgb 9.6 this morning, no overt bleeding Endo Uncontrolled DM - glucose in the 500s this morning, started on insulin drip - Hgb a1c 8.2, accuchecks ACHS - Increased daily Levemir to 30 units HS yesterday - Diabetic education GI - Dobhoff in place, on Nepro and free water flushes - swallow eval 07/17/18: Pt. poorly responsive, with hyper gag reflex. No response to oral stimulation or spoon/straw tip. Open mouth posture for breathing - Lipid panel - TG elevated at 172 - Shock liver resolved - Hep panel negative - 07/03/18 RUQ U/S shows hepatosplenomegaly - protonic for PPX Nephro OG on HD - now off HD - Tolerated first HD on 07/07/18 - BUN/Cr stable, 107/2.3 from 108/2.3 yesterday. Hold ACEI/ARB - Strict Is and Os, oliveros in place - sodium is elevated at 157, started on 1/2 NS at 100cc - Nephro consult - recs appreciated - Continue water flushes per Nephro recs in light of low EF. - F/u nephro recs to consider repeating urine electrolytes ID - Tmax of 100.2 overnight, WBC count of 17.5. - s/p treatment of flu and pna with tamiflu and merrem/doxy - Ammonia level <9 - ID eval: Dr. Fernandes, monitor off antibiotic at this time - Repeat blood cx neg after 5 days, repeat UA negative, repeat sputum cx growing moderate amount of yeast. Dispo: will likely need LTAC placement Patient seen and case discussed with attending, Dr. Sung. <Golden Sung - Last Filed: 07/20/18 13:15> CCU Objective - Vital Signs / Intake & Output Vital Signs (Last 4 hours): Vital Signs Temp Pulse Resp BP Pulse Ox 07/20/18 11:01 99.9 F H 85 43 H 125/79 93 L 07/20/18 11:00 99.9 F H 84 49 H 94 L 07/20/18 10:00 99.5 F 86 50 H 123/69 93 L Intake and Output (Last 8hrs): Intake & Output 07/19/18 07/20/18 07/20/18 22:59 06:59 14:59 Intake Total 1080 480 Output Total 1600 900 Balance -520 -420 Intake: Oral 600 Tube Feeding 480 480 Output: Urine 1600 900 Urethral (Oliveros) 1600 900 Other: # Bowel Movements 0 - Medications Active Medications: Active Medications Generic Name Dose Route Start Last Admin Trade Name Freq PRN Reason Stop Dose Admin Acetaminophen 650 mg 07/08/18 18:18 07/19/18 23:17 Tylenol 650mg/20.3ml Solution Ud PO 650 mg Q6H PRN Administration Fever 101F Albuterol/Ipratropium 3 ml 07/03/18 14:00 07/20/18 13:08 Duoneb 3 Mg/0.5 Mg (3 Ml) Ud IH 3 ml [id number] SEEMA Administration Albuterol/Ipratropium 3 ml 07/03/18 11:04 07/11/18 23:55 Duoneb 3 Mg/0.5 Mg (3 Ml) Ud IH 3 ml Q2H PRN Administration Shortness of Breath Digoxin 0.125 mg 07/13/18 14:00 07/19/18 13:10 Lanoxin IVP 0.125 mg 1400 SEEMA Administration Diltiazem HCl 60 mg 07/17/18 14:00 07/20/18 09:06 Cardizem PO 60 mg TID SEEMA Administration Sodium Chloride 1,000 mls @ 100 mls/hr 07/20/18 10:15 07/20/18 12:15 Sodium Chloride 0.45% IV 100 mls/hr .Q10H SEEMA Administration Insulin Human Regular 100 100 mls @ 0 mls/hr 07/20/18 10:11 07/20/18 12:57 units/ Sodium Chloride IV 4 ml/hr .Q0M PRN 4 mls/hr TITRATE PER MD ORDER Administration Protocol Titrate Dexamethasone 40 mg/ Sodium 60 mls @ 120 mls/hr 07/20/18 12:00 07/20/18 12:52 Chloride IV 120 mls/hr DAILY SEEMA Administration Insulin Detemir 30 unit 07/17/18 10:39 07/19/18 21:47 Levemir SC 30 units HS SEEMA Administration Insulin Human Regular 0 units 07/19/18 07:38 07/20/18 12:00 Humulin R Med SC 8 units ACHS SEEMA Administration Protocol Non-Formulary Medication 75 mg 07/20/18 11:45 Eltrombopag Olamine [Promacta] PO DAILY SEEMA Pantoprazole Sodium 40 mg 07/03/18 14:15 07/20/18 09:06 Protonix Inj IVP 40 mg DAILY SEEMA Administration Vitamin A 1 applic 07/13/18 16:53 Vitamin A&D TP Q8 PRN Dry mouth - Patient Studies Lab Studies: Microbiology Studies 07/19/18 10:30 Blood Culture - Preliminary Blood NO GROWTH AFTER 24 HOURS 07/19/18 10:55 Blood Culture - Preliminary Blood NO GROWTH AFTER 24 HOURS Lab Studies 07/20/18 07/20/18 07/20/18 Range/Units 11:14 07:28 05:40 WBC (4.5-11.0) 10^3/uL RBC (3.5-6.1) 10^6/uL Hgb (14.0-18.0) g/dL Hct (42.0-52.0) % MCV (80.0-105.0) fl MCH (25.0-35.0) pg MCHC (31.0-37.0) g/dl RDW (11.5-14.5) % Plt Count (120.0-450.0) 10^3/uL Manual Plt Count (120-450) K/mm3 Gran % (50.0-68.0) % Lymph % (Auto) (22.0-35.0) % Murray % (Auto) (1.0-6.0) % Eos % (Auto) (1.5-5.0) % Baso % (Auto) (0.0-3.0) % Gran # (1.4-6.5) Lymph # (Auto) (1.2-3.4) Murray # (Auto) (0.1-0.6) Eos # (Auto) (0.0-0.7) Baso # (Auto) (0.0-2.0) K/mm3 Sodium (132-148) mmol/L Potassium (3.6-5.0) mmol/L Chloride (98-107) mmol/L Carbon Dioxide (21-33) mmol/L Anion Gap (10-20) BUN (7-21) mg/dL Creatinine (0.8-1.5) mg/dl Est GFR ( Amer) Est GFR (Non-Af Amer) POC Glucose (mg/dL) 385 H 496 H* (65-110) mg/dL Random Glucose (70-110) mg/dL Calcium (8.4-10.5) mg/dL Phosphorus 5.7 H (2.5-4.5) mg/dL Magnesium 2.3 H (1.7-2.2) mg/dL Total Bilirubin (0.2-1.3) mg/dL AST (17-59) U/L ALT (7-56) U/L Alkaline Phosphatase (38-126) U/L Total Protein (5.8-8.3) g/dL Albumin (3.0-4.8) g/dL Globulin gm/dL Albumin/Globulin Ratio (1.1-1.8) Procalcitonin (0.19-0.49) NG/ML Urine Color (YELLOW) Urine Appearance (CLEAR) Urine pH (4.7-8.0) Ur Specific [place] (1.005-1.035) Urine Protein (<30 mg/dL) mg/dL Urine Glucose (UA) (NEGATIVE) mg/dL Urine Ketones (NEGATIVE) mg/dL Urine Blood (NEGATIVE) Urine Nitrate (NEGATIVE) Urine Bilirubin (NEGATIVE) Urine Urobilinogen (<1 E.U./dL) E.U./dL Ur Leukocyte Esterase (NEGATIVE) Dani/uL Urine RBC (0-2) /hpf Urine WBC (0-6) /hpf Ur Epithelial Cells (0-5) /hpf Amorphous Sediment (NONE) /hpf Urine Bacteria (NONE) /hpf Digoxin (0.8-2.0) ng/mL 07/20/18 07/20/18 07/20/18 Range/Units 05:40 05:40 05:40 WBC 17.5 H (4.5-11.0) 10^3/uL RBC 3.73 (3.5-6.1) 10^6/uL Hgb 9.6 L (14.0-18.0) g/dL Hct 34.1 L (42.0-52.0) % MCV 91.4 (80.0-105.0) fl MCH 25.7 (25.0-35.0) pg MCHC 28.2 L (31.0-37.0) g/dl RDW 17.5 H (11.5-14.5) % Plt Count 19 L* (120.0-450.0) 10^3/uL Manual Plt Count 24 L* (120-450) K/mm3 Gran % 93.8 H (50.0-68.0) % Lymph % (Auto) 4.9 L (22.0-35.0) % Murray % (Auto) 1.2 (1.0-6.0) % Eos % (Auto) 0.1 L (1.5-5.0) % Baso % (Auto) 0.0 (0.0-3.0) % Gran # 16.42 H (1.4-6.5) Lymph # (Auto) 0.9 L (1.2-3.4) Murray # (Auto) 0.2 (0.1-0.6) Eos # (Auto) 0.0 (0.0-0.7) Baso # (Auto) 0.00 (0.0-2.0) K/mm3 Sodium 157 H* (132-148) mmol/L Potassium 5.3 H (3.6-5.0) mmol/L Chloride 130 H (98-107) mmol/L Carbon Dioxide 24 (21-33) mmol/L Anion Gap 9 L (10-20) BUN 107 H (7-21) mg/dL Creatinine 2.3 H (0.8-1.5) mg/dl Est GFR ( Amer) 35 Est GFR (Non-Af Amer) 29 POC Glucose (mg/dL) (65-110) mg/dL Random Glucose 502 H* D (70-110) mg/dL Calcium 9.0 (8.4-10.5) mg/dL Phosphorus (2.5-4.5) mg/dL Magnesium (1.7-2.2) mg/dL Total Bilirubin 0.6 (0.2-1.3) mg/dL AST 78 H D (17-59) U/L ALT 107 H (7-56) U/L Alkaline Phosphatase 110 (38-126) U/L Total Protein 6.3 (5.8-8.3) g/dL Albumin 2.8 L (3.0-4.8) g/dL Globulin 3.5 gm/dL Albumin/Globulin Ratio 0.8 L (1.1-1.8) Procalcitonin (0.19-0.49) NG/ML Urine Color (YELLOW) Urine Appearance (CLEAR) Urine pH (4.7-8.0) Ur Specific [place] (1.005-1.035) Urine Protein (<30 mg/dL) mg/dL Urine Glucose (UA) (NEGATIVE) mg/dL Urine Ketones (NEGATIVE) mg/dL Urine Blood (NEGATIVE) Urine Nitrate (NEGATIVE) Urine Bilirubin (NEGATIVE) Urine Urobilinogen (<1 E.U./dL) E.U./dL Ur Leukocyte Esterase (NEGATIVE) Dani/uL Urine RBC (0-2) /hpf Urine WBC (0-6) /hpf Ur Epithelial Cells (0-5) /hpf Amorphous Sediment (NONE) /hpf Urine Bacteria (NONE) /hpf Digoxin 0.9 (0.8-2.0) ng/mL 07/20/18 07/19/18 07/19/18 Range/Units 03:40 21:19 16:46 WBC (4.5-11.0) 10^3/uL RBC (3.5-6.1) 10^6/uL Hgb (14.0-18.0) g/dL Hct (42.0-52.0) % MCV (80.0-105.0) fl MCH (25.0-35.0) pg MCHC (31.0-37.0) g/dl RDW (11.5-14.5) % Plt Count (120.0-450.0) 10^3/uL Manual Plt Count (120-450) K/mm3 Gran % (50.0-68.0) % Lymph % (Auto) (22.0-35.0) % Murray % (Auto) (1.0-6.0) % Eos % (Auto) (1.5-5.0) % Baso % (Auto) (0.0-3.0) % Gran # (1.4-6.5) Lymph # (Auto) (1.2-3.4) Murray # (Auto) (0.1-0.6) Eos # (Auto) (0.0-0.7) Baso # (Auto) (0.0-2.0) K/mm3 Sodium (132-148) mmol/L Potassium (3.6-5.0) mmol/L Chloride (98-107) mmol/L Carbon Dioxide (21-33) mmol/L Anion Gap (10-20) BUN (7-21) mg/dL Creatinine (0.8-1.5) mg/dl Est GFR ( Amer) Est GFR (Non-Af Amer) POC Glucose (mg/dL) 343 H 305 H (65-110) mg/dL Random Glucose (70-110) mg/dL Calcium (8.4-10.5) mg/dL Phosphorus (2.5-4.5) mg/dL Magnesium (1.7-2.2) mg/dL Total Bilirubin (0.2-1.3) mg/dL AST (17-59) U/L ALT (7-56) U/L Alkaline Phosphatase (38-126) U/L Total Protein (5.8-8.3) g/dL Albumin (3.0-4.8) g/dL Globulin gm/dL Albumin/Globulin Ratio (1.1-1.8) Procalcitonin (0.19-0.49) NG/ML Urine Color Yellow (YELLOW) Urine Appearance Sl cloudy (CLEAR) Urine pH 5.5 (4.7-8.0) Ur Specific [place] 1.015 (1.005-1.035) Urine Protein Trace H (<30 mg/dL) mg/dL Urine Glucose (UA) 500 H (NEGATIVE) mg/dL Urine Ketones Negative (NEGATIVE) mg/dL Urine Blood Moderate H (NEGATIVE) Urine Nitrate Negative (NEGATIVE) Urine Bilirubin Negative (NEGATIVE) Urine Urobilinogen 0.2 (<1 E.U./dL) E.U./dL Ur Leukocyte Esterase Negative (NEGATIVE) Dani/uL Urine RBC 1 - 3 H (0-2) /hpf Urine WBC 0 - 2 (0-6) /hpf Ur Epithelial Cells 3 - 4 (0-5) /hpf Amorphous Sediment Small (NONE) /hpf Urine Bacteria Small (NONE) /hpf Digoxin (0.8-2.0) ng/mL 07/19/18 07/19/18 Range/Units 11:25 10:55 WBC (4.5-11.0) 10^3/uL RBC (3.5-6.1) 10^6/uL Hgb (14.0-18.0) g/dL Hct (42.0-52.0) % MCV (80.0-105.0) fl MCH (25.0-35.0) pg MCHC (31.0-37.0) g/dl RDW (11.5-14.5) % Plt Count (120.0-450.0) 10^3/uL Manual Plt Count (120-450) K/mm3 Gran % (50.0-68.0) % Lymph % (Auto) (22.0-35.0) % Murray % (Auto) (1.0-6.0) % Eos % (Auto) (1.5-5.0) % Baso % (Auto) (0.0-3.0) % Gran # (1.4-6.5) Lymph # (Auto) (1.2-3.4) Murray # (Auto) (0.1-0.6) Eos # (Auto) (0.0-0.7) Baso # (Auto) (0.0-2.0) K/mm3 Sodium (132-148) mmol/L Potassium (3.6-5.0) mmol/L Chloride (98-107) mmol/L Carbon Dioxide (21-33) mmol/L Anion Gap (10-20) BUN (7-21) mg/dL Creatinine (0.8-1.5) mg/dl Est GFR ( Amer) Est GFR (Non-Af Amer) POC Glucose (mg/dL) 271 H (65-110) mg/dL Random Glucose (70-110) mg/dL Calcium (8.4-10.5) mg/dL Phosphorus (2.5-4.5) mg/dL Magnesium (1.7-2.2) mg/dL Total Bilirubin (0.2-1.3) mg/dL AST (17-59) U/L ALT (7-56) U/L Alkaline Phosphatase (38-126) U/L Total Protein (5.8-8.3) g/dL Albumin (3.0-4.8) g/dL Globulin gm/dL Albumin/Globulin Ratio (1.1-1.8) Procalcitonin 0.16 L (0.19-0.49) NG/ML Urine Color (YELLOW) Urine Appearance (CLEAR) Urine pH (4.7-8.0) Ur Specific [place] (1.005-1.035) Urine Protein (<30 mg/dL) mg/dL Urine Glucose (UA) (NEGATIVE) mg/dL Urine Ketones (NEGATIVE) mg/dL Urine Blood (NEGATIVE) Urine Nitrate (NEGATIVE) Urine Bilirubin (NEGATIVE) Urine Urobilinogen (<1 E.U./dL) E.U./dL Ur Leukocyte Esterase (NEGATIVE) Dani/uL Urine RBC (0-2) /hpf Urine WBC (0-6) /hpf Ur Epithelial Cells (0-5) /hpf Amorphous Sediment (NONE) /hpf Urine Bacteria (NONE) /hpf Digoxin (0.8-2.0) ng/mL Laboratory Results - last 24 hr 07/19/18 07/19/18 07/19/18 10:55 11:25 16:46 WBC RBC Hgb Hct MCV MCH MCHC RDW Plt Count Manual Plt Count Gran % Lymph % (Auto) Murray % (Auto) Eos % (Auto) Baso % (Auto) Gran # Lymph # (Auto) Murray # (Auto) Eos # (Auto) Baso # (Auto) Sodium Potassium Chloride Carbon Dioxide Anion Gap BUN Creatinine Est GFR ( Amer) Est GFR (Non-Af Amer) POC Glucose (mg/dL) 271 H 305 H Random Glucose Calcium Phosphorus Magnesium Total Bilirubin AST ALT Alkaline Phosphatase Total Protein Albumin Globulin Albumin/Globulin Ratio Procalcitonin 0.16 L Urine Color Urine Appearance Urine pH Ur Specific [place] Urine Protein Urine Glucose (UA) Urine Ketones Urine Blood Urine Nitrate Urine Bilirubin Urine Urobilinogen Ur Leukocyte Esterase Urine RBC Urine WBC Ur Epithelial Cells Amorphous Sediment Urine Bacteria Digoxin 07/19/18 07/20/18 07/20/18 21:19 03:40 05:40 WBC 17.5 H RBC 3.73 Hgb 9.6 L Hct 34.1 L MCV 91.4 MCH 25.7 MCHC 28.2 L RDW 17.5 H Plt Count 19 L* Manual Plt Count 24 L* Gran % 93.8 H Lymph % (Auto) 4.9 L Murray % (Auto) 1.2 Eos % (Auto) 0.1 L Baso % (Auto) 0.0 Gran # 16.42 H Lymph # (Auto) 0.9 L Murray # (Auto) 0.2 Eos # (Auto) 0.0 Baso # (Auto) 0.00 Sodium Potassium Chloride Carbon Dioxide Anion Gap BUN Creatinine Est GFR ( Amer) Est GFR (Non-Af Amer) POC Glucose (mg/dL) 343 H Random Glucose Calcium Phosphorus Magnesium Total Bilirubin AST ALT Alkaline Phosphatase Total Protein Albumin Globulin Albumin/Globulin Ratio Procalcitonin Urine Color Yellow Urine Appearance Sl cloudy Urine pH 5.5 Ur Specific [place] 1.015 Urine Protein Trace H Urine Glucose (UA) 500 H Urine Ketones Negative Urine Blood Moderate H Urine Nitrate Negative Urine Bilirubin Negative Urine Urobilinogen 0.2 Ur Leukocyte Esterase Negative Urine RBC 1 - 3 H Urine WBC 0 - 2 Ur Epithelial Cells 3 - 4 Amorphous Sediment Small Urine Bacteria Small Digoxin 07/20/18 07/20/18 07/20/18 05:40 05:40 05:40 WBC RBC Hgb Hct MCV MCH MCHC RDW Plt Count Manual Plt Count Gran % Lymph % (Auto) Murray % (Auto) Eos % (Auto) Baso % (Auto) Gran # Lymph # (Auto) Murray # (Auto) Eos # (Auto) Baso # (Auto) Sodium 157 H* Potassium 5.3 H Chloride 130 H Carbon Dioxide 24 Anion Gap 9 L BUN 107 H Creatinine 2.3 H Est GFR ( Amer) 35 Est GFR (Non-Af Amer) 29 POC Glucose (mg/dL) Random Glucose 502 H* D Calcium 9.0 Phosphorus 5.7 H Magnesium 2.3 H Total Bilirubin 0.6 AST 78 H D ALT 107 H Alkaline Phosphatase 110 Total Protein 6.3 Albumin 2.8 L Globulin 3.5 Albumin/Globulin Ratio 0.8 L Procalcitonin Urine Color Urine Appearance Urine pH Ur Specific [place] Urine Protein Urine Glucose (UA) Urine Ketones Urine Blood Urine Nitrate Urine Bilirubin Urine Urobilinogen Ur Leukocyte Esterase Urine RBC Urine WBC Ur Epithelial Cells Amorphous Sediment Urine Bacteria Digoxin 0.9 07/20/18 07/20/18 07:28 11:14 WBC RBC Hgb Hct MCV MCH MCHC RDW Plt Count Manual Plt Count Gran % Lymph % (Auto) Murray % (Auto) Eos % (Auto) Baso % (Auto) Gran # Lymph # (Auto) Murray # (Auto) Eos # (Auto) Baso # (Auto) Sodium Potassium Chloride Carbon Dioxide Anion Gap BUN Creatinine Est GFR ( Amer) Est GFR (Non-Af Amer) POC Glucose (mg/dL) 496 H* 385 H Random Glucose Calcium Phosphorus Magnesium Total Bilirubin AST ALT Alkaline Phosphatase Total Protein Albumin Globulin Albumin/Globulin Ratio Procalcitonin Urine Color Urine Appearance Urine pH Ur Specific [place] Urine Protein Urine Glucose (UA) Urine Ketones Urine Blood Urine Nitrate Urine Bilirubin Urine Urobilinogen Ur Leukocyte Esterase Urine RBC Urine WBC Ur Epithelial Cells Amorphous Sediment Urine Bacteria Digoxin Radiology Impressions: Radiology Impressions Chest X-Ray 07/20/18 06:00 IMPRESSION: No active disease. Critical Care Progress Note - Nutrition Nutrition: Nutrition Category Date Time Status NPO Diet [DIET] Diets 07/06/18 Breakfast Ordered Assessment/Plan - Assessment and Plan (Free Text) Assessment: Patient seen and examined on rounds, with resident, agree with note with following additions/exceptions: Patient is 62yo male with PMhx of COPD, active smoker 2pks per day, HTN, DM, PVD, admitted for hypoxic respiratory failure, 2/2 Influenza PNA, and superimposed bacterial PNA. Pt is currently extubated, on 3LNC, not on Vasopressor support. Pt's with chornic thrombocytopenia, no clinical evidence of overt bleeding Adequate UOP Patient with CIP Pt awake, alert, non conversive Na uptrending, will start on 1/2NS No further HD sessions planned PNA ARDS FLU MODS Renal failure, s/p HD Thrombocytopenia rule out ITP/TTP COPD HTN PVD DM CIP Recommend: - cont with supp o2 as needed, goal sat 90% - Conservative fluid management - monitor off abx, finished course of broad spectrum abx - BP control - monitor LFTs - FS control, start insulin drip - I/Os - start 1/2 NS - start Decadron 40mg IV qd as per hematology - Free water flushes 200cc Q6hr - follow up cardio - GI ppx - DVT ppx - Monitor in MICU Patient needs long chain beamer rehab/Ltach
--- NOTE | 2018-07-20 11:24 | CP.PCM.PN ---
Subjective - Date & Time of Evaluation Date of Evaluation: 07/20/18 Time of Evaluation: 11:21 - Subjective Subjective: PGY-2 heme/onc progress note for Dr Zachary Estevez. Patient with low-grade fever overnight. Patient is not verbally responsive. Able to track finger. Appears very lethargic. ROS limited due to lethargic status. Objective - Vital Signs/Intake and Output Vital Signs (last 24 hours): Temp Pulse Resp BP Pulse Ox 99.1 F 88 31 H 126/78 100 07/20/18 08:00 07/20/18 09:06 07/20/18 08:00 07/20/18 09:06 07/20/18 08:00 Intake and Output: 07/20/18 07/20/18 06:59 18:59 Intake Total 480 Output Total 900 Balance -420 - Medications Medications: Current Medications Acetaminophen (Tylenol 650mg/20.3ml Solution Ud) 650 mg PO Q6H PRN PRN Reason: Fever 101F Last Admin: 07/19/18 23:17 Dose: 650 mg Albuterol/Ipratropium (Duoneb 3 Mg/0.5 Mg (3 Ml) Ud) 3 ml IH [id number] JHON Last Admin: 07/20/18 07:33 Dose: 3 ml Albuterol/Ipratropium (Duoneb 3 Mg/0.5 Mg (3 Ml) Ud) 3 ml IH Q2H PRN PRN Reason: Shortness of Breath Last Admin: 07/11/18 23:55 Dose: 3 ml Digoxin (Lanoxin) 0.125 mg IVP 1400 [facility] Last Admin: 07/19/18 13:10 Dose: 0.125 mg Diltiazem HCl (Cardizem) 60 mg PO TID [facility] Last Admin: 07/20/18 09:06 Dose: 60 mg Sodium Chloride (Sodium Chloride 0.45%) 1,000 mls @ 100 mls/hr IV .Q10H JHON Insulin Human Regular 100 (units/ Sodium Chloride) 100 mls @ 0 mls/hr IV .Q0M PRN; Protocol PRN Reason: TITRATE PER MD ORDER Insulin Detemir (Levemir) 30 unit SC HS [facility] Last Admin: 07/19/18 21:47 Dose: 30 units Insulin Human Regular (Humulin R Med) 0 units SC ACHS [facility]; Protocol Last Admin: 07/20/18 08:03 Dose: 10 units Pantoprazole Sodium (Protonix Inj) 40 mg IVP DAILY [facility] Last Admin: 07/20/18 09:06 Dose: 40 mg Vitamin A (Vitamin A&D) 1 applic TP Q8 PRN PRN Reason: Dry mouth - Labs Labs: 07/20/18 05:40 07/20/18 05:40 PT 12.5 SECONDS (9.4-12.5) 07/19/18 05:00 INR 1.09 07/19/18 05:00 APTT 18.7 Seconds (25.1-36.5) L 07/06/18 11:54 - Constitutional Appears: No Acute Distress, Older Than Stated Age, Chronically Ill - Head Exam Head Exam: ATRAUMATIC, NORMAL INSPECTION - Eye Exam Eye Exam: EOMI, PERRL. absent: Scleral icterus - ENT Exam ENT Exam: Mucous Membranes Moist Additional comments: Dobhoff in place in R nares, NC in place - Respiratory Exam Respiratory Exam: Decreased Breath Sounds, Clear to Ausculation Bilateral - Cardiovascular Exam Cardiovascular Exam: REGULAR RHYTHM, +S1, +S2. absent: JVD - GI/Abdominal Exam GI & Abdominal Exam: Soft, Normal Bowel Sounds Additional comments: R femoral cath removed, dressing c/d/i, without hematoma - Extremities Exam Extremities Exam: Normal Capillary Refill Additional comments: chronic diabetic ulcer noted to anterior anderson of left lower extremity Occasional spontaneous motor movement at this time in lower extremities - Neurological Exam Neurological Exam: Awake Additional comments: spontaneous motor movement at this time in upper extremities responds to verbal and painful stimuli unable to coherently respond verbally - Skin Skin Exam: Intact, Warm Additional comments: Ecchymotic in R antecubital region, stable; ecchymoses at different levels of healing throughout extremities Assessment and Plan - Assessment and Plan (Free Text) Plan: Mr. Damon is a 62 y/o man with pmhx significant for COPD, HTN; DM; PVD; and ITP admitted with ARDS in setting of NSTEMI and pneumonia/flu+ now s/p extubation with anticoagulants held due to thrombocytopenia: ITP -platelets 19, manual platelets 24, INR 1.09 -HIT antibody negative, MARCELO test negative -must rule-out MAHA and TTP -obtain peripheral smear, direct bilirubin -received 5 days of IVIG 07/07/2018 - 07/11/2018 given -start empiric treatment for ITP start dextromethasone 40mg iv qd -patient was previously on promacta outpatient - we will restart this medication now * Message was left for An to bring this medication from home Case discussed with Dr Zachary Estveez
[2018-07-20] MEDS ORDERED: Dexamethasone 20 mg / 5 ml Inj IVP SCH (11:45)
[2018-07-20] MEDS: Sodium Chloride 0.45% 1,000 ML IV SCH (12:15)
--- NOTE | 2018-07-20 12:23 | PN ---
DATE: 07/20/2018 SUBJECTIVE: The patient appears mildly to moderately short of breath this morning. He is in no acute distress. He is awake and alert. He does not follow commands. PHYSICAL EXAMINATION: VITAL SIGNS: Temperature 100, pulse 86, respiratory rate 24/26, blood pressure 121/56. Oxygen saturation on nasal cannula is 96%. HEENT: Normocephalic, atraumatic. NECK: No JVD. CARDIOVASCULAR: Systolic ejection murmur at the lower left sternal border. No S3 gallop. LUNGS: Decreased breath sounds at the bases. Minimal/less rhonchi. No wheezing. EXTREMITIES: Mild edema. No cyanosis. No clubbing. Calves are nontender to palpation. GI: Abdomen is soft, nontender and nondistended. Bowel sounds are positive. SKIN: No acute rash. NEUROLOGIC: Exam limited at the present time. 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 The chest x-ray continues to improve--- with further clearing of the pulmonary infiltrates. IMPRESSION: 1. Respiratory failure. 2. Bilateral pneumonia. 3. Rule out myocardial infarction. 4. Ischemic dilated cardiomyopathy 5. Renal failure. 6. Anemia, thrombocytopenia. 7. Chronic obstructive pulmonary disease. 8. Rule out critical illness polyneuropathy. PLAN: The patient is mildly to moderately short of breath this morning. He is in no acute distress. He appears awake and alert, but does not follow commands. He remains extremely weak with flaccid extremities. I did discuss the case with the night nurse at length. The night nurse stated that the patient had an uneventful night. I did review the chest x-ray as above. The chest x-ray continues to improve with decreased bilateral pulmonary infiltrates - almost completely resolved. The patient remains off antibiotic therapy - as per Infectious Disease. Input by Dr. Fernandes is noted. Low-grade temperatures persist. On physical exam, there is much less bronchospasm noted. I will continue with the current nebulizer treatment and aspiration precautions for now. Inputs by Hematology, Infectious Disease, and Cardiology are noted. Input by Neurology is also noted. Clinical status of the patient is significantly improved - compared to his initial presentation. However, again, the patient remains very guarded overall. I will discuss the above with the entire ICU team in the next few moments. I will discuss the above with the attending physician later this morning. Balta Burr MD Alfredo # [id number] MOE
[2018-07-20] MEDS: Dexamethasone 40 MG in Sodium Chloride 0.9% 50 ML IV SCH (12:52)
[2018-07-20] MEDS: Acetaminophen 650mg/20.3ml solution UD PO PRN (13:20)
[2018-07-20] MEDS: Digoxin 500 mcg/2ml (0.5 mg/2ml) Inj IVP SCH (13:21)
[2018-07-20 14:52] LABS: ARTERIAL BLOOD GAS HCO3 21.1 mmol/L (21-28); ARTERIAL BLOOD GAS HEMOGLOBIN 9.1 g/dL (11.7-17.4); ARTERIAL BLOOD GAS O2 CAPACITY 12.4 mL/dl (16-24); ARTERIAL BLOOD GAS O2 CONTENT 12.1 ML/dl (15-23); ARTERIAL BLOOD GAS O2 SAT 97.8 % (95-98); ARTERIAL BLOOD GAS PCO2 41 mm/Hg (35-45); ARTERIAL BLOOD GAS PH 7.32 (7.35-7.45); ARTERIAL BLOOD GAS TCO2 22.4 mmol.L (22-28)
--- NOTE | 2018-07-20 15:52 | PN ---
DATE: 07/20/2018 CARDIOLOGY FOLLOWUP SUBJECTIVE: The patient remains off the ventilator. He remains lethargic. PHYSICAL EXAMINATION: VITAL SIGNS: Blood pressure 126/76, heart rate is in the 80s. NECK: Negative JVD. LUNGS: Decreased breath sounds. HEART: Reveal S1, S2. EXTREMITIES: Without change. LABORATORY DATA: Include platelet count of 24,000, hemoglobin is 9.6. Chemistries, BUN and creatinine is 107 and 2.3. IMPRESSION: 1. Pneumonia. 2. Marked thrombocytopenia. 3. Status post respiratory failure. 4. Recent [id number]-RX-[id number] myocardial infarction. 5. End-stage renal disease. 6. Diabetes mellitus. Given these findings, the patient is on continued antibiotics for his infection. No plans for cardiac intervention at this time until his platelet count stabilizes and until his sepsis is improves and his thrombocytopenia improves. Benjamin Saxena MD
--- NOTE | 2018-07-20 16:55 | CP.PCM.PN ---
Subjective - Date & Time of Evaluation Date of Evaluation: 07/20/18 Time of Evaluation: 11:10 - Subjective Subjective: Patient is having shortness of breath at rest, still not very responsive but localizes to painful stimuli, still having low grade fevers overnight. Objective - Vital Signs/Intake and Output Vital Signs (last 24 hours): Temp Pulse Resp BP Pulse Ox 99.7 F H 83 27 H 116/64 95 07/19/18 16:00 07/19/18 18:00 07/19/18 14:00 07/19/18 17:17 07/19/18 15:48 Intake and Output: 07/19/18 07/20/18 18:59 06:59 Intake Total 1080 Output Total 1600 Balance -520 - Medications Medications: Current Medications Acetaminophen (Tylenol 650mg/20.3ml Solution Ud) 650 mg PO Q6H PRN PRN Reason: Fever 101F Last Admin: 07/14/18 12:29 Dose: 650 mg Albuterol/Ipratropium (Duoneb 3 Mg/0.5 Mg (3 Ml) Ud) 3 ml IH [id number] [facility] Last Admin: 07/19/18 19:56 Dose: 3 ml Albuterol/Ipratropium (Duoneb 3 Mg/0.5 Mg (3 Ml) Ud) 3 ml IH Q2H PRN PRN Reason: Shortness of Breath Last Admin: 07/11/18 23:55 Dose: 3 ml Digoxin (Lanoxin) 0.125 mg IVP 1400 [facility] Last Admin: 07/19/18 13:10 Dose: 0.125 mg Diltiazem HCl (Cardizem) 60 mg PO TID [facility] Last Admin: 07/19/18 17:17 Dose: 60 mg Insulin Detemir (Levemir) 30 unit SC HS [facility] Last Admin: 07/18/18 22:18 Dose: 30 units Insulin Human Regular (Humulin R Med) 0 units SC ACHS [facility]; Protocol Last Admin: 07/19/18 17:16 Dose: 7 units Pantoprazole Sodium (Protonix Inj) 40 mg IVP DAILY [facility] Last Admin: 07/19/18 09:06 Dose: 40 mg Vitamin A (Vitamin A&D) 1 applic TP Q8 PRN PRN Reason: Dry mouth - Labs Labs: 07/19/18 05:00 07/19/18 05:00 PT 12.5 SECONDS (9.4-12.5) 07/19/18 05:00 INR 1.09 07/19/18 05:00 APTT 18.7 Seconds (25.1-36.5) L 07/06/18 11:54 - Constitutional Appears: Chronically Ill - Head Exam Head Exam: NORMAL INSPECTION - Neck Exam Neck Exam: absent: Meningismus - Respiratory Exam Respiratory Exam: Decreased Breath Sounds - Cardiovascular Exam Cardiovascular Exam: +S1, +S2 - GI/Abdominal Exam GI & Abdominal Exam: Soft. absent: Tenderness Assessment and Plan - Assessment and Plan (Free Text) Plan: Assessment increasing leukocytosis R/O new onset sepsis S/P Severe sepsis with hypoxic respiratory failure and S/P ventilator-dependent respiratory failure and acute on chronic renal failure as well as thrombocytopenia due to severe right sided community-acquired pneumonia S/P viral infection with Influenza A in this patient with CVA significant and active smoking history COPD HTN DM peripheral vascular disease history of right elbow septic arthritis history of right upper extremity cellulitis Plan follow up blood, sputum, urine cx and monitor WBC count (blood cx negative x 24 hours); check PCT as well CXR done yesterday does not show new infiltrates continue to monitor off antibiotics since he is at risk for hospital-acquired infections discussed with Dr. Burr - probable has critically ill- related myopathy
[2018-07-20] MEDS: ELTROMBOPAG OLAMINE 75 MG PO SCH (17:52)
[2018-07-21] MEDS: Albuterol-Ipratrop 3 mg / 0.5 (3 ml) UD IH SCH ×4 (01:22→20:23)
[2018-07-21] MEDS: Insulin Reg-MEDIUM-Coverage SC SCH ×3 (06:00→17:53)
[2018-07-21 06:50] LABS: GRAN # 16.27 (1.4-6.5); GRAN % 96.1 % (50.0-68.0); HEMOGLOBIN 9.9 g/dL (14.0-18.0); LYMPH # 0.4 (1.2-3.4); LYMPH % 2.2 % (22.0-35.0); MEAN CELL VOLUME 90.5 fl (80.0-105.0); MEAN CORPUSCULAR HEMOGLOBIN 26.8 pg (25.0-35.0); MEAN CORPUSCULAR HGB CONC 29.6 g/dl (31.0-37.0); MONO # 0.3 (0.1-0.6); MONO % 1.7 % (1.0-6.0); RBC 3.69 10^6/uL (3.5-6.1); RED CELL DISTRIBUTION WIDTH 16.8 % (11.5-14.5); WHITE BLOOD COUNT 16.9 10^3/uL (4.5-11.0)
[2018-07-21 07:32] LABS: PLATELET COUNT 18 10^3/uL (120.0-450.0)
[2018-07-21 07:34] LABS: ALB/GLOB RATIO 0.8 (1.1-1.8); ALBUMIN 3.1 g/dL (3.0-4.8); BILIRUBIN,DIRECT 0.4 mg/dL (0.0-0.4); CALCIUM 9.2 mg/dL (8.4-10.5)
[2018-07-21] MEDS: Sodium Chloride 0.45% 1,000 ML IV SCH ×2 (07:38→10:33)
--- NOTE | 2018-07-21 07:58 | CP.PCM.PN ---
Subjective - Date & Time of Evaluation Date of Evaluation: 07/21/18 Time of Evaluation: 07:54 - Subjective Subjective: PGY-2 heme/onc progress note for Dr Zachary Estevez Patient not responsive to verbal commands and not able to track finger today, he is only responsive to pain. He is not able to follow commands. ROS could not be attained. Objective - Vital Signs/Intake and Output Vital Signs (last 24 hours): Temp Pulse Resp BP Pulse Ox 100.2 F H 85 20 130/66 94 L 07/20/18 22:14 07/20/18 22:14 07/21/18 06:59 07/20/18 22:15 07/21/18 06:59 Intake and Output: 07/21/18 07/21/18 06:59 18:59 Intake Total 6 Balance 6 - Medications Medications: Current Medications Acetaminophen (Tylenol 650mg/20.3ml Solution Ud) 650 mg PO Q6H PRN PRN Reason: Fever 101F Last Admin: 07/20/18 13:20 Dose: 650 mg Albuterol/Ipratropium (Duoneb 3 Mg/0.5 Mg (3 Ml) Ud) 3 ml IH [id number] [facility] Last Admin: 07/21/18 07:00 Dose: 3 ml Albuterol/Ipratropium (Duoneb 3 Mg/0.5 Mg (3 Ml) Ud) 3 ml IH Q2H PRN PRN Reason: Shortness of Breath Last Admin: 07/11/18 23:55 Dose: 3 ml Digoxin (Lanoxin) 0.125 mg IVP 1400 [facility] Last Admin: 07/20/18 13:21 Dose: 0.125 mg Diltiazem HCl (Cardizem) 60 mg PO TID [facility] Last Admin: 07/20/18 17:19 Dose: 60 mg Sodium Chloride (Sodium Chloride 0.45%) 1,000 mls @ 100 mls/hr IV .Q10H [facility] Last Admin: 07/21/18 07:38 Dose: 100 mls/hr Insulin Human Regular 100 (units/ Sodium Chloride) 100 mls @ 0 mls/hr IV .Q0M PRN; Protocol PRN Reason: TITRATE PER MD ORDER Last Titration: 07/20/18 19:04 Dose: 1.5 ml/hr, 1.5 mls/hr Dexamethasone 40 mg/ Sodium (Chloride) 60 mls @ 120 mls/hr IV DAILY [facility] Last Admin: 07/20/18 12:52 Dose: 120 mls/hr Insulin Detemir (Levemir) 30 unit SC HS [facility] Last Admin: 07/19/18 21:47 Dose: 30 units Insulin Human Regular (Humulin R Med) 0 units SC ACHS [facility]; Protocol Last Admin: 07/20/18 12:00 Dose: 8 units Non-Formulary Medication (Eltrombopag Olamine [Promacta]) 75 mg PO DAILY [facility] Last Admin: 07/20/18 17:52 Dose: Not Given Pantoprazole Sodium (Protonix Inj) 40 mg IVP DAILY [facility] Last Admin: 07/20/18 09:06 Dose: 40 mg Vitamin A (Vitamin A&D) 1 applic TP Q8 PRN PRN Reason: Dry mouth - Labs Labs: 07/21/18 06:20 07/21/18 06:20 PT 12.5 SECONDS (9.4-12.5) 07/19/18 05:00 INR 1.09 07/19/18 05:00 APTT 18.7 Seconds (25.1-36.5) L 07/06/18 11:54 - Additional Findings Additional findings: - Constitutional Appears: No Acute Distress, Older Than Stated Age, Chronically Ill - Head Exam Head Exam: ATRAUMATIC, NORMAL INSPECTION - Eye Exam Eye Exam: EOMI, PERRL. absent: Scleral icterus - ENT Exam ENT Exam: Mucous Membranes Moist Additional comments: Dobhoff in place in R nares, NC in place - Respiratory Exam Respiratory Exam: Decreased Breath Sounds, Clear to Ausculation Bilateral - Cardiovascular Exam Cardiovascular Exam: REGULAR RHYTHM, +S1, +S2. absent: JVD - GI/Abdominal Exam GI & Abdominal Exam: Soft, Normal Bowel Sounds Additional comments: R femoral cath removed, dressing c/d/i, without hematoma - Extremities Exam Extremities Exam: Normal Capillary Refill Additional comments: chronic diabetic ulcer noted to anterior anderson of left lower extremity Occasional spontaneous motor movement at this time in lower extremities - Neurological Exam Neurological Exam: Awake Additional comments: spontaneous motor movement at this time in upper extremities responds to painful stimuli unable to coherently respond verbally - Skin Skin Exam: Intact, Warm Additional comments: Ecchymotic in R antecubital region, stable; ecchymoses at different levels of healing throughout extremities Assessment and Plan - Assessment and Plan (Free Text) Plan: Mr. Damon is a 62 y/o man with pmhx significant for COPD, HTN; DM; PVD; and ITP admitted with ARDS in setting of NSTEMI and pneumonia/flu+ now s/p extubation with anticoagulants held due to thrombocytopenia: ITP -must rule-out MAHA and TTP -platelets 18, manual platelets 24, INR 1.09 * s/p 1 unit platelets on 07/20/18 * total 5 unit PLT transfused -HIT antibody negative, MARCELO test negative, Negative IVONE and ANCA studies, direct bilirubin normal -obtain peripheral smear * 07/08/18 Peripheral smear shows no atypical cells or immature forms. Mild anisopoikilocytosis. No schistocytes. No PL clumping although markedly reduced. -received 5 days of IVIG 07/07/2018 - 07/11/2018 given -start empiric treatment for ITP start dextromethasone 40mg iv qd for 5 days (started 07/20/18) -patient was previously on promacta outpatient - we will restart this medication now * Message was left for An to bring this medication from home -transfuse if <20 or actively bleeding -hold off on DVT chemoprophylaxis at this time, may resume of platelets >50 -stopped protonix and started on iv pepcid 20mg qd 07/21/17 as association with protonix and thrombocytopenia Case discussed with Dr Zachary Estevez
--- NOTE | 2018-07-21 08:21 | PN ---
DATE: 07/20/2018 SUBJECTIVE: The patient is seen lying in bed in the ICU. He is minimally responsive at this time. His eyes are open. As per the nursing staff, he has got PT earlier. He was very tachycardic and short of breath during PT. He is still not moving any of his extremities. Has dense quadriparesis. Not following any commands. PHYSICAL EXAMINATION: GENERAL: Elderly male lying in bed in the ICU. VITAL SIGNS: Blood pressure 108/49, heart rate 75, respiratory rate 34, temperature 100.4, T-max 100.8. HEENT: Normocephalic, atraumatic. Positive pallor. NECK: Supple. No JVD. LUNGS: Bilateral equal air entry. Bilateral equal expansion. No rales appreciated. CARDIAC: S1 and S2, regular rate and rhythm, no murmur, no rub. ABDOMEN: Obese, distended, soft, nontender, bowel sounds present. EXTREMITIES: Chronic stasis changes, trace edema. Intake and output 1560/2500. LABORATORY DATA: WBC 17.5, hemoglobin 9.6, hematocrit 34, platelets 19. Sodium 157, potassium 5.3, chloride 130, CO2 24, BUN 107, creatinine 2.3, glucose 502. Calcium 9, phosphorus 5.7, magnesium 2.3, AST 78, ALT 107. Urinalysis: Yellow, slightly cloudy, pH 5.5, specific gravity 1.015. Protein trace. Glucose 500. Ketones negative. Blood moderate. Leukocyte esterase negative. Digoxin 0.9. Blood culture from yesterday, no growth so far. CURRENT MEDICATIONS: Cardizem 60 three times a day, dexamethasone 40 mg given this morning, DuoNeb, 75 not given, insulin, digoxin 0.125 daily, Protonix half normal saline at 100, Tylenol, vitamin D. ASSESSMENT AND PLAN: 1. Acute kidney injury superimposed on chronic renal disease stage 3, in the setting of severe sepsis, community-acquired pneumonia, influenza, respiratory failure. 2. Severe thrombocytopenia. History of idiopathic thrombocytopenic purpura, exacerbated by severe sepsis and disseminated intravascular congestion. 3. Severe hypernatremia, dehydration. 4. Hyperkalemia, secondary to renal insufficiency. 5. Hyperphosphatemia. 6. Severe anemia. 7. Leukocytosis, ? secondary to steroids. 8. Multiple illness polyneuropathy, dense quadriparesis, decreased mentation. 9. Severe uncontrolled diabetes, worsened by steroids. 10. History of hypertension. 11. Atrial fibrillation, new onset. 12. Elevated liver function tests. PLAN: 1. Free water via NG tube at 200 mL every 6 hours. 2. Agree with half normal saline. 3. Agree with insulin drip. 4. Continue Cardizem for rate control. 5. Continue digoxin. 6. No treatment necessary for mild hyperkalemia. 7. Change feedings to Glucerna. 8. Monitor daily electrolytes. 9. Monitor platelet count. 10. Prognosis is extremely guarded. Case discussed with ICU nursing staff at length, case discussed with . , more than 35 minutes spent in the care of this critically ill patient. Bobbi Sullivan MD
[2018-07-21] MEDS ORDERED: Sod Polystyrene Sulf 15 gm/60 ml Susp PO STA (08:33)
[2018-07-21 08:44] LABS: LYMPHOCYTE 2 % (22.0-35.0); MONOCYTE 2 % (1.0-6.0); NEUTROPHIL 96 % (50.0-70.0)
[2018-07-21 08:45] LABS: OVALOCYTES SLIGHT; POIKILOCYTOSIS SLIGHT
--- NOTE | 2018-07-21 09:23 | RAD ---
Date of service: 07/21/2018 HISTORY: lethargic COMPARISON: 07/20/2018 FINDINGS: Nasogastric tube terminates in the stomach. LUNGS: The lungs are well inflated and clear. PLEURA: No pleural effusions or pneumothorax. CARDIOVASCULAR: The heart is normal in size. No aortic atherosclerotic calcifications present. OSSEOUS STRUCTURES: Within normal limits for the patient's age. VISUALIZED UPPER ABDOMEN: Normal. OTHER FINDINGS: None. IMPRESSION: No active pulmonary disease. Nasogastric tube terminates in the stomach.
--- NOTE | 2018-07-21 09:53 | CP.CCUPN ---
<Dannie Yeh - Last Filed: 07/21/18 11:17> CCU Subjective - Physician Review Subjective (Free Text): 07/21/18 11:06 Dannie Yeh PGY1 Critical Care Progress Note CC: SOB Patient seen and examined at bedside. No acute events overnight. Patient continues to be lethargic and flaccid. Stopped insulin drip, resumed levemir. Will check CPK for elevated potassium. Approved for LTAC pending family choice of facility. CCU Objective - Vital Signs / Intake & Output Vital Signs (Last 4 hours): Vital Signs Temp Pulse Resp BP Pulse Ox 07/21/18 08:00 145/85 07/21/18 07:59 100.6 F H 94 H 93 L 07/21/18 07:45 151/80 H 07/21/18 07:44 100.6 F H 93 H 93 L 07/21/18 07:30 148/73 07/21/18 07:29 100.4 F H 93 H 92 L 07/21/18 07:15 100.4 F H 92 H 152/84 H 92 L 07/21/18 07:00 146/83 07/21/18 06:59 100.4 F H 90 20 98 07/21/18 06:53 89 07/21/18 06:45 100.4 F H 90 33 H 154/85 H 92 L 07/21/18 06:37 100.2 F H 90 34 H 139/82 96 07/21/18 06:15 161/78 H 07/21/18 06:14 100.2 F H 89 34 H 94 L 07/21/18 06:00 100.2 F H 88 36 H 154/79 H 93 L Intake and Output (Last 8hrs): Intake & Output 07/20/18 07/21/18 07/21/18 22:59 06:59 14:59 Intake Total 1399 2080 Output Total 1300 1000 Balance 99 1080 Intake: IV 591 1200 Right Forearm 570 1200 Tube Feeding 100 480 Blood Product 308 Other 400 400 Output: Urine 1300 1000 Urethral (Oliveros) 1300 1000 Emesis 0 Other: # Bowel Movements 0 - Physical Exam Head: Positive for: Atraumatic, Normocephalic Pupils: Positive for: PERRL Extroacular Muscles: Negative for: EOMI (unable to be assessed) Conjunctiva: Positive for: Normal Mouth: Positive for: Dry, Drooling Nose (External): Positive for: Other (Dobhoff in place in R nares, NC in place) Respiratory/Chest: Positive for: Clear to Auscultation, Decreased Breath Sounds. Negative for: Respiratory Distress, Wheezes, Tachypneic Cardiovascular: Positive for: Normal S1, S2, Irregular Rhythm. Negative for: Murmurs Abdomen: Negative for: Tenderness, Peritoneal Signs, Guarding Back: Positive for: Normal Inspection Upper Extremity: Positive for: Normal Inspection, Other (flaccid). Negative for: Cyanosis, Edema Lower Extremity: Positive for: Edema (1+ pitting edema noted to right lower extremity; chronic diabetic ulcer noted to anterior anderson of left lower extremity ), Other (flaccid) Neurological: Negative for: GCS=15, CN II-XII Intact, Speech Normal Skin: Positive for: Warm, Dry, Normal Color, Other (Ecchymotic in R antecubital region, stable; ecchymoses at different levels of healing throughout extremities). Negative for: Rashes Psychiatric: Positive for: Alert (lethargic). Negative for: Oriented x 3 (unab le to coherently respond verbally), Normal Insight, Normal Concentration - Medications Active Medications: Active Medications Generic Name Dose Route Start Last Admin Trade Name Freq PRN Reason Stop Dose Admin Acetaminophen 650 mg 07/08/18 18:18 07/20/18 13:20 Tylenol 650mg/20.3ml Solution Ud PO 650 mg Q6H PRN Administration Fever 101F Albuterol/Ipratropium 3 ml 07/03/18 14:00 07/21/18 07:00 Duoneb 3 Mg/0.5 Mg (3 Ml) Ud IH 3 ml [id number] SEEMA Administration Albuterol/Ipratropium 3 ml 07/03/18 11:04 07/11/18 23:55 Duoneb 3 Mg/0.5 Mg (3 Ml) Ud IH 3 ml Q2H PRN Administration Shortness of Breath Digoxin 0.125 mg 07/13/18 14:00 07/20/18 13:21 Lanoxin IVP 0.125 mg 1400 SEEMA Administration Diltiazem HCl 60 mg 07/17/18 14:00 07/20/18 17:19 Cardizem PO 60 mg TID SEEMA Administration Sodium Chloride 1,000 mls @ 100 mls/hr 07/20/18 10:15 07/21/18 07:38 Sodium Chloride 0.45% IV 100 mls/hr .Q10H SEEMA Administration Insulin Human Regular 100 100 mls @ 0 mls/hr 07/20/18 10:11 07/20/18 19:04 units/ Sodium Chloride IV 1.5 ml/hr .Q0M PRN 1.5 mls/hr TITRATE PER MD ORDER Titration Protocol Titrate Dexamethasone 40 mg/ Sodium 60 mls @ 120 mls/hr 07/20/18 12:00 07/20/18 12:52 Chloride IV 120 mls/hr DAILY SEEMA Administration Insulin Detemir 30 unit 07/17/18 10:39 07/19/18 21:47 Levemir SC 30 units HS SEEMA Administration Insulin Human Regular 0 units 07/19/18 07:38 07/20/18 12:00 Humulin R Med SC 8 units ACHS SEEMA Administration Protocol Non-Formulary Medication 75 mg 07/20/18 11:45 07/20/18 17:52 Eltrombopag Olamine [Promacta] PO Not Given DAILY SEEMA Pantoprazole Sodium 40 mg 07/03/18 14:15 07/20/18 09:06 Protonix Inj IVP 40 mg DAILY SEEMA Administration Vitamin A 1 applic 07/13/18 16:53 Vitamin A&D TP Q8 PRN Dry mouth - Patient Studies Lab Studies: Microbiology Studies 07/19/18 10:30 Blood Culture - Preliminary Blood NO GROWTH AFTER 24 HOURS 07/19/18 10:55 Blood Culture - Preliminary Blood NO GROWTH AFTER 24 HOURS Lab Studies 07/21/18 07/21/18 07/21/18 Range/Units 07:34 06:20 06:20 WBC 16.9 H (4.5-11.0) 10^3/uL RBC 3.69 (3.5-6.1) 10^6/uL Hgb 9.9 L (14.0-18.0) g/dL Hct 33.4 L (42.0-52.0) % MCV 90.5 (80.0-105.0) fl MCH 26.8 (25.0-35.0) pg MCHC 29.6 L (31.0-37.0) g/dl RDW 16.8 H (11.5-14.5) % Plt Count 18 L* (120.0-450.0) 10^3/uL Manual Plt Count (120-450) K/mm3 Gran % 96.1 H (50.0-68.0) % Lymph % (Auto) 2.2 L (22.0-35.0) % [place] % (Auto) 1.7 (1.0-6.0) % Eos % (Auto) 0.0 L (1.5-5.0) % Baso % (Auto) 0.0 (0.0-3.0) % Gran # 16.27 H (1.4-6.5) Lymph # (Auto) 0.4 L (1.2-3.4) [place] # (Auto) 0.3 (0.1-0.6) Eos # (Auto) 0.0 (0.0-0.7) Baso # (Auto) 0.00 (0.0-2.0) K/mm3 Neutrophils % (Manual) 96 H (50.0-70.0) % Lymphocytes % (Manual) 2 L (22.0-35.0) % Monocytes % (Manual) 2 (1.0-6.0) % Differential Comment Poikilocytosis (manual Slight Ovalocytes Slight pCO2 (35-45) mm/Hg pO2 (80-100) mm/Hg HCO3 (21-28) mmol/L ABG pH (7.35-7.45) ABG Total CO2 (22-28) mmol.L ABG O2 Saturation (95-98) % ABG O2 Content (15-23) ML/dl ABG Base Excess (-2.0-3.0) mmol/L ABG Hemoglobin (11.7-17.4) g/dL ABG Carboxyhemoglobin (0.5-1.5) % POC ABG HHb (Measured) (0-5) % ABG Methemoglobin (0.0-3.0) % ABG O2 Capacity (16-24) mL/dl Hgb O2 Saturation (95.0-98.0) % FiO2 % Sodium 160 H* (132-148) mmol/L Potassium 5.6 H* (3.6-5.0) mmol/L Chloride 133 H (98-107) mmol/L Carbon Dioxide 24 (21-33) mmol/L Anion Gap 9 L (10-20) BUN 114 H (7-21) mg/dL Creatinine 2.0 H (0.8-1.5) mg/dl Est GFR ( Amer) 41 Est GFR (Non-Af Amer) 34 POC Glucose (mg/dL) 142 H (65-110) mg/dL Random Glucose 140 H (70-110) mg/dL Calcium 9.2 (8.4-10.5) mg/dL Phosphorus (2.5-4.5) mg/dL Magnesium (1.7-2.2) mg/dL Total Bilirubin 0.7 (0.2-1.3) mg/dL Direct Bilirubin 0.4 (0.0-0.4) mg/dL AST 57 (17-59) U/L ALT 79 H (7-56) U/L Alkaline Phosphatase 95 (38-126) U/L Total Protein 6.8 (5.8-8.3) g/dL Albumin 3.1 (3.0-4.8) g/dL Globulin 3.7 gm/dL Albumin/Globulin Ratio 0.8 L (1.1-1.8) 07/21/18 07/21/18 07/21/18 Range/Units 06:05 05:17 04:02 WBC (4.5-11.0) 10^3/uL RBC (3.5-6.1) 10^6/uL Hgb (14.0-18.0) g/dL Hct (42.0-52.0) % MCV (80.0-105.0) fl MCH (25.0-35.0) pg MCHC (31.0-37.0) g/dl RDW (11.5-14.5) % Plt Count (120.0-450.0) 10^3/uL Manual Plt Count (120-450) K/mm3 Gran % (50.0-68.0) % Lymph % (Auto) (22.0-35.0) % [place] % (Auto) (1.0-6.0) % Eos % (Auto) (1.5-5.0) % Baso % (Auto) (0.0-3.0) % Gran # (1.4-6.5) Lymph # (Auto) (1.2-3.4) [place] # (Auto) (0.1-0.6) Eos # (Auto) (0.0-0.7) Baso # (Auto) (0.0-2.0) K/mm3 Neutrophils % (Manual) (50.0-70.0) % Lymphocytes % (Manual) (22.0-35.0) % Monocytes % (Manual) (1.0-6.0) % Differential Comment Poikilocytosis (manual Ovalocytes pCO2 (35-45) mm/Hg pO2 (80-100) mm/Hg HCO3 (21-28) mmol/L ABG pH (7.35-7.45) ABG Total CO2 (22-28) mmol.L ABG O2 Saturation (95-98) % ABG O2 Content (15-23) ML/dl ABG Base Excess (-2.0-3.0) mmol/L ABG Hemoglobin (11.7-17.4) g/dL ABG Carboxyhemoglobin (0.5-1.5) % POC ABG HHb (Measured) (0-5) % ABG Methemoglobin (0.0-3.0) % ABG O2 Capacity (16-24) mL/dl Hgb O2 Saturation (95.0-98.0) % FiO2 % Sodium (132-148) mmol/L Potassium (3.6-5.0) mmol/L Chloride (98-107) mmol/L Carbon Dioxide (21-33) mmol/L Anion Gap (10-20) BUN (7-21) mg/dL Creatinine (0.8-1.5) mg/dl Est GFR ( Amer) Est GFR (Non-Af Amer) POC Glucose (mg/dL) 129 H 153 H 137 H (65-110) mg/dL Random Glucose (70-110) mg/dL Calcium (8.4-10.5) mg/dL Phosphorus (2.5-4.5) mg/dL Magnesium (1.7-2.2) mg/dL Total Bilirubin (0.2-1.3) mg/dL Direct Bilirubin (0.0-0.4) mg/dL AST (17-59) U/L ALT (7-56) U/L Alkaline Phosphatase (38-126) U/L Total Protein (5.8-8.3) g/dL Albumin (3.0-4.8) g/dL Globulin gm/dL Albumin/Globulin Ratio (1.1-1.8) 07/21/18 07/21/18 07/20/18 Range/Units 01:15 00:14 23:02 WBC (4.5-11.0) 10^3/uL RBC (3.5-6.1) 10^6/uL Hgb (14.0-18.0) g/dL Hct (42.0-52.0) % MCV (80.0-105.0) fl MCH (25.0-35.0) pg MCHC (31.0-37.0) g/dl RDW (11.5-14.5) % Plt Count (120.0-450.0) 10^3/uL Manual Plt Count (120-450) K/mm3 Gran % (50.0-68.0) % Lymph % (Auto) (22.0-35.0) % [place] % (Auto) (1.0-6.0) % Eos % (Auto) (1.5-5.0) % Baso % (Auto) (0.0-3.0) % Gran # (1.4-6.5) Lymph # (Auto) (1.2-3.4) [place] # (Auto) (0.1-0.6) Eos # (Auto) (0.0-0.7) Baso # (Auto) (0.0-2.0) K/mm3 Neutrophils % (Manual) (50.0-70.0) % Lymphocytes % (Manual) (22.0-35.0) % Monocytes % (Manual) (1.0-6.0) % Differential Comment Poikilocytosis (manual Ovalocytes pCO2 (35-45) mm/Hg pO2 (80-100) mm/Hg HCO3 (21-28) mmol/L ABG pH (7.35-7.45) ABG Total CO2 (22-28) mmol.L ABG O2 Saturation (95-98) % ABG O2 Content (15-23) ML/dl ABG Base Excess (-2.0-3.0) mmol/L ABG Hemoglobin (11.7-17.4) g/dL ABG Carboxyhemoglobin (0.5-1.5) % POC ABG HHb (Measured) (0-5) % ABG Methemoglobin (0.0-3.0) % ABG O2 Capacity (16-24) mL/dl Hgb O2 Saturation (95.0-98.0) % FiO2 % Sodium (132-148) mmol/L Potassium (3.6-5.0) mmol/L Chloride (98-107) mmol/L Carbon Dioxide (21-33) mmol/L Anion Gap (10-20) BUN (7-21) mg/dL Creatinine (0.8-1.5) mg/dl Est GFR ( Amer) Est GFR (Non-Af Amer) POC Glucose (mg/dL) 162 H 164 H 173 H (65-110) mg/dL Random Glucose (70-110) mg/dL Calcium (8.4-10.5) mg/dL Phosphorus (2.5-4.5) mg/dL Magnesium (1.7-2.2) mg/dL Total Bilirubin (0.2-1.3) mg/dL Direct Bilirubin (0.0-0.4) mg/dL AST (17-59) U/L ALT (7-56) U/L Alkaline Phosphatase (38-126) U/L Total Protein (5.8-8.3) g/dL Albumin (3.0-4.8) g/dL Globulin gm/dL Albumin/Globulin Ratio (1.1-1.8) 07/20/18 07/20/18 07/20/18 Range/Units 22:11 21:16 20:07 WBC (4.5-11.0) 10^3/uL RBC (3.5-6.1) 10^6/uL Hgb (14.0-18.0) g/dL Hct (42.0-52.0) % MCV (80.0-105.0) fl MCH (25.0-35.0) pg MCHC (31.0-37.0) g/dl RDW (11.5-14.5) % Plt Count (120.0-450.0) 10^3/uL Manual Plt Count (120-450) K/mm3 Gran % (50.0-68.0) % Lymph % (Auto) (22.0-35.0) % [place] % (Auto) (1.0-6.0) % Eos % (Auto) (1.5-5.0) % Baso % (Auto) (0.0-3.0) % Gran # (1.4-6.5) Lymph # (Auto) (1.2-3.4) [place] # (Auto) (0.1-0.6) Eos # (Auto) (0.0-0.7) Baso # (Auto) (0.0-2.0) K/mm3 Neutrophils % (Manual) (50.0-70.0) % Lymphocytes % (Manual) (22.0-35.0) % Monocytes % (Manual) (1.0-6.0) % Differential Comment Poikilocytosis (manual Ovalocytes pCO2 (35-45) mm/Hg pO2 (80-100) mm/Hg HCO3 (21-28) mmol/L ABG pH (7.35-7.45) ABG Total CO2 (22-28) mmol.L ABG O2 Saturation (95-98) % ABG O2 Content (15-23) ML/dl ABG Base Excess (-2.0-3.0) mmol/L ABG Hemoglobin (11.7-17.4) g/dL ABG Carboxyhemoglobin (0.5-1.5) % POC ABG HHb (Measured) (0-5) % ABG Methemoglobin (0.0-3.0) % ABG O2 Capacity (16-24) mL/dl Hgb O2 Saturation (95.0-98.0) % FiO2 % Sodium (132-148) mmol/L Potassium (3.6-5.0) mmol/L Chloride (98-107) mmol/L Carbon Dioxide (21-33) mmol/L Anion Gap (10-20) BUN (7-21) mg/dL Creatinine (0.8-1.5) mg/dl Est GFR ( Amer) Est GFR (Non-Af Amer) POC Glucose (mg/dL) 158 H 147 H 144 H (65-110) mg/dL Random Glucose (70-110) mg/dL Calcium (8.4-10.5) mg/dL Phosphorus (2.5-4.5) mg/dL Magnesium (1.7-2.2) mg/dL Total Bilirubin (0.2-1.3) mg/dL Direct Bilirubin (0.0-0.4) mg/dL AST (17-59) U/L ALT (7-56) U/L Alkaline Phosphatase (38-126) U/L Total Protein (5.8-8.3) g/dL Albumin (3.0-4.8) g/dL Globulin gm/dL Albumin/Globulin Ratio (1.1-1.8) 07/20/18 07/20/18 07/20/18 Range/Units 19:03 18:00 17:06 WBC (4.5-11.0) 10^3/uL RBC (3.5-6.1) 10^6/uL Hgb (14.0-18.0) g/dL Hct (42.0-52.0) % MCV (80.0-105.0) fl MCH (25.0-35.0) pg MCHC (31.0-37.0) g/dl RDW (11.5-14.5) % Plt Count (120.0-450.0) 10^3/uL Manual Plt Count (120-450) K/mm3 Gran % (50.0-68.0) % Lymph % (Auto) (22.0-35.0) % [place] % (Auto) (1.0-6.0) % Eos % (Auto) (1.5-5.0) % Baso % (Auto) (0.0-3.0) % Gran # (1.4-6.5) Lymph # (Auto) (1.2-3.4) [place] # (Auto) (0.1-0.6) Eos # (Auto) (0.0-0.7) Baso # (Auto) (0.0-2.0) K/mm3 Neutrophils % (Manual) (50.0-70.0) % Lymphocytes % (Manual) (22.0-35.0) % Monocytes % (Manual) (1.0-6.0) % Differential Comment Poikilocytosis (manual Ovalocytes pCO2 (35-45) mm/Hg pO2 (80-100) mm/Hg HCO3 (21-28) mmol/L ABG pH (7.35-7.45) ABG Total CO2 (22-28) mmol.L ABG O2 Saturation (95-98) % ABG O2 Content (15-23) ML/dl ABG Base Excess (-2.0-3.0) mmol/L ABG Hemoglobin (11.7-17.4) g/dL ABG Carboxyhemoglobin (0.5-1.5) % POC ABG HHb (Measured) (0-5) % ABG Methemoglobin (0.0-3.0) % ABG O2 Capacity (16-24) mL/dl Hgb O2 Saturation (95.0-98.0) % FiO2 % Sodium (132-148) mmol/L Potassium (3.6-5.0) mmol/L Chloride (98-107) mmol/L Carbon Dioxide (21-33) mmol/L Anion Gap (10-20) BUN (7-21) mg/dL Creatinine (0.8-1.5) mg/dl Est GFR ( Amer) Est GFR (Non-Af Amer) POC Glucose (mg/dL) 179 H 203 H 219 H (65-110) mg/dL Random Glucose (70-110) mg/dL Calcium (8.4-10.5) mg/dL Phosphorus (2.5-4.5) mg/dL Magnesium (1.7-2.2) mg/dL Total Bilirubin (0.2-1.3) mg/dL Direct Bilirubin (0.0-0.4) mg/dL AST (17-59) U/L ALT (7-56) U/L Alkaline Phosphatase (38-126) U/L Total Protein (5.8-8.3) g/dL Albumin (3.0-4.8) g/dL Globulin gm/dL Albumin/Globulin Ratio (1.1-1.8) 07/20/18 07/20/18 07/20/18 Range/Units 16:09 15:03 14:40 WBC (4.5-11.0) 10^3/uL RBC (3.5-6.1) 10^6/uL Hgb (14.0-18.0) g/dL Hct (42.0-52.0) % MCV (80.0-105.0) fl MCH (25.0-35.0) pg MCHC (31.0-37.0) g/dl RDW (11.5-14.5) % Plt Count (120.0-450.0) 10^3/uL Manual Plt Count (120-450) K/mm3 Gran % (50.0-68.0) % Lymph % (Auto) (22.0-35.0) % [place] % (Auto) (1.0-6.0) % Eos % (Auto) (1.5-5.0) % Baso % (Auto) (0.0-3.0) % Gran # (1.4-6.5) Lymph # (Auto) (1.2-3.4) [place] # (Auto) (0.1-0.6) Eos # (Auto) (0.0-0.7) Baso # (Auto) (0.0-2.0) K/mm3 Neutrophils % (Manual) (50.0-70.0) % Lymphocytes % (Manual) (22.0-35.0) % Monocytes % (Manual) (1.0-6.0) % Differential Comment Poikilocytosis (manual Ovalocytes pCO2 41 (35-45) mm/Hg pO2 74.0 L (80-100) mm/Hg HCO3 21.1 (21-28) mmol/L ABG pH 7.32 L (7.35-7.45) ABG Total CO2 22.4 (22-28) mmol.L ABG O2 Saturation 97.8 (95-98) % ABG O2 Content 12.1 L (15-23) ML/dl ABG Base Excess -4.7 L (-2.0-3.0) mmol/L ABG Hemoglobin 9.1 L (11.7-17.4) g/dL ABG Carboxyhemoglobin 2.6 H (0.5-1.5) % POC ABG HHb (Measured) 2.1 (0-5) % ABG Methemoglobin 1.4 (0.0-3.0) % ABG O2 Capacity 12.4 L (16-24) mL/dl Hgb O2 Saturation 94.0 L (95.0-98.0) % FiO2 32.0 % Sodium (132-148) mmol/L Potassium (3.6-5.0) mmol/L Chloride (98-107) mmol/L Carbon Dioxide (21-33) mmol/L Anion Gap (10-20) BUN (7-21) mg/dL Creatinine (0.8-1.5) mg/dl Est GFR ( Amer) Est GFR (Non-Af Amer) POC Glucose (mg/dL) 239 H 291 H (65-110) mg/dL Random Glucose (70-110) mg/dL Calcium (8.4-10.5) mg/dL Phosphorus (2.5-4.5) mg/dL Magnesium (1.7-2.2) mg/dL Total Bilirubin (0.2-1.3) mg/dL Direct Bilirubin (0.0-0.4) mg/dL AST (17-59) U/L ALT (7-56) U/L Alkaline Phosphatase (38-126) U/L Total Protein (5.8-8.3) g/dL Albumin (3.0-4.8) g/dL Globulin gm/dL Albumin/Globulin Ratio (1.1-1.8) 07/20/18 07/20/18 07/20/18 Range/Units 14:14 12:55 11:14 WBC (4.5-11.0) 10^3/uL RBC (3.5-6.1) 10^6/uL Hgb (14.0-18.0) g/dL Hct (42.0-52.0) % MCV (80.0-105.0) fl MCH (25.0-35.0) pg MCHC (31.0-37.0) g/dl RDW (11.5-14.5) % Plt Count (120.0-450.0) 10^3/uL Manual Plt Count (120-450) K/mm3 Gran % (50.0-68.0) % Lymph % (Auto) (22.0-35.0) % [place] % (Auto) (1.0-6.0) % Eos % (Auto) (1.5-5.0) % Baso % (Auto) (0.0-3.0) % Gran # (1.4-6.5) Lymph # (Auto) (1.2-3.4) [place] # (Auto) (0.1-0.6) Eos # (Auto) (0.0-0.7) Baso # (Auto) (0.0-2.0) K/mm3 Neutrophils % (Manual) (50.0-70.0) % Lymphocytes % (Manual) (22.0-35.0) % Monocytes % (Manual) (1.0-6.0) % Differential Comment Poikilocytosis (manual Ovalocytes pCO2 (35-45) mm/Hg pO2 (80-100) mm/Hg HCO3 (21-28) mmol/L ABG pH (7.35-7.45) ABG Total CO2 (22-28) mmol.L ABG O2 Saturation (95-98) % ABG O2 Content (15-23) ML/dl ABG Base Excess (-2.0-3.0) mmol/L ABG Hemoglobin (11.7-17.4) g/dL ABG Carboxyhemoglobin (0.5-1.5) % POC ABG HHb (Measured) (0-5) % ABG Methemoglobin (0.0-3.0) % ABG O2 Capacity (16-24) mL/dl Hgb O2 Saturation (95.0-98.0) % FiO2 % Sodium (132-148) mmol/L Potassium (3.6-5.0) mmol/L Chloride (98-107) mmol/L Carbon Dioxide (21-33) mmol/L Anion Gap (10-20) BUN (7-21) mg/dL Creatinine (0.8-1.5) mg/dl Est GFR ( Amer) Est GFR (Non-Af Amer) POC Glucose (mg/dL) 343 H 336 H 385 H (65-110) mg/dL Random Glucose (70-110) mg/dL Calcium (8.4-10.5) mg/dL Phosphorus (2.5-4.5) mg/dL Magnesium (1.7-2.2) mg/dL Total Bilirubin (0.2-1.3) mg/dL Direct Bilirubin (0.0-0.4) mg/dL AST (17-59) U/L ALT (7-56) U/L Alkaline Phosphatase (38-126) U/L Total Protein (5.8-8.3) g/dL Albumin (3.0-4.8) g/dL Globulin gm/dL Albumin/Globulin Ratio (1.1-1.8) 07/20/18 07/20/18 07/20/18 Range/Units 07:28 05:40 05:40 WBC 17.5 H (4.5-11.0) 10^3/uL RBC 3.73 (3.5-6.1) 10^6/uL Hgb 9.6 L (14.0-18.0) g/dL Hct 34.1 L (42.0-52.0) % MCV 91.4 (80.0-105.0) fl MCH 25.7 (25.0-35.0) pg MCHC 28.2 L (31.0-37.0) g/dl RDW 17.5 H (11.5-14.5) % Plt Count 19 L* (120.0-450.0) 10^3/uL Manual Plt Count 24 L* (120-450) K/mm3 Gran % 93.8 H (50.0-68.0) % Lymph % (Auto) 4.9 L (22.0-35.0) % [place] % (Auto) 1.2 (1.0-6.0) % Eos % (Auto) 0.1 L (1.5-5.0) % Baso % (Auto) 0.0 (0.0-3.0) % Gran # 16.42 H (1.4-6.5) Lymph # (Auto) 0.9 L (1.2-3.4) [place] # (Auto) 0.2 (0.1-0.6) Eos # (Auto) 0.0 (0.0-0.7) Baso # (Auto) 0.00 (0.0-2.0) K/mm3 Neutrophils % (Manual) (50.0-70.0) % Lymphocytes % (Manual) (22.0-35.0) % Monocytes % (Manual) (1.0-6.0) % Differential Comment See pathology report Poikilocytosis (manual Ovalocytes pCO2 (35-45) mm/Hg pO2 (80-100) mm/Hg HCO3 (21-28) mmol/L ABG pH (7.35-7.45) ABG Total CO2 (22-28) mmol.L ABG O2 Saturation (95-98) % ABG O2 Content (15-23) ML/dl ABG Base Excess (-2.0-3.0) mmol/L ABG Hemoglobin (11.7-17.4) g/dL ABG Carboxyhemoglobin (0.5-1.5) % POC ABG HHb (Measured) (0-5) % ABG Methemoglobin (0.0-3.0) % ABG O2 Capacity (16-24) mL/dl Hgb O2 Saturation (95.0-98.0) % FiO2 % Sodium (132-148) mmol/L Potassium (3.6-5.0) mmol/L Chloride (98-107) mmol/L Carbon Dioxide (21-33) mmol/L Anion Gap (10-20) BUN (7-21) mg/dL Creatinine (0.8-1.5) mg/dl Est GFR ( Amer) Est GFR (Non-Af Amer) POC Glucose (mg/dL) 496 H* (65-110) mg/dL Random Glucose (70-110) mg/dL Calcium (8.4-10.5) mg/dL Phosphorus 5.7 H (2.5-4.5) mg/dL Magnesium 2.3 H (1.7-2.2) mg/dL Total Bilirubin (0.2-1.3) mg/dL Direct Bilirubin (0.0-0.4) mg/dL AST (17-59) U/L ALT (7-56) U/L Alkaline Phosphatase (38-126) U/L Total Protein (5.8-8.3) g/dL Albumin (3.0-4.8) g/dL Globulin gm/dL Albumin/Globulin Ratio (1.1-1.8) Laboratory Results - last 24 hr 07/20/18 07/20/18 07/20/18 05:40 05:40 07:28 WBC 17.5 H RBC 3.73 Hgb 9.6 L Hct 34.1 L MCV 91.4 MCH 25.7 MCHC 28.2 L RDW 17.5 H Plt Count 19 L* Manual Plt Count 24 L* Gran % 93.8 H Lymph % (Auto) 4.9 L [place] % (Auto) 1.2 Eos % (Auto) 0.1 L Baso % (Auto) 0.0 Gran # 16.42 H Lymph # (Auto) 0.9 L [place] # (Auto) 0.2 Eos # (Auto) 0.0 Baso # (Auto) 0.00 Neutrophils % (Manual) Lymphocytes % (Manual) Monocytes % (Manual) Differential Comment See pathology report Poikilocytosis (manual Ovalocytes pCO2 pO2 HCO3 ABG pH ABG Total CO2 ABG O2 Saturation ABG O2 Content ABG Base Excess ABG Hemoglobin ABG Carboxyhemoglobin POC ABG HHb (Measured) ABG Methemoglobin ABG O2 Capacity Hgb O2 Saturation FiO2 Sodium Potassium Chloride Carbon Dioxide Anion Gap BUN Creatinine Est GFR ( Amer) Est GFR (Non-Af Amer) POC Glucose (mg/dL) 496 H* Random Glucose Calcium Phosphorus 5.7 H Magnesium 2.3 H Total Bilirubin Direct Bilirubin AST ALT Alkaline Phosphatase Total Protein Albumin Globulin Albumin/Globulin Ratio 07/20/18 07/20/18 07/20/18 11:14 12:55 14:14 WBC RBC Hgb Hct MCV MCH MCHC RDW Plt Count Manual Plt Count Gran % Lymph % (Auto) [place] % (Auto) Eos % (Auto) Baso % (Auto) Gran # Lymph # (Auto) [place] # (Auto) Eos # (Auto) Baso # (Auto) Neutrophils % (Manual) Lymphocytes % (Manual) Monocytes % (Manual) Differential Comment Poikilocytosis (manual Ovalocytes pCO2 pO2 HCO3 ABG pH ABG Total CO2 ABG O2 Saturation ABG O2 Content ABG Base Excess ABG Hemoglobin ABG Carboxyhemoglobin POC ABG HHb (Measured) ABG Methemoglobin ABG O2 Capacity Hgb O2 Saturation FiO2 Sodium Potassium Chloride Carbon Dioxide Anion Gap BUN Creatinine Est GFR ( Amer) Est GFR (Non-Af Amer) POC Glucose (mg/dL) 385 H 336 H 343 H Random Glucose Calcium Phosphorus Magnesium Total Bilirubin Direct Bilirubin AST ALT Alkaline Phosphatase Total Protein Albumin Globulin Albumin/Globulin Ratio 07/20/18 07/20/18 07/20/18 14:40 15:03 16:09 WBC RBC Hgb Hct MCV MCH MCHC RDW Plt Count Manual Plt Count Gran % Lymph % (Auto) [place] % (Auto) Eos % (Auto) Baso % (Auto) Gran # Lymph # (Auto) [place] # (Auto) Eos # (Auto) Baso # (Auto) Neutrophils % (Manual) Lymphocytes % (Manual) Monocytes % (Manual) Differential Comment Poikilocytosis (manual Ovalocytes pCO2 41 pO2 74.0 L HCO3 21.1 ABG pH 7.32 L ABG Total CO2 22.4 ABG O2 Saturation 97.8 ABG O2 Content 12.1 L ABG Base Excess -4.7 L ABG Hemoglobin 9.1 L ABG Carboxyhemoglobin 2.6 H POC ABG HHb (Measured) 2.1 ABG Methemoglobin 1.4 ABG O2 Capacity 12.4 L Hgb O2 Saturation 94.0 L FiO2 32.0 Sodium Potassium Chloride Carbon Dioxide Anion Gap BUN Creatinine Est GFR ( Amer) Est GFR (Non-Af Amer) POC Glucose (mg/dL) 291 H 239 H Random Glucose Calcium Phosphorus Magnesium Total Bilirubin Direct Bilirubin AST ALT Alkaline Phosphatase Total Protein Albumin Globulin Albumin/Globulin Ratio 07/20/18 07/20/18 07/20/18 17:06 18:00 19:03 WBC RBC Hgb Hct MCV MCH MCHC RDW Plt Count Manual Plt Count Gran % Lymph % (Auto) [place] % (Auto) Eos % (Auto) Baso % (Auto) Gran # Lymph # (Auto) [place] # (Auto) Eos # (Auto) Baso # (Auto) Neutrophils % (Manual) Lymphocytes % (Manual) Monocytes % (Manual) Differential Comment Poikilocytosis (manual Ovalocytes pCO2 pO2 HCO3 ABG pH ABG Total CO2 ABG O2 Saturation ABG O2 Content ABG Base Excess ABG Hemoglobin ABG Carboxyhemoglobin POC ABG HHb (Measured) ABG Methemoglobin ABG O2 Capacity Hgb O2 Saturation FiO2 Sodium Potassium Chloride Carbon Dioxide Anion Gap BUN Creatinine Est GFR ( Amer) Est GFR (Non-Af Amer) POC Glucose (mg/dL) 219 H 203 H 179 H Random Glucose Calcium Phosphorus Magnesium Total Bilirubin Direct Bilirubin AST ALT Alkaline Phosphatase Total Protein Albumin Globulin Albumin/Globulin Ratio 07/20/18 07/20/18 07/20/18 20:07 21:16 22:11 WBC RBC Hgb Hct MCV MCH MCHC RDW Plt Count Manual Plt Count Gran % Lymph % (Auto) [place] % (Auto) Eos % (Auto) Baso % (Auto) Gran # Lymph # (Auto) [place] # (Auto) Eos # (Auto) Baso # (Auto) Neutrophils % (Manual) Lymphocytes % (Manual) Monocytes % (Manual) Differential Comment Poikilocytosis (manual Ovalocytes pCO2 pO2 HCO3 ABG pH ABG Total CO2 ABG O2 Saturation ABG O2 Content ABG Base Excess ABG Hemoglobin ABG Carboxyhemoglobin POC ABG HHb (Measured) ABG Methemoglobin ABG O2 Capacity Hgb O2 Saturation FiO2 Sodium Potassium Chloride Carbon Dioxide Anion Gap BUN Creatinine Est GFR ( Amer) Est GFR (Non-Af Amer) POC Glucose (mg/dL) 144 H 147 H 158 H Random Glucose Calcium Phosphorus Magnesium Total Bilirubin Direct Bilirubin AST ALT Alkaline Phosphatase Total Protein Albumin Globulin Albumin/Globulin Ratio 07/20/18 07/21/18 07/21/18 23:02 00:14 01:15 WBC RBC Hgb Hct MCV MCH MCHC RDW Plt Count Manual Plt Count Gran % Lymph % (Auto) [place] % (Auto) Eos % (Auto) Baso % (Auto) Gran # Lymph # (Auto) [place] # (Auto) Eos # (Auto) Baso # (Auto) Neutrophils % (Manual) Lymphocytes % (Manual) Monocytes % (Manual) Differential Comment Poikilocytosis (manual Ovalocytes pCO2 pO2 HCO3 ABG pH ABG Total CO2 ABG O2 Saturation ABG O2 Content ABG Base Excess ABG Hemoglobin ABG Carboxyhemoglobin POC ABG HHb (Measured) ABG Methemoglobin ABG O2 Capacity Hgb O2 Saturation FiO2 Sodium Potassium Chloride Carbon Dioxide Anion Gap BUN Creatinine Est GFR ( Amer) Est GFR (Non-Af Amer) POC Glucose (mg/dL) 173 H 164 H 162 H Random Glucose Calcium Phosphorus Magnesium Total Bilirubin Direct Bilirubin AST ALT Alkaline Phosphatase Total Protein Albumin Globulin Albumin/Globulin Ratio 07/21/18 07/21/18 07/21/18 04:02 05:17 06:05 WBC RBC Hgb Hct MCV MCH MCHC RDW Plt Count Manual Plt Count Gran % Lymph % (Auto) [place] % (Auto) Eos % (Auto) Baso % (Auto) Gran # Lymph # (Auto) [place] # (Auto) Eos # (Auto) Baso # (Auto) Neutrophils % (Manual) Lymphocytes % (Manual) Monocytes % (Manual) Differential Comment Poikilocytosis (manual Ovalocytes pCO2 pO2 HCO3 ABG pH ABG Total CO2 ABG O2 Saturation ABG O2 Content ABG Base Excess ABG Hemoglobin ABG Carboxyhemoglobin POC ABG HHb (Measured) ABG Methemoglobin ABG O2 Capacity Hgb O2 Saturation FiO2 Sodium Potassium Chloride Carbon Dioxide Anion Gap BUN Creatinine Est GFR ( Amer) Est GFR (Non-Af Amer) POC Glucose (mg/dL) 137 H 153 H 129 H Random Glucose Calcium Phosphorus Magnesium Total Bilirubin Direct Bilirubin AST ALT Alkaline Phosphatase Total Protein Albumin Globulin Albumin/Globulin Ratio 07/21/18 07/21/18 07/21/18 06:20 06:20 07:34 WBC 16.9 H RBC 3.69 Hgb 9.9 L Hct 33.4 L MCV 90.5 MCH 26.8 MCHC 29.6 L RDW 16.8 H Plt Count 18 L* Manual Plt Count Gran % 96.1 H Lymph % (Auto) 2.2 L [place] % (Auto) 1.7 Eos % (Auto) 0.0 L Baso % (Auto) 0.0 Gran # 16.27 H Lymph # (Auto) 0.4 L [place] # (Auto) 0.3 Eos # (Auto) 0.0 Baso # (Auto) 0.00 Neutrophils % (Manual) 96 H Lymphocytes % (Manual) 2 L Monocytes % (Manual) 2 Differential Comment Poikilocytosis (manual Slight Ovalocytes Slight pCO2 pO2 HCO3 ABG pH ABG Total CO2 ABG O2 Saturation ABG O2 Content ABG Base Excess ABG Hemoglobin ABG Carboxyhemoglobin POC ABG HHb (Measured) ABG Methemoglobin ABG O2 Capacity Hgb O2 Saturation FiO2 Sodium 160 H* Potassium 5.6 H* Chloride 133 H Carbon Dioxide 24 Anion Gap 9 L BUN 114 H Creatinine 2.0 H Est GFR ( Amer) 41 Est GFR (Non-Af Amer) 34 POC Glucose (mg/dL) 142 H Random Glucose 140 H Calcium 9.2 Phosphorus Magnesium Total Bilirubin 0.7 Direct Bilirubin 0.4 AST 57 ALT 79 H Alkaline Phosphatase 95 Total Protein 6.8 Albumin 3.1 Globulin 3.7 Albumin/Globulin Ratio 0.8 L Radiology Impressions: Radiology Impressions Chest X-Ray 07/20/18 06:00 IMPRESSION: No active disease. Chest X-Ray 07/21/18 08:35 IMPRESSION: No active pulmonary disease. Nasogastric tube terminates in the stomach. Fingerstick Blood Sugar Results: 203 Critical Care Progress Note - Nutrition Nutrition: Nutrition Category Date Time Status NPO Diet [DIET] Diets 07/06/18 Breakfast Ordered Assessment/Plan - Assessment and Plan (Free Text) Assessment: 62 y/o male with PMHx of COPD, active smoker 1pk per day, HTN, DM, PVD, presents with ER with 2 day history of fever, chills, associated with cough that is non- productive. Patient was initially started on heparin drip given elevated troponin, and markedly diminished EF. Hep drip currently held secondary to thrombocytopenia. Initially paralyzed on Nimbex after overbreathing ventilator. Extubated last week, ARDS resolved and s/p merrem and doxycycline antibiotic therapy for pneumonia. Awaiting family choice of LTAC facility. Plan: Neuro: Critical Illness Polyneuropathy - approved for LTAC placement - Neuro consult - Dr. Harvinder Mcdaniels - Poor motor function likely from critical illness polyneuropathy - Results of EEG 07/10/18: moderate nonspecific diffuse disturbance of cortical activity, nonspecific diffuse fernandez matter dysfunction, no seizures, not in status epilepticus - 07/13/18 MRI brain without contrast negative for acute abnormalities - 07/10/18 CT head without contrast negative - lethargic, poor verbal response - Pt. responds to painful stimuli - Continuous and frequent PT daily- recs appreciated Pulmology CAP and Flu A positive - completed tamiflu and merrem/doxycycline treatment - CXR today shows no active disease, NG tube terminates in stomach - 07/17/18 CXR shows Vascular congestion with left lower lobe perihilar infiltrate - Duonebs seema q6 and PRN q2 - Urine Lg and Strep negative - Procal is 0.16 on 07/19 from 0.6 on 07/14 - ID eval: Dr. Fernandes - Pulm consulted - Dr. Burr - Currently on 3L NC, sat'ing at 93% Cardiology NSTEMI -07/03 Troponins elevated 0.48, 0.67, 0.67 - Cardiology consulted - Dr. Saxena. Cardiac cath on hold due to persistent thrombocytopenia. Hold Lasix per cardio. - Continue Cardizem 60 mg PO TID and Dig for new onset A fib. Currently in NSR. - Dig level 07/20 is 0.9 WNL - Hold IVF d/t poor EF. - Hold Heparin drip HFrEF - BNP 61376 on 07/03 - 07/03/18 echo report shows EF 14.2%, mildly dilated LV, systolic function severely impaired, akinetic septum, TR and pulm HTN -continue digoxin 0.125mg IV, cardizem 60mg TID Chronic Thrombocytopenia, ITP - Received previous transfusions as outpatient - PLT 18, manual count 28 today - s/p 1 unit platelets on 07/20/18 - total 5 unit PLT transfused. IV gammaglobulin 5 day course completed - Will transfuse if <20 or actively bleeding per Hem recs - Will hold off on DVT chemoprophylaxis at this time, may resume of platelets >50 per heme/onc - Hem consult placed- Dr. Estevez - Negative IVONE and ANCA studies, ESR 45, HIT antibody negative - 07/08/18 Peripheral smear shows no atypical cells or immature forms. Mild anisopoikilocytosis. No schistocytes. No PL clumping although markedly reduced. Endo Uncontrolled DM - glucose 140 this morning, stopped insulin drip and resume levemir and ACHS. - Hgb a1c 8.2, accuchecks ACHS - Diabetic education GI - Dobhoff in place, on Nepro and free water flushes - swallow eval 07/17/18: Pt. poorly responsive, with hyper gag reflex. No response to oral stimulation or spoon/straw tip. Open mouth posture for breathing - Lipid panel - TG elevated at 172 - Shock liver resolved - Hep panel negative - 07/03/18 RUQ U/S shows hepatosplenomegaly - protonic for PPX Nephro OG on HD - now off HD - Tolerated first HD on 07/07/18 - BUN/Cr stable, 107/2.3 from 108/2.3 yesterday. Hold ACEI/ARB - Strict Is and Os, oliveros in place - sodium is elevated at 160 started on 07/08 NS at 100cc - K of 5.6, given kayexalate. Repeat BMP later today - CPK pending - Nephro consult - recs appreciated - Continue water flushes per Nephro recs in light of low EF. - F/u nephro recs to consider repeating urine electrolytes ID - Tmax of 100.6 overnight, WBC downtrending today - s/p treatment of flu and pna with tamiflu and merrem/doxy - Ammonia level <9 - ID eval: Dr. Fernandes, monitor off antibiotic at this time - Repeat blood cx neg after 5 days, repeat UA negative, repeat sputum cx growing moderate amount of yeast. Dispo: Approved for LTAC, awaiting family choice of LTAC facility. Patient seen and case discussed with attending, Dr. Sung. <Golden Sung - Last Filed: 07/21/18 14:41> CCU Objective - Vital Signs / Intake & Output Vital Signs (Last 4 hours): Vital Signs Pulse BP 07/21/18 14:08 84 127/63 Intake and Output (Last 8hrs): Intake & Output 07/20/18 07/21/18 07/21/18 22:59 06:59 14:59 Intake Total 1399 2080 9 Output Total 1300 1000 Balance 99 1080 9 Intake: IV 591 1200 9 Right Forearm 570 1200 Tube Feeding 100 480 Blood Product 308 Other 400 400 Output: Urine 1300 1000 Urethral (Oliveros) 1300 1000 Emesis 0 Other: # Bowel Movements 0 - Medications Active Medications: Active Medications Generic Name Dose Route Start Last Admin Trade Name Freq PRN Reason Stop Dose Admin Acetaminophen 650 mg 07/08/18 18:18 07/20/18 13:20 Tylenol 650mg/20.3ml Solution Ud PO 650 mg Q6H PRN Administration Fever 101F Albuterol/Ipratropium 3 ml 07/03/18 14:00 07/21/18 13:19 Duoneb 3 Mg/0.5 Mg (3 Ml) Ud IH 3 ml [id number] SEEMA Administration Albuterol/Ipratropium 3 ml 07/03/18 11:04 07/11/18 23:55 Duoneb 3 Mg/0.5 Mg (3 Ml) Ud IH 3 ml Q2H PRN Administration Shortness of Breath Digoxin 0.125 mg 07/13/18 14:00 07/21/18 14:09 Lanoxin IVP 0.125 mg 1400 SEEMA Administration Diltiazem HCl 60 mg 07/17/18 14:00 07/21/18 14:08 Cardizem PO 60 mg TID SEEMA Administration Famotidine 20 mg 07/22/18 10:00 Pepcid IVP DAILY SEEMA Sodium Chloride 1,000 mls @ 100 mls/hr 07/20/18 10:15 07/21/18 10:33 Sodium Chloride 0.45% IV 100 mls/hr .Q10H SEEMA Administration Dexamethasone 40 mg/ Sodium 60 mls @ 120 mls/hr 07/20/18 12:00 07/21/18 10:30 Chloride IV 120 mls/hr DAILY SEEMA Administration Insulin Detemir 30 unit 07/17/18 10:39 07/19/18 21:47 Levemir SC 30 units HS SEEMA Administration Insulin Human Regular 0 units 07/19/18 07:38 07/21/18 12:28 Humulin R Med SC 3 units ACHS SEEMA Administration Protocol Non-Formulary Medication 75 mg 07/20/18 11:45 07/21/18 10:30 Eltrombopag Olamine [Promacta] PO Not Given DAILY SEEMA Vitamin A 1 applic 07/13/18 16:53 Vitamin A&D TP Q8 PRN Dry mouth - Patient Studies Lab Studies: Microbiology Studies 07/19/18 10:30 Blood Culture - Preliminary Blood NO GROWTH AFTER 48 HOURS 07/19/18 10:55 Blood Culture - Preliminary Blood NO GROWTH AFTER 48 HOURS Lab Studies 07/21/18 07/21/18 07/21/18 Range/Units 13:24 11:32 10:41 WBC (4.5-11.0) 10^3/uL RBC (3.5-6.1) 10^6/uL Hgb (14.0-18.0) g/dL Hct (42.0-52.0) % MCV (80.0-105.0) fl MCH (25.0-35.0) pg MCHC (31.0-37.0) g/dl RDW (11.5-14.5) % Plt Count (120.0-450.0) 10^3/uL Manual Plt Count (120-450) K/mm3 Gran % (50.0-68.0) % Lymph % (Auto) (22.0-35.0) % [place] % (Auto) (1.0-6.0) % Eos % (Auto) (1.5-5.0) % Baso % (Auto) (0.0-3.0) % Gran # (1.4-6.5) Lymph # (Auto) (1.2-3.4) [place] # (Auto) (0.1-0.6) Eos # (Auto) (0.0-0.7) Baso # (Auto) (0.0-2.0) K/mm3 Neutrophils % (Manual) (50.0-70.0) % Lymphocytes % (Manual) (22.0-35.0) % Monocytes % (Manual) (1.0-6.0) % Poikilocytosis (manual Ovalocytes pCO2 (35-45) mm/Hg pO2 (80-100) mm/Hg HCO3 (21-28) mmol/L ABG pH (7.35-7.45) ABG Total CO2 (22-28) mmol.L ABG O2 Saturation (95-98) % ABG O2 Content (15-23) ML/dl ABG Base Excess (-2.0-3.0) mmol/L ABG Hemoglobin (11.7-17.4) g/dL ABG Carboxyhemoglobin (0.5-1.5) % POC ABG HHb (Measured) (0-5) % ABG Methemoglobin (0.0-3.0) % ABG O2 Capacity (16-24) mL/dl Hgb O2 Saturation (95.0-98.0) % FiO2 % Sodium (132-148) mmol/L Potassium (3.6-5.0) mmol/L Chloride (98-107) mmol/L Carbon Dioxide (21-33) mmol/L Anion Gap (10-20) BUN (7-21) mg/dL Creatinine (0.8-1.5) mg/dl Est GFR ( Amer) Est GFR (Non-Af Amer) POC Glucose (mg/dL) 211 H 206 H (65-110) mg/dL Random Glucose (70-110) mg/dL Calcium (8.4-10.5) mg/dL Total Bilirubin (0.2-1.3) mg/dL Direct Bilirubin (0.0-0.4) mg/dL AST (17-59) U/L ALT (7-56) U/L Alkaline Phosphatase (38-126) U/L Total Creatine Kinase 320 H (35-230) U/L CK-MB (CK-2) 7.4 H (0.0-3.6) ng/mL CK-MB (CK-2) % 2.3 L (2.5-3.0) % Total Protein (5.8-8.3) g/dL Albumin (3.0-4.8) g/dL Globulin gm/dL Albumin/Globulin Ratio (1.1-1.8) 07/21/18 07/21/18 07/21/18 Range/Units 10:25 09:08 08:00 WBC (4.5-11.0) 10^3/uL RBC (3.5-6.1) 10^6/uL Hgb (14.0-18.0) g/dL Hct (42.0-52.0) % MCV (80.0-105.0) fl MCH (25.0-35.0) pg MCHC (31.0-37.0) g/dl RDW (11.5-14.5) % Plt Count (120.0-450.0) 10^3/uL Manual Plt Count 28 L* (120-450) K/mm3 Gran % (50.0-68.0) % Lymph % (Auto) (22.0-35.0) % [place] % (Auto) (1.0-6.0) % Eos % (Auto) (1.5-5.0) % Baso % (Auto) (0.0-3.0) % Gran # (1.4-6.5) Lymph # (Auto) (1.2-3.4) [place] # (Auto) (0.1-0.6) Eos # (Auto) (0.0-0.7) Baso # (Auto) (0.0-2.0) K/mm3 Neutrophils % (Manual) (50.0-70.0) % Lymphocytes % (Manual) (22.0-35.0) % Monocytes % (Manual) (1.0-6.0) % Poikilocytosis (manual Ovalocytes pCO2 (35-45) mm/Hg pO2 (80-100) mm/Hg HCO3 (21-28) mmol/L ABG pH (7.35-7.45) ABG Total CO2 (22-28) mmol.L ABG O2 Saturation (95-98) % ABG O2 Content (15-23) ML/dl ABG Base Excess (-2.0-3.0) mmol/L ABG Hemoglobin (11.7-17.4) g/dL ABG Carboxyhemoglobin (0.5-1.5) % POC ABG HHb (Measured) (0-5) % ABG Methemoglobin (0.0-3.0) % ABG O2 Capacity (16-24) mL/dl Hgb O2 Saturation (95.0-98.0) % FiO2 % Sodium (132-148) mmol/L Potassium (3.6-5.0) mmol/L Chloride (98-107) mmol/L Carbon Dioxide (21-33) mmol/L Anion Gap (10-20) BUN (7-21) mg/dL Creatinine (0.8-1.5) mg/dl Est GFR ( Amer) Est GFR (Non-Af Amer) POC Glucose (mg/dL) 190 H 170 H (65-110) mg/dL Random Glucose (70-110) mg/dL Calcium (8.4-10.5) mg/dL Total Bilirubin (0.2-1.3) mg/dL Direct Bilirubin (0.0-0.4) mg/dL AST (17-59) U/L ALT (7-56) U/L Alkaline Phosphatase (38-126) U/L Total Creatine Kinase (35-230) U/L CK-MB (CK-2) (0.0-3.6) ng/mL CK-MB (CK-2) % (2.5-3.0) % Total Protein (5.8-8.3) g/dL Albumin (3.0-4.8) g/dL Globulin gm/dL Albumin/Globulin Ratio (1.1-1.8) 07/21/18 07/21/18 07/21/18 Range/Units 07:34 06:20 06:20 WBC 16.9 H (4.5-11.0) 10^3/uL RBC 3.69 (3.5-6.1) 10^6/uL Hgb 9.9 L (14.0-18.0) g/dL Hct 33.4 L (42.0-52.0) % MCV 90.5 (80.0-105.0) fl MCH 26.8 (25.0-35.0) pg MCHC 29.6 L (31.0-37.0) g/dl RDW 16.8 H (11.5-14.5) % Plt Count 18 L* (120.0-450.0) 10^3/uL Manual Plt Count (120-450) K/mm3 Gran % 96.1 H (50.0-68.0) % Lymph % (Auto) 2.2 L (22.0-35.0) % [place] % (Auto) 1.7 (1.0-6.0) % Eos % (Auto) 0.0 L (1.5-5.0) % Baso % (Auto) 0.0 (0.0-3.0) % Gran # 16.27 H (1.4-6.5) Lymph # (Auto) 0.4 L (1.2-3.4) [place] # (Auto) 0.3 (0.1-0.6) Eos # (Auto) 0.0 (0.0-0.7) Baso # (Auto) 0.00 (0.0-2.0) K/mm3 Neutrophils % (Manual) 96 H (50.0-70.0) % Lymphocytes % (Manual) 2 L (22.0-35.0) % Monocytes % (Manual) 2 (1.0-6.0) % Poikilocytosis (manual Slight Ovalocytes Slight pCO2 (35-45) mm/Hg pO2 (80-100) mm/Hg HCO3 (21-28) mmol/L ABG pH (7.35-7.45) ABG Total CO2 (22-28) mmol.L ABG O2 Saturation (95-98) % ABG O2 Content (15-23) ML/dl ABG Base Excess (-2.0-3.0) mmol/L ABG Hemoglobin (11.7-17.4) g/dL ABG Carboxyhemoglobin (0.5-1.5) % POC ABG HHb (Measured) (0-5) % ABG Methemoglobin (0.0-3.0) % ABG O2 Capacity (16-24) mL/dl Hgb O2 Saturation (95.0-98.0) % FiO2 % Sodium 160 H* (132-148) mmol/L Potassium 5.6 H* (3.6-5.0) mmol/L Chloride 133 H (98-107) mmol/L Carbon Dioxide 24 (21-33) mmol/L Anion Gap 9 L (10-20) BUN 114 H (7-21) mg/dL Creatinine 2.0 H (0.8-1.5) mg/dl Est GFR ( Amer) 41 Est GFR (Non-Af Amer) 34 POC Glucose (mg/dL) 142 H (65-110) mg/dL Random Glucose 140 H (70-110) mg/dL Calcium 9.2 (8.4-10.5) mg/dL Total Bilirubin 0.7 (0.2-1.3) mg/dL Direct Bilirubin 0.4 (0.0-0.4) mg/dL AST 57 (17-59) U/L ALT 79 H (7-56) U/L Alkaline Phosphatase 95 (38-126) U/L Total Creatine Kinase (35-230) U/L CK-MB (CK-2) (0.0-3.6) ng/mL CK-MB (CK-2) % (2.5-3.0) % Total Protein 6.8 (5.8-8.3) g/dL Albumin 3.1 (3.0-4.8) g/dL Globulin 3.7 gm/dL Albumin/Globulin Ratio 0.8 L (1.1-1.8) 07/21/18 07/21/18 07/21/18 Range/Units 06:05 05:17 04:02 WBC (4.5-11.0) 10^3/uL RBC (3.5-6.1) 10^6/uL Hgb (14.0-18.0) g/dL Hct (42.0-52.0) % MCV (80.0-105.0) fl MCH (25.0-35.0) pg MCHC (31.0-37.0) g/dl RDW (11.5-14.5) % Plt Count (120.0-450.0) 10^3/uL Manual Plt Count (120-450) K/mm3 Gran % (50.0-68.0) % Lymph % (Auto) (22.0-35.0) % [place] % (Auto) (1.0-6.0) % Eos % (Auto) (1.5-5.0) % Baso % (Auto) (0.0-3.0) % Gran # (1.4-6.5) Lymph # (Auto) (1.2-3.4) [place] # (Auto) (0.1-0.6) Eos # (Auto) (0.0-0.7) Baso # (Auto) (0.0-2.0) K/mm3 Neutrophils % (Manual) (50.0-70.0) % Lymphocytes % (Manual) (22.0-35.0) % Monocytes % (Manual) (1.0-6.0) % Poikilocytosis (manual Ovalocytes pCO2 (35-45) mm/Hg pO2 (80-100) mm/Hg HCO3 (21-28) mmol/L ABG pH (7.35-7.45) ABG Total CO2 (22-28) mmol.L ABG O2 Saturation (95-98) % ABG O2 Content (15-23) ML/dl ABG Base Excess (-2.0-3.0) mmol/L ABG Hemoglobin (11.7-17.4) g/dL ABG Carboxyhemoglobin (0.5-1.5) % POC ABG HHb (Measured) (0-5) % ABG Methemoglobin (0.0-3.0) % ABG O2 Capacity (16-24) mL/dl Hgb O2 Saturation (95.0-98.0) % FiO2 % Sodium (132-148) mmol/L Potassium (3.6-5.0) mmol/L Chloride (98-107) mmol/L Carbon Dioxide (21-33) mmol/L Anion Gap (10-20) BUN (7-21) mg/dL Creatinine (0.8-1.5) mg/dl Est GFR ( Amer) Est GFR (Non-Af Amer) POC Glucose (mg/dL) 129 H 153 H 137 H (65-110) mg/dL Random Glucose (70-110) mg/dL Calcium (8.4-10.5) mg/dL Total Bilirubin (0.2-1.3) mg/dL Direct Bilirubin (0.0-0.4) mg/dL AST (17-59) U/L ALT (7-56) U/L Alkaline Phosphatase (38-126) U/L Total Creatine Kinase (35-230) U/L CK-MB (CK-2) (0.0-3.6) ng/mL CK-MB (CK-2) % (2.5-3.0) % Total Protein (5.8-8.3) g/dL Albumin (3.0-4.8) g/dL Globulin gm/dL Albumin/Globulin Ratio (1.1-1.8) 07/21/18 07/21/18 07/20/18 Range/Units 01:15 00:14 23:02 WBC (4.5-11.0) 10^3/uL RBC (3.5-6.1) 10^6/uL Hgb (14.0-18.0) g/dL Hct (42.0-52.0) % MCV (80.0-105.0) fl MCH (25.0-35.0) pg MCHC (31.0-37.0) g/dl RDW (11.5-14.5) % Plt Count (120.0-450.0) 10^3/uL Manual Plt Count (120-450) K/mm3 Gran % (50.0-68.0) % Lymph % (Auto) (22.0-35.0) % [place] % (Auto) (1.0-6.0) % Eos % (Auto) (1.5-5.0) % Baso % (Auto) (0.0-3.0) % Gran # (1.4-6.5) Lymph # (Auto) (1.2-3.4) [place] # (Auto) (0.1-0.6) Eos # (Auto) (0.0-0.7) Baso # (Auto) (0.0-2.0) K/mm3 Neutrophils % (Manual) (50.0-70.0) % Lymphocytes % (Manual) (22.0-35.0) % Monocytes % (Manual) (1.0-6.0) % Poikilocytosis (manual Ovalocytes pCO2 (35-45) mm/Hg pO2 (80-100) mm/Hg HCO3 (21-28) mmol/L ABG pH (7.35-7.45) ABG Total CO2 (22-28) mmol.L ABG O2 Saturation (95-98) % ABG O2 Content (15-23) ML/dl ABG Base Excess (-2.0-3.0) mmol/L ABG Hemoglobin (11.7-17.4) g/dL ABG Carboxyhemoglobin (0.5-1.5) % POC ABG HHb (Measured) (0-5) % ABG Methemoglobin (0.0-3.0) % ABG O2 Capacity (16-24) mL/dl Hgb O2 Saturation (95.0-98.0) % FiO2 % Sodium (132-148) mmol/L Potassium (3.6-5.0) mmol/L Chloride (98-107) mmol/L Carbon Dioxide (21-33) mmol/L Anion Gap (10-20) BUN (7-21) mg/dL Creatinine (0.8-1.5) mg/dl Est GFR ( Amer) Est GFR (Non-Af Amer) POC Glucose (mg/dL) 162 H 164 H 173 H (65-110) mg/dL Random Glucose (70-110) mg/dL Calcium (8.4-10.5) mg/dL Total Bilirubin (0.2-1.3) mg/dL Direct Bilirubin (0.0-0.4) mg/dL AST (17-59) U/L ALT (7-56) U/L Alkaline Phosphatase (38-126) U/L Total Creatine Kinase (35-230) U/L CK-MB (CK-2) (0.0-3.6) ng/mL CK-MB (CK-2) % (2.5-3.0) % Total Protein (5.8-8.3) g/dL Albumin (3.0-4.8) g/dL Globulin gm/dL Albumin/Globulin Ratio (1.1-1.8) 07/20/18 07/20/18 07/20/18 Range/Units 22:11 21:16 20:07 WBC (4.5-11.0) 10^3/uL RBC (3.5-6.1) 10^6/uL Hgb (14.0-18.0) g/dL Hct (42.0-52.0) % MCV (80.0-105.0) fl MCH (25.0-35.0) pg MCHC (31.0-37.0) g/dl RDW (11.5-14.5) % Plt Count (120.0-450.0) 10^3/uL Manual Plt Count (120-450) K/mm3 Gran % (50.0-68.0) % Lymph % (Auto) (22.0-35.0) % [place] % (Auto) (1.0-6.0) % Eos % (Auto) (1.5-5.0) % Baso % (Auto) (0.0-3.0) % Gran # (1.4-6.5) Lymph # (Auto) (1.2-3.4) [place] # (Auto) (0.1-0.6) Eos # (Auto) (0.0-0.7) Baso # (Auto) (0.0-2.0) K/mm3 Neutrophils % (Manual) (50.0-70.0) % Lymphocytes % (Manual) (22.0-35.0) % Monocytes % (Manual) (1.0-6.0) % Poikilocytosis (manual Ovalocytes pCO2 (35-45) mm/Hg pO2 (80-100) mm/Hg HCO3 (21-28) mmol/L ABG pH (7.35-7.45) ABG Total CO2 (22-28) mmol.L ABG O2 Saturation (95-98) % ABG O2 Content (15-23) ML/dl ABG Base Excess (-2.0-3.0) mmol/L ABG Hemoglobin (11.7-17.4) g/dL ABG Carboxyhemoglobin (0.5-1.5) % POC ABG HHb (Measured) (0-5) % ABG Methemoglobin (0.0-3.0) % ABG O2 Capacity (16-24) mL/dl Hgb O2 Saturation (95.0-98.0) % FiO2 % Sodium (132-148) mmol/L Potassium (3.6-5.0) mmol/L Chloride (98-107) mmol/L Carbon Dioxide (21-33) mmol/L Anion Gap (10-20) BUN (7-21) mg/dL Creatinine (0.8-1.5) mg/dl Est GFR ( Amer) Est GFR (Non-Af Amer) POC Glucose (mg/dL) 158 H 147 H 144 H (65-110) mg/dL Random Glucose (70-110) mg/dL Calcium (8.4-10.5) mg/dL Total Bilirubin (0.2-1.3) mg/dL Direct Bilirubin (0.0-0.4) mg/dL AST (17-59) U/L ALT (7-56) U/L Alkaline Phosphatase (38-126) U/L Total Creatine Kinase (35-230) U/L CK-MB (CK-2) (0.0-3.6) ng/mL CK-MB (CK-2) % (2.5-3.0) % Total Protein (5.8-8.3) g/dL Albumin (3.0-4.8) g/dL Globulin gm/dL Albumin/Globulin Ratio (1.1-1.8) 07/20/18 07/20/18 07/20/18 Range/Units 19:03 18:00 17:06 WBC (4.5-11.0) 10^3/uL RBC (3.5-6.1) 10^6/uL Hgb (14.0-18.0) g/dL Hct (42.0-52.0) % MCV (80.0-105.0) fl MCH (25.0-35.0) pg MCHC (31.0-37.0) g/dl RDW (11.5-14.5) % Plt Count (120.0-450.0) 10^3/uL Manual Plt Count (120-450) K/mm3 Gran % (50.0-68.0) % Lymph % (Auto) (22.0-35.0) % [place] % (Auto) (1.0-6.0) % Eos % (Auto) (1.5-5.0) % Baso % (Auto) (0.0-3.0) % Gran # (1.4-6.5) Lymph # (Auto) (1.2-3.4) [place] # (Auto) (0.1-0.6) Eos # (Auto) (0.0-0.7) Baso # (Auto) (0.0-2.0) K/mm3 Neutrophils % (Manual) (50.0-70.0) % Lymphocytes % (Manual) (22.0-35.0) % Monocytes % (Manual) (1.0-6.0) % Poikilocytosis (manual Ovalocytes pCO2 (35-45) mm/Hg pO2 (80-100) mm/Hg HCO3 (21-28) mmol/L ABG pH (7.35-7.45) ABG Total CO2 (22-28) mmol.L ABG O2 Saturation (95-98) % ABG O2 Content (15-23) ML/dl ABG Base Excess (-2.0-3.0) mmol/L ABG Hemoglobin (11.7-17.4) g/dL ABG Carboxyhemoglobin (0.5-1.5) % POC ABG HHb (Measured) (0-5) % ABG Methemoglobin (0.0-3.0) % ABG O2 Capacity (16-24) mL/dl Hgb O2 Saturation (95.0-98.0) % FiO2 % Sodium (132-148) mmol/L Potassium (3.6-5.0) mmol/L Chloride (98-107) mmol/L Carbon Dioxide (21-33) mmol/L Anion Gap (10-20) BUN (7-21) mg/dL Creatinine (0.8-1.5) mg/dl Est GFR ( Amer) Est GFR (Non-Af Amer) POC Glucose (mg/dL) 179 H 203 H 219 H (65-110) mg/dL Random Glucose (70-110) mg/dL Calcium (8.4-10.5) mg/dL Total Bilirubin (0.2-1.3) mg/dL Direct Bilirubin (0.0-0.4) mg/dL AST (17-59) U/L ALT (7-56) U/L Alkaline Phosphatase (38-126) U/L Total Creatine Kinase (35-230) U/L CK-MB (CK-2) (0.0-3.6) ng/mL CK-MB (CK-2) % (2.5-3.0) % Total Protein (5.8-8.3) g/dL Albumin (3.0-4.8) g/dL Globulin gm/dL Albumin/Globulin Ratio (1.1-1.8) 07/20/18 07/20/18 07/20/18 Range/Units 16:09 15:03 14:40 WBC (4.5-11.0) 10^3/uL RBC (3.5-6.1) 10^6/uL Hgb (14.0-18.0) g/dL Hct (42.0-52.0) % MCV (80.0-105.0) fl MCH (25.0-35.0) pg MCHC (31.0-37.0) g/dl RDW (11.5-14.5) % Plt Count (120.0-450.0) 10^3/uL Manual Plt Count (120-450) K/mm3 Gran % (50.0-68.0) % Lymph % (Auto) (22.0-35.0) % [place] % (Auto) (1.0-6.0) % Eos % (Auto) (1.5-5.0) % Baso % (Auto) (0.0-3.0) % Gran # (1.4-6.5) Lymph # (Auto) (1.2-3.4) [place] # (Auto) (0.1-0.6) Eos # (Auto) (0.0-0.7) Baso # (Auto) (0.0-2.0) K/mm3 Neutrophils % (Manual) (50.0-70.0) % Lymphocytes % (Manual) (22.0-35.0) % Monocytes % (Manual) (1.0-6.0) % Poikilocytosis (manual Ovalocytes pCO2 41 (35-45) mm/Hg pO2 74.0 L (80-100) mm/Hg HCO3 21.1 (21-28) mmol/L ABG pH 7.32 L (7.35-7.45) ABG Total CO2 22.4 (22-28) mmol.L ABG O2 Saturation 97.8 (95-98) % ABG O2 Content 12.1 L (15-23) ML/dl ABG Base Excess -4.7 L (-2.0-3.0) mmol/L ABG Hemoglobin 9.1 L (11.7-17.4) g/dL ABG Carboxyhemoglobin 2.6 H (0.5-1.5) % POC ABG HHb (Measured) 2.1 (0-5) % ABG Methemoglobin 1.4 (0.0-3.0) % ABG O2 Capacity 12.4 L (16-24) mL/dl Hgb O2 Saturation 94.0 L (95.0-98.0) % FiO2 32.0 % Sodium (132-148) mmol/L Potassium (3.6-5.0) mmol/L Chloride (98-107) mmol/L Carbon Dioxide (21-33) mmol/L Anion Gap (10-20) BUN (7-21) mg/dL Creatinine (0.8-1.5) mg/dl Est GFR ( Amer) Est GFR (Non-Af Amer) POC Glucose (mg/dL) 239 H 291 H (65-110) mg/dL Random Glucose (70-110) mg/dL Calcium (8.4-10.5) mg/dL Total Bilirubin (0.2-1.3) mg/dL Direct Bilirubin (0.0-0.4) mg/dL AST (17-59) U/L ALT (7-56) U/L Alkaline Phosphatase (38-126) U/L Total Creatine Kinase (35-230) U/L CK-MB (CK-2) (0.0-3.6) ng/mL CK-MB (CK-2) % (2.5-3.0) % Total Protein (5.8-8.3) g/dL Albumin (3.0-4.8) g/dL Globulin gm/dL Albumin/Globulin Ratio (1.1-1.8) 07/20/18 07/20/18 Range/Units 14:14 12:55 WBC (4.5-11.0) 10^3/uL RBC (3.5-6.1) 10^6/uL Hgb (14.0-18.0) g/dL Hct (42.0-52.0) % MCV (80.0-105.0) fl MCH (25.0-35.0) pg MCHC (31.0-37.0) g/dl RDW (11.5-14.5) % Plt Count (120.0-450.0) 10^3/uL Manual Plt Count (120-450) K/mm3 Gran % (50.0-68.0) % Lymph % (Auto) (22.0-35.0) % [place] % (Auto) (1.0-6.0) % Eos % (Auto) (1.5-5.0) % Baso % (Auto) (0.0-3.0) % Gran # (1.4-6.5) Lymph # (Auto) (1.2-3.4) [place] # (Auto) (0.1-0.6) Eos # (Auto) (0.0-0.7) Baso # (Auto) (0.0-2.0) K/mm3 Neutrophils % (Manual) (50.0-70.0) % Lymphocytes % (Manual) (22.0-35.0) % Monocytes % (Manual) (1.0-6.0) % Poikilocytosis (manual Ovalocytes pCO2 (35-45) mm/Hg pO2 (80-100) mm/Hg HCO3 (21-28) mmol/L ABG pH (7.35-7.45) ABG Total CO2 (22-28) mmol.L ABG O2 Saturation (95-98) % ABG O2 Content (15-23) ML/dl ABG Base Excess (-2.0-3.0) mmol/L ABG Hemoglobin (11.7-17.4) g/dL ABG Carboxyhemoglobin (0.5-1.5) % POC ABG HHb (Measured) (0-5) % ABG Methemoglobin (0.0-3.0) % ABG O2 Capacity (16-24) mL/dl Hgb O2 Saturation (95.0-98.0) % FiO2 % Sodium (132-148) mmol/L Potassium (3.6-5.0) mmol/L Chloride (98-107) mmol/L Carbon Dioxide (21-33) mmol/L Anion Gap (10-20) BUN (7-21) mg/dL Creatinine (0.8-1.5) mg/dl Est GFR ( Amer) Est GFR (Non-Af Amer) POC Glucose (mg/dL) 343 H 336 H (65-110) mg/dL Random Glucose (70-110) mg/dL Calcium (8.4-10.5) mg/dL Total Bilirubin (0.2-1.3) mg/dL Direct Bilirubin (0.0-0.4) mg/dL AST (17-59) U/L ALT (7-56) U/L Alkaline Phosphatase (38-126) U/L Total Creatine Kinase (35-230) U/L CK-MB (CK-2) (0.0-3.6) ng/mL CK-MB (CK-2) % (2.5-3.0) % Total Protein (5.8-8.3) g/dL Albumin (3.0-4.8) g/dL Globulin gm/dL Albumin/Globulin Ratio (1.1-1.8) Laboratory Results - last 24 hr 07/20/18 07/20/18 07/20/18 12:55 14:14 14:40 WBC RBC Hgb Hct MCV MCH MCHC RDW Plt Count Manual Plt Count Gran % Lymph % (Auto) [place] % (Auto) Eos % (Auto) Baso % (Auto) Gran # Lymph # (Auto) [place] # (Auto) Eos # (Auto) Baso # (Auto) Neutrophils % (Manual) Lymphocytes % (Manual) Monocytes % (Manual) Poikilocytosis (manual Ovalocytes pCO2 41 pO2 74.0 L HCO3 21.1 ABG pH 7.32 L ABG Total CO2 22.4 ABG O2 Saturation 97.8 ABG O2 Content 12.1 L ABG Base Excess -4.7 L ABG Hemoglobin 9.1 L ABG Carboxyhemoglobin 2.6 H POC ABG HHb (Measured) 2.1 ABG Methemoglobin 1.4 ABG O2 Capacity 12.4 L Hgb O2 Saturation 94.0 L FiO2 32.0 Sodium Potassium Chloride Carbon Dioxide Anion Gap BUN Creatinine Est GFR ( Amer) Est GFR (Non-Af Amer) POC Glucose (mg/dL) 336 H 343 H Random Glucose Calcium Total Bilirubin Direct Bilirubin AST ALT Alkaline Phosphatase Total Creatine Kinase CK-MB (CK-2) CK-MB (CK-2) % Total Protein Albumin Globulin Albumin/Globulin Ratio 07/20/18 07/20/18 07/20/18 15:03 16:09 17:06 WBC RBC Hgb Hct MCV MCH MCHC RDW Plt Count Manual Plt Count Gran % Lymph % (Auto) [place] % (Auto) Eos % (Auto) Baso % (Auto) Gran # Lymph # (Auto) [place] # (Auto) Eos # (Auto) Baso # (Auto) Neutrophils % (Manual) Lymphocytes % (Manual) Monocytes % (Manual) Poikilocytosis (manual Ovalocytes pCO2 pO2 HCO3 ABG pH ABG Total CO2 ABG O2 Saturation ABG O2 Content ABG Base Excess ABG Hemoglobin ABG Carboxyhemoglobin POC ABG HHb (Measured) ABG Methemoglobin ABG O2 Capacity Hgb O2 Saturation FiO2 Sodium Potassium Chloride Carbon Dioxide Anion Gap BUN Creatinine Est GFR ( Amer) Est GFR (Non-Af Amer) POC Glucose (mg/dL) 291 H 239 H 219 H Random Glucose Calcium Total Bilirubin Direct Bilirubin AST ALT Alkaline Phosphatase Total Creatine Kinase CK-MB (CK-2) CK-MB (CK-2) % Total Protein Albumin Globulin Albumin/Globulin Ratio 07/20/18 07/20/18 07/20/18 18:00 19:03 20:07 WBC RBC Hgb Hct MCV MCH MCHC RDW Plt Count Manual Plt Count Gran % Lymph % (Auto) [place] % (Auto) Eos % (Auto) Baso % (Auto) Gran # Lymph # (Auto) [place] # (Auto) Eos # (Auto) Baso # (Auto) Neutrophils % (Manual) Lymphocytes % (Manual) Monocytes % (Manual) Poikilocytosis (manual Ovalocytes pCO2 pO2 HCO3 ABG pH ABG Total CO2 ABG O2 Saturation ABG O2 Content ABG Base Excess ABG Hemoglobin ABG Carboxyhemoglobin POC ABG HHb (Measured) ABG Methemoglobin ABG O2 Capacity Hgb O2 Saturation FiO2 Sodium Potassium Chloride Carbon Dioxide Anion Gap BUN Creatinine Est GFR ( Amer) Est GFR (Non-Af Amer) POC Glucose (mg/dL) 203 H 179 H 144 H Random Glucose Calcium Total Bilirubin Direct Bilirubin AST ALT Alkaline Phosphatase Total Creatine Kinase CK-MB (CK-2) CK-MB (CK-2) % Total Protein Albumin Globulin Albumin/Globulin Ratio 07/20/18 07/20/18 07/20/18 21:16 22:11 23:02 WBC RBC Hgb Hct MCV MCH MCHC RDW Plt Count Manual Plt Count Gran % Lymph % (Auto) [place] % (Auto) Eos % (Auto) Baso % (Auto) Gran # Lymph # (Auto) [place] # (Auto) Eos # (Auto) Baso # (Auto) Neutrophils % (Manual) Lymphocytes % (Manual) Monocytes % (Manual) Poikilocytosis (manual Ovalocytes pCO2 pO2 HCO3 ABG pH ABG Total CO2 ABG O2 Saturation ABG O2 Content ABG Base Excess ABG Hemoglobin ABG Carboxyhemoglobin POC ABG HHb (Measured) ABG Methemoglobin ABG O2 Capacity Hgb O2 Saturation FiO2 Sodium Potassium Chloride Carbon Dioxide Anion Gap BUN Creatinine Est GFR ( Amer) Est GFR (Non-Af Amer) POC Glucose (mg/dL) 147 H 158 H 173 H Random Glucose Calcium Total Bilirubin Direct Bilirubin AST ALT Alkaline Phosphatase Total Creatine Kinase CK-MB (CK-2) CK-MB (CK-2) % Total Protein Albumin Globulin Albumin/Globulin Ratio 07/21/18 07/21/18 07/21/18 00:14 01:15 04:02 WBC RBC Hgb Hct MCV MCH MCHC RDW Plt Count Manual Plt Count Gran % Lymph % (Auto) [place] % (Auto) Eos % (Auto) Baso % (Auto) Gran # Lymph # (Auto) [place] # (Auto) Eos # (Auto) Baso # (Auto) Neutrophils % (Manual) Lymphocytes % (Manual) Monocytes % (Manual) Poikilocytosis (manual Ovalocytes pCO2 pO2 HCO3 ABG pH ABG Total CO2 ABG O2 Saturation ABG O2 Content ABG Base Excess ABG Hemoglobin ABG Carboxyhemoglobin POC ABG HHb (Measured) ABG Methemoglobin ABG O2 Capacity Hgb O2 Saturation FiO2 Sodium Potassium Chloride Carbon Dioxide Anion Gap BUN Creatinine Est GFR ( Amer) Est GFR (Non-Af Amer) POC Glucose (mg/dL) 164 H 162 H 137 H Random Glucose Calcium Total Bilirubin Direct Bilirubin AST ALT Alkaline Phosphatase Total Creatine Kinase CK-MB (CK-2) CK-MB (CK-2) % Total Protein Albumin Globulin Albumin/Globulin Ratio 07/21/18 07/21/18 07/21/18 05:17 06:05 06:20 WBC 16.9 H RBC 3.69 Hgb 9.9 L Hct 33.4 L MCV 90.5 MCH 26.8 MCHC 29.6 L RDW 16.8 H Plt Count 18 L* Manual Plt Count Gran % 96.1 H Lymph % (Auto) 2.2 L [place] % (Auto) 1.7 Eos % (Auto) 0.0 L Baso % (Auto) 0.0 Gran # 16.27 H Lymph # (Auto) 0.4 L [place] # (Auto) 0.3 Eos # (Auto) 0.0 Baso # (Auto) 0.00 Neutrophils % (Manual) 96 H Lymphocytes % (Manual) 2 L Monocytes % (Manual) 2 Poikilocytosis (manual Slight Ovalocytes Slight pCO2 pO2 HCO3 ABG pH ABG Total CO2 ABG O2 Saturation ABG O2 Content ABG Base Excess ABG Hemoglobin ABG Carboxyhemoglobin POC ABG HHb (Measured) ABG Methemoglobin ABG O2 Capacity Hgb O2 Saturation FiO2 Sodium Potassium Chloride Carbon Dioxide Anion Gap BUN Creatinine Est GFR ( Amer) Est GFR (Non-Af Amer) POC Glucose (mg/dL) 153 H 129 H Random Glucose Calcium Total Bilirubin Direct Bilirubin AST ALT Alkaline Phosphatase Total Creatine Kinase CK-MB (CK-2) CK-MB (CK-2) % Total Protein Albumin Globulin Albumin/Globulin Ratio 07/21/18 07/21/18 07/21/18 06:20 07:34 08:00 WBC RBC Hgb Hct MCV MCH MCHC RDW Plt Count Manual Plt Count 28 L* Gran % Lymph % (Auto) [place] % (Auto) Eos % (Auto) Baso % (Auto) Gran # Lymph # (Auto) [place] # (Auto) Eos # (Auto) Baso # (Auto) Neutrophils % (Manual) Lymphocytes % (Manual) Monocytes % (Manual) Poikilocytosis (manual Ovalocytes pCO2 pO2 HCO3 ABG pH ABG Total CO2 ABG O2 Saturation ABG O2 Content ABG Base Excess ABG Hemoglobin ABG Carboxyhemoglobin POC ABG HHb (Measured) ABG Methemoglobin ABG O2 Capacity Hgb O2 Saturation FiO2 Sodium 160 H* Potassium 5.6 H* Chloride 133 H Carbon Dioxide 24 Anion Gap 9 L BUN 114 H Creatinine 2.0 H Est GFR ( Amer) 41 Est GFR (Non-Af Amer) 34 POC Glucose (mg/dL) 142 H Random Glucose 140 H Calcium 9.2 Total Bilirubin 0.7 Direct Bilirubin 0.4 AST 57 ALT 79 H Alkaline Phosphatase 95 Total Creatine Kinase CK-MB (CK-2) CK-MB (CK-2) % Total Protein 6.8 Albumin 3.1 Globulin 3.7 Albumin/Globulin Ratio 0.8 L 07/21/18 07/21/18 07/21/18 09:08 10:25 10:41 WBC RBC Hgb Hct MCV MCH MCHC RDW Plt Count Manual Plt Count Gran % Lymph % (Auto) [place] % (Auto) Eos % (Auto) Baso % (Auto) Gran # Lymph # (Auto) [place] # (Auto) Eos # (Auto) Baso # (Auto) Neutrophils % (Manual) Lymphocytes % (Manual) Monocytes % (Manual) Poikilocytosis (manual Ovalocytes pCO2 pO2 HCO3 ABG pH ABG Total CO2 ABG O2 Saturation ABG O2 Content ABG Base Excess ABG Hemoglobin ABG Carboxyhemoglobin POC ABG HHb (Measured) ABG Methemoglobin ABG O2 Capacity Hgb O2 Saturation FiO2 Sodium Potassium Chloride Carbon Dioxide Anion Gap BUN Creatinine Est GFR ( Amer) Est GFR (Non-Af Amer) POC Glucose (mg/dL) 170 H 190 H Random Glucose Calcium Total Bilirubin Direct Bilirubin AST ALT Alkaline Phosphatase Total Creatine Kinase 320 H CK-MB (CK-2) 7.4 H CK-MB (CK-2) % 2.3 L Total Protein Albumin Globulin Albumin/Globulin Ratio 07/21/18 07/21/18 11:32 13:24 WBC RBC Hgb Hct MCV MCH MCHC RDW Plt Count Manual Plt Count Gran % Lymph % (Auto) [place] % (Auto) Eos % (Auto) Baso % (Auto) Gran # Lymph # (Auto) [place] # (Auto) Eos # (Auto) Baso # (Auto) Neutrophils % (Manual) Lymphocytes % (Manual) Monocytes % (Manual) Poikilocytosis (manual Ovalocytes pCO2 pO2 HCO3 ABG pH ABG Total CO2 ABG O2 Saturation ABG O2 Content ABG Base Excess ABG Hemoglobin ABG Carboxyhemoglobin POC ABG HHb (Measured) ABG Methemoglobin ABG O2 Capacity Hgb O2 Saturation FiO2 Sodium Potassium Chloride Carbon Dioxide Anion Gap BUN Creatinine Est GFR ( Amer) Est GFR (Non-Af Amer) POC Glucose (mg/dL) 206 H 211 H Random Glucose Calcium Total Bilirubin Direct Bilirubin AST ALT Alkaline Phosphatase Total Creatine Kinase CK-MB (CK-2) CK-MB (CK-2) % Total Protein Albumin Globulin Albumin/Globulin Ratio Radiology Impressions: Radiology Impressions Chest X-Ray 07/21/18 08:35 IMPRESSION: No active pulmonary disease. Nasogastric tube terminates in the stomach. Critical Care Progress Note - Nutrition Nutrition: Nutrition Category Date Time Status NPO Diet [DIET] Diets 07/06/18 Breakfast Ordered Assessment/Plan - Assessment and Plan (Free Text) Assessment: Patient seen and examined on rounds, with resident, agree with note with following additions/exceptions: Patient is 62yo male with PMhx of COPD, active smoker 2pks per day, HTN, DM, PVD, admitted for hypoxic respiratory failure, 2/2 Influenza PNA, and superimposed bacterial PNA. Pt is currently extubated, on 3LNC Pt's with chornic thrombocytopenia, no clinical evidence of overt bleeding Adequate UOP Patient with CIP Pt awake not conversive Na uptrending, on 1/2NS No further HD sessions planned PNA ARDS, rs FLU MODS Renal failure, s/p HD Thrombocytopenia rule out ITP/TTP COPD HTN PVD DM CIP Hypernatremia Recommend: - cont with supp o2 as needed, goal sat 90% - monitor off abx, finished course of broad spectrum abx - BP control - monitor LFTs - FS better controlled, DC insulin drip - I/Os - cont 1/2 NS - Free water flushes 200cc Q6hr - follow up cardio - GI ppx - DVT ppx - Monitor in MICU Patient needs ambulance mechanic rehab/Ltach
--- NOTE | 2018-07-21 09:56 | PN ---
SUBJECTIVE: The patient was seen and examined at bedside in the ICU. He was noted to have low grade fevers overnight and otherwise is clinically unchanged. OBJECTIVE: VITAL SIGNS: Temperature 100.6, pulse 94, blood pressure 145/85, respiratory rate 20, oxygen saturation 93% on 2L NC. GENERAL: Somnolent but arousable and in no apparent distress. HEENT: PERRL, EOMI. No scleral icterus. NECK: No JVD. LUNGS: Coarse anterior breath sounds. CARDIOVASCULAR: Regular rate and rhythm. Normal S1, S2. ABDOMEN: Normoactive bowel sounds. Soft, nondistended. EXTREMITIES: 1+ edema in all extremities with multiple areas of ecchymoses. NEUROLOGIC: Somnolent but arousable, able to blink eyes to yes/no questions, not moving extremities. LABORATORY DATA: WBC 16.9 with 96% neutrophils, hemoglobin 9.9, hematocrit 33, platelets 18. Sodium 160, potassium 5.6, chloride 133, bicarb 24, BUN 114, creatinine 2, glucose 140. Blood cultures negative. Urine cultures negative. ASSESSMENT: The patient is a 62-year-old man with multiple medical comorbidities who was admitted to ICU s/p intubation for acute hypoxic respiratory failure and severe sepsis secondary to community-acquired pneumonia who is now s/p extubation. PLAN: 1. Acute hypoxic respiratory failure s/p extubation. Continue with care as per Dr. Burr and ICU team. 2. Severe sepsis secondary to community-acquired pneumonia with influenza. The patient remains off antimicrobials. Continue with care as per Dr. Fernandes. 3. Acute kidney injury secondary to ATN. Continue with care as per Dr. Sullivan. 4. NSTEMI. Input from Dr. Saxena appreciated and the patient will likely require cardiac catheterization when medically stabilized. 5. Atrial fibrillation, new onset, rate controlled. Continue with Diltiazem and Digoxin. 6. Acute systolic heart failure. As above, the patient will require cardiac catheterization when medically stabilized. 7. Hypernatremia. Continue with free water boluses via NG tube and IV fluid hydration. 8. 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 Input from Dr. Mcdaniels appreciated. Continue with PT. 9. Transaminitis, likely secondary to shock liver in the setting of severe sepsis, resolved. 10. Thrombocytopenia secondary to ITP. Input from Dr. Estevez appreciated. Continue with care as per Dr. Estevez. 11. Normocytic anemia. Labs with stable H/H and no evidence of active bleed. 12. Type 2 diabetes mellitus. Continue with insulin infusion. 13. Hypertension. 14. Pseudogout. 15. Anxiety disorder. 16. GERD. 17. Prophylaxis. Continue Protonix for GI prophylaxis and SCDs for DVT prophylaxis. CODE STATUS: Full code. Yassine Martinez MD MTDЮлия
--- NOTE | 2018-07-21 10:12 | PN ---
DATE: 07/21/2018 SUBJECTIVE: The patient remains moderately short of breath at rest. He is in no acute distress. He appears awake, but does not answer commands. His extremities remain flaccid. PHYSICAL EXAMINATION: VITAL SIGNS: Temperature is 100.2, pulse on the monitor is 88, respiratory rate 26/28, blood pressure 130/66. Oxygen saturation on nasal cannula is 94%--98%. HEENT: Normocephalic, atraumatic. NECK: No JVD. CARDIOVASCULAR: Systolic ejection murmur at the lower left sternal border. No S3 gallop. LUNGS: Decreased breath sounds at the bases. Very minimal/less rhonchi. No wheezing. EXTREMITIES: Mild edema. No cyanosis, no clubbing. Calves are nontender to palpation. GASTROINTESTINAL: Abdomen is soft, nontender, nondistended. Bowel sounds are positive. SKIN: No acute rash. NEUROLOGIC: Exam limited at the present time. IMPRESSION: 1. Respiratory failure. 2. Bilateral pneumonia. 3. Rule out myocardial infarction. 4. Ischemic dilated cardiomyopathy. 5. Renal failure. 6. Anemia, thrombocytopenia. 7. Chronic obstructive pulmonary disease. 8. Rule out critical illness polyneuropathy. PLAN: The patient remains moderately short of breath this morning. He is in no acute distress. He does appear awake and alert, but does not follow commands. He remains extremely weak, with flaccid extremities. I did discuss the case with the night nurse at length. The night nurse confirmed the above. On physical exam, there is no significant bronchospasm noted. In addition, there is no significant alveolar-arterial gradient. I will continue with the current nebulizer treatments and aspiration precautions for now. I did discuss the case with the respiratory therapist earlier this morning. We will monitor the patient's capnography via nasal cannula. Inputs by Infectious Disease, Cardiology, and Hematology are also noted. We are awaiting additional suggestions/input from Neurology. Pulmonary status of the patient has improved significantly - compared to the initial presentation. The last chest x-ray done yesterday - revealed almost complete resolution of the pulmonary infiltrates. In addition, there is no significant bronchospasm. There is no significant alveolar-arterial gradient. However, the overall status/prognosis for this patient remains very, very guarded. I will discuss the above with the entire ICU team in the next few moments. I will discuss the above with the attending physician later this morning. Balta Burr MD MTD[facility]лия
[2018-07-21] MEDS: Dexamethasone 40 MG in Sodium Chloride 0.9% 50 ML IV SCH (10:30)
[2018-07-21] MEDS: ELTROMBOPAG OLAMINE 75 MG PO SCH (10:30)
[2018-07-21 11:42] LABS: CK MB% 2.3 % (2.5-3.0); CK-MB 7.4 ng/mL (0.0-3.6)
--- NOTE | 2018-07-21 12:46 | CP.PCM.PN ---
Subjective - Date & Time of Evaluation Date of Evaluation: 07/21/18 Time of Evaluation: 10:50 - Subjective Subjective: Continues to have extremity weakness, has tachypnea at rest, still with low grade fevers overnight. Objective - Vital Signs/Intake and Output Vital Signs (last 24 hours): Temp Pulse Resp BP Pulse Ox 100.6 F H 83 36 H 122/61 94 L 07/20/18 15:00 07/20/18 15:00 07/20/18 15:00 07/20/18 15:00 07/20/18 15:00 Intake and Output: 07/20/18 07/20/18 06:59 18:59 Intake Total 480 15 Output Total 900 Balance -420 15 - Medications Medications: Current Medications Acetaminophen (Tylenol 650mg/20.3ml Solution Ud) 650 mg PO Q6H PRN PRN Reason: Fever 101F Last Admin: 07/20/18 13:20 Dose: 650 mg Albuterol/Ipratropium (Duoneb 3 Mg/0.5 Mg (3 Ml) Ud) 3 ml IH [id number] [facility] Last Admin: 07/20/18 13:08 Dose: 3 ml Albuterol/Ipratropium (Duoneb 3 Mg/0.5 Mg (3 Ml) Ud) 3 ml IH Q2H PRN PRN Reason: Shortness of Breath Last Admin: 07/11/18 23:55 Dose: 3 ml Digoxin (Lanoxin) 0.125 mg IVP 1400 [facility] Last Admin: 07/20/18 13:21 Dose: 0.125 mg Diltiazem HCl (Cardizem) 60 mg PO TID [facility] Last Admin: 07/20/18 13:31 Dose: 60 mg Sodium Chloride (Sodium Chloride 0.45%) 1,000 mls @ 100 mls/hr IV .Q10H [facility] Last Admin: 07/20/18 12:15 Dose: 100 mls/hr Insulin Human Regular 100 (units/ Sodium Chloride) 100 mls @ 0 mls/hr IV .Q0M PRN; Protocol PRN Reason: TITRATE PER MD ORDER Last Titration: 07/20/18 16:00 Dose: 2 ml/hr, 2 mls/hr Dexamethasone 40 mg/ Sodium (Chloride) 60 mls @ 120 mls/hr IV DAILY [facility] Last Admin: 07/20/18 12:52 Dose: 120 mls/hr Insulin Detemir (Levemir) 30 unit SC HS [facility] Last Admin: 07/19/18 21:47 Dose: 30 units Insulin Human Regular (Humulin R Med) 0 units SC [facility]; Protocol Last Admin: 07/20/18 12:00 Dose: 8 units Non-Formulary Medication (Eltrombopag Olamine [Promacta]) 75 mg PO DAILY [facility] Pantoprazole Sodium (Protonix Inj) 40 mg IVP DAILY [facility] Last Admin: 07/20/18 09:06 Dose: 40 mg Vitamin A (Vitamin A&D) 1 applic TP Q8 PRN PRN Reason: Dry mouth - Labs Labs: 07/20/18 05:40 07/20/18 05:40 PT 12.5 SECONDS (9.4-12.5) 07/19/18 05:00 INR 1.09 07/19/18 05:00 APTT 18.7 Seconds (25.1-36.5) L 07/06/18 11:54 - Constitutional Appears: Chronically Ill, Other (with weakness) - Head Exam Head Exam: NORMAL INSPECTION - Neck Exam Neck Exam: absent: Meningismus - Respiratory Exam Respiratory Exam: Decreased Breath Sounds - Cardiovascular Exam Cardiovascular Exam: +S1, +S2 - GI/Abdominal Exam GI & Abdominal Exam: Soft. absent: Tenderness Assessment and Plan - Assessment and Plan (Free Text) Plan: Assessment increasing leukocytosis etiology not clear, no evidence of bacterial sepsis currently thrombocytopenia probably ITP flaccid weakness of extremities consider critical illness polyneuropathy and myopathy S/P Severe sepsis with hypoxic respiratory failure and S/P ventilator-dependent respiratory failure and acute on chronic renal failure as well as thr ombocytopenia due to severe right sided community-acquired pneumonia S/P viral infection with Influenza A in this patient with CVA significant and active smoking history COPD HTN DM peripheral vascular disease history of right elbow septic arthritis history of right upper extremity cellulitis Plan cultures have been negative, PCT is low CXR done yesterday does not show new infiltrates continue to monitor off antibiotics since he is at risk for nosocomial infections discussed with Dr. Burr - probable has critically ill- related myopathy and neuropathy - may discuss with Neurology to see if patient may benefit from IVIG again (already received it for the thrombocytopenia)
[2018-07-21] MEDS: Digoxin 500 mcg/2ml (0.5 mg/2ml) Inj IVP SCH (14:09)
[2018-07-21 18:08] LABS: CALCIUM 8.7 mg/dL (8.4-10.5)
--- NOTE | 2018-07-21 18:09 | PN ---
DATE: 07/21/2018 CARDIOLOGY FOLLOWUP SUBJECTIVE: The patient remains weak and lethargic. PHYSICAL EXAMINATION: VITAL SIGNS: Blood pressure is 127/63, heart rates in the 80s. NECK: Negative JVD. LUNGS: Decreased breath sounds. HEART: Reveal S1, S2. EXTREMITIES: Without edema. LABORATORY DATA: Hemoglobin is 9.9, platelet count is 28,000. Chemistries, BUN and creatinine is 114 and 2. Sugar is 140. IMPRESSION: 1. Status post respiratory failure. 2. Bilateral pneumonia. 3. End-stage renal disease. 4. Severe thrombocytopenia. 5. Lethargy. 6. Metabolic abnormalities. Given these findings, the patient's thrombocytopenia remains an issue. His non-STEMI will be continued, will be treated medically. Benjamin Saxena MD
--- NOTE | 2018-07-21 21:46 | PN ---
DATE: 07/21/2018 SUBJECTIVE: The patient is currently seen in ICU bed 5. He is unresponsive to verbal stimuli. He remains off the ventilator. He is receiving large amounts of free fluid for treatment of his hypernatremia. He is not having any diarrhea. He is making excellent amount of urine. His BUN today is 114 with a creatinine of 2. His dialysis catheter was removed. The patient has been accepted into an LTAC, but we are trying to metabolically normalize his labs prior to possible transfer. The patient remains off Dobutrex. MEDICATIONS: Medication list reviewed. The patient is on p.o. Cardizem, dexamethasone, DuoNeb, Promacta, insulin, Lanoxin, Levemir, Pepcid, half-normal saline 100 mL an hour, Tylenol p.r.n. and vitamin A ointment. OBJECTIVE: INTAKE AND OUTPUT: Intake is 3479, output is 2300. VITAL SIGNS: Blood pressure 130/55, temperature 100.2, pulse is 84 with a respiratory rate of 30. HEENT: Eyes are closed. Dobhoff tube in place. NECK: Supple. No neck vein distention. CHEST: Clear to auscultation and percussion with scattered rhonchi. No rales or wheezing. CARDIOVASCULAR: Irregular S1, S2 with MR/TR/PI. No S3, no S4, no rub. ABDOMEN: Soft. Bowel sounds normal. No rebound, guarding or masses. EXTREMITIES: No dependent edema of his lower extremity. Legs are mildly elevated. No cyanosis or clubbing. He does have stasis dermatitis changes. LABORATORY DATA AND IMAGING STUDIES: Chest x-ray done today shows no acute pulmonary disease. He does have a nasogastric tube in his stomach. Labs: CBC, white blood cell count 16.9, hemoglobin 9.9, stable. Platelet count is 28,000. Blood gas from yesterday, pH 7.32, pO2 of 74 with a pCO2 of 41. Chemistries today showed a sodium of 160 up from 157 day before. Potassium level was 5.6. Chloride 133 with a CO2 of 24, BUN 114, slightly high, creatinine stable at 2. Glucose is 140. Calcium level 9.2, phosphorus elevated at 5.7. Mild elevation of his liver enzymes with significantly improved. Albumin level is 3.1. Urine showed 1 to 3 red blood cells, 0 to 2 white blood cells. Microbiology, blood cultures done on 07/19/2018 showed no growth. ASSESSMENT: 1. Acute renal failure in the setting of acute tubular necrosis in the setting of pneumonia with influenza. Workup for vasculitis was negative. Anti-GBM titers were negative. The patient received acute dialysis and is currently off dialysis. Dialysis catheter was removed. His creatinine remained stable at 2, perhaps slight elevation of his BUN is secondary to steroid use. 2. Hypernatremia with hyperkalemia. The patient's calculated fluid deficit is slightly above 7 liters. He is receiving 2.4 liters of free water down the feeding tube. At this rate, assuming he has no hypotonic fluid losses, it would likely take approximately 72 hours to correct the volume deficit. For his hyperkalemia, he did receive one dose of Kayexalate. There are no plans for any further dialysis. 3. Sepsis with community-acquired pneumonia and influenza. The patient has completed a course of antibacterial therapy and antiviral therapy. He continues to have intermittent fever spikes. 4. History of severe cardiomyopathy with ejection fraction of 14%. This is in the setting of subendocardial wall myocardial infarction. The patient is currently off inotropic agents. He is in atrial fibrillation, being treated with oral Cardizem. The patient remains rate controlled. The patient is also receiving digoxin. He is currently not receiving any beta-seble therapy. He is off any anticoagulation. 5. Status post acute respiratory failure. The patient has been extubated and appears to be stable. Yesterday's blood gas is acceptable. 6. History of severe thrombocytopenia, this in the setting of idiopathic thrombocytopenic purpura. The patient is being followed by Hematology/Oncology. He is status post immunoglobulin. He is currently on Promacta. 7. History of [id number] diabetes mellitus. The patient is currently on insulin. His glucose levels were exceedingly high and he had been on an insulin drip. Glucose levels appear to be better today. Glucose levels are hovering anywhere from 170 to 211. 8. History of elevated liver enzymes. Liver enzymes are essentially back to normal. 9. History of chronic obstructive pulmonary disease, currently stable. 10. History of hypertension. Blood pressure is in the low normal range. The patient does remain on medications that will lower blood pressure which are primarily being used for treatment of his atrial fibrillation, that is, he is on diltiazem. 11. Altered mental status. The patient is felt to have diffuse neuropathy. He is being followed by Neurology. PLAN: 1. Discussed with ICU staff. We will attempt to replace his 7-liter fluid deficit over 48 to 72 hours. It is difficult to give him D5W as this has made his sugar control difficult. As long as he is tolerating fluid intake with water via his Dobhoff tube that will be the preferred route. 2. Continue to monitor sugars. The patient is currently off insulin drip. 3. Continue Cardizem for rate control of his atrial fibrillation. 4. Agree with one dose of Kayexalate for his hyperkalemia. The patient is not acidotic. His hyperkalemia should resolve. 5. Presently, the patient is receiving Glucerna. Perhaps, at some point in time, we could switch the patient over to Nepro. 6. Try and stabilize his electrolytes prior to potential transfer to an LTAC. 7. The patient's situation remains severely critical. We will continue to monitor the patient closely along with you. 8. Greater than 35 minutes spent in the care of this patient. Margarito Mcnamara MD
[2018-07-22] MEDS: Albuterol-Ipratrop 3 mg / 0.5 (3 ml) UD IH SCH ×4 (03:27→21:11)
[2018-07-22] MEDS: Insulin Detemir 100 units/ml Vial (Levemir) SC SCH (06:56)
[2018-07-22 07:09] LABS: ARTERIAL BLOOD GAS HCO3 20.6 mmol/L (21-28); ARTERIAL BLOOD GAS PCO2 62 mm/Hg (35-45); ARTERIAL BLOOD GAS PH 7.13 (7.35-7.45); ARTERIAL BLOOD GAS TCO2 22.5 mmol.L (22-28)
[2018-07-22 07:18] LABS: GRAN # 19.33 (1.4-6.5); GRAN % 92.8 % (50.0-68.0); HEMOGLOBIN 8.5 g/dL (14.0-18.0); LYMPH # 1.2 (1.2-3.4); LYMPH % 5.9 % (22.0-35.0); MEAN CELL VOLUME 93.3 fl (80.0-105.0); MEAN CORPUSCULAR HEMOGLOBIN 25.9 pg (25.0-35.0); MEAN CORPUSCULAR HGB CONC 27.8 g/dl (31.0-37.0); MONO # 0.3 (0.1-0.6); MONO % 1.3 % (1.0-6.0); RBC 3.28 10^6/uL (3.5-6.1); RED CELL DISTRIBUTION WIDTH 17.4 % (11.5-14.5); WHITE BLOOD COUNT 20.8 10^3/uL (4.5-11.0)
[2018-07-22] MEDS ORDERED: Propofol 10 mg/ml Inj (20 ML) ONE (07:18)
[2018-07-22] MEDS ORDERED: Etomidate 20 mg/10ml Inj IV ONE (07:27)
[2018-07-22 07:28] LABS: PLATELET COUNT 25 10^3/uL (120.0-450.0)
--- NOTE | 2018-07-22 07:57 | CP.CCUPN ---
<Dannie Yeh - Last Filed: 07/22/18 10:57> CCU Subjective - Physician Review Subjective (Free Text): Dannie Yeh PGY1 Critical Care Progress Note CC: SOB Patient seen and examined at bedside. No acute events overnight. Intubated after ABG today shows elevated pCO2 and unable to protect airway. Patient's family notified of intubation and possible need for future tracheostomy. Pending discharge to LTAC once medically clear. Will restart insulin drip due to uncontrolled sugars. CCU Objective - Vital Signs / Intake & Output Vital Signs (Last 4 hours): Vital Signs Temp Pulse Resp BP Pulse Ox 07/22/18 07:54 24 98 07/22/18 06:45 125/57 L 07/22/18 06:44 100.0 F H 87 92 L 07/22/18 06:30 132/63 07/22/18 06:29 100.2 F H 86 92 L 07/22/18 06:15 135/62 07/22/18 06:14 100.2 F H 87 86 L 07/22/18 06:11 129/64 07/22/18 06:10 89 90 L 07/22/18 06:08 87 07/22/18 06:07 86 07/22/18 06:06 82 137 H 07/22/18 06:00 100.2 F H 92 H 115/52 L 78 L 07/22/18 05:45 100.2 F H 85 32 H 118/55 L 91 L 07/22/18 05:30 117/51 L 07/22/18 05:29 100.2 F H 87 93 L 07/22/18 05:15 122/56 L 07/22/18 05:14 100.2 F H 86 93 L 07/22/18 05:00 119/54 L 07/22/18 04:59 100.2 F H 85 93 L 07/22/18 04:45 100.2 F H 88 119/57 L 07/22/18 04:44 100.2 F H 89 93 L 07/22/18 04:30 122/53 L 07/22/18 04:29 100.2 F H 84 92 L 07/22/18 04:15 127/57 L 07/22/18 04:14 100.2 F H 84 93 L 07/22/18 04:00 123/55 L 07/22/18 03:59 100.2 F H 84 93 L Intake and Output (Last 8hrs): Intake & Output 07/21/18 07/22/18 07/22/18 22:59 06:59 14:59 Intake Total 0 0 Output Total 900 900 Balance 1190 1180 Intake: IV 1210 1200 Right Forearm 10 Right Hand 1200 1200 Tube Feeding 480 480 Other 400 400 Output: Urine 900 900 Urethral (Oliveros) 900 900 Emesis 0 0 Other: # Bowel Movements 0 0 - Physical Exam Physical Exam Limitations: Positive for: Other (lethargic) Head: Positive for: Atraumatic, Normocephalic Pupils: Positive for: PERRL Extroacular Muscles: Negative for: EOMI (unable to be assessed) Conjunctiva: Positive for: Normal Mouth: Positive for: Dry, Drooling Pharnyx: Positive for: Other (intubated ) Respiratory/Chest: Positive for: Clear to Auscultation, Decreased Breath Sounds. Negative for: Respiratory Distress, Wheezes, Tachypneic Cardiovascular: Positive for: Normal S1, S2. Negative for: Murmurs Abdomen: Negative for: Tenderness, Peritoneal Signs, Guarding Back: Positive for: Normal Inspection Upper Extremity: Positive for: Normal Inspection, Other (flaccid). Negative for: Cyanosis, Edema Lower Extremity: Positive for: Edema (1+ pitting edema noted to right lower extremity; chronic diabetic ulcer noted to anterior anderson of left lower extremity ), Other (flaccid) Neurological: Negative for: GCS=15, CN II-XII Intact, Speech Normal Skin: Positive for: Warm, Dry, Normal Color, Other (Ecchymotic in R antecubital region, stable; ecchymoses at different levels of healing throughout extremities). Negative for: Rashes Psychiatric: Negative for: Oriented x 3, Normal Insight - Medications Active Medications: Active Medications Generic Name Dose Route Start Last Admin Trade Name Freq PRN Reason Stop Dose Admin Acetaminophen 650 mg 07/08/18 18:18 07/20/18 13:20 Tylenol 650mg/20.3ml Solution Ud PO 650 mg Q6H PRN Administration Fever 101F Albuterol/Ipratropium 3 ml 07/03/18 14:00 07/22/18 03:27 Duoneb 3 Mg/0.5 Mg (3 Ml) Ud IH 3 ml [id number] SEEMA Administration Albuterol/Ipratropium 3 ml 07/03/18 11:04 07/11/18 23:55 Duoneb 3 Mg/0.5 Mg (3 Ml) Ud IH 3 ml Q2H PRN Administration Shortness of Breath Digoxin 0.125 mg 07/13/18 14:00 07/21/18 14:09 Lanoxin IVP 0.125 mg 1400 SEEMA Administration Diltiazem HCl 60 mg 07/17/18 14:00 07/21/18 17:53 Cardizem PO 60 mg TID SEEMA Administration Famotidine 20 mg 07/22/18 10:00 Pepcid IVP DAILY SEEMA Sodium Chloride 1,000 mls @ 100 mls/hr 07/20/18 10:15 07/21/18 10:33 Sodium Chloride 0.45% IV 100 mls/hr .Q10H SEEMA Administration Dexamethasone 40 mg/ Sodium 60 mls @ 120 mls/hr 07/20/18 12:00 07/21/18 10:30 Chloride IV 120 mls/hr DAILY SEEMA Administration Insulin Detemir 30 unit 07/17/18 10:39 07/22/18 06:56 Levemir SC 30 units HS SEEMA Administration Insulin Human Regular 0 units 07/19/18 07:38 07/21/18 17:53 Humulin R Med SC 8 units ACHS SEEMA Administration Protocol Non-Formulary Medication 75 mg 07/21/18 16:34 Eltrombopag Olamine [Promacta] PO DAILY SEEMA Vitamin A 1 applic 07/13/18 16:53 Vitamin A&D TP Q8 PRN Dry mouth - Patient Studies Lab Studies: Microbiology Studies 07/19/18 18:00 Urine Culture - Final Urine Random No Growth (<1,000 CFU/ML) 07/19/18 10:30 Blood Culture - Preliminary Blood NO GROWTH AFTER 48 HOURS 07/19/18 10:55 Blood Culture - Preliminary Blood NO GROWTH AFTER 48 HOURS Lab Studies 07/22/18 07/22/18 07/21/18 Range/Units 07:00 06:47 21:29 WBC 20.8 H D (4.5-11.0) 10^3/uL RBC 3.28 L (3.5-6.1) 10^6/uL Hgb 8.5 L (14.0-18.0) g/dL Hct 30.6 L (42.0-52.0) % MCV 93.3 (80.0-105.0) fl MCH 25.9 (25.0-35.0) pg MCHC 27.8 L (31.0-37.0) g/dl RDW 17.4 H (11.5-14.5) % Plt Count 25 L* (120.0-450.0) 10^3/uL Manual Plt Count (120-450) K/mm3 Gran % 92.8 H (50.0-68.0) % Lymph % (Auto) 5.9 L (22.0-35.0) % Bladen % (Auto) 1.3 (1.0-6.0) % Eos % (Auto) 0.0 L (1.5-5.0) % Baso % (Auto) 0.0 (0.0-3.0) % Gran # 19.33 H (1.4-6.5) Lymph # (Auto) 1.2 (1.2-3.4) Bladen # (Auto) 0.3 (0.1-0.6) Eos # (Auto) 0.0 (0.0-0.7) Baso # (Auto) 0.00 (0.0-2.0) K/mm3 Neutrophils % (Manual) (50.0-70.0) % Lymphocytes % (Manual) (22.0-35.0) % Monocytes % (Manual) (1.0-6.0) % Poikilocytosis (manual Ovalocytes pCO2 62 H (35-45) mm/Hg pO2 75.0 L (80-100) mm/Hg HCO3 20.6 L (21-28) mmol/L ABG pH 7.13 L* (7.35-7.45) ABG Total CO2 22.5 (22-28) mmol.L ABG O2 Saturation 97.0 (95-98) % ABG Base Excess -9.3 L (-2.0-3.0) mmol/L ABG Potassium 6.1 H (3.6-5.2) mmol/L Glucose 452 H* D (75-110) mg/dl Lactate 1.1 (0.7-2.1) mmol/L FiO2 32.0 % Crit Value Called To Rachell Crit Value Called By Guillermo Blood Gas Notified Time 708 Sodium 156.0 H (132-148) mmol/L Potassium (3.6-5.0) mmol/L Chloride 127.0 H (98-107) mmol/L Carbon Dioxide (21-33) mmol/L Anion Gap (10-20) BUN (7-21) mg/dL Creatinine (0.8-1.5) mg/dl Est GFR ( Amer) Est GFR (Non-Af Amer) POC Glucose (mg/dL) 349 H (65-110) mg/dL Random Glucose (70-110) mg/dL Calcium (8.4-10.5) mg/dL Total Creatine Kinase (35-230) U/L CK-MB (CK-2) (0.0-3.6) ng/mL CK-MB (CK-2) % (2.5-3.0) % Arterial Blood Potassium 6.1 H (3.6-5.2) mmol/L 07/21/18 07/21/18 07/21/18 Range/Units 17:24 16:53 13:24 WBC (4.5-11.0) 10^3/uL RBC (3.5-6.1) 10^6/uL Hgb (14.0-18.0) g/dL Hct (42.0-52.0) % MCV (80.0-105.0) fl MCH (25.0-35.0) pg MCHC (31.0-37.0) g/dl RDW (11.5-14.5) % Plt Count (120.0-450.0) 10^3/uL Manual Plt Count (120-450) K/mm3 Gran % (50.0-68.0) % Lymph % (Auto) (22.0-35.0) % Bladen % (Auto) (1.0-6.0) % Eos % (Auto) (1.5-5.0) % Baso % (Auto) (0.0-3.0) % Gran # (1.4-6.5) Lymph # (Auto) (1.2-3.4) Bladen # (Auto) (0.1-0.6) Eos # (Auto) (0.0-0.7) Baso # (Auto) (0.0-2.0) K/mm3 Neutrophils % (Manual) (50.0-70.0) % Lymphocytes % (Manual) (22.0-35.0) % Monocytes % (Manual) (1.0-6.0) % Poikilocytosis (manual Ovalocytes pCO2 (35-45) mm/Hg pO2 (80-100) mm/Hg HCO3 (21-28) mmol/L ABG pH (7.35-7.45) ABG Total CO2 (22-28) mmol.L ABG O2 Saturation (95-98) % ABG Base Excess (-2.0-3.0) mmol/L ABG Potassium (3.6-5.2) mmol/L Glucose (75-110) mg/dl Lactate (0.7-2.1) mmol/L FiO2 % Crit Value Called To Crit Value Called By Blood Gas Notified Time Sodium 158 H* (132-148) mmol/L Potassium 5.5 H (3.6-5.0) mmol/L Chloride 131 H (98-107) mmol/L Carbon Dioxide 22 (21-33) mmol/L Anion Gap 9 L (10-20) BUN 115 H (7-21) mg/dL Creatinine 2.3 H (0.8-1.5) mg/dl Est GFR ( Amer) 35 Est GFR (Non-Af Amer) 29 POC Glucose (mg/dL) 358 H 211 H (65-110) mg/dL Random Glucose 313 H* D (70-110) mg/dL Calcium 8.7 (8.4-10.5) mg/dL Total Creatine Kinase (35-230) U/L CK-MB (CK-2) (0.0-3.6) ng/mL CK-MB (CK-2) % (2.5-3.0) % Arterial Blood Potassium (3.6-5.2) mmol/L 07/21/18 07/21/18 07/21/18 Range/Units 11:32 10:41 10:25 WBC (4.5-11.0) 10^3/uL RBC (3.5-6.1) 10^6/uL Hgb (14.0-18.0) g/dL Hct (42.0-52.0) % MCV (80.0-105.0) fl MCH (25.0-35.0) pg MCHC (31.0-37.0) g/dl RDW (11.5-14.5) % Plt Count (120.0-450.0) 10^3/uL Manual Plt Count (120-450) K/mm3 Gran % (50.0-68.0) % Lymph % (Auto) (22.0-35.0) % Bladen % (Auto) (1.0-6.0) % Eos % (Auto) (1.5-5.0) % Baso % (Auto) (0.0-3.0) % Gran # (1.4-6.5) Lymph # (Auto) (1.2-3.4) Bladen # (Auto) (0.1-0.6) Eos # (Auto) (0.0-0.7) Baso # (Auto) (0.0-2.0) K/mm3 Neutrophils % (Manual) (50.0-70.0) % Lymphocytes % (Manual) (22.0-35.0) % Monocytes % (Manual) (1.0-6.0) % Poikilocytosis (manual Ovalocytes pCO2 (35-45) mm/Hg pO2 (80-100) mm/Hg HCO3 (21-28) mmol/L ABG pH (7.35-7.45) ABG Total CO2 (22-28) mmol.L ABG O2 Saturation (95-98) % ABG Base Excess (-2.0-3.0) mmol/L ABG Potassium (3.6-5.2) mmol/L Glucose (75-110) mg/dl Lactate (0.7-2.1) mmol/L FiO2 % Crit Value Called To Crit Value Called By Blood Gas Notified Time Sodium (132-148) mmol/L Potassium (3.6-5.0) mmol/L Chloride (98-107) mmol/L Carbon Dioxide (21-33) mmol/L Anion Gap (10-20) BUN (7-21) mg/dL Creatinine (0.8-1.5) mg/dl Est GFR ( Amer) Est GFR (Non-Af Amer) POC Glucose (mg/dL) 206 H 190 H (65-110) mg/dL Random Glucose (70-110) mg/dL Calcium (8.4-10.5) mg/dL Total Creatine Kinase 320 H (35-230) U/L CK-MB (CK-2) 7.4 H (0.0-3.6) ng/mL CK-MB (CK-2) % 2.3 L (2.5-3.0) % Arterial Blood Potassium (3.6-5.2) mmol/L 07/21/18 07/21/18 07/21/18 Range/Units 09:08 08:00 07:34 WBC (4.5-11.0) 10^3/uL RBC (3.5-6.1) 10^6/uL Hgb (14.0-18.0) g/dL Hct (42.0-52.0) % MCV (80.0-105.0) fl MCH (25.0-35.0) pg MCHC (31.0-37.0) g/dl RDW (11.5-14.5) % Plt Count (120.0-450.0) 10^3/uL Manual Plt Count 28 L* (120-450) K/mm3 Gran % (50.0-68.0) % Lymph % (Auto) (22.0-35.0) % Bladen % (Auto) (1.0-6.0) % Eos % (Auto) (1.5-5.0) % Baso % (Auto) (0.0-3.0) % Gran # (1.4-6.5) Lymph # (Auto) (1.2-3.4) Bladen # (Auto) (0.1-0.6) Eos # (Auto) (0.0-0.7) Baso # (Auto) (0.0-2.0) K/mm3 Neutrophils % (Manual) (50.0-70.0) % Lymphocytes % (Manual) (22.0-35.0) % Monocytes % (Manual) (1.0-6.0) % Poikilocytosis (manual Ovalocytes pCO2 (35-45) mm/Hg pO2 (80-100) mm/Hg HCO3 (21-28) mmol/L ABG pH (7.35-7.45) ABG Total CO2 (22-28) mmol.L ABG O2 Saturation (95-98) % ABG Base Excess (-2.0-3.0) mmol/L ABG Potassium (3.6-5.2) mmol/L Glucose (75-110) mg/dl Lactate (0.7-2.1) mmol/L FiO2 % Crit Value Called To Crit Value Called By Blood Gas Notified Time Sodium (132-148) mmol/L Potassium (3.6-5.0) mmol/L Chloride (98-107) mmol/L Carbon Dioxide (21-33) mmol/L Anion Gap (10-20) BUN (7-21) mg/dL Creatinine (0.8-1.5) mg/dl Est GFR ( Amer) Est GFR (Non-Af Amer) POC Glucose (mg/dL) 170 H 142 H (65-110) mg/dL Random Glucose (70-110) mg/dL Calcium (8.4-10.5) mg/dL Total Creatine Kinase (35-230) U/L CK-MB (CK-2) (0.0-3.6) ng/mL CK-MB (CK-2) % (2.5-3.0) % Arterial Blood Potassium (3.6-5.2) mmol/L 07/21/18 07/21/18 07/21/18 Range/Units 06:20 06:05 05:17 WBC (4.5-11.0) 10^3/uL RBC (3.5-6.1) 10^6/uL Hgb (14.0-18.0) g/dL Hct (42.0-52.0) % MCV (80.0-105.0) fl MCH (25.0-35.0) pg MCHC (31.0-37.0) g/dl RDW (11.5-14.5) % Plt Count (120.0-450.0) 10^3/uL Manual Plt Count (120-450) K/mm3 Gran % (50.0-68.0) % Lymph % (Auto) (22.0-35.0) % Bladen % (Auto) (1.0-6.0) % Eos % (Auto) (1.5-5.0) % Baso % (Auto) (0.0-3.0) % Gran # (1.4-6.5) Lymph # (Auto) (1.2-3.4) Bladen # (Auto) (0.1-0.6) Eos # (Auto) (0.0-0.7) Baso # (Auto) (0.0-2.0) K/mm3 Neutrophils % (Manual) 96 H (50.0-70.0) % Lymphocytes % (Manual) 2 L (22.0-35.0) % Monocytes % (Manual) 2 (1.0-6.0) % Poikilocytosis (manual Slight Ovalocytes Slight pCO2 (35-45) mm/Hg pO2 (80-100) mm/Hg HCO3 (21-28) mmol/L ABG pH (7.35-7.45) ABG Total CO2 (22-28) mmol.L ABG O2 Saturation (95-98) % ABG Base Excess (-2.0-3.0) mmol/L ABG Potassium (3.6-5.2) mmol/L Glucose (75-110) mg/dl Lactate (0.7-2.1) mmol/L FiO2 % Crit Value Called To Crit Value Called By Blood Gas Notified Time Sodium (132-148) mmol/L Potassium (3.6-5.0) mmol/L Chloride (98-107) mmol/L Carbon Dioxide (21-33) mmol/L Anion Gap (10-20) BUN (7-21) mg/dL Creatinine (0.8-1.5) mg/dl Est GFR ( Amer) Est GFR (Non-Af Amer) POC Glucose (mg/dL) 129 H 153 H (65-110) mg/dL Random Glucose (70-110) mg/dL Calcium (8.4-10.5) mg/dL Total Creatine Kinase (35-230) U/L CK-MB (CK-2) (0.0-3.6) ng/mL CK-MB (CK-2) % (2.5-3.0) % Arterial Blood Potassium (3.6-5.2) mmol/L 07/21/18 Range/Units 04:02 WBC (4.5-11.0) 10^3/uL RBC (3.5-6.1) 10^6/uL Hgb (14.0-18.0) g/dL Hct (42.0-52.0) % MCV (80.0-105.0) fl MCH (25.0-35.0) pg MCHC (31.0-37.0) g/dl RDW (11.5-14.5) % Plt Count (120.0-450.0) 10^3/uL Manual Plt Count (120-450) K/mm3 Gran % (50.0-68.0) % Lymph % (Auto) (22.0-35.0) % Bladen % (Auto) (1.0-6.0) % Eos % (Auto) (1.5-5.0) % Baso % (Auto) (0.0-3.0) % Gran # (1.4-6.5) Lymph # (Auto) (1.2-3.4) Bladen # (Auto) (0.1-0.6) Eos # (Auto) (0.0-0.7) Baso # (Auto) (0.0-2.0) K/mm3 Neutrophils % (Manual) (50.0-70.0) % Lymphocytes % (Manual) (22.0-35.0) % Monocytes % (Manual) (1.0-6.0) % Poikilocytosis (manual Ovalocytes pCO2 (35-45) mm/Hg pO2 (80-100) mm/Hg HCO3 (21-28) mmol/L ABG pH (7.35-7.45) ABG Total CO2 (22-28) mmol.L ABG O2 Saturation (95-98) % ABG Base Excess (-2.0-3.0) mmol/L ABG Potassium (3.6-5.2) mmol/L Glucose (75-110) mg/dl Lactate (0.7-2.1) mmol/L FiO2 % Crit Value Called To Crit Value Called By Blood Gas Notified Time Sodium (132-148) mmol/L Potassium (3.6-5.0) mmol/L Chloride (98-107) mmol/L Carbon Dioxide (21-33) mmol/L Anion Gap (10-20) BUN (7-21) mg/dL Creatinine (0.8-1.5) mg/dl Est GFR ( Amer) Est GFR (Non-Af Amer) POC Glucose (mg/dL) 137 H (65-110) mg/dL Random Glucose (70-110) mg/dL Calcium (8.4-10.5) mg/dL Total Creatine Kinase (35-230) U/L CK-MB (CK-2) (0.0-3.6) ng/mL CK-MB (CK-2) % (2.5-3.0) % Arterial Blood Potassium (3.6-5.2) mmol/L Laboratory Results - last 24 hr 07/21/18 07/21/18 07/21/18 04:02 05:17 06:05 WBC RBC Hgb Hct MCV MCH MCHC RDW Plt Count Manual Plt Count Gran % Lymph % (Auto) Bladen % (Auto) Eos % (Auto) Baso % (Auto) Gran # Lymph # (Auto) Bladen # (Auto) Eos # (Auto) Baso # (Auto) Neutrophils % (Manual) Lymphocytes % (Manual) Monocytes % (Manual) Poikilocytosis (manual Ovalocytes pCO2 pO2 HCO3 ABG pH ABG Total CO2 ABG O2 Saturation ABG Base Excess ABG Potassium Glucose Lactate FiO2 Crit Value Called To Crit Value Called By Blood Gas Notified Time Sodium Potassium Chloride Carbon Dioxide Anion Gap BUN Creatinine Est GFR ( Amer) Est GFR (Non-Af Amer) POC Glucose (mg/dL) 137 H 153 H 129 H Random Glucose Calcium Total Creatine Kinase CK-MB (CK-2) CK-MB (CK-2) % Arterial Blood Potassium 07/21/18 07/21/18 07/21/18 06:20 07:34 08:00 WBC RBC Hgb Hct MCV MCH MCHC RDW Plt Count Manual Plt Count 28 L* Gran % Lymph % (Auto) Bladen % (Auto) Eos % (Auto) Baso % (Auto) Gran # Lymph # (Auto) Bladen # (Auto) Eos # (Auto) Baso # (Auto) Neutrophils % (Manual) 96 H Lymphocytes % (Manual) 2 L Monocytes % (Manual) 2 Poikilocytosis (manual Slight Ovalocytes Slight pCO2 pO2 HCO3 ABG pH ABG Total CO2 ABG O2 Saturation ABG Base Excess ABG Potassium Glucose Lactate FiO2 Crit Value Called To Crit Value Called By Blood Gas Notified Time Sodium Potassium Chloride Carbon Dioxide Anion Gap BUN Creatinine Est GFR ( Amer) Est GFR (Non-Af Amer) POC Glucose (mg/dL) 142 H Random Glucose Calcium Total Creatine Kinase CK-MB (CK-2) CK-MB (CK-2) % Arterial Blood Potassium 07/21/18 07/21/18 07/21/18 09:08 10:25 10:41 WBC RBC Hgb Hct MCV MCH MCHC RDW Plt Count Manual Plt Count Gran % Lymph % (Auto) Bladen % (Auto) Eos % (Auto) Baso % (Auto) Gran # Lymph # (Auto) Bladen # (Auto) Eos # (Auto) Baso # (Auto) Neutrophils % (Manual) Lymphocytes % (Manual) Monocytes % (Manual) Poikilocytosis (manual Ovalocytes pCO2 pO2 HCO3 ABG pH ABG Total CO2 ABG O2 Saturation ABG Base Excess ABG Potassium Glucose Lactate FiO2 Crit Value Called To Crit Value Called By Blood Gas Notified Time Sodium Potassium Chloride Carbon Dioxide Anion Gap BUN Creatinine Est GFR ( Amer) Est GFR (Non-Af Amer) POC Glucose (mg/dL) 170 H 190 H Random Glucose Calcium Total Creatine Kinase 320 H CK-MB (CK-2) 7.4 H CK-MB (CK-2) % 2.3 L Arterial Blood Potassium 07/21/18 07/21/18 07/21/18 11:32 13:24 16:53 WBC RBC Hgb Hct MCV MCH MCHC RDW Plt Count Manual Plt Count Gran % Lymph % (Auto) Bladen % (Auto) Eos % (Auto) Baso % (Auto) Gran # Lymph # (Auto) Bladen # (Auto) Eos # (Auto) Baso # (Auto) Neutrophils % (Manual) Lymphocytes % (Manual) Monocytes % (Manual) Poikilocytosis (manual Ovalocytes pCO2 pO2 HCO3 ABG pH ABG Total CO2 ABG O2 Saturation ABG Base Excess ABG Potassium Glucose Lactate FiO2 Crit Value Called To Crit Value Called By Blood Gas Notified Time Sodium Potassium Chloride Carbon Dioxide Anion Gap BUN Creatinine Est GFR ( Amer) Est GFR (Non-Af Amer) POC Glucose (mg/dL) 206 H 211 H 358 H Random Glucose Calcium Total Creatine Kinase CK-MB (CK-2) CK-MB (CK-2) % Arterial Blood Potassium 07/21/18 07/21/18 07/22/18 17:24 21:29 06:47 WBC RBC Hgb Hct MCV MCH MCHC RDW Plt Count Manual Plt Count Gran % Lymph % (Auto) Bladen % (Auto) Eos % (Auto) Baso % (Auto) Gran # Lymph # (Auto) Bladen # (Auto) Eos # (Auto) Baso # (Auto) Neutrophils % (Manual) Lymphocytes % (Manual) Monocytes % (Manual) Poikilocytosis (manual Ovalocytes pCO2 62 H pO2 75.0 L HCO3 20.6 L ABG pH 7.13 L* ABG Total CO2 22.5 ABG O2 Saturation 97.0 ABG Base Excess -9.3 L ABG Potassium 6.1 H Glucose 452 H* D Lactate 1.1 FiO2 32.0 Crit Value Called To Rachell Crit Value Called By Guillermo Blood Gas Notified Time 708 Sodium 158 H* 156.0 H Potassium 5.5 H Chloride 131 H 127.0 H Carbon Dioxide 22 Anion Gap 9 L BUN 115 H Creatinine 2.3 H Est GFR ( Amer) 35 Est GFR (Non-Af Amer) 29 POC Glucose (mg/dL) 349 H Random Glucose 313 H* D Calcium 8.7 Total Creatine Kinase CK-MB (CK-2) CK-MB (CK-2) % Arterial Blood Potassium 6.1 H 07/22/18 07:00 WBC 20.8 H D RBC 3.28 L Hgb 8.5 L Hct 30.6 L MCV 93.3 MCH 25.9 MCHC 27.8 L RDW 17.4 H Plt Count 25 L* Manual Plt Count Gran % 92.8 H Lymph % (Auto) 5.9 L Bladen % (Auto) 1.3 Eos % (Auto) 0.0 L Baso % (Auto) 0.0 Gran # 19.33 H Lymph # (Auto) 1.2 Bladen # (Auto) 0.3 Eos # (Auto) 0.0 Baso # (Auto) 0.00 Neutrophils % (Manual) Lymphocytes % (Manual) Monocytes % (Manual) Poikilocytosis (manual Ovalocytes pCO2 pO2 HCO3 ABG pH ABG Total CO2 ABG O2 Saturation ABG Base Excess ABG Potassium Glucose Lactate FiO2 Crit Value Called To Crit Value Called By Blood Gas Notified Time Sodium Potassium Chloride Carbon Dioxide Anion Gap BUN Creatinine Est GFR ( Amer) Est GFR (Non-Af Amer) POC Glucose (mg/dL) Random Glucose Calcium Total Creatine Kinase CK-MB (CK-2) CK-MB (CK-2) % Arterial Blood Potassium Radiology Impressions: Radiology Impressions Chest X-Ray 07/21/18 08:35 IMPRESSION: No active pulmonary disease. Nasogastric tube terminates in the stomach. Fingerstick Blood Sugar Results: 358 Critical Care Progress Note - Nutrition Nutrition: Nutrition Category Date Time Status NPO Diet [DIET] Diets 07/06/18 Breakfast Ordered Assessment/Plan - Assessment and Plan (Free Text) Assessment: 62 y/o male with PMHx of COPD, active smoker 1pk per day, HTN, DM, PVD, presents with ER with 2 day history of fever, chills, associated with cough that is non- productive. Patient was initially started on heparin drip given elevated troponin, and markedly diminished EF. Hep drip currently held secondary to thrombocytopenia. Initially paralyzed on Nimbex after overbreathing ventilator. Extubated last week, ARDS resolved and s/p merrem and doxycycline antibiotic therapy for pneumonia. Awaiting family choice of LTAC facility once medically clear. 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 Harvinder Mcdaniels - Poor motor function likely from critical illness polyneuropathy - Results of EEG 07/10/18: moderate nonspecific diffuse disturbance of cortical activity, nonspecific diffuse fernandez matter dysfunction, no seizures, not in status epilepticus - 07/13/18 MRI brain without contrast negative for acute abnormalitie, 07/10/18 CT head without contrast negative Pulmology S/p intubation on 07/22/18 -unable to protect airway -ABG is improved post intubation with pH of 7.31 and pCO2 of 37. Sedated on propofol CAP and Flu A positive - completed tamiflu and merrem/doxycycline treatment - CXR shows intubated and OG tube in place - 07/17/18 CXR shows Vascular congestion with left lower lobe perihilar infiltrate - Duonebs seema q6 and PRN q2 - Urine Lg and Strep negative - Procal is 0.16 on 07/19 from 0.6 on 07/14 - ID eval: Dr. Fernandes, Pulm consulted - Dr. Burr Cardiology NSTEMI -07/03 Troponins elevated 0.48, 0.67, 0.67 - Cardiology consulted - Dr. Saxena. Cardiac cath on hold due to persistent thrombocytopenia. Hold Lasix per cardio. - Dig level 07/20 is 0.9 WNL - Hold IVF d/t poor EF, Hold Heparin drip HFrEF - BNP [id number] on 07/03 - 07/03/18 echo report shows EF 14.2%, mildly dilated LV, systolic function severely impaired, akinetic septum, TR and pulm HTN -continue digoxin 0.125mg IV, cardizem 60mg TID for afib Chronic Thrombocytopenia, ITP - Received previous transfusions as outpatient - PLT is 25 today - s/p 1 unit platelets on 07/20/18 - total 5 unit PLT transfused. IV gammaglobulin 5 day course completed on 07/11/18 - Will transfuse if <20 or actively bleeding per Hem recs - Will hold off on DVT chemoprophylaxis at this time, may resume if platelets >50 per heme/onc - Hem consult placed- Dr. Estevez - Negative IVONE and ANCA studies, ESR 45, HIT antibody negative Endo Uncontrolled DM - elevated glucose today, will restart insulin drip. Hold tube feedings for now - Hgb a1c 8.2, accuchecks ACHS - Diabetic education GI - OG tube in place, hold tube feedings for now due to uncontrolled sugars, electrolytes - swallow eval 07/17/18: Pt. poorly responsive, with hyper gag reflex. No response to oral stimulation or spoon/straw tip. - Shock liver resolved - Hep panel negative - 07/03/18 RUQ U/S shows hepatosplenomegaly - pepcid for PPX Nephro OG on HD - now off HD - Tolerated first HD on 07/07/18 - BUN/Cr uptrending to 143/2.7. Continue 1/2NS @ 11cc, 500cc q6 free water flushes - Strict Is and Os, oliveros in place - sodium is downtrending at 156, continue on 1/2 NS at 100cc - K of 6, kayexalate, calcium gluconate ant albuterol given. Started on insulin drip. Repeat BMP today afternoon - Nephro consult - recs appreciated - Continue water flushes per Nephro recs in light of low EF. - F/u nephro recs to consider repeating urine electrolytes ID - Tmax of 100.2 overnight, WBC uptrending today - s/p treatment of flu and pna with tamiflu and merrem/doxy - Ammonia level <9 - ID eval: Dr. Fernandes, monitor off antibiotic at this time - Repeat blood cx neg after 5 days, repeat UA negative, repeat sputum cx growing moderate amount of yeast. Dispo: Approved for LTAC, awaiting family choice of LTAC facility after medical clearance Patient seen and case discussed with attending, Dr. Sung. <Golden Sung - Last Filed: 07/22/18 12:55> CCU Objective - Vital Signs / Intake & Output Vital Signs (Last 4 hours): Vital Signs Temp Pulse BP Pulse Ox 07/22/18 12:30 92/46 L 07/22/18 12:29 99.5 F 74 97 07/22/18 12:15 102/60 07/22/18 12:14 99.5 F 75 98 07/22/18 12:00 109/58 L 07/22/18 11:59 99.5 F 75 99 07/22/18 11:45 99.5 F 79 110/60 98 07/22/18 11:30 92/48 L 07/22/18 11:29 99.5 F 74 97 07/22/18 11:15 99/47 L 07/22/18 11:14 99.5 F 74 99 07/22/18 11:00 104/54 L 07/22/18 10:59 99.5 F 75 98 07/22/18 10:45 96/50 L 07/22/18 10:44 99.7 F H 74 97 07/22/18 10:30 99.7 F H 75 103/56 L 98 07/22/18 10:15 88/50 L 07/22/18 10:14 99.7 F H 75 98 07/22/18 10:00 97/54 L 07/22/18 09:59 99.7 F H 76 99 07/22/18 09:50 99.7 F H 88 100/55 L 95 07/22/18 09:48 99.7 F H 77 88/49 L 98 07/22/18 09:45 91/45 L 07/22/18 09:44 99.7 F H 76 98 07/22/18 09:30 99.9 F H 86 116/58 L 99 07/22/18 09:15 113/60 07/22/18 09:14 99.7 F H 80 99 07/22/18 09:00 87 116/76 99 Intake and Output (Last 8hrs): Intake & Output 07/21/18 07/22/18 07/22/18 22:59 06:59 14:59 Intake Total 2090 2080 10 Output Total 900 900 Balance 1190 1180 10 Intake: IV 1210 1200 10 Right Forearm 10 Right Hand 1200 1200 Tube Feeding 480 480 Other 400 400 Output: Urine 900 900 Urethral (Oliveros) 900 900 Emesis 0 0 Other: # Bowel Movements 0 0 - Medications Active Medications: Active Medications Generic Name Dose Route Start Last Admin Trade Name Freq PRN Reason Stop Dose Admin Acetaminophen 650 mg 07/08/18 18:18 07/20/18 13:20 Tylenol 650mg/20.3ml Solution Ud PO 650 mg Q6H PRN Administration Fever 101F Albuterol/Ipratropium 3 ml 07/03/18 14:00 07/22/18 08:17 Duoneb 3 Mg/0.5 Mg (3 Ml) Ud IH 3 ml [id number] SEEMA Administration Albuterol/Ipratropium 3 ml 07/03/18 11:04 07/11/18 23:55 Duoneb 3 Mg/0.5 Mg (3 Ml) Ud IH 3 ml Q2H PRN Administration Shortness of Breath Digoxin 0.125 mg 07/13/18 14:00 07/21/18 14:09 Lanoxin IVP 0.125 mg 1400 SEEMA Administration Diltiazem HCl 60 mg 07/17/18 14:00 07/22/18 09:50 Cardizem PO Not Given TID SEEMA Famotidine 20 mg 07/22/18 10:00 07/22/18 09:52 Pepcid IVP 20 mg DAILY SEEMA Administration Sodium Chloride 1,000 mls @ 100 mls/hr 07/20/18 10:15 07/22/18 11:17 Sodium Chloride 0.45% IV 100 mls/hr .Q10H SEEMA Administration Dexamethasone 40 mg/ Sodium 60 mls @ 120 mls/hr 07/20/18 12:00 07/22/18 09:48 Chloride IV 120 mls/hr DAILY SEEMA Administration Propofol 1,000 mg in 100 mls @ 2.545 mls/hr 07/22/18 08:29 Diprivan IV .Q24H PRN TITRATE PER MD ORDER Protocol 5 MCG/KG/MIN Insulin Human Regular 100 100 mls @ 7 mls/hr 07/22/18 10:49 07/22/18 12:04 units/ Sodium Chloride IV 7 units/hr .[id number] PRN 7 mls/hr TITRATE PER MD ORDER Titration Protocol 7 UNITS/HR Insulin Detemir 30 unit 07/17/18 10:39 07/22/18 06:56 Levemir SC 30 units HS SEEMA Administration Non-Formulary Medication 75 mg 07/21/18 16:34 07/22/18 11:14 Eltrombopag Olamine [Promacta] PO 75 mg DAILY SEEMA Administration Vitamin A 1 applic 07/13/18 16:53 Vitamin A&D TP Q8 PRN Dry mouth - Patient Studies Lab Studies: Microbiology Studies 07/19/18 10:30 Blood Culture - Preliminary Blood NO GROWTH AFTER 3 DAYS 07/19/18 10:55 Blood Culture - Preliminary Blood NO GROWTH AFTER 3 DAYS 07/19/18 18:00 Urine Culture - Final Urine Random No Growth (<1,000 CFU/ML) Lab Studies 07/22/18 07/22/18 07/22/18 Range/Units 10:50 08:35 07:39 WBC (4.5-11.0) 10^3/uL RBC (3.5-6.1) 10^6/uL Hgb (14.0-18.0) g/dL Hct (42.0-52.0) % MCV (80.0-105.0) fl MCH (25.0-35.0) pg MCHC (31.0-37.0) g/dl RDW (11.5-14.5) % Plt Count (120.0-450.0) 10^3/uL Gran % (50.0-68.0) % Lymph % (Auto) (22.0-35.0) % Bladen % (Auto) (1.0-6.0) % Eos % (Auto) (1.5-5.0) % Baso % (Auto) (0.0-3.0) % Gran # (1.4-6.5) Lymph # (Auto) (1.2-3.4) Bladen # (Auto) (0.1-0.6) Eos # (Auto) (0.0-0.7) Baso # (Auto) (0.0-2.0) K/mm3 pCO2 37 (35-45) mm/Hg pO2 80.0 (80-100) mm/Hg HCO3 18.6 L (21-28) mmol/L ABG pH 7.31 L (7.35-7.45) ABG Total CO2 19.7 L (22-28) mmol.L ABG O2 Saturation 98.8 H (95-98) % ABG O2 Content 10.9 L (15-23) ML/dl ABG Base Excess -7.0 L (-2.0-3.0) mmol/L ABG Hemoglobin 8.1 L (11.7-17.4) g/dL ABG Carboxyhemoglobin 2.4 H (0.5-1.5) % POC ABG HHb (Measured) 1.2 (0-5) % ABG Methemoglobin 1.4 (0.0-3.0) % ABG O2 Capacity 11.0 L (16-24) mL/dl ABG Potassium (3.6-5.2) mmol/L Hgb O2 Saturation 94.9 L (95.0-98.0) % Glucose (75-110) mg/dl Lactate (0.7-2.1) mmol/L FiO2 40.0 % Crit Value Called To Crit Value Called By Blood Gas Notified Time Sodium (132-148) mmol/L Potassium (3.6-5.0) mmol/L Chloride (98-107) mmol/L Carbon Dioxide (21-33) mmol/L Anion Gap (10-20) BUN (7-21) mg/dL Creatinine (0.8-1.5) mg/dl Est GFR ( Amer) Est GFR (Non-Af Amer) POC Glucose (mg/dL) 412 H* 443 H* (65-110) mg/dL Random Glucose (70-110) mg/dL Calcium (8.4-10.5) mg/dL Phosphorus (2.5-4.5) mg/dL Magnesium (1.7-2.2) mg/dL Total Bilirubin (0.2-1.3) mg/dL AST (17-59) U/L ALT (7-56) U/L Alkaline Phosphatase (38-126) U/L Total Protein (5.8-8.3) g/dL Albumin (3.0-4.8) g/dL Globulin gm/dL Albumin/Globulin Ratio (1.1-1.8) Arterial Blood Potassium (3.6-5.2) mmol/L 07/22/18 07/22/18 07/22/18 Range/Units 07:00 07:00 06:47 WBC 20.8 H D (4.5-11.0) 10^3/uL RBC 3.28 L (3.5-6.1) 10^6/uL Hgb 8.5 L (14.0-18.0) g/dL Hct 30.6 L (42.0-52.0) % MCV 93.3 (80.0-105.0) fl MCH 25.9 (25.0-35.0) pg MCHC 27.8 L (31.0-37.0) g/dl RDW 17.4 H (11.5-14.5) % Plt Count 25 L* (120.0-450.0) 10^3/uL Gran % 92.8 H (50.0-68.0) % Lymph % (Auto) 5.9 L (22.0-35.0) % Bladen % (Auto) 1.3 (1.0-6.0) % Eos % (Auto) 0.0 L (1.5-5.0) % Baso % (Auto) 0.0 (0.0-3.0) % Gran # 19.33 H (1.4-6.5) Lymph # (Auto) 1.2 (1.2-3.4) Bladen # (Auto) 0.3 (0.1-0.6) Eos # (Auto) 0.0 (0.0-0.7) Baso # (Auto) 0.00 (0.0-2.0) K/mm3 pCO2 62 H (35-45) mm/Hg pO2 75.0 L (80-100) mm/Hg HCO3 20.6 L (21-28) mmol/L ABG pH 7.13 L* (7.35-7.45) ABG Total CO2 22.5 (22-28) mmol.L ABG O2 Saturation 97.0 (95-98) % ABG O2 Content (15-23) ML/dl ABG Base Excess -9.3 L (-2.0-3.0) mmol/L ABG Hemoglobin (11.7-17.4) g/dL ABG Carboxyhemoglobin (0.5-1.5) % POC ABG HHb (Measured) (0-5) % ABG Methemoglobin (0.0-3.0) % ABG O2 Capacity (16-24) mL/dl ABG Potassium 6.1 H (3.6-5.2) mmol/L Hgb O2 Saturation (95.0-98.0) % Glucose 452 H* D (75-110) mg/dl Lactate 1.1 (0.7-2.1) mmol/L FiO2 32.0 % Crit Value Called To [facility] Crit Value Called By [facility] Blood Gas Notified Time 708 Sodium 156 H* 156.0 H (132-148) mmol/L Potassium 6.5 H* (3.6-5.0) mmol/L Chloride 129 H 127.0 H (98-107) mmol/L Carbon Dioxide 22 (21-33) mmol/L Anion Gap 12 (10-20) BUN 143 H* (7-21) mg/dL Creatinine 2.7 H (0.8-1.5) mg/dl Est GFR ( Amer) 29 Est GFR (Non-Af Amer) 24 POC Glucose (mg/dL) (65-110) mg/dL Random Glucose 461 H* D (70-110) mg/dL Calcium 8.6 (8.4-10.5) mg/dL Phosphorus 8.4 H (2.5-4.5) mg/dL Magnesium 2.5 H (1.7-2.2) mg/dL Total Bilirubin 0.5 (0.2-1.3) mg/dL AST 47 (17-59) U/L ALT 79 H (7-56) U/L Alkaline Phosphatase 94 (38-126) U/L Total Protein 5.9 (5.8-8.3) g/dL Albumin 2.7 L (3.0-4.8) g/dL Globulin 3.2 gm/dL Albumin/Globulin Ratio 0.8 L (1.1-1.8) Arterial Blood Potassium 6.1 H (3.6-5.2) mmol/L 07/21/18 07/21/18 07/21/18 Range/Units 21:29 17:24 16:53 WBC (4.5-11.0) 10^3/uL RBC (3.5-6.1) 10^6/uL Hgb (14.0-18.0) g/dL Hct (42.0-52.0) % MCV (80.0-105.0) fl MCH (25.0-35.0) pg MCHC (31.0-37.0) g/dl RDW (11.5-14.5) % Plt Count (120.0-450.0) 10^3/uL Gran % (50.0-68.0) % Lymph % (Auto) (22.0-35.0) % Bladen % (Auto) (1.0-6.0) % Eos % (Auto) (1.5-5.0) % Baso % (Auto) (0.0-3.0) % Gran # (1.4-6.5) Lymph # (Auto) (1.2-3.4) Bladen # (Auto) (0.1-0.6) Eos # (Auto) (0.0-0.7) Baso # (Auto) (0.0-2.0) K/mm3 pCO2 (35-45) mm/Hg pO2 (80-100) mm/Hg HCO3 (21-28) mmol/L ABG pH (7.35-7.45) ABG Total CO2 (22-28) mmol.L ABG O2 Saturation (95-98) % ABG O2 Content (15-23) ML/dl ABG Base Excess (-2.0-3.0) mmol/L ABG Hemoglobin (11.7-17.4) g/dL ABG Carboxyhemoglobin (0.5-1.5) % POC ABG HHb (Measured) (0-5) % ABG Methemoglobin (0.0-3.0) % ABG O2 Capacity (16-24) mL/dl ABG Potassium (3.6-5.2) mmol/L Hgb O2 Saturation (95.0-98.0) % Glucose (75-110) mg/dl Lactate (0.7-2.1) mmol/L FiO2 % Crit Value Called To Crit Value Called By Blood Gas Notified Time Sodium 158 H* (132-148) mmol/L Potassium 5.5 H (3.6-5.0) mmol/L Chloride 131 H (98-107) mmol/L Carbon Dioxide 22 (21-33) mmol/L Anion Gap 9 L (10-20) BUN 115 H (7-21) mg/dL Creatinine 2.3 H (0.8-1.5) mg/dl Est GFR ( Amer) 35 Est GFR (Non-Af Amer) 29 POC Glucose (mg/dL) 349 H 358 H (65-110) mg/dL Random Glucose 313 H* D (70-110) mg/dL Calcium 8.7 (8.4-10.5) mg/dL Phosphorus (2.5-4.5) mg/dL Magnesium (1.7-2.2) mg/dL Total Bilirubin (0.2-1.3) mg/dL AST (17-59) U/L ALT (7-56) U/L Alkaline Phosphatase (38-126) U/L Total Protein (5.8-8.3) g/dL Albumin (3.0-4.8) g/dL Globulin gm/dL Albumin/Globulin Ratio (1.1-1.8) Arterial Blood Potassium (3.6-5.2) mmol/L 07/21/18 Range/Units 13:24 WBC (4.5-11.0) 10^3/uL RBC (3.5-6.1) 10^6/uL Hgb (14.0-18.0) g/dL Hct (42.0-52.0) % MCV (80.0-105.0) fl MCH (25.0-35.0) pg MCHC (31.0-37.0) g/dl RDW (11.5-14.5) % Plt Count (120.0-450.0) 10^3/uL Gran % (50.0-68.0) % Lymph % (Auto) (22.0-35.0) % Bladen % (Auto) (1.0-6.0) % Eos % (Auto) (1.5-5.0) % Baso % (Auto) (0.0-3.0) % Gran # (1.4-6.5) Lymph # (Auto) (1.2-3.4) Bladen # (Auto) (0.1-0.6) Eos # (Auto) (0.0-0.7) Baso # (Auto) (0.0-2.0) K/mm3 pCO2 (35-45) mm/Hg pO2 (80-100) mm/Hg HCO3 (21-28) mmol/L ABG pH (7.35-7.45) ABG Total CO2 (22-28) mmol.L ABG O2 Saturation (95-98) % ABG O2 Content (15-23) ML/dl ABG Base Excess (-2.0-3.0) mmol/L ABG Hemoglobin (11.7-17.4) g/dL ABG Carboxyhemoglobin (0.5-1.5) % POC ABG HHb (Measured) (0-5) % ABG Methemoglobin (0.0-3.0) % ABG O2 Capacity (16-24) mL/dl ABG Potassium (3.6-5.2) mmol/L Hgb O2 Saturation (95.0-98.0) % Glucose (75-110) mg/dl Lactate (0.7-2.1) mmol/L FiO2 % Crit Value Called To Crit Value Called By Blood Gas Notified Time Sodium (132-148) mmol/L Potassium (3.6-5.0) mmol/L Chloride (98-107) mmol/L Carbon Dioxide (21-33) mmol/L Anion Gap (10-20) BUN (7-21) mg/dL Creatinine (0.8-1.5) mg/dl Est GFR ( Amer) Est GFR (Non-Af Amer) POC Glucose (mg/dL) 211 H (65-110) mg/dL Random Glucose (70-110) mg/dL Calcium (8.4-10.5) mg/dL Phosphorus (2.5-4.5) mg/dL Magnesium (1.7-2.2) mg/dL Total Bilirubin (0.2-1.3) mg/dL AST (17-59) U/L ALT (7-56) U/L Alkaline Phosphatase (38-126) U/L Total Protein (5.8-8.3) g/dL Albumin (3.0-4.8) g/dL Globulin gm/dL Albumin/Globulin Ratio (1.1-1.8) Arterial Blood Potassium (3.6-5.2) mmol/L Laboratory Results - last 24 hr 07/21/18 07/21/18 07/21/18 13:24 16:53 17:24 WBC RBC Hgb Hct MCV MCH MCHC RDW Plt Count Gran % Lymph % (Auto) Bladen % (Auto) Eos % (Auto) Baso % (Auto) Gran # Lymph # (Auto) Bladen # (Auto) Eos # (Auto) Baso # (Auto) pCO2 pO2 HCO3 ABG pH ABG Total CO2 ABG O2 Saturation ABG O2 Content ABG Base Excess ABG Hemoglobin ABG Carboxyhemoglobin POC ABG HHb (Measured) ABG Methemoglobin ABG O2 Capacity ABG Potassium Hgb O2 Saturation Glucose Lactate FiO2 Crit Value Called To Crit Value Called By Blood Gas Notified Time Sodium 158 H* Potassium 5.5 H Chloride 131 H Carbon Dioxide 22 Anion Gap 9 L BUN 115 H Creatinine 2.3 H Est GFR ( Amer) 35 Est GFR (Non-Af Amer) 29 POC Glucose (mg/dL) 211 H 358 H Random Glucose 313 H* D Calcium 8.7 Phosphorus Magnesium Total Bilirubin AST ALT Alkaline Phosphatase Total Protein Albumin Globulin Albumin/Globulin Ratio Arterial Blood Potassium 07/21/18 07/22/18 07/22/18 21:29 06:47 07:00 WBC 20.8 H D RBC 3.28 L Hgb 8.5 L Hct 30.6 L MCV 93.3 MCH 25.9 MCHC 27.8 L RDW 17.4 H Plt Count 25 L* Gran % 92.8 H Lymph % (Auto) 5.9 L Bladen % (Auto) 1.3 Eos % (Auto) 0.0 L Baso % (Auto) 0.0 Gran # 19.33 H Lymph # (Auto) 1.2 Bladen # (Auto) 0.3 Eos # (Auto) 0.0 Baso # (Auto) 0.00 pCO2 62 H pO2 75.0 L HCO3 20.6 L ABG pH 7.13 L* ABG Total CO2 22.5 ABG O2 Saturation 97.0 ABG O2 Content ABG Base Excess -9.3 L ABG Hemoglobin ABG Carboxyhemoglobin POC ABG HHb (Measured) ABG Methemoglobin ABG O2 Capacity ABG Potassium 6.1 H Hgb O2 Saturation Glucose 452 H* D Lactate 1.1 FiO2 32.0 Crit Value Called To Rachell Crit Value Called By Guillermo Blood Gas Notified Time 708 Sodium 156.0 H Potassium Chloride 127.0 H Carbon Dioxide Anion Gap BUN Creatinine Est GFR ( Amer) Est GFR (Non-Af Amer) POC Glucose (mg/dL) 349 H Random Glucose Calcium Phosphorus Magnesium Total Bilirubin AST ALT Alkaline Phosphatase Total Protein Albumin Globulin Albumin/Globulin Ratio Arterial Blood Potassium 6.1 H 07/22/18 07/22/18 07/22/18 07:00 07:39 08:35 WBC RBC Hgb Hct MCV MCH MCHC RDW Plt Count Gran % Lymph % (Auto) Bladen % (Auto) Eos % (Auto) Baso % (Auto) Gran # Lymph # (Auto) Bladen # (Auto) Eos # (Auto) Baso # (Auto) pCO2 37 pO2 80.0 HCO3 18.6 L ABG pH 7.31 L ABG Total CO2 19.7 L ABG O2 Saturation 98.8 H ABG O2 Content 10.9 L ABG Base Excess -7.0 L ABG Hemoglobin 8.1 L ABG Carboxyhemoglobin 2.4 H POC ABG HHb (Measured) 1.2 ABG Methemoglobin 1.4 ABG O2 Capacity 11.0 L ABG Potassium Hgb O2 Saturation 94.9 L Glucose Lactate FiO2 40.0 Crit Value Called To Crit Value Called By Blood Gas Notified Time Sodium 156 H* Potassium 6.5 H* Chloride 129 H Carbon Dioxide 22 Anion Gap 12 BUN 143 H* Creatinine 2.7 H Est GFR ( Amer) 29 Est GFR (Non-Af Amer) 24 POC Glucose (mg/dL) 443 H* Random Glucose 461 H* D Calcium 8.6 Phosphorus 8.4 H Magnesium 2.5 H Total Bilirubin 0.5 AST 47 ALT 79 H Alkaline Phosphatase 94 Total Protein 5.9 Albumin 2.7 L Globulin 3.2 Albumin/Globulin Ratio 0.8 L Arterial Blood Potassium 07/22/18 10:50 WBC RBC Hgb Hct MCV MCH MCHC RDW Plt Count Gran % Lymph % (Auto) Bladen % (Auto) Eos % (Auto) Baso % (Auto) Gran # Lymph # (Auto) Bladen # (Auto) Eos # (Auto) Baso # (Auto) pCO2 pO2 HCO3 ABG pH ABG Total CO2 ABG O2 Saturation ABG O2 Content ABG Base Excess ABG Hemoglobin ABG Carboxyhemoglobin POC ABG HHb (Measured) ABG Methemoglobin ABG O2 Capacity ABG Potassium Hgb O2 Saturation Glucose Lactate FiO2 Crit Value Called To Crit Value Called By Blood Gas Notified Time Sodium Potassium Chloride Carbon Dioxide Anion Gap BUN Creatinine Est GFR ( Amer) Est GFR (Non-Af Amer) POC Glucose (mg/dL) 412 H* Random Glucose Calcium Phosphorus Magnesium Total Bilirubin AST ALT Alkaline Phosphatase Total Protein Albumin Globulin Albumin/Globulin Ratio Arterial Blood Potassium Radiology Impressions: Radiology Impressions Chest X-Ray 07/22/18 06:43 IMPRESSION: No active disease. Chest X-Ray 07/22/18 07:27 IMPRESSION: No active disease. Critical Care Progress Note - Nutrition Nutrition: Nutrition Category Date Time Status NPO Diet [DIET] Diets 07/06/18 Breakfast Ordered Assessment/Plan - Assessment and Plan (Free Text) Assessment: Patient seen and examined on rounds, with resident, agree with note with following additions/exceptions: Patient is 62yo male with PMhx of COPD, active smoker 2pks per day, HTN, DM, PVD, admitted for hypoxic respiratory failure, 2/2 Influenza PNA, and superimposed bacterial PNA. Patient was extubated, was doing well on 3LNC, for several days. This morning with worsening AMS, [id number], resp acidosis, unable to protect airway, subsequently intubated CXR with no new acute findings ABG after intubation with metabolic acidosis Morning labs today with worsening renal failure, Uremia, and hyperkalemia, renal following; Insulin drip, Kayex, Calcium given Pt's with chornic thrombocytopenia, no clinical evidence of overt bleeding Adequate UOP Patient with CIP PNA ARDS, resolved Respiratory failure FLU MODS Renal failure, s/p HD Thrombocytopenia rule out ITP/TTP COPD HTN PVD DM CIP Hypernatremia Hyperkalemia Recommend: - cont with vent support, low tidal vol ventilation, will need tracheostomy - monitor off abx, finished course of broad spectrum abx - BP control - monitor LFTs - FS control, restart, insulin drip - I/Os - cont 1/2 NS - calcium, Insulin drip, Kayex - Hold Feeds - follow up renal, may need HD again - Free water flushes increase to 500cc Q6hr - follow up cardio - GI ppx - DVT ppx - Monitor in MICU Critical care time 45 minutes
--- NOTE | 2018-07-22 08:20 | PCM.PROC ---
Procedures Attestation:: I certify that I have explained the specified Operation(s) or Procedure(s), risks, benefits and reasonable alternatives to the Patient and/or other person responsible. The opportunity was given to ask questions and all questions answered - Intubation Time Out Performed: Yes Sedative: Etomidate Laryngoscope: Jaswant (3) ET Tube Size: 8.0 ET Tube Secured at Depth: Yes ET Tube Secured Locarion: Lips (22 at lips) ET Tube Placement Confirmation: Visualized Passing Through Cords, Breath Sounds Equal Bilaterally Patient Tolerated Procedure: Well Procedure Immediate Complications: None
[2018-07-22 08:43] LABS: ARTERIAL BLOOD GAS HCO3 18.6 mmol/L (21-28); ARTERIAL BLOOD GAS HEMOGLOBIN 8.1 g/dL (11.7-17.4); ARTERIAL BLOOD GAS O2 CONTENT 10.9 ML/dl (15-23); ARTERIAL BLOOD GAS O2 SAT 98.8 % (95-98); ARTERIAL BLOOD GAS PCO2 37 mm/Hg (35-45); ARTERIAL BLOOD GAS PH 7.31 (7.35-7.45); ARTERIAL BLOOD GAS TCO2 19.7 mmol.L (22-28)
[2018-07-22] MEDS: Insulin Reg-MEDIUM-Coverage SC SCH (08:46)
--- NOTE | 2018-07-22 09:19 | PN ---
SUBJECTIVE: The patient was seen and examined at bedside on the ICU. He was reintubated for impending respiratory failure with agonal breathing. He remains with flaccid quadriparesis and arrangements are being made for placement to an LTAC for continued aggressive PT. OBJECTIVE: VITAL SIGNS: Temperature 100, pulse 87, blood pressure 125/57, respiratory rate 24 and oxygen saturation 98% on 40% FIO2. GENERAL: Intubated. HEENT: PERRL, EOMI. ETT in place. OGT in place. NECK: No JVD. LUNGS: Coarse anterior breath sounds anteriorly. CARDIOVASCULAR: Regular rate and rhythm. Normal S1 and S2. ABDOMEN: Normoactive bowel sounds. Soft and nondistended. EXTREMITIES: 1+ edema in all extremities. NEUROLOGIC: Intubated and sedated. LABORATORY DATA: WBC 20,000 with 93% neutrophils, hemoglobin 8.5, hematocrit 31 and platelets 25. Chemistry pending. ASSESSMENT: The patient is a 62-year-old man with multiple medical comorbidities who was admitted to the ICU s/p intubation for acute hypoxic respiratory failure and severe sepsis secondary to community-acquired pneumonia who is now s/p reintubation for impending respiratory failure. PLAN: 1. Acute hypoxic respiratory failure s/p reintubation. Continue with care as per Dr. Burr and ICU team. The patient may require tracheostomy. 2. Severe sepsis secondary to community-acquired pneumonia with influenza, resolved. Input from Dr. Lucero appreciated and the patient has completed a course of antimicrobials. Cultures remain negative. We will continue to monitor off antimicrobials. Continue to monitor for fever. 3. Acute kidney injury secondary to ATN. Continue with care as per Dr. Mcnamara. 4. NSTEMI. The patient unfortunately is not a candidate for cardiac catheterization given his clinical condition. Continue with care as per Dr. Saxena. 5. Atrial fibrillation, new onset, rate controlled. Continue with Diltiazem and Digoxin. 6. Acute systolic heart failure. As above, the patient unfortunately is not a candidate for cardiac catheterization given his clinical condition. 7. Hypernatremia. Continue with free water boluses via NG tube and IV fluid hydration. 8. 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 Input from Dr. Mcdaniels appreciated. Arrangements are being made for transfer to LTAC for continued aggressive physical therapy. 9. Transaminitis, likely secondary shock liver in the setting of severe sepsis, resolved. 10. Thrombocytopenia secondary to ITP. Continue with care as per Dr. Estevez. 11. Normocytic anemia. Hb stable with no evidence of active bleed. 12. Type 2 diabetes mellitus. Continue with current insulin regimen. 13. Hypertension. 14. Pseudogout. 15. Anxiety disorder. 16. GERD. 17. Prophylaxis. Continue Protonix for GI prophylaxis and SCDs for DVT prophylaxis. CODE STATUS: Full code. Yassine Martinez MD MTDЮлия
[2018-07-22] MEDS: Dexamethasone 40 MG in Sodium Chloride 0.9% 50 ML IV SCH (09:48)
[2018-07-22] MEDS ORDERED: Insulin Regular 100 UNITS in Sodium Chloride 0.9% 99 ML IV PRN ×2 (10:07→10:49)
--- NOTE | 2018-07-22 10:07 | PN ---
DATE: 07/22/2018 PULMONARY NOTE SUBJECTIVE: The patient appears worse this morning. He is more lethargic and more short of breath. He is not opening his eyes. PHYSICAL EXAMINATION: VITAL SIGNS: Temperature is 100, pulse 87, respiratory rate 30, blood pressure 125/57. Oxygen saturation on nasal cannula is 92%. HEENT: Normocephalic, atraumatic. No JVD. CARDIOVASCULAR: Systolic ejection murmur at the lower left sternal border. No S3 gallop. LUNGS: Decreased breath sounds at the bases. Mild bilateral rhonchi. No wheezing. GI: Abdomen is soft, nondistended. Bowel sounds are positive. EXTREMITIES: Mild edema. No cyanosis, no clubbing. SKIN: No acute rash. NEUROLOGIC: Exam limited at the present time. 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 The chest x-ray is a poor rotated film. It does not appear significantly changed from the previous film. Official results are pending. Arterial blood gas was done on nasal cannula. Results are: PH 7.13, pCO2 62, pO2 of 75. IMPRESSION: 1. Respiratory failure. 2. Bilateral pneumonia. 3. Rule out myocardial infarction. 4. Ischemic dilated cardiomyopathy. 5. Renal failure. 6. Anemia, thrombocytopenia. 7. Chronic obstructive pulmonary disease. 8. Rule out critical illness polyneuropathy. PLAN: The patient appears worse this morning. He is more lethargic. He is also more short of breath. He appears to be taking shallow respiratory breaths. I discussed the case with the night nurse at length. The night nurse confirms that the patient is not doing well overall. On physical exam, there is no significant bronchospasm noted. However, there is an increase in the alveolar-arterial gradient. Stat arterial blood gas is noted above. The blood gas reveals a severe respiratory acidosis. I did have a long discussion with the ICU team earlier this morning. The plan will be to proceed with intubation. Due to his clinical and neurologic status being the way it is, the patient may very well need a tracheostomy. I will continue with the current nebulizer treatments for now. The patient also remains off antibiotic therapy - as per Infectious Disease. Input by Dr. Lucero is noted. Inputs by Renal and Cardiology are also noted. Neurologic reevaluation is ordered for this morning. The patient is critically ill at this point in time with very, very guarded prognosis. Again, I did discuss the case with the ICU team at length. I will also discuss the case with the attending physician later this morning. Balta Burr MD MOE
[2018-07-22 10:08] LABS: ALB/GLOB RATIO 0.8 (1.1-1.8); ALBUMIN 2.7 g/dL (3.0-4.8); CALCIUM 8.6 mg/dL (8.4-10.5)
[2018-07-22] MEDS ORDERED: Sodium Chloride 0.9% 1,000 ML IV STA (10:09)
[2018-07-22] MEDS ORDERED: Albuterol 0.5% Inhal Sol (2.5 mg/0.5 ml) UD IH STA ×2 (10:15→11:04)
[2018-07-22] MEDS ORDERED: Sodium Bicarbonate (8.4%) 50 Meq Syringe IVP ONE (10:32)
--- NOTE | 2018-07-22 10:44 | RAD ---
Date of service: 07/22/2018 HISTORY: rales, desaturation COMPARISON: 07/21/2018 FINDINGS: LUNGS: No active pulmonary disease. PLEURA: No significant pleural effusion identified, no pneumothorax apparent. CARDIOVASCULAR: No aortic atherosclerotic calcification present. Normal cardiac size. No pulmonary vascular congestion. OSSEOUS STRUCTURES: No significant abnormalities. VISUALIZED UPPER ABDOMEN: NG tube in satisfactory position just below the GE junction OTHER FINDINGS: None. IMPRESSION: No active disease.
--- NOTE | 2018-07-22 10:45 | RAD ---
Date of service: 07/22/2018 HISTORY: chest tube placement COMPARISON: 07/22/2018 FINDINGS: LUNGS: No active pulmonary disease. PLEURA: No significant pleural effusion identified, no pneumothorax apparent. CARDIOVASCULAR: No aortic atherosclerotic calcification present. Normal cardiac size. No pulmonary vascular congestion. OSSEOUS STRUCTURES: No significant abnormalities. VISUALIZED UPPER ABDOMEN: Normal. OTHER FINDINGS: Nasogastric tube and endotracheal tube in satisfactory position IMPRESSION: No active disease.
[2018-07-22] MEDS: ELTROMBOPAG OLAMINE 75 MG PO SCH (11:14)
[2018-07-22] MEDS: Sodium Chloride 0.45% 1,000 ML IV SCH (11:17)
[2018-07-22] MEDS: Digoxin 500 mcg/2ml (0.5 mg/2ml) Inj IVP SCH (14:05)
[2018-07-22 14:40] LABS: ALB/GLOB RATIO 0.8 (1.1-1.8); ALBUMIN 2.4 g/dL (3.0-4.8); CALCIUM 8.6 mg/dL (8.4-10.5)
--- NOTE | 2018-07-22 17:24 | RAD ---
Date of service: 07/22/2018 HISTORY: post PICC line placement COMPARISON: July 22, 2018 Time of the most recent examination: 07:55 FINDINGS: LUNGS: Right lower lobe atelectasis/infiltrate a new. PLEURA: Probable small right pleural effusion inseparable right lower lobe infiltrate CARDIOVASCULAR: No atherosclerotic calcification present Normal. OSSEOUS STRUCTURES: No significant abnormalities. VISUALIZED UPPER ABDOMEN: Normal. OTHER FINDINGS: Stable position endotracheal tube and nasogastric tube. PICC line tip in the SVC. No pneumothorax visible IMPRESSION: Status post PICC line placement via left upper extremity approach. The tip is in the SVC. New right lower lobe infiltrate/right pleural effusion. Stable position of endotracheal tube and nasogastric tube.
[2018-07-22] MEDS ORDERED: Vancomycin 2 GM in Sodium Chloride 0.9% 500 ML IVPB ONE (18:03)
--- NOTE | 2018-07-22 18:10 | CP.PCM.PN ---
Subjective - Date & Time of Evaluation Date of Evaluation: 07/22/18 Time of Evaluation: 10:00 - Subjective Subjective: Patient noted to be more lethargic this morning and with rapid shallow breaths = patient is now re-intubated. No fevers this morning but still had low grade temperatures overnight. CXR in the morning did not show infiltrates but repeat one ordered for this afternoon is showing possible right lower lobe infiltrate. Objective - Vital Signs/Intake and Output Vital Signs (last 24 hours): Temp Pulse Resp BP Pulse Ox 100.6 F H 98 H 20 133/67 93 L 07/21/18 07:59 07/21/18 10:36 07/21/18 06:59 07/21/18 10:36 07/21/18 07:59 Intake and Output: 07/21/18 07/21/18 06:59 18:59 Intake Total 2086 9 Output Total 1000 Balance 1086 9 - Medications Medications: Current Medications Acetaminophen (Tylenol 650mg/20.3ml Solution Ud) 650 mg PO Q6H PRN PRN Reason: Fever 101F Last Admin: 07/20/18 13:20 Dose: 650 mg Albuterol/Ipratropium (Duoneb 3 Mg/0.5 Mg (3 Ml) Ud) 3 ml IH [id number] [facility] Last Admin: 07/21/18 07:00 Dose: 3 ml Albuterol/Ipratropium (Duoneb 3 Mg/0.5 Mg (3 Ml) Ud) 3 ml IH Q2H PRN PRN Reason: Shortness of Breath Last Admin: 07/11/18 23:55 Dose: 3 ml Digoxin (Lanoxin) 0.125 mg IVP 1400 [facility] Last Admin: 07/20/18 13:21 Dose: 0.125 mg Diltiazem HCl (Cardizem) 60 mg PO TID [facility] Last Admin: 07/21/18 10:36 Dose: 60 mg Famotidine (Pepcid) 20 mg IVP DAILY [facility] Sodium Chloride (Sodium Chloride 0.45%) 1,000 mls @ 100 mls/hr IV .Q10H [facility] Last Admin: 07/21/18 10:33 Dose: 100 mls/hr Dexamethasone 40 mg/ Sodium (Chloride) 60 mls @ 120 mls/hr IV DAILY [facility] Last Admin: 07/21/18 10:30 Dose: 120 mls/hr Insulin Detemir (Levemir) 30 unit SC [facility] Last Admin: 07/19/18 21:47 Dose: 30 units Insulin Human Regular (Humulin R Med) 0 units SC [facility]; Protocol Last Admin: 07/21/18 12:28 Dose: 3 units Non-Formulary Medication (Eltrombopag Olamine [Promacta]) 75 mg PO DAILY [facility] Last Admin: 07/21/18 10:30 Dose: Not Given Vitamin A (Vitamin A&D) 1 applic TP Q8 PRN PRN Reason: Dry mouth - Labs Labs: 07/21/18 06:20 07/21/18 06:20 PT 12.5 SECONDS (9.4-12.5) 07/19/18 05:00 INR 1.09 07/19/18 05:00 APTT 18.7 Seconds (25.1-36.5) L 07/06/18 11:54 - Constitutional Appears: Chronically Ill, Other (intubated) - Head Exam Head Exam: NORMAL INSPECTION - ENT Exam Additional comments: ET tube in place - Respiratory Exam Respiratory Exam: Decreased Breath Sounds - Cardiovascular Exam Cardiovascular Exam: +S1, +S2 - GI/Abdominal Exam GI & Abdominal Exam: Soft. absent: Tenderness Assessment and Plan - Assessment and Plan (Free Text) Plan: Assessment increasing leukocytosis, multifactorial, with new onset SIRS now with VDRF, consider new onset sepsis due to right lower lobe aspiration HAP thrombocytopenia probably ITP flaccid weakness of extremities consider critical illness polyneuropathy and myopathy S/P Severe sepsis with hypoxic respiratory failure and S/P ventilator-dependent respiratory failure and acute on chronic renal failure as well as thrombocytopenia due to severe right sided community-acquired pneumonia S/P viral infection with Influenza A in this patient with CVA significant and active smoking history COPD HTN DM peripheral vascular disease history of right elbow septic arthritis history of right upper extremity cellulitis Plan will give a loading dose of IV vancomycin and start renally-adjusted Merrem and will repeat blood and sputum cx, PCT; reviewed CXR discussed with Dr. Burr - probable has critically ill- related myopathy and neuropathy - may discuss with Neurology to see if patient may benefit from IVIG again (already received it for the thrombocytopenia), with further work up considered patient has been started on steroids by Heme/Onc prognosis is worsening and patient continues to be in critical condition
[2018-07-22] MEDS: MEROPENEM 500 MG in NS 500 MG/50 ML BAG IVPB SCH ×2 (18:34→21:15)
[2018-07-22 20:28] LABS: CALCIUM 8.5 mg/dL (8.4-10.5)
--- NOTE | 2018-07-22 22:29 | PN ---
DATE: 07/22/2018 SUBJECTIVE: The patient is seen lying in bed in the ICU. He is now on mechanical ventilation. Clinically worsening. His WBC count has risen to 20,000. His sodium today is 157. His potassium was 6.5 this morning. His BUN has risen to 143. His creatinine has gone up again to 2.7. His glucose is 461. He was restarted on the insulin drip. His intake and output has been 4000/1800. He was intubated this morning after his ABG showed an elevated CO2. PHYSICAL EXAMINATION: GENERAL: Elderly male lying in bed on mechanical ventilation. VITAL SIGNS: Blood pressure 103/55, heart rate 74, respiratory rate 24, and temperature 99.5. HEENT: Normocephalic and atraumatic. Positive pallor. NECK: Supple. No JVD. LUNGS: Bilateral equal air entry, bilateral equal expansion, bilateral rhonchi. CARDIAC: S1 and S2, regular rate and rhythm. No murmur. No rub. ABDOMEN: Obese, distended, soft, and nontender. Bowel sounds present. EXTREMITIES: Chronic stasis changes. No edema. INTAKE AND OUTPUT: 4179/1800. LABORATORY DATA: WBC 20.8, hemoglobin 8.5, hematocrit 30.6, and platelets 25. Sodium 157, potassium 4.4, chloride 128, CO2 of 20, BUN 146, creatinine 2.4, glucose 315, and calcium 8.6. Urine culture from the no growth. CURRENT MEDICATIONS: Cardizem 60 t.i.d. on hold, desmopressin 1 mcg in sodium chloride at 100 mL per hour, Decadron 40 mg daily, Diprivan, DuoNeb, eltrombopag, insulin, digoxin, meropenem 500 every 12 hours, Pepcid, half-normal saline at 100, Tylenol, and vancomycin 2 g given today. ASSESSMENT: 1. Critically ill, clinically worsened. 2. Hypercapnic respiratory acidosis, now intubated. 3. Worsening hypernatremia. 4. Hyperkalemia this morning. 5. Worsening renal parameters, rising BUN and creatinine. 6. Rising white blood cell count once again, ?secondary to steroids, ?new infection. 7. Critical illness polyneuropathy, receiving high dose steroids. 8. Severe uncontrolled hyperglycemia, elevated potassium partly because of hyperglycemia and transcellular shift of potassium. 9. New fever. 10. Qut-xboedzm-xpoqhiyvm diabetes mellitus. 11. Underlying chronic kidney disease stage III. 12. New atrial fibrillation. PLAN: 1. Agree with empiric antibiotics once again. 2. Agree with respiratory management and mechanical ventilation. 3. ?discontinue steroids. 4. Continue empiric antibiotics. 5. May need dialysis again if renal parameters continue to worsen. Case discussed at length with ICU resident, case discussed with ICU attending, and case discussed with ICU nursing staff. More than 35 minutes spent in the care of this critically ill patient. Prognosis remains grim. Bobbi Sullivan MD
[2018-07-22] MEDS: Insulin Lispro (humaLOG) MEDIUM Coverage SC SCH (23:57)
[2018-07-23] MEDS: Propofol 10 mg/ml 1,000 MG/100 ML VIAL IV PRN ×2 (01:05→13:15)
[2018-07-23 02:27] LABS: CALCIUM 8.1 mg/dL (8.4-10.5)
[2018-07-23] MEDS: Albuterol-Ipratrop 3 mg / 0.5 (3 ml) UD IH SCH ×4 (03:04→20:37)
[2018-07-23 06:55] LABS: GRAN # 11.48 (1.4-6.5); GRAN % 93.8 % (50.0-68.0); HEMOGLOBIN 7.2 g/dL (14.0-18.0); LYMPH # 0.7 (1.2-3.4); LYMPH % 5.3 % (22.0-35.0); MEAN CELL VOLUME 89.4 fl (80.0-105.0); MEAN CORPUSCULAR HEMOGLOBIN 26.3 pg (25.0-35.0); MEAN CORPUSCULAR HGB CONC 29.4 g/dl (31.0-37.0); MONO # 0.1 (0.1-0.6); MONO % 0.9 % (1.0-6.0); RBC 2.74 10^6/uL (3.5-6.1); RED CELL DISTRIBUTION WIDTH 17.4 % (11.5-14.5); WHITE BLOOD COUNT 12.2 10^3/uL (4.5-11.0)
[2018-07-23 07:00] LABS: ARTERIAL BLOOD GAS HCO3 17.2 mmol/L (21-28); ARTERIAL BLOOD GAS O2 CAPACITY 16.6 mL/dl (16-24); ARTERIAL BLOOD GAS O2 CONTENT 16.5 ML/dl (15-23); ARTERIAL BLOOD GAS O2 SAT 99.3 % (95-98); ARTERIAL BLOOD GAS PCO2 29 mm/Hg (35-45); ARTERIAL BLOOD GAS PH 7.38 (7.35-7.45); ARTERIAL BLOOD GAS TCO2 18.1 mmol.L (22-28)
--- NOTE | 2018-07-23 07:18 | PN ---
DATE: 07/23/2018 PULMONARY NOTE SUBJECTIVE: The patient remains in the ICU. He is currently sedated and on the ventilator. OBJECTIVE: VITAL SIGNS: Temperature is 99.1, pulse 79, respirations 18/14, blood pressure 109/51. HEENT: Normocephalic, atraumatic. NECK: No JVD. CARDIOVASCULAR: Systolic ejection murmur at the lower left sternal border. No S3 gallop. LUNGS: Decreased breath sounds at the bases. Minimal/less rhonchi. No wheezing. EXTREMITIES: Mild edema. No cyanosis, no clubbing. GASTROINTESTINAL: Abdomen is soft, nondistended. Bowel sounds are positive. SKIN: No acute rash. NEUROLOGIC: Limited at the present time. 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 The chest x-ray shows only minimal infiltrates bilaterally - much improved compared to last week. Official results are pending. Arterial blood gas is ordered - pending. IMPRESSION: 1. Respiratory failure. 2. Bilateral pneumonia. 3. Rule out myocardial infarction. 4. Ischemic dilated cardiomyopathy. 5. Renal failure. 6. Anemia, thrombocytopenia. 7. Chronic obstructive pulmonary disease. 8. Rule out critical illness polyneuropathy. PLAN: The patient remains in the ICU. He is currently sedated and on the ventilator. I did discuss the case with the night nurse at length. The night nurse stated the patient had an uneventful night. I did review the chest x-ray from this morning. Again, the chest x-ray shows only minimal pulmonary infiltrates - much improved from last week. Again, there is an arterial blood gas pending. I will be called with those results. On physical exam, there is no significant bronchospasm noted. I will continue the current nebulizer treatments for now. The patient is now back on antibiotic therapy - as per Infectious Disease. Input by Dr. Lucero is noted. The temperatures appear to be resolving. Inputs by Renal and Internal Medicine are noted. We are also awaiting additional neurologic input. The patient remains critically ill with very guarded prognosis. I will discuss the above with the entire ICU team in the next few moments. I will discuss the above with Dr. Martinez later this morning. Balta Burr MD [id number]
[2018-07-23 07:34] LABS: ALB/GLOB RATIO 0.8 (1.1-1.8); ALBUMIN 2.4 g/dL (3.0-4.8)
[2018-07-23 07:38] LABS: PLATELET COUNT 9 10^3/uL (120.0-450.0)
[2018-07-23] MEDS: Insulin Lispro (humaLOG) MEDIUM Coverage SC SCH ×2 (07:42→11:53)
--- NOTE | 2018-07-23 08:16 | CP.PCM.PN ---
Subjective - Date & Time of Evaluation Date of Evaluation: 07/23/18 Time of Evaluation: 08:11 - Subjective Subjective: PGY-2 heme/onc progress note Patient was intubated and received a PICC yesterday. Currently intubated - ROS are unobtainable. Objective - Vital Signs/Intake and Output Vital Signs (last 24 hours): Temp Pulse Resp BP Pulse Ox 98.6 F 69 24 124/68 100 07/23/18 07:03 07/23/18 07:03 07/22/18 07:54 07/23/18 07:00 07/23/18 06:00 Intake and Output: 07/23/18 07/23/18 06:59 18:59 Intake Total 1295 Output Total 1200 Balance 95 - Medications Medications: Current Medications Acetaminophen (Tylenol 650mg/20.3ml Solution Ud) 650 mg PO Q6H PRN PRN Reason: Fever 101F Last Admin: 07/20/18 13:20 Dose: 650 mg Albuterol/Ipratropium (Duoneb 3 Mg/0.5 Mg (3 Ml) Ud) 3 ml IH [id number] [facility] Last Admin: 07/23/18 07:50 Dose: 3 ml Albuterol/Ipratropium (Duoneb 3 Mg/0.5 Mg (3 Ml) Ud) 3 ml IH Q2H PRN PRN Reason: Shortness of Breath Last Admin: 07/11/18 23:55 Dose: 3 ml Digoxin (Lanoxin) 0.125 mg IVP 1400 [facility] Last Admin: 07/22/18 14:05 Dose: 0.125 mg Diltiazem HCl (Cardizem) 60 mg PO TID [facility] Last Admin: 07/22/18 18:34 Dose: Not Given Famotidine (Pepcid) 20 mg IVP DAILY [facility] Last Admin: 07/22/18 09:52 Dose: 20 mg Sodium Chloride (Sodium Chloride 0.45%) 1,000 mls @ 100 mls/hr IV .Q10H [facility] Last Admin: 07/22/18 11:17 Dose: 100 mls/hr Dexamethasone 40 mg/ Sodium (Chloride) 60 mls @ 120 mls/hr IV DAILY [facility] Last Admin: 07/22/18 09:48 Dose: 120 mls/hr Propofol (Diprivan) 1,000 mg in 100 mls @ 2.545 mls/hr IV .Q24H PRN; Protocol PRN Reason: TITRATE PER MD ORDER Last Titration: 07/23/18 06:00 Dose: 10 mcg/kg/min, 5.089 mls/hr Desmopressin Acetate 1 mcg/ (Sodium Chloride) 50.25 mls @ 100 mls/hr IV BID [facility] Last Admin: 07/22/18 18:34 Dose: 100 mls/hr Meropenem/Sodium Chloride (Merrem Iv 500 Mg/Ns 50 Ml) 500 mg in 50 mls @ 100 mls/hr IVPB Q12 [facility]; Protocol Stop: 07/29/18 18:16 Last Admin: 07/22/18 21:15 Dose: 100 mls/hr Insulin Detemir (Levemir) 30 unit SC HS [facility] Last Admin: 07/22/18 06:56 Dose: 30 units Insulin Human Lispro (Humalog Med) 0 units SC ACHS [facility]; Protocol Last Admin: 07/23/18 07:42 Dose: 3 unit Non-Formulary Medication (Eltrombopag Olamine [Promacta]) 75 mg PO DAILY [facility] Last Admin: 07/22/18 11:14 Dose: 75 mg Vitamin A (Vitamin A&D) 1 applic TP Q8 PRN PRN Reason: Dry mouth - Labs Labs: 07/23/18 06:00 07/23/18 06:00 PT 12.5 SECONDS (9.4-12.5) 07/19/18 05:00 INR 1.09 07/19/18 05:00 APTT 18.7 Seconds (25.1-36.5) L 07/06/18 11:54 - Additional Findings Additional findings: - Constitutional Appears: No Acute Distress, Older Than Stated Age, Chronically Ill - Head Exam Head Exam: ATRAUMATIC, NORMAL INSPECTION - Eye Exam Eye Exam: EOMI, PERRL. absent: Scleral icterus - ENT Exam ENT Exam: Mucous Membranes Moist Additional comments: Dobhoff in place in R nares ET tube in place - Respiratory Exam Respiratory Exam: Decreased Breath Sounds, Clear to Ausculation Bilateral - Cardiovascular Exam Cardiovascular Exam: REGULAR RHYTHM, +S1, +S2. absent: JVD - GI/Abdominal Exam GI & Abdominal Exam: Soft, Normal Bowel Sounds Additional comments: R femoral cath removed, dressing c/d/i, without hematoma - Extremities Exam Extremities Exam: Normal Capillary Refill Additional comments: chronic diabetic ulcer noted to anterior anderson of left lower extremity Occasional spontaneous motor movement at this time in lower extremities - Neurological Exam Neurological Exam: Awake Additional comments: spontaneous motor movement at this time in upper extremities responds to painful stimuli unable to coherently respond verbally - Skin Skin Exam: Intact, Warm Additional comments: Ecchymotic in R antecubital region, stable; ecchymoses at different levels of healing throughout extremities Assessment and Plan - Assessment and Plan (Free Text) Plan: Mr. Damon is a 62 y/o man with pmhx significant for COPD, HTN; DM; PVD; and ITP admitted with ARDS in setting of NSTEMI and pneumonia/flu+ now s/p extubation with anticoagulants held due to thrombocytopenia: ITP -must rule-out MAHA and TTP -platelets 9, manual platelets pending, latest INR 1.09 * transfuse 1 unit platelets today and check cbc 1 hour after * s/p 1 unit platelets on 07/20/18 * total 5 unit PLT transfused -HIT antibody negative, MARCELO test negative, Negative IVONE and ANCA studies, direct bilirubin normal -obtain peripheral smear * 07/08/18 Peripheral smear shows no atypical cells or immature forms. Mild anisopoikilocytosis. No schistocytes. No PL clumping although markedly reduced. * 07/20/18 Neutrophils 96% lymphocytes 2% monocytes 2%; red blood cells are normocytic normochromic with mild anisocytosis; no schistocytes or nucleated red blood cells seen; platelets are markedly reduced; no clumping of platelets presents -received 5 days of IVIG 07/07/2018 - 07/11/2018 given -start empiric treatment for ITP start dextromethasone 40mg iv qd for 5 days (started 07/20/18) -patient was previously on promacta outpatient - we will restart this medication now - told to bring in medication from home * promacta started on 07/22/18 -transfuse if <20 or actively bleeding -hold off on DVT chemoprophylaxis at this time, may resume of platelets >50 -stopped protonix and started on iv pepcid 20mg qd 07/21/17 as association with protonix and thrombocytopenia Case discussed with Dr Zachary Estevez
--- NOTE | 2018-07-23 08:32 | RAD ---
Date of service: 07/23/2018 HISTORY: f/u COMPARISON: Portable chest 07/22/2018 FINDINGS: LUNGS: Left PICC, nasogastric and endotracheal tubes are unchanged in position. Prior medial basilar airspace disease has resolved at the right with none identified in the interval at the left. PLEURA: No significant pleural effusion identified, no pneumothorax apparent. CARDIOVASCULAR: No aortic atherosclerotic calcification present. Normal cardiac size. No pulmonary vascular congestion. OSSEOUS STRUCTURES: No significant abnormalities. VISUALIZED UPPER ABDOMEN: Normal. OTHER FINDINGS: None. IMPRESSION: Resolution of prior medial basilar airspace disease with tubes and catheters unchanged in position as per above.
[2018-07-23] MEDS: MEROPENEM 500 MG in NS 500 MG/50 ML BAG IVPB SCH ×2 (09:31→21:07)
[2018-07-23] MEDS: ELTROMBOPAG OLAMINE 75 MG PO SCH (09:32)
[2018-07-23] MEDS: Dexamethasone 40 MG in Sodium Chloride 0.9% 50 ML IV SCH (10:08)
--- NOTE | 2018-07-23 11:44 | CP.CCUPN ---
<Dannie Yeh - Last Filed: 07/23/18 12:14> CCU Subjective - Physician Review Subjective (Free Text): Dannie Yeh PGY1 Critical Care Progress Note Patient seen and examined at bedside this morning. No acute events overnight and patient afebrile. Will give one unit of platelets and start D5 free water. Will start 3 day course of IVIG. More awake today compared to previous days. 12 point ROS unobtainable due to patient status. Pending placement to LTAC facility. CCU Objective - Vital Signs / Intake & Output Vital Signs (Last 4 hours): Vital Signs Temp Pulse BP Pulse Ox 07/23/18 10:00 79 107/53 L 100 07/23/18 09:30 80 125/64 07/23/18 09:00 78 125/64 100 07/23/18 08:00 98.6 F 72 132/77 100 Intake and Output (Last 8hrs): Intake & Output 07/22/18 07/23/18 07/23/18 22:59 06:59 14:59 Intake Total 2692 1295 Output Total 1700 1200 Balance 992 95 Weight 179 lb 9.6 oz Intake: IV 2092 1295 0.5 1200 Right Hand 2078 propofol 60 Tube Feeding 600 Output: Urine 1700 1200 Urethral ([place]) 1700 1200 Other: # Bowel Movements 0 - Physical Exam Head: Positive for: Atraumatic, Normocephalic Pupils: Positive for: PERRL Extroacular Muscles: Negative for: EOMI (unable to be assessed) Conjunctiva: Positive for: Normal Mouth: Positive for: Dry, Drooling Pharnyx: Positive for: Other (intubated ) Respiratory/Chest: Positive for: Clear to Auscultation, Decreased Breath Sounds. Negative for: Respiratory Distress, Wheezes, Tachypneic Cardiovascular: Positive for: Normal S1, S2. Negative for: Murmurs Abdomen: Negative for: Tenderness, Peritoneal Signs, Guarding Back: Positive for: Normal Inspection Upper Extremity: Positive for: Normal Inspection, Other (flaccid). Negative for: Cyanosis, Edema Lower Extremity: Positive for: Edema (1+ pitting edema noted to right lower extremity; chronic diabetic ulcer noted to anterior anderson of left lower extremity ), Other (flaccid) Neurological: Negative for: GCS=15, CN II-XII Intact, Speech Normal Skin: Positive for: Warm, Dry, Normal Color, Other (Ecchymotic in R antecubital region, stable; ecchymoses at different levels of healing throughout extremities). Negative for: Rashes Psychiatric: Negative for: Oriented x 3, Normal Insight - Medications Active Medications: Active Medications Generic Name Dose Route Start Last Admin Trade Name Freq PRN Reason Stop Dose Admin Acetaminophen 650 mg 07/08/18 18:18 07/20/18 13:20 Tylenol 650mg/20.3ml Solution Ud PO 650 mg Q6H PRN Administration Fever 101F Albuterol/Ipratropium 3 ml 07/03/18 14:00 07/23/18 07:50 Duoneb 3 Mg/0.5 Mg (3 Ml) Ud IH 3 ml [id number] SEEMA Administration Albuterol/Ipratropium 3 ml 07/03/18 11:04 07/11/18 23:55 Duoneb 3 Mg/0.5 Mg (3 Ml) Ud IH 3 ml Q2H PRN Administration Shortness of Breath Digoxin 0.125 mg 07/13/18 14:00 07/22/18 14:05 Lanoxin IVP 0.125 mg 1400 SEEMA Administration Diltiazem HCl 60 mg 07/17/18 14:00 07/23/18 09:30 Cardizem PO 60 mg TID SEEMA Administration Famotidine 20 mg 07/22/18 10:00 07/23/18 09:29 Pepcid IVP 20 mg DAILY SEEMA Administration Sodium Chloride 1,000 mls @ 100 mls/hr 07/20/18 10:15 07/22/18 11:17 Sodium Chloride 0.45% IV 100 mls/hr .Q10H SEEMA Administration Dexamethasone 40 mg/ Sodium 60 mls @ 120 mls/hr 07/20/18 12:00 07/23/18 10:08 Chloride IV 120 mls/hr DAILY SEEMA Administration Propofol 1,000 mg in 100 mls @ 2.545 mls/hr 07/22/18 08:29 07/23/18 06:00 Diprivan IV 10 mcg/kg/min .Q24H PRN 5.089 mls/hr TITRATE PER MD ORDER Titration Protocol 5 MCG/KG/MIN Desmopressin Acetate 1 mcg/ 50.25 mls @ 100 mls/hr 07/22/18 18:00 07/23/18 10:08 Sodium Chloride IV 100 mls/hr BID SEEMA Administration Meropenem/Sodium Chloride 500 mg in 50 mls @ 100 mls/hr 07/22/18 18:15 07/23/18 09:31 Merrem Iv 500 Mg/Ns 50 Ml IVPB 07/29/18 18:16 100 mls/hr Q12 SEEMA Administration Protocol Insulin Detemir 30 unit 07/17/18 10:39 07/22/18 06:56 Levemir SC 30 units HS SEEMA Administration Insulin Human Lispro 0 units 07/22/18 23:45 07/23/18 07:42 Humalog Med SC 3 unit ACHS SEEMA Administration Protocol Non-Formulary Medication 75 mg 07/21/18 16:34 07/23/18 09:32 Eltrombopag Olamine [Promacta] PO 75 mg DAILY SEEMA Administration Vitamin A 1 applic 07/13/18 16:53 Vitamin A&D TP Q8 PRN Dry mouth - Patient Studies Lab Studies: Microbiology Studies 07/19/18 10:30 Blood Culture - Preliminary Blood NO GROWTH AFTER 4 DAYS 07/19/18 10:55 Blood Culture - Preliminary Blood NO GROWTH AFTER 4 DAYS Lab Studies 07/23/18 07/23/18 07/23/18 Range/Units 11:16 08:10 07:14 WBC (4.5-11.0) 10^3/uL RBC (3.5-6.1) 10^6/uL Hgb (14.0-18.0) g/dL Hct (42.0-52.0) % MCV (80.0-105.0) fl MCH (25.0-35.0) pg MCHC (31.0-37.0) g/dl RDW (11.5-14.5) % Plt Count (120.0-450.0) 10^3/uL Manual Plt Count 14 L* (120-450) K/mm3 Gran % (50.0-68.0) % Lymph % (Auto) (22.0-35.0) % [place] % (Auto) (1.0-6.0) % Eos % (Auto) (1.5-5.0) % Baso % (Auto) (0.0-3.0) % Gran # (1.4-6.5) Lymph # (Auto) (1.2-3.4) [place] # (Auto) (0.1-0.6) Eos # (Auto) (0.0-0.7) Baso # (Auto) (0.0-2.0) K/mm3 pCO2 (35-45) mm/Hg pO2 (80-100) mm/Hg HCO3 (21-28) mmol/L ABG pH (7.35-7.45) ABG Total CO2 (22-28) mmol.L ABG O2 Saturation (95-98) % ABG O2 Content (15-23) ML/dl ABG Base Excess (-2.0-3.0) mmol/L ABG Hemoglobin (11.7-17.4) g/dL ABG Carboxyhemoglobin (0.5-1.5) % POC ABG HHb (Measured) (0-5) % ABG Methemoglobin (0.0-3.0) % ABG O2 Capacity (16-24) mL/dl Hgb O2 Saturation (95.0-98.0) % FiO2 % Sodium (132-148) mmol/L Potassium (3.6-5.0) mmol/L Chloride (98-107) mmol/L Carbon Dioxide (21-33) mmol/L Anion Gap (10-20) BUN (7-21) mg/dL Creatinine (0.8-1.5) mg/dl Est GFR ( Amer) Est GFR (Non-Af Amer) POC Glucose (mg/dL) 247 H 208 H (65-110) mg/dL Random Glucose (70-110) mg/dL Calcium (8.4-10.5) mg/dL Total Bilirubin (0.2-1.3) mg/dL AST (17-59) U/L ALT (7-56) U/L Alkaline Phosphatase (38-126) U/L Total Protein (5.8-8.3) g/dL Albumin (3.0-4.8) g/dL Globulin gm/dL Albumin/Globulin Ratio (1.1-1.8) 07/23/18 07/23/18 07/23/18 Range/Units 06:30 06:00 06:00 WBC 12.2 H D (4.5-11.0) 10^3/uL RBC 2.74 L (3.5-6.1) 10^6/uL Hgb 7.2 L (14.0-18.0) g/dL Hct 24.5 L (42.0-52.0) % MCV 89.4 D (80.0-105.0) fl MCH 26.3 (25.0-35.0) pg MCHC 29.4 L (31.0-37.0) g/dl RDW 17.4 H (11.5-14.5) % Plt Count 9 L* (120.0-450.0) 10^3/uL Manual Plt Count (120-450) K/mm3 Gran % 93.8 H (50.0-68.0) % Lymph % (Auto) 5.3 L (22.0-35.0) % [place] % (Auto) 0.9 L (1.0-6.0) % Eos % (Auto) 0.0 L (1.5-5.0) % Baso % (Auto) 0.0 (0.0-3.0) % Gran # 11.48 H (1.4-6.5) Lymph # (Auto) 0.7 L (1.2-3.4) [place] # (Auto) 0.1 (0.1-0.6) Eos # (Auto) 0.0 (0.0-0.7) Baso # (Auto) 0.00 (0.0-2.0) K/mm3 pCO2 29 L (35-45) mm/Hg pO2 117.0 H (80-100) mm/Hg HCO3 17.2 L (21-28) mmol/L ABG pH 7.38 (7.35-7.45) ABG Total CO2 18.1 L (22-28) mmol.L ABG O2 Saturation 99.3 H (95-98) % ABG O2 Content 16.5 (15-23) ML/dl ABG Base Excess -6.7 L (-2.0-3.0) mmol/L ABG Hemoglobin 12.0 (11.7-17.4) g/dL ABG Carboxyhemoglobin 1.8 H (0.5-1.5) % POC ABG HHb (Measured) 0.7 (0-5) % ABG Methemoglobin 0.9 (0.0-3.0) % ABG O2 Capacity 16.6 (16-24) mL/dl Hgb O2 Saturation 96.6 (95.0-98.0) % FiO2 40.0 % Sodium 156 H* (132-148) mmol/L Potassium 3.9 (3.6-5.0) mmol/L Chloride 131 H (98-107) mmol/L Carbon Dioxide 20 L (21-33) mmol/L Anion Gap 10 (10-20) BUN 137 H* (7-21) mg/dL Creatinine 2.1 H (0.8-1.5) mg/dl Est GFR ( Amer) 39 Est GFR (Non-Af Amer) 32 POC Glucose (mg/dL) (65-110) mg/dL Random Glucose 215 H (70-110) mg/dL Calcium 8.0 L (8.4-10.5) mg/dL Total Bilirubin 0.6 (0.2-1.3) mg/dL AST 35 (17-59) U/L ALT 66 H (7-56) U/L Alkaline Phosphatase 77 (38-126) U/L Total Protein 5.4 L (5.8-8.3) g/dL Albumin 2.4 L (3.0-4.8) g/dL Globulin 3.0 gm/dL Albumin/Globulin Ratio 0.8 L (1.1-1.8) 07/23/18 07/23/18 07/23/18 Range/Units 05:59 02:27 01:00 WBC (4.5-11.0) 10^3/uL RBC (3.5-6.1) 10^6/uL Hgb (14.0-18.0) g/dL Hct (42.0-52.0) % MCV (80.0-105.0) fl MCH (25.0-35.0) pg MCHC (31.0-37.0) g/dl RDW (11.5-14.5) % Plt Count (120.0-450.0) 10^3/uL Manual Plt Count (120-450) K/mm3 Gran % (50.0-68.0) % Lymph % (Auto) (22.0-35.0) % [place] % (Auto) (1.0-6.0) % Eos % (Auto) (1.5-5.0) % Baso % (Auto) (0.0-3.0) % Gran # (1.4-6.5) Lymph # (Auto) (1.2-3.4) [place] # (Auto) (0.1-0.6) Eos # (Auto) (0.0-0.7) Baso # (Auto) (0.0-2.0) K/mm3 pCO2 (35-45) mm/Hg pO2 (80-100) mm/Hg HCO3 (21-28) mmol/L ABG pH (7.35-7.45) ABG Total CO2 (22-28) mmol.L ABG O2 Saturation (95-98) % ABG O2 Content (15-23) ML/dl ABG Base Excess (-2.0-3.0) mmol/L ABG Hemoglobin (11.7-17.4) g/dL ABG Carboxyhemoglobin (0.5-1.5) % POC ABG HHb (Measured) (0-5) % ABG Methemoglobin (0.0-3.0) % ABG O2 Capacity (16-24) mL/dl Hgb O2 Saturation (95.0-98.0) % FiO2 % Sodium 157 H* (132-148) mmol/L Potassium 4.4 (3.6-5.0) mmol/L Chloride 132 H (98-107) mmol/L Carbon Dioxide 19 L (21-33) mmol/L Anion Gap 11 (10-20) BUN 143 H* (7-21) mg/dL Creatinine 2.0 H (0.8-1.5) mg/dl Est GFR ( Amer) 41 Est GFR (Non-Af Amer) 34 POC Glucose (mg/dL) 201 H 263 H (65-110) mg/dL Random Glucose 320 H* D (70-110) mg/dL Calcium 8.1 L (8.4-10.5) mg/dL Total Bilirubin (0.2-1.3) mg/dL AST (17-59) U/L ALT (7-56) U/L Alkaline Phosphatase (38-126) U/L Total Protein (5.8-8.3) g/dL Albumin (3.0-4.8) g/dL Globulin gm/dL Albumin/Globulin Ratio (1.1-1.8) 07/22/18 07/22/18 07/22/18 Range/Units 23:25 22:52 21:05 WBC (4.5-11.0) 10^3/uL RBC (3.5-6.1) 10^6/uL Hgb (14.0-18.0) g/dL Hct (42.0-52.0) % MCV (80.0-105.0) fl MCH (25.0-35.0) pg MCHC (31.0-37.0) g/dl RDW (11.5-14.5) % Plt Count (120.0-450.0) 10^3/uL Manual Plt Count (120-450) K/mm3 Gran % (50.0-68.0) % Lymph % (Auto) (22.0-35.0) % [place] % (Auto) (1.0-6.0) % Eos % (Auto) (1.5-5.0) % Baso % (Auto) (0.0-3.0) % Gran # (1.4-6.5) Lymph # (Auto) (1.2-3.4) [place] # (Auto) (0.1-0.6) Eos # (Auto) (0.0-0.7) Baso # (Auto) (0.0-2.0) K/mm3 pCO2 (35-45) mm/Hg pO2 (80-100) mm/Hg HCO3 (21-28) mmol/L ABG pH (7.35-7.45) ABG Total CO2 (22-28) mmol.L ABG O2 Saturation (95-98) % ABG O2 Content (15-23) ML/dl ABG Base Excess (-2.0-3.0) mmol/L ABG Hemoglobin (11.7-17.4) g/dL ABG Carboxyhemoglobin (0.5-1.5) % POC ABG HHb (Measured) (0-5) % ABG Methemoglobin (0.0-3.0) % ABG O2 Capacity (16-24) mL/dl Hgb O2 Saturation (95.0-98.0) % FiO2 % Sodium (132-148) mmol/L Potassium (3.6-5.0) mmol/L Chloride (98-107) mmol/L Carbon Dioxide (21-33) mmol/L Anion Gap (10-20) BUN (7-21) mg/dL Creatinine (0.8-1.5) mg/dl Est GFR ( Amer) Est GFR (Non-Af Amer) POC Glucose (mg/dL) 302 H 277 H 243 H (65-110) mg/dL Random Glucose (70-110) mg/dL Calcium (8.4-10.5) mg/dL Total Bilirubin (0.2-1.3) mg/dL AST (17-59) U/L ALT (7-56) U/L Alkaline Phosphatase (38-126) U/L Total Protein (5.8-8.3) g/dL Albumin (3.0-4.8) g/dL Globulin gm/dL Albumin/Globulin Ratio (1.1-1.8) 07/22/18 07/22/18 07/22/18 Range/Units 20:25 19:53 18:56 WBC (4.5-11.0) 10^3/uL RBC (3.5-6.1) 10^6/uL Hgb (14.0-18.0) g/dL Hct (42.0-52.0) % MCV (80.0-105.0) fl MCH (25.0-35.0) pg MCHC (31.0-37.0) g/dl RDW (11.5-14.5) % Plt Count (120.0-450.0) 10^3/uL Manual Plt Count (120-450) K/mm3 Gran % (50.0-68.0) % Lymph % (Auto) (22.0-35.0) % [place] % (Auto) (1.0-6.0) % Eos % (Auto) (1.5-5.0) % Baso % (Auto) (0.0-3.0) % Gran # (1.4-6.5) Lymph # (Auto) (1.2-3.4) [place] # (Auto) (0.1-0.6) Eos # (Auto) (0.0-0.7) Baso # (Auto) (0.0-2.0) K/mm3 pCO2 (35-45) mm/Hg pO2 (80-100) mm/Hg HCO3 (21-28) mmol/L ABG pH (7.35-7.45) ABG Total CO2 (22-28) mmol.L ABG O2 Saturation (95-98) % ABG O2 Content (15-23) ML/dl ABG Base Excess (-2.0-3.0) mmol/L ABG Hemoglobin (11.7-17.4) g/dL ABG Carboxyhemoglobin (0.5-1.5) % POC ABG HHb (Measured) (0-5) % ABG Methemoglobin (0.0-3.0) % ABG O2 Capacity (16-24) mL/dl Hgb O2 Saturation (95.0-98.0) % FiO2 % Sodium 157 H* (132-148) mmol/L Potassium 4.6 (3.6-5.0) mmol/L Chloride 130 H (98-107) mmol/L Carbon Dioxide 21 (21-33) mmol/L Anion Gap 10 (10-20) BUN 144 H* (7-21) mg/dL Creatinine 2.3 H (0.8-1.5) mg/dl Est GFR ( Amer) 35 Est GFR (Non-Af Amer) 29 POC Glucose (mg/dL) 271 H 173 H (65-110) mg/dL Random Glucose 192 H (70-110) mg/dL Calcium 8.5 (8.4-10.5) mg/dL Total Bilirubin (0.2-1.3) mg/dL AST (17-59) U/L ALT (7-56) U/L Alkaline Phosphatase (38-126) U/L Total Protein (5.8-8.3) g/dL Albumin (3.0-4.8) g/dL Globulin gm/dL Albumin/Globulin Ratio (1.1-1.8) 07/22/18 07/22/18 07/22/18 Range/Units 17:59 17:02 16:23 WBC (4.5-11.0) 10^3/uL RBC (3.5-6.1) 10^6/uL Hgb (14.0-18.0) g/dL Hct (42.0-52.0) % MCV (80.0-105.0) fl MCH (25.0-35.0) pg MCHC (31.0-37.0) g/dl RDW (11.5-14.5) % Plt Count (120.0-450.0) 10^3/uL Manual Plt Count (120-450) K/mm3 Gran % (50.0-68.0) % Lymph % (Auto) (22.0-35.0) % [place] % (Auto) (1.0-6.0) % Eos % (Auto) (1.5-5.0) % Baso % (Auto) (0.0-3.0) % Gran # (1.4-6.5) Lymph # (Auto) (1.2-3.4) [place] # (Auto) (0.1-0.6) Eos # (Auto) (0.0-0.7) Baso # (Auto) (0.0-2.0) K/mm3 pCO2 (35-45) mm/Hg pO2 (80-100) mm/Hg HCO3 (21-28) mmol/L ABG pH (7.35-7.45) ABG Total CO2 (22-28) mmol.L ABG O2 Saturation (95-98) % ABG O2 Content (15-23) ML/dl ABG Base Excess (-2.0-3.0) mmol/L ABG Hemoglobin (11.7-17.4) g/dL ABG Carboxyhemoglobin (0.5-1.5) % POC ABG HHb (Measured) (0-5) % ABG Methemoglobin (0.0-3.0) % ABG O2 Capacity (16-24) mL/dl Hgb O2 Saturation (95.0-98.0) % FiO2 % Sodium (132-148) mmol/L Potassium (3.6-5.0) mmol/L Chloride (98-107) mmol/L Carbon Dioxide (21-33) mmol/L Anion Gap (10-20) BUN (7-21) mg/dL Creatinine (0.8-1.5) mg/dl Est GFR ( Amer) Est GFR (Non-Af Amer) POC Glucose (mg/dL) 150 H 145 H 197 H (65-110) mg/dL Random Glucose (70-110) mg/dL Calcium (8.4-10.5) mg/dL Total Bilirubin (0.2-1.3) mg/dL AST (17-59) U/L ALT (7-56) U/L Alkaline Phosphatase (38-126) U/L Total Protein (5.8-8.3) g/dL Albumin (3.0-4.8) g/dL Globulin gm/dL Albumin/Globulin Ratio (1.1-1.8) 07/22/18 07/22/18 07/22/18 Range/Units 15:56 13:52 13:50 WBC (4.5-11.0) 10^3/uL RBC (3.5-6.1) 10^6/uL Hgb (14.0-18.0) g/dL Hct (42.0-52.0) % MCV (80.0-105.0) fl MCH (25.0-35.0) pg MCHC (31.0-37.0) g/dl RDW (11.5-14.5) % Plt Count (120.0-450.0) 10^3/uL Manual Plt Count (120-450) K/mm3 Gran % (50.0-68.0) % Lymph % (Auto) (22.0-35.0) % [place] % (Auto) (1.0-6.0) % Eos % (Auto) (1.5-5.0) % Baso % (Auto) (0.0-3.0) % Gran # (1.4-6.5) Lymph # (Auto) (1.2-3.4) [place] # (Auto) (0.1-0.6) Eos # (Auto) (0.0-0.7) Baso # (Auto) (0.0-2.0) K/mm3 pCO2 (35-45) mm/Hg pO2 (80-100) mm/Hg HCO3 (21-28) mmol/L ABG pH (7.35-7.45) ABG Total CO2 (22-28) mmol.L ABG O2 Saturation (95-98) % ABG O2 Content (15-23) ML/dl ABG Base Excess (-2.0-3.0) mmol/L ABG Hemoglobin (11.7-17.4) g/dL ABG Carboxyhemoglobin (0.5-1.5) % POC ABG HHb (Measured) (0-5) % ABG Methemoglobin (0.0-3.0) % ABG O2 Capacity (16-24) mL/dl Hgb O2 Saturation (95.0-98.0) % FiO2 % Sodium 157 H* (132-148) mmol/L Potassium 4.4 (3.6-5.0) mmol/L Chloride 128 H (98-107) mmol/L Carbon Dioxide 20 L (21-33) mmol/L Anion Gap 12 (10-20) BUN 146 H* (7-21) mg/dL Creatinine 2.4 H (0.8-1.5) mg/dl Est GFR ( Amer) 33 Est GFR (Non-Af Amer) 28 POC Glucose (mg/dL) 222 H 407 H* (65-110) mg/dL Random Glucose 315 H* D (70-110) mg/dL Calcium 8.6 (8.4-10.5) mg/dL Total Bilirubin 0.5 (0.2-1.3) mg/dL AST 39 (17-59) U/L ALT 68 H (7-56) U/L Alkaline Phosphatase 75 (38-126) U/L Total Protein 5.3 L (5.8-8.3) g/dL Albumin 2.4 L (3.0-4.8) g/dL Globulin 2.9 gm/dL Albumin/Globulin Ratio 0.8 L (1.1-1.8) 07/22/18 07/22/18 Range/Units 12:49 11:56 WBC (4.5-11.0) 10^3/uL RBC (3.5-6.1) 10^6/uL Hgb (14.0-18.0) g/dL Hct (42.0-52.0) % MCV (80.0-105.0) fl MCH (25.0-35.0) pg MCHC (31.0-37.0) g/dl RDW (11.5-14.5) % Plt Count (120.0-450.0) 10^3/uL Manual Plt Count (120-450) K/mm3 Gran % (50.0-68.0) % Lymph % (Auto) (22.0-35.0) % [place] % (Auto) (1.0-6.0) % Eos % (Auto) (1.5-5.0) % Baso % (Auto) (0.0-3.0) % Gran # (1.4-6.5) Lymph # (Auto) (1.2-3.4) [place] # (Auto) (0.1-0.6) Eos # (Auto) (0.0-0.7) Baso # (Auto) (0.0-2.0) K/mm3 pCO2 (35-45) mm/Hg pO2 (80-100) mm/Hg HCO3 (21-28) mmol/L ABG pH (7.35-7.45) ABG Total CO2 (22-28) mmol.L ABG O2 Saturation (95-98) % ABG O2 Content (15-23) ML/dl ABG Base Excess (-2.0-3.0) mmol/L ABG Hemoglobin (11.7-17.4) g/dL ABG Carboxyhemoglobin (0.5-1.5) % POC ABG HHb (Measured) (0-5) % ABG Methemoglobin (0.0-3.0) % ABG O2 Capacity (16-24) mL/dl Hgb O2 Saturation (95.0-98.0) % FiO2 % Sodium (132-148) mmol/L Potassium (3.6-5.0) mmol/L Chloride (98-107) mmol/L Carbon Dioxide (21-33) mmol/L Anion Gap (10-20) BUN (7-21) mg/dL Creatinine (0.8-1.5) mg/dl Est GFR ( Amer) Est GFR (Non-Af Amer) POC Glucose (mg/dL) 352 H 404 H* (65-110) mg/dL Random Glucose (70-110) mg/dL Calcium (8.4-10.5) mg/dL Total Bilirubin (0.2-1.3) mg/dL AST (17-59) U/L ALT (7-56) U/L Alkaline Phosphatase (38-126) U/L Total Protein (5.8-8.3) g/dL Albumin (3.0-4.8) g/dL Globulin gm/dL Albumin/Globulin Ratio (1.1-1.8) Laboratory Results - last 24 hr 07/22/18 07/22/18 07/22/18 11:56 12:49 13:50 WBC RBC Hgb Hct MCV MCH MCHC RDW Plt Count Manual Plt Count Gran % Lymph % (Auto) [place] % (Auto) Eos % (Auto) Baso % (Auto) Gran # Lymph # (Auto) [place] # (Auto) Eos # (Auto) Baso # (Auto) pCO2 pO2 HCO3 ABG pH ABG Total CO2 ABG O2 Saturation ABG O2 Content ABG Base Excess ABG Hemoglobin ABG Carboxyhemoglobin POC ABG HHb (Measured) ABG Methemoglobin ABG O2 Capacity Hgb O2 Saturation FiO2 Sodium 157 H* Potassium 4.4 Chloride 128 H Carbon Dioxide 20 L Anion Gap 12 BUN 146 H* Creatinine 2.4 H Est GFR ( Amer) 33 Est GFR (Non-Af Amer) 28 POC Glucose (mg/dL) 404 H* 352 H Random Glucose 315 H* D Calcium 8.6 Total Bilirubin 0.5 AST 39 ALT 68 H Alkaline Phosphatase 75 Total Protein 5.3 L Albumin 2.4 L Globulin 2.9 Albumin/Globulin Ratio 0.8 L 07/22/18 07/22/18 07/22/18 13:52 15:56 16:23 WBC RBC Hgb Hct MCV MCH MCHC RDW Plt Count Manual Plt Count Gran % Lymph % (Auto) [place] % (Auto) Eos % (Auto) Baso % (Auto) Gran # Lymph # (Auto) [place] # (Auto) Eos # (Auto) Baso # (Auto) pCO2 pO2 HCO3 ABG pH ABG Total CO2 ABG O2 Saturation ABG O2 Content ABG Base Excess ABG Hemoglobin ABG Carboxyhemoglobin POC ABG HHb (Measured) ABG Methemoglobin ABG O2 Capacity Hgb O2 Saturation FiO2 Sodium Potassium Chloride Carbon Dioxide Anion Gap BUN Creatinine Est GFR ( Amer) Est GFR (Non-Af Amer) POC Glucose (mg/dL) 407 H* 222 H 197 H Random Glucose Calcium Total Bilirubin AST ALT Alkaline Phosphatase Total Protein Albumin Globulin Albumin/Globulin Ratio 07/22/18 07/22/18 07/22/18 17:02 17:59 18:56 WBC RBC Hgb Hct MCV MCH MCHC RDW Plt Count Manual Plt Count Gran % Lymph % (Auto) [place] % (Auto) Eos % (Auto) Baso % (Auto) Gran # Lymph # (Auto) [place] # (Auto) Eos # (Auto) Baso # (Auto) pCO2 pO2 HCO3 ABG pH ABG Total CO2 ABG O2 Saturation ABG O2 Content ABG Base Excess ABG Hemoglobin ABG Carboxyhemoglobin POC ABG HHb (Measured) ABG Methemoglobin ABG O2 Capacity Hgb O2 Saturation FiO2 Sodium Potassium Chloride Carbon Dioxide Anion Gap BUN Creatinine Est GFR ( Amer) Est GFR (Non-Af Amer) POC Glucose (mg/dL) 145 H 150 H 173 H Random Glucose Calcium Total Bilirubin AST ALT Alkaline Phosphatase Total Protein Albumin Globulin Albumin/Globulin Ratio 07/22/18 07/22/18 07/22/18 19:53 20:25 21:05 WBC RBC Hgb Hct MCV MCH MCHC RDW Plt Count Manual Plt Count Gran % Lymph % (Auto) [place] % (Auto) Eos % (Auto) Baso % (Auto) Gran # Lymph # (Auto) [place] # (Auto) Eos # (Auto) Baso # (Auto) pCO2 pO2 HCO3 ABG pH ABG Total CO2 ABG O2 Saturation ABG O2 Content ABG Base Excess ABG Hemoglobin ABG Carboxyhemoglobin POC ABG HHb (Measured) ABG Methemoglobin ABG O2 Capacity Hgb O2 Saturation FiO2 Sodium 157 H* Potassium 4.6 Chloride 130 H Carbon Dioxide 21 Anion Gap 10 BUN 144 H* Creatinine 2.3 H Est GFR ( Amer) 35 Est GFR (Non-Af Amer) 29 POC Glucose (mg/dL) 271 H 243 H Random Glucose 192 H Calcium 8.5 Total Bilirubin AST ALT Alkaline Phosphatase Total Protein Albumin Globulin Albumin/Globulin Ratio 07/22/18 07/22/18 07/23/18 22:52 23:25 01:00 WBC RBC Hgb Hct MCV MCH MCHC RDW Plt Count Manual Plt Count Gran % Lymph % (Auto) [place] % (Auto) Eos % (Auto) Baso % (Auto) Gran # Lymph # (Auto) [place] # (Auto) Eos # (Auto) Baso # (Auto) pCO2 pO2 HCO3 ABG pH ABG Total CO2 ABG O2 Saturation ABG O2 Content ABG Base Excess ABG Hemoglobin ABG Carboxyhemoglobin POC ABG HHb (Measured) ABG Methemoglobin ABG O2 Capacity Hgb O2 Saturation FiO2 Sodium 157 H* Potassium 4.4 Chloride 132 H Carbon Dioxide 19 L Anion Gap 11 BUN 143 H* Creatinine 2.0 H Est GFR ( Amer) 41 Est GFR (Non-Af Amer) 34 POC Glucose (mg/dL) 277 H 302 H Random Glucose 320 H* D Calcium 8.1 L Total Bilirubin AST ALT Alkaline Phosphatase Total Protein Albumin Globulin Albumin/Globulin Ratio 07/23/18 07/23/18 07/23/18 02:27 05:59 06:00 WBC 12.2 H D RBC 2.74 L Hgb 7.2 L Hct 24.5 L MCV 89.4 D MCH 26.3 MCHC 29.4 L RDW 17.4 H Plt Count 9 L* Manual Plt Count Gran % 93.8 H Lymph % (Auto) 5.3 L [place] % (Auto) 0.9 L Eos % (Auto) 0.0 L Baso % (Auto) 0.0 Gran # 11.48 H Lymph # (Auto) 0.7 L [place] # (Auto) 0.1 Eos # (Auto) 0.0 Baso # (Auto) 0.00 pCO2 pO2 HCO3 ABG pH ABG Total CO2 ABG O2 Saturation ABG O2 Content ABG Base Excess ABG Hemoglobin ABG Carboxyhemoglobin POC ABG HHb (Measured) ABG Methemoglobin ABG O2 Capacity Hgb O2 Saturation FiO2 Sodium Potassium Chloride Carbon Dioxide Anion Gap BUN Creatinine Est GFR ( Amer) Est GFR (Non-Af Amer) POC Glucose (mg/dL) 263 H 201 H Random Glucose Calcium Total Bilirubin AST ALT Alkaline Phosphatase Total Protein Albumin Globulin Albumin/Globulin Ratio 07/23/18 07/23/18 07/23/18 06:00 06:30 07:14 WBC RBC Hgb Hct MCV MCH MCHC RDW Plt Count Manual Plt Count Gran % Lymph % (Auto) [place] % (Auto) Eos % (Auto) Baso % (Auto) Gran # Lymph # (Auto) [place] # (Auto) Eos # (Auto) Baso # (Auto) pCO2 29 L pO2 117.0 H HCO3 17.2 L ABG pH 7.38 ABG Total CO2 18.1 L ABG O2 Saturation 99.3 H ABG O2 Content 16.5 ABG Base Excess -6.7 L ABG Hemoglobin 12.0 ABG Carboxyhemoglobin 1.8 H POC ABG HHb (Measured) 0.7 ABG Methemoglobin 0.9 ABG O2 Capacity 16.6 Hgb O2 Saturation 96.6 FiO2 40.0 Sodium 156 H* Potassium 3.9 Chloride 131 H Carbon Dioxide 20 L Anion Gap 10 BUN 137 H* Creatinine 2.1 H Est GFR ( Amer) 39 Est GFR (Non-Af Amer) 32 POC Glucose (mg/dL) 208 H Random Glucose 215 H Calcium 8.0 L Total Bilirubin 0.6 AST 35 ALT 66 H Alkaline Phosphatase 77 Total Protein 5.4 L Albumin 2.4 L Globulin 3.0 Albumin/Globulin Ratio 0.8 L 07/23/18 07/23/18 08:10 11:16 WBC RBC Hgb Hct MCV MCH MCHC RDW Plt Count Manual Plt Count 14 L* Gran % Lymph % (Auto) [place] % (Auto) Eos % (Auto) Baso % (Auto) Gran # Lymph # (Auto) [place] # (Auto) Eos # (Auto) Baso # (Auto) pCO2 pO2 HCO3 ABG pH ABG Total CO2 ABG O2 Saturation ABG O2 Content ABG Base Excess ABG Hemoglobin ABG Carboxyhemoglobin POC ABG HHb (Measured) ABG Methemoglobin ABG O2 Capacity Hgb O2 Saturation FiO2 Sodium Potassium Chloride Carbon Dioxide Anion Gap BUN Creatinine Est GFR ( Amer) Est GFR (Non-Af Amer) POC Glucose (mg/dL) 247 H Random Glucose Calcium Total Bilirubin AST ALT Alkaline Phosphatase Total Protein Albumin Globulin Albumin/Globulin Ratio Radiology Impressions: Radiology Impressions Chest X-Ray 07/22/18 15:37 IMPRESSION: Status post PICC line placement via left upper extremity approach. The tip is in the SVC. New right lower lobe infiltrate/right pleural effusion. Stable position of endotracheal tube and nasogastric tube. Chest X-Ray 07/23/18 06:00 IMPRESSION: Resolution of prior medial basilar airspace disease with tubes and catheters unchanged in position as per above. Fingerstick Blood Sugar Results: 208 Critical Care Progress Note - Nutrition Nutrition: Nutrition Category Date Time Status NPO Diet [DIET] Diets 07/06/18 Breakfast Ordered Assessment/Plan - Assessment and Plan (Free Text) Assessment: 62 y/o male with PMHx of COPD, active smoker 1pk per day, HTN, DM, PVD, presents with ER with 2 day history of fever, chills, associated with cough that is non- productive. Patient was initially started on heparin drip given elevated troponin, and markedly diminished EF. Hep drip currently held secondary to thrombocytopenia. Initially paralyzed on Nimbex after overbreathing ventilator. Extubated last week, ARDS resolved and s/p merrem and doxycycline antibiotic therapy for pneumonia. Awaiting family choice of LTAC facility once medically clear. 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 Harvinder Mcdaniels - Poor motor function likely from critical illness polyneuropathy - Results of EEG 07/10/18: moderate nonspecific diffuse disturbance of cortical activity, nonspecific diffuse fernandez matter dysfunction, no seizures, not in status epilepticus - 07/13/18 MRI brain without contrast negative for acute abnormalitie, 07/10/18 CT head without contrast negative Pulmology S/p intubation on 07/22/18 -unable to protect airway -ABG is improved post intubation with pH of 7.31 and pCO2 of 37. Sedated on propofol CAP and Flu A positive - completed tamiflu and merrem/doxycycline treatment - CXR 07/22 shows new right sided infiltrate, today is day 2 merrem - Duonebs seema q6 and PRN q2 - Urine Lg and Strep negative - Procal is 0.16 on 07/19 from 0.6 on 07/14 - ID eval: Dr. Fernandes, Pulm consulted - Dr. Burr Cardiology NSTEMI -07/03 Troponins elevated 0.48, 0.67, 0.67 - Cardiology consulted - Dr. Saxena. Cardiac cath on hold due to persistent thrombocytopenia. Hold Lasix per cardio. - Dig level 07/20 is 0.9 WNL - Hold IVF d/t poor EF, Hold Heparin drip HFrEF - BNP 82182 on 07/03 - 07/03/18 echo report shows EF 14.2%, mildly dilated LV, systolic function severely impaired, akinetic septum, TR and pulm HTN -continue digoxin 0.125mg IV, cardizem 60mg TID for afib Heme Chronic Thrombocytopenia, ITP - Received previous transfusions as outpatient - PLT is 14 today, will give one unit platelets - total 6 unit PLT transfused. IV gammaglobulin 5 day course completed on 07/11/18 - Will transfuse if <20 or actively bleeding per Hem recs - Will hold off on DVT chemoprophylaxis at this time, may resume if platelets >50 per heme/onc - Hem consult placed- Dr. Estevez - Negative IVONE and ANCA studies, ESR 45, HIT antibody negative Endo Uncontrolled DM - glucose in the 200s. Insulin drip stopped, started on high sliding coverage - Hgb a1c 8.2, accuchecks ACHS - Diabetic education GI - OG tube in place, hold tube feedings for now due to uncontrolled sugars, electrolytes - swallow eval 07/17/18: Pt. poorly responsive, with hyper gag reflex. No response to oral stimulation or spoon/straw tip. - Shock liver resolved - Hep panel negative - 07/03/18 RUQ U/S shows hepatosplenomegaly - pepcid for PPX Nephro OG on HD - now off HD - Tolerated first HD on 07/07/18 - BUN/Cr uptrending today. Will start D5 water as electrolytes have remained abnormal for several days despite fluids - Strict Is and Os, oliveros in place - sodium is downtrending - K is 4.4 today from 6.5 yesterday - Nephro consult - recs appreciated. Per nephro, no hemodialysis at this time - Continue water flushes per Nephro recs in light of low EF. - F/u nephro recs to consider repeating urine electrolytes ID - Tmax of 101.5 overnight, WBC uptrending today - s/p treatment of flu and pna with tamiflu and merrem/doxy - day merrem for new right sided infliltrate on CXR - Ammonia level <9 - ID eval: Dr. Fernandes, monitor off antibiotic at this time - Repeat blood cx neg after 5 days, repeat UA negative, repeat sputum cx growing moderate amount of yeast. Dispo: Approved for LTAC, awaiting family choice of LTAC facility after medical clearance Patient seen and case discussed with attending, Dr. Pineda <Giovanny Pineda - Last Filed: 07/23/18 12:48> CCU Objective - Vital Signs / Intake & Output Vital Signs (Last 4 hours): Vital Signs Pulse BP Pulse Ox 07/23/18 10:00 79 107/53 L 100 07/23/18 09:30 80 125/64 07/23/18 09:00 78 125/64 100 Intake and Output (Last 8hrs): Intake & Output 07/22/18 07/23/18 07/23/18 22:59 06:59 14:59 Intake Total 2692 1295 Output Total 1700 1200 Balance 992 95 Weight 179 lb 9.6 oz Intake: IV 2 1295 0.5 1200 Right Hand 2078 propofol 60 Tube Feeding 600 Output: Urine 1700 1200 Urethral (Oliveros) 1700 1200 Other: # Bowel Movements 0 - Medications Active Medications: Active Medications Generic Name Dose Route Start Last Admin Trade Name Freq PRN Reason Stop Dose Admin Acetaminophen 650 mg 07/08/18 18:18 07/20/18 13:20 Tylenol 650mg/20.3ml Solution Ud PO 650 mg Q6H PRN Administration Fever 101F Albuterol/Ipratropium 3 ml 07/03/18 14:00 07/23/18 07:50 Duoneb 3 Mg/0.5 Mg (3 Ml) Ud IH 3 ml [id number] SEEMA Administration Albuterol/Ipratropium 3 ml 07/03/18 11:04 07/11/18 23:55 Duoneb 3 Mg/0.5 Mg (3 Ml) Ud IH 3 ml Q2H PRN Administration Shortness of Breath Digoxin 0.125 mg 07/13/18 14:00 07/22/18 14:05 Lanoxin IVP 0.125 mg 1400 SEEMA Administration Diltiazem HCl 60 mg 07/17/18 14:00 07/23/18 09:30 Cardizem PO 60 mg TID SEEMA Administration Famotidine 20 mg 07/22/18 10:00 07/23/18 09:29 Pepcid IVP 20 mg DAILY SEEMA Administration Dexamethasone 40 mg/ Sodium 60 mls @ 120 mls/hr 07/20/18 12:00 07/23/18 10:08 Chloride IV 120 mls/hr DAILY SEEMA Administration Propofol 1,000 mg in 100 mls @ 2.545 mls/hr 07/22/18 08:29 07/23/18 06:00 Diprivan IV 10 mcg/kg/min .Q24H PRN 5.089 mls/hr TITRATE PER MD ORDER Titration Protocol 5 MCG/KG/MIN Desmopressin Acetate 1 mcg/ 50.25 mls @ 100 mls/hr 07/22/18 18:00 07/23/18 10:08 Sodium Chloride IV 100 mls/hr BID SEEMA Administration Meropenem/Sodium Chloride 500 mg in 50 mls @ 100 mls/hr 07/22/18 18:15 07/23/18 09:31 Merrem Iv 500 Mg/Ns 50 Ml IVPB 07/29/18 18:16 100 mls/hr Q12 SEEMA Administration Protocol Dextrose 1,000 mls @ 100 mls/hr 07/23/18 12:00 07/23/18 12:04 Dextrose 5% In Water 1000 Ml IV 100 mls/hr .Q10H SEEMA Administration Insulin Detemir 30 unit 07/17/18 10:39 07/22/18 06:56 Levemir SC 30 units HS SEEMA Administration Insulin Human Regular 0 units 07/23/18 12:00 07/23/18 12:06 Humulin R High SC Not Given Q4 SEEMA Protocol Non-Formulary Medication 75 mg 07/21/18 16:34 07/23/18 09:32 Eltrombopag Olamine [Promacta] PO 75 mg DAILY SEEMA Administration Vitamin A 1 applic 07/13/18 16:53 Vitamin A&D TP Q8 PRN Dry mouth - Patient Studies Lab Studies: Microbiology Studies 07/19/18 10:30 Blood Culture - Preliminary Blood NO GROWTH AFTER 4 DAYS 07/19/18 10:55 Blood Culture - Preliminary Blood NO GROWTH AFTER 4 DAYS Lab Studies 07/23/18 07/23/18 07/23/18 Range/Units 11:50 11:16 11:10 WBC (4.5-11.0) 10^3/uL RBC (3.5-6.1) 10^6/uL Hgb (14.0-18.0) g/dL Hct (42.0-52.0) % MCV (80.0-105.0) fl MCH (25.0-35.0) pg MCHC (31.0-37.0) g/dl RDW (11.5-14.5) % Plt Count (120.0-450.0) 10^3/uL Manual Plt Count (120-450) K/mm3 Gran % (50.0-68.0) % Lymph % (Auto) (22.0-35.0) % [place] % (Auto) (1.0-6.0) % Eos % (Auto) (1.5-5.0) % Baso % (Auto) (0.0-3.0) % Gran # (1.4-6.5) Lymph # (Auto) (1.2-3.4) [place] # (Auto) (0.1-0.6) Eos # (Auto) (0.0-0.7) Baso # (Auto) (0.0-2.0) K/mm3 pCO2 (35-45) mm/Hg pO2 (80-100) mm/Hg HCO3 (21-28) mmol/L ABG pH (7.35-7.45) ABG Total CO2 (22-28) mmol.L ABG O2 Saturation (95-98) % ABG O2 Content (15-23) ML/dl ABG Base Excess (-2.0-3.0) mmol/L ABG Hemoglobin (11.7-17.4) g/dL ABG Carboxyhemoglobin (0.5-1.5) % POC ABG HHb (Measured) (0-5) % ABG Methemoglobin (0.0-3.0) % ABG O2 Capacity (16-24) mL/dl Hgb O2 Saturation (95.0-98.0) % FiO2 % Sodium 148 (132-148) mmol/L Potassium 3.5 L (3.6-5.0) mmol/L Chloride 124 H (98-107) mmol/L Carbon Dioxide 19 L (21-33) mmol/L Anion Gap 7 L (10-20) BUN > 120 H* (7-21) mg/dL Creatinine 1.8 H (0.8-1.5) mg/dl Est GFR ( Amer) 46 Est GFR (Non-Af Amer) 38 POC Glucose (mg/dL) 247 H (65-110) mg/dL Random Glucose 225 H (70-110) mg/dL Calcium 7.0 L (8.4-10.5) mg/dL Total Bilirubin (0.2-1.3) mg/dL AST (17-59) U/L ALT (7-56) U/L Alkaline Phosphatase (38-126) U/L Total Protein (5.8-8.3) g/dL Albumin (3.0-4.8) g/dL Globulin gm/dL Albumin/Globulin Ratio (1.1-1.8) Blood Type O POSITIVE Antibody Screen Negative BBK History Checked Patient has bt 07/23/18 07/23/18 07/23/18 Range/Units 08:10 07:14 06:30 WBC (4.5-11.0) 10^3/uL RBC (3.5-6.1) 10^6/uL Hgb (14.0-18.0) g/dL Hct (42.0-52.0) % MCV (80.0-105.0) fl MCH (25.0-35.0) pg MCHC (31.0-37.0) g/dl RDW (11.5-14.5) % Plt Count (120.0-450.0) 10^3/uL Manual Plt Count 14 L* (120-450) K/mm3 Gran % (50.0-68.0) % Lymph % (Auto) (22.0-35.0) % [place] % (Auto) (1.0-6.0) % Eos % (Auto) (1.5-5.0) % Baso % (Auto) (0.0-3.0) % Gran # (1.4-6.5) Lymph # (Auto) (1.2-3.4) [place] # (Auto) (0.1-0.6) Eos # (Auto) (0.0-0.7) Baso # (Auto) (0.0-2.0) K/mm3 pCO2 29 L (35-45) mm/Hg pO2 117.0 H (80-100) mm/Hg HCO3 17.2 L (21-28) mmol/L ABG pH 7.38 (7.35-7.45) ABG Total CO2 18.1 L (22-28) mmol.L ABG O2 Saturation 99.3 H (95-98) % ABG O2 Content 16.5 (15-23) ML/dl ABG Base Excess -6.7 L (-2.0-3.0) mmol/L ABG Hemoglobin 12.0 (11.7-17.4) g/dL ABG Carboxyhemoglobin 1.8 H (0.5-1.5) % POC ABG HHb (Measured) 0.7 (0-5) % ABG Methemoglobin 0.9 (0.0-3.0) % ABG O2 Capacity 16.6 (16-24) mL/dl Hgb O2 Saturation 96.6 (95.0-98.0) % FiO2 40.0 % Sodium (132-148) mmol/L Potassium (3.6-5.0) mmol/L Chloride (98-107) mmol/L Carbon Dioxide (21-33) mmol/L Anion Gap (10-20) BUN (7-21) mg/dL Creatinine (0.8-1.5) mg/dl Est GFR ( Amer) Est GFR (Non-Af Amer) POC Glucose (mg/dL) 208 H (65-110) mg/dL Random Glucose (70-110) mg/dL Calcium (8.4-10.5) mg/dL Total Bilirubin (0.2-1.3) mg/dL AST (17-59) U/L ALT (7-56) U/L Alkaline Phosphatase (38-126) U/L Total Protein (5.8-8.3) g/dL Albumin (3.0-4.8) g/dL Globulin gm/dL Albumin/Globulin Ratio (1.1-1.8) Blood Type Antibody Screen BBK History Checked 07/23/18 07/23/18 07/23/18 Range/Units 06:00 06:00 05:59 WBC 12.2 H D (4.5-11.0) 10^3/uL RBC 2.74 L (3.5-6.1) 10^6/uL Hgb 7.2 L (14.0-18.0) g/dL Hct 24.5 L (42.0-52.0) % MCV 89.4 D (80.0-105.0) fl MCH 26.3 (25.0-35.0) pg MCHC 29.4 L (31.0-37.0) g/dl RDW 17.4 H (11.5-14.5) % Plt Count 9 L* (120.0-450.0) 10^3/uL Manual Plt Count (120-450) K/mm3 Gran % 93.8 H (50.0-68.0) % Lymph % (Auto) 5.3 L (22.0-35.0) % [place] % (Auto) 0.9 L (1.0-6.0) % Eos % (Auto) 0.0 L (1.5-5.0) % Baso % (Auto) 0.0 (0.0-3.0) % Gran # 11.48 H (1.4-6.5) Lymph # (Auto) 0.7 L (1.2-3.4) [place] # (Auto) 0.1 (0.1-0.6) Eos # (Auto) 0.0 (0.0-0.7) Baso # (Auto) 0.00 (0.0-2.0) K/mm3 pCO2 (35-45) mm/Hg pO2 (80-100) mm/Hg HCO3 (21-28) mmol/L ABG pH (7.35-7.45) ABG Total CO2 (22-28) mmol.L ABG O2 Saturation (95-98) % ABG O2 Content (15-23) ML/dl ABG Base Excess (-2.0-3.0) mmol/L ABG Hemoglobin (11.7-17.4) g/dL ABG Carboxyhemoglobin (0.5-1.5) % POC ABG HHb (Measured) (0-5) % ABG Methemoglobin (0.0-3.0) % ABG O2 Capacity (16-24) mL/dl Hgb O2 Saturation (95.0-98.0) % FiO2 % Sodium 156 H* (132-148) mmol/L Potassium 3.9 (3.6-5.0) mmol/L Chloride 131 H (98-107) mmol/L Carbon Dioxide 20 L (21-33) mmol/L Anion Gap 10 (10-20) BUN 137 H* (7-21) mg/dL Creatinine 2.1 H (0.8-1.5) mg/dl Est GFR ( Amer) 39 Est GFR (Non-Af Amer) 32 POC Glucose (mg/dL) 201 H (65-110) mg/dL Random Glucose 215 H (70-110) mg/dL Calcium 8.0 L (8.4-10.5) mg/dL Total Bilirubin 0.6 (0.2-1.3) mg/dL AST 35 (17-59) U/L ALT 66 H (7-56) U/L Alkaline Phosphatase 77 (38-126) U/L Total Protein 5.4 L (5.8-8.3) g/dL Albumin 2.4 L (3.0-4.8) g/dL Globulin 3.0 gm/dL Albumin/Globulin Ratio 0.8 L (1.1-1.8) Blood Type Antibody Screen BBK History Checked 07/23/18 07/23/18 07/22/18 Range/Units 02:27 01:00 23:25 WBC (4.5-11.0) 10^3/uL RBC (3.5-6.1) 10^6/uL Hgb (14.0-18.0) g/dL Hct (42.0-52.0) % MCV (80.0-105.0) fl MCH (25.0-35.0) pg MCHC (31.0-37.0) g/dl RDW (11.5-14.5) % Plt Count (120.0-450.0) 10^3/uL Manual Plt Count (120-450) K/mm3 Gran % (50.0-68.0) % Lymph % (Auto) (22.0-35.0) % [place] % (Auto) (1.0-6.0) % Eos % (Auto) (1.5-5.0) % Baso % (Auto) (0.0-3.0) % Gran # (1.4-6.5) Lymph # (Auto) (1.2-3.4) [place] # (Auto) (0.1-0.6) Eos # (Auto) (0.0-0.7) Baso # (Auto) (0.0-2.0) K/mm3 pCO2 (35-45) mm/Hg pO2 (80-100) mm/Hg HCO3 (21-28) mmol/L ABG pH (7.35-7.45) ABG Total CO2 (22-28) mmol.L ABG O2 Saturation (95-98) % ABG O2 Content (15-23) ML/dl ABG Base Excess (-2.0-3.0) mmol/L ABG Hemoglobin (11.7-17.4) g/dL ABG Carboxyhemoglobin (0.5-1.5) % POC ABG HHb (Measured) (0-5) % ABG Methemoglobin (0.0-3.0) % ABG O2 Capacity (16-24) mL/dl Hgb O2 Saturation (95.0-98.0) % FiO2 % Sodium 157 H* (132-148) mmol/L Potassium 4.4 (3.6-5.0) mmol/L Chloride 132 H (98-107) mmol/L Carbon Dioxide 19 L (21-33) mmol/L Anion Gap 11 (10-20) BUN 143 H* (7-21) mg/dL Creatinine 2.0 H (0.8-1.5) mg/dl Est GFR ( Amer) 41 Est GFR (Non-Af Amer) 34 POC Glucose (mg/dL) 263 H 302 H (65-110) mg/dL Random Glucose 320 H* D (70-110) mg/dL Calcium 8.1 L (8.4-10.5) mg/dL Total Bilirubin (0.2-1.3) mg/dL AST (17-59) U/L ALT (7-56) U/L Alkaline Phosphatase (38-126) U/L Total Protein (5.8-8.3) g/dL Albumin (3.0-4.8) g/dL Globulin gm/dL Albumin/Globulin Ratio (1.1-1.8) Blood Type Antibody Screen BBK History Checked 07/22/18 07/22/18 07/22/18 Range/Units 22:52 21:05 20:25 WBC (4.5-11.0) 10^3/uL RBC (3.5-6.1) 10^6/uL Hgb (14.0-18.0) g/dL Hct (42.0-52.0) % MCV (80.0-105.0) fl MCH (25.0-35.0) pg MCHC (31.0-37.0) g/dl RDW (11.5-14.5) % Plt Count (120.0-450.0) 10^3/uL Manual Plt Count (120-450) K/mm3 Gran % (50.0-68.0) % Lymph % (Auto) (22.0-35.0) % [place] % (Auto) (1.0-6.0) % Eos % (Auto) (1.5-5.0) % Baso % (Auto) (0.0-3.0) % Gran # (1.4-6.5) Lymph # (Auto) (1.2-3.4) [place] # (Auto) (0.1-0.6) Eos # (Auto) (0.0-0.7) Baso # (Auto) (0.0-2.0) K/mm3 pCO2 (35-45) mm/Hg pO2 (80-100) mm/Hg HCO3 (21-28) mmol/L ABG pH (7.35-7.45) ABG Total CO2 (22-28) mmol.L ABG O2 Saturation (95-98) % ABG O2 Content (15-23) ML/dl ABG Base Excess (-2.0-3.0) mmol/L ABG Hemoglobin (11.7-17.4) g/dL ABG Carboxyhemoglobin (0.5-1.5) % POC ABG HHb (Measured) (0-5) % ABG Methemoglobin (0.0-3.0) % ABG O2 Capacity (16-24) mL/dl Hgb O2 Saturation (95.0-98.0) % FiO2 % Sodium (132-148) mmol/L Potassium (3.6-5.0) mmol/L Chloride (98-107) mmol/L Carbon Dioxide (21-33) mmol/L Anion Gap (10-20) BUN (7-21) mg/dL Creatinine (0.8-1.5) mg/dl Est GFR ( Amer) Est GFR (Non-Af Amer) POC Glucose (mg/dL) 277 H 243 H 271 H (65-110) mg/dL Random Glucose (70-110) mg/dL Calcium (8.4-10.5) mg/dL Total Bilirubin (0.2-1.3) mg/dL AST (17-59) U/L ALT (7-56) U/L Alkaline Phosphatase (38-126) U/L Total Protein (5.8-8.3) g/dL Albumin (3.0-4.8) g/dL Globulin gm/dL Albumin/Globulin Ratio (1.1-1.8) Blood Type Antibody Screen BBK History Checked 07/22/18 07/22/18 07/22/18 Range/Units 19:53 18:56 17:59 WBC (4.5-11.0) 10^3/uL RBC (3.5-6.1) 10^6/uL Hgb (14.0-18.0) g/dL Hct (42.0-52.0) % MCV (80.0-105.0) fl MCH (25.0-35.0) pg MCHC (31.0-37.0) g/dl RDW (11.5-14.5) % Plt Count (120.0-450.0) 10^3/uL Manual Plt Count (120-450) K/mm3 Gran % (50.0-68.0) % Lymph % (Auto) (22.0-35.0) % [place] % (Auto) (1.0-6.0) % Eos % (Auto) (1.5-5.0) % Baso % (Auto) (0.0-3.0) % Gran # (1.4-6.5) Lymph # (Auto) (1.2-3.4) [place] # (Auto) (0.1-0.6) Eos # (Auto) (0.0-0.7) Baso # (Auto) (0.0-2.0) K/mm3 pCO2 (35-45) mm/Hg pO2 (80-100) mm/Hg HCO3 (21-28) mmol/L ABG pH (7.35-7.45) ABG Total CO2 (22-28) mmol.L ABG O2 Saturation (95-98) % ABG O2 Content (15-23) ML/dl ABG Base Excess (-2.0-3.0) mmol/L ABG Hemoglobin (11.7-17.4) g/dL ABG Carboxyhemoglobin (0.5-1.5) % POC ABG HHb (Measured) (0-5) % ABG Methemoglobin (0.0-3.0) % ABG O2 Capacity (16-24) mL/dl Hgb O2 Saturation (95.0-98.0) % FiO2 % Sodium 157 H* (132-148) mmol/L Potassium 4.6 (3.6-5.0) mmol/L Chloride 130 H (98-107) mmol/L Carbon Dioxide 21 (21-33) mmol/L Anion Gap 10 (10-20) BUN 144 H* (7-21) mg/dL Creatinine 2.3 H (0.8-1.5) mg/dl Est GFR ( Amer) 35 Est GFR (Non-Af Amer) 29 POC Glucose (mg/dL) 173 H 150 H (65-110) mg/dL Random Glucose 192 H (70-110) mg/dL Calcium 8.5 (8.4-10.5) mg/dL Total Bilirubin (0.2-1.3) mg/dL AST (17-59) U/L ALT (7-56) U/L Alkaline Phosphatase (38-126) U/L Total Protein (5.8-8.3) g/dL Albumin (3.0-4.8) g/dL Globulin gm/dL Albumin/Globulin Ratio (1.1-1.8) Blood Type Antibody Screen BBK History Checked 07/22/18 07/22/18 07/22/18 Range/Units 17:02 16:23 15:56 WBC (4.5-11.0) 10^3/uL RBC (3.5-6.1) 10^6/uL Hgb (14.0-18.0) g/dL Hct (42.0-52.0) % MCV (80.0-105.0) fl MCH (25.0-35.0) pg MCHC (31.0-37.0) g/dl RDW (11.5-14.5) % Plt Count (120.0-450.0) 10^3/uL Manual Plt Count (120-450) K/mm3 Gran % (50.0-68.0) % Lymph % (Auto) (22.0-35.0) % [place] % (Auto) (1.0-6.0) % Eos % (Auto) (1.5-5.0) % Baso % (Auto) (0.0-3.0) % Gran # (1.4-6.5) Lymph # (Auto) (1.2-3.4) [place] # (Auto) (0.1-0.6) Eos # (Auto) (0.0-0.7) Baso # (Auto) (0.0-2.0) K/mm3 pCO2 (35-45) mm/Hg pO2 (80-100) mm/Hg HCO3 (21-28) mmol/L ABG pH (7.35-7.45) ABG Total CO2 (22-28) mmol.L ABG O2 Saturation (95-98) % ABG O2 Content (15-23) ML/dl ABG Base Excess (-2.0-3.0) mmol/L ABG Hemoglobin (11.7-17.4) g/dL ABG Carboxyhemoglobin (0.5-1.5) % POC ABG HHb (Measured) (0-5) % ABG Methemoglobin (0.0-3.0) % ABG O2 Capacity (16-24) mL/dl Hgb O2 Saturation (95.0-98.0) % FiO2 % Sodium (132-148) mmol/L Potassium (3.6-5.0) mmol/L Chloride (98-107) mmol/L Carbon Dioxide (21-33) mmol/L Anion Gap (10-20) BUN (7-21) mg/dL Creatinine (0.8-1.5) mg/dl Est GFR ( Amer) Est GFR (Non-Af Amer) POC Glucose (mg/dL) 145 H 197 H 222 H (65-110) mg/dL Random Glucose (70-110) mg/dL Calcium (8.4-10.5) mg/dL Total Bilirubin (0.2-1.3) mg/dL AST (17-59) U/L ALT (7-56) U/L Alkaline Phosphatase (38-126) U/L Total Protein (5.8-8.3) g/dL Albumin (3.0-4.8) g/dL Globulin gm/dL Albumin/Globulin Ratio (1.1-1.8) Blood Type Antibody Screen BBK History Checked 07/22/18 07/22/18 07/22/18 Range/Units 13:52 13:50 12:49 WBC (4.5-11.0) 10^3/uL RBC (3.5-6.1) 10^6/uL Hgb (14.0-18.0) g/dL Hct (42.0-52.0) % MCV (80.0-105.0) fl MCH (25.0-35.0) pg MCHC (31.0-37.0) g/dl RDW (11.5-14.5) % Plt Count (120.0-450.0) 10^3/uL Manual Plt Count (120-450) K/mm3 Gran % (50.0-68.0) % Lymph % (Auto) (22.0-35.0) % [place] % (Auto) (1.0-6.0) % Eos % (Auto) (1.5-5.0) % Baso % (Auto) (0.0-3.0) % Gran # (1.4-6.5) Lymph # (Auto) (1.2-3.4) [place] # (Auto) (0.1-0.6) Eos # (Auto) (0.0-0.7) Baso # (Auto) (0.0-2.0) K/mm3 pCO2 (35-45) mm/Hg pO2 (80-100) mm/Hg HCO3 (21-28) mmol/L ABG pH (7.35-7.45) ABG Total CO2 (22-28) mmol.L ABG O2 Saturation (95-98) % ABG O2 Content (15-23) ML/dl ABG Base Excess (-2.0-3.0) mmol/L ABG Hemoglobin (11.7-17.4) g/dL ABG Carboxyhemoglobin (0.5-1.5) % POC ABG HHb (Measured) (0-5) % ABG Methemoglobin (0.0-3.0) % ABG O2 Capacity (16-24) mL/dl Hgb O2 Saturation (95.0-98.0) % FiO2 % Sodium 157 H* (132-148) mmol/L Potassium 4.4 (3.6-5.0) mmol/L Chloride 128 H (98-107) mmol/L Carbon Dioxide 20 L (21-33) mmol/L Anion Gap 12 (10-20) BUN 146 H* (7-21) mg/dL Creatinine 2.4 H (0.8-1.5) mg/dl Est GFR ( Amer) 33 Est GFR (Non-Af Amer) 28 POC Glucose (mg/dL) 407 H* 352 H (65-110) mg/dL Random Glucose 315 H* D (70-110) mg/dL Calcium 8.6 (8.4-10.5) mg/dL Total Bilirubin 0.5 (0.2-1.3) mg/dL AST 39 (17-59) U/L ALT 68 H (7-56) U/L Alkaline Phosphatase 75 (38-126) U/L Total Protein 5.3 L (5.8-8.3) g/dL Albumin 2.4 L (3.0-4.8) g/dL Globulin 2.9 gm/dL Albumin/Globulin Ratio 0.8 L (1.1-1.8) Blood Type Antibody Screen BBK History Checked 07/22/18 Range/Units 11:56 WBC (4.5-11.0) 10^3/uL RBC (3.5-6.1) 10^6/uL Hgb (14.0-18.0) g/dL Hct (42.0-52.0) % MCV (80.0-105.0) fl MCH (25.0-35.0) pg MCHC (31.0-37.0) g/dl RDW (11.5-14.5) % Plt Count (120.0-450.0) 10^3/uL Manual Plt Count (120-450) K/mm3 Gran % (50.0-68.0) % Lymph % (Auto) (22.0-35.0) % [place] % (Auto) (1.0-6.0) % Eos % (Auto) (1.5-5.0) % Baso % (Auto) (0.0-3.0) % Gran # (1.4-6.5) Lymph # (Auto) (1.2-3.4) [place] # (Auto) (0.1-0.6) Eos # (Auto) (0.0-0.7) Baso # (Auto) (0.0-2.0) K/mm3 pCO2 (35-45) mm/Hg pO2 (80-100) mm/Hg HCO3 (21-28) mmol/L ABG pH (7.35-7.45) ABG Total CO2 (22-28) mmol.L ABG O2 Saturation (95-98) % ABG O2 Content (15-23) ML/dl ABG Base Excess (-2.0-3.0) mmol/L ABG Hemoglobin (11.7-17.4) g/dL ABG Carboxyhemoglobin (0.5-1.5) % POC ABG HHb (Measured) (0-5) % ABG Methemoglobin (0.0-3.0) % ABG O2 Capacity (16-24) mL/dl Hgb O2 Saturation (95.0-98.0) % FiO2 % Sodium (132-148) mmol/L Potassium (3.6-5.0) mmol/L Chloride (98-107) mmol/L Carbon Dioxide (21-33) mmol/L Anion Gap (10-20) BUN (7-21) mg/dL Creatinine (0.8-1.5) mg/dl Est GFR ( Amer) Est GFR (Non-Af Amer) POC Glucose (mg/dL) 404 H* (65-110) mg/dL Random Glucose (70-110) mg/dL Calcium (8.4-10.5) mg/dL Total Bilirubin (0.2-1.3) mg/dL AST (17-59) U/L ALT (7-56) U/L Alkaline Phosphatase (38-126) U/L Total Protein (5.8-8.3) g/dL Albumin (3.0-4.8) g/dL Globulin gm/dL Albumin/Globulin Ratio (1.1-1.8) Blood Type Antibody Screen BBK History Checked Laboratory Results - last 24 hr 07/22/18 07/22/18 07/22/18 11:56 12:49 13:50 WBC RBC Hgb Hct MCV MCH MCHC RDW Plt Count Manual Plt Count Gran % Lymph % (Auto) [place] % (Auto) Eos % (Auto) Baso % (Auto) Gran # Lymph # (Auto) [place] # (Auto) Eos # (Auto) Baso # (Auto) pCO2 pO2 HCO3 ABG pH ABG Total CO2 ABG O2 Saturation ABG O2 Content ABG Base Excess ABG Hemoglobin ABG Carboxyhemoglobin POC ABG HHb (Measured) ABG Methemoglobin ABG O2 Capacity Hgb O2 Saturation FiO2 Sodium 157 H* Potassium 4.4 Chloride 128 H Carbon Dioxide 20 L Anion Gap 12 BUN 146 H* Creatinine 2.4 H Est GFR ( Amer) 33 Est GFR (Non-Af Amer) 28 POC Glucose (mg/dL) 404 H* 352 H Random Glucose 315 H* D Calcium 8.6 Total Bilirubin 0.5 AST 39 ALT 68 H Alkaline Phosphatase 75 Total Protein 5.3 L Albumin 2.4 L Globulin 2.9 Albumin/Globulin Ratio 0.8 L Blood Type Antibody Screen BBK History Checked 07/22/18 07/22/18 07/22/18 13:52 15:56 16:23 WBC RBC Hgb Hct MCV MCH MCHC RDW Plt Count Manual Plt Count Gran % Lymph % (Auto) [place] % (Auto) Eos % (Auto) Baso % (Auto) Gran # Lymph # (Auto) [place] # (Auto) Eos # (Auto) Baso # (Auto) pCO2 pO2 HCO3 ABG pH ABG Total CO2 ABG O2 Saturation ABG O2 Content ABG Base Excess ABG Hemoglobin ABG Carboxyhemoglobin POC ABG HHb (Measured) ABG Methemoglobin ABG O2 Capacity Hgb O2 Saturation FiO2 Sodium Potassium Chloride Carbon Dioxide Anion Gap BUN Creatinine Est GFR ( Amer) Est GFR (Non-Af Amer) POC Glucose (mg/dL) 407 H* 222 H 197 H Random Glucose Calcium Total Bilirubin AST ALT Alkaline Phosphatase Total Protein Albumin Globulin Albumin/Globulin Ratio Blood Type Antibody Screen BBK History Checked 07/22/18 07/22/18 07/22/18 17:02 17:59 18:56 WBC RBC Hgb Hct MCV MCH MCHC RDW Plt Count Manual Plt Count Gran % Lymph % (Auto) [place] % (Auto) Eos % (Auto) Baso % (Auto) Gran # Lymph # (Auto) [place] # (Auto) Eos # (Auto) Baso # (Auto) pCO2 pO2 HCO3 ABG pH ABG Total CO2 ABG O2 Saturation ABG O2 Content ABG Base Excess ABG Hemoglobin ABG Carboxyhemoglobin POC ABG HHb (Measured) ABG Methemoglobin ABG O2 Capacity Hgb O2 Saturation FiO2 Sodium Potassium Chloride Carbon Dioxide Anion Gap BUN Creatinine Est GFR ( Amer) Est GFR (Non-Af Amer) POC Glucose (mg/dL) 145 H 150 H 173 H Random Glucose Calcium Total Bilirubin AST ALT Alkaline Phosphatase Total Protein Albumin Globulin Albumin/Globulin Ratio Blood Type Antibody Screen BBK History Checked 07/22/18 07/22/18 07/22/18 19:53 20:25 21:05 WBC RBC Hgb Hct MCV MCH MCHC RDW Plt Count Manual Plt Count Gran % Lymph % (Auto) [place] % (Auto) Eos % (Auto) Baso % (Auto) Gran # Lymph # (Auto) [place] # (Auto) Eos # (Auto) Baso # (Auto) pCO2 pO2 HCO3 ABG pH ABG Total CO2 ABG O2 Saturation ABG O2 Content ABG Base Excess ABG Hemoglobin ABG Carboxyhemoglobin POC ABG HHb (Measured) ABG Methemoglobin ABG O2 Capacity Hgb O2 Saturation FiO2 Sodium 157 H* Potassium 4.6 Chloride 130 H Carbon Dioxide 21 Anion Gap 10 BUN 144 H* Creatinine 2.3 H Est GFR ( Amer) 35 Est GFR (Non-Af Amer) 29 POC Glucose (mg/dL) 271 H 243 H Random Glucose 192 H Calcium 8.5 Total Bilirubin AST ALT Alkaline Phosphatase Total Protein Albumin Globulin Albumin/Globulin Ratio Blood Type Antibody Screen BBK History Checked 07/22/18 07/22/18 07/23/18 22:52 23:25 01:00 WBC RBC Hgb Hct MCV MCH MCHC RDW Plt Count Manual Plt Count Gran % Lymph % (Auto) [place] % (Auto) Eos % (Auto) Baso % (Auto) Gran # Lymph # (Auto) [place] # (Auto) Eos # (Auto) Baso # (Auto) pCO2 pO2 HCO3 ABG pH ABG Total CO2 ABG O2 Saturation ABG O2 Content ABG Base Excess ABG Hemoglobin ABG Carboxyhemoglobin POC ABG HHb (Measured) ABG Methemoglobin ABG O2 Capacity Hgb O2 Saturation FiO2 Sodium 157 H* Potassium 4.4 Chloride 132 H Carbon Dioxide 19 L Anion Gap 11 BUN 143 H* Creatinine 2.0 H Est GFR ( Amer) 41 Est GFR (Non-Af Amer) 34 POC Glucose (mg/dL) 277 H 302 H Random Glucose 320 H* D Calcium 8.1 L Total Bilirubin AST ALT Alkaline Phosphatase Total Protein Albumin Globulin Albumin/Globulin Ratio Blood Type Antibody Screen BBK History Checked 07/23/18 07/23/18 07/23/18 02:27 05:59 06:00 WBC 12.2 H D RBC 2.74 L Hgb 7.2 L Hct 24.5 L MCV 89.4 D MCH 26.3 MCHC 29.4 L RDW 17.4 H Plt Count 9 L* Manual Plt Count Gran % 93.8 H Lymph % (Auto) 5.3 L [place] % (Auto) 0.9 L Eos % (Auto) 0.0 L Baso % (Auto) 0.0 Gran # 11.48 H Lymph # (Auto) 0.7 L [place] # (Auto) 0.1 Eos # (Auto) 0.0 Baso # (Auto) 0.00 pCO2 pO2 HCO3 ABG pH ABG Total CO2 ABG O2 Saturation ABG O2 Content ABG Base Excess ABG Hemoglobin ABG Carboxyhemoglobin POC ABG HHb (Measured) ABG Methemoglobin ABG O2 Capacity Hgb O2 Saturation FiO2 Sodium Potassium Chloride Carbon Dioxide Anion Gap BUN Creatinine Est GFR ( Amer) Est GFR (Non-Af Amer) POC Glucose (mg/dL) 263 H 201 H Random Glucose Calcium Total Bilirubin AST ALT Alkaline Phosphatase Total Protein Albumin Globulin Albumin/Globulin Ratio Blood Type Antibody Screen BBK History Checked 07/23/18 07/23/18 07/23/18 06:00 06:30 07:14 WBC RBC Hgb Hct MCV MCH MCHC RDW Plt Count Manual Plt Count Gran % Lymph % (Auto) [place] % (Auto) Eos % (Auto) Baso % (Auto) Gran # Lymph # (Auto) [place] # (Auto) Eos # (Auto) Baso # (Auto) pCO2 29 L pO2 117.0 H HCO3 17.2 L ABG pH 7.38 ABG Total CO2 18.1 L ABG O2 Saturation 99.3 H ABG O2 Content 16.5 ABG Base Excess -6.7 L ABG Hemoglobin 12.0 ABG Carboxyhemoglobin 1.8 H POC ABG HHb (Measured) 0.7 ABG Methemoglobin 0.9 ABG O2 Capacity 16.6 Hgb O2 Saturation 96.6 FiO2 40.0 Sodium 156 H* Potassium 3.9 Chloride 131 H Carbon Dioxide 20 L Anion Gap 10 BUN 137 H* Creatinine 2.1 H Est GFR ( Amer) 39 Est GFR (Non-Af Amer) 32 POC Glucose (mg/dL) 208 H Random Glucose 215 H Calcium 8.0 L Total Bilirubin 0.6 AST 35 ALT 66 H Alkaline Phosphatase 77 Total Protein 5.4 L Albumin 2.4 L Globulin 3.0 Albumin/Globulin Ratio 0.8 L Blood Type Antibody Screen BBK History Checked 07/23/18 07/23/18 07/23/18 08:10 11:10 11:16 WBC RBC Hgb Hct MCV MCH MCHC RDW Plt Count Manual Plt Count 14 L* Gran % Lymph % (Auto) [place] % (Auto) Eos % (Auto) Baso % (Auto) Gran # Lymph # (Auto) [place] # (Auto) Eos # (Auto) Baso # (Auto) pCO2 pO2 HCO3 ABG pH ABG Total CO2 ABG O2 Saturation ABG O2 Content ABG Base Excess ABG Hemoglobin ABG Carboxyhemoglobin POC ABG HHb (Measured) ABG Methemoglobin ABG O2 Capacity Hgb O2 Saturation FiO2 Sodium Potassium Chloride Carbon Dioxide Anion Gap BUN Creatinine Est GFR ( Amer) Est GFR (Non-Af Amer) POC Glucose (mg/dL) 247 H Random Glucose Calcium Total Bilirubin AST ALT Alkaline Phosphatase Total Protein Albumin Globulin Albumin/Globulin Ratio Blood Type O POSITIVE Antibody Screen Negative BBK History Checked Patient has bt 07/23/18 11:50 WBC RBC Hgb Hct MCV MCH MCHC RDW Plt Count Manual Plt Count Gran % Lymph % (Auto) [place] % (Auto) Eos % (Auto) Baso % (Auto) Gran # Lymph # (Auto) [place] # (Auto) Eos # (Auto) Baso # (Auto) pCO2 pO2 HCO3 ABG pH ABG Total CO2 ABG O2 Saturation ABG O2 Content ABG Base Excess ABG Hemoglobin ABG Carboxyhemoglobin POC ABG HHb (Measured) ABG Methemoglobin ABG O2 Capacity Hgb O2 Saturation FiO2 Sodium 148 Potassium 3.5 L Chloride 124 H Carbon Dioxide 19 L Anion Gap 7 L BUN > 120 H* Creatinine 1.8 H Est GFR ( Amer) 46 Est GFR (Non-Af Amer) 38 POC Glucose (mg/dL) Random Glucose 225 H Calcium 7.0 L Total Bilirubin AST ALT Alkaline Phosphatase Total Protein Albumin Globulin Albumin/Globulin Ratio Blood Type Antibody Screen BBK History Checked Radiology Impressions: Radiology Impressions Chest X-Ray 07/22/18 15:37 IMPRESSION: Status post PICC line placement via left upper extremity approach. The tip is in the SVC. New right lower lobe infiltrate/right pleural effusion. Stable position of endotracheal tube and nasogastric tube. Chest X-Ray 07/23/18 06:00 IMPRESSION: Resolution of prior medial basilar airspace disease with tubes and catheters unchanged in position as per above. Critical Care Progress Note - Nutrition Nutrition: Nutrition Category Date Time Status NPO Diet [DIET] Diets 07/06/18 Breakfast Ordered Attending/Attestation - Attestation I have personally seen and examined this patient.: Yes I have fully participated in the care of the patient.: Yes I have reviewed all pertinent clinical information: Yes Notes (Text): 07/23/18 12:43 The patient was seen and examined at the bedside. Patient care was discussed with resident Medical records, lab studies were reviewed and management issues were discussed and formulated. Agree with above treatment plans as outlined in 's note with addition of the following: Acute on chronic respiratory failure \ Hypoxemia \ PNA \ Anemia \ Thrombocytopenia \ Hypernatremia \ OG \ DM2 uncontrolled \ COPD \ Polyneuropathy -hemodynamic monitoring to maintain MAP>65 -mechanical ventilation and o2 supplementation to maintain Spo2 >90 Pao2>60 -monitor for TV 6ml\kg IBW and plateau pressure <30 -ABG in AM reviewed ; fio2 at 40% -continue nebs and steroids and pulmonary toileting -continue broad spectrum Abx as per ID team and f\u cultures -f\u Bun\Cr and U\o; start D5W in addition to free H2O flushes and f\u serial Na+ level -renal team f\u -Tube feds diet and aspiration precautions -ISS\Lantus and BGM monitoring -neurology f\u -f\u serial CBC and monitor for bleed; transfuse blood products as per Hematology team -PT\OT f\u -DVT \ PUD prophylaxis CCM time 35min
[2018-07-23] MEDS ORDERED: Insulin Reg-HIGH-Coverage SC SCH ×2 (12:00→16:30)
[2018-07-23 12:20] LABS: BLOOD UREA NITROGEN > 120 mg/dL (7-21); GFR NON-AFRICAN AMERICAN 38
--- NOTE | 2018-07-23 12:34 | PN ---
SUBJECTIVE: The patient was seen and examined at bedside in the ICU. He remains intubated and sedated. Repeat chest x-ray showed new right lower lobe infiltrate and he has been restarted on empiric antibiotics. OBJECTIVE: VITAL SIGNS: Temperature 98.6, pulse 69, blood pressure 124/68, respiratory rate 20 and oxygen saturation 96% on 40% FIO2. GENERAL: Intubated and sedated. HEENT: PERRL. ETT in place. OGT in place. NECK: No JVD. LUNGS: Coarse breath sounds anteriorly with decreased breath sounds at the bases and few rhonchi. CARDIOVASCULAR: Regular rate and rhythm. Normal S1 and S2. ABDOMEN: Normoactive bowel sounds. Soft, nondistended. EXTREMITIES: Trace pedal edema. NEUROLOGIC: Intubated and sedated. LABORATORY DATA: WBC 12.2 with 94% neutrophils, hemoglobin 7, hematocrit 25 and platelets 9. Sodium 156, potassium 3.9, chloride 131, bicarb 20, BUN 137, creatinine 2.1 and glucose 215. IMAGING STUDIES: Chest x-ray demonstrates new right lower lobe infiltrate/right pleural effusion and stable position of endotracheal and nasogastric tubes. ASSESSMENT: The patient is a 62-year-old man with multiple medical comorbidities who was admitted to the ICU s/p intubation for acute hypoxic respiratory failure and severe sepsis secondary to community-acquired pneumonia who is now s/p reintubation for hypercapnic respiratory failure likely secondary to right lower lobe aspiration pneumonia. PLAN: 1. Ventilator dependent respiratory failure. Input from Dr. Burr and ICU team greatly appreciated. Continue with care as per ICU team. The patient will likely require placement of tracheostomy. 2. Severe sepsis secondary to aspiration pneumonia. Input from Dr. Lucero appreciated. The patient was restarted on Vancomycin and Meropenem. Continue with antimicrobials as per Dr. Lucero. 3. Acute kidney injury, likely secondary to ATN. Input from Dr. Sullivan appreciated. The patient may require repeat hemodialysis if renal parameters worsen. 4. Hypernatremia. Continue with IV fluid hydration and care as per Dr. Sullivan. As above, the patient may require repeat hemodialysis. 5. NSTEMI. Input from Dr. Saxena appreciated. The patient unfortunately is not a candidate for cardiac catheterization given his clinical condition. 6. Atrial fibrillation, new onset, rate controlled. Continue with care as per Dr. Saxena. 7. Acute systolic heart failure. 8. Flaccid quadriparesis, likely secondary to critical illness polyneuropathy but concern must be given for possible Guillain-[place] syndrome. We will discuss with Dr. Mcdaniels the utility of repeat IVIG therapy. 9. Transaminitis, resolved. 10. Thrombocytopenia secondary to ITP. Input from Dr. Estevez appreciated and the patient has been restarted on Eltrombopag 75 mg p.o. daily. We will continue to monitor his CBC daily. 11. Normocytic anemia. 12. Type 2 diabetes mellitus. Continue with current insulin regimen. 13. Hypertension. 14. Pseudogout. 15. Anxiety disorder. 16. GERD. 17. Prophylaxis. Continue Protonix for GI prophylaxis and SCDs for DVT prophylaxis. CODE STATUS: Full code. Yassine Martinez MD [id number]
--- NOTE | 2018-07-23 12:51 | CP.PCM.PN ---
Subjective - Date & Time of Evaluation Date of Evaluation: 07/23/18 Time of Evaluation: 10:50 - Subjective Subjective: Still on the ventilator, no fevers overnight, not very responsive. Objective - Vital Signs/Intake and Output Vital Signs (last 24 hours): Temp Pulse Resp BP Pulse Ox 99.5 F 72 24 86/49 L 97 07/22/18 12:29 07/22/18 14:05 07/22/18 07:54 07/22/18 14:05 07/22/18 12:29 Intake and Output: 07/22/18 07/22/18 06:59 18:59 Intake Total 2080 24 Output Total 900 Balance 1180 24 - Medications Medications: Current Medications Acetaminophen (Tylenol 650mg/20.3ml Solution Ud) 650 mg PO Q6H PRN PRN Reason: Fever 101F Last Admin: 07/20/18 13:20 Dose: 650 mg Albuterol/Ipratropium (Duoneb 3 Mg/0.5 Mg (3 Ml) Ud) 3 ml IH [id number] [facility] Last Admin: 07/22/18 13:08 Dose: 3 ml Albuterol/Ipratropium (Duoneb 3 Mg/0.5 Mg (3 Ml) Ud) 3 ml IH Q2H PRN PRN Reason: Shortness of Breath Last Admin: 07/11/18 23:55 Dose: 3 ml Digoxin (Lanoxin) 0.125 mg IVP 1400 [facility] Last Admin: 07/22/18 14:05 Dose: 0.125 mg Diltiazem HCl (Cardizem) 60 mg PO TID [facility] Last Admin: 07/22/18 14:05 Dose: Not Given Famotidine (Pepcid) 20 mg IVP DAILY [facility] Last Admin: 07/22/18 09:52 Dose: 20 mg Sodium Chloride (Sodium Chloride 0.45%) 1,000 mls @ 100 mls/hr IV .Q10H [facility] Last Admin: 07/22/18 11:17 Dose: 100 mls/hr Dexamethasone 40 mg/ Sodium (Chloride) 60 mls @ 120 mls/hr IV DAILY [facility] Last Admin: 07/22/18 09:48 Dose: 120 mls/hr Propofol (Diprivan) 1,000 mg in 100 mls @ 2.545 mls/hr IV .Q24H PRN; Protocol PRN Reason: TITRATE PER MD ORDER Insulin Human Regular 100 (units/ Sodium Chloride) 100 mls @ 7 mls/hr IV .[id number] PRN; Protocol PRN Reason: TITRATE PER MD ORDER Last Titration: 07/22/18 16:26 Dose: 2 units/hr, 2 mls/hr Desmopressin Acetate 1 mcg/ (Sodium Chloride) 50.25 mls @ 100 mls/hr IV BID [facility] Vancomycin HCl 2 gm/ Sodium (Chloride) 500 mls @ 170 mls/hr IVPB ONCE ONE; Protocol Stop: 07/22/18 20:59 Meropenem/Sodium Chloride (Merrem Iv 500 Mg/Ns 50 Ml) 500 mg in 50 mls @ 100 mls/hr IVPB Q12 [facility]; Protocol Stop: 07/29/18 18:16 Insulin Detemir (Levemir) 30 unit SC HS [facility] Last Admin: 07/22/18 06:56 Dose: 30 units Non-Formulary Medication (Eltrombopag Olamine [Promacta]) 75 mg PO DAILY [facility] Last Admin: 07/22/18 11:14 Dose: 75 mg Vitamin A (Vitamin A&D) 1 applic TP Q8 PRN PRN Reason: Dry mouth - Labs Labs: 07/22/18 07:00 07/22/18 13:50 PT 12.5 SECONDS (9.4-12.5) 07/19/18 05:00 INR 1.09 07/19/18 05:00 APTT 18.7 Seconds (25.1-36.5) L 07/06/18 11:54 - Constitutional Appears: Chronically Ill, Other (intubated, not very responsive) - Head Exam Head Exam: NORMAL INSPECTION - ENT Exam Additional comments: ET tube in place - Respiratory Exam Respiratory Exam: Decreased Breath Sounds - Cardiovascular Exam Cardiovascular Exam: +S1, +S2 - GI/Abdominal Exam GI & Abdominal Exam: Soft. absent: Tenderness Assessment and Plan - Assessment and Plan (Free Text) Plan: Assessment new onset SIRS with VDRF, consider new onset sepsis due to right lower lobe aspiration hospital-acquired pneumonia thrombocytopenia probably ITP flaccid weakness of extremities consider critical illness polyneuropathy and myopathy S/P Severe sepsis with hypoxic respiratory failure and S/P ventilator-dependent respiratory failure and acute on chronic renal failure as well as thrombocytopenia due to severe right sided community-acquired pneumonia S/P viral infection with Influenza A in this patient with CVA significant and active smoking history COPD HTN DM peripheral vascular disease history of right elbow septic arthritis history of right upper extremity cellulitis Plan continue intermittent IV vancomycin and renally-adjusted Merrem day 2 and will follow up repeat blood and sputum cx, PCT; reviewed CXR discussed with Dr. Burr - probable has critically ill- related myopathy and neuropathy - discussed with Dr. Martinez as well - one rare possibility is Guillain [place] Syndrome - Dr. Martinez will discuss with Neurology to see if patient may benefit from IVIG again (already received it for the thrombocytopenia previously), with further work up considered if feasible patient has been started on steroids by Heme/Onc prognosis is worsening and patient continues to be in critical condition
[2018-07-23] MEDS ORDERED: Insulin Regular 100 UNITS in Sodium Chloride 0.9% 99 ML IV PRN (15:56)
[2018-07-23] MEDS: Digoxin 500 mcg/2ml (0.5 mg/2ml) Inj IVP SCH (16:07)
--- NOTE | 2018-07-23 19:14 | PN ---
DATE: 07/23/2018 CARDIOLOGY FOLLOWUP SUBJECTIVE: The patient is re-intubated. PHYSICAL EXAMINATION VITAL SIGNS: Blood pressure is 107/53, heart rate is in the 70s. NECK: Negative JVD. LUNGS: Decreased breath sounds. HEART: Reveals S1, S2. EXTREMITIES: Without change. LABORATORY DATA: Hemoglobin is 7.2, platelet count is . Chemistries, BUN and creatinine are 120 and 1.8. IMPRESSION: 1. Respiratory failure. 2. Sepsis. 3. Recent [id number] myocardial infarction. 4. Severe thrombocytopenia. 5. End-stage renal disease. It is likely that the patient will need a tracheostomy. His prognosis is poor. Benjamin Saxena MD
[2018-07-23] MEDS: Insulin Regular 100 UNITS in Sodium Chloride 0.9% 99 ML IV PRN ×2 (19:20→22:07)
[2018-07-23 20:55] LABS: GRAN # 11.85 (1.4-6.5); GRAN % 97.3 % (50.0-68.0); HEMOGLOBIN 7.6 g/dL (14.0-18.0); LYMPH # 0.3 (1.2-3.4); LYMPH % 2.2 % (22.0-35.0); MEAN CELL VOLUME 88.8 fl (80.0-105.0); MEAN CORPUSCULAR HEMOGLOBIN 26.7 pg (25.0-35.0); MONO # 0.1 (0.1-0.6); MONO % 0.5 % (1.0-6.0); RBC 2.85 10^6/uL (3.5-6.1); RED CELL DISTRIBUTION WIDTH 16.6 % (11.5-14.5); WHITE BLOOD COUNT 12.2 10^3/uL (4.5-11.0)
[2018-07-23 21:02] LABS: PLATELET COUNT 12 10^3/uL (120.0-450.0)
[2018-07-23 21:41] LABS: ALB/GLOB RATIO 0.8 (1.1-1.8); ALBUMIN 2.4 g/dL (3.0-4.8)
--- NOTE | 2018-07-23 23:41 | PN ---
DATE: 07/23/2018 SUBJECTIVE: The patient is seen in the ICU. He is on mechanical ventilation. He is sedated. He is minimally responsive. He is receiving tube feeds. His intake and output has been 4000 in and 2900 out overnight. His WBC count has improved. His sodium has improved. OBJECTIVE: GENERAL: Elderly male, lying in bed in the ICU. VITAL SIGNS: Blood pressure 127/64, heart rate 79, respiratory rate 27, temperature 99.1. HEENT: Normocephalic, atraumatic, positive pallor. NECK: Supple, no JVD. LUNGS: Bilateral equal entry, bilateral equal expansion, bilateral rhonchi. CARDIAC: S1, S2. Regular rate and rhythm. No murmur, no rub. ABDOMEN: Obese, distended, soft, nontender, bowel sounds present. EXTREMITIES: Chronic stasis changes in the lower extremities, 1+ edema, severe ecchymosis of the right upper arm. Intake and output 3997/2900. LABORATORY DATA WBC 12.2, hemoglobin 7.2, hematocrit 24.5, platelets 9. Sodium 148, potassium 3.5, chloride 124, CO2 of 19, BUN greater than 120, creatinine 1.8, glucose 225, calcium 7. Blood gas 7.38, pCO2 of 29, pO2 of 117. CURRENT MEDICATIONS: Cardizem 60 t.i.d., desmopressin 1 mcg daily, dexamethasone 40 daily, Diprivan, DuoNeb, insulin 16 units per hour, digoxin 0.125 daily, meropenem 500 every 12 hours, Pepcid 20. ASSESSMENT AND PLAN: 1. Multiorgan dysfunction, respiratory failure, acute kidney injury. 2. Sepsis/disseminated intravascular coagulation? 3. Severe anemia? Bleeding. 4. Severe thrombocytopenia. 5. Hypernatremia, improved. 6. Hyperkalemia, resolved. 7. Acute kidney injury, resolving, renal parameters are stable, BUN extremely high in the setting of hypercatabolic state and sepsis. 8. Atrial fibrillation. 9. Severe cardiomyopathy. 10. Non anion gap metabolic acidosis. PLAN: 1. Continue empiric antibiotics as per ID recommendations. 2. The patient is receiving IV steroids for critical illness polyneuropathy. 3. Suggest insulin drip. 4. No indication for renal replacement therapy. 5. Agree with platelet transfusion. 6. Consider PRBC transfusion. 7. Case discussed at length with ICU attending , case discussed with ICU residents, case discussed with ICU nursing staff. More than 35 minutes spent in the care of this critically ill patient. Bobbi Sullivan MD
[2018-07-24] MEDS: Albuterol-Ipratrop 3 mg / 0.5 (3 ml) UD IH SCH ×4 (02:12→20:12)
--- NOTE | 2018-07-24 02:53 | CP.PCM.PN ---
Subjective - Date & Time of Evaluation Date of Evaluation: 07/24/18 Time of Evaluation: 02:51 - Subjective Subjective: PGY-[address] Mitchell Hypernatremia at 155. Increase D5W from 60cc to 100cc/hr. Recheck BMP at 6am. Currently, pt is receiving [id number] free water flushes via PEG. Will wait for BMP at 6 before further adjusting the free water flush Objective - Vital Signs/Intake and Output Vital Signs (last 24 hours): Temp Pulse Resp BP Pulse Ox 99.3 F 72 30 H 107/50 L 100 07/23/18 19:23 07/23/18 19:23 07/23/18 19:23 07/23/18 19:23 07/23/18 18:00 Intake and Output: 07/23/18 07/24/18 18:59 06:59 Intake Total 2341 348 Output Total 1250 Balance 1091 348 - Medications Medications: Current Medications Acetaminophen (Tylenol 650mg/20.3ml Solution Ud) 650 mg PO Q6H PRN PRN Reason: Fever 101F Last Admin: 07/20/18 13:20 Dose: 650 mg Albuterol/Ipratropium (Duoneb 3 Mg/0.5 Mg (3 Ml) Ud) 3 ml IH [id number] [facility] Last Admin: 07/24/18 02:12 Dose: 3 ml Albuterol/Ipratropium (Duoneb 3 Mg/0.5 Mg (3 Ml) Ud) 3 ml IH Q2H PRN PRN Reason: Shortness of Breath Last Admin: 07/11/18 23:55 Dose: 3 ml Digoxin (Lanoxin) 0.125 mg IVP 1400 [facility] Last Admin: 07/23/18 16:07 Dose: 0.125 mg Diltiazem HCl (Cardizem) 60 mg PO TID [facility] Last Admin: 07/23/18 18:30 Dose: 60 mg Famotidine (Pepcid) 20 mg IVP DAILY [facility] Last Admin: 07/23/18 09:29 Dose: 20 mg Dexamethasone 40 mg/ Sodium (Chloride) 60 mls @ 120 mls/hr IV DAILY [facility] Last Admin: 07/23/18 10:08 Dose: 120 mls/hr Propofol (Diprivan) 1,000 mg in 100 mls @ 2.545 mls/hr IV .Q24H PRN; Protocol PRN Reason: TITRATE PER MD ORDER Last Admin: 07/23/18 13:15 Dose: 10 mcg/kg/min, 5.089 mls/hr Desmopressin Acetate 1 mcg/ (Sodium Chloride) 50.25 mls @ 100 mls/hr IV BID [facility] Last Admin: 07/23/18 17:11 Dose: 100 mls/hr Meropenem/Sodium Chloride (Merrem Iv 500 Mg/Ns 50 Ml) 500 mg in 50 mls @ 100 mls/hr IVPB Q12 [facility]; Protocol Stop: 07/29/18 18:16 Last Admin: 07/23/18 21:07 Dose: 100 mls/hr Insulin Human Regular 100 (units/ Sodium Chloride) 100 mls @ 15 mls/hr IV .Q6H40M PRN; Protocol PRN Reason: TITRATE PER MD ORDER Last Titration: 07/24/18 01:14 Dose: 5 units/hr, 5 mls/hr Dextrose (Dextrose 5% In Water 1000 Ml) 1,000 mls @ 100 mls/hr IV .Q10H [facility] Insulin Detemir (Levemir) 30 unit SC HS [facility] Last Admin: 07/22/18 06:56 Dose: 30 units Non-Formulary Medication (Eltrombopag Olamine [Promacta]) 75 mg PO DAILY [facility] Last Admin: 07/23/18 09:32 Dose: 75 mg Vitamin A (Vitamin A&D) 1 applic TP Q8 PRN PRN Reason: Dry mouth - Labs Labs: 07/23/18 20:40 07/24/18 00:25 PT 12.5 SECONDS (9.4-12.5) 07/19/18 05:00 INR 1.09 07/19/18 05:00 APTT 18.7 Seconds (25.1-36.5) L 07/06/18 11:54
[2018-07-24 05:43] LABS: ARTERIAL BLOOD GAS HCO3 19.5 mmol/L (21-28); ARTERIAL BLOOD GAS HEMOGLOBIN 8.3 g/dL (11.7-17.4); ARTERIAL BLOOD GAS O2 CAPACITY 11.7 mL/dl (16-24); ARTERIAL BLOOD GAS O2 CONTENT 11.6 ML/dl (15-23); ARTERIAL BLOOD GAS O2 SAT 99.5 % (95-98); ARTERIAL BLOOD GAS PCO2 30 mm/Hg (35-45); ARTERIAL BLOOD GAS PH 7.42 (7.35-7.45); ARTERIAL BLOOD GAS TCO2 20.4 mmol.L (22-28)
[2018-07-24 06:46] LABS: GRAN % 94.9 % (50.0-68.0); HEMOGLOBIN 7.9 g/dL (14.0-18.0); LYMPH # 0.4 (1.2-3.4); LYMPH % 3.4 % (22.0-35.0); MEAN CORPUSCULAR HEMOGLOBIN 27.1 pg (25.0-35.0); MEAN CORPUSCULAR HGB CONC 30.7 g/dl (31.0-37.0); MONO # 0.2 (0.1-0.6); MONO % 1.7 % (1.0-6.0); RBC 2.92 10^6/uL (3.5-6.1); RED CELL DISTRIBUTION WIDTH 16.5 % (11.5-14.5); WHITE BLOOD COUNT 10.4 10^3/uL (4.5-11.0)
[2018-07-24 06:47] LABS: INR 1.09; PROTHROMBIN TIME 12.5 SECONDS (9.4-12.5)
[2018-07-24] MEDS ORDERED: Insulin Regular 100 UNITS in Sodium Chloride 0.9% 99 ML IV PRN (06:57)
--- NOTE | 2018-07-24 07:34 | CP.PCM.PN ---
Subjective - Date & Time of Evaluation Date of Evaluation: 07/24/18 Time of Evaluation: 07:27 - Subjective Subjective: PGY-2 heme/onc progress note No acute events noted overnight. Patient intubated and sedated - ROS are unobtainable. Objective - Vital Signs/Intake and Output Vital Signs (last 24 hours): Temp Pulse Resp BP Pulse Ox 98.8 F 67 30 H 138/66 100 07/24/18 06:45 07/24/18 06:45 07/23/18 19:23 07/24/18 06:45 07/24/18 06:45 Intake and Output: 07/24/18 07/24/18 06:59 18:59 Intake Total 356 Balance 356 - Medications Medications: Current Medications Acetaminophen (Tylenol 650mg/20.3ml Solution Ud) 650 mg PO Q6H PRN PRN Reason: Fever 101F Last Admin: 07/20/18 13:20 Dose: 650 mg Albuterol/Ipratropium (Duoneb 3 Mg/0.5 Mg (3 Ml) Ud) 3 ml IH [id number] [facility] Last Admin: 07/24/18 02:12 Dose: 3 ml Albuterol/Ipratropium (Duoneb 3 Mg/0.5 Mg (3 Ml) Ud) 3 ml IH Q2H PRN PRN Reason: Shortness of Breath Last Admin: 07/11/18 23:55 Dose: 3 ml Digoxin (Lanoxin) 0.125 mg IVP 1400 [facility] Last Admin: 07/23/18 16:07 Dose: 0.125 mg Diltiazem HCl (Cardizem) 60 mg PO TID [facility] Last Admin: 07/23/18 18:30 Dose: 60 mg Famotidine (Pepcid) 20 mg IVP DAILY [facility] Last Admin: 07/23/18 09:29 Dose: 20 mg Dexamethasone 40 mg/ Sodium (Chloride) 60 mls @ 120 mls/hr IV DAILY [facility] Last Admin: 07/23/18 10:08 Dose: 120 mls/hr Propofol (Diprivan) 1,000 mg in 100 mls @ 2.545 mls/hr IV .Q24H PRN; Protocol PRN Reason: TITRATE PER MD ORDER Last Admin: 07/23/18 13:15 Dose: 10 mcg/kg/min, 5.089 mls/hr Desmopressin Acetate 1 mcg/ (Sodium Chloride) 50.25 mls @ 100 mls/hr IV BID [facility] Last Admin: 07/23/18 17:11 Dose: 100 mls/hr Meropenem/Sodium Chloride (Merrem Iv 500 Mg/Ns 50 Ml) 500 mg in 50 mls @ 100 mls/hr IVPB Q12 JHON; Protocol Stop: 07/29/18 18:16 Last Admin: 07/23/18 21:07 Dose: 100 mls/hr Dextrose (Dextrose 5% In Water 1000 Ml) 1,000 mls @ 100 mls/hr IV .Q10H [facility] Last Admin: 07/24/18 06:50 Dose: 100 mls/hr Insulin Human Regular 100 (units/ Sodium Chloride) 100 mls @ 15 mls/hr IV .Q6H40M PRN; Protocol PRN Reason: TITRATE PER MD ORDER Insulin Detemir (Levemir) 30 unit SC HS [facility] Last Admin: 07/22/18 06:56 Dose: 30 units Non-Formulary Medication (Eltrombopag Olamine [Promacta]) 75 mg PO DAILY [facility] Last Admin: 07/23/18 09:32 Dose: 75 mg Vitamin A (Vitamin A&D) 1 applic TP Q8 PRN PRN Reason: Dry mouth - Labs Labs: 07/23/18 20:40 07/24/18 00:25 PT 12.5 SECONDS (9.4-12.5) 07/24/18 06:10 INR 1.09 07/24/18 06:10 APTT 18.7 Seconds (25.1-36.5) L 07/06/18 11:54 - Additional Findings Additional findings: - Constitutional Appears: No Acute Distress, Older Than Stated Age, Chronically Ill - Head Exam Head Exam: ATRAUMATIC, NORMAL INSPECTION - Eye Exam Eye Exam: EOMI, PERRL. absent: Scleral icterus - ENT Exam ENT Exam: Mucous Membranes Moist Additional comments: Dobhoff in place in R nares ET tube in place - Respiratory Exam Respiratory Exam: Decreased Breath Sounds, Clear to Ausculation Bilateral - Cardiovascular Exam Cardiovascular Exam: REGULAR RHYTHM, +S1, +S2. absent: JVD - GI/Abdominal Exam GI & Abdominal Exam: Soft, Normal Bowel Sounds Additional comments: R femoral cath removed, dressing c/d/i, without hematoma - Extremities Exam Extremities Exam: Normal Capillary Refill Additional comments: chronic diabetic ulcer noted to anterior anderson of left lower extremity Occasional spontaneous motor movement at this time in lower extremities - Neurological Exam Neurological Exam: Awake Additional comments: spontaneous motor movement at this time in upper extremities responds to painful stimuli unable to coherently respond verbally - Skin Skin Exam: Intact, Warm Additional comments: Ecchymotic in R antecubital region, stable; ecchymoses at different levels of healing throughout extremities Assessment and Plan - Assessment and Plan (Free Text) Plan: Mr. Damon is a 62 y/o man with pmhx significant for COPD, HTN; DM; PVD; and ITP admitted with ARDS in setting of NSTEMI and pneumonia/flu+ now s/p extubation with anticoagulants held due to thrombocytopenia: ITP -must rule-out MAHA and TTP -neurology consult for possible gullian barre * discussed with Dr Edis Mcdaniels, will give additional 3 days of IVIG started 07/24/18 80g infused via IV -platelets 9, manual platelets 17, latest INR 1.09 * total 6 unit PLT transfused with minimal response -HIT antibody negative, MARCELO test negative, Negative IVONE and ANCA studies, direct bilirubin normal -obtain peripheral smear * 07/08/18 Peripheral smear shows no atypical cells or immature forms. Mild anisopoikilocytosis. No schistocytes. No PL clumping although markedly reduced. * 07/20/18 Neutrophils 96% lymphocytes 2% monocytes 2%; red blood cells are normocytic normochromic with mild anisocytosis; no schistocytes or nucleated red blood cells seen; platelets are markedly reduced; no clumping of platelets presents -received 5 days of IVIG 07/07/2018 - 07/11/2018 given -will give additional 3 days of IVIG started 07/24/18 80g infused via IV -start empiric treatment for ITP start dextromethasone 40mg iv qd for 5 days (started 07/20/18 - completed 07/24/18) -patient was previously on promacta outpatient - we will restart this medication now - told to bring in medication from home * promacta started on 07/22/18 - receiving crushed via tube feed * promacta stopped on 07/24/18 - no response -transfuse if <20 or actively bleeding -hold off on DVT chemoprophylaxis at this time, may resume of platelets >50 -stopped protonix and started on iv pepcid 20mg bid 07/21/17 as association with protonix and thrombocytopenia Case discussed with Dr Zachary Estevez
[2018-07-24 07:56] LABS: PLATELET COUNT 9 10^3/uL (120.0-450.0)
[2018-07-24 07:57] LABS: ALB/GLOB RATIO 0.8 (1.1-1.8); ALBUMIN 2.4 g/dL (3.0-4.8); CALCIUM 7.8 mg/dL (8.4-10.5)
[2018-07-24] MEDS: Propofol 10 mg/ml 1,000 MG/100 ML VIAL IV PRN ×2 (08:13→23:45)
[2018-07-24] MEDS: Insulin Regular 100 UNITS in Sodium Chloride 0.9% 99 ML IV PRN (09:09)
[2018-07-24] MEDS: MEROPENEM 500 MG in NS 500 MG/50 ML BAG IVPB SCH ×2 (09:13→21:31)
[2018-07-24] MEDS: Dexamethasone 40 MG in Sodium Chloride 0.9% 50 ML IV SCH (09:14)
[2018-07-24 09:46] LABS: PLATELET COUNT MANUAL 17 K/mm3 (120-450)
[2018-07-24] MEDS: ELTROMBOPAG OLAMINE 75 MG PO SCH (10:16)
--- NOTE | 2018-07-24 10:26 | RAD ---
Date of service: 07/24/2018 HISTORY: f/u COMPARISON: 07/23/2018 FINDINGS: LUNGS: No active pulmonary disease. The endotracheal tube and nasogastric tube are in satisfactory position PLEURA: No significant pleural effusion identified, no pneumothorax apparent. CARDIOVASCULAR: No aortic atherosclerotic calcification present. Normal cardiac size. No pulmonary vascular congestion. OSSEOUS STRUCTURES: No significant abnormalities. VISUALIZED UPPER ABDOMEN: Normal. OTHER FINDINGS: None. IMPRESSION: No active disease.
[2018-07-24] MEDS ORDERED: Vancomycin 1gm in NS 250ml 1 GM/250 ML BAG IVPB STA (10:43)
--- NOTE | 2018-07-24 10:49 | PN ---
DATE: 07/24/2018 SUBJECTIVE: The patient remains on the ventilator. He is sedated. PHYSICAL EXAMINATION: VITAL SIGNS: Temperature 98.8, pulse 82, respiratory rate 26/14, blood pressure 138/66. HEENT: Normocephalic, atraumatic. NECK: No JVD. CARDIOVASCULAR: Systolic ejection murmur at the lower left sternal border. No S3 gallop. LUNGS: Decreased breath sounds at the bases. Minimal/less rhonchi. No wheezing. EXTREMITIES: Mild edema. No cyanosis. No clubbing. GI: Abdomen is soft, nontender and nondistended. Bowel sounds are positive. SKIN: No acute rash. NEUROLOGIC: Exam limited at the present time. PERTINENT LABORATORY DATA: Chest x-ray was done and reviewed. The chest x-ray shows continued clearing of the pulmonary infiltrates. Arterial blood gas was done on PRVC 14, tidal volume 500, FiO2 of 40%. Results are pH 7.42, pCO2 of 30, pO2 of 138. IMPRESSION: 1. Respiratory failure. 2. Bilateral pneumonia. 3. Rule out myocardial infarction. 4. Ischemic dilated cardiomyopathy. 5. Renal failure. 6. Anemia, thrombocytopenia. 7. Chronic obstructive pulmonary disease. 8. Rule out critical illness polyneuropathy. PLAN: The patient remains in the ICU. He remains sedated and on the ventilator. I did discuss the case with night nurse at length. The night nurse stated that the patient had an uneventful night. I did review the chest x-ray from this morning. Again, the chest x-ray continues to improve with clearing pulmonary infiltrates. I have also reviewed the arterial blood gas. The arterial blood gas is also much improved-- with normalization of the pH and a decrease in the alveolar-arterial gradient. I would continue with the current ventilator settings for now. Inputs by Renal, Cardiology, Infectious Disease are noted. Temperatures are resolving. The patient remains critically ill with overall very guarded/poor prognosis. I will discuss the above with the entire ICU team in the next few moments. I will discuss the above with the attending physician later this morning. Balta Burr MD [facility]
--- NOTE | 2018-07-24 11:10 | PN ---
DATE: 07/24/2018 SUBJECTIVE: The patient is a 62-year-old male in room 128, bed 5. The patient remains intubated and he is sedated, so the review of systems is unobtainable. There have been no acute overnight events. PHYSICAL EXAMINATION: VITAL SIGNS: Temperature of 99, pulse rate of 71, blood pressure 141/68. The patient is on a respirator with an O2 saturation of 100%. HEENT: JEERMY RICHARDSON. The patient with an endotracheal tube in place. NECK: Supple. There is no adenopathy or jugular venous distention. LUNGS: Clear bilaterally. HEART: With a regular rate and rhythm. ABDOMEN: Soft. It is nontender. There is no organomegaly. NEUROLOGIC: The patient is sedated. LABORATORY VALUES: WBC of 10.4, hemoglobin/hematocrit of 7.9 and 25.7, platelet count is 9000 with a manual platelet count pending. Chemistry, sodium of 155, BUN of 113, creatinine of 2.2, random glucose of 165. CURRENT DIAGNOSES: 1. Acute hypoxemic respiratory failure. 2. Sepsis. 3. Congestive heart failure. 4. Acute kidney injury and pneumonia. Continue current regimen. Cipriano Martinez MD
--- NOTE | 2018-07-24 11:22 | CP.CCUPN ---
<Dannie Yeh - Last Filed: 07/24/18 11:10> CCU Subjective - Physician Review Subjective (Free Text): Dannie Yeh PGY1 Critical Care Progress Note Patient seen and examined at bedside this morning. No acute events reported overnight. Will titrate down insulin drip to algorithm 2 due to sugars <100 overnight. Currently intubated and sedated, 12 point ROS limited. Awaiting LTAC placement. CCU Objective - Vital Signs / Intake & Output Vital Signs (Last 4 hours): Vital Signs Temp Pulse BP Pulse Ox 07/24/18 10:16 76 129/62 07/24/18 08:30 99.0 F 71 141/68 100 07/24/18 08:15 99.0 F 71 139/62 100 07/24/18 08:00 98.8 F 71 136/65 100 07/24/18 07:45 98.8 F 70 136/66 100 07/24/18 07:30 98.8 F 67 137/66 100 07/24/18 07:15 98.8 F 66 132/66 100 Intake and Output (Last 8hrs): Intake & Output 07/23/18 07/24/18 07/24/18 22:59 06:59 14:59 Intake Total 2585 1622.75 100 Output Total 1250 1200 Balance 1335 422.75 100 Intake: IV 1301 832.75 100 IVF 910 585 antibiotics 200 50 insulin 32 91 propofol 59 59 Oral 0 Tube Feeding 330 690 TPN/PPN 0 Blood Product 534 0 Apheresis Plts Acda Lr 209 Irr Unit [id number] Red Blood Cells Cpd As1 325 Lr Unit [id number] Lipid 0 Albumin 0 Other 420 100 Red Blood Cells Cpd As1 20 Lr Unit [id number] Output: Gastric Amount 0 0 Stomach 0 0 Urine 1250 1200 Urethral (Oliveros) 1250 1200 Stool 0 Urine/Stool Mix 0 Emesis 0 0 Oral Regurgitation 0 Other 0 Other: # Voids Urethral (Oliveros) 0 # Bowel Movements 0 1 - Physical Exam Head: Positive for: Atraumatic, Normocephalic Pupils: Positive for: PERRL Extroacular Muscles: Negative for: EOMI (unable to be assessed) Conjunctiva: Positive for: Normal Mouth: Positive for: Dry, Drooling Pharnyx: Positive for: Other (intubated ) Nose (External): Positive for: Other (Dobhoff in place in R nares, NC in place) Respiratory/Chest: Positive for: Clear to Auscultation, Decreased Breath Sounds. Negative for: Respiratory Distress, Wheezes, Tachypneic Cardiovascular: Positive for: Normal S1, S2. Negative for: Murmurs Abdomen: Negative for: Tenderness, Peritoneal Signs, Guarding Back: Positive for: Normal Inspection Upper Extremity: Positive for: Normal Inspection, Other (flaccid). Negative for: Cyanosis, Edema Lower Extremity: Positive for: Edema (1+ pitting edema noted to right lower extremity; chronic diabetic ulcer noted to anterior anderson of left lower extremity ), Other (flaccid) Neurological: Negative for: GCS=15, CN II-XII Intact, Speech Normal Skin: Positive for: Warm, Dry, Normal Color, Other (Ecchymotic in R antecubital region, stable; ecchymoses at different levels of healing throughout extremities). Negative for: Rashes Psychiatric: Negative for: Oriented x 3, Normal Insight - Medications Active Medications: Active Medications Generic Name Dose Route Start Last Admin Trade Name Freq PRN Reason Stop Dose Admin Acetaminophen 650 mg 07/08/18 18:18 07/20/18 13:20 Tylenol 650mg/20.3ml Solution Ud PO 650 mg Q6H PRN Administration Fever 101F Albuterol/Ipratropium 3 ml 07/03/18 14:00 07/24/18 07:43 Duoneb 3 Mg/0.5 Mg (3 Ml) Ud IH 3 ml [id number] ESEMA Administration Albuterol/Ipratropium 3 ml 07/03/18 11:04 07/11/18 23:55 Duoneb 3 Mg/0.5 Mg (3 Ml) Ud IH 3 ml Q2H PRN Administration Shortness of Breath Digoxin 0.125 mg 07/13/18 14:00 07/23/18 16:07 Lanoxin IVP 0.125 mg 1400 SEEMA Administration Diltiazem HCl 60 mg 07/17/18 14:00 07/24/18 10:16 Cardizem PO 60 mg TID SEEMA Administration Famotidine 20 mg 07/22/18 10:00 07/24/18 10:17 Pepcid IVP 20 mg DAILY SEEMA Administration Dexamethasone 40 mg/ Sodium 60 mls @ 120 mls/hr 07/20/18 12:00 07/24/18 09:14 Chloride IV 120 mls/hr DAILY SEEMA Administration Propofol 1,000 mg in 100 mls @ 2.545 mls/hr 07/22/18 08:29 07/24/18 08:13 Diprivan IV 10 mcg/kg/min .Q24H PRN 5.089 mls/hr TITRATE PER MD ORDER Administration Protocol 5 MCG/KG/MIN Desmopressin Acetate 1 mcg/ 50.25 mls @ 100 mls/hr 07/22/18 18:00 07/24/18 09:28 Sodium Chloride IV 100 mls/hr BID SEEMA Administration Meropenem/Sodium Chloride 500 mg in 50 mls @ 100 mls/hr 07/22/18 18:15 07/24/18 09:13 Merrem Iv 500 Mg/Ns 50 Ml IVPB 07/29/18 18:16 100 mls/hr Q12 SEEMA Administration Protocol Dextrose 1,000 mls @ 100 mls/hr 07/24/18 02:51 07/24/18 06:50 Dextrose 5% In Water 1000 Ml IV 100 mls/hr .Q10H SEEMA Administration Insulin Human Regular 100 100 mls @ 15 mls/hr 07/24/18 08:24 07/24/18 09:09 units/ Sodium Chloride IV 12 units/hr .Q6H40M PRN 12 mls/hr TITRATE PER MD ORDER Administration Protocol 15 UNITS/HR Vancomycin HCl 1 gm in 250 mls @ 167 mls/hr 07/24/18 10:43 Vancomycin 1gm IVPB 07/24/18 12:12 STAT STA Protocol Insulin Detemir 30 unit 07/17/18 10:39 07/22/18 06:56 Levemir SC 30 units HS SEEMA Administration Non-Formulary Medication 75 mg 07/21/18 16:34 07/24/18 10:16 Eltrombopag Olamine [Promacta] PO 75 mg DAILY SEEMA Administration Vitamin A 1 applic 07/13/18 16:53 Vitamin A&D TP Q8 PRN Dry mouth - Patient Studies Lab Studies: Microbiology Studies 07/19/18 10:30 Blood Culture - Final Blood NO GROWTH AFTER 5 DAYS 07/19/18 10:55 Blood Culture - Final Blood NO GROWTH AFTER 5 DAYS Gram Stain - Final TEST NOT PERFORMED 07/23/18 13:20 Gram Stain - Final Sputum Sputum Culture - Preliminary Gram Negative Stanley 07/22/18 19:53 Blood Culture - Preliminary Blood-Venous NO GROWTH AFTER 24 HOURS 07/22/18 19:53 Blood Culture - Preliminary Blood-Venous NO GROWTH AFTER 24 HOURS Lab Studies 07/24/18 07/24/18 07/24/18 Range/Units 10:18 09:10 07:07 WBC (4.5-11.0) 10^3/uL RBC (3.5-6.1) 10^6/uL Hgb (14.0-18.0) g/dL Hct (42.0-52.0) % MCV (80.0-105.0) fl MCH (25.0-35.0) pg MCHC (31.0-37.0) g/dl RDW (11.5-14.5) % Plt Count (120.0-450.0) 10^3/uL Manual Plt Count (120-450) K/mm3 Gran % (50.0-68.0) % Lymph % (Auto) (22.0-35.0) % [place] % (Auto) (1.0-6.0) % Eos % (Auto) (1.5-5.0) % Baso % (Auto) (0.0-3.0) % Gran # (1.4-6.5) Lymph # (Auto) (1.2-3.4) [place] # (Auto) (0.1-0.6) Eos # (Auto) (0.0-0.7) Baso # (Auto) (0.0-2.0) K/mm3 PT (9.4-12.5) SECONDS INR pCO2 (35-45) mm/Hg pO2 (80-100) mm/Hg HCO3 (21-28) mmol/L ABG pH (7.35-7.45) ABG Total CO2 (22-28) mmol.L ABG O2 Saturation (95-98) % ABG O2 Content (15-23) ML/dl ABG Base Excess (-2.0-3.0) mmol/L ABG Hemoglobin (11.7-17.4) g/dL ABG Carboxyhemoglobin (0.5-1.5) % POC ABG HHb (Measured) (0-5) % ABG Methemoglobin (0.0-3.0) % ABG O2 Capacity (16-24) mL/dl Hgb O2 Saturation (95.0-98.0) % FiO2 % Sodium (132-148) mmol/L Potassium (3.6-5.0) mmol/L Chloride (98-107) mmol/L Carbon Dioxide (21-33) mmol/L Anion Gap (10-20) BUN (7-21) mg/dL Creatinine (0.8-1.5) mg/dl Est GFR ( Amer) Est GFR (Non-Af Amer) POC Glucose (mg/dL) 379 H 365 H 233 H (65-110) mg/dL Random Glucose (70-110) mg/dL Calcium (8.4-10.5) mg/dL Total Bilirubin (0.2-1.3) mg/dL AST (17-59) U/L ALT (7-56) U/L Alkaline Phosphatase (38-126) U/L Total Protein (5.8-8.3) g/dL Albumin (3.0-4.8) g/dL Globulin gm/dL Albumin/Globulin Ratio (1.1-1.8) Procalcitonin (0.19-0.49) NG/ML Blood Type Antibody Screen Crossmatch BBK History Checked 07/24/18 07/24/18 07/24/18 Range/Units 06:16 06:10 06:10 WBC (4.5-11.0) 10^3/uL RBC (3.5-6.1) 10^6/uL Hgb (14.0-18.0) g/dL Hct (42.0-52.0) % MCV (80.0-105.0) fl MCH (25.0-35.0) pg MCHC (31.0-37.0) g/dl RDW (11.5-14.5) % Plt Count (120.0-450.0) 10^3/uL Manual Plt Count (120-450) K/mm3 Gran % (50.0-68.0) % Lymph % (Auto) (22.0-35.0) % [place] % (Auto) (1.0-6.0) % Eos % (Auto) (1.5-5.0) % Baso % (Auto) (0.0-3.0) % Gran # (1.4-6.5) Lymph # (Auto) (1.2-3.4) [place] # (Auto) (0.1-0.6) Eos # (Auto) (0.0-0.7) Baso # (Auto) (0.0-2.0) K/mm3 PT 12.5 (9.4-12.5) SECONDS INR 1.09 pCO2 (35-45) mm/Hg pO2 (80-100) mm/Hg HCO3 (21-28) mmol/L ABG pH (7.35-7.45) ABG Total CO2 (22-28) mmol.L ABG O2 Saturation (95-98) % ABG O2 Content (15-23) ML/dl ABG Base Excess (-2.0-3.0) mmol/L ABG Hemoglobin (11.7-17.4) g/dL ABG Carboxyhemoglobin (0.5-1.5) % POC ABG HHb (Measured) (0-5) % ABG Methemoglobin (0.0-3.0) % ABG O2 Capacity (16-24) mL/dl Hgb O2 Saturation (95.0-98.0) % FiO2 % Sodium 155 H (132-148) mmol/L Potassium 3.7 (3.6-5.0) mmol/L Chloride 130 H (98-107) mmol/L Carbon Dioxide 21 (21-33) mmol/L Anion Gap 7 L (10-20) BUN 113 H (7-21) mg/dL Creatinine 2.2 H (0.8-1.5) mg/dl Est GFR ( Amer) 37 Est GFR (Non-Af Amer) 30 POC Glucose (mg/dL) 165 H (65-110) mg/dL Random Glucose 192 H (70-110) mg/dL Calcium 7.8 L (8.4-10.5) mg/dL Total Bilirubin 0.7 (0.2-1.3) mg/dL AST 51 (17-59) U/L ALT 68 H (7-56) U/L Alkaline Phosphatase 84 (38-126) U/L Total Protein 5.4 L (5.8-8.3) g/dL Albumin 2.4 L (3.0-4.8) g/dL Globulin 3.0 gm/dL Albumin/Globulin Ratio 0.8 L (1.1-1.8) Procalcitonin (0.19-0.49) NG/ML Blood Type Antibody Screen Crossmatch BBK History Checked 07/24/18 07/24/18 07/24/18 Range/Units 06:10 05:23 05:20 WBC 10.4 (4.5-11.0) 10^3/uL RBC 2.92 L (3.5-6.1) 10^6/uL Hgb 7.9 L (14.0-18.0) g/dL Hct 25.7 L (42.0-52.0) % MCV 88.0 (80.0-105.0) fl MCH 27.1 (25.0-35.0) pg MCHC 30.7 L (31.0-37.0) g/dl RDW 16.5 H (11.5-14.5) % Plt Count 9 L* (120.0-450.0) 10^3/uL Manual Plt Count 17 L* (120-450) K/mm3 Gran % 94.9 H (50.0-68.0) % Lymph % (Auto) 3.4 L (22.0-35.0) % [place] % (Auto) 1.7 (1.0-6.0) % Eos % (Auto) 0.0 L (1.5-5.0) % Baso % (Auto) 0.0 (0.0-3.0) % Gran # 9.90 H (1.4-6.5) Lymph # (Auto) 0.4 L (1.2-3.4) [place] # (Auto) 0.2 (0.1-0.6) Eos # (Auto) 0.0 (0.0-0.7) Baso # (Auto) 0.00 (0.0-2.0) K/mm3 PT (9.4-12.5) SECONDS INR pCO2 30 L (35-45) mm/Hg pO2 138.0 H (80-100) mm/Hg HCO3 19.5 L (21-28) mmol/L ABG pH 7.42 (7.35-7.45) ABG Total CO2 20.4 L (22-28) mmol.L ABG O2 Saturation 99.5 H (95-98) % ABG O2 Content 11.6 L (15-23) ML/dl ABG Base Excess -4.3 L (-2.0-3.0) mmol/L ABG Hemoglobin 8.3 L (11.7-17.4) g/dL ABG Carboxyhemoglobin 1.6 H (0.5-1.5) % POC ABG HHb (Measured) 0.5 (0-5) % ABG Methemoglobin 1.2 (0.0-3.0) % ABG O2 Capacity 11.7 L (16-24) mL/dl Hgb O2 Saturation 96.8 (95.0-98.0) % FiO2 40.0 % Sodium (132-148) mmol/L Potassium (3.6-5.0) mmol/L Chloride (98-107) mmol/L Carbon Dioxide (21-33) mmol/L Anion Gap (10-20) BUN (7-21) mg/dL Creatinine (0.8-1.5) mg/dl Est GFR ( Amer) Est GFR (Non-Af Amer) POC Glucose (mg/dL) 128 H (65-110) mg/dL Random Glucose (70-110) mg/dL Calcium (8.4-10.5) mg/dL Total Bilirubin (0.2-1.3) mg/dL AST (17-59) U/L ALT (7-56) U/L Alkaline Phosphatase (38-126) U/L Total Protein (5.8-8.3) g/dL Albumin (3.0-4.8) g/dL Globulin gm/dL Albumin/Globulin Ratio (1.1-1.8) Procalcitonin (0.19-0.49) NG/ML Blood Type Antibody Screen Crossmatch BBK History Checked 07/24/18 07/24/18 07/24/18 Range/Units 04:04 03:30 02:38 WBC (4.5-11.0) 10^3/uL RBC (3.5-6.1) 10^6/uL Hgb (14.0-18.0) g/dL Hct (42.0-52.0) % MCV (80.0-105.0) fl MCH (25.0-35.0) pg MCHC (31.0-37.0) g/dl RDW (11.5-14.5) % Plt Count (120.0-450.0) 10^3/uL Manual Plt Count (120-450) K/mm3 Gran % (50.0-68.0) % Lymph % (Auto) (22.0-35.0) % [place] % (Auto) (1.0-6.0) % Eos % (Auto) (1.5-5.0) % Baso % (Auto) (0.0-3.0) % Gran # (1.4-6.5) Lymph # (Auto) (1.2-3.4) [place] # (Auto) (0.1-0.6) Eos # (Auto) (0.0-0.7) Baso # (Auto) (0.0-2.0) K/mm3 PT (9.4-12.5) SECONDS INR pCO2 (35-45) mm/Hg pO2 (80-100) mm/Hg HCO3 (21-28) mmol/L ABG pH (7.35-7.45) ABG Total CO2 (22-28) mmol.L ABG O2 Saturation (95-98) % ABG O2 Content (15-23) ML/dl ABG Base Excess (-2.0-3.0) mmol/L ABG Hemoglobin (11.7-17.4) g/dL ABG Carboxyhemoglobin (0.5-1.5) % POC ABG HHb (Measured) (0-5) % ABG Methemoglobin (0.0-3.0) % ABG O2 Capacity (16-24) mL/dl Hgb O2 Saturation (95.0-98.0) % FiO2 % Sodium (132-148) mmol/L Potassium (3.6-5.0) mmol/L Chloride (98-107) mmol/L Carbon Dioxide (21-33) mmol/L Anion Gap (10-20) BUN (7-21) mg/dL Creatinine (0.8-1.5) mg/dl Est GFR ( Amer) Est GFR (Non-Af Amer) POC Glucose (mg/dL) 93 96 110 (65-110) mg/dL Random Glucose (70-110) mg/dL Calcium (8.4-10.5) mg/dL Total Bilirubin (0.2-1.3) mg/dL AST (17-59) U/L ALT (7-56) U/L Alkaline Phosphatase (38-126) U/L Total Protein (5.8-8.3) g/dL Albumin (3.0-4.8) g/dL Globulin gm/dL Albumin/Globulin Ratio (1.1-1.8) Procalcitonin (0.19-0.49) NG/ML Blood Type Antibody Screen Crossmatch BBK History Checked 07/24/18 07/24/18 07/24/18 Range/Units 01:11 00:25 00:09 WBC (4.5-11.0) 10^3/uL RBC (3.5-6.1) 10^6/uL Hgb (14.0-18.0) g/dL Hct (42.0-52.0) % MCV (80.0-105.0) fl MCH (25.0-35.0) pg MCHC (31.0-37.0) g/dl RDW (11.5-14.5) % Plt Count (120.0-450.0) 10^3/uL Manual Plt Count (120-450) K/mm3 Gran % (50.0-68.0) % Lymph % (Auto) (22.0-35.0) % [place] % (Auto) (1.0-6.0) % Eos % (Auto) (1.5-5.0) % Baso % (Auto) (0.0-3.0) % Gran # (1.4-6.5) Lymph # (Auto) (1.2-3.4) [place] # (Auto) (0.1-0.6) Eos # (Auto) (0.0-0.7) Baso # (Auto) (0.0-2.0) K/mm3 PT (9.4-12.5) SECONDS INR pCO2 (35-45) mm/Hg pO2 (80-100) mm/Hg HCO3 (21-28) mmol/L ABG pH (7.35-7.45) ABG Total CO2 (22-28) mmol.L ABG O2 Saturation (95-98) % ABG O2 Content (15-23) ML/dl ABG Base Excess (-2.0-3.0) mmol/L ABG Hemoglobin (11.7-17.4) g/dL ABG Carboxyhemoglobin (0.5-1.5) % POC ABG HHb (Measured) (0-5) % ABG Methemoglobin (0.0-3.0) % ABG O2 Capacity (16-24) mL/dl Hgb O2 Saturation (95.0-98.0) % FiO2 % Sodium 155 H (132-148) mmol/L Potassium (3.6-5.0) mmol/L Chloride (98-107) mmol/L Carbon Dioxide (21-33) mmol/L Anion Gap (10-20) BUN (7-21) mg/dL Creatinine (0.8-1.5) mg/dl Est GFR ( Amer) Est GFR (Non-Af Amer) POC Glucose (mg/dL) 132 H 130 H (65-110) mg/dL Random Glucose (70-110) mg/dL Calcium (8.4-10.5) mg/dL Total Bilirubin (0.2-1.3) mg/dL AST (17-59) U/L ALT (7-56) U/L Alkaline Phosphatase (38-126) U/L Total Protein (5.8-8.3) g/dL Albumin (3.0-4.8) g/dL Globulin gm/dL Albumin/Globulin Ratio (1.1-1.8) Procalcitonin (0.19-0.49) NG/ML Blood Type Antibody Screen Crossmatch BBK History Checked 07/23/18 07/23/18 07/23/18 Range/Units 23:17 21:42 21:02 WBC (4.5-11.0) 10^3/uL RBC (3.5-6.1) 10^6/uL Hgb (14.0-18.0) g/dL Hct (42.0-52.0) % MCV (80.0-105.0) fl MCH (25.0-35.0) pg MCHC (31.0-37.0) g/dl RDW (11.5-14.5) % Plt Count (120.0-450.0) 10^3/uL Manual Plt Count (120-450) K/mm3 Gran % (50.0-68.0) % Lymph % (Auto) (22.0-35.0) % [place] % (Auto) (1.0-6.0) % Eos % (Auto) (1.5-5.0) % Baso % (Auto) (0.0-3.0) % Gran # (1.4-6.5) Lymph # (Auto) (1.2-3.4) [place] # (Auto) (0.1-0.6) Eos # (Auto) (0.0-0.7) Baso # (Auto) (0.0-2.0) K/mm3 PT (9.4-12.5) SECONDS INR pCO2 (35-45) mm/Hg pO2 (80-100) mm/Hg HCO3 (21-28) mmol/L ABG pH (7.35-7.45) ABG Total CO2 (22-28) mmol.L ABG O2 Saturation (95-98) % ABG O2 Content (15-23) ML/dl ABG Base Excess (-2.0-3.0) mmol/L ABG Hemoglobin (11.7-17.4) g/dL ABG Carboxyhemoglobin (0.5-1.5) % POC ABG HHb (Measured) (0-5) % ABG Methemoglobin (0.0-3.0) % ABG O2 Capacity (16-24) mL/dl Hgb O2 Saturation (95.0-98.0) % FiO2 % Sodium (132-148) mmol/L Potassium (3.6-5.0) mmol/L Chloride (98-107) mmol/L Carbon Dioxide (21-33) mmol/L Anion Gap (10-20) BUN (7-21) mg/dL Creatinine (0.8-1.5) mg/dl Est GFR ( Amer) Est GFR (Non-Af Amer) POC Glucose (mg/dL) 199 H 264 H 371 H (65-110) mg/dL Random Glucose (70-110) mg/dL Calcium (8.4-10.5) mg/dL Total Bilirubin (0.2-1.3) mg/dL AST (17-59) U/L ALT (7-56) U/L Alkaline Phosphatase (38-126) U/L Total Protein (5.8-8.3) g/dL Albumin (3.0-4.8) g/dL Globulin gm/dL Albumin/Globulin Ratio (1.1-1.8) Procalcitonin (0.19-0.49) NG/ML Blood Type Antibody Screen Crossmatch BBK History Checked 07/23/18 07/23/18 07/23/18 Range/Units 20:40 20:40 20:08 WBC 12.2 H (4.5-11.0) 10^3/uL RBC 2.85 L (3.5-6.1) 10^6/uL Hgb 7.6 L (14.0-18.0) g/dL Hct 25.3 L (42.0-52.0) % MCV 88.8 (80.0-105.0) fl MCH 26.7 (25.0-35.0) pg MCHC 30.0 L (31.0-37.0) g/dl RDW 16.6 H (11.5-14.5) % Plt Count 12 L* (120.0-450.0) 10^3/uL Manual Plt Count (120-450) K/mm3 Gran % 97.3 H (50.0-68.0) % Lymph % (Auto) 2.2 L (22.0-35.0) % [place] % (Auto) 0.5 L (1.0-6.0) % Eos % (Auto) 0.0 L (1.5-5.0) % Baso % (Auto) 0.0 (0.0-3.0) % Gran # 11.85 H (1.4-6.5) Lymph # (Auto) 0.3 L (1.2-3.4) [place] # (Auto) 0.1 (0.1-0.6) Eos # (Auto) 0.0 (0.0-0.7) Baso # (Auto) 0.00 (0.0-2.0) K/mm3 PT (9.4-12.5) SECONDS INR pCO2 (35-45) mm/Hg pO2 (80-100) mm/Hg HCO3 (21-28) mmol/L ABG pH (7.35-7.45) ABG Total CO2 (22-28) mmol.L ABG O2 Saturation (95-98) % ABG O2 Content (15-23) ML/dl ABG Base Excess (-2.0-3.0) mmol/L ABG Hemoglobin (11.7-17.4) g/dL ABG Carboxyhemoglobin (0.5-1.5) % POC ABG HHb (Measured) (0-5) % ABG Methemoglobin (0.0-3.0) % ABG O2 Capacity (16-24) mL/dl Hgb O2 Saturation (95.0-98.0) % FiO2 % Sodium 155 H (132-148) mmol/L Potassium 3.1 L (3.6-5.0) mmol/L Chloride 128 H (98-107) mmol/L Carbon Dioxide 20 L (21-33) mmol/L Anion Gap 10 (10-20) BUN 113 H (7-21) mg/dL Creatinine 2.1 H (0.8-1.5) mg/dl Est GFR ( Amer) 39 Est GFR (Non-Af Amer) 32 POC Glucose (mg/dL) 396 H (65-110) mg/dL Random Glucose 318 H* D (70-110) mg/dL Calcium 8.0 L (8.4-10.5) mg/dL Total Bilirubin 0.7 (0.2-1.3) mg/dL AST 39 (17-59) U/L ALT 66 H (7-56) U/L Alkaline Phosphatase 79 (38-126) U/L Total Protein 5.4 L (5.8-8.3) g/dL Albumin 2.4 L (3.0-4.8) g/dL Globulin 3.0 gm/dL Albumin/Globulin Ratio 0.8 L (1.1-1.8) Procalcitonin (0.19-0.49) NG/ML Blood Type Antibody Screen Crossmatch BBK History Checked 01/17/19 01/17/19 01/17/19 Range/Units 19:06 17:59 17:02 WBC (4.5-11.0) 10^3/uL RBC (3.5-6.1) 10^6/uL Hgb (14.0-18.0) g/dL Hct (42.0-52.0) % MCV (80.0-105.0) fl MCH (25.0-35.0) pg MCHC (31.0-37.0) g/dl RDW (11.5-14.5) % Plt Count (120.0-450.0) 10^3/uL Manual Plt Count (120-450) K/mm3 Gran % (50.0-68.0) % Lymph % (Auto) (22.0-35.0) % [place] % (Auto) (1.0-6.0) % Eos % (Auto) (1.5-5.0) % Baso % (Auto) (0.0-3.0) % Gran # (1.4-6.5) Lymph # (Auto) (1.2-3.4) [place] # (Auto) (0.1-0.6) Eos # (Auto) (0.0-0.7) Baso # (Auto) (0.0-2.0) K/mm3 PT (9.4-12.5) SECONDS INR pCO2 (35-45) mm/Hg pO2 (80-100) mm/Hg HCO3 (21-28) mmol/L ABG pH (7.35-7.45) ABG Total CO2 (22-28) mmol.L ABG O2 Saturation (95-98) % ABG O2 Content (15-23) ML/dl ABG Base Excess (-2.0-3.0) mmol/L ABG Hemoglobin (11.7-17.4) g/dL ABG Carboxyhemoglobin (0.5-1.5) % POC ABG HHb (Measured) (0-5) % ABG Methemoglobin (0.0-3.0) % ABG O2 Capacity (16-24) mL/dl Hgb O2 Saturation (95.0-98.0) % FiO2 % Sodium (132-148) mmol/L Potassium (3.6-5.0) mmol/L Chloride (98-107) mmol/L Carbon Dioxide (21-33) mmol/L Anion Gap (10-20) BUN (7-21) mg/dL Creatinine (0.8-1.5) mg/dl Est GFR ( Amer) Est GFR (Non-Af Amer) POC Glucose (mg/dL) 400 H* 403 H* 381 H (65-110) mg/dL Random Glucose (70-110) mg/dL Calcium (8.4-10.5) mg/dL Total Bilirubin (0.2-1.3) mg/dL AST (17-59) U/L ALT (7-56) U/L Alkaline Phosphatase (38-126) U/L Total Protein (5.8-8.3) g/dL Albumin (3.0-4.8) g/dL Globulin gm/dL Albumin/Globulin Ratio (1.1-1.8) Procalcitonin (0.19-0.49) NG/ML Blood Type Antibody Screen Crossmatch BBK History Checked 07/23/18 07/23/18 07/23/18 Range/Units 15:54 11:50 11:16 WBC (4.5-11.0) 10^3/uL RBC (3.5-6.1) 10^6/uL Hgb (14.0-18.0) g/dL Hct (42.0-52.0) % MCV (80.0-105.0) fl MCH (25.0-35.0) pg MCHC (31.0-37.0) g/dl RDW (11.5-14.5) % Plt Count (120.0-450.0) 10^3/uL Manual Plt Count (120-450) K/mm3 Gran % (50.0-68.0) % Lymph % (Auto) (22.0-35.0) % [place] % (Auto) (1.0-6.0) % Eos % (Auto) (1.5-5.0) % Baso % (Auto) (0.0-3.0) % Gran # (1.4-6.5) Lymph # (Auto) (1.2-3.4) [place] # (Auto) (0.1-0.6) Eos # (Auto) (0.0-0.7) Baso # (Auto) (0.0-2.0) K/mm3 PT (9.4-12.5) SECONDS INR pCO2 (35-45) mm/Hg pO2 (80-100) mm/Hg HCO3 (21-28) mmol/L ABG pH (7.35-7.45) ABG Total CO2 (22-28) mmol.L ABG O2 Saturation (95-98) % ABG O2 Content (15-23) ML/dl ABG Base Excess (-2.0-3.0) mmol/L ABG Hemoglobin (11.7-17.4) g/dL ABG Carboxyhemoglobin (0.5-1.5) % POC ABG HHb (Measured) (0-5) % ABG Methemoglobin (0.0-3.0) % ABG O2 Capacity (16-24) mL/dl Hgb O2 Saturation (95.0-98.0) % FiO2 % Sodium 148 (132-148) mmol/L Potassium 3.5 L (3.6-5.0) mmol/L Chloride 124 H (98-107) mmol/L Carbon Dioxide 19 L (21-33) mmol/L Anion Gap 7 L (10-20) BUN > 120 H* (7-21) mg/dL Creatinine 1.8 H (0.8-1.5) mg/dl Est GFR ( Amer) 46 Est GFR (Non-Af Amer) 38 POC Glucose (mg/dL) 391 H 247 H (65-110) mg/dL Random Glucose 225 H (70-110) mg/dL Calcium 7.0 L (8.4-10.5) mg/dL Total Bilirubin (0.2-1.3) mg/dL AST (17-59) U/L ALT (7-56) U/L Alkaline Phosphatase (38-126) U/L Total Protein (5.8-8.3) g/dL Albumin (3.0-4.8) g/dL Globulin gm/dL Albumin/Globulin Ratio (1.1-1.8) Procalcitonin (0.19-0.49) NG/ML Blood Type Antibody Screen Crossmatch BBK History Checked 07/23/18 07/22/18 Range/Units 11:10 19:53 WBC (4.5-11.0) 10^3/uL RBC (3.5-6.1) 10^6/uL Hgb (14.0-18.0) g/dL Hct (42.0-52.0) % MCV (80.0-105.0) fl MCH (25.0-35.0) pg MCHC (31.0-37.0) g/dl RDW (11.5-14.5) % Plt Count (120.0-450.0) 10^3/uL Manual Plt Count (120-450) K/mm3 Gran % (50.0-68.0) % Lymph % (Auto) (22.0-35.0) % [place] % (Auto) (1.0-6.0) % Eos % (Auto) (1.5-5.0) % Baso % (Auto) (0.0-3.0) % Gran # (1.4-6.5) Lymph # (Auto) (1.2-3.4) [place] # (Auto) (0.1-0.6) Eos # (Auto) (0.0-0.7) Baso # (Auto) (0.0-2.0) K/mm3 PT (9.4-12.5) SECONDS INR pCO2 (35-45) mm/Hg pO2 (80-100) mm/Hg HCO3 (21-28) mmol/L ABG pH (7.35-7.45) ABG Total CO2 (22-28) mmol.L ABG O2 Saturation (95-98) % ABG O2 Content (15-23) ML/dl ABG Base Excess (-2.0-3.0) mmol/L ABG Hemoglobin (11.7-17.4) g/dL ABG Carboxyhemoglobin (0.5-1.5) % POC ABG HHb (Measured) (0-5) % ABG Methemoglobin (0.0-3.0) % ABG O2 Capacity (16-24) mL/dl Hgb O2 Saturation (95.0-98.0) % FiO2 % Sodium (132-148) mmol/L Potassium (3.6-5.0) mmol/L Chloride (98-107) mmol/L Carbon Dioxide (21-33) mmol/L Anion Gap (10-20) BUN (7-21) mg/dL Creatinine (0.8-1.5) mg/dl Est GFR ( Amer) Est GFR (Non-Af Amer) POC Glucose (mg/dL) (65-110) mg/dL Random Glucose (70-110) mg/dL Calcium (8.4-10.5) mg/dL Total Bilirubin (0.2-1.3) mg/dL AST (17-59) U/L ALT (7-56) U/L Alkaline Phosphatase (38-126) U/L Total Protein (5.8-8.3) g/dL Albumin (3.0-4.8) g/dL Globulin gm/dL Albumin/Globulin Ratio (1.1-1.8) Procalcitonin 0.17 L (0.19-0.49) NG/ML Blood Type O POSITIVE Antibody Screen Negative Crossmatch See Detail BBK History Checked Patient has bt Laboratory Results - last 24 hr 07/22/18 07/23/18 07/23/18 19:53 11:10 11:16 WBC RBC Hgb Hct MCV MCH MCHC RDW Plt Count Manual Plt Count Gran % Lymph % (Auto) [place] % (Auto) Eos % (Auto) Baso % (Auto) Gran # Lymph # (Auto) [place] # (Auto) Eos # (Auto) Baso # (Auto) PT INR pCO2 pO2 HCO3 ABG pH ABG Total CO2 ABG O2 Saturation ABG O2 Content ABG Base Excess ABG Hemoglobin ABG Carboxyhemoglobin POC ABG HHb (Measured) ABG Methemoglobin ABG O2 Capacity Hgb O2 Saturation FiO2 Sodium Potassium Chloride Carbon Dioxide Anion Gap BUN Creatinine Est GFR ( Amer) Est GFR (Non-Af Amer) POC Glucose (mg/dL) 247 H Random Glucose Calcium Total Bilirubin AST ALT Alkaline Phosphatase Total Protein Albumin Globulin Albumin/Globulin Ratio Procalcitonin 0.17 L Blood Type O POSITIVE Antibody Screen Negative Crossmatch See Detail BBK History Checked Patient has bt 07/23/18 07/23/18 07/23/18 11:50 15:54 17:02 WBC RBC Hgb Hct MCV MCH MCHC RDW Plt Count Manual Plt Count Gran % Lymph % (Auto) [place] % (Auto) Eos % (Auto) Baso % (Auto) Gran # Lymph # (Auto) [place] # (Auto) Eos # (Auto) Baso # (Auto) PT INR pCO2 pO2 HCO3 ABG pH ABG Total CO2 ABG O2 Saturation ABG O2 Content ABG Base Excess ABG Hemoglobin ABG Carboxyhemoglobin POC ABG HHb (Measured) ABG Methemoglobin ABG O2 Capacity Hgb O2 Saturation FiO2 Sodium 148 Potassium 3.5 L Chloride 124 H Carbon Dioxide 19 L Anion Gap 7 L BUN > 120 H* Creatinine 1.8 H Est GFR ( Amer) 46 Est GFR (Non-Af Amer) 38 POC Glucose (mg/dL) 391 H 381 H Random Glucose 225 H Calcium 7.0 L Total Bilirubin AST ALT Alkaline Phosphatase Total Protein Albumin Globulin Albumin/Globulin Ratio Procalcitonin Blood Type Antibody Screen Crossmatch BBK History Checked 07/23/18 07/23/18 07/23/18 17:59 19:06 20:08 WBC RBC Hgb Hct MCV MCH MCHC RDW Plt Count Manual Plt Count Gran % Lymph % (Auto) [place] % (Auto) Eos % (Auto) Baso % (Auto) Gran # Lymph # (Auto) [place] # (Auto) Eos # (Auto) Baso # (Auto) PT INR pCO2 pO2 HCO3 ABG pH ABG Total CO2 ABG O2 Saturation ABG O2 Content ABG Base Excess ABG Hemoglobin ABG Carboxyhemoglobin POC ABG HHb (Measured) ABG Methemoglobin ABG O2 Capacity Hgb O2 Saturation FiO2 Sodium Potassium Chloride Carbon Dioxide Anion Gap BUN Creatinine Est GFR ( Amer) Est GFR (Non-Af Amer) POC Glucose (mg/dL) 403 H* 400 H* 396 H Random Glucose Calcium Total Bilirubin AST ALT Alkaline Phosphatase Total Protein Albumin Globulin Albumin/Globulin Ratio Procalcitonin Blood Type Antibody Screen Crossmatch BBK History Checked 07/23/18 07/23/18 07/23/18 20:40 20:40 21:02 WBC 12.2 H RBC 2.85 L Hgb 7.6 L Hct 25.3 L MCV 88.8 MCH 26.7 MCHC 30.0 L RDW 16.6 H Plt Count 12 L* Manual Plt Count Gran % 97.3 H Lymph % (Auto) 2.2 L [place] % (Auto) 0.5 L Eos % (Auto) 0.0 L Baso % (Auto) 0.0 Gran # 11.85 H Lymph # (Auto) 0.3 L [place] # (Auto) 0.1 Eos # (Auto) 0.0 Baso # (Auto) 0.00 PT INR pCO2 pO2 HCO3 ABG pH ABG Total CO2 ABG O2 Saturation ABG O2 Content ABG Base Excess ABG Hemoglobin ABG Carboxyhemoglobin POC ABG HHb (Measured) ABG Methemoglobin ABG O2 Capacity Hgb O2 Saturation FiO2 Sodium 155 H Potassium 3.1 L Chloride 128 H Carbon Dioxide 20 L Anion Gap 10 BUN 113 H Creatinine 2.1 H Est GFR ( Amer) 39 Est GFR (Non-Af Amer) 32 POC Glucose (mg/dL) 371 H Random Glucose 318 H* D Calcium 8.0 L Total Bilirubin 0.7 AST 39 ALT 66 H Alkaline Phosphatase 79 Total Protein 5.4 L Albumin 2.4 L Globulin 3.0 Albumin/Globulin Ratio 0.8 L Procalcitonin Blood Type Antibody Screen Crossmatch BBK History Checked 07/23/18 07/23/18 07/24/18 21:42 23:17 00:09 WBC RBC Hgb Hct MCV MCH MCHC RDW Plt Count Manual Plt Count Gran % Lymph % (Auto) [place] % (Auto) Eos % (Auto) Baso % (Auto) Gran # Lymph # (Auto) [place] # (Auto) Eos # (Auto) Baso # (Auto) PT INR pCO2 pO2 HCO3 ABG pH ABG Total CO2 ABG O2 Saturation ABG O2 Content ABG Base Excess ABG Hemoglobin ABG Carboxyhemoglobin POC ABG HHb (Measured) ABG Methemoglobin ABG O2 Capacity Hgb O2 Saturation FiO2 Sodium Potassium Chloride Carbon Dioxide Anion Gap BUN Creatinine Est GFR ( Amer) Est GFR (Non-Af Amer) POC Glucose (mg/dL) 264 H 199 H 130 H Random Glucose Calcium Total Bilirubin AST ALT Alkaline Phosphatase Total Protein Albumin Globulin Albumin/Globulin Ratio Procalcitonin Blood Type Antibody Screen Crossmatch BBK History Checked 07/24/18 07/24/18 07/24/18 00:25 01:11 02:38 WBC RBC Hgb Hct MCV MCH MCHC RDW Plt Count Manual Plt Count Gran % Lymph % (Auto) [place] % (Auto) Eos % (Auto) Baso % (Auto) Gran # Lymph # (Auto) [place] # (Auto) Eos # (Auto) Baso # (Auto) PT INR pCO2 pO2 HCO3 ABG pH ABG Total CO2 ABG O2 Saturation ABG O2 Content ABG Base Excess ABG Hemoglobin ABG Carboxyhemoglobin POC ABG HHb (Measured) ABG Methemoglobin ABG O2 Capacity Hgb O2 Saturation FiO2 Sodium 155 H Potassium Chloride Carbon Dioxide Anion Gap BUN Creatinine Est GFR ( Amer) Est GFR (Non-Af Amer) POC Glucose (mg/dL) 132 H 110 Random Glucose Calcium Total Bilirubin AST ALT Alkaline Phosphatase Total Protein Albumin Globulin Albumin/Globulin Ratio Procalcitonin Blood Type Antibody Screen Crossmatch BBK History Checked 07/24/18 07/24/18 07/24/18 03:30 04:04 05:20 WBC RBC Hgb Hct MCV MCH MCHC RDW Plt Count Manual Plt Count Gran % Lymph % (Auto) [place] % (Auto) Eos % (Auto) Baso % (Auto) Gran # Lymph # (Auto) [place] # (Auto) Eos # (Auto) Baso # (Auto) PT INR pCO2 30 L pO2 138.0 H HCO3 19.5 L ABG pH 7.42 ABG Total CO2 20.4 L ABG O2 Saturation 99.5 H ABG O2 Content 11.6 L ABG Base Excess -4.3 L ABG Hemoglobin 8.3 L ABG Carboxyhemoglobin 1.6 H POC ABG HHb (Measured) 0.5 ABG Methemoglobin 1.2 ABG O2 Capacity 11.7 L Hgb O2 Saturation 96.8 FiO2 40.0 Sodium Potassium Chloride Carbon Dioxide Anion Gap BUN Creatinine Est GFR ( Amer) Est GFR (Non-Af Amer) POC Glucose (mg/dL) 96 93 Random Glucose Calcium Total Bilirubin AST ALT Alkaline Phosphatase Total Protein Albumin Globulin Albumin/Globulin Ratio Procalcitonin Blood Type Antibody Screen Crossmatch BBK History Checked 07/24/18 07/24/18 07/24/18 05:23 06:10 06:10 WBC 10.4 RBC 2.92 L Hgb 7.9 L Hct 25.7 L MCV 88.0 MCH 27.1 MCHC 30.7 L RDW 16.5 H Plt Count 9 L* Manual Plt Count 17 L* Gran % 94.9 H Lymph % (Auto) 3.4 L [place] % (Auto) 1.7 Eos % (Auto) 0.0 L Baso % (Auto) 0.0 Gran # 9.90 H Lymph # (Auto) 0.4 L [place] # (Auto) 0.2 Eos # (Auto) 0.0 Baso # (Auto) 0.00 PT INR pCO2 pO2 HCO3 ABG pH ABG Total CO2 ABG O2 Saturation ABG O2 Content ABG Base Excess ABG Hemoglobin ABG Carboxyhemoglobin POC ABG HHb (Measured) ABG Methemoglobin ABG O2 Capacity Hgb O2 Saturation FiO2 Sodium 155 H Potassium 3.7 Chloride 130 H Carbon Dioxide 21 Anion Gap 7 L BUN 113 H Creatinine 2.2 H Est GFR ( Amer) 37 Est GFR (Non-Af Amer) 30 POC Glucose (mg/dL) 128 H Random Glucose 192 H Calcium 7.8 L Total Bilirubin 0.7 AST 51 ALT 68 H Alkaline Phosphatase 84 Total Protein 5.4 L Albumin 2.4 L Globulin 3.0 Albumin/Globulin Ratio 0.8 L Procalcitonin Blood Type Antibody Screen Crossmatch BBK History Checked 07/24/18 07/24/18 07/24/18 06:10 06:16 07:07 WBC RBC Hgb Hct MCV MCH MCHC RDW Plt Count Manual Plt Count Gran % Lymph % (Auto) [place] % (Auto) Eos % (Auto) Baso % (Auto) Gran # Lymph # (Auto) [place] # (Auto) Eos # (Auto) Baso # (Auto) PT 12.5 INR 1.09 pCO2 pO2 HCO3 ABG pH ABG Total CO2 ABG O2 Saturation ABG O2 Content ABG Base Excess ABG Hemoglobin ABG Carboxyhemoglobin POC ABG HHb (Measured) ABG Methemoglobin ABG O2 Capacity Hgb O2 Saturation FiO2 Sodium Potassium Chloride Carbon Dioxide Anion Gap BUN Creatinine Est GFR ( Amer) Est GFR (Non-Af Amer) POC Glucose (mg/dL) 165 H 233 H Random Glucose Calcium Total Bilirubin AST ALT Alkaline Phosphatase Total Protein Albumin Globulin Albumin/Globulin Ratio Procalcitonin Blood Type Antibody Screen Crossmatch BBK History Checked 07/24/18 07/24/18 09:10 10:18 WBC RBC Hgb Hct MCV MCH MCHC RDW Plt Count Manual Plt Count Gran % Lymph % (Auto) [place] % (Auto) Eos % (Auto) Baso % (Auto) Gran # Lymph # (Auto) [place] # (Auto) Eos # (Auto) Baso # (Auto) PT INR pCO2 pO2 HCO3 ABG pH ABG Total CO2 ABG O2 Saturation ABG O2 Content ABG Base Excess ABG Hemoglobin ABG Carboxyhemoglobin POC ABG HHb (Measured) ABG Methemoglobin ABG O2 Capacity Hgb O2 Saturation FiO2 Sodium Potassium Chloride Carbon Dioxide Anion Gap BUN Creatinine Est GFR ( Amer) Est GFR (Non-Af Amer) POC Glucose (mg/dL) 365 H 379 H Random Glucose Calcium Total Bilirubin AST ALT Alkaline Phosphatase Total Protein Albumin Globulin Albumin/Globulin Ratio Procalcitonin Blood Type Antibody Screen Crossmatch BBK History Checked Radiology Impressions: Radiology Impressions Chest X-Ray 07/24/18 06:00 IMPRESSION: No active disease. Fingerstick Blood Sugar Results: 365 Critical Care Progress Note - Nutrition Nutrition: Nutrition Category Date Time Status NPO Diet [DIET] Diets 07/06/18 Breakfast Ordered Assessment/Plan - Assessment and Plan (Free Text) Assessment: 62 y/o male with PMHx of COPD, active smoker 1pk per day, HTN, DM, PVD, presents with ER with 2 day history of fever, chills, associated with cough that is non- productive. Patient was initially started on heparin drip given elevated troponin, and markedly diminished EF. Hep drip currently held secondary to thrombocytopenia. Initially paralyzed on Nimbex after overbreathing ventilator. Extubated last week, ARDS resolved and s/p merrem and doxycycline antibiotic therapy for pneumonia. Awaiting LTAC facility approval. Plan: Neuro: Critical Illness Polyneuropathy - approved for LTAC placement, awaiting facility approval - intubated on 07/22/18 due to not protecting airway and ABG today showed pH of 7.13 and PCO2 of 61 - sedated on propofol drip - Neuro consult - Dr. Harvinder Mcdaniels - Poor motor function likely from critical illness polyneuropathy - Results of EEG 07/10/18: moderate nonspecific diffuse disturbance of cortical activity, nonspecific diffuse fernandez matter dysfunction, no seizures, not in status epilepticus - 07/13/18 MRI brain without contrast negative for acute abnormalitie, 07/10/18 CT head without contrast negative Pulmology S/p intubation on 07/22/18 -unable to protect airway -ABG is improved post intubation on 07/22/18 with pH of 7.31 and pCO2 of 37. Sedated on propofol -ABG on 07/24/09 shows pH of 7.41, pCO2 30 and pO2 of 138 CAP and Flu A positive - completed tamiflu and merrem/doxycycline treatment - CXR 07/22 shows new right sided infiltrate, today is day 3 merrem - Duonebs seema q6 and PRN q2 - Urine Lg and Strep negative - Procal is 0.16 on 07/19 from 0.6 on 07/14 - ID eval: Dr. Fernandes, Pulm consulted - Dr. Burr Cardiology NSTEMI -07/03 Troponins elevated 0.48, 0.67, 0.67 - Cardiology consulted - Dr. Saxena. Cardiac cath on hold due to persistent thrombocytopenia. Hold Lasix per cardio. - Dig level 07/20 is 0.9 WNL - Hold IVF d/t poor EF, Hold Heparin drip HFrEF - BNP 22434 on 07/03 - 07/03/18 echo report shows EF 14.2%, mildly dilated LV, systolic function severely impaired, akinetic septum, TR and pulm HTN -continue digoxin 0.125mg IV, cardizem 60mg TID for afib Heme Chronic Thrombocytopenia, ITP - Received previous transfusions as outpatient - [facility] platelets are 14 today, transfuse as per heme/onc - total 6 unit PLT transfused. IV gammaglobulin 5 day course completed on 07/11/18 - Will transfuse if <20 or actively bleeding per Hem recs - Will hold off on DVT chemoprophylaxis at this time, may resume if platelets >50 per heme/onc - Hem consult placed- Dr. Estevez - Negative IVONE and ANCA studies, ESR 45, HIT antibody negative Endo Uncontrolled DM - continue insulin drip, algorithm 2. - Hgb a1c 8.2, accuchecks ACHS - Diabetic education GI - OG tube in place, hold tube feedings for now due to uncontrolled sugars, electrolytes - swallow eval 07/17/18: Pt. poorly responsive, with hyper gag reflex. No response to oral stimulation or spoon/straw tip. - Shock liver resolved - Hep panel negative - 07/03/18 RUQ U/S shows hepatosplenomegaly - pepcid for PPX Nephro OG on HD - BUN/Cr is 113/2.2 today - continue D5 at 100cc/hr, - sodium is downtrending - Strict Is and Os, oliveros in place - now off HD - Tolerated first HD on 07/07/18 - Nephro consult - recs appreciated. Per nephro, no hemodialysis at this time - Continue water flushes per Nephro recs in light of low EF. - F/u nephro recs to consider repeating urine electrolytes ID RLL Pneumonia - afebrile overnight, WBC downtrending today - s/p treatment of flu and pna with tamiflu and merrem/doxy - day 3 merrem for new right sided infliltrate on CXR - Ammonia level <9 - ID eval: Dr. Fernandes - Repeat blood cx neg after 5 days, repeat UA negative, repeat sputum cx growing moderate amount of yeast. Dispo: Approved for LTAC, awaiting family choice of LTAC facility after medical clearance Patient seen and case discussed with attending, Dr. Pineda <Giovanny Pineda - Last Filed: 07/24/18 12:05> CCU Objective - Vital Signs / Intake & Output Vital Signs (Last 4 hours): Vital Signs Temp Pulse BP Pulse Ox 07/24/18 11:15 99.3 F 75 120/67 100 07/24/18 11:00 99.3 F 77 133/65 100 07/24/18 10:45 99.3 F 77 130/65 100 07/24/18 10:30 99.3 F 76 137/66 100 07/24/18 10:16 76 129/62 07/24/18 10:15 99.3 F 77 120/68 100 07/24/18 10:00 99.1 F 76 129/62 100 07/24/18 09:45 99.1 F 80 140/74 100 07/24/18 09:30 99.1 F 74 125/63 100 07/24/18 09:15 99.1 F 78 129/55 L 99 07/24/18 09:00 99.0 F 74 136/66 100 07/24/18 08:45 99.0 F 75 144/67 97 07/24/18 08:30 99.0 F 71 141/68 100 07/24/18 08:15 99.0 F 71 139/62 100 Intake and Output (Last 8hrs): Intake & Output 07/23/18 07/24/18 07/24/18 22:59 06:59 14:59 Intake Total 2585 1622.75 130 Output Total 1250 1200 Balance 1335 422.75 130 Intake: IV 1301 832.75 130 IVF 910 585 antibiotics 200 50 insulin 32 91 propofol 59 59 Oral 0 Tube Feeding 330 690 TPN/PPN 0 Blood Product 534 0 Apheresis Plts Acda Lr 209 Irr Unit [id number] Red Blood Cells Cpd As1 325 Lr Unit [id number] Lipid 0 Albumin 0 Other 420 100 Red Blood Cells Cpd As1 20 Lr Unit [id number] Output: Gastric Amount 0 0 Stomach 0 0 Urine 1250 1200 Urethral (Oliver[place]) 1250 1200 Stool 0 Urine/Stool Mix 0 Emesis 0 0 Oral Regurgitation 0 Other 0 Other: # Voids Urethral ([place]) 0 # Bowel Movements 0 1 - Medications Active Medications: Active Medications Generic Name Dose Route Start Last Admin Trade Name Freq PRN Reason Stop Dose Admin Acetaminophen 650 mg 07/08/18 18:18 07/20/18 13:20 Tylenol 650mg/20.3ml Solution Ud PO 650 mg Q6H PRN Administration Fever 101F Albuterol/Ipratropium 3 ml 07/03/18 14:00 07/24/18 07:43 Duoneb 3 Mg/0.5 Mg (3 Ml) Ud IH 3 ml [id number] SEEMA Administration Albuterol/Ipratropium 3 ml 07/03/18 11:04 07/11/18 23:55 Duoneb 3 Mg/0.5 Mg (3 Ml) Ud IH 3 ml Q2H PRN Administration Shortness of Breath Digoxin 0.125 mg 07/13/18 14:00 07/23/18 16:07 Lanoxin IVP 0.125 mg 1400 SEEMA Administration Diltiazem HCl 60 mg 07/17/18 14:00 07/24/18 10:16 Cardizem PO 60 mg TID SEEMA Administration Famotidine 20 mg 07/24/18 11:15 Pepcid IVP Q12H SEEMA Dexamethasone 40 mg/ Sodium 60 mls @ 120 mls/hr 07/20/18 12:00 07/24/18 09:14 Chloride IV 120 mls/hr DAILY SEEMA Administration Propofol 1,000 mg in 100 mls @ 2.545 mls/hr 07/22/18 08:29 07/24/18 08:13 Diprivan IV 10 mcg/kg/min .Q24H PRN 5.089 mls/hr TITRATE PER MD ORDER Administration Protocol 5 MCG/KG/MIN Desmopressin Acetate 1 mcg/ 50.25 mls @ 100 mls/hr 07/22/18 18:00 07/24/18 09:28 Sodium Chloride IV 100 mls/hr BID SEEMA Administration Meropenem/Sodium Chloride 500 mg in 50 mls @ 100 mls/hr 07/22/18 18:15 07/24/18 09:13 Merrem Iv 500 Mg/Ns 50 Ml IVPB 07/29/18 18:16 100 mls/hr Q12 SEEMA Administration Protocol Dextrose 1,000 mls @ 100 mls/hr 07/24/18 02:51 07/24/18 06:50 Dextrose 5% In Water 1000 Ml IV 100 mls/hr .Q10H SEEMA Administration Insulin Human Regular 100 100 mls @ 15 mls/hr 07/24/18 08:24 07/24/18 11:27 units/ Sodium Chloride IV 12 units/hr .Q6H40M PRN 12 mls/hr TITRATE PER MD ORDER Titration Protocol 15 UNITS/HR Vancomycin HCl 1 gm in 250 mls @ 167 mls/hr 07/24/18 10:43 Vancomycin 1gm IVPB 07/24/18 12:12 STAT STA Protocol Insulin Detemir 30 unit 07/17/18 10:39 07/22/18 06:56 Levemir SC 30 units HS SEEMA Administration Vitamin A 1 applic 07/13/18 16:53 Vitamin A&D TP Q8 PRN Dry mouth - Patient Studies Lab Studies: Microbiology Studies 07/19/18 10:30 Blood Culture - Final Blood NO GROWTH AFTER 5 DAYS 07/19/18 10:55 Blood Culture - Final Blood NO GROWTH AFTER 5 DAYS Gram Stain - Final TEST NOT PERFORMED 07/23/18 13:20 Gram Stain - Final Sputum Sputum Culture - Preliminary Gram Negative Stanley 07/22/18 19:53 Blood Culture - Preliminary Blood-Venous NO GROWTH AFTER 24 HOURS 07/22/18 19:53 Blood Culture - Preliminary Blood-Venous NO GROWTH AFTER 24 HOURS Lab Studies 07/24/18 07/24/18 07/24/18 Range/Units 11:22 10:18 09:10 WBC (4.5-11.0) 10^3/uL RBC (3.5-6.1) 10^6/uL Hgb (14.0-18.0) g/dL Hct (42.0-52.0) % MCV (80.0-105.0) fl MCH (25.0-35.0) pg MCHC (31.0-37.0) g/dl RDW (11.5-14.5) % Plt Count (120.0-450.0) 10^3/uL Manual Plt Count (120-450) K/mm3 Gran % (50.0-68.0) % Lymph % (Auto) (22.0-35.0) % [place] % (Auto) (1.0-6.0) % Eos % (Auto) (1.5-5.0) % Baso % (Auto) (0.0-3.0) % Gran # (1.4-6.5) Lymph # (Auto) (1.2-3.4) [place] # (Auto) (0.1-0.6) Eos # (Auto) (0.0-0.7) Baso # (Auto) (0.0-2.0) K/mm3 PT (9.4-12.5) SECONDS INR pCO2 (35-45) mm/Hg pO2 (80-100) mm/Hg HCO3 (21-28) mmol/L ABG pH (7.35-7.45) ABG Total CO2 (22-28) mmol.L ABG O2 Saturation (95-98) % ABG O2 Content (15-23) ML/dl ABG Base Excess (-2.0-3.0) mmol/L ABG Hemoglobin (11.7-17.4) g/dL ABG Carboxyhemoglobin (0.5-1.5) % POC ABG HHb (Measured) (0-5) % ABG Methemoglobin (0.0-3.0) % ABG O2 Capacity (16-24) mL/dl Hgb O2 Saturation (95.0-98.0) % FiO2 % Sodium (132-148) mmol/L Potassium (3.6-5.0) mmol/L Chloride (98-107) mmol/L Carbon Dioxide (21-33) mmol/L Anion Gap (10-20) BUN (7-21) mg/dL Creatinine (0.8-1.5) mg/dl Est GFR ( Amer) Est GFR (Non-Af Amer) POC Glucose (mg/dL) 438 H* 379 H 365 H (65-110) mg/dL Random Glucose (70-110) mg/dL Calcium (8.4-10.5) mg/dL Total Bilirubin (0.2-1.3) mg/dL AST (17-59) U/L ALT (7-56) U/L Alkaline Phosphatase (38-126) U/L Total Protein (5.8-8.3) g/dL Albumin (3.0-4.8) g/dL Globulin gm/dL Albumin/Globulin Ratio (1.1-1.8) Procalcitonin (0.19-0.49) NG/ML Blood Type Antibody Screen Crossmatch BBK History Checked 07/24/18 07/24/18 07/24/18 Range/Units 07:07 06:16 06:10 WBC (4.5-11.0) 10^3/uL RBC (3.5-6.1) 10^6/uL Hgb (14.0-18.0) g/dL Hct (42.0-52.0) % MCV (80.0-105.0) fl MCH (25.0-35.0) pg MCHC (31.0-37.0) g/dl RDW (11.5-14.5) % Plt Count (120.0-450.0) 10^3/uL Manual Plt Count (120-450) K/mm3 Gran % (50.0-68.0) % Lymph % (Auto) (22.0-35.0) % [place] % (Auto) (1.0-6.0) % Eos % (Auto) (1.5-5.0) % Baso % (Auto) (0.0-3.0) % Gran # (1.4-6.5) Lymph # (Auto) (1.2-3.4) [place] # (Auto) (0.1-0.6) Eos # (Auto) (0.0-0.7) Baso # (Auto) (0.0-2.0) K/mm3 PT 12.5 (9.4-12.5) SECONDS INR 1.09 pCO2 (35-45) mm/Hg pO2 (80-100) mm/Hg HCO3 (21-28) mmol/L ABG pH (7.35-7.45) ABG Total CO2 (22-28) mmol.L ABG O2 Saturation (95-98) % ABG O2 Content (15-23) ML/dl ABG Base Excess (-2.0-3.0) mmol/L ABG Hemoglobin (11.7-17.4) g/dL ABG Carboxyhemoglobin (0.5-1.5) % POC ABG HHb (Measured) (0-5) % ABG Methemoglobin (0.0-3.0) % ABG O2 Capacity (16-24) mL/dl Hgb O2 Saturation (95.0-98.0) % FiO2 % Sodium (132-148) mmol/L Potassium (3.6-5.0) mmol/L Chloride (98-107) mmol/L Carbon Dioxide (21-33) mmol/L Anion Gap (10-20) BUN (7-21) mg/dL Creatinine (0.8-1.5) mg/dl Est GFR ( Amer) Est GFR (Non-Af Amer) POC Glucose (mg/dL) 233 H 165 H (65-110) mg/dL Random Glucose (70-110) mg/dL Calcium (8.4-10.5) mg/dL Total Bilirubin (0.2-1.3) mg/dL AST (17-59) U/L ALT (7-56) U/L Alkaline Phosphatase (38-126) U/L Total Protein (5.8-8.3) g/dL Albumin (3.0-4.8) g/dL Globulin gm/dL Albumin/Globulin Ratio (1.1-1.8) Procalcitonin (0.19-0.49) NG/ML Blood Type Antibody Screen Crossmatch BBK History Checked 07/24/18 07/24/18 07/24/18 Range/Units 06:10 06:10 05:23 WBC 10.4 (4.5-11.0) 10^3/uL RBC 2.92 L (3.5-6.1) 10^6/uL Hgb 7.9 L (14.0-18.0) g/dL Hct 25.7 L (42.0-52.0) % MCV 88.0 (80.0-105.0) fl MCH 27.1 (25.0-35.0) pg MCHC 30.7 L (31.0-37.0) g/dl RDW 16.5 H (11.5-14.5) % Plt Count 9 L* (120.0-450.0) 10^3/uL Manual Plt Count 17 L* (120-450) K/mm3 Gran % 94.9 H (50.0-68.0) % Lymph % (Auto) 3.4 L (22.0-35.0) % [place] % (Auto) 1.7 (1.0-6.0) % Eos % (Auto) 0.0 L (1.5-5.0) % Baso % (Auto) 0.0 (0.0-3.0) % Gran # 9.90 H (1.4-6.5) Lymph # (Auto) 0.4 L (1.2-3.4) [place] # (Auto) 0.2 (0.1-0.6) Eos # (Auto) 0.0 (0.0-0.7) Baso # (Auto) 0.00 (0.0-2.0) K/mm3 PT (9.4-12.5) SECONDS INR pCO2 (35-45) mm/Hg pO2 (80-100) mm/Hg HCO3 (21-28) mmol/L ABG pH (7.35-7.45) ABG Total CO2 (22-28) mmol.L ABG O2 Saturation (95-98) % ABG O2 Content (15-23) ML/dl ABG Base Excess (-2.0-3.0) mmol/L ABG Hemoglobin (11.7-17.4) g/dL ABG Carboxyhemoglobin (0.5-1.5) % POC ABG HHb (Measured) (0-5) % ABG Methemoglobin (0.0-3.0) % ABG O2 Capacity (16-24) mL/dl Hgb O2 Saturation (95.0-98.0) % FiO2 % Sodium 155 H (132-148) mmol/L Potassium 3.7 (3.6-5.0) mmol/L Chloride 130 H (98-107) mmol/L Carbon Dioxide 21 (21-33) mmol/L Anion Gap 7 L (10-20) BUN 113 H (7-21) mg/dL Creatinine 2.2 H (0.8-1.5) mg/dl Est GFR ( Amer) 37 Est GFR (Non-Af Amer) 30 POC Glucose (mg/dL) 128 H (65-110) mg/dL Random Glucose 192 H (70-110) mg/dL Calcium 7.8 L (8.4-10.5) mg/dL Total Bilirubin 0.7 (0.2-1.3) mg/dL AST 51 (17-59) U/L ALT 68 H (7-56) U/L Alkaline Phosphatase 84 (38-126) U/L Total Protein 5.4 L (5.8-8.3) g/dL Albumin 2.4 L (3.0-4.8) g/dL Globulin 3.0 gm/dL Albumin/Globulin Ratio 0.8 L (1.1-1.8) Procalcitonin (0.19-0.49) NG/ML Blood Type Antibody Screen Crossmatch BBK History Checked 07/24/18 07/24/18 07/24/18 Range/Units 05:20 04:04 03:30 WBC (4.5-11.0) 10^3/uL RBC (3.5-6.1) 10^6/uL Hgb (14.0-18.0) g/dL Hct (42.0-52.0) % MCV (80.0-105.0) fl MCH (25.0-35.0) pg MCHC (31.0-37.0) g/dl RDW (11.5-14.5) % Plt Count (120.0-450.0) 10^3/uL Manual Plt Count (120-450) K/mm3 Gran % (50.0-68.0) % Lymph % (Auto) (22.0-35.0) % [place] % (Auto) (1.0-6.0) % Eos % (Auto) (1.5-5.0) % Baso % (Auto) (0.0-3.0) % Gran # (1.4-6.5) Lymph # (Auto) (1.2-3.4) [place] # (Auto) (0.1-0.6) Eos # (Auto) (0.0-0.7) Baso # (Auto) (0.0-2.0) K/mm3 PT (9.4-12.5) SECONDS INR pCO2 30 L (35-45) mm/Hg pO2 138.0 H (80-100) mm/Hg HCO3 19.5 L (21-28) mmol/L ABG pH 7.42 (7.35-7.45) ABG Total CO2 20.4 L (22-28) mmol.L ABG O2 Saturation 99.5 H (95-98) % ABG O2 Content 11.6 L (15-23) ML/dl ABG Base Excess -4.3 L (-2.0-3.0) mmol/L ABG Hemoglobin 8.3 L (11.7-17.4) g/dL ABG Carboxyhemoglobin 1.6 H (0.5-1.5) % POC ABG HHb (Measured) 0.5 (0-5) % ABG Methemoglobin 1.2 (0.0-3.0) % ABG O2 Capacity 11.7 L (16-24) mL/dl Hgb O2 Saturation 96.8 (95.0-98.0) % FiO2 40.0 % Sodium (132-148) mmol/L Potassium (3.6-5.0) mmol/L Chloride (98-107) mmol/L Carbon Dioxide (21-33) mmol/L Anion Gap (10-20) BUN (7-21) mg/dL Creatinine (0.8-1.5) mg/dl Est GFR ( Amer) Est GFR (Non-Af Amer) POC Glucose (mg/dL) 93 96 (65-110) mg/dL Random Glucose (70-110) mg/dL Calcium (8.4-10.5) mg/dL Total Bilirubin (0.2-1.3) mg/dL AST (17-59) U/L ALT (7-56) U/L Alkaline Phosphatase (38-126) U/L Total Protein (5.8-8.3) g/dL Albumin (3.0-4.8) g/dL Globulin gm/dL Albumin/Globulin Ratio (1.1-1.8) Procalcitonin (0.19-0.49) NG/ML Blood Type Antibody Screen Crossmatch BBK History Checked 07/24/18 07/24/18 07/24/18 Range/Units 02:38 01:11 00:25 WBC (4.5-11.0) 10^3/uL RBC (3.5-6.1) 10^6/uL Hgb (14.0-18.0) g/dL Hct (42.0-52.0) % MCV (80.0-105.0) fl MCH (25.0-35.0) pg MCHC (31.0-37.0) g/dl RDW (11.5-14.5) % Plt Count (120.0-450.0) 10^3/uL Manual Plt Count (120-450) K/mm3 Gran % (50.0-68.0) % Lymph % (Auto) (22.0-35.0) % [place] % (Auto) (1.0-6.0) % Eos % (Auto) (1.5-5.0) % Baso % (Auto) (0.0-3.0) % Gran # (1.4-6.5) Lymph # (Auto) (1.2-3.4) [place] # (Auto) (0.1-0.6) Eos # (Auto) (0.0-0.7) Baso # (Auto) (0.0-2.0) K/mm3 PT (9.4-12.5) SECONDS INR pCO2 (35-45) mm/Hg pO2 (80-100) mm/Hg HCO3 (21-28) mmol/L ABG pH (7.35-7.45) ABG Total CO2 (22-28) mmol.L ABG O2 Saturation (95-98) % ABG O2 Content (15-23) ML/dl ABG Base Excess (-2.0-3.0) mmol/L ABG Hemoglobin (11.7-17.4) g/dL ABG Carboxyhemoglobin (0.5-1.5) % POC ABG HHb (Measured) (0-5) % ABG Methemoglobin (0.0-3.0) % ABG O2 Capacity (16-24) mL/dl Hgb O2 Saturation (95.0-98.0) % FiO2 % Sodium 155 H (132-148) mmol/L Potassium (3.6-5.0) mmol/L Chloride (98-107) mmol/L Carbon Dioxide (21-33) mmol/L Anion Gap (10-20) BUN (7-21) mg/dL Creatinine (0.8-1.5) mg/dl Est GFR ( Amer) Est GFR (Non-Af Amer) POC Glucose (mg/dL) 110 132 H (65-110) mg/dL Random Glucose (70-110) mg/dL Calcium (8.4-10.5) mg/dL Total Bilirubin (0.2-1.3) mg/dL AST (17-59) U/L ALT (7-56) U/L Alkaline Phosphatase (38-126) U/L Total Protein (5.8-8.3) g/dL Albumin (3.0-4.8) g/dL Globulin gm/dL Albumin/Globulin Ratio (1.1-1.8) Procalcitonin (0.19-0.49) NG/ML Blood Type Antibody Screen Crossmatch BBK History Checked 07/24/18 07/23/18 07/23/18 Range/Units 00:09 23:17 21:42 WBC (4.5-11.0) 10^3/uL RBC (3.5-6.1) 10^6/uL Hgb (14.0-18.0) g/dL Hct (42.0-52.0) % MCV (80.0-105.0) fl MCH (25.0-35.0) pg MCHC (31.0-37.0) g/dl RDW (11.5-14.5) % Plt Count (120.0-450.0) 10^3/uL Manual Plt Count (120-450) K/mm3 Gran % (50.0-68.0) % Lymph % (Auto) (22.0-35.0) % [place] % (Auto) (1.0-6.0) % Eos % (Auto) (1.5-5.0) % Baso % (Auto) (0.0-3.0) % Gran # (1.4-6.5) Lymph # (Auto) (1.2-3.4) [place] # (Auto) (0.1-0.6) Eos # (Auto) (0.0-0.7) Baso # (Auto) (0.0-2.0) K/mm3 PT (9.4-12.5) SECONDS INR pCO2 (35-45) mm/Hg pO2 (80-100) mm/Hg HCO3 (21-28) mmol/L ABG pH (7.35-7.45) ABG Total CO2 (22-28) mmol.L ABG O2 Saturation (95-98) % ABG O2 Content (15-23) ML/dl ABG Base Excess (-2.0-3.0) mmol/L ABG Hemoglobin (11.7-17.4) g/dL ABG Carboxyhemoglobin (0.5-1.5) % POC ABG HHb (Measured) (0-5) % ABG Methemoglobin (0.0-3.0) % ABG O2 Capacity (16-24) mL/dl Hgb O2 Saturation (95.0-98.0) % FiO2 % Sodium (132-148) mmol/L Potassium (3.6-5.0) mmol/L Chloride (98-107) mmol/L Carbon Dioxide (21-33) mmol/L Anion Gap (10-20) BUN (7-21) mg/dL Creatinine (0.8-1.5) mg/dl Est GFR ( Amer) Est GFR (Non-Af Amer) POC Glucose (mg/dL) 130 H 199 H 264 H (65-110) mg/dL Random Glucose (70-110) mg/dL Calcium (8.4-10.5) mg/dL Total Bilirubin (0.2-1.3) mg/dL AST (17-59) U/L ALT (7-56) U/L Alkaline Phosphatase (38-126) U/L Total Protein (5.8-8.3) g/dL Albumin (3.0-4.8) g/dL Globulin gm/dL Albumin/Globulin Ratio (1.1-1.8) Procalcitonin (0.19-0.49) NG/ML Blood Type Antibody Screen Crossmatch BBK History Checked 07/23/18 07/23/18 07/23/18 Range/Units 21:02 20:40 20:40 WBC 12.2 H (4.5-11.0) 10^3/uL RBC 2.85 L (3.5-6.1) 10^6/uL Hgb 7.6 L (14.0-18.0) g/dL Hct 25.3 L (42.0-52.0) % MCV 88.8 (80.0-105.0) fl MCH 26.7 (25.0-35.0) pg MCHC 30.0 L (31.0-37.0) g/dl RDW 16.6 H (11.5-14.5) % Plt Count 12 L* (120.0-450.0) 10^3/uL Manual Plt Count (120-450) K/mm3 Gran % 97.3 H (50.0-68.0) % Lymph % (Auto) 2.2 L (22.0-35.0) % [place] % (Auto) 0.5 L (1.0-6.0) % Eos % (Auto) 0.0 L (1.5-5.0) % Baso % (Auto) 0.0 (0.0-3.0) % Gran # 11.85 H (1.4-6.5) Lymph # (Auto) 0.3 L (1.2-3.4) [place] # (Auto) 0.1 (0.1-0.6) Eos # (Auto) 0.0 (0.0-0.7) Baso # (Auto) 0.00 (0.0-2.0) K/mm3 PT (9.4-12.5) SECONDS INR pCO2 (35-45) mm/Hg pO2 (80-100) mm/Hg HCO3 (21-28) mmol/L ABG pH (7.35-7.45) ABG Total CO2 (22-28) mmol.L ABG O2 Saturation (95-98) % ABG O2 Content (15-23) ML/dl ABG Base Excess (-2.0-3.0) mmol/L ABG Hemoglobin (11.7-17.4) g/dL ABG Carboxyhemoglobin (0.5-1.5) % POC ABG HHb (Measured) (0-5) % ABG Methemoglobin (0.0-3.0) % ABG O2 Capacity (16-24) mL/dl Hgb O2 Saturation (95.0-98.0) % FiO2 % Sodium 155 H (132-148) mmol/L Potassium 3.1 L (3.6-5.0) mmol/L Chloride 128 H (98-107) mmol/L Carbon Dioxide 20 L (21-33) mmol/L Anion Gap 10 (10-20) BUN 113 H (7-21) mg/dL Creatinine 2.1 H (0.8-1.5) mg/dl Est GFR ( Amer) 39 Est GFR (Non-Af Amer) 32 POC Glucose (mg/dL) 371 H (65-110) mg/dL Random Glucose 318 H* D (70-110) mg/dL Calcium 8.0 L (8.4-10.5) mg/dL Total Bilirubin 0.7 (0.2-1.3) mg/dL AST 39 (17-59) U/L ALT 66 H (7-56) U/L Alkaline Phosphatase 79 (38-126) U/L Total Protein 5.4 L (5.8-8.3) g/dL Albumin 2.4 L (3.0-4.8) g/dL Globulin 3.0 gm/dL Albumin/Globulin Ratio 0.8 L (1.1-1.8) Procalcitonin (0.19-0.49) NG/ML Blood Type Antibody Screen Crossmatch BBK History Checked 07/23/18 07/23/18 07/23/18 Range/Units 20:08 19:06 17:59 WBC (4.5-11.0) 10^3/uL RBC (3.5-6.1) 10^6/uL Hgb (14.0-18.0) g/dL Hct (42.0-52.0) % MCV (80.0-105.0) fl MCH (25.0-35.0) pg MCHC (31.0-37.0) g/dl RDW (11.5-14.5) % Plt Count (120.0-450.0) 10^3/uL Manual Plt Count (120-450) K/mm3 Gran % (50.0-68.0) % Lymph % (Auto) (22.0-35.0) % [place] % (Auto) (1.0-6.0) % Eos % (Auto) (1.5-5.0) % Baso % (Auto) (0.0-3.0) % Gran # (1.4-6.5) Lymph # (Auto) (1.2-3.4) [place] # (Auto) (0.1-0.6) Eos # (Auto) (0.0-0.7) Baso # (Auto) (0.0-2.0) K/mm3 PT (9.4-12.5) SECONDS INR pCO2 (35-45) mm/Hg pO2 (80-100) mm/Hg HCO3 (21-28) mmol/L ABG pH (7.35-7.45) ABG Total CO2 (22-28) mmol.L ABG O2 Saturation (95-98) % ABG O2 Content (15-23) ML/dl ABG Base Excess (-2.0-3.0) mmol/L ABG Hemoglobin (11.7-17.4) g/dL ABG Carboxyhemoglobin (0.5-1.5) % POC ABG HHb (Measured) (0-5) % ABG Methemoglobin (0.0-3.0) % ABG O2 Capacity (16-24) mL/dl Hgb O2 Saturation (95.0-98.0) % FiO2 % Sodium (132-148) mmol/L Potassium (3.6-5.0) mmol/L Chloride (98-107) mmol/L Carbon Dioxide (21-33) mmol/L Anion Gap (10-20) BUN (7-21) mg/dL Creatinine (0.8-1.5) mg/dl Est GFR ( Amer) Est GFR (Non-Af Amer) POC Glucose (mg/dL) 396 H 400 H* 403 H* (65-110) mg/dL Random Glucose (70-110) mg/dL Calcium (8.4-10.5) mg/dL Total Bilirubin (0.2-1.3) mg/dL AST (17-59) U/L ALT (7-56) U/L Alkaline Phosphatase (38-126) U/L Total Protein (5.8-8.3) g/dL Albumin (3.0-4.8) g/dL Globulin gm/dL Albumin/Globulin Ratio (1.1-1.8) Procalcitonin (0.19-0.49) NG/ML Blood Type Antibody Screen Crossmatch BBK History Checked 07/23/18 07/23/18 07/23/18 Range/Units 17:02 15:54 11:50 WBC (4.5-11.0) 10^3/uL RBC (3.5-6.1) 10^6/uL Hgb (14.0-18.0) g/dL Hct (42.0-52.0) % MCV (80.0-105.0) fl MCH (25.0-35.0) pg MCHC (31.0-37.0) g/dl RDW (11.5-14.5) % Plt Count (120.0-450.0) 10^3/uL Manual Plt Count (120-450) K/mm3 Gran % (50.0-68.0) % Lymph % (Auto) (22.0-35.0) % [place] % (Auto) (1.0-6.0) % Eos % (Auto) (1.5-5.0) % Baso % (Auto) (0.0-3.0) % Gran # (1.4-6.5) Lymph # (Auto) (1.2-3.4) [place] # (Auto) (0.1-0.6) Eos # (Auto) (0.0-0.7) Baso # (Auto) (0.0-2.0) K/mm3 PT (9.4-12.5) SECONDS INR pCO2 (35-45) mm/Hg pO2 (80-100) mm/Hg HCO3 (21-28) mmol/L ABG pH (7.35-7.45) ABG Total CO2 (22-28) mmol.L ABG O2 Saturation (95-98) % ABG O2 Content (15-23) ML/dl ABG Base Excess (-2.0-3.0) mmol/L ABG Hemoglobin (11.7-17.4) g/dL ABG Carboxyhemoglobin (0.5-1.5) % POC ABG HHb (Measured) (0-5) % ABG Methemoglobin (0.0-3.0) % ABG O2 Capacity (16-24) mL/dl Hgb O2 Saturation (95.0-98.0) % FiO2 % Sodium 148 (132-148) mmol/L Potassium 3.5 L (3.6-5.0) mmol/L Chloride 124 H (98-107) mmol/L Carbon Dioxide 19 L (21-33) mmol/L Anion Gap 7 L (10-20) BUN > 120 H* (7-21) mg/dL Creatinine 1.8 H (0.8-1.5) mg/dl Est GFR ( Amer) 46 Est GFR (Non-Af Amer) 38 POC Glucose (mg/dL) 381 H 391 H (65-110) mg/dL Random Glucose 225 H (70-110) mg/dL Calcium 7.0 L (8.4-10.5) mg/dL Total Bilirubin (0.2-1.3) mg/dL AST (17-59) U/L ALT (7-56) U/L Alkaline Phosphatase (38-126) U/L Total Protein (5.8-8.3) g/dL Albumin (3.0-4.8) g/dL Globulin gm/dL Albumin/Globulin Ratio (1.1-1.8) Procalcitonin (0.19-0.49) NG/ML Blood Type Antibody Screen Crossmatch BBK History Checked 07/23/18 07/22/18 Range/Units 11:10 19:53 WBC (4.5-11.0) 10^3/uL RBC (3.5-6.1) 10^6/uL Hgb (14.0-18.0) g/dL Hct (42.0-52.0) % MCV (80.0-105.0) fl MCH (25.0-35.0) pg MCHC (31.0-37.0) g/dl RDW (11.5-14.5) % Plt Count (120.0-450.0) 10^3/uL Manual Plt Count (120-450) K/mm3 Gran % (50.0-68.0) % Lymph % (Auto) (22.0-35.0) % [place] % (Auto) (1.0-6.0) % Eos % (Auto) (1.5-5.0) % Baso % (Auto) (0.0-3.0) % Gran # (1.4-6.5) Lymph # (Auto) (1.2-3.4) [place] # (Auto) (0.1-0.6) Eos # (Auto) (0.0-0.7) Baso # (Auto) (0.0-2.0) K/mm3 PT (9.4-12.5) SECONDS INR pCO2 (35-45) mm/Hg pO2 (80-100) mm/Hg HCO3 (21-28) mmol/L ABG pH (7.35-7.45) ABG Total CO2 (22-28) mmol.L ABG O2 Saturation (95-98) % ABG O2 Content (15-23) ML/dl ABG Base Excess (-2.0-3.0) mmol/L ABG Hemoglobin (11.7-17.4) g/dL ABG Carboxyhemoglobin (0.5-1.5) % POC ABG HHb (Measured) (0-5) % ABG Methemoglobin (0.0-3.0) % ABG O2 Capacity (16-24) mL/dl Hgb O2 Saturation (95.0-98.0) % FiO2 % Sodium (132-148) mmol/L Potassium (3.6-5.0) mmol/L Chloride (98-107) mmol/L Carbon Dioxide (21-33) mmol/L Anion Gap (10-20) BUN (7-21) mg/dL Creatinine (0.8-1.5) mg/dl Est GFR ( Amer) Est GFR (Non-Af Amer) POC Glucose (mg/dL) (65-110) mg/dL Random Glucose (70-110) mg/dL Calcium (8.4-10.5) mg/dL Total Bilirubin (0.2-1.3) mg/dL AST (17-59) U/L ALT (7-56) U/L Alkaline Phosphatase (38-126) U/L Total Protein (5.8-8.3) g/dL Albumin (3.0-4.8) g/dL Globulin gm/dL Albumin/Globulin Ratio (1.1-1.8) Procalcitonin 0.17 L (0.19-0.49) NG/ML Blood Type O POSITIVE Antibody Screen Negative Crossmatch See Detail BBK History Checked Patient has bt Laboratory Results - last 24 hr 07/22/18 07/23/18 07/23/18 19:53 11:10 11:50 WBC RBC Hgb Hct MCV MCH MCHC RDW Plt Count Manual Plt Count Gran % Lymph % (Auto) [place] % (Auto) Eos % (Auto) Baso % (Auto) Gran # Lymph # (Auto) [place] # (Auto) Eos # (Auto) Baso # (Auto) PT INR pCO2 pO2 HCO3 ABG pH ABG Total CO2 ABG O2 Saturation ABG O2 Content ABG Base Excess ABG Hemoglobin ABG Carboxyhemoglobin POC ABG HHb (Measured) ABG Methemoglobin ABG O2 Capacity Hgb O2 Saturation FiO2 Sodium 148 Potassium 3.5 L Chloride 124 H Carbon Dioxide 19 L Anion Gap 7 L BUN > 120 H* Creatinine 1.8 H Est GFR ( Amer) 46 Est GFR (Non-Af Amer) 38 POC Glucose (mg/dL) Random Glucose 225 H Calcium 7.0 L Total Bilirubin AST ALT Alkaline Phosphatase Total Protein Albumin Globulin Albumin/Globulin Ratio Procalcitonin 0.17 L Blood Type O POSITIVE Antibody Screen Negative Crossmatch See Detail BBK History Checked Patient has bt 07/23/18 07/23/18 07/23/18 15:54 17:02 17:59 WBC RBC Hgb Hct MCV MCH MCHC RDW Plt Count Manual Plt Count Gran % Lymph % (Auto) [place] % (Auto) Eos % (Auto) Baso % (Auto) Gran # Lymph # (Auto) [place] # (Auto) Eos # (Auto) Baso # (Auto) PT INR pCO2 pO2 HCO3 ABG pH ABG Total CO2 ABG O2 Saturation ABG O2 Content ABG Base Excess ABG Hemoglobin ABG Carboxyhemoglobin POC ABG HHb (Measured) ABG Methemoglobin ABG O2 Capacity Hgb O2 Saturation FiO2 Sodium Potassium Chloride Carbon Dioxide Anion Gap BUN Creatinine Est GFR ( Amer) Est GFR (Non-Af Amer) POC Glucose (mg/dL) 391 H 381 H 403 H* Random Glucose Calcium Total Bilirubin AST ALT Alkaline Phosphatase Total Protein Albumin Globulin Albumin/Globulin Ratio Procalcitonin Blood Type Antibody Screen Crossmatch BBK History Checked 07/23/18 07/23/18 07/23/18 19:06 20:08 20:40 WBC 12.2 H RBC 2.85 L Hgb 7.6 L Hct 25.3 L MCV 88.8 MCH 26.7 MCHC 30.0 L RDW 16.6 H Plt Count 12 L* Manual Plt Count Gran % 97.3 H Lymph % (Auto) 2.2 L [place] % (Auto) 0.5 L Eos % (Auto) 0.0 L Baso % (Auto) 0.0 Gran # 11.85 H Lymph # (Auto) 0.3 L [place] # (Auto) 0.1 Eos # (Auto) 0.0 Baso # (Auto) 0.00 PT INR pCO2 pO2 HCO3 ABG pH ABG Total CO2 ABG O2 Saturation ABG O2 Content ABG Base Excess ABG Hemoglobin ABG Carboxyhemoglobin POC ABG HHb (Measured) ABG Methemoglobin ABG O2 Capacity Hgb O2 Saturation FiO2 Sodium Potassium Chloride Carbon Dioxide Anion Gap BUN Creatinine Est GFR ( Amer) Est GFR (Non-Af Amer) POC Glucose (mg/dL) 400 H* 396 H Random Glucose Calcium Total Bilirubin AST ALT Alkaline Phosphatase Total Protein Albumin Globulin Albumin/Globulin Ratio Procalcitonin Blood Type Antibody Screen Crossmatch BBK History Checked 07/23/18 07/23/18 07/23/18 20:40 21:02 21:42 WBC RBC Hgb Hct MCV MCH MCHC RDW Plt Count Manual Plt Count Gran % Lymph % (Auto) [place] % (Auto) Eos % (Auto) Baso % (Auto) Gran # Lymph # (Auto) [place] # (Auto) Eos # (Auto) Baso # (Auto) PT INR pCO2 pO2 HCO3 ABG pH ABG Total CO2 ABG O2 Saturation ABG O2 Content ABG Base Excess ABG Hemoglobin ABG Carboxyhemoglobin POC ABG HHb (Measured) ABG Methemoglobin ABG O2 Capacity Hgb O2 Saturation FiO2 Sodium 155 H Potassium 3.1 L Chloride 128 H Carbon Dioxide 20 L Anion Gap 10 BUN 113 H Creatinine 2.1 H Est GFR ( Amer) 39 Est GFR (Non-Af Amer) 32 POC Glucose (mg/dL) 371 H 264 H Random Glucose 318 H* D Calcium 8.0 L Total Bilirubin 0.7 AST 39 ALT 66 H Alkaline Phosphatase 79 Total Protein 5.4 L Albumin 2.4 L Globulin 3.0 Albumin/Globulin Ratio 0.8 L Procalcitonin Blood Type Antibody Screen Crossmatch BBK History Checked 07/23/18 07/24/18 07/24/18 23:17 00:09 00:25 WBC RBC Hgb Hct MCV MCH MCHC RDW Plt Count Manual Plt Count Gran % Lymph % (Auto) [place] % (Auto) Eos % (Auto) Baso % (Auto) Gran # Lymph # (Auto) [place] # (Auto) Eos # (Auto) Baso # (Auto) PT INR pCO2 pO2 HCO3 ABG pH ABG Total CO2 ABG O2 Saturation ABG O2 Content ABG Base Excess ABG Hemoglobin ABG Carboxyhemoglobin POC ABG HHb (Measured) ABG Methemoglobin ABG O2 Capacity Hgb O2 Saturation FiO2 Sodium 155 H Potassium Chloride Carbon Dioxide Anion Gap BUN Creatinine Est GFR ( Amer) Est GFR (Non-Af Amer) POC Glucose (mg/dL) 199 H 130 H Random Glucose Calcium Total Bilirubin AST ALT Alkaline Phosphatase Total Protein Albumin Globulin Albumin/Globulin Ratio Procalcitonin Blood Type Antibody Screen Crossmatch BBK History Checked 07/24/18 07/24/18 07/24/18 01:11 02:38 03:30 WBC RBC Hgb Hct MCV MCH MCHC RDW Plt Count Manual Plt Count Gran % Lymph % (Auto) [place] % (Auto) Eos % (Auto) Baso % (Auto) Gran # Lymph # (Auto) [place] # (Auto) Eos # (Auto) Baso # (Auto) PT INR pCO2 pO2 HCO3 ABG pH ABG Total CO2 ABG O2 Saturation ABG O2 Content ABG Base Excess ABG Hemoglobin ABG Carboxyhemoglobin POC ABG HHb (Measured) ABG Methemoglobin ABG O2 Capacity Hgb O2 Saturation FiO2 Sodium Potassium Chloride Carbon Dioxide Anion Gap BUN Creatinine Est GFR ( Amer) Est GFR (Non-Af Amer) POC Glucose (mg/dL) 132 H 110 96 Random Glucose Calcium Total Bilirubin AST ALT Alkaline Phosphatase Total Protein Albumin Globulin Albumin/Globulin Ratio Procalcitonin Blood Type Antibody Screen Crossmatch BBK History Checked 07/24/18 07/24/18 07/24/18 04:04 05:20 05:23 WBC RBC Hgb Hct MCV MCH MCHC RDW Plt Count Manual Plt Count Gran % Lymph % (Auto) [place] % (Auto) Eos % (Auto) Baso % (Auto) Gran # Lymph # (Auto) [place] # (Auto) Eos # (Auto) Baso # (Auto) PT INR pCO2 30 L pO2 138.0 H HCO3 19.5 L ABG pH 7.42 ABG Total CO2 20.4 L ABG O2 Saturation 99.5 H ABG O2 Content 11.6 L ABG Base Excess -4.3 L ABG Hemoglobin 8.3 L ABG Carboxyhemoglobin 1.6 H POC ABG HHb (Measured) 0.5 ABG Methemoglobin 1.2 ABG O2 Capacity 11.7 L Hgb O2 Saturation 96.8 FiO2 40.0 Sodium Potassium Chloride Carbon Dioxide Anion Gap BUN Creatinine Est GFR ( Amer) Est GFR (Non-Af Amer) POC Glucose (mg/dL) 93 128 H Random Glucose Calcium Total Bilirubin AST ALT Alkaline Phosphatase Total Protein Albumin Globulin Albumin/Globulin Ratio Procalcitonin Blood Type Antibody Screen Crossmatch BBK History Checked 07/24/18 07/24/18 07/24/18 06:10 06:10 06:10 WBC 10.4 RBC 2.92 L Hgb 7.9 L Hct 25.7 L MCV 88.0 MCH 27.1 MCHC 30.7 L RDW 16.5 H Plt Count 9 L* Manual Plt Count 17 L* Gran % 94.9 H Lymph % (Auto) 3.4 L [place] % (Auto) 1.7 Eos % (Auto) 0.0 L Baso % (Auto) 0.0 Gran # 9.90 H Lymph # (Auto) 0.4 L [place] # (Auto) 0.2 Eos # (Auto) 0.0 Baso # (Auto) 0.00 PT 12.5 INR 1.09 pCO2 pO2 HCO3 ABG pH ABG Total CO2 ABG O2 Saturation ABG O2 Content ABG Base Excess ABG Hemoglobin ABG Carboxyhemoglobin POC ABG HHb (Measured) ABG Methemoglobin ABG O2 Capacity Hgb O2 Saturation FiO2 Sodium 155 H Potassium 3.7 Chloride 130 H Carbon Dioxide 21 Anion Gap 7 L BUN 113 H Creatinine 2.2 H Est GFR ( Amer) 37 Est GFR (Non-Af Amer) 30 POC Glucose (mg/dL) Random Glucose 192 H Calcium 7.8 L Total Bilirubin 0.7 AST 51 ALT 68 H Alkaline Phosphatase 84 Total Protein 5.4 L Albumin 2.4 L Globulin 3.0 Albumin/Globulin Ratio 0.8 L Procalcitonin Blood Type Antibody Screen Crossmatch BBK History Checked 07/24/18 07/24/18 07/24/18 06:16 07:07 09:10 WBC RBC Hgb Hct MCV MCH MCHC RDW Plt Count Manual Plt Count Gran % Lymph % (Auto) [place] % (Auto) Eos % (Auto) Baso % (Auto) Gran # Lymph # (Auto) [place] # (Auto) Eos # (Auto) Baso # (Auto) PT INR pCO2 pO2 HCO3 ABG pH ABG Total CO2 ABG O2 Saturation ABG O2 Content ABG Base Excess ABG Hemoglobin ABG Carboxyhemoglobin POC ABG HHb (Measured) ABG Methemoglobin ABG O2 Capacity Hgb O2 Saturation FiO2 Sodium Potassium Chloride Carbon Dioxide Anion Gap BUN Creatinine Est GFR ( Amer) Est GFR (Non-Af Amer) POC Glucose (mg/dL) 165 H 233 H 365 H Random Glucose Calcium Total Bilirubin AST ALT Alkaline Phosphatase Total Protein Albumin Globulin Albumin/Globulin Ratio Procalcitonin Blood Type Antibody Screen Crossmatch BBK History Checked 07/24/18 07/24/18 10:18 11:22 WBC RBC Hgb Hct MCV MCH MCHC RDW Plt Count Manual Plt Count Gran % Lymph % (Auto) [place] % (Auto) Eos % (Auto) Baso % (Auto) Gran # Lymph # (Auto) [place] # (Auto) Eos # (Auto) Baso # (Auto) PT INR pCO2 pO2 HCO3 ABG pH ABG Total CO2 ABG O2 Saturation ABG O2 Content ABG Base Excess ABG Hemoglobin ABG Carboxyhemoglobin POC ABG HHb (Measured) ABG Methemoglobin ABG O2 Capacity Hgb O2 Saturation FiO2 Sodium Potassium Chloride Carbon Dioxide Anion Gap BUN Creatinine Est GFR ( Amer) Est GFR (Non-Af Amer) POC Glucose (mg/dL) 379 H 438 H* Random Glucose Calcium Total Bilirubin AST ALT Alkaline Phosphatase Total Protein Albumin Globulin Albumin/Globulin Ratio Procalcitonin Blood Type Antibody Screen Crossmatch BBK History Checked Radiology Impressions: Radiology Impressions Chest X-Ray 07/24/18 06:00 IMPRESSION: No active disease. Critical Care Progress Note - Nutrition Nutrition: Nutrition Category Date Time Status NPO Diet [DIET] Diets 07/06/18 Breakfast Ordered Attending/Attestation - Attestation I have personally seen and examined this patient.: Yes I have fully participated in the care of the patient.: Yes I have reviewed all pertinent clinical information: Yes Notes (Text): 07/24/18 12:04 The patient was seen and examined at the bedside. Patient care was discussed with resident Medical records, lab studies were reviewed and management issues were discussed and formulated. Agree with above treatment plans as outlined in 's note with addition of the following: Acute on chronic respiratory failure \ Hypoxemia \ PNA \ Anemia \ Thrombocytopenia \ Hypernatremia \ OG \ DM2 uncontrolled \ COPD \ Polyneuropathy -hemodynamic monitoring to maintain MAP>65 -mechanical ventilation and o2 supplementation to maintain Spo2 >90 Pao2>60 -monitor for TV 6ml\kg IBW and plateau pressure <30 -ABG in AM reviewed ; fio2 at 40% -continue nebs and steroids and pulmonary toileting -continue broad spectrum Abx as per ID team and f\u cultures -f\u Bun\Cr and U\o; D5W in addition to free H2O flushes and f\u serial Na+ level -renal team f\u -Tube feds diet and aspiration precautions -ISS\Lantus and BGM monitoring -neurology f\u -f\u serial CBC and monitor for bleed; transfuse blood products as per Hematology team -PT\OT f\u -DVT \ PUD prophylaxis CCM time 30min
--- NOTE | 2018-07-24 13:20 | CP.PCM.PN ---
Subjective - Date & Time of Evaluation Date of Evaluation: 07/24/18 Time of Evaluation: 10:55 - Subjective Subjective: Still on the ventilator, still with flaccid extremities, no fevers, no diarrhea. Objective - Vital Signs/Intake and Output Vital Signs (last 24 hours): Temp Pulse Resp BP Pulse Ox 98.6 F 79 24 107/53 L 100 07/23/18 08:00 07/23/18 10:00 07/22/18 07:54 07/23/18 10:00 07/23/18 10:00 Intake and Output: 07/23/18 07/23/18 06:59 18:59 Intake Total 1295 Output Total 1200 Balance 95 - Medications Medications: Current Medications Acetaminophen (Tylenol 650mg/20.3ml Solution Ud) 650 mg PO Q6H PRN PRN Reason: Fever 101F Last Admin: 07/20/18 13:20 Dose: 650 mg Albuterol/Ipratropium (Duoneb 3 Mg/0.5 Mg (3 Ml) Ud) 3 ml IH [id number] [facility] Last Admin: 07/23/18 07:50 Dose: 3 ml Albuterol/Ipratropium (Duoneb 3 Mg/0.5 Mg (3 Ml) Ud) 3 ml IH Q2H PRN PRN Reason: Shortness of Breath Last Admin: 07/11/18 23:55 Dose: 3 ml Digoxin (Lanoxin) 0.125 mg IVP 1400 [facility] Last Admin: 07/22/18 14:05 Dose: 0.125 mg Diltiazem HCl (Cardizem) 60 mg PO TID [facility] Last Admin: 07/23/18 09:30 Dose: 60 mg Famotidine (Pepcid) 20 mg IVP DAILY [facility] Last Admin: 07/23/18 09:29 Dose: 20 mg Dexamethasone 40 mg/ Sodium (Chloride) 60 mls @ 120 mls/hr IV DAILY [facility] Last Admin: 07/23/18 10:08 Dose: 120 mls/hr Propofol (Diprivan) 1,000 mg in 100 mls @ 2.545 mls/hr IV .Q24H PRN; Protocol PRN Reason: TITRATE PER MD ORDER Last Titration: 07/23/18 06:00 Dose: 10 mcg/kg/min, 5.089 mls/hr Desmopressin Acetate 1 mcg/ (Sodium Chloride) 50.25 mls @ 100 mls/hr IV BID [facility] Last Admin: 07/23/18 10:08 Dose: 100 mls/hr Meropenem/Sodium Chloride (Merrem Iv 500 Mg/Ns 50 Ml) 500 mg in 50 mls @ 100 mls/hr IVPB Q12 J[facility]ON; Protocol Stop: 07/29/18 18:16 Last Admin: 07/23/18 09:31 Dose: 100 mls/hr Dextrose (Dextrose 5% In Water 1000 Ml) 1,000 mls @ 100 mls/hr IV .Q10H [facility] Last Admin: 07/23/18 12:04 Dose: 100 mls/hr Insulin Detemir (Levemir) 30 unit SC HS [facility] Last Admin: 07/22/18 06:56 Dose: 30 units Insulin Human Regular (Humulin R High) 0 units SC Q4 [facility]; Protocol Last Admin: 07/23/18 12:06 Dose: Not Given Non-Formulary Medication (Eltrombopag Olamine [Promacta]) 75 mg PO DAILY [facility] Last Admin: 07/23/18 09:32 Dose: 75 mg Vitamin A (Vitamin A&D) 1 applic TP Q8 PRN PRN Reason: Dry mouth - Labs Labs: 07/23/18 06:00 07/23/18 11:50 PT 12.5 SECONDS (9.4-12.5) 07/19/18 05:00 INR 1.09 07/19/18 05:00 APTT 18.7 Seconds (25.1-36.5) L 07/06/18 11:54 - Constitutional Appears: Chronically Ill, Other (intubated, sedated) - Head Exam Head Exam: NORMAL INSPECTION - ENT Exam Additional comments: ET tube in place - Respiratory Exam Respiratory Exam: Decreased Breath Sounds - Cardiovascular Exam Cardiovascular Exam: +S1, +S2 - GI/Abdominal Exam GI & Abdominal Exam: Soft. absent: Tenderness Assessment and Plan - Assessment and Plan (Free Text) Plan: Assessment new onset SIRS with VDRF, consider new onset sepsis due to right lower lobe aspiration hospital-acquired pneumonia thrombocytopenia probably ITP flaccid weakness of extremities consider critical illness polyneuropathy and myopathy S/P Severe sepsis with hypoxic respiratory failure and S/P ventilator-dependent respiratory failure and acute on chronic renal failure as well as thrombocytopenia due to severe right sided community-acquired pneumonia S/P viral infection with Influenza A in this patient with CVA significant and active smoking history COPD HTN DM peripheral vascular disease history of right elbow septic arthritis history of right upper extremity cellulitis Plan continue intermittent IV vancomycin and renally-adjusted Merrem day 3 and will follow up final repeat blood and sputum cx results; PCT remains low; reviewed CXR discussed with Dr. Burr - probable has critically ill- related myopathy and neuropathy - discussed with Dr. Martinez as well - one rare possibility is Guillain [place] Syndrome - Dr. Martinez will discuss with Neurology to see if patient may benefit from IVIG again (already received it for the thrombocytopenia previously) and we are awaiting Neurology input, with further work up considered if feasible patient has been started on steroids by Heme/Onc prognosis is worsening and patient continues to be in critical condition
--- NOTE | 2018-07-24 13:20 | PN ---
DATE: 07/24/2018 NEUROLOGY FOLLOWUP CHIEF COMPLAINT: Followup for altered mental status and flaccid weakness in the extremities. SUBJECTIVE: The patient seen and examined at the bedside in the ICU, intubated and sedated. Chest x-ray showed right lower lobe pneumonia. He is on antibiotics. Platelet count is continued to be low, manual platelet count is 17. Given his flaccid weakness we recommend for him to start IVIG 1 g/kg for 3 days talked to hematology in regarding to this which will help with the thrombocytopenia as well as flaccid weakness. PAST MEDICAL HISTORY: History of COPD, hypertension, type 2 diabetes mellitus, eja-xoedniu-pnewefjzy diabetes mellitus, chronic kidney disease stage III; history of severe thrombocytopenia. REVIEW OF SYSTEMS: Difficult to obtain due to the patient's underlying multiple mental status. ALLERGIES: NUT AND FRUIT. MEDICATIONS: Reviewed by nurse's reconciliation sheet. FAMILY HISTORY: Noncontributory. PHYSICAL EXAMINATION: VITAL SIGNS: Temperature 99.2, pulse rate of 87, blood pressure 120/67. HEENT: Atraumatic, normocephalic. PERRLA. HEART: Regular rate and rhythm. No murmurs, rubs, or gallops. S1 and S2 present. LUNGS: Coarse breath sounds anteriorly, diffuse breath sounds at the basis and few rhonchi. ABDOMEN: Soft, nontender, nondistended. Bowel sounds are present. EXTREMITIES: Trace pedal edema. NEUROLOGIC: The patient is sedated sedation does not follow any simple commands. Opens his eyes to voice, tracks voice. Speech is difficult to assess at this time. Cranial nerves II through XII intact. Motor exam: Minimal spontaneous movement of upper and lower extremities and decrease tone in both upper and lower extremities. Sensory: Withdraws to noxious stimulus, but does not localize. DTRs are 1+ throughout and absent in the knees and ankles. Coordination and gait deferred for now. LABORATORY DATA: WBC 10.4, hemoglobin 7.9, hemoglobin 25.7, platelet count 17. Today, sodium is 155, potassium 3.7, chloride 130, carbon dioxide 21, BUN 113, creatinine 2.2, blood glucose 438. IMPRESSION: This is a 62-year-old man with history of multiple medical problems with past medical history of rpx-nsqigql-tdndsjdob diabetes mellitus, chronic kidney disease stage III, hypertension, chronic obstructive pulmonary disease, history of severe thrombocytopenia, who was initially admitted to intensive care unit. Status post intubation for acute hypoxic respiratory failure with severe sepsis secondary to community-acquired pneumonia. Now status post reintubation for hypercapnic respiratory failure likely secondary to right lower lobe pneumonia and the patient has severe thrombocytopenia. This consult is for status. He has severe metabolic derangement and his altered mental status is secondary to severe toxic metabolic encephalopathy. RECOMMENDATION: 1. Superimposed underlying critical illness polyneuropathy/myopathy rather than Guillain-Rosalia, but either way we will recommend IVIG 1 g/kg for next 3 days which will help with the thrombocytopenia as well as new muscular weakness. 2. Monitor electrolytes and correct accordingly. 3. Avoid hyperglycemic accelerations and try to correct his underlying hypernatremia which can further worsen his mental status. 4. Keep his blood pressure between 140-180. 5. Continue on current present critical care management and given his he is currently not a cardiac catheterization candidate since his poor critical condition. At this time, prognosis engage guarded, GI prophylaxis with Protonix and SCDs for DVT prophylaxis. Thank you for this followup. Edis Mcdaniels MD
--- NOTE | 2018-07-24 13:28 | PN ---
DATE: 07/24/2018 CARDIOLOGY FOLLOWUP SUBJECTIVE: The patient is ventilator dependent. PHYSICAL EXAMINATION: GENERAL: The patient is sedated. VITAL SIGNS: Blood pressure is 138/60, heart rate in the 80s. NECK: Negative JVD. LUNGS: Decreased breath sounds bilaterally. HEART: Soft systolic ejection murmur. EXTREMITIES: Without change. LABORATORY DATA: BUN and creatinine 113/2.2. Glucose is 192. Hemoglobin is 7.9 with a platelet count of 17,000. IMPRESSION: 1. Respiratory failure. 2. Dilated cardiomyopathy. 3. Status post non-ST elevation myocardial infarction. 4. Thrombocytopenia. 5. End-stage renal disease. Given these findings, the patient's prognosis is poor. Continuing to treat her non-STEMI medically. No cardiac intervention is planned given the severe thrombocytopenia. Benjamin Saxena MD
[2018-07-24] MEDS: Digoxin 500 mcg/2ml (0.5 mg/2ml) Inj IVP SCH (16:56)
[2018-07-24] MEDS: IMMUNE GLOBULIN IV SCH (18:10)
[2018-07-24] MEDS: PREMIXED IV SCH (18:10)
[2018-07-24 19:33] LABS: ALB/GLOB RATIO 0.8 (1.1-1.8); ALBUMIN 2.4 g/dL (3.0-4.8); CALCIUM 7.7 mg/dL (8.4-10.5)
--- NOTE | 2018-07-24 20:56 | PN ---
DATE: 07/24/2018 SUBJECTIVE: The patient is seen lying in bed in the ICU. He is on mechanical ventilation. He is not really responsive. Responds by grimacing to the pain. Receiving NG tube feeding. PHYSICAL EXAMINATION: GENERAL: Elderly male lying in bed in the ICU. VITAL SIGNS: Blood pressure 122/61, heart rate 70, respiratory rate 24, temperature 99.3, T max 99.5. HEENT: Normocephalic, atraumatic, positive pallor. NECK: Supple. No JVD. CARDIOPULMONARY: S1, S2. Regular rate and rhythm. No murmur, no rub. LUNGS: Bilateral equal entry, bilateral equal expansion. ABDOMEN: Obese, distended, soft, nontender, bowel sounds present. EXTREMITIES: 1+ pitting edema of the lower extremities. INTAKE AND OUTPUT: [id number]/ [id number]. LABORATORY DATA: WBC 10, hemoglobin 7.9, hematocrit 26, platelets 9. Sodium 155, potassium 3.7, chloride 130, CO2 21, BUN 113, creatinine 2.2, glucose 192, calcium 7.8, AST 51, ALT 68. Serum culture gram-negative zachariah. Blood culture, no growth. CURRENT MEDICATIONS: Cardizem 60 t.i.d., desmopressin 1 mcg, sodium chloride at 100 mL per hour, D5W at 100 mL per hour started this morning, Diprivan 10 mg per kilogram per minute, insulin and 3 units per hour. Currently, Lanoxin 0.125 IV daily, meropenem 500 every 12, Pepcid 20 IV every 12, Tylenol, vitamin D, Decadron 40 mg. The patient received 1 unit of PRBC and 1 unit of platelets yesterday. He also received potassium 20 mEq this morning, vancomycin 1 g this morning. ASSESSMENT AND PLAN: 1. Multiorgan dysfunction, sepsis, respiratory failure. 2. Critical illness polyneuropathy. 3. Severe thrombocytopenia. 4. Severe anemia, no evidence of overt bleeding, but diffuse ecchymosis. 5. Hypernatremia. 6. Prerenal azotemia, BUN extremely high secondary to hyperkeratotic state. 7. Status post acute kidney injury requiring dialysis. 8. Azp-steaepg-izouhwloj diabetes mellitus. 9. Severe hyperglycemia because of steroid infusion. 10. History of now with superimposed ? PLAN: 1. Maintain euglycemia with insulin drip. 2. Free water through the NG tube. 3. Restrict use of D5W. 4. Agree with plan for IVIG. 5. Continue empiric antibiotics. 6. Gram-negative pneumonia? 7. Prognosis, grim. Case discussed with ICU residents at length, case discussed with ICU attending. More than 35 minutes spent in the care of this critically ill patient. Bobbi Sullivan MD
[2018-07-25] MEDS: Albuterol-Ipratrop 3 mg / 0.5 (3 ml) UD IH SCH ×4 (01:32→20:37)
[2018-07-25] MEDS: Insulin Regular 100 UNITS in Sodium Chloride 0.9% 99 ML IV PRN ×2 (02:05→06:52)
[2018-07-25 05:45] LABS: ARTERIAL BLOOD GAS HCO3 18.2 mmol/L (21-28); ARTERIAL BLOOD GAS O2 SAT 99.7 % (95-98); ARTERIAL BLOOD GAS PCO2 30 mm/Hg (35-45); ARTERIAL BLOOD GAS PH 7.39 (7.35-7.45); ARTERIAL BLOOD GAS TCO2 19.1 mmol.L (22-28)
--- NOTE | 2018-07-25 08:37 | PN ---
DATE: 07/25/2018 SUBJECTIVE: The patient remains intubated and sedated. He remains in the ICU. OBJECTIVE: VITAL SIGNS: Temperature is 99.1, pulse 73, respirations 26/14, blood pressure 142/63. HEENT: Normocephalic, atraumatic. NECK: No JVD. CARDIOVASCULAR: Systolic ejection murmur at the lower left sternal border. No S3 gallop. LUNGS: Decreased breath sounds at the bases. Very minimal/much less rhonchi. No wheezing. EXTREMITIES: Mild edema. No cyanosis, no clubbing. GASTROINTESTINAL: Abdomen is soft, nontender and nondistended. Bowel sounds are positive. SKIN: No acute rash. NEUROLOGIC: Limited at the present time. 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 There is complete clearing of the previously seen pulmonary infiltrates. Official results are pending. Arterial blood gas was done on PRVC 14, tidal volume 500, FIO2 40%. Results are pH 7.39, pCO2 of 30, pO2 of 183. IMPRESSION: 1. Respiratory failure. 2. Bilateral pneumonia. 3. Rule out myocardial infarction. 4. Ischemic dilated cardiomyopathy. 5. Renal failure. 6. Anemia, thrombocytopenia. 7. Chronic obstructive pulmonary disease. 8. Rule out critical illness polyneuropathy. PLAN: The patient remains in the ICU. He remains on the ventilator and sedated. I did discuss the case with the night nurse at length. The night nurse stated the patient had an uneventful night. I did review the chest x-ray from this morning. There appears to be complete clearing of the previously seen pulmonary infiltrates. I have also reviewed the arterial blood gas. The arterial blood gas continues to improve-- with normalization of the pH and a significant decrease in the alveolar-arterial gradient. I would continue with the current ventilator settings for now. The patient's pulmonary status continues to improve significantly. However, it appears that his neurologic status continues to present to a significant problem. Neurologic input is noted and appreciated. The patient has been started on intravenous immune globulin. I would continue with the antibiotic coverage as per Infectious Disease. Temperatures are resolving. The leukocytosis has also resolved. Inputs by Renal and Cardiology are also noted. The patient remains critically ill with very guarded/poor prognosis. I will discuss the above with the entire ICU team in the next few moments. I will discuss the above with the attending physician later this morning. Balta Burr MD [facility]
[2018-07-25 08:58] LABS: GRAN # 8.78 (1.4-6.5); GRAN % 92.5 % (50.0-68.0); HEMOGLOBIN 7.6 g/dL (14.0-18.0); LYMPH # 0.6 (1.2-3.4); LYMPH % 6.3 % (22.0-35.0); MEAN CELL VOLUME 88.5 fl (80.0-105.0); MEAN CORPUSCULAR HEMOGLOBIN 27.2 pg (25.0-35.0); MEAN CORPUSCULAR HGB CONC 30.8 g/dl (31.0-37.0); MONO # 0.1 (0.1-0.6); MONO % 1.2 % (1.0-6.0); RBC 2.79 10^6/uL (3.5-6.1); RED CELL DISTRIBUTION WIDTH 16.9 % (11.5-14.5); WHITE BLOOD COUNT 9.5 10^3/uL (4.5-11.0)
[2018-07-25 09:18] LABS: PLATELET COUNT 19 10^3/uL (120.0-450.0)
[2018-07-25] MEDS: MEROPENEM 500 MG in NS 500 MG/50 ML BAG IVPB SCH ×2 (09:29→21:53)
[2018-07-25 09:33] LABS: BAND 1 % (0-2); LARGE PLATELETS PRESENT; LYMPHOCYTE 2 % (22.0-35.0); MONOCYTE 3 % (1.0-6.0); NEUTROPHIL 94 % (50.0-70.0); PLATELET ESTIMATE LOW (NORMAL)
[2018-07-25 09:38] LABS: PLATELET COUNT MANUAL 26 K/mm3 (120-450)
[2018-07-25 09:56] LABS: ALB/GLOB RATIO 0.6 (1.1-1.8); ALBUMIN 2.3 g/dL (3.0-4.8); CALCIUM 7.6 mg/dL (8.4-10.5)
--- NOTE | 2018-07-25 10:25 | PN ---
DATE: 07/25/2018 SUBJECTIVE: The patient is sedated on the ventilator with a FIO2 of 40%. No unusual events overnight. PHYSICAL EXAMINATION: VITAL SIGNS: His temperature is 99.0, pulse is 74, respirations are 16 and BP is 142/65. SKIN: Warm and dry. HEENT: Head atraumatic, normocephalic. Eyes reactive to light. Ears, nose and throat seemed to be within normal limits. NECK: Supple. No JVD. No thyroid enlargement, no lymph nodes. HEART: Has regular rate and rhythm. Normal S1, S2. LUNGS: Reveal mild rhonchi bilaterally. ABDOMEN: Soft. Decreased bowel sounds. GENITALIA: Deferred. RECTAL: Deferred. MUSCULOSKELETAL: No joint deformities. EXTREMITIES: Reveal trace lower extremity edema. NEUROLOGIC: He is sedated on the ventilator. LABORATORY DATA: His white count is 10.4, hemoglobin is 7.9, his hematocrit is 25.7 with platelets of 9000. The patient's arterial blood gas reveals a pH of 7.39, pCO2 of 30, pO2 of 183. The patient's electrolytes are pending. His chest x-ray results are pending. IMPRESSION: This patient has respiratory failure requiring ventilator support secondary to acute respiratory distress syndrome and pneumonia. He has renal failure as well as anemia, hyperglycemia on insulin drip. The patient has a history of chronic obstructive pulmonary disease, peripheral vascular disease. It is noted that he has severe thrombocytopenia at this time. The patient has polyneuropathy of critical care. PLAN: We will continue with vent support and try to titrate as tolerated. The patient will continue with insulin drip and we will monitor the electrolytes. We will continue with the propofol as well as his Cardizem, his desmopressin. The patient is on DuoNeb as well as digoxin, meropenem, propofol. We will continue to treat aggressively along with the other consultants and the primary care doctor. Maxi Hamm MD
[2018-07-25] MEDS: IMMUNE GLOBULIN IV SCH (11:12)
[2018-07-25] MEDS: PREMIXED IV SCH (11:12)
[2018-07-25] MEDS: Propofol 10 mg/ml 1,000 MG/100 ML VIAL IV PRN ×2 (11:20→22:19)
--- NOTE | 2018-07-25 11:21 | PN ---
SUBJECTIVE: The patient was seen and examined at bedside in the ICU. No acute events overnight. He remains afebrile and intubated and sedated. OBJECTIVE: VITAL SIGNS: Temperature 99, pulse 74, blood pressure 142/65, respiratory rate 20 and oxygen saturation 100% on 40% FIO2. GENERAL: Intubated and sedated. HEENT: PERRL. ETT in place. OGT in place. NECK: No JVD. LUNGS: Coarse anterior breath sounds with few scattered rhonchi. CARDIOVASCULAR: Regular rate and rhythm. Normal S1 and S2. ABDOMEN: Normoactive bowel sounds. Soft and nondistended. EXTREMITIES: Trace pedal edema. NEUROLOGIC: Intubated and sedated. LABORATORY DATA: Morning labs are pending. Blood cultures negative. Sputum culture (07/23/2018) with Gram-negative rods. ASSESSMENT: The patient is a 62-year-old man with multiple medical comorbidities who was admitted to ICU s/p intubation for acute hypoxic respiratory failure and severe sepsis secondary to community-acquired pneumonia who is now s/p reintubation for hypercapnic respiratory failure likely secondary to right lower lobe aspiration pneumonia. PLAN: 1. Ventilator dependent respiratory failure. Input from Dr. Burr and ICU team greatly appreciated. Continue with care as per ICU team. The patient will likely require placement of tracheostomy. 2. Severe sepsis secondary to aspiration pneumonia. Input from Dr. Lucero appreciated and the patient remains on Meropenem and Vancomycin. We will continue to monitor for fever and leukocytosis. 3. 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 Input from Dr. Mcdaniels appreciated. The patient has been restarted on IVIG and is scheduled to complete a 3 day course. 4. Acute kidney injury, likely secondary to ATN, improving. Input from Dr. Sullivan appreciated. Continue to monitor strict I&O's, renally dose medications and avoid nephrotoxins. 5. Thrombocytopenia secondary to ITP. Input from Dr. Estevez appreciated. Continue with care as per Dr. Estevez. 6. NSTEMI. Input from Dr. Saxena appreciated. The patient unfortunately is not a candidate for cardiac catheterization given his clinical condition. 7. Atrial fibrillation, new onset. The patient has converted to normal sinus rhythm. Continue with care as per Dr. Saxena. Continue Diltiazem and Digoxin. 8. Acute systolic heart failure. Continue with care as per Dr. Saxena. 9. Transaminitis, resolved. 10. Normocytic anemia. Labs with stable H/H and no evidence of active bleed. 11. Type 2 diabetes mellitus. Continue with current insulin regimen. 12. Hypertension. 13. Pseudogout. 14. Anxiety disorder. 15. GERD. 16. Prophylaxis. Continue Protonix for GI prophylaxis and SCDs for DVT prophylaxis. CODE STATUS: Full code. Yassine Martinez MD MTDD
--- NOTE | 2018-07-25 13:25 | CP.PCM.PN ---
Subjective - Date & Time of Evaluation Date of Evaluation: 07/25/18 Time of Evaluation: 12:20 - Subjective Subjective: Continues to be on the ventilator and have flaccid extremities, no fevers overnight. No diarrhea. Objective - Vital Signs/Intake and Output Vital Signs (last 24 hours): Temp Pulse Resp BP Pulse Ox 99.5 F 72 21 127/63 100 07/24/18 13:00 07/24/18 13:00 07/24/18 04:01 07/24/18 13:00 07/24/18 13:00 Intake and Output: 07/24/18 07/24/18 06:59 18:59 Intake Total 1931.75 148 Output Total 1200 Balance 731.75 148 - Medications Medications: Current Medications Acetaminophen (Tylenol 650mg/20.3ml Solution Ud) 650 mg PO Q6H PRN PRN Reason: Fever 101F Last Admin: 07/20/18 13:20 Dose: 650 mg Albuterol/Ipratropium (Duoneb 3 Mg/0.5 Mg (3 Ml) Ud) 3 ml IH [id number] [facility] Last Admin: 07/24/18 13:05 Dose: 3 ml Albuterol/Ipratropium (Duoneb 3 Mg/0.5 Mg (3 Ml) Ud) 3 ml IH Q2H PRN PRN Reason: Shortness of Breath Last Admin: 07/11/18 23:55 Dose: 3 ml Digoxin (Lanoxin) 0.125 mg IVP 1400 [facility] Last Admin: 07/23/18 16:07 Dose: 0.125 mg Diltiazem HCl (Cardizem) 60 mg PO TID [facility] Last Admin: 07/24/18 10:16 Dose: 60 mg Famotidine (Pepcid) 20 mg IVP Q12H [facility] Dexamethasone 40 mg/ Sodium (Chloride) 60 mls @ 120 mls/hr IV DAILY [facility] Last Admin: 07/24/18 09:14 Dose: 120 mls/hr Propofol (Diprivan) 1,000 mg in 100 mls @ 2.545 mls/hr IV .Q24H PRN; Protocol PRN Reason: TITRATE PER MD ORDER Last Admin: 07/24/18 08:13 Dose: 10 mcg/kg/min, 5.089 mls/hr Desmopressin Acetate 1 mcg/ (Sodium Chloride) 50.25 mls @ 100 mls/hr IV BID [facility] Last Admin: 07/24/18 09:28 Dose: 100 mls/hr Meropenem/Sodium Chloride (Merrem Iv 500 Mg/Ns 50 Ml) 500 mg in 50 mls @ 100 mls/hr IVPB Q12 [facility]; Protocol Stop: 07/29/18 18:16 Last Admin: 07/24/18 09:13 Dose: 100 mls/hr Dextrose (Dextrose 5% In Water 1000 Ml) 1,000 mls @ 100 mls/hr IV .Q10H [facility] Last Admin: 07/24/18 06:50 Dose: 100 mls/hr Insulin Human Regular 100 (units/ Sodium Chloride) 100 mls @ 15 mls/hr IV .Q6H40M PRN; Protocol PRN Reason: TITRATE PER MD ORDER Last Titration: 07/24/18 13:10 Dose: 5 units/hr, 5 mls/hr Insulin Detemir (Levemir) 30 unit SC HS [facility] Last Admin: 07/22/18 06:56 Dose: 30 units Vitamin A (Vitamin A&D) 1 applic TP Q8 PRN PRN Reason: Dry mouth - Labs Labs: 07/24/18 06:10 07/24/18 06:10 PT 12.5 SECONDS (9.4-12.5) 07/24/18 06:10 INR 1.09 07/24/18 06:10 APTT 18.7 Seconds (25.1-36.5) L 07/06/18 11:54 - Constitutional Appears: Chronically Ill, Other (intubated, sedated) - ENT Exam Additional comments: ET tube in place - Respiratory Exam Respiratory Exam: Decreased Breath Sounds - Cardiovascular Exam Cardiovascular Exam: +S1, +S2 - GI/Abdominal Exam GI & Abdominal Exam: Soft. absent: Tenderness Assessment and Plan - Assessment and Plan (Free Text) Plan: Assessment new onset SIRS with VDRF, consider new onset sepsis due to right lower lobe aspiration hospital-acquired pneumonia thrombocytopenia probably ITP flaccid weakness of extremities consider critical illness polyneuropathy and myopathy S/P Severe sepsis with hypoxic respiratory failure and S/P ventilator-dependent respiratory failure and acute on chronic renal failure as well as thrombocytopenia due to severe right sided community-acquired pneumonia S/P viral infection with Influenza A in this patient with CVA significant and active smoking history COPD HTN DM peripheral vascular disease history of right elbow septic arthritis history of right upper extremity cellulitis Plan continue intermittent IV vancomycin and renally-adjusted Merrem day 4 for 4-7 days; sputum cx is now showing Stenotrophomonas; PCT remains low; reviewed CXR discussed with Dr. Burr - probable has critically ill- related myopathy and neuropathy - discussed with Dr. Martinez as well - one rare possibility is Guillain Greenwood Syndrome - as per Dr. Mcdaniels, patient is to be given IVIG - as per Neuro, it is still more likely critical-illness myopathy and neuropathy and less likely GBS, but regardless, IVIG may be beneficial for both prognosis is worsening and patient continues to be in critical condition
[2018-07-25] MEDS: Digoxin 500 mcg/2ml (0.5 mg/2ml) Inj IVP SCH (13:44)
--- NOTE | 2018-07-25 14:48 | RAD ---
Date of service: 07/25/2018 HISTORY: f/u COMPARISON: 07/24/2018 FINDINGS: LUNGS: No active pulmonary disease. PLEURA: No significant pleural effusion identified, no pneumothorax apparent. CARDIOVASCULAR: No aortic atherosclerotic calcification present. Normal cardiac size. No congestive change. ET tube, NG tube and left PICC catheter are all grossly unchanged in position. OSSEOUS STRUCTURES: No significant abnormalities. VISUALIZED UPPER ABDOMEN: Normal. OTHER FINDINGS: None. IMPRESSION: No active disease.
--- NOTE | 2018-07-25 16:00 | PN ---
DATE: 07/25/2018 SUBJECTIVE: The patient is seen in the ICU. He remains on mechanical ventilation. He is sedated. He is minimally responsive. PHYSICAL EXAMINATION GENERAL: Elderly male, lying in bed in the ICU. VITAL SIGNS: Blood pressure 100/45, heart rate 66, respiratory rate 24-28, temperature 99.3, T-max is 99.3. HEENT: Normocephalic, atraumatic, positive pallor. NECK: Supple, no JVD. LUNGS: Bilateral equal entry, bilateral equal expansion, bilateral rhonchi. CARDIAC: S1, S2, regular rate and rhythm, no murmur, no rub. ABDOMEN: Obese, distended, soft, nontender, bowel sounds present. EXTREMITIES: Chronic stasis changes, trace lower extremity edema, 2+ pitting edema of the upper extremities, extensive ecchymosis of the right arm. INTAKE AND OUTPUT: 5494/2700. LABORATORY DATA: WBC 9.5, hemoglobin 7.6, hematocrit 24.7, platelets 19. Sodium 152, potassium 3.6, chloride 128, CO2 of 20. Anion gap 4. BUN 93, creatinine 1.6, glucose 201. Calcium 7.6. AST 47, ALT 69, albumin 2.3. ABG; pH 7.39, pCO2 of 30, pO2 of 183. Sputum culture, Stenotrophomonas maltophilia. CURRENT MEDICATIONS: Cardizem 60 three times a day, desmopressin IV, Diprivan, DuoNeb, IVIG 80 g, insulin at 3 units per hour, digoxin IV daily, Levemir, meropenem 500 every 12 hours, Pepcid, Tylenol, vitamin A and D. ASSESSMENT: 1. Multiorgan dysfunction syndrome, respiratory failure, critical illness polyneuropathy. 2. Acute kidney injury, status post renal replacement therapy, now renal parameters improving. 3. Thrombocytopenia, history of idiopathic thrombocytopenic purpura, ?disseminated intravascular coagulation. 4. Severe anemia. 5. Hypernatremia, slowly improving. 6. Severe hyperglycemia, secondary to steroids. 7. Gram-negative pneumonia? 8. New-onset atrial fibrillation this admission. 9. History of dvj-byudnwi-zlvhnagga diabetes mellitus. 10. History of chronic kidney disease, stage III. PLAN: 1. Continue free water via NG tube. 2. Decrease D5W to 60 mL/hour. 3. Continue antibiotics as per ID recommendations. 4. Getting IVIG today for thrombocytopenia. 5. Status post high-dose steroids for critical illness polyneuropathy. 6. No indication for renal replacement therapy. 7. Electrolytes within normal limits. 8. Avoid nephrotoxins. 9. Remains critically ill with poor prognosis. Case discussed with ICU resident, case discussed with ICU nursing staff, more than 35 minutes spent in the care of this critically ill patient. Bobbi Sullivan MD
--- NOTE | 2018-07-25 20:55 | PN ---
DATE OF VISIT: 07/25/2018 This is [facility] visit in the intensive care unit. For Dr. Estevez. SUBJECTIVE: The patient is a 62-year-old male lying supine, intubated and sedated, unresponsive except the painful stimuli as per anesthesiology medical doctor with the patient known to suffer from ITP and now known to suffer from respiratory failure with sepsis; right lower lobe aspiration pneumonia with chronic kidney disease; now acute renal failure, on dialysis, with influenza. OBJECTIVE/PHYSICAL EXAMINATION: VITAL SIGNS: Temperature 99.1, pulse 73, respirations as per vent settings, pulse ox of 100% oxygen saturation, blood pressure 128/65. GENERAL: Intubated. Does not open eyes to command. NECK: No nodes in the neck. HEART: Regular rate. LUNGS: Scattered rhonchi. ABDOMEN: Soft. EXTREMITIES: +1 edema of the upper extremities. Lower extremities, negative with ecchymotic changes of right arm. SKIN: Otherwise, warm and dry. NEUROLOGIC: Sedated, unresponsive except the painful stimuli as per anesthesiology medical doctor. LABORATORY DATA: The patient's labs were done. White blood cell count of 9.5, hemoglobin of 7.6, hematocrit of 24.7, platelet count of 19,000 with a manual count of 26,000 today, improved from 9000 and 17,000 manual count yesterday. INR of 1.09. Metabolic panel showing a sodium of 152, chloride of 128 with a BUN of 93, creatinine of 1.6, nonfasting glucose of 246. AST of 69. The patient's serology did show positive influenza A titers on 07/03/2018. The patient did have a sputum culture, which grew Stenotrophomonas maltophilia, light growth from specimen 2 days prior. Blood cultures were negative 3 days prior. The patient had a chest x-ray done earlier today; it was read as no active disease. ASSESSMENT: For this patient is that of acute respiratory failure with intubation; severe sepsis, secondary to pneumonia/influenza; severe thrombocytopenia, secondary to idiopathic thrombocytopenic purpura; chronic kidney disease/acute renal failure with anemia of chronic disease; history of [id number] myocardial infarction; atrial fibrillation, now converted to normal sinus; diabetes mellitus; hypertension; gastroesophageal reflux disease. PLAN: For this patient after conversation with Dr. Estevez is to continue the present medical regimen. We will monitor clinically and with labs with suspicion of possibly Guillain-Merritt syndrome, for which change of his antiplatelet therapy was done with Promacta being discontinued in favor of IV gammaglobulin 1 g/kg for 2 days for thrombocytopenic indices with 3 days recommended for Guillain-Merritt, which will be addressed as per Dr. Mcdaniels, Neurology and pharmacy at the hospital. At this point with the Promacta being discontinued, recommendations were to hold further platelet transfusions as they are not improving his lab values with consideration for trial of Nplate after IV gammaglobulin treatment is completed should be indicated. Otherwise, we will monitor clinically and with labs. This is a complex patient with a comprehensive medically necessary and appropriate visit carried out in excess of 50 minutes with the patient's case discussed among neurologist along with Renal product management consultant and anesthesiology medical doctor. James Martinez MD
[2018-07-26] MEDS: Albuterol-Ipratrop 3 mg / 0.5 (3 ml) UD IH SCH ×4 (02:52→20:00)
[2018-07-26 06:15] LABS: ALB/GLOB RATIO 0.5 (1.1-1.8); ALBUMIN 2.1 g/dL (3.0-4.8); CALCIUM 7.4 mg/dL (8.4-10.5)
[2018-07-26 06:24] LABS: EOS % 0.1 % (1.5-5.0); GRAN # 7.45 (1.4-6.5); GRAN % 93.1 % (50.0-68.0); HEMOGLOBIN 7.1 g/dL (14.0-18.0); LYMPH # 0.4 (1.2-3.4); LYMPH % 5.2 % (22.0-35.0); MEAN CORPUSCULAR HEMOGLOBIN 27.4 pg (25.0-35.0); MEAN CORPUSCULAR HGB CONC 30.5 g/dl (31.0-37.0); MONO # 0.1 (0.1-0.6); MONO % 1.6 % (1.0-6.0); RBC 2.59 10^6/uL (3.5-6.1); RED CELL DISTRIBUTION WIDTH 16.9 % (11.5-14.5)
[2018-07-26 06:31] LABS: PLATELET COUNT 25 10^3/uL (120.0-450.0)
[2018-07-26 06:40] LABS: ARTERIAL BLOOD GAS HCO3 18.6 mmol/L (21-28); ARTERIAL BLOOD GAS HEMOGLOBIN 6.9 g/dL (11.7-17.4); ARTERIAL BLOOD GAS O2 CAPACITY 9.7 mL/dl (16-24); ARTERIAL BLOOD GAS O2 CONTENT 9.7 ML/dl (15-23); ARTERIAL BLOOD GAS O2 SAT 99.5 % (95-98); ARTERIAL BLOOD GAS PCO2 30 mm/Hg (35-45); ARTERIAL BLOOD GAS TCO2 19.5 mmol.L (22-28)
--- NOTE | 2018-07-26 08:01 | PN ---
DATE: 07/26/2018([id number]) SUBJECTIVE: The patient remains in the ICU. He remains sedated and on the ventilator. PHYSICAL EXAMINATION: VITAL SIGNS: Temperature 99.3, pulse 69, respirations 22/14, blood pressure 136/68. HEENT: Normocephalic, atraumatic. No JVD. CARDIOVASCULAR: Systolic ejection murmur at the lower left sternal border. No S3 gallop. LUNGS: Decreased breath sounds at the bases. Very minimal/less rhonchi. No wheezing. EXTREMITIES: Mild edema. No cyanosis, no clubbing. GASTROINTESTINAL: Abdomen is soft, nontender and nondistended. Bowel sounds are positive. SKIN: No acute rash. NEUROLOGIC: Exam limited at the present time. 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 The chest x-ray has not significantly changed from yesterday's film - but is significantly improved overall. Arterial blood gas was done on PRVC 14, tidal volume 500, FIO2 40%. Results are: PH 7.4, pCO2 of 30, pO2 of 148. IMPRESSION: 1. Respiratory failure. 2. Bilateral pneumonia. 3. Rule out myocardial infarction. 4. Ischemic dilated cardiomyopathy. 5. Renal failure. 6. Anemia, thrombocytopenia. 7. Chronic obstructive pulmonary disease. 8. Rule out critical illness polyneuropathy. PLAN: The patient remains in the ICU. He remains on the ventilator and sedated. I did discuss the case with the night nurse at length. The night nurse stated that the patient had an uneventful night. I did review the chest x-ray from this morning. The chest x-ray is similar to yesterday's film, and significantly improved overall. I have also reviewed the arterial blood gas. The arterial blood gas is also significantly improved overall. Unfortunately, the patient is still not moving his extremities. Neurologic input is noted. The patient did receive intravenous immunoglobulin. Hopefully, his neurologic status will improve. Inputs by Hematology, Renal, and Infectious Disease are also noted. The patient remains critically ill with overall very guarded/poor prognosis. I will discuss the above with the entire ICU team in the next few moments. I will also discuss the above with the attending physician later this morning. Balta Burr MD [facility] # [id number] MOE
[2018-07-26] MEDS: Insulin Lispro (HUMAlog) HIGH Coverage SC SCH ×4 (10:36→22:28)
[2018-07-26] MEDS: Propofol 10 mg/ml 1,000 MG/100 ML VIAL IV PRN ×2 (10:38→22:24)
[2018-07-26 10:50] LABS: PLATELET COUNT MANUAL 30 K/mm3 (120-450)
[2018-07-26] MEDS: MEROPENEM 500 MG in NS 500 MG/50 ML BAG IVPB SCH ×2 (11:02→21:35)
--- NOTE | 2018-07-26 11:05 | PN ---
DATE: 07/26/2018 SUBJECTIVE: The patient is still on the ventilator with FIO2 of 40%. No unusual events overnight. The patient continues to have significant anemia and thrombocytopenia. PHYSICAL EXAMINATION: VITAL SIGNS: Temperature is 99.3, his pulse is 69, respirations are 20 and his BP is 136/68. SKIN: Warm and dry. HEENT: Head atraumatic, normocephalic. Eyes reactive to light. Ears, nose and throat seemed to be within normal limits. NECK: Supple. No JVD. No thyroid enlargement, no lymph nodes. HEART: Regular rate and rhythm. Normal S1, S2. LUNGS: Reveal bilateral rhonchi. ABDOMEN: Soft. Decreased bowel sounds. GENITALIA AND RECTAL: Deferred. MUSCULOSKELETAL: No joint deformities. EXTREMITIES: Reveal positive edema. NEUROLOGIC: He is sedated on the ventilator. LABORATORY DATA: His white count is 8, hemoglobin is 7.1, hematocrit is 23.3 with platelets of 25,000. The patient's arterial blood gas reveals a pH of 7.4, pCO2 of 30, pO2 of 148. Sodium is 148, potassium 3.8, chloride 125, CO2 of 21 with a BUN of 71, creatinine of 1.5 and a glucose of 204. Chest x-ray is pending. IMPRESSION: The patient has respiratory failure requiring ventilator support secondary to acute respiratory distress syndrome and pneumonia. He has renal failure as well as anemia, hyperglycemia and is on insulin drip. The patient has history of chronic obstructive pulmonary disease, peripheral vascular disease and noted to have severe thrombocytopenia at this time. He also is felt to have polyneuropathy of critical care. PLAN: We will continue with ventilator support and titrate as tolerated. The patient is on insulin drip and propofol as well as Cardizem, DuoNeb, digoxin, meropenem, propofol. We will continue to treat aggressively along with the other consultants and the primary care doctor. Maxi Hamm MD
--- NOTE | 2018-07-26 12:01 | CP.PCM.PN ---
Subjective - Date & Time of Evaluation Date of Evaluation: 07/26/18 Time of Evaluation: 11:20 - Subjective Subjective: Continues to be intubated and sedated, no fevers overnight, no diarrhea, still not moving his extremities. Objective - Vital Signs/Intake and Output Vital Signs (last 24 hours): Temp Pulse Resp BP Pulse Ox 99.0 F 71 26 H 121/60 100 07/25/18 08:00 07/25/18 11:00 07/25/18 04:00 07/25/18 09:36 07/25/18 08:00 Intake and Output: 07/25/18 07/25/18 06:59 18:59 Intake Total 2795 129 Output Total 1400 Balance 1395 129 - Medications Medications: Current Medications Acetaminophen (Tylenol 650mg/20.3ml Solution Ud) 650 mg PO Q6H PRN PRN Reason: Fever 101F Last Admin: 07/20/18 13:20 Dose: 650 mg Albuterol/Ipratropium (Duoneb 3 Mg/0.5 Mg (3 Ml) Ud) 3 ml IH [id number] [facility] Last Admin: 07/25/18 13:23 Dose: 3 ml Albuterol/Ipratropium (Duoneb 3 Mg/0.5 Mg (3 Ml) Ud) 3 ml IH Q2H PRN PRN Reason: Shortness of Breath Last Admin: 07/11/18 23:55 Dose: 3 ml Digoxin (Lanoxin) 0.125 mg IVP 1400 [facility] Last Admin: 07/24/18 16:56 Dose: 0.125 mg Diltiazem HCl (Cardizem) 60 mg PO TID [facility] Last Admin: 07/25/18 09:36 Dose: 60 mg Famotidine (Pepcid) 20 mg IVP Q12H [facility] Last Admin: 07/25/18 11:37 Dose: 20 mg Propofol (Diprivan) 1,000 mg in 100 mls @ 2.545 mls/hr IV .Q24H PRN; Protocol PRN Reason: TITRATE PER MD ORDER Last Admin: 07/25/18 11:20 Dose: 15 mcg/kg/min, 7.634 mls/hr Desmopressin Acetate 1 mcg/ (Sodium Chloride) 50.25 mls @ 100 mls/hr IV BID [facility] Last Admin: 07/25/18 09:28 Dose: 100 mls/hr Meropenem/Sodium Chloride (Merrem Iv 500 Mg/Ns 50 Ml) 500 mg in 50 mls @ 100 mls/hr IVPB Q12 [facility]; Protocol Stop: 07/29/18 18:16 Last Admin: 07/25/18 09:29 Dose: 100 mls/hr Dextrose (Dextrose 5% In Water 1000 Ml) 1,000 mls @ 100 mls/hr IV .Q10H [facility] Last Admin: 07/24/18 13:00 Dose: 100 mls/hr Insulin Human Regular 100 (units/ Sodium Chloride) 100 mls @ 15 mls/hr IV .Q6H40M PRN; Protocol PRN Reason: TITRATE PER MD ORDER Last Titration: 07/25/18 11:35 Dose: 5 units/hr, 5 mls/hr Immune Globulin 80 gm/ (Miscellaneous) 800 mls @ 0 mls/hr IV DAILY [facility]; Protocol Stop: 07/25/18 23:59 Last Admin: 07/25/18 11:12 Dose: 0.81 mls/hr Insulin Detemir (Levemir) 30 unit SC HS [facility] Last Admin: 07/22/18 06:56 Dose: 30 units Vitamin A (Vitamin A&D) 1 applic TP Q8 PRN PRN Reason: Dry mouth - Labs Labs: 07/25/18 08:30 07/25/18 08:30 PT 12.5 SECONDS (9.4-12.5) 07/24/18 06:10 INR 1.09 07/24/18 06:10 APTT 18.7 Seconds (25.1-36.5) L 07/06/18 11:54 - Constitutional Appears: Chronically Ill, Other (intubated, sedated) - Head Exam Head Exam: NORMAL INSPECTION - ENT Exam Additional comments: ET tube in place - Respiratory Exam Respiratory Exam: Decreased Breath Sounds - Cardiovascular Exam Cardiovascular Exam: +S1, +S2 - GI/Abdominal Exam GI & Abdominal Exam: Soft. absent: Tenderness - Extremities Exam Additional comments: left arm PICC line in place, site clean and intact Assessment and Plan - Assessment and Plan (Free Text) Plan: Assessment new onset SIRS with VDRF, consider new onset sepsis due to right lower lobe aspiration hospital-acquired pneumonia thrombocytopenia probably ITP flaccid weakness of extremities consider critical illness polyneuropathy and myopathy S/P Severe sepsis with hypoxic respiratory failure and S/P ventilator-dependent respiratory failure and acute on chronic renal failure as well as thromboc ytopenia due to severe right sided community-acquired pneumonia S/P viral infection with Influenza A in this patient with CVA significant and active smoking history COPD HTN DM peripheral vascular disease history of right elbow septic arthritis history of right upper extremity cellulitis Plan continue intermittent IV vancomycin and renally-adjusted Merrem day 5 for 4-7 da ys; sputum cx is now showing Stenotrophomonas; PCT remains low; reviewed CXR; hesitant to use Quinolones because QTc is 487 ms which is prolonged discussed with Dr. Burr - probable has critically ill- related myopathy and neuropathy - discussed with Dr. Martinez as well - one rare possibility is Guillain [place]asso Syndrome - as per Dr. Mcdaniels, patient is to be given IVIG - as per Neuro, it is still more likely critical-illness myopathy and neuropathy and less likely GBS, but regardless, IVIG may be beneficial for both and is currently being given IVIG prognosis is worsening and patient continues to be in critical condition
--- NOTE | 2018-07-26 12:04 | PN ---
SUBJECTIVE: The patient was seen and examined at bedside in the ICU. No acute events overnight. He remains afebrile, intubated and sedated and clinically unchanged. OBJECTIVE: VITAL SIGNS: Temperature 99.3, pulse 77, blood pressure 149/64, respiratory rate 20, oxygen saturation 99% on 40% FIO2. GENERAL: Intubated and sedated. HEENT: PERRL. ETT in place. OGT in place. NECK: No JVD. LUNGS: Coarse anterior breath sounds with few scattered rhonchi. CARDIOVASCULAR: Regular rate and rhythm. Normal S1 and S2. ABDOMEN: Normoactive bowel sounds, soft, nondistended. EXTREMITIES: Trace pedal edema. NEUROLOGIC: Intubated and sedated. LABORATORY DATA: WBC 8 with 93% neutrophils, hemoglobin 7, hematocrit 23, platelets 30. Sodium 148, potassium 3.8, chloride 125, bicarb 21, BUN 71, creatinine 1.5, glucose 233. Blood cultures negative. Sputum culture (07/23/18) with Stenotrophomonas maltophilia with sensitivities noted. ASSESSMENT: The patient is a 62-year-old man with multiple medical comorbidities who was admitted to the ICU s/p intubation for acute hypoxic respiratory failure and severe sepsis secondary to community-acquired pneumonia who is now s/p reintubation for hypercapnic respiratory failure likely secondary to right lower lobe aspiration pneumonia. PLAN: 1. Ventilator dependent respiratory failure, likely secondary to aspiration pneumonia. Input from Dr. Burr and ICU team greatly appreciated. Continue with care as per ICU team. The patient will likely require placement of tracheostomy. 2. Severe sepsis secondary to aspiration pneumonia. Input from Dr. Lucero noted. The patient remains afebrile. Continue with current antimicrobials as per Dr. Lucero. 3. 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 Input from Dr. Mcdaniels noted. The patient is s/p a course of IVIG. Continue with aggressive PT. Arrangements are being made for transfer to LTAC. 4. Acute kidney injury, likely secondary to ATN, resolving. Input from Dr. Sullivan appreciated and renal parameters continue to improve. Continue to monitor strict I&O's, renally dose medications and avoid nephrotoxins. 5. Thrombocytopenia, secondary to ITP. Input from Dr. Estevez noted. As above the patient is s/p a course of IVIG. Continue to monitor CBC daily. 6. NSTEMI. Input from Dr. Saxena noted. The patient unfortunately is not a candidate for cardiac catheterization given his clinical condition. 7. Paroxysmal atrial fibrillation. The patient remains in normal sinus rhythm. Continue with Diltiazem and Digoxin. 8. Acute systolic heart failure, resolved. Continue with care as per Dr. Saxena. 9. Transaminitis, resolved. 10. Normocytic anemia. Labs with stable H/H. We will continue to monitor CBC daily and transfuse as needed. 11. Type 2 diabetes mellitus. Continue with current insulin regimen. 12. Hypertension. 13. Pseudogout. 14. Anxiety disorder. 15. GERD. 16. Prophylaxis. Continue Protonix for GI prophylaxis and SCDs for DVT prophylaxis. CODE STATUS: Full code. Yassine Martinez MD MTDЮлия
--- NOTE | 2018-07-26 12:18 | RAD ---
Date of service: 07/26/2018 HISTORY: f/u COMPARISON: 07/25/2018 FINDINGS: LUNGS: No active pulmonary disease. PLEURA: No significant pleural effusion identified, no pneumothorax apparent. CARDIOVASCULAR: No aortic atherosclerotic calcification present. Normal cardiac size. No congestive change. ET tube, NG tube and left PICC catheter are unchanged in position. OSSEOUS STRUCTURES: No significant abnormalities. VISUALIZED UPPER ABDOMEN: Normal. OTHER FINDINGS: None. IMPRESSION: No active disease.
[2018-07-26] MEDS: Digoxin 500 mcg/2ml (0.5 mg/2ml) Inj IVP SCH (15:21)
--- NOTE | 2018-07-26 21:07 | PN ---
DATE: 07/26/2018 This is [facility]'s [facility] [address] visit in the intensive care unit. SUBJECTIVE: The patient is a 62-year-old male lying in the intensive care unit, intubated and sedated, unresponsive except for painful stimuli with respiratory failure, sepsis and reintubation with right lower lobe aspiration pneumonia. He now has been treated for acute renal failure with significant electrolyte imbalance, also being addressed. The patient is known to have had severe ITP with significant improvement with different modalities including steroids, Promacta and Nplate in the past, now being given IV gammaglobulin for two days after discussion with Dr. Estevez and Dr. Edis Mcdaniels, Neurology as the patient also has what is believed to be flaccid paralysis, to rule out Guillain-Albers syndrome as the patient does have positive influenza titers on admission with his sepsis being treated with antibiotics and antivirals at that time. At present, he remains unresponsive as above, but in no acute distress. We are monitoring his blood counts with possible hemodilution with labs to be repeated along with the patient to be monitored clinically. OBJECTIVE/PHYSICAL EXAMINATION: VITAL SIGNS: Temperature 99.3, pulse 77, respirations on a vent controlled, blood pressure 149/64, with pulse ox of 99%. GENERAL: Intubated. Eyes closed. Does not open eyes to command. NGT noted. NECK: No nodes. HEART: Regular rate. Occasional ectopic beat. LUNGS: Rare rhonchi. Decreased breath sounds at the bases. ABDOMEN: Soft, minimally distended. EXTREMITIES: +1 edema of the feet and hands bilaterally with ecchymotic changes in the right upper extremity. SKIN: Otherwise, warm and dry. NEUROLOGIC: The patient is sedated and obtunded with decreased tone noted in his extremities. LABORATORY DATA: The patient's labs were done. White blood cell count of 8, hemoglobin is 7.1, hematocrit of 23.3, platelet count of 25,000 with a manual count of 30,000, improved from three days prior when the platelet count was 9000 with manual of 14,000. His chem metabolic panel shows chloride of 125 with a BUN of 71, normal creatinine of 1.5, nonfasting glucose of 242. AST of 73 and ALT of 78. His most recent ammonia level was less than 9 on 07/13/2018. The patient did have a chest x-ray done earlier today was read as no active disease, NG tube and PICC catheter unchanged in position. ET tube noted. ASSESSMENT: For this patient is that of respiratory failure status post intubation; bilateral pneumonia, ischemic dilated cardiomyopathy, thrombocytopenia, anemia of chronic disease, acute renal failure, polyneuropathy, diabetes mellitus, history of non-ST elevated myocardial infarction, atrial fibrillation history, hypertension, gastroesophageal reflux disease. PLAN: For this patient after conversation with Dr. Estevez is to continue IV gammaglobulin for one more day with consideration for third day as per Dr. Mcdaniels should be indicated, otherwise for possible Guillain-Albers treatment, otherwise we will monitor clinically with labs and consideration for blood transfusion as his platelet count had modestly improved with gammaglobulin. There is consideration of Nplate to be began as Promacta has been discontinued. The prognosis for this patient is guarded with the patient to be monitored clinically and with labs. This is a complex patient with a comprehensive medically necessary and appropriate visit carried out in excess of 20 minutes with the patient's case discussed with consultants and nursing staff. James Martinez MD
[2018-07-27] MEDS: Albuterol-Ipratrop 3 mg / 0.5 (3 ml) UD IH SCH ×4 (02:35→20:15)
[2018-07-27] MEDS: Insulin Lispro (HUMAlog) HIGH Coverage SC SCH ×6 (03:13→22:00)
[2018-07-27 05:55] LABS: ARTERIAL BLOOD GAS HEMOGLOBIN 7.3 g/dL (11.7-17.4); ARTERIAL BLOOD GAS O2 CAPACITY 10.3 mL/dl (16-24); ARTERIAL BLOOD GAS O2 CONTENT 10.3 ML/dl (15-23); ARTERIAL BLOOD GAS O2 SAT 99.7 % (95-98); ARTERIAL BLOOD GAS PCO2 29 mm/Hg (35-45); ARTERIAL BLOOD GAS TCO2 18.9 mmol.L (22-28)
[2018-07-27 07:09] LABS: EOS % 0.2 % (1.5-5.0); GRAN # 10.59 (1.4-6.5); GRAN % 93.6 % (50.0-68.0); HEMOGLOBIN 7.9 g/dL (14.0-18.0); LYMPH # 0.5 (1.2-3.4); LYMPH % 4.1 % (22.0-35.0); MEAN CELL VOLUME 87.8 fl (80.0-105.0); MEAN CORPUSCULAR HEMOGLOBIN 26.8 pg (25.0-35.0); MEAN CORPUSCULAR HGB CONC 30.5 g/dl (31.0-37.0); MONO # 0.2 (0.1-0.6); MONO % 2.1 % (1.0-6.0); RBC 2.95 10^6/uL (3.5-6.1); RED CELL DISTRIBUTION WIDTH 17.1 % (11.5-14.5); WHITE BLOOD COUNT 11.3 10^3/uL (4.5-11.0)
[2018-07-27 07:25] LABS: PLATELET COUNT 23 10^3/uL (120.0-450.0)
[2018-07-27 07:34] LABS: ALB/GLOB RATIO 0.5 (1.1-1.8); ALBUMIN 2.2 g/dL (3.0-4.8); ALT/SGPT 77 U/L (7-56); AST/SGOT 66 U/L (17-59); BLOOD UREA NITROGEN 62 mg/dL (7-21); CALCIUM 7.4 mg/dL (8.4-10.5); GFR NON-AFRICAN AMERICAN 51
[2018-07-27 08:44] LABS: PLATELET COUNT MANUAL 50 K/mm3 (120-450)
[2018-07-27] MEDS: Propofol 10 mg/ml 1,000 MG/100 ML VIAL IV PRN (08:57)
[2018-07-27] MEDS: MEROPENEM 500 MG in NS 500 MG/50 ML BAG IVPB SCH ×2 (09:05→21:50)
--- NOTE | 2018-07-27 09:15 | PN ---
DATE: 07/27/2018([id number]) SUBJECTIVE: The patient remains in the ICU. He remains on the ventilator and is sedated. PHYSICAL EXAMINATION: VITAL SIGNS: Temperature is 99.3, pulse 73, respirations 26/14, blood pressure 139/71. HEENT: Normocephalic, atraumatic. No JVD. CARDIOVASCULAR: Systolic ejection murmur at the lower left sternal border. No S3 gallop. LUNGS: Decreased breath sounds at the bases. Very minimal/less rhonchi. No wheezing. EXTREMITIES: Mild edema. No cyanosis, no clubbing. GASTROINTESTINAL: Abdomen is soft, nondistended. Bowel sounds are positive. SKIN: No acute rash. NEUROLOGIC: Exam limited at the present time. 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 Compared to yesterday's film, the film today shows a possible mild increase in vascular congestion. Otherwise, there are no significant infiltrates. Official results are pending. Arterial blood gas was done on PRVC 14, tidal volume 400, FIO2 40%. Results are: PH 7.4, pCO2 is 29, pO2 of 137. IMPRESSION: 1. Respiratory failure. 2. Bilateral pneumonia. 3. Rule out myocardial infarction. 4. Ischemic dilated myopathy 5. Renal failure. 6. Anemia, thrombocytopenia. 7. Chronic obstructive pulmonary disease. 8. Rule out critical illness polyneuropathy. PLAN: The patient remains in the ICU. He remains sedated and on the ventilator. I did discuss case with the night nurse at length. The night nurse stated that the patient had an uneventful night. I did review the chest x-ray as above. Findings are noted. Official results are pending. I have also reviewed the arterial blood gas. The arterial blood gasses remains stable at this point in time. I will discuss possible re-trying the weaning trials with the ICU team this morning. Unfortunately, the patient's neurologic status remains very problematic. Again, the patient is status post intravenous immunoglobulin. Inputs by Hematology and Cardiology are also noted. I would continue with the antibiotic coverage as per Infectious Disease. Input by Dr. Lucero is noted. The temperatures are now resolving. The patient remains critically ill with very guarded/poor prognosis. I will discuss the above with the entire ICU team in the next few moments. I will also discuss the above with the attending physician later this morning. Balta Burr MD [facility] # [id number] MOE
--- NOTE | 2018-07-27 09:43 | PN ---
SUBJECTIVE: The patient was seen and examined at bedside in the ICU. No acute events overnight. He remains afebrile and clinically unchanged. OBJECTIVE: VITAL SIGNS: Temperature 99.3, pulse 73, blood pressure 139/71, respiratory rate 20, oxygen saturation 100% on 40% FIO2. GENERAL: Intubated and sedated. HEENT: PERRL. ETT in place, OGT in place. NECK: No JVD. LUNGS: Coarse anterior breath sounds with few scattered rhonchi. CARDIOVASCULAR: Regular rate and rhythm. Normal S1, S2. ABDOMEN: Normoactive bowel sounds. Soft, nondistended. EXTREMITIES: Trace pedal edema. NEUROLOGIC: Intubated and sedated. LABORATORY DATA: WBC 11.3 with 94% neutrophils, hemoglobin 8, hematocrit 26, platelets 23. Sodium 142, potassium 4.3, chloride 119, bicarb 21, BUN 62, creatinine 1.4, glucose 162. Blood cultures negative. Sputum culture (07/23/18) with Stenotrophomonas maltophilia with sensitivities noted. ASSESSMENT: The patient is a 62-year-old man with multiple medical comorbidities who was admitted to the ICU s/p intubation for acute hypoxic respiratory failure and severe sepsis secondary to community-acquired pneumonia who is now s/p reintubation for hypercapnic respiratory failure likely secondary to right lower lobe aspiration pneumonia. PLAN: 1. Ventilator dependent respiratory failure, likely secondary to aspiration pneumonia. Input from Dr. Burr and ICU team noted. Continue with care as per ICU team. The patient will likely require placement of tracheostomy. 2. Severe sepsis secondary to aspiration pneumonia. Input from Dr. Lucero noted. The patient remains afebrile and with negative blood cultures. Continue with current antimicrobials as per Dr. Lucero. 3. 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 Input from Dr. Mcdaniels noted. The patient is s/p a course of IVIG. Continue with aggressive PT. Arrangements are being made for transfer to LTAC. 4. Acute kidney injury, likely secondary to ATN, resolving. Input from Dr. Sullivan appreciated and renal parameters continue to improve. Continue to monitor strict I&O's, renally dose medications and avoid nephrotoxins. 5. Thrombocytopenia secondary to ITP. Input from Dr. Estevez noted. As above, the patient s/p a course of IVIG. Continue to monitor CBC. 6. NSTEMI. Input from Dr. Saxena noted. The patient is not a candidate for cardiac catheterization given his clinical condition. 7. Paroxysmal atrial fibrillation. The patient remains in normal sinus rhythm. Continue with Diltiazem and Digoxin. 8. Acute systolic heart failure, resolved. Continue with care as per Dr. Saxena. 9. Transaminitis, resolved. 10. Normocytic anemia. Labs with stable H/H. Continue to monitor CBC and transfuse as needed. 11. Type 2 diabetes mellitus. Continue with current insulin regimen. 12. Hypertension. 13. Pseudogout. 14. Anxiety disorder. 15. GERD. 16. Prophylaxis. Continue Protonix for GI prophylaxis and SCDs for DVT prophylaxis. CODE STATUS: Full code. Yassine Martinez MD OME
--- NOTE | 2018-07-27 10:28 | RAD ---
Date of service: 07/27/2018 HISTORY: f/u COMPARISON: 07/26/2018 FINDINGS: LUNGS: No active pulmonary disease. PLEURA: No significant pleural effusion identified, no pneumothorax apparent. CARDIOVASCULAR: No aortic atherosclerotic calcification present. Normal cardiac size. No pulmonary vascular congestion. OSSEOUS STRUCTURES: No significant abnormalities. VISUALIZED UPPER ABDOMEN: Normal. OTHER FINDINGS: The endotracheal and nasogastric tube are in satisfactory position. Left-sided PICC line terminates in the SVC IMPRESSION: No active disease.
--- NOTE | 2018-07-27 10:45 | CP.PCM.PN ---
Subjective - Date & Time of Evaluation Date of Evaluation: 07/27/18 Time of Evaluation: 10:40 - Subjective Subjective: Patient continues to be on the ventilator, sedated, still with flaccid extremities, no fevers overnight. Objective - Vital Signs/Intake and Output Vital Signs (last 24 hours): Temp Pulse Resp BP Pulse Ox 99.3 F 77 26 H 149/64 99 07/26/18 06:59 07/26/18 10:36 07/25/18 04:00 07/26/18 10:36 07/26/18 06:59 Intake and Output: 07/26/18 07/26/18 06:59 18:59 Intake Total 2640 5 Output Total 1401 Balance 1239 5 - Medications Medications: Current Medications Acetaminophen (Tylenol 650mg/20.3ml Solution Ud) 650 mg PO Q6H PRN PRN Reason: Fever 101F Last Admin: 07/20/18 13:20 Dose: 650 mg Albuterol/Ipratropium (Duoneb 3 Mg/0.5 Mg (3 Ml) Ud) 3 ml IH [id number] [facility] Last Admin: 07/26/18 07:37 Dose: 3 ml Albuterol/Ipratropium (Duoneb 3 Mg/0.5 Mg (3 Ml) Ud) 3 ml IH Q2H PRN PRN Reason: Shortness of Breath Last Admin: 07/11/18 23:55 Dose: 3 ml Digoxin (Lanoxin) 0.125 mg IVP 1400 [facility] Last Admin: 07/25/18 13:44 Dose: 0.125 mg Diltiazem HCl (Cardizem) 60 mg PO TID [facility] Last Admin: 07/26/18 10:36 Dose: 60 mg Famotidine (Pepcid) 20 mg IVP Q12H [facility] Last Admin: 07/26/18 10:45 Dose: 20 mg Propofol (Diprivan) 1,000 mg in 100 mls @ 2.545 mls/hr IV .Q24H PRN; Protocol PRN Reason: TITRATE PER MD ORDER Last Admin: 07/26/18 10:38 Dose: 15 mcg/kg/min, 7.634 mls/hr Desmopressin Acetate 1 mcg/ (Sodium Chloride) 50.25 mls @ 100 mls/hr IV BID [facility] Last Admin: 07/26/18 11:30 Dose: 100 mls/hr Meropenem/Sodium Chloride (Merrem Iv 500 Mg/Ns 50 Ml) 500 mg in 50 mls @ 100 mls/hr IVPB Q12 [facility]; Protocol Stop: 07/29/18 18:16 Last Admin: 07/26/18 11:02 Dose: 100 mls/hr Dextrose (Dextrose 5% In Water 1000 Ml) 1,000 mls @ 100 mls/hr IV .Q10H [facility] Last Admin: 07/26/18 11:50 Dose: 100 mls/hr Insulin Human Regular 100 (units/ Sodium Chloride) 100 mls @ 15 mls/hr IV .Q6H40M PRN; Protocol PRN Reason: TITRATE PER MD ORDER Last Titration: 07/26/18 08:35 Dose: 2 units/hr, 2 mls/hr Insulin Detemir (Levemir) 30 unit SC HS [facility] Last Admin: 07/22/18 06:56 Dose: 30 units Insulin Human Lispro (Humalog High) 0 units SC Q4H [facility]; Protocol Last Admin: 07/26/18 10:36 Dose: 2 units Vitamin A (Vitamin A&D) 1 applic TP Q8 PRN PRN Reason: Dry mouth - Labs Labs: 07/26/18 05:30 07/26/18 05:30 PT 12.5 SECONDS (9.4-12.5) 07/24/18 06:10 INR 1.09 07/24/18 06:10 APTT 18.7 Seconds (25.1-36.5) L 07/06/18 11:54 - Constitutional Appears: Chronically Ill, Other (intubated, sedated) - Head Exam Head Exam: NORMAL INSPECTION - ENT Exam Additional comments: ET tube in place - Respiratory Exam Respiratory Exam: Decreased Breath Sounds - Cardiovascular Exam Cardiovascular Exam: +S1, +S2 - GI/Abdominal Exam GI & Abdominal Exam: Soft. absent: Tenderness Assessment and Plan - Assessment and Plan (Free Text) Plan: Assessment new onset SIRS with VDRF, consider new onset sepsis due to right lower lobe aspi ration hospital-acquired pneumonia thrombocytopenia probably ITP flaccid weakness of extremities consider critical illness polyneuropathy and myopathy S/P Severe sepsis with hypoxic respiratory failure and S/P ventilator-dependent respiratory failure and acute on chronic renal failure as well as thr ombocytopenia due to severe right sided community-acquired pneumonia S/P viral infection with Influenza A in this patient with CVA significant and active smoking history COPD HTN DM peripheral vascular disease history of right elbow septic arthritis history of right upper extremity cellulitis Plan continue renally-adjusted Merrem day 6 for 4-7 days; sputum cx is now showing Stenotrophomonas; PCT remains low; reviewed CXR; hesitant to use Quinolones because QTc is 487 ms which is prolonged discussed with Dr. Burr - probable has critically ill- related myopathy and n europathy - discussed with Dr. Martinez as well - one rare possibility is Guillain Townsend Syndrome - as per Dr. Mcdaniels, patient is to be given IVIG - as per Neuro, it is still more likely critical-illness myopathy and neuropathy and less likely GBS, but regardless, IVIG may be beneficial for both and has now been given IVIG again patient continues to be in critical condition
--- NOTE | 2018-07-27 12:29 | CP.CCUPN ---
<Dannie Yeh - Last Filed: 07/27/18 13:43> CCU Subjective - Physician Review Subjective (Free Text): Dannie Yeh PGY1 Critical Care Progress Note Patient seen and examined at bedside this morning. No acute events reported overnight. Patient currently intubated and sedated. 12 point ROS limited due to patient status. Working with protective services case worker for LTAC placement. CCU Objective - Vital Signs / Intake & Output Vital Signs (Last 4 hours): Vital Signs Pulse BP 07/27/18 09:05 61 122/50 L Intake and Output (Last 8hrs): Intake & Output 07/26/18 07/27/18 07/27/18 22:59 06:59 14:59 Intake Total 2873 2378 100 Output Total 610 1050 Balance 2263 1328 100 Weight 188 lb Intake: IV 1403 1338 100 IVF 1000 1200 antibiotics 200 50 insulin 15 propofol 88 88 Oral 0 0 Tube Feeding 540 540 TPN/PPN 0 0 Blood Product 0 0 Lipid 0 0 Albumin 0 0 Other 930 500 Output: Gastric Amount 10 Stomach 10 Urine 600 1050 Urethral (Oliveros) 600 1050 Stool 0 0 Urine/Stool Mix 0 0 Emesis 0 0 Oral Regurgitation 0 0 Other 0 0 Other: # Voids Urethral (Oliveros) 0 0 # Bowel Movements 2 2 - Physical Exam Head: Positive for: Atraumatic, Normocephalic Pupils: Positive for: PERRL Extroacular Muscles: Negative for: EOMI (unable to be assessed) Conjunctiva: Positive for: Normal Mouth: Positive for: Dry, Drooling Pharnyx: Positive for: Other (intubated ) Nose (External): Positive for: Other (Dobhoff in place in R nares, NC in place) Respiratory/Chest: Positive for: Clear to Auscultation, Decreased Breath Sounds. Negative for: Respiratory Distress, Wheezes, Tachypneic Cardiovascular: Positive for: Normal S1, S2. Negative for: Murmurs Abdomen: Negative for: Tenderness, Peritoneal Signs, Guarding Back: Positive for: Normal Inspection Upper Extremity: Positive for: Normal Inspection, Other (flaccid). Negative for: Cyanosis, Edema Lower Extremity: Positive for: Edema (1+ pitting edema noted to right lower extremity; chronic diabetic ulcer noted to anterior anderson of left lower extremity ), Other (flaccid) Neurological: Negative for: GCS=15, CN II-XII Intact, Speech Normal Skin: Positive for: Warm, Dry, Normal Color, Other (Ecchymotic in R antecubital region, stable; ecchymoses at different levels of healing throughout extremities). Negative for: Rashes Psychiatric: Negative for: Oriented x 3, Normal Insight - Medications Active Medications: Active Medications Generic Name Dose Route Start Last Admin Trade Name Freq PRN Reason Stop Dose Admin Acetaminophen 650 mg 07/08/18 18:18 07/20/18 13:20 Tylenol 650mg/20.3ml Solution Ud PO 650 mg Q6H PRN Administration Fever 101F Albuterol/Ipratropium 3 ml 07/03/18 14:00 07/27/18 08:02 Duoneb 3 Mg/0.5 Mg (3 Ml) Ud IH 3 ml [id number] SEEMA Administration Albuterol/Ipratropium 3 ml 07/03/18 11:04 07/11/18 23:55 Duoneb 3 Mg/0.5 Mg (3 Ml) Ud IH 3 ml Q2H PRN Administration Shortness of Breath Digoxin 0.125 mg 07/13/18 14:00 07/26/18 15:21 Lanoxin IVP 0.125 mg 1400 SEEMA Administration Diltiazem HCl 60 mg 07/17/18 14:00 07/27/18 09:05 Cardizem PO 60 mg TID SEEMA Administration Famotidine 20 mg 07/24/18 11:15 07/27/18 11:17 Pepcid IVP 20 mg Q12H SEEMA Administration Propofol 1,000 mg in 100 mls @ 2.545 mls/hr 07/22/18 08:29 07/27/18 08:57 Diprivan IV 15 mcg/kg/min .Q24H PRN 7.634 mls/hr TITRATE PER MD ORDER Administration Protocol 5 MCG/KG/MIN Meropenem/Sodium Chloride 500 mg in 50 mls @ 100 mls/hr 07/22/18 18:15 07/27/18 09:05 Merrem Iv 500 Mg/Ns 50 Ml IVPB 07/29/18 18:16 100 mls/hr Q12 SEEMA Administration Protocol Insulin Human Regular 100 100 mls @ 15 mls/hr 07/24/18 08:24 07/26/18 08:35 units/ Sodium Chloride IV 2 units/hr .Q6H40M PRN 2 mls/hr TITRATE PER MD ORDER Titration Protocol 15 UNITS/HR Dextrose 1,000 mls @ 40 mls/hr 07/27/18 11:42 Dextrose 5% In Water 1000 Ml IV .Q24H SEEMA Insulin Detemir 30 unit 07/17/18 10:39 07/22/18 06:56 Levemir SC 30 units HS SEEMA Administration Insulin Human Lispro 0 units 07/26/18 10:00 07/27/18 11:15 Humalog High SC 4 units Q4H SEEMA Administration Protocol Vitamin A 1 applic 07/13/18 16:53 Vitamin A&D TP Q8 PRN Dry mouth - Patient Studies Lab Studies: Microbiology Studies 07/22/18 19:53 Blood Culture - Preliminary Blood-Venous NO GROWTH AFTER 4 DAYS 07/22/18 19:53 Blood Culture - Preliminary Blood-Venous NO GROWTH AFTER 4 DAYS 07/23/18 13:20 Gram Stain - Final Sputum Sputum Culture - Final Stenotrophomonas Maltophilia Lab Studies 07/27/18 07/27/18 07/27/18 Range/Units 06:30 06:30 06:09 WBC 11.3 H D (4.5-11.0) 10^3/uL RBC 2.95 L (3.5-6.1) 10^6/uL Hgb 7.9 L (14.0-18.0) g/dL Hct 25.9 L (42.0-52.0) % MCV 87.8 (80.0-105.0) fl MCH 26.8 (25.0-35.0) pg MCHC 30.5 L (31.0-37.0) g/dl RDW 17.1 H (11.5-14.5) % Plt Count 23 L* (120.0-450.0) 10^3/uL Manual Plt Count 50 L (120-450) K/mm3 Gran % 93.6 H (50.0-68.0) % Lymph % (Auto) 4.1 L (22.0-35.0) % Frederick % (Auto) 2.1 (1.0-6.0) % Eos % (Auto) 0.2 L (1.5-5.0) % Baso % (Auto) 0.0 (0.0-3.0) % Gran # 10.59 H (1.4-6.5) Lymph # (Auto) 0.5 L (1.2-3.4) Frederick # (Auto) 0.2 (0.1-0.6) Eos # (Auto) 0.0 (0.0-0.7) Baso # (Auto) 0.00 (0.0-2.0) K/mm3 pCO2 (35-45) mm/Hg pO2 (80-100) mm/Hg HCO3 (21-28) mmol/L ABG pH (7.35-7.45) ABG Total CO2 (22-28) mmol.L ABG O2 Saturation (95-98) % ABG O2 Content (15-23) ML/dl ABG Base Excess (-2.0-3.0) mmol/L ABG Hemoglobin (11.7-17.4) g/dL ABG Carboxyhemoglobin (0.5-1.5) % POC ABG HHb (Measured) (0-5) % ABG Methemoglobin (0.0-3.0) % ABG O2 Capacity (16-24) mL/dl Hgb O2 Saturation (95.0-98.0) % FiO2 % Sodium 142 (132-148) mmol/L Potassium 4.3 (3.6-5.0) mmol/L Chloride 119 H (98-107) mmol/L Carbon Dioxide 21 (21-33) mmol/L Anion Gap 6 L (10-20) BUN 62 H (7-21) mg/dL Creatinine 1.4 (0.8-1.5) mg/dl Est GFR ( Amer) > 60 Est GFR (Non-Af Amer) 51 POC Glucose (mg/dL) 161 H (65-110) mg/dL Random Glucose 162 H (70-110) mg/dL Calcium 7.4 L (8.4-10.5) mg/dL Total Bilirubin 0.5 (0.2-1.3) mg/dL AST 66 H (17-59) U/L ALT 77 H (7-56) U/L Alkaline Phosphatase 113 (38-126) U/L Total Protein 6.4 (5.8-8.3) g/dL Albumin 2.2 L (3.0-4.8) g/dL Globulin 4.2 gm/dL Albumin/Globulin Ratio 0.5 L (1.1-1.8) 07/27/18 07/27/18 07/27/18 Range/Units 05:30 01:59 00:18 WBC (4.5-11.0) 10^3/uL RBC (3.5-6.1) 10^6/uL Hgb (14.0-18.0) g/dL Hct (42.0-52.0) % MCV (80.0-105.0) fl MCH (25.0-35.0) pg MCHC (31.0-37.0) g/dl RDW (11.5-14.5) % Plt Count (120.0-450.0) 10^3/uL Manual Plt Count (120-450) K/mm3 Gran % (50.0-68.0) % Lymph % (Auto) (22.0-35.0) % Frederick % (Auto) (1.0-6.0) % Eos % (Auto) (1.5-5.0) % Baso % (Auto) (0.0-3.0) % Gran # (1.4-6.5) Lymph # (Auto) (1.2-3.4) Frederick # (Auto) (0.1-0.6) Eos # (Auto) (0.0-0.7) Baso # (Auto) (0.0-2.0) K/mm3 pCO2 29 L (35-45) mm/Hg pO2 137.0 H (80-100) mm/Hg HCO3 18.0 L (21-28) mmol/L ABG pH 7.40 (7.35-7.45) ABG Total CO2 18.9 L (22-28) mmol.L ABG O2 Saturation 99.7 H (95-98) % ABG O2 Content 10.3 L (15-23) ML/dl ABG Base Excess -6.1 L (-2.0-3.0) mmol/L ABG Hemoglobin 7.3 L (11.7-17.4) g/dL ABG Carboxyhemoglobin 1.8 H (0.5-1.5) % POC ABG HHb (Measured) 0.3 (0-5) % ABG Methemoglobin 0.8 (0.0-3.0) % ABG O2 Capacity 10.3 L (16-24) mL/dl Hgb O2 Saturation 97.1 (95.0-98.0) % FiO2 40.0 % Sodium (132-148) mmol/L Potassium (3.6-5.0) mmol/L Chloride (98-107) mmol/L Carbon Dioxide (21-33) mmol/L Anion Gap (10-20) BUN (7-21) mg/dL Creatinine (0.8-1.5) mg/dl Est GFR ( Amer) Est GFR (Non-Af Amer) POC Glucose (mg/dL) 208 H 180 H (65-110) mg/dL Random Glucose (70-110) mg/dL Calcium (8.4-10.5) mg/dL Total Bilirubin (0.2-1.3) mg/dL AST (17-59) U/L ALT (7-56) U/L Alkaline Phosphatase (38-126) U/L Total Protein (5.8-8.3) g/dL Albumin (3.0-4.8) g/dL Globulin gm/dL Albumin/Globulin Ratio (1.1-1.8) 07/26/18 07/26/18 07/26/18 Range/Units 22:07 17:44 15:09 WBC (4.5-11.0) 10^3/uL RBC (3.5-6.1) 10^6/uL Hgb (14.0-18.0) g/dL Hct (42.0-52.0) % MCV (80.0-105.0) fl MCH (25.0-35.0) pg MCHC (31.0-37.0) g/dl RDW (11.5-14.5) % Plt Count (120.0-450.0) 10^3/uL Manual Plt Count (120-450) K/mm3 Gran % (50.0-68.0) % Lymph % (Auto) (22.0-35.0) % Frederick % (Auto) (1.0-6.0) % Eos % (Auto) (1.5-5.0) % Baso % (Auto) (0.0-3.0) % Gran # (1.4-6.5) Lymph # (Auto) (1.2-3.4) Frederick # (Auto) (0.1-0.6) Eos # (Auto) (0.0-0.7) Baso # (Auto) (0.0-2.0) K/mm3 pCO2 (35-45) mm/Hg pO2 (80-100) mm/Hg HCO3 (21-28) mmol/L ABG pH (7.35-7.45) ABG Total CO2 (22-28) mmol.L ABG O2 Saturation (95-98) % ABG O2 Content (15-23) ML/dl ABG Base Excess (-2.0-3.0) mmol/L ABG Hemoglobin (11.7-17.4) g/dL ABG Carboxyhemoglobin (0.5-1.5) % POC ABG HHb (Measured) (0-5) % ABG Methemoglobin (0.0-3.0) % ABG O2 Capacity (16-24) mL/dl Hgb O2 Saturation (95.0-98.0) % FiO2 % Sodium (132-148) mmol/L Potassium (3.6-5.0) mmol/L Chloride (98-107) mmol/L Carbon Dioxide (21-33) mmol/L Anion Gap (10-20) BUN (7-21) mg/dL Creatinine (0.8-1.5) mg/dl Est GFR ( Amer) Est GFR (Non-Af Amer) POC Glucose (mg/dL) 203 H 316 H 387 H (65-110) mg/dL Random Glucose (70-110) mg/dL Calcium (8.4-10.5) mg/dL Total Bilirubin (0.2-1.3) mg/dL AST (17-59) U/L ALT (7-56) U/L Alkaline Phosphatase (38-126) U/L Total Protein (5.8-8.3) g/dL Albumin (3.0-4.8) g/dL Globulin gm/dL Albumin/Globulin Ratio (1.1-1.8) Laboratory Results - last 24 hr 07/26/18 07/26/18 07/26/18 15:09 17:44 22:07 WBC RBC Hgb Hct MCV MCH MCHC RDW Plt Count Manual Plt Count Gran % Lymph % (Auto) Frederick % (Auto) Eos % (Auto) Baso % (Auto) Gran # Lymph # (Auto) Frederick # (Auto) Eos # (Auto) Baso # (Auto) pCO2 pO2 HCO3 ABG pH ABG Total CO2 ABG O2 Saturation ABG O2 Content ABG Base Excess ABG Hemoglobin ABG Carboxyhemoglobin POC ABG HHb (Measured) ABG Methemoglobin ABG O2 Capacity Hgb O2 Saturation FiO2 Sodium Potassium Chloride Carbon Dioxide Anion Gap BUN Creatinine Est GFR ( Amer) Est GFR (Non-Af Amer) POC Glucose (mg/dL) 387 H 316 H 203 H Random Glucose Calcium Total Bilirubin AST ALT Alkaline Phosphatase Total Protein Albumin Globulin Albumin/Globulin Ratio 07/27/18 07/27/18 07/27/18 00:18 01:59 05:30 WBC RBC Hgb Hct MCV MCH MCHC RDW Plt Count Manual Plt Count Gran % Lymph % (Auto) Frederick % (Auto) Eos % (Auto) Baso % (Auto) Gran # Lymph # (Auto) Frederick # (Auto) Eos # (Auto) Baso # (Auto) pCO2 29 L pO2 137.0 H HCO3 18.0 L ABG pH 7.40 ABG Total CO2 18.9 L ABG O2 Saturation 99.7 H ABG O2 Content 10.3 L ABG Base Excess -6.1 L ABG Hemoglobin 7.3 L ABG Carboxyhemoglobin 1.8 H POC ABG HHb (Measured) 0.3 ABG Methemoglobin 0.8 ABG O2 Capacity 10.3 L Hgb O2 Saturation 97.1 FiO2 40.0 Sodium Potassium Chloride Carbon Dioxide Anion Gap BUN Creatinine Est GFR ( Amer) Est GFR (Non-Af Amer) POC Glucose (mg/dL) 180 H 208 H Random Glucose Calcium Total Bilirubin AST ALT Alkaline Phosphatase Total Protein Albumin Globulin Albumin/Globulin Ratio 07/27/18 07/27/18 07/27/18 06:09 06:30 06:30 WBC 11.3 H D RBC 2.95 L Hgb 7.9 L Hct 25.9 L MCV 87.8 MCH 26.8 MCHC 30.5 L RDW 17.1 H Plt Count 23 L* Manual Plt Count 50 L Gran % 93.6 H Lymph % (Auto) 4.1 L Frederick % (Auto) 2.1 Eos % (Auto) 0.2 L Baso % (Auto) 0.0 Gran # 10.59 H Lymph # (Auto) 0.5 L Frederick # (Auto) 0.2 Eos # (Auto) 0.0 Baso # (Auto) 0.00 pCO2 pO2 HCO3 ABG pH ABG Total CO2 ABG O2 Saturation ABG O2 Content ABG Base Excess ABG Hemoglobin ABG Carboxyhemoglobin POC ABG HHb (Measured) ABG Methemoglobin ABG O2 Capacity Hgb O2 Saturation FiO2 Sodium 142 Potassium 4.3 Chloride 119 H Carbon Dioxide 21 Anion Gap 6 L BUN 62 H Creatinine 1.4 Est GFR ( Amer) > 60 Est GFR (Non-Af Amer) 51 POC Glucose (mg/dL) 161 H Random Glucose 162 H Calcium 7.4 L Total Bilirubin 0.5 AST 66 H ALT 77 H Alkaline Phosphatase 113 Total Protein 6.4 Albumin 2.2 L Globulin 4.2 Albumin/Globulin Ratio 0.5 L Radiology Impressions: Radiology Impressions Chest X-Ray 07/27/18 06:00 IMPRESSION: No active disease. Fingerstick Blood Sugar Results: 241 Critical Care Progress Note - Nutrition Nutrition: Nutrition Category Date Time Status NPO Diet [DIET] Diets 07/06/18 Breakfast Ordered Assessment/Plan - Assessment and Plan (Free Text) Assessment: 62 y/o male with PMHx of COPD, active smoker 1pk per day, HTN, DM, PVD, presents with ER with 2 day history of fever, chills, associated with cough that is non- productive. Patient was initially started on heparin drip given elevated troponin, and markedly diminished EF. Hep drip currently held secondary to thrombocytopenia. Initially paralyzed on Nimbex after overbreathing ventilator. Extubated last week, ARDS resolved and s/p merrem and doxycycline antibiotic therapy for pneumonia. Awaiting LTAC facility approval. Plan: Neuro: Critical Illness Polyneuropathy - approved for LTAC placement, awaiting facility approval - ABG today shows pH 7.4, pCO2 29, O2 137 - intubated on 07/22/18 due to not protecting airway - sedated on propofol drip - Neuro consult - Dr. Harvinder Mcdaniels - Poor motor function likely from critical illness polyneuropathy - Results of EEG 07/10/18: moderate nonspecific diffuse disturbance of cortical activity, nonspecific diffuse fernandez matter dysfunction, no seizures, not in status epilepticus - 07/13/18 MRI brain without contrast negative for acute abnormalitie, 07/10/18 CT head without contrast negative Pulmology S/p intubation on 07/22/18 -unable to protect airway -ABG is improved post intubation on 07/22/18 with pH of 7.31 and pCO2 of 37. Sedated on propofol -ABG on 07/24/09 shows pH of 7.41, pCO2 30 and pO2 of 138 CAP and Flu A positive - completed tamiflu and merrem/doxycycline treatment - CXR 07/22 shows new right sided infiltrate, today is day 3 merrem - Duonebs seema q6 and PRN q2 - Urine Lg and Strep negative - Procal is 0.16 on 07/19 from 0.6 on 07/14 - ID eval: Dr. Fernandes, Pulm consulted - Dr. Burr Cardiology NSTEMI -07/03 Troponins elevated 0.48, 0.67, 0.67 - Cardiology consulted - Dr. Saxena. Cardiac cath on hold due to persistent thrombocytopenia. Hold Lasix per cardio. - Dig level 07/20 is 0.9 WNL - Hold IVF d/t poor EF, Hold Heparin drip HFrEF - BNP [id number] on 07/03 - 07/03/18 echo report shows EF 14.2%, mildly dilated LV, systolic function severely impaired, akinetic septum, TR and pulm HTN -continue digoxin 0.125mg IV, cardizem 60mg TID for afib Heme Chronic Thrombocytopenia, ITP - Received previous transfusions as outpatient - [facility] platelets are 50 today - total 6 unit PLT transfused. IV gammaglobulin 5 day course completed on 07/11/18 - Will transfuse if <20 or actively bleeding per Hem recs - Will hold off on DVT chemoprophylaxis at this time, may resume if platelets >50 per heme/onc - Hem consult placed- Dr. Estevez - Negative IVONE and ANCA studies, ESR 45, HIT antibody negative Endo Uncontrolled DM - continue high insulin sliding scale, ACHS - Hgb a1c 8.2 - Diabetic education GI - OG tube in place, hold tube feedings for now due to uncontrolled sugars, electrolytes - swallow eval 1/11/19: Pt. poorly responsive, with hyper gag reflex. No response to oral stimulation or spoon/straw tip. - Shock liver resolved - Hep panel negative - 07/03/18 RUQ U/S shows hepatosplenomegaly - pepcid for PPX Nephro OG on HD - BUN/Cr is 62/1.4, downtrending - hypernatremia - resolved, Na is 142 today - continue D5 free water - Strict Is and Os, oliveros in place - now off HD - Tolerated first HD on 07/07/18 - Nephro consult - recs appreciated. Per nephro, no hemodialysis at this time - Continue water flushes per Nephro recs in light of low EF. - F/u nephro recs to consider repeating urine electrolytes ID RLL Pneumonia - afebrile overnight, WBC downtrending today - s/p treatment of flu and pna with tamiflu and merrem/doxy - day 6 merrem for new right sided infliltrate on CXR - Ammonia level <9 - ID eval: Dr. Fernandes - Repeat blood cx neg after 5 days, repeat UA negative, repeat sputum cx growing moderate amount of yeast. Dispo: Approved for LTAC, awaiting family choice of LTAC facility after medical clearance Patient seen and case discussed with attending, Dr. Sung <Golden Sung - Last Filed: 07/27/18 13:51> CCU Objective - Vital Signs / Intake & Output Intake and Output (Last 8hrs): Intake & Output 07/26/18 07/27/18 07/27/18 22:59 06:59 14:59 Intake Total 2873 2378 100 Output Total 610 1050 Balance 2263 1328 100 Weight 188 lb Intake: IV 1403 1338 100 IVF 1000 1200 antibiotics 200 50 insulin 15 propofol 88 88 Oral 0 0 Tube Feeding 540 540 TPN/PPN 0 0 Blood Product 0 0 Lipid 0 0 Albumin 0 0 Other 930 500 Output: Gastric Amount 10 Stomach 10 Urine 600 1050 Urethral (Oliveros) 600 1050 Stool 0 0 Urine/Stool Mix 0 0 Emesis 0 0 Oral Regurgitation 0 0 Other 0 0 Other: # Voids Urethral (Oliveros) 0 0 # Bowel Movements 2 2 - Medications Active Medications: Active Medications Generic Name Dose Route Start Last Admin Trade Name Freq PRN Reason Stop Dose Admin Acetaminophen 650 mg 07/08/18 18:18 07/20/18 13:20 Tylenol 650mg/20.3ml Solution Ud PO 650 mg Q6H PRN Administration Fever 101F Albuterol/Ipratropium 3 ml 07/03/18 14:00 07/27/18 08:02 Duoneb 3 Mg/0.5 Mg (3 Ml) Ud IH 3 ml [id number] SEEMA Administration Albuterol/Ipratropium 3 ml 07/03/18 11:04 07/11/18 23:55 Duoneb 3 Mg/0.5 Mg (3 Ml) Ud IH 3 ml Q2H PRN Administration Shortness of Breath Digoxin 0.125 mg 07/13/18 14:00 07/26/18 15:21 Lanoxin IVP 0.125 mg 1400 SEEMA Administration Diltiazem HCl 60 mg 07/17/18 14:00 07/27/18 09:05 Cardizem PO 60 mg TID SEEMA Administration Famotidine 20 mg 07/24/18 11:15 07/27/18 11:17 Pepcid IVP 20 mg Q12H SEEMA Administration Propofol 1,000 mg in 100 mls @ 2.545 mls/hr 07/22/18 08:29 07/27/18 08:57 Diprivan IV 15 mcg/kg/min .Q24H PRN 7.634 mls/hr TITRATE PER MD ORDER Administration Protocol 5 MCG/KG/MIN Meropenem/Sodium Chloride 500 mg in 50 mls @ 100 mls/hr 07/22/18 18:15 07/27/18 09:05 Merrem Iv 500 Mg/Ns 50 Ml IVPB 07/29/18 18:16 100 mls/hr Q12 SEEMA Administration Protocol Insulin Human Regular 100 100 mls @ 15 mls/hr 07/24/18 08:24 07/26/18 08:35 units/ Sodium Chloride IV 2 units/hr .Q6H40M PRN 2 mls/hr TITRATE PER MD ORDER Titration Protocol 15 UNITS/HR Dextrose 1,000 mls @ 40 mls/hr 07/27/18 11:42 Dextrose 5% In Water 1000 Ml IV .Q24H SEEMA Dobutamine HCl/Dextrose 500 mg in 250 mls @ 12.791 mls/hr 07/27/18 12:50 Dobutamine/Dextrose 5% 500mg/250ml IV .[id number] PRN TITRATE PER PROTOCOL Protocol 5 MCG/KG/MIN Insulin Detemir 30 unit 07/17/18 10:39 07/22/18 06:56 Levemir SC 30 units HS SEEMA Administration Insulin Human Lispro 0 units 07/26/18 10:00 07/27/18 11:15 Humalog High SC 4 units Q4H SEEMA Administration Protocol Vitamin A 1 applic 07/13/18 16:53 Vitamin A&D TP Q8 PRN Dry mouth - Patient Studies Lab Studies: Microbiology Studies 07/22/18 19:53 Blood Culture - Preliminary Blood-Venous NO GROWTH AFTER 4 DAYS 07/22/18 19:53 Blood Culture - Preliminary Blood-Venous NO GROWTH AFTER 4 DAYS Lab Studies 07/27/18 07/27/18 07/27/18 Range/Units 06:30 06:30 06:09 WBC 11.3 H D (4.5-11.0) 10^3/uL RBC 2.95 L (3.5-6.1) 10^6/uL Hgb 7.9 L (14.0-18.0) g/dL Hct 25.9 L (42.0-52.0) % MCV 87.8 (80.0-105.0) fl MCH 26.8 (25.0-35.0) pg MCHC 30.5 L (31.0-37.0) g/dl RDW 17.1 H (11.5-14.5) % Plt Count 23 L* (120.0-450.0) 10^3/uL Manual Plt Count 50 L (120-450) K/mm3 Gran % 93.6 H (50.0-68.0) % Lymph % (Auto) 4.1 L (22.0-35.0) % Frederick % (Auto) 2.1 (1.0-6.0) % Eos % (Auto) 0.2 L (1.5-5.0) % Baso % (Auto) 0.0 (0.0-3.0) % Gran # 10.59 H (1.4-6.5) Lymph # (Auto) 0.5 L (1.2-3.4) Frederick # (Auto) 0.2 (0.1-0.6) Eos # (Auto) 0.0 (0.0-0.7) Baso # (Auto) 0.00 (0.0-2.0) K/mm3 pCO2 (35-45) mm/Hg pO2 (80-100) mm/Hg HCO3 (21-28) mmol/L ABG pH (7.35-7.45) ABG Total CO2 (22-28) mmol.L ABG O2 Saturation (95-98) % ABG O2 Content (15-23) ML/dl ABG Base Excess (-2.0-3.0) mmol/L ABG Hemoglobin (11.7-17.4) g/dL ABG Carboxyhemoglobin (0.5-1.5) % POC ABG HHb (Measured) (0-5) % ABG Methemoglobin (0.0-3.0) % ABG O2 Capacity (16-24) mL/dl Hgb O2 Saturation (95.0-98.0) % FiO2 % Sodium 142 (132-148) mmol/L Potassium 4.3 (3.6-5.0) mmol/L Chloride 119 H (98-107) mmol/L Carbon Dioxide 21 (21-33) mmol/L Anion Gap 6 L (10-20) BUN 62 H (7-21) mg/dL Creatinine 1.4 (0.8-1.5) mg/dl Est GFR ( Amer) > 60 Est GFR (Non-Af Amer) 51 POC Glucose (mg/dL) 161 H (65-110) mg/dL Random Glucose 162 H (70-110) mg/dL Calcium 7.4 L (8.4-10.5) mg/dL Total Bilirubin 0.5 (0.2-1.3) mg/dL AST 66 H (17-59) U/L ALT 77 H (7-56) U/L Alkaline Phosphatase 113 (38-126) U/L Total Protein 6.4 (5.8-8.3) g/dL Albumin 2.2 L (3.0-4.8) g/dL Globulin 4.2 gm/dL Albumin/Globulin Ratio 0.5 L (1.1-1.8) 07/27/18 07/27/18 07/27/18 Range/Units 05:30 01:59 00:18 WBC (4.5-11.0) 10^3/uL RBC (3.5-6.1) 10^6/uL Hgb (14.0-18.0) g/dL Hct (42.0-52.0) % MCV (80.0-105.0) fl MCH (25.0-35.0) pg MCHC (31.0-37.0) g/dl RDW (11.5-14.5) % Plt Count (120.0-450.0) 10^3/uL Manual Plt Count (120-450) K/mm3 Gran % (50.0-68.0) % Lymph % (Auto) (22.0-35.0) % Frederick % (Auto) (1.0-6.0) % Eos % (Auto) (1.5-5.0) % Baso % (Auto) (0.0-3.0) % Gran # (1.4-6.5) Lymph # (Auto) (1.2-3.4) Frederick # (Auto) (0.1-0.6) Eos # (Auto) (0.0-0.7) Baso # (Auto) (0.0-2.0) K/mm3 pCO2 29 L (35-45) mm/Hg pO2 137.0 H (80-100) mm/Hg HCO3 18.0 L (21-28) mmol/L ABG pH 7.40 (7.35-7.45) ABG Total CO2 18.9 L (22-28) mmol.L ABG O2 Saturation 99.7 H (95-98) % ABG O2 Content 10.3 L (15-23) ML/dl ABG Base Excess -6.1 L (-2.0-3.0) mmol/L ABG Hemoglobin 7.3 L (11.7-17.4) g/dL ABG Carboxyhemoglobin 1.8 H (0.5-1.5) % POC ABG HHb (Measured) 0.3 (0-5) % ABG Methemoglobin 0.8 (0.0-3.0) % ABG O2 Capacity 10.3 L (16-24) mL/dl Hgb O2 Saturation 97.1 (95.0-98.0) % FiO2 40.0 % Sodium (132-148) mmol/L Potassium (3.6-5.0) mmol/L Chloride (98-107) mmol/L Carbon Dioxide (21-33) mmol/L Anion Gap (10-20) BUN (7-21) mg/dL Creatinine (0.8-1.5) mg/dl Est GFR ( Amer) Est GFR (Non-Af Amer) POC Glucose (mg/dL) 208 H 180 H (65-110) mg/dL Random Glucose (70-110) mg/dL Calcium (8.4-10.5) mg/dL Total Bilirubin (0.2-1.3) mg/dL AST (17-59) U/L ALT (7-56) U/L Alkaline Phosphatase (38-126) U/L Total Protein (5.8-8.3) g/dL Albumin (3.0-4.8) g/dL Globulin gm/dL Albumin/Globulin Ratio (1.1-1.8) 07/26/18 07/26/18 07/26/18 Range/Units 22:07 17:44 15:09 WBC (4.5-11.0) 10^3/uL RBC (3.5-6.1) 10^6/uL Hgb (14.0-18.0) g/dL Hct (42.0-52.0) % MCV (80.0-105.0) fl MCH (25.0-35.0) pg MCHC (31.0-37.0) g/dl RDW (11.5-14.5) % Plt Count (120.0-450.0) 10^3/uL Manual Plt Count (120-450) K/mm3 Gran % (50.0-68.0) % Lymph % (Auto) (22.0-35.0) % Frederick % (Auto) (1.0-6.0) % Eos % (Auto) (1.5-5.0) % Baso % (Auto) (0.0-3.0) % Gran # (1.4-6.5) Lymph # (Auto) (1.2-3.4) Frederick # (Auto) (0.1-0.6) Eos # (Auto) (0.0-0.7) Baso # (Auto) (0.0-2.0) K/mm3 pCO2 (35-45) mm/Hg pO2 (80-100) mm/Hg HCO3 (21-28) mmol/L ABG pH (7.35-7.45) ABG Total CO2 (22-28) mmol.L ABG O2 Saturation (95-98) % ABG O2 Content (15-23) ML/dl ABG Base Excess (-2.0-3.0) mmol/L ABG Hemoglobin (11.7-17.4) g/dL ABG Carboxyhemoglobin (0.5-1.5) % POC ABG HHb (Measured) (0-5) % ABG Methemoglobin (0.0-3.0) % ABG O2 Capacity (16-24) mL/dl Hgb O2 Saturation (95.0-98.0) % FiO2 % Sodium (132-148) mmol/L Potassium (3.6-5.0) mmol/L Chloride (98-107) mmol/L Carbon Dioxide (21-33) mmol/L Anion Gap (10-20) BUN (7-21) mg/dL Creatinine (0.8-1.5) mg/dl Est GFR ( Amer) Est GFR (Non-Af Amer) POC Glucose (mg/dL) 203 H 316 H 387 H (65-110) mg/dL Random Glucose (70-110) mg/dL Calcium (8.4-10.5) mg/dL Total Bilirubin (0.2-1.3) mg/dL AST (17-59) U/L ALT (7-56) U/L Alkaline Phosphatase (38-126) U/L Total Protein (5.8-8.3) g/dL Albumin (3.0-4.8) g/dL Globulin gm/dL Albumin/Globulin Ratio (1.1-1.8) Laboratory Results - last 24 hr 07/26/18 07/26/18 07/26/18 15:09 17:44 22:07 WBC RBC Hgb Hct MCV MCH MCHC RDW Plt Count Manual Plt Count Gran % Lymph % (Auto) Frederick % (Auto) Eos % (Auto) Baso % (Auto) Gran # Lymph # (Auto) Frederick # (Auto) Eos # (Auto) Baso # (Auto) pCO2 pO2 HCO3 ABG pH ABG Total CO2 ABG O2 Saturation ABG O2 Content ABG Base Excess ABG Hemoglobin ABG Carboxyhemoglobin POC ABG HHb (Measured) ABG Methemoglobin ABG O2 Capacity Hgb O2 Saturation FiO2 Sodium Potassium Chloride Carbon Dioxide Anion Gap BUN Creatinine Est GFR ( Amer) Est GFR (Non-Af Amer) POC Glucose (mg/dL) 387 H 316 H 203 H Random Glucose Calcium Total Bilirubin AST ALT Alkaline Phosphatase Total Protein Albumin Globulin Albumin/Globulin Ratio 07/27/18 07/27/18 07/27/18 00:18 01:59 05:30 WBC RBC Hgb Hct MCV MCH MCHC RDW Plt Count Manual Plt Count Gran % Lymph % (Auto) Frederick % (Auto) Eos % (Auto) Baso % (Auto) Gran # Lymph # (Auto) Frederick # (Auto) Eos # (Auto) Baso # (Auto) pCO2 29 L pO2 137.0 H HCO3 18.0 L ABG pH 7.40 ABG Total CO2 18.9 L ABG O2 Saturation 99.7 H ABG O2 Content 10.3 L ABG Base Excess -6.1 L ABG Hemoglobin 7.3 L ABG Carboxyhemoglobin 1.8 H POC ABG HHb (Measured) 0.3 ABG Methemoglobin 0.8 ABG O2 Capacity 10.3 L Hgb O2 Saturation 97.1 FiO2 40.0 Sodium Potassium Chloride Carbon Dioxide Anion Gap BUN Creatinine Est GFR ( Amer) Est GFR (Non-Af Amer) POC Glucose (mg/dL) 180 H 208 H Random Glucose Calcium Total Bilirubin AST ALT Alkaline Phosphatase Total Protein Albumin Globulin Albumin/Globulin Ratio 07/27/18 07/27/18 07/27/18 06:09 06:30 06:30 WBC 11.3 H D RBC 2.95 L Hgb 7.9 L Hct 25.9 L MCV 87.8 MCH 26.8 MCHC 30.5 L RDW 17.1 H Plt Count 23 L* Manual Plt Count 50 L Gran % 93.6 H Lymph % (Auto) 4.1 L Frederick % (Auto) 2.1 Eos % (Auto) 0.2 L Baso % (Auto) 0.0 Gran # 10.59 H Lymph # (Auto) 0.5 L Frederick # (Auto) 0.2 Eos # (Auto) 0.0 Baso # (Auto) 0.00 pCO2 pO2 HCO3 ABG pH ABG Total CO2 ABG O2 Saturation ABG O2 Content ABG Base Excess ABG Hemoglobin ABG Carboxyhemoglobin POC ABG HHb (Measured) ABG Methemoglobin ABG O2 Capacity Hgb O2 Saturation FiO2 Sodium 142 Potassium 4.3 Chloride 119 H Carbon Dioxide 21 Anion Gap 6 L BUN 62 H Creatinine 1.4 Est GFR ( Amer) > 60 Est GFR (Non-Af Amer) 51 POC Glucose (mg/dL) 161 H Random Glucose 162 H Calcium 7.4 L Total Bilirubin 0.5 AST 66 H ALT 77 H Alkaline Phosphatase 113 Total Protein 6.4 Albumin 2.2 L Globulin 4.2 Albumin/Globulin Ratio 0.5 L Radiology Impressions: Radiology Impressions Chest X-Ray 07/27/18 06:00 IMPRESSION: No active disease. Critical Care Progress Note - Nutrition Nutrition: Nutrition Category Date Time Status NPO Diet [DIET] Diets 07/06/18 Breakfast Ordered Assessment/Plan - Assessment and Plan (Free Text) Assessment: Patient seen and examined on rounds, with resident, agree with note with following additions/exceptions: Patient is 62yo male with PMhx of COPD, active smoker 2pks per day, HTN, DM, PVD, admitted for hypoxic respiratory failure, 2/2 Influenza PNA, and superimposed bacterial PNA. Pt is currently intubated on PRVC, ABG acceptable Pt's with chornic thrombocytopenia, no clinical evidence of overt bleeding Adequate UOP Patient with CIP Na improved PNA ARDS, resolved FLU Resp failure MODS Renal failure, s/p HD Thrombocytopenia rule out ITP/TTP COPD HTN PVD DM CIP Hypernatremia, resovled Recommend: - cont with vent support, low tidal vol ventilation, daily sedation vacation, CPA trials - abx as per ID - BP control - monitor LFTs - FS control - I/Os - DC IVF - Start Dobutamine - Free water flushes 200cc Q6hr - follow up cardio - GI ppx - DVT ppx - Monitor in MICU Patient needs Ltach
[2018-07-27] MEDS: Digoxin 500 mcg/2ml (0.5 mg/2ml) Inj IVP SCH (14:24)
[2018-07-27] MEDS: DOBUTamine 500mg/250ml D5W 500 MG/250 ML BAG IV PRN (14:30)
--- NOTE | 2018-07-27 17:37 | PN ---
DATE: 07/27/2018 SUBJECTIVE: The patient is seen lying in bed in the ICU. He is on IV sedation. He is not really responsive. Just mild grimace to deep pain. He is receiving tube feeds. He remains on mechanical ventilation. PHYSICAL EXAMINATION: GENERAL: Elderly male lying in bed in the ICU. VITAL SIGNS: Blood pressure 122/50, heart rate 61, respiratory rate 26, temperature 99.3, T-max is 100. HEENT: Normocephalic, atraumatic, positive pallor. NECK: Supple, no JVD. LUNGS: Bilateral equal entry, bilateral equal expansion, bilateral good air entry. CARDIAC: S1, S2, regular rate and rhythm, no murmur, no rub. ABDOMEN: Obese, distended, soft, nontender, bowel sounds present. EXTREMITIES: No lower extremity edema, chronic stasis changes. INTAKE AND OUTPUT: 5256/1660. LABORATORY DATA: WBC 11, hemoglobin 7.9, hematocrit 26, platelets 23. Sodium 142, potassium 4.3, chloride 119, CO2 of 21, BUN 62, creatinine 1.4, glucose 162, calcium 7.4. AST 66, ALT 77, albumin 2.2, corrected calcium is 8.5. PH 7.4, pCO2 29, pO2 137. Sputum culture Stenotrophomonas maltophilia from 07/23/2018. Blood cultures, no growth. CURRENT MEDICATIONS: Cardizem 60 t.i.d., D5W at 100, Diprivan, DuoNeb, insulin at 2 units per hour, digoxin, Levemir insulin, meropenem 500 every 12 hours, Pepcid, Tylenol, vitamin A, desmopressin. ASSESSMENT: 1. Multiorgan dysfunction syndrome, respiratory failure, critical illness polyneuropathy. 2. New fever. 3. Leukocytosis. 4.. Hypernatremia much improved. 5. Acute kidney injury nicely resolving. Creatinine actually better than baseline. 6. Non-insulin dependent diabetes mellitus. 7. History of immune thrombocytopenic purpura, severe thrombocytopenia,? disseminated intravascular coagulation. 8. Atrial fibrillation. 9. Severe dilated cardiomyopathy, decreased ejection fraction. 10. Status post community-acquired pneumonia, influenza. 11. Severe malnutrition, hypoalbuminemia. PLAN: 1. Decrease D5W to 40 mL/hour. 2. Continue free water via the NG. 3. Continue NG tube feedings. 4. Continue antibiotics as per ID recommendations. 5. The patient is status post IVIG for thrombocytopenia. 6. The patient is status post high-dose steroids for critical illness polyneuropathy. 7. No indication for renal replacement therapy any more. 8. Avoid nephrotoxins. 9. Remains critically ill, prognosis remains poor. Case discussed with dialysis nurse at length, case discussed with the ICU nursing staff, case discussed with ID. More than 35 minutes spent in the care of this critically ill patient.. Bobbi Sullivan MD
--- NOTE | 2018-07-27 18:13 | PN ---
DATE: 07/27/2018 SUBJECTIVE: The patient remains on a ventilator and is sedated. PHYSICAL EXAMINATION: VITAL SIGNS: Blood pressure 122/50 and heart rate in 60s. NECK: Negative JVD. LUNGS: Decreased breath sounds bilaterally. HEART: Regular S1 and S2. EXTREMITIES: Without change. LABORATORY DATA: Hemoglobin is 7.9; the platelet count remains low at 23,000. Chemistry; his BUN and creatinine is 62 and 1.4, glucose 162. IMPRESSION: 1. Respiratory failure. 2. Bilateral pneumonia. 3. Renal insufficiency. 4. Diabetes mellitus. 5. Diabetic cardiomyopathy. 6. Dua-YP-dukakkapy myocardial infarction. 7. Severe thrombocytopenia. PLAN: Given these findings, there is no evidence for acute systolic CHF now; however, we will give the patient a trial of IV inotropic therapy to see when we can wean him off the ventilator. Benjamin Saxena MD
[2018-07-28] MEDS: Insulin Lispro (HUMAlog) HIGH Coverage SC SCH ×6 (02:04→22:11)
[2018-07-28] MEDS: Albuterol-Ipratrop 3 mg / 0.5 (3 ml) UD IH SCH ×4 (02:50→19:21)
[2018-07-28 06:46] LABS: ARTERIAL BLOOD GAS HCO3 18.3 mmol/L (21-28); ARTERIAL BLOOD GAS HEMOGLOBIN 6.3 g/dL (11.7-17.4); ARTERIAL BLOOD GAS O2 SAT 100.3 % (95-98); ARTERIAL BLOOD GAS PCO2 31 mm/Hg (35-45); ARTERIAL BLOOD GAS PH 7.38 (7.35-7.45); ARTERIAL BLOOD GAS TCO2 19.3 mmol.L (22-28)
[2018-07-28 07:04] LABS: EOS # 0.1 (0.0-0.7); EOS % 0.9 % (1.5-5.0); GRAN # 8.67 (1.4-6.5); LYMPH # 0.5 (1.2-3.4); LYMPH % 4.9 % (22.0-35.0); MEAN CELL VOLUME 88.3 fl (80.0-105.0); MEAN CORPUSCULAR HEMOGLOBIN 27.3 pg (25.0-35.0); MONO % 0.2 % (1.0-6.0); RBC 2.56 10^6/uL (3.5-6.1); RED CELL DISTRIBUTION WIDTH 17.4 % (11.5-14.5); WHITE BLOOD COUNT 9.2 10^3/uL (4.5-11.0)
--- NOTE | 2018-07-28 07:19 | CP.CCUPN ---
<Dannie Yeh - Last Filed: 07/28/18 10:34> CCU Subjective - Physician Review Subjective (Free Text): Dannie Yeh PGY1 Critical Care Progress Note Patient seen and examined at bedside this morning. No acute events reported overnight. Patient continues to be intubated and sedated. 12 point ROS limited due to patient status. Will try sedation vacation today. Will administer 1 unit PRBC and 1 unit platelets today. Per social service assistant, paperwork sent to medicare, awaiting approval. Transfer to LTAC facility pending. CCU Objective - Vital Signs / Intake & Output Vital Signs (Last 4 hours): Vital Signs Temp Pulse BP Pulse Ox 07/28/18 06:00 98.4 F 94 H 139/67 100 07/28/18 05:00 98.2 F 92 H 131/59 L 99 07/28/18 04:00 98.2 F 143/60 07/28/18 03:59 80 100 Intake and Output (Last 8hrs): Intake & Output 07/27/18 07/28/18 07/28/18 22:59 06:59 14:59 Intake Total 1976 1690 Output Total 1100 950 Balance 876 740 Weight 189 lb Intake: IV 1076 650 IVF 780 Left Upper arm 200 650 propofol 96 Tube Feeding 400 540 Other 500 500 Output: Urine 1100 950 Urethral (Oliveros) 1100 950 - Physical Exam Head: Positive for: Atraumatic, Normocephalic Pupils: Positive for: PERRL Extroacular Muscles: Negative for: EOMI (unable to be assessed) Conjunctiva: Positive for: Normal Mouth: Positive for: Dry, Drooling Pharnyx: Positive for: Other (intubated ) Respiratory/Chest: Positive for: Clear to Auscultation, Decreased Breath Sounds. Negative for: Respiratory Distress, Wheezes, Tachypneic Cardiovascular: Positive for: Normal S1, S2. Negative for: Murmurs Abdomen: Negative for: Tenderness, Peritoneal Signs, Guarding Back: Positive for: Normal Inspection Upper Extremity: Positive for: Normal Inspection, Other (flaccid). Negative for: Cyanosis, Edema Lower Extremity: Positive for: Edema (1+ pitting edema noted to right lower extremity; chronic diabetic ulcer noted to anterior anderson of left lower extremity ), Other (flaccid) Neurological: Negative for: GCS=15, CN II-XII Intact, Speech Normal Skin: Positive for: Warm, Dry, Normal Color, Other (Ecchymotic in R antecubital region, stable; ecchymoses at different levels of healing throughout extremities). Negative for: Rashes Psychiatric: Negative for: Oriented x 3, Normal Insight - Medications Active Medications: Active Medications Generic Name Dose Route Start Last Admin Trade Name Freq PRN Reason Stop Dose Admin Acetaminophen 650 mg 07/08/18 18:18 07/20/18 13:20 Tylenol 650mg/20.3ml Solution Ud PO 650 mg Q6H PRN Administration Fever 101F Albuterol/Ipratropium 3 ml 07/03/18 14:00 07/28/18 02:50 Duoneb 3 Mg/0.5 Mg (3 Ml) Ud IH 3 ml [id number] SEEMA Administration Albuterol/Ipratropium 3 ml 07/03/18 11:04 07/11/18 23:55 Duoneb 3 Mg/0.5 Mg (3 Ml) Ud IH 3 ml Q2H PRN Administration Shortness of Breath Digoxin 0.125 mg 07/13/18 14:00 07/27/18 14:24 Lanoxin IVP 0.125 mg 1400 SEEMA Administration Diltiazem HCl 60 mg 07/17/18 14:00 07/27/18 17:54 Cardizem PO 60 mg TID SEEMA Administration Famotidine 20 mg 07/24/18 11:15 07/27/18 22:36 Pepcid IVP 20 mg Q12H SEEMA Administration Propofol 1,000 mg in 100 mls @ 2.545 mls/hr 07/22/18 08:29 07/27/18 08:57 Diprivan IV 15 mcg/kg/min .Q24H PRN 7.634 mls/hr TITRATE PER MD ORDER Administration Protocol 5 MCG/KG/MIN Meropenem/Sodium Chloride 500 mg in 50 mls @ 100 mls/hr 07/22/18 18:15 07/27/18 21:50 Merrem Iv 500 Mg/Ns 50 Ml IVPB 07/29/18 18:16 100 mls/hr Q12 SEEMA Administration Protocol Insulin Human Regular 100 100 mls @ 15 mls/hr 07/24/18 08:24 07/26/18 08:35 units/ Sodium Chloride IV 2 units/hr .[id number] PRN 2 mls/hr TITRATE PER MD ORDER Titration Protocol 15 UNITS/HR Dextrose 1,000 mls @ 40 mls/hr 07/27/18 11:42 07/27/18 12:00 Dextrose 5% In Water 1000 Ml IV 40 mls/hr .Q24H SEEMA Administration Dobutamine HCl/Dextrose 500 mg in 250 mls @ 12.791 mls/hr 07/27/18 12:50 07/27/18 14:30 Dobutamine/Dextrose 5% 500mg/250ml IV 5 mcg/kg/min .[id number] PRN 12.791 mls/hr TITRATE PER PROTOCOL Administration Protocol 5 MCG/KG/MIN Insulin Detemir 30 unit 07/17/18 10:39 07/22/18 06:56 Levemir SC 30 units HS SEEMA Administration Insulin Human Lispro 0 units 07/26/18 10:00 07/28/18 02:04 Humalog High SC 3 units Q4H SEEMA Administration Protocol Vitamin A 1 applic 07/13/18 16:53 Vitamin A&D TP Q8 PRN Dry mouth - Patient Studies Lab Studies: Microbiology Studies 07/22/18 19:53 Blood Culture - Final Blood-Venous NO GROWTH AFTER 5 DAYS Gram Stain - Final TEST NOT PERFORMED 07/22/18 19:53 Blood Culture - Final Blood-Venous NO GROWTH AFTER 5 DAYS Gram Stain - Final TEST NOT PERFORMED Lab Studies 07/28/18 07/28/18 07/27/18 Range/Units 06:30 02:03 21:58 WBC (4.5-11.0) 10^3/uL RBC (3.5-6.1) 10^6/uL Hgb (14.0-18.0) g/dL Hct (42.0-52.0) % MCV (80.0-105.0) fl MCH (25.0-35.0) pg MCHC (31.0-37.0) g/dl RDW (11.5-14.5) % Plt Count (120.0-450.0) 10^3/uL Manual Plt Count (120-450) K/mm3 Gran % (50.0-68.0) % Lymph % (Auto) (22.0-35.0) % Scott % (Auto) (1.0-6.0) % Eos % (Auto) (1.5-5.0) % Baso % (Auto) (0.0-3.0) % Gran # (1.4-6.5) Lymph # (Auto) (1.2-3.4) Scott # (Auto) (0.1-0.6) Eos # (Auto) (0.0-0.7) Baso # (Auto) (0.0-2.0) K/mm3 pCO2 31 L (35-45) mm/Hg pO2 141.0 H (80-100) mm/Hg HCO3 18.3 L (21-28) mmol/L ABG pH 7.38 (7.35-7.45) ABG Total CO2 19.3 L (22-28) mmol.L ABG O2 Saturation 100.3 H (95-98) % ABG O2 Content 9.0 L (15-23) ML/dl ABG Base Excess -6.2 L (-2.0-3.0) mmol/L ABG Hemoglobin 6.3 L (11.7-17.4) g/dL ABG Carboxyhemoglobin 2.2 H (0.5-1.5) % POC ABG HHb (Measured) -0.3 L (0-5) % ABG Methemoglobin 0.6 (0.0-3.0) % ABG O2 Capacity 9.0 L (16-24) mL/dl Hgb O2 Saturation 97.5 (95.0-98.0) % FiO2 40.0 % Sodium (132-148) mmol/L Potassium (3.6-5.0) mmol/L Chloride (98-107) mmol/L Carbon Dioxide (21-33) mmol/L Anion Gap (10-20) BUN (7-21) mg/dL Creatinine (0.8-1.5) mg/dl Est GFR ( Amer) Est GFR (Non-Af Amer) POC Glucose (mg/dL) 381 H 292 H (65-110) mg/dL Random Glucose (70-110) mg/dL Calcium (8.4-10.5) mg/dL Total Bilirubin (0.2-1.3) mg/dL AST (17-59) U/L ALT (7-56) U/L Alkaline Phosphatase (38-126) U/L Total Protein (5.8-8.3) g/dL Albumin (3.0-4.8) g/dL Globulin gm/dL Albumin/Globulin Ratio (1.1-1.8) 07/27/18 07/27/18 07/27/18 Range/Units 17:46 13:58 10:31 WBC (4.5-11.0) 10^3/uL RBC (3.5-6.1) 10^6/uL Hgb (14.0-18.0) g/dL Hct (42.0-52.0) % MCV (80.0-105.0) fl MCH (25.0-35.0) pg MCHC (31.0-37.0) g/dl RDW (11.5-14.5) % Plt Count (120.0-450.0) 10^3/uL Manual Plt Count (120-450) K/mm3 Gran % (50.0-68.0) % Lymph % (Auto) (22.0-35.0) % Scott % (Auto) (1.0-6.0) % Eos % (Auto) (1.5-5.0) % Baso % (Auto) (0.0-3.0) % Gran # (1.4-6.5) Lymph # (Auto) (1.2-3.4) Scott # (Auto) (0.1-0.6) Eos # (Auto) (0.0-0.7) Baso # (Auto) (0.0-2.0) K/mm3 pCO2 (35-45) mm/Hg pO2 (80-100) mm/Hg HCO3 (21-28) mmol/L ABG pH (7.35-7.45) ABG Total CO2 (22-28) mmol.L ABG O2 Saturation (95-98) % ABG O2 Content (15-23) ML/dl ABG Base Excess (-2.0-3.0) mmol/L ABG Hemoglobin (11.7-17.4) g/dL ABG Carboxyhemoglobin (0.5-1.5) % POC ABG HHb (Measured) (0-5) % ABG Methemoglobin (0.0-3.0) % ABG O2 Capacity (16-24) mL/dl Hgb O2 Saturation (95.0-98.0) % FiO2 % Sodium (132-148) mmol/L Potassium (3.6-5.0) mmol/L Chloride (98-107) mmol/L Carbon Dioxide (21-33) mmol/L Anion Gap (10-20) BUN (7-21) mg/dL Creatinine (0.8-1.5) mg/dl Est GFR ( Amer) Est GFR (Non-Af Amer) POC Glucose (mg/dL) 179 H 274 H 241 H (65-110) mg/dL Random Glucose (70-110) mg/dL Calcium (8.4-10.5) mg/dL Total Bilirubin (0.2-1.3) mg/dL AST (17-59) U/L ALT (7-56) U/L Alkaline Phosphatase (38-126) U/L Total Protein (5.8-8.3) g/dL Albumin (3.0-4.8) g/dL Globulin gm/dL Albumin/Globulin Ratio (1.1-1.8) 07/27/18 07/27/18 Range/Units 06:30 06:30 WBC 11.3 H D (4.5-11.0) 10^3/uL RBC 2.95 L (3.5-6.1) 10^6/uL Hgb 7.9 L (14.0-18.0) g/dL Hct 25.9 L (42.0-52.0) % MCV 87.8 (80.0-105.0) fl MCH 26.8 (25.0-35.0) pg MCHC 30.5 L (31.0-37.0) g/dl RDW 17.1 H (11.5-14.5) % Plt Count 23 L* (120.0-450.0) 10^3/uL Manual Plt Count 50 L (120-450) K/mm3 Gran % 93.6 H (50.0-68.0) % Lymph % (Auto) 4.1 L (22.0-35.0) % Scott % (Auto) 2.1 (1.0-6.0) % Eos % (Auto) 0.2 L (1.5-5.0) % Baso % (Auto) 0.0 (0.0-3.0) % Gran # 10.59 H (1.4-6.5) Lymph # (Auto) 0.5 L (1.2-3.4) Scott # (Auto) 0.2 (0.1-0.6) Eos # (Auto) 0.0 (0.0-0.7) Baso # (Auto) 0.00 (0.0-2.0) K/mm3 pCO2 (35-45) mm/Hg pO2 (80-100) mm/Hg HCO3 (21-28) mmol/L ABG pH (7.35-7.45) ABG Total CO2 (22-28) mmol.L ABG O2 Saturation (95-98) % ABG O2 Content (15-23) ML/dl ABG Base Excess (-2.0-3.0) mmol/L ABG Hemoglobin (11.7-17.4) g/dL ABG Carboxyhemoglobin (0.5-1.5) % POC ABG HHb (Measured) (0-5) % ABG Methemoglobin (0.0-3.0) % ABG O2 Capacity (16-24) mL/dl Hgb O2 Saturation (95.0-98.0) % FiO2 % Sodium 142 (132-148) mmol/L Potassium 4.3 (3.6-5.0) mmol/L Chloride 119 H (98-107) mmol/L Carbon Dioxide 21 (21-33) mmol/L Anion Gap 6 L (10-20) BUN 62 H (7-21) mg/dL Creatinine 1.4 (0.8-1.5) mg/dl Est GFR ( Amer) > 60 Est GFR (Non-Af Amer) 51 POC Glucose (mg/dL) (65-110) mg/dL Random Glucose 162 H (70-110) mg/dL Calcium 7.4 L (8.4-10.5) mg/dL Total Bilirubin 0.5 (0.2-1.3) mg/dL AST 66 H (17-59) U/L ALT 77 H (7-56) U/L Alkaline Phosphatase 113 (38-126) U/L Total Protein 6.4 (5.8-8.3) g/dL Albumin 2.2 L (3.0-4.8) g/dL Globulin 4.2 gm/dL Albumin/Globulin Ratio 0.5 L (1.1-1.8) Laboratory Results - last 24 hr 07/27/18 07/27/18 07/27/18 06:30 06:30 10:31 WBC 11.3 H D RBC 2.95 L Hgb 7.9 L Hct 25.9 L MCV 87.8 MCH 26.8 MCHC 30.5 L RDW 17.1 H Plt Count 23 L* Manual Plt Count 50 L Gran % 93.6 H Lymph % (Auto) 4.1 L Scott % (Auto) 2.1 Eos % (Auto) 0.2 L Baso % (Auto) 0.0 Gran # 10.59 H Lymph # (Auto) 0.5 L Scott # (Auto) 0.2 Eos # (Auto) 0.0 Baso # (Auto) 0.00 pCO2 pO2 HCO3 ABG pH ABG Total CO2 ABG O2 Saturation ABG O2 Content ABG Base Excess ABG Hemoglobin ABG Carboxyhemoglobin POC ABG HHb (Measured) ABG Methemoglobin ABG O2 Capacity Hgb O2 Saturation FiO2 Sodium 142 Potassium 4.3 Chloride 119 H Carbon Dioxide 21 Anion Gap 6 L BUN 62 H Creatinine 1.4 Est GFR ( Amer) > 60 Est GFR (Non-Af Amer) 51 POC Glucose (mg/dL) 241 H Random Glucose 162 H Calcium 7.4 L Total Bilirubin 0.5 AST 66 H ALT 77 H Alkaline Phosphatase 113 Total Protein 6.4 Albumin 2.2 L Globulin 4.2 Albumin/Globulin Ratio 0.5 L 07/27/18 07/27/18 07/27/18 13:58 17:46 21:58 WBC RBC Hgb Hct MCV MCH MCHC RDW Plt Count Manual Plt Count Gran % Lymph % (Auto) Scott % (Auto) Eos % (Auto) Baso % (Auto) Gran # Lymph # (Auto) Scott # (Auto) Eos # (Auto) Baso # (Auto) pCO2 pO2 HCO3 ABG pH ABG Total CO2 ABG O2 Saturation ABG O2 Content ABG Base Excess ABG Hemoglobin ABG Carboxyhemoglobin POC ABG HHb (Measured) ABG Methemoglobin ABG O2 Capacity Hgb O2 Saturation FiO2 Sodium Potassium Chloride Carbon Dioxide Anion Gap BUN Creatinine Est GFR ( Amer) Est GFR (Non-Af Amer) POC Glucose (mg/dL) 274 H 179 H 292 H Random Glucose Calcium Total Bilirubin AST ALT Alkaline Phosphatase Total Protein Albumin Globulin Albumin/Globulin Ratio 07/28/18 07/28/18 02:03 06:30 WBC RBC Hgb Hct MCV MCH MCHC RDW Plt Count Manual Plt Count Gran % Lymph % (Auto) Scott % (Auto) Eos % (Auto) Baso % (Auto) Gran # Lymph # (Auto) Scott # (Auto) Eos # (Auto) Baso # (Auto) pCO2 31 L pO2 141.0 H HCO3 18.3 L ABG pH 7.38 ABG Total CO2 19.3 L ABG O2 Saturation 100.3 H ABG O2 Content 9.0 L ABG Base Excess -6.2 L ABG Hemoglobin 6.3 L ABG Carboxyhemoglobin 2.2 H POC ABG HHb (Measured) -0.3 L ABG Methemoglobin 0.6 ABG O2 Capacity 9.0 L Hgb O2 Saturation 97.5 FiO2 40.0 Sodium Potassium Chloride Carbon Dioxide Anion Gap BUN Creatinine Est GFR ( Amer) Est GFR (Non-Af Amer) POC Glucose (mg/dL) 381 H Random Glucose Calcium Total Bilirubin AST ALT Alkaline Phosphatase Total Protein Albumin Globulin Albumin/Globulin Ratio Radiology Impressions: Radiology Impressions Chest X-Ray 07/27/18 06:00 IMPRESSION: No active disease. Fingerstick Blood Sugar Results: 381 Critical Care Progress Note - Nutrition Nutrition: Nutrition Category Date Time Status NPO Diet [DIET] Diets 07/06/18 Breakfast Ordered Assessment/Plan - Assessment and Plan (Free Text) Assessment: 62 y/o male with PMHx of COPD, active smoker 1pk per day, HTN, DM, PVD, presents with ER with 2 day history of fever, chills, associated with cough that is non- productive. Patient was initially started on heparin drip given elevated troponin, and markedly diminished EF. Hep drip currently held secondary to thrombocytopenia. Initially paralyzed on Nimbex after overbreathing ventilator. Extubated last week, ARDS resolved and s/p merrem and doxycycline antibiotic therapy for pneumonia. Awaiting LTAC facility transfer and medicare approval. Plan: Neuro: Critical Illness Polyneuropathy - approved for LTAC placement, awaiting facility/medicare approval - ABG today shows pH 7.38, pCO2 31, O2 141 - intubated on 07/22/18 due to not protecting airway, currently sedated on propofol - Neuro consult - Per neurologist, poor motor function likely from critical illness polyneuropathy - Results of EEG 07/10/18: moderate nonspecific diffuse disturbance of cortical activity, nonspecific diffuse fernandez matter dysfunction, no seizures, not in status epilepticus - 07/13/18 MRI brain without contrast negative for acute abnormalitie, 07/10/18 CT head without contrast negative Pulmology S/p intubation on 07/22/18 -unable to protect airway -ABG is improved post intubation on 07/22/18 with pH of 7.31 and pCO2 of 37. Sedated on propofol CAP and Flu A positive - completed tamiflu and merrem/doxycycline treatment for flu and CAP respectively - CXR 07/22 shows new right sided infiltrate, today is day 7 out of 8 merrem - Duonebs seema q6 and PRN q2 - Urine Lg and Strep negative - Procal is 0.16 on 07/19 from 0.6 on 07/14 - ID eval: Dr. Fernandes, Pulm consulted - Dr. Aminah Webb OG on HD - BUN/Cr is 62/1.4, downtrending - hypernatremia - resolved, Na is 142 today - continue D5 free water - Strict Is and Os, oliveros in place - now off HD - Tolerated first HD on 07/07/18 - Nephro consult - recs appreciated. Per nephro, no hemodialysis at this time - Continue water flushes per Nephro recs in light of low EF. - F/u nephro recs to consider repeating urine electrolytes ID RLL Pneumonia - afebrile overnight, WBC downtrending today - s/p treatment of flu and pna with tamiflu and merrem/doxy - Ammonia level <9 - ID eval: Dr. Fernandes - Repeat blood cx neg after 5 days, repeat UA negative, repeat sputum cx growing moderate amount of yeast. Cardiology NSTEMI - 07/03 Troponins elevated 0.48, 0.67, 0.67 - Cardiology consulted - Dr. Saxena. Cardiac cath on hold due to persistent thrombocytopenia. - started on dobutamine drip as per cardio - Dig level 07/20 is 0.9 WNL - Hold IVF d/t poor EF, Hold Heparin drip HFrEF - BNP 14926 on 07/03 - 07/03/18 echo report shows EF 14.2%, mildly dilated LV, systolic function severely impaired, akinetic septum, TR and pulm HTN -continue digoxin 0.125mg IV, cardizem 60mg TID for afib Heme Chronic Thrombocytopenia, ITP - Received previous transfusions as outpatient - [facility] platelets are 50 today - total 6 unit PLT transfused. IV gammaglobulin 5 day course completed on 07/11/18 - Will transfuse if <20 or actively bleeding per Hem recs - Will hold off on DVT chemoprophylaxis at this time, may resume if platelets >50 per heme/onc - Hem consult placed- Dr. Estevez - Negative IVONE and ANCA studies, ESR 45, HIT antibody negative Endo Uncontrolled DM - continue high insulin sliding scale, ACHS - Hgb a1c 8.2 - Diabetic education GI - OG tube in place, hold tube feedings for now due to uncontrolled sugars, electrolytes - swallow eval 07/17/18: Pt. poorly responsive, with hyper gag reflex. No response to oral stimulation or spoon/straw tip. - Shock liver resolved - Hep panel negative - 07/03/18 RUQ U/S shows hepatosplenomegaly - pepcid for PPX Dispo: Approved for LTAC, awaiting family choice of LTAC facility after medical clearance Patient seen and case discussed with attending, Dr. Sung <Golden Sung - Last Filed: 07/28/18 12:15> CCU Objective - Vital Signs / Intake & Output Vital Signs (Last 4 hours): Vital Signs Temp Pulse Resp BP 07/28/18 11:41 100 F H 88 24 134/60 07/28/18 10:56 99.9 F H 75 26 H 134/58 L 07/28/18 10:39 99.9 F H 72 24 134/58 L 07/28/18 09:40 76 152/62 H 07/28/18 09:03 83 152/62 H Intake and Output (Last 8hrs): Intake & Output 07/27/18 07/28/18 07/28/18 22:59 06:59 14:59 Intake Total 1976 1690 362.0 Output Total 1100 950 Balance 876 740 362.0 Weight 189 lb Intake: IV 1076 650 362.0 IVF 780 Left Upper arm 200 650 propofol 96 Tube Feeding 400 540 Blood Product 0 Red Blood Cells Cpd As1 0 Lr Unit [id number] Other 500 500 Output: Urine 1100 950 Urethral (Oliveros) 1100 950 - Medications Active Medications: Active Medications Generic Name Dose Route Start Last Admin Trade Name Freq PRN Reason Stop Dose Admin Acetaminophen 650 mg 07/08/18 18:18 07/20/18 13:20 Tylenol 650mg/20.3ml Solution Ud PO 650 mg Q6H PRN Administration Fever 101F Albuterol/Ipratropium 3 ml 07/03/18 14:00 07/28/18 07:38 Duoneb 3 Mg/0.5 Mg (3 Ml) Ud IH 3 ml [id number] SEEMA Administration Albuterol/Ipratropium 3 ml 07/03/18 11:04 07/11/18 23:55 Duoneb 3 Mg/0.5 Mg (3 Ml) Ud IH 3 ml Q2H PRN Administration Shortness of Breath Digoxin 0.125 mg 07/13/18 14:00 07/27/18 14:24 Lanoxin IVP 0.125 mg 1400 SEEMA Administration Diltiazem HCl 60 mg 07/17/18 14:00 07/28/18 09:03 Cardizem PO 60 mg TID SEEMA Administration Famotidine 20 mg 07/24/18 11:15 07/28/18 10:37 Pepcid IVP 20 mg Q12H SEEMA Administration Propofol 1,000 mg in 100 mls @ 2.545 mls/hr 07/22/18 08:29 07/28/18 09:47 Diprivan IV 10 mcg/kg/min .Q24H PRN 5.089 mls/hr TITRATE PER MD ORDER Titration Protocol 5 MCG/KG/MIN Meropenem/Sodium Chloride 500 mg in 50 mls @ 100 mls/hr 07/22/18 18:15 07/28/18 09:07 Merrem Iv 500 Mg/Ns 50 Ml IVPB 07/29/18 18:16 100 mls/hr Q12 SEEMA Administration Protocol Insulin Human Regular 100 100 mls @ 15 mls/hr 07/24/18 08:24 07/26/18 08:35 units/ Sodium Chloride IV 2 units/hr .Q6H40M PRN 2 mls/hr TITRATE PER MD ORDER Titration Protocol 15 UNITS/HR Dobutamine HCl/Dextrose 500 mg in 250 mls @ 12.791 mls/hr 07/27/18 12:50 07/28/18 09:40 Dobutamine/Dextrose 5% 500mg/250ml IV 5 mcg/kg/min .[id number] PRN 12.791 mls/hr TITRATE PER PROTOCOL Administration Protocol 5 MCG/KG/MIN Insulin Detemir 15 unit 07/28/18 08:58 Levemir SC HS SEEMA Insulin Human Lispro 0 units 07/26/18 10:00 07/28/18 10:35 Humalog High SC 12 units Q4H SEEMA Administration Protocol Vitamin A 1 applic 07/13/18 16:53 Vitamin A&D TP Q8 PRN Dry mouth - Patient Studies Lab Studies: Microbiology Studies 07/22/18 19:53 Blood Culture - Final Blood-Venous NO GROWTH AFTER 5 DAYS Gram Stain - Final TEST NOT PERFORMED 07/22/18 19:53 Blood Culture - Final Blood-Venous NO GROWTH AFTER 5 DAYS Gram Stain - Final TEST NOT PERFORMED Lab Studies 07/28/18 07/28/18 07/28/18 Range/Units 10:07 08:55 06:30 WBC (4.5-11.0) 10^3/uL RBC (3.5-6.1) 10^6/uL Hgb (14.0-18.0) g/dL Hct (42.0-52.0) % MCV (80.0-105.0) fl MCH (25.0-35.0) pg MCHC (31.0-37.0) g/dl RDW (11.5-14.5) % Plt Count (120.0-450.0) 10^3/uL Manual Plt Count (120-450) K/mm3 Gran % (50.0-68.0) % Lymph % (Auto) (22.0-35.0) % Scott % (Auto) (1.0-6.0) % Eos % (Auto) (1.5-5.0) % Baso % (Auto) (0.0-3.0) % Gran # (1.4-6.5) Lymph # (Auto) (1.2-3.4) Scott # (Auto) (0.1-0.6) Eos # (Auto) (0.0-0.7) Baso # (Auto) (0.0-2.0) K/mm3 Platelet Evaluation (NORMAL) pCO2 31 L (35-45) mm/Hg pO2 141.0 H (80-100) mm/Hg HCO3 18.3 L (21-28) mmol/L ABG pH 7.38 (7.35-7.45) ABG Total CO2 19.3 L (22-28) mmol.L ABG O2 Saturation 100.3 H (95-98) % ABG O2 Content 9.0 L (15-23) ML/dl ABG Base Excess -6.2 L (-2.0-3.0) mmol/L ABG Hemoglobin 6.3 L (11.7-17.4) g/dL ABG Carboxyhemoglobin 2.2 H (0.5-1.5) % POC ABG HHb (Measured) -0.3 L (0-5) % ABG Methemoglobin 0.6 (0.0-3.0) % ABG O2 Capacity 9.0 L (16-24) mL/dl Hgb O2 Saturation 97.5 (95.0-98.0) % FiO2 40.0 % Sodium (132-148) mmol/L Potassium (3.6-5.0) mmol/L Chloride (98-107) mmol/L Carbon Dioxide (21-33) mmol/L Anion Gap (10-20) BUN (7-21) mg/dL Creatinine (0.8-1.5) mg/dl Est GFR ( Amer) Est GFR (Non-Af Amer) POC Glucose (mg/dL) 433 H* (65-110) mg/dL Random Glucose (70-110) mg/dL Calcium (8.4-10.5) mg/dL Total Bilirubin (0.2-1.3) mg/dL AST (17-59) U/L ALT (7-56) U/L Alkaline Phosphatase (38-126) U/L Total Protein (5.8-8.3) g/dL Albumin (3.0-4.8) g/dL Globulin gm/dL Albumin/Globulin Ratio (1.1-1.8) Blood Type O POSITIVE Antibody Screen Negative Crossmatch See Detail BBK History Checked Patient has bt 07/28/18 07/28/18 07/28/18 Range/Units 05:40 05:40 05:40 WBC 9.2 (4.5-11.0) 10^3/uL RBC 2.56 L (3.5-6.1) 10^6/uL Hgb 7.0 L (14.0-18.0) g/dL Hct 22.6 L (42.0-52.0) % MCV 88.3 (80.0-105.0) fl MCH 27.3 (25.0-35.0) pg MCHC 31.0 (31.0-37.0) g/dl RDW 17.4 H (11.5-14.5) % Plt Count 8 L* (120.0-450.0) 10^3/uL Manual Plt Count 14 L* (120-450) K/mm3 Gran % 94.0 H (50.0-68.0) % Lymph % (Auto) 4.9 L (22.0-35.0) % Scott % (Auto) 0.2 L (1.0-6.0) % Eos % (Auto) 0.9 L (1.5-5.0) % Baso % (Auto) 0.0 (0.0-3.0) % Gran # 8.67 H (1.4-6.5) Lymph # (Auto) 0.5 L (1.2-3.4) Scott # (Auto) 0.0 L (0.1-0.6) Eos # (Auto) 0.1 (0.0-0.7) Baso # (Auto) 0.00 (0.0-2.0) K/mm3 Platelet Evaluation Low (NORMAL) pCO2 (35-45) mm/Hg pO2 (80-100) mm/Hg HCO3 (21-28) mmol/L ABG pH (7.35-7.45) ABG Total CO2 (22-28) mmol.L ABG O2 Saturation (95-98) % ABG O2 Content (15-23) ML/dl ABG Base Excess (-2.0-3.0) mmol/L ABG Hemoglobin (11.7-17.4) g/dL ABG Carboxyhemoglobin (0.5-1.5) % POC ABG HHb (Measured) (0-5) % ABG Methemoglobin (0.0-3.0) % ABG O2 Capacity (16-24) mL/dl Hgb O2 Saturation (95.0-98.0) % FiO2 % Sodium 139 (132-148) mmol/L Potassium 4.5 (3.6-5.0) mmol/L Chloride 115 H (98-107) mmol/L Carbon Dioxide 20 L (21-33) mmol/L Anion Gap 8 L (10-20) BUN 55 H (7-21) mg/dL Creatinine 1.4 (0.8-1.5) mg/dl Est GFR ( Amer) > 60 Est GFR (Non-Af Amer) 51 POC Glucose (mg/dL) (65-110) mg/dL Random Glucose 342 H* D (70-110) mg/dL Calcium 7.3 L (8.4-10.5) mg/dL Total Bilirubin 0.4 (0.2-1.3) mg/dL AST 53 (17-59) U/L ALT 67 H (7-56) U/L Alkaline Phosphatase 110 (38-126) U/L Total Protein 5.4 L (5.8-8.3) g/dL Albumin 1.9 L (3.0-4.8) g/dL Globulin 3.5 gm/dL Albumin/Globulin Ratio 0.6 L (1.1-1.8) Blood Type Antibody Screen Crossmatch BBK History Checked 07/28/18 07/28/18 07/27/18 Range/Units 05:34 02:03 21:58 WBC (4.5-11.0) 10^3/uL RBC (3.5-6.1) 10^6/uL Hgb (14.0-18.0) g/dL Hct (42.0-52.0) % MCV (80.0-105.0) fl MCH (25.0-35.0) pg MCHC (31.0-37.0) g/dl RDW (11.5-14.5) % Plt Count (120.0-450.0) 10^3/uL Manual Plt Count (120-450) K/mm3 Gran % (50.0-68.0) % Lymph % (Auto) (22.0-35.0) % Scott % (Auto) (1.0-6.0) % Eos % (Auto) (1.5-5.0) % Baso % (Auto) (0.0-3.0) % Gran # (1.4-6.5) Lymph # (Auto) (1.2-3.4) Scott # (Auto) (0.1-0.6) Eos # (Auto) (0.0-0.7) Baso # (Auto) (0.0-2.0) K/mm3 Platelet Evaluation (NORMAL) pCO2 (35-45) mm/Hg pO2 (80-100) mm/Hg HCO3 (21-28) mmol/L ABG pH (7.35-7.45) ABG Total CO2 (22-28) mmol.L ABG O2 Saturation (95-98) % ABG O2 Content (15-23) ML/dl ABG Base Excess (-2.0-3.0) mmol/L ABG Hemoglobin (11.7-17.4) g/dL ABG Carboxyhemoglobin (0.5-1.5) % POC ABG HHb (Measured) (0-5) % ABG Methemoglobin (0.0-3.0) % ABG O2 Capacity (16-24) mL/dl Hgb O2 Saturation (95.0-98.0) % FiO2 % Sodium (132-148) mmol/L Potassium (3.6-5.0) mmol/L Chloride (98-107) mmol/L Carbon Dioxide (21-33) mmol/L Anion Gap (10-20) BUN (7-21) mg/dL Creatinine (0.8-1.5) mg/dl Est GFR ( Amer) Est GFR (Non-Af Amer) POC Glucose (mg/dL) 370 H 381 H 292 H (65-110) mg/dL Random Glucose (70-110) mg/dL Calcium (8.4-10.5) mg/dL Total Bilirubin (0.2-1.3) mg/dL AST (17-59) U/L ALT (7-56) U/L Alkaline Phosphatase (38-126) U/L Total Protein (5.8-8.3) g/dL Albumin (3.0-4.8) g/dL Globulin gm/dL Albumin/Globulin Ratio (1.1-1.8) Blood Type Antibody Screen Crossmatch BBK History Checked 07/27/18 07/27/18 07/27/18 Range/Units 17:46 13:58 10:31 WBC (4.5-11.0) 10^3/uL RBC (3.5-6.1) 10^6/uL Hgb (14.0-18.0) g/dL Hct (42.0-52.0) % MCV (80.0-105.0) fl MCH (25.0-35.0) pg MCHC (31.0-37.0) g/dl RDW (11.5-14.5) % Plt Count (120.0-450.0) 10^3/uL Manual Plt Count (120-450) K/mm3 Gran % (50.0-68.0) % Lymph % (Auto) (22.0-35.0) % Scott % (Auto) (1.0-6.0) % Eos % (Auto) (1.5-5.0) % Baso % (Auto) (0.0-3.0) % Gran # (1.4-6.5) Lymph # (Auto) (1.2-3.4) Scott # (Auto) (0.1-0.6) Eos # (Auto) (0.0-0.7) Baso # (Auto) (0.0-2.0) K/mm3 Platelet Evaluation (NORMAL) pCO2 (35-45) mm/Hg pO2 (80-100) mm/Hg HCO3 (21-28) mmol/L ABG pH (7.35-7.45) ABG Total CO2 (22-28) mmol.L ABG O2 Saturation (95-98) % ABG O2 Content (15-23) ML/dl ABG Base Excess (-2.0-3.0) mmol/L ABG Hemoglobin (11.7-17.4) g/dL ABG Carboxyhemoglobin (0.5-1.5) % POC ABG HHb (Measured) (0-5) % ABG Methemoglobin (0.0-3.0) % ABG O2 Capacity (16-24) mL/dl Hgb O2 Saturation (95.0-98.0) % FiO2 % Sodium (132-148) mmol/L Potassium (3.6-5.0) mmol/L Chloride (98-107) mmol/L Carbon Dioxide (21-33) mmol/L Anion Gap (10-20) BUN (7-21) mg/dL Creatinine (0.8-1.5) mg/dl Est GFR ( Amer) Est GFR (Non-Af Amer) POC Glucose (mg/dL) 179 H 274 H 241 H (65-110) mg/dL Random Glucose (70-110) mg/dL Calcium (8.4-10.5) mg/dL Total Bilirubin (0.2-1.3) mg/dL AST (17-59) U/L ALT (7-56) U/L Alkaline Phosphatase (38-126) U/L Total Protein (5.8-8.3) g/dL Albumin (3.0-4.8) g/dL Globulin gm/dL Albumin/Globulin Ratio (1.1-1.8) Blood Type Antibody Screen Crossmatch BBK History Checked Laboratory Results - last 24 hr 07/27/18 07/27/18 07/27/18 10:31 13:58 17:46 WBC RBC Hgb Hct MCV MCH MCHC RDW Plt Count Manual Plt Count Gran % Lymph % (Auto) Scott % (Auto) Eos % (Auto) Baso % (Auto) Gran # Lymph # (Auto) Scott # (Auto) Eos # (Auto) Baso # (Auto) Platelet Evaluation pCO2 pO2 HCO3 ABG pH ABG Total CO2 ABG O2 Saturation ABG O2 Content ABG Base Excess ABG Hemoglobin ABG Carboxyhemoglobin POC ABG HHb (Measured) ABG Methemoglobin ABG O2 Capacity Hgb O2 Saturation FiO2 Sodium Potassium Chloride Carbon Dioxide Anion Gap BUN Creatinine Est GFR ( Amer) Est GFR (Non-Af Amer) POC Glucose (mg/dL) 241 H 274 H 179 H Random Glucose Calcium Total Bilirubin AST ALT Alkaline Phosphatase Total Protein Albumin Globulin Albumin/Globulin Ratio Blood Type Antibody Screen Crossmatch BBK History Checked 07/27/18 07/28/18 07/28/18 21:58 02:03 05:34 WBC RBC Hgb Hct MCV MCH MCHC RDW Plt Count Manual Plt Count Gran % Lymph % (Auto) Scott % (Auto) Eos % (Auto) Baso % (Auto) Gran # Lymph # (Auto) Scott # (Auto) Eos # (Auto) Baso # (Auto) Platelet Evaluation pCO2 pO2 HCO3 ABG pH ABG Total CO2 ABG O2 Saturation ABG O2 Content ABG Base Excess ABG Hemoglobin ABG Carboxyhemoglobin POC ABG HHb (Measured) ABG Methemoglobin ABG O2 Capacity Hgb O2 Saturation FiO2 Sodium Potassium Chloride Carbon Dioxide Anion Gap BUN Creatinine Est GFR ( Amer) Est GFR (Non-Af Amer) POC Glucose (mg/dL) 292 H 381 H 370 H Random Glucose Calcium Total Bilirubin AST ALT Alkaline Phosphatase Total Protein Albumin Globulin Albumin/Globulin Ratio Blood Type Antibody Screen Crossmatch BBK History Checked 07/28/18 07/28/18 07/28/18 05:40 05:40 05:40 WBC 9.2 RBC 2.56 L Hgb 7.0 L Hct 22.6 L MCV 88.3 MCH 27.3 MCHC 31.0 RDW 17.4 H Plt Count 8 L* Manual Plt Count 14 L* Gran % 94.0 H Lymph % (Auto) 4.9 L Scott % (Auto) 0.2 L Eos % (Auto) 0.9 L Baso % (Auto) 0.0 Gran # 8.67 H Lymph # (Auto) 0.5 L Scott # (Auto) 0.0 L Eos # (Auto) 0.1 Baso # (Auto) 0.00 Platelet Evaluation Low pCO2 pO2 HCO3 ABG pH ABG Total CO2 ABG O2 Saturation ABG O2 Content ABG Base Excess ABG Hemoglobin ABG Carboxyhemoglobin POC ABG HHb (Measured) ABG Methemoglobin ABG O2 Capacity Hgb O2 Saturation FiO2 Sodium 139 Potassium 4.5 Chloride 115 H Carbon Dioxide 20 L Anion Gap 8 L BUN 55 H Creatinine 1.4 Est GFR ( Amer) > 60 Est GFR (Non-Af Amer) 51 POC Glucose (mg/dL) Random Glucose 342 H* D Calcium 7.3 L Total Bilirubin 0.4 AST 53 ALT 67 H Alkaline Phosphatase 110 Total Protein 5.4 L Albumin 1.9 L Globulin 3.5 Albumin/Globulin Ratio 0.6 L Blood Type Antibody Screen Crossmatch BBK History Checked 07/28/18 07/28/18 07/28/18 06:30 08:55 10:07 WBC RBC Hgb Hct MCV MCH MCHC RDW Plt Count Manual Plt Count Gran % Lymph % (Auto) Scott % (Auto) Eos % (Auto) Baso % (Auto) Gran # Lymph # (Auto) Scott # (Auto) Eos # (Auto) Baso # (Auto) Platelet Evaluation pCO2 31 L pO2 141.0 H HCO3 18.3 L ABG pH 7.38 ABG Total CO2 19.3 L ABG O2 Saturation 100.3 H ABG O2 Content 9.0 L ABG Base Excess -6.2 L ABG Hemoglobin 6.3 L ABG Carboxyhemoglobin 2.2 H POC ABG HHb (Measured) -0.3 L ABG Methemoglobin 0.6 ABG O2 Capacity 9.0 L Hgb O2 Saturation 97.5 FiO2 40.0 Sodium Potassium Chloride Carbon Dioxide Anion Gap BUN Creatinine Est GFR ( Amer) Est GFR (Non-Af Amer) POC Glucose (mg/dL) 433 H* Random Glucose Calcium Total Bilirubin AST ALT Alkaline Phosphatase Total Protein Albumin Globulin Albumin/Globulin Ratio Blood Type O POSITIVE Antibody Screen Negative Crossmatch See Detail BBK History Checked Patient has bt Radiology Impressions: Radiology Impressions Chest X-Ray 07/28/18 06:00 IMPRESSION: No active disease. Critical Care Progress Note - Nutrition Nutrition: Nutrition Category Date Time Status NPO Diet [DIET] Diets 07/06/18 Breakfast Ordered Assessment/Plan - Assessment and Plan (Free Text) Assessment: Patient seen and examined on rounds, with resident, agree with note with following additions/exceptions: Patient is 62yo male with PMhx of COPD, active smoker 2pks per day, HTN, DM, PVD, admitted for hypoxic respiratory failure, 2/2 Influenza PNA, and superimposed bacterial PNA. Pt is currently intubated on PRVC, ABG acceptable Pt's with chornic thrombocytopenia, no clinical evidence of overt bleeding Adequate UOP Patient with CIP HH 7.0, platelets 14 PNA ARDS, resolved FLU Resp failure MODS Renal failure, s/p HD Thrombocytopenia rule out ITP/TTP COPD HTN PVD DM CIP Hypernatremia, resovled Recommend: - cont with vent support, low tidal vol ventilation, daily sedation vacation, CPA trials - abx as per ID - BP control - monitor LFTs - FS control - I/Os - DC IVF - cont with Dobutamine - transfuse 1u PRBC, 1u platelets - Free water flushes 200cc Q6hr - follow up cardio - GI ppx - DVT ppx - Monitor in MICU Patient needs intermediate LTACH
[2018-07-28 07:28] LABS: PLATELET COUNT 8 10^3/uL (120.0-450.0)
--- NOTE | 2018-07-28 07:29 | CP.PCM.PN ---
Subjective - Date & Time of Evaluation Date of Evaluation: 07/28/18 Time of Evaluation: 07:22 - Subjective Subjective: PGY-2 heme/onc progress note for Dr Estevez. No acute events noted overnight. Patient is intubated and sedated - he was given "sedation vacation" today and was able to track finger but sedation was resumed. ROS was not obtainable. Objective - Vital Signs/Intake and Output Vital Signs (last 24 hours): Temp Pulse Resp BP Pulse Ox 98.4 F 94 H 24 139/67 100 07/28/18 06:00 07/28/18 06:00 07/27/18 16:00 07/28/18 06:00 07/28/18 06:00 Intake and Output: 07/28/18 07/28/18 06:59 18:59 Intake Total 1690 Output Total 950 Balance 740 - Medications Medications: Current Medications Acetaminophen (Tylenol 650mg/20.3ml Solution Ud) 650 mg PO Q6H PRN PRN Reason: Fever 101F Last Admin: 07/20/18 13:20 Dose: 650 mg Albuterol/Ipratropium (Duoneb 3 Mg/0.5 Mg (3 Ml) Ud) 3 ml IH [id number] [facility] Last Admin: 07/28/18 02:50 Dose: 3 ml Albuterol/Ipratropium (Duoneb 3 Mg/0.5 Mg (3 Ml) Ud) 3 ml IH Q2H PRN PRN Reason: Shortness of Breath Last Admin: 07/11/18 23:55 Dose: 3 ml Digoxin (Lanoxin) 0.125 mg IVP 1400 [facility] Last Admin: 07/27/18 14:24 Dose: 0.125 mg Diltiazem HCl (Cardizem) 60 mg PO TID [facility] Last Admin: 07/27/18 17:54 Dose: 60 mg Famotidine (Pepcid) 20 mg IVP Q12H [facility] Last Admin: 07/27/18 22:36 Dose: 20 mg Propofol (Diprivan) 1,000 mg in 100 mls @ 2.545 mls/hr IV .Q24H PRN; Protocol PRN Reason: TITRATE PER MD ORDER Last Admin: 07/27/18 08:57 Dose: 15 mcg/kg/min, 7.634 mls/hr Meropenem/Sodium Chloride (Merrem Iv 500 Mg/Ns 50 Ml) 500 mg in 50 mls @ 100 mls/hr IVPB Q12 [facility]; Protocol Stop: 07/29/18 18:16 Last Admin: 07/27/18 21:50 Dose: 100 mls/hr Insulin Human Regular 100 (units/ Sodium Chloride) 100 mls @ 15 mls/hr IV .Q6H40M PRN; Protocol PRN Reason: TITRATE PER MD ORDER Last Titration: 07/26/18 08:35 Dose: 2 units/hr, 2 mls/hr Dextrose (Dextrose 5% In Water 1000 Ml) 1,000 mls @ 40 mls/hr IV .Q24H [facility] Last Admin: 07/27/18 12:00 Dose: 40 mls/hr Dobutamine HCl/Dextrose (Dobutamine/Dextrose 5% 500mg/250ml) 500 mg in 250 mls @ 12.791 mls/hr IV .[id number] PRN; Protocol PRN Reason: TITRATE PER PROTOCOL Last Admin: 07/27/18 14:30 Dose: 5 mcg/kg/min, 12.791 mls/hr Insulin Detemir (Levemir) 30 unit SC HS [facility] Last Admin: 07/22/18 06:56 Dose: 30 units Insulin Human Lispro (Humalog High) 0 units SC Q4H [facility]; Protocol Last Admin: 07/28/18 02:04 Dose: 3 units Vitamin A (Vitamin A&D) 1 applic TP Q8 PRN PRN Reason: Dry mouth - Labs Labs: 07/27/18 06:30 07/27/18 06:30 PT 12.5 SECONDS (9.4-12.5) 07/24/18 06:10 INR 1.09 07/24/18 06:10 APTT 18.7 Seconds (25.1-36.5) L 07/06/18 11:54 - Additional Findings Additional findings: - Constitutional Appears: No Acute Distress, Older Than Stated Age, Chronically Ill - Head Exam Head Exam: ATRAUMATIC, NORMAL INSPECTION - Eye Exam Eye Exam: EOMI, PERRL. absent: Scleral icterus - ENT Exam ENT Exam: Mucous Membranes Moist Additional comments: Dobhoff in place in R nares ET tube in place - Respiratory Exam Respiratory Exam: Decreased Breath Sounds, Clear to Ausculation Bilateral - Cardiovascular Exam Cardiovascular Exam: REGULAR RHYTHM, +S1, +S2. absent: JVD - GI/Abdominal Exam GI & Abdominal Exam: Soft, Normal Bowel Sounds Additional comments: R femoral cath removed, dressing c/d/i, without hematoma - Extremities Exam Extremities Exam: Normal Capillary Refill Additional comments: chronic diabetic ulcer noted to anterior anderson of left lower extremity Occasional spontaneous motor movement at this time in lower extremities - Neurological Exam Neurological Exam: Awake Additional comments: spontaneous motor movement at this time in upper extremities responds to painful stimuli unable to coherently respond verbally - Skin Skin Exam: Intact, Warm Additional comments: Ecchymotic in R antecubital region, stable; ecchymoses at different levels of healing throughout extremities Assessment and Plan - Assessment and Plan (Free Text) Plan: Mr. Damon is a 62 y/o man with pmhx significant for COPD, HTN; DM; PVD; and ITP admitted with ARDS in setting of NSTEMI and pneumonia/flu+ now s/p extubation with anticoagulants held due to thrombocytopenia: ITP -must rule-out MAHA and TTP -platelets 23, manual platelets 50, latest INR 1.09 * total 7 unit PLT transfused with minimal response * 1 bag PLt's given today 07/28 -HIT antibody negative, MARCELO test negative, Negative IVONE and ANCA studies, direct bilirubin normal -obtain peripheral smear * 07/08/18 Peripheral smear shows no atypical cells or immature forms. Mild anisopoikilocytosis. No schistocytes. No PL clumping although markedly reduced. * 07/20/18 Neutrophils 96% lymphocytes 2% monocytes 2%; red blood cells are normocytic normochromic with mild anisocytosis; no schistocytes or nucleated red blood cells seen; platelets are markedly reduced; no clumping of platelets presents -received 5 days of IVIG 07/07/2018 - 07/11/2018 given -will give additional 2 days of IVIG started 07/24/18 80g infused via IV - completed course -start empiric treatment for ITP start dextromethasone 40mg iv qd for 5 days (started 07/20/18 - completed 07/24/18) -patient was previously on promacta outpatient - we will restart this medication now - told to bring in medication from home * promacta started on 07/22/18 - receiving crushed via tube feed * promacta stopped on 07/24/18 - no response -transfuse if <20 or actively bleeding -hold off on DVT chemoprophylaxis at this time, may resume of platelets >50 -stopped protonix and started on iv pepcid 20mg bid 07/21/17 as association with protonix and thrombocytopenia -It was desired to give patient NPlate today however pharmacy notified me that NPlate is not on formulary and we can't give it while patient is in-house Critical Illness Polyneuropathy -neurology consult for possible gullian barre * discussed with Dr Edis Mcdaniels, will give additional 2 days of IVIG started 07/24/18 80g infused via IV - completed course Dispo: arrangements are being made for transfer to LTAC Case discussed with Dr Estevez
[2018-07-28 07:34] LABS: PLATELET ESTIMATE LOW (NORMAL)
--- NOTE | 2018-07-28 07:34 | RAD ---
Date of service: 07/28/2018 HISTORY: f/u COMPARISON: 07/27/2018 FINDINGS: LUNGS: No active pulmonary disease. PLEURA: No significant pleural effusion identified, no pneumothorax apparent. CARDIOVASCULAR: No aortic atherosclerotic calcification present. Mild cardiomegaly no pulmonary vascular congestion. OSSEOUS STRUCTURES: No significant abnormalities. VISUALIZED UPPER ABDOMEN: Normal. OTHER FINDINGS: Endotracheal tube and nasogastric tube are in satisfactory position IMPRESSION: No active disease.
[2018-07-28 07:51] LABS: ALB/GLOB RATIO 0.6 (1.1-1.8); ALBUMIN 1.9 g/dL (3.0-4.8); ALT/SGPT 67 U/L (7-56); AST/SGOT 53 U/L (17-59); BLOOD UREA NITROGEN 55 mg/dL (7-21); CALCIUM 7.3 mg/dL (8.4-10.5); GFR NON-AFRICAN AMERICAN 51
[2018-07-28] MEDS: Propofol 10 mg/ml 1,000 MG/100 ML VIAL IV PRN (08:02)
[2018-07-28] MEDS ORDERED: Insulin Detemir 100 units/ml Vial (Levemir) SC STA (08:15)
--- NOTE | 2018-07-28 08:40 | PN ---
DATE: 07/28/2018([id number]) PULMONARY NOTE SUBJECTIVE: The patient remains in the ICU. He remains sedated and on the ventilator. PHYSICAL EXAMINATION: VITAL SIGNS: Temperature is 98.4, pulse 94, respirations 22/14, blood pressure 139/67. HEENT: Normocephalic, atraumatic. No JVD. CARDIOVASCULAR: Systolic ejection murmur at the lower left sternal border. No S3 gallop. LUNGS: Decreased breath sounds at the bases. Very minimal/less rhonchi. No wheezing. GI: Abdomen is soft, nondistended. Bowel sounds are positive. EXTREMITIES: Mild edema. No cyanosis, no clubbing. SKIN: No acute rash. NEUROLOGIC: Exam limited at the present time. 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 There are no significant infiltrates noted. Arterial blood gas was done on PRVC 14, tidal volume 500, FIO2 40%. Results are: PH 7.38, pCO2 of 31, pO2 of 141. IMPRESSION: 1. Respiratory failure. 2. Bilateral pneumonia. 3. Rule out myocardial infarction. 4. Ischemic dilated cardiomyopathy. 5. Renal failure. 6. Anemia, thrombocytopenia. 7. Chronic obstructive pulmonary disease. 8. Rule out critical illness polyneuropathy. PLAN: The patient remains in the ICU. He remains sedated and on the ventilator. I did discuss the case with the night nurse at length. The night nurse stated the patient had an uneventful night. I did review the chest x-ray from this morning. There are no significant findings noted. Official results are pending. I have also reviewed the arterial blood gas. The arterial blood gas also continues to improve - with normalization of the pH and a decrease in the alveolar-arterial gradient. I will discuss possible retrying the weaning trials with the ICU team this morning. The patient remains on antibiotic therapy - as per Infectious Disease. Input by Dr. Lucero is noted. The temperatures have now resolved. Inputs by Renal and Cardiology are also noted. Continue with neurologic evaluation. The patient remains critically ill with overall very guarded/poor prognosis. I will discuss the above with the entire ICU team in the next few moments. I will also discuss the above with the attending physician later this morning. Balta Burr MD [facility] # [id number] MOE
[2018-07-28] MEDS ORDERED: Insulin Detemir 100 units/ml Vial (Levemir) SC SCH (08:58)
[2018-07-28] MEDS: MEROPENEM 500 MG in NS 500 MG/50 ML BAG IVPB SCH ×2 (09:07→21:43)
[2018-07-28] MEDS: DOBUTamine 500mg/250ml D5W 500 MG/250 ML BAG IV PRN (09:40)
--- NOTE | 2018-07-28 12:29 | CP.PCM.PN ---
Subjective - Date & Time of Evaluation Date of Evaluation: 07/28/18 Time of Evaluation: 12:10 - Subjective Subjective: Continues to be on the ventilator, no fevers, sedated. Objective - Vital Signs/Intake and Output Vital Signs (last 24 hours): Temp Pulse Resp BP Pulse Ox 99.0 F 61 26 H 122/50 L 100 07/27/18 07:59 07/27/18 09:05 07/25/18 04:00 07/27/18 09:05 07/27/18 07:59 Intake and Output: 07/27/18 07/27/18 06:59 18:59 Intake Total 2478 100 Output Total 1050 Balance 1428 100 - Medications Medications: Current Medications Acetaminophen (Tylenol 650mg/20.3ml Solution Ud) 650 mg PO Q6H PRN PRN Reason: Fever 101F Last Admin: 07/20/18 13:20 Dose: 650 mg Albuterol/Ipratropium (Duoneb 3 Mg/0.5 Mg (3 Ml) Ud) 3 ml IH [id number] [facility] Last Admin: 07/27/18 08:02 Dose: 3 ml Albuterol/Ipratropium (Duoneb 3 Mg/0.5 Mg (3 Ml) Ud) 3 ml IH Q2H PRN PRN Reason: Shortness of Breath Last Admin: 07/11/18 23:55 Dose: 3 ml Digoxin (Lanoxin) 0.125 mg IVP 1400 [facility] Last Admin: 07/26/18 15:21 Dose: 0.125 mg Diltiazem HCl (Cardizem) 60 mg PO TID [facility] Last Admin: 07/27/18 09:05 Dose: 60 mg Famotidine (Pepcid) 20 mg IVP Q12H [facility] Last Admin: 07/26/18 22:29 Dose: 20 mg Propofol (Diprivan) 1,000 mg in 100 mls @ 2.545 mls/hr IV .Q24H PRN; Protocol PRN Reason: TITRATE PER MD ORDER Last Admin: 07/27/18 08:57 Dose: 15 mcg/kg/min, 7.634 mls/hr Desmopressin Acetate 1 mcg/ (Sodium Chloride) 50.25 mls @ 100 mls/hr IV BID [facility] Last Admin: 07/27/18 10:26 Dose: 100 mls/hr Meropenem/Sodium Chloride (Merrem Iv 500 Mg/Ns 50 Ml) 500 mg in 50 mls @ 100 mls/hr IVPB Q12 [facility]; Protocol Stop: 07/29/18 18:16 Last Admin: 07/27/18 09:05 Dose: 100 mls/hr Dextrose (Dextrose 5% In Water 1000 Ml) 1,000 mls @ 100 mls/hr IV .Q10H [facility] Last Admin: 07/26/18 21:47 Dose: 100 mls/hr Insulin Human Regular 100 (units/ Sodium Chloride) 100 mls @ 15 mls/hr IV .Q6H40M PRN; Protocol PRN Reason: TITRATE PER MD ORDER Last Titration: 07/26/18 08:35 Dose: 2 units/hr, 2 mls/hr Insulin Detemir (Levemir) 30 unit SC HS [facility]ON Last Admin: 07/22/18 06:56 Dose: 30 units Insulin Human Lispro (Humalog High) 0 units SC Q4H [facility]; Protocol Last Admin: 07/27/18 06:13 Dose: 2 units Vitamin A (Vitamin A&D) 1 applic TP Q8 PRN PRN Reason: Dry mouth - Labs Labs: 07/27/18 06:30 07/27/18 06:30 PT 12.5 SECONDS (9.4-12.5) 07/24/18 06:10 INR 1.09 07/24/18 06:10 APTT 18.7 Seconds (25.1-36.5) L 07/06/18 11:54 - Constitutional Appears: Chronically Ill - Head Exam Head Exam: NORMAL INSPECTION - Respiratory Exam Respiratory Exam: Decreased Breath Sounds - Cardiovascular Exam Cardiovascular Exam: +S1, +S2 - GI/Abdominal Exam GI & Abdominal Exam: Soft. absent: Tenderness Assessment and Plan - Assessment and Plan (Free Text) Plan: Assessment new onset SIRS with VDRF, consider new onset sepsis due to right lower lobe aspiration hospital-acquired pneumonia thrombocytopenia probably ITP flaccid weakness of extremities consider critical illness polyneuropathy and myopathy S/P Severe sepsis with hypoxic respiratory failure and S/P ventilator-dependent respiratory failure and acute on chronic renal failure as well as thrombocytopenia due to severe right sided community-acquired pneumonia S/P viral infection with Influenza A in this patient with CVA significant and active smoking history COPD HTN DM peripheral vascular disease history of right elbow septic arthritis history of right upper extremity cellulitis Plan continue renally-adjusted Merrem day 7 for 4-7 days; sputum cx is now showing Stenotrophomonas; PCT remains low; reviewed CXR; hesitant to use Quinolones because QTc is 487 ms which is prolonged discussed with Dr. Burr - probable has critically ill- related myopathy and neuropathy - discussed with Dr. Martinez as well - one rare possibility is Guillain [place] Syndrome - as per Dr. Mcdaniels, patient is to be given IVIG - as per Neuro, it is still more likely critical-illness myopathy and neuropathy and less likely GBS, but regardless, IVIG may be beneficial for both and has now been given IVIG again patient continues to be in critical condition
[2018-07-28] MEDS: Digoxin 500 mcg/2ml (0.5 mg/2ml) Inj IVP SCH (13:52)
[2018-07-28 13:57] VITALS: PULSE 94
--- NOTE | 2018-07-28 14:21 | PN ---
SUBJECTIVE: The patient was seen and examined at bedside in the ICU. No acute events overnight. He remains afebrile, hemodynamically stable and clinically unchanged. OBJECTIVE: VITAL SIGNS: Temperature 98.4, pulse 94, blood pressure 139/67, respiratory rate 24 and oxygen saturation 100% on 40% FIO2. GENERAL: Intubated and sedated. HEENT: PERRL. ETT in place and OGT in place. NECK: No JVD. LUNGS: Coarse anterior breath sounds with few scattered rhonchi. CARDIOVASCULAR: Regular rate and rhythm. Normal S1 and S2. ABDOMEN: Normoactive bowel sounds. Soft, nondistended. EXTREMITIES: Trace pedal edema. NEUROLOGIC: Intubated and sedated. LABORATORY DATA: WBC 9.2 with 94% neutrophils, hemoglobin 7, hematocrit 23 and platelets 8. Sodium 139, potassium 4.5, chloride 115, bicarb 20, BUN 55, creatinine 1.4 and glucose 342. ASSESSMENT: The patient is a 62-year-old man with multiple medical comorbidities who was admitted to the ICU s/p intubation for acute hypoxic respiratory failure and severe sepsis secondary to community-acquired pneumonia who is now s/p reintubation for hypercapnic respiratory failure likely secondary to right lower lobe aspiration pneumonia. PLAN: 1. Ventilator dependent respiratory failure, likely secondary to aspiration pneumonia. Input from Dr. Burr and ICU team noted. Continue with care as per ICU team. The patient will likely require placement of tracheostomy. 2. Severe sepsis secondary to aspiration pneumonia, resolving. Input from Dr. Lucero noted. The patient remains afebrile and with negative blood cultures. Continue with antimicrobials as per Dr. Lucero. 3. 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 Input from Dr. Mcdaniels noted. The patient is s/p a course of IVIG. Continue with aggressive PT. Arrangements are being made for transfer to LTAC. 4. Acute kidney injury, likely secondary to ATN, resolving. Input from Dr. Sullivan appreciated and renal parameters continue to improve. Continue to monitor strict I&O's, renally dose medications and avoid nephrotoxins. 5. Thrombocytopenia secondary to ITP. Input from Dr. Estevez noted. The patient is s/p a course of IVIG. Continue to monitor CBC. 6. NSTEMI. Input from Dr. Saxena noted. The patient is not a candidate for cardiac cath given his clinical condition. 7. Paroxysmal atrial fibrillation. Continue Diltiazem and Digoxin. 8. Acute systolic heart failure, resolved. Continue with care as per Dr. Saxena. 9. Transaminitis, resolved. 10. Normocytic anemia. Continue monitor CBC and transfuse as needed. 11. Type 2 diabetes mellitus. Continue with current insulin regimen. 12. Hypertension. 13. Pseudogout. 14. Anxiety disorder. 15. GERD. 16. Prophylaxis. Continue Protonix for GI prophylaxis and SCDs for DVT prophylaxis. CODE STATUS: Full code. Yassine Martinez MD [id number]
[2018-07-28] MEDS ORDERED: ROMIPLOSTIM 250 MCG/0.5 ML SC ONE (16:08)
--- NOTE | 2018-07-28 17:10 | PN ---
DATE: 07/28/2018 SUBJECTIVE: The patient is tolerating the IV dobutamine. PHYSICAL EXAMINATION: VITAL SIGNS: His hemodynamics reveals a blood pressure of 147/68 with heart rate in the 80s. His pulse oximetry is 100% on 40% FIO2. GENERAL: The patient remains on a ventilator. LUNGS: Decreased breath sounds. HEART: Reveal S1, S2. EXTREMITIES: Without edema. NEUROLOGIC: The patient is sedated. LABORATORY DATA: Hemoglobin is 7. Chemistries, BUN and creatinine 55 and 1.4. Platelet count is 14,000. IMPRESSION: 1. Respiratory failure. 2. Dilated cardiomyopathy. 3. Severe thrombocytopenia. 4. Anemia. 5. Recent [id number] myocardial infarction. Given these findings, we will continue the patient on IV ionotropic therapy. Attempts at weaning the patient off the ventilator would be appropriate. Benjamin Saxena MD
--- NOTE | 2018-07-28 23:53 | PN ---
DATE: 07/28/2018 SUBJECTIVE: The patient was seen lying in bed in the ICU. He is on sedation. He is minimally responsive. Just mild grimace with deep pain. Earlier today, he was given a sedation vacation. At that time, he opened his eyes, but did not follow any commands. Did not move any extremities. PHYSICAL EXAMINATION: GENERAL: Elderly male, lying in bed. VITAL SIGNS: Blood pressure 138/67, heart rate 94, respiratory rate 24, and temperature 100. HEENT: Normocephalic and atraumatic. Positive pallor. NECK: Supple. No JVD. LUNGS: Bilateral equal air entry. Bilateral equal expansion. Bilateral rhonchi. CARDIAC: S1 and S2. Regular rate and rhythm. No murmur. No rub. ABDOMEN: Soft, nondistended, and nontender. Bowel sounds present. EXTREMITIES: No lower extremity edema. Chronic stasis changes. INTAKE AND OUTPUT: 3766/0. LABORATORY DATA: WBC 9.2, hemoglobin 7, hematocrit 22.6, platelets 8, and manual count 14. Sodium 139, potassium 4.5, chloride 115, CO2 of 20, BUN 55, creatinine 1.4, glucose 342, and calcium 7.3. AST 53 and ALT 57. ABG; pH of 7.38, pCO2 of 31, and pO2 of 141. CURRENT MEDICATIONS: Cardizem 60 t.i.d., Diprivan 15 mcg/kg/min, dobutamine 5 mcg/kg/min, DuoNeb, insulin, meropenem 500 every 12 hours, Pepcid, Tylenol, and digoxin 0.125. ASSESSMENT: 1. Severe anemia, hemoglobin 7. 2. Severe thrombocytopenia. 3. Multiorgan dysfunction, respiratory failure, critical illness polyneuropathy. 4. Acute kidney injury resolved, required dialysis. 5. Kit-gkawnyv-hmkjgmihk diabetes mellitus. 6. Status post IV steroids leading to severe hyperglycemia. 7. Status post IVIG for thrombocytopenia, history of immune thrombocytopenic purpura, ?disseminated intravascular coagulation. PLAN: 1. The patient received 1 unit of PRBC this morning. 2. He received 1 unit of platelets. 3. Agree with discontinuation of D5W. 4. Agree with discontinuation of insulin drip. 5. Continue respiratory support. 6. Continue antibiotics as per Infectious Disease recommendations. 7. Remains critically ill, prognosis guarded. More than 35 minutes spent in the care of this critically ill patient. Bobbi Sullivan MD
[2018-07-29] MEDS: Albuterol-Ipratrop 3 mg / 0.5 (3 ml) UD IH SCH ×4 (01:00→19:49)
[2018-07-29] MEDS: Insulin Lispro (HUMAlog) HIGH Coverage SC SCH ×5 (02:00→21:55)
[2018-07-29 06:06] LABS: ARTERIAL BLOOD GAS HCO3 18.6 mmol/L (21-28); ARTERIAL BLOOD GAS HEMOGLOBIN 8.2 g/dL (11.7-17.4); ARTERIAL BLOOD GAS O2 CAPACITY 11.7 mL/dl (16-24); ARTERIAL BLOOD GAS O2 CONTENT 11.6 ML/dl (15-23); ARTERIAL BLOOD GAS O2 SAT 99.5 % (95-98); ARTERIAL BLOOD GAS PCO2 30 mm/Hg (35-45); ARTERIAL BLOOD GAS TCO2 19.5 mmol.L (22-28)
[2018-07-29 06:35] LABS: EOS # 0.2 (0.0-0.7); EOS % 2.2 % (1.5-5.0); GRAN # 8.43 (1.4-6.5); HEMOGLOBIN 7.5 g/dL (14.0-18.0); LYMPH # 0.4 (1.2-3.4); LYMPH % 4.6 % (22.0-35.0); MEAN CORPUSCULAR HEMOGLOBIN 27.9 pg (25.0-35.0); MEAN CORPUSCULAR HGB CONC 32.1 g/dl (31.0-37.0); MONO # 0.2 (0.1-0.6); MONO % 2.2 % (1.0-6.0); RBC 2.69 10^6/uL (3.5-6.1); RED CELL DISTRIBUTION WIDTH 17.3 % (11.5-14.5); WHITE BLOOD COUNT 9.3 10^3/uL (4.5-11.0)
[2018-07-29 06:45] LABS: ALB/GLOB RATIO 0.6 (1.1-1.8); ALBUMIN 2.1 g/dL (3.0-4.8); ALT/SGPT 65 U/L (7-56); AST/SGOT 59 U/L (17-59); BLOOD UREA NITROGEN 54 mg/dL (7-21); CALCIUM 7.7 mg/dL (8.4-10.5); GFR NON-AFRICAN AMERICAN 56
[2018-07-29 07:21] LABS: PLATELET COUNT 16 10^3/uL (120.0-450.0)
--- NOTE | 2018-07-29 08:24 | PN ---
DATE: 07/29/2018 PULMONARY NOTE SUBJECTIVE: The patient remains on the ventilator. He remains sedated. OBJECTIVE: VITAL SIGNS: Temperature is 100.0, pulse 73, respiratory rate 26/14, blood pressure 156/64. HEENT: Normocephalic, atraumatic. NECK: No JVD. CARDIOVASCULAR: Systolic ejection murmur at the lower left sternal border. No S3 gallop. LUNGS: Decreased breath sounds at the bases. Very minimal/less rhonchi. No wheezing. EXTREMITIES: Mild edema. No cyanosis, no clubbing. GI: Abdomen is soft, nondistended. Bowel sounds are positive. SKIN: No acute rash. NEUROLOGIC: Limited at the present time. 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 There are no significant findings noted(much improved overall). Official results are pending. Arterial blood gas was done on PRBC 14, tidal volume 500, FiO2 40%. Results are: PH 7.40, pCO2 of 30, pO2 of 173. IMPRESSION: 1. Respiratory failure. 2. Bilateral pneumonia. 3. Rule out myocardial infarction. 4. Ischemic dilated cardiomyopathy. 5. Renal failure. 6. Anemia, thrombocytopenia. 7. Chronic obstructive pulmonary disease. 8. Rule out critical illness polyneuropathy. PLAN: The patient remains in the ICU. He remains sedated and on the ventilator. I did discuss the case with the night nurse at length. The night nurse stated that the patient had an uneventful night. I did review the chest x-ray from this morning. There are no significant findings noted. Official results are pending. I have also reviewed the arterial blood gas. The arterial blood gas remains much improved with a normal PH and a decrease in the alveolar-arterial gradient. The patient remains on antibiotic therapy. Input by Dr. Lucero is noted. Low-grade temperatures are noted. Inputs by Cardiology and Renal are also noted. I would also continue with the neurologic followup The patient remains critically ill,with very guarded/poor prognosis. I will discuss the above with the entire ICU team later this morning. I will also discuss the above with the attending physician later this morning. Balta Burr MD MTDD
[2018-07-29] MEDS: Propofol 10 mg/ml 1,000 MG/100 ML VIAL IV PRN ×2 (08:31→20:31)
[2018-07-29 08:47] LABS: EOSINOPHIL 5 % (0.0-3.0); LYMPHOCYTE 3 % (22.0-35.0); MONOCYTE 2 % (1.0-6.0); NEUTROPHIL 90 % (50.0-70.0)
[2018-07-29] MEDS: MEROPENEM 500 MG in NS 500 MG/50 ML BAG IVPB SCH (10:45)
--- NOTE | 2018-07-29 10:57 | CP.CCUPN ---
<Dannie Yeh - Last Filed: 07/29/18 10:48> CCU Subjective - Physician Review Subjective (Free Text): Dannie Yeh PGY1 Critical Care Progress Note Patient seen and examined at bedside this morning. No acute events reported overnight. Patient continues to be intubated and sedated. 12 point ROS limited due to patient status. S/p 1 unit PRBC, platelets yesterday. Tentative plan for LTAC today. 12 point ROS unobtainable due to patient status. CCU Objective - Vital Signs / Intake & Output Vital Signs (Last 4 hours): Vital Signs Temp Pulse BP Pulse Ox 07/29/18 10:08 101 H 135/74 07/29/18 09:00 100.6 F H 85 159/66 H 100 07/29/18 08:00 100.4 F H 82 158/71 H 100 07/29/18 07:00 100.4 F H 79 162/70 H 100 Intake and Output (Last 8hrs): Intake & Output 07/28/18 07/29/18 07/29/18 22:59 06:59 14:59 Intake Total 1575 1233 44 Output Total 1350 1000 Balance 225 233 44 Intake: IV 413 293 44 IVF 80 abx 50 50 dobutamine 154 152 propofol 85 91 Tube Feeding 540 540 Blood Product 202 Apheresis Plts Acda Lr 202 3rd Con Unit [id number] Other 420 400 Apheresis Plts Acda Lr 20 3rd Con Unit [id number] Output: Urine 1350 1000 Urethral (Oliveros) 1350 1000 Stool 0 Urine/Stool Mix 0 Emesis 0 Oral Regurgitation 0 Other 0 Other: # Bowel Movements 0 - Physical Exam Head: Positive for: Atraumatic, Normocephalic Pupils: Positive for: PERRL Extroacular Muscles: Negative for: EOMI (unable to be assessed) Conjunctiva: Positive for: Normal Mouth: Positive for: Dry, Drooling Pharnyx: Positive for: Other (intubated ) Nose (External): Positive for: Other (Dobhoff in place in R nares, NC in place) Respiratory/Chest: Positive for: Clear to Auscultation, Decreased Breath Sounds. Negative for: Respiratory Distress, Wheezes, Tachypneic Cardiovascular: Positive for: Normal S1, S2. Negative for: Murmurs Abdomen: Negative for: Tenderness, Peritoneal Signs, Guarding Back: Positive for: Normal Inspection Upper Extremity: Positive for: Normal Inspection, Other (flaccid). Negative for: Cyanosis, Edema Lower Extremity: Positive for: Edema (1+ pitting edema noted to right lower extremity; chronic diabetic ulcer noted to anterior anderson of left lower extremity ), Other (flaccid) Neurological: Negative for: GCS=15, CN II-XII Intact, Speech Normal Skin: Positive for: Warm, Dry, Normal Color, Other (Ecchymotic in R antecubital region, stable; ecchymoses at different levels of healing throughout extremities ). Negative for: Rashes Psychiatric: Negative for: Oriented x 3, Normal Insight - Medications Active Medications: Active Medications Generic Name Dose Route Start Last Admin Trade Name Freq PRN Reason Stop Dose Admin Acetaminophen 650 mg 07/08/18 18:18 07/20/18 13:20 Tylenol 650mg/20.3ml Solution Ud PO 650 mg Q6H PRN Administration Fever 101F Albuterol/Ipratropium 3 ml 07/03/18 14:00 07/29/18 08:00 Duoneb 3 Mg/0.5 Mg (3 Ml) Ud IH 3 ml [id number] SEEMA Administration Albuterol/Ipratropium 3 ml 07/03/18 11:04 07/11/18 23:55 Duoneb 3 Mg/0.5 Mg (3 Ml) Ud IH 3 ml Q2H PRN Administration Shortness of Breath Diltiazem HCl 60 mg 07/17/18 14:00 07/29/18 10:08 Cardizem PO 60 mg TID SEEMA Administration Propofol 1,000 mg in 100 mls @ 2.545 mls/hr 07/22/18 08:29 07/29/18 08:31 Diprivan IV 15 mcg/kg/min .Q24H PRN 7.634 mls/hr TITRATE PER MD ORDER Administration Protocol 5 MCG/KG/MIN Meropenem/Sodium Chloride 500 mg in 50 mls @ 100 mls/hr 07/22/18 18:15 07/28/18 21:43 Merrem Iv 500 Mg/Ns 50 Ml IVPB 07/29/18 18:16 100 mls/hr Q12 SEEMA Administration Protocol Insulin Human Regular 100 100 mls @ 15 mls/hr 07/24/18 08:24 07/26/18 08:35 units/ Sodium Chloride IV 2 units/hr .[id number] PRN 2 mls/hr TITRATE PER MD ORDER Titration Protocol 15 UNITS/HR Dobutamine HCl/Dextrose 500 mg in 250 mls @ 12.791 mls/hr 07/27/18 12:50 07/29/18 09:08 Dobutamine/Dextrose 5% 500mg/250ml IV 5 mcg/kg/min .[id number] PRN 12.791 mls/hr TITRATE PER PROTOCOL Titration Protocol 5 MCG/KG/MIN Insulin Detemir 15 unit 07/28/18 08:58 Levemir SC HS [facility] Insulin Human Lispro 0 units 07/26/18 10:00 07/29/18 06:00 Humalog High SC Not Given Q4H [facility] Protocol - Patient Studies Lab Studies: Lab Studies 07/29/18 07/29/18 07/29/18 Range/Units 08:00 05:50 05:47 WBC (4.5-11.0) 10^3/uL RBC (3.5-6.1) 10^6/uL Hgb (14.0-18.0) g/dL Hct (42.0-52.0) % MCV (80.0-105.0) fl MCH (25.0-35.0) pg MCHC (31.0-37.0) g/dl RDW (11.5-14.5) % Plt Count (120.0-450.0) 10^3/uL Manual Plt Count 42 L* (120-450) K/mm3 Gran % (50.0-68.0) % Lymph % (Auto) (22.0-35.0) % [place] % (Auto) (1.0-6.0) % Eos % (Auto) (1.5-5.0) % Baso % (Auto) (0.0-3.0) % Gran # (1.4-6.5) Lymph # (Auto) (1.2-3.4) [place] # (Auto) (0.1-0.6) Eos # (Auto) (0.0-0.7) Baso # (Auto) (0.0-2.0) K/mm3 Neutrophils % (Manual) (50.0-70.0) % Lymphocytes % (Manual) (22.0-35.0) % Monocytes % (Manual) (1.0-6.0) % Eosinophils % (Manual) (0.0-3.0) % pCO2 30 L (35-45) mm/Hg pO2 173.0 H (80-100) mm/Hg HCO3 18.6 L (21-28) mmol/L ABG pH 7.40 (7.35-7.45) ABG Total CO2 19.5 L (22-28) mmol.L ABG O2 Saturation 99.5 H (95-98) % ABG O2 Content 11.6 L (15-23) ML/dl ABG Base Excess -5.5 L (-2.0-3.0) mmol/L ABG Hemoglobin 8.2 L (11.7-17.4) g/dL ABG Carboxyhemoglobin 1.8 H (0.5-1.5) % POC ABG HHb (Measured) 0.5 (0-5) % ABG Methemoglobin 1.0 (0.0-3.0) % ABG O2 Capacity 11.7 L (16-24) mL/dl Hgb O2 Saturation 96.7 (95.0-98.0) % FiO2 40.0 % Sodium (132-148) mmol/L Potassium (3.6-5.0) mmol/L Chloride (98-107) mmol/L Carbon Dioxide (21-33) mmol/L Anion Gap (10-20) BUN (7-21) mg/dL Creatinine (0.8-1.5) mg/dl Est GFR ( Amer) Est GFR (Non-Af Amer) POC Glucose (mg/dL) 106 (65-110) mg/dL Random Glucose (70-110) mg/dL Calcium (8.4-10.5) mg/dL Total Bilirubin (0.2-1.3) mg/dL AST (17-59) U/L ALT (7-56) U/L Alkaline Phosphatase (38-126) U/L Total Protein (5.8-8.3) g/dL Albumin (3.0-4.8) g/dL Globulin gm/dL Albumin/Globulin Ratio (1.1-1.8) Crossmatch 07/29/18 07/29/18 07/29/18 Range/Units 05:15 05:15 01:51 WBC 9.3 (4.5-11.0) 10^3/uL RBC 2.69 L (3.5-6.1) 10^6/uL Hgb 7.5 L (14.0-18.0) g/dL Hct 23.4 L (42.0-52.0) % MCV 87.0 (80.0-105.0) fl MCH 27.9 (25.0-35.0) pg MCHC 32.1 (31.0-37.0) g/dl RDW 17.3 H (11.5-14.5) % Plt Count 16 L* (120.0-450.0) 10^3/uL Manual Plt Count (120-450) K/mm3 Gran % 91.0 H (50.0-68.0) % Lymph % (Auto) 4.6 L (22.0-35.0) % [place] % (Auto) 2.2 (1.0-6.0) % Eos % (Auto) 2.2 (1.5-5.0) % Baso % (Auto) 0.0 (0.0-3.0) % Gran # 8.43 H (1.4-6.5) Lymph # (Auto) 0.4 L (1.2-3.4) [place] # (Auto) 0.2 (0.1-0.6) Eos # (Auto) 0.2 (0.0-0.7) Baso # (Auto) 0.00 (0.0-2.0) K/mm3 Neutrophils % (Manual) 90 H (50.0-70.0) % Lymphocytes % (Manual) 3 L (22.0-35.0) % Monocytes % (Manual) 2 (1.0-6.0) % Eosinophils % (Manual) 5 H (0.0-3.0) % pCO2 (35-45) mm/Hg pO2 (80-100) mm/Hg HCO3 (21-28) mmol/L ABG pH (7.35-7.45) ABG Total CO2 (22-28) mmol.L ABG O2 Saturation (95-98) % ABG O2 Content (15-23) ML/dl ABG Base Excess (-2.0-3.0) mmol/L ABG Hemoglobin (11.7-17.4) g/dL ABG Carboxyhemoglobin (0.5-1.5) % POC ABG HHb (Measured) (0-5) % ABG Methemoglobin (0.0-3.0) % ABG O2 Capacity (16-24) mL/dl Hgb O2 Saturation (95.0-98.0) % FiO2 % Sodium 142 (132-148) mmol/L Potassium 4.8 (3.6-5.0) mmol/L Chloride 117 H (98-107) mmol/L Carbon Dioxide 22 (21-33) mmol/L Anion Gap 8 L (10-20) BUN 54 H (7-21) mg/dL Creatinine 1.3 (0.8-1.5) mg/dl Est GFR ( Amer) > 60 Est GFR (Non-Af Amer) 56 POC Glucose (mg/dL) 96 (65-110) mg/dL Random Glucose 109 (70-110) mg/dL Calcium 7.7 L (8.4-10.5) mg/dL Total Bilirubin 0.5 (0.2-1.3) mg/dL AST 59 (17-59) U/L ALT 65 H (7-56) U/L Alkaline Phosphatase 108 (38-126) U/L Total Protein 5.9 (5.8-8.3) g/dL Albumin 2.1 L (3.0-4.8) g/dL Globulin 3.7 gm/dL Albumin/Globulin Ratio 0.6 L (1.1-1.8) Crossmatch 07/28/18 07/28/18 07/28/18 Range/Units 21:53 17:49 14:02 WBC (4.5-11.0) 10^3/uL RBC (3.5-6.1) 10^6/uL Hgb (14.0-18.0) g/dL Hct (42.0-52.0) % MCV (80.0-105.0) fl MCH (25.0-35.0) pg MCHC (31.0-37.0) g/dl RDW (11.5-14.5) % Plt Count (120.0-450.0) 10^3/uL Manual Plt Count (120-450) K/mm3 Gran % (50.0-68.0) % Lymph % (Auto) (22.0-35.0) % [place] % (Auto) (1.0-6.0) % Eos % (Auto) (1.5-5.0) % Baso % (Auto) (0.0-3.0) % Gran # (1.4-6.5) Lymph # (Auto) (1.2-3.4) [place] # (Auto) (0.1-0.6) Eos # (Auto) (0.0-0.7) Baso # (Auto) (0.0-2.0) K/mm3 Neutrophils % (Manual) (50.0-70.0) % Lymphocytes % (Manual) (22.0-35.0) % Monocytes % (Manual) (1.0-6.0) % Eosinophils % (Manual) (0.0-3.0) % pCO2 (35-45) mm/Hg pO2 (80-100) mm/Hg HCO3 (21-28) mmol/L ABG pH (7.35-7.45) ABG Total CO2 (22-28) mmol.L ABG O2 Saturation (95-98) % ABG O2 Content (15-23) ML/dl ABG Base Excess (-2.0-3.0) mmol/L ABG Hemoglobin (11.7-17.4) g/dL ABG Carboxyhemoglobin (0.5-1.5) % POC ABG HHb (Measured) (0-5) % ABG Methemoglobin (0.0-3.0) % ABG O2 Capacity (16-24) mL/dl Hgb O2 Saturation (95.0-98.0) % FiO2 % Sodium (132-148) mmol/L Potassium (3.6-5.0) mmol/L Chloride (98-107) mmol/L Carbon Dioxide (21-33) mmol/L Anion Gap (10-20) BUN (7-21) mg/dL Creatinine (0.8-1.5) mg/dl Est GFR ( Amer) Est GFR (Non-Af Amer) POC Glucose (mg/dL) 76 187 H 295 H (65-110) mg/dL Random Glucose (70-110) mg/dL Calcium (8.4-10.5) mg/dL Total Bilirubin (0.2-1.3) mg/dL AST (17-59) U/L ALT (7-56) U/L Alkaline Phosphatase (38-126) U/L Total Protein (5.8-8.3) g/dL Albumin (3.0-4.8) g/dL Globulin gm/dL Albumin/Globulin Ratio (1.1-1.8) Crossmatch 07/28/18 07/28/18 Range/Units 10:07 08:55 WBC (4.5-11.0) 10^3/uL RBC (3.5-6.1) 10^6/uL Hgb (14.0-18.0) g/dL Hct (42.0-52.0) % MCV (80.0-105.0) fl MCH (25.0-35.0) pg MCHC (31.0-37.0) g/dl RDW (11.5-14.5) % Plt Count (120.0-450.0) 10^3/uL Manual Plt Count (120-450) K/mm3 Gran % (50.0-68.0) % Lymph % (Auto) (22.0-35.0) % [place] % (Auto) (1.0-6.0) % Eos % (Auto) (1.5-5.0) % Baso % (Auto) (0.0-3.0) % Gran # (1.4-6.5) Lymph # (Auto) (1.2-3.4) [place] # (Auto) (0.1-0.6) Eos # (Auto) (0.0-0.7) Baso # (Auto) (0.0-2.0) K/mm3 Neutrophils % (Manual) (50.0-70.0) % Lymphocytes % (Manual) (22.0-35.0) % Monocytes % (Manual) (1.0-6.0) % Eosinophils % (Manual) (0.0-3.0) % pCO2 (35-45) mm/Hg pO2 (80-100) mm/Hg HCO3 (21-28) mmol/L ABG pH (7.35-7.45) ABG Total CO2 (22-28) mmol.L ABG O2 Saturation (95-98) % ABG O2 Content (15-23) ML/dl ABG Base Excess (-2.0-3.0) mmol/L ABG Hemoglobin (11.7-17.4) g/dL ABG Carboxyhemoglobin (0.5-1.5) % POC ABG HHb (Measured) (0-5) % ABG Methemoglobin (0.0-3.0) % ABG O2 Capacity (16-24) mL/dl Hgb O2 Saturation (95.0-98.0) % FiO2 % Sodium (132-148) mmol/L Potassium (3.6-5.0) mmol/L Chloride (98-107) mmol/L Carbon Dioxide (21-33) mmol/L Anion Gap (10-20) BUN (7-21) mg/dL Creatinine (0.8-1.5) mg/dl Est GFR ( Amer) Est GFR (Non-Af Amer) POC Glucose (mg/dL) 433 H* (65-110) mg/dL Random Glucose (70-110) mg/dL Calcium (8.4-10.5) mg/dL Total Bilirubin (0.2-1.3) mg/dL AST (17-59) U/L ALT (7-56) U/L Alkaline Phosphatase (38-126) U/L Total Protein (5.8-8.3) g/dL Albumin (3.0-4.8) g/dL Globulin gm/dL Albumin/Globulin Ratio (1.1-1.8) Crossmatch See Detail Laboratory Results - last 24 hr 07/28/18 07/28/18 07/28/18 08:55 10:07 14:02 WBC RBC Hgb Hct MCV MCH MCHC RDW Plt Count Manual Plt Count Gran % Lymph % (Auto) [place] % (Auto) Eos % (Auto) Baso % (Auto) Gran # Lymph # (Auto) [place] # (Auto) Eos # (Auto) Baso # (Auto) Neutrophils % (Manual) Lymphocytes % (Manual) Monocytes % (Manual) Eosinophils % (Manual) pCO2 pO2 HCO3 ABG pH ABG Total CO2 ABG O2 Saturation ABG O2 Content ABG Base Excess ABG Hemoglobin ABG Carboxyhemoglobin POC ABG HHb (Measured) ABG Methemoglobin ABG O2 Capacity Hgb O2 Saturation FiO2 Sodium Potassium Chloride Carbon Dioxide Anion Gap BUN Creatinine Est GFR ( Amer) Est GFR (Non-Af Amer) POC Glucose (mg/dL) 433 H* 295 H Random Glucose Calcium Total Bilirubin AST ALT Alkaline Phosphatase Total Protein Albumin Globulin Albumin/Globulin Ratio Crossmatch See Detail 07/28/18 07/28/18 07/29/18 17:49 21:53 01:51 WBC RBC Hgb Hct MCV MCH MCHC RDW Plt Count Manual Plt Count Gran % Lymph % (Auto) [place] % (Auto) Eos % (Auto) Baso % (Auto) Gran # Lymph # (Auto) [place] # (Auto) Eos # (Auto) Baso # (Auto) Neutrophils % (Manual) Lymphocytes % (Manual) Monocytes % (Manual) Eosinophils % (Manual) pCO2 pO2 HCO3 ABG pH ABG Total CO2 ABG O2 Saturation ABG O2 Content ABG Base Excess ABG Hemoglobin ABG Carboxyhemoglobin POC ABG HHb (Measured) ABG Methemoglobin ABG O2 Capacity Hgb O2 Saturation FiO2 Sodium Potassium Chloride Carbon Dioxide Anion Gap BUN Creatinine Est GFR ( Amer) Est GFR (Non-Af Amer) POC Glucose (mg/dL) 187 H 76 96 Random Glucose Calcium Total Bilirubin AST ALT Alkaline Phosphatase Total Protein Albumin Globulin Albumin/Globulin Ratio Crossmatch 07/29/18 07/29/18 07/29/18 05:15 05:15 05:47 WBC 9.3 RBC 2.69 L Hgb 7.5 L Hct 23.4 L MCV 87.0 MCH 27.9 MCHC 32.1 RDW 17.3 H Plt Count 16 L* Manual Plt Count Gran % 91.0 H Lymph % (Auto) 4.6 L [place] % (Auto) 2.2 Eos % (Auto) 2.2 Baso % (Auto) 0.0 Gran # 8.43 H Lymph # (Auto) 0.4 L [place] # (Auto) 0.2 Eos # (Auto) 0.2 Baso # (Auto) 0.00 Neutrophils % (Manual) 90 H Lymphocytes % (Manual) 3 L Monocytes % (Manual) 2 Eosinophils % (Manual) 5 H pCO2 pO2 HCO3 ABG pH ABG Total CO2 ABG O2 Saturation ABG O2 Content ABG Base Excess ABG Hemoglobin ABG Carboxyhemoglobin POC ABG HHb (Measured) ABG Methemoglobin ABG O2 Capacity Hgb O2 Saturation FiO2 Sodium 142 Potassium 4.8 Chloride 117 H Carbon Dioxide 22 Anion Gap 8 L BUN 54 H Creatinine 1.3 Est GFR ( Amer) > 60 Est GFR (Non-Af Amer) 56 POC Glucose (mg/dL) 106 Random Glucose 109 Calcium 7.7 L Total Bilirubin 0.5 AST 59 ALT 65 H Alkaline Phosphatase 108 Total Protein 5.9 Albumin 2.1 L Globulin 3.7 Albumin/Globulin Ratio 0.6 L Crossmatch 07/29/18 07/29/18 05:50 08:00 WBC RBC Hgb Hct MCV MCH MCHC RDW Plt Count Manual Plt Count 42 L* Gran % Lymph % (Auto) [place] % (Auto) Eos % (Auto) Baso % (Auto) Gran # Lymph # (Auto) [place] # (Auto) Eos # (Auto) Baso # (Auto) Neutrophils % (Manual) Lymphocytes % (Manual) Monocytes % (Manual) Eosinophils % (Manual) pCO2 30 L pO2 173.0 H HCO3 18.6 L ABG pH 7.40 ABG Total CO2 19.5 L ABG O2 Saturation 99.5 H ABG O2 Content 11.6 L ABG Base Excess -5.5 L ABG Hemoglobin 8.2 L ABG Carboxyhemoglobin 1.8 H POC ABG HHb (Measured) 0.5 ABG Methemoglobin 1.0 ABG O2 Capacity 11.7 L Hgb O2 Saturation 96.7 FiO2 40.0 Sodium Potassium Chloride Carbon Dioxide Anion Gap BUN Creatinine Est GFR ( Amer) Est GFR (Non-Af Amer) POC Glucose (mg/dL) Random Glucose Calcium Total Bilirubin AST ALT Alkaline Phosphatase Total Protein Albumin Globulin Albumin/Globulin Ratio Crossmatch Fingerstick Blood Sugar Results: 106 Critical Care Progress Note - Nutrition Nutrition: Nutrition Category Date Time Status NPO Diet [DIET] Diets 07/06/18 Breakfast Ordered Assessment/Plan - Assessment and Plan (Free Text) Assessment: 62 y/o male with PMHx of COPD, active smoker 1pk per day, HTN, DM, PVD, presents with ER with 2 day history of fever, chills, associated with cough that is non- productive. Patient was initially started on heparin drip given elevated troponin, and markedly diminished EF. Hep drip currently held secondary to thrombocytopenia. Initially paralyzed on Nimbex after overbreathing ventilator. Extubated last week, ARDS resolved and s/p merrem and doxycycline antibiotic therapy for pneumonia. Awaiting LTAC facility transfer. Plan: Neuro: Critical Illness Polyneuropathy - approved for LTAC placement, awaiting facility/medicare approval. Tentative plan for today - ABG today shows pH 7.4, pCO2 30, pO2 173, bicarb of 22 - intubated on 07/22/18 due to not protecting airway, currently sedated on propofol - Neuro consult - Per neurologist, poor motor function likely from critical illness polyneuropathy - Results of EEG 07/10/18: moderate nonspecific diffuse disturbance of cortical activity, nonspecific diffuse fernandez matter dysfunction, no seizures, not in status epilepticus - 07/13/18 MRI brain without contrast negative for acute abnormalitie, 07/10/18 CT head without contrast negative Pulmology S/p intubation on 07/22/18 -unable to protect airway -ABG is improved post intubation on 07/22/18 with pH of 7.31 and pCO2 of 37. Sedated on propofol CAP and Flu A positive - completed tamiflu and merrem/doxycycline treatment for flu and CAP respec tively - CXR 07/22 shows new right sided infiltrate, today is day 8 out of 8 merrem - Duonebs seema q6 and PRN q2 - Urine Lg and Strep negative - Procal is 0.16 on 07/19 from 0.6 on 07/14 - ID eval: Dr. Fernandes, Pulm consulted - Dr. Aminah Webb OG - downtrending - BUN/Cr downtrending - hypernatremia - resolved - continue D5 free water - Strict Is and Os, oliveros in place - now off HD - Tolerated first HD on 07/07/18 - Nephro consult - recs appreciated. Per nephro, no hemodialysis at this time - Continue water flushes per Nephro recs in light of low EF. - F/u nephro recs to consider repeating urine electrolytes ID RLL Pneumonia - afebrile overnight, WBC 9.3 - s/p treatment of flu and pna with tamiflu and merrem/doxy -today is day 8/8 merrem for new right sided infiltrate - Ammonia level <9 - ID eval: Dr. Fernandes - Repeat blood cx neg after 5 days, repeat UA negative, repeat sputum cx growing moderate amount of yeast. Cardiology NSTEMI - 07/03 Troponins elevated 0.48, 0.67, 0.67 - Cardiology consulted - Dr. Saxena. Cardiac cath on hold due to persistent thrombocytopenia. - started on dobutamine drip as per cardio - Dig level 07/20 is 0.9 WNL - Hold IVF d/t poor EF, Hold Heparin drip HFrEF - BNP 17722 on 07/03 - 07/03/18 echo report shows EF 14.2%, mildly dilated LV, systolic function severely impaired, akinetic septum, TR and pulm HTN -continue digoxin 0.125mg IV, cardizem 60mg TID for afib Heme Chronic Thrombocytopenia, ITP - Received previous transfusions as outpatient - [facility] platelets are 42 today - total 7 unit PLT transfused. IV gammaglobulin 5 day course completed on 07/11/18 - completed second course of IVIG for 3 days - 07/24/18 - Will transfuse if <20 or actively bleeding per Hem recs - Will hold off on DVT chemoprophylaxis at this time, may resume if platelets >50 per heme/onc - Hem consult placed- Dr. Estevez - Negative IVONE and ANCA studies, ESR 45, HIT antibody negative Endo Uncontrolled DM - continue high insulin sliding scale, ACHS - Hgb a1c 8.2 - Diabetic education GI - OG tube in place, hold tube feedings for now due to uncontrolled sugars, electrolytes - swallow eval 07/17/18: Pt. poorly responsive, with hyper gag reflex. No response to oral stimulation or spoon/straw tip. - Shock liver resolved - Hep panel negative - 07/03/18 RUQ U/S shows hepatosplenomegaly - pepcid for PPX Dispo: Approved for LTAC, awaiting family choice of LTAC facility. Patient seen and case discussed with attending, Dr. Casanova <Blake Casanova - Last Filed: 07/29/18 11:48> CCU Objective - Vital Signs / Intake & Output Vital Signs (Last 4 hours): Vital Signs Temp Pulse BP Pulse Ox 07/29/18 10:08 101 H 135/74 07/29/18 10:00 100.8 F H 103 H 135/74 100 07/29/18 09:00 100.6 F H 85 159/66 H 100 07/29/18 08:00 100.4 F H 82 158/71 H 100 Intake and Output (Last 8hrs): Intake & Output 07/28/18 07/29/18 07/29/18 22:59 06:59 14:59 Intake Total 1575 1233 44 Output Total 1350 1000 Balance 225 233 44 Intake: IV 413 293 44 IVF 80 abx 50 50 dobutamine 154 152 propofol 85 91 Tube Feeding 540 540 Blood Product 202 Apheresis Plts Acda Lr 202 3rd Con Unit [id number] Other 420 400 Apheresis Plts Acda Lr 20 3rd Con Unit [id number] Output: Urine 1350 1000 Urethral (Oliveros) 1350 1000 Stool 0 Urine/Stool Mix 0 Emesis 0 Oral Regurgitation 0 Other 0 Other: # Bowel Movements 0 - Medications Active Medications: Active Medications Generic Name Dose Route Start Last Admin Trade Name Freq PRN Reason Stop Dose Admin Acetaminophen 650 mg 07/08/18 18:18 07/20/18 13:20 Tylenol 650mg/20.3ml Solution Ud PO 650 mg Q6H PRN Administration Fever 101F Albuterol/Ipratropium 3 ml 07/03/18 14:00 07/29/18 08:00 Duoneb 3 Mg/0.5 Mg (3 Ml) Ud IH 3 ml [id number] SEEMA Administration Albuterol/Ipratropium 3 ml 07/03/18 11:04 07/11/18 23:55 Duoneb 3 Mg/0.5 Mg (3 Ml) Ud IH 3 ml Q2H PRN Administration Shortness of Breath Amino Acid Protein 15 gm 07/29/18 11:30 Prostat 15 G Packet GT BID SEEMA Diltiazem HCl 60 mg 07/17/18 14:00 07/29/18 10:08 Cardizem PO 60 mg TID SEEMA Administration Propofol 1,000 mg in 100 mls @ 2.545 mls/hr 07/22/18 08:29 07/29/18 08:31 Diprivan IV 15 mcg/kg/min .Q24H PRN 7.634 mls/hr TITRATE PER MD ORDER Administration Protocol 5 MCG/KG/MIN Meropenem/Sodium Chloride 500 mg in 50 mls @ 100 mls/hr 07/22/18 18:15 07/29/18 10:45 Merrem Iv 500 Mg/Ns 50 Ml IVPB 07/29/18 18:16 100 mls/hr Q12 SEEMA Administration Protocol Insulin Human Regular 100 100 mls @ 15 mls/hr 07/24/18 08:24 07/26/18 08:35 units/ Sodium Chloride IV 2 units/hr .[id number] PRN 2 mls/hr TITRATE PER MD ORDER Titration Protocol 15 UNITS/HR Dobutamine HCl/Dextrose 500 mg in 250 mls @ 12.791 mls/hr 07/27/18 12:50 07/29/18 09:08 Dobutamine/Dextrose 5% 500mg/250ml IV 5 mcg/kg/min .[id number] PRN 12.791 mls/hr TITRATE PER PROTOCOL Titration Protocol 5 MCG/KG/MIN Insulin Detemir 15 unit 07/28/18 08:58 Levemir SC HS [facility] Insulin Human Lispro 0 units 07/26/18 10:00 07/29/18 11:38 Humalog High SC 2 units Q4H [facility] Administration Protocol - Patient Studies Lab Studies: Lab Studies 07/29/18 07/29/18 07/29/18 Range/Units 11:30 08:00 05:50 WBC (4.5-11.0) 10^3/uL RBC (3.5-6.1) 10^6/uL Hgb (14.0-18.0) g/dL Hct (42.0-52.0) % MCV (80.0-105.0) fl MCH (25.0-35.0) pg MCHC (31.0-37.0) g/dl RDW (11.5-14.5) % Plt Count (120.0-450.0) 10^3/uL Manual Plt Count 42 L* (120-450) K/mm3 Gran % (50.0-68.0) % Lymph % (Auto) (22.0-35.0) % [place] % (Auto) (1.0-6.0) % Eos % (Auto) (1.5-5.0) % Baso % (Auto) (0.0-3.0) % Gran # (1.4-6.5) Lymph # (Auto) (1.2-3.4) [place] # (Auto) (0.1-0.6) Eos # (Auto) (0.0-0.7) Baso # (Auto) (0.0-2.0) K/mm3 Neutrophils % (Manual) (50.0-70.0) % Lymphocytes % (Manual) (22.0-35.0) % Monocytes % (Manual) (1.0-6.0) % Eosinophils % (Manual) (0.0-3.0) % pCO2 30 L (35-45) mm/Hg pO2 173.0 H (80-100) mm/Hg HCO3 18.6 L (21-28) mmol/L ABG pH 7.40 (7.35-7.45) ABG Total CO2 19.5 L (22-28) mmol.L ABG O2 Saturation 99.5 H (95-98) % ABG O2 Content 11.6 L (15-23) ML/dl ABG Base Excess -5.5 L (-2.0-3.0) mmol/L ABG Hemoglobin 8.2 L (11.7-17.4) g/dL ABG Carboxyhemoglobin 1.8 H (0.5-1.5) % POC ABG HHb (Measured) 0.5 (0-5) % ABG Methemoglobin 1.0 (0.0-3.0) % ABG O2 Capacity 11.7 L (16-24) mL/dl Hgb O2 Saturation 96.7 (95.0-98.0) % FiO2 40.0 % Sodium (132-148) mmol/L Potassium (3.6-5.0) mmol/L Chloride (98-107) mmol/L Carbon Dioxide (21-33) mmol/L Anion Gap (10-20) BUN (7-21) mg/dL Creatinine (0.8-1.5) mg/dl Est GFR ( Amer) Est GFR (Non-Af Amer) POC Glucose (mg/dL) 158 H (65-110) mg/dL Random Glucose (70-110) mg/dL Calcium (8.4-10.5) mg/dL Total Bilirubin (0.2-1.3) mg/dL AST (17-59) U/L ALT (7-56) U/L Alkaline Phosphatase (38-126) U/L Total Protein (5.8-8.3) g/dL Albumin (3.0-4.8) g/dL Globulin gm/dL Albumin/Globulin Ratio (1.1-1.8) Crossmatch 07/29/18 07/29/18 07/29/18 Range/Units 05:47 05:15 05:15 WBC 9.3 (4.5-11.0) 10^3/uL RBC 2.69 L (3.5-6.1) 10^6/uL Hgb 7.5 L (14.0-18.0) g/dL Hct 23.4 L (42.0-52.0) % MCV 87.0 (80.0-105.0) fl MCH 27.9 (25.0-35.0) pg MCHC 32.1 (31.0-37.0) g/dl RDW 17.3 H (11.5-14.5) % Plt Count 16 L* (120.0-450.0) 10^3/uL Manual Plt Count (120-450) K/mm3 Gran % 91.0 H (50.0-68.0) % Lymph % (Auto) 4.6 L (22.0-35.0) % [place] % (Auto) 2.2 (1.0-6.0) % Eos % (Auto) 2.2 (1.5-5.0) % Baso % (Auto) 0.0 (0.0-3.0) % Gran # 8.43 H (1.4-6.5) Lymph # (Auto) 0.4 L (1.2-3.4) [place] # (Auto) 0.2 (0.1-0.6) Eos # (Auto) 0.2 (0.0-0.7) Baso # (Auto) 0.00 (0.0-2.0) K/mm3 Neutrophils % (Manual) 90 H (50.0-70.0) % Lymphocytes % (Manual) 3 L (22.0-35.0) % Monocytes % (Manual) 2 (1.0-6.0) % Eosinophils % (Manual) 5 H (0.0-3.0) % pCO2 (35-45) mm/Hg pO2 (80-100) mm/Hg HCO3 (21-28) mmol/L ABG pH (7.35-7.45) ABG Total CO2 (22-28) mmol.L ABG O2 Saturation (95-98) % ABG O2 Content (15-23) ML/dl ABG Base Excess (-2.0-3.0) mmol/L ABG Hemoglobin (11.7-17.4) g/dL ABG Carboxyhemoglobin (0.5-1.5) % POC ABG HHb (Measured) (0-5) % ABG Methemoglobin (0.0-3.0) % ABG O2 Capacity (16-24) mL/dl Hgb O2 Saturation (95.0-98.0) % FiO2 % Sodium 142 (132-148) mmol/L Potassium 4.8 (3.6-5.0) mmol/L Chloride 117 H (98-107) mmol/L Carbon Dioxide 22 (21-33) mmol/L Anion Gap 8 L (10-20) BUN 54 H (7-21) mg/dL Creatinine 1.3 (0.8-1.5) mg/dl Est GFR ( Amer) > 60 Est GFR (Non-Af Amer) 56 POC Glucose (mg/dL) 106 (65-110) mg/dL Random Glucose 109 (70-110) mg/dL Calcium 7.7 L (8.4-10.5) mg/dL Total Bilirubin 0.5 (0.2-1.3) mg/dL AST 59 (17-59) U/L ALT 65 H (7-56) U/L Alkaline Phosphatase 108 (38-126) U/L Total Protein 5.9 (5.8-8.3) g/dL Albumin 2.1 L (3.0-4.8) g/dL Globulin 3.7 gm/dL Albumin/Globulin Ratio 0.6 L (1.1-1.8) Crossmatch 07/29/18 07/28/18 07/28/18 Range/Units 01:51 21:53 17:49 WBC (4.5-11.0) 10^3/uL RBC (3.5-6.1) 10^6/uL Hgb (14.0-18.0) g/dL Hct (42.0-52.0) % MCV (80.0-105.0) fl MCH (25.0-35.0) pg MCHC (31.0-37.0) g/dl RDW (11.5-14.5) % Plt Count (120.0-450.0) 10^3/uL Manual Plt Count (120-450) K/mm3 Gran % (50.0-68.0) % Lymph % (Auto) (22.0-35.0) % [place] % (Auto) (1.0-6.0) % Eos % (Auto) (1.5-5.0) % Baso % (Auto) (0.0-3.0) % Gran # (1.4-6.5) Lymph # (Auto) (1.2-3.4) [place] # (Auto) (0.1-0.6) Eos # (Auto) (0.0-0.7) Baso # (Auto) (0.0-2.0) K/mm3 Neutrophils % (Manual) (50.0-70.0) % Lymphocytes % (Manual) (22.0-35.0) % Monocytes % (Manual) (1.0-6.0) % Eosinophils % (Manual) (0.0-3.0) % pCO2 (35-45) mm/Hg pO2 (80-100) mm/Hg HCO3 (21-28) mmol/L ABG pH (7.35-7.45) ABG Total CO2 (22-28) mmol.L ABG O2 Saturation (95-98) % ABG O2 Content (15-23) ML/dl ABG Base Excess (-2.0-3.0) mmol/L ABG Hemoglobin (11.7-17.4) g/dL ABG Carboxyhemoglobin (0.5-1.5) % POC ABG HHb (Measured) (0-5) % ABG Methemoglobin (0.0-3.0) % ABG O2 Capacity (16-24) mL/dl Hgb O2 Saturation (95.0-98.0) % FiO2 % Sodium (132-148) mmol/L Potassium (3.6-5.0) mmol/L Chloride (98-107) mmol/L Carbon Dioxide (21-33) mmol/L Anion Gap (10-20) BUN (7-21) mg/dL Creatinine (0.8-1.5) mg/dl Est GFR ( Amer) Est GFR (Non-Af Amer) POC Glucose (mg/dL) 96 76 187 H (65-110) mg/dL Random Glucose (70-110) mg/dL Calcium (8.4-10.5) mg/dL Total Bilirubin (0.2-1.3) mg/dL AST (17-59) U/L ALT (7-56) U/L Alkaline Phosphatase (38-126) U/L Total Protein (5.8-8.3) g/dL Albumin (3.0-4.8) g/dL Globulin gm/dL Albumin/Globulin Ratio (1.1-1.8) Crossmatch 07/28/18 07/28/18 Range/Units 14:02 08:55 WBC (4.5-11.0) 10^3/uL RBC (3.5-6.1) 10^6/uL Hgb (14.0-18.0) g/dL Hct (42.0-52.0) % MCV (80.0-105.0) fl MCH (25.0-35.0) pg MCHC (31.0-37.0) g/dl RDW (11.5-14.5) % Plt Count (120.0-450.0) 10^3/uL Manual Plt Count (120-450) K/mm3 Gran % (50.0-68.0) % Lymph % (Auto) (22.0-35.0) % [place] % (Auto) (1.0-6.0) % Eos % (Auto) (1.5-5.0) % Baso % (Auto) (0.0-3.0) % Gran # (1.4-6.5) Lymph # (Auto) (1.2-3.4) [place] # (Auto) (0.1-0.6) Eos # (Auto) (0.0-0.7) Baso # (Auto) (0.0-2.0) K/mm3 Neutrophils % (Manual) (50.0-70.0) % Lymphocytes % (Manual) (22.0-35.0) % Monocytes % (Manual) (1.0-6.0) % Eosinophils % (Manual) (0.0-3.0) % pCO2 (35-45) mm/Hg pO2 (80-100) mm/Hg HCO3 (21-28) mmol/L ABG pH (7.35-7.45) ABG Total CO2 (22-28) mmol.L ABG O2 Saturation (95-98) % ABG O2 Content (15-23) ML/dl ABG Base Excess (-2.0-3.0) mmol/L ABG Hemoglobin (11.7-17.4) g/dL ABG Carboxyhemoglobin (0.5-1.5) % POC ABG HHb (Measured) (0-5) % ABG Methemoglobin (0.0-3.0) % ABG O2 Capacity (16-24) mL/dl Hgb O2 Saturation (95.0-98.0) % FiO2 % Sodium (132-148) mmol/L Potassium (3.6-5.0) mmol/L Chloride (98-107) mmol/L Carbon Dioxide (21-33) mmol/L Anion Gap (10-20) BUN (7-21) mg/dL Creatinine (0.8-1.5) mg/dl Est GFR ( Amer) Est GFR (Non-Af Amer) POC Glucose (mg/dL) 295 H (65-110) mg/dL Random Glucose (70-110) mg/dL Calcium (8.4-10.5) mg/dL Total Bilirubin (0.2-1.3) mg/dL AST (17-59) U/L ALT (7-56) U/L Alkaline Phosphatase (38-126) U/L Total Protein (5.8-8.3) g/dL Albumin (3.0-4.8) g/dL Globulin gm/dL Albumin/Globulin Ratio (1.1-1.8) Crossmatch See Detail Laboratory Results - last 24 hr 07/28/18 07/28/18 07/28/18 08:55 14:02 17:49 WBC RBC Hgb Hct MCV MCH MCHC RDW Plt Count Manual Plt Count Gran % Lymph % (Auto) [place] % (Auto) Eos % (Auto) Baso % (Auto) Gran # Lymph # (Auto) [place] # (Auto) Eos # (Auto) Baso # (Auto) Neutrophils % (Manual) Lymphocytes % (Manual) Monocytes % (Manual) Eosinophils % (Manual) pCO2 pO2 HCO3 ABG pH ABG Total CO2 ABG O2 Saturation ABG O2 Content ABG Base Excess ABG Hemoglobin ABG Carboxyhemoglobin POC ABG HHb (Measured) ABG Methemoglobin ABG O2 Capacity Hgb O2 Saturation FiO2 Sodium Potassium Chloride Carbon Dioxide Anion Gap BUN Creatinine Est GFR ( Amer) Est GFR (Non-Af Amer) POC Glucose (mg/dL) 295 H 187 H Random Glucose Calcium Total Bilirubin AST ALT Alkaline Phosphatase Total Protein Albumin Globulin Albumin/Globulin Ratio Crossmatch See Detail 07/28/18 07/29/18 07/29/18 21:53 01:51 05:15 WBC 9.3 RBC 2.69 L Hgb 7.5 L Hct 23.4 L MCV 87.0 MCH 27.9 MCHC 32.1 RDW 17.3 H Plt Count 16 L* Manual Plt Count Gran % 91.0 H Lymph % (Auto) 4.6 L [place] % (Auto) 2.2 Eos % (Auto) 2.2 Baso % (Auto) 0.0 Gran # 8.43 H Lymph # (Auto) 0.4 L [place] # (Auto) 0.2 Eos # (Auto) 0.2 Baso # (Auto) 0.00 Neutrophils % (Manual) 90 H Lymphocytes % (Manual) 3 L Monocytes % (Manual) 2 Eosinophils % (Manual) 5 H pCO2 pO2 HCO3 ABG pH ABG Total CO2 ABG O2 Saturation ABG O2 Content ABG Base Excess ABG Hemoglobin ABG Carboxyhemoglobin POC ABG HHb (Measured) ABG Methemoglobin ABG O2 Capacity Hgb O2 Saturation FiO2 Sodium Potassium Chloride Carbon Dioxide Anion Gap BUN Creatinine Est GFR ( Amer) Est GFR (Non-Af Amer) POC Glucose (mg/dL) 76 96 Random Glucose Calcium Total Bilirubin AST ALT Alkaline Phosphatase Total Protein Albumin Globulin Albumin/Globulin Ratio Crossmatch 07/29/18 07/29/18 07/29/18 05:15 05:47 05:50 WBC RBC Hgb Hct MCV MCH MCHC RDW Plt Count Manual Plt Count Gran % Lymph % (Auto) [place] % (Auto) Eos % (Auto) Baso % (Auto) Gran # Lymph # (Auto) [place] # (Auto) Eos # (Auto) Baso # (Auto) Neutrophils % (Manual) Lymphocytes % (Manual) Monocytes % (Manual) Eosinophils % (Manual) pCO2 30 L pO2 173.0 H HCO3 18.6 L ABG pH 7.40 ABG Total CO2 19.5 L ABG O2 Saturation 99.5 H ABG O2 Content 11.6 L ABG Base Excess -5.5 L ABG Hemoglobin 8.2 L ABG Carboxyhemoglobin 1.8 H POC ABG HHb (Measured) 0.5 ABG Methemoglobin 1.0 ABG O2 Capacity 11.7 L Hgb O2 Saturation 96.7 FiO2 40.0 Sodium 142 Potassium 4.8 Chloride 117 H Carbon Dioxide 22 Anion Gap 8 L BUN 54 H Creatinine 1.3 Est GFR ( Amer) > 60 Est GFR (Non-Af Amer) 56 POC Glucose (mg/dL) 106 Random Glucose 109 Calcium 7.7 L Total Bilirubin 0.5 AST 59 ALT 65 H Alkaline Phosphatase 108 Total Protein 5.9 Albumin 2.1 L Globulin 3.7 Albumin/Globulin Ratio 0.6 L Crossmatch 07/29/18 07/29/18 08:00 11:30 WBC RBC Hgb Hct MCV MCH MCHC RDW Plt Count Manual Plt Count 42 L* Gran % Lymph % (Auto) [place] % (Auto) Eos % (Auto) Baso % (Auto) Gran # Lymph # (Auto) [place] # (Auto) Eos # (Auto) Baso # (Auto) Neutrophils % (Manual) Lymphocytes % (Manual) Monocytes % (Manual) Eosinophils % (Manual) pCO2 pO2 HCO3 ABG pH ABG Total CO2 ABG O2 Saturation ABG O2 Content ABG Base Excess ABG Hemoglobin ABG Carboxyhemoglobin POC ABG HHb (Measured) ABG Methemoglobin ABG O2 Capacity Hgb O2 Saturation FiO2 Sodium Potassium Chloride Carbon Dioxide Anion Gap BUN Creatinine Est GFR ( Amer) Est GFR (Non-Af Amer) POC Glucose (mg/dL) 158 H Random Glucose Calcium Total Bilirubin AST ALT Alkaline Phosphatase Total Protein Albumin Globulin Albumin/Globulin Ratio Crossmatch Radiology Impressions: Radiology Impressions Chest X-Ray 07/29/18 06:00 IMPRESSION: No active disease. Critical Care Progress Note - Nutrition Nutrition: Nutrition Category Date Time Status NPO Diet [DIET] Diets 07/06/18 Breakfast Ordered Attending/Attestation - Attestation I have personally seen and examined this patient.: Yes I have fully participated in the care of the patient.: Yes I have reviewed all pertinent clinical information: Yes Notes (Text): 07/29/18 11:46 62 yo male with VDRF due to CIP/TORIN. will continue with conservative fluid and 02 management, daily weaning trials and sedation vacation, HOB>35, euvolemia, euglycemia and 02 sat>90, oral hygiene, dvt/gi prophyalxis ccm time 40 min
--- NOTE | 2018-07-29 11:13 | RAD ---
Date of service: 07/29/2018 HISTORY: f/u COMPARISON: 07/28/2018 FINDINGS: LUNGS: No active pulmonary disease. PLEURA: No significant pleural effusion identified, no pneumothorax apparent. CARDIOVASCULAR: No aortic atherosclerotic calcification present. Normal cardiac size. No pulmonary vascular congestion. OSSEOUS STRUCTURES: No significant abnormalities. VISUALIZED UPPER ABDOMEN: Normal. OTHER FINDINGS: Endotracheal tube and left PICC line in satisfactory position. IMPRESSION: No active disease.
--- NOTE | 2018-07-29 11:58 | CP.PCM.PN ---
Subjective - Date & Time of Evaluation Date of Evaluation: 07/29/18 Time of Evaluation: 10:20 - Subjective Subjective: Now developing low grade fevers, still intubated, sedated, still with flaccid extremities. Objective - Vital Signs/Intake and Output Vital Signs (last 24 hours): Temp Pulse Resp BP Pulse Ox 100 F H 88 24 134/60 100 07/28/18 11:41 07/28/18 11:41 07/28/18 11:41 07/28/18 11:41 07/28/18 07:30 Intake and Output: 07/28/18 07/28/18 06:59 18:59 Intake Total 1690 362.0 Output Total 950 Balance 740 362.0 - Medications Medications: Current Medications Acetaminophen (Tylenol 650mg/20.3ml Solution Ud) 650 mg PO Q6H PRN PRN Reason: Fever 101F Last Admin: 07/20/18 13:20 Dose: 650 mg Albuterol/Ipratropium (Duoneb 3 Mg/0.5 Mg (3 Ml) Ud) 3 ml IH [id number] JHON Last Admin: 07/28/18 07:38 Dose: 3 ml Albuterol/Ipratropium (Duoneb 3 Mg/0.5 Mg (3 Ml) Ud) 3 ml IH Q2H PRN PRN Reason: Shortness of Breath Last Admin: 07/11/18 23:55 Dose: 3 ml Digoxin (Lanoxin) 0.125 mg IVP 1400 JHON Last Admin: 07/27/18 14:24 Dose: 0.125 mg Diltiazem HCl (Cardizem) 60 mg PO TID [facility] Last Admin: 07/28/18 09:03 Dose: 60 mg Famotidine (Pepcid) 20 mg IVP Q12H JHON Last Admin: 07/28/18 10:37 Dose: 20 mg Propofol (Diprivan) 1,000 mg in 100 mls @ 2.545 mls/hr IV .Q24H PRN; Protocol PRN Reason: TITRATE PER MD ORDER Last Titration: 07/28/18 09:47 Dose: 10 mcg/kg/min, 5.089 mls/hr Meropenem/Sodium Chloride (Merrem Iv 500 Mg/Ns 50 Ml) 500 mg in 50 mls @ 100 mls/hr IVPB Q12 JHON; Protocol Stop: 07/29/18 18:16 Last Admin: 07/28/18 09:07 Dose: 100 mls/hr Insulin Human Regular 100 (units/ Sodium Chloride) 100 mls @ 15 mls/hr IV .Q6H40M PRN; Protocol PRN Reason: TITRATE PER MD ORDER Last Titration: 07/26/18 08:35 Dose: 2 units/hr, 2 mls/hr Dobutamine HCl/Dextrose (Dobutamine/Dextrose 5% 500mg/250ml) 500 mg in 250 mls @ 12.791 mls/hr IV .[id number] PRN; Protocol PRN Reason: TITRATE PER PROTOCOL Last Admin: 07/28/18 09:40 Dose: 5 mcg/kg/min, 12.791 mls/hr Insulin Detemir (Levemir) 15 unit SC HS JHON Insulin Human Lispro (Humalog High) 0 units SC Q4H JHON; Protocol Last Admin: 07/28/18 10:35 Dose: 12 units Vitamin A (Vitamin A&D) 1 applic TP Q8 PRN PRN Reason: Dry mouth - Labs Labs: 07/28/18 05:40 07/28/18 05:40 PT 12.5 SECONDS (9.4-12.5) 07/24/18 06:10 INR 1.09 07/24/18 06:10 APTT 18.7 Seconds (25.1-36.5) L 07/06/18 11:54 - Constitutional Appears: Chronically Ill - Head Exam Head Exam: NORMAL INSPECTION - ENT Exam ENT Exam: Mucous Membranes Moist - Neck Exam Neck Exam: absent: Lymphadenopathy, Meningismus - Respiratory Exam Respiratory Exam: Decreased Breath Sounds - Cardiovascular Exam Cardiovascular Exam: +S1, +S2 - GI/Abdominal Exam GI & Abdominal Exam: Soft. absent: Tenderness Assessment and Plan - Assessment and Plan (Free Text) Plan: Assessment new onset SIRS with VDRF, consider new onset sepsis due to right lower lobe aspi ration hospital-acquired pneumonia; new onset fever R/O bacteremia from PICC line thrombocytopenia probably ITP flaccid weakness of extremities consider critical illness polyneuropathy and myopathy S/P Severe sepsis with hypoxic respiratory failure and S/P ventilator-dependent respiratory failure and acute on chronic renal failure as well as thrombocytopenia due to severe right sided community-acquired pneumonia S/P viral infection with Influenza A in this patient with CVA significant and active smoking history COPD HTN DM peripheral vascular disease history of right elbow septic arthritis history of right upper extremity cellulitis Plan on renally-adjusted Merrem day 8; sputum cx is now showing Stenotrophomonas; PCT remains low; reviewed CXR; hesitant to use Quinolones because QTc is 487 ms which is prolonged will repeat blood cx and will give a dose of IV Daptomycin discussed with Dr. Burr - probable has critically ill- related myopathy and neuropathy - discussed with Dr. Martinez as well - one rare possibility is Guillain Judsonia Syndrome - as per Dr. Mcdaniels, patient is to be given IVIG - as per Neuro, it is still more likely critical-illness myopathy and neuropathy and less likely GBS, but regardless, IVIG may be beneficial for both and has now bee n given IVIG again patient continues to be in critical condition overall prognosis is worsening
[2018-07-29] MEDS ORDERED: DAPTOmycin 500 mg Inj (Cubicin) IV ONE (12:00)
[2018-07-29] MEDS ORDERED: DAPTOmycin 500 MG in Sodium Chloride 0.9% 100 ML IV ONE (12:15)
--- NOTE | 2018-07-29 12:47 | PN ---
SUBJECTIVE: The patient was seen and examined at bedside in the ICU. No acute events overnight. He remains intubated, sedated and clinically unchanged. OBJECTIVE: VITAL SIGNS: Temperature 100.4, pulse 82, blood pressure 158/71, respiratory rate 20, oxygen saturation 100% on 40% FIO2. GENERAL: Intubated and sedated. HEENT: PERRL. ETT in place. OGT in place. NECK: No JVD. LUNGS: Coarse anterior breath sounds with few scattered rhonchi. CARDIOVASCULAR: Regular rate and rhythm. Normal S1, S2. ABDOMEN: Normoactive bowel sounds. Soft, nondistended. EXTREMITIES: Trace pedal edema. NEUROLOGIC: Intubated and sedated. LABORATORY DATA: WBC 9.3 with 91% neutrophils, hemoglobin 7.5, hematocrit 23, platelets 16. Sodium 142, potassium 4.8, chloride 117, bicarb 22, BUN 8, creatinine 5.4, glucose 109. ASSESSMENT: The patient is a 62-year-old man with multiple medical comorbidities who was admitted to the ICU s/p intubation for acute hypoxic respiratory failure and severe sepsis secondary to community-acquired pneumonia who is now s/p reintubation for hypercapnic respiratory failure likely secondary to right lower lobe aspiration pneumonia. PLAN: 1. Ventilator-dependent respiratory failure, likely secondary to aspiration pneumonia. Input from Dr. Burr and ICU team noted. Continue with care as per ICU team. The patient will likely require placement of tracheostomy. 2. Severe sepsis secondary to aspiration pneumonia, resolving. Input from Dr. Lucero noted. The patient remains afebrile and with negative blood cultures. Continue with antimicrobials as per Dr. Lucero. 3. 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 Input from Dr. Mcdaniels noted. The patient is s/p a course of IVIG. Continue with aggressive PT. Arrangements are being made for transfer to LTAC. 4. Acute kidney injury, likely secondary to ATN, resolving. Input from Dr. Sullivan noted and renal parameters continue to improve. Continue to monitor strict I&O's, renally dose medications and avoid nephrotoxins. 5. Thrombocytopenia secondary to ITP. Input from Dr. Estevez noted. The patient is s/p a course of IVIG. Continue with care as per Dr. Estevez. 6. NSTEMI. Input from Dr. Saxena noted. The patient is not a candidate for cardiac cath given his clinical condition. 7. Paroxysmal atrial fibrillation. Continue Diltiazem. 8. Acute systolic heart failure, resolved. Continue care as per Dr. Saxena. 9. Transaminitis, resolved. 10. Normocytic anemia. Continue to monitor CBC and transfuse as needed. 11. Type 2 diabetes mellitus. Continue with current insulin regimen. 12. Hypertension. 13. Pseudogout. 14. Anxiety disorder. 15. GERD. 16. Prophylaxis. Continue Protonix for GI prophylaxis and SCDs for DVT prophylaxis. CODE STATUS: Full code. Yassine Martinez MD MTDD
[2018-07-29] MEDS: Prostat 15 g packet GT SCH (13:00)
--- NOTE | 2018-07-29 16:42 | PN ---
DATE: 07/29/2018 SUBJECTIVE: The patient is seen lying in bed. He remains on mechanical ventilation. He remains on sedation. He is receiving tube feeding. He is unresponsive. PHYSICAL EXAMINATION: GENERAL: Elderly male lying in bed in the ICU. VITAL SIGNS: Blood pressure 135/74, heart rate 101, respiratory rate 24-28, temperature 100.8, T-max is 100.8. HEENT: Normocephalic, atraumatic, positive pallor. NECK: Supple, no JVD. LUNGS: Bilateral equal entry, bilateral equal expansion, no rales. CARDIAC: S1, S2, regular rate and rhythm, no murmur, no rub. ABDOMEN: Soft, nondistended, nontender, bowel sounds present. EXTREMITIES: No lower extremity edema, chronic stasis changes. INTAKE AND OUTPUT: 3515/2315. LABORATORY DATA: WBC 9.3, hemoglobin 7.5, hematocrit 23, platelets 16. Manual count is 42. Sodium 142, potassium 4.8, chloride , CO2 of 22, BUN 54, creatinine 1.3, glucose 109, calcium 7.7. AST 59, ALT 65, albumin 2.1, corrected calcium is 9.1. PH 7.4, pCO2 30, pO2 173. Chest x-ray, no active disease. CURRENT MEDICATIONS: Cardizem 60 t.i.d., Diprivan, dobutamine 5 mcg per kilogram per minute, insulin Levemir, Merrem 500 every 12 hours. ASSESSMENT AND PLAN: 1. Multiorgan dysfunction syndrome, respiratory failure, critical illness polyneuropathy. 2. Severe thrombocytopenia, counts improving. 3. Severe anemia, status post 1 unit of PRBC yesterday. 4. Hypernatremia, much improved. 5. Acute kidney injury, resolved, did need dialysis. 6. Non insulin dependent diabetes mellitus, sugar control much better. 7. Severe cardiomyopathy, decreased ejection fraction, atrial fibrillation. 8. Severe malnutrition. 9.. Low grade fevers. PLAN: 1. Continue free water via NG tube. 2. Increase tube feedings as tolerated. 3. Pro-Stat. 4. Continue Cardizem for rate control. 5. Continue respiratory management. 6. No indication for dialysis. 7. Continue fingerstick and insulin coverage. 8. Discharge planning, transfer to LTAC. 9. Case discussed with ICU residents at bedside, case discussed with ICU nursing staff. More than 35 minutes spent in the care of this critically ill patient. Bobbi Sullivan MD
--- NOTE | 2018-07-29 17:56 | PN ---
DATE: 07/29/2018 SUBJECTIVE: The patient remains on a ventilator. PHYSICAL EXAMINATION: VITAL SIGNS: Blood pressure 135/74, the heart rate is in the 90s. NECK: Negative JVD. LUNGS: Decreased breath sounds. HEART: S1 and S2. EXTREMITIES: Without edema. LABORATORY DATA: Platelet count; manual count is 42, hemoglobin is 7.5, BUN and creatinine is 54 and 1.3. IMPRESSION: 1. Respiratory failure. 2. Dilated cardiomyopathy. 3. Congestive heart failure. 4. Coronary artery disease. 5. Thrombocytopenia. 6. Anemia. Given these findings, the patient will likely need a tracheostomy if he cannot get off the respirator in the near future. We will continue his IV dobutamine. Benjamin Saxena MD
[2018-07-29] MEDS: Acetaminophen 650mg/20.3ml solution UD PO PRN (18:38)
[2018-07-30 03:59] VITALS: O2SAT 100
[2018-07-30 05:36] LABS: ARTERIAL BLOOD GAS HCO3 22.4 mmol/L (21-28); ARTERIAL BLOOD GAS HEMOGLOBIN 10.7 g/dL (11.7-17.4); ARTERIAL BLOOD GAS O2 CAPACITY 14.9 mL/dl (16-24); ARTERIAL BLOOD GAS O2 CONTENT 14.9 ML/dl (15-23); ARTERIAL BLOOD GAS O2 SAT 99.8 % (95-98); ARTERIAL BLOOD GAS PCO2 37 mm/Hg (35-45); ARTERIAL BLOOD GAS PH 7.39 (7.35-7.45); ARTERIAL BLOOD GAS TCO2 23.5 mmol.L (22-28)
[2018-07-30] MEDS: Insulin Lispro (HUMAlog) HIGH Coverage SC SCH ×2 (06:07→11:50)
[2018-07-30 06:53] LABS: ALB/GLOB RATIO 0.6 (1.1-1.8); ALBUMIN 2.3 g/dL (3.0-4.8); ALT/SGPT 65 U/L (7-56); AST/SGOT 67 U/L (17-59); BLOOD UREA NITROGEN 56 mg/dL (7-21); CALCIUM 7.6 mg/dL (8.4-10.5); GFR NON-AFRICAN AMERICAN 56
[2018-07-30 06:54] LABS: EOS # 0.1 (0.0-0.7); EOS % 1.3 % (1.5-5.0); GRAN % 91.3 % (50.0-68.0); HEMOGLOBIN 8.4 g/dL (14.0-18.0); LYMPH # 0.3 (1.2-3.4); LYMPH % 3.2 % (22.0-35.0); MEAN CELL VOLUME 88.6 fl (80.0-105.0); MEAN CORPUSCULAR HEMOGLOBIN 27.3 pg (25.0-35.0); MEAN CORPUSCULAR HGB CONC 30.8 g/dl (31.0-37.0); MONO # 0.4 (0.1-0.6); MONO % 4.2 % (1.0-6.0); RBC 3.08 10^6/uL (3.5-6.1); RED CELL DISTRIBUTION WIDTH 17.3 % (11.5-14.5)
[2018-07-30 07:03] LABS: PLATELET COUNT 22 10^3/uL (120.0-450.0)
[2018-07-30] MEDS: Albuterol-Ipratrop 3 mg / 0.5 (3 ml) UD IH SCH ×2 (07:07→13:26)
[2018-07-30 07:42] VITALS: RESP 12
--- NOTE | 2018-07-30 08:49 | RAD ---
Date of service: 07/30/2018 HISTORY: f/u COMPARISON: 07/29/2018 FINDINGS: LUNGS: No active pulmonary disease. PLEURA: No significant pleural effusion identified, no pneumothorax apparent. CARDIOVASCULAR: No aortic atherosclerotic calcification present. Normal cardiac size. No pulmonary vascular congestion. OSSEOUS STRUCTURES: No significant abnormalities. VISUALIZED UPPER ABDOMEN: Normal. OTHER FINDINGS: Endotracheal and nasogastric tubes unchanged. IMPRESSION: No active disease.
--- NOTE | 2018-07-30 09:49 | CP.CCUPN ---
<Dannie Yeh - Last Filed: 07/30/18 12:07> CCU Subjective - Physician Review Subjective (Free Text): Dannie Yeh PGY1 Critical Care Progress Note Patient seen and examined at bedside this morning. No acute events reported overnight. Patient continues to be intubated and sedated. 12 point ROS limited due to patient status. Will wean off sedation today, started on CPAP. Pending LTAC placement today. CCU Objective - Vital Signs / Intake & Output Vital Signs (Last 4 hours): Vital Signs Temp Pulse Resp BP Pulse Ox 07/30/18 09:00 98.1 F 78 147/73 100 07/30/18 08:00 97.3 F L 84 154/77 H 100 07/30/18 07:42 12 100 07/30/18 07:00 96.8 F L 85 151/78 H 100 07/30/18 06:00 96.8 F L 98 H 160/77 H 100 07/30/18 05:47 89 07/30/18 05:39 97.0 F L 97 H 162/86 H 100 Intake and Output (Last 8hrs): Intake & Output 07/29/18 07/30/18 07/30/18 22:59 06:59 14:59 Intake Total 2034 184 15 Output Total 2200 1200 Balance -166 -1016 15 Weight 191 lb Intake: IV 494 184 15 abx 150 dobutamine 153 120 propofol 91 44 Tube Feeding 540 Other 1000 Output: Urine 2200 1200 Urethral (Oliveros) 2200 1200 Stool 0 Urine/Stool Mix 0 Emesis 0 Oral Regurgitation 0 Other 0 Other: # Bowel Movements 0 1 - Physical Exam Head: Positive for: Atraumatic, Normocephalic Pupils: Positive for: PERRL Extroacular Muscles: Positive for: EOMI Conjunctiva: Positive for: Normal Mouth: Positive for: Dry, Drooling Pharnyx: Positive for: Other (intubated ) Respiratory/Chest: Positive for: Clear to Auscultation, Decreased Breath Sounds. Negative for: Respiratory Distress, Wheezes, Tachypneic Cardiovascular: Positive for: Normal S1, S2. Negative for: Murmurs Abdomen: Negative for: Tenderness, Peritoneal Signs, Guarding Back: Positive for: Normal Inspection Upper Extremity: Positive for: Normal Inspection, Other (flaccid). Negative for: Cyanosis, Edema Lower Extremity: Positive for: Edema (1+ pitting edema noted to right lower extremity; chronic diabetic ulcer noted to anterior anderson of left lower extremity ), Other (flaccid) Neurological: Positive for: Other (alert, tracks with eyes). Negative for: GCS= 15, CN II-XII Intact, Speech Normal Skin: Positive for: Warm, Dry, Normal Color, Other (Ecchymotic in R antecubital region, stable; ecchymoses at different levels of healing throughout extremities). Negative for: Rashes Psychiatric: Positive for: Alert. Negative for: Oriented x 3, Normal Insight - Medications Active Medications: Active Medications Generic Name Dose Route Start Last Admin Trade Name Freq PRN Reason Stop Dose Admin Acetaminophen 650 mg 07/08/18 18:18 07/29/18 18:38 Tylenol 650mg/20.3ml Solution Ud PO 650 mg Q6H PRN Administration Fever 101F Albuterol/Ipratropium 3 ml 07/03/18 14:00 07/30/18 07:07 Duoneb 3 Mg/0.5 Mg (3 Ml) Ud IH 3 ml [id number] SEEMA Administration Albuterol/Ipratropium 3 ml 07/03/18 11:04 07/11/18 23:55 Duoneb 3 Mg/0.5 Mg (3 Ml) Ud IH 3 ml Q2H PRN Administration Shortness of Breath Amino Acid Protein 15 gm 07/29/18 11:30 07/29/18 13:00 Prostat 15 G Packet GT 15 gm BID SEEMA Administration Diltiazem HCl 60 mg 07/17/18 14:00 07/29/18 18:37 Cardizem PO 60 mg TID SEEMA Administration Propofol 1,000 mg in 100 mls @ 2.545 mls/hr 07/22/18 08:29 07/30/18 07:30 Diprivan IV 0 mcg/kg/min .Q24H PRN 0 mls/hr TITRATE PER MD ORDER Titration Protocol 5 MCG/KG/MIN Insulin Human Regular 100 100 mls @ 15 mls/hr 07/24/18 08:24 07/26/18 08:35 units/ Sodium Chloride IV 2 units/hr .[id number] PRN 2 mls/hr TITRATE PER MD ORDER Titration Protocol 15 UNITS/HR Dobutamine HCl/Dextrose 500 mg in 250 mls @ 12.791 mls/hr 07/27/18 12:50 07/29/18 09:08 Dobutamine/Dextrose 5% 500mg/250ml IV 5 mcg/kg/min .[id number] PRN 12.791 mls/hr TITRATE PER PROTOCOL Titration Protocol 5 MCG/KG/MIN Insulin Detemir 15 unit 07/28/18 08:58 Levemir SC HS [facility] Insulin Human Lispro 0 units 07/29/18 18:00 07/30/18 06:07 Humalog High SC 4 u Q6 [facility] Administration Protocol - Patient Studies Lab Studies: Lab Studies 07/30/18 07/30/18 07/30/18 Range/Units 05:53 05:35 05:35 WBC 9.0 (4.5-11.0) 10^3/uL RBC 3.08 L (3.5-6.1) 10^6/uL Hgb 8.4 L (14.0-18.0) g/dL Hct 27.3 L (42.0-52.0) % MCV 88.6 (80.0-105.0) fl MCH 27.3 (25.0-35.0) pg MCHC 30.8 L (31.0-37.0) g/dl RDW 17.3 H (11.5-14.5) % Plt Count 22 L* (120.0-450.0) 10^3/uL Gran % 91.3 H (50.0-68.0) % Lymph % (Auto) 3.2 L (22.0-35.0) % Dawes % (Auto) 4.2 (1.0-6.0) % Eos % (Auto) 1.3 L (1.5-5.0) % Baso % (Auto) 0.0 (0.0-3.0) % Gran # 8.20 H (1.4-6.5) Lymph # (Auto) 0.3 L (1.2-3.4) Dawes # (Auto) 0.4 (0.1-0.6) Eos # (Auto) 0.1 (0.0-0.7) Baso # (Auto) 0.00 (0.0-2.0) K/mm3 pCO2 (35-45) mm/Hg pO2 (80-100) mm/Hg HCO3 (21-28) mmol/L ABG pH (7.35-7.45) ABG Total CO2 (22-28) mmol.L ABG O2 Saturation (95-98) % ABG O2 Content (15-23) ML/dl ABG Base Excess (-2.0-3.0) mmol/L ABG Hemoglobin (11.7-17.4) g/dL ABG Carboxyhemoglobin (0.5-1.5) % POC ABG HHb (Measured) (0-5) % ABG Methemoglobin (0.0-3.0) % ABG O2 Capacity (16-24) mL/dl Hgb O2 Saturation (95.0-98.0) % FiO2 % Sodium 142 (132-148) mmol/L Potassium 4.8 (3.6-5.0) mmol/L Chloride 116 H (98-107) mmol/L Carbon Dioxide 25 (21-33) mmol/L Anion Gap 6 L (10-20) BUN 56 H (7-21) mg/dL Creatinine 1.3 (0.8-1.5) mg/dl Est GFR ( Amer) > 60 Est GFR (Non-Af Amer) 56 POC Glucose (mg/dL) 206 H (65-110) mg/dL Random Glucose 181 H (70-110) mg/dL Calcium 7.6 L (8.4-10.5) mg/dL Total Bilirubin 0.8 (0.2-1.3) mg/dL AST 67 H (17-59) U/L ALT 65 H (7-56) U/L Alkaline Phosphatase 119 (38-126) U/L Total Protein 6.1 (5.8-8.3) g/dL Albumin 2.3 L (3.0-4.8) g/dL Globulin 3.8 gm/dL Albumin/Globulin Ratio 0.6 L (1.1-1.8) 07/30/18 07/29/18 07/29/18 Range/Units 05:00 23:55 19:50 WBC (4.5-11.0) 10^3/uL RBC (3.5-6.1) 10^6/uL Hgb (14.0-18.0) g/dL Hct (42.0-52.0) % MCV (80.0-105.0) fl MCH (25.0-35.0) pg MCHC (31.0-37.0) g/dl RDW (11.5-14.5) % Plt Count (120.0-450.0) 10^3/uL Gran % (50.0-68.0) % Lymph % (Auto) (22.0-35.0) % Dawes % (Auto) (1.0-6.0) % Eos % (Auto) (1.5-5.0) % Baso % (Auto) (0.0-3.0) % Gran # (1.4-6.5) Lymph # (Auto) (1.2-3.4) Dawes # (Auto) (0.1-0.6) Eos # (Auto) (0.0-0.7) Baso # (Auto) (0.0-2.0) K/mm3 pCO2 37 (35-45) mm/Hg pO2 187.0 H (80-100) mm/Hg HCO3 22.4 (21-28) mmol/L ABG pH 7.39 (7.35-7.45) ABG Total CO2 23.5 (22-28) mmol.L ABG O2 Saturation 99.8 H (95-98) % ABG O2 Content 14.9 L (15-23) ML/dl ABG Base Excess -2.2 L (-2.0-3.0) mmol/L ABG Hemoglobin 10.7 L (11.7-17.4) g/dL ABG Carboxyhemoglobin 2.2 H (0.5-1.5) % POC ABG HHb (Measured) 0.2 (0-5) % ABG Methemoglobin 1.1 (0.0-3.0) % ABG O2 Capacity 14.9 L (16-24) mL/dl Hgb O2 Saturation 96.5 (95.0-98.0) % FiO2 40.0 % Sodium (132-148) mmol/L Potassium (3.6-5.0) mmol/L Chloride (98-107) mmol/L Carbon Dioxide (21-33) mmol/L Anion Gap (10-20) BUN (7-21) mg/dL Creatinine (0.8-1.5) mg/dl Est GFR ( Amer) Est GFR (Non-Af Amer) POC Glucose (mg/dL) 278 H 270 H (65-110) mg/dL Random Glucose (70-110) mg/dL Calcium (8.4-10.5) mg/dL Total Bilirubin (0.2-1.3) mg/dL AST (17-59) U/L ALT (7-56) U/L Alkaline Phosphatase (38-126) U/L Total Protein (5.8-8.3) g/dL Albumin (3.0-4.8) g/dL Globulin gm/dL Albumin/Globulin Ratio (1.1-1.8) 07/29/18 Range/Units 11:30 WBC (4.5-11.0) 10^3/uL RBC (3.5-6.1) 10^6/uL Hgb (14.0-18.0) g/dL Hct (42.0-52.0) % MCV (80.0-105.0) fl MCH (25.0-35.0) pg MCHC (31.0-37.0) g/dl RDW (11.5-14.5) % Plt Count (120.0-450.0) 10^3/uL Gran % (50.0-68.0) % Lymph % (Auto) (22.0-35.0) % Dawes % (Auto) (1.0-6.0) % Eos % (Auto) (1.5-5.0) % Baso % (Auto) (0.0-3.0) % Gran # (1.4-6.5) Lymph # (Auto) (1.2-3.4) Dawes # (Auto) (0.1-0.6) Eos # (Auto) (0.0-0.7) Baso # (Auto) (0.0-2.0) K/mm3 pCO2 (35-45) mm/Hg pO2 (80-100) mm/Hg HCO3 (21-28) mmol/L ABG pH (7.35-7.45) ABG Total CO2 (22-28) mmol.L ABG O2 Saturation (95-98) % ABG O2 Content (15-23) ML/dl ABG Base Excess (-2.0-3.0) mmol/L ABG Hemoglobin (11.7-17.4) g/dL ABG Carboxyhemoglobin (0.5-1.5) % POC ABG HHb (Measured) (0-5) % ABG Methemoglobin (0.0-3.0) % ABG O2 Capacity (16-24) mL/dl Hgb O2 Saturation (95.0-98.0) % FiO2 % Sodium (132-148) mmol/L Potassium (3.6-5.0) mmol/L Chloride (98-107) mmol/L Carbon Dioxide (21-33) mmol/L Anion Gap (10-20) BUN (7-21) mg/dL Creatinine (0.8-1.5) mg/dl Est GFR ( Amer) Est GFR (Non-Af Amer) POC Glucose (mg/dL) 158 H (65-110) mg/dL Random Glucose (70-110) mg/dL Calcium (8.4-10.5) mg/dL Total Bilirubin (0.2-1.3) mg/dL AST (17-59) U/L ALT (7-56) U/L Alkaline Phosphatase (38-126) U/L Total Protein (5.8-8.3) g/dL Albumin (3.0-4.8) g/dL Globulin gm/dL Albumin/Globulin Ratio (1.1-1.8) Laboratory Results - last 24 hr 07/29/18 07/29/18 07/29/18 11:30 19:50 23:55 WBC RBC Hgb Hct MCV MCH MCHC RDW Plt Count Gran % Lymph % (Auto) Dawes % (Auto) Eos % (Auto) Baso % (Auto) Gran # Lymph # (Auto) Dawes # (Auto) Eos # (Auto) Baso # (Auto) pCO2 pO2 HCO3 ABG pH ABG Total CO2 ABG O2 Saturation ABG O2 Content ABG Base Excess ABG Hemoglobin ABG Carboxyhemoglobin POC ABG HHb (Measured) ABG Methemoglobin ABG O2 Capacity Hgb O2 Saturation FiO2 Sodium Potassium Chloride Carbon Dioxide Anion Gap BUN Creatinine Est GFR ( Amer) Est GFR (Non-Af Amer) POC Glucose (mg/dL) 158 H 270 H 278 H Random Glucose Calcium Total Bilirubin AST ALT Alkaline Phosphatase Total Protein Albumin Globulin Albumin/Globulin Ratio 07/30/18 07/30/18 07/30/18 05:00 05:35 05:35 WBC 9.0 RBC 3.08 L Hgb 8.4 L Hct 27.3 L MCV 88.6 MCH 27.3 MCHC 30.8 L RDW 17.3 H Plt Count 22 L* Gran % 91.3 H Lymph % (Auto) 3.2 L Dawes % (Auto) 4.2 Eos % (Auto) 1.3 L Baso % (Auto) 0.0 Gran # 8.20 H Lymph # (Auto) 0.3 L Dawes # (Auto) 0.4 Eos # (Auto) 0.1 Baso # (Auto) 0.00 pCO2 37 pO2 187.0 H HCO3 22.4 ABG pH 7.39 ABG Total CO2 23.5 ABG O2 Saturation 99.8 H ABG O2 Content 14.9 L ABG Base Excess -2.2 L ABG Hemoglobin 10.7 L ABG Carboxyhemoglobin 2.2 H POC ABG HHb (Measured) 0.2 ABG Methemoglobin 1.1 ABG O2 Capacity 14.9 L Hgb O2 Saturation 96.5 FiO2 40.0 Sodium 142 Potassium 4.8 Chloride 116 H Carbon Dioxide 25 Anion Gap 6 L BUN 56 H Creatinine 1.3 Est GFR ( Amer) > 60 Est GFR (Non-Af Amer) 56 POC Glucose (mg/dL) Random Glucose 181 H Calcium 7.6 L Total Bilirubin 0.8 AST 67 H ALT 65 H Alkaline Phosphatase 119 Total Protein 6.1 Albumin 2.3 L Globulin 3.8 Albumin/Globulin Ratio 0.6 L 07/30/18 05:53 WBC RBC Hgb Hct MCV MCH MCHC RDW Plt Count Gran % Lymph % (Auto) Dawes % (Auto) Eos % (Auto) Baso % (Auto) Gran # Lymph # (Auto) Dawes # (Auto) Eos # (Auto) Baso # (Auto) pCO2 pO2 HCO3 ABG pH ABG Total CO2 ABG O2 Saturation ABG O2 Content ABG Base Excess ABG Hemoglobin ABG Carboxyhemoglobin POC ABG HHb (Measured) ABG Methemoglobin ABG O2 Capacity Hgb O2 Saturation FiO2 Sodium Potassium Chloride Carbon Dioxide Anion Gap BUN Creatinine Est GFR ( Amer) Est GFR (Non-Af Amer) POC Glucose (mg/dL) 206 H Random Glucose Calcium Total Bilirubin AST ALT Alkaline Phosphatase Total Protein Albumin Globulin Albumin/Globulin Ratio Radiology Impressions: Radiology Impressions Chest X-Ray 07/29/18 06:00 IMPRESSION: No active disease. Chest X-Ray 07/30/18 06:00 IMPRESSION: No active disease. Fingerstick Blood Sugar Results: 206 Critical Care Progress Note - Nutrition Nutrition: Nutrition Category Date Time Status NPO Diet [DIET] Diets 07/06/18 Breakfast Ordered Assessment/Plan - Assessment and Plan (Free Text) Assessment: 62 y/o male with PMHx of COPD, active smoker 1pk per day, HTN, DM, PVD, presents with ER with 2 day history of fever, chills, associated with cough that is non- productive. Patient was initially started on heparin drip given elevated troponin, and markedly diminished EF. Hep drip currently held secondary to thrombocytopenia. Initially paralyzed on Nimbex after overbreathing ventilator. Extubated last week, ARDS resolved and s/p merrem and doxycycline antibiotic therapy for pneumonia. Reintubated on 07/22 due to inability to protect airway. Awaiting LTAC facility transfer today. Plan: Neuro: Critical Illness Polyneuropathy - approved for LTAC placement, plan for today - ABG today shows 7.39/37/187/25 - intubated on 07/22/18 due to not protecting airway, weaning sedation today and placed on CPAP - Neuro consult - Per neurologist, poor motor function likely from critical illness polyneuropathy - Results of EEG 07/10/18: moderate nonspecific diffuse disturbance of cortical activity, nonspecific diffuse fernandez matter dysfunction, no seizures, not in status epilepticus - 07/13/18 MRI brain without contrast negative for acute abnormalitie, 07/10/18 CT head without contrast negative Pulmology S/p intubation on 07/22/18 -unable to protect airway, weaning sedation, placed on CPAP today CAP and Flu A positive - completed tamiflu and merrem/doxycycline treatment for flu and CAP respectively - CXR 07/22 shows new right sided infiltrate, completed 8 day course of merrem - Duonebs seema q6 and PRN q2 - Urine Lg and Strep negative - Procal is 0.16 on 07/19 from 0.6 on 1/8 - ID eval: Dr. Fernandes, Pulm consulted - Dr. Aminah Webb OG - downtrending - BUN/Cr stable - hypernatremia - resolved - Strict Is and Os, oliveros in place - Tolerated first HD on 07/07/18, now off HD - Nephro consult - recs appreciated. Per nephro, no hemodialysis at this time - Continue water flushes per Nephro recs in light of low EF. ID RLL Pneumonia - afebrile overnight, WBC WNL - s/p treatment of flu and pna with tamiflu and merrem/doxy - completed 8 day course of merrem for new right sided infiltrate - Ammonia level <9 - ID eval: Dr. Fernandes - Repeat blood cx neg after 5 days, repeat UA negative, repeat sputum cx growing moderate amount of yeast. Cardiology NSTEMI - 07/03 Troponins elevated 0.48, 0.67, 0.67 - Cardiology consulted - Dr. Saxena. Cardiac cath on hold due to persistent thrombocytopenia. - started on dobutamine drip as per cardio - Dig level 07/20 is 0.9 WNL - Hold IVF d/t poor EF, Hold Heparin drip HFrEF - BNP 82210 on 07/03 - 07/03/18 echo report shows EF 14.2%, mildly dilated LV, systolic function severely impaired, akinetic septum, TR and pulm HTN -continue digoxin 0.125mg IV, cardizem 60mg TID for afib Heme Chronic Thrombocytopenia, ITP - Received previous transfusions as outpatient - platelets are 22 today from 42 manual yesterday - total 7 unit PLT transfused. IV gammaglobulin 5 day course completed on 07/11/18 - completed second course of IVIG for 3 days - 07/24/18 - Will transfuse if <20 or actively bleeding per Hem recs - Will hold off on DVT chemoprophylaxis at this time, may resume if platelets >50 per heme/onc - Hem consult placed- Dr. Estevez - Negative IVONE and ANCA studies, ESR 45, HIT antibody negative Endo Uncontrolled DM - continue high insulin sliding scale, ACHS - Hgb a1c 8.2 - Diabetic education GI - OG tube in place, hold tube feedings for now due to uncontrolled sugars, electrolytes - swallow eval 07/17/18: Pt. poorly responsive, with hyper gag reflex. No response to oral stimulation or spoon/straw tip. - Shock liver resolved - Hep panel negative - 07/03/18 RUQ U/S shows hepatosplenomegaly - pepcid for PPX Dispo: Approved for LTAC, awaiting family choice of LTAC facility. Patient seen and case discussed with attending, Dr. Casanova <Blake Casanova - Last Filed: 07/30/18 15:04> CCU Objective - Vital Signs / Intake & Output Vital Signs (Last 4 hours): Vital Signs Temp Pulse BP Pulse Ox 07/30/18 13:37 99.5 F 07/30/18 13:36 147/62 07/30/18 12:00 99.0 F 74 142/61 100 Intake and Output (Last 8hrs): Intake & Output 07/30/18 07/30/18 07/30/18 06:59 14:59 22:59 Intake Total 184 15 Output Total 1200 Balance -1016 15 Weight 191 lb Intake: IV 184 15 dobutamine 120 propofol 44 Output: Urine 1200 Urethral (Oliveros) 1200 Other: # Bowel Movements 1 - Medications Active Medications: Active Medications Generic Name Dose Route Start Last Admin Trade Name Freq PRN Reason Stop Dose Admin Acetaminophen 650 mg 07/08/18 18:18 07/30/18 13:37 Tylenol 650mg/20.3ml Solution Ud PO 650 mg Q6H PRN Administration Fever 101F Albuterol/Ipratropium 3 ml 07/03/18 14:00 07/30/18 13:26 Duoneb 3 Mg/0.5 Mg (3 Ml) Ud IH 3 ml [id number] SEEMA Administration Albuterol/Ipratropium 3 ml 07/03/18 11:04 07/11/18 23:55 Duoneb 3 Mg/0.5 Mg (3 Ml) Ud IH 3 ml Q2H PRN Administration Shortness of Breath Amino Acid Protein 15 gm 07/29/18 11:30 07/30/18 10:03 Prostat 15 G Packet GT 15 gm BID SEEMA Administration Diltiazem HCl 60 mg 07/17/18 14:00 07/30/18 13:36 Cardizem PO 60 mg TID SEEMA Administration Home Med 1 unit 07/31/18 10:00 Home Med PO DAILY SEEMA Propofol 1,000 mg in 100 mls @ 2.545 mls/hr 07/22/18 08:29 07/30/18 07:30 Diprivan IV 0 mcg/kg/min .Q24H PRN 0 mls/hr TITRATE PER MD ORDER Titration Protocol 5 MCG/KG/MIN Insulin Human Regular 100 100 mls @ 15 mls/hr 07/24/18 08:24 07/26/18 08:35 units/ Sodium Chloride IV 2 units/hr .Q6H40M PRN 2 mls/hr TITRATE PER MD ORDER Titration Protocol 15 UNITS/HR Dobutamine HCl/Dextrose 500 mg in 250 mls @ 12.791 mls/hr 07/27/18 12:50 07/29/18 09:08 Dobutamine/Dextrose 5% 500mg/250ml IV 5 mcg/kg/min .[id number] PRN 12.791 mls/hr TITRATE PER PROTOCOL Titration Protocol 5 MCG/KG/MIN Insulin Detemir 15 unit 07/28/18 08:58 Levemir SC HS [facility] Insulin Human Lispro 0 units 07/29/18 18:00 07/30/18 11:50 Humalog High SC 2 u Q6 SEEMA Administration Protocol - Patient Studies Lab Studies: Lab Studies 07/30/18 07/30/18 07/30/18 Range/Units 11:32 10:00 05:53 WBC (4.5-11.0) 10^3/uL RBC (3.5-6.1) 10^6/uL Hgb (14.0-18.0) g/dL Hct (42.0-52.0) % MCV (80.0-105.0) fl MCH (25.0-35.0) pg MCHC (31.0-37.0) g/dl RDW (11.5-14.5) % Plt Count (120.0-450.0) 10^3/uL Gran % (50.0-68.0) % Lymph % (Auto) (22.0-35.0) % Dawes % (Auto) (1.0-6.0) % Eos % (Auto) (1.5-5.0) % Baso % (Auto) (0.0-3.0) % Gran # (1.4-6.5) Lymph # (Auto) (1.2-3.4) Dawes # (Auto) (0.1-0.6) Eos # (Auto) (0.0-0.7) Baso # (Auto) (0.0-2.0) K/mm3 pCO2 (35-45) mm/Hg pO2 (80-100) mm/Hg HCO3 (21-28) mmol/L ABG pH (7.35-7.45) ABG Total CO2 (22-28) mmol.L ABG O2 Saturation (95-98) % ABG O2 Content (15-23) ML/dl ABG Base Excess (-2.0-3.0) mmol/L ABG Hemoglobin (11.7-17.4) g/dL ABG Carboxyhemoglobin (0.5-1.5) % POC ABG HHb (Measured) (0-5) % ABG Methemoglobin (0.0-3.0) % ABG O2 Capacity (16-24) mL/dl Hgb O2 Saturation (95.0-98.0) % FiO2 % Sodium (132-148) mmol/L Potassium (3.6-5.0) mmol/L Chloride (98-107) mmol/L Carbon Dioxide (21-33) mmol/L Anion Gap (10-20) BUN (7-21) mg/dL Creatinine (0.8-1.5) mg/dl Est GFR ( Amer) Est GFR (Non-Af Amer) POC Glucose (mg/dL) 193 H 206 H (65-110) mg/dL Random Glucose (70-110) mg/dL Calcium (8.4-10.5) mg/dL Total Bilirubin (0.2-1.3) mg/dL AST (17-59) U/L ALT (7-56) U/L Alkaline Phosphatase (38-126) U/L Total Protein (5.8-8.3) g/dL Albumin (3.0-4.8) g/dL Globulin gm/dL Albumin/Globulin Ratio (1.1-1.8) Stool Occult Blood Positive H (NEGATIVE) 07/30/18 07/30/18 07/30/18 Range/Units 05:35 05:35 05:00 WBC 9.0 (4.5-11.0) 10^3/uL RBC 3.08 L (3.5-6.1) 10^6/uL Hgb 8.4 L (14.0-18.0) g/dL Hct 27.3 L (42.0-52.0) % MCV 88.6 (80.0-105.0) fl MCH 27.3 (25.0-35.0) pg MCHC 30.8 L (31.0-37.0) g/dl RDW 17.3 H (11.5-14.5) % Plt Count 22 L* (120.0-450.0) 10^3/uL Gran % 91.3 H (50.0-68.0) % Lymph % (Auto) 3.2 L (22.0-35.0) % Dawes % (Auto) 4.2 (1.0-6.0) % Eos % (Auto) 1.3 L (1.5-5.0) % Baso % (Auto) 0.0 (0.0-3.0) % Gran # 8.20 H (1.4-6.5) Lymph # (Auto) 0.3 L (1.2-3.4) Dawes # (Auto) 0.4 (0.1-0.6) Eos # (Auto) 0.1 (0.0-0.7) Baso # (Auto) 0.00 (0.0-2.0) K/mm3 pCO2 37 (35-45) mm/Hg pO2 187.0 H (80-100) mm/Hg HCO3 22.4 (21-28) mmol/L ABG pH 7.39 (7.35-7.45) ABG Total CO2 23.5 (22-28) mmol.L ABG O2 Saturation 99.8 H (95-98) % ABG O2 Content 14.9 L (15-23) ML/dl ABG Base Excess -2.2 L (-2.0-3.0) mmol/L ABG Hemoglobin 10.7 L (11.7-17.4) g/dL ABG Carboxyhemoglobin 2.2 H (0.5-1.5) % POC ABG HHb (Measured) 0.2 (0-5) % ABG Methemoglobin 1.1 (0.0-3.0) % ABG O2 Capacity 14.9 L (16-24) mL/dl Hgb O2 Saturation 96.5 (95.0-98.0) % FiO2 40.0 % Sodium 142 (132-148) mmol/L Potassium 4.8 (3.6-5.0) mmol/L Chloride 116 H (98-107) mmol/L Carbon Dioxide 25 (21-33) mmol/L Anion Gap 6 L (10-20) BUN 56 H (7-21) mg/dL Creatinine 1.3 (0.8-1.5) mg/dl Est GFR ( Amer) > 60 Est GFR (Non-Af Amer) 56 POC Glucose (mg/dL) (65-110) mg/dL Random Glucose 181 H (70-110) mg/dL Calcium 7.6 L (8.4-10.5) mg/dL Total Bilirubin 0.8 (0.2-1.3) mg/dL AST 67 H (17-59) U/L ALT 65 H (7-56) U/L Alkaline Phosphatase 119 (38-126) U/L Total Protein 6.1 (5.8-8.3) g/dL Albumin 2.3 L (3.0-4.8) g/dL Globulin 3.8 gm/dL Albumin/Globulin Ratio 0.6 L (1.1-1.8) Stool Occult Blood (NEGATIVE) 07/29/18 07/29/18 Range/Units 23:55 19:50 WBC (4.5-11.0) 10^3/uL RBC (3.5-6.1) 10^6/uL Hgb (14.0-18.0) g/dL Hct (42.0-52.0) % MCV (80.0-105.0) fl MCH (25.0-35.0) pg MCHC (31.0-37.0) g/dl RDW (11.5-14.5) % Plt Count (120.0-450.0) 10^3/uL Gran % (50.0-68.0) % Lymph % (Auto) (22.0-35.0) % Dawes % (Auto) (1.0-6.0) % Eos % (Auto) (1.5-5.0) % Baso % (Auto) (0.0-3.0) % Gran # (1.4-6.5) Lymph # (Auto) (1.2-3.4) Dawes # (Auto) (0.1-0.6) Eos # (Auto) (0.0-0.7) Baso # (Auto) (0.0-2.0) K/mm3 pCO2 (35-45) mm/Hg pO2 (80-100) mm/Hg HCO3 (21-28) mmol/L ABG pH (7.35-7.45) ABG Total CO2 (22-28) mmol.L ABG O2 Saturation (95-98) % ABG O2 Content (15-23) ML/dl ABG Base Excess (-2.0-3.0) mmol/L ABG Hemoglobin (11.7-17.4) g/dL ABG Carboxyhemoglobin (0.5-1.5) % POC ABG HHb (Measured) (0-5) % ABG Methemoglobin (0.0-3.0) % ABG O2 Capacity (16-24) mL/dl Hgb O2 Saturation (95.0-98.0) % FiO2 % Sodium (132-148) mmol/L Potassium (3.6-5.0) mmol/L Chloride (98-107) mmol/L Carbon Dioxide (21-33) mmol/L Anion Gap (10-20) BUN (7-21) mg/dL Creatinine (0.8-1.5) mg/dl Est GFR ( Amer) Est GFR (Non-Af Amer) POC Glucose (mg/dL) 278 H 270 H (65-110) mg/dL Random Glucose (70-110) mg/dL Calcium (8.4-10.5) mg/dL Total Bilirubin (0.2-1.3) mg/dL AST (17-59) U/L ALT (7-56) U/L Alkaline Phosphatase (38-126) U/L Total Protein (5.8-8.3) g/dL Albumin (3.0-4.8) g/dL Globulin gm/dL Albumin/Globulin Ratio (1.1-1.8) Stool Occult Blood (NEGATIVE) Laboratory Results - last 24 hr 07/29/18 07/29/18 07/30/18 19:50 23:55 05:00 WBC RBC Hgb Hct MCV MCH MCHC RDW Plt Count Gran % Lymph % (Auto) Dawes % (Auto) Eos % (Auto) Baso % (Auto) Gran # Lymph # (Auto) Dawes # (Auto) Eos # (Auto) Baso # (Auto) pCO2 37 pO2 187.0 H HCO3 22.4 ABG pH 7.39 ABG Total CO2 23.5 ABG O2 Saturation 99.8 H ABG O2 Content 14.9 L ABG Base Excess -2.2 L ABG Hemoglobin 10.7 L ABG Carboxyhemoglobin 2.2 H POC ABG HHb (Measured) 0.2 ABG Methemoglobin 1.1 ABG O2 Capacity 14.9 L Hgb O2 Saturation 96.5 FiO2 40.0 Sodium Potassium Chloride Carbon Dioxide Anion Gap BUN Creatinine Est GFR ( Amer) Est GFR (Non-Af Amer) POC Glucose (mg/dL) 270 H 278 H Random Glucose Calcium Total Bilirubin AST ALT Alkaline Phosphatase Total Protein Albumin Globulin Albumin/Globulin Ratio Stool Occult Blood 07/30/18 07/30/18 07/30/18 05:35 05:35 05:53 WBC 9.0 RBC 3.08 L Hgb 8.4 L Hct 27.3 L MCV 88.6 MCH 27.3 MCHC 30.8 L RDW 17.3 H Plt Count 22 L* Gran % 91.3 H Lymph % (Auto) 3.2 L Dawes % (Auto) 4.2 Eos % (Auto) 1.3 L Baso % (Auto) 0.0 Gran # 8.20 H Lymph # (Auto) 0.3 L Dawes # (Auto) 0.4 Eos # (Auto) 0.1 Baso # (Auto) 0.00 pCO2 pO2 HCO3 ABG pH ABG Total CO2 ABG O2 Saturation ABG O2 Content ABG Base Excess ABG Hemoglobin ABG Carboxyhemoglobin POC ABG HHb (Measured) ABG Methemoglobin ABG O2 Capacity Hgb O2 Saturation FiO2 Sodium 142 Potassium 4.8 Chloride 116 H Carbon Dioxide 25 Anion Gap 6 L BUN 56 H Creatinine 1.3 Est GFR ( Amer) > 60 Est GFR (Non-Af Amer) 56 POC Glucose (mg/dL) 206 H Random Glucose 181 H Calcium 7.6 L Total Bilirubin 0.8 AST 67 H ALT 65 H Alkaline Phosphatase 119 Total Protein 6.1 Albumin 2.3 L Globulin 3.8 Albumin/Globulin Ratio 0.6 L Stool Occult Blood 07/30/18 07/30/18 10:00 11:32 WBC RBC Hgb Hct MCV MCH MCHC RDW Plt Count Gran % Lymph % (Auto) Dawes % (Auto) Eos % (Auto) Baso % (Auto) Gran # Lymph # (Auto) Dawes # (Auto) Eos # (Auto) Baso # (Auto) pCO2 pO2 HCO3 ABG pH ABG Total CO2 ABG O2 Saturation ABG O2 Content ABG Base Excess ABG Hemoglobin ABG Carboxyhemoglobin POC ABG HHb (Measured) ABG Methemoglobin ABG O2 Capacity Hgb O2 Saturation FiO2 Sodium Potassium Chloride Carbon Dioxide Anion Gap BUN Creatinine Est GFR ( Amer) Est GFR (Non-Af Amer) POC Glucose (mg/dL) 193 H Random Glucose Calcium Total Bilirubin AST ALT Alkaline Phosphatase Total Protein Albumin Globulin Albumin/Globulin Ratio Stool Occult Blood Positive H Radiology Impressions: Radiology Impressions Chest X-Ray 07/30/18 06:00 IMPRESSION: No active disease. Critical Care Progress Note - Nutrition Nutrition: Nutrition Category Date Time Status NPO Diet [DIET] Diets 07/06/18 Breakfast Ordered Attending/Attestation - Attestation I have personally seen and examined this patient.: Yes I have fully participated in the care of the patient.: Yes I have reviewed all pertinent clinical information: Yes Notes (Text): 07/30/18 15:02 62 yo with toxic metabolic encephalopathy, TORIN/P, VDRF-->continue conservative fluid and 02 managment, HOB>35, oral hygiene, daily weaning trial and sedation vacation. failed PST today. approved for LTAC. dvt/gi prophyalxis ccm time 40 min
[2018-07-30] MEDS: Prostat 15 g packet GT SCH (10:03)
--- NOTE | 2018-07-30 10:11 | PN ---
SUBJECTIVE: The patient was seen and examined at bedside in the ICU. No acute events overnight. He remains intubated, sedated and clinically unchanged. OBJECTIVE: VITAL SIGNS: Temperature 96.8, pulse 85, blood pressure 151/78, respiratory rate 18, oxygen saturation 100% on 35% FiO2. GENERAL: Intubated and sedated. HEENT: PERRL. ETT in place. OGT in place. NECK: No JVD. LUNGS: Coarse anterior breath sounds with few scattered rhonchi. CARDIOVASCULAR: Regular rate and rhythm. Normal S1, S2. ABDOMEN: Normoactive bowel sounds. Soft, nondistended. EXTREMITIES: Trace pedal edema. NEUROLOGIC: Intubated and sedated. LABORATORY DATA: WBC 9 with 91% neutrophils, hemoglobin 8.4, hematocrit 27, platelets 42. Sodium 142, potassium 4.8, chloride 116, bicarb 25, BUN 56, creatinine 1.3, glucose 181. ASSESSMENT: The patient is a 62-year-old man with multiple medical comorbidities who was admitted to the ICU s/p intubation for acute hypoxic respiratory failure and severe sepsis secondary to community-acquired pneumonia who is now s/p reintubation for hypercapnic respiratory failure likely secondary to right lower lobe aspiration pneumonia. PLAN: 1. Ventilator-dependent respiratory failure, likely secondary to aspiration pneumonia. Input from Dr. Burr and ICU team noted. Continue with care as per ICU team. The patient will likely require placement of tracheostomy. 2. Severe sepsis secondary to aspiration pneumonia, resolving. Input from Dr. Lucero noted. The patient remains afebrile with negative blood cultures. Continue with antimicrobials as per Dr. Lucero. 3. 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 Input from Dr. Mcdaniels noted. The patient is s/p a course of IVIG. Continue with aggressive PT. Arrangements are being made for transfer to LTAC. 4. Acute kidney injury, likely secondary to ATN, resolving. Input from Dr. Sullivan noted and renal parameters continue to improve. Continue to monitor strict I&O's, renally dose medications and avoid nephrotoxins. 5. Thrombocytopenia secondary to ITP. The patient is s/p a course of IVIG. Continue with care as per Dr. Estevez. 6. NSTEMI. Input from Dr. Saxena noted. The patient is not a candidate for cardiac cath given his clinical condition. 7. Paroxysmal atrial fibrillation. Continue Diltiazem. 8. Acute systolic heart failure, resolved. Continue with care as per Dr. Saxena. 9. Transaminitis, resolved. 10. Normocytic anemia. Continue to monitor CBC and transfuse as needed. 11. Type 2 diabetes mellitus. Continue with current insulin regimen. 12. Hypertension. 13. Pseudogout. 14. Anxiety disorder. 15. GERD. 16. Prophylaxis. Continue with Protonix for GI prophylaxis and SCDs for DVT prophylaxis. CODE STATUS: Full code. Yassien Martinez MD MTDD
[2018-07-30] MEDS ORDERED: PROMACTA 75 MG PO ONE (10:30)
--- NOTE | 2018-07-30 10:45 | PN ---
DATE: 07/29/2018 HEM/ONC PROGRESS NOTE LOCATION: The patient is in ICU bed 5. SUBJECTIVE: The patient is being followed by us for the patient's diagnosis of refractory thrombocytopenia, currently with a background history of having had ITP and being on Promacta in the past. The patient was admitted to the hospital with progressive respiratory symptoms on top of which the patient was documented to have troponin elevation along with distinctive significant cardiomyopathy, probably related to a cardiac event superimposed on pneumonic process probably while superimposed with bacterial infection. Since admission, the patient has progressively deteriorated, had to be intubated, has been on multiple antibiotics, has received IV gammaglobulin for progressive thrombocytopenia initially for five days and then for additional three days because of the concern that the patient could have polyneuropathy related to his acute systemic illness. Since then, the platelet counts have stabilized and have been above 20,000. The patient did receive a unit of blood and unit of platelets recently and we are monitoring the platelet count. [facility] because the patient's drug is not on formulary. We will try to plan on giving him the crushed format through the feeding tube. Subjectively, the patient is seen lying in bed. He remains on ventilator. He is on sedation. He is still in tube feeding and the patient is unresponsive. PHYSICAL EXAMINATION: GENERAL: There is no blood in the ET or the feeding tube. VITAL SIGNS: Stable. Blood pressure is 135/74, heart rate is 101, respirations 24 to 28, T-max is 100.8. HEENT: Normocephalic, atraumatic. The patient has pallor noted on the examination of the conjunctiva. NECK: Supple. There is no adenopathy. LUNGS: Reveal bilateral equal entry of air without any significant rales or rhonchi. CARDIOVASCULAR SYSTEM: Reveals S1, S2 to be normal. Gallop is heard. ABDOMEN: Soft, nondistended. Bowel sounds are present. EXTREMITIES: Reveals no significant edema with chronic stasis in both lower extremities with a chronic wound in the right ankle area. LABORATORY DATA: Reveals a white count of 9.3, hemoglobin 7.5, hematocrit 23, platelet count of 16,000, manual count is 42,000. Chest x-ray shows no active disease at this time. The patient's current medications include Cardizem 60 t.i.d., Diprivan, dobutamine, insulin, and Merrem 500 every 12 hours. The patient should be completing day 8 of the antibiotics. Chest x-ray still shows an infiltrate. ASSESSMENT, NOTES, AND PLAN: The patient has multiorgan dysfunction syndrome, respiratory failure, critical illness polyneuropathy superimposed on this. The patient has chronic idiopathic thrombocytopenic purpura which has gotten exacerbated with coexisting comorbid condition, severe anemia, received one unit of blood. May require more transfusion before being transferred to the long-term acute care. We will talk to the resident about resuming patient's home medications, Promacta via the feeding tube in view of having the availability of . Please make a note, this is a complex patient with multiple comorbid medical issues. Sandra Estevez MD
--- NOTE | 2018-07-30 11:08 | PN ---
DATE: 07/30/2018(245am-175am) SUBJECTIVE: The patient remains in the ICU and on the ventilator. However, he is less sedated this morning, and is now opening his eyes. PHYSICAL EXAMINATION: VITAL SIGNS: Temperature 96.8, pulse 98, respiratory rate 22/14, blood pressure 160/77. HEENT: Normocephalic, atraumatic. NECK: No JVD. CARDIOVASCULAR: Systolic ejection murmur at the lower left sternal border. No S3 gallop. LUNGS: Decreased breath sounds at the bases. Very minimal/less rhonchi. No wheezing. EXTREMITIES: Mild edema. No cyanosis or clubbing. GI: Abdomen is soft, nondistended. Bowel sounds are positive. SKIN: No acute rash. NEUROLOGIC: Exam limited at the present time. 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 There are no significant/new changes. Arterial blood gas was done on PRVC 14, tidal volume 500, FiO2 40%. Results are; pH 7.39, pCO2 of 37, pO2 of 187. IMPRESSION: 1. Respiratory failure. 2. Bilateral pneumonia. 3. Rule out myocardial infarction. 4. Ischemic dilated cardiomyopathy. 5. Renal failure. 6. Anemia, thrombocytopenia. 7. Chronic obstructive pulmonary disease. 8. Rule out critical illness polyneuropathy. PLAN: The patient remains in the ICU. He remains on the ventilator. However, he is less sedated this morning and is now opening his eyes. I did discuss the case with the night nurse at length. The night nurse confirms that the patient is more awake over the past day. I did review the chest x-ray as above. There are no new/significant changes noted. Official results are pending. I have also reviewed the arterial blood gas. The arterial blood gas continues to improve - with a normal pH and a significant decrease in the alveolar-arterial gradient. I will discuss possible retrying the weaning trials with the ICU team later this morning. On physical exam, there is certainly less bronchospasm noted. I will continue with the current nebulizer treatments for now. The patient remains on antibiotic therapy - as per Infectious Disease. Temperatures are resolving. The leukocytosis has resolved. Inputs by Cardiology and Renal are also noted. The patient remains critically ill, but does appear somewhat improved this morning. His overall prognosis remains very guarded. I will discuss the above with the entire ICU team in the next few moments. I will also discuss the above with the attending physician later this morning. Balta Burr MD MOE
--- NOTE | 2018-07-30 12:00 | CP.PCM.PN ---
Subjective - Date & Time of Evaluation Date of Evaluation: 07/30/18 Time of Evaluation: 11:54 - Subjective Subjective: PGY-2 heme/onc progress note No acute events overnight. Patient was intubated and sedated receiving tube feeds - ROS were not obtainable. Objective - Vital Signs/Intake and Output Vital Signs (last 24 hours): Temp Pulse Resp BP Pulse Ox 98.4 F 72 12 147/73 100 07/30/18 10:00 07/30/18 10:00 07/30/18 07:42 07/30/18 10:02 07/30/18 10:00 Intake and Output: 07/30/18 07/30/18 06:59 18:59 Intake Total 284 15 Output Total 1200 Balance -916 15 - Medications Medications: Current Medications Acetaminophen (Tylenol 650mg/20.3ml Solution Ud) 650 mg PO Q6H PRN PRN Reason: Fever 101F Last Admin: 07/29/18 18:38 Dose: 650 mg Albuterol/Ipratropium (Duoneb 3 Mg/0.5 Mg (3 Ml) Ud) 3 ml IH [id number] [facility] Last Admin: 07/30/18 07:07 Dose: 3 ml Albuterol/Ipratropium (Duoneb 3 Mg/0.5 Mg (3 Ml) Ud) 3 ml IH Q2H PRN PRN Reason: Shortness of Breath Last Admin: 07/11/18 23:55 Dose: 3 ml Amino Acid Protein (Prostat 15 G Packet) 15 gm GT BID [facility] Last Admin: 07/30/18 10:03 Dose: 15 gm Diltiazem HCl (Cardizem) 60 mg PO TID [facility] Last Admin: 07/30/18 10:02 Dose: 60 mg Home Med (Home Med) 1 unit PO DAILY [facility] Propofol (Diprivan) 1,000 mg in 100 mls @ 2.545 mls/hr IV .Q24H PRN; Protocol PRN Reason: TITRATE PER MD ORDER Last Titration: 07/30/18 07:30 Dose: 0 mcg/kg/min, 0 mls/hr Insulin Human Regular 100 (units/ Sodium Chloride) 100 mls @ 15 mls/hr IV .Q6 H40M PRN; Protocol PRN Reason: TITRATE PER MD ORDER Last Titration: 07/26/18 08:35 Dose: 2 units/hr, 2 mls/hr Dobutamine HCl/Dextrose (Dobutamine/Dextrose 5% 500mg/250ml) 500 mg in 250 mls @ 12.791 mls/hr IV .[id number] PRN; Protocol PRN Reason: TITRATE PER PROTOCOL Last Titration: 07/29/18 09:08 Dose: 5 mcg/kg/min, 12.791 mls/hr Insulin Detemir (Levemir) 15 unit SC HS [facility] Insulin Human Lispro (Humalog High) 0 units SC Q6 [facility]; Protocol Last Admin: 07/30/18 11:50 Dose: 2 u - Labs Labs: 07/30/18 05:35 07/30/18 05:35 PT 12.5 SECONDS (9.4-12.5) 07/24/18 06:10 INR 1.09 07/24/18 06:10 APTT 18.7 Seconds (25.1-36.5) L 07/06/18 11:54 - Additional Findings Additional findings: - Constitutional Appears: No Acute Distress, Older Than Stated Age, Chronically Ill - Head Exam Head Exam: ATRAUMATIC, NORMAL INSPECTION - Eye Exam Eye Exam: EOMI, PERRL. absent: Scleral icterus - ENT Exam ENT Exam: Mucous Membranes Moist Additional comments: Dobhoff in place in R nares ET tube in place - Respiratory Exam Respiratory Exam: Decreased Breath Sounds, Clear to Ausculation Bilateral - Cardiovascular Exam Cardiovascular Exam: REGULAR RHYTHM, +S1, +S2. absent: JVD - GI/Abdominal Exam GI & Abdominal Exam: Soft, Normal Bowel Sounds Additional comments: R femoral cath removed, dressing c/d/i, without hematoma - Extremities Exam Extremities Exam: Normal Capillary Refill Additional comments: chronic diabetic ulcer noted to anterior anderson of left lower extremity - Neurological Exam Neurological Exam: Sedated Additional comments: - Skin Skin Exam: Intact, Warm Additional comments: Ecchymotic in R antecubital region, stable; ecchymoses at different levels of healing throughout extremities Assessment and Plan - Assessment and Plan (Free Text) Plan: Mr. Damon is a 62 y/o man with pmhx significant for COPD, HTN; DM; PVD; and ITP admitted with ARDS in setting of NSTEMI and pneumonia/flu+ now s/p extubation with anticoagulants held due to thrombocytopenia: Refractory Thrombocytopenia Chronic Idiopathic Thrombocytopenia Purpura -hx of ITP with being on promacta in the past -must rule-out MAHA and TTP -platelets 23, manual platelets 50, latest INR 1.09 * total 7 unit PLT transfused with minimal response * 1 bag PLt's given today 07/28 -HIT antibody negative, MARCELO test negative, Negative IVONE and ANCA studies, direct bilirubin normal -obtain peripheral smear * 07/08/18 Peripheral smear shows no atypical cells or immature forms. Mild anisopoikilocytosis. No schistocytes. No PL clumping although markedly reduc ed. * 07/20/18 Neutrophils 96% lymphocytes 2% monocytes 2%; red blood cells are normocytic normochromic with mild anisocytosis; no schistocytes or nucleated red blood cells seen; platelets are markedly reduced; no clumping of platelets presents -received 5 days of IVIG 07/07/2018 - 07/11/2018 given -will give additional 2 days of IVIG started 07/24/18 80g infused via IV - completed course -start empiric treatment for ITP start dextromethasone 40mg iv qd for 5 days (started 07/20/18 - completed 07/24/18) -patient was previously on promacta outpatient - we will restart this medication now - told to bring in medication from home * promacta started on 07/22/18 - receiving crushed via tube feed * promacta stopped on 07/24/18 - no response * promacta re-started 07/30/18 being given thru feeding tube - this medication should be continued indefinitely -transfuse if <20 or actively bleeding -hold off on DVT chemoprophylaxis at this time, may resume of platelets >50 -stopped protonix and started on iv pepcid 20mg bid 07/21/17 as association with protonix and thrombocytopenia -It was desired to give patient NPlate today however pharmacy notified me that NPlate is not on formulary and we can't give it while patient is in-house Critical Illness Polyneuropathy -neurology consult for possible gullian barre * discussed with Dr Edis Mcdaniels, will give additional 2 days of IVIG started 07/24/18 80g infused via IV - completed course Dispo: arrangements are being made for transfer to LTAC - per nurse patient to leave today at 4PM
--- NOTE | 2018-07-30 12:49 | CP.PCM.PN ---
Subjective - Date & Time of Evaluation Date of Evaluation: 07/30/18 Time of Evaluation: 10:50 - Subjective Subjective: Still intubated but a little more awake today, still not moving his extremities, no fevers this morning but had fevers overnight. Objective - Vital Signs/Intake and Output Vital Signs (last 24 hours): Temp Pulse Resp BP Pulse Ox 100.8 F H 101 H 29 H 135/74 100 07/29/18 10:00 07/29/18 10:08 07/28/18 15:19 07/29/18 10:08 07/29/18 10:00 Intake and Output: 07/29/18 07/29/18 06:59 18:59 Intake Total 1233 44 Output Total 1000 Balance 233 44 - Medications Medications: Current Medications Acetaminophen (Tylenol 650mg/20.3ml Solution Ud) 650 mg PO Q6H PRN PRN Reason: Fever 101F Last Admin: 07/20/18 13:20 Dose: 650 mg Albuterol/Ipratropium (Duoneb 3 Mg/0.5 Mg (3 Ml) Ud) 3 ml IH [id number] [facility] Last Admin: 07/29/18 08:00 Dose: 3 ml Albuterol/Ipratropium (Duoneb 3 Mg/0.5 Mg (3 Ml) Ud) 3 ml IH Q2H PRN PRN Reason: Shortness of Breath Last Admin: 07/11/18 23:55 Dose: 3 ml Amino Acid Protein (Prostat 15 G Packet) 15 gm GT BID [facility] Daptomycin (Cubicin) 500 mg IV ONCE ONE; Protocol Stop: 07/29/18 12:01 Diltiazem HCl (Cardizem) 60 mg PO TID [facility] Last Admin: 07/29/18 10:08 Dose: 60 mg Propofol (Diprivan) 1,000 mg in 100 mls @ 2.545 mls/hr IV .Q24H PRN; Protocol PRN Reason: TITRATE PER MD ORDER Last Admin: 07/29/18 08:31 Dose: 15 mcg/kg/min, 7.634 mls/hr Meropenem/Sodium Chloride (Merrem Iv 500 Mg/Ns 50 Ml) 500 mg in 50 mls @ 100 mls/hr IVPB Q12 [facility]; Protocol Stop: 07/29/18 18:16 Last Admin: 07/29/18 10:45 Dose: 100 mls/hr Insulin Human Regular 100 (units/ Sodium Chloride) 100 mls @ 15 mls/hr IV .Q6H40M PRN; Protocol PRN Reason: TITRATE PER MD ORDER Last Titration: 07/26/18 08:35 Dose: 2 units/hr, 2 mls/hr Dobutamine HCl/Dextrose (Dobutamine/Dextrose 5% 500mg/250ml) 500 mg in 250 mls @ 12.791 mls/hr IV .[id number] PRN; Protocol PRN Reason: TITRATE PER PROTOCOL Last Titration: 07/29/18 09:08 Dose: 5 mcg/kg/min, 12.791 mls/hr Insulin Detemir (Levemir) 15 unit SC HS [facility] Insulin Human Lispro (Humalog High) 0 units SC Q4H [facility]; Protocol Last Admin: 07/29/18 11:38 Dose: 2 units - Labs Labs: 07/29/18 05:15 07/29/18 05:15 PT 12.5 SECONDS (9.4-12.5) 07/24/18 06:10 INR 1.09 07/24/18 06:10 APTT 18.7 Seconds (25.1-36.5) L 07/06/18 11:54 - Constitutional Appears: Chronically Ill, Other (intubated) - Head Exam Head Exam: NORMAL INSPECTION - ENT Exam Additional comments: ET tube in place - Respiratory Exam Respiratory Exam: Decreased Breath Sounds - Cardiovascular Exam Cardiovascular Exam: +S1, +S2 - GI/Abdominal Exam GI & Abdominal Exam: Soft. absent: Tenderness - Extremities Exam Additional comments: left arm PICC line in place Assessment and Plan - Assessment and Plan (Free Text) Assessment: Assessment new onset SIRS with VDRF, consider new onset sepsis due to right lower lobe aspiration hospital-acquired pneumonia, S/P treatment with antibiotics; new onset fever R/O bacteremia from PICC line, R/O drug fever thrombocytopenia probably ITP flaccid weakness of extremities consider critical illness polyneuropathy and myopathy S/P Severe sepsis with hypoxic respiratory failure and S/P ventilator-dependent respiratory failure and acute on chronic renal failure as well as thrombocytopenia due to severe right sided community-acquired pneumonia S/P viral infection with Influenza A in this patient with CVA significant and active smoking history COPD HTN DM peripheral vascular disease history of right elbow septic arthritis history of right upper extremity cellulitis Plan completed 8 days of Merrem - will continue to monitor for fevers; follow up repeat blood cx and he has been given a dose of IV Daptomycin; discussed with Dr. Burr - probable has critically ill- related myopathy and neuropathy - discussed with Dr. Martinez as well - one rare possibility is Guillain [place] Syndrome - as per Dr. Mcdaniels, patient is to be given IVIG - as per Neuro, it is still more likely critical-illness myopathy and neuropathy and less likely GBS, but regardless, IVIG may be beneficial for both and has now been given IVIG again patient continues to be in critical condition
[2018-07-30] MEDS: Acetaminophen 650mg/20.3ml solution UD PO PRN (13:37)
--- NOTE | 2018-07-30 13:53 | PN ---
DATE: 07/30/2018 CARDIOLOGY FOLLOWUP SUBJECTIVE: The patient remains on a ventilator despite being on IV ionotropic therapy. PHYSICAL EXAMINATION: VITAL SIGNS: Blood pressure 142/61, heart rate is in the 70s. NECK: Negative JVD. LUNGS: No rales are noted. HEART: Reveal S1, S2. EXTREMITIES: Without edema. LABORATORY DATA: Hemoglobin is 8.4. The platelet count is 22,000. Chemistries BUN is 56 and creatinine is 1.3. IMPRESSION: 1. Respiratory failure. 2. Dilated cardiomyopathy. 3. Non-ST elevation myocardial infarction. 4. Thrombocytopenia. 5. Coronary artery disease. 6. Anemia. Given these findings, the patient is hemodynamically stable despite not being able to wean the patient off the ventilator. The patient is being transferred to an LTAC today. Benjamin Saxena MD
--- NOTE | 2018-07-30 15:14 | RAD ---
Date of service: 07/30/2018 HISTORY: NG tube placement COMPARISON: Earlier same day FINDINGS: LUNGS: No active pulmonary disease. PLEURA: No significant pleural effusion identified, no pneumothorax apparent. CARDIOVASCULAR: Aortic calcification Normal cardiac size. No pulmonary vascular congestion. OSSEOUS STRUCTURES: No significant abnormalities. VISUALIZED UPPER ABDOMEN: Normal. OTHER FINDINGS: None. IMPRESSION: The nasogastric tube now terminates in the mid to distal esophagus. Previously it was seen within the stomach. The endotracheal tube is in satisfactory position
[2018-07-30 15:30] VITALS: BP 130/70; PULSE 82; TEMP 99.9
--- NOTE | 2018-07-30 20:24 | PN ---
DATE: 07/30/2018 SUBJECTIVE: The patient is seen lying in bed in the ICU. He remains unresponsive. Currently, his eyes are open, but he is not following any commands. He is not tracking. He has no response to deep pain either. Remains on mechanical ventilation. PHYSICAL EXAMINATION: GENERAL: Elderly male lying in bed in the ICU. VITAL SIGNS: Blood pressure 130/70, heart rate 82, respiratory rate 18 to 24, temperature 99.9. T-max is 99.9. HEENT: Normocephalic, atraumatic, positive pallor. NECK: Supple. No JVD. CARDIOPULMONARY: S1, S2, regular rate and rhythm, no murmur, no rub. LUNGS: Bilateral equal entry, bilateral equal expansion. ABDOMEN: Soft, nondistended, nontender, bowel sounds present. EXTREMITIES: No edema, chronic stasis changes. INTAKE AND OUTPUT: [id number]. LABORATORY DATA: WBC 9, hemoglobin 8.4, hematocrit 27, platelets 22. Sodium 142, potassium 4.8, chloride 116, CO2 25, BUN 56, creatinine 1.3, glucose 181, calcium 7.6, AST 67, ALT 65. Blood gas; pH 7.39, pCO2 37, CO2 187. CURRENT MEDICATIONS: Cardizem 60 t.i.d., off sedation currently, dobutamine 5 mcg per kilogram per minute, DuoNeb, insulin, Pro-Stat, Tylenol, meropenem discontinued yesterday. ASSESSMENT: 1. Multiorgan dysfunction, respiratory failure, critical illness, polyneuropathy. 2. Acute kidney injury, resolved. 3. Hypernatremia, resolved. 4. Hypokalemia resolved. 5. Congestive heart failure/cardiomyopathy/decreased ejection fraction, now compensated. 6. Atrial fibrillation, new onset this admission. 7. Evi-qbfiyga-atjhkdphq diabetes mellitus. 8. History of idiopathic thrombocytopenic purpura, history of severe thrombocytopenia, status post IVIG. 9. Malnutrition. 10. Ventilator dependent respiratory failure. PLAN: 1. Renal parameters back to baseline. 2. Continue Pro-Stat. 3. Continue tube feedings. 4. Monitor H&H. 5. No indication for platelet, transfusion or PRBC right now. 6. Remains critically ill, prognosis remains guarded. Case discussed with ICU residents, case discussed with ICU nursing staff. More than 25 minutes spent in the care of this patient with multiple illnesses. Bobbi Sullivan MD
[2018-07-31] MEDS ORDERED: PROMACTA 75 MG PO SCH (10:00)
== END 2018-07-30 16:16 | DRG 870 ==
LOC: ED 07:19 → ERH 10:26 → CCU 12:28 → ICU 07-08 02:00
PROVIDERS: ADMIT Internal Medicine; ATTEND Internal Medicine
PROC: 5A1955Z Respiratory Ventilation, Greater than 96 Consecutive Hours (ICD-10-PCS; principal; 2018-07-03)
PROC: 0BH17EZ Insertion of Endotracheal Airway into Trachea, Via Natural or Artificial Opening (ICD-10-PCS; 2018-07-03)
PROC: 6A550Z2 Pheresis of Platelets, Single (ICD-10-PCS; 2018-07-06)
PROC: 06HY33Z Insertion of Infusion Device into Lower Vein, Percutaneous Approach (ICD-10-PCS; 2018-07-07)
PROC: B54CZZA Ultrasonography of Left Lower Extremity Veins, Guidance (ICD-10-PCS; 2018-07-07)
PROC: 5A1D70Z Performance of Urinary Filtration, Intermittent, Less than 6 Hours Per Day (ICD-10-PCS; 2018-07-07)
PROC: 06HY33Z Insertion of Infusion Device into Lower Vein, Percutaneous Approach (ICD-10-PCS; 2018-07-09)
PROC: B54BZZA Ultrasonography of Right Lower Extremity Veins, Guidance (ICD-10-PCS; 2018-07-09)
PROC: 5A1D70Z Performance of Urinary Filtration, Intermittent, Less than 6 Hours Per Day (ICD-10-PCS; 2018-07-09)
PROC: 30233N1 Transfusion of Nonautologous Red Blood Cells into Peripheral Vein, Percutaneous Approach (ICD-10-PCS; 2018-07-10)
PROC: 5A1D70Z Performance of Urinary Filtration, Intermittent, Less than 6 Hours Per Day (ICD-10-PCS; 2018-07-11)
PROC: 5A1D70Z Performance of Urinary Filtration, Intermittent, Less than 6 Hours Per Day (ICD-10-PCS; 2018-07-14)
PROC: 5A1955Z Respiratory Ventilation, Greater than 96 Consecutive Hours (ICD-10-PCS; 2018-07-22)
PROC: 0BH18EZ Insertion of Endotracheal Airway into Trachea, Via Natural or Artificial Opening Endoscopic (ICD-10-PCS; 2018-07-22)
PROC: 02HV33Z Insertion of Infusion Device into Superior Vena Cava, Percutaneous Approach (ICD-10-PCS; 2018-07-22)
PROC: B548ZZA Ultrasonography of Superior Vena Cava, Guidance (ICD-10-PCS; 2018-07-22)
DX: A41.9 Sepsis, unspecified organism (principal); J10.00 Influenza due to other identified influenza virus with unspecified type of pneumonia; I21.4 Non-ST elevation (NSTEMI) myocardial infarction; R65.21 Severe sepsis with septic shock; N17.0 Acute kidney failure with tubular necrosis; J96.01 Acute respiratory failure with hypoxia; K72.00 Acute and subacute hepatic failure without coma; G82.50 Quadriplegia, unspecified; J69.0 Pneumonitis due to inhalation of food and vomit; E43 Unspecified severe protein-calorie malnutrition; G92 Toxic encephalopathy; I50.23 Acute on chronic systolic (congestive) heart failure; J96.21 Acute and chronic respiratory failure with hypoxia; E87.2 Acidosis; I13.0 Hypertensive heart and chronic kidney disease with heart failure and stage 1 through stage 4 chronic kidney disease, or unspecified chronic kidney disease; I42.0 Dilated cardiomyopathy; J44.1 Chronic obstructive pulmonary disease with (acute) exacerbation; J44.0 Chronic obstructive pulmonary disease with (acute) lower respiratory infection; D69.3 Immune thrombocytopenic purpura; Z99.11 Dependence on respirator [ventilator] status; E87.0 Hyperosmolality and hypernatremia; G62.81 Critical illness polyneuropathy; G72.81 Critical illness myopathy; L03.113 Cellulitis of right upper limb; M00.9 Pyogenic arthritis, unspecified; R18.8 Other ascites; E87.5 Hyperkalemia; D69.59 Other secondary thrombocytopenia; E11.51 Type 2 diabetes mellitus with diabetic peripheral angiopathy without gangrene; F17.210 Nicotine dependence, cigarettes, uncomplicated; I25.5 Ischemic cardiomyopathy; I27.20 Pulmonary hypertension, unspecified; E11.65 Type 2 diabetes mellitus with hyperglycemia; E11.22 Type 2 diabetes mellitus with diabetic chronic kidney disease; E11.621 Type 2 diabetes mellitus with foot ulcer; N18.3 Chronic kidney disease, stage 3 (moderate); R50.2 Drug induced fever; I25.10 Atherosclerotic heart disease of native coronary artery without angina pectoris; I48.0 Paroxysmal atrial fibrillation; D63.8 Anemia in other chronic diseases classified elsewhere; E11.42 Type 2 diabetes mellitus with diabetic polyneuropathy; E78.5 Hyperlipidemia, unspecified; E83.39 Other disorders of phosphorus metabolism; E86.0 Dehydration; E87.6 Hypokalemia; G25.81 Restless legs syndrome; I08.1 Rheumatic disorders of both mitral and tricuspid valves; I48.91 Unspecified atrial fibrillation; K21.9 Gastro-esophageal reflux disease without esophagitis; K76.0 Fatty (change of) liver, not elsewhere classified; L97.519 Non-pressure chronic ulcer of other part of right foot with unspecified severity; N28.1 Cyst of kidney, acquired; T38.0X5A Adverse effect of glucocorticoids and synthetic analogues, initial encounter; Z78.1 Physical restraint status; Z79.4 Long term (current) use of insulin; Z82.49 Family history of ischemic heart disease and other diseases of the circulatory system; Z83.3 Family history of diabetes mellitus; Z86.73 Personal history of transient ischemic attack (TIA), and cerebral infarction without residual deficits; Z91.19 Patient's noncompliance with other medical treatment and regimen; F41.9 Anxiety disorder, unspecified; M11.20 Other chondrocalcinosis, unspecified site

== ENCOUNTER 2018-11-14 18:13 | Inpatient (IN) | payer BC, MEDICARE ==
[2018-11-14 18:13] VITALS: PULSE 94
[2018-11-14] MEDS ORDERED: Pantoprazole 80 MG in Sodium Chloride 0.9% 100 ML IV STA (18:15)
[2018-11-14] MEDS ORDERED: NOREPINEPHRINE BIT/0.9 % NACL 4 MG/250 ML BAG IV PRN (18:18)
[2018-11-14] MEDS ORDERED: Sodium Chloride 0.9% 1,000 ML IV STA ×2 (18:18→18:55)
[2018-11-14 18:36] LABS: VENOUS BLOOD GAS BASE EXCESS -12.4 mmol/L (0.0-2.0); VENOUS BLOOD GAS PO2 98 mm/Hg (30-55); VENOUS BLOOD PH 7.17 (7.32-7.43)
[2018-11-14 18:39] LABS: BASO # 0.07 K/mm3 (0.0-2.0); BASO % 0.4 % (0.0-3.0); EOS # 0.1 (0.0-0.7); EOS % 0.6 % (1.5-5.0); HEMOGLOBIN 9.1 g/dL (14.0-18.0); LYMPH # 2.4 (1.2-3.4); LYMPH % 12.3 % (22.0-35.0); MEAN CELL VOLUME 86.3 fl (80.0-105.0); MEAN CORPUSCULAR HEMOGLOBIN 25.9 pg (25.0-35.0); MEAN PLATELET VOLUME 11.3 fl (7.0-11.0); MONO # 1.1 (0.1-0.6); MONO % 5.6 % (1.0-6.0); RBC 3.51 10^6/uL (3.5-6.1); RED CELL DISTRIBUTION WIDTH 16.2 % (11.5-14.5); WHITE BLOOD COUNT 19.1 10^3/uL (4.5-11.0)
[2018-11-14] MEDS: Sodium Chloride 0.9% 1,000 ML IV STA ×3 (18:40→18:59)
[2018-11-14 18:45] LABS: INR 1.3; PARTIAL THROMBOPLASTIN TIME 30.7 Seconds (26.9-38.3); PROTHROMBIN TIME 14.4 SECONDS (9.4-12.5)
[2018-11-14] MEDS ORDERED: Pantoprazole 40mg/100mL NS 40 MG/100 ML BAG IV ONE (18:45)
[2018-11-14 18:50] LABS: ALB/GLOB RATIO 0.8 (1.1-1.8); ALBUMIN 3.3 g/dL (3.0-4.8); ALT/SGPT 20 U/L (7-56); AMYLASE 54 U/L (35-125); AST/SGOT 121 U/L (17-59); BLOOD UREA NITROGEN 31 mg/dL (7-21); CALCIUM 8.8 mg/dL (8.4-10.5); GFR NON-AFRICAN AMERICAN 56; LIPASE 74 U/L (23-300)
--- NOTE | 2018-11-14 18:52 | ED PDOC ---
Arrival/HPI - General Chief Complaint: Cardiac Arrest Time Seen by Provider: 11/14/18 18:15 Historian: Patient EM Caveat: Intubated - History of Present Illness Narrative History of Present Illness (Text): 11/14/18 18:52 A 63 year old male, whose past medical history includes COPD, Hypertension, low platelet count, diabetes, CHF, GI bleed, hyperlipidemia, and 2 hernia repairs, is brought in by EMS after he was found unresponsive and possibly seizing. As per daughter in law patient was yelling for help and then when they went to the room he was found convulsing and not breathing well. EMS found him pulseless when EMS arrived. EMS intubated patient and gave him Amiodorone, shock x1 and epi. He also was given Versed because he was moving post intubation. Daughter in law also notes that patient was discharged a few days ago from rehab for recovery from septic shock. Patient was improving until today. She denies patient's drug or alcohol use. No trauma. PMD: Dr. Harvinder Martinez. 11/14/18 20:11 Time/Duration: Prior to Arrival Past Medical History - Provider Review Nursing Documentation Reviewed: Yes - Infectious Disease Hx of Infectious Diseases: None - Cardiac Hx Hypertension: Yes Hx Pacemaker: No - Pulmonary Hx Respiratory Disorders: No - Neurological Hx Neurological Disorder: Yes Other/Comment: Neuropathy bilat. foot. - HEENT Hx HEENT Disorder: No - Renal Hx Renal Disorder: No Hx Dialysis: Yes (due to septic shock) - Endocrine/Metabolic Hx Diabetes Mellitus Type 2: Yes - Hematological/Oncological Hx Cancer: No Other/Comment: ITP - Integumentary Other/Comment: right elbow red swollen warm to touch just started 01/17/16. pt hit elbow in work getting a pot, developed staph infection, picc line in for iv abx finished january 06, now elbow is getting red and swollen again. when pt came to er back in november for r elbow injury developed allergic reaction hives throat closed swollen eyes and lips. Pt does not know what from. pt sustained a 2nd degree burn 2016 at work to right forearm which is healed - Musculoskeletal/Rheumatological Hx Musculoskeletal Disorders: No - Gastrointestinal Hx Gastrointestinal Disorders: Yes (RECTAL BLEED 11-29-16 DX DIVERTICULITIS) Hx Diverticulitis: Yes Other/Comment: G-tube - Genitourinary/Gynecological Hx Genitourinary Disorders: No - Psychiatric Hx Psychophysiologic Disorder: No Hx Substance Use: No - Surgical History Hx Mastectomy: No - Anesthesia Hx Anesthesia: Yes Hx Anesthesia Reactions: No Hx Malignant Hyperthermia: No Family/Social History - Physician Review Nursing Documentation Reviewed: Yes Family/Social History: Unknown Family HX Smoking Status: Heavy Smoker > 10 Cigarettes Daily Hx Alcohol Use: No (occasional) Hx Substance Use: No Allergies/Home Meds Allergies/Adverse Reactions: Allergies nut Allergy (Uncoded 11/14/18 18:19) RASH fruit Adverse Reaction (Uncoded 11/14/18 18:19) RASH Home Medications: Home Meds Medication Instructions Recorded Confirmed MetFORMIN [glucoPHAGE] 500 mg PO DAILY 11/26/15 11/14/18 Digoxin 125 mcg PO DAILY 11/14/18 11/14/18 Eltrombopag Olamine [Promacta] 75 mg PO DAILY 11/14/18 11/14/18 Famotidine [Pepcid] 20 mg PO HS 11/14/18 11/14/18 Ferrous Sulfate [Feosol] 325 mg PO BID 11/14/18 11/14/18 Metoprolol Tartrate [Lopressor] 12.5 mg PO Q12 11/14/18 11/14/18 SITagliptin [Januvia] 50 mg PO DAILY 11/14/18 11/14/18 diltiaZEM [Cardizem] 90 mg PO Q6 11/14/18 11/14/18 Review of Systems - Review of Systems Systems not reviewed;Unavailable: Intubated Physical Exam Vital Signs Reviewed: Yes Vital Signs Pulse Resp BP Pulse Ox 11/14/18 18:39 86 18 92/62 L 100 11/14/18 18:15 87 108/56 L 100 Temperature: Afebrile Blood Pressure: Hypotensive Pulse: Regular Respiratory Rate: Mechanically Ventilated Appearance: Positive for: Ill-Appearing Pain Distress: None Mental Status: Positive for: Comatose - Systems Exam Head: Present: Atraumatic, Normocephalic Pupils: Present: Other (3mm, reactive) Conjunctiva: Present: Normal Mouth: Present: Moist Mucous Membranes Neck: Present: Normal Range of Motion Respiratory/Chest: Present: Clear to Auscultation, Good Air Exchange. No: Respiratory Distress, Accessory Muscle Use Cardiovascular: Present: Regular Rate and Rhythm, Normal S1, S2. No: Murmurs Abdomen: No: Tenderness Rectal: Present: Other (Guaiac +, black stools. GI bleed. ITPE.) Back: Present: Normal Inspection Upper Extremity: Present: Normal Inspection. No: Cyanosis, Edema Lower Extremity: Present: Normal Inspection. No: Edema Neurological: Present: Other (sedated; no moving extremities) Skin: Present: Warm, Dry, Pale. No: Rashes Psychiatric: Present: Lethargic Medical Decision Making ED Course and Treatment: 11/14/18 19:00 Impression: A 63 year old male who was brought in by EMS s/p cardiac arrest; possible seizure; They gave Epi x 1, Shocked x 1, Amiodarone and Versed. ET tube confirmed by me on arrival. Breathe sounds equal b/l with good tube condensation . Differential Diagnosis included but are not limited to: Septic Shock r/o Seizure r/o Cardiac; r/o GI Bleed Plan: -- Labs -- VBG -- EKG -- Chest X-Ray -- Norepinephrine -- Zofran injection -- Protonix injection -- IV Fluids -- Blood Culture -- Urine Culture -- Rapid Flu A/B -- Procalcitonin serum -- Urinalysis -- Reassess and disposition Prior Visits: Notes and results from previous visits were reviewed. Patient was last seen in the emergency department on Progress Notes: PROCEDURE: CENTRAL LINE PLACEMENT Performed by the emergency provider, Time: 6:50 Consent: Emergently placed. Timeout: A timeout to verify the correct patient, procedure, and site was performed. Indication: Septic Shock needing IVF and pressurer Anesthesia: Local anesthesia not used and not indicated Skin Preparation: Hand hygiene performed prior to central venous catheter insertion. Sterile field, sterile drape, sterile technique, and cap and gown were used. The area was cleansed with 2% Chlorhexidine. Patient position: supine Location: Right femoral Ultrasound guidance: YES Technique: The landmarks for the line placement were identified. The vessel was cannulated and a non-tunneled 7.0 Fr triple lumen was placed using the Seldinger technique. Successful placement: Yes. Line sutured with silk and appropriate dressing applied. Assessment: Good patency and blood return through all three lumens. The ports were appropriately flushed. See post procedure X-Ray interpretation. Post-procedure: Patient tolerated the procedure well with no immediate complications. 11/14/18 19:12 CXR showed no infiltrate. ETT in place. NGT and oliveros ordered. 2L IV fluids given via peripheral line, then converted to central line. Patient's labs showed elevated WBC and LA so most likely septic shock, code sepsis was called. Patient also had a dark bowel movement that was guiac positive. who is now at bedside says that he's having dark stools for a couple of days. Will transfuse blood considering nature of hypotension and large dark bowel movement. Hgb 9. 11/14/18 19:34 Case signed out to ICU as400 programmer analyst, Dr. Pruitt who accept's patient under critical care admission. Also discussed with the ICU resident. Also discussed the case with Dr. Martinez who is aware of admission. We agreed to add a CT head which the ICU will f/u. 11/14/18 19:52 EKG: Irregular rhythm, RBBB. Left posterior fascicular block. 11/14/18 19:[address] Johnson (cardiology) who agrees with ED's care plan. No additional medication added at this time. Consent obtained for blood transfusion from and signed by me and RN currently taking care of patient. - Critical Care Critical Care Minutes: 60 minutes Narrative Critical Care (Text): 11/14/18 19:01 Critical Care: Patient was seen immediately on arrival because of high probability of imminent or life threatening deterioration in patient's condition. Initial assessment, history, and exam were done. Information was taken from transport personnel. Patient was observed at bedside for initial response to treatment. Patient was re-evaluated and observed at bedside for subsequent response to continuing treatment multiple times. Lab tests were reviewed. X-Rays were reviewed. Computer monitor was checked for vital sign trends and cardiac rhythm. Records and documentation completed. - Lab Interpretations Lab Results: pO2 98 mm/Hg (30-55) H 11/14/18 18:19 VBG pH 7.17 (7.32-7.43) L* 11/14/18 18:19 VBG pCO2 43.0 (40-60) 11/14/18 18: VBG HCO3 15.7 mmol/l (21-28) L 11/14/18 18:19 VBG Total CO2 17.0 mmol.L (22-28) L 11/14/18 18:19 VBG O2 Sat (Calc) 97.6 % (40-65) H 11/14/18 18:19 VBG Base Excess -12.4 mmol/L (0.0-2.0) L 11/14/18 18: VBG Potassium 4.6 mmol/L (3.6-5.2) 11/14/18 18:19 Sodium 139.0 mmol/L (132-148) 11/14/18 18: Chloride 108.0 mmol/L (98-107) H 11/14/18 18:19 Glucose 324 mg/dl (75-110) H 11/14/18 18:19 Lactate 5.8 mmol/L (0.7-2.1) H* 11/14/18 18: FiO2 21.0 % 11/14/18 18:19 Crit Value Called To Silverio rockwell 11/14/18 18: Crit Value Called By Atc 11/14/18 18: Blood Gas Notified Time 1835 11/14/18 18: PT 14.4 SECONDS (9.4-12.5) H 11/14/18 18:19 INR 1.30 11/14/18 18: APTT 30.7 Seconds (26.9-38.3) 11/14/18 18: Total Bilirubin 0.4 mg/dL (0.2-1.3) 11/14/18 18:19 AST 121 U/L (17-59) H D 11/14/18 18: ALT 20 U/L (7-56) 11/14/18 18: Alkaline Phosphatase 110 U/L (38-126) 11/14/18 18:19 Total Protein 7.3 g/dL (5.8-8.3) 11/14/18 18: Albumin 3.3 g/dL (3.0-4.8) 11/14/18 18: Globulin 4.0 gm/dL 11/14/18 18: Albumin/Globulin Ratio 0.8 (1.1-1.8) L 11/14/18 18:19 Amylase 54 U/L (35-125) 11/14/18 18: Lipase 74 U/L (23-300) 11/14/18 18:19 - RAD Interpretation Radiology Orders: 11/14/18 18:15 CHEST PORTABLE [RAD] Stat - Medication Orders Current Medication Orders: Sodium Chloride (Sodium Chloride 0.9%) 1,000 mls @ 999 mls/hr IV .Q1H1M STA Stop: 11/14/18 19:17 Last Admin: 11/14/18 18:40 Dose: 999 mls/hr eMAR Start Stop Document 11/14/18 18:40 GMI (Rec: 11/14/18 18:40 GMI [id number]) Intravenous Solution Start Date 11/14/18 Start Time 18:40 End Date 11/14/18 End time 18:40 Total Infusion Time 0 Sodium Chloride (Sodium Chloride 0.9%) 1,000 mls @ 999 mls/hr IV .Q1H1M STA Stop: 11/14/18 19:18 NOREPINEPHRINE BIT/0.9 % NACL (Levophed 4 Mg/ 250 Ml Ns Premixed) 4 mg in 250 mls @ 15 mls/hr IV .[id number] PRN; Protocol PRN Reason: TITRATE PER MD ORDER Last Admin: 11/14/18 18:41 Dose: 15 mls/hr eMAR Start Stop Document 11/14/18 18:41 GMI (Rec: 11/14/18 18:42 GMI [id number]) Intravenous Solution Start Date 11/14/18 Start Time 18:42 Pantoprazole Sodium (Protonix 40mg Ivpb) 40 mg in 100 mls @ 20 mls/hr IV .Q5H ONE Stop: 11/14/18 23:44 Discontinued Medications Pantoprazole Sodium 80 mg/ (Sodium Chloride) 100 mls @ 10 mls/hr IV .Q10H STA Stop: 11/15/18 04:14 Ondansetron HCl (Zofran Inj) 4 mg IVP STAT STA Stop: 11/14/18 18:16 Pantoprazole Sodium (Protonix Inj) 80 mg IVP STAT STA Stop: 11/14/18 18:16 - Scribe Statement The provider has reviewed the documentation as recorded by the [facility] Provider Scribe Attestation: All medical record entries made by the Scribe were at my direction and personally dictated by me. I have reviewed the chart and agree that the record accurately reflects my personal performance of the history, physical exam, medical decision making, and the department course for this patient. I have also personally directed, reviewed, and agree with the discharge instructions and disposition. Disposition/Present on Arrival - Present on Arrival Any Indicators Present on Arrival: Yes History of DVT/PE: No History of Uncontrolled Diabetes: Yes Urinary Catheter: No History of Decub. Ulcer: No History Surgical Site Infection Following: None - Disposition Have Diagnosis and Disposition been Completed?: Yes Diagnosis: Septic shock, GI bleed, Hyperglycemia, Seizure Disposition: HOSPITALIZED Disposition Time: 19:12 Patient Plan: Admission Condition: FAIR
[2018-11-14] MEDS ORDERED: Piperacill/Tazo 4.5gm in NS 4.5 GM/100 ML BAG IVPB STA (18:53)
[2018-11-14] MEDS ORDERED: Vancomycin 1.5 GM in Sodium Chloride 0.9% 500 ML IVPB ONE (18:53)
[2018-11-14 19:18] LABS: CK MB% 5.2 % (2.5-3.0); CK-MB 17.1 ng/mL (0.0-3.6)
[2018-11-14 19:47] LABS: PH,URINE 6.5 (4.7-8.0); URINE APPEARANCE SLIGHT-CLOUDY (CLEAR); URINE BILIRUBIN NEGATIVE (NEGATIVE); URINE BLOOD TRACE-LYSED (NEGATIVE); URINE COLOR YELLOW (YELLOW); URINE GLUCOSE (UA) NEGATIVE (NEGATIVE); URINE LEUKOCYTE ESTERASE LARGE Leu/uL (NEGATIVE); URINE PROTEIN 30 mg/dL (<30 mg/dL); URINE UROBILINOGEN 0.2 E.U./dL (<1 E.U./dL)
[2018-11-14 19:54] LABS: URINE BACTERIA TRACE /hpf; URINE WBC TNTC /hpf (0-6)
[2018-11-14 20:18] LABS: ARTERIAL BLOOD GAS HEMOGLOBIN 6.9 g/dL (11.7-17.4); ARTERIAL BLOOD GAS O2 CAPACITY 10.8 mL/dl (16-24); ARTERIAL BLOOD GAS O2 CONTENT 10.8 ML/dl (15-23); ARTERIAL BLOOD GAS O2 SAT 99.8 % (95-98); ARTERIAL BLOOD GAS PCO2 29 mm/Hg (35-45); ARTERIAL BLOOD GAS PH 7.35 (7.35-7.45); ARTERIAL BLOOD GAS TCO2 16.9 mmol.L (22-28)
[2018-11-14] MEDS: Sodium Chloride 0.9% 1,000 ML IV SCH (20:29)
--- NOTE | 2018-11-14 20:56 | CP.PCM.CON ---
<Jl Demarco - Last Filed: 11/15/18 04:23> History of Present Illness - History of Present Illness History of Present Illness: ICU Consult note Patient is a 63 M with a past medical history of severely dilated cardiomyopathy EF 14%, moderate pulmonary hypertension, paroxysmal atrial fibrillation, ITP normocytic anemia, DM II, hypertension, pseudogout, anxiety who presents to the ED s/p cardiac rest. Due to patient being intubated history was limited and t herefor obtained by . of patient states patient yelled out "help" in his room around 5 pm. The of the patient ran into the room and states she couldn't feel a heartbeat and called her EMS and son who began to do CPR. Upon arrival of EMS patient was found to be in ventricular fibrillation; patient was shocked, given 1 round of amiodarone and epinephrine. Patient was intubated on the field for airway protection. As per family patient was recently discharged from subacute rehab 2 days prior. Patient had been doing well in rehab as per family and while at home had no complaints aside from dark stools which patient had attributed to iron supplementation. At the time however he admitted to no bloody bowel movements as per family. PMHx COPD, active smoker 1 pack per day, hypertension, NIDDM, PVD PSHx NONE Meds as per EMR Allergies: Nut, fruit Social hx from previous records states patient smokes 1ppd for 40 years, previously denied alcohol or drug use ROS limited due to patient being intubated Review of Systems - Review of Systems Systems not reviewed;Unavailable: Intubated Past Patient History - Infectious Disease Hx of Infectious Diseases: None - Past Social History Smoking Status: Heavy Smoker > 10 Cigarettes Daily - CARDIAC Hx Hypertension: Yes Hx Pacemaker: No - PULMONARY Hx Respiratory Disorders: No - NEUROLOGICAL Hx Neurological Disorder: Yes Other/Comment: Neuropathy bilat. foot. - HEENT Hx HEENT Problems: No - RENAL Hx Chronic Kidney Disease: No Hx Dialysis: Yes (due to septic shock) - ENDOCRINE/METABOLIC Hx Diabetes Mellitus Type 2: Yes - HEMATOLOGICAL/ONCOLOGICAL Hx Cancer: No Other/Comment: ITP - INTEGUMENTARY Other/Comment: right elbow red swollen warm to touch just started 01/17/16. pt hit elbow in work getting a pot, developed staph infection, picc line in for iv abx finished january 06, now elbow is getting red and swollen again. when pt came to er back in november for r elbow injury developed allergic reaction hives throat closed swollen eyes and lips. Pt does not know what from. pt sustained a 2nd degree burn 2016 at work to right forearm which is healed - MUSCULOSKELETAL/RHEUMATOLOGICAL Hx Musculoskeletal Disorders: No - GASTROINTESTINAL Hx Gastrointestinal Disorders: Yes (RECTAL BLEED 11-29- DX DIVERTICULITIS) Hx Diverticulitis: Yes Other/Comment: G-tube - GENITOURINARY/GYNECOLOGICAL Hx Genitourinary Disorders: No - PSYCHIATRIC Hx Psychophysiologic Disorder: No Hx Substance Use: No - SURGICAL HISTORY Hx Mastectomy: No - ANESTHESIA Hx Anesthesia: Yes Hx Anesthesia Reactions: No Hx Malignant Hyperthermia: No Meds Allergies/Adverse Reactions: Allergies Allergy/AdvReac Type Severity Reaction Status Date / Time nut Allergy RASH Uncoded 11/14/18 18:19 fruit AdvReac RASH Uncoded 11/14/18 18:19 - Medications Medications: Current Medications NOREPINEPHRINE BIT/0.9 % NACL (Levophed 4 Mg/ 250 Ml Ns Premixed) 4 mg in 250 mls @ 15 mls/hr IV .[id number] PRN; Protocol PRN Reason: TITRATE PER MD ORDER Last Admin: 11/14/18 18:41 Dose: 15 mls/hr Pantoprazole Sodium (Protonix 40mg Ivpb) 40 mg in 100 mls @ 20 mls/hr IV .Q5H ONE Stop: 11/14/18 23:44 Last Admin: 11/14/18 18:51 Dose: 20 mls/hr Vancomycin HCl 1.5 gm/ Sodium (Chloride) 500 mls @ 167 mls/hr IVPB ONCE ONE; Protocol Stop: 11/14/18 21:52 Last Admin: 11/14/18 20:20 Dose: 167 mls/hr Sodium Chloride (Sodium Chloride 0.9%) 1,000 mls @ 100 mls/hr IV .Q10H JHON Last Admin: 11/14/18 20:29 Dose: 100 mls/hr Physical Exam - Constitutional Additional comments: intubated and sedated - Neck Exam Neck exam: Negative for: Normal Inspection Additional comments: mid neck scar - Respiratory Exam Respiratory Exam: Clear to Auscultation Bilateral - Cardiovascular Exam Cardiovascular Exam: +S1, +S2. absent: REGULAR RHYTHM - GI/Abdominal Exam GI & Abdominal Exam: Normal Bowel Sounds. absent: Distended - Skin Skin Exam: Normal Color, Warm Results - Vital Signs Recent Vital Signs: Last Vital Signs Temp 97.9 F 11/14/18 19:11 Pulse 90 11/14/18 20:22 Resp 16 11/14/18 20:22 BP 121/62 11/14/18 20:22 Pulse Ox 100 11/14/18 20:22 - Labs Result Diagrams: 11/15/18 02:00 11/14/18 18:19 Labs: Laboratory Results - last 24 hr 11/14/18 11/14/18 11/14/18 18:19 18:19 18:19 WBC 19.1 H D RBC 3.51 Hgb 9.1 L Hct 30.3 L MCV 86.3 MCH 25.9 MCHC 30.0 L RDW 16.2 H Plt Count 341 MPV 11.3 H Neut % (Auto) 81.1 H Lymph % (Auto) 12.3 L [place] % (Auto) 5.6 Eos % (Auto) 0.6 L Baso % (Auto) 0.4 Lymph # (Auto) 2.4 [place] # (Auto) 1.1 H Eos # (Auto) 0.1 Baso # (Auto) 0.07 Absolute Neuts (auto) 15.49 H PT 14.4 H INR 1.30 APTT 30.7 pCO2 pO2 HCO3 ABG pH ABG Total CO2 ABG O2 Saturation ABG O2 Content ABG Base Excess ABG Hemoglobin ABG Carboxyhemoglobin POC ABG HHb (Measured) ABG Methemoglobin ABG O2 Capacity VBG pH VBG pCO2 VBG HCO3 VBG Total CO2 VBG O2 Sat (Calc) VBG Base Excess VBG Potassium Hgb O2 Saturation Sodium 139 Chloride 107 Glucose Lactate FiO2 Crit Value Called To Crit Value Called By Blood Gas Notified Time Potassium 4.5 Carbon Dioxide 20 L Anion Gap 16 BUN 31 H Creatinine 1.3 Est GFR ( Amer) > 60 Est GFR (Non-Af Amer) 56 Random Glucose 315 H* D Calcium 8.8 Total Bilirubin 0.4 AST 121 H D ALT 20 Alkaline Phosphatase 110 Lactate Dehydrogenase 1830 H Total Creatine Kinase 327 H CK-MB (CK-2) 17.1 H CK-MB (CK-2) % 5.2 H Troponin I 25.80 H* D NT-Pro-B Natriuret Pep Total Protein 7.3 Albumin 3.3 Globulin 4.0 Albumin/Globulin Ratio 0.8 L Amylase 54 Lipase 74 Venous Blood Potassium Urine Color Urine Appearance Urine pH Ur Specific [place] Urine Protein Urine Glucose (UA) Urine Ketones Urine Blood Urine Nitrate Urine Bilirubin Urine Urobilinogen Ur Leukocyte Esterase Urine RBC Urine WBC Ur Epithelial Cells Urine Bacteria Digoxin Influenza Typ A,B (EIA) Blood Type Antibody Screen Crossmatch BBK History Checked 11/14/18 11/14/18 11/14/18 18:19 18:19 18:40 WBC RBC Hgb Hct MCV MCH MCHC RDW Plt Count MPV Neut % (Auto) Lymph % (Auto) [place] % (Auto) Eos % (Auto) Baso % (Auto) Lymph # (Auto) [place] # (Auto) Eos # (Auto) Baso # (Auto) Absolute Neuts (auto) PT INR APTT pCO2 pO2 98 H HCO3 ABG pH ABG Total CO2 ABG O2 Saturation ABG O2 Content ABG Base Excess ABG Hemoglobin ABG Carboxyhemoglobin POC ABG HHb (Measured) ABG Methemoglobin ABG O2 Capacity VBG pH 7.17 L* VBG pCO2 43.0 VBG HCO3 15.7 L VBG Total CO2 17.0 L VBG O2 Sat (Calc) 97.6 H VBG Base Excess -12.4 L VBG Potassium 4.6 Hgb O2 Saturation Sodium 139.0 Chloride 108.0 H Glucose 324 H Lactate 5.8 H* FiO2 21.0 Crit Value Called To Silverio rockwell Crit Value Called By Atc Blood Gas Notified Time 1835 Potassium Carbon Dioxide Anion Gap BUN Creatinine Est GFR ( Amer) Est GFR (Non-Af Amer) Random Glucose Calcium Total Bilirubin AST ALT Alkaline Phosphatase Lactate Dehydrogenase Total Creatine Kinase CK-MB (CK-2) CK-MB (CK-2) % Troponin I NT-Pro-B Natriuret Pep 94926 H Total Protein Albumin Globulin Albumin/Globulin Ratio Amylase Lipase Venous Blood Potassium 4.6 Urine Color Urine Appearance Urine pH Ur Specific [place] Urine Protein Urine Glucose (UA) Urine Ketones Urine Blood Urine Nitrate Urine Bilirubin Urine Urobilinogen Ur Leukocyte Esterase Urine RBC Urine WBC Ur Epithelial Cells Urine Bacteria Digoxin Influenza Typ A,B (EIA) Blood Type O POSITIVE Antibody Screen Negative Crossmatch See Detail BBK History Checked Patient has bt 11/14/18 11/14/18 11/14/18 18:40 19:00 19:40 WBC RBC Hgb Hct MCV MCH MCHC RDW Plt Count MPV Neut % (Auto) Lymph % (Auto) [place] % (Auto) Eos % (Auto) Baso % (Auto) Lymph # (Auto) [place] # (Auto) Eos # (Auto) Baso # (Auto) Absolute Neuts (auto) PT INR APTT pCO2 pO2 HCO3 ABG pH ABG Total CO2 ABG O2 Saturation ABG O2 Content ABG Base Excess ABG Hemoglobin ABG Carboxyhemoglobin POC ABG HHb (Measured) ABG Methemoglobin ABG O2 Capacity VBG pH VBG pCO2 VBG HCO3 VBG Total CO2 VBG O2 Sat (Calc) VBG Base Excess VBG Potassium Hgb O2 Saturation Sodium Chloride Glucose Lactate FiO2 Crit Value Called To Crit Value Called By Blood Gas Notified Time Potassium Carbon Dioxide Anion Gap BUN Creatinine Est GFR ( Amer) Est GFR (Non-Af Amer) Random Glucose Calcium Total Bilirubin AST ALT Alkaline Phosphatase Lactate Dehydrogenase Total Creatine Kinase CK-MB (CK-2) CK-MB (CK-2) % Troponin I NT-Pro-B Natriuret Pep Total Protein Albumin Globulin Albumin/Globulin Ratio Amylase Lipase Venous Blood Potassium Urine Color Yellow Urine Appearance Slight-cloudy Urine pH 6.5 Ur Specific [place] 1.010 Urine Protein 30 H Urine Glucose (UA) Negative Urine Ketones Negative Urine Blood Trace-lysed H Urine Nitrate Negative Urine Bilirubin Negative Urine Urobilinogen 0.2 Ur Leukocyte Esterase Large H Urine RBC 1 - 3 H Urine WBC Tntc H Ur Epithelial Cells None Urine Bacteria Trace Digoxin 0.9 Influenza Typ A,B (EIA) Negative for flu a/b Blood Type Antibody Screen Crossmatch BBK History Checked 11/14/18 20:12 WBC RBC Hgb Hct MCV MCH MCHC RDW Plt Count MPV Neut % (Auto) Lymph % (Auto) [place] % (Auto) Eos % (Auto) Baso % (Auto) Lymph # (Auto) [place] # (Auto) Eos # (Auto) Baso # (Auto) Absolute Neuts (auto) PT INR APTT pCO2 29 L pO2 442.0 H HCO3 16.0 L ABG pH 7.35 ABG Total CO2 16.9 L ABG O2 Saturation 99.8 H ABG O2 Content 10.8 L ABG Base Excess -8.7 L ABG Hemoglobin 6.9 L ABG Carboxyhemoglobin 1.2 POC ABG HHb (Measured) 0.2 ABG Methemoglobin 0.9 ABG O2 Capacity 10.8 L VBG pH VBG pCO2 VBG HCO3 VBG Total CO2 VBG O2 Sat (Calc) VBG Base Excess VBG Potassium Hgb O2 Saturation 97.7 Sodium Chloride Glucose Lactate FiO2 100.0 Crit Value Called To Crit Value Called By Blood Gas Notified Time Potassium Carbon Dioxide Anion Gap BUN Creatinine Est GFR ( Amer) Est GFR (Non-Af Amer) Random Glucose Calcium Total Bilirubin AST ALT Alkaline Phosphatase Lactate Dehydrogenase Total Creatine Kinase CK-MB (CK-2) CK-MB (CK-2) % Troponin I NT-Pro-B Natriuret Pep Total Protein Albumin Globulin Albumin/Globulin Ratio Amylase Lipase Venous Blood Potassium Urine Color Urine Appearance Urine pH Ur Specific [place] Urine Protein Urine Glucose (UA) Urine Ketones Urine Blood Urine Nitrate Urine Bilirubin Urine Urobilinogen Ur Leukocyte Esterase Urine RBC Urine WBC Ur Epithelial Cells Urine Bacteria Digoxin Influenza Typ A,B (EIA) Blood Type Antibody Screen Crossmatch BBK History Checked Assessment & Plan - Assessment and Plan (Free Text) Assessment: Neurologic -Patient intubated and not sedated -Neurology consulted for AMS -CT head shows no acute infarcts, reveals possible previous infarcts Cardiovascular -Maintain MAP>65; patient was initially on levophed due to hypotension however currently off levophed, SBP 140s -Will restart home med diltiazem for atrial fibrillation -Will hold off on anticoagulation for now due to possible GI bleed; to be evaluated by GI in morning -S/P cardiac arrest; troponin 25.80, 25.40 -BNP 22,500 -Cardiology consulted Pulmonary -Maintain O2 sat >95% -Currently on PRVC: FiO2 60%, PEEP 5, RR 14, TV 400 -Reepeat ABG and CXR in morning -Pulmonology consulted Renal -Maintain euvolemia -Monitor I&O -Replete electrolytes as needed Gastrintestinal -Protonix drip -Zofran for n/v -Gastrotenterology consulted Infectious Disease -UA shows large Leukocyte esterase, Urine WBC Tntc, negative nitrate -ID consulted, patient currently on Doxycycline, Vancomycin, Zosyn Hematological -2 PRBC given -Continue H&H q4; Hg currently 7.8 from 9.1 on admission -GI consulted -NPO Endocrine -Maintain euvolemia, euthermia, euglycemia <Carol Pruitt - Last Filed: 11/15/18 05:10> Meds - Medications Medications: Current Medications Digoxin (Digoxin) 0.125 mg PO 1400 JHON Diltiazem HCl (Cardizem) 90 mg PO Q6 JHON Last Admin: 11/15/18 03:59 Dose: 90 mg NOREPINEPHRINE BIT/0.9 % NACL (Levophed 4 Mg/ 250 Ml Ns Premixed) 4 mg in 250 mls @ 15 mls/hr IV .[id number] PRN; Protocol PRN Reason: TITRATE PER MD ORDER Last Titration: 11/14/18 23:11 Dose: 0 mcg/min, 0 mls/hr Sodium Chloride (Sodium Chloride 0.9%) 1,000 mls @ 100 mls/hr IV .Q10H JHON Last Admin: 11/14/18 20:29 Dose: 100 mls/hr Piperacillin Sod/Tazobactam Sod (Zosyn 3.375 In Ns 100ml) 100 mls @ 25 mls/hr IVPB Q12 JHON; Protocol Stop: 11/23/18 22:01 Last Admin: 11/14/18 23:00 Dose: 25 mls/hr Vancomycin HCl (Vancomycin 1gm) 1 gm in 250 mls @ 167 mls/hr IVPB DAILY JHON; Protocol Stop: 11/23/18 10:01 Doxycycline Hyclate 100 mg/ (Sodium Chloride) 100 mls @ 100 mls/hr IVPB Q12 JHON; Protocol Stop: 11/22/18 22:01 Last Admin: 11/14/18 22:11 Dose: 100 mls/hr Pantoprazole Sodium (Protonix 40mg Ivpb) 40 mg in 100 mls @ 20 mls/hr IVPB .Q5H JHON Last Admin: 11/15/18 05:00 Dose: 20 mls/hr Ondansetron HCl (Zofran Inj) 4 mg IVP Q6H PRN PRN Reason: Nausea/Vomiting Last Admin: 11/15/18 05:03 Dose: 4 mg Results - Vital Signs Recent Vital Signs: Last Vital Signs Temp 100.2 F H 11/15/18 04:45 Pulse 122 H 11/15/18 04:45 Resp 25 H 11/15/18 02:00 BP 128/78 11/15/18 04:45 Pulse Ox 100 11/15/18 04:45 - Labs Result Diagrams: 11/15/18 02:00 11/14/18 18:19 Labs: Laboratory Results - last 24 hr 11/14/18 11/14/18 11/14/18 18:19 18:19 18:19 WBC 19.1 H D RBC 3.51 Hgb 9.1 L Hct 30.3 L MCV 86.3 MCH 25.9 MCHC 30.0 L RDW 16.2 H Plt Count 341 MPV 11.3 H Neut % (Auto) 81.1 H Lymph % (Auto) 12.3 L [place] % (Auto) 5.6 Eos % (Auto) 0.6 L Baso % (Auto) 0.4 Lymph # (Auto) 2.4 [place] # (Auto) 1.1 H Eos # (Auto) 0.1 Baso # (Auto) 0.07 Absolute Neuts (auto) 15.49 H PT 14.4 H INR 1.30 APTT 30.7 pCO2 pO2 HCO3 ABG pH ABG Total CO2 ABG O2 Saturation ABG O2 Content ABG Base Excess ABG Hemoglobin ABG Carboxyhemoglobin POC ABG HHb (Measured) ABG Methemoglobin ABG O2 Capacity VBG pH VBG pCO2 VBG HCO3 VBG Total CO2 VBG O2 Sat (Calc) VBG Base Excess VBG Potassium Hgb O2 Saturation Sodium 139 Chloride 107 Glucose Lactate FiO2 Crit Value Called To Crit Value Called By Blood Gas Notified Time Potassium 4.5 Carbon Dioxide 20 L Anion Gap 16 BUN 31 H Creatinine 1.3 Est GFR ( Amer) > 60 Est GFR (Non-Af Amer) 56 Random Glucose 315 H* D Calcium 8.8 Total Bilirubin 0.4 AST 121 H D ALT 20 Alkaline Phosphatase 110 Lactate Dehydrogenase 1830 H Total Creatine Kinase 327 H CK-MB (CK-2) 17.1 H CK-MB (CK-2) % 5.2 H Troponin I 25.80 H* D NT-Pro-B Natriuret Pep Total Protein 7.3 Albumin 3.3 Globulin 4.0 Albumin/Globulin Ratio 0.8 L Amylase 54 Lipase 74 Venous Blood Potassium Urine Color Urine Appearance Urine pH Ur Specific [place] Urine Protein Urine Glucose (UA) Urine Ketones Urine Blood Urine Nitrate Urine Bilirubin Urine Urobilinogen Ur Leukocyte Esterase Urine RBC Urine WBC Ur Epithelial Cells Urine Bacteria Digoxin Influenza Typ A,B (EIA) Blood Type Antibody Screen Crossmatch BBK History Checked 11/14/18 11/14/18 11/14/18 18:19 18:19 18:40 WBC RBC Hgb Hct MCV MCH MCHC RDW Plt Count MPV Neut % (Auto) Lymph % (Auto) [place] % (Auto) Eos % (Auto) Baso % (Auto) Lymph # (Auto) [place] # (Auto) Eos # (Auto) Baso # (Auto) Absolute Neuts (auto) PT INR APTT pCO2 pO2 98 H HCO3 ABG pH ABG Total CO2 ABG O2 Saturation ABG O2 Content ABG Base Excess ABG Hemoglobin ABG Carboxyhemoglobin POC ABG HHb (Measured) ABG Methemoglobin ABG O2 Capacity VBG pH 7.17 L* VBG pCO2 43.0 VBG HCO3 15.7 L VBG Total CO2 17.0 L VBG O2 Sat (Calc) 97.6 H VBG Base Excess -12.4 L VBG Potassium 4.6 Hgb O2 Saturation Sodium 139.0 Chloride 108.0 H Glucose 324 H Lactate 5.8 H* FiO2 21.0 Crit Value Called To Silverio rockwell Crit Value Called By Atc Blood Gas Notified Time 183 Potassium Carbon Dioxide Anion Gap BUN Creatinine Est GFR ( Amer) Est GFR (Non-Af Amer) Random Glucose Calcium Total Bilirubin AST ALT Alkaline Phosphatase Lactate Dehydrogenase Total Creatine Kinase CK-MB (CK-2) CK-MB (CK-2) % Troponin I NT-Pro-B Natriuret Pep 09373 H Total Protein Albumin Globulin Albumin/Globulin Ratio Amylase Lipase Venous Blood Potassium 4.6 Urine Color Urine Appearance Urine pH Ur Specific [place] Urine Protein Urine Glucose (UA) Urine Ketones Urine Blood Urine Nitrate Urine Bilirubin Urine Urobilinogen Ur Leukocyte Esterase Urine RBC Urine WBC Ur Epithelial Cells Urine Bacteria Digoxin Influenza Typ A,B (EIA) Blood Type O POSITIVE Antibody Screen Negative Crossmatch See Detail BBK History Checked Patient has bt 11/14/18 11/14/18 11/14/18 18:40 19:00 19:40 WBC RBC Hgb Hct MCV MCH MCHC RDW Plt Count MPV Neut % (Auto) Lymph % (Auto) [place] % (Auto) Eos % (Auto) Baso % (Auto) Lymph # (Auto) [place] # (Auto) Eos # (Auto) Baso # (Auto) Absolute Neuts (auto) PT INR APTT pCO2 pO2 HCO3 ABG pH ABG Total CO2 ABG O2 Saturation ABG O2 Content ABG Base Excess ABG Hemoglobin ABG Carboxyhemoglobin POC ABG HHb (Measured) ABG Methemoglobin ABG O2 Capacity VBG pH VBG pCO2 VBG HCO3 VBG Total CO2 VBG O2 Sat (Calc) VBG Base Excess VBG Potassium Hgb O2 Saturation Sodium Chloride Glucose Lactate FiO2 Crit Value Called To Crit Value Called By Blood Gas Notified Time Potassium Carbon Dioxide Anion Gap BUN Creatinine Est GFR ( Amer) Est GFR (Non-Af Amer) Random Glucose Calcium Total Bilirubin AST ALT Alkaline Phosphatase Lactate Dehydrogenase Total Creatine Kinase CK-MB (CK-2) CK-MB (CK-2) % Troponin I NT-Pro-B Natriuret Pep Total Protein Albumin Globulin Albumin/Globulin Ratio Amylase Lipase Venous Blood Potassium Urine Color Yellow Urine Appearance Slight-cloudy Urine pH 6.5 Ur Specific [place] 1.010 Urine Protein 30 H Urine Glucose (UA) Negative Urine Ketones Negative Urine Blood Trace-lysed H Urine Nitrate Negative Urine Bilirubin Negative Urine Urobilinogen 0.2 Ur Leukocyte Esterase Large H Urine RBC 1 - 3 H Urine WBC Tntc H Ur Epithelial Cells None Urine Bacteria Trace Digoxin 0.9 Influenza Typ A,B (EIA) Negative for flu a/b Blood Type Antibody Screen Crossmatch BBK History Checked 11/14/18 11/14/18 11/14/18 20:12 21:30 21:30 WBC RBC Hgb 7.9 L Hct 25.9 L MCV MCH MCHC RDW Plt Count MPV Neut % (Auto) Lymph % (Auto) [place] % (Auto) Eos % (Auto) Baso % (Auto) Lymph # (Auto) [place] # (Auto) Eos # (Auto) Baso # (Auto) Absolute Neuts (auto) PT INR APTT pCO2 29 L pO2 442.0 H 67 H HCO3 16.0 L ABG pH 7.35 ABG Total CO2 16.9 L ABG O2 Saturation 99.8 H ABG O2 Content 10.8 L ABG Base Excess -8.7 L ABG Hemoglobin 6.9 L ABG Carboxyhemoglobin 1.2 POC ABG HHb (Measured) 0.2 ABG Methemoglobin 0.9 ABG O2 Capacity 10.8 L VBG pH 7.30 L VBG pCO2 32.0 L VBG HCO3 15.7 L VBG Total CO2 16.7 L VBG O2 Sat (Calc) 94.2 H VBG Base Excess -9.6 L VBG Potassium 3.8 Hgb O2 Saturation 97.7 Sodium 141.0 Chloride 116.0 H Glucose 286 H Lactate 1.0 FiO2 100.0 21.0 Crit Value Called To Crit Value Called By Blood Gas Notified Time Potassium Carbon Dioxide Anion Gap BUN Creatinine Est GFR ( Amer) Est GFR (Non-Af Amer) Random Glucose Calcium Total Bilirubin AST ALT Alkaline Phosphatase Lactate Dehydrogenase Total Creatine Kinase CK-MB (CK-2) CK-MB (CK-2) % Troponin I NT-Pro-B Natriuret Pep Total Protein Albumin Globulin Albumin/Globulin Ratio Amylase Lipase Venous Blood Potassium 3.8 Urine Color Urine Appearance Urine pH Ur Specific [place] Urine Protein Urine Glucose (UA) Urine Ketones Urine Blood Urine Nitrate Urine Bilirubin Urine Urobilinogen Ur Leukocyte Esterase Urine RBC Urine WBC Ur Epithelial Cells Urine Bacteria Digoxin Influenza Typ A,B (EIA) Blood Type Antibody Screen Crossmatch BBK History Checked 11/15/18 11/15/18 00:48 02:00 WBC RBC Hgb 7.8 L Hct 25.5 L MCV MCH MCHC RDW Plt Count MPV Neut % (Auto) Lymph % (Auto) [place] % (Auto) Eos % (Auto) Baso % (Auto) Lymph # (Auto) [place] # (Auto) Eos # (Auto) Baso # (Auto) Absolute Neuts (auto) PT INR APTT pCO2 pO2 HCO3 ABG pH ABG Total CO2 ABG O2 Saturation ABG O2 Content ABG Base Excess ABG Hemoglobin ABG Carboxyhemoglobin POC ABG HHb (Measured) ABG Methemoglobin ABG O2 Capacity VBG pH VBG pCO2 VBG HCO3 VBG Total CO2 VBG O2 Sat (Calc) VBG Base Excess VBG Potassium Hgb O2 Saturation Sodium Chloride Glucose Lactate FiO2 Crit Value Called To Crit Value Called By Blood Gas Notified Time Potassium Carbon Dioxide Anion Gap BUN Creatinine Est GFR ( Amer) Est GFR (Non-Af Amer) Random Glucose Calcium Total Bilirubin AST ALT Alkaline Phosphatase Lactate Dehydrogenase Total Creatine Kinase CK-MB (CK-2) CK-MB (CK-2) % Troponin I 25.40 H* NT-Pro-B Natriuret Pep Total Protein Albumin Globulin Albumin/Globulin Ratio Amylase Lipase Venous Blood Potassium Urine Color Urine Appearance Urine pH Ur Specific [place] Urine Protein Urine Glucose (UA) Urine Ketones Urine Blood Urine Nitrate Urine Bilirubin Urine Urobilinogen Ur Leukocyte Esterase Urine RBC Urine WBC Ur Epithelial Cells Urine Bacteria Digoxin Influenza Typ A,B (EIA) Blood Type Antibody Screen Crossmatch BBK History Checked Attending/Attestation - Attestation I have personally seen and examined this patient.: Yes I have fully participated in the care of the patient.: Yes I have reviewed all pertinent clinical information: Yes Notes (Text): 11/15/18 05:09 CCT spent :30 minutes.
[2018-11-14 21:48] LABS: VENOUS BLOOD GAS BASE EXCESS -9.6 mmol/L (0.0-2.0); VENOUS BLOOD GAS PO2 67 mm/Hg (30-55)
[2018-11-14 21:49] LABS: HEMOGLOBIN 7.9 g/dL (14.0-18.0)
--- NOTE | 2018-11-14 22:26 | PCM.SEPTIC ---
<Leonides Davis - Last Filed: 11/14/18 22:25> Sepsis Progress Note - Reassessment Type Date of Evaluation: 11/14/18 Time of Evaluation: 22:25 Reassessment Type: Non-invasive reassessment - Non Invasive Reassessment Were the most recent vital sign reviewed: Yes Vital Sign (Latest): Temp Pulse Resp BP Pulse Ox 97.9 F 89 16 127/63 100 11/14/18 19:11 11/14/18 20:35 11/14/18 20:22 11/14/18 20:35 11/14/18 20:35 Cardiovascular: Yes: Regular Rate, Rhythm Respiratory: Yes: Normal Breath Sounds. No: Crackles, Rales, Rhonchi, Wheezing Capillary Refill: Normal (Less than 2 sec) Pulses: Normal Radial, Normal Dorsalis Pedis, Normal Posterior Tibialis Skin: Warm, Dry <Carol Pruitt - Last Filed: 11/14/18 22:51> Sepsis Progress Note - Non Invasive Reassessment Vital Sign (Latest): Temp Pulse Resp BP Pulse Ox 97.9 F 89 16 127/63 100 11/14/18 19:11 11/14/18 20:35 11/14/18 20:22 11/14/18 20:35 11/14/18 20:35 Attending/Attestation - Attestation I have personally seen and examined this patient.: Yes I have fully participated in the care of the patient.: Yes I have reviewed all pertinent clinical information, including history, physical exam and plan: Yes
[2018-11-14] MEDS: Piperacillin/Tazobact 3.375 gm 100 ML IVPB SCH (23:00)
[2018-11-15 02:43] LABS: HEMOGLOBIN 7.8 g/dL (14.0-18.0)
[2018-11-15] MEDS ORDERED: Pantoprazole 40mg/100mL NS 40 MG/100 ML BAG IVPB SCH (04:15)
[2018-11-15] MEDS: Sodium Chloride 0.9% 1,000 ML IV SCH (06:00)
[2018-11-15 06:39] LABS: ARTERIAL BLOOD GAS HEMOGLOBIN 10.3 g/dL (11.7-17.4); ARTERIAL BLOOD GAS O2 CAPACITY 14.9 mL/dl (16-24); ARTERIAL BLOOD GAS O2 CONTENT 14.8 ML/dl (15-23); ARTERIAL BLOOD GAS O2 SAT 99.5 % (95-98); ARTERIAL BLOOD GAS PCO2 26 mm/Hg (35-45); ARTERIAL BLOOD GAS PH 7.37 (7.35-7.45); ARTERIAL BLOOD GAS TCO2 15.8 mmol.L (22-28)
--- NOTE | 2018-11-15 07:31 | CT ---
Date of service: 11/14/2018 PROCEDURE: CT HEAD WITHOUT CONTRAST. HISTORY: possible seizure COMPARISON: 07/10/2018. TECHNIQUE: Axial computed tomography images were obtained through the head/brain without intravenous contrast. Radiation dose: Total exam DLP = 1120.3 mGy-cm. This CT exam was performed using one or more of the following dose reduction techniques: Automated exposure control, adjustment of the mA and/or kV according to patient size, and/or use of iterative reconstruction technique. FINDINGS: Examination is technically limited due to motion artifacts at the base of the skull. HEMORRHAGE: No intracranial hemorrhage. BRAIN: There are mild chronic microangiopathic changes. There are chronic lacunar infarctions in the right dennison radiata and basal ganglia. There is no mass, mass effect or abnormal extra-axial fluid collection. The midline sagittal structures are normal. VENTRICLES: There is mild age-related global parenchymal volume loss and proportionate enlargement of the ventricles and cortical sulci. CALVARIUM: There is no calvarial fracture or extracranial soft tissue swelling. PARANASAL SINUSES: Predominantly clear. MASTOID AIR CELLS: Predominantly clear. OTHER FINDINGS: None. IMPRESSION: No acute intracranial abnormality. Chronic lacunar infarctions in the right dennison radiata and basal ganglia. Mild chronic microangiopathic changes and mild age-related global parenchymal volume loss. A preliminary report was provided by [employer].
[2018-11-15 07:43] LABS: BASO # 0.02 K/mm3 (0.0-2.0); BASO % 0.1 % (0.0-3.0); HEMOGLOBIN 8.7 g/dL (14.0-18.0); LYMPH # 0.5 (1.2-3.4); LYMPH % 3.8 % (22.0-35.0); MEAN CELL VOLUME 85.3 fl (80.0-105.0); MEAN CORPUSCULAR HEMOGLOBIN 26.6 pg (25.0-35.0); MEAN CORPUSCULAR HGB CONC 31.2 g/dl (31.0-37.0); MEAN PLATELET VOLUME 11.3 fl (7.0-11.0); MONO # 0.4 (0.1-0.6); MONO % 2.9 % (1.0-6.0); PLATELET COUNT 188 10^3/uL (120.0-450.0); RBC 3.27 10^6/uL (3.5-6.1); RED CELL DISTRIBUTION WIDTH 15.6 % (11.5-14.5); WHITE BLOOD COUNT 14.1 10^3/uL (4.5-11.0)
[2018-11-15 08:02] LABS: ALB/GLOB RATIO 0.8 (1.1-1.8); ALT/SGPT 21 U/L (7-56); AST/SGOT 89 U/L (17-59); BLOOD UREA NITROGEN 27 mg/dL (7-21); CALCIUM 7.8 mg/dL (8.4-10.5); GFR NON-AFRICAN AMERICAN > 60
--- NOTE | 2018-11-15 08:26 | RAD ---
Date of service: 11/14/2018 HISTORY: gi bleed COMPARISON: 07/30/2018 FINDINGS: Endotracheal tube terminates in the mid trachea. LUNGS: The lungs are well inflated and clear. PLEURA: No pleural effusions or pneumothorax. CARDIOVASCULAR: There is mild cardiomegaly. There are aortic atherosclerotic calcifications present. OSSEOUS STRUCTURES: Within normal limits for the patient's age. VISUALIZED UPPER ABDOMEN: Normal. OTHER FINDINGS: None. IMPRESSION: No acute findings.
--- NOTE | 2018-11-15 08:36 | RAD ---
Date of service: 11/14/2018 HISTORY: OGT placement COMPARISON: 11/14/2018 at 6:44 p.m. FINDINGS: Endotracheal tube terminates in the mid trachea. The nasogastric tube terminates in the stomach. LUNGS: The lungs are well inflated. There is patchy airspace disease in the right upper and lower lobes. There is mild pulmonary venous congestion. PLEURA: No pleural effusions or pneumothorax. CARDIOVASCULAR: Moderate cardiomegaly. There are aortic atherosclerotic calcifications present. OSSEOUS STRUCTURES: Within normal limits for the patient's age. VISUALIZED UPPER ABDOMEN: Normal. OTHER FINDINGS: None. IMPRESSION: Endotracheal tube terminates in the mid trachea. The nasogastric tube terminates in the stomach. Patchy airspace disease in the right upper and lower lobe could represent atelectasis or venous congestion.
--- NOTE | 2018-11-15 08:39 | RAD ---
Date of service: 11/15/2018 HISTORY: intubated COMPARISON: 11/14/2018 FINDINGS: Endotracheal tube terminates in the mid trachea. The nasogastric tube terminates in the stomach. LUNGS: The lungs are well inflated and clear. PLEURA: No pleural effusions or pneumothorax. CARDIOVASCULAR: There is mild cardiomegaly. No aortic atherosclerotic calcifications present. OSSEOUS STRUCTURES: Within normal limits for the patient's age. VISUALIZED UPPER ABDOMEN: Normal. OTHER FINDINGS: None. IMPRESSION: Stable position of endotracheal and nasogastric tubes. No acute findings.
[2018-11-15 09:04] LABS: BASOPHIL 1 % (0.0-1.0); LYMPHOCYTE 1 % (22.0-35.0); MONOCYTE 1 % (1.0-6.0); NEUTROPHIL 97 % (50.0-70.0); PLATELET ESTIMATE NORMAL (NORMAL)
[2018-11-15] MEDS ORDERED: Amiodarone 360 mg/D5W 200 ml 360 MG/200 ML BAG IV SCH ×2 (09:21→18:30)
[2018-11-15] MEDS ORDERED: Magnesium Sulfate 1 gm in D5W 1 GM/100 ML BAG IVPB ONE (09:31)
[2018-11-15 09:39] LABS: ARTERIAL BLOOD GAS HCO3 13.8 mmol/L (21-28); ARTERIAL BLOOD GAS O2 SAT 99.8 % (95-98); ARTERIAL BLOOD GAS PCO2 28 mm/Hg (35-45); ARTERIAL BLOOD GAS TCO2 14.7 mmol.L (22-28)
[2018-11-15] MEDS ORDERED: Amiodarone 150 mg/D5W 100 ml 150 MG/100 ML BAG IVPB ONE (09:45)
[2018-11-15] MEDS ORDERED: levETIRAcetam 1,000 MG in Sodium Chloride 0.9% 100 ML IVPB SCH (10:00)
[2018-11-15] MEDS: levETIRAcetam 1000mg/100ml NS 100 ML IV SCH ×3 (10:00→22:00)
[2018-11-15] MEDS: Vancomycin 1gm in NS 250ml 1 GM/250 ML BAG IVPB SCH (10:19)
--- NOTE | 2018-11-15 10:32 | RAD ---
Date of service: 11/15/2018 HISTORY: r/o infiltrate COMPARISON: 11/15/2018 at 6:50 a.m. FINDINGS: Endotracheal tube terminates in the mid trachea. The nasogastric tube terminates in the stomach. LUNGS: The lungs are well inflated. There is mild pulmonary venous congestion. No focal consolidation. PLEURA: No pleural effusions or pneumothorax. CARDIOVASCULAR: There is moderate cardiomegaly. There are aortic atherosclerotic calcifications present. OSSEOUS STRUCTURES: Within normal limits for the patient's age. VISUALIZED UPPER ABDOMEN: Normal. OTHER FINDINGS: None. IMPRESSION: No active pulmonary disease. Moderate cardiomegaly and pulmonary venous congestion. Stable position of support tubes.
[2018-11-15] MEDS ORDERED: Cisatracurium Besylate 200 MG in Sodium Chloride 0.9% 250 ML IV PRN (10:44)
[2018-11-15] MEDS: Piperacillin/Tazobact 3.375 gm 100 ML IVPB SCH ×2 (11:30→23:00)
[2018-11-15] MEDS ORDERED: Propofol 10 mg/ml 1,000 MG/100 ML VIAL IV PRN (12:11)
--- NOTE | 2018-11-15 12:31 | PCM.RRT ---
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 A code blue was called. Patient was found to be pulseless and subsequently CPR was started and the patient was debrilliated for pulseless V-fibrillation with 1 round of CPR performed with 1 dose of epinephrine given and ROSC obtained. Amiodarone bolus was given and drip started by ICU team. <Blake Casanova - Last Filed: 11/15/18 17:56> Attending/Attestation - Attestation I have personally seen and examined this patient.: Yes I have fully participated in the care of the patient.: Yes I have reviewed all pertinent clinical information, including history, physical exam and plan: Yes
[2018-11-15 13:51] LABS: HEMOGLOBIN 10.4 g/dL (14.0-18.0)
[2018-11-15 13:54] LABS: VENOUS BLOOD GAS BASE EXCESS -15.8 mmol/L (0.0-2.0); VENOUS BLOOD GAS PO2 47 mm/Hg (30-55); VENOUS BLOOD PH 7.07 (7.32-7.43)
--- NOTE | 2018-11-15 13:55 | CON ---
DATE: 11/15/2018 The patient with respiratory failure, intubated on a ventilator x1 day duration. HISTORY OF PRESENT ILLNESS: This is a 63-year-old male who was admitted through the emergency room, status post cardiac arrest, questionable seizures, now with respiratory failure, intubated on a vent, status post cardiac arrest. The patient is unable to give information. REVIEW OF SYSTEMS: A 12-point review of systems was performed. PAST MEDICAL HISTORY: Significant for COPD, hypertension, diabetes mellitus, peripheral vascular disease, history of right elbow septic arthritis and right upper cellulitis and history of acute kidney injury. Long-time smoker. PAST SURGICAL HISTORY: Significant for orthopedic surgery and the patient also has a history of diverticulitis and rectal bleeding. ALLERGIES: THE PATIENT HAS NO ALLERGIES TO ANY ANTIBIOTICS. HE IS ALLERGIC TO NUT AND FRUIT. MEDICATIONS AT HOME: Include digoxin, Lopressor, Pepcid, Feosol and metformin. PHYSICAL EXAMINATION: GENERAL: The patient is in bed, in no acute distress with temperature of 99, T-max was 100.4. The patient is intubated on a ventilator, respiratory rate was 43 highest, now to 25 and heart rate of 127, blood pressure of 112/80. It was as low as 91. In the emergency room, it was low as 85. Examination of HEENT is unremarkable. NECK: Supple.. ET tube in place. LUNGS: Have decreased breath sounds. HEART: Normal S1, S2. ABDOMEN: Soft, nontender. No rebound or guarding. LABORATORY EXAMINATION: Reveals the patient's white count of 19,000, hemoglobin of 9, platelets of 341. Coagulation is noted. Chemistries reveals a BUN of 31, creatinine of 1.3, LDH is 1830, BNP is 22,500. Urinalysis is noted. Too numerous to count leukocyte esterase is present. There is bacteria. Toxicology: Digoxin level is noted. Influenza is noted to be negative. The patient had a chest x-ray, which was not read. Also, had 2 more x-rays today also which was not read. Had a CAT scan of the head. ASSESSMENT AND PLAN: This 63-year-old male with respiratory failure, intubated on a ventilator, status post cardiac arrest with septic shock versus cardiogenic shock, must rule out healthcare-associated pneumonia versus urine as the source. We will treat the patient with vanco, Zosyn, and doxycycline, pending panculture results and initial workup results. The patient is on pressors and we will follow closely with you. Overall prognosis is quite poor. Satya Fernandes MD
[2018-11-15] MEDS ORDERED: Digoxin 125 mcg (0.125 mg) Tab PO SCH (14:00)
--- NOTE | 2018-11-15 15:27 | CP.CCUPN ---
<Ryan Livingston - Last Filed: 11/15/18 15:38> CCU Subjective - Physician Review Subjective (Free Text): PGY-2 ICU progress note for Dr Casanova Patient paralyzed on nimbex and sedated on propofol. Corneal, gag, reflex present, responsive to pain stimuli. ROS not obtainable. 11/15/18 15:24 Critical Care Time Spent (in minutes): 35 CCU Objective - Vital Signs / Intake & Output Vital Signs (Last 4 hours): Vital Signs Pulse BP Pulse Ox 11/15/18 15:00 76 11/15/18 13:50 87 100 11/15/18 13:45 87 109/75 100 11/15/18 13:40 88 100 11/15/18 13:30 89 112/55 L 100 11/15/18 13:20 91 H 100 11/15/18 13:15 92 H 112/75 100 11/15/18 13:10 93 H 100 11/15/18 13:00 95 H 113/77 100 11/15/18 12:50 99 H 100 11/15/18 12:45 100 H 120/75 100 11/15/18 12:40 101 H 100 11/15/18 12:30 105 H 120/83 100 11/15/18 12:20 109 H 100 11/15/18 12:15 110 H 133/87 100 11/15/18 12:10 112 H 100 11/15/18 12:00 115 H 135/91 H 100 11/15/18 11:50 117 H 100 11/15/18 11:45 119 H 135/87 100 11/15/18 11:40 120 H 100 11/15/18 11:30 122 H 134/88 100 Intake and Output (Last 8hrs): Intake & Output 11/15/18 11/15/18 11/15/18 06:59 14:59 22:59 Intake Total 1780 10 Output Total 910 Balance 870 10 Intake: IV 1080 10 Left Antecubital 160 Right Femoral 900 Other 700 Output: Gastric Amount 10 Stomach 10 Urine 900 Urethral (Ash) 900 Other: # Bowel Movements 1 - Physical Exam Head: Positive for: Atraumatic, Normocephalic Pupils: Positive for: Other (2mm, reactive) Conjunctiva: Positive for: Normal Mouth: Positive for: Moist Mucous Membranes Neck: Positive for: Trachea Midline. Negative for: JVD, Lymphadenopathy Respiratory/Chest: Positive for: Clear to Auscultation, Good Air Exchange. Negative for: Respiratory Distress, Accessory Muscle Use Cardiovascular: Positive for: Regular Rate and Rhythm, Normal S1, S2. Negative for: Murmurs Abdomen: Positive for: Normal Bowel Sounds. Negative for: Tenderness Rectal: Positive for: Other (Guaiac +, black stools. GI bleed. ITPE.) Upper Extremity: Positive for: Normal Inspection. Negative for: Cyanosis, Edema Lower Extremity: Positive for: Normal Inspection. Negative for: Edema Neurological: Positive for: Other (medically sedated and paralyzed; corneal and gag reflex present, withdraws to pain stimuli) Skin: Positive for: Warm, Dry, Pale. Negative for: Rashes Psychiatric: Negative for: Alert - Medications Active Medications: Active Medications Generic Name Dose Route Start Last Admin Trade Name Freq PRN Reason Stop Dose Admin Atorvastatin Calcium 40 mg 11/15/18 17:00 Lipitor PO DIN JHON Hydralazine HCl 25 mg 11/15/18 10:00 Apresoline PO QID JHON NOREPINEPHRINE BIT/0.9 % NACL 4 mg in 250 mls @ 15 mls/hr 11/14/18 18:18 11/14/18 23:11 Levophed 4 Mg/ 250 Ml Ns Premixed IV 0 mcg/min .[id number] PRN 0 mls/hr TITRATE PER MD ORDER Titration Protocol 4 MCG/MIN Sodium Chloride 1,000 mls @ 100 mls/hr 11/14/18 19:00 11/14/18 20:29 Sodium Chloride 0.9% IV 100 mls/hr .Q10H JHON Administration Piperacillin Sod/Tazobactam Sod 100 mls @ 25 mls/hr 11/14/18 22:00 11/15/18 11:30 Zosyn 3.375 In Ns 100ml IVPB 11/23/18 22:01 25 mls/hr Q12 JHON Administration Protocol Vancomycin HCl 1 gm in 250 mls @ 167 mls/hr 11/15/18 10:00 11/15/18 10:19 Vancomycin 1gm IVPB 11/23/18 10:01 167 mls/hr DAILY JHON Administration Protocol Doxycycline Hyclate 100 mg/ 100 mls @ 100 mls/hr 11/14/18 22:00 11/15/18 10:57 Sodium Chloride IVPB 11/22/18 22:01 100 mls/hr Q12 JHON Administration Protocol Pantoprazole Sodium 40 mg in 100 mls @ 20 mls/hr 11/15/18 04:15 11/15/18 05:00 Protonix 40mg Ivpb IVPB 20 mls/hr .Q5H JHON Administration Amiodarone HCl/Dextrose 360 mg in 200 mls @ 33.333 mls/hr 11/15/18 09:21 11/15/18 09:45 Nexterone 360 Mg In D5w 200 Ml (Premix) IV 33.333 mls/hr .Q6H JHON Administration Protocol 1 MG/MIN Levetiracetam 100 mls @ 460 mls/hr 11/15/18 10:00 Keppra 1000mg/100ml Ns IV Q12 JHON Cisatracurium Besylate 200 mg/ 270 mls @ 6.8 mls/hr 11/15/18 10:44 11/15/18 13:30 Sodium Chloride IV 0.5 mcg/kg/min .Q24H PRN 3.4 mls/hr TITRATE PER MD ORDER Titration Protocol 1 MCG/KG/MIN Propofol 1,000 mg in 100 mls @ 2.517 mls/hr 11/15/18 12:11 11/15/18 12:30 Diprivan IV 5 mcg/kg/min .Q24H PRN 2.517 mls/hr TITRATE PER MD ORDER Administration Protocol 5 MCG/KG/MIN Isosorbide Mononitrate 30 mg 11/15/18 10:00 Imdur Er PO DAILY [facility]–1983 Metoprolol Tartrate 25 mg 11/15/18 10:00 Lopressor PO BID JHON Ondansetron HCl 4 mg 11/15/18 04:15 11/15/18 05:03 Zofran Inj IVP 4 mg Q6H PRN Administration Nausea/Vomiting - Patient Studies Lab Studies: Lab Studies 11/15/18 11/15/18 11/15/18 Range/Units 13:40 13:40 09:30 WBC (4.5-11.0) 10^3/uL RBC (3.5-6.1) 10^6/uL Hgb 10.4 L (14.0-18.0) g/dL Hct 33.2 L (42.0-52.0) % MCV (80.0-105.0) fl MCH (25.0-35.0) pg MCHC (31.0-37.0) g/dl RDW (11.5-14.5) % Plt Count (120.0-450.0) 10^3/uL MPV (7.0-11.0) fl Neut % (Auto) (50.0-68.0) % Lymph % (Auto) (22.0-35.0) % [place] % (Auto) (1.0-6.0) % Eos % (Auto) (1.5-5.0) % Baso % (Auto) (0.0-3.0) % Lymph # (Auto) (1.2-3.4) [place] # (Auto) (0.1-0.6) Eos # (Auto) (0.0-0.7) Baso # (Auto) (0.0-2.0) K/mm3 Absolute Neuts (auto) (1.4-6.5) Neutrophils % (Manual) (50.0-70.0) % Lymphocytes % (Manual) (22.0-35.0) % Monocytes % (Manual) (1.0-6.0) % Basophils % (Manual) (0.0-1.0) % Platelet Evaluation (NORMAL) PT (9.4-12.5) SECONDS INR APTT (26.9-38.3) Seconds pCO2 28 L (35-45) mm/Hg pO2 47 284.0 H (30-55) mm/Hg HCO3 13.8 L (21-28) mmol/L ABG pH 7.30 L (7.35-7.45) ABG Total CO2 14.7 L (22-28) mmol.L ABG O2 Saturation 99.8 H (95-98) % ABG O2 Content (15-23) ML/dl ABG Base Excess -11.1 L (-2.0-3.0) mmol/L ABG Hemoglobin (11.7-17.4) g/dL ABG Carboxyhemoglobin (0.5-1.5) % POC ABG HHb (Measured) (0-5) % ABG Methemoglobin (0.0-3.0) % ABG O2 Capacity (16-24) mL/dl ABG Potassium 3.7 (3.6-5.2) mmol/L VBG pH 7.07 L* (7.32-7.43) VBG pCO2 49.0 (40-60) VBG HCO3 14.2 L (21-28) mmol/l VBG Total CO2 15.7 L (22-28) mmol.L VBG O2 Sat (Calc) 75.7 H (40-65) % VBG Base Excess -15.8 L (0.0-2.0) mmol/L VBG Potassium 3.7 (3.6-5.2) mmol/L Hgb O2 Saturation (95.0-98.0) % Sodium 142.0 142.0 (132-148) mmol/L Chloride 113.0 H 117.0 H (98-107) mmol/L Glucose 463 H* D 341 H (75-110) mg/dl Lactate 2.5 H 2.7 H (0.7-2.1) mmol/L FiO2 21.0 100.0 % Blood Gas Comments Status post-cardiac arrest Crit Value Called To Michelle casanova Crit Value 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 By Ab 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 duarte 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 Blood Gas Notified Time 1350 940 Potassium (3.6-5.0) mmol/L Carbon Dioxide (21-33) mmol/L Anion Gap (10-20) BUN (7-21) mg/dL Creatinine (0.8-1.5) mg/dl Est GFR ( Amer) Est GFR (Non-Af Amer) Random Glucose (70-110) mg/dL Calcium (8.4-10.5) mg/dL Phosphorus (2.5-4.5) mg/dL Magnesium (1.7-2.2) mg/dL Total Bilirubin (0.2-1.3) mg/dL AST (17-59) U/L ALT (7-56) U/L Alkaline Phosphatase (38-126) U/L Lactate Dehydrogenase (333-699) U/L Total Creatine Kinase (35-230) U/L CK-MB (CK-2) (0.0-3.6) ng/mL CK-MB (CK-2) % (2.5-3.0) % Troponin I ng/mL NT-Pro-B Natriuret Pep (0-450) pg/mL Total Protein (5.8-8.3) g/dL Albumin (3.0-4.8) g/dL Globulin gm/dL Albumin/Globulin Ratio (1.1-1.8) Amylase (35-125) U/L Lipase (23-300) U/L Procalcitonin (0.19-0.49) NG/ML Arterial Blood Potassium 3.7 (3.6-5.2) mmol/L Venous Blood Potassium 3.7 (3.6-5.2) mmol/L Urine Color (YELLOW) Urine Appearance (CLEAR) Urine pH (4.7-8.0) Ur Specific [place] (1.005-1.035) Urine Protein (<30 mg/dL) mg/dL Urine Glucose (UA) (NEGATIVE) mg/dL Urine Ketones (NEGATIVE) mg/dL Urine Blood (NEGATIVE) Urine Nitrate (NEGATIVE) Urine Bilirubin (NEGATIVE) Urine Urobilinogen (<1 E.U./dL) E.U./dL Ur Leukocyte Esterase (NEGATIVE) Dani/uL Urine RBC (0-2) /hpf Urine WBC (0-6) /hpf Ur Epithelial Cells (0-5) /hpf Urine Bacteria (NONE) /hpf Stool Occult Blood (NEGATIVE) Digoxin (0.8-2.0) ng/mL Influenza Typ A,B (EIA) (NEGATIVE) Blood Type Antibody Screen Crossmatch BBK History Checked 11/15/18 11/15/18 11/15/18 Range/Units 08:30 07:00 07:00 WBC 14.1 H D (4.5-11.0) 10^3/uL RBC 3.27 L (3.5-6.1) 10^6/uL Hgb 8.7 L (14.0-18.0) g/dL Hct 27.9 L (42.0-52.0) % MCV 85.3 (80.0-105.0) fl MCH 26.6 (25.0-35.0) pg MCHC 31.2 (31.0-37.0) g/dl RDW 15.6 H (11.5-14.5) % Plt Count 188 (120.0-450.0) 10^3/uL MPV 11.3 H (7.0-11.0) fl Neut % (Auto) 93.2 H (50.0-68.0) % Lymph % (Auto) 3.8 L (22.0-35.0) % [place] % (Auto) 2.9 (1.0-6.0) % Eos % (Auto) 0.0 L (1.5-5.0) % Baso % (Auto) 0.1 (0.0-3.0) % Lymph # (Auto) 0.5 L (1.2-3.4) [place] # (Auto) 0.4 (0.1-0.6) Eos # (Auto) 0.0 (0.0-0.7) Baso # (Auto) 0.02 (0.0-2.0) K/mm3 Absolute Neuts (auto) 13.10 H (1.4-6.5) Neutrophils % (Manual) 97 H (50.0-70.0) % Lymphocytes % (Manual) 1 L (22.0-35.0) % Monocytes % (Manual) 1 (1.0-6.0) % Basophils % (Manual) 1 (0.0-1.0) % Platelet Evaluation Normal (NORMAL) PT (9.4-12.5) SECONDS INR APTT (26.9-38.3) Seconds pCO2 (35-45) mm/Hg pO2 (30-55) mm/Hg HCO3 (21-28) mmol/L ABG pH (7.35-7.45) ABG Total CO2 (22-28) mmol.L ABG O2 Saturation (95-98) % ABG O2 Content (15-23) ML/dl ABG Base Excess (-2.0-3.0) mmol/L ABG Hemoglobin (11.7-17.4) g/dL ABG Carboxyhemoglobin (0.5-1.5) % POC ABG HHb (Measured) (0-5) % ABG Methemoglobin (0.0-3.0) % ABG O2 Capacity (16-24) mL/dl ABG Potassium (3.6-5.2) mmol/L VBG pH (7.32-7.43) VBG pCO2 (40-60) VBG HCO3 (21-28) mmol/l VBG Total CO2 (22-28) mmol.L VBG O2 Sat (Calc) (40-65) % VBG Base Excess (0.0-2.0) mmol/L VBG Potassium (3.6-5.2) mmol/L Hgb O2 Saturation (95.0-98.0) % Sodium 143 (132-148) mmol/L Chloride 113 H (98-107) mmol/L Glucose (75-110) mg/dl Lactate (0.7-2.1) mmol/L FiO2 % Blood Gas Comments Crit Value Called To Crit Value Called By Blood Gas Notified Time Potassium 4.0 (3.6-5.0) mmol/L Carbon Dioxide 18 L (21-33) mmol/L Anion Gap 15 (10-20) BUN 27 H (7-21) mg/dL Creatinine 1.2 (0.8-1.5) mg/dl Est GFR ( Amer) > 60 Est GFR (Non-Af Amer) > 60 Random Glucose 276 H (70-110) mg/dL Calcium 7.8 L (8.4-10.5) mg/dL Phosphorus 4.6 H (2.5-4.5) mg/dL Magnesium 1.5 L (1.7-2.2) mg/dL Total Bilirubin 0.5 (0.2-1.3) mg/dL AST 89 H D (17-59) U/L ALT 21 (7-56) U/L Alkaline Phosphatase 98 (38-126) U/L Lactate Dehydrogenase (333-699) U/L Total Creatine Kinase (35-230) U/L CK-MB (CK-2) (0.0-3.6) ng/mL CK-MB (CK-2) % (2.5-3.0) % Troponin I 24.40 H* ng/mL NT-Pro-B Natriuret Pep (0-450) pg/mL Total Protein 6.6 (5.8-8.3) g/dL Albumin 3.0 (3.0-4.8) g/dL Globulin 3.7 gm/dL Albumin/Globulin Ratio 0.8 L (1.1-1.8) Amylase (35-125) U/L Lipase (23-300) U/L Procalcitonin (0.19-0.49) NG/ML Arterial Blood Potassium (3.6-5.2) mmol/L Venous Blood Potassium (3.6-5.2) mmol/L Urine Color (YELLOW) Urine Appearance (CLEAR) Urine pH (4.7-8.0) Ur Specific [place] (1.005-1.035) Urine Protein (<30 mg/dL) mg/dL Urine Glucose (UA) (NEGATIVE) mg/dL Urine Ketones (NEGATIVE) mg/dL Urine Blood (NEGATIVE) Urine Nitrate (NEGATIVE) Urine Bilirubin (NEGATIVE) Urine Urobilinogen (<1 E.U./dL) E.U./dL Ur Leukocyte Esterase (NEGATIVE) Dani/uL Urine RBC (0-2) /hpf Urine WBC (0-6) /hpf Ur Epithelial Cells (0-5) /hpf Urine Bacteria (NONE) /hpf Stool Occult Blood Negative (NEGATIVE) Digoxin (0.8-2.0) ng/mL Influenza Typ A,B (EIA) (NEGATIVE) Blood Type Antibody Screen Crossmatch BBK History Checked 11/15/18 11/15/18 11/15/18 Range/Units 06:20 02:00 00:48 WBC (4.5-11.0) 10^3/uL RBC (3.5-6.1) 10^6/uL Hgb 7.8 L (14.0-18.0) g/dL Hct 25.5 L (42.0-52.0) % MCV (80.0-105.0) fl MCH (25.0-35.0) pg MCHC (31.0-37.0) g/dl RDW (11.5-14.5) % Plt Count (120.0-450.0) 10^3/uL MPV (7.0-11.0) fl Neut % (Auto) (50.0-68.0) % Lymph % (Auto) (22.0-35.0) % [place] % (Auto) (1.0-6.0) % Eos % (Auto) (1.5-5.0) % Baso % (Auto) (0.0-3.0) % Lymph # (Auto) (1.2-3.4) [place] # (Auto) (0.1-0.6) Eos # (Auto) (0.0-0.7) Baso # (Auto) (0.0-2.0) K/mm3 Absolute Neuts (auto) (1.4-6.5) Neutrophils % (Manual) (50.0-70.0) % Lymphocytes % (Manual) (22.0-35.0) % Monocytes % (Manual) (1.0-6.0) % Basophils % (Manual) (0.0-1.0) % Platelet Evaluation (NORMAL) PT (9.4-12.5) SECONDS INR APTT (26.9-38.3) Seconds pCO2 26 L (35-45) mm/Hg pO2 275.0 H (30-55) mm/Hg HCO3 15.0 L (21-28) mmol/L ABG pH 7.37 (7.35-7.45) ABG Total CO2 15.8 L (22-28) mmol.L ABG O2 Saturation 99.5 H (95-98) % ABG O2 Content 14.8 L (15-23) ML/dl ABG Base Excess -9.0 L (-2.0-3.0) mmol/L ABG Hemoglobin 10.3 L (11.7-17.4) g/dL ABG Carboxyhemoglobin 1.3 (0.5-1.5) % POC ABG HHb (Measured) 0.5 (0-5) % ABG Methemoglobin 1.1 (0.0-3.0) % ABG O2 Capacity 14.9 L (16-24) mL/dl ABG Potassium (3.6-5.2) mmol/L VBG pH (7.32-7.43) VBG pCO2 (40-60) VBG HCO3 (21-28) mmol/l VBG Total CO2 (22-28) mmol.L VBG O2 Sat (Calc) (40-65) % VBG Base Excess (0.0-2.0) mmol/L VBG Potassium (3.6-5.2) mmol/L Hgb O2 Saturation 97.1 (95.0-98.0) % Sodium (132-148) mmol/L Chloride (98-107) mmol/L Glucose (75-110) mg/dl Lactate (0.7-2.1) mmol/L FiO2 60.0 % Blood Gas Comments Crit Value Called To Crit Value Called By Blood Gas Notified Time Potassium (3.6-5.0) mmol/L Carbon Dioxide (21-33) mmol/L Anion Gap (10-20) BUN (7-21) mg/dL Creatinine (0.8-1.5) mg/dl Est GFR ( Amer) Est GFR (Non-Af Amer) Random Glucose (70-110) mg/dL Calcium (8.4-10.5) mg/dL Phosphorus (2.5-4.5) mg/dL Magnesium (1.7-2.2) mg/dL Total Bilirubin (0.2-1.3) mg/dL AST (17-59) U/L ALT (7-56) U/L Alkaline Phosphatase (38-126) U/L Lactate Dehydrogenase (333-699) U/L Total Creatine Kinase (35-230) U/L CK-MB (CK-2) (0.0-3.6) ng/mL CK-MB (CK-2) % (2.5-3.0) % Troponin I 25.40 H* ng/mL NT-Pro-B Natriuret Pep (0-450) pg/mL Total Protein (5.8-8.3) g/dL Albumin (3.0-4.8) g/dL Globulin gm/dL Albumin/Globulin Ratio (1.1-1.8) Amylase (35-125) U/L Lipase (23-300) U/L Procalcitonin (0.19-0.49) NG/ML Arterial Blood Potassium (3.6-5.2) mmol/L Venous Blood Potassium (3.6-5.2) mmol/L Urine Color (YELLOW) Urine Appearance (CLEAR) Urine pH (4.7-8.0) Ur Specific [place] (1.005-1.035) Urine Protein (<30 mg/dL) mg/dL Urine Glucose (UA) (NEGATIVE) mg/dL Urine Ketones (NEGATIVE) mg/dL Urine Blood (NEGATIVE) Urine Nitrate (NEGATIVE) Urine Bilirubin (NEGATIVE) Urine Urobilinogen (<1 E.U./dL) E.U./dL Ur Leukocyte Esterase (NEGATIVE) Dani/uL Urine RBC (0-2) /hpf Urine WBC (0-6) /hpf Ur Epithelial Cells (0-5) /hpf Urine Bacteria (NONE) /hpf Stool Occult Blood (NEGATIVE) Digoxin (0.8-2.0) ng/mL Influenza Typ A,B (EIA) (NEGATIVE) Blood Type Antibody Screen Crossmatch BBK History Checked 11/14/18 11/14/18 11/14/18 Range/Units 21:30 21:30 20:12 WBC (4.5-11.0) 10^3/uL RBC (3.5-6.1) 10^6/uL Hgb 7.9 L (14.0-18.0) g/dL Hct 25.9 L (42.0-52.0) % MCV (80.0-105.0) fl MCH (25.0-35.0) pg MCHC (31.0-37.0) g/dl RDW (11.5-14.5) % Plt Count (120.0-450.0) 10^3/uL MPV (7.0-11.0) fl Neut % (Auto) (50.0-68.0) % Lymph % (Auto) (22.0-35.0) % [place] % (Auto) (1.0-6.0) % Eos % (Auto) (1.5-5.0) % Baso % (Auto) (0.0-3.0) % Lymph # (Auto) (1.2-3.4) [place] # (Auto) (0.1-0.6) Eos # (Auto) (0.0-0.7) Baso # (Auto) (0.0-2.0) K/mm3 Absolute Neuts (auto) (1.4-6.5) Neutrophils % (Manual) (50.0-70.0) % Lymphocytes % (Manual) (22.0-35.0) % Monocytes % (Manual) (1.0-6.0) % Basophils % (Manual) (0.0-1.0) % Platelet Evaluation (NORMAL) PT (9.4-12.5) SECONDS INR APTT (26.9-38.3) Seconds pCO2 29 L (35-45) mm/Hg pO2 67 H 442.0 H (30-55) mm/Hg HCO3 16.0 L (21-28) mmol/L ABG pH 7.35 (7.35-7.45) ABG Total CO2 16.9 L (22-28) mmol.L ABG O2 Saturation 99.8 H (95-98) % ABG O2 Content 10.8 L (15-23) ML/dl ABG Base Excess -8.7 L (-2.0-3.0) mmol/L ABG Hemoglobin 6.9 L (11.7-17.4) g/dL ABG Carboxyhemoglobin 1.2 (0.5-1.5) % POC ABG HHb (Measured) 0.2 (0-5) % ABG Methemoglobin 0.9 (0.0-3.0) % ABG O2 Capacity 10.8 L (16-24) mL/dl ABG Potassium (3.6-5.2) mmol/L VBG pH 7.30 L (7.32-7.43) VBG pCO2 32.0 L (40-60) VBG HCO3 15.7 L (21-28) mmol/l VBG Total CO2 16.7 L (22-28) mmol.L VBG O2 Sat (Calc) 94.2 H (40-65) % VBG Base Excess -9.6 L (0.0-2.0) mmol/L VBG Potassium 3.8 (3.6-5.2) mmol/L Hgb O2 Saturation 97.7 (95.0-98.0) % Sodium 141.0 (132-148) mmol/L Chloride 116.0 H (98-107) mmol/L Glucose 286 H (75-110) mg/dl Lactate 1.0 (0.7-2.1) mmol/L FiO2 21.0 100.0 % Blood Gas Comments Crit Value Called To Crit Value Called By Blood Gas Notified Time Potassium (3.6-5.0) mmol/L Carbon Dioxide (21-33) mmol/L Anion Gap (10-20) BUN (7-21) mg/dL Creatinine (0.8-1.5) mg/dl Est GFR ( Amer) Est GFR (Non-Af Amer) Random Glucose (70-110) mg/dL Calcium (8.4-10.5) mg/dL Phosphorus (2.5-4.5) mg/dL Magnesium (1.7-2.2) mg/dL Total Bilirubin (0.2-1.3) mg/dL AST (17-59) U/L ALT (7-56) U/L Alkaline Phosphatase (38-126) U/L Lactate Dehydrogenase (333-699) U/L Total Creatine Kinase (35-230) U/L CK-MB (CK-2) (0.0-3.6) ng/mL CK-MB (CK-2) % (2.5-3.0) % Troponin I ng/mL NT-Pro-B Natriuret Pep (0-450) pg/mL Total Protein (5.8-8.3) g/dL Albumin (3.0-4.8) g/dL Globulin gm/dL Albumin/Globulin Ratio (1.1-1.8) Amylase (35-125) U/L Lipase (23-300) U/L Procalcitonin (0.19-0.49) NG/ML Arterial Blood Potassium (3.6-5.2) mmol/L Venous Blood Potassium 3.8 (3.6-5.2) mmol/L Urine Color (YELLOW) Urine Appearance (CLEAR) Urine pH (4.7-8.0) Ur Specific [place] (1.005-1.035) Urine Protein (<30 mg/dL) mg/dL Urine Glucose (UA) (NEGATIVE) mg/dL Urine Ketones (NEGATIVE) mg/dL Urine Blood (NEGATIVE) Urine Nitrate (NEGATIVE) Urine Bilirubin (NEGATIVE) Urine Urobilinogen (<1 E.U./dL) E.U./dL Ur Leukocyte Esterase (NEGATIVE) Dani/uL Urine RBC (0-2) /hpf Urine WBC (0-6) /hpf Ur Epithelial Cells (0-5) /hpf Urine Bacteria (NONE) /hpf Stool Occult Blood (NEGATIVE) Digoxin (0.8-2.0) ng/mL Influenza Typ A,B (EIA) (NEGATIVE) Blood Type Antibody Screen Crossmatch BBK History Checked 11/14/18 11/14/18 11/14/18 Range/Units 19:40 19:00 18:40 WBC (4.5-11.0) 10^3/uL RBC (3.5-6.1) 10^6/uL Hgb (14.0-18.0) g/dL Hct (42.0-52.0) % MCV (80.0-105.0) fl MCH (25.0-35.0) pg MCHC (31.0-37.0) g/dl RDW (11.5-14.5) % Plt Count (120.0-450.0) 10^3/uL MPV (7.0-11.0) fl Neut % (Auto) (50.0-68.0) % Lymph % (Auto) (22.0-35.0) % [place] % (Auto) (1.0-6.0) % Eos % (Auto) (1.5-5.0) % Baso % (Auto) (0.0-3.0) % Lymph # (Auto) (1.2-3.4) [place] # (Auto) (0.1-0.6) Eos # (Auto) (0.0-0.7) Baso # (Auto) (0.0-2.0) K/mm3 Absolute Neuts (auto) (1.4-6.5) Neutrophils % (Manual) (50.0-70.0) % Lymphocytes % (Manual) (22.0-35.0) % Monocytes % (Manual) (1.0-6.0) % Basophils % (Manual) (0.0-1.0) % Platelet Evaluation (NORMAL) PT (9.4-12.5) SECONDS INR APTT (26.9-38.3) Seconds pCO2 (35-45) mm/Hg pO2 (30-55) mm/Hg HCO3 (21-28) mmol/L ABG pH (7.35-7.45) ABG Total CO2 (22-28) mmol.L ABG O2 Saturation (95-98) % ABG O2 Content (15-23) ML/dl ABG Base Excess (-2.0-3.0) mmol/L ABG Hemoglobin (11.7-17.4) g/dL ABG Carboxyhemoglobin (0.5-1.5) % POC ABG HHb (Measured) (0-5) % ABG Methemoglobin (0.0-3.0) % ABG O2 Capacity (16-24) mL/dl ABG Potassium (3.6-5.2) mmol/L VBG pH (7.32-7.43) VBG pCO2 (40-60) VBG HCO3 (21-28) mmol/l VBG Total CO2 (22-28) mmol.L VBG O2 Sat (Calc) (40-65) % VBG Base Excess (0.0-2.0) mmol/L VBG Potassium (3.6-5.2) mmol/L Hgb O2 Saturation (95.0-98.0) % Sodium (132-148) mmol/L Chloride (98-107) mmol/L Glucose (75-110) mg/dl Lactate (0.7-2.1) mmol/L FiO2 % Blood Gas Comments Crit Value Called To Crit Value Called By Blood Gas Notified Time Potassium (3.6-5.0) mmol/L Carbon Dioxide (21-33) mmol/L Anion Gap (10-20) BUN (7-21) mg/dL Creatinine (0.8-1.5) mg/dl Est GFR ( Amer) Est GFR (Non-Af Amer) Random Glucose (70-110) mg/dL Calcium (8.4-10.5) mg/dL Phosphorus (2.5-4.5) mg/dL Magnesium (1.7-2.2) mg/dL Total Bilirubin (0.2-1.3) mg/dL AST (17-59) U/L ALT (7-56) U/L Alkaline Phosphatase (38-126) U/L Lactate Dehydrogenase (333-699) U/L Total Creatine Kinase (35-230) U/L CK-MB (CK-2) (0.0-3.6) ng/mL CK-MB (CK-2) % (2.5-3.0) % Troponin I ng/mL NT-Pro-B Natriuret Pep (0-450) pg/mL Total Protein (5.8-8.3) g/dL Albumin (3.0-4.8) g/dL Globulin gm/dL Albumin/Globulin Ratio (1.1-1.8) Amylase (35-125) U/L Lipase (23-300) U/L Procalcitonin (0.19-0.49) NG/ML Arterial Blood Potassium (3.6-5.2) mmol/L Venous Blood Potassium (3.6-5.2) mmol/L Urine Color Yellow (YELLOW) Urine Appearance Slight-cloudy (CLEAR) Urine pH 6.5 (4.7-8.0) Ur Specific [place] 1.010 (1.005-1.035) Urine Protein 30 H (<30 mg/dL) mg/dL Urine Glucose (UA) Negative (NEGATIVE) mg/dL Urine Ketones Negative (NEGATIVE) mg/dL Urine Blood Trace-lysed H (NEGATIVE) Urine Nitrate Negative (NEGATIVE) Urine Bilirubin Negative (NEGATIVE) Urine Urobilinogen 0.2 (<1 E.U./dL) E.U./dL Ur Leukocyte Esterase Large H (NEGATIVE) Dani/uL Urine RBC 1 - 3 H (0-2) /hpf Urine WBC Tntc H (0-6) /hpf Ur Epithelial Cells None (0-5) /hpf Urine Bacteria Trace (NONE) /hpf Stool Occult Blood (NEGATIVE) Digoxin 0.9 (0.8-2.0) ng/mL Influenza Typ A,B (EIA) Negative for flu a/b (NEGATIVE) Blood Type Antibody Screen Crossmatch BBK History Checked 11/14/18 11/14/18 11/14/18 Range/Units 18:40 18:40 18:19 WBC (4.5-11.0) 10^3/uL RBC (3.5-6.1) 10^6/uL Hgb (14.0-18.0) g/dL Hct (42.0-52.0) % MCV (80.0-105.0) fl MCH (25.0-35.0) pg MCHC (31.0-37.0) g/dl RDW (11.5-14.5) % Plt Count (120.0-450.0) 10^3/uL MPV (7.0-11.0) fl Neut % (Auto) (50.0-68.0) % Lymph % (Auto) (22.0-35.0) % [place] % (Auto) (1.0-6.0) % Eos % (Auto) (1.5-5.0) % Baso % (Auto) (0.0-3.0) % Lymph # (Auto) (1.2-3.4) [place] # (Auto) (0.1-0.6) Eos # (Auto) (0.0-0.7) Baso # (Auto) (0.0-2.0) K/mm3 Absolute Neuts (auto) (1.4-6.5) Neutrophils % (Manual) (50.0-70.0) % Lymphocytes % (Manual) (22.0-35.0) % Monocytes % (Manual) (1.0-6.0) % Basophils % (Manual) (0.0-1.0) % Platelet Evaluation (NORMAL) PT (9.4-12.5) SECONDS INR APTT (26.9-38.3) Seconds pCO2 (35-45) mm/Hg pO2 98 H (30-55) mm/Hg HCO3 (21-28) mmol/L ABG pH (7.35-7.45) ABG Total CO2 (22-28) mmol.L ABG O2 Saturation (95-98) % ABG O2 Content (15-23) ML/dl ABG Base Excess (-2.0-3.0) mmol/L ABG Hemoglobin (11.7-17.4) g/dL ABG Carboxyhemoglobin (0.5-1.5) % POC ABG HHb (Measured) (0-5) % ABG Methemoglobin (0.0-3.0) % ABG O2 Capacity (16-24) mL/dl ABG Potassium (3.6-5.2) mmol/L VBG pH 7.17 L* (7.32-7.43) VBG pCO2 43.0 (40-60) VBG HCO3 15.7 L (21-28) mmol/l VBG Total CO2 17.0 L (22-28) mmol.L VBG O2 Sat (Calc) 97.6 H (40-65) % VBG Base Excess -12.4 L (0.0-2.0) mmol/L VBG Potassium 4.6 (3.6-5.2) mmol/L Hgb O2 Saturation (95.0-98.0) % Sodium 139.0 (132-148) mmol/L Chloride 108.0 H (98-107) mmol/L Glucose 324 H (75-110) mg/dl Lactate 5.8 H* (0.7-2.1) mmol/L FiO2 21.0 % Blood Gas Comments Crit Value Called To Silverio rockwell Crit Value Called By Atc Blood Gas Notified Time 1834 Potassium (3.6-5.0) mmol/L Carbon Dioxide (21-33) mmol/L Anion Gap (10-20) BUN (7-21) mg/dL Creatinine (0.8-1.5) mg/dl Est GFR ( Amer) Est GFR (Non-Af Amer) Random Glucose (70-110) mg/dL Calcium (8.4-10.5) mg/dL Phosphorus (2.5-4.5) mg/dL Magnesium (1.7-2.2) mg/dL Total Bilirubin (0.2-1.3) mg/dL AST (17-59) U/L ALT (7-56) U/L Alkaline Phosphatase (38-126) U/L Lactate Dehydrogenase (333-699) U/L Total Creatine Kinase (35-230) U/L CK-MB (CK-2) (0.0-3.6) ng/mL CK-MB (CK-2) % (2.5-3.0) % Troponin I ng/mL NT-Pro-B Natriuret Pep 61432 H (0-450) pg/mL Total Protein (5.8-8.3) g/dL Albumin (3.0-4.8) g/dL Globulin gm/dL Albumin/Globulin Ratio (1.1-1.8) Amylase (35-125) U/L Lipase (23-300) U/L Procalcitonin 0.11 L (0.19-0.49) NG/ML Arterial Blood Potassium (3.6-5.2) mmol/L Venous Blood Potassium 4.6 (3.6-5.2) mmol/L Urine Color (YELLOW) Urine Appearance (CLEAR) Urine pH (4.7-8.0) Ur Specific [place] (1.005-1.035) Urine Protein (<30 mg/dL) mg/dL Urine Glucose (UA) (NEGATIVE) mg/dL Urine Ketones (NEGATIVE) mg/dL Urine Blood (NEGATIVE) Urine Nitrate (NEGATIVE) Urine Bilirubin (NEGATIVE) Urine Urobilinogen (<1 E.U./dL) E.U./dL Ur Leukocyte Esterase (NEGATIVE) Dani/uL Urine RBC (0-2) /hpf Urine WBC (0-6) /hpf Ur Epithelial Cells (0-5) /hpf Urine Bacteria (NONE) /hpf Stool Occult Blood (NEGATIVE) Digoxin (0.8-2.0) ng/mL Influenza Typ A,B (EIA) (NEGATIVE) Blood Type Antibody Screen Crossmatch BBK History Checked 11/14/18 11/14/18 11/14/18 Range/Units 18:19 18:19 18:19 WBC (4.5-11.0) 10^3/uL RBC (3.5-6.1) 10^6/uL Hgb (14.0-18.0) g/dL Hct (42.0-52.0) % MCV (80.0-105.0) fl MCH (25.0-35.0) pg MCHC (31.0-37.0) g/dl RDW (11.5-14.5) % Plt Count (120.0-450.0) 10^3/uL MPV (7.0-11.0) fl Neut % (Auto) (50.0-68.0) % Lymph % (Auto) (22.0-35.0) % [place] % (Auto) (1.0-6.0) % Eos % (Auto) (1.5-5.0) % Baso % (Auto) (0.0-3.0) % Lymph # (Auto) (1.2-3.4) [place] # (Auto) (0.1-0.6) Eos # (Auto) (0.0-0.7) Baso # (Auto) (0.0-2.0) K/mm3 Absolute Neuts (auto) (1.4-6.5) Neutrophils % (Manual) (50.0-70.0) % Lymphocytes % (Manual) (22.0-35.0) % Monocytes % (Manual) (1.0-6.0) % Basophils % (Manual) (0.0-1.0) % Platelet Evaluation (NORMAL) PT 14.4 H (9.4-12.5) SECONDS INR 1.30 APTT 30.7 (26.9-38.3) Seconds pCO2 (35-45) mm/Hg pO2 (30-55) mm/Hg HCO3 (21-28) mmol/L ABG pH (7.35-7.45) ABG Total CO2 (22-28) mmol.L ABG O2 Saturation (95-98) % ABG O2 Content (15-23) ML/dl ABG Base Excess (-2.0-3.0) mmol/L ABG Hemoglobin (11.7-17.4) g/dL ABG Carboxyhemoglobin (0.5-1.5) % POC ABG HHb (Measured) (0-5) % ABG Methemoglobin (0.0-3.0) % ABG O2 Capacity (16-24) mL/dl ABG Potassium (3.6-5.2) mmol/L VBG pH (7.32-7.43) VBG pCO2 (40-60) VBG HCO3 (21-28) mmol/l VBG Total CO2 (22-28) mmol.L VBG O2 Sat (Calc) (40-65) % VBG Base Excess (0.0-2.0) mmol/L VBG Potassium (3.6-5.2) mmol/L Hgb O2 Saturation (95.0-98.0) % Sodium 139 (132-148) mmol/L Chloride 107 (98-107) mmol/L Glucose (75-110) mg/dl Lactate (0.7-2.1) mmol/L FiO2 % Blood Gas Comments Crit Value Called To Crit Value Called By Blood Gas Notified Time Potassium 4.5 (3.6-5.0) mmol/L Carbon Dioxide 20 L (21-33) mmol/L Anion Gap 16 (10-20) BUN 31 H (7-21) mg/dL Creatinine 1.3 (0.8-1.5) mg/dl Est GFR ( Amer) > 60 Est GFR (Non-Af Amer) 56 Random Glucose 315 H* D (70-110) mg/dL Calcium 8.8 (8.4-10.5) mg/dL Phosphorus (2.5-4.5) mg/dL Magnesium (1.7-2.2) mg/dL Total Bilirubin 0.4 (0.2-1.3) mg/dL AST 121 H D (17-59) U/L ALT 20 (7-56) U/L Alkaline Phosphatase 110 (38-126) U/L Lactate Dehydrogenase 1830 H (333-699) U/L Total Creatine Kinase 327 H (35-230) U/L CK-MB (CK-2) 17.1 H (0.0-3.6) ng/mL CK-MB (CK-2) % 5.2 H (2.5-3.0) % Troponin I 25.80 H* D ng/mL NT-Pro-B Natriuret Pep (0-450) pg/mL Total Protein 7.3 (5.8-8.3) g/dL Albumin 3.3 (3.0-4.8) g/dL Globulin 4.0 gm/dL Albumin/Globulin Ratio 0.8 L (1.1-1.8) Amylase 54 (35-125) U/L Lipase 74 (23-300) U/L Procalcitonin (0.19-0.49) NG/ML Arterial Blood Potassium (3.6-5.2) mmol/L Venous Blood Potassium (3.6-5.2) mmol/L Urine Color (YELLOW) Urine Appearance (CLEAR) Urine pH (4.7-8.0) Ur Specific [place] (1.005-1.035) Urine Protein (<30 mg/dL) mg/dL Urine Glucose (UA) (NEGATIVE) mg/dL Urine Ketones (NEGATIVE) mg/dL Urine Blood (NEGATIVE) Urine Nitrate (NEGATIVE) Urine Bilirubin (NEGATIVE) Urine Urobilinogen (<1 E.U./dL) E.U./dL Ur Leukocyte Esterase (NEGATIVE) Dani/uL Urine RBC (0-2) /hpf Urine WBC (0-6) /hpf Ur Epithelial Cells (0-5) /hpf Urine Bacteria (NONE) /hpf Stool Occult Blood (NEGATIVE) Digoxin (0.8-2.0) ng/mL Influenza Typ A,B (EIA) (NEGATIVE) Blood Type O POSITIVE Antibody Screen Negative Crossmatch See Detail BBK History Checked Patient has bt 11/14/18 Range/Units 18:19 WBC 19.1 H D (4.5-11.0) 10^3/uL RBC 3.51 (3.5-6.1) 10^6/uL Hgb 9.1 L (14.0-18.0) g/dL Hct 30.3 L (42.0-52.0) % MCV 86.3 (80.0-105.0) fl MCH 25.9 (25.0-35.0) pg MCHC 30.0 L (31.0-37.0) g/dl RDW 16.2 H (11.5-14.5) % Plt Count 341 (120.0-450.0) 10^3/uL MPV 11.3 H (7.0-11.0) fl Neut % (Auto) 81.1 H (50.0-68.0) % Lymph % (Auto) 12.3 L (22.0-35.0) % [place] % (Auto) 5.6 (1.0-6.0) % Eos % (Auto) 0.6 L (1.5-5.0) % Baso % (Auto) 0.4 (0.0-3.0) % Lymph # (Auto) 2.4 (1.2-3.4) [place] # (Auto) 1.1 H (0.1-0.6) Eos # (Auto) 0.1 (0.0-0.7) Baso # (Auto) 0.07 (0.0-2.0) K/mm3 Absolute Neuts (auto) 15.49 H (1.4-6.5) Neutrophils % (Manual) (50.0-70.0) % Lymphocytes % (Manual) (22.0-35.0) % Monocytes % (Manual) (1.0-6.0) % Basophils % (Manual) (0.0-1.0) % Platelet Evaluation (NORMAL) PT (9.4-12.5) SECONDS INR APTT (26.9-38.3) Seconds pCO2 (35-45) mm/Hg pO2 (30-55) mm/Hg HCO3 (21-28) mmol/L ABG pH (7.35-7.45) ABG Total CO2 (22-28) mmol.L ABG O2 Saturation (95-98) % ABG O2 Content (15-23) ML/dl ABG Base Excess (-2.0-3.0) mmol/L ABG Hemoglobin (11.7-17.4) g/dL ABG Carboxyhemoglobin (0.5-1.5) % POC ABG HHb (Measured) (0-5) % ABG Methemoglobin (0.0-3.0) % ABG O2 Capacity (16-24) mL/dl ABG Potassium (3.6-5.2) mmol/L VBG pH (7.32-7.43) VBG pCO2 (40-60) VBG HCO3 (21-28) mmol/l VBG Total CO2 (22-28) mmol.L VBG O2 Sat (Calc) (40-65) % VBG Base Excess (0.0-2.0) mmol/L VBG Potassium (3.6-5.2) mmol/L Hgb O2 Saturation (95.0-98.0) % Sodium (132-148) mmol/L Chloride (98-107) mmol/L Glucose (75-110) mg/dl Lactate (0.7-2.1) mmol/L FiO2 % Blood Gas Comments Crit Value Called To Crit Value Called By Blood Gas Notified Time Potassium (3.6-5.0) mmol/L Carbon Dioxide (21-33) mmol/L Anion Gap (10-20) BUN (7-21) mg/dL Creatinine (0.8-1.5) mg/dl Est GFR ( Amer) Est GFR (Non-Af Amer) Random Glucose (70-110) mg/dL Calcium (8.4-10.5) mg/dL Phosphorus (2.5-4.5) mg/dL Magnesium (1.7-2.2) mg/dL Total Bilirubin (0.2-1.3) mg/dL AST (17-59) U/L ALT (7-56) U/L Alkaline Phosphatase (38-126) U/L Lactate Dehydrogenase (333-699) U/L Total Creatine Kinase (35-230) U/L CK-MB (CK-2) (0.0-3.6) ng/mL CK-MB (CK-2) % (2.5-3.0) % Troponin I ng/mL NT-Pro-B Natriuret Pep (0-450) pg/mL Total Protein (5.8-8.3) g/dL Albumin (3.0-4.8) g/dL Globulin gm/dL Albumin/Globulin Ratio (1.1-1.8) Amylase (35-125) U/L Lipase (23-300) U/L Procalcitonin (0.19-0.49) NG/ML Arterial Blood Potassium (3.6-5.2) mmol/L Venous Blood Potassium (3.6-5.2) mmol/L Urine Color (YELLOW) Urine Appearance (CLEAR) Urine pH (4.7-8.0) Ur Specific [place] (1.005-1.035) Urine Protein (<30 mg/dL) mg/dL Urine Glucose (UA) (NEGATIVE) mg/dL Urine Ketones (NEGATIVE) mg/dL Urine Blood (NEGATIVE) Urine Nitrate (NEGATIVE) Urine Bilirubin (NEGATIVE) Urine Urobilinogen (<1 E.U./dL) E.U./dL Ur Leukocyte Esterase (NEGATIVE) Dani/uL Urine RBC (0-2) /hpf Urine WBC (0-6) /hpf Ur Epithelial Cells (0-5) /hpf Urine Bacteria (NONE) /hpf Stool Occult Blood (NEGATIVE) Digoxin (0.8-2.0) ng/mL Influenza Typ A,B (EIA) (NEGATIVE) Blood Type Antibody Screen Crossmatch BBK History Checked Laboratory Results - last 24 hr 11/14/18 11/14/18 11/14/18 18:19 18:19 18:19 WBC 19.1 H D RBC 3.51 Hgb 9.1 L Hct 30.3 L MCV 86.3 MCH 25.9 MCHC 30.0 L RDW 16.2 H Plt Count 341 MPV 11.3 H Neut % (Auto) 81.1 H Lymph % (Auto) 12.3 L [place] % (Auto) 5.6 Eos % (Auto) 0.6 L Baso % (Auto) 0.4 Lymph # (Auto) 2.4 [place] # (Auto) 1.1 H Eos # (Auto) 0.1 Baso # (Auto) 0.07 Absolute Neuts (auto) 15.49 H Neutrophils % (Manual) Lymphocytes % (Manual) Monocytes % (Manual) Basophils % (Manual) Platelet Evaluation PT 14.4 H INR 1.30 APTT 30.7 pCO2 pO2 HCO3 ABG pH ABG Total CO2 ABG O2 Saturation ABG O2 Content ABG Base Excess ABG Hemoglobin ABG Carboxyhemoglobin POC ABG HHb (Measured) ABG Methemoglobin ABG O2 Capacity ABG Potassium VBG pH VBG pCO2 VBG HCO3 VBG Total CO2 VBG O2 Sat (Calc) VBG Base Excess VBG Potassium Hgb O2 Saturation Sodium 139 Chloride 107 Glucose Lactate FiO2 Blood Gas Comments Crit Value Called To Crit Value Called By Blood Gas Notified Time Potassium 4.5 Carbon Dioxide 20 L Anion Gap 16 BUN 31 H Creatinine 1.3 Est GFR ( Amer) > 60 Est GFR (Non-Af Amer) 56 Random Glucose 315 H* D Calcium 8.8 Phosphorus Magnesium Total Bilirubin 0.4 AST 121 H D ALT 20 Alkaline Phosphatase 110 Lactate Dehydrogenase 1830 H Total Creatine Kinase 327 H CK-MB (CK-2) 17.1 H CK-MB (CK-2) % 5.2 H Troponin I 25.80 H* D NT-Pro-B Natriuret Pep Total Protein 7.3 Albumin 3.3 Globulin 4.0 Albumin/Globulin Ratio 0.8 L Amylase 54 Lipase 74 Procalcitonin Arterial Blood Potassium Venous Blood Potassium Urine Color Urine Appearance Urine pH Ur Specific [place] Urine Protein Urine Glucose (UA) Urine Ketones Urine Blood Urine Nitrate Urine Bilirubin Urine Urobilinogen Ur Leukocyte Esterase Urine RBC Urine WBC Ur Epithelial Cells Urine Bacteria Stool Occult Blood Digoxin Influenza Typ A,B (EIA) Blood Type Antibody Screen Crossmatch BBK History Checked 11/14/18 11/14/18 11/14/18 18:19 18:19 18:40 WBC RBC Hgb Hct MCV MCH MCHC RDW Plt Count MPV Neut % (Auto) Lymph % (Auto) [place] % (Auto) Eos % (Auto) Baso % (Auto) Lymph # (Auto) [place] # (Auto) Eos # (Auto) Baso # (Auto) Absolute Neuts (auto) Neutrophils % (Manual) Lymphocytes % (Manual) Monocytes % (Manual) Basophils % (Manual) Platelet Evaluation PT INR APTT pCO2 pO2 98 H HCO3 ABG pH ABG Total CO2 ABG O2 Saturation ABG O2 Content ABG Base Excess ABG Hemoglobin ABG Carboxyhemoglobin POC ABG HHb (Measured) ABG Methemoglobin ABG O2 Capacity ABG Potassium VBG pH 7.17 L* VBG pCO2 43.0 VBG HCO3 15.7 L VBG Total CO2 17.0 L VBG O2 Sat (Calc) 97.6 H VBG Base Excess -12.4 L VBG Potassium 4.6 Hgb O2 Saturation Sodium 139.0 Chloride 108.0 H Glucose 324 H Lactate 5.8 H* FiO2 21.0 Blood Gas Comments Crit Value Called To Silverio rockwell Crit Value Called By Atc Blood Gas Notified Time 1835 Potassium Carbon Dioxide Anion Gap BUN Creatinine Est GFR ( Amer) Est GFR (Non-Af Amer) Random Glucose Calcium Phosphorus Magnesium Total Bilirubin AST ALT Alkaline Phosphatase Lactate Dehydrogenase Total Creatine Kinase CK-MB (CK-2) CK-MB (CK-2) % Troponin I NT-Pro-B Natriuret Pep 62737 H Total Protein Albumin Globulin Albumin/Globulin Ratio Amylase Lipase Procalcitonin Arterial Blood Potassium Venous Blood Potassium 4.6 Urine Color Urine Appearance Urine pH Ur Specific [place] Urine Protein Urine Glucose (UA) Urine Ketones Urine Blood Urine Nitrate Urine Bilirubin Urine Urobilinogen Ur Leukocyte Esterase Urine RBC Urine WBC Ur Epithelial Cells Urine Bacteria Stool Occult Blood Digoxin Influenza Typ A,B (EIA) Blood Type O POSITIVE Antibody Screen Negative Crossmatch See Detail BBK History Checked Patient has bt 11/14/18 11/14/18 11/14/18 18:40 18:40 19:00 WBC RBC Hgb Hct MCV MCH MCHC RDW Plt Count MPV Neut % (Auto) Lymph % (Auto) [place] % (Auto) Eos % (Auto) Baso % (Auto) Lymph # (Auto) [place] # (Auto) Eos # (Auto) Baso # (Auto) Absolute Neuts (auto) Neutrophils % (Manual) Lymphocytes % (Manual) Monocytes % (Manual) Basophils % (Manual) Platelet Evaluation PT INR APTT pCO2 pO2 HCO3 ABG pH ABG Total CO2 ABG O2 Saturation ABG O2 Content ABG Base Excess ABG Hemoglobin ABG Carboxyhemoglobin POC ABG HHb (Measured) ABG Methemoglobin ABG O2 Capacity ABG Potassium VBG pH VBG pCO2 VBG HCO3 VBG Total CO2 VBG O2 Sat (Calc) VBG Base Excess VBG Potassium Hgb O2 Saturation Sodium Chloride Glucose Lactate FiO2 Blood Gas Comments Crit Value Called To Crit Value Called By Blood Gas Notified Time Potassium Carbon Dioxide Anion Gap BUN Creatinine Est GFR ( Amer) Est GFR (Non-Af Amer) Random Glucose Calcium Phosphorus Magnesium Total Bilirubin AST ALT Alkaline Phosphatase Lactate Dehydrogenase Total Creatine Kinase CK-MB (CK-2) CK-MB (CK-2) % Troponin I NT-Pro-B Natriuret Pep Total Protein Albumin Globulin Albumin/Globulin Ratio Amylase Lipase Procalcitonin 0.11 L Arterial Blood Potassium Venous Blood Potassium Urine Color Yellow Urine Appearance Slight-cloudy Urine pH 6.5 Ur Specific [place] 1.010 Urine Protein 30 H Urine Glucose (UA) Negative Urine Ketones Negative Urine Blood Trace-lysed H Urine Nitrate Negative Urine Bilirubin Negative Urine Urobilinogen 0.2 Ur Leukocyte Esterase Large H Urine RBC 1 - 3 H Urine WBC Tntc H Ur Epithelial Cells None Urine Bacteria Trace Stool Occult Blood Digoxin 0.9 Influenza Typ A,B (EIA) Blood Type Antibody Screen Crossmatch BBK History Checked 11/14/18 11/14/18 11/14/18 19:40 20:12 21:30 WBC RBC Hgb 7.9 L Hct 25.9 L MCV MCH MCHC RDW Plt Count MPV Neut % (Auto) Lymph % (Auto) [place] % (Auto) Eos % (Auto) Baso % (Auto) Lymph # (Auto) [place] # (Auto) Eos # (Auto) Baso # (Auto) Absolute Neuts (auto) Neutrophils % (Manual) Lymphocytes % (Manual) Monocytes % (Manual) Basophils % (Manual) Platelet Evaluation PT INR APTT pCO2 29 L pO2 442.0 H HCO3 16.0 L ABG pH 7.35 ABG Total CO2 16.9 L ABG O2 Saturation 99.8 H ABG O2 Content 10.8 L ABG Base Excess -8.7 L ABG Hemoglobin 6.9 L ABG Carboxyhemoglobin 1.2 POC ABG HHb (Measured) 0.2 ABG Methemoglobin 0.9 ABG O2 Capacity 10.8 L ABG Potassium VBG pH VBG pCO2 VBG HCO3 VBG Total CO2 VBG O2 Sat (Calc) VBG Base Excess VBG Potassium Hgb O2 Saturation 97.7 Sodium Chloride Glucose Lactate FiO2 100.0 Blood Gas Comments Crit Value Called To Crit Value Called By Blood Gas Notified Time Potassium Carbon Dioxide Anion Gap BUN Creatinine Est GFR ( Amer) Est GFR (Non-Af Amer) Random Glucose Calcium Phosphorus Magnesium Total Bilirubin AST ALT Alkaline Phosphatase Lactate Dehydrogenase Total Creatine Kinase CK-MB (CK-2) CK-MB (CK-2) % Troponin I NT-Pro-B Natriuret Pep Total Protein Albumin Globulin Albumin/Globulin Ratio Amylase Lipase Procalcitonin Arterial Blood Potassium Venous Blood Potassium Urine Color Urine Appearance Urine pH Ur Specific [place] Urine Protein Urine Glucose (UA) Urine Ketones Urine Blood Urine Nitrate Urine Bilirubin Urine Urobilinogen Ur Leukocyte Esterase Urine RBC Urine WBC Ur Epithelial Cells Urine Bacteria Stool Occult Blood Digoxin Influenza Typ A,B (EIA) Negative for flu a/b Blood Type Antibody Screen Crossmatch BBK History Checked 11/14/18 11/15/18 11/15/18 21:30 00:48 02:00 WBC RBC Hgb 7.8 L Hct 25.5 L MCV MCH MCHC RDW Plt Count MPV Neut % (Auto) Lymph % (Auto) [place] % (Auto) Eos % (Auto) Baso % (Auto) Lymph # (Auto) [place] # (Auto) Eos # (Auto) Baso # (Auto) Absolute Neuts (auto) Neutrophils % (Manual) Lymphocytes % (Manual) Monocytes % (Manual) Basophils % (Manual) Platelet Evaluation PT INR APTT pCO2 pO2 67 H HCO3 ABG pH ABG Total CO2 ABG O2 Saturation ABG O2 Content ABG Base Excess ABG Hemoglobin ABG Carboxyhemoglobin POC ABG HHb (Measured) ABG Methemoglobin ABG O2 Capacity ABG Potassium VBG pH 7.30 L VBG pCO2 32.0 L VBG HCO3 15.7 L VBG Total CO2 16.7 L VBG O2 Sat (Calc) 94.2 H VBG Base Excess -9.6 L VBG Potassium 3.8 Hgb O2 Saturation Sodium 141.0 Chloride 116.0 H Glucose 286 H Lactate 1.0 FiO2 21.0 Blood Gas Comments Crit Value Called To Crit Value Called By Blood Gas Notified Time Potassium Carbon Dioxide Anion Gap BUN Creatinine Est GFR ( Amer) Est GFR (Non-Af Amer) Random Glucose Calcium Phosphorus Magnesium Total Bilirubin AST ALT Alkaline Phosphatase Lactate Dehydrogenase Total Creatine Kinase CK-MB (CK-2) CK-MB (CK-2) % Troponin I 25.40 H* NT-Pro-B Natriuret Pep Total Protein Albumin Globulin Albumin/Globulin Ratio Amylase Lipase Procalcitonin Arterial Blood Potassium Venous Blood Potassium 3.8 Urine Color Urine Appearance Urine pH Ur Specific [place] Urine Protein Urine Glucose (UA) Urine Ketones Urine Blood Urine Nitrate Urine Bilirubin Urine Urobilinogen Ur Leukocyte Esterase Urine RBC Urine WBC Ur Epithelial Cells Urine Bacteria Stool Occult Blood Digoxin Influenza Typ A,B (EIA) Blood Type Antibody Screen Crossmatch BBK History Checked 11/15/18 11/15/18 11/15/18 06:20 07:00 07:00 WBC 14.1 H D RBC 3.27 L Hgb 8.7 L Hct 27.9 L MCV 85.3 MCH 26.6 MCHC 31.2 RDW 15.6 H Plt Count 188 MPV 11.3 H Neut % (Auto) 93.2 H Lymph % (Auto) 3.8 L [place] % (Auto) 2.9 Eos % (Auto) 0.0 L Baso % (Auto) 0.1 Lymph # (Auto) 0.5 L [place] # (Auto) 0.4 Eos # (Auto) 0.0 Baso # (Auto) 0.02 Absolute Neuts (auto) 13.10 H Neutrophils % (Manual) 97 H Lymphocytes % (Manual) 1 L Monocytes % (Manual) 1 Basophils % (Manual) 1 Platelet Evaluation Normal PT INR APTT pCO2 26 L pO2 275.0 H HCO3 15.0 L ABG pH 7.37 ABG Total CO2 15.8 L ABG O2 Saturation 99.5 H ABG O2 Content 14.8 L ABG Base Excess -9.0 L ABG Hemoglobin 10.3 L ABG Carboxyhemoglobin 1.3 POC ABG HHb (Measured) 0.5 ABG Methemoglobin 1.1 ABG O2 Capacity 14.9 L ABG Potassium VBG pH VBG pCO2 VBG HCO3 VBG Total CO2 VBG O2 Sat (Calc) VBG Base Excess VBG Potassium Hgb O2 Saturation 97.1 Sodium 143 Chloride 113 H Glucose Lactate FiO2 60.0 Blood Gas Comments Crit Value Called To Crit Value Called By Blood Gas Notified Time Potassium 4.0 Carbon Dioxide 18 L Anion Gap 15 BUN 27 H Creatinine 1.2 Est GFR ( Amer) > 60 Est GFR (Non-Af Amer) > 60 Random Glucose 276 H Calcium 7.8 L Phosphorus 4.6 H Magnesium 1.5 L Total Bilirubin 0.5 AST 89 H D ALT 21 Alkaline Phosphatase 98 Lactate Dehydrogenase Total Creatine Kinase CK-MB (CK-2) CK-MB (CK-2) % Troponin I 24.40 H* NT-Pro-B Natriuret Pep Total Protein 6.6 Albumin 3.0 Globulin 3.7 Albumin/Globulin Ratio 0.8 L Amylase Lipase Procalcitonin Arterial Blood Potassium Venous Blood Potassium Urine Color Urine Appearance Urine pH Ur Specific [place] Urine Protein Urine Glucose (UA) Urine Ketones Urine Blood Urine Nitrate Urine Bilirubin Urine Urobilinogen Ur Leukocyte Esterase Urine RBC Urine WBC Ur Epithelial Cells Urine Bacteria Stool Occult Blood Digoxin Influenza Typ A,B (EIA) Blood Type Antibody Screen Crossmatch BBK History Checked 11/15/18 11/15/18 11/15/18 08:30 09:30 13:40 WBC RBC Hgb 10.4 L Hct 33.2 L MCV MCH MCHC RDW Plt Count MPV Neut % (Auto) Lymph % (Auto) [place] % (Auto) Eos % (Auto) Baso % (Auto) Lymph # (Auto) [place] # (Auto) Eos # (Auto) Baso # (Auto) Absolute Neuts (auto) Neutrophils % (Manual) Lymphocytes % (Manual) Monocytes % (Manual) Basophils % (Manual) Platelet Evaluation PT INR APTT pCO2 28 L pO2 284.0 H HCO3 13.8 L ABG pH 7.30 L ABG Total CO2 14.7 L ABG O2 Saturation 99.8 H ABG O2 Content ABG Base Excess -11.1 L ABG Hemoglobin ABG Carboxyhemoglobin POC ABG HHb (Measured) ABG Methemoglobin ABG O2 Capacity ABG Potassium 3.7 VBG pH VBG pCO2 VBG HCO3 VBG Total CO2 VBG O2 Sat (Calc) VBG Base Excess VBG Potassium Hgb O2 Saturation Sodium 142.0 Chloride 117.0 H Glucose 341 H Lactate 2.7 H FiO2 100.0 Blood Gas Comments Status post-cardiac arrest Crit Value Called To Dr. casanova Crit Value Called By Josie duarte 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 Blood Gas Notified Time 940 Potassium Carbon Dioxide Anion Gap BUN Creatinine Est GFR ( Amer) Est GFR (Non-Af Amer) Random Glucose Calcium Phosphorus Magnesium Total Bilirubin AST ALT Alkaline Phosphatase Lactate Dehydrogenase Total Creatine Kinase CK-MB (CK-2) CK-MB (CK-2) % Troponin I NT-Pro-B Natriuret Pep Total Protein Albumin Globulin Albumin/Globulin Ratio Amylase Lipase Procalcitonin Arterial Blood Potassium 3.7 Venous Blood Potassium Urine Color Urine Appearance Urine pH Ur Specific [place] Urine Protein Urine Glucose (UA) Urine Ketones Urine Blood Urine Nitrate Urine Bilirubin Urine Urobilinogen Ur Leukocyte Esterase Urine RBC Urine WBC Ur Epithelial Cells Urine Bacteria Stool Occult Blood Negative Digoxin Influenza Typ A,B (EIA) Blood Type Antibody Screen Crossmatch BBK History Checked 11/15/18 13:40 WBC RBC Hgb Hct MCV MCH MCHC RDW Plt Count MPV Neut % (Auto) Lymph % (Auto) [place] % (Auto) Eos % (Auto) Baso % (Auto) Lymph # (Auto) [place] # (Auto) Eos # (Auto) Baso # (Auto) Absolute Neuts (auto) Neutrophils % (Manual) Lymphocytes % (Manual) Monocytes % (Manual) Basophils % (Manual) Platelet Evaluation PT INR APTT pCO2 pO2 47 HCO3 ABG pH ABG Total CO2 ABG O2 Saturation ABG O2 Content ABG Base Excess ABG Hemoglobin ABG Carboxyhemoglobin POC ABG HHb (Measured) ABG Methemoglobin ABG O2 Capacity ABG Potassium VBG pH 7.07 L* VBG pCO2 49.0 VBG HCO3 14.2 L VBG Total CO2 15.7 L VBG O2 Sat (Calc) 75.7 H VBG Base Excess -15.8 L VBG Potassium 3.7 Hgb O2 Saturation Sodium 142.0 Chloride 113.0 H Glucose 463 H* D Lactate 2.5 H FiO2 21.0 Blood Gas Comments Crit Value Called To Michelle sanchez Crit Value Called By Ab Blood Gas Notified Time 1350 Potassium Carbon Dioxide Anion Gap BUN Creatinine Est GFR ( Amer) Est GFR (Non-Af Amer) Random Glucose Calcium Phosphorus Magnesium Total Bilirubin AST ALT Alkaline Phosphatase Lactate Dehydrogenase Total Creatine Kinase CK-MB (CK-2) CK-MB (CK-2) % Troponin I NT-Pro-B Natriuret Pep Total Protein Albumin Globulin Albumin/Globulin Ratio Amylase Lipase Procalcitonin Arterial Blood Potassium Venous Blood Potassium 3.7 Urine Color Urine Appearance Urine pH Ur Specific [place] Urine Protein Urine Glucose (UA) Urine Ketones Urine Blood Urine Nitrate Urine Bilirubin Urine Urobilinogen Ur Leukocyte Esterase Urine RBC Urine WBC Ur Epithelial Cells Urine Bacteria Stool Occult Blood Digoxin Influenza Typ A,B (EIA) Blood Type Antibody Screen Crossmatch BBK History Checked Radiology Impressions: Radiology Impressions Chest X-Ray 11/14/18 18:15 IMPRESSION: No acute findings. Head CT 11/14/18 19:09 IMPRESSION: No acute intracranial abnormality. Chronic lacunar infarctions in the right dennison radiata and basal ganglia. Mild chronic microangiopathic changes and mild age-related global parenchymal volume loss. A preliminary report was provided by [facility]. Chest X-Ray 11/14/18 20:30 IMPRESSION: Endotracheal tube terminates in the mid trachea. The nasogastric tube terminates in the stomach. Patchy airspace disease in the right upper and lower lobe could represent atelectasis or venous congestion. Chest X-Ray 11/15/18 05:00 IMPRESSION: Stable position of endotracheal and nasogastric tubes. No acute findings. Chest X-Ray 11/15/18 09:21 IMPRESSION: No active pulmonary disease. Moderate cardiomegaly and pulmonary venous congestion. Stable position of support tubes. EKG/Cardiology Studies: Cardiology / EKG Studies 11/14/18 18:15 ELECTROCARDIOGRAM Stat Comment: Reason For Exam: gi bleed 11/15/18 00:15 EKG [ELECTROCARDIOGRAM] Q6H Comment: Reason For Exam: trop 25.80 11/15/18 06:15 EKG [ELECTROCARDIOGRAM] Q6H Comment: Reason For Exam: trop 25.80 11/15/18 10:14 EKG [ELECTROCARDIOGRAM] Stat Comment: Reason For Exam: Code Blue Review of Systems - Review of Systems Systems not reviewed;Unavailable: Intubated Assessment/Plan - Assessment and Plan (Free Text) Plan: 63 year old male with a PMHx of severely dilated cardiomyopathy EF 14%, moderate pulmonary hypertension, paroxysmal atrial fibrillation, ITP normocytic anemia, DM II, hypertension, pseudogout, anxiety, PVD who was brought in by EMS as he was found pulseness in ventricular fibrillation: Cardiovascular -cardiogenic shock -found to be in VFib at home and 1 instance of VFib in ICU -Maintain MAP>65 -amiodarone drip, levophed drip -imdur 30mg po qd, hydralazine 25mg po qid, lipitor 40mg po din, metoprolol tartrate 25mg po bid (all administered via ngt) -S/P cardiac arrest; troponin 25.80 -> 25.40 -> 24 -code freeze initiated -BNP 22,500 -f/u echo -Cardiology consulted Gastrintestinal -there were reports of a dark bowel movement, it must be noted patient is on iron at home; r/o GI bleed -transfused 3u pRBCs with appropriate response -Currently on Protonix drip -FOBT #1 positive -FOBT #2 negative -no lashawn blood seen on rectal exam -Gastrotenterology consulted, Dr Hardy Infectious Disease -r/o HCAP versus urine as source -UA shows large Leukocyte esterase, Urine WBC Tntc, negative nitrate -cxr 11/15/18: * no active pulmonary dz, moderate cardiomegaly and pulmonary venous congestion -patient currently on Doxycycline 100mg ivpb q12, Vancomycin 1g ivpb qd, Zosyn 3.375g ivpb q12 -procalc 0.11 -f/u blood cx, urine cx, sputum cx, mrsa screen -ID consulted, Dr Fernandes Neurologic -Patient intubated, sedated on propofol and paralyzed on nimbex -Neurology consulted for AMS -CT head 11/15/18 * CT head 11/14: no acute intracrainal abnormality, chronic lacunar infarctions in right dennison radiata and basal ganglia, mild chronic microangiopathic changes and mild age related global parenchymal volume loss Pulmonary -Maintain O2 sat >95% -Currently on PRVC: FiO2 60%, PEEP 5, RR 14, TV 400 -Repeat ABG and CXR in morning -Pulmonology consulted, Dr Burr Renal -Maintain euvolemia -Monitor I&O -Replete electrolytes as needed Endocrine -Maintain euvolemia, euthermia, euglycemia Code Status: DNR Seen and discussed with Dr Casanova <Blake Casanova - Last Filed: 11/15/18 17:55> CCU Objective - Vital Signs / Intake & Output Vital Signs (Last 4 hours): Vital Signs Pulse BP Pulse Ox 11/15/18 17:35 96 H 125/62 11/15/18 17:34 96 H 125/62 11/15/18 15:20 76 99 11/15/18 15:15 68 93/52 L 100 11/15/18 15:10 76 100 11/15/18 15:00 73 93/61 L 100 11/15/18 14:50 70 100 11/15/18 14:45 79 97/60 L 100 11/15/18 14:40 77 100 11/15/18 14:30 79 94/67 L 100 11/15/18 14:20 82 100 11/15/18 14:15 82 105/83 100 11/15/18 14:10 82 100 11/15/18 14:00 83 104/71 100 Intake and Output (Last 8hrs): Intake & Output 11/15/18 11/15/18 11/15/18 06:59 14:59 22:59 Intake Total 1780 10 Output Total 910 Balance 870 10 Intake: IV 1080 10 Left Antecubital 160 Right Femoral 900 Other 700 Output: Gastric Amount 10 Stomach 10 Urine 900 Urethral (Ash) 900 Other: # Bowel Movements 1 - Medications Active Medications: Active Medications Generic Name Dose Route Start Last Admin Trade Name Freq PRN Reason Stop Dose Admin Aspirin 81 mg 11/15/18 16:45 11/15/18 17:29 Aspirin Chewable PO 81 mg DAILY JHON Administration Atorvastatin Calcium 80 mg 11/15/18 17:00 11/15/18 17:29 Lipitor PO 80 mg DIN JHON Administration Dextrose 0 ml 11/15/18 16:18 Dextrose 50% Inj IV STAT PRN Hypoglycemia Protocol Protocol Hydralazine HCl 25 mg 11/15/18 10:00 11/15/18 17:34 Apresoline PO 25 mg QID JHON Administration NOREPINEPHRINE BIT/0.9 % NACL 4 mg in 250 mls @ 15 mls/hr 11/14/18 18:18 11/14/18 23:11 Levophed 4 Mg/ 250 Ml Ns Premixed IV 0 mcg/min .[id number] PRN 0 mls/hr TITRATE PER MD ORDER Titration Protocol 4 MCG/MIN Sodium Chloride 1,000 mls @ 100 mls/hr 11/14/18 19:00 11/14/18 20:29 Sodium Chloride 0.9% IV 100 mls/hr .Q10H JHON Administration Piperacillin Sod/Tazobactam Sod 100 mls @ 25 mls/hr 11/14/18 22:00 11/15/18 11:30 Zosyn 3.375 In Ns 100ml IVPB 11/23/18 22:01 25 mls/hr Q12 JHON Administration Protocol Vancomycin HCl 1 gm in 250 mls @ 167 mls/hr 11/15/18 10:00 11/15/18 10:19 Vancomycin 1gm IVPB 11/23/18 10:01 167 mls/hr DAILY JHON Administration Protocol Doxycycline Hyclate 100 mg/ 100 mls @ 100 mls/hr 11/14/18 22:00 11/15/18 10:57 Sodium Chloride IVPB 11/22/18 22:01 100 mls/hr Q12 JHON Administration Protocol Amiodarone HCl/Dextrose 360 mg in 200 mls @ 33.333 mls/hr 11/15/18 09:21 11/15/18 09:45 Nexterone 360 Mg In D5w 200 Ml (Premix) IV 33.333 mls/hr .Q6H JHON Administration Protocol 1 MG/MIN Levetiracetam 100 mls @ 460 mls/hr 11/15/18 10:00 11/15/18 17:18 Keppra 1000mg/100ml Ns IV 460 mls/hr Q12 JHON Administration Cisatracurium Besylate 200 mg/ 270 mls @ 6.8 mls/hr 11/15/18 10:44 11/15/18 13:30 Sodium Chloride IV 0.5 mcg/kg/min .Q24H PRN 3.4 mls/hr TITRATE PER MD ORDER Titration Protocol 1 MCG/KG/MIN Propofol 1,000 mg in 100 mls @ 2.517 mls/hr 11/15/18 12:11 11/15/18 12:30 Diprivan IV 5 mcg/kg/min .Q24H PRN 2.517 mls/hr TITRATE PER MD ORDER Administration Protocol 5 MCG/KG/MIN Dextrose 1,000 mls @ 0 mls/hr 11/15/18 16:18 Dextrose 5% In Water 1000 Ml IV .Q0M PRN Hypoglycemia Protocol Protocol Per Protocol Heparin Sodium/Sodium Chloride 25,000 units in 250 mls @ 10.07 mls/hr 11/15/18 16:45 11/15/18 17:12 Heparin 76743 Units/250ml 1/2 Normal Saline IV 12 units/kg/hr .Q24H JHON 10.07 mls/hr Administration Protocol 12 UNITS/KG/HR Insulin Human Regular 100 100 mls @ 3 mls/hr 11/15/18 17:30 units/ Sodium Chloride IV .Q24H PRN TITRATE PER MD ORDER Protocol 3 UNITS/HR Isosorbide Mononitrate 30 mg 11/15/18 10:00 11/15/18 17:19 Imdur Er PO Not Given DAILY JHON Metoprolol Tartrate 25 mg 11/15/18 10:00 11/15/18 17:35 Lopressor PO 25 mg BID JHON Administration Ondansetron HCl 4 mg 11/15/18 04:15 11/15/18 05:03 Zofran Inj IVP 4 mg Q6H PRN Administration Nausea/Vomiting Pantoprazole Sodium 40 mg 11/15/18 22:00 Protonix Inj IVP Q12 JHON - Patient Studies Lab Studies: Lab Studies 11/15/18 11/15/18 11/15/18 Range/Units 17:00 16:11 15:00 WBC (4.5-11.0) 10^3/uL RBC (3.5-6.1) 10^6/uL Hgb (14.0-18.0) g/dL Hct (42.0-52.0) % MCV (80.0-105.0) fl MCH (25.0-35.0) pg MCHC (31.0-37.0) g/dl RDW (11.5-14.5) % Plt Count (120.0-450.0) 10^3/uL MPV (7.0-11.0) fl Neut % (Auto) (50.0-68.0) % Lymph % (Auto) (22.0-35.0) % [place] % (Auto) (1.0-6.0) % Eos % (Auto) (1.5-5.0) % Baso % (Auto) (0.0-3.0) % Lymph # (Auto) (1.2-3.4) [place] # (Auto) (0.1-0.6) Eos # (Auto) (0.0-0.7) Baso # (Auto) (0.0-2.0) K/mm3 Absolute Neuts (auto) (1.4-6.5) Neutrophils % (Manual) (50.0-70.0) % Lymphocytes % (Manual) (22.0-35.0) % Monocytes % (Manual) (1.0-6.0) % Basophils % (Manual) (0.0-1.0) % Platelet Evaluation (NORMAL) PT (9.4-12.5) SECONDS INR APTT (26.9-38.3) Seconds pCO2 27 L (35-45) mm/Hg pO2 153.0 H (30-55) mm/Hg HCO3 13.3 L (21-28) mmol/L ABG pH 7.30 L (7.35-7.45) ABG Total CO2 14.1 L (22-28) mmol.L ABG O2 Saturation 99.6 H (95-98) % ABG O2 Content (15-23) ML/dl ABG Base Excess -11.5 L (-2.0-3.0) mmol/L ABG Hemoglobin (11.7-17.4) g/dL ABG Carboxyhemoglobin (0.5-1.5) % POC ABG HHb (Measured) (0-5) % ABG Methemoglobin (0.0-3.0) % ABG O2 Capacity (16-24) mL/dl ABG Potassium 4.1 (3.6-5.2) mmol/L VBG pH (7.32-7.43) VBG pCO2 (40-60) VBG HCO3 (21-28) mmol/l VBG Total CO2 (22-28) mmol.L VBG O2 Sat (Calc) (40-65) % VBG Base Excess (0.0-2.0) mmol/L VBG Potassium (3.6-5.2) mmol/L Hgb O2 Saturation (95.0-98.0) % Sodium 140.0 143 (132-148) mmol/L Chloride 110.0 H 112 H (98-107) mmol/L Glucose 412 H* (75-110) mg/dl Lactate 1.2 (0.7-2.1) mmol/L Mechanical Rate 25 FiO2 40.0 % Tidal Volume 400 PEEP 5 Blood Gas Comments Crit Value Called To Dr. sparks Crit Value Called By Josie duarte 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 Blood Gas Notified Time 1718 Potassium 3.7 (3.6-5.0) mmol/L Carbon Dioxide 16 L (21-33) mmol/L Anion Gap 19 (10-20) BUN 27 H (7-21) mg/dL Creatinine 1.2 (0.8-1.5) mg/dl Est GFR ( Amer) > 60 Est GFR (Non-Af Amer) > 60 POC Glucose (mg/dL) 410 H* (65-110) mg/dL Random Glucose 414 H* D (70-110) mg/dL Calcium 7.6 L (8.4-10.5) mg/dL Phosphorus 6.1 H (2.5-4.5) mg/dL Magnesium 1.8 (1.7-2.2) mg/dL Total Bilirubin 0.6 (0.2-1.3) mg/dL AST 85 H (17-59) U/L ALT 24 (7-56) U/L Alkaline Phosphatase 117 (38-126) U/L Lactate Dehydrogenase (333-699) U/L Total Creatine Kinase (35-230) U/L CK-MB (CK-2) (0.0-3.6) ng/mL CK-MB (CK-2) % (2.5-3.0) % Troponin I ng/mL NT-Pro-B Natriuret Pep (0-450) pg/mL Total Protein 6.8 (5.8-8.3) g/dL Albumin 3.2 (3.0-4.8) g/dL Globulin 3.6 gm/dL Albumin/Globulin Ratio 0.9 L (1.1-1.8) Amylase (35-125) U/L Lipase (23-300) U/L Procalcitonin (0.19-0.49) NG/ML Arterial Blood Potassium 4.1 (3.6-5.2) mmol/L Venous Blood Potassium (3.6-5.2) mmol/L Urine Color (YELLOW) Urine Appearance (CLEAR) Urine pH (4.7-8.0) Ur Specific [place] (1.005-1.035) Urine Protein (<30 mg/dL) mg/dL Urine Glucose (UA) (NEGATIVE) mg/dL Urine Ketones (NEGATIVE) mg/dL Urine Blood (NEGATIVE) Urine Nitrate (NEGATIVE) Urine Bilirubin (NEGATIVE) Urine Urobilinogen (<1 E.U./dL) E.U./dL Ur Leukocyte Esterase (NEGATIVE) Dani/uL Urine RBC (0-2) /hpf Urine WBC (0-6) /hpf Ur Epithelial Cells (0-5) /hpf Urine Bacteria (NONE) /hpf Stool Occult Blood (NEGATIVE) Digoxin (0.8-2.0) ng/mL Influenza Typ A,B (EIA) (NEGATIVE) Blood Type Antibody Screen Crossmatch BBK History Checked 11/15/18 11/15/18 11/15/18 Range/Units 13:40 13:40 09:30 WBC (4.5-11.0) 10^3/uL RBC (3.5-6.1) 10^6/uL Hgb 10.4 L (14.0-18.0) g/dL Hct 33.2 L (42.0-52.0) % MCV (80.0-105.0) fl MCH (25.0-35.0) pg MCHC (31.0-37.0) g/dl RDW (11.5-14.5) % Plt Count (120.0-450.0) 10^3/uL MPV (7.0-11.0) fl Neut % (Auto) (50.0-68.0) % Lymph % (Auto) (22.0-35.0) % [place] % (Auto) (1.0-6.0) % Eos % (Auto) (1.5-5.0) % Baso % (Auto) (0.0-3.0) % Lymph # (Auto) (1.2-3.4) [place] # (Auto) (0.1-0.6) Eos # (Auto) (0.0-0.7) Baso # (Auto) (0.0-2.0) K/mm3 Absolute Neuts (auto) (1.4-6.5) Neutrophils % (Manual) (50.0-70.0) % Lymphocytes % (Manual) (22.0-35.0) % Monocytes % (Manual) (1.0-6.0) % Basophils % (Manual) (0.0-1.0) % Platelet Evaluation (NORMAL) PT (9.4-12.5) SECONDS INR APTT (26.9-38.3) Seconds pCO2 28 L (35-45) mm/Hg pO2 47 284.0 H (30-55) mm/Hg HCO3 13.8 L (21-28) mmol/L ABG pH 7.30 L (7.35-7.45) ABG Total CO2 14.7 L (22-28) mmol.L ABG O2 Saturation 99.8 H (95-98) % ABG O2 Content (15-23) ML/dl ABG Base Excess -11.1 L (-2.0-3.0) mmol/L ABG Hemoglobin (11.7-17.4) g/dL ABG Carboxyhemoglobin (0.5-1.5) % POC ABG HHb (Measured) (0-5) % ABG Methemoglobin (0.0-3.0) % ABG O2 Capacity (16-24) mL/dl ABG Potassium 3.7 (3.6-5.2) mmol/L VBG pH 7.07 L* (7.32-7.43) VBG pCO2 49.0 (40-60) VBG HCO3 14.2 L (21-28) mmol/l VBG Total CO2 15.7 L (22-28) mmol.L VBG O2 Sat (Calc) 75.7 H (40-65) % VBG Base Excess -15.8 L (0.0-2.0) mmol/L VBG Potassium 3.7 (3.6-5.2) mmol/L Hgb O2 Saturation (95.0-98.0) % Sodium 142.0 142.0 (132-148) mmol/L Chloride 113.0 H 117.0 H (98-107) mmol/L Glucose 463 H* D 341 H (75-110) mg/dl Lactate 2.5 H 2.7 H (0.7-2.1) mmol/L Mechanical Rate FiO2 21.0 100.0 % Tidal Volume PEEP Blood Gas Comments Status post-cardiac arrest Crit Value Called To Michelle casanova Crit Value Called By Ab Josie duarte 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 Blood Gas Notified Time 1350 940 Potassium (3.6-5.0) mmol/L Carbon Dioxide (21-33) mmol/L Anion Gap (10-20) BUN (7-21) mg/dL Creatinine (0.8-1.5) mg/dl Est GFR ( Amer) Est GFR (Non-Af Amer) POC Glucose (mg/dL) (65-110) mg/dL Random Glucose (70-110) mg/dL Calcium (8.4-10.5) mg/dL Phosphorus (2.5-4.5) mg/dL Magnesium (1.7-2.2) mg/dL Total Bilirubin (0.2-1.3) mg/dL AST (17-59) U/L ALT (7-56) U/L Alkaline Phosphatase (38-126) U/L Lactate Dehydrogenase (333-699) U/L Total Creatine Kinase (35-230) U/L CK-MB (CK-2) (0.0-3.6) ng/mL CK-MB (CK-2) % (2.5-3.0) % Troponin I ng/mL NT-Pro-B Natriuret Pep (0-450) pg/mL Total Protein (5.8-8.3) g/dL Albumin (3.0-4.8) g/dL Globulin gm/dL Albumin/Globulin Ratio (1.1-1.8) Amylase (35-125) U/L Lipase (23-300) U/L Procalcitonin (0.19-0.49) NG/ML Arterial Blood Potassium 3.7 (3.6-5.2) mmol/L Venous Blood Potassium 3.7 (3.6-5.2) mmol/L Urine Color (YELLOW) Urine Appearance (CLEAR) Urine pH (4.7-8.0) Ur Specific [place] (1.005-1.035) Urine Protein (<30 mg/dL) mg/dL Urine Glucose (UA) (NEGATIVE) mg/dL Urine Ketones (NEGATIVE) mg/dL Urine Blood (NEGATIVE) Urine Nitrate (NEGATIVE) Urine Bilirubin (NEGATIVE) Urine Urobilinogen (<1 E.U./dL) E.U./dL Ur Leukocyte Esterase (NEGATIVE) Dani/uL Urine RBC (0-2) /hpf Urine WBC (0-6) /hpf Ur Epithelial Cells (0-5) /hpf Urine Bacteria (NONE) /hpf Stool Occult Blood (NEGATIVE) Digoxin (0.8-2.0) ng/mL Influenza Typ A,B (EIA) (NEGATIVE) Blood Type Antibody Screen Crossmatch BBK History Checked 11/15/18 11/15/18 11/15/18 Range/Units 08:30 07:00 07:00 WBC 14.1 H D (4.5-11.0) 10^3/uL RBC 3.27 L (3.5-6.1) 10^6/uL Hgb 8.7 L (14.0-18.0) g/dL Hct 27.9 L (42.0-52.0) % MCV 85.3 (80.0-105.0) fl MCH 26.6 (25.0-35.0) pg MCHC 31.2 (31.0-37.0) g/dl RDW 15.6 H (11.5-14.5) % Plt Count 188 (120.0-450.0) 10^3/uL MPV 11.3 H (7.0-11.0) fl Neut % (Auto) 93.2 H (50.0-68.0) % Lymph % (Auto) 3.8 L (22.0-35.0) % [place] % (Auto) 2.9 (1.0-6.0) % Eos % (Auto) 0.0 L (1.5-5.0) % Baso % (Auto) 0.1 (0.0-3.0) % Lymph # (Auto) 0.5 L (1.2-3.4) [place] # (Auto) 0.4 (0.1-0.6) Eos # (Auto) 0.0 (0.0-0.7) Baso # (Auto) 0.02 (0.0-2.0) K/mm3 Absolute Neuts (auto) 13.10 H (1.4-6.5) Neutrophils % (Manual) 97 H (50.0-70.0) % Lymphocytes % (Manual) 1 L (22.0-35.0) % Monocytes % (Manual) 1 (1.0-6.0) % Basophils % (Manual) 1 (0.0-1.0) % Platelet Evaluation Normal (NORMAL) PT (9.4-12.5) SECONDS INR APTT (26.9-38.3) Seconds pCO2 (35-45) mm/Hg pO2 (30-55) mm/Hg HCO3 (21-28) mmol/L ABG pH (7.35-7.45) ABG Total CO2 (22-28) mmol.L ABG O2 Saturation (95-98) % ABG O2 Content (15-23) ML/dl ABG Base Excess (-2.0-3.0) mmol/L ABG Hemoglobin (11.7-17.4) g/dL ABG Carboxyhemoglobin (0.5-1.5) % POC ABG HHb (Measured) (0-5) % ABG Methemoglobin (0.0-3.0) % ABG O2 Capacity (16-24) mL/dl ABG Potassium (3.6-5.2) mmol/L VBG pH (7.32-7.43) VBG pCO2 (40-60) VBG HCO3 (21-28) mmol/l VBG Total CO2 (22-28) mmol.L VBG O2 Sat (Calc) (40-65) % VBG Base Excess (0.0-2.0) mmol/L VBG Potassium (3.6-5.2) mmol/L Hgb O2 Saturation (95.0-98.0) % Sodium 143 (132-148) mmol/L Chloride 113 H (98-107) mmol/L Glucose (75-110) mg/dl Lactate (0.7-2.1) mmol/L Mechanical Rate FiO2 % Tidal Volume PEEP Blood Gas Comments Crit Value Called To Crit Value Called By Blood Gas Notified Time Potassium 4.0 (3.6-5.0) mmol/L Carbon Dioxide 18 L (21-33) mmol/L Anion Gap 15 (10-20) BUN 27 H (7-21) mg/dL Creatinine 1.2 (0.8-1.5) mg/dl Est GFR ( Amer) > 60 Est GFR (Non-Af Amer) > 60 POC Glucose (mg/dL) (65-110) mg/dL Random Glucose 276 H (70-110) mg/dL Calcium 7.8 L (8.4-10.5) mg/dL Phosphorus 4.6 H (2.5-4.5) mg/dL Magnesium 1.5 L (1.7-2.2) mg/dL Total Bilirubin 0.5 (0.2-1.3) mg/dL AST 89 H D (17-59) U/L ALT 21 (7-56) U/L Alkaline Phosphatase 98 (38-126) U/L Lactate Dehydrogenase (333-699) U/L Total Creatine Kinase (35-230) U/L CK-MB (CK-2) (0.0-3.6) ng/mL CK-MB (CK-2) % (2.5-3.0) % Troponin I 24.40 H* ng/mL NT-Pro-B Natriuret Pep (0-450) pg/mL Total Protein 6.6 (5.8-8.3) g/dL Albumin 3.0 (3.0-4.8) g/dL Globulin 3.7 gm/dL Albumin/Globulin Ratio 0.8 L (1.1-1.8) Amylase (35-125) U/L Lipase (23-300) U/L Procalcitonin (0.19-0.49) NG/ML Arterial Blood Potassium (3.6-5.2) mmol/L Venous Blood Potassium (3.6-5.2) mmol/L Urine Color (YELLOW) Urine Appearance (CLEAR) Urine pH (4.7-8.0) Ur Specific [place] (1.005-1.035) Urine Protein (<30 mg/dL) mg/dL Urine Glucose (UA) (NEGATIVE) mg/dL Urine Ketones (NEGATIVE) mg/dL Urine Blood (NEGATIVE) Urine Nitrate (NEGATIVE) Urine Bilirubin (NEGATIVE) Urine Urobilinogen (<1 E.U./dL) E.U./dL Ur Leukocyte Esterase (NEGATIVE) Dani/uL Urine RBC (0-2) /hpf Urine WBC (0-6) /hpf Ur Epithelial Cells (0-5) /hpf Urine Bacteria (NONE) /hpf Stool Occult Blood Negative (NEGATIVE) Digoxin (0.8-2.0) ng/mL Influenza Typ A,B (EIA) (NEGATIVE) Blood Type Antibody Screen Crossmatch BBK History Checked 11/15/18 11/15/18 11/15/18 Range/Units 06:20 02:00 00:48 WBC (4.5-11.0) 10^3/uL RBC (3.5-6.1) 10^6/uL Hgb 7.8 L (14.0-18.0) g/dL Hct 25.5 L (42.0-52.0) % MCV (80.0-105.0) fl MCH (25.0-35.0) pg MCHC (31.0-37.0) g/dl RDW (11.5-14.5) % Plt Count (120.0-450.0) 10^3/uL MPV (7.0-11.0) fl Neut % (Auto) (50.0-68.0) % Lymph % (Auto) (22.0-35.0) % [place] % (Auto) (1.0-6.0) % Eos % (Auto) (1.5-5.0) % Baso % (Auto) (0.0-3.0) % Lymph # (Auto) (1.2-3.4) [place] # (Auto) (0.1-0.6) Eos # (Auto) (0.0-0.7) Baso # (Auto) (0.0-2.0) K/mm3 Absolute Neuts (auto) (1.4-6.5) Neutrophils % (Manual) (50.0-70.0) % Lymphocytes % (Manual) (22.0-35.0) % Monocytes % (Manual) (1.0-6.0) % Basophils % (Manual) (0.0-1.0) % Platelet Evaluation (NORMAL) PT (9.4-12.5) SECONDS INR APTT (26.9-38.3) Seconds pCO2 26 L (35-45) mm/Hg pO2 275.0 H (30-55) mm/Hg HCO3 15.0 L (21-28) mmol/L ABG pH 7.37 (7.35-7.45) ABG Total CO2 15.8 L (22-28) mmol.L ABG O2 Saturation 99.5 H (95-98) % ABG O2 Content 14.8 L (15-23) ML/dl ABG Base Excess -9.0 L (-2.0-3.0) mmol/L ABG Hemoglobin 10.3 L (11.7-17.4) g/dL ABG Carboxyhemoglobin 1.3 (0.5-1.5) % POC ABG HHb (Measured) 0.5 (0-5) % ABG Methemoglobin 1.1 (0.0-3.0) % ABG O2 Capacity 14.9 L (16-24) mL/dl ABG Potassium (3.6-5.2) mmol/L VBG pH (7.32-7.43) VBG pCO2 (40-60) VBG HCO3 (21-28) mmol/l VBG Total CO2 (22-28) mmol.L VBG O2 Sat (Calc) (40-65) % VBG Base Excess (0.0-2.0) mmol/L VBG Potassium (3.6-5.2) mmol/L Hgb O2 Saturation 97.1 (95.0-98.0) % Sodium (132-148) mmol/L Chloride (98-107) mmol/L Glucose (75-110) mg/dl Lactate (0.7-2.1) mmol/L Mechanical Rate FiO2 60.0 % Tidal Volume PEEP Blood Gas Comments Crit Value Called To Crit Value Called By Blood Gas Notified Time Potassium (3.6-5.0) mmol/L Carbon Dioxide (21-33) mmol/L Anion Gap (10-20) BUN (7-21) mg/dL Creatinine (0.8-1.5) mg/dl Est GFR ( Amer) Est GFR (Non-Af Amer) POC Glucose (mg/dL) (65-110) mg/dL Random Glucose (70-110) mg/dL Calcium (8.4-10.5) mg/dL Phosphorus (2.5-4.5) mg/dL Magnesium (1.7-2.2) mg/dL Total Bilirubin (0.2-1.3) mg/dL AST (17-59) U/L ALT (7-56) U/L Alkaline Phosphatase (38-126) U/L Lactate Dehydrogenase (333-699) U/L Total Creatine Kinase (35-230) U/L CK-MB (CK-2) (0.0-3.6) ng/mL CK-MB (CK-2) % (2.5-3.0) % Troponin I 25.40 H* ng/mL NT-Pro-B Natriuret Pep (0-450) pg/mL Total Protein (5.8-8.3) g/dL Albumin (3.0-4.8) g/dL Globulin gm/dL Albumin/Globulin Ratio (1.1-1.8) Amylase (35-125) U/L Lipase (23-300) U/L Procalcitonin (0.19-0.49) NG/ML Arterial Blood Potassium (3.6-5.2) mmol/L Venous Blood Potassium (3.6-5.2) mmol/L Urine Color (YELLOW) Urine Appearance (CLEAR) Urine pH (4.7-8.0) Ur Specific [place] (1.005-1.035) Urine Protein (<30 mg/dL) mg/dL Urine Glucose (UA) (NEGATIVE) mg/dL Urine Ketones (NEGATIVE) mg/dL Urine Blood (NEGATIVE) Urine Nitrate (NEGATIVE) Urine Bilirubin (NEGATIVE) Urine Urobilinogen (<1 E.U./dL) E.U./dL Ur Leukocyte Esterase (NEGATIVE) Dani/uL Urine RBC (0-2) /hpf Urine WBC (0-6) /hpf Ur Epithelial Cells (0-5) /hpf Urine Bacteria (NONE) /hpf Stool Occult Blood (NEGATIVE) Digoxin (0.8-2.0) ng/mL Influenza Typ A,B (EIA) (NEGATIVE) Blood Type Antibody Screen Crossmatch BBK History Checked 11/14/18 11/14/18 11/14/18 Range/Units 21:30 21:30 20:12 WBC (4.5-11.0) 10^3/uL RBC (3.5-6.1) 10^6/uL Hgb 7.9 L (14.0-18.0) g/dL Hct 25.9 L (42.0-52.0) % MCV (80.0-105.0) fl MCH (25.0-35.0) pg MCHC (31.0-37.0) g/dl RDW (11.5-14.5) % Plt Count (120.0-450.0) 10^3/uL MPV (7.0-11.0) fl Neut % (Auto) (50.0-68.0) % Lymph % (Auto) (22.0-35.0) % [place] % (Auto) (1.0-6.0) % Eos % (Auto) (1.5-5.0) % Baso % (Auto) (0.0-3.0) % Lymph # (Auto) (1.2-3.4) [place] # (Auto) (0.1-0.6) Eos # (Auto) (0.0-0.7) Baso # (Auto) (0.0-2.0) K/mm3 Absolute Neuts (auto) (1.4-6.5) Neutrophils % (Manual) (50.0-70.0) % Lymphocytes % (Manual) (22.0-35.0) % Monocytes % (Manual) (1.0-6.0) % Basophils % (Manual) (0.0-1.0) % Platelet Evaluation (NORMAL) PT (9.4-12.5) SECONDS INR APTT (26.9-38.3) Seconds pCO2 29 L (35-45) mm/Hg pO2 67 H 442.0 H (30-55) mm/Hg HCO3 16.0 L (21-28) mmol/L ABG pH 7.35 (7.35-7.45) ABG Total CO2 16.9 L (22-28) mmol.L ABG O2 Saturation 99.8 H (95-98) % ABG O2 Content 10.8 L (15-23) ML/dl ABG Base Excess -8.7 L (-2.0-3.0) mmol/L ABG Hemoglobin 6.9 L (11.7-17.4) g/dL ABG Carboxyhemoglobin 1.2 (0.5-1.5) % POC ABG HHb (Measured) 0.2 (0-5) % ABG Methemoglobin 0.9 (0.0-3.0) % ABG O2 Capacity 10.8 L (16-24) mL/dl ABG Potassium (3.6-5.2) mmol/L VBG pH 7.30 L (7.32-7.43) VBG pCO2 32.0 L (40-60) VBG HCO3 15.7 L (21-28) mmol/l VBG Total CO2 16.7 L (22-28) mmol.L VBG O2 Sat (Calc) 94.2 H (40-65) % VBG Base Excess -9.6 L (0.0-2.0) mmol/L VBG Potassium 3.8 (3.6-5.2) mmol/L Hgb O2 Saturation 97.7 (95.0-98.0) % Sodium 141.0 (132-148) mmol/L Chloride 116.0 H (98-107) mmol/L Glucose 286 H (75-110) mg/dl Lactate 1.0 (0.7-2.1) mmol/L Mechanical Rate FiO2 21.0 100.0 % Tidal Volume PEEP Blood Gas Comments Crit Value Called To Crit Value Called By Blood Gas Notified Time Potassium (3.6-5.0) mmol/L Carbon Dioxide (21-33) mmol/L Anion Gap (10-20) BUN (7-21) mg/dL Creatinine (0.8-1.5) mg/dl Est GFR ( Amer) Est GFR (Non-Af Amer) POC Glucose (mg/dL) (65-110) mg/dL Random Glucose (70-110) mg/dL Calcium (8.4-10.5) mg/dL Phosphorus (2.5-4.5) mg/dL Magnesium (1.7-2.2) mg/dL Total Bilirubin (0.2-1.3) mg/dL AST (17-59) U/L ALT (7-56) U/L Alkaline Phosphatase (38-126) U/L Lactate Dehydrogenase (333-699) U/L Total Creatine Kinase (35-230) U/L CK-MB (CK-2) (0.0-3.6) ng/mL CK-MB (CK-2) % (2.5-3.0) % Troponin I ng/mL NT-Pro-B Natriuret Pep (0-450) pg/mL Total Protein (5.8-8.3) g/dL Albumin (3.0-4.8) g/dL Globulin gm/dL Albumin/Globulin Ratio (1.1-1.8) Amylase (35-125) U/L Lipase (23-300) U/L Procalcitonin (0.19-0.49) NG/ML Arterial Blood Potassium (3.6-5.2) mmol/L Venous Blood Potassium 3.8 (3.6-5.2) mmol/L Urine Color (YELLOW) Urine Appearance (CLEAR) Urine pH (4.7-8.0) Ur Specific [place] (1.005-1.035) Urine Protein (<30 mg/dL) mg/dL Urine Glucose (UA) (NEGATIVE) mg/dL Urine Ketones (NEGATIVE) mg/dL Urine Blood (NEGATIVE) Urine Nitrate (NEGATIVE) Urine Bilirubin (NEGATIVE) Urine Urobilinogen (<1 E.U./dL) E.U./dL Ur Leukocyte Esterase (NEGATIVE) Dani/uL Urine RBC (0-2) /hpf Urine WBC (0-6) /hpf Ur Epithelial Cells (0-5) /hpf Urine Bacteria (NONE) /hpf Stool Occult Blood (NEGATIVE) Digoxin (0.8-2.0) ng/mL Influenza Typ A,B (EIA) (NEGATIVE) Blood Type Antibody Screen Crossmatch BBK History Checked 11/14/18 11/14/18 11/14/18 Range/Units 19:40 19:00 18:40 WBC (4.5-11.0) 10^3/uL RBC (3.5-6.1) 10^6/uL Hgb (14.0-18.0) g/dL Hct (42.0-52.0) % MCV (80.0-105.0) fl MCH (25.0-35.0) pg MCHC (31.0-37.0) g/dl RDW (11.5-14.5) % Plt Count (120.0-450.0) 10^3/uL MPV (7.0-11.0) fl Neut % (Auto) (50.0-68.0) % Lymph % (Auto) (22.0-35.0) % [place] % (Auto) (1.0-6.0) % Eos % (Auto) (1.5-5.0) % Baso % (Auto) (0.0-3.0) % Lymph # (Auto) (1.2-3.4) [place] # (Auto) (0.1-0.6) Eos # (Auto) (0.0-0.7) Baso # (Auto) (0.0-2.0) K/mm3 Absolute Neuts (auto) (1.4-6.5) Neutrophils % (Manual) (50.0-70.0) % Lymphocytes % (Manual) (22.0-35.0) % Monocytes % (Manual) (1.0-6.0) % Basophils % (Manual) (0.0-1.0) % Platelet Evaluation (NORMAL) PT (9.4-12.5) SECONDS INR APTT (26.9-38.3) Seconds pCO2 (35-45) mm/Hg pO2 (30-55) mm/Hg HCO3 (21-28) mmol/L ABG pH (7.35-7.45) ABG Total CO2 (22-28) mmol.L ABG O2 Saturation (95-98) % ABG O2 Content (15-23) ML/dl ABG Base Excess (-2.0-3.0) mmol/L ABG Hemoglobin (11.7-17.4) g/dL ABG Carboxyhemoglobin (0.5-1.5) % POC ABG HHb (Measured) (0-5) % ABG Methemoglobin (0.0-3.0) % ABG O2 Capacity (16-24) mL/dl ABG Potassium (3.6-5.2) mmol/L VBG pH (7.32-7.43) VBG pCO2 (40-60) VBG HCO3 (21-28) mmol/l VBG Total CO2 (22-28) mmol.L VBG O2 Sat (Calc) (40-65) % VBG Base Excess (0.0-2.0) mmol/L VBG Potassium (3.6-5.2) mmol/L Hgb O2 Saturation (95.0-98.0) % Sodium (132-148) mmol/L Chloride (98-107) mmol/L Glucose (75-110) mg/dl Lactate (0.7-2.1) mmol/L Mechanical Rate FiO2 % Tidal Volume PEEP Blood Gas Comments Crit Value Called To Crit Value Called By Blood Gas Notified Time Potassium (3.6-5.0) mmol/L Carbon Dioxide (21-33) mmol/L Anion Gap (10-20) BUN (7-21) mg/dL Creatinine (0.8-1.5) mg/dl Est GFR ( Amer) Est GFR (Non-Af Amer) POC Glucose (mg/dL) (65-110) mg/dL Random Glucose (70-110) mg/dL Calcium (8.4-10.5) mg/dL Phosphorus (2.5-4.5) mg/dL Magnesium (1.7-2.2) mg/dL Total Bilirubin (0.2-1.3) mg/dL AST (17-59) U/L ALT (7-56) U/L Alkaline Phosphatase (38-126) U/L Lactate Dehydrogenase (333-699) U/L Total Creatine Kinase (35-230) U/L CK-MB (CK-2) (0.0-3.6) ng/mL CK-MB (CK-2) % (2.5-3.0) % Troponin I ng/mL NT-Pro-B Natriuret Pep (0-450) pg/mL Total Protein (5.8-8.3) g/dL Albumin (3.0-4.8) g/dL Globulin gm/dL Albumin/Globulin Ratio (1.1-1.8) Amylase (35-125) U/L Lipase (23-300) U/L Procalcitonin (0.19-0.49) NG/ML Arterial Blood Potassium (3.6-5.2) mmol/L Venous Blood Potassium (3.6-5.2) mmol/L Urine Color Yellow (YELLOW) Urine Appearance Slight-cloudy (CLEAR) Urine pH 6.5 (4.7-8.0) Ur Specific [place] 1.010 (1.005-1.035) Urine Protein 30 H (<30 mg/dL) mg/dL Urine Glucose (UA) Negative (NEGATIVE) mg/dL Urine Ketones Negative (NEGATIVE) mg/dL Urine Blood Trace-lysed H (NEGATIVE) Urine Nitrate Negative (NEGATIVE) Urine Bilirubin Negative (NEGATIVE) Urine Urobilinogen 0.2 (<1 E.U./dL) E.U./dL Ur Leukocyte Esterase Large H (NEGATIVE) Dani/uL Urine RBC 1 - 3 H (0-2) /hpf Urine WBC Tntc H (0-6) /hpf Ur Epithelial Cells None (0-5) /hpf Urine Bacteria Trace (NONE) /hpf Stool Occult Blood (NEGATIVE) Digoxin 0.9 (0.8-2.0) ng/mL Influenza Typ A,B (EIA) Negative for flu a/b (NEGATIVE) Blood Type Antibody Screen Crossmatch BBK History Checked 11/14/18 11/14/18 11/14/18 Range/Units 18:40 18:40 18:19 WBC (4.5-11.0) 10^3/uL RBC (3.5-6.1) 10^6/uL Hgb (14.0-18.0) g/dL Hct (42.0-52.0) % MCV (80.0-105.0) fl MCH (25.0-35.0) pg MCHC (31.0-37.0) g/dl RDW (11.5-14.5) % Plt Count (120.0-450.0) 10^3/uL MPV (7.0-11.0) fl Neut % (Auto) (50.0-68.0) % Lymph % (Auto) (22.0-35.0) % [place] % (Auto) (1.0-6.0) % Eos % (Auto) (1.5-5.0) % Baso % (Auto) (0.0-3.0) % Lymph # (Auto) (1.2-3.4) [place] # (Auto) (0.1-0.6) Eos # (Auto) (0.0-0.7) Baso # (Auto) (0.0-2.0) K/mm3 Absolute Neuts (auto) (1.4-6.5) Neutrophils % (Manual) (50.0-70.0) % Lymphocytes % (Manual) (22.0-35.0) % Monocytes % (Manual) (1.0-6.0) % Basophils % (Manual) (0.0-1.0) % Platelet Evaluation (NORMAL) PT (9.4-12.5) SECONDS INR APTT (26.9-38.3) Seconds pCO2 (35-45) mm/Hg pO2 98 H (30-55) mm/Hg HCO3 (21-28) mmol/L ABG pH (7.35-7.45) ABG Total CO2 (22-28) mmol.L ABG O2 Saturation (95-98) % ABG O2 Content (15-23) ML/dl ABG Base Excess (-2.0-3.0) mmol/L ABG Hemoglobin (11.7-17.4) g/dL ABG Carboxyhemoglobin (0.5-1.5) % POC ABG HHb (Measured) (0-5) % ABG Methemoglobin (0.0-3.0) % ABG O2 Capacity (16-24) mL/dl ABG Potassium (3.6-5.2) mmol/L VBG pH 7.17 L* (7.32-7.43) VBG pCO2 43.0 (40-60) VBG HCO3 15.7 L (21-28) mmol/l VBG Total CO2 17.0 L (22-28) mmol.L VBG O2 Sat (Calc) 97.6 H (40-65) % VBG Base Excess -12.4 L (0.0-2.0) mmol/L VBG Potassium 4.6 (3.6-5.2) mmol/L Hgb O2 Saturation (95.0-98.0) % Sodium 139.0 (132-148) mmol/L Chloride 108.0 H (98-107) mmol/L Glucose 324 H (75-110) mg/dl Lactate 5.8 H* (0.7-2.1) mmol/L Mechanical Rate FiO2 21.0 % Tidal Volume PEEP Blood Gas Comments Crit Value Called To Silverio rockwell Crit Value Called By [facility] Blood Gas Notified Time 183 Potassium (3.6-5.0) mmol/L Carbon Dioxide (21-33) mmol/L Anion Gap (10-20) BUN (7-21) mg/dL Creatinine (0.8-1.5) mg/dl Est GFR ( Amer) Est GFR (Non-Af Amer) POC Glucose (mg/dL) (65-110) mg/dL Random Glucose (70-110) mg/dL Calcium (8.4-10.5) mg/dL Phosphorus (2.5-4.5) mg/dL Magnesium (1.7-2.2) mg/dL Total Bilirubin (0.2-1.3) mg/dL AST (17-59) U/L ALT (7-56) U/L Alkaline Phosphatase (38-126) U/L Lactate Dehydrogenase (333-699) U/L Total Creatine Kinase (35-230) U/L CK-MB (CK-2) (0.0-3.6) ng/mL CK-MB (CK-2) % (2.5-3.0) % Troponin I ng/mL NT-Pro-B Natriuret Pep 58089 H (0-450) pg/mL Total Protein (5.8-8.3) g/dL Albumin (3.0-4.8) g/dL Globulin gm/dL Albumin/Globulin Ratio (1.1-1.8) Amylase (35-125) U/L Lipase (23-300) U/L Procalcitonin 0.11 L (0.19-0.49) NG/ML Arterial Blood Potassium (3.6-5.2) mmol/L Venous Blood Potassium 4.6 (3.6-5.2) mmol/L Urine Color (YELLOW) Urine Appearance (CLEAR) Urine pH (4.7-8.0) Ur Specific [place] (1.005-1.035) Urine Protein (<30 mg/dL) mg/dL Urine Glucose (UA) (NEGATIVE) mg/dL Urine Ketones (NEGATIVE) mg/dL Urine Blood (NEGATIVE) Urine Nitrate (NEGATIVE) Urine Bilirubin (NEGATIVE) Urine Urobilinogen (<1 E.U./dL) E.U./dL Ur Leukocyte Esterase (NEGATIVE) Dani/uL Urine RBC (0-2) /hpf Urine WBC (0-6) /hpf Ur Epithelial Cells (0-5) /hpf Urine Bacteria (NONE) /hpf Stool Occult Blood (NEGATIVE) Digoxin (0.8-2.0) ng/mL Influenza Typ A,B (EIA) (NEGATIVE) Blood Type Antibody Screen Crossmatch BBK History Checked 11/14/18 11/14/18 11/14/18 Range/Units 18:19 18:19 18:19 WBC (4.5-11.0) 10^3/uL RBC (3.5-6.1) 10^6/uL Hgb (14.0-18.0) g/dL Hct (42.0-52.0) % MCV (80.0-105.0) fl MCH (25.0-35.0) pg MCHC (31.0-37.0) g/dl RDW (11.5-14.5) % Plt Count (120.0-450.0) 10^3/uL MPV (7.0-11.0) fl Neut % (Auto) (50.0-68.0) % Lymph % (Auto) (22.0-35.0) % [place] % (Auto) (1.0-6.0) % Eos % (Auto) (1.5-5.0) % Baso % (Auto) (0.0-3.0) % Lymph # (Auto) (1.2-3.4) [place] # (Auto) (0.1-0.6) Eos # (Auto) (0.0-0.7) Baso # (Auto) (0.0-2.0) K/mm3 Absolute Neuts (auto) (1.4-6.5) Neutrophils % (Manual) (50.0-70.0) % Lymphocytes % (Manual) (22.0-35.0) % Monocytes % (Manual) (1.0-6.0) % Basophils % (Manual) (0.0-1.0) % Platelet Evaluation (NORMAL) PT 14.4 H (9.4-12.5) SECONDS INR 1.30 APTT 30.7 (26.9-38.3) Seconds pCO2 (35-45) mm/Hg pO2 (30-55) mm/Hg HCO3 (21-28) mmol/L ABG pH (7.35-7.45) ABG Total CO2 (22-28) mmol.L ABG O2 Saturation (95-98) % ABG O2 Content (15-23) ML/dl ABG Base Excess (-2.0-3.0) mmol/L ABG Hemoglobin (11.7-17.4) g/dL ABG Carboxyhemoglobin (0.5-1.5) % POC ABG HHb (Measured) (0-5) % ABG Methemoglobin (0.0-3.0) % ABG O2 Capacity (16-24) mL/dl ABG Potassium (3.6-5.2) mmol/L VBG pH (7.32-7.43) VBG pCO2 (40-60) VBG HCO3 (21-28) mmol/l VBG Total CO2 (22-28) mmol.L VBG O2 Sat (Calc) (40-65) % VBG Base Excess (0.0-2.0) mmol/L VBG Potassium (3.6-5.2) mmol/L Hgb O2 Saturation (95.0-98.0) % Sodium 139 (132-148) mmol/L Chloride 107 (98-107) mmol/L Glucose (75-110) mg/dl Lactate (0.7-2.1) mmol/L Mechanical Rate FiO2 % Tidal Volume PEEP Blood Gas Comments Crit Value Called To Crit Value Called By Blood Gas Notified Time Potassium 4.5 (3.6-5.0) mmol/L Carbon Dioxide 20 L (21-33) mmol/L Anion Gap 16 (10-20) BUN 31 H (7-21) mg/dL Creatinine 1.3 (0.8-1.5) mg/dl Est GFR ( Amer) > 60 Est GFR (Non-Af Amer) 56 POC Glucose (mg/dL) (65-110) mg/dL Random Glucose 315 H* D (70-110) mg/dL Calcium 8.8 (8.4-10.5) mg/dL Phosphorus (2.5-4.5) mg/dL Magnesium (1.7-2.2) mg/dL Total Bilirubin 0.4 (0.2-1.3) mg/dL AST 121 H D (17-59) U/L ALT 20 (7-56) U/L Alkaline Phosphatase 110 (38-126) U/L Lactate Dehydrogenase 1830 H (333-699) U/L Total Creatine Kinase 327 H (35-230) U/L CK-MB (CK-2) 17.1 H (0.0-3.6) ng/mL CK-MB (CK-2) % 5.2 H (2.5-3.0) % Troponin I 25.80 H* D ng/mL NT-Pro-B Natriuret Pep (0-450) pg/mL Total Protein 7.3 (5.8-8.3) g/dL Albumin 3.3 (3.0-4.8) g/dL Globulin 4.0 gm/dL Albumin/Globulin Ratio 0.8 L (1.1-1.8) Amylase 54 (35-125) U/L Lipase 74 (23-300) U/L Procalcitonin (0.19-0.49) NG/ML Arterial Blood Potassium (3.6-5.2) mmol/L Venous Blood Potassium (3.6-5.2) mmol/L Urine Color (YELLOW) Urine Appearance (CLEAR) Urine pH (4.7-8.0) Ur Specific [place] (1.005-1.035) Urine Protein (<30 mg/dL) mg/dL Urine Glucose (UA) (NEGATIVE) mg/dL Urine Ketones (NEGATIVE) mg/dL Urine Blood (NEGATIVE) Urine Nitrate (NEGATIVE) Urine Bilirubin (NEGATIVE) Urine Urobilinogen (<1 E.U./dL) E.U./dL Ur Leukocyte Esterase (NEGATIVE) Dani/uL Urine RBC (0-2) /hpf Urine WBC (0-6) /hpf Ur Epithelial Cells (0-5) /hpf Urine Bacteria (NONE) /hpf Stool Occult Blood (NEGATIVE) Digoxin (0.8-2.0) ng/mL Influenza Typ A,B (EIA) (NEGATIVE) Blood Type O POSITIVE Antibody Screen Negative Crossmatch See Detail BBK History Checked Patient has bt 11/14/18 Range/Units 18:19 WBC 19.1 H D (4.5-11.0) 10^3/uL RBC 3.51 (3.5-6.1) 10^6/uL Hgb 9.1 L (14.0-18.0) g/dL Hct 30.3 L (42.0-52.0) % MCV 86.3 (80.0-105.0) fl MCH 25.9 (25.0-35.0) pg MCHC 30.0 L (31.0-37.0) g/dl RDW 16.2 H (11.5-14.5) % Plt Count 341 (120.0-450.0) 10^3/uL MPV 11.3 H (7.0-11.0) fl Neut % (Auto) 81.1 H (50.0-68.0) % Lymph % (Auto) 12.3 L (22.0-35.0) % [place] % (Auto) 5.6 (1.0-6.0) % Eos % (Auto) 0.6 L (1.5-5.0) % Baso % (Auto) 0.4 (0.0-3.0) % Lymph # (Auto) 2.4 (1.2-3.4) [place] # (Auto) 1.1 H (0.1-0.6) Eos # (Auto) 0.1 (0.0-0.7) Baso # (Auto) 0.07 (0.0-2.0) K/mm3 Absolute Neuts (auto) 15.49 H (1.4-6.5) Neutrophils % (Manual) (50.0-70.0) % Lymphocytes % (Manual) (22.0-35.0) % Monocytes % (Manual) (1.0-6.0) % Basophils % (Manual) (0.0-1.0) % Platelet Evaluation (NORMAL) PT (9.4-12.5) SECONDS INR APTT (26.9-38.3) Seconds pCO2 (35-45) mm/Hg pO2 (30-55) mm/Hg HCO3 (21-28) mmol/L ABG pH (7.35-7.45) ABG Total CO2 (22-28) mmol.L ABG O2 Saturation (95-98) % ABG O2 Content (15-23) ML/dl ABG Base Excess (-2.0-3.0) mmol/L ABG Hemoglobin (11.7-17.4) g/dL ABG Carboxyhemoglobin (0.5-1.5) % POC ABG HHb (Measured) (0-5) % ABG Methemoglobin (0.0-3.0) % ABG O2 Capacity (16-24) mL/dl ABG Potassium (3.6-5.2) mmol/L VBG pH (7.32-7.43) VBG pCO2 (40-60) VBG HCO3 (21-28) mmol/l VBG Total CO2 (22-28) mmol.L VBG O2 Sat (Calc) (40-65) % VBG Base Excess (0.0-2.0) mmol/L VBG Potassium (3.6-5.2) mmol/L Hgb O2 Saturation (95.0-98.0) % Sodium (132-148) mmol/L Chloride (98-107) mmol/L Glucose (75-110) mg/dl Lactate (0.7-2.1) mmol/L Mechanical Rate FiO2 % Tidal Volume PEEP Blood Gas Comments Crit Value Called To Crit Value Called By Blood Gas Notified Time Potassium (3.6-5.0) mmol/L Carbon Dioxide (21-33) mmol/L Anion Gap (10-20) BUN (7-21) mg/dL Creatinine (0.8-1.5) mg/dl Est GFR ( Amer) Est GFR (Non-Af Amer) POC Glucose (mg/dL) (65-110) mg/dL Random Glucose (70-110) mg/dL Calcium (8.4-10.5) mg/dL Phosphorus (2.5-4.5) mg/dL Magnesium (1.7-2.2) mg/dL Total Bilirubin (0.2-1.3) mg/dL AST (17-59) U/L ALT (7-56) U/L Alkaline Phosphatase (38-126) U/L Lactate Dehydrogenase (333-699) U/L Total Creatine Kinase (35-230) U/L CK-MB (CK-2) (0.0-3.6) ng/mL CK-MB (CK-2) % (2.5-3.0) % Troponin I ng/mL NT-Pro-B Natriuret Pep (0-450) pg/mL Total Protein (5.8-8.3) g/dL Albumin (3.0-4.8) g/dL Globulin gm/dL Albumin/Globulin Ratio (1.1-1.8) Amylase (35-125) U/L Lipase (23-300) U/L Procalcitonin (0.19-0.49) NG/ML Arterial Blood Potassium (3.6-5.2) mmol/L Venous Blood Potassium (3.6-5.2) mmol/L Urine Color (YELLOW) Urine Appearance (CLEAR) Urine pH (4.7-8.0) Ur Specific [place] (1.005-1.035) Urine Protein (<30 mg/dL) mg/dL Urine Glucose (UA) (NEGATIVE) mg/dL Urine Ketones (NEGATIVE) mg/dL Urine Blood (NEGATIVE) Urine Nitrate (NEGATIVE) Urine Bilirubin (NEGATIVE) Urine Urobilinogen (<1 E.U./dL) E.U./dL Ur Leukocyte Esterase (NEGATIVE) Dani/uL Urine RBC (0-2) /hpf Urine WBC (0-6) /hpf Ur Epithelial Cells (0-5) /hpf Urine Bacteria (NONE) /hpf Stool Occult Blood (NEGATIVE) Digoxin (0.8-2.0) ng/mL Influenza Typ A,B (EIA) (NEGATIVE) Blood Type Antibody Screen Crossmatch BBK History Checked Laboratory Results - last 24 hr 11/14/18 11/14/18 11/14/18 18:19 18:19 18:19 WBC 19.1 H D RBC 3.51 Hgb 9.1 L Hct 30.3 L MCV 86.3 MCH 25.9 MCHC 30.0 L RDW 16.2 H Plt Count 341 MPV 11.3 H Neut % (Auto) 81.1 H Lymph % (Auto) 12.3 L [place] % (Auto) 5.6 Eos % (Auto) 0.6 L Baso % (Auto) 0.4 Lymph # (Auto) 2.4 [place] # (Auto) 1.1 H Eos # (Auto) 0.1 Baso # (Auto) 0.07 Absolute Neuts (auto) 15.49 H Neutrophils % (Manual) Lymphocytes % (Manual) Monocytes % (Manual) Basophils % (Manual) Platelet Evaluation PT 14.4 H INR 1.30 APTT 30.7 pCO2 pO2 HCO3 ABG pH ABG Total CO2 ABG O2 Saturation ABG O2 Content ABG Base Excess ABG Hemoglobin ABG Carboxyhemoglobin POC ABG HHb (Measured) ABG Methemoglobin ABG O2 Capacity ABG Potassium VBG pH VBG pCO2 VBG HCO3 VBG Total CO2 VBG O2 Sat (Calc) VBG Base Excess VBG Potassium Hgb O2 Saturation Sodium 139 Chloride 107 Glucose Lactate Mechanical Rate FiO2 Tidal Volume PEEP Blood Gas Comments Crit Value Called To Crit Value Called By Blood Gas Notified Time Potassium 4.5 Carbon Dioxide 20 L Anion Gap 16 BUN 31 H Creatinine 1.3 Est GFR ( Amer) > 60 Est GFR (Non-Af Amer) 56 POC Glucose (mg/dL) Random Glucose 315 H* D Calcium 8.8 Phosphorus Magnesium Total Bilirubin 0.4 AST 121 H D ALT 20 Alkaline Phosphatase 110 Lactate Dehydrogenase 1830 H Total Creatine Kinase 327 H CK-MB (CK-2) 17.1 H CK-MB (CK-2) % 5.2 H Troponin I 25.80 H* D NT-Pro-B Natriuret Pep Total Protein 7.3 Albumin 3.3 Globulin 4.0 Albumin/Globulin Ratio 0.8 L Amylase 54 Lipase 74 Procalcitonin Arterial Blood Potassium Venous Blood Potassium Urine Color Urine Appearance Urine pH Ur Specific [place] Urine Protein Urine Glucose (UA) Urine Ketones Urine Blood Urine Nitrate Urine Bilirubin Urine Urobilinogen Ur Leukocyte Esterase Urine RBC Urine WBC Ur Epithelial Cells Urine Bacteria Stool Occult Blood Digoxin Influenza Typ A,B (EIA) Blood Type Antibody Screen Crossmatch BBK History Checked 11/14/18 11/14/18 11/14/18 18:19 18:19 18:40 WBC RBC Hgb Hct MCV MCH MCHC RDW Plt Count MPV Neut % (Auto) Lymph % (Auto) [place] % (Auto) Eos % (Auto) Baso % (Auto) Lymph # (Auto) [place] # (Auto) Eos # (Auto) Baso # (Auto) Absolute Neuts (auto) Neutrophils % (Manual) Lymphocytes % (Manual) Monocytes % (Manual) Basophils % (Manual) Platelet Evaluation PT INR APTT pCO2 pO2 98 H HCO3 ABG pH ABG Total CO2 ABG O2 Saturation ABG O2 Content ABG Base Excess ABG Hemoglobin ABG Carboxyhemoglobin POC ABG HHb (Measured) ABG Methemoglobin ABG O2 Capacity ABG Potassium VBG pH 7.17 L* VBG pCO2 43.0 VBG HCO3 15.7 L VBG Total CO2 17.0 L VBG O2 Sat (Calc) 97.6 H VBG Base Excess -12.4 L VBG Potassium 4.6 Hgb O2 Saturation Sodium 139.0 Chloride 108.0 H Glucose 324 H Lactate 5.8 H* Mechanical Rate FiO2 21.0 Tidal Volume PEEP Blood Gas Comments Crit Value Called To Silverio rockwell Crit Value Called By Atc Blood Gas Notified Time 1835 Potassium Carbon Dioxide Anion Gap BUN Creatinine Est GFR ( Amer) Est GFR (Non-Af Amer) POC Glucose (mg/dL) Random Glucose Calcium Phosphorus Magnesium Total Bilirubin AST ALT Alkaline Phosphatase Lactate Dehydrogenase Total Creatine Kinase CK-MB (CK-2) CK-MB (CK-2) % Troponin I NT-Pro-B Natriuret Pep 54231 H Total Protein Albumin Globulin Albumin/Globulin Ratio Amylase Lipase Procalcitonin Arterial Blood Potassium Venous Blood Potassium 4.6 Urine Color Urine Appearance Urine pH Ur Specific [place] Urine Protein Urine Glucose (UA) Urine Ketones Urine Blood Urine Nitrate Urine Bilirubin Urine Urobilinogen Ur Leukocyte Esterase Urine RBC Urine WBC Ur Epithelial Cells Urine Bacteria Stool Occult Blood Digoxin Influenza Typ A,B (EIA) Blood Type O POSITIVE Antibody Screen Negative Crossmatch See Detail BBK History Checked Patient has bt 11/14/18 11/14/18 11/14/18 18:40 18:40 19:00 WBC RBC Hgb Hct MCV MCH MCHC RDW Plt Count MPV Neut % (Auto) Lymph % (Auto) [place] % (Auto) Eos % (Auto) Baso % (Auto) Lymph # (Auto) [place] # (Auto) Eos # (Auto) Baso # (Auto) Absolute Neuts (auto) Neutrophils % (Manual) Lymphocytes % (Manual) Monocytes % (Manual) Basophils % (Manual) Platelet Evaluation PT INR APTT pCO2 pO2 HCO3 ABG pH ABG Total CO2 ABG O2 Saturation ABG O2 Content ABG Base Excess ABG Hemoglobin ABG Carboxyhemoglobin POC ABG HHb (Measured) ABG Methemoglobin ABG O2 Capacity ABG Potassium VBG pH VBG pCO2 VBG HCO3 VBG Total CO2 VBG O2 Sat (Calc) VBG Base Excess VBG Potassium Hgb O2 Saturation Sodium Chloride Glucose Lactate Mechanical Rate FiO2 Tidal Volume PEEP Blood Gas Comments Crit Value Called To Crit Value Called By Blood Gas Notified Time Potassium Carbon Dioxide Anion Gap BUN Creatinine Est GFR ( Amer) Est GFR (Non-Af Amer) POC Glucose (mg/dL) Random Glucose Calcium Phosphorus Magnesium Total Bilirubin AST ALT Alkaline Phosphatase Lactate Dehydrogenase Total Creatine Kinase CK-MB (CK-2) CK-MB (CK-2) % Troponin I NT-Pro-B Natriuret Pep Total Protein Albumin Globulin Albumin/Globulin Ratio Amylase Lipase Procalcitonin 0.11 L Arterial Blood Potassium Venous Blood Potassium Urine Color Yellow Urine Appearance Slight-cloudy Urine pH 6.5 Ur Specific [place] 1.010 Urine Protein 30 H Urine Glucose (UA) Negative Urine Ketones Negative Urine Blood Trace-lysed H Urine Nitrate Negative Urine Bilirubin Negative Urine Urobilinogen 0.2 Ur Leukocyte Esterase Large H Urine RBC 1 - 3 H Urine WBC Tntc H Ur Epithelial Cells None Urine Bacteria Trace Stool Occult Blood Digoxin 0.9 Influenza Typ A,B (EIA) Blood Type Antibody Screen Crossmatch BBK History Checked 11/14/18 11/14/18 11/14/18 19:40 20:12 21:30 WBC RBC Hgb 7.9 L Hct 25.9 L MCV MCH MCHC RDW Plt Count MPV Neut % (Auto) Lymph % (Auto) [place] % (Auto) Eos % (Auto) Baso % (Auto) Lymph # (Auto) [place] # (Auto) Eos # (Auto) Baso # (Auto) Absolute Neuts (auto) Neutrophils % (Manual) Lymphocytes % (Manual) Monocytes % (Manual) Basophils % (Manual) Platelet Evaluation PT INR APTT pCO2 29 L pO2 442.0 H HCO3 16.0 L ABG pH 7.35 ABG Total CO2 16.9 L ABG O2 Saturation 99.8 H ABG O2 Content 10.8 L ABG Base Excess -8.7 L ABG Hemoglobin 6.9 L ABG Carboxyhemoglobin 1.2 POC ABG HHb (Measured) 0.2 ABG Methemoglobin 0.9 ABG O2 Capacity 10.8 L ABG Potassium VBG pH VBG pCO2 VBG HCO3 VBG Total CO2 VBG O2 Sat (Calc) VBG Base Excess VBG Potassium Hgb O2 Saturation 97.7 Sodium Chloride Glucose Lactate Mechanical Rate FiO2 100.0 Tidal Volume PEEP Blood Gas Comments Crit Value Called To Crit Value Called By Blood Gas Notified Time Potassium Carbon Dioxide Anion Gap BUN Creatinine Est GFR ( Amer) Est GFR (Non-Af Amer) POC Glucose (mg/dL) Random Glucose Calcium Phosphorus Magnesium Total Bilirubin AST ALT Alkaline Phosphatase Lactate Dehydrogenase Total Creatine Kinase CK-MB (CK-2) CK-MB (CK-2) % Troponin I NT-Pro-B Natriuret Pep Total Protein Albumin Globulin Albumin/Globulin Ratio Amylase Lipase Procalcitonin Arterial Blood Potassium Venous Blood Potassium Urine Color Urine Appearance Urine pH Ur Specific [place] Urine Protein Urine Glucose (UA) Urine Ketones Urine Blood Urine Nitrate Urine Bilirubin Urine Urobilinogen Ur Leukocyte Esterase Urine RBC Urine WBC Ur Epithelial Cells Urine Bacteria Stool Occult Blood Digoxin Influenza Typ A,B (EIA) Negative for flu a/b Blood Type Antibody Screen Crossmatch BBK History Checked 11/14/18 11/15/18 11/15/18 21:30 00:48 02:00 WBC RBC Hgb 7.8 L Hct 25.5 L MCV MCH MCHC RDW Plt Count MPV Neut % (Auto) Lymph % (Auto) [place] % (Auto) Eos % (Auto) Baso % (Auto) Lymph # (Auto) [place] # (Auto) Eos # (Auto) Baso # (Auto) Absolute Neuts (auto) Neutrophils % (Manual) Lymphocytes % (Manual) Monocytes % (Manual) Basophils % (Manual) Platelet Evaluation PT INR APTT pCO2 pO2 67 H HCO3 ABG pH ABG Total CO2 ABG O2 Saturation ABG O2 Content ABG Base Excess ABG Hemoglobin ABG Carboxyhemoglobin POC ABG HHb (Measured) ABG Methemoglobin ABG O2 Capacity ABG Potassium VBG pH 7.30 L VBG pCO2 32.0 L VBG HCO3 15.7 L VBG Total CO2 16.7 L VBG O2 Sat (Calc) 94.2 H VBG Base Excess -9.6 L VBG Potassium 3.8 Hgb O2 Saturation Sodium 141.0 Chloride 116.0 H Glucose 286 H Lactate 1.0 Mechanical Rate FiO2 21.0 Tidal Volume PEEP Blood Gas Comments Crit Value Called To Crit Value Called By Blood Gas Notified Time Potassium Carbon Dioxide Anion Gap BUN Creatinine Est GFR ( Amer) Est GFR (Non-Af Amer) POC Glucose (mg/dL) Random Glucose Calcium Phosphorus Magnesium Total Bilirubin AST ALT Alkaline Phosphatase Lactate Dehydrogenase Total Creatine Kinase CK-MB (CK-2) CK-MB (CK-2) % Troponin I 25.40 H* NT-Pro-B Natriuret Pep Total Protein Albumin Globulin Albumin/Globulin Ratio Amylase Lipase Procalcitonin Arterial Blood Potassium Venous Blood Potassium 3.8 Urine Color Urine Appearance Urine pH Ur Specific [place] Urine Protein Urine Glucose (UA) Urine Ketones Urine Blood Urine Nitrate Urine Bilirubin Urine Urobilinogen Ur Leukocyte Esterase Urine RBC Urine WBC Ur Epithelial Cells Urine Bacteria Stool Occult Blood Digoxin Influenza Typ A,B (EIA) Blood Type Antibody Screen Crossmatch BBK History Checked 11/15/18 11/15/18 11/15/18 06:20 07:00 07:00 WBC 14.1 H D RBC 3.27 L Hgb 8.7 L Hct 27.9 L MCV 85.3 MCH 26.6 MCHC 31.2 RDW 15.6 H Plt Count 188 MPV 11.3 H Neut % (Auto) 93.2 H Lymph % (Auto) 3.8 L [place] % (Auto) 2.9 Eos % (Auto) 0.0 L Baso % (Auto) 0.1 Lymph # (Auto) 0.5 L [place] # (Auto) 0.4 Eos # (Auto) 0.0 Baso # (Auto) 0.02 Absolute Neuts (auto) 13.10 H Neutrophils % (Manual) 97 H Lymphocytes % (Manual) 1 L Monocytes % (Manual) 1 Basophils % (Manual) 1 Platelet Evaluation Normal PT INR APTT pCO2 26 L pO2 275.0 H HCO3 15.0 L ABG pH 7.37 ABG Total CO2 15.8 L ABG O2 Saturation 99.5 H ABG O2 Content 14.8 L ABG Base Excess -9.0 L ABG Hemoglobin 10.3 L ABG Carboxyhemoglobin 1.3 POC ABG HHb (Measured) 0.5 ABG Methemoglobin 1.1 ABG O2 Capacity 14.9 L ABG Potassium VBG pH VBG pCO2 VBG HCO3 VBG Total CO2 VBG O2 Sat (Calc) VBG Base Excess VBG Potassium Hgb O2 Saturation 97.1 Sodium 143 Chloride 113 H Glucose Lactate Mechanical Rate FiO2 60.0 Tidal Volume PEEP Blood Gas Comments Crit Value Called To Crit Value Called By Blood Gas Notified Time Potassium 4.0 Carbon Dioxide 18 L Anion Gap 15 BUN 27 H Creatinine 1.2 Est GFR ( Amer) > 60 Est GFR (Non-Af Amer) > 60 POC Glucose (mg/dL) Random Glucose 276 H Calcium 7.8 L Phosphorus 4.6 H Magnesium 1.5 L Total Bilirubin 0.5 AST 89 H D ALT 21 Alkaline Phosphatase 98 Lactate Dehydrogenase Total Creatine Kinase CK-MB (CK-2) CK-MB (CK-2) % Troponin I 24.40 H* NT-Pro-B Natriuret Pep Total Protein 6.6 Albumin 3.0 Globulin 3.7 Albumin/Globulin Ratio 0.8 L Amylase Lipase Procalcitonin Arterial Blood Potassium Venous Blood Potassium Urine Color Urine Appearance Urine pH Ur Specific [place] Urine Protein Urine Glucose (UA) Urine Ketones Urine Blood Urine Nitrate Urine Bilirubin Urine Urobilinogen Ur Leukocyte Esterase Urine RBC Urine WBC Ur Epithelial Cells Urine Bacteria Stool Occult Blood Digoxin Influenza Typ A,B (EIA) Blood Type Antibody Screen Crossmatch BBK History Checked 11/15/18 11/15/18 11/15/18 08:30 09:30 13:40 WBC RBC Hgb 10.4 L Hct 33.2 L MCV MCH MCHC RDW Plt Count MPV Neut % (Auto) Lymph % (Auto) [place] % (Auto) Eos % (Auto) Baso % (Auto) Lymph # (Auto) [place] # (Auto) Eos # (Auto) Baso # (Auto) Absolute Neuts (auto) Neutrophils % (Manual) Lymphocytes % (Manual) Monocytes % (Manual) Basophils % (Manual) Platelet Evaluation PT INR APTT pCO2 28 L pO2 284.0 H HCO3 13.8 L ABG pH 7.30 L ABG Total CO2 14.7 L ABG O2 Saturation 99.8 H ABG O2 Content ABG Base Excess -11.1 L ABG Hemoglobin ABG Carboxyhemoglobin POC ABG HHb (Measured) ABG Methemoglobin ABG O2 Capacity ABG Potassium 3.7 VBG pH VBG pCO2 VBG HCO3 VBG Total CO2 VBG O2 Sat (Calc) VBG Base Excess VBG Potassium Hgb O2 Saturation Sodium 142.0 Chloride 117.0 H Glucose 341 H Lactate 2.7 H Mechanical Rate FiO2 100.0 Tidal Volume PEEP Blood Gas Comments Status post-cardiac arrest Crit Value Called To Dr. casanova Crit Value Called By Josie duarte 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 Blood Gas Notified Time 940 Potassium Carbon Dioxide Anion Gap BUN Creatinine Est GFR ( Amer) Est GFR (Non-Af Amer) POC Glucose (mg/dL) Random Glucose Calcium Phosphorus Magnesium Total Bilirubin AST ALT Alkaline Phosphatase Lactate Dehydrogenase Total Creatine Kinase CK-MB (CK-2) CK-MB (CK-2) % Troponin I NT-Pro-B Natriuret Pep Total Protein Albumin Globulin Albumin/Globulin Ratio Amylase Lipase Procalcitonin Arterial Blood Potassium 3.7 Venous Blood Potassium Urine Color Urine Appearance Urine pH Ur Specific [place] Urine Protein Urine Glucose (UA) Urine Ketones Urine Blood Urine Nitrate Urine Bilirubin Urine Urobilinogen Ur Leukocyte Esterase Urine RBC Urine WBC Ur Epithelial Cells Urine Bacteria Stool Occult Blood Negative Digoxin Influenza Typ A,B (EIA) Blood Type Antibody Screen Crossmatch BBK History Checked 11/15/18 11/15/18 11/15/18 13:40 15:00 16:11 WBC RBC Hgb Hct MCV MCH MCHC RDW Plt Count MPV Neut % (Auto) Lymph % (Auto) [place] % (Auto) Eos % (Auto) Baso % (Auto) Lymph # (Auto) [place] # (Auto) Eos # (Auto) Baso # (Auto) Absolute Neuts (auto) Neutrophils % (Manual) Lymphocytes % (Manual) Monocytes % (Manual) Basophils % (Manual) Platelet Evaluation PT INR APTT pCO2 pO2 47 HCO3 ABG pH ABG Total CO2 ABG O2 Saturation ABG O2 Content ABG Base Excess ABG Hemoglobin ABG Carboxyhemoglobin POC ABG HHb (Measured) ABG Methemoglobin ABG O2 Capacity ABG Potassium VBG pH 7.07 L* VBG pCO2 49.0 VBG HCO3 14.2 L VBG Total CO2 15.7 L VBG O2 Sat (Calc) 75.7 H VBG Base Excess -15.8 L VBG Potassium 3.7 Hgb O2 Saturation Sodium 142.0 143 Chloride 113.0 H 112 H Glucose 463 H* D Lactate 2.5 H Mechanical Rate FiO2 21.0 Tidal Volume PEEP Blood Gas Comments Crit Value Called To Michelle sanchez Crit Value Called By Ab Blood Gas Notified Time 1350 Potassium 3.7 Carbon Dioxide 16 L Anion Gap 19 BUN 27 H Creatinine 1.2 Est GFR ( Amer) > 60 Est GFR (Non-Af Amer) > 60 POC Glucose (mg/dL) 410 H* Random Glucose 414 H* D Calcium 7.6 L Phosphorus 6.1 H Magnesium 1.8 Total Bilirubin 0.6 AST 85 H ALT 24 Alkaline Phosphatase 117 Lactate Dehydrogenase Total Creatine Kinase CK-MB (CK-2) CK-MB (CK-2) % Troponin I NT-Pro-B Natriuret Pep Total Protein 6.8 Albumin 3.2 Globulin 3.6 Albumin/Globulin Ratio 0.9 L Amylase Lipase Procalcitonin Arterial Blood Potassium Venous Blood Potassium 3.7 Urine Color Urine Appearance Urine pH Ur Specific [place] Urine Protein Urine Glucose (UA) Urine Ketones Urine Blood Urine Nitrate Urine Bilirubin Urine Urobilinogen Ur Leukocyte Esterase Urine RBC Urine WBC Ur Epithelial Cells Urine Bacteria Stool Occult Blood Digoxin Influenza Typ A,B (EIA) Blood Type Antibody Screen Crossmatch BBK History Checked 11/15/18 17:00 WBC RBC Hgb Hct MCV MCH MCHC RDW Plt Count MPV Neut % (Auto) Lymph % (Auto) [place] % (Auto) Eos % (Auto) Baso % (Auto) Lymph # (Auto) [place] # (Auto) Eos # (Auto) Baso # (Auto) Absolute Neuts (auto) Neutrophils % (Manual) Lymphocytes % (Manual) Monocytes % (Manual) Basophils % (Manual) Platelet Evaluation PT INR APTT pCO2 27 L pO2 153.0 H HCO3 13.3 L ABG pH 7.30 L ABG Total CO2 14.1 L ABG O2 Saturation 99.6 H ABG O2 Content ABG Base Excess -11.5 L ABG Hemoglobin ABG Carboxyhemoglobin POC ABG HHb (Measured) ABG Methemoglobin ABG O2 Capacity ABG Potassium 4.1 VBG pH VBG pCO2 VBG HCO3 VBG Total CO2 VBG O2 Sat (Calc) VBG Base Excess VBG Potassium Hgb O2 Saturation Sodium 140.0 Chloride 110.0 H Glucose 412 H* Lactate 1.2 Mechanical Rate 25 FiO2 40.0 Tidal Volume 400 PEEP 5 Blood Gas Comments Crit Value Called To Dr. sparks Crit Value Called By Josie duarte 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 Blood Gas Notified Time 1718 Potassium Carbon Dioxide Anion Gap BUN Creatinine Est GFR ( Amer) Est GFR (Non-Af Amer) POC Glucose (mg/dL) Random Glucose Calcium Phosphorus Magnesium Total Bilirubin AST ALT Alkaline Phosphatase Lactate Dehydrogenase Total Creatine Kinase CK-MB (CK-2) CK-MB (CK-2) % Troponin I NT-Pro-B Natriuret Pep Total Protein Albumin Globulin Albumin/Globulin Ratio Amylase Lipase Procalcitonin Arterial Blood Potassium 4.1 Venous Blood Potassium Urine Color Urine Appearance Urine pH Ur Specific [place] Urine Protein Urine Glucose (UA) Urine Ketones Urine Blood Urine Nitrate Urine Bilirubin Urine Urobilinogen Ur Leukocyte Esterase Urine RBC Urine WBC Ur Epithelial Cells Urine Bacteria Stool Occult Blood Digoxin Influenza Typ A,B (EIA) Blood Type Antibody Screen Crossmatch BBK History Checked Radiology Impressions: Radiology Impressions Chest X-Ray 11/14/18 18:15 IMPRESSION: No acute findings. Head CT 11/14/18 19:09 IMPRESSION: No acute intracranial abnormality. Chronic lacunar infarctions in the right dennison radiata and basal ganglia. Mild chronic microangiopathic changes and mild age-related global parenchymal volume loss. A preliminary report was provided by [facility]. Chest X-Ray 11/14/18 20:30 IMPRESSION: Endotracheal tube terminates in the mid trachea. The nasogastric tube terminates in the stomach. Patchy airspace disease in the right upper and lower lobe could represent atelectasis or venous congestion. Chest X-Ray 11/15/18 05:00 IMPRESSION: Stable position of endotracheal and nasogastric tubes. No acute findings. Chest X-Ray 11/15/18 09:21 IMPRESSION: No active pulmonary disease. Moderate cardiomegaly and pulmonary venous congestion. Stable position of support tubes. EKG/Cardiology Studies: Cardiology / EKG Studies 11/14/18 18:15 ELECTROCARDIOGRAM Stat Comment: Reason For Exam: gi bleed 11/15/18 00:15 EKG [ELECTROCARDIOGRAM] Q6H Comment: Reason For Exam: trop 25.80 11/15/18 06:15 EKG [ELECTROCARDIOGRAM] Q6H Comment: Reason For Exam: trop 25.80 11/15/18 10:14 EKG [ELECTROCARDIOGRAM] Stat Comment: Reason For Exam: Code Blue Attending/Attestation - Attestation I have personally seen and examined this patient.: Yes I have fully participated in the care of the patient.: Yes I have reviewed all pertinent clinical information: Yes Notes (Text): 11/15/18 17:[address] Casanova note
--- NOTE | 2018-11-15 15:43 | CP.PCM.CON ---
<Hunter Narayanan - Last Filed: 11/15/18 17:40> History of Present Illness - History of Present Illness History of Present Illness: PGY4 GI fellow consult note The following obtained from chart review, hospital staff and family at bedside due to patient's clinical condition 63-year-old white male with a past medical history of biventricular CHF, atrial fibrillation, diabetes type 2, hypertension, GERD, ITP (on TPO agonist), pseudogout, anxiety, COPD, CKD who was brought in after cardiac arrest in the field. patient was recently released from rehab a few days prior after prolonged hospital stay. states that his only complaint was some nonspecific abdominal discomfort but otherwise believes he was in his normal state of health. She did report some dark stools but they both attributed this to iron supplementation as he was otherwise without any other systemic symptoms. She states she heard him make some nonspecific noise of discomfort in another room but when she went to the room to see him he was unresponsive and without a pulse. Per documentation, after a round of CPR epi and defibrillation ROSC was obtained. Shortly after admission on 11/15/18 he again had cardiac arrest with ROSC after CPR and epinephrine administration. GI consulted for anemia/possible GI bleed. 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 foot. - HEENT Hx HEENT Problems: No - RENAL Hx Chronic Kidney Disease: No Hx Dialysis: Yes (due to septic shock) - ENDOCRINE/METABOLIC Hx Diabetes Mellitus Type 2: Yes - HEMATOLOGICAL/ONCOLOGICAL Hx Cancer: No Other/Comment: ITP - INTEGUMENTARY Other/Comment: right elbow red swollen warm to touch just started 01/17/16. pt hit elbow in work getting a pot, developed staph infection, picc line in for iv abx finished january 06, now elbow is getting red and swollen again. when pt came to er back in november for r elbow injury developed allergic reaction hives throat closed swollen eyes and lips. Pt does not know what from. pt sustained a 2nd degree burn 2016 at work to right forearm which is healed - MUSCULOSKELETAL/RHEUMATOLOGICAL Hx Musculoskeletal Disorders: No - GASTROINTESTINAL Hx Gastrointestinal Disorders: Yes (RECTAL BLEED 11-29-16 DX DIVERTICULITIS) Hx Diverticulitis: Yes Other/Comment: G-tube - GENITOURINARY/GYNECOLOGICAL Hx Genitourinary Disorders: No - PSYCHIATRIC Hx Psychophysiologic Disorder: No Hx Substance Use: No - SURGICAL HISTORY Hx Mastectomy: No - ANESTHESIA Hx Anesthesia: Yes Hx Anesthesia Reactions: No Hx Malignant Hyperthermia: No Meds Allergies/Adverse Reactions: Allergies Allergy/AdvReac Type Severity Reaction Status Date / Time nut Allergy RASH Uncoded 11/14/18 18:19 fruit AdvReac RASH Uncoded 11/14/18 18:19 - Medications Medications: Current Medications Atorvastatin Calcium (Lipitor) 40 mg PO DIN JHON Hydralazine HCl (Apresoline) 25 mg PO QID [facility] NOREPINEPHRINE BIT/0.9 % NACL (Levophed 4 Mg/ 250 Ml Ns Premixed) 4 mg in 250 mls @ 15 mls/hr IV .[id number] PRN; Protocol PRN Reason: TITRATE PER MD ORDER Last Titration: 11/14/18 23:11 Dose: 0 mcg/min, 0 mls/hr Sodium Chloride (Sodium Chloride 0.9%) 1,000 mls @ 100 mls/hr IV .Q10H J[facility]ON Last Admin: 11/14/18 20:29 Dose: 100 mls/hr Piperacillin Sod/Tazobactam Sod (Zosyn 3.375 In Ns 100ml) 100 mls @ 25 mls/hr IVPB Q12 J[facility]ON; Protocol Stop: 11/23/18 22:01 Last Admin: 11/15/18 11:30 Dose: 25 mls/hr Vancomycin HCl (Vancomycin 1gm) 1 gm in 250 mls @ 167 mls/hr IVPB DAILY [facility]; Protocol Stop: 11/23/18 10:01 Last Admin: 11/15/18 10:19 Dose: 167 mls/hr Doxycycline Hyclate 100 mg/ (Sodium Chloride) 100 mls @ 100 mls/hr IVPB Q12 J[facility]ON; Protocol Stop: 11/22/18 22:01 Last Admin: 11/15/18 10:57 Dose: 100 mls/hr Pantoprazole Sodium (Protonix 40mg Ivpb) 40 mg in 100 mls @ 20 mls/hr IVPB .Q5H J[facility]ON Last Admin: 11/15/18 05:00 Dose: 20 mls/hr Amiodarone HCl/Dextrose (Nexterone 360 Mg In D5w 200 Ml (Premix)) 360 mg in 200 mls @ 33.333 mls/hr IV .Q6H J[facility]ON; Protocol Last Admin: 11/15/18 09:45 Dose: 33.333 mls/hr Levetiracetam (Keppra 1000mg/100ml Ns) 100 mls @ 460 mls/hr IV Q12 [facility]ON Cisatracurium Besylate 200 mg/ (Sodium Chloride) 270 mls @ 6.8 mls/hr IV .Q24H PRN; Protocol PRN Reason: TITRATE PER MD ORDER Last Titration: 11/15/18 13:30 Dose: 0.5 mcg/kg/min, 3.4 mls/hr Propofol (Diprivan) 1,000 mg in 100 mls @ 2.517 mls/hr IV .Q24H PRN; Protocol PRN Reason: TITRATE PER MD ORDER Last Admin: 11/15/18 12:30 Dose: 5 mcg/kg/min, 2.517 mls/hr Isosorbide Mononitrate (Imdur Er) 30 mg PO DAILY [facility] Metoprolol Tartrate (Lopressor) 25 mg PO BID [facility] Ondansetron HCl (Zofran Inj) 4 mg IVP Q6H PRN PRN Reason: Nausea/Vomiting Last Admin: 11/15/18 05:03 Dose: 4 mg Physical Exam - Constitutional Appears: Chronically Ill Additional comments: intubated, on vent - Head Exam Head Exam: ATRAUMATIC Additional comments: wearing EEG monitor - ENT Exam ENT Exam: Mucous Membranes Dry. absent: Mucous Membranes Moist - Respiratory Exam Additional comments: CTA anteriorly, symmetric expansion - Cardiovascular Exam Cardiovascular Exam: REGULAR RHYTHM, RRR - GI/Abdominal Exam GI & Abdominal Exam: Distended (mildly), Normal Bowel Sounds, Soft. absent: Bruit, Diminished Bowel Sounds, Firm, Organomegaly, Rigid, Tenderness - Rectal Exam Rectal Exam: Deferred - Extremities Exam Extremities exam: Positive for: normal inspection. Negative for: pedal edema - Neurological Exam Neurological exam: Altered Additional comments: sedated on vent - Psychiatric Exam Additional comments: unable to assess mood due to clinical condition - Skin Skin Exam: Normal Color, Warm Results - Vital Signs Recent Vital Signs: Last Vital Signs Temp 99.7 F H 11/15/18 08:30 Pulse 76 11/15/18 15:20 Resp 31 H 11/15/18 08:27 BP 93/52 L 11/15/18 15:15 Pulse Ox 99 11/15/18 15:20 - Labs Result Diagrams: 11/15/18 13:40 11/15/18 15:00 Labs: Laboratory Results - last 24 hr 11/14/18 11/14/18 11/14/18 18:19 18:19 18:19 WBC 19.1 H D RBC 3.51 Hgb 9.1 L Hct 30.3 L MCV 86.3 MCH 25.9 MCHC 30.0 L RDW 16.2 H Plt Count 341 MPV 11.3 H Neut % (Auto) 81.1 H Lymph % (Auto) 12.3 L [place] % (Auto) 5.6 Eos % (Auto) 0.6 L Baso % (Auto) 0.4 Lymph # (Auto) 2.4 [place] # (Auto) 1.1 H Eos # (Auto) 0.1 Baso # (Auto) 0.07 Absolute Neuts (auto) 15.49 H Neutrophils % (Manual) Lymphocytes % (Manual) Monocytes % (Manual) Basophils % (Manual) Platelet Evaluation PT 14.4 H INR 1.30 APTT 30.7 pCO2 pO2 HCO3 ABG pH ABG Total CO2 ABG O2 Saturation ABG O2 Content ABG Base Excess ABG Hemoglobin ABG Carboxyhemoglobin POC ABG HHb (Measured) ABG Methemoglobin ABG O2 Capacity ABG Potassium VBG pH VBG pCO2 VBG HCO3 VBG Total CO2 VBG O2 Sat (Calc) VBG Base Excess VBG Potassium Hgb O2 Saturation Sodium 139 Chloride 107 Glucose Lactate FiO2 Blood Gas Comments Crit Value Called To Crit Value Called By Blood Gas Notified Time Potassium 4.5 Carbon Dioxide 20 L Anion Gap 16 BUN 31 H Creatinine 1.3 Est GFR ( Amer) > 60 Est GFR (Non-Af Amer) 56 Random Glucose 315 H* D Calcium 8.8 Phosphorus Magnesium Total Bilirubin 0.4 AST 121 H D ALT 20 Alkaline Phosphatase 110 Lactate Dehydrogenase 1830 H Total Creatine Kinase 327 H CK-MB (CK-2) 17.1 H CK-MB (CK-2) % 5.2 H Troponin I 25.80 H* D NT-Pro-B Natriuret Pep Total Protein 7.3 Albumin 3.3 Globulin 4.0 Albumin/Globulin Ratio 0.8 L Amylase 54 Lipase 74 Procalcitonin Arterial Blood Potassium Venous Blood Potassium Urine Color Urine Appearance Urine pH Ur Specific [place] Urine Protein Urine Glucose (UA) Urine Ketones Urine Blood Urine Nitrate Urine Bilirubin Urine Urobilinogen Ur Leukocyte Esterase Urine RBC Urine WBC Ur Epithelial Cells Urine Bacteria Stool Occult Blood Digoxin Influenza Typ A,B (EIA) Blood Type Antibody Screen Crossmatch BBK History Checked 11/14/18 11/14/18 11/14/18 18:19 18:19 18:40 WBC RBC Hgb Hct MCV MCH MCHC RDW Plt Count MPV Neut % (Auto) Lymph % (Auto) [place] % (Auto) Eos % (Auto) Baso % (Auto) Lymph # (Auto) [place] # (Auto) Eos # (Auto) Baso # (Auto) Absolute Neuts (auto) Neutrophils % (Manual) Lymphocytes % (Manual) Monocytes % (Manual) Basophils % (Manual) Platelet Evaluation PT INR APTT pCO2 pO2 98 H HCO3 ABG pH ABG Total CO2 ABG O2 Saturation ABG O2 Content ABG Base Excess ABG Hemoglobin ABG Carboxyhemoglobin POC ABG HHb (Measured) ABG Methemoglobin ABG O2 Capacity ABG Potassium VBG pH 7.17 L* VBG pCO2 43.0 VBG HCO3 15.7 L VBG Total CO2 17.0 L VBG O2 Sat (Calc) 97.6 H VBG Base Excess -12.4 L VBG Potassium 4.6 Hgb O2 Saturation Sodium 139.0 Chloride 108.0 H Glucose 324 H Lactate 5.8 H* FiO2 21.0 Blood Gas Comments Crit Value Called To Silverio rockwell Crit Value Called By [facility] Blood Gas Notified Time 1835 Potassium Carbon Dioxide Anion Gap BUN Creatinine Est GFR ( Amer) Est GFR (Non-Af Amer) Random Glucose Calcium Phosphorus Magnesium Total Bilirubin AST ALT Alkaline Phosphatase Lactate Dehydrogenase Total Creatine Kinase CK-MB (CK-2) CK-MB (CK-2) % Troponin I NT-Pro-B Natriuret Pep 04517 H Total Protein Albumin Globulin Albumin/Globulin Ratio Amylase Lipase Procalcitonin Arterial Blood Potassium Venous Blood Potassium 4.6 Urine Color Urine Appearance Urine pH Ur Specific [place] Urine Protein Urine Glucose (UA) Urine Ketones Urine Blood Urine Nitrate Urine Bilirubin Urine Urobilinogen Ur Leukocyte Esterase Urine RBC Urine WBC Ur Epithelial Cells Urine Bacteria Stool Occult Blood Digoxin Influenza Typ A,B (EIA) Blood Type O POSITIVE Antibody Screen Negative Crossmatch See Detail BBK History Checked Patient has bt 11/14/18 11/14/18 11/14/18 18:40 18:40 19:00 WBC RBC Hgb Hct MCV MCH MCHC RDW Plt Count MPV Neut % (Auto) Lymph % (Auto) [place] % (Auto) Eos % (Auto) Baso % (Auto) Lymph # (Auto) [place] # (Auto) Eos # (Auto) Baso # (Auto) Absolute Neuts (auto) Neutrophils % (Manual) Lymphocytes % (Manual) Monocytes % (Manual) Basophils % (Manual) Platelet Evaluation PT INR APTT pCO2 pO2 HCO3 ABG pH ABG Total CO2 ABG O2 Saturation ABG O2 Content ABG Base Excess ABG Hemoglobin ABG Carboxyhemoglobin POC ABG HHb (Measured) ABG Methemoglobin ABG O2 Capacity ABG Potassium VBG pH VBG pCO2 VBG HCO3 VBG Total CO2 VBG O2 Sat (Calc) VBG Base Excess VBG Potassium Hgb O2 Saturation Sodium Chloride Glucose Lactate FiO2 Blood Gas Comments Crit Value Called To Crit Value Called By Blood Gas Notified Time Potassium Carbon Dioxide Anion Gap BUN Creatinine Est GFR ( Amer) Est GFR (Non-Af Amer) Random Glucose Calcium Phosphorus Magnesium Total Bilirubin AST ALT Alkaline Phosphatase Lactate Dehydrogenase Total Creatine Kinase CK-MB (CK-2) CK-MB (CK-2) % Troponin I NT-Pro-B Natriuret Pep Total Protein Albumin Globulin Albumin/Globulin Ratio Amylase Lipase Procalcitonin 0.11 L Arterial Blood Potassium Venous Blood Potassium Urine Color Yellow Urine Appearance Slight-cloudy Urine pH 6.5 Ur Specific [place] 1.010 Urine Protein 30 H Urine Glucose (UA) Negative Urine Ketones Negative Urine Blood Trace-lysed H Urine Nitrate Negative Urine Bilirubin Negative Urine Urobilinogen 0.2 Ur Leukocyte Esterase Large H Urine RBC 1 - 3 H Urine WBC Tntc H Ur Epithelial Cells None Urine Bacteria Trace Stool Occult Blood Digoxin 0.9 Influenza Typ A,B (EIA) Blood Type Antibody Screen Crossmatch BBK History Checked 11/14/18 11/14/18 11/14/18 19:40 20:12 21:30 WBC RBC Hgb 7.9 L Hct 25.9 L MCV MCH MCHC RDW Plt Count MPV Neut % (Auto) Lymph % (Auto) [place] % (Auto) Eos % (Auto) Baso % (Auto) Lymph # (Auto) [place] # (Auto) Eos # (Auto) Baso # (Auto) Absolute Neuts (auto) Neutrophils % (Manual) Lymphocytes % (Manual) Monocytes % (Manual) Basophils % (Manual) Platelet Evaluation PT INR APTT pCO2 29 L pO2 442.0 H HCO3 16.0 L ABG pH 7.35 ABG Total CO2 16.9 L ABG O2 Saturation 99.8 H ABG O2 Content 10.8 L ABG Base Excess -8.7 L ABG Hemoglobin 6.9 L ABG Carboxyhemoglobin 1.2 POC ABG HHb (Measured) 0.2 ABG Methemoglobin 0.9 ABG O2 Capacity 10.8 L ABG Potassium VBG pH VBG pCO2 VBG HCO3 VBG Total CO2 VBG O2 Sat (Calc) VBG Base Excess VBG Potassium Hgb O2 Saturation 97.7 Sodium Chloride Glucose Lactate FiO2 100.0 Blood Gas Comments Crit Value Called To Crit Value Called By Blood Gas Notified Time Potassium Carbon Dioxide Anion Gap BUN Creatinine Est GFR ( Amer) Est GFR (Non-Af Amer) Random Glucose Calcium Phosphorus Magnesium Total Bilirubin AST ALT Alkaline Phosphatase Lactate Dehydrogenase Total Creatine Kinase CK-MB (CK-2) CK-MB (CK-2) % Troponin I NT-Pro-B Natriuret Pep Total Protein Albumin Globulin Albumin/Globulin Ratio Amylase Lipase Procalcitonin Arterial Blood Potassium Venous Blood Potassium Urine Color Urine Appearance Urine pH Ur Specific [place] Urine Protein Urine Glucose (UA) Urine Ketones Urine Blood Urine Nitrate Urine Bilirubin Urine Urobilinogen Ur Leukocyte Esterase Urine RBC Urine WBC Ur Epithelial Cells Urine Bacteria Stool Occult Blood Digoxin Influenza Typ A,B (EIA) Negative for flu a/b Blood Type Antibody Screen Crossmatch BBK History Checked 11/14/18 11/15/18 11/15/18 21:30 00:48 02:00 WBC RBC Hgb 7.8 L Hct 25.5 L MCV MCH MCHC RDW Plt Count MPV Neut % (Auto) Lymph % (Auto) [place] % (Auto) Eos % (Auto) Baso % (Auto) Lymph # (Auto) [place] # (Auto) Eos # (Auto) Baso # (Auto) Absolute Neuts (auto) Neutrophils % (Manual) Lymphocytes % (Manual) Monocytes % (Manual) Basophils % (Manual) Platelet Evaluation PT INR APTT pCO2 pO2 67 H HCO3 ABG pH ABG Total CO2 ABG O2 Saturation ABG O2 Content ABG Base Excess ABG Hemoglobin ABG Carboxyhemoglobin POC ABG HHb (Measured) ABG Methemoglobin ABG O2 Capacity ABG Potassium VBG pH 7.30 L VBG pCO2 32.0 L VBG HCO3 15.7 L VBG Total CO2 16.7 L VBG O2 Sat (Calc) 94.2 H VBG Base Excess -9.6 L VBG Potassium 3.8 Hgb O2 Saturation Sodium 141.0 Chloride 116.0 H Glucose 286 H Lactate 1.0 FiO2 21.0 Blood Gas Comments Crit Value Called To Crit Value Called By Blood Gas Notified Time Potassium Carbon Dioxide Anion Gap BUN Creatinine Est GFR ( Amer) Est GFR (Non-Af Amer) Random Glucose Calcium Phosphorus Magnesium Total Bilirubin AST ALT Alkaline Phosphatase Lactate Dehydrogenase Total Creatine Kinase CK-MB (CK-2) CK-MB (CK-2) % Troponin I 25.40 H* NT-Pro-B Natriuret Pep Total Protein Albumin Globulin Albumin/Globulin Ratio Amylase Lipase Procalcitonin Arterial Blood Potassium Venous Blood Potassium 3.8 Urine Color Urine Appearance Urine pH Ur Specific [place] Urine Protein Urine Glucose (UA) Urine Ketones Urine Blood Urine Nitrate Urine Bilirubin Urine Urobilinogen Ur Leukocyte Esterase Urine RBC Urine WBC Ur Epithelial Cells Urine Bacteria Stool Occult Blood Digoxin Influenza Typ A,B (EIA) Blood Type Antibody Screen Crossmatch BBK History Checked 11/15/18 11/15/18 11/15/18 06:20 07:00 07:00 WBC 14.1 H D RBC 3.27 L Hgb 8.7 L Hct 27.9 L MCV 85.3 MCH 26.6 MCHC 31.2 RDW 15.6 H Plt Count 188 MPV 11.3 H Neut % (Auto) 93.2 H Lymph % (Auto) 3.8 L [place] % (Auto) 2.9 Eos % (Auto) 0.0 L Baso % (Auto) 0.1 Lymph # (Auto) 0.5 L [place] # (Auto) 0.4 Eos # (Auto) 0.0 Baso # (Auto) 0.02 Absolute Neuts (auto) 13.10 H Neutrophils % (Manual) 97 H Lymphocytes % (Manual) 1 L Monocytes % (Manual) 1 Basophils % (Manual) 1 Platelet Evaluation Normal PT INR APTT pCO2 26 L pO2 275.0 H HCO3 15.0 L ABG pH 7.37 ABG Total CO2 15.8 L ABG O2 Saturation 99.5 H ABG O2 Content 14.8 L ABG Base Excess -9.0 L ABG Hemoglobin 10.3 L ABG Carboxyhemoglobin 1.3 POC ABG HHb (Measured) 0.5 ABG Methemoglobin 1.1 ABG O2 Capacity 14.9 L ABG Potassium VBG pH VBG pCO2 VBG HCO3 VBG Total CO2 VBG O2 Sat (Calc) VBG Base Excess VBG Potassium Hgb O2 Saturation 97.1 Sodium 143 Chloride 113 H Glucose Lactate FiO2 60.0 Blood Gas Comments Crit Value Called To Crit Value Called By Blood Gas Notified Time Potassium 4.0 Carbon Dioxide 18 L Anion Gap 15 BUN 27 H Creatinine 1.2 Est GFR ( Amer) > 60 Est GFR (Non-Af Amer) > 60 Random Glucose 276 H Calcium 7.8 L Phosphorus 4.6 H Magnesium 1.5 L Total Bilirubin 0.5 AST 89 H D ALT 21 Alkaline Phosphatase 98 Lactate Dehydrogenase Total Creatine Kinase CK-MB (CK-2) CK-MB (CK-2) % Troponin I 24.40 H* NT-Pro-B Natriuret Pep Total Protein 6.6 Albumin 3.0 Globulin 3.7 Albumin/Globulin Ratio 0.8 L Amylase Lipase Procalcitonin Arterial Blood Potassium Venous Blood Potassium Urine Color Urine Appearance Urine pH Ur Specific [place] Urine Protein Urine Glucose (UA) Urine Ketones Urine Blood Urine Nitrate Urine Bilirubin Urine Urobilinogen Ur Leukocyte Esterase Urine RBC Urine WBC Ur Epithelial Cells Urine Bacteria Stool Occult Blood Digoxin Influenza Typ A,B (EIA) Blood Type Antibody Screen Crossmatch BBK History Checked 11/15/18 11/15/18 11/15/18 08:30 09:30 13:40 WBC RBC Hgb 10.4 L Hct 33.2 L MCV MCH MCHC RDW Plt Count MPV Neut % (Auto) Lymph % (Auto) [place] % (Auto) Eos % (Auto) Baso % (Auto) Lymph # (Auto) [place] # (Auto) Eos # (Auto) Baso # (Auto) Absolute Neuts (auto) Neutrophils % (Manual) Lymphocytes % (Manual) Monocytes % (Manual) Basophils % (Manual) Platelet Evaluation PT INR APTT pCO2 28 L pO2 284.0 H HCO3 13.8 L ABG pH 7.30 L ABG Total CO2 14.7 L ABG O2 Saturation 99.8 H ABG O2 Content ABG Base Excess -11.1 L ABG Hemoglobin ABG Carboxyhemoglobin POC ABG HHb (Measured) ABG Methemoglobin ABG O2 Capacity ABG Potassium 3.7 VBG pH VBG pCO2 VBG HCO3 VBG Total CO2 VBG O2 Sat (Calc) VBG Base Excess VBG Potassium Hgb O2 Saturation Sodium 142.0 Chloride 117.0 H Glucose 341 H Lactate 2.7 H FiO2 100.0 Blood Gas Comments Status post-cardiac arrest Crit Value Called To Dr. hirsch Crit Value Called By Josie duarte temperature regulator Blood Gas Notified Time 940 Potassium Carbon Dioxide Anion Gap BUN Creatinine Est GFR ( Amer) Est GFR (Non-Af Amer) Random Glucose Calcium Phosphorus Magnesium Total Bilirubin AST ALT Alkaline Phosphatase Lactate Dehydrogenase Total Creatine Kinase CK-MB (CK-2) CK-MB (CK-2) % Troponin I NT-Pro-B Natriuret Pep Total Protein Albumin Globulin Albumin/Globulin Ratio Amylase Lipase Procalcitonin Arterial Blood Potassium 3.7 Venous Blood Potassium Urine Color Urine Appearance Urine pH Ur Specific [place] Urine Protein Urine Glucose (UA) Urine Ketones Urine Blood Urine Nitrate Urine Bilirubin Urine Urobilinogen Ur Leukocyte Esterase Urine RBC Urine WBC Ur Epithelial Cells Urine Bacteria Stool Occult Blood Negative Digoxin Influenza Typ A,B (EIA) Blood Type Antibody Screen Crossmatch BBK History Checked 11/15/18 13:40 WBC RBC Hgb Hct MCV MCH MCHC RDW Plt Count MPV Neut % (Auto) Lymph % (Auto) [place] % (Auto) Eos % (Auto) Baso % (Auto) Lymph # (Auto) [place] # (Auto) Eos # (Auto) Baso # (Auto) Absolute Neuts (auto) Neutrophils % (Manual) Lymphocytes % (Manual) Monocytes % (Manual) Basophils % (Manual) Platelet Evaluation PT INR APTT pCO2 pO2 47 HCO3 ABG pH ABG Total CO2 ABG O2 Saturation ABG O2 Content ABG Base Excess ABG Hemoglobin ABG Carboxyhemoglobin POC ABG HHb (Measured) ABG Methemoglobin ABG O2 Capacity ABG Potassium VBG pH 7.07 L* VBG pCO2 49.0 VBG HCO3 14.2 L VBG Total CO2 15.7 L VBG O2 Sat (Calc) 75.7 H VBG Base Excess -15.8 L VBG Potassium 3.7 Hgb O2 Saturation Sodium 142.0 Chloride 113.0 H Glucose 463 H* D Lactate 2.5 H FiO2 21.0 Blood Gas Comments Crit Value Called To Michelle sanchez Crit Value Called By Ab Blood Gas Notified Time 1350 Potassium Carbon Dioxide Anion Gap BUN Creatinine Est GFR ( Amer) Est GFR (Non-Af Amer) Random Glucose Calcium Phosphorus Magnesium Total Bilirubin AST ALT Alkaline Phosphatase Lactate Dehydrogenase Total Creatine Kinase CK-MB (CK-2) CK-MB (CK-2) % Troponin I NT-Pro-B Natriuret Pep Total Protein Albumin Globulin Albumin/Globulin Ratio Amylase Lipase Procalcitonin Arterial Blood Potassium Venous Blood Potassium 3.7 Urine Color Urine Appearance Urine pH Ur Specific [place] Urine Protein Urine Glucose (UA) Urine Ketones Urine Blood Urine Nitrate Urine Bilirubin Urine Urobilinogen Ur Leukocyte Esterase Urine RBC Urine WBC Ur Epithelial Cells Urine Bacteria Stool Occult Blood Digoxin Influenza Typ A,B (EIA) Blood Type Antibody Screen Crossmatch BBK History Checked Assessment & Plan - Assessment and Plan (Free Text) Assessment: 63-year-old white male with a past medical history of biventricular CHF, atrial fibrillation, diabetes type 2, hypertension, GERD, ITP (on TPO agonist), pseudogout, anxiety, COPD, CKD who was brought in after cardiac arrest in the field.GI consulted for anemia/possible GI bleed #Chronic normocytic anemia:hemoglobin near baseline. Rectal exam recently done with brown stool and furthermore Hemoccult was negative. No signs of active GI bleed at this time. Hemoglobin nearly appropriately responded after 3 units from 7s to 10s. Do not suspect anemia/GI bleed as a cause of cardiac arrest # Cardiac arrest: Suspect related to underlying arrhythmia in the setting of CHF with last echo in June 2018 with severe CHF. No AICD in place. Plan: PPI IV every 12 hours Monitor hemoglobin Cardiac workup Patient discussed with Dr. Hardy. Please see a gestation for further recommendations/changes <Kiko Hardy V - Last Filed: 11/16/18 19:35> Meds - Medications Medications: Current Medications Aspirin (Aspirin Chewable) 81 mg PO DAILY [facility] Last Admin: 11/15/18 17:29 Dose: 81 mg Atorvastatin Calcium (Lipitor) 80 mg PO DIN [facility] Last Admin: 11/15/18 17:29 Dose: 80 mg Dextrose (Dextrose 50% Inj) 0 ml IV STAT PRN; Protocol PRN Reason: Hypoglycemia Protocol Hydralazine HCl (Apresoline) 25 mg PO QID [facility] Last Admin: 11/15/18 23:21 Dose: Not Given NOREPINEPHRINE BIT/0.9 % NACL (Levophed 4 Mg/ 250 Ml Ns Premixed) 4 mg in 250 mls @ 15 mls/hr IV .[id number] PRN; Protocol PRN Reason: TITRATE PER MD ORDER Last Titration: 11/14/18 23:11 Dose: 0 mcg/min, 0 mls/hr Sodium Chloride (Sodium Chloride 0.9%) 1,000 mls @ 100 mls/hr IV .Q10H [facility] Last Admin: 11/14/18 20:29 Dose: 100 mls/hr Piperacillin Sod/Tazobactam Sod (Zosyn 3.375 In Ns 100ml) 100 mls @ 25 mls/hr IVPB Q12 [facility]; Protocol Stop: 11/23/18 22:01 Last Admin: 11/15/18 23:00 Dose: 25 mls/hr Vancomycin HCl (Vancomycin 1gm) 1 gm in 250 mls @ 167 mls/hr IVPB DAILY [facility]; Protocol Stop: 11/23/18 10:01 Last Admin: 11/15/18 10:19 Dose: 167 mls/hr Doxycycline Hyclate 100 mg/ (Sodium Chloride) 100 mls @ 100 mls/hr IVPB Q12 [facility]; Protocol Stop: 11/22/18 22:01 Last Admin: 11/15/18 22:00 Dose: 100 mls/hr Levetiracetam (Keppra 1000mg/100ml Ns) 100 mls @ 460 mls/hr IV Q12 [facility] Last Admin: 11/15/18 17:18 Dose: 460 mls/hr Cisatracurium Besylate 200 mg/ (Sodium Chloride) 270 mls @ 6.8 mls/hr IV .Q24H PRN; Protocol PRN Reason: TITRATE PER MD ORDER Last Titration: 11/15/18 23:25 Dose: 1 mcg/kg/min, 6.8 mls/hr Propofol (Diprivan) 1,000 mg in 100 mls @ 2.517 mls/hr IV .Q24H PRN; Protocol PRN Reason: TITRATE PER MD ORDER Last Admin: 11/15/18 12:30 Dose: 5 mcg/kg/min, 2.517 mls/hr Dextrose (Dextrose 5% In Water 1000 Ml) 1,000 mls @ 0 mls/hr IV .Q0M PRN; Protocol PRN Reason: Hypoglycemia Protocol Heparin Sodium/Sodium Chloride (Heparin 78075 Units/250ml 1/2 Normal Saline) 25,000 units in 250 mls @ 10.07 mls/hr IV .Q24H [facility]; Protocol Last Admin: 11/15/18 17:12 Dose: 12 units/kg/hr, 10.07 mls/hr Insulin Human Regular 100 (units/ Sodium Chloride) 100 mls @ 3 mls/hr IV .Q24H PRN; Protocol PRN Reason: TITRATE PER MD ORDER Last Titration: 11/15/18 23:00 Dose: 5 units/hr, 5 mls/hr Amiodarone HCl/Dextrose (Nexterone 360 Mg In D5w 200 Ml (Premix)) 360 mg in 200 mls @ 16.667 mls/hr IV .Q12H [facility]; Protocol Last Admin: 11/15/18 19:30 Dose: Not Given Isosorbide Mononitrate (Imdur Er) 30 mg PO DAILY [facility] Last Admin: 11/15/18 17:19 Dose: Not Given Metoprolol Tartrate (Lopressor) 25 mg PO BID [facility] [facility] Last Admin: 11/15/18 17:35 Dose: 25 mg Ondansetron HCl (Zofran Inj) 4 mg IVP Q6H PRN PRN Reason: Nausea/Vomiting Last Admin: 11/15/18 05:03 Dose: 4 mg Pantoprazole Sodium (Protonix Inj) 40 mg IVP Q12 JHON Last Admin: 11/15/18 23:37 Dose: 40 mg Results - Vital Signs Recent Vital Signs: Last Vital Signs Temp 93.7 F L 11/15/18 23:01 Pulse 58 L 11/15/18 23:56 Resp 31 H 11/15/18 08:27 BP 86/56 L 11/15/18 23:45 Pulse Ox 100 11/15/18 23:50 - Labs Result Diagrams: 11/16/18 05:30 11/16/18 05:30 Labs: Laboratory Results - last 24 hr 11/14/18 11/14/18 11/15/18 18:19 18:40 00:48 WBC RBC Hgb Hct MCV MCH MCHC RDW Plt Count MPV Neut % (Auto) Lymph % (Auto) [place] % (Auto) Eos % (Auto) Baso % (Auto) Lymph # (Auto) [place] # (Auto) Eos # (Auto) Baso # (Auto) Absolute Neuts (auto) Neutrophils % (Manual) Lymphocytes % (Manual) Monocytes % (Manual) Basophils % (Manual) Platelet Evaluation APTT pCO2 pO2 HCO3 ABG pH ABG Total CO2 ABG O2 Saturation ABG O2 Content ABG Base Excess ABG Hemoglobin ABG Carboxyhemoglobin POC ABG HHb (Measured) ABG Methemoglobin ABG O2 Capacity ABG Potassium VBG pH VBG pCO2 VBG HCO3 VBG Total CO2 VBG O2 Sat (Calc) VBG Base Excess VBG Potassium Hgb O2 Saturation Glucose Lactate Mechanical Rate FiO2 Tidal Volume PEEP Blood Gas Comments Crit Value Called To Crit Value Called By Blood Gas Notified Time Sodium Potassium Chloride Carbon Dioxide Anion Gap BUN Creatinine Est GFR ( Amer) Est GFR (Non-Af Amer) POC Glucose (mg/dL) Random Glucose Calcium Phosphorus Magnesium Total Bilirubin AST ALT Alkaline Phosphatase Troponin I 25.40 H* Total Protein Albumin Globulin Albumin/Globulin Ratio Procalcitonin 0.11 L Arterial Blood Potassium Venous Blood Potassium Stool Occult Blood Blood Type O POSITIVE Antibody Screen Negative Crossmatch See Detail BBK History Checked Patient has bt 11/15/18 11/15/18 11/15/18 02:00 06:20 07:00 WBC RBC Hgb 7.8 L Hct 25.5 L MCV MCH MCHC RDW Plt Count MPV Neut % (Auto) Lymph % (Auto) [place] % (Auto) Eos % (Auto) Baso % (Auto) Lymph # (Auto) [place] # (Auto) Eos # (Auto) Baso # (Auto) Absolute Neuts (auto) Neutrophils % (Manual) Lymphocytes % (Manual) Monocytes % (Manual) Basophils % (Manual) Platelet Evaluation APTT pCO2 26 L pO2 275.0 H HCO3 15.0 L ABG pH 7.37 ABG Total CO2 15.8 L ABG O2 Saturation 99.5 H ABG O2 Content 14.8 L ABG Base Excess -9.0 L ABG Hemoglobin 10.3 L ABG Carboxyhemoglobin 1.3 POC ABG HHb (Measured) 0.5 ABG Methemoglobin 1.1 ABG O2 Capacity 14.9 L ABG Potassium VBG pH VBG pCO2 VBG HCO3 VBG Total CO2 VBG O2 Sat (Calc) VBG Base Excess VBG Potassium Hgb O2 Saturation 97.1 Glucose Lactate Mechanical Rate FiO2 60.0 Tidal Volume PEEP Blood Gas Comments Crit Value Called To Crit Value Called By Blood Gas Notified Time Sodium 143 Potassium 4.0 Chloride 113 H Carbon Dioxide 18 L Anion Gap 15 BUN 27 H Creatinine 1.2 Est GFR ( Amer) > 60 Est GFR (Non-Af Amer) > 60 POC Glucose (mg/dL) Random Glucose 276 H Calcium 7.8 L Phosphorus 4.6 H Magnesium 1.5 L Total Bilirubin 0.5 AST 89 H D ALT 21 Alkaline Phosphatase 98 Troponin I 24.40 H* Total Protein 6.6 Albumin 3.0 Globulin 3.7 Albumin/Globulin Ratio 0.8 L Procalcitonin Arterial Blood Potassium Venous Blood Potassium Stool Occult Blood Blood Type Antibody Screen Crossmatch BBK History Checked 11/15/18 11/15/18 11/15/18 07:00 08:30 09:30 WBC 14.1 H D RBC 3.27 L Hgb 8.7 L Hct 27.9 L MCV 85.3 MCH 26.6 MCHC 31.2 RDW 15.6 H Plt Count 188 MPV 11.3 H Neut % (Auto) 93.2 H Lymph % (Auto) 3.8 L [place] % (Auto) 2.9 Eos % (Auto) 0.0 L Baso % (Auto) 0.1 Lymph # (Auto) 0.5 L [place] # (Auto) 0.4 Eos # (Auto) 0.0 Baso # (Auto) 0.02 Absolute Neuts (auto) 13.10 H Neutrophils % (Manual) 97 H Lymphocytes % (Manual) 1 L Monocytes % (Manual) 1 Basophils % (Manual) 1 Platelet Evaluation Normal APTT pCO2 28 L pO2 284.0 H HCO3 13.8 L ABG pH 7.30 L ABG Total CO2 14.7 L ABG O2 Saturation 99.8 H ABG O2 Content ABG Base Excess -11.1 L ABG Hemoglobin ABG Carboxyhemoglobin POC ABG HHb (Measured) ABG Methemoglobin ABG O2 Capacity ABG Potassium 3.7 VBG pH VBG pCO2 VBG HCO3 VBG Total CO2 VBG O2 Sat (Calc) VBG Base Excess VBG Potassium Hgb O2 Saturation Glucose 341 H Lactate 2.7 H Mechanical Rate FiO2 100.0 Tidal Volume PEEP Blood Gas Comments Status post-cardiac arrest Crit Value Called To Dr. hirsch Crit Value Called By Josie duarte temperature regulator Blood Gas Notified Time 940 Sodium 142.0 Potassium Chloride 117.0 H Carbon Dioxide Anion Gap BUN Creatinine Est GFR ( Amer) Est GFR (Non-Af Amer) POC Glucose (mg/dL) Random Glucose Calcium Phosphorus Magnesium Total Bilirubin AST ALT Alkaline Phosphatase Troponin I Total Protein Albumin Globulin Albumin/Globulin Ratio Procalcitonin Arterial Blood Potassium 3.7 Venous Blood Potassium Stool Occult Blood Negative Blood Type Antibody Screen Crossmatch BBK History Checked 11/15/18 11/15/18 11/15/18 13:40 13:40 15:00 WBC RBC Hgb 10.4 L Hct 33.2 L MCV MCH MCHC RDW Plt Count MPV Neut % (Auto) Lymph % (Auto) [place] % (Auto) Eos % (Auto) Baso % (Auto) Lymph # (Auto) [place] # (Auto) Eos # (Auto) Baso # (Auto) Absolute Neuts (auto) Neutrophils % (Manual) Lymphocytes % (Manual) Monocytes % (Manual) Basophils % (Manual) Platelet Evaluation APTT pCO2 pO2 47 HCO3 ABG pH ABG Total CO2 ABG O2 Saturation ABG O2 Content ABG Base Excess ABG Hemoglobin ABG Carboxyhemoglobin POC ABG HHb (Measured) ABG Methemoglobin ABG O2 Capacity ABG Potassium VBG pH 7.07 L* VBG pCO2 49.0 VBG HCO3 14.2 L VBG Total CO2 15.7 L VBG O2 Sat (Calc) 75.7 H VBG Base Excess -15.8 L VBG Potassium 3.7 Hgb O2 Saturation Glucose 463 H* D Lactate 2.5 H Mechanical Rate FiO2 21.0 Tidal Volume PEEP Blood Gas Comments Crit Value Called To Michelle sanchez Crit Value Called By Ab Blood Gas Notified Time 1350 Sodium 142.0 143 Potassium 3.7 Chloride 113.0 H 112 H Carbon Dioxide 16 L Anion Gap 19 BUN 27 H Creatinine 1.2 Est GFR ( Amer) > 60 Est GFR (Non-Af Amer) > 60 POC Glucose (mg/dL) Random Glucose 414 H* D Calcium 7.6 L Phosphorus 6.1 H Magnesium 1.8 Total Bilirubin 0.6 AST 85 H ALT 24 Alkaline Phosphatase 117 Troponin I Total Protein 6.8 Albumin 3.2 Globulin 3.6 Albumin/Globulin Ratio 0.9 L Procalcitonin Arterial Blood Potassium Venous Blood Potassium 3.7 Stool Occult Blood Blood Type Antibody Screen Crossmatch BBK History Checked 11/15/18 11/15/18 11/15/18 16:11 17:00 17:50 WBC RBC Hgb Hct MCV MCH MCHC RDW Plt Count MPV Neut % (Auto) Lymph % (Auto) [place] % (Auto) Eos % (Auto) Baso % (Auto) Lymph # (Auto) [place] # (Auto) Eos # (Auto) Baso # (Auto) Absolute Neuts (auto) Neutrophils % (Manual) Lymphocytes % (Manual) Monocytes % (Manual) Basophils % (Manual) Platelet Evaluation APTT pCO2 27 L pO2 153.0 H HCO3 13.3 L ABG pH 7.30 L ABG Total CO2 14.1 L ABG O2 Saturation 99.6 H ABG O2 Content ABG Base Excess -11.5 L ABG Hemoglobin ABG Carboxyhemoglobin POC ABG HHb (Measured) ABG Methemoglobin ABG O2 Capacity ABG Potassium 4.1 VBG pH VBG pCO2 VBG HCO3 VBG Total CO2 VBG O2 Sat (Calc) VBG Base Excess VBG Potassium Hgb O2 Saturation Glucose 412 H* Lactate 1.2 Mechanical Rate 25 FiO2 40.0 Tidal Volume 400 PEEP 5 Blood Gas Comments Crit Value Called To Dr. sparks Crit Value Called By Josie duarte temperature regulator Blood Gas Notified Time 1718 Sodium 140.0 Potassium Chloride 110.0 H Carbon Dioxide Anion Gap BUN Creatinine Est GFR ( Amer) Est GFR (Non-Af Amer) POC Glucose (mg/dL) 410 H* 399 H Random Glucose Calcium Phosphorus Magnesium Total Bilirubin AST ALT Alkaline Phosphatase Troponin I Total Protein Albumin Globulin Albumin/Globulin Ratio Procalcitonin Arterial Blood Potassium 4.1 Venous Blood Potassium Stool Occult Blood Blood Type Antibody Screen Crossmatch BBK History Checked 11/15/18 11/15/18 11/15/18 18:57 19:33 21:00 WBC RBC Hgb Hct MCV MCH MCHC RDW Plt Count MPV Neut % (Auto) Lymph % (Auto) [place] % (Auto) Eos % (Auto) Baso % (Auto) Lymph # (Auto) [place] # (Auto) Eos # (Auto) Baso # (Auto) Absolute Neuts (auto) Neutrophils % (Manual) Lymphocytes % (Manual) Monocytes % (Manual) Basophils % (Manual) Platelet Evaluation APTT pCO2 pO2 HCO3 ABG pH ABG Total CO2 ABG O2 Saturation ABG O2 Content ABG Base Excess ABG Hemoglobin ABG Carboxyhemoglobin POC ABG HHb (Measured) ABG Methemoglobin ABG O2 Capacity ABG Potassium VBG pH VBG pCO2 VBG HCO3 VBG Total CO2 VBG O2 Sat (Calc) VBG Base Excess VBG Potassium Hgb O2 Saturation Glucose Lactate Mechanical Rate FiO2 Tidal Volume PEEP Blood Gas Comments Crit Value Called To Crit Value Called By Blood Gas Notified Time Sodium 142 Potassium 3.3 L Chloride 114 H Carbon Dioxide 17 L Anion Gap 14 BUN 29 H Creatinine 1.2 Est GFR ( Amer) > 60 Est GFR (Non-Af Amer) > 60 POC Glucose (mg/dL) 361 H 369 H Random Glucose 294 H Calcium 7.8 L Phosphorus Magnesium Total Bilirubin AST ALT Alkaline Phosphatase Troponin I Total Protein Albumin Globulin Albumin/Globulin Ratio Procalcitonin Arterial Blood Potassium Venous Blood Potassium Stool Occult Blood Blood Type Antibody Screen Crossmatch BBK History Checked 11/15/18 11/15/18 11/15/18 21:00 21:00 21:05 WBC 15.9 H RBC 3.45 L Hgb 9.2 L Hct 29.4 L MCV 85.2 MCH 26.7 MCHC 31.3 RDW 16.3 H Plt Count 236 MPV 11.7 H Neut % (Auto) 92.6 H Lymph % (Auto) 5.1 L [place] % (Auto) 2.0 Eos % (Auto) 0.1 L Baso % (Auto) 0.2 Lymph # (Auto) 0.8 L [place] # (Auto) 0.3 Eos # (Auto) 0.0 Baso # (Auto) 0.03 Absolute Neuts (auto) 14.73 H Neutrophils % (Manual) Lymphocytes % (Manual) Monocytes % (Manual) Basophils % (Manual) Platelet Evaluation APTT pCO2 pO2 35 HCO3 ABG pH ABG Total CO2 ABG O2 Saturation ABG O2 Content ABG Base Excess ABG Hemoglobin ABG Carboxyhemoglobin POC ABG HHb (Measured) ABG Methemoglobin ABG O2 Capacity ABG Potassium VBG pH 7.23 L VBG pCO2 38.0 L VBG HCO3 15.9 L VBG Total CO2 17.1 L VBG O2 Sat (Calc) 66.6 H VBG Base Excess -10.9 L VBG Potassium 3.3 L Hgb O2 Saturation Glucose 311 H Lactate 2.3 H Mechanical Rate FiO2 21.0 Tidal Volume PEEP Blood Gas Comments Crit Value Called To Ainsley antonio Crit Value Called By Xiang Blood Gas Notified Time 2100 Sodium 143.0 Potassium Chloride 115.0 H Carbon Dioxide Anion Gap BUN Creatinine Est GFR ( Amer) Est GFR (Non-Af Amer) POC Glucose (mg/dL) 293 H Random Glucose Calcium Phosphorus Magnesium Total Bilirubin AST ALT Alkaline Phosphatase Troponin I Total Protein Albumin Globulin Albumin/Globulin Ratio Procalcitonin Arterial Blood Potassium Venous Blood Potassium 3.3 L Stool Occult Blood Blood Type Antibody Screen Crossmatch BBK History Checked 11/15/18 11/15/18 11/15/18 22:10 23:05 23:30 WBC RBC Hgb Hct MCV MCH MCHC RDW Plt Count MPV Neut % (Auto) Lymph % (Auto) [place] % (Auto) Eos % (Auto) Baso % (Auto) Lymph # (Auto) [place] # (Auto) Eos # (Auto) Baso # (Auto) Absolute Neuts (auto) Neutrophils % (Manual) Lymphocytes % (Manual) Monocytes % (Manual) Basophils % (Manual) Platelet Evaluation APTT 54.7 H pCO2 pO2 HCO3 ABG pH ABG Total CO2 ABG O2 Saturation ABG O2 Content ABG Base Excess ABG Hemoglobin ABG Carboxyhemoglobin POC ABG HHb (Measured) ABG Methemoglobin ABG O2 Capacity ABG Potassium VBG pH VBG pCO2 VBG HCO3 VBG Total CO2 VBG O2 Sat (Calc) VBG Base Excess VBG Potassium Hgb O2 Saturation Glucose Lactate Mechanical Rate FiO2 Tidal Volume PEEP Blood Gas Comments Crit Value Called To Crit Value Called By Blood Gas Notified Time Sodium Potassium Chloride Carbon Dioxide Anion Gap BUN Creatinine Est GFR ( Amer) Est GFR (Non-Af Amer) POC Glucose (mg/dL) 259 H 241 H Random Glucose Calcium Phosphorus Magnesium Total Bilirubin AST ALT Alkaline Phosphatase Troponin I Total Protein Albumin Globulin Albumin/Globulin Ratio Procalcitonin Arterial Blood Potassium Venous Blood Potassium Stool Occult Blood Blood Type Antibody Screen Crossmatch BBK History Checked 11/15/18 11/15/18 23:50 23:53 WBC 14.2 H RBC 3.62 Hgb 9.7 L Hct 30.5 L MCV 84.3 MCH 26.8 MCHC 31.8 RDW 16.1 H Plt Count 213 MPV 11.1 H Neut % (Auto) 91.0 H Lymph % (Auto) 6.1 L [place] % (Auto) 2.6 Eos % (Auto) 0.2 L Baso % (Auto) 0.1 Lymph # (Auto) 0.9 L [place] # (Auto) 0.4 Eos # (Auto) 0.0 Baso # (Auto) 0.02 Absolute Neuts (auto) 12.87 H Neutrophils % (Manual) Lymphocytes % (Manual) Monocytes % (Manual) Basophils % (Manual) Platelet Evaluation APTT pCO2 pO2 HCO3 ABG pH ABG Total CO2 ABG O2 Saturation ABG O2 Content ABG Base Excess ABG Hemoglobin ABG Carboxyhemoglobin POC ABG HHb (Measured) ABG Methemoglobin ABG O2 Capacity ABG Potassium VBG pH VBG pCO2 VBG HCO3 VBG Total CO2 VBG O2 Sat (Calc) VBG Base Excess VBG Potassium Hgb O2 Saturation Glucose Lactate Mechanical Rate FiO2 Tidal Volume PEEP Blood Gas Comments Crit Value Called To Crit Value Called By Blood Gas Notified Time Sodium Potassium Chloride Carbon Dioxide Anion Gap BUN Creatinine Est GFR ( Amer) Est GFR (Non-Af Amer) POC Glucose (mg/dL) 252 H Random Glucose Calcium Phosphorus Magnesium Total Bilirubin AST ALT Alkaline Phosphatase Troponin I Total Protein Albumin Globulin Albumin/Globulin Ratio Procalcitonin Arterial Blood Potassium Venous Blood Potassium Stool Occult Blood Blood Type Antibody Screen Crossmatch BBK History Checked Attending/Attestation - Attestation I have personally seen and examined this patient.: Yes I have fully participated in the care of the patient.: Yes I have reviewed all pertinent clinical information: Yes Notes (Text): Patient addendum to the GI consultation report dictated by the fellow. Patient was seen and evaluated earlier. Status post cardiac arrest. Significantly reduced to cardiac function. No obvious bright red blood per rectum or melena. Patient had dark stool on iron supplements. History of thrombus cytopenia. History of GI bleeding in 2017 probably secondary to diverticular. Status post transfusion follow-up of the hemoglobin. Recommend Protonix IV every 12 hourly we will reduce it to once daily if the hemoglobin remained stable Discussed with ICU resident 11/16/18 00:18 11/16/18 19:33
[2018-11-15 16:16] LABS: ALB/GLOB RATIO 0.9 (1.1-1.8); ALBUMIN 3.2 g/dL (3.0-4.8); ALT/SGPT 24 U/L (7-56); AST/SGOT 85 U/L (17-59); BLOOD UREA NITROGEN 27 mg/dL (7-21); CALCIUM 7.6 mg/dL (8.4-10.5); GFR NON-AFRICAN AMERICAN > 60
[2018-11-15] MEDS ORDERED: Dextrose 50% SYRINGE Inj (50 ml) IV PRN (16:18)
[2018-11-15] MEDS ORDERED: Heparin25000 units/250ml 1/2NS 25,000 UNITS/250 ML BAG IV SCH (16:45)
[2018-11-15 17:15] LABS: ARTERIAL BLOOD GAS HCO3 13.3 mmol/L (21-28); ARTERIAL BLOOD GAS O2 SAT 99.6 % (95-98); ARTERIAL BLOOD GAS PCO2 27 mm/Hg (35-45); ARTERIAL BLOOD GAS TCO2 14.1 mmol.L (22-28)
[2018-11-15] MEDS: Insulin Regular 100 UNITS in Sodium Chloride 0.9% 99 ML IV PRN ×3 (17:21→20:27)
[2018-11-15] MEDS ORDERED: Insulin Regular 100 UNITS in Sodium Chloride 0.9% 99 ML IV PRN (17:30)
--- NOTE | 2018-11-15 18:57 | CON ---
DATE OF CONSULTATION: 11/15/2018 HISTORY OF PRESENT ILLNESS: This is a 63-year-old gentleman with biventricular failure, COPD, hypertension, who was found unresponsive and possibly seizing. As per the patient's relative, she heard him yelling for help and then he was found seizing and not breathing well. When EMS arrived, he was found to be pulseless and was intubated on the field. The patient was cardioverted with rastafari of spontaneous circulation. Of note, the patient was in rehab facility recovering from septic shock and he was improving until yesterday. PAST MEDICAL HISTORY: COPD, hypertension, low platelet count, diabetes, CHF, hyperlipidemia. FAMILY HISTORY: Noncontributory. SOCIAL HISTORY: The patient is an active smoker. No alcohol or illicit drug abuse. HOME MEDICATIONS: Metformin, digoxin, Promacta, Pepcid, Feosol, metoprolol, Januvia, Cardizem. ALLERGIES: NKDA. PHYSICAL EXAMINATION: GENERAL: The patient is seen and examined at bedside. He is off of any sedation; however, he is not responding to touch, painful or verbal stimuli. VITAL SIGNS: He received 2 units of blood, however responded with hemoglobin level from 7.9 to 8.4. The patient is on Protonix drip empirically, however did not have any melena and we will probably taper it down to 40 mg IV b.i.d. He is on PRVC 400/14/5/40%. On that setting, his heart rate 110, oxygen saturation 100%, blood pressure 114/61, temperature 99.5. He is breathing 34 times per minute. ENT: Head and neck atraumatic. The patient is intubated. LUNGS: Clear to auscultation bilaterally. HEART: Irregular rate and rhythm. S1, S2 distant. ABDOMEN: Soft, nontender, nondistended. MUSCULOSKELETAL: No C/C/E. NEURO: The patient was not seen moving any of his extremities. Besides, the patient is not responsive to painful or verbal touch stimuli. SKIN: Moist. LABORATORY DATA: WBC 14.1, hemoglobin 8.7, platelet count 188,000. Sodium 143, potassium 4, chloride 113, carbon dioxide 18, BUN 27, creatinine 1.2, glucose 276, AST 89, ALT 21, total bilirubin 0.5, proBNP 22,500, troponin 24.40. Chest x-ray showed no active pulmonary disease. Endotracheal tube is in correct position. MEDICATIONS: Doxycycline, hydralazine 25 mg p.o. 4 times a day, isosorbide mononitrate, metoprolol, Zofran p.r.n., Protonix drip, normal saline (will hold vancomycin, Zosyn). ASSESSMENT AND PLAN: This is a 63-year-old gentleman who presented with cardiac arrest due to shockable rhythm and who was cardioverted/defibrillated with regaining of spontaneous circulation after instituting ACLS protocol. The patient was questionably seizing prior to losing his pulse. The patient is known to have severe biventricular failure and COPD. He was also found to have urinalysis positive for leukocyte esterase and bacteria. At present time, we will proceed with hemodynamic, ventilatory support, heart rate control, afterload reduction, maintain hemoglobin above 9 as the patient has substantial troponin leak and most likely his episode relates to primary coronary event. Cardiology followup, echocardiogram and EEG will be done. The patient will be on Keppra 1 g IV every 12 hours. Neurology consult will be requested. Septic workup will be initiated. The patient is already on broad-spectrum antibiotics and ID service is following him. Procalcitonin, blood culture, urine culture will be ordered as well. Neuro: The patient is not responding to painful or verbal stimuli. It might be residual effect of sedation that he received upon admission, however even prior to that he was not moving purposefully, thus we will proceed with therapeutic hypothermia as benefits are outweighing risks He is not on any sedation now and we will proceed with maintaining his T 33-36C for 24 hrs, with subsequent slow rewarming after that Pulmonary: The patient does not have overt pulmonary edema. He is not requiring high FiO2 supplementation. I will proceed with low to intermediate tidal volume ventilation maintaining plateau pressure less than 25 cm of water. We will continue with head of bed elevated >35 degrees, oral hygiene, the rest of the VAP bundle. We will continue with conservative fluid and oxygen management. We will continue with daily sedation vacation and weaning trials, once TH completed. Cardiovascular: The patient has severe biventricular failure. He is, however, hemodynamically stable. We will proceed with beta-blockers, statins, aspirin hydralazine/isosorbide mononitrate for afterload reduction, maintaining conservative fluid management to avoid the right ventricle overload. We will maintain hemoglobin above 9. Will start TAC with heparin, as GI service does not think patient has GI bleed. cont serial CBC ID: The patient does have urinary tract infection, has some leukocytosis. Spoke with Dr. Saxena-->likely cath in am I do not believe distributive pathophysiology due to sepsis plays a significant role in the patient's presentation; however, I would agree, however with empiric antibiotics and septic workup at present time, as urine is positive for LE and patient is undergoing TH. GI: The patient will be n.p.o. and on GI prophylaxis. GI service does not think patient has GI bleed. will switch to GI prophylaxis from protonix drip Endocrine: We will maintain euglycemia for additional neuroprotection. We will avoid hypoglycemia. Accu-Chek will be every 1 hr and insulin drip. TH may cause temproary insulin resistance Renal: The patient has acute kidney injury, most likely multifactorial with cardiorenal syndrome, ATN due to sepsis probably playing some role in it. We will continue with conservative fluid management to avoid very positive fluid balance. We will try to avoid hyperchloremia and maintain euvolemic and euglycemia. Addendum: patient went into another episode of cardiac arrest due to VT/torsades (prior to TH), ACLS, instituted, magnesium given, patient regained spont circ shortly, amiodarone drip was started, patient is in sinus rhythm. Addendum: started shivering, which was immediately controlled with propofol and nimbex. HR down to 60, amiodarone stopped, metoprolol via NGT continued, BP stable ccm time 40 min Blake Casanova MD [facility]
[2018-11-15 21:05] LABS: BASO # 0.03 K/mm3 (0.0-2.0); BASO % 0.2 % (0.0-3.0); EOS % 0.1 % (1.5-5.0); HEMOGLOBIN 9.2 g/dL (14.0-18.0); LYMPH # 0.8 (1.2-3.4); LYMPH % 5.1 % (22.0-35.0); MEAN CELL VOLUME 85.2 fl (80.0-105.0); MEAN CORPUSCULAR HEMOGLOBIN 26.7 pg (25.0-35.0); MEAN CORPUSCULAR HGB CONC 31.3 g/dl (31.0-37.0); MEAN PLATELET VOLUME 11.7 fl (7.0-11.0); MONO # 0.3 (0.1-0.6); RBC 3.45 10^6/uL (3.5-6.1); RED CELL DISTRIBUTION WIDTH 16.3 % (11.5-14.5); WHITE BLOOD COUNT 15.9 10^3/uL (4.5-11.0)
[2018-11-15 21:12] LABS: VENOUS BLOOD GAS BASE EXCESS -10.9 mmol/L (0.0-2.0); VENOUS BLOOD GAS PO2 35 mm/Hg (30-55); VENOUS BLOOD PH 7.23 (7.32-7.43)
[2018-11-15 21:26] LABS: BLOOD UREA NITROGEN 29 mg/dL (7-21); CALCIUM 7.8 mg/dL (8.4-10.5); GFR NON-AFRICAN AMERICAN > 60
[2018-11-15] MEDS ORDERED: WATER IV ONE (22:10)
[2018-11-15] MEDS ORDERED: DEXTROSE 5% IV ONE (22:10)
[2018-11-15] MEDS ORDERED: ACETYLCYSTEINE IV ONE (22:10)
--- NOTE | 2018-11-15 22:16 | CON ---
DATE: 11/15/2018 CARDIOLOGY CONSULTATION REASON FOR CONSULTATION: Cardiac arrest. HISTORY OF PRESENT ILLNESS: The history was obtained from the patient's and son's. The patient is a 63 years old male who was admitted because of cardiac arrest, reported VFib and AFib, required defibrillation. There are no rhythm strips available for evaluation from the time of his arrest in the field. According to the , the patient was admitted in 06/2018, with sepsis and from there transferred to rehab facility in [place] with tracheostomy, gastrostomy feeding tube, and indwelling Ash catheter. Both gastrostomy and tracheostomy were removed recently and the patient was discharged home on night; however, he was so weak and able to ambulate with a walker with big assistance, and according to the , the patient was kind of pushed out from the rehab center after staying a couple of months. The patient was noted to be asking for help and was short of breath. EMS promptly arrived and according to the medical team, the patient was reported in ventricular fibrillation, which required defibrillation and was given intravenous amiodarone subsequently in ICU and about one hour ago, the patient had a witnessed cardiac arrest with torsades de pointes, the patient required defibrillation and was started on amiodarone drip as well as magnesium sulfate replacement. The patient was hypotensive on Levophed last night, but Levophed was discontinued early this morning. According to the , the patient in late June was found to have a very weak heart, but he was not a candidate for any invasive cardiac workup at that time. SOCIAL HISTORY: The patient is a former smoker. 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 CURRENT MEDICATIONS: Hydralazine 25 mg q.i.d., digoxin 0.125 mg daily, doxycycline 100 mg intravenous q.12 hours, Keppra infusion at 100 mL every 12 hours, Lipitor 40 mg once a day, Lopressor 25 mg twice a day, amiodarone infusion, Protonix 40 mg daily intravenously q.5 hours, vancomycin 1 g intravenously daily, Zofran 4 mg intravenously every 6 hours p.r.n., and finally Zosyn 3.375 g intravenously q.12 hours. REVIEW OF SYMPTOMS: According to the , the patient has no history of stroke or seizures. PHYSICAL EXAMINATION: GENERAL: The patient is a middle-aged male, who is unresponsive, on a ventilator. VITAL SIGNS: Blood pressure 115/61, heart rate 98, temperature 99.7, respirations 31. HEENT: Pale conjunctivae. CHEST: Diffuse bilateral rhonchi. HEART: S1, S2 regular. EXTREMITIES: 1+ pitting edema. LABORATORY DATA: A chest x-ray could not be accessed on medical database; however, official report moderate cardiomegaly and pulmonary venous congestion. Head CT scan without contrast, no acute intracranial abnormality, chronic lacunar infarct in the right dennison radiata and basal ganglia. Mild chronic microangiopathic changes and mild age-related global parenchymal volume loss. Brain MRI dating back to early 07/2018, no acute intracranial findings. Today's hemoglobin and hematocrit 8.7 and 27.9, white count 14.1, platelet count 188,000. Today's SMA-7; sodium 143, potassium 4.0, chloride 113, CO2 18, glucose 276, BUN 27, creatinine 1.2. Troponins today 25.4 and 24.4. Admitting troponin was 25.8. Digoxin level is 0.9. Stool occult blood is negative. Today's EKG revealed sinus tachycardia with APCs and PVCs, bifascicular block i.e. right bundle-branch block with left anterior fascicular block. Echocardiography dating back to 07/03, revealed mild dilated left ventricle with severely impaired systolic function, akinetic septum, mildly dilated with severe hypokinetic right ventricle, moderate pulmonary hypertension. Magnesium level today is 1.5. ASSESSMENT: 1. Acute zxy-GQ-orbbcclvy myocardial infarction. 2. Ventricular fibrillation in the field with torsades de pointes in the ICU, status post defibrillation each time. 3. Hypomagnesemia. 4. Rule out anoxic encephalopathy. 5. Rule out underlying sepsis. 6. Rule out seizure activity. RECOMMENDATION: Continue current amiodarone drip. Discontinue digoxin. Continue Lipitor 40 mg daily, Lopressor 25 mg twice a day, IV vancomycin, and IV Zosyn. Obtain a followup magnesium level. Start therapeutic subcutaneous Lovenox if the patient is cleared from the GI point of view; however, the overall prognosis is grave and family signed "Do Not Resuscitate" order. Papo Chao MD [facility] # [id number]
[2018-11-15 23:57] LABS: BASO # 0.02 K/mm3 (0.0-2.0); BASO % 0.1 % (0.0-3.0); EOS % 0.2 % (1.5-5.0); HEMOGLOBIN 9.7 g/dL (14.0-18.0); LYMPH # 0.9 (1.2-3.4); LYMPH % 6.1 % (22.0-35.0); MEAN CELL VOLUME 84.3 fl (80.0-105.0); MEAN CORPUSCULAR HEMOGLOBIN 26.8 pg (25.0-35.0); MEAN CORPUSCULAR HGB CONC 31.8 g/dl (31.0-37.0); MEAN PLATELET VOLUME 11.1 fl (7.0-11.0); MONO # 0.4 (0.1-0.6); MONO % 2.6 % (1.0-6.0); RBC 3.62 10^6/uL (3.5-6.1); RED CELL DISTRIBUTION WIDTH 16.1 % (11.5-14.5); WHITE BLOOD COUNT 14.2 10^3/uL (4.5-11.0)
--- NOTE | 2018-11-16 00:55 | HP ---
DATE OF EXAM: 11/15/2018 The patient is a 63-year-old white male who is in room 128, bed 9. HISTORY OF PRESENT ILLNESS The patient apparently yelled out for help while at home when the came in brushing in, she found the patient to be unresponsive. She then called Stevie and her son. They performed CPR and they initially found the patient to be in ventricular tachycardia. They administered him amiodarone and shocked him x1 as well as epinephrine. He was also given sedation with Versed because he was moving post intubation. PAST MEDICAL HISTORY: Remarkable for allergic reaction, symptomatic anemia, congestive heart failure, acute hypoxemic respiratory failure, ventricular tachycardia, GI bleed and diabetes mellitus. FAMILY HISTORY: Noncontributory. SOCIAL HISTORY: The patient is a former smoker and imbibes alcohol socially. ALLERGIES: NUTS AND FRUITS. PHYSICAL EXAMINATION: VITAL SIGNS: Temperature of 99.9, pulse rate of 91, O2 saturation of 100 and that is the patient being intubated. GENERAL: On physical examination, the patient is intubated, unresponsive with a nasogastric tube in place. HEENT: PERRLA, EOMI. No icterus present. NECK: Supple. There are no adenopathies or bruits present. LUNGS: Clear to auscultation and percussion bilaterally. HEART: With regular rate and rhythm. No murmurs, rubs or gallops. ABDOMEN: Soft. It is nontender. Bowel sounds are normoactive. EXTREMITIES: Show no deformities or edema. NEUROLOGICAL: The patient is responsive only to painful stimuli. Of note, the patient is currently sedated. LABORATORY VALUES: WBC of 14.1 which is down from 19.1. There is a shift to the left. Chemistry; chloride of 113, BUN and creatinine of 27 and 1.2. Random glucose of 276. Troponins were 24.4 and a BNP of 22,500. Urinalysis is compatible with urinary tract infection. IMPRESSION: At this time; 1. Cardiopulmonary arrest. 2. Ventricular tachycardia. 3. Anemia. 4. Sepsis, most probably urinary sepsis. 5. Septic shock. PLAN: The patient will be kept on intubation. Antibiotics have been given prophylactically. Cultures are pending. Neurologic and Infectious Disease consults are pending, and we will continue this management and make adjustments as per consultants and the lab results. Cipriano Martinez MD [facility] # [id number]
[2018-11-16 01:54] LABS: VENOUS BLOOD GAS BASE EXCESS -10.3 mmol/L (0.0-2.0); VENOUS BLOOD GAS PO2 43 mm/Hg (30-55); VENOUS BLOOD PH 7.25 (7.32-7.43)
--- NOTE | 2018-11-16 02:13 | CON ---
DATE: 11/15/2018 REASON FOR CONSULTATION: Cardiac arrest, chronic kidney disease stage 3, noninsulin-dependent diabetes mellitus, recent acute kidney injury. HISTORY OF PRESENT ILLNESS: This is a 63-year-old male, known to me from prior evaluations. The patient was last seen in July when he was admitted to [facility] with severe sepsis, acute kidney injury, respiratory failure, acute respiratory distress syndrome, critical illness polyneuropathy. The patient was sent to [facility] on 07/30/2018. He was brought back yesterday because he was found unresponsive and possibly seizing at home. As per the who was currently in the room with him in the ICU, the patient was recently discharged from [facility] one week ago. He was ambulatory, alert and oriented, back to baseline mental status. He had a tracheostomy that was reversed. He had a PEG placed, which was also reversed. Yesterday, he was found unresponsive. EMS found him pulseless when EMS arrived. The patient was intubated in the field. He was given amiodarone, he was shocked, he was also given EpiPen. The patient is currently in the ICU. Working diagnosis of septic shock/seizure disorder/cardiac arrest/gastrointestinal bleed. The patient received 2 liters of IV fluids in the emergency room. He was found to have a dark bowel movement, which was guaiac positive. As per the , the patient was having dark stools at home for a couple of days. His initial vitals showed a blood pressure of 108/56, which dropped further to 85/54. His initial hemoglobin was 9.1, which dropped to 7.8. His initial troponin was 25.8. PHYSICAL EXAMINATION GENERAL: Elderly male lying in bed in the intensive care unit, currently undergoing video EEG, elective hypothermia, on mechanical ventilation. VITAL SIGNS: Blood pressure is 93/52, heart rate is 68, respiratory rate of 18-20 and temperature of 99.7., T.max is 100.4. HEENT: Normocephalic, atraumatic and positive pallor. Pupils nonreactive to light. NECK: Supple, no JVD. LUNGS: Bilaterally equal air entry, bilateral rhonchi. Equal expansion. CARDIAC: S1 and S2. Regular rate and rhythm, no murmur, no rubs. ABDOMEN: Distended, soft, nontender, bowel sounds present. EXTREMITIES: No lower extremity edema. INTAKE AND OUTPUT: 1780/910. LABORATORY DATA: WBC of 14, hemoglobin of 8.7, hematocrit of 28 and platelets of 188. Sodium 143, potassium of 3.7, chloride of 112, CO2 of 16, BUN of 27, creatinine of 1.2, glucose of 414, calcium 7.6, phosphorus of 6.1, magnesium of 1.8 and albumin of 3.2. Urinalysis; yellow, slightly cloudy, pH of 6.0, specific gravity of 1010, protein of 30, blood trace slight, leukocyte esterase large, RBC is 1-3, WBCs too numerous to count negative. Digoxin of 0.9. Influenza negative. PH 7.3, pCO2 of 28, and pO2 of 284. CT of the head, no acute intracranial abnormality, chronic lacunar infarct in the right dennison radiata and basal ganglia, mild chronic mitral angiopathy. CURRENT MEDICATIONS: Cisatracurium 0.5 mcg/kg/minute, Diprivan 5 mcg/kg/minute, doxycycline 100 mg every 12 hours, Keppra 1000 mg every 12 hours, Lipitor, amiodarone 1 mg per minute, Protonix, normal saline at 100, vancomycin 1 g daily, Zosyn 3.37 g every 12 hours and Cardizem 5 mg IV push given this morning. ASSESSMENT: 1. Cardiac arrest, acute myocardial infarction. 2. Respiratory failure. 3. Severe acidosis. 4. Acute anemia. 5. Noninsulin-dependent diabetes mellitus. 6. Hypertension. 7. Recent acute kidney injury, underlying chronic kidney disease stage 3. 8. Hyperphosphatemia, likely secondary to acute kidney injury and chronic kidney disease. 9. Recent episode of critical illness polyneuropathy. PLAN: 1. Continue supportive care. 2. Continue empiric antibiotics, likely source is urine. 3. Monitor hemoglobin and hematocrit closely. 4. Continue IV fluids. 5. Critically ill. Case discussed with at bedside, case discussed with nursing staff, more than 35 minutes spent in the care of this critically ill patient. Bobbi Sullivan MD [facility] # [id number]
[2018-11-16 06:05] LABS: BASO # 0.03 K/mm3 (0.0-2.0); BASO % 0.2 % (0.0-3.0); EOS # 0.1 (0.0-0.7); EOS % 0.6 % (1.5-5.0); HEMOGLOBIN 9.7 g/dL (14.0-18.0); LYMPH # 0.8 (1.2-3.4); LYMPH % 6.6 % (22.0-35.0); MEAN CORPUSCULAR HEMOGLOBIN 26.3 pg (25.0-35.0); MEAN CORPUSCULAR HGB CONC 31.3 g/dl (31.0-37.0); MEAN PLATELET VOLUME 10.9 fl (7.0-11.0); MONO # 0.2 (0.1-0.6); RBC 3.69 10^6/uL (3.5-6.1); RED CELL DISTRIBUTION WIDTH 16.2 % (11.5-14.5); WHITE BLOOD COUNT 12.2 10^3/uL (4.5-11.0)
[2018-11-16 06:50] LABS: ALB/GLOB RATIO 0.8 (1.1-1.8); ALBUMIN 2.9 g/dL (3.0-4.8); ALT/SGPT 18 U/L (7-56); AST/SGOT 66 U/L (17-59); BLOOD UREA NITROGEN 29 mg/dL (7-21); CALCIUM 7.7 mg/dL (8.4-10.5); GFR NON-AFRICAN AMERICAN > 60
[2018-11-16] MEDS ORDERED: Potassium Chloride 40 mEq/30 ml LIQ UD PO STA (07:06)
--- NOTE | 2018-11-16 07:17 | CARD ---
APPROVED REPORT Date of service: 11/14/2018 EKG Measurement Heart [id number] <Conclusion> Atrial fibrillation Right bundle branch block Left posterior fascicular block Bifascicular block Abnormal ECG
--- NOTE | 2018-11-16 07:22 | CARD ---
APPROVED REPORT Date of service: 11/15/2018 EKG Measurement Heart [id number] <Conclusion> Atrial fibrillation with rapid ventricular response Nonspecific intraventricular block T wave abnormality, consider inferolateral ischemia Abnormal ECG
--- NOTE | 2018-11-16 07:24 | CARD ---
APPROVED REPORT Date of service: 11/15/2018 EKG Measurement Heart [id number] <Conclusion> Sinus tachycardia with premature atrial complexes with aberrant conduction Possible Left atrial enlargement Right bundle branch block Left posterior fascicular block Bifascicular block Abnormal ECG
[2018-11-16 07:44] LABS: ARTERIAL BLOOD GAS HCO3 14.2 mmol/L (21-28); ARTERIAL BLOOD GAS HEMOGLOBIN 10.1 g/dL (11.7-17.4); ARTERIAL BLOOD GAS O2 CAPACITY 14.2 mL/dl (16-24); ARTERIAL BLOOD GAS O2 CONTENT 14.1 ML/dl (15-23); ARTERIAL BLOOD GAS O2 SAT 99.3 % (95-98); ARTERIAL BLOOD GAS PCO2 24 mm/Hg (35-45); ARTERIAL BLOOD GAS PH 7.38 (7.35-7.45); ARTERIAL BLOOD GAS TCO2 14.9 mmol.L (22-28)
--- NOTE | 2018-11-16 08:00 | PCM.VEEG ---
Video EEG - Procedure Start Date: 11/15/18 Start Time: 10:25 End Date: 11/16/18 End Time: 07:55 Technical Summary: DATA ACQUISITION: This was a multichannel inpatient video-EEG, a minimum of 22 channels were uti lized, performed in accordance with recommendations specified by the [place] [employer] (Zaida Moore et al. ACNS Guideline 1: Minimum Technical Requirements for Performing Clinical Electroencephalography. Journal of Clinical Neurophysiology 2016;33:303-7). The 10-20 electrode placement system was utilized in accordance with guidelines detailed by the International Federation of Clinical Neurophysiology (Michele Harrison et al. The Ten-Twenty Electrode System of the International Federation. Recommendations for the Practice of Clinical Neurophysiology: Guidelines of the International Federation of Clinical Physiology 1999; EEG Suppl. 52.). DATA REVIEW / SPIKE DETECTION / DIGITAL ANALYSIS: The entire EEG was scanned and reviewed. Synchronized audio and video recording were reviewed at the time of each alarm and whenever an abnormality or suspicious activity was noted. The entire recording was analyzed utilizing an automated digital spike and seizure analysis program and all automatic spike and seizure detections were manually reviewed. A compressed spectral array was displayed and reviewed alongside the raw EEG tracings. In addition, further analysis of the EEG was performed when abnormalities were identified, including montage changes, dipole source localization, and frequency band identification. Video portion of the study is necessary to correlate abnormal EEG activity with clinical behavior. This study was attended 24 hours per day. - Interpretation Description of the study: Indication; Status epilepticus following cardiac arrest. EEG Finding during wakefulness: During the entire study was not discernible awake EEG background, the EEG showed marked diffuse bilateral attenuation with frequencies in the 4 to 5 Hz. On the first several hours there was significant muscle artifact that went away later on the day. When he was stimulated there was no clear reactivity. There was intermittent bifrontal rhythmic delta slowing at 3 to 4 Hz lasting 3 to 6 seconds EEG Finding during sleep: Normal sleep architecture was not seen, Interictal non-epileptiform abnormalities: None Interictal epileptiform abnormalities: None Ictal epileptiform abnormalities: None - Impression Impression: This is an abnormal video EEG, monitoring study, due to the presence of: 1- Severe background slowing/attenuation . No seizures Not in status epilepticus INTERPRETATION: The above mentioned findings are in keeping with a sever non specific diffuse disturbance of cortical activity. This is in keeping with a diffuse hernandez matter dysfunction. The findings do not suggest a specific etiology.
--- NOTE | 2018-11-16 08:31 | CP.PCM.PN ---
<Tramaine Ray - Last Filed: 11/16/18 16:35> Subjective - Date & Time of Evaluation Date of Evaluation: 11/16/18 Time of Evaluation: 11:25 - Subjective Subjective: Tramaine Ray Internal Medicine Resident- Progress Note on Behalf of Dr. Hardy Subjective: Patient seen and examined at bedside. No acute overnight events. Further subjective data cannot be ascertained at this time due to patients altered m ental status (on sedation). 12-point review of systems cannot be ascertained at this time due to altered mental status Physical Examination: - Constitutional Appears: Chronically Ill Additional comments: intubated, on vent - Head Exam Head Exam: ATRAUMATIC Additional comments: wearing EEG leads - ENT Exam ENT Exam: Mucous Membranes Dry. absent: Mucous Membranes Moist - Respiratory Exam Additional comments: CTA anteriorly, symmetric expansion - Cardiovascular Exam Cardiovascular Exam: REGULAR RHYTHM, RRR - GI/Abdominal Exam GI & Abdominal Exam: Normal Bowel Sounds, Soft. absent: Diminished Bowel Sounds, Firm, Organomegaly, Rigid - Extremities Exam Extremities exam: Positive for: normal inspection. Negative for: pedal edema - Neurological Exam Neurological exam: Altered Additional comments: sedated on vent - Skin Skin Exam: Normal Color, Warm Assessment and Plan: Patient is a 63-year-old white male with a past medical history of biventricular CHF, atrial fibrillation, diabetes type 2, hypertension, GERD, ITP (on TPO agonist), pseudogout, anxiety, COPD, CKD who was admitted for evaluation and treatment s/p cardiac arrest in the field. GI consulted for anemia/possible GI bleed - Chronic normocytic anemia:hemoglobin near baseline. . Hemoglobin nearly appropriately responded after 3 units from 7s to 10s. Do not suspect anemia/GI bleed as a cause of cardiac arrest - cardiac arrest: Suspect related to underlying arrhythmia in the setting of CHF with last echo in June 2018 with severe CHF. No AICD in place. - keep NPO - continue PPI drip @ 8mg/hr - monitor hemoglobin - cardiac workup Patient case discussed with and plan approved by attending physician, Dr. Hardy. Objective - Vital Signs/Intake and Output Vital Signs (last 24 hours): Temp Pulse Resp BP Pulse Ox 92.3 F L 47 L 31 H 109/71 100 11/16/18 06:00 11/16/18 07:50 11/15/18 08:27 11/16/18 07:45 11/16/18 07:50 Intake and Output: 11/16/18 11/16/18 06:59 18:59 Intake Total 150 177 Balance 150 177 - Medications Medications: Current Medications Aspirin (Aspirin Chewable) 81 mg PO DAILY [facility] Last Admin: 11/15/18 17:29 Dose: 81 mg Atorvastatin Calcium (Lipitor) 80 mg PO DIN [facility] Last Admin: 11/15/18 17:29 Dose: 80 mg Dextrose (Dextrose 50% Inj) 0 ml IV STAT PRN; Protocol PRN Reason: Hypoglycemia Protocol Hydralazine HCl (Apresoline) 25 mg PO QID [facility] Last Admin: 11/15/18 23:21 Dose: Not Given NOREPINEPHRINE BIT/0.9 % NACL (Levophed 4 Mg/ 250 Ml Ns Premixed) 4 mg in 250 mls @ 15 mls/hr IV .[id number] PRN; Protocol PRN Reason: TITRATE PER MD ORDER Last Titration: 11/14/18 23:11 Dose: 0 mcg/min, 0 mls/hr Sodium Chloride (Sodium Chloride 0.9%) 1,000 mls @ 100 mls/hr IV .Q10H JHON Last Admin: 11/15/18 06:00 Dose: 100 mls/hr Piperacillin Sod/Tazobactam Sod (Zosyn 3.375 In Ns 100ml) 100 mls @ 25 mls/hr IVPB Q12 JHON; Protocol Stop: 11/23/18 22:01 Last Admin: 11/15/18 23:00 Dose: 25 mls/hr Vancomycin HCl (Vancomycin 1gm) 1 gm in 250 mls @ 167 mls/hr IVPB DAILY JHON; Protocol Stop: 11/23/18 10:01 Last Admin: 11/15/18 10:19 Dose: 167 mls/hr Doxycycline Hyclate 100 mg/ (Sodium Chloride) 100 mls @ 100 mls/hr IVPB Q12 JHON; Protocol Stop: 11/22/18 22:01 Last Admin: 11/15/18 22:00 Dose: 100 mls/hr Levetiracetam (Keppra 1000mg/100ml Ns) 100 mls @ 460 mls/hr IV Q12 JHON Last Admin: 11/15/18 22:00 Dose: 460 mls/hr Cisatracurium Besylate 200 mg/ (Sodium Chloride) 270 mls @ 6.8 mls/hr IV .Q24H PRN; Protocol PRN Reason: TITRATE PER MD ORDER Last Titration: 11/16/18 06:00 Dose: 2 mcg/kg/min, 13.59 mls/hr Propofol (Diprivan) 1,000 mg in 100 mls @ 2.517 mls/hr IV .Q24H PRN; Protocol PRN Reason: TITRATE PER MD ORDER Last Admin: 11/15/18 12:30 Dose: 5 mcg/kg/min, 2.517 mls/hr Dextrose (Dextrose 5% In Water 1000 Ml) 1,000 mls @ 0 mls/hr IV .Q0M PRN; Protocol PRN Reason: Hypoglycemia Protocol Heparin Sodium/Sodium Chloride (Heparin 87782 Units/250ml 1/2 Normal Saline) 25,000 units in 250 mls @ 10.07 mls/hr IV .Q24H JHON; Protocol Last Titration: 11/16/18 07:30 Dose: 14 units/kg/hr, 11.748 mls/hr Insulin Human Regular 100 (units/ Sodium Chloride) 100 mls @ 3 mls/hr IV .Q24H PRN; Protocol PRN Reason: TITRATE PER MD ORDER Last Titration: 11/16/18 07:00 Dose: 2 units/hr, 2 mls/hr Isosorbide Mononitrate (Imdur Er) 30 mg PO DAILY [facility] Last Admin: 11/15/18 17:19 Dose: Not Given Metoprolol Tartrate (Lopressor) 25 mg PO BID [facility] Last Admin: 11/15/18 17:35 Dose: 25 mg Ondansetron HCl (Zofran Inj) 4 mg IVP Q6H PRN PRN Reason: Nausea/Vomiting Last Admin: 11/15/18 05:03 Dose: 4 mg Pantoprazole Sodium (Protonix Inj) 40 mg IVP Q12 JHON Last Admin: 11/15/18 23:37 Dose: 40 mg - Labs Labs: 11/16/18 05:30 11/16/18 05:30 PT 14.4 SECONDS (9.4-12.5) H 11/14/18 18:19 INR 1.30 11/14/18 18:19 APTT 43.8 Seconds (26.9-38.3) H 11/16/18 05:30 <Hayley,Kovil V - Last Filed: 11/16/18 19:31> Objective - Vital Signs/Intake and Output Vital Signs (last 24 hours): Temp Pulse Resp BP Pulse Ox 96.8 F L 88 31 H 102/46 L 98 11/16/18 18:20 11/16/18 19:00 11/16/18 18:15 11/16/18 18:15 11/16/18 18:20 Intake and Output: 11/16/18 11/17/18 18:59 06:59 Intake Total 961 Output Total 350 Balance 611 - Medications Medications: Current Medications Amiodarone HCl (Cordarone) 400 mg PO BRKDIN [facility] Last Admin: 11/16/18 17:23 Dose: 400 mg Aspirin (Aspirin Chewable) 81 mg PO DAILY [facility] Last Admin: 11/16/18 09:05 Dose: 81 mg Atorvastatin Calcium (Lipitor) 40 mg PO DIN [facility] Last Admin: 11/16/18 17:23 Dose: 40 mg Clopidogrel Bisulfate (Plavix) 75 mg PO DAILY [facility] Dextrose (Dextrose 50% Inj) 0 ml IV STAT PRN; Protocol PRN Reason: Hypoglycemia Protocol Hydralazine HCl (Apresoline) 25 mg PO QID [facility] Last Admin: 11/16/18 17:21 Dose: Not Given Sodium Chloride (Sodium Chloride 0.9%) 1,000 mls @ 100 mls/hr IV .Q10H [facility] Last Admin: 11/15/18 06:00 Dose: 100 mls/hr Cisatracurium Besylate 200 mg/ (Sodium Chloride) 270 mls @ 6.8 mls/hr IV .Q24H PRN; Protocol PRN Reason: TITRATE PER MD ORDER Last Titration: 11/16/18 15:15 Dose: 0 mcg/kg/min, 0 mls/hr Propofol (Diprivan) 1,000 mg in 100 mls @ 2.517 mls/hr IV .Q24H PRN; Protocol PRN Reason: TITRATE PER MD ORDER Last Titration: 11/16/18 17:00 Dose: 0 mcg/kg/min, 0 mls/hr Heparin Sodium/Sodium Chloride (Heparin 75619 Units/250ml 1/2 Normal Saline) 25,000 units in 250 mls @ 10.427 mls/hr IV .[id number] [facility]; Protocol Last Admin: 11/16/18 15:00 Dose: 12 units/kg/hr, 10.427 mls/hr Eptifibatide (Integrilin) 75 mg in 100 mls @ 13.903 mls/hr IV .Q7H12M [facility]; Protocol Last Admin: 11/16/18 18:38 Dose: 13.903 mls/hr Cefepime HCl (Maxipime 1gm) 1 gm in 100 mls @ 100 mls/hr IVPB Q12 JHON; Protocol Dexmedetomidine HCl (Precedex 400mcg/100ml) 400 mcg in 100 mls @ 4.345 mls/hr IV .Q23H1M PRN; Protocol PRN Reason: Agitation Insulin Human Regular (Humulin R Med) 0 units SC ACHS [facility]; Protocol Metoprolol Tartrate (Lopressor) 25 mg PO BID [facility] Last Admin: 11/16/18 17:25 Dose: Not Given Ondansetron HCl (Zofran Inj) 4 mg IVP Q6H PRN PRN Reason: Nausea/Vomiting Last Admin: 11/15/18 05:03 Dose: 4 mg Thiamine HCl (Vitamin B1 Tab) 300 mg NG DAILY [facility] Last Admin: 11/16/18 17:24 Dose: 300 mg - Labs Labs: 11/16/18 05:30 11/16/18 05:30 PT 14.4 SECONDS (9.4-12.5) H 11/14/18 18:19 INR 1.30 11/14/18 18:19 APTT 43.8 Seconds (26.9-38.3) H 11/16/18 05:30 Attending/Attestation - Attestation I have personally seen and examined this patient.: Yes I have fully participated in the care of the patient.: Yes I have reviewed all pertinent clinical information, including history, physical exam and plan: Yes Notes (Text): This patient was seen and evaluated along with the resident team earlier today.This is an addendum to the GI progress note dictated by the resident. Hemoglobin remained stable. No obvious bleeding per rectum or melena. We will change the Protonix drip to Protonix 40 mg every 12 hourly. Status post cardiac arrest. History of significantly reduced cardiac function. History of GI bleeding in the past probably diverticular in 2017. History of thrombocytopenia improved. 11/16/18 19:29
--- NOTE | 2018-11-16 08:48 | CP.CCUPN ---
<Ismael Turner - Last Filed: 11/16/18 12:11> CCU Subjective - Physician Review Subjective (Free Text): Patient seen and evaluated at bedside. No acute events reported overnight. Currently GCS 3T, intubated, currently sedated on Nimbex and Propofol. Patient does not currently respond to painful stimuli. Video EEG in progress. Further ROS unable to be obtained due to clinical condition. Currently on code freeze. CCU Objective - Vital Signs / Intake & Output Vital Signs (Last 4 hours): Vital Signs Temp Pulse BP Pulse Ox 11/16/18 07:50 47 L 100 11/16/18 07:45 45 L 109/71 100 11/16/18 07:40 45 L 100 11/16/18 07:30 44 L 110/66 100 11/16/18 07:20 46 L 100 11/16/18 07:15 48 L 110/72 100 11/16/18 07:10 47 L 100 11/16/18 07:00 53 L 106/68 100 11/16/18 06:50 59 L 100 11/16/18 06:45 62 108/70 100 11/16/18 06:40 63 100 11/16/18 06:30 66 109/73 100 11/16/18 06:20 70 11/16/18 06:15 69 111/65 11/16/18 06:10 84 11/16/18 06:00 92.3 F L 69 109/71 11/16/18 05:50 68 100 11/16/18 05:45 73 105/67 98 11/16/18 05:40 72 100 11/16/18 05:30 74 104/70 97 11/16/18 05:20 75 100 11/16/18 05:15 77 102/72 82 L 11/16/18 05:10 79 83 L 11/16/18 05:00 92.5 F L 72 93/65 L 99 11/16/18 04:50 55 L 100 Intake and Output (Last 8hrs): Intake & Output 11/15/18 11/16/18 11/16/18 22:59 06:59 14:59 Intake Total 1958 27 177 Output Total 650 Balance 1308 27 177 Weight 86.891 kg Intake: IV 1673 27 177 Right Femoral 1550 Blood Product 285 Output: Urine 650 Urethral (Ash) 650 Other: # Bowel Movements 0 - Physical Exam Head: Positive for: Atraumatic, Normocephalic, Other (video EEG leads under wrapping) Pupils: Positive for: Other (2mm, reactive) Conjunctiva: Positive for: Normal Mouth: Positive for: Moist Mucous Membranes Neck: Positive for: Trachea Midline. Negative for: JVD, Lymphadenopathy Respiratory/Chest: Positive for: Clear to Auscultation, Good Air Exchange. Negative for: Respiratory Distress, Accessory Muscle Use Cardiovascular: Positive for: Normal S1, S2, Bradycardic. Negative for: Murmurs Abdomen: Positive for: Normal Bowel Sounds. Negative for: Tenderness Back: Positive for: Normal Inspection Upper Extremity: Positive for: Normal Inspection. Negative for: Cyanosis, Edema Lower Extremity: Positive for: Normal Inspection. Negative for: Edema Neurological: Positive for: Other (medically sedated and paralyzed; corneal and gag reflex present, withdraws to pain stimuli) Skin: Positive for: Warm, Dry, Pale. Negative for: Rashes Psychiatric: Negative for: Alert - Medications Active Medications: Active Medications Generic Name Dose Route Start Last Admin Trade Name Freq PRN Reason Stop Dose Admin Aspirin 81 mg 11/15/18 16:45 11/15/18 17:29 Aspirin Chewable PO 81 mg DAILY JHON Administration Atorvastatin Calcium 80 mg 11/15/18 17:00 11/15/18 17:29 Lipitor PO 80 mg DIN JHON Administration Dextrose 0 ml 11/15/18 16:18 Dextrose 50% Inj IV STAT PRN Hypoglycemia Protocol Protocol Hydralazine HCl 25 mg 11/15/18 10:00 11/15/18 23:21 Apresoline PO Not Given QID JHON NOREPINEPHRINE BIT/0.9 % NACL 4 mg in 250 mls @ 15 mls/hr 11/14/18 18:18 11/14/18 23:11 Levophed 4 Mg/ 250 Ml Ns Premixed IV 0 mcg/min .[id number] PRN 0 mls/hr TITRATE PER MD ORDER Titration Protocol 4 MCG/MIN Sodium Chloride 1,000 mls @ 100 mls/hr 11/14/18 19:00 11/15/18 06:00 Sodium Chloride 0.9% IV 100 mls/hr .Q10H JHON Administration Piperacillin Sod/Tazobactam Sod 100 mls @ 25 mls/hr 11/14/18 22:00 11/15/18 23:00 Zosyn 3.375 In Ns 100ml IVPB 11/23/18 22:01 25 mls/hr Q12 JHON Administration Protocol Vancomycin HCl 1 gm in 250 mls @ 167 mls/hr 11/15/18 10:00 11/15/18 10:19 Vancomycin 1gm IVPB 11/23/18 10:01 167 mls/hr DAILY JHON Administration Protocol Doxycycline Hyclate 100 mg/ 100 mls @ 100 mls/hr 11/14/18 22:00 11/15/18 22:00 Sodium Chloride IVPB 11/22/18 22:01 100 mls/hr Q12 JHON Administration Protocol Levetiracetam 100 mls @ 460 mls/hr 11/15/18 10:00 11/15/18 22:00 Keppra 1000mg/100ml Ns IV 460 mls/hr Q12 JHON Administration Cisatracurium Besylate 200 mg/ 270 mls @ 6.8 mls/hr 11/15/18 10:44 11/16/18 06:00 Sodium Chloride IV 2 mcg/kg/min .Q24H PRN 13.59 mls/hr TITRATE PER MD ORDER Titration Protocol 1 MCG/KG/MIN Propofol 1,000 mg in 100 mls @ 2.517 mls/hr 11/15/18 12:11 11/15/18 12:30 Diprivan IV 5 mcg/kg/min .Q24H PRN 2.517 mls/hr TITRATE PER MD ORDER Administration Protocol 5 MCG/KG/MIN Dextrose 1,000 mls @ 0 mls/hr 11/15/18 16:18 Dextrose 5% In Water 1000 Ml IV .Q0M PRN Hypoglycemia Protocol Protocol Per Protocol Heparin Sodium/Sodium Chloride 25,000 units in 250 mls @ 10.07 mls/hr 11/15/18 16:45 11/16/18 07:30 Heparin 54879 Units/250ml 1/2 Normal Saline IV 14 units/kg/hr .Q24H JHON 11.748 mls/hr Titration Protocol 12 UNITS/KG/HR Insulin Human Regular 100 100 mls @ 3 mls/hr 11/15/18 17:30 11/16/18 07:00 units/ Sodium Chloride IV 2 units/hr .Q24H PRN 2 mls/hr TITRATE PER MD ORDER Titration Protocol 3 UNITS/HR Isosorbide Mononitrate 30 mg 11/15/18 10:00 11/15/18 17:19 Imdur Er PO Not Given DAILY JHON Metoprolol Tartrate 25 mg 11/15/18 10:00 11/15/18 17:35 Lopressor PO 25 mg BID JHON Administration Ondansetron HCl 4 mg 11/15/18 04:15 11/15/18 05:03 Zofran Inj IVP 4 mg Q6H PRN Administration Nausea/Vomiting Pantoprazole Sodium 40 mg 11/15/18 22:00 11/15/18 23:37 Protonix Inj IVP 40 mg Q12 JHON Administration - Patient Studies Lab Studies: Microbiology Studies 11/14/18 18:49 Blood Culture - Preliminary Blood NO GROWTH AFTER 24 HOURS 11/14/18 18:19 Blood Culture - Preliminary Blood NO GROWTH AFTER 24 HOURS Lab Studies 11/16/18 11/16/18 11/16/18 Range/Units 07:40 07:00 06:12 WBC (4.5-11.0) 10^3/uL RBC (3.5-6.1) 10^6/uL Hgb (14.0-18.0) g/dL Hct (42.0-52.0) % MCV (80.0-105.0) fl MCH (25.0-35.0) pg MCHC (31.0-37.0) g/dl RDW (11.5-14.5) % Plt Count (120.0-450.0) 10^3/uL MPV (7.0-11.0) fl Neut % (Auto) (50.0-68.0) % Lymph % (Auto) (22.0-35.0) % [place] % (Auto) (1.0-6.0) % Eos % (Auto) (1.5-5.0) % Baso % (Auto) (0.0-3.0) % Lymph # (Auto) (1.2-3.4) [place] # (Auto) (0.1-0.6) Eos # (Auto) (0.0-0.7) Baso # (Auto) (0.0-2.0) K/mm3 Absolute Neuts (auto) (1.4-6.5) Neutrophils % (Manual) (50.0-70.0) % Lymphocytes % (Manual) (22.0-35.0) % Monocytes % (Manual) (1.0-6.0) % Basophils % (Manual) (0.0-1.0) % Platelet Evaluation (NORMAL) APTT (26.9-38.3) Seconds pCO2 24 L (35-45) mm/Hg pO2 141.0 H (80-100) mm/Hg HCO3 14.2 L (21-28) mmol/L ABG pH 7.38 (7.35-7.45) ABG Total CO2 14.9 L (22-28) mmol.L ABG O2 Saturation 99.3 H (95-98) % ABG O2 Content 14.1 L (15-23) ML/dl ABG Base Excess -9.5 L (-2.0-3.0) mmol/L ABG Hemoglobin 10.1 L (11.7-17.4) g/dL ABG Carboxyhemoglobin 1.3 (0.5-1.5) % POC ABG HHb (Measured) 0.7 (0-5) % ABG Methemoglobin 0.9 (0.0-3.0) % ABG O2 Capacity 14.2 L (16-24) mL/dl ABG Potassium (3.6-5.2) mmol/L VBG pH (7.32-7.43) VBG pCO2 (40-60) VBG HCO3 (21-28) mmol/l VBG Total CO2 (22-28) mmol.L VBG O2 Sat (Calc) (40-65) % VBG Base Excess (0.0-2.0) mmol/L VBG Potassium (3.6-5.2) mmol/L Hgb O2 Saturation 97.2 (95.0-98.0) % Sodium (132-148) mmol/L Chloride (98-107) mmol/L Glucose (75-110) mg/dl Lactate (0.7-2.1) mmol/L Mechanical Rate FiO2 40.0 % Tidal Volume PEEP Blood Gas Comments Crit Value Called To Crit Value Called By Blood Gas Notified Time Potassium (3.6-5.0) mmol/L Carbon Dioxide (21-33) mmol/L Anion Gap (10-20) BUN (7-21) mg/dL Creatinine (0.8-1.5) mg/dl Est GFR ( Amer) Est GFR (Non-Af Amer) POC Glucose (mg/dL) 150 H 146 H (65-110) mg/dL Random Glucose (70-110) mg/dL Calcium (8.4-10.5) mg/dL Phosphorus (2.5-4.5) mg/dL Magnesium (1.7-2.2) mg/dL Total Bilirubin (0.2-1.3) mg/dL AST (17-59) U/L ALT (7-56) U/L Alkaline Phosphatase (38-126) U/L Total Protein (5.8-8.3) g/dL Albumin (3.0-4.8) g/dL Globulin gm/dL Albumin/Globulin Ratio (1.1-1.8) Procalcitonin (0.19-0.49) NG/ML Arterial Blood Potassium (3.6-5.2) mmol/L Venous Blood Potassium (3.6-5.2) mmol/L Stool Occult Blood (NEGATIVE) Blood Type Antibody Screen Crossmatch BBK History Checked 11/16/18 11/16/18 11/16/18 Range/Units 05:30 05:30 05:30 WBC 12.2 H (4.5-11.0) 10^3/uL RBC 3.69 (3.5-6.1) 10^6/uL Hgb 9.7 L (14.0-18.0) g/dL Hct 31.0 L (42.0-52.0) % MCV 84.0 (80.0-105.0) fl MCH 26.3 (25.0-35.0) pg MCHC 31.3 (31.0-37.0) g/dl RDW 16.2 H (11.5-14.5) % Plt Count 214 (120.0-450.0) 10^3/uL MPV 10.9 (7.0-11.0) fl Neut % (Auto) 90.6 H (50.0-68.0) % Lymph % (Auto) 6.6 L (22.0-35.0) % [place] % (Auto) 2.0 (1.0-6.0) % Eos % (Auto) 0.6 L (1.5-5.0) % Baso % (Auto) 0.2 (0.0-3.0) % Lymph # (Auto) 0.8 L (1.2-3.4) [place] # (Auto) 0.2 (0.1-0.6) Eos # (Auto) 0.1 (0.0-0.7) Baso # (Auto) 0.03 (0.0-2.0) K/mm3 Absolute Neuts (auto) 11.06 H (1.4-6.5) Neutrophils % (Manual) (50.0-70.0) % Lymphocytes % (Manual) (22.0-35.0) % Monocytes % (Manual) (1.0-6.0) % Basophils % (Manual) (0.0-1.0) % Platelet Evaluation (NORMAL) APTT 43.8 H (26.9-38.3) Seconds pCO2 (35-45) mm/Hg pO2 (80-100) mm/Hg HCO3 (21-28) mmol/L ABG pH (7.35-7.45) ABG Total CO2 (22-28) mmol.L ABG O2 Saturation (95-98) % ABG O2 Content (15-23) ML/dl ABG Base Excess (-2.0-3.0) mmol/L ABG Hemoglobin (11.7-17.4) g/dL ABG Carboxyhemoglobin (0.5-1.5) % POC ABG HHb (Measured) (0-5) % ABG Methemoglobin (0.0-3.0) % ABG O2 Capacity (16-24) mL/dl ABG Potassium (3.6-5.2) mmol/L VBG pH (7.32-7.43) VBG pCO2 (40-60) VBG HCO3 (21-28) mmol/l VBG Total CO2 (22-28) mmol.L VBG O2 Sat (Calc) (40-65) % VBG Base Excess (0.0-2.0) mmol/L VBG Potassium (3.6-5.2) mmol/L Hgb O2 Saturation (95.0-98.0) % Sodium 144 (132-148) mmol/L Chloride 117 H (98-107) mmol/L Glucose (75-110) mg/dl Lactate (0.7-2.1) mmol/L Mechanical Rate FiO2 % Tidal Volume PEEP Blood Gas Comments Crit Value Called To Crit Value Called By Blood Gas Notified Time Potassium 3.5 L (3.6-5.0) mmol/L Carbon Dioxide 19 L (21-33) mmol/L Anion Gap 12 (10-20) BUN 29 H (7-21) mg/dL Creatinine 1.2 (0.8-1.5) mg/dl Est GFR ( Amer) > 60 Est GFR (Non-Af Amer) > 60 POC Glucose (mg/dL) (65-110) mg/dL Random Glucose 132 H (70-110) mg/dL Calcium 7.7 L (8.4-10.5) mg/dL Phosphorus 4.4 (2.5-4.5) mg/dL Magnesium 1.7 (1.7-2.2) mg/dL Total Bilirubin 0.4 (0.2-1.3) mg/dL AST 66 H D (17-59) U/L ALT 18 (7-56) U/L Alkaline Phosphatase 92 (38-126) U/L Total Protein 6.6 (5.8-8.3) g/dL Albumin 2.9 L (3.0-4.8) g/dL Globulin 3.7 gm/dL Albumin/Globulin Ratio 0.8 L (1.1-1.8) Procalcitonin (0.19-0.49) NG/ML Arterial Blood Potassium (3.6-5.2) mmol/L Venous Blood Potassium (3.6-5.2) mmol/L Stool Occult Blood (NEGATIVE) Blood Type Antibody Screen Crossmatch BBK History Checked 11/16/18 11/16/18 11/16/18 Range/Units 03:55 03:06 02:10 WBC (4.5-11.0) 10^3/uL RBC (3.5-6.1) 10^6/uL Hgb (14.0-18.0) g/dL Hct (42.0-52.0) % MCV (80.0-105.0) fl MCH (25.0-35.0) pg MCHC (31.0-37.0) g/dl RDW (11.5-14.5) % Plt Count (120.0-450.0) 10^3/uL MPV (7.0-11.0) fl Neut % (Auto) (50.0-68.0) % Lymph % (Auto) (22.0-35.0) % [place] % (Auto) (1.0-6.0) % Eos % (Auto) (1.5-5.0) % Baso % (Auto) (0.0-3.0) % Lymph # (Auto) (1.2-3.4) [place] # (Auto) (0.1-0.6) Eos # (Auto) (0.0-0.7) Baso # (Auto) (0.0-2.0) K/mm3 Absolute Neuts (auto) (1.4-6.5) Neutrophils % (Manual) (50.0-70.0) % Lymphocytes % (Manual) (22.0-35.0) % Monocytes % (Manual) (1.0-6.0) % Basophils % (Manual) (0.0-1.0) % Platelet Evaluation (NORMAL) APTT (26.9-38.3) Seconds pCO2 (35-45) mm/Hg pO2 (80-100) mm/Hg HCO3 (21-28) mmol/L ABG pH (7.35-7.45) ABG Total CO2 (22-28) mmol.L ABG O2 Saturation (95-98) % ABG O2 Content (15-23) ML/dl ABG Base Excess (-2.0-3.0) mmol/L ABG Hemoglobin (11.7-17.4) g/dL ABG Carboxyhemoglobin (0.5-1.5) % POC ABG HHb (Measured) (0-5) % ABG Methemoglobin (0.0-3.0) % ABG O2 Capacity (16-24) mL/dl ABG Potassium (3.6-5.2) mmol/L VBG pH (7.32-7.43) VBG pCO2 (40-60) VBG HCO3 (21-28) mmol/l VBG Total CO2 (22-28) mmol.L VBG O2 Sat (Calc) (40-65) % VBG Base Excess (0.0-2.0) mmol/L VBG Potassium (3.6-5.2) mmol/L Hgb O2 Saturation (95.0-98.0) % Sodium (132-148) mmol/L Chloride (98-107) mmol/L Glucose (75-110) mg/dl Lactate (0.7-2.1) mmol/L Mechanical Rate FiO2 % Tidal Volume PEEP Blood Gas Comments Crit Value Called To Crit Value Called By Blood Gas Notified Time Potassium (3.6-5.0) mmol/L Carbon Dioxide (21-33) mmol/L Anion Gap (10-20) BUN (7-21) mg/dL Creatinine (0.8-1.5) mg/dl Est GFR ( Amer) Est GFR (Non-Af Amer) POC Glucose (mg/dL) 151 H 173 H 194 H (65-110) mg/dL Random Glucose (70-110) mg/dL Calcium (8.4-10.5) mg/dL Phosphorus (2.5-4.5) mg/dL Magnesium (1.7-2.2) mg/dL Total Bilirubin (0.2-1.3) mg/dL AST (17-59) U/L ALT (7-56) U/L Alkaline Phosphatase (38-126) U/L Total Protein (5.8-8.3) g/dL Albumin (3.0-4.8) g/dL Globulin gm/dL Albumin/Globulin Ratio (1.1-1.8) Procalcitonin (0.19-0.49) NG/ML Arterial Blood Potassium (3.6-5.2) mmol/L Venous Blood Potassium (3.6-5.2) mmol/L Stool Occult Blood (NEGATIVE) Blood Type Antibody Screen Crossmatch BBK History Checked 11/16/18 11/16/18 11/15/18 Range/Units 01:45 01:02 23:53 WBC (4.5-11.0) 10^3/uL RBC (3.5-6.1) 10^6/uL Hgb (14.0-18.0) g/dL Hct (42.0-52.0) % MCV (80.0-105.0) fl MCH (25.0-35.0) pg MCHC (31.0-37.0) g/dl RDW (11.5-14.5) % Plt Count (120.0-450.0) 10^3/uL MPV (7.0-11.0) fl Neut % (Auto) (50.0-68.0) % Lymph % (Auto) (22.0-35.0) % [place] % (Auto) (1.0-6.0) % Eos % (Auto) (1.5-5.0) % Baso % (Auto) (0.0-3.0) % Lymph # (Auto) (1.2-3.4) [place] # (Auto) (0.1-0.6) Eos # (Auto) (0.0-0.7) Baso # (Auto) (0.0-2.0) K/mm3 Absolute Neuts (auto) (1.4-6.5) Neutrophils % (Manual) (50.0-70.0) % Lymphocytes % (Manual) (22.0-35.0) % Monocytes % (Manual) (1.0-6.0) % Basophils % (Manual) (0.0-1.0) % Platelet Evaluation (NORMAL) APTT (26.9-38.3) Seconds pCO2 (35-45) mm/Hg pO2 43 (80-100) mm/Hg HCO3 (21-28) mmol/L ABG pH (7.35-7.45) ABG Total CO2 (22-28) mmol.L ABG O2 Saturation (95-98) % ABG O2 Content (15-23) ML/dl ABG Base Excess (-2.0-3.0) mmol/L ABG Hemoglobin (11.7-17.4) g/dL ABG Carboxyhemoglobin (0.5-1.5) % POC ABG HHb (Measured) (0-5) % ABG Methemoglobin (0.0-3.0) % ABG O2 Capacity (16-24) mL/dl ABG Potassium (3.6-5.2) mmol/L VBG pH 7.25 L (7.32-7.43) VBG pCO2 37.0 L (40-60) VBG HCO3 16.2 L (21-28) mmol/l VBG Total CO2 17.3 L (22-28) mmol.L VBG O2 Sat (Calc) 77.8 H (40-65) % VBG Base Excess -10.3 L (0.0-2.0) mmol/L VBG Potassium 3.2 L (3.6-5.2) mmol/L Hgb O2 Saturation (95.0-98.0) % Sodium 144.0 (132-148) mmol/L Chloride 117.0 H (98-107) mmol/L Glucose 192 H (75-110) mg/dl Lactate 1.9 (0.7-2.1) mmol/L Mechanical Rate FiO2 21.0 % Tidal Volume PEEP Blood Gas Comments Crit Value Called To Crit Value Called By Blood Gas Notified Time Potassium (3.6-5.0) mmol/L Carbon Dioxide (21-33) mmol/L Anion Gap (10-20) BUN (7-21) mg/dL Creatinine (0.8-1.5) mg/dl Est GFR ( Amer) Est GFR (Non-Af Amer) POC Glucose (mg/dL) 200 H 252 H (65-110) mg/dL Random Glucose (70-110) mg/dL Calcium (8.4-10.5) mg/dL Phosphorus (2.5-4.5) mg/dL Magnesium (1.7-2.2) mg/dL Total Bilirubin (0.2-1.3) mg/dL AST (17-59) U/L ALT (7-56) U/L Alkaline Phosphatase (38-126) U/L Total Protein (5.8-8.3) g/dL Albumin (3.0-4.8) g/dL Globulin gm/dL Albumin/Globulin Ratio (1.1-1.8) Procalcitonin (0.19-0.49) NG/ML Arterial Blood Potassium (3.6-5.2) mmol/L Venous Blood Potassium 3.2 L (3.6-5.2) mmol/L Stool Occult Blood (NEGATIVE) Blood Type Antibody Screen Crossmatch BBK History Checked 11/15/18 11/15/18 11/15/18 Range/Units 23:50 23:30 23:05 WBC 14.2 H (4.5-11.0) 10^3/uL RBC 3.62 (3.5-6.1) 10^6/uL Hgb 9.7 L (14.0-18.0) g/dL Hct 30.5 L (42.0-52.0) % MCV 84.3 (80.0-105.0) fl MCH 26.8 (25.0-35.0) pg MCHC 31.8 (31.0-37.0) g/dl RDW 16.1 H (11.5-14.5) % Plt Count 213 (120.0-450.0) 10^3/uL MPV 11.1 H (7.0-11.0) fl Neut % (Auto) 91.0 H (50.0-68.0) % Lymph % (Auto) 6.1 L (22.0-35.0) % [place] % (Auto) 2.6 (1.0-6.0) % Eos % (Auto) 0.2 L (1.5-5.0) % Baso % (Auto) 0.1 (0.0-3.0) % Lymph # (Auto) 0.9 L (1.2-3.4) [place] # (Auto) 0.4 (0.1-0.6) Eos # (Auto) 0.0 (0.0-0.7) Baso # (Auto) 0.02 (0.0-2.0) K/mm3 Absolute Neuts (auto) 12.87 H (1.4-6.5) Neutrophils % (Manual) (50.0-70.0) % Lymphocytes % (Manual) (22.0-35.0) % Monocytes % (Manual) (1.0-6.0) % Basophils % (Manual) (0.0-1.0) % Platelet Evaluation (NORMAL) APTT 54.7 H (26.9-38.3) Seconds pCO2 (35-45) mm/Hg pO2 (80-100) mm/Hg HCO3 (21-28) mmol/L ABG pH (7.35-7.45) ABG Total CO2 (22-28) mmol.L ABG O2 Saturation (95-98) % ABG O2 Content (15-23) ML/dl ABG Base Excess (-2.0-3.0) mmol/L ABG Hemoglobin (11.7-17.4) g/dL ABG Carboxyhemoglobin (0.5-1.5) % POC ABG HHb (Measured) (0-5) % ABG Methemoglobin (0.0-3.0) % ABG O2 Capacity (16-24) mL/dl ABG Potassium (3.6-5.2) mmol/L VBG pH (7.32-7.43) VBG pCO2 (40-60) VBG HCO3 (21-28) mmol/l VBG Total CO2 (22-28) mmol.L VBG O2 Sat (Calc) (40-65) % VBG Base Excess (0.0-2.0) mmol/L VBG Potassium (3.6-5.2) mmol/L Hgb O2 Saturation (95.0-98.0) % Sodium (132-148) mmol/L Chloride (98-107) mmol/L Glucose (75-110) mg/dl Lactate (0.7-2.1) mmol/L Mechanical Rate FiO2 % Tidal Volume PEEP Blood Gas Comments Crit Value Called To Crit Value Called By Blood Gas Notified Time Potassium (3.6-5.0) mmol/L Carbon Dioxide (21-33) mmol/L Anion Gap (10-20) BUN (7-21) mg/dL Creatinine (0.8-1.5) mg/dl Est GFR ( Amer) Est GFR (Non-Af Amer) POC Glucose (mg/dL) 241 H (65-110) mg/dL Random Glucose (70-110) mg/dL Calcium (8.4-10.5) mg/dL Phosphorus (2.5-4.5) mg/dL Magnesium (1.7-2.2) mg/dL Total Bilirubin (0.2-1.3) mg/dL AST (17-59) U/L ALT (7-56) U/L Alkaline Phosphatase (38-126) U/L Total Protein (5.8-8.3) g/dL Albumin (3.0-4.8) g/dL Globulin gm/dL Albumin/Globulin Ratio (1.1-1.8) Procalcitonin (0.19-0.49) NG/ML Arterial Blood Potassium (3.6-5.2) mmol/L Venous Blood Potassium (3.6-5.2) mmol/L Stool Occult Blood (NEGATIVE) Blood Type Antibody Screen Crossmatch BBK History Checked 11/15/18 11/15/18 11/15/18 Range/Units 22:10 21:05 21:00 WBC 15.9 H (4.5-11.0) 10^3/uL RBC 3.45 L (3.5-6.1) 10^6/uL Hgb 9.2 L (14.0-18.0) g/dL Hct 29.4 L (42.0-52.0) % MCV 85.2 (80.0-105.0) fl MCH 26.7 (25.0-35.0) pg MCHC 31.3 (31.0-37.0) g/dl RDW 16.3 H (11.5-14.5) % Plt Count 236 (120.0-450.0) 10^3/uL MPV 11.7 H (7.0-11.0) fl Neut % (Auto) 92.6 H (50.0-68.0) % Lymph % (Auto) 5.1 L (22.0-35.0) % [place] % (Auto) 2.0 (1.0-6.0) % Eos % (Auto) 0.1 L (1.5-5.0) % Baso % (Auto) 0.2 (0.0-3.0) % Lymph # (Auto) 0.8 L (1.2-3.4) [place] # (Auto) 0.3 (0.1-0.6) Eos # (Auto) 0.0 (0.0-0.7) Baso # (Auto) 0.03 (0.0-2.0) K/mm3 Absolute Neuts (auto) 14.73 H (1.4-6.5) Neutrophils % (Manual) (50.0-70.0) % Lymphocytes % (Manual) (22.0-35.0) % Monocytes % (Manual) (1.0-6.0) % Basophils % (Manual) (0.0-1.0) % Platelet Evaluation (NORMAL) APTT (26.9-38.3) Seconds pCO2 (35-45) mm/Hg pO2 (80-100) mm/Hg HCO3 (21-28) mmol/L ABG pH (7.35-7.45) ABG Total CO2 (22-28) mmol.L ABG O2 Saturation (95-98) % ABG O2 Content (15-23) ML/dl ABG Base Excess (-2.0-3.0) mmol/L ABG Hemoglobin (11.7-17.4) g/dL ABG Carboxyhemoglobin (0.5-1.5) % POC ABG HHb (Measured) (0-5) % ABG Methemoglobin (0.0-3.0) % ABG O2 Capacity (16-24) mL/dl ABG Potassium (3.6-5.2) mmol/L VBG pH (7.32-7.43) VBG pCO2 (40-60) VBG HCO3 (21-28) mmol/l VBG Total CO2 (22-28) mmol.L VBG O2 Sat (Calc) (40-65) % VBG Base Excess (0.0-2.0) mmol/L VBG Potassium (3.6-5.2) mmol/L Hgb O2 Saturation (95.0-98.0) % Sodium (132-148) mmol/L Chloride (98-107) mmol/L Glucose (75-110) mg/dl Lactate (0.7-2.1) mmol/L Mechanical Rate FiO2 % Tidal Volume PEEP Blood Gas Comments Crit Value Called To Crit Value Called By Blood Gas Notified Time Potassium (3.6-5.0) mmol/L Carbon Dioxide (21-33) mmol/L Anion Gap (10-20) BUN (7-21) mg/dL Creatinine (0.8-1.5) mg/dl Est GFR ( Amer) Est GFR (Non-Af Amer) POC Glucose (mg/dL) 259 H 293 H (65-110) mg/dL Random Glucose (70-110) mg/dL Calcium (8.4-10.5) mg/dL Phosphorus (2.5-4.5) mg/dL Magnesium (1.7-2.2) mg/dL Total Bilirubin (0.2-1.3) mg/dL AST (17-59) U/L ALT (7-56) U/L Alkaline Phosphatase (38-126) U/L Total Protein (5.8-8.3) g/dL Albumin (3.0-4.8) g/dL Globulin gm/dL Albumin/Globulin Ratio (1.1-1.8) Procalcitonin (0.19-0.49) NG/ML Arterial Blood Potassium (3.6-5.2) mmol/L Venous Blood Potassium (3.6-5.2) mmol/L Stool Occult Blood (NEGATIVE) Blood Type Antibody Screen Crossmatch BBK History Checked 11/15/18 11/15/18 11/15/18 Range/Units 21:00 21:00 19:33 WBC (4.5-11.0) 10^3/uL RBC (3.5-6.1) 10^6/uL Hgb (14.0-18.0) g/dL Hct (42.0-52.0) % MCV (80.0-105.0) fl MCH (25.0-35.0) pg MCHC (31.0-37.0) g/dl RDW (11.5-14.5) % Plt Count (120.0-450.0) 10^3/uL MPV (7.0-11.0) fl Neut % (Auto) (50.0-68.0) % Lymph % (Auto) (22.0-35.0) % [place] % (Auto) (1.0-6.0) % Eos % (Auto) (1.5-5.0) % Baso % (Auto) (0.0-3.0) % Lymph # (Auto) (1.2-3.4) [place] # (Auto) (0.1-0.6) Eos # (Auto) (0.0-0.7) Baso # (Auto) (0.0-2.0) K/mm3 Absolute Neuts (auto) (1.4-6.5) Neutrophils % (Manual) (50.0-70.0) % Lymphocytes % (Manual) (22.0-35.0) % Monocytes % (Manual) (1.0-6.0) % Basophils % (Manual) (0.0-1.0) % Platelet Evaluation (NORMAL) APTT (26.9-38.3) Seconds pCO2 (35-45) mm/Hg pO2 35 (80-100) mm/Hg HCO3 (21-28) mmol/L ABG pH (7.35-7.45) ABG Total CO2 (22-28) mmol.L ABG O2 Saturation (95-98) % ABG O2 Content (15-23) ML/dl ABG Base Excess (-2.0-3.0) mmol/L ABG Hemoglobin (11.7-17.4) g/dL ABG Carboxyhemoglobin (0.5-1.5) % POC ABG HHb (Measured) (0-5) % ABG Methemoglobin (0.0-3.0) % ABG O2 Capacity (16-24) mL/dl ABG Potassium (3.6-5.2) mmol/L VBG pH 7.23 L (7.32-7.43) VBG pCO2 38.0 L (40-60) VBG HCO3 15.9 L (21-28) mmol/l VBG Total CO2 17.1 L (22-28) mmol.L VBG O2 Sat (Calc) 66.6 H (40-65) % VBG Base Excess -10.9 L (0.0-2.0) mmol/L VBG Potassium 3.3 L (3.6-5.2) mmol/L Hgb O2 Saturation (95.0-98.0) % Sodium 143.0 142 (132-148) mmol/L Chloride 115.0 H 114 H (98-107) mmol/L Glucose 311 H (75-110) mg/dl Lactate 2.3 H (0.7-2.1) mmol/L Mechanical Rate FiO2 21.0 % Tidal Volume PEEP Blood Gas Comments Crit Value Called To Ainsley antonio Crit Value Called By Xiang Blood Gas Notified Time 2100 Potassium 3.3 L (3.6-5.0) mmol/L Carbon Dioxide 17 L (21-33) mmol/L Anion Gap 14 (10-20) BUN 29 H (7-21) mg/dL Creatinine 1.2 (0.8-1.5) mg/dl Est GFR ( Amer) > 60 Est GFR (Non-Af Amer) > 60 POC Glucose (mg/dL) 369 H (65-110) mg/dL Random Glucose 294 H (70-110) mg/dL Calcium 7.8 L (8.4-10.5) mg/dL Phosphorus (2.5-4.5) mg/dL Magnesium (1.7-2.2) mg/dL Total Bilirubin (0.2-1.3) mg/dL AST (17-59) U/L ALT (7-56) U/L Alkaline Phosphatase (38-126) U/L Total Protein (5.8-8.3) g/dL Albumin (3.0-4.8) g/dL Globulin gm/dL Albumin/Globulin Ratio (1.1-1.8) Procalcitonin (0.19-0.49) NG/ML Arterial Blood Potassium (3.6-5.2) mmol/L Venous Blood Potassium 3.3 L (3.6-5.2) mmol/L Stool Occult Blood (NEGATIVE) Blood Type Antibody Screen Crossmatch BBK History Checked 11/15/18 11/15/18 11/15/18 Range/Units 18:57 17:50 17:00 WBC (4.5-11.0) 10^3/uL RBC (3.5-6.1) 10^6/uL Hgb (14.0-18.0) g/dL Hct (42.0-52.0) % MCV (80.0-105.0) fl MCH (25.0-35.0) pg MCHC (31.0-37.0) g/dl RDW (11.5-14.5) % Plt Count (120.0-450.0) 10^3/uL MPV (7.0-11.0) fl Neut % (Auto) (50.0-68.0) % Lymph % (Auto) (22.0-35.0) % [place] % (Auto) (1.0-6.0) % Eos % (Auto) (1.5-5.0) % Baso % (Auto) (0.0-3.0) % Lymph # (Auto) (1.2-3.4) [place] # (Auto) (0.1-0.6) Eos # (Auto) (0.0-0.7) Baso # (Auto) (0.0-2.0) K/mm3 Absolute Neuts (auto) (1.4-6.5) Neutrophils % (Manual) (50.0-70.0) % Lymphocytes % (Manual) (22.0-35.0) % Monocytes % (Manual) (1.0-6.0) % Basophils % (Manual) (0.0-1.0) % Platelet Evaluation (NORMAL) APTT (26.9-38.3) Seconds pCO2 27 L (35-45) mm/Hg pO2 153.0 H (80-100) mm/Hg HCO3 13.3 L (21-28) mmol/L ABG pH 7.30 L (7.35-7.45) ABG Total CO2 14.1 L (22-28) mmol.L ABG O2 Saturation 99.6 H (95-98) % ABG O2 Content (15-23) ML/dl ABG Base Excess -11.5 L (-2.0-3.0) mmol/L ABG Hemoglobin (11.7-17.4) g/dL ABG Carboxyhemoglobin (0.5-1.5) % POC ABG HHb (Measured) (0-5) % ABG Methemoglobin (0.0-3.0) % ABG O2 Capacity (16-24) mL/dl ABG Potassium 4.1 (3.6-5.2) mmol/L VBG pH (7.32-7.43) VBG pCO2 (40-60) VBG HCO3 (21-28) mmol/l VBG Total CO2 (22-28) mmol.L VBG O2 Sat (Calc) (40-65) % VBG Base Excess (0.0-2.0) mmol/L VBG Potassium (3.6-5.2) mmol/L Hgb O2 Saturation (95.0-98.0) % Sodium 140.0 (132-148) mmol/L Chloride 110.0 H (98-107) mmol/L Glucose 412 H* (75-110) mg/dl Lactate 1.2 (0.7-2.1) mmol/L Mechanical Rate 25 FiO2 40.0 % Tidal Volume 400 PEEP 5 Blood Gas Comments Crit Value Called To Dr. bridger Crit Value Called By Josie duarte mold capper Blood Gas Notified Time 1718 Potassium (3.6-5.0) mmol/L Carbon Dioxide (21-33) mmol/L Anion Gap (10-20) BUN (7-21) mg/dL Creatinine (0.8-1.5) mg/dl Est GFR ( Amer) Est GFR (Non-Af Amer) POC Glucose (mg/dL) 361 H 399 H (65-110) mg/dL Random Glucose (70-110) mg/dL Calcium (8.4-10.5) mg/dL Phosphorus (2.5-4.5) mg/dL Magnesium (1.7-2.2) mg/dL Total Bilirubin (0.2-1.3) mg/dL AST (17-59) U/L ALT (7-56) U/L Alkaline Phosphatase (38-126) U/L Total Protein (5.8-8.3) g/dL Albumin (3.0-4.8) g/dL Globulin gm/dL Albumin/Globulin Ratio (1.1-1.8) Procalcitonin (0.19-0.49) NG/ML Arterial Blood Potassium 4.1 (3.6-5.2) mmol/L Venous Blood Potassium (3.6-5.2) mmol/L Stool Occult Blood (NEGATIVE) Blood Type Antibody Screen Crossmatch BBK History Checked 11/15/18 11/15/18 11/15/18 Range/Units 16:11 15:00 13:40 WBC (4.5-11.0) 10^3/uL RBC (3.5-6.1) 10^6/uL Hgb (14.0-18.0) g/dL Hct (42.0-52.0) % MCV (80.0-105.0) fl MCH (25.0-35.0) pg MCHC (31.0-37.0) g/dl RDW (11.5-14.5) % Plt Count (120.0-450.0) 10^3/uL MPV (7.0-11.0) fl Neut % (Auto) (50.0-68.0) % Lymph % (Auto) (22.0-35.0) % [place] % (Auto) (1.0-6.0) % Eos % (Auto) (1.5-5.0) % Baso % (Auto) (0.0-3.0) % Lymph # (Auto) (1.2-3.4) [place] # (Auto) (0.1-0.6) Eos # (Auto) (0.0-0.7) Baso # (Auto) (0.0-2.0) K/mm3 Absolute Neuts (auto) (1.4-6.5) Neutrophils % (Manual) (50.0-70.0) % Lymphocytes % (Manual) (22.0-35.0) % Monocytes % (Manual) (1.0-6.0) % Basophils % (Manual) (0.0-1.0) % Platelet Evaluation (NORMAL) APTT (26.9-38.3) Seconds pCO2 (35-45) mm/Hg pO2 47 (80-100) mm/Hg HCO3 (21-28) mmol/L ABG pH (7.35-7.45) ABG Total CO2 (22-28) mmol.L ABG O2 Saturation (95-98) % ABG O2 Content (15-23) ML/dl ABG Base Excess (-2.0-3.0) mmol/L ABG Hemoglobin (11.7-17.4) g/dL ABG Carboxyhemoglobin (0.5-1.5) % POC ABG HHb (Measured) (0-5) % ABG Methemoglobin (0.0-3.0) % ABG O2 Capacity (16-24) mL/dl ABG Potassium (3.6-5.2) mmol/L VBG pH 7.07 L* (7.32-7.43) VBG pCO2 49.0 (40-60) VBG HCO3 14.2 L (21-28) mmol/l VBG Total CO2 15.7 L (22-28) mmol.L VBG O2 Sat (Calc) 75.7 H (40-65) % VBG Base Excess -15.8 L (0.0-2.0) mmol/L VBG Potassium 3.7 (3.6-5.2) mmol/L Hgb O2 Saturation (95.0-98.0) % Sodium 143 142.0 (132-148) mmol/L Chloride 112 H 113.0 H (98-107) mmol/L Glucose 463 H* D (75-110) mg/dl Lactate 2.5 H (0.7-2.1) mmol/L Mechanical Rate FiO2 21.0 % Tidal Volume PEEP Blood Gas Comments Crit Value Called To Michelle sanchez Crit Value Called By Ab Blood Gas Notified Time 1350 Potassium 3.7 (3.6-5.0) mmol/L Carbon Dioxide 16 L (21-33) mmol/L Anion Gap 19 (10-20) BUN 27 H (7-21) mg/dL Creatinine 1.2 (0.8-1.5) mg/dl Est GFR ( Amer) > 60 Est GFR (Non-Af Amer) > 60 POC Glucose (mg/dL) 410 H* (65-110) mg/dL Random Glucose 414 H* D (70-110) mg/dL Calcium 7.6 L (8.4-10.5) mg/dL Phosphorus 6.1 H (2.5-4.5) mg/dL Magnesium 1.8 (1.7-2.2) mg/dL Total Bilirubin 0.6 (0.2-1.3) mg/dL AST 85 H (17-59) U/L ALT 24 (7-56) U/L Alkaline Phosphatase 117 (38-126) U/L Total Protein 6.8 (5.8-8.3) g/dL Albumin 3.2 (3.0-4.8) g/dL Globulin 3.6 gm/dL Albumin/Globulin Ratio 0.9 L (1.1-1.8) Procalcitonin (0.19-0.49) NG/ML Arterial Blood Potassium (3.6-5.2) mmol/L Venous Blood Potassium 3.7 (3.6-5.2) mmol/L Stool Occult Blood (NEGATIVE) Blood Type Antibody Screen Crossmatch BBK History Checked 11/15/18 11/15/18 11/15/18 Range/Units 13:40 09:30 08:30 WBC (4.5-11.0) 10^3/uL RBC (3.5-6.1) 10^6/uL Hgb 10.4 L (14.0-18.0) g/dL Hct 33.2 L (42.0-52.0) % MCV (80.0-105.0) fl MCH (25.0-35.0) pg MCHC (31.0-37.0) g/dl RDW (11.5-14.5) % Plt Count (120.0-450.0) 10^3/uL MPV (7.0-11.0) fl Neut % (Auto) (50.0-68.0) % Lymph % (Auto) (22.0-35.0) % [place] % (Auto) (1.0-6.0) % Eos % (Auto) (1.5-5.0) % Baso % (Auto) (0.0-3.0) % Lymph # (Auto) (1.2-3.4) [place] # (Auto) (0.1-0.6) Eos # (Auto) (0.0-0.7) Baso # (Auto) (0.0-2.0) K/mm3 Absolute Neuts (auto) (1.4-6.5) Neutrophils % (Manual) (50.0-70.0) % Lymphocytes % (Manual) (22.0-35.0) % Monocytes % (Manual) (1.0-6.0) % Basophils % (Manual) (0.0-1.0) % Platelet Evaluation (NORMAL) APTT (26.9-38.3) Seconds pCO2 28 L (35-45) mm/Hg pO2 284.0 H (80-100) mm/Hg HCO3 13.8 L (21-28) mmol/L ABG pH 7.30 L (7.35-7.45) ABG Total CO2 14.7 L (22-28) mmol.L ABG O2 Saturation 99.8 H (95-98) % ABG O2 Content (15-23) ML/dl ABG Base Excess -11.1 L (-2.0-3.0) mmol/L ABG Hemoglobin (11.7-17.4) g/dL ABG Carboxyhemoglobin (0.5-1.5) % POC ABG HHb (Measured) (0-5) % ABG Methemoglobin (0.0-3.0) % ABG O2 Capacity (16-24) mL/dl ABG Potassium 3.7 (3.6-5.2) mmol/L VBG pH (7.32-7.43) VBG pCO2 (40-60) VBG HCO3 (21-28) mmol/l VBG Total CO2 (22-28) mmol.L VBG O2 Sat (Calc) (40-65) % VBG Base Excess (0.0-2.0) mmol/L VBG Potassium (3.6-5.2) mmol/L Hgb O2 Saturation (95.0-98.0) % Sodium 142.0 (132-148) mmol/L Chloride 117.0 H (98-107) mmol/L Glucose 341 H (75-110) mg/dl Lactate 2.7 H (0.7-2.1) mmol/L Mechanical Rate FiO2 100.0 % Tidal Volume PEEP Blood Gas Comments Status post-cardiac arrest Crit Value Called To Dr. casanova Crit Value Called By Josie duarte mold capper Blood Gas Notified Time 940 Potassium (3.6-5.0) mmol/L Carbon Dioxide (21-33) mmol/L Anion Gap (10-20) BUN (7-21) mg/dL Creatinine (0.8-1.5) mg/dl Est GFR ( Amer) Est GFR (Non-Af Amer) POC Glucose (mg/dL) (65-110) mg/dL Random Glucose (70-110) mg/dL Calcium (8.4-10.5) mg/dL Phosphorus (2.5-4.5) mg/dL Magnesium (1.7-2.2) mg/dL Total Bilirubin (0.2-1.3) mg/dL AST (17-59) U/L ALT (7-56) U/L Alkaline Phosphatase (38-126) U/L Total Protein (5.8-8.3) g/dL Albumin (3.0-4.8) g/dL Globulin gm/dL Albumin/Globulin Ratio (1.1-1.8) Procalcitonin (0.19-0.49) NG/ML Arterial Blood Potassium 3.7 (3.6-5.2) mmol/L Venous Blood Potassium (3.6-5.2) mmol/L Stool Occult Blood Negative (NEGATIVE) Blood Type Antibody Screen Crossmatch BBK History Checked 11/15/18 11/14/18 11/14/18 Range/Units 07:00 18:40 18:19 WBC (4.5-11.0) 10^3/uL RBC (3.5-6.1) 10^6/uL Hgb (14.0-18.0) g/dL Hct (42.0-52.0) % MCV (80.0-105.0) fl MCH (25.0-35.0) pg MCHC (31.0-37.0) g/dl RDW (11.5-14.5) % Plt Count (120.0-450.0) 10^3/uL MPV (7.0-11.0) fl Neut % (Auto) (50.0-68.0) % Lymph % (Auto) (22.0-35.0) % [place] % (Auto) (1.0-6.0) % Eos % (Auto) (1.5-5.0) % Baso % (Auto) (0.0-3.0) % Lymph # (Auto) (1.2-3.4) [place] # (Auto) (0.1-0.6) Eos # (Auto) (0.0-0.7) Baso # (Auto) (0.0-2.0) K/mm3 Absolute Neuts (auto) (1.4-6.5) Neutrophils % (Manual) 97 H (50.0-70.0) % Lymphocytes % (Manual) 1 L (22.0-35.0) % Monocytes % (Manual) 1 (1.0-6.0) % Basophils % (Manual) 1 (0.0-1.0) % Platelet Evaluation Normal (NORMAL) APTT (26.9-38.3) Seconds pCO2 (35-45) mm/Hg pO2 (80-100) mm/Hg HCO3 (21-28) mmol/L ABG pH (7.35-7.45) ABG Total CO2 (22-28) mmol.L ABG O2 Saturation (95-98) % ABG O2 Content (15-23) ML/dl ABG Base Excess (-2.0-3.0) mmol/L ABG Hemoglobin (11.7-17.4) g/dL ABG Carboxyhemoglobin (0.5-1.5) % POC ABG HHb (Measured) (0-5) % ABG Methemoglobin (0.0-3.0) % ABG O2 Capacity (16-24) mL/dl ABG Potassium (3.6-5.2) mmol/L VBG pH (7.32-7.43) VBG pCO2 (40-60) VBG HCO3 (21-28) mmol/l VBG Total CO2 (22-28) mmol.L VBG O2 Sat (Calc) (40-65) % VBG Base Excess (0.0-2.0) mmol/L VBG Potassium (3.6-5.2) mmol/L Hgb O2 Saturation (95.0-98.0) % Sodium (132-148) mmol/L Chloride (98-107) mmol/L Glucose (75-110) mg/dl Lactate (0.7-2.1) mmol/L Mechanical Rate FiO2 % Tidal Volume PEEP Blood Gas Comments Crit Value Called To Crit Value Called By Blood Gas Notified Time Potassium (3.6-5.0) mmol/L Carbon Dioxide (21-33) mmol/L Anion Gap (10-20) BUN (7-21) mg/dL Creatinine (0.8-1.5) mg/dl Est GFR ( Amer) Est GFR (Non-Af Amer) POC Glucose (mg/dL) (65-110) mg/dL Random Glucose (70-110) mg/dL Calcium (8.4-10.5) mg/dL Phosphorus (2.5-4.5) mg/dL Magnesium (1.7-2.2) mg/dL Total Bilirubin (0.2-1.3) mg/dL AST (17-59) U/L ALT (7-56) U/L Alkaline Phosphatase (38-126) U/L Total Protein (5.8-8.3) g/dL Albumin (3.0-4.8) g/dL Globulin gm/dL Albumin/Globulin Ratio (1.1-1.8) Procalcitonin 0.11 L (0.19-0.49) NG/ML Arterial Blood Potassium (3.6-5.2) mmol/L Venous Blood Potassium (3.6-5.2) mmol/L Stool Occult Blood (NEGATIVE) Blood Type O POSITIVE Antibody Screen Negative Crossmatch See Detail BBK History Checked Patient has bt Laboratory Results - last 24 hr 11/14/18 11/14/18 11/15/18 18:19 18:40 07:00 WBC RBC Hgb Hct MCV MCH MCHC RDW Plt Count MPV Neut % (Auto) Lymph % (Auto) [place] % (Auto) Eos % (Auto) Baso % (Auto) Lymph # (Auto) [place] # (Auto) Eos # (Auto) Baso # (Auto) Absolute Neuts (auto) Neutrophils % (Manual) 97 H Lymphocytes % (Manual) 1 L Monocytes % (Manual) 1 Basophils % (Manual) 1 Platelet Evaluation Normal APTT pCO2 pO2 HCO3 ABG pH ABG Total CO2 ABG O2 Saturation ABG O2 Content ABG Base Excess ABG Hemoglobin ABG Carboxyhemoglobin POC ABG HHb (Measured) ABG Methemoglobin ABG O2 Capacity ABG Potassium VBG pH VBG pCO2 VBG HCO3 VBG Total CO2 VBG O2 Sat (Calc) VBG Base Excess VBG Potassium Hgb O2 Saturation Sodium Chloride Glucose Lactate Mechanical Rate FiO2 Tidal Volume PEEP Blood Gas Comments Crit Value Called To Crit Value Called By Blood Gas Notified Time Potassium Carbon Dioxide Anion Gap BUN Creatinine Est GFR ( Amer) Est GFR (Non-Af Amer) POC Glucose (mg/dL) Random Glucose Calcium Phosphorus Magnesium Total Bilirubin AST ALT Alkaline Phosphatase Total Protein Albumin Globulin Albumin/Globulin Ratio Procalcitonin 0.11 L Arterial Blood Potassium Venous Blood Potassium Stool Occult Blood Blood Type O POSITIVE Antibody Screen Negative Crossmatch See Detail BBK History Checked Patient has bt 11/15/18 11/15/18 11/15/18 08:30 09:30 13:40 WBC RBC Hgb 10.4 L Hct 33.2 L MCV MCH MCHC RDW Plt Count MPV Neut % (Auto) Lymph % (Auto) [place] % (Auto) Eos % (Auto) Baso % (Auto) Lymph # (Auto) [place] # (Auto) Eos # (Auto) Baso # (Auto) Absolute Neuts (auto) Neutrophils % (Manual) Lymphocytes % (Manual) Monocytes % (Manual) Basophils % (Manual) Platelet Evaluation APTT pCO2 28 L pO2 284.0 H HCO3 13.8 L ABG pH 7.30 L ABG Total CO2 14.7 L ABG O2 Saturation 99.8 H ABG O2 Content ABG Base Excess -11.1 L ABG Hemoglobin ABG Carboxyhemoglobin POC ABG HHb (Measured) ABG Methemoglobin ABG O2 Capacity ABG Potassium 3.7 VBG pH VBG pCO2 VBG HCO3 VBG Total CO2 VBG O2 Sat (Calc) VBG Base Excess VBG Potassium Hgb O2 Saturation Sodium 142.0 Chloride 117.0 H Glucose 341 H Lactate 2.7 H Mechanical Rate FiO2 100.0 Tidal Volume PEEP Blood Gas Comments Status post-cardiac arrest Crit Value Called To Dr. casanova Crit Value Called By Josie duarte mold capper Blood Gas Notified Time 940 Potassium Carbon Dioxide Anion Gap BUN Creatinine Est GFR ( Amer) Est GFR (Non-Af Amer) POC Glucose (mg/dL) Random Glucose Calcium Phosphorus Magnesium Total Bilirubin AST ALT Alkaline Phosphatase Total Protein Albumin Globulin Albumin/Globulin Ratio Procalcitonin Arterial Blood Potassium 3.7 Venous Blood Potassium Stool Occult Blood Negative Blood Type Antibody Screen Crossmatch BBK History Checked 11/15/18 11/15/18 11/15/18 13:40 15:00 16:11 WBC RBC Hgb Hct MCV MCH MCHC RDW Plt Count MPV Neut % (Auto) Lymph % (Auto) [place] % (Auto) Eos % (Auto) Baso % (Auto) Lymph # (Auto) [place] # (Auto) Eos # (Auto) Baso # (Auto) Absolute Neuts (auto) Neutrophils % (Manual) Lymphocytes % (Manual) Monocytes % (Manual) Basophils % (Manual) Platelet Evaluation APTT pCO2 pO2 47 HCO3 ABG pH ABG Total CO2 ABG O2 Saturation ABG O2 Content ABG Base Excess ABG Hemoglobin ABG Carboxyhemoglobin POC ABG HHb (Measured) ABG Methemoglobin ABG O2 Capacity ABG Potassium VBG pH 7.07 L* VBG pCO2 49.0 VBG HCO3 14.2 L VBG Total CO2 15.7 L VBG O2 Sat (Calc) 75.7 H VBG Base Excess -15.8 L VBG Potassium 3.7 Hgb O2 Saturation Sodium 142.0 143 Chloride 113.0 H 112 H Glucose 463 H* D Lactate 2.5 H Mechanical Rate FiO2 21.0 Tidal Volume PEEP Blood Gas Comments Crit Value Called To Michelle sanchez Crit Value Called By Ab Blood Gas Notified Time 1350 Potassium 3.7 Carbon Dioxide 16 L Anion Gap 19 BUN 27 H Creatinine 1.2 Est GFR ( Amer) > 60 Est GFR (Non-Af Amer) > 60 POC Glucose (mg/dL) 410 H* Random Glucose 414 H* D Calcium 7.6 L Phosphorus 6.1 H Magnesium 1.8 Total Bilirubin 0.6 AST 85 H ALT 24 Alkaline Phosphatase 117 Total Protein 6.8 Albumin 3.2 Globulin 3.6 Albumin/Globulin Ratio 0.9 L Procalcitonin Arterial Blood Potassium Venous Blood Potassium 3.7 Stool Occult Blood Blood Type Antibody Screen Crossmatch BBK History Checked 11/15/18 11/15/18 11/15/18 17:00 17:50 18:57 WBC RBC Hgb Hct MCV MCH MCHC RDW Plt Count MPV Neut % (Auto) Lymph % (Auto) [place] % (Auto) Eos % (Auto) Baso % (Auto) Lymph # (Auto) [place] # (Auto) Eos # (Auto) Baso # (Auto) Absolute Neuts (auto) Neutrophils % (Manual) Lymphocytes % (Manual) Monocytes % (Manual) Basophils % (Manual) Platelet Evaluation APTT pCO2 27 L pO2 153.0 H HCO3 13.3 L ABG pH 7.30 L ABG Total CO2 14.1 L ABG O2 Saturation 99.6 H ABG O2 Content ABG Base Excess -11.5 L ABG Hemoglobin ABG Carboxyhemoglobin POC ABG HHb (Measured) ABG Methemoglobin ABG O2 Capacity ABG Potassium 4.1 VBG pH VBG pCO2 VBG HCO3 VBG Total CO2 VBG O2 Sat (Calc) VBG Base Excess VBG Potassium Hgb O2 Saturation Sodium 140.0 Chloride 110.0 H Glucose 412 H* Lactate 1.2 Mechanical Rate 25 FiO2 40.0 Tidal Volume 400 PEEP 5 Blood Gas Comments Crit Value Called To Dr. sparks Crit Value Called By Josie duarte mold capper Blood Gas Notified Time 1718 Potassium Carbon Dioxide Anion Gap BUN Creatinine Est GFR ( Amer) Est GFR (Non-Af Amer) POC Glucose (mg/dL) 399 H 361 H Random Glucose Calcium Phosphorus Magnesium Total Bilirubin AST ALT Alkaline Phosphatase Total Protein Albumin Globulin Albumin/Globulin Ratio Procalcitonin Arterial Blood Potassium 4.1 Venous Blood Potassium Stool Occult Blood Blood Type Antibody Screen Crossmatch BBK History Checked 11/15/18 11/15/18 11/15/18 19:33 21:00 21:00 WBC RBC Hgb Hct MCV MCH MCHC RDW Plt Count MPV Neut % (Auto) Lymph % (Auto) [place] % (Auto) Eos % (Auto) Baso % (Auto) Lymph # (Auto) [place] # (Auto) Eos # (Auto) Baso # (Auto) Absolute Neuts (auto) Neutrophils % (Manual) Lymphocytes % (Manual) Monocytes % (Manual) Basophils % (Manual) Platelet Evaluation APTT pCO2 pO2 35 HCO3 ABG pH ABG Total CO2 ABG O2 Saturation ABG O2 Content ABG Base Excess ABG Hemoglobin ABG Carboxyhemoglobin POC ABG HHb (Measured) ABG Methemoglobin ABG O2 Capacity ABG Potassium VBG pH 7.23 L VBG pCO2 38.0 L VBG HCO3 15.9 L VBG Total CO2 17.1 L VBG O2 Sat (Calc) 66.6 H VBG Base Excess -10.9 L VBG Potassium 3.3 L Hgb O2 Saturation Sodium 142 143.0 Chloride 114 H 115.0 H Glucose 311 H Lactate 2.3 H Mechanical Rate FiO2 21.0 Tidal Volume PEEP Blood Gas Comments Crit Value Called To Ainsley atnonio Crit Value Called By Xiang Blood Gas Notified Time 2100 Potassium 3.3 L Carbon Dioxide 17 L Anion Gap 14 BUN 29 H Creatinine 1.2 Est GFR ( Amer) > 60 Est GFR (Non-Af Amer) > 60 POC Glucose (mg/dL) 369 H Random Glucose 294 H Calcium 7.8 L Phosphorus Magnesium Total Bilirubin AST ALT Alkaline Phosphatase Total Protein Albumin Globulin Albumin/Globulin Ratio Procalcitonin Arterial Blood Potassium Venous Blood Potassium 3.3 L Stool Occult Blood Blood Type Antibody Screen Crossmatch BBK History Checked 11/15/18 11/15/18 11/15/18 21:00 21:05 22:10 WBC 15.9 H RBC 3.45 L Hgb 9.2 L Hct 29.4 L MCV 85.2 MCH 26.7 MCHC 31.3 RDW 16.3 H Plt Count 236 MPV 11.7 H Neut % (Auto) 92.6 H Lymph % (Auto) 5.1 L [place] % (Auto) 2.0 Eos % (Auto) 0.1 L Baso % (Auto) 0.2 Lymph # (Auto) 0.8 L [place] # (Auto) 0.3 Eos # (Auto) 0.0 Baso # (Auto) 0.03 Absolute Neuts (auto) 14.73 H Neutrophils % (Manual) Lymphocytes % (Manual) Monocytes % (Manual) Basophils % (Manual) Platelet Evaluation APTT pCO2 pO2 HCO3 ABG pH ABG Total CO2 ABG O2 Saturation ABG O2 Content ABG Base Excess ABG Hemoglobin ABG Carboxyhemoglobin POC ABG HHb (Measured) ABG Methemoglobin ABG O2 Capacity ABG Potassium VBG pH VBG pCO2 VBG HCO3 VBG Total CO2 VBG O2 Sat (Calc) VBG Base Excess VBG Potassium Hgb O2 Saturation Sodium Chloride Glucose Lactate Mechanical Rate FiO2 Tidal Volume PEEP Blood Gas Comments Crit Value Called To Crit Value Called By Blood Gas Notified Time Potassium Carbon Dioxide Anion Gap BUN Creatinine Est GFR ( Amer) Est GFR (Non-Af Amer) POC Glucose (mg/dL) 293 H 259 H Random Glucose Calcium Phosphorus Magnesium Total Bilirubin AST ALT Alkaline Phosphatase Total Protein Albumin Globulin Albumin/Globulin Ratio Procalcitonin Arterial Blood Potassium Venous Blood Potassium Stool Occult Blood Blood Type Antibody Screen Crossmatch BBK History Checked 11/15/18 11/15/18 11/15/18 23:05 23:30 23:50 WBC 14.2 H RBC 3.62 Hgb 9.7 L Hct 30.5 L MCV 84.3 MCH 26.8 MCHC 31.8 RDW 16.1 H Plt Count 213 MPV 11.1 H Neut % (Auto) 91.0 H Lymph % (Auto) 6.1 L [place] % (Auto) 2.6 Eos % (Auto) 0.2 L Baso % (Auto) 0.1 Lymph # (Auto) 0.9 L [place] # (Auto) 0.4 Eos # (Auto) 0.0 Baso # (Auto) 0.02 Absolute Neuts (auto) 12.87 H Neutrophils % (Manual) Lymphocytes % (Manual) Monocytes % (Manual) Basophils % (Manual) Platelet Evaluation APTT 54.7 H pCO2 pO2 HCO3 ABG pH ABG Total CO2 ABG O2 Saturation ABG O2 Content ABG Base Excess ABG Hemoglobin ABG Carboxyhemoglobin POC ABG HHb (Measured) ABG Methemoglobin ABG O2 Capacity ABG Potassium VBG pH VBG pCO2 VBG HCO3 VBG Total CO2 VBG O2 Sat (Calc) VBG Base Excess VBG Potassium Hgb O2 Saturation Sodium Chloride Glucose Lactate Mechanical Rate FiO2 Tidal Volume PEEP Blood Gas Comments Crit Value Called To Crit Value Called By Blood Gas Notified Time Potassium Carbon Dioxide Anion Gap BUN Creatinine Est GFR ( Amer) Est GFR (Non-Af Amer) POC Glucose (mg/dL) 241 H Random Glucose Calcium Phosphorus Magnesium Total Bilirubin AST ALT Alkaline Phosphatase Total Protein Albumin Globulin Albumin/Globulin Ratio Procalcitonin Arterial Blood Potassium Venous Blood Potassium Stool Occult Blood Blood Type Antibody Screen Crossmatch BBK History Checked 11/15/18 11/16/18 11/16/18 23:53 01:02 01:45 WBC RBC Hgb Hct MCV MCH MCHC RDW Plt Count MPV Neut % (Auto) Lymph % (Auto) [place] % (Auto) Eos % (Auto) Baso % (Auto) Lymph # (Auto) [place] # (Auto) Eos # (Auto) Baso # (Auto) Absolute Neuts (auto) Neutrophils % (Manual) Lymphocytes % (Manual) Monocytes % (Manual) Basophils % (Manual) Platelet Evaluation APTT pCO2 pO2 43 HCO3 ABG pH ABG Total CO2 ABG O2 Saturation ABG O2 Content ABG Base Excess ABG Hemoglobin ABG Carboxyhemoglobin POC ABG HHb (Measured) ABG Methemoglobin ABG O2 Capacity ABG Potassium VBG pH 7.25 L VBG pCO2 37.0 L VBG HCO3 16.2 L VBG Total CO2 17.3 L VBG O2 Sat (Calc) 77.8 H VBG Base Excess -10.3 L VBG Potassium 3.2 L Hgb O2 Saturation Sodium 144.0 Chloride 117.0 H Glucose 192 H Lactate 1.9 Mechanical Rate FiO2 21.0 Tidal Volume PEEP Blood Gas Comments Crit Value Called To Crit Value Called By Blood Gas Notified Time Potassium Carbon Dioxide Anion Gap BUN Creatinine Est GFR ( Amer) Est GFR (Non-Af Amer) POC Glucose (mg/dL) 252 H 200 H Random Glucose Calcium Phosphorus Magnesium Total Bilirubin AST ALT Alkaline Phosphatase Total Protein Albumin Globulin Albumin/Globulin Ratio Procalcitonin Arterial Blood Potassium Venous Blood Potassium 3.2 L Stool Occult Blood Blood Type Antibody Screen Crossmatch BBK History Checked 11/16/18 11/16/18 11/16/18 02:10 03:06 03:55 WBC RBC Hgb Hct MCV MCH MCHC RDW Plt Count MPV Neut % (Auto) Lymph % (Auto) [place] % (Auto) Eos % (Auto) Baso % (Auto) Lymph # (Auto) [place] # (Auto) Eos # (Auto) Baso # (Auto) Absolute Neuts (auto) Neutrophils % (Manual) Lymphocytes % (Manual) Monocytes % (Manual) Basophils % (Manual) Platelet Evaluation APTT pCO2 pO2 HCO3 ABG pH ABG Total CO2 ABG O2 Saturation ABG O2 Content ABG Base Excess ABG Hemoglobin ABG Carboxyhemoglobin POC ABG HHb (Measured) ABG Methemoglobin ABG O2 Capacity ABG Potassium VBG pH VBG pCO2 VBG HCO3 VBG Total CO2 VBG O2 Sat (Calc) VBG Base Excess VBG Potassium Hgb O2 Saturation Sodium Chloride Glucose Lactate Mechanical Rate FiO2 Tidal Volume PEEP Blood Gas Comments Crit Value Called To Crit Value Called By Blood Gas Notified Time Potassium Carbon Dioxide Anion Gap BUN Creatinine Est GFR ( Amer) Est GFR (Non-Af Amer) POC Glucose (mg/dL) 194 H 173 H 151 H Random Glucose Calcium Phosphorus Magnesium Total Bilirubin AST ALT Alkaline Phosphatase Total Protein Albumin Globulin Albumin/Globulin Ratio Procalcitonin Arterial Blood Potassium Venous Blood Potassium Stool Occult Blood Blood Type Antibody Screen Crossmatch BBK History Checked 11/16/18 11/16/18 11/16/18 05:30 05:30 05:30 WBC 12.2 H RBC 3.69 Hgb 9.7 L Hct 31.0 L MCV 84.0 MCH 26.3 MCHC 31.3 RDW 16.2 H Plt Count 214 MPV 10.9 Neut % (Auto) 90.6 H Lymph % (Auto) 6.6 L [place] % (Auto) 2.0 Eos % (Auto) 0.6 L Baso % (Auto) 0.2 Lymph # (Auto) 0.8 L [place] # (Auto) 0.2 Eos # (Auto) 0.1 Baso # (Auto) 0.03 Absolute Neuts (auto) 11.06 H Neutrophils % (Manual) Lymphocytes % (Manual) Monocytes % (Manual) Basophils % (Manual) Platelet Evaluation APTT 43.8 H pCO2 pO2 HCO3 ABG pH ABG Total CO2 ABG O2 Saturation ABG O2 Content ABG Base Excess ABG Hemoglobin ABG Carboxyhemoglobin POC ABG HHb (Measured) ABG Methemoglobin ABG O2 Capacity ABG Potassium VBG pH VBG pCO2 VBG HCO3 VBG Total CO2 VBG O2 Sat (Calc) VBG Base Excess VBG Potassium Hgb O2 Saturation Sodium 144 Chloride 117 H Glucose Lactate Mechanical Rate FiO2 Tidal Volume PEEP Blood Gas Comments Crit Value Called To Crit Value Called By Blood Gas Notified Time Potassium 3.5 L Carbon Dioxide 19 L Anion Gap 12 BUN 29 H Creatinine 1.2 Est GFR ( Amer) > 60 Est GFR (Non-Af Amer) > 60 POC Glucose (mg/dL) Random Glucose 132 H Calcium 7.7 L Phosphorus 4.4 Magnesium 1.7 Total Bilirubin 0.4 AST 66 H D ALT 18 Alkaline Phosphatase 92 Total Protein 6.6 Albumin 2.9 L Globulin 3.7 Albumin/Globulin Ratio 0.8 L Procalcitonin Arterial Blood Potassium Venous Blood Potassium Stool Occult Blood Blood Type Antibody Screen Crossmatch BBK History Checked 11/16/18 11/16/18 11/16/18 06:12 07:00 07:40 WBC RBC Hgb Hct MCV MCH MCHC RDW Plt Count MPV Neut % (Auto) Lymph % (Auto) [place] % (Auto) Eos % (Auto) Baso % (Auto) Lymph # (Auto) [place] # (Auto) Eos # (Auto) Baso # (Auto) Absolute Neuts (auto) Neutrophils % (Manual) Lymphocytes % (Manual) Monocytes % (Manual) Basophils % (Manual) Platelet Evaluation APTT pCO2 24 L pO2 141.0 H HCO3 14.2 L ABG pH 7.38 ABG Total CO2 14.9 L ABG O2 Saturation 99.3 H ABG O2 Content 14.1 L ABG Base Excess -9.5 L ABG Hemoglobin 10.1 L ABG Carboxyhemoglobin 1.3 POC ABG HHb (Measured) 0.7 ABG Methemoglobin 0.9 ABG O2 Capacity 14.2 L ABG Potassium VBG pH VBG pCO2 VBG HCO3 VBG Total CO2 VBG O2 Sat (Calc) VBG Base Excess VBG Potassium Hgb O2 Saturation 97.2 Sodium Chloride Glucose Lactate Mechanical Rate FiO2 40.0 Tidal Volume PEEP Blood Gas Comments Crit Value Called To Crit Value Called By Blood Gas Notified Time Potassium Carbon Dioxide Anion Gap BUN Creatinine Est GFR ( Amer) Est GFR (Non-Af Amer) POC Glucose (mg/dL) 146 H 150 H Random Glucose Calcium Phosphorus Magnesium Total Bilirubin AST ALT Alkaline Phosphatase Total Protein Albumin Globulin Albumin/Globulin Ratio Procalcitonin Arterial Blood Potassium Venous Blood Potassium Stool Occult Blood Blood Type Antibody Screen Crossmatch BBK History Checked Radiology Impressions: Radiology Impressions Chest X-Ray 11/15/18 09:21 IMPRESSION: No active pulmonary disease. Moderate cardiomegaly and pulmonary venous congestion. Stable position of support tubes. EKG/Cardiology Studies: Cardiology / EKG Studies 11/15/18 10:14 EKG [ELECTROCARDIOGRAM] Stat Comment: Reason For Exam: Code Blue Fingerstick Blood Sugar Results: 150 Review of Systems - Review of Systems Systems not reviewed;Unavailable: Intubated Review of Systems: Further ROS unable to be obtained due to clinical condition. Assessment/Plan - Assessment and Plan (Free Text) Assessment: 63 year old male with a PMHx of severely dilated cardiomyopathy EF 14%, moderate pulmonary hypertension, paroxysmal atrial fibrillation, ITP normocytic anemia, DM II, hypertension, pseudogout, anxiety, PVD who was brought in by EMS as he was found pulseness in ventricular fibrillation. Currently sedated on mechanical ventilation. Plan for cardiac cath today. Cardiovascular -Maintain MAP>65, afterload reduction -discontinue amiodarone drip, levophed drip -C/w imdur 30mg po qd, hydralazine 25mg po qid, lipitor 40mg po din, metoprolol tartrate 25mg po bid (all administered via ngt) -S/P cardiac arrest; troponin 25.80 -> 25.40 -> 24 -code freeze completed, initiate rewarming at at increase of no greater than 0.5 degrees per hour -BNP 22,500 -f/u echo -Cardiology consulted - Dr. Saxena. F/U results of cardiac cath -Awaiting PICC line Gastrintestinal -S/p 3u pRBCs with appropriate response -Continue w Protonix BID -Gastrotenterology consulted, Dr Hardy Infectious Disease -r/o HCAP versus urine as source -UA shows large Leukocyte esterase, Urine WBC Tntc, negative nitrate -cxr 11/15/18: * no active pulmonary dz, moderate cardiomegaly and pulmonary venous congestion -patient currently on Doxycycline 100mg ivpb q12, Vancomycin 1g ivpb qd, Zosyn 3.375g ivpb q12 -procal 0.11 -f/u urine cx, sputum cx, mrsa screen -Blood cx neg after 24 hours -ID consulted, Dr Fernandes Neurologic -Patient intubated, sedated on propofol and paralyzed on nimbex - daily sedation vacations, weaning trials -vEEG: severe, non specific diffuse disturbance of cortical activity. This is in keeping with a diffuse hernandez matter dysfunction. No seizures or status presently. -Neurology (Dr. Mcdaniels) consulted for AMS- C/w Keppra 1 g BID -CT head 11/15/18 * CT head 11/14: no acute intracrainal abnormality, chronic lacunar infarctions in right dennison radiata and basal ganglia, mild chronic microangiopathic changes and mild age related global parenchymal volume loss Pulmonary -Maintain O2 sat >95% -Currently on PRVC: FiO2 40%, PEEP 5, RR 25, TV 400 -Improved metabolic acidosis on AB -11/16/18 CXR shows improved aeration with persistent vascular congestion, f/u final read -F/U CXR in AM -Pulmonology consulted, Dr Burr Renal -Maintain euvolemia -Infectious source likely urine -Monitor I&O -Replete hypokalemia - Endocrine -Maintain euvolemia, euglycemia Code Status: DNR temporarily suspended in advance of cath procedure. After procedure is complete, patient will once again have status of DNR. Discussed with patient spouse, who is in agreement. Patient seen, case reviewed and plan approved by Dr. Casanova. Ismael Turner, PGY-1 <Blake Casanova - Last Filed: 11/25/18 08:01> Critical Care Progress Note - Nutrition Nutrition: Nutrition Category Date Time Status NPO Diet [DIET] Diets 11/16/18 Lunch Ordered Attending/Attestation - Attestation I have personally seen and examined this patient.: Yes I have fully participated in the care of the patient.: Yes I have reviewed all pertinent clinical information: Yes Notes (Text): 11/25/18 08:[address] Casanova note
[2018-11-16] MEDS: levETIRAcetam 1000mg/100ml NS 100 ML IV SCH (09:07)
[2018-11-16] MEDS: Vancomycin 1gm in NS 250ml 1 GM/250 ML BAG IVPB SCH (09:09)
[2018-11-16] MEDS: Piperacillin/Tazobact 3.375 gm 100 ML IVPB SCH (09:10)
--- NOTE | 2018-11-16 09:54 | PN ---
DATE: 11/16/2018 SUBJECTIVE: The patient is currently on the ventilator. He is sedated. PHYSICAL EXAMINATION: VITAL SIGNS: Last temperature recorded is 93.7, pulse 55, respiratory rate 16/14, blood pressure 104/68. HEENT: Normocephalic, atraumatic. No JVD. CARDIOVASCULAR: Positive S1, S2. No S3 gallop. LUNGS: Decreased breath sounds at the bases. No rhonchi or wheezing. EXTREMITIES: Minimal edema, no cyanosis, no clubbing. GASTROINTESTINAL: Abdomen is soft, nondistended. Bowel sounds are positive. SKIN: No acute rash. NEUROLOGIC: Exam limited at the present time. PERTINENT LABORATORY DATA: Chest x-ray was last done yesterday and reviewed. There is mild pulmonary vascular congestion noted. There is also moderate cardiomegaly. Arterial blood gas is reordered for this morning-pending. IMPRESSION: 1. Ventricular fibrillation arrest. 2. Respiratory failure. 3. Myocardial infarction. 4. Advanced dilated cardiomyopathy. 5. Anemia. 6. Renal insufficiency. PLAN: The patient is currently on the ventilator. He is sedated. I did discuss the case with the night nurse at length. The night nurse stated that the patient is currently undergoing the FREEZE PROTOCOL. He is expectedly hypothermic. I did review the chest x-ray as above. Findings are noted. I will also order a stat repeat arterial blood gas to be done this morning. I will be called with those results. The patient is currently on an amiodarone drip. He is also on norepinephrine. Cardiology evaluation is noted. The patient is also on antibiotic therapy - as per Infectious Disease. There are no temperatures noted. The leukocytosis is resolving. Input by Renal is also noted. Repeat a.m. labs are pending. The patient remains critically ill with very guarded/poor prognosis. He is currently a DNR status. I will discuss the above with the entire ICU team in the next few moments. I will also discuss the above with the attending physician later this morning. Balta Burr MD MOE
--- NOTE | 2018-11-16 10:08 | PN ---
SUBJECTIVE: The patient was seen and examined at bedside in the CCU. He remains intubated and sedated on hypothermia protocol and remains largely clinically unchanged. OBJECTIVE: VITAL SIGNS: Temperature 92.3, pulse 47, blood pressure 109/71, respiratory rate 20, oxygen saturation 100% on 40% FIO2. GENERAL: Intubated and sedated. HEENT: PERRL, ETT in place. NECK: No JVD. LUNGS: Clear to auscultation anteriorly. CARDIOVASCULAR: Regular rate and rhythm. Normal S1, S2. ABDOMEN: Normoactive bowel sounds, soft, nondistended. EXTREMITIES: Trace pedal edema. NEUROLOGIC: Intubated and sedated. LABORATORY DATA: WBC 12.2 with 91% neutrophils, hemoglobin 9.7, hematocrit 31, platelets 214. Sodium 144, potassium 3.5, chloride 117, bicarb 19, BUN29, creatinine 1.2, glucose 132. AST 66, ALT 18, Alk phos 92. Blood cultures with no growth to date. DIAGNOSTIC STUDIES: 1. EEG demonstrated severe background slowing/attenuation, but no seizures. ASSESSMENT: The patient is a 63-year-old man with multiple medical comorbidities who was admitted to the CCU s/p Vfib arrest. PLAN: 1. V-fib arrest. The patient remains intubated and on vasopressor support. Input from Dr. Chao noted. Continue with care as per CCU team. 2. Ventilator-dependent respiratory failure. Evaluation with Dr. Burr is pending. Continue with care as per CCU team. 3. Altered mental status, etiology likely secondary to toxic metabolic encephalopathy. EEG results reviewed. Evaluation with Dr. Mcdaniels is pending. Continue with care as per #1 and #2. 4. Cardiogenic vs septic shock. Continue with aggressive IV fluid hydration, vasopressor support and care as per #1 and #2. 5. Acute kidney injury. Labs demonstrate stable renal parameters. Input from Dr. Sullivan appreciated. 6. Paroxysmal AFib. 7. Acute on chronic systolic heart failure exacerbation. 8. Normocytic anemia. Input from Dr. Hardy noted. The patient is s/p transfusion of multiple units of PRBCs with satisfactory improvement in his hemoglobin. No evidence of active bleed. Continue with care as per Dr. Hardy. 9. Type 2 diabetes mellitus. 10. Hypertension. 11. Thrombocytopenia secondary to ITP. Labs demonstrate stable platelet count and no evidence of active bleed. 12. Anxiety disorder. 13. Prophylaxis. Continue Protonix for GI prophylaxis and Heparin for DVT prophylaxis. CODE STATUS: DNR. Yassine Martinez MD MTDЮлия
--- NOTE | 2018-11-16 10:44 | RAD ---
Date of service: 11/16/2018 HISTORY: ETT and ngt placement, f/u COMPARISON: 11/15/2018 TECHNIQUE: 1 view obtained. FINDINGS: LUNGS: No active pulmonary disease. PLEURA: No significant pleural effusion identified, no pneumothorax apparent. CARDIOVASCULAR: No aortic atherosclerotic calcification present. Mild cardiomegaly. Mild vascular congestion OSSEOUS STRUCTURES: No significant abnormalities. VISUALIZED UPPER ABDOMEN: Normal. OTHER FINDINGS: Endotracheal and nasogastric tubes are unchanged IMPRESSION: No active disease.
[2018-11-16 12:03] VITALS: BMI 29.1
--- NOTE | 2018-11-16 12:17 | CP.PCM.PN ---
<Lino Valladares - Last Filed: 11/16/18 16:07> Subjective - Date & Time of Evaluation Date of Evaluation: 11/16/18 Time of Evaluation: 09:00 - Subjective Subjective: Infectious disease progress note: Patient seen and examined at bedside. Patient is currently intubated and sedated. No fevers. 12 point ROS unobtainable due to intubation Objective - Vital Signs/Intake and Output Vital Signs (last 24 hours): Temp Pulse Resp BP Pulse Ox 94.3 F L 70 25 H 90/51 L 100 11/16/18 10:00 11/16/18 12:00 11/16/18 10:00 11/16/18 09:07 11/16/18 10:00 Intake and Output: 11/16/18 11/16/18 06:59 18:59 Intake Total 733 187 Output Total 600 Balance 133 187 - Medications Medications: Current Medications Aspirin (Aspirin Chewable) 81 mg PO DAILY [facility] Last Admin: 11/16/18 09:05 Dose: 81 mg Atorvastatin Calcium (Lipitor) 80 mg PO DIN [facility] Last Admin: 11/15/18 17:29 Dose: 80 mg Dextrose (Dextrose 50% Inj) 0 ml IV STAT PRN; Protocol PRN Reason: Hypoglycemia Protocol Hydralazine HCl (Apresoline) 25 mg PO QID [facility] Last Admin: 11/16/18 09:06 Dose: Not Given NOREPINEPHRINE BIT/0.9 % NACL (Levophed 4 Mg/ 250 Ml Ns Premixed) 4 mg in 250 mls @ 15 mls/hr IV .[id number] PRN; Protocol PRN Reason: TITRATE PER MD ORDER Last Titration: 11/14/18 23:11 Dose: 0 mcg/min, 0 mls/hr Sodium Chloride (Sodium Chloride 0.9%) 1,000 mls @ 100 mls/hr IV .Q10H [facility] Last Admin: 11/15/18 06:00 Dose: 100 mls/hr Piperacillin Sod/Tazobactam Sod (Zosyn 3.375 In Ns 100ml) 100 mls @ 25 mls/hr IVPB Q12 [facility]; Protocol Stop: 11/23/18 22:01 Last Admin: 11/16/18 09:10 Dose: 25 mls/hr Vancomycin HCl (Vancomycin 1gm) 1 gm in 250 mls @ 167 mls/hr IVPB DAILY [facility]; Protocol Stop: 11/23/18 10:01 Last Admin: 11/16/18 09:09 Dose: 167 mls/hr Doxycycline Hyclate 100 mg/ (Sodium Chloride) 100 mls @ 100 mls/hr IVPB Q12 [facility]; Protocol Stop: 11/22/18 22:01 Last Admin: 11/16/18 09:42 Dose: 100 mls/hr Cisatracurium Besylate 200 mg/ (Sodium Chloride) 270 mls @ 6.8 mls/hr IV .Q24H PRN; Protocol PRN Reason: TITRATE PER MD ORDER Last Titration: 11/16/18 09:00 Dose: 1 mcg/kg/min, 6.8 mls/hr Propofol (Diprivan) 1,000 mg in 100 mls @ 2.517 mls/hr IV .Q24H PRN; Protocol PRN Reason: TITRATE PER MD ORDER Last Admin: 11/15/18 12:30 Dose: 5 mcg/kg/min, 2.517 mls/hr Dextrose (Dextrose 5% In Water 1000 Ml) 1,000 mls @ 0 mls/hr IV .Q0M PRN; Protocol PRN Reason: Hypoglycemia Protocol Insulin Human Regular 100 (units/ Sodium Chloride) 100 mls @ 3 mls/hr IV .Q24H PRN; Protocol PRN Reason: TITRATE PER MD ORDER Last Titration: 11/16/18 09:00 Dose: 1.5 units/hr, 1.5 mls/hr Isosorbide Mononitrate (Imdur Er) 30 mg PO DAILY [facility] Last Admin: 11/16/18 09:07 Dose: Not Given Metoprolol Tartrate (Lopressor) 25 mg PO BID [facility] Last Admin: 11/16/18 09:07 Dose: Not Given Ondansetron HCl (Zofran Inj) 4 mg IVP Q6H PRN PRN Reason: Nausea/Vomiting Last Admin: 11/15/18 05:03 Dose: 4 mg Pantoprazole Sodium (Protonix Inj) 40 mg IVP Q12 [facility] Last Admin: 11/16/18 09:09 Dose: 40 mg - Labs Labs: 11/16/18 05:30 11/16/18 05:30 PT 14.4 SECONDS (9.4-12.5) H 11/14/18 18:19 INR 1.30 11/14/18 18:19 APTT 43.8 Seconds (26.9-38.3) H 11/16/18 05:30 - Constitutional Appears: No Acute Distress - Head Exam Head Exam: ATRAUMATIC, NORMOCEPHALIC - Eye Exam Eye Exam: PERRL - Respiratory Exam Respiratory Exam: Clear to Ausculation Bilateral. absent: Rales, Wheezes - Cardiovascular Exam Cardiovascular Exam: REGULAR RHYTHM, +S1, +S2 - GI/Abdominal Exam GI & Abdominal Exam: Soft. absent: Tenderness - Extremities Exam Extremities Exam: absent: Calf Tenderness - Skin Skin Exam: Dry, Warm Assessment and Plan - Assessment and Plan (Free Text) Assessment: Respiratory failure - ventilator dependent Status post cardiac arrest likely 2/2 cardiogenic shock Urinary tract infection COPD Hypertension Diabetes mellitus Peripheral vascular disease D/c vancomycin, Zosyn and doxycycline as unlikely septic shock Started on Cefepime for the UTI Follow-up cardiology recommendations, possible cardiac cath today Blood cultures have been negative X 24 hours UA is positive, Follow-up urine culture Procal has been neg Follow-up further ICU recs Continue to monitor for any changes Case and plan to be reviewed and discussed with Dr. Fernandes. <Satya Fernandes - Last Filed: 11/16/18 16:10> Objective - Vital Signs/Intake and Output Vital Signs (last 24 hours): Temp Pulse Resp BP Pulse Ox 94.3 F L 88 25 H 101/67 99 11/16/18 10:00 11/16/18 15:34 11/16/18 10:00 11/16/18 12:15 11/16/18 12:20 Intake and Output: 11/16/18 11/16/18 06:59 18:59 Intake Total 733 261 Output Total 600 Balance 133 261 - Medications Medications: Current Medications Amiodarone HCl (Cordarone) 400 mg PO BRKDIN [facility] Aspirin (Aspirin Chewable) 81 mg PO DAILY [facility] Last Admin: 11/16/18 09:05 Dose: 81 mg Atorvastatin Calcium (Lipitor) 40 mg PO DIN [facility] Clopidogrel Bisulfate (Plavix) 75 mg PO DAILY [facility] Dextrose (Dextrose 50% Inj) 0 ml IV STAT PRN; Protocol PRN Reason: Hypoglycemia Protocol Hydralazine HCl (Apresoline) 25 mg PO QID [facility] Last Admin: 11/16/18 09:06 Dose: Not Given Sodium Chloride (Sodium Chloride 0.9%) 1,000 mls @ 100 mls/hr IV .Q10H [facility] Last Admin: 11/15/18 06:00 Dose: 100 mls/hr Cisatracurium Besylate 200 mg/ (Sodium Chloride) 270 mls @ 6.8 mls/hr IV .Q24H PRN; Protocol PRN Reason: TITRATE PER MD ORDER Last Titration: 11/16/18 11:00 Dose: 2 mcg/kg/min, 13.59 mls/hr Propofol (Diprivan) 1,000 mg in 100 mls @ 2.517 mls/hr IV .Q24H PRN; Protocol PRN Reason: TITRATE PER MD ORDER Last Titration: 11/16/18 09:00 Dose: 10 mcg/kg/min, 5.035 mls/hr Insulin Human Regular 100 (units/ Sodium Chloride) 100 mls @ 3 mls/hr IV .Q24H PRN; Protocol PRN Reason: TITRATE PER MD ORDER Last Titration: 11/16/18 09:00 Dose: 1.5 units/hr, 1.5 mls/hr Heparin Sodium/Sodium Chloride (Heparin 43625 Units/250ml 1/2 Normal Saline) 25,000 units in 250 mls @ 10.427 mls/hr IV .[id number] [facility]; Protocol Eptifibatide (Integrilin) 75 mg in 100 mls @ 13.903 mls/hr IV .Q7H12M [facility]; Protocol Cefepime HCl (Maxipime 1gm) 1 gm in 100 mls @ 100 mls/hr IVPB Q12 [facility]; Protocol Metoprolol Tartrate (Lopressor) 25 mg PO BID [facility] Last Admin: 11/16/18 09:07 Dose: Not Given Ondansetron HCl (Zofran Inj) 4 mg IVP Q6H PRN PRN Reason: Nausea/Vomiting Last Admin: 11/15/18 05:03 Dose: 4 mg Thiamine HCl (Vitamin B1 Inj) 300 mg IM DAILY [facility] - Labs Labs: 11/16/18 05:30 11/16/18 05:30 PT 14.4 SECONDS (9.4-12.5) H 11/14/18 18:19 INR 1.30 11/14/18 18:19 APTT 43.8 Seconds (26.9-38.3) H 11/16/18 05:30 Attending/Attestation - Attestation I have personally seen and examined this patient.: Yes I have fully participated in the care of the patient.: Yes I have reviewed all pertinent clinical information, including history, physical exam and plan: Yes
[2018-11-16] MEDS ORDERED: Lidocaine PF 2% (5 ml) Inj (For Cardiac Arrhy) ONE (12:20)
[2018-11-16] MEDS ORDERED: Iodixanol 320 MG/ML 100 ML BOTTLE IV ONE (12:21)
[2018-11-16] MEDS ORDERED: Iohexol 350mgl/ml 50 ML ONE (12:21)
[2018-11-16] MEDS ORDERED: Iodixanol 320 MG/ML 200 ML BOTTLE IV ONE (12:21)
[2018-11-16] MEDS ORDERED: Thiamine 100 mg/ml Inj IM SCH (12:45)
[2018-11-16] MEDS ORDERED: Eptifibatide 0.75 mg/ml 75 MG/100 ML BAG IV ONE (13:23)
[2018-11-16] MEDS ORDERED: Eptifibatide 20 mg/10mL Inj IVP ONE (13:24)
[2018-11-16] MEDS ORDERED: Nitroglycerin 50mg in D5W 0 MG/0 ML BOTTLE IV ONE (13:50)
--- NOTE | 2018-11-16 14:01 | PN ---
DATE: 11/16/2018 SUBJECTIVE: The patient seen and examined at bedside. He is on Nimbex 2 mcg/kg per minute and propofol 15 mcg/kg per minute. His Train of Four is 2/4 and his BIS is 34. The patient is on heparin drip 12.16 units/kg per hour (after discussion with Dr. Saxena and preparation for the cardiac cath, heparin will be stopped), insulin drip 1 unit per hour. His urine output over last 12 hours was 650 mL. The patient is on PRVC 400/25/5/40%. On that setting, his blood pressure 106/68, end-tidal CO2 of 17, heart rate 50, respiratory rate 25, temperature is 32.4 (we will start warming up the patient at a rate of 0.5 Centigrade per hour once 24 hrs are completed). Of note, EEG showed generalized diffuse slowing but no seizures. PHYSICAL EXAMINATION: VITAL SIGNS: ENT: Head and neck atraumatic. The patient is intubated. LUNGS: Clear to auscultation bilaterally. HEART: Regular rate and rhythm. S1, S2 distant. ABDOMEN: Soft, nontender, nondistended. MUSCULOSKELETAL: No C/C/E. NEUROLOGIC: The patient a sedated (on Nimbex). PSYCHIATRIC: The patient is sedated and he is on neuromuscular blockade. LABORATORY DATA: WBC 12.2, down from 14.2, hemoglobin 9.7 (stable since yesterday), platelet count 214. Sodium 144, potassium 3.5, chloride 117, carbon dioxide 19, BUN 29, creatinine 1.2 (stable), blood glucose 144, AST 66, ALT 18, total bilirubin 0.4. Digoxin level 0.9. Guaiac stool is negative for blood. Influenza negative. Urine is positive for leukocyte esterase but negative for nitrites. MEDICATIONS: Aspirin, Lipitor 80 mg p.o., doxycycline, heparin drip was stopped, hydralazine 25 mg p.o. four times a day, insulin drip, Imdur, Keppra (will be stopped), metoprolol, Nimbex drip, Zofran p.r.n., Protonix 40 mg IV every 12 hours, propofol drip, vancomycin and Zosyn. ASSESSMENT: This is a 63-year-old gentleman with cardiac arrest due to shockable rhythm in the setting of severe biventricular failure, presented to intensive care unit with cardiogenic shock with subsequent taoism of stable hemodynamics and undergoing therapeutic hyperthermia at present time. Neuro: We are starting warming process with 0.5 degree of Centigrade per hour. The patient is on Nimbex and propofol. Keppra will be stopped as there is no seizure identified on continuous EEG. Once the patient is warmed up, Nimbex will be stopped and propofol weaned down to assess the patient's mental status. Pulmonary: We will continue with [id number] tidal volume ventilation with maintaining plateau pressure less than 25 cm of water. Conservative fluid and oxygen management. Once therapeutic hyperthermia completed, we will proceed with sedation vacation and daily weaning trials. Head of bed elevated more than 35 degrees, oral hygiene, deep vein thrombosis and gastrointestinal prophylaxis. Cardiovascular: The patient had ventricular tachycardia/ventricular fibrillation arrest twice during this hospitalization. He is known to have severe biventricular failure and is currently undergoing therapeutic hypothermia protocol. We will continue with heart rate control, the patient is on metoprolol 25 mg p.o. b.i.d. with good heart rate control. We will keep eye on heart rate after hypothermia protocol is completed as hypothermia may cause relative bradycardia. We will continue with afterload reduction. The patient is on hydralazine/isosorbide mononitrate. Propofol and positive pressure ventilation may also provide afterload reduction. Cardiology consult appreciated and once hypothermia protocol completed, the patient will be going for cardiac catheterization with possible percutaneous coronary intervention and balloon pump. Heparin drip will be stopped in anticipation of procedure. The patient is on statins and aspirin. Gastrointestinal: The patient will be n.p.o. except for meds, gastrointestinal prophylaxis. Hypothermia may cause ileus and thus, the patient will be n.p.o. until hypothermia protocol completed. Infectious Disease: The patient's leukocytosis is going down. The patient is on broad-spectrum antibiotics. Peripherally inserted central catheter line will be placed and central venous line will be removed. Blood culture so far negative. Procalcitonin is 0.11 which is very low and argues against ongoing bacterial infection. Infectious Disease consult is appreciated. Endocrine: The patient is on insulin drip and his blood glucose is well controlled. We will maintain euglycemia. Renal: The patient has acute kidney injury likely due to cardiorenal syndrome. Conservative fluid management, maintaining mean arterial pressure more than 65, maintaining euvolemic and euglycemia will be continued. Renal consult is appreciated. We will aim at a goal of more than 0.5 mL/kg per hour for urine output. Heme: Hemoglobin is stable. The patient was on heparin drip; however, it will be stopped in anticipation of PCI. ccm time 40 min Blake Casanova MD MTDD
[2018-11-16] MEDS ORDERED: Heparin25000 units/250ml 1/2NS 25,000 UNITS/250 ML BAG IV ONE (14:47)
[2018-11-16] MEDS: Eptifibatide 0.75 mg/ml 75 MG/100 ML BAG IV SCH ×2 (15:00→18:38)
[2018-11-16] MEDS ORDERED: Heparin25000 units/250ml 1/2NS 25,000 UNITS/250 ML BAG IV SCH (15:00)
--- NOTE | 2018-11-16 15:57 | CON ---
DATE: 11/16/2018 NEUROLOGY CONSULT CHIEF COMPLIANT: Altered mental status. HISTORY OF PRESENT ILLNESS: A 63-year-old man with past medical history of type 2 diabetes mellitus, history of peripheral vascular disease, hypertension, COPD, urinary tract infection, history of thrombocytopenia, history of critical illness polyneuropathy and myopathy back in 07/2018, who was found to have a cardiac arrest, which was V-fib arrest and underwent CPR and return of spontaneous circulation was achieved. At that time, the patient also had severe metabolic acidosis, severe hyperglycemia, and recent respiratory failure. The patient's UA is positive. The patient is on antibiotics vancomycin, Zosyn and doxycycline was called to evaluate. The patient has minimal corneals and limited gag, minimal spontaneous movement of the extremities, does not withdraw or localize to pain. EEG shows diffuse slowing, but no evidence of any epileptiform activity. PAST MEDICAL HISTORY: As above. SOCIAL HISTORY: No illicit drug use, smoking, or EtOH abuse at this time. ALLERGIES: HE IS ALLERGIC . MEDICATIONS: Reviewed by nurse reconciliation sheet. LABORATORY DATA: Sodium is 144, potassium 3.5, chloride 117, carbon dioxide of 19, BUN of 29, creatinine of 1.2, and random glucose of 132. PHYSICAL EXAMINATION: GENERAL: The patient is intubated, on no sedation. VITAL SIGNS: Temperature 94.3, pulse rate of 70, blood pressure 119/51, respirations 25, oxygen saturation 100% on mechanical ventilation. HEENT: Atraumatic and normocephalic. PERRLA. Endotracheal tube in place. LUNGS: Clear to auscultation. No adventitious sounds. HEART: S1 and S2. Normal rate and rhythm. No murmurs, rubs, or gallops. ABDOMEN: Soft, nontender. Nondistended. Bowel sounds presents. EXTREMITIES: No clubbing. No cyanosis. Peripheral pulses are 2+ felt bilaterally. There is trace pedal edema bilaterally. NEUROLOGICAL: The patient is intubated, off sedation. Has minimal corneals bilaterally. Very minimal gag reflex. Rest of cranial nerves II through XII intact. Motor exam; spontaneous movements of the lower extremities as seen, but not the upper. Sensory exam; does not withdraw or localize to noxious stimulus. DTRs are 2+ throughout and one at both knees and ankles. Toes are downgoing bilaterally. Coordination and gait deferred for now. IMPRESSION: A 63-year-old man with history of multiple medical comorbidities in terms of type 2 diabetes mellitus, hypertension, coronary artery disease, peripheral vascular disease, coronary artery disease, history of critical illness polyneuropathy and myopathy in 07/2018, who presented with ventricular fibrillation arrest along with possible septic shock versus cardiogenic shock with poor cerebellar hypoperfusion to the brain with underlying metabolic derangements. Overall, altered mental status is secondary to transient cerebellar hypoperfusion and transient hypoxemia to the brain without underlying metabolic derangements encephalopathy. At this time, prognosis is guarded. RECOMMENDATIONS: 1. Monitor electrolytes and correct accordingly. 2. Acute systolic blood pressure, 120s to 130s systolic and diastolic 70s to 80s to provide better perfusion to the brain. 3. Electroencephalogram showed no evidence of any seizure-like activity, therefore no antiepileptic drugs are needed. It is diffuse still and is consistent with encephalopathy seen. 4. Continue with broad spectrum antibiotics as per ID. 5. Continue ICU management, and we will give 300 mg of IV thiamine daily. Thank you for this consult. Edis Mcdaniels MD
--- NOTE | 2018-11-16 16:40 | CARD ---
APPROVED REPORT Date of service: 11/16/2018 EXAM: Two-dimensional and M-mode echocardiogram with Doppler and color Doppler. INDICATION CARDIAC AAREST 2D DIMENSIONS Left Atrium (2D)6.0 (1.6-4.0cm)IVSd1.2 (0.7-1.1cm) LVDd6.5 (3.9-5.9cm)PWd1.3 (0.7-1.1cm) LVDs5.8 (2.5-4.0cm)FS (%) 12.1 % LVEF (%)25.6 (>50%) M-Mode DIMENSIONS Aortic Root4.20 (2.2-3.7cm)Aortic Cusp Exc.2.10 (1.5-2.0cm) Aortic Valve AoV Peak Epttuxwy169.0cm/Robson Peak GR.5mmHg Mitral Valve E/A ratio0.0 TDI E/Lateral E'0.0E/Medial E'0.0 Pulmonary Valve PV Peak Yguagwug49.4cm/sPV Peak Grad.1mmHg Tricuspid Valve TR Peak [id number]/sRAP [id number] Peak Gr.57mmHg [id number] LEFT VENTRICLE The Left Ventricle is moderately dilated. There is normal left ventricular wall thickness. The systolic function is severely impaired. Significant regional wall motion abnormalities noted. No left ventricle thrombus noted on this study. RIGHT VENTRICLE The right ventricle is moderately dilated. There is normal right ventricular wall thickness. RV Systolic function is severely reduced. ATRIA The left atrium is severely dilated. The right atrium is moderately dilated. AORTIC VALVE The aortic valve is moderately thickened. There is mild aortic regurgitation. MITRAL VALVE The mitral valve is moderately thickened. Mitral regurgitation is moderate to severe. There is no mitral valve stenosis. TRICUSPID VALVE There is moderate to severe tricuspid regurgitation. There is severe pulmonary hypertension. PULMONIC VALVE There is no pulmonic valvular regurgitation. GREAT VESSELS The aortic root is moderately enlarged. The IVC is dilated. The IVC collapses <50% with inspiration. PERICARDIAL EFFUSION There is small pleural effusion. There is a trace pericardial effusion. <Conclusion> The Left Ventricle is moderately dilated. There is normal left ventricular wall thickness. The systolic function is severely impaired. Significant regional wall motion abnormalities noted. No left ventricle thrombus noted on this study. RV Systolic function is severely reduced. There is mild aortic regurgitation. Mitral regurgitation is moderate to severe. There is moderate to severe tricuspid regurgitation. There is severe pulmonary hypertension.
[2018-11-16] MEDS ORDERED: Dexmedetomidine 400mcg/100mL 400 MCG/100 ML BOTTLE IV PRN (17:18)
--- NOTE | 2018-11-16 19:26 | CARD ---
APPROVED REPORT Date of service: 11/16/2018 EKG Measurement Heart [id number] <Conclusion> Normal sinus rhythm Nonspecific intraventricular block ST-T wave abnormaliies diffusely Abnormal ECG
--- NOTE | 2018-11-16 19:30 | CARD ---
APPROVED REPORT Date of service: 11/16/2018 EKG Measurement Heart [id number] <Conclusion> Sinus rhythm with occasional premature ventricular complexes Nonspecific intraventricular block Cannot rule out Septal infarct, age undetermined ST-T wave abnormalities diffusely Low voltage standard leads Abnormal ECG
--- NOTE | 2018-11-16 19:55 | CARDCATH ---
PROCEDURE DATE: 11/16/2018 HISTORY: The patient is a 63-year-old male who presented with V-fib arrest. 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 Because of his ongoing hemodynamic instability, the patient was brought to the cardiac catheterization technologist to evaluate his coronary arteries. In the cardiac catheterization technologist, a [facility] was called. PROCEDURE: Emergency cardiac catheterization and percutaneous transluminal coronary angioplasty and stent. The right femoral artery was cannulated with 6-[place] sheath. There were no complications. During the emergency catheterization, the patient was on a ventilator. Initial hemodynamic data revealed central aortic pressure of 90/60. His coronary anatomy revealed a left main artery that revealed intimal irregularities. The circumflex artery was occluded in its proximal portion. The LAD revealed a long 80% to 90% stenoses from the mid to distal portion. The RCA appeared chronically occluded. Supraaortic valvular injection revealed no aortic insufficiency. There was heavy calcification in his coronary arteries. The patient was started on intravenous Integrilin as well as IV heparin. The guiding catheter was placed in the ostium of the left main artery and 0.014 ATW wire was used to cross the total occlusion of the circumflex artery. Multiple balloon inflations were performed followed by implantation of 3.5 long stent, which covers the long area of diffuse disease and occlusion. Repeat coronary arteriography revealed KRISTYN-III flow down the circumflex artery with no residual stenoses. The wire was then brought back and placed into the LAD. Using the guideline for extra support, two long stents, which were drug-eluting stents, were placed in the critical lesions in the LAD. Repeat coronary arteriography revealed an excellent result with no residual stenosis and KRISTYN-III flow. This was then exchanged for a guiding catheter of the RCA. Attempts at crossing the RCA were unsuccessful. There appears the artery was heavily calcified and appeared to be chronically occluded. LV function revealed a diffusely dilated and hypokinetic LV with an EF of approximately 15%. Supraaortic valvular injection revealed no aortic insufficiency. This was all done through the left femoral artery. The sheath was then exchanged for intra-aortic balloon pump sheath. A balloon pump was placed in the descending aorta. After initiating a balloon pump, the mean pressure in the cardiac catheterization technologist was over 75 mmHg. The patient tolerated the procedure well. Doppler pulse was felt after balloon pump placement. The patient was transferred to the ICU in improved and relatively stable, but critical condition. In summary, the procedure was an emergency cardiac catheterization with successful PTCA and stent of an LAD, an occluded circumflex artery, an attempted but unsuccessful PTCA of chronically occluded RCA. The stents use were drug-eluting stents. LV function was severely compromised with an EF of under 20%. Supraaortic valvular injection revealed no aortic insufficiency. Cardiac catheterization revealed severe triple-vessel CAD. Given these findings, we will maintain the patient on intravenous Integrilin. We will continue IV heparin and we will maintain the patient on intra-aortic balloon pump for the next 24 to 48 hours. Benjamin Saxena MD
[2018-11-16] MEDS: Cefepime 1gm in NS 100ml 1 GM/100 ML BAG IVPB SCH (21:31)
--- NOTE | 2018-11-16 21:57 | PN ---
DATE: 11/16/2018 SUBJECTIVE: The patient is seen lying in bed in the ICU. is at bedside. The patient remains on mechanical ventilation. He also remains on Nimbex 2 mcg/kg/min and propofol 15 mcg/kg/min. He is also on heparin drip at units/kg. He is scheduled for a cardiac cath today. He is on an insulin drip at 1 unit per hour. EEG showed diffuse slowing, but no seizures. PHYSICAL EXAMINATION: GENERAL: Elderly male lying in bed. VITAL SIGNS: Blood pressure 103/69, heart rate 89, respiratory rate 25, and temperature 95.4. NECK: Supple. No JVD. LUNGS: Bilateral equal air entry, bilateral rhonchi. No rales appreciated. CARDIAC: S1 and S2. Regular rate and rhythm. No murmur. No rub. ABDOMEN: Obese, distended, soft, and nontender. Bowel sounds present. EXTREMITIES: Chronic stasis changes, chronic hyperpigmentation, trace edema. INTAKE AND OUTPUT: 2578/1250. LABORATORY DATA: WBC 12.2, hemoglobin 9.7, hematocrit 31, and platelets 214. Sodium 144, potassium 3.5, chloride 117, CO2 of 19, BUN 29, creatinine 1.2, glucose 132, calcium 7.7, phosphorus 4.4, and magnesium 1.7. AST 66 and ALT 18. Albumin 2.9. Urine culture, Gram-negative zachariah. Echocardiogram, moderately dilated left ventricle, normal left ventricular wall thickness, severely impaired systolic function, significant regional wall abnormalities, no left ventricular thrombus, and severely reduced right ventricular systolic function. CURRENT MEDICATIONS: Apresoline 25 q.i.d., amiodarone 400, heparin 12 units/kg/minute, Lipitor 40, Lopressor 25 b.i.d., cefepime 1 g, Plavix 75, normal saline at 100, and Zofran. ASSESSMENT: 1. Cardiac arrest due to acute myocardial infarction in the setting of biventricular failure with cardiogenic shock. 2. Therapeutic hypothermia. 3. Respiratory failure. 4. Status post ventricular tachycardia, in hospital cardiac arrest x2. 5. Gastrointestinal bleed. 6. Chronic kidney disease stage III. 7. Noninsulin-dependent diabetes mellitus. 8. Recent hospitalization with severe sepsis, pneumonia, respiratory failure, critical illness polyneuropathy, acute kidney injury. PLAN: 1. Agree with plan for cardiac catheterization. 2. Continue aggressive management. 3. Discussed with at length at bedside. 4. Renal parameters are stable right now. 5. Avoid nephrotoxins. 6. Monitor blood sugars and maintain euglycemia. 7. Remains critically ill. 8. Prognosis is extremely guarded. 9. Discussed with Dr. Casanova and ICU residents. More than 35 minutes are spent in the care coordination of this critically ill patient. Bobbi Sullivan MD
[2018-11-16] MEDS: Insulin Reg-MEDIUM-Coverage SC SCH (22:16)
[2018-11-17] MEDS: Eptifibatide 0.75 mg/ml 75 MG/100 ML BAG IV SCH (01:40)
[2018-11-17 06:08] LABS: BASO # 0.04 K/mm3 (0.0-2.0); BASO % 0.4 % (0.0-3.0); EOS # 0.1 (0.0-0.7); EOS % 1.2 % (1.5-5.0); HEMOGLOBIN 9.2 g/dL (14.0-18.0); LYMPH # 0.3 (1.2-3.4); LYMPH % 3.3 % (22.0-35.0); MEAN CELL VOLUME 83.4 fl (80.0-105.0); MEAN CORPUSCULAR HEMOGLOBIN 26.4 pg (25.0-35.0); MEAN CORPUSCULAR HGB CONC 31.6 g/dl (31.0-37.0); MEAN PLATELET VOLUME 10.8 fl (7.0-11.0); MONO # 0.2 (0.1-0.6); MONO % 2.3 % (1.0-6.0); RBC 3.49 10^6/uL (3.5-6.1); RED CELL DISTRIBUTION WIDTH 16.5 % (11.5-14.5); WHITE BLOOD COUNT 9.9 10^3/uL (4.5-11.0)
[2018-11-17 06:33] LABS: ARTERIAL BLOOD GAS HCO3 14.5 mmol/L (21-28); ARTERIAL BLOOD GAS HEMOGLOBIN 8.9 g/dL (11.7-17.4); ARTERIAL BLOOD GAS O2 CAPACITY 12.7 mL/dl (16-24); ARTERIAL BLOOD GAS O2 CONTENT 12.6 ML/dl (15-23); ARTERIAL BLOOD GAS O2 SAT 99.5 % (95-98); ARTERIAL BLOOD GAS PCO2 24 mm/Hg (35-45); ARTERIAL BLOOD GAS PH 7.39 (7.35-7.45); ARTERIAL BLOOD GAS TCO2 15.2 mmol.L (22-28)
[2018-11-17 07:11] LABS: ALB/GLOB RATIO 0.8 (1.1-1.8); ALBUMIN 2.7 g/dL (3.0-4.8); ALT/SGPT 22 U/L (7-56); AST/SGOT 66 U/L (17-59); BLOOD UREA NITROGEN 23 mg/dL (7-21); CALCIUM 7.8 mg/dL (8.4-10.5); GFR NON-AFRICAN AMERICAN > 60
[2018-11-17] MEDS: Insulin Reg-MEDIUM-Coverage SC SCH ×4 (07:45→22:01)
--- NOTE | 2018-11-17 07:49 | CP.CCUPN ---
<Ismael Turner - Last Filed: 11/17/18 11:37> CCU Subjective - Physician Review Subjective (Free Text): Ismael Turner PGY-1 Critical Care Progress Note Patient seen and evaluated at bedside. No acute events reported overnight. Currently intubated, currently off sedation. Patient opens eyes spontaneously and responds to painful stimuli. Further ROS unable to be obtained due to clinical condition. S/p cardiac catheterization, with intraaortic balloon pump. CCU Objective - Vital Signs / Intake & Output Vital Signs (Last 4 hours): Vital Signs Temp Pulse Resp BP Pulse Ox 11/17/18 07:28 6 L 11/17/18 07:20 99.1 F 99 H 100 11/17/18 07:15 99.0 F 100 H 126/57 L 100 11/17/18 07:10 99.0 F 102 H 100 11/17/18 07:00 99.0 F 102 H 131/81 100 11/17/18 06:51 99.0 F 100 H 118/59 L 100 11/17/18 06:50 99.0 F 100 H 100 11/17/18 06:45 99.0 F 98 H 132/102 H 100 11/17/18 06:40 99.0 F 94 H 100 11/17/18 06:30 99.0 F 98 H 125/92 H 100 11/17/18 06:20 99.1 F 100 H 100 11/17/18 06:15 99.1 F 97 H 126/95 H 100 11/17/18 06:10 99.1 F 97 H 100 11/17/18 06:01 99.1 F 97 H 114/57 L 100 11/17/18 06:00 99.1 F 99 H 23 114/57 L 100 11/17/18 05:50 99.3 F 98 H 100 11/17/18 05:46 99.3 F 100 H 120/59 L 100 11/17/18 05:40 99.3 F 98 H 100 11/17/18 05:30 99.1 F 99 H 119/55 L 100 11/17/18 05:25 98.4 F 101 H 11/17/18 05:24 99.0 F 93 H 11/17/18 05:23 98.4 F 100 H 11/17/18 05:22 99.1 F 100 H 11/17/18 05:21 99.1 F 96 H 11/17/18 05:20 99.3 F 95 H 11/17/18 05:19 99.1 F 94 H 11/17/18 05:18 99.3 F 95 H 11/17/18 05:17 99.5 F 93 H 11/17/18 05:16 99.3 F 95 H 11/17/18 05:15 123/61 11/17/18 05:14 99.1 F 95 H 11/17/18 05:13 99.5 F 94 H 11/17/18 05:12 99.5 F 96 H 11/17/18 05:11 99.5 F 96 H 11/17/18 05:10 99.3 F 95 H 11/17/18 05:09 99.3 F 96 H 11/17/18 05:08 99.3 F 96 H 11/17/18 05:07 99.3 F 96 H 11/17/18 05:06 99.3 F 95 H 11/17/18 05:05 99.3 F 97 H 11/17/18 05:04 99.3 F 97 H 11/17/18 05:03 99.3 F 94 H 11/17/18 05:00 97 H 11/17/18 03:58 97 H Intake and Output (Last 8hrs): Intake & Output 11/16/18 11/17/18 11/17/18 22:59 06:59 14:59 Intake Total 769 783 Output Total 350 900 Balance 419 -117 Weight 83.416 kg Intake: IV 769 258 Heparin 100 Integrilin 158 Left Antecubital 65 Right Femoral 567 Oral 0 Tube Feeding 0 TPN/PPN 0 Blood Product 0 Lipid 0 Albumin 0 Other 525 Output: Urine 350 900 Urethral (Ash) 350 900 Stool 0 Urine/Stool Mix 0 Emesis 0 Oral Regurgitation 0 Other 0 Other: # Voids Urethral (Ash) 0 # Bowel Movements 1 - Physical Exam Head: Positive for: Atraumatic, Normocephalic Pupils: Positive for: PERRL, Other (2mm, reactive) Conjunctiva: Positive for: Normal Mouth: Positive for: Moist Mucous Membranes, Other (ETT and OGT in place) Neck: Positive for: Trachea Midline. Negative for: JVD, Lymphadenopathy Respiratory/Chest: Positive for: Clear to Auscultation, Good Air Exchange. Negative for: Respiratory Distress, Accessory Muscle Use Cardiovascular: Positive for: Normal S1, S2. Negative for: Murmurs Abdomen: Positive for: Normal Bowel Sounds. Negative for: Tenderness Rectal: Positive for: Other (Guaiac +, black stools. GI bleed. ITPE.) Genitourinary Male: Positive for: Other (R femoral TLC in place, balloon pump in L femoral) Back: Positive for: Normal Inspection Upper Extremity: Positive for: Normal Inspection. Negative for: Cyanosis, Edema Lower Extremity: Positive for: Normal Inspection. Negative for: Edema Neurological: Positive for: Other (corneal and gag reflex present, withdraws to painful stimuli) Skin: Positive for: Warm, Dry, Pale. Negative for: Rashes Psychiatric: Negative for: Alert - Medications Active Medications: Active Medications Generic Name Dose Route Start Last Admin Trade Name Freq PRN Reason Stop Dose Admin Amiodarone HCl 400 mg 11/16/18 17:00 11/16/18 17:23 Cordarone PO 400 mg BRKDIN JHON Administration Aspirin 81 mg 11/15/18 16:45 11/16/18 09:05 Aspirin Chewable PO 81 mg DAILY JHON Administration Atorvastatin Calcium 40 mg 11/16/18 14:50 11/16/18 17:23 Lipitor PO 40 mg DIN JHON Administration Clopidogrel Bisulfate 75 mg 11/17/18 10:00 Plavix PO DAILY JHON Dextrose 0 ml 11/15/18 16:18 Dextrose 50% Inj IV STAT PRN Hypoglycemia Protocol Protocol Hydralazine HCl 25 mg 11/15/18 10:00 11/16/18 22:07 Apresoline PO Not Given QID JHON Sodium Chloride 1,000 mls @ 100 mls/hr 11/14/18 19:00 11/15/18 06:00 Sodium Chloride 0.9% IV 100 mls/hr .Q10H JHON Administration Cisatracurium Besylate 200 mg/ 270 mls @ 6.8 mls/hr 11/15/18 10:44 11/16/18 15:15 Sodium Chloride IV 0 mcg/kg/min .Q24H PRN 0 mls/hr TITRATE PER MD ORDER Titration Protocol 1 MCG/KG/MIN Propofol 1,000 mg in 100 mls @ 2.517 mls/hr 11/15/18 12:11 11/16/18 17:00 Diprivan IV 0 mcg/kg/min .Q24H PRN 0 mls/hr TITRATE PER MD ORDER Titration Protocol 5 MCG/KG/MIN Heparin Sodium/Sodium Chloride 25,000 units in 250 mls @ 10.427 mls/hr 11/16/18 15:00 11/16/18 22:34 Heparin 35728 Units/250ml 1/2 Normal Saline IV 14 units/kg/hr .[id number] JHON 12.165 mls/hr Titration Protocol 12 UNITS/KG/HR Eptifibatide 75 mg in 100 mls @ 13.903 mls/hr 11/16/18 15:15 11/17/18 01:40 Integrilin IV 13.903 mls/hr .Q7H12M JHON Administration Protocol 2 MCG/KG/MIN Cefepime HCl 1 gm in 100 mls @ 100 mls/hr 11/16/18 22:00 11/16/18 21:31 Maxipime 1gm IVPB 100 mls/hr Q12 JHON Administration Protocol Dexmedetomidine HCl 400 mcg in 100 mls @ 4.345 mls/hr 11/16/18 17:18 Precedex 400mcg/100ml IV .Q23H1M PRN Agitation Protocol 0.2 MCG/KG/HR Insulin Human Regular 0 units 11/16/18 22:00 11/16/18 22:16 Humulin R Med SC Not Given ACHS [facility] Protocol Metoprolol Tartrate 25 mg 11/15/18 10:00 11/16/18 17:25 Lopressor PO Not Given BID [facility] Ondansetron HCl 4 mg 11/15/18 04:15 11/15/18 05:03 Zofran Inj IVP 4 mg Q6H PRN Administration Nausea/Vomiting Thiamine HCl 300 mg 11/16/18 17:00 11/16/18 17:24 Vitamin B1 Tab NG 300 mg DAILY JHON Administration - Patient Studies Lab Studies: Microbiology Studies 11/14/18 18:49 Blood Culture - Preliminary Blood NO GROWTH AFTER 48 HOURS 11/14/18 18:19 Blood Culture - Preliminary Blood NO GROWTH AFTER 48 HOURS 11/14/18 19:00 Urine Culture - Preliminary Urine Random Gram Negative [facility] Studies 11/17/18 11/17/18 11/17/18 Range/Units 07:21 06:00 05:45 WBC (4.5-11.0) 10^3/uL RBC (3.5-6.1) 10^6/uL Hgb (14.0-18.0) g/dL Hct (42.0-52.0) % MCV (80.0-105.0) fl MCH (25.0-35.0) pg MCHC (31.0-37.0) g/dl RDW (11.5-14.5) % Plt Count (120.0-450.0) 10^3/uL MPV (7.0-11.0) fl Neut % (Auto) (50.0-68.0) % Lymph % (Auto) (22.0-35.0) % [place] % (Auto) (1.0-6.0) % Eos % (Auto) (1.5-5.0) % Baso % (Auto) (0.0-3.0) % Lymph # (Auto) (1.2-3.4) [place] # (Auto) (0.1-0.6) Eos # (Auto) (0.0-0.7) Baso # (Auto) (0.0-2.0) K/mm3 Absolute Neuts (auto) (1.4-6.5) APTT 51.1 H (26.9-38.3) Seconds pCO2 24 L (35-45) mm/Hg pO2 176.0 H (80-100) mm/Hg HCO3 14.5 L (21-28) mmol/L ABG pH 7.39 (7.35-7.45) ABG Total CO2 15.2 L (22-28) mmol.L ABG O2 Saturation 99.5 H (95-98) % ABG O2 Content 12.6 L (15-23) ML/dl ABG Base Excess -9.2 L (-2.0-3.0) mmol/L ABG Hemoglobin 8.9 L (11.7-17.4) g/dL ABG Carboxyhemoglobin 1.3 (0.5-1.5) % POC ABG HHb (Measured) 0.5 (0-5) % ABG Methemoglobin 1.1 (0.0-3.0) % ABG O2 Capacity 12.7 L (16-24) mL/dl Hgb O2 Saturation 97.1 (95.0-98.0) % FiO2 40.0 % Sodium (132-148) mmol/L Potassium (3.6-5.0) mmol/L Chloride (98-107) mmol/L Carbon Dioxide (21-33) mmol/L Anion Gap (10-20) BUN (7-21) mg/dL Creatinine (0.8-1.5) mg/dl Est GFR ( Amer) Est GFR (Non-Af Amer) POC Glucose (mg/dL) 149 H (65-110) mg/dL Random Glucose (70-110) mg/dL Calcium (8.4-10.5) mg/dL Phosphorus (2.5-4.5) mg/dL Magnesium (1.7-2.2) mg/dL Total Bilirubin (0.2-1.3) mg/dL AST (17-59) U/L ALT (7-56) U/L Alkaline Phosphatase (38-126) U/L Total Protein (5.8-8.3) g/dL Albumin (3.0-4.8) g/dL Globulin gm/dL Albumin/Globulin Ratio (1.1-1.8) 11/17/18 11/17/18 11/16/18 Range/Units 05:45 05:45 22:13 WBC 9.9 (4.5-11.0) 10^3/uL RBC 3.49 L (3.5-6.1) 10^6/uL Hgb 9.2 L (14.0-18.0) g/dL Hct 29.1 L (42.0-52.0) % MCV 83.4 (80.0-105.0) fl MCH 26.4 (25.0-35.0) pg MCHC 31.6 (31.0-37.0) g/dl RDW 16.5 H (11.5-14.5) % Plt Count 196 (120.0-450.0) 10^3/uL MPV 10.8 (7.0-11.0) fl Neut % (Auto) 92.8 H (50.0-68.0) % Lymph % (Auto) 3.3 L (22.0-35.0) % [place] % (Auto) 2.3 (1.0-6.0) % Eos % (Auto) 1.2 L (1.5-5.0) % Baso % (Auto) 0.4 (0.0-3.0) % Lymph # (Auto) 0.3 L (1.2-3.4) [place] # (Auto) 0.2 (0.1-0.6) Eos # (Auto) 0.1 (0.0-0.7) Baso # (Auto) 0.04 (0.0-2.0) K/mm3 Absolute Neuts (auto) 9.15 H (1.4-6.5) APTT (26.9-38.3) Seconds pCO2 (35-45) mm/Hg pO2 (80-100) mm/Hg HCO3 (21-28) mmol/L ABG pH (7.35-7.45) ABG Total CO2 (22-28) mmol.L ABG O2 Saturation (95-98) % ABG O2 Content (15-23) ML/dl ABG Base Excess (-2.0-3.0) mmol/L ABG Hemoglobin (11.7-17.4) g/dL ABG Carboxyhemoglobin (0.5-1.5) % POC ABG HHb (Measured) (0-5) % ABG Methemoglobin (0.0-3.0) % ABG O2 Capacity (16-24) mL/dl Hgb O2 Saturation (95.0-98.0) % FiO2 % Sodium 145 (132-148) mmol/L Potassium 3.4 L (3.6-5.0) mmol/L Chloride 120 H (98-107) mmol/L Carbon Dioxide 18 L (21-33) mmol/L Anion Gap 11 (10-20) BUN 23 H (7-21) mg/dL Creatinine 1.2 (0.8-1.5) mg/dl Est GFR ( Amer) > 60 Est GFR (Non-Af Amer) > 60 POC Glucose (mg/dL) 152 H (65-110) mg/dL Random Glucose 131 H (70-110) mg/dL Calcium 7.8 L (8.4-10.5) mg/dL Phosphorus 3.5 (2.5-4.5) mg/dL Magnesium 1.6 L (1.7-2.2) mg/dL Total Bilirubin 0.4 (0.2-1.3) mg/dL AST 66 H (17-59) U/L ALT 22 (7-56) U/L Alkaline Phosphatase 81 (38-126) U/L Total Protein 6.1 (5.8-8.3) g/dL Albumin 2.7 L (3.0-4.8) g/dL Globulin 3.4 gm/dL Albumin/Globulin Ratio 0.8 L (1.1-1.8) 11/16/18 11/16/18 11/16/18 Range/Units 21:09 18:02 16:00 WBC (4.5-11.0) 10^3/uL RBC (3.5-6.1) 10^6/uL Hgb (14.0-18.0) g/dL Hct (42.0-52.0) % MCV (80.0-105.0) fl MCH (25.0-35.0) pg MCHC (31.0-37.0) g/dl RDW (11.5-14.5) % Plt Count (120.0-450.0) 10^3/uL MPV (7.0-11.0) fl Neut % (Auto) (50.0-68.0) % Lymph % (Auto) (22.0-35.0) % [place] % (Auto) (1.0-6.0) % Eos % (Auto) (1.5-5.0) % Baso % (Auto) (0.0-3.0) % Lymph # (Auto) (1.2-3.4) [place] # (Auto) (0.1-0.6) Eos # (Auto) (0.0-0.7) Baso # (Auto) (0.0-2.0) K/mm3 Absolute Neuts (auto) (1.4-6.5) APTT 38.5 H (26.9-38.3) Seconds pCO2 (35-45) mm/Hg pO2 (80-100) mm/Hg HCO3 (21-28) mmol/L ABG pH (7.35-7.45) ABG Total CO2 (22-28) mmol.L ABG O2 Saturation (95-98) % ABG O2 Content (15-23) ML/dl ABG Base Excess (-2.0-3.0) mmol/L ABG Hemoglobin (11.7-17.4) g/dL ABG Carboxyhemoglobin (0.5-1.5) % POC ABG HHb (Measured) (0-5) % ABG Methemoglobin (0.0-3.0) % ABG O2 Capacity (16-24) mL/dl Hgb O2 Saturation (95.0-98.0) % FiO2 % Sodium (132-148) mmol/L Potassium (3.6-5.0) mmol/L Chloride (98-107) mmol/L Carbon Dioxide (21-33) mmol/L Anion Gap (10-20) BUN (7-21) mg/dL Creatinine (0.8-1.5) mg/dl Est GFR ( Amer) Est GFR (Non-Af Amer) POC Glucose (mg/dL) 140 H 135 H (65-110) mg/dL Random Glucose (70-110) mg/dL Calcium (8.4-10.5) mg/dL Phosphorus (2.5-4.5) mg/dL Magnesium (1.7-2.2) mg/dL Total Bilirubin (0.2-1.3) mg/dL AST (17-59) U/L ALT (7-56) U/L Alkaline Phosphatase (38-126) U/L Total Protein (5.8-8.3) g/dL Albumin (3.0-4.8) g/dL Globulin gm/dL Albumin/Globulin Ratio (1.1-1.8) 11/16/18 11/16/18 11/16/18 Range/Units 15:07 11:53 10:58 WBC (4.5-11.0) 10^3/uL RBC (3.5-6.1) 10^6/uL Hgb (14.0-18.0) g/dL Hct (42.0-52.0) % MCV (80.0-105.0) fl MCH (25.0-35.0) pg MCHC (31.0-37.0) g/dl RDW (11.5-14.5) % Plt Count (120.0-450.0) 10^3/uL MPV (7.0-11.0) fl Neut % (Auto) (50.0-68.0) % Lymph % (Auto) (22.0-35.0) % [place] % (Auto) (1.0-6.0) % Eos % (Auto) (1.5-5.0) % Baso % (Auto) (0.0-3.0) % Lymph # (Auto) (1.2-3.4) [place] # (Auto) (0.1-0.6) Eos # (Auto) (0.0-0.7) Baso # (Auto) (0.0-2.0) K/mm3 Absolute Neuts (auto) (1.4-6.5) APTT (26.9-38.3) Seconds pCO2 (35-45) mm/Hg pO2 (80-100) mm/Hg HCO3 (21-28) mmol/L ABG pH (7.35-7.45) ABG Total CO2 (22-28) mmol.L ABG O2 Saturation (95-98) % ABG O2 Content (15-23) ML/dl ABG Base Excess (-2.0-3.0) mmol/L ABG Hemoglobin (11.7-17.4) g/dL ABG Carboxyhemoglobin (0.5-1.5) % POC ABG HHb (Measured) (0-5) % ABG Methemoglobin (0.0-3.0) % ABG O2 Capacity (16-24) mL/dl Hgb O2 Saturation (95.0-98.0) % FiO2 % Sodium (132-148) mmol/L Potassium (3.6-5.0) mmol/L Chloride (98-107) mmol/L Carbon Dioxide (21-33) mmol/L Anion Gap (10-20) BUN (7-21) mg/dL Creatinine (0.8-1.5) mg/dl Est GFR ( Amer) Est GFR (Non-Af Amer) POC Glucose (mg/dL) 126 H 127 H 132 H (65-110) mg/dL Random Glucose (70-110) mg/dL Calcium (8.4-10.5) mg/dL Phosphorus (2.5-4.5) mg/dL Magnesium (1.7-2.2) mg/dL Total Bilirubin (0.2-1.3) mg/dL AST (17-59) U/L ALT (7-56) U/L Alkaline Phosphatase (38-126) U/L Total Protein (5.8-8.3) g/dL Albumin (3.0-4.8) g/dL Globulin gm/dL Albumin/Globulin Ratio (1.1-1.8) 11/16/18 11/16/18 11/16/18 Range/Units 09:47 08:52 07:58 WBC (4.5-11.0) 10^3/uL RBC (3.5-6.1) 10^6/uL Hgb (14.0-18.0) g/dL Hct (42.0-52.0) % MCV (80.0-105.0) fl MCH (25.0-35.0) pg MCHC (31.0-37.0) g/dl RDW (11.5-14.5) % Plt Count (120.0-450.0) 10^3/uL MPV (7.0-11.0) fl Neut % (Auto) (50.0-68.0) % Lymph % (Auto) (22.0-35.0) % [place] % (Auto) (1.0-6.0) % Eos % (Auto) (1.5-5.0) % Baso % (Auto) (0.0-3.0) % Lymph # (Auto) (1.2-3.4) [place] # (Auto) (0.1-0.6) Eos # (Auto) (0.0-0.7) Baso # (Auto) (0.0-2.0) K/mm3 Absolute Neuts (auto) (1.4-6.5) APTT (26.9-38.3) Seconds pCO2 (35-45) mm/Hg pO2 (80-100) mm/Hg HCO3 (21-28) mmol/L ABG pH (7.35-7.45) ABG Total CO2 (22-28) mmol.L ABG O2 Saturation (95-98) % ABG O2 Content (15-23) ML/dl ABG Base Excess (-2.0-3.0) mmol/L ABG Hemoglobin (11.7-17.4) g/dL ABG Carboxyhemoglobin (0.5-1.5) % POC ABG HHb (Measured) (0-5) % ABG Methemoglobin (0.0-3.0) % ABG O2 Capacity (16-24) mL/dl Hgb O2 Saturation (95.0-98.0) % FiO2 % Sodium (132-148) mmol/L Potassium (3.6-5.0) mmol/L Chloride (98-107) mmol/L Carbon Dioxide (21-33) mmol/L Anion Gap (10-20) BUN (7-21) mg/dL Creatinine (0.8-1.5) mg/dl Est GFR ( Amer) Est GFR (Non-Af Amer) POC Glucose (mg/dL) 138 H 144 H 162 H (65-110) mg/dL Random Glucose (70-110) mg/dL Calcium (8.4-10.5) mg/dL Phosphorus (2.5-4.5) mg/dL Magnesium (1.7-2.2) mg/dL Total Bilirubin (0.2-1.3) mg/dL AST (17-59) U/L ALT (7-56) U/L Alkaline Phosphatase (38-126) U/L Total Protein (5.8-8.3) g/dL Albumin (3.0-4.8) g/dL Globulin gm/dL Albumin/Globulin Ratio (1.1-1.8) 11/16/18 Range/Units 07:40 WBC (4.5-11.0) 10^3/uL RBC (3.5-6.1) 10^6/uL Hgb (14.0-18.0) g/dL Hct (42.0-52.0) % MCV (80.0-105.0) fl MCH (25.0-35.0) pg MCHC (31.0-37.0) g/dl RDW (11.5-14.5) % Plt Count (120.0-450.0) 10^3/uL MPV (7.0-11.0) fl Neut % (Auto) (50.0-68.0) % Lymph % (Auto) (22.0-35.0) % [place] % (Auto) (1.0-6.0) % Eos % (Auto) (1.5-5.0) % Baso % (Auto) (0.0-3.0) % Lymph # (Auto) (1.2-3.4) [place] # (Auto) (0.1-0.6) Eos # (Auto) (0.0-0.7) Baso # (Auto) (0.0-2.0) K/mm3 Absolute Neuts (auto) (1.4-6.5) APTT (26.9-38.3) Seconds pCO2 24 L (35-45) mm/Hg pO2 141.0 H (80-100) mm/Hg HCO3 14.2 L (21-28) mmol/L ABG pH 7.38 (7.35-7.45) ABG Total CO2 14.9 L (22-28) mmol.L ABG O2 Saturation 99.3 H (95-98) % ABG O2 Content 14.1 L (15-23) ML/dl ABG Base Excess -9.5 L (-2.0-3.0) mmol/L ABG Hemoglobin 10.1 L (11.7-17.4) g/dL ABG Carboxyhemoglobin 1.3 (0.5-1.5) % POC ABG HHb (Measured) 0.7 (0-5) % ABG Methemoglobin 0.9 (0.0-3.0) % ABG O2 Capacity 14.2 L (16-24) mL/dl Hgb O2 Saturation 97.2 (95.0-98.0) % FiO2 40.0 % Sodium (132-148) mmol/L Potassium (3.6-5.0) mmol/L Chloride (98-107) mmol/L Carbon Dioxide (21-33) mmol/L Anion Gap (10-20) BUN (7-21) mg/dL Creatinine (0.8-1.5) mg/dl Est GFR ( Amer) Est GFR (Non-Af Amer) POC Glucose (mg/dL) (65-110) mg/dL Random Glucose (70-110) mg/dL Calcium (8.4-10.5) mg/dL Phosphorus (2.5-4.5) mg/dL Magnesium (1.7-2.2) mg/dL Total Bilirubin (0.2-1.3) mg/dL AST (17-59) U/L ALT (7-56) U/L Alkaline Phosphatase (38-126) U/L Total Protein (5.8-8.3) g/dL Albumin (3.0-4.8) g/dL Globulin gm/dL Albumin/Globulin Ratio (1.1-1.8) Laboratory Results - last 24 hr 11/16/18 11/16/18 11/16/18 07:40 07:58 08:52 WBC RBC Hgb Hct MCV MCH MCHC RDW Plt Count MPV Neut % (Auto) Lymph % (Auto) [place] % (Auto) Eos % (Auto) Baso % (Auto) Lymph # (Auto) [place] # (Auto) Eos # (Auto) Baso # (Auto) Absolute Neuts (auto) APTT pCO2 24 L pO2 141.0 H HCO3 14.2 L ABG pH 7.38 ABG Total CO2 14.9 L ABG O2 Saturation 99.3 H ABG O2 Content 14.1 L ABG Base Excess -9.5 L ABG Hemoglobin 10.1 L ABG Carboxyhemoglobin 1.3 POC ABG HHb (Measured) 0.7 ABG Methemoglobin 0.9 ABG O2 Capacity 14.2 L Hgb O2 Saturation 97.2 FiO2 40.0 Sodium Potassium Chloride Carbon Dioxide Anion Gap BUN Creatinine Est GFR ( Amer) Est GFR (Non-Af Amer) POC Glucose (mg/dL) 162 H 144 H Random Glucose Calcium Phosphorus Magnesium Total Bilirubin AST ALT Alkaline Phosphatase Total Protein Albumin Globulin Albumin/Globulin Ratio 11/16/18 11/16/18 11/16/18 09:47 10:58 11:53 WBC RBC Hgb Hct MCV MCH MCHC RDW Plt Count MPV Neut % (Auto) Lymph % (Auto) [place] % (Auto) Eos % (Auto) Baso % (Auto) Lymph # (Auto) [place] # (Auto) Eos # (Auto) Baso # (Auto) Absolute Neuts (auto) APTT pCO2 pO2 HCO3 ABG pH ABG Total CO2 ABG O2 Saturation ABG O2 Content ABG Base Excess ABG Hemoglobin ABG Carboxyhemoglobin POC ABG HHb (Measured) ABG Methemoglobin ABG O2 Capacity Hgb O2 Saturation FiO2 Sodium Potassium Chloride Carbon Dioxide Anion Gap BUN Creatinine Est GFR ( Amer) Est GFR (Non-Af Amer) POC Glucose (mg/dL) 138 H 132 H 127 H Random Glucose Calcium Phosphorus Magnesium Total Bilirubin AST ALT Alkaline Phosphatase Total Protein Albumin Globulin Albumin/Globulin Ratio 11/16/18 11/16/18 11/16/18 15:07 16:00 18:02 WBC RBC Hgb Hct MCV MCH MCHC RDW Plt Count MPV Neut % (Auto) Lymph % (Auto) [place] % (Auto) Eos % (Auto) Baso % (Auto) Lymph # (Auto) [place] # (Auto) Eos # (Auto) Baso # (Auto) Absolute Neuts (auto) APTT pCO2 pO2 HCO3 ABG pH ABG Total CO2 ABG O2 Saturation ABG O2 Content ABG Base Excess ABG Hemoglobin ABG Carboxyhemoglobin POC ABG HHb (Measured) ABG Methemoglobin ABG O2 Capacity Hgb O2 Saturation FiO2 Sodium Potassium Chloride Carbon Dioxide Anion Gap BUN Creatinine Est GFR ( Amer) Est GFR (Non-Af Amer) POC Glucose (mg/dL) 126 H 135 H 140 H Random Glucose Calcium Phosphorus Magnesium Total Bilirubin AST ALT Alkaline Phosphatase Total Protein Albumin Globulin Albumin/Globulin Ratio 11/16/18 11/16/18 11/17/18 21:09 22:13 05:45 WBC 9.9 RBC 3.49 L Hgb 9.2 L Hct 29.1 L MCV 83.4 MCH 26.4 MCHC 31.6 RDW 16.5 H Plt Count 196 MPV 10.8 Neut % (Auto) 92.8 H Lymph % (Auto) 3.3 L [place] % (Auto) 2.3 Eos % (Auto) 1.2 L Baso % (Auto) 0.4 Lymph # (Auto) 0.3 L [place] # (Auto) 0.2 Eos # (Auto) 0.1 Baso # (Auto) 0.04 Absolute Neuts (auto) 9.15 H APTT 38.5 H pCO2 pO2 HCO3 ABG pH ABG Total CO2 ABG O2 Saturation ABG O2 Content ABG Base Excess ABG Hemoglobin ABG Carboxyhemoglobin POC ABG HHb (Measured) ABG Methemoglobin ABG O2 Capacity Hgb O2 Saturation FiO2 Sodium Potassium Chloride Carbon Dioxide Anion Gap BUN Creatinine Est GFR ( Amer) Est GFR (Non-Af Amer) POC Glucose (mg/dL) 152 H Random Glucose Calcium Phosphorus Magnesium Total Bilirubin AST ALT Alkaline Phosphatase Total Protein Albumin Globulin Albumin/Globulin Ratio 11/17/18 11/17/18 11/17/18 05:45 05:45 06:00 WBC RBC Hgb Hct MCV MCH MCHC RDW Plt Count MPV Neut % (Auto) Lymph % (Auto) [place] % (Auto) Eos % (Auto) Baso % (Auto) Lymph # (Auto) [place] # (Auto) Eos # (Auto) Baso # (Auto) Absolute Neuts (auto) APTT 51.1 H pCO2 24 L pO2 176.0 H HCO3 14.5 L ABG pH 7.39 ABG Total CO2 15.2 L ABG O2 Saturation 99.5 H ABG O2 Content 12.6 L ABG Base Excess -9.2 L ABG Hemoglobin 8.9 L ABG Carboxyhemoglobin 1.3 POC ABG HHb (Measured) 0.5 ABG Methemoglobin 1.1 ABG O2 Capacity 12.7 L Hgb O2 Saturation 97.1 FiO2 40.0 Sodium 145 Potassium 3.4 L Chloride 120 H Carbon Dioxide 18 L Anion Gap 11 BUN 23 H Creatinine 1.2 Est GFR ( Amer) > 60 Est GFR (Non-Af Amer) > 60 POC Glucose (mg/dL) Random Glucose 131 H Calcium 7.8 L Phosphorus 3.5 Magnesium 1.6 L Total Bilirubin 0.4 AST 66 H ALT 22 Alkaline Phosphatase 81 Total Protein 6.1 Albumin 2.7 L Globulin 3.4 Albumin/Globulin Ratio 0.8 L 11/17/18 07:21 WBC RBC Hgb Hct MCV MCH MCHC RDW Plt Count MPV Neut % (Auto) Lymph % (Auto) [place] % (Auto) Eos % (Auto) Baso % (Auto) Lymph # (Auto) [place] # (Auto) Eos # (Auto) Baso # (Auto) Absolute Neuts (auto) APTT pCO2 pO2 HCO3 ABG pH ABG Total CO2 ABG O2 Saturation ABG O2 Content ABG Base Excess ABG Hemoglobin ABG Carboxyhemoglobin POC ABG HHb (Measured) ABG Methemoglobin ABG O2 Capacity Hgb O2 Saturation FiO2 Sodium Potassium Chloride Carbon Dioxide Anion Gap BUN Creatinine Est GFR ( Amer) Est GFR (Non-Af Amer) POC Glucose (mg/dL) 149 H Random Glucose Calcium Phosphorus Magnesium Total Bilirubin AST ALT Alkaline Phosphatase Total Protein Albumin Globulin Albumin/Globulin Ratio Radiology Impressions: Radiology Impressions Chest X-Ray 11/16/18 09:33 IMPRESSION: No active disease. 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 PRE OP:: N Does Patient Have a Pacemaker?: No 11/16/18 14:52 ELECTROCARDIOGRAM Urgent Comment: 12 lead EKG upon arrival in unit Reason For Exam: post ptca 11/17/18 15:00 ELECTROCARDIOGRAM DAILY Comment: Reason For Exam: chest pain Fingerstick Blood Sugar Results: 152 Review of Systems - Review of Systems Systems not reviewed;Unavailable: Intubated Critical Care Progress Note - Nutrition Nutrition: Nutrition Category Date Time Status NPO Diet [DIET] Diets 11/16/18 Lunch Ordered Assessment/Plan - Assessment and Plan (Free Text) Assessment: 63 year old male with a PMHx of severely dilated cardiomyopathy EF 14%, moderate pulmonary hypertension, paroxysmal atrial fibrillation, ITP normocytic anemia, DM II, hypertension, pseudogout, anxiety, PVD who was brought in by EMS as he was found pulseness in ventricular fibrillation. Currently sedated on mechanical ventilation. Weaning trial this morning. Cardiovascular -Maintain MAP>65, afterload reduction -Integrilin drip discontinued this AM, continue Heparin drip with IABP, Amiodarone BID, ASA/Plavix -C/w imdur 30mg po qd, hydralazine 25mg po qid, lipitor 40mg po din, metoprolol tartrate 25mg po bid (all administered via ngt) -S/P cardiac arrest; troponin 25.80 -> 25.40 -> 24 -BNP 22,500 -11/16/18 echo shows EF 20% -Cardiology consulted - Dr. Saxena. 11.16.18 Cardiac cath 1 FRANCO in circumflex, 2 FRANCO in LAD -Awaiting PICC line Gastrintestinal -S/p 3u pRBCs with appropriate response -Continue w Protonix -Gastrotenterology consulted, Dr Hardy Infectious Disease -r/o HCAP versus urine as source -UA shows large Leukocyte esterase, Urine WBC Tntc, negative nitrate -cxr 11/15/18: * no active pulmonary dz, moderate cardiomegaly and pulmonary venous congestion -patient currently on Vancomycin 1 g bid and Cefepime 1 g BID -procal 0.11 -F/u sputum cx -MRSA negative -Blood cx growing gram pos cocci -ID consulted, Dr Fernandes Neurologic -Patient intubated, not sedated -daily sedation vacations, weaning trials -vEEG: severe, non specific diffuse disturbance of cortical activity. This is in keeping with a diffuse hernandez matter dysfunction. No seizures or status pr esently. -Neurology (Dr. Mcdaniels) consulted for AMS- no need for further antiepileptics. Thiamine 300 mg daily -CT head 11/15/18 * CT head 11/14: no acute intracrainal abnormality, chronic lacunar infarctions in right dennison radiata and basal ganglia, mild chronic microangiopathic changes and mild age related global parenchymal volume loss Pulmonary -Maintain O2 sat >95% -Currently on PRVC: FiO2 40%, PEEP 5, RR 25, TV 400 -Trial of pressure support planned -Improved metabolic acidosis on AB -11/16/18 CXR shows improved aeration with persistent vascular congestion, OGT and ETT in place -11/17/18 CXR shows OGT and ETT in place -Pulmonology consulted, Dr Burr Renal/ -Maintain euvolemia -UTI, Proteus on culture -Vanc, Cefepime -Monitor I&O -Replete hypokalemia and Mg Endocrine -Maintain euvolemia, euglycemia Code Status: Full code, confirmed with spouse this AM Patient seen, case reviewed and plan approved by Dr. Sung. Ismael Turner, PGY-1 <Golden Sung - Last Filed: 11/17/18 13:28> CCU Objective - Vital Signs / Intake & Output Vital Signs (Last 4 hours): Vital Signs Temp Pulse BP Pulse Ox 11/17/18 13:00 103 H 11/17/18 12:17 102 H 11/17/18 12:00 103 H 11/17/18 11:00 101 H 11/17/18 10:10 99.3 F 100 H 100 11/17/18 10:00 99.3 F 96 H 109/84 100 11/17/18 09:50 99.3 F 96 H 100 11/17/18 09:40 99.3 F 101 H 80 L 11/17/18 09:30 99.3 F 100 H 100 Intake and Output (Last 8hrs): Intake & Output 11/16/18 11/17/18 11/17/18 22:59 06:59 14:59 Intake Total 769 783 866 Output Total 350 900 Balance 419 -117 866 Weight 183 lb 14.4 oz Intake: IV 769 258 586 Heparin 100 IVPB 400 Integrilin 158 34 Left Antecubital 65 Right Femoral 567 Oral 0 Tube Feeding 0 TPN/PPN 0 Blood Product 0 Lipid 0 Albumin 0 Other 525 280 Output: Urine 350 900 Urethral (Ash) 350 900 Stool 0 Urine/Stool Mix 0 Emesis 0 Oral Regurgitation 0 Other 0 Other: # Voids Urethral (Ash) 0 # Bowel Movements 1 - Medications Active Medications: Active Medications Generic Name Dose Route Start Last Admin Trade Name Freq PRN Reason Stop Dose Admin Amiodarone HCl 400 mg 11/16/18 17:00 11/17/18 07:52 Cordarone PO 400 mg BRKDIN JHON Administration Aspirin 81 mg 11/15/18 16:45 11/17/18 08:59 Aspirin Chewable PO 81 mg DAILY JHON Administration Atorvastatin Calcium 40 mg 11/16/18 14:50 11/16/18 17:23 Lipitor PO 40 mg DIN JHON Administration Clopidogrel Bisulfate 75 mg 11/17/18 10:00 11/17/18 08:59 Plavix PO 75 mg DAILY JHON Administration Dextrose 0 ml 11/15/18 16:18 Dextrose 50% Inj IV STAT PRN Hypoglycemia Protocol Protocol Hydralazine HCl 25 mg 11/15/18 10:00 11/17/18 09:01 Apresoline PO Not Given QID JHON Sodium Chloride 1,000 mls @ 100 mls/hr 11/14/18 19:00 11/15/18 06:00 Sodium Chloride 0.9% IV 100 mls/hr .Q10H JHON Administration Heparin Sodium/Sodium Chloride 25,000 units in 250 mls @ 10.427 mls/hr 15:00 11/17/18 12:45 Heparin 52671 Units/250ml 1/2 Normal Saline IV 0 units/kg/hr .[id number] JHON 0 mls/hr Titration Protocol 12 UNITS/KG/HR Dexmedetomidine HCl 400 mcg in 100 mls @ 4.345 mls/hr 11/16/18 17:18 Precedex 400mcg/100ml IV .Q23H1M PRN Agitation Protocol 0.2 MCG/KG/HR Vancomycin HCl 1 gm in 250 mls @ 167 mls/hr 11/17/18 09:00 11/17/18 10:24 Vancomycin 1gm IVPB 167 mls/hr Q12H JHON Administration Protocol Meropenem 1 gm in 50 mls @ 100 mls/hr 11/17/18 14:00 Merrem Iv 1 Gm Premix IVPB 11/26/18 14:01 Q8 JHON Protocol Insulin Human Regular 0 units 11/16/18 22:00 11/17/18 11:30 Humulin R Med SC Not Given ACHS [facility] Protocol Metoprolol Tartrate 25 mg 11/15/18 10:00 11/17/18 09:00 Lopressor PO Not Given BID JHON Ondansetron HCl 4 mg 11/15/18 04:15 11/15/18 05:03 Zofran Inj IVP 4 mg Q6H PRN Administration Nausea/Vomiting Pantoprazole Sodium 40 mg 11/17/18 10:00 Protonix Inj IVP DAILY [facility] Thiamine HCl 300 mg 11/16/18 17:00 11/17/18 08:59 Vitamin B1 Tab NG 300 mg DAILY JHON Administration - Patient Studies Lab Studies: Microbiology Studies 11/14/18 18:49 S.aureus & Coag-Neg Staph PNA FISH - Final Blood Blood Culture - Preliminary Gram Positive Cocci Gram Stain - Final 11/14/18 21:21 MRSA Culture (Admit) - Final Naris MRSA NOT DETECTED 11/14/18 19:00 Urine Culture - Final Urine Random Proteus Mirabilis 11/14/18 18:19 Blood Culture - Preliminary Blood NO GROWTH AFTER 48 HOURS Lab Studies 11/17/18 11/17/18 11/17/18 Range/Units 11:42 10:20 07:21 WBC (4.5-11.0) 10^3/uL RBC (3.5-6.1) 10^6/uL Hgb (14.0-18.0) g/dL Hct (42.0-52.0) % MCV (80.0-105.0) fl MCH (25.0-35.0) pg MCHC (31.0-37.0) g/dl RDW (11.5-14.5) % Plt Count (120.0-450.0) 10^3/uL MPV (7.0-11.0) fl Neut % (Auto) (50.0-68.0) % Lymph % (Auto) (22.0-35.0) % [place] % (Auto) (1.0-6.0) % Eos % (Auto) (1.5-5.0) % Baso % (Auto) (0.0-3.0) % Lymph # (Auto) (1.2-3.4) [place] # (Auto) (0.1-0.6) Eos # (Auto) (0.0-0.7) Baso # (Auto) (0.0-2.0) K/mm3 Absolute Neuts (auto) (1.4-6.5) APTT 45.9 H (26.9-38.3) Seconds pCO2 (35-45) mm/Hg pO2 (80-100) mm/Hg HCO3 (21-28) mmol/L ABG pH (7.35-7.45) ABG Total CO2 (22-28) mmol.L ABG O2 Saturation (95-98) % ABG O2 Content (15-23) ML/dl ABG Base Excess (-2.0-3.0) mmol/L ABG Hemoglobin (11.7-17.4) g/dL ABG Carboxyhemoglobin (0.5-1.5) % POC ABG HHb (Measured) (0-5) % ABG Methemoglobin (0.0-3.0) % ABG O2 Capacity (16-24) mL/dl Hgb O2 Saturation (95.0-98.0) % FiO2 % Sodium (132-148) mmol/L Potassium (3.6-5.0) mmol/L Chloride (98-107) mmol/L Carbon Dioxide (21-33) mmol/L Anion Gap (10-20) BUN (7-21) mg/dL Creatinine (0.8-1.5) mg/dl Est GFR ( Amer) Est GFR (Non-Af Amer) POC Glucose (mg/dL) 144 H 149 H (65-110) mg/dL Random Glucose (70-110) mg/dL Calcium (8.4-10.5) mg/dL Phosphorus (2.5-4.5) mg/dL Magnesium (1.7-2.2) mg/dL Total Bilirubin (0.2-1.3) mg/dL AST (17-59) U/L ALT (7-56) U/L Alkaline Phosphatase (38-126) U/L Total Protein (5.8-8.3) g/dL Albumin (3.0-4.8) g/dL Globulin gm/dL Albumin/Globulin Ratio (1.1-1.8) 11/17/18 11/17/18 11/17/18 Range/Units 06:00 05:45 05:45 WBC (4.5-11.0) 10^3/uL RBC (3.5-6.1) 10^6/uL Hgb (14.0-18.0) g/dL Hct (42.0-52.0) % MCV (80.0-105.0) fl MCH (25.0-35.0) pg MCHC (31.0-37.0) g/dl RDW (11.5-14.5) % Plt Count (120.0-450.0) 10^3/uL MPV (7.0-11.0) fl Neut % (Auto) (50.0-68.0) % Lymph % (Auto) (22.0-35.0) % [place] % (Auto) (1.0-6.0) % Eos % (Auto) (1.5-5.0) % Baso % (Auto) (0.0-3.0) % Lymph # (Auto) (1.2-3.4) [place] # (Auto) (0.1-0.6) Eos # (Auto) (0.0-0.7) Baso # (Auto) (0.0-2.0) K/mm3 Absolute Neuts (auto) (1.4-6.5) APTT 51.1 H (26.9-38.3) Seconds pCO2 24 L (35-45) mm/Hg pO2 176.0 H (80-100) mm/Hg HCO3 14.5 L (21-28) mmol/L ABG pH 7.39 (7.35-7.45) ABG Total CO2 15.2 L (22-28) mmol.L ABG O2 Saturation 99.5 H (95-98) % ABG O2 Content 12.6 L (15-23) ML/dl ABG Base Excess -9.2 L (-2.0-3.0) mmol/L ABG Hemoglobin 8.9 L (11.7-17.4) g/dL ABG Carboxyhemoglobin 1.3 (0.5-1.5) % POC ABG HHb (Measured) 0.5 (0-5) % ABG Methemoglobin 1.1 (0.0-3.0) % ABG O2 Capacity 12.7 L (16-24) mL/dl Hgb O2 Saturation 97.1 (95.0-98.0) % FiO2 40.0 % Sodium 145 (132-148) mmol/L Potassium 3.4 L (3.6-5.0) mmol/L Chloride 120 H (98-107) mmol/L Carbon Dioxide 18 L (21-33) mmol/L Anion Gap 11 (10-20) BUN 23 H (7-21) mg/dL Creatinine 1.2 (0.8-1.5) mg/dl Est GFR ( Amer) > 60 Est GFR (Non-Af Amer) > 60 POC Glucose (mg/dL) (65-110) mg/dL Random Glucose 131 H (70-110) mg/dL Calcium 7.8 L (8.4-10.5) mg/dL Phosphorus 3.5 (2.5-4.5) mg/dL Magnesium 1.6 L (1.7-2.2) mg/dL Total Bilirubin 0.4 (0.2-1.3) mg/dL AST 66 H (17-59) U/L ALT 22 (7-56) U/L Alkaline Phosphatase 81 (38-126) U/L Total Protein 6.1 (5.8-8.3) g/dL Albumin 2.7 L (3.0-4.8) g/dL Globulin 3.4 gm/dL Albumin/Globulin Ratio 0.8 L (1.1-1.8) 11/17/18 11/16/18 11/16/18 Range/Units 05:45 22:13 21:09 WBC 9.9 (4.5-11.0) 10^3/uL RBC 3.49 L (3.5-6.1) 10^6/uL Hgb 9.2 L (14.0-18.0) g/dL Hct 29.1 L (42.0-52.0) % MCV 83.4 (80.0-105.0) fl MCH 26.4 (25.0-35.0) pg MCHC 31.6 (31.0-37.0) g/dl RDW 16.5 H (11.5-14.5) % Plt Count 196 (120.0-450.0) 10^3/uL MPV 10.8 (7.0-11.0) fl Neut % (Auto) 92.8 H (50.0-68.0) % Lymph % (Auto) 3.3 L (22.0-35.0) % [place] % (Auto) 2.3 (1.0-6.0) % Eos % (Auto) 1.2 L (1.5-5.0) % Baso % (Auto) 0.4 (0.0-3.0) % Lymph # (Auto) 0.3 L (1.2-3.4) [place] # (Auto) 0.2 (0.1-0.6) Eos # (Auto) 0.1 (0.0-0.7) Baso # (Auto) 0.04 (0.0-2.0) K/mm3 Absolute Neuts (auto) 9.15 H (1.4-6.5) APTT 38.5 H (26.9-38.3) Seconds pCO2 (35-45) mm/Hg pO2 (80-100) mm/Hg HCO3 (21-28) mmol/L ABG pH (7.35-7.45) ABG Total CO2 (22-28) mmol.L ABG O2 Saturation (95-98) % ABG O2 Content (15-23) ML/dl ABG Base Excess (-2.0-3.0) mmol/L ABG Hemoglobin (11.7-17.4) g/dL ABG Carboxyhemoglobin (0.5-1.5) % POC ABG HHb (Measured) (0-5) % ABG Methemoglobin (0.0-3.0) % ABG O2 Capacity (16-24) mL/dl Hgb O2 Saturation (95.0-98.0) % FiO2 % Sodium (132-148) mmol/L Potassium (3.6-5.0) mmol/L Chloride (98-107) mmol/L Carbon Dioxide (21-33) mmol/L Anion Gap (10-20) BUN (7-21) mg/dL Creatinine (0.8-1.5) mg/dl Est GFR ( Amer) Est GFR (Non-Af Amer) POC Glucose (mg/dL) 152 H (65-110) mg/dL Random Glucose (70-110) mg/dL Calcium (8.4-10.5) mg/dL Phosphorus (2.5-4.5) mg/dL Magnesium (1.7-2.2) mg/dL Total Bilirubin (0.2-1.3) mg/dL AST (17-59) U/L ALT (7-56) U/L Alkaline Phosphatase (38-126) U/L Total Protein (5.8-8.3) g/dL Albumin (3.0-4.8) g/dL Globulin gm/dL Albumin/Globulin Ratio (1.1-1.8) 11/16/18 11/16/18 11/16/18 Range/Units 18:02 16:00 15:07 WBC (4.5-11.0) 10^3/uL RBC (3.5-6.1) 10^6/uL Hgb (14.0-18.0) g/dL Hct (42.0-52.0) % MCV (80.0-105.0) fl MCH (25.0-35.0) pg MCHC (31.0-37.0) g/dl RDW (11.5-14.5) % Plt Count (120.0-450.0) 10^3/uL MPV (7.0-11.0) fl Neut % (Auto) (50.0-68.0) % Lymph % (Auto) (22.0-35.0) % [place] % (Auto) (1.0-6.0) % Eos % (Auto) (1.5-5.0) % Baso % (Auto) (0.0-3.0) % Lymph # (Auto) (1.2-3.4) [place] # (Auto) (0.1-0.6) Eos # (Auto) (0.0-0.7) Baso # (Auto) (0.0-2.0) K/mm3 Absolute Neuts (auto) (1.4-6.5) APTT (26.9-38.3) Seconds pCO2 (35-45) mm/Hg pO2 (80-100) mm/Hg HCO3 (21-28) mmol/L ABG pH (7.35-7.45) ABG Total CO2 (22-28) mmol.L ABG O2 Saturation (95-98) % ABG O2 Content (15-23) ML/dl ABG Base Excess (-2.0-3.0) mmol/L ABG Hemoglobin (11.7-17.4) g/dL ABG Carboxyhemoglobin (0.5-1.5) % POC ABG HHb (Measured) (0-5) % ABG Methemoglobin (0.0-3.0) % ABG O2 Capacity (16-24) mL/dl Hgb O2 Saturation (95.0-98.0) % FiO2 % Sodium (132-148) mmol/L Potassium (3.6-5.0) mmol/L Chloride (98-107) mmol/L Carbon Dioxide (21-33) mmol/L Anion Gap (10-20) BUN (7-21) mg/dL Creatinine (0.8-1.5) mg/dl Est GFR ( Amer) Est GFR (Non-Af Amer) POC Glucose (mg/dL) 140 H 135 H 126 H (65-110) mg/dL Random Glucose (70-110) mg/dL Calcium (8.4-10.5) mg/dL Phosphorus (2.5-4.5) mg/dL Magnesium (1.7-2.2) mg/dL Total Bilirubin (0.2-1.3) mg/dL AST (17-59) U/L ALT (7-56) U/L Alkaline Phosphatase (38-126) U/L Total Protein (5.8-8.3) g/dL Albumin (3.0-4.8) g/dL Globulin gm/dL Albumin/Globulin Ratio (1.1-1.8) 11/16/18 Range/Units 11:53 WBC (4.5-11.0) 10^3/uL RBC (3.5-6.1) 10^6/uL Hgb (14.0-18.0) g/dL Hct (42.0-52.0) % MCV (80.0-105.0) fl MCH (25.0-35.0) pg MCHC (31.0-37.0) g/dl RDW (11.5-14.5) % Plt Count (120.0-450.0) 10^3/uL MPV (7.0-11.0) fl Neut % (Auto) (50.0-68.0) % Lymph % (Auto) (22.0-35.0) % [place] % (Auto) (1.0-6.0) % Eos % (Auto) (1.5-5.0) % Baso % (Auto) (0.0-3.0) % Lymph # (Auto) (1.2-3.4) [place] # (Auto) (0.1-0.6) Eos # (Auto) (0.0-0.7) Baso # (Auto) (0.0-2.0) K/mm3 Absolute Neuts (auto) (1.4-6.5) APTT (26.9-38.3) Seconds pCO2 (35-45) mm/Hg pO2 (80-100) mm/Hg HCO3 (21-28) mmol/L ABG pH (7.35-7.45) ABG Total CO2 (22-28) mmol.L ABG O2 Saturation (95-98) % ABG O2 Content (15-23) ML/dl ABG Base Excess (-2.0-3.0) mmol/L ABG Hemoglobin (11.7-17.4) g/dL ABG Carboxyhemoglobin (0.5-1.5) % POC ABG HHb (Measured) (0-5) % ABG Methemoglobin (0.0-3.0) % ABG O2 Capacity (16-24) mL/dl Hgb O2 Saturation (95.0-98.0) % FiO2 % Sodium (132-148) mmol/L Potassium (3.6-5.0) mmol/L Chloride (98-107) mmol/L Carbon Dioxide (21-33) mmol/L Anion Gap (10-20) BUN (7-21) mg/dL Creatinine (0.8-1.5) mg/dl Est GFR ( Amer) Est GFR (Non-Af Amer) POC Glucose (mg/dL) 127 H (65-110) mg/dL Random Glucose (70-110) mg/dL Calcium (8.4-10.5) mg/dL Phosphorus (2.5-4.5) mg/dL Magnesium (1.7-2.2) mg/dL Total Bilirubin (0.2-1.3) mg/dL AST (17-59) U/L ALT (7-56) U/L Alkaline Phosphatase (38-126) U/L Total Protein (5.8-8.3) g/dL Albumin (3.0-4.8) g/dL Globulin gm/dL Albumin/Globulin Ratio (1.1-1.8) Laboratory Results - last 24 hr 11/16/18 11/16/18 11/16/18 11:53 15:07 16:00 WBC RBC Hgb Hct MCV MCH MCHC RDW Plt Count MPV Neut % (Auto) Lymph % (Auto) [place] % (Auto) Eos % (Auto) Baso % (Auto) Lymph # (Auto) [place] # (Auto) Eos # (Auto) Baso # (Auto) Absolute Neuts (auto) APTT pCO2 pO2 HCO3 ABG pH ABG Total CO2 ABG O2 Saturation ABG O2 Content ABG Base Excess ABG Hemoglobin ABG Carboxyhemoglobin POC ABG HHb (Measured) ABG Methemoglobin ABG O2 Capacity Hgb O2 Saturation FiO2 Sodium Potassium Chloride Carbon Dioxide Anion Gap BUN Creatinine Est GFR ( Amer) Est GFR (Non-Af Amer) POC Glucose (mg/dL) 127 H 126 H 135 H Random Glucose Calcium Phosphorus Magnesium Total Bilirubin AST ALT Alkaline Phosphatase Total Protein Albumin Globulin Albumin/Globulin Ratio 11/16/18 11/16/18 11/16/18 18:02 21:09 22:13 WBC RBC Hgb Hct MCV MCH MCHC RDW Plt Count MPV Neut % (Auto) Lymph % (Auto) [place] % (Auto) Eos % (Auto) Baso % (Auto) Lymph # (Auto) [place] # (Auto) Eos # (Auto) Baso # (Auto) Absolute Neuts (auto) APTT 38.5 H pCO2 pO2 HCO3 ABG pH ABG Total CO2 ABG O2 Saturation ABG O2 Content ABG Base Excess ABG Hemoglobin ABG Carboxyhemoglobin POC ABG HHb (Measured) ABG Methemoglobin ABG O2 Capacity Hgb O2 Saturation FiO2 Sodium Potassium Chloride Carbon Dioxide Anion Gap BUN Creatinine Est GFR ( Amer) Est GFR (Non-Af Amer) POC Glucose (mg/dL) 140 H 152 H Random Glucose Calcium Phosphorus Magnesium Total Bilirubin AST ALT Alkaline Phosphatase Total Protein Albumin Globulin Albumin/Globulin Ratio 11/17/18 11/17/18 11/17/18 05:45 05:45 05:45 WBC 9.9 RBC 3.49 L Hgb 9.2 L Hct 29.1 L MCV 83.4 MCH 26.4 MCHC 31.6 RDW 16.5 H Plt Count 196 MPV 10.8 Neut % (Auto) 92.8 H Lymph % (Auto) 3.3 L [place] % (Auto) 2.3 Eos % (Auto) 1.2 L Baso % (Auto) 0.4 Lymph # (Auto) 0.3 L [place] # (Auto) 0.2 Eos # (Auto) 0.1 Baso # (Auto) 0.04 Absolute Neuts (auto) 9.15 H APTT 51.1 H pCO2 pO2 HCO3 ABG pH ABG Total CO2 ABG O2 Saturation ABG O2 Content ABG Base Excess ABG Hemoglobin ABG Carboxyhemoglobin POC ABG HHb (Measured) ABG Methemoglobin ABG O2 Capacity Hgb O2 Saturation FiO2 Sodium 145 Potassium 3.4 L Chloride 120 H Carbon Dioxide 18 L Anion Gap 11 BUN 23 H Creatinine 1.2 Est GFR ( Amer) > 60 Est GFR (Non-Af Amer) > 60 POC Glucose (mg/dL) Random Glucose 131 H Calcium 7.8 L Phosphorus 3.5 Magnesium 1.6 L Total Bilirubin 0.4 AST 66 H ALT 22 Alkaline Phosphatase 81 Total Protein 6.1 Albumin 2.7 L Globulin 3.4 Albumin/Globulin Ratio 0.8 L 11/17/18 11/17/18 11/17/18 06:00 07:21 10:20 WBC RBC Hgb Hct MCV MCH MCHC RDW Plt Count MPV Neut % (Auto) Lymph % (Auto) [place] % (Auto) Eos % (Auto) Baso % (Auto) Lymph # (Auto) [place] # (Auto) Eos # (Auto) Baso # (Auto) Absolute Neuts (auto) APTT 45.9 H pCO2 24 L pO2 176.0 H HCO3 14.5 L ABG pH 7.39 ABG Total CO2 15.2 L ABG O2 Saturation 99.5 H ABG O2 Content 12.6 L ABG Base Excess -9.2 L ABG Hemoglobin 8.9 L ABG Carboxyhemoglobin 1.3 POC ABG HHb (Measured) 0.5 ABG Methemoglobin 1.1 ABG O2 Capacity 12.7 L Hgb O2 Saturation 97.1 FiO2 40.0 Sodium Potassium Chloride Carbon Dioxide Anion Gap BUN Creatinine Est GFR ( Amer) Est GFR (Non-Af Amer) POC Glucose (mg/dL) 149 H Random Glucose Calcium Phosphorus Magnesium Total Bilirubin AST ALT Alkaline Phosphatase Total Protein Albumin Globulin Albumin/Globulin Ratio 11/17/18 11:42 WBC RBC Hgb Hct MCV MCH MCHC RDW Plt Count MPV Neut % (Auto) Lymph % (Auto) [place] % (Auto) Eos % (Auto) Baso % (Auto) Lymph # (Auto) [place] # (Auto) Eos # (Auto) Baso # (Auto) Absolute Neuts (auto) APTT pCO2 pO2 HCO3 ABG pH ABG Total CO2 ABG O2 Saturation ABG O2 Content ABG Base Excess ABG Hemoglobin ABG Carboxyhemoglobin POC ABG HHb (Measured) ABG Methemoglobin ABG O2 Capacity Hgb O2 Saturation FiO2 Sodium Potassium Chloride Carbon Dioxide Anion Gap BUN Creatinine Est GFR ( Amer) Est GFR (Non-Af Amer) POC Glucose (mg/dL) 144 H Random Glucose Calcium Phosphorus Magnesium Total Bilirubin AST ALT Alkaline Phosphatase Total Protein Albumin Globulin Albumin/Globulin Ratio Radiology Impressions: Radiology Impressions Chest X-Ray 11/17/18 06:00 IMPRESSION: No acute findings 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 PRE OP:: N Does Patient Have a Pacemaker?: No 11/16/18 14:52 ELECTROCARDIOGRAM Urgent Comment: 12 lead EKG upon arrival in unit Reason For Exam: post ptca 11/17/18 15:00 ELECTROCARDIOGRAM DAILY Comment: Reason For Exam: chest pain Critical Care Progress Note - Nutrition Nutrition: Nutrition Category Date Time Status NPO Diet [DIET] Diets 11/16/18 Lunch Ordered Assessment/Plan - Assessment and Plan (Free Text) Assessment: I saw and examined the patients on rounds with resident, agree with note with following additions/exceptions: Patient is 63yo male with PMHx of DM, HTN, obesity, smoking hx of 2pk per day, dilated cardiomyopathy EF 14%, moderate pulmonary hypertension, paroxysmal atrial fibrillation, ITP normocytic anemia, with long ICU stay for resp failure 2/2 influenza few months ago, presents from home s/p Vfib cardiac arrest, s/p ROSC, s/p hypothermic protocol. Pt underwent cardiac cath yesterday with 3 stents, with IABP Pt was placed on pressure support trial today, for 1 hour good RSBI 40s, mental status awake, not alert, trackes, subsequently extubated to 2LNC, tolerated well Cardiology following Labs, imaging, chart reviewed Cardiac arrest VFIB Cardiomyopathy Systolic CHF, chronic CKD UTI COPD Hx of Smoking Pulm HTN PAFIB Recommend: - cont with supp o2, as needed, duonebs PRN, IS, goal sat 90%, BIPAP at night - broad spectrum abx as per IDJames Vanco - follow up cultures - BP control - ASA, Plavix, Statin, BB, Imdur - follow up cardio - IABP mgmt as per cardiology - ECHO - FS control - NPO - Speech swallow eval when more alert - GI ppx - DVT ppx, Heparin drip - Monitor in MICU Patient at high risk for morbidity and mortality FULL CODE Critical care time 50 minutes
--- NOTE | 2018-11-17 08:04 | PN ---
DATE: 11/17/2018 SUBJECTIVE: The patient remains on the ventilator. He is not sedated. He does open his eyes at times. He does not follow commands. PHYSICAL EXAMINATION: VITAL SIGNS: Temperature is 99.1, pulse 97, respiratory rate 25/25, blood pressure 114/57. HEENT: Normocephalic, atraumatic. No JVD. CARDIOVASCULAR: Positive S1, S2. No S3 gallop. LUNGS: Decreased breath sounds at the bases. No rhonchi. No wheezing. EXTREMITIES: Mild edema, no cyanosis, no clubbing. GASTROINTESTINAL: Abdomen is soft, and nondistended. Bowel sounds are positive. SKIN: No acute rash. NEUROLOGIC: Exam limited at the present time. 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 The chest x-ray remains with mild pulmonary vascular congestion. Arterial blood gas was done on PRBC 25, tidal volume 400, FIO2 40%. Results are: PH 7.39, pCO2 of 24, pO2 of 176. IMPRESSION: 1. Ventricular fibrillation arrest. 2. Respiratory failure. 3. Myocardial infarction. 4. Advanced dilated cardiomyopathy. 5. Anemia. 6. Renal insufficiency. PLAN: The patient remains on the ventilator. He is not sedated. I did discuss the case with the night nurse at length. The patient does open his eyes at times, but does not follow commands. I did review the chest x-ray as above. Findings are noted. Official results are pending. I have also reviewed the arterial blood gas. The arterial blood gas reveals a compensated metabolic acidosis with a decrease in the alveolar arterial gradient. I will discuss the ventilator settings with the ICU team this morning. Input by Cardiology (Dr. Saxena) is also noted. The patient is status post cardiac catheterization with stent placement. Inputs by Renal and Infectious Disease are also noted. The leukocytosis has now resolved. The patient remains critically ill with very guarded/poor prognosis. He is clinically improved - compared to the initial presentation. I will discuss the above with the entire ICU team in the next few moments. I will also discuss the above with the attending physician later this morning. Balta Burr MD [facility] # [id number] MOE
[2018-11-17] MEDS ORDERED: Potassium Chloride 40 mEq/30 ml LIQ UD PO STA (08:07)
--- NOTE | 2018-11-17 08:18 | RAD ---
Date of service: 11/17/2018 HISTORY: f/u COMPARISON: 11/16/2018 TECHNIQUE: 1 view obtained. FINDINGS: LUNGS: No active pulmonary disease. PLEURA: No significant pleural effusion identified, no pneumothorax apparent. CARDIOVASCULAR: Aortic calcification Mild cardiomegaly no pulmonary vascular congestion. OSSEOUS STRUCTURES: No significant abnormalities. VISUALIZED UPPER ABDOMEN: Normal. OTHER FINDINGS: Endotracheal and nasogastric tube in satisfactory position IMPRESSION: No acute findings
--- NOTE | 2018-11-17 08:57 | CP.PCM.PN ---
<Lino Valladares - Last Filed: 11/17/18 11:32> Subjective - Date & Time of Evaluation Date of Evaluation: 11/17/18 Time of Evaluation: 07:50 - Subjective Subjective: Infectious disease progress note: Patient seen and examined at bedside. nom acute events overnight. Pt is intubated and sedated. No fevers. Opens his eyes however not following commands. s/p cardiac cath yesterday with stents placed and triple vessel dx. 12 point ROS unobtainable due to intubation Objective - Vital Signs/Intake and Output Vital Signs (last 24 hours): Temp Pulse Resp BP Pulse Ox 99.1 F 106 H 26 H 110/61 100 11/17/18 07:20 11/17/18 08:00 11/17/18 08:05 11/17/18 07:52 11/17/18 08:05 Intake and Output: 11/17/18 11/17/18 06:59 18:59 Intake Total 858 Output Total 900 Balance -42 - Medications Medications: Current Medications Amiodarone HCl (Cordarone) 400 mg PO BRKDIN [facility] Last Admin: 11/17/18 07:52 Dose: 400 mg Aspirin (Aspirin Chewable) 81 mg PO DAILY [facility] Last Admin: 11/16/18 09:05 Dose: 81 mg Atorvastatin Calcium (Lipitor) 40 mg PO DIN [facility] Last Admin: 11/16/18 17:23 Dose: 40 mg Clopidogrel Bisulfate (Plavix) 75 mg PO DAILY [facility] Dextrose (Dextrose 50% Inj) 0 ml IV STAT PRN; Protocol PRN Reason: Hypoglycemia Protocol Hydralazine HCl (Apresoline) 25 mg PO QID [facility] Last Admin: 11/16/18 22:07 Dose: Not Given Sodium Chloride (Sodium Chloride 0.9%) 1,000 mls @ 100 mls/hr IV .Q10H [facility] Last Admin: 11/15/18 06:00 Dose: 100 mls/hr Cisatracurium Besylate 200 mg/ (Sodium Chloride) 270 mls @ 6.8 mls/hr IV .Q24H PRN; Protocol PRN Reason: TITRATE PER MD ORDER Last Titration: 11/16/18 15:15 Dose: 0 mcg/kg/min, 0 mls/hr Propofol (Diprivan) 1,000 mg in 100 mls @ 2.517 mls/hr IV .Q24H PRN; Protocol PRN Reason: TITRATE PER MD ORDER Last Titration: 11/16/18 17:00 Dose: 0 mcg/kg/min, 0 mls/hr Heparin Sodium/Sodium Chloride (Heparin 91354 Units/250ml 1/2 Normal Saline) 25,000 units in 250 mls @ 10.427 mls/hr IV .[id number] [facility]; Protocol Last Titration: 11/16/18 22:34 Dose: 14 units/kg/hr, 12.165 mls/hr Eptifibatide (Integrilin) 75 mg in 100 mls @ 13.903 mls/hr IV .Q7H12M [facility]; Protocol Last Admin: 11/17/18 01:40 Dose: 13.903 mls/hr Cefepime HCl (Maxipime 1gm) 1 gm in 100 mls @ 100 mls/hr IVPB Q12 [facility]; Protocol Last Admin: 11/16/18 21:31 Dose: 100 mls/hr Dexmedetomidine HCl (Precedex 400mcg/100ml) 400 mcg in 100 mls @ 4.345 mls/hr IV .Q23H1M PRN; Protocol PRN Reason: Agitation Insulin Human Regular (Humulin R Med) 0 units SC ACHS [facility]; Protocol Last Admin: 11/17/18 07:45 Dose: Not Given Metoprolol Tartrate (Lopressor) 25 mg PO BID [facility] Last Admin: 11/16/18 17:25 Dose: Not Given Ondansetron HCl (Zofran Inj) 4 mg IVP Q6H PRN PRN Reason: Nausea/Vomiting Last Admin: 11/15/18 05:03 Dose: 4 mg Thiamine HCl (Vitamin B1 Tab) 300 mg NG DAILY [facility] Last Admin: 11/16/18 17:24 Dose: 300 mg - Labs Labs: 11/17/18 05:45 11/17/18 05:45 PT 14.4 SECONDS (9.4-12.5) H 11/14/18 18:19 INR 1.30 11/14/18 18:19 APTT 51.1 Seconds (26.9-38.3) H 11/17/18 05:45 - Constitutional Appears: No Acute Distress - Head Exam Head Exam: ATRAUMATIC, NORMOCEPHALIC - Eye Exam Eye Exam: PERRL - ENT Exam ENT Exam: Mucous Membranes Moist - Respiratory Exam Respiratory Exam: Clear to Ausculation Bilateral, Rhonchi. absent: Rales, Wheezes - Cardiovascular Exam Cardiovascular Exam: REGULAR RHYTHM, +S1, +S2 - GI/Abdominal Exam GI & Abdominal Exam: Soft. absent: Tenderness - Extremities Exam Extremities Exam: absent: Calf Tenderness, Pedal Edema - Psychiatric Exam Psychiatric exam: Normal Mood - Skin Skin Exam: Dry, Warm Assessment and Plan - Assessment and Plan (Free Text) Assessment: Respiratory failure - ventilator dependent Status post cardiac arrest likely 2/2 cardiogenic shock vs septic shock Gram + cocci in clusters bacteremia Urinary tract infection COPD Hypertension Diabetes mellitus Peripheral vascular disease Started on Vanc for gram positive cocci in cluster bacteremia, Will repeat blood cx today Cont on Cefepime for the UTI - gram neg zachariah - day 2 Follow-up cardiology recommendations, cardiac cath - stents placed in LAD and circ, with triple vessel dx UA is positive, Follow-up urine culture Procal has been neg Follow-up further ICU recs Continue to monitor for any changes Line: R femoral TLC Case and plan to be reviewed and discussed with Dr. Fernandes. <Satya Fernandes - Last Filed: 11/17/18 11:33> Objective - Vital Signs/Intake and Output Vital Signs (last 24 hours): Temp Pulse Resp BP Pulse Ox 99.3 F 101 H 22 109/84 100 11/17/18 10:10 11/17/18 11:00 11/17/18 08:15 11/17/18 10:00 11/17/18 10:10 Intake and Output: 11/17/18 11/17/18 06:59 18:59 Intake Total 858 839 Output Total 900 Balance -42 839 - Medications Medications: Current Medications Amiodarone HCl (Cordarone) 400 mg PO BRKDIN [facility] Last Admin: 11/17/18 07:52 Dose: 400 mg Aspirin (Aspirin Chewable) 81 mg PO DAILY [facility] Last Admin: 11/17/18 08:59 Dose: 81 mg Atorvastatin Calcium (Lipitor) 40 mg PO DIN [facility] Last Admin: 11/16/18 17:23 Dose: 40 mg Clopidogrel Bisulfate (Plavix) 75 mg PO DAILY [facility] Last Admin: 11/17/18 08:59 Dose: 75 mg Dextrose (Dextrose 50% Inj) 0 ml IV STAT PRN; Protocol PRN Reason: Hypoglycemia Protocol Hydralazine HCl (Apresoline) 25 mg PO QID [facility] Last Admin: 11/17/18 09:01 Dose: Not Given Sodium Chloride (Sodium Chloride 0.9%) 1,000 mls @ 100 mls/hr IV .Q10H [facility] Last Admin: 11/15/18 06:00 Dose: 100 mls/hr Heparin Sodium/Sodium Chloride (Heparin 69737 Units/250ml 1/2 Normal Saline) 25,000 units in 250 mls @ 10.427 mls/hr IV .[id number] [facility]; Protocol Last Titration: 11/17/18 11:10 Dose: 16 units/kg/hr, 13.903 mls/hr Cefepime HCl (Maxipime 1gm) 1 gm in 100 mls @ 100 mls/hr IVPB Q12 [facility]; Protocol Last Admin: 11/17/18 08:59 Dose: 100 mls/hr Dexmedetomidine HCl (Precedex 400mcg/100ml) 400 mcg in 100 mls @ 4.345 mls/hr IV .Q23H1M PRN; Protocol PRN Reason: Agitation Vancomycin HCl (Vancomycin 1gm) 1 gm in 250 mls @ 167 mls/hr IVPB Q12H [facility]; Protocol Last Admin: 11/17/18 10:24 Dose: 167 mls/hr Insulin Human Regular (Humulin R Med) 0 units SC ACHS [facility]; Protocol Last Admin: 11/17/18 07:45 Dose: Not Given Metoprolol Tartrate (Lopressor) 25 mg PO BID [facility] Last Admin: 11/17/18 09:00 Dose: Not Given Ondansetron HCl (Zofran Inj) 4 mg IVP Q6H PRN PRN Reason: Nausea/Vomiting Last Admin: 11/15/18 05:03 Dose: 4 mg Pantoprazole Sodium (Protonix Inj) 40 mg IVP DAILY [facility] Thiamine HCl (Vitamin B1 Tab) 300 mg NG DAILY [facility] Last Admin: 11/17/18 08:59 Dose: 300 mg - Labs Labs: 11/17/18 05:45 11/17/18 05:45 PT 14.4 SECONDS (9.4-12.5) H 11/14/18 18:19 INR 1.30 11/14/18 18:19 APTT 45.9 Seconds (26.9-38.3) H 11/17/18 10:20 Attending/Attestation - Attestation I have personally seen and examined this patient.: Yes I have fully participated in the care of the patient.: Yes I have reviewed all pertinent clinical information, including history, physical exam and plan: Yes
[2018-11-17] MEDS: Cefepime 1gm in NS 100ml 1 GM/100 ML BAG IVPB SCH (08:59)
[2018-11-17] MEDS ORDERED: Magnesium Sulfate 2 gm/50 ml 2 GM/50 ML BAG IVPB ONE (09:26)
--- NOTE | 2018-11-17 09:48 | PN ---
SUBJECTIVE: The patient was seen and examined at bedside in the CCU. No acute events overnight. He is s/p cardiac catheterization which demonstrated multivessel disease and dilated, ischemic cardiomyopathy. He otherwise remains intubated and clinically unchanged. OBJECTIVE: VITAL SIGNS: Temperature 99.1, pulse 106, blood pressure 110/61, respiratory rate 26, oxygen saturation 100% on 40% FIO2. GENERAL: Intubated. HEENT: PERRL. ETT in place. NECK: No JVD. LUNGS: Clear to auscultation anteriorly. CARDIOVASCULAR: Tachycardic. No murmurs. ABDOMEN: Normoactive bowel sounds, soft, nontender, nondistended. EXTREMITIES: Trace pedal edema bilaterally. NEUROLOGIC: Awake but intubated, not following commands. LABORATORY DATA: WBC 9.9 with 93% neutrophils, hemoglobin 9, hematocrit 29, platelets 196. Sodium 145, potassium 3.4, chloride 120, bicarb 18, BUN 23, creatinine 1.2, glucose 131. Blood cultures with gram-positive cocci (in one set). Urine culture with gram-negative rods. ASSESSMENT: The patient is a 63-year-old man with multiple medical comorbidities who was admitted to the CCU s/p Vfib arrest. PLAN: 1. Vfib arrest. Input from Dr. Saxena noted and the patient remains clinically stable. Continue with CCU care. 2. Multivessel CAD s/p PCI with multiple stent placement. Continue with postprocedure care as per Dr. Saxena. Continue Aspirin 81 mg p.o. daily, Plavix 75 mg p.o. daily, Lipitor 40 mg p.o. daily and Metoprolol 25 mg p.o. b.i.d. 3. Dilated ischemic cardiomyopathy. Continue with care as above. Input from Dr. Saxena noted and greatly appreciated. 4. Ventilator-dependent respiratory failure. Input from Dr. Burr noted. Continue with care as per CCU team. Continue with daily weaning trials. 5. Altered mental status, etiology likely secondary to toxic metabolic encephalopathy. Input from Dr. Mcdaniels noted and EEG results reviewed. Continue with care as above. 6. Cardiogenic shock. Continue with care as above. We will attempt to wean the patient off vasopressors and balloon pump as tolerated. 7. Acute kidney injury. We will monitor the patient's renal function closely given his recent cardiac catheterization for contrast-induced nephropathy. Continue to monitor strict I&O's and renally dose medications. 8. Paroxysmal atrial fibrillation. The patient remains rate-controlled. 9. Normocytic anemia. Input from Dr. Hardy noted and no plans for acute GI intervention. The patient remains hemodynamically stable with no evidence of active bleed. 10. Type 2 diabetes mellitus. 11. Hypertension. 12. Thrombocytopenia secondary to ITP. 13. Anxiety disorder. 14. Prophylaxis. Continue Protonix for GI prophylaxis and Heparin for DVT prophylaxis. CODE STATUS: Full code. Yassine Martinez MD MTDD
[2018-11-17] MEDS: Vancomycin 1gm in NS 250ml 1 GM/250 ML BAG IVPB SCH ×2 (10:24→21:08)
--- NOTE | 2018-11-17 10:45 | CP.PCM.PN ---
<Isaac Champion - Last Filed: 11/17/18 10:42> Subjective - Date & Time of Evaluation Date of Evaluation: 11/17/18 Time of Evaluation: 08:40 - Subjective Subjective: PGY6 GI Fellow Progress Note Patient seen and examined bedside this morning. The patient remains intubated and has his eyes open but does not follow commands. No events overnight. 12 system ROS performed and negative except where stated Objective - Vital Signs/Intake and Output Vital Signs (last 24 hours): Temp Pulse Resp BP Pulse Ox 99.3 F 100 H 22 109/84 100 11/17/18 10:10 11/17/18 10:10 11/17/18 08:15 11/17/18 10:00 11/17/18 10:10 Intake and Output: 11/17/18 11/17/18 06:59 18:59 Intake Total 858 414 Output Total 900 Balance -42 414 - Medications Medications: Current Medications Amiodarone HCl (Cordarone) 400 mg PO BRKDIN [facility] Last Admin: 11/17/18 07:52 Dose: 400 mg Aspirin (Aspirin Chewable) 81 mg PO DAILY [facility] Last Admin: 11/17/18 08:59 Dose: 81 mg Atorvastatin Calcium (Lipitor) 40 mg PO DIN [facility] Last Admin: 11/16/18 17:23 Dose: 40 mg Clopidogrel Bisulfate (Plavix) 75 mg PO DAILY [facility] Last Admin: 11/17/18 08:59 Dose: 75 mg Dextrose (Dextrose 50% Inj) 0 ml IV STAT PRN; Protocol PRN Reason: Hypoglycemia Protocol Hydralazine HCl (Apresoline) 25 mg PO QID [facility] Last Admin: 11/17/18 09:01 Dose: Not Given Sodium Chloride (Sodium Chloride 0.9%) 1,000 mls @ 100 mls/hr IV .Q10H [facility] Last Admin: 11/15/18 06:00 Dose: 100 mls/hr Heparin Sodium/Sodium Chloride (Heparin 96991 Units/250ml 1/2 Normal Saline) 25,000 units in 250 mls @ 10.427 mls/hr IV .[id number] [facility]; Protocol Last Titration: 11/16/18 22:34 Dose: 14 units/kg/hr, 12.165 mls/hr Cefepime HCl (Maxipime 1gm) 1 gm in 100 mls @ 100 mls/hr IVPB Q12 [facility]; Protocol Last Admin: 11/17/18 08:59 Dose: 100 mls/hr Dexmedetomidine HCl (Precedex 400mcg/100ml) 400 mcg in 100 mls @ 4.345 mls/hr IV .Q23H1M PRN; Protocol PRN Reason: Agitation Vancomycin HCl (Vancomycin 1gm) 1 gm in 250 mls @ 167 mls/hr IVPB Q12H [facility]; Protocol Last Admin: 11/17/18 10:24 Dose: 167 mls/hr Insulin Human Regular (Humulin R Med) 0 units SC ACHS [facility]; Protocol Last Admin: 11/17/18 07:45 Dose: Not Given Metoprolol Tartrate (Lopressor) 25 mg PO BID [facility] Last Admin: 11/17/18 09:00 Dose: Not Given Ondansetron HCl (Zofran Inj) 4 mg IVP Q6H PRN PRN Reason: Nausea/Vomiting Last Admin: 11/15/18 05:03 Dose: 4 mg Pantoprazole Sodium (Protonix Inj) 40 mg IVP DAILY [facility] Thiamine HCl (Vitamin B1 Tab) 300 mg NG DAILY [facility] Last Admin: 11/17/18 08:59 Dose: 300 mg - Labs Labs: 11/17/18 05:45 11/17/18 05:45 PT 14.4 SECONDS (9.4-12.5) H 11/14/18 18:19 INR 1.30 11/14/18 18:19 APTT 51.1 Seconds (26.9-38.3) H 11/17/18 05:45 - Constitutional Appears: No Acute Distress, Chronically Ill - Eye Exam Eye Exam: PERRL - ENT Exam ENT Exam: Mucous Membranes Moist Additional comments: ETT present - Respiratory Exam Respiratory Exam: Clear to Ausculation Bilateral. absent: Rales, Rhonchi, Wheezes - Cardiovascular Exam Cardiovascular Exam: RRR, +S1, +S2 - GI/Abdominal Exam GI & Abdominal Exam: Soft, Normal Bowel Sounds. absent: Distended, Firm, Guarding, Rigid, Tenderness, Organomegaly - Extremities Exam Additional comments: right groin triple lumen with blood around port noted; left groin with IABP - Neurological Exam Neurological Exam: Awake - Skin Skin Exam: Dry, Warm Assessment and Plan - Assessment and Plan (Free Text) Assessment: Patient is a 63yo male with PMHx significant for biventricular CHF, atrial fibrillation, diabetes type 2, hypertension, GERD, ITP (on TPO agonist), pseudogout, anxiety, COPD, CKD who was admitted for evaluation and treatment s/p cardiac arrest in the field. GI consulted for anemia/possible GI bleed -S/P cardiac arrest; currently with IABP -Chronic normocytic anemia Plan: -Ongoing ICU and cardiac care - IABP present -Bleeding noted at right groin tripl elumen site -On Integrilin and heparin gtts - Integrilin to be D/C this AM -Other than right groin, no evidence for acute bleeding; no overt GI bleeding noted presently -No plans for endoscopic eval given significant risk to patient with ongoing cardiac dysfunction and no sign of overt GI losses -ICU level care -If patient develops any signs of bleeding, encourage transfusion support for now -No further recommendations at this time <Kiko Hardy V - Last Filed: 11/17/18 23:14> Objective - Vital Signs/Intake and Output Vital Signs (last 24 hours): Temp Pulse Resp BP Pulse Ox 100.2 F H 95 H 30 H 126/78 97 11/17/18 18:20 11/17/18 20:08 11/17/18 18:20 11/17/18 20:08 11/17/18 18:20 Intake and Output: 11/17/18 11/18/18 18:59 06:59 Intake Total 1128 Output Total 815 Balance 313 - Medications Medications: Current Medications Amiodarone HCl (Cordarone) 400 mg PO BRKDIN [facility] Last Admin: 11/17/18 17:08 Dose: 400 mg Aspirin (Aspirin Chewable) 81 mg PO DAILY [facility] Last Admin: 11/17/18 08:59 Dose: 81 mg Atorvastatin Calcium (Lipitor) 40 mg PO DIN [facility] Last Admin: 11/17/18 17:08 Dose: 40 mg Clopidogrel Bisulfate (Plavix) 75 mg PO DAILY [facility] Last Admin: 11/17/18 08:59 Dose: 75 mg Collagenase (Santyl) 0 gm TOP DAILY [facility] Dextrose (Dextrose 50% Inj) 0 ml IV STAT PRN; Protocol PRN Reason: Hypoglycemia Protocol Famotidine (Pepcid) 20 mg IVP Q12 [facility] Last Admin: 11/17/18 21:08 Dose: 20 mg Hydralazine HCl (Apresoline) 25 mg PO QID [facility] Last Admin: 11/17/18 18:51 Dose: Not Given Sodium Chloride (Sodium Chloride 0.9%) 1,000 mls @ 100 mls/hr IV .Q10H [facility] Last Admin: 11/15/18 06:00 Dose: 100 mls/hr Heparin Sodium/Sodium Chloride (Heparin 50088 Units/250ml 1/2 Normal Saline) 25,000 units in 250 mls @ 10.427 mls/hr IV .[id number] [facility]; Protocol Last Titration: 11/17/18 12:45 Dose: 0 units/kg/hr, 0 mls/hr Dexmedetomidine HCl (Precedex 400mcg/100ml) 400 mcg in 100 mls @ 4.345 mls/hr IV .Q23H1M PRN; Protocol PRN Reason: Agitation Vancomycin HCl (Vancomycin 1gm) 1 gm in 250 mls @ 167 mls/hr IVPB Q12H [facility]; Protocol Last Admin: 11/17/18 21:08 Dose: 167 mls/hr Meropenem (Merrem Iv 1 Gm Premix) 1 gm in 50 mls @ 100 mls/hr IVPB Q8 [facility]; Protocol Stop: 11/26/18 14:01 Last Admin: 11/17/18 21:08 Dose: 100 mls/hr Insulin Human Regular (Humulin R Med) 0 units SC ACHS [facility]; Protocol Last Admin: 11/17/18 22:01 Dose: Not Given Lisinopril (Zestril) 2.5 mg PO DAILY [facility] Metoprolol Tartrate (Lopressor) 25 mg PO BID [facility] Last Admin: 11/17/18 17:08 Dose: 25 mg Ondansetron HCl (Zofran Inj) 4 mg IVP Q6H PRN PRN Reason: Nausea/Vomiting Last Admin: 11/15/18 05:03 Dose: 4 mg Thiamine HCl (Vitamin B1 Tab) 300 mg NG DAILY [facility] Last Admin: 11/17/18 08:59 Dose: 300 mg Vitamin A (Vitamin A & D Oint Ud Foilpak) 1 ea TOP Q4H PRN PRN Reason: Dry skin Last Admin: 11/17/18 15:10 Dose: 1 ea - Labs Labs: 11/17/18 05:45 11/17/18 05:45 PT 14.4 SECONDS (9.4-12.5) H 11/14/18 18:19 INR 1.30 11/14/18 18:19 APTT 45.9 Seconds (26.9-38.3) H 11/17/18 10:20 Attending/Attestation - Attestation I have personally seen and examined this patient.: Yes I have fully participated in the care of the patient.: Yes I have reviewed all pertinent clinical information, including history, physical exam and plan: Yes Notes (Text): This patient was seen and evaluated earlier along with the fellow. This is an addendum to the GI progress report dictated by the fellow. No obvious bright red blood per rectum or melena now. Hemoglobin remained stable. Close follow- up of the hemoglobin hematocrit continue PPI 11/17/18 23:13
--- NOTE | 2018-11-17 10:46 | PN ---
DATE: 11/17/2018 CARDIOLOGY FOLLOWUP SUBJECTIVE: The patient remains on a ventilator as well as intraaortic balloon pump support. PHYSICAL EXAMINATION: VITAL SIGNS: Blood pressure 105/60 with mean pressure on balloon pump of approximately 80, heart rate is in the 90s, normal sinus rhythm. NECK: Negative JVD. HEART: Reveals S1, S2. LUNGS: Decreased breath sounds. 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 Pulses are Doppler. LABORATORY DATA: BUN and creatinine is unremarkable. The potassium is 3.4 with a glucose of 131, platelet count is 196 with a hemoglobin of 9.2. IMPRESSION: 1. Cardiogenic shock. 2. Ischemic dilated cardiomyopathy. 3. Status post ventricular fibrillation arrest. 4. Anoxic encephalopathy. 5. Respiratory failure. 6. Diabetes mellitus. 7. Chronic obstructive pulmonary disease. Given these findings, I have discussed with the personnel records clerk about attempted trying to wean the patient off the ventilator. We will keep the patient on balloon pump for the next 24 hours. Benjamin Saxena MD
--- NOTE | 2018-11-17 12:08 | PN ---
DATE: 11/17/2018 SUBJECTIVE: The patient is currently seen in ICU, bed 5. He is completed the hypothermia protocol. He remains connected to an intra-aortic balloon pump. The ratio of 1:1. The patient's eyes are open. He is staring at the ceiling, but is noncommunicative and nonresponsive. He is status post cardiac catheterization yesterday which showed multivessel coronary artery disease and an extremely low ejection fraction of less than 20%. PHYSICAL EXAMINATION: INTAKE/OUTPUT. Intake is 1819, output is 1250. The patient has had 900 mL of urine so far today. VITAL SIGNS: Blood pressure is 109/84. Pulse is 100. Temperature is 99.3, respiratory rate on the ventilator is 22. HEENT: Shows him to be normocephalic, atraumatic. Eyes remain open. The patient is not focusing or tracking me. He has an NG tube in place. He has an ET tube in place. Conjunctivae are pale. Sclerae are nonicteric. NECK: No neck vein distention. CARDIOVASCULAR: Shows a regular rate and rhythm. No S3. No S4. Positive MR, TR and AI. No rub. CHEST: Slight decreased breath sounds at the bases with scattered rhonchi. No rales or wheezing. ABDOMEN: Soft. Bowel sounds normal. No rebound, guarding or masses. EXTREMITIES: Show no lower extremity edema. No cyanosis or clubbing. NEUROLOGIC: Shows him to be unresponsive to verbal stimuli. LABORATORY DATA AND IMAGING: Chest x-ray today shows an ET tube and an NG tube in place. No acute pulmonary disease. CBC, white blood cell count 9.9, hemoglobin is 9.2 with a platelet count of 196,000. Coags show a PTT of 51.1. Blood gas today, pH of 7.39 with a pCO2 of 24 and pO2 of 176 on 40% FIO2. Chemistries today show potassium of 3.4. Magnesium 1.6. This was supplemented. BUN is excellent at 23 with a creatinine of 1.2. Glucose is 131. Slight elevation of his AST. Bilirubin is normal. Calcium level is 7.8 and corrects to normal for an albumin of 2.7. Microbiology, urine cultures are positive for Proteus. Blood cultures are positive for gram-positive cocci. MEDICATIONS: Medication list reviewed. The patient is on hydralazine, aspirin, amiodarone, IV heparin, sliding scale insulin, Lipitor, Lopressor, Maxipime, Precedex, Protonix, vancomycin, vitamin B1, and Zofran p.r.n. ASSESSMENT AND PLAN: 1. Cardiac arrest secondary to acute myocardial infarction in the setting of biventricular fairly with cardiogenic shock. The patient has an extremely low ejection fraction anywhere from below 20% on the cardiac catheterization to 26% on the echocardiogram. He is status post ventricular tachycardia with an in hospital cardiac arrest x2. He is status post therapeutic hypothermia. He remains on a ventilator and weaning attempts are being done. 2. Past history of chronic kidney disease stage III. His renal parameters are actually at best levels with improvement in cardiac output. The patient has an intra-aortic balloon pump in place to assist in cardiac output and to improve his left ventricular function. 3. History of noninsulin-dependent diabetes mellitus. The patient remains on sliding scale insulin. 4. Sepsis with urinary tract infection and positive blood cultures. The patient remains on antibiotic therapy. 5. History of paroxysmal atrial fibrillation. He appears to be in sinus rhythm presently. He remains on heparin. 6. History of pulmonary hypertension which is severe. 7. History of valvular heart disease with mitral regurgitation/aortic insufficiency/tricuspid regurgitation. 8. History of anemia. Hemoglobin is stable in 9 to 10 range. 9. History of mild hypomagnesemia and hypokalemia. The patient has received supplements intravenously earlier today. PLAN: 1. Continue present level of care. 2. Management of the intra-aortic balloon pump as per Cardiology. 3. Encourage by the fact that his urine output is excellent with improvement in cardiac output with the patient currently being on intra-aortic balloon pump. 4. Complete course of antibiotic therapy. 5. Continue to monitor sugars and maintain euglycemia with sliding scale insulin. 6. Uncertain as to the patient's level of mentation post his cardiac arrest. The patient did have an EEG which did show diffuse slowing of brain wave activity. 7. Avoid all nephrotoxic agents in light of his past history of chronic kidney disease. 8. Case discussed with staff in the ICU. Greater than 35 minutes spent in the care and coordination of this critically ill patient. Margarito Mcnamara MD [facility] # [id number] MOE
[2018-11-17] MEDS: Meropenem IV 1 gm in NS 1 GM/50 ML BAG IVPB SCH ×2 (13:46→21:08)
[2018-11-17] MEDS: Vitamins A & D Oint UD Foilpak TOP PRN (15:10)
--- NOTE | 2018-11-17 20:49 | CARD ---
APPROVED REPORT Date of service: 11/17/2018 EKG Measurement Heart [id number] <Conclusion> Sinus tachycardia Nonspecific intraventricular block T wave abnormalities diffusely CCR Abnormal ECG
[2018-11-17] MEDS ORDERED: Levalbuterol 1.25 MG/3 ML Inhal Soln UD IH PRN (23:43)
[2018-11-18 05:30] LABS: ARTERIAL BLOOD GAS HCO3 15.1 mmol/L (21-28); ARTERIAL BLOOD GAS HEMOGLOBIN 9.7 g/dL (11.7-17.4); ARTERIAL BLOOD GAS O2 CAPACITY 13.4 mL/dl (16-24); ARTERIAL BLOOD GAS O2 CONTENT 13.3 ML/dl (15-23); ARTERIAL BLOOD GAS PCO2 28 mm/Hg (35-45); ARTERIAL BLOOD GAS PH 7.34 (7.35-7.45)
[2018-11-18] MEDS: Meropenem IV 1 gm in NS 1 GM/50 ML BAG IVPB SCH ×3 (05:55→21:53)
[2018-11-18 06:42] LABS: BASO # 0.03 K/mm3 (0.0-2.0); BASO % 0.3 % (0.0-3.0); EOS % 0.3 % (1.5-5.0); HEMOGLOBIN 9.7 g/dL (14.0-18.0); LYMPH # 0.5 (1.2-3.4); MEAN CELL VOLUME 86.1 fl (80.0-105.0); MEAN CORPUSCULAR HGB CONC 30.2 g/dl (31.0-37.0); MEAN PLATELET VOLUME 10.5 fl (7.0-11.0); MONO # 0.4 (0.1-0.6); RBC 3.73 10^6/uL (3.5-6.1); RED CELL DISTRIBUTION WIDTH 16.6 % (11.5-14.5); WHITE BLOOD COUNT 11.6 10^3/uL (4.5-11.0)
[2018-11-18 07:10] LABS: ALB/GLOB RATIO 0.8 (1.1-1.8); ALT/SGPT 21 U/L (7-56); AST/SGOT 40 U/L (17-59); BLOOD UREA NITROGEN 20 mg/dL (7-21); GFR NON-AFRICAN AMERICAN > 60
[2018-11-18] MEDS ORDERED: DOBUTamine 500mg/250ml D5W 500 MG/250 ML BAG IV PRN (07:37)
[2018-11-18] MEDS: Vancomycin 1gm in NS 250ml 1 GM/250 ML BAG IVPB SCH ×2 (08:01→21:52)
[2018-11-18] MEDS: Insulin Reg-MEDIUM-Coverage SC SCH ×4 (08:03→21:54)
--- NOTE | 2018-11-18 09:13 | CP.CCUPN ---
<Ismael Turner - Last Filed: 11/18/18 11:12> CCU Subjective - Physician Review Subjective (Free Text): Ismael Turner PGY-1 Critical Care Progress Note Patient seen and evaluated at bedside. No acute events reported overnight. Currently on nasal cannula, off sedation. Patient opens eyes spontaneously and responds to painful stimuli. Further ROS unable to be obtained due to clinical condition. CCU Objective - Vital Signs / Intake & Output Vital Signs (Last 4 hours): Vital Signs Temp Pulse Resp BP Pulse Ox 11/18/18 08:02 96 H 120/66 11/18/18 08:01 119/69 11/18/18 06:20 100.0 F H 100 H 41 H 97 11/18/18 06:17 100.0 F H 100 H 97 11/18/18 06:10 100.0 F H 99 H 98 11/18/18 06:09 100.0 F H 100 H 97 11/18/18 06:00 100.0 F H 103 H 45 H 116/71 100 11/18/18 05:50 99.9 F H 99 H 14 100 11/18/18 05:44 99.9 F H 99 H 99 11/18/18 05:40 99.9 F H 103 H 29 H 98 11/18/18 05:39 99.9 F H 92 H 99 11/18/18 05:37 99.9 F H 97 H 98 11/18/18 05:32 99.9 F H 96 H 100 11/18/18 05:30 99.9 F H 95 H 36 H 100 11/18/18 05:26 99.9 F H 101 H 100 11/18/18 05:20 99.9 F H 96 H 36 H 98 11/18/18 05:10 99.9 F H 99 H 36 H 98 11/18/18 05:08 99.9 F H 99 H 99 Intake and Output (Last 8hrs): Intake & Output 11/17/18 11/18/18 11/18/18 22:59 06:59 14:59 Intake Total 180 450 Output Total 175 600 Balance 5 -150 Intake: IV 100 450 IVPB 100 450 Other 80 Output: Urine 175 600 Urethral (Ash) 175 600 Other: # Bowel Movements 1 - Physical Exam Head: Positive for: Atraumatic, Normocephalic Pupils: Positive for: PERRL, Other (2mm, reactive) Conjunctiva: Positive for: Normal Mouth: Positive for: Moist Mucous Membranes, Other (OGT in place) Neck: Positive for: Trachea Midline. Negative for: JVD, Lymphadenopathy Respiratory/Chest: Positive for: Clear to Auscultation, Good Air Exchange. Negative for: Respiratory Distress, Accessory Muscle Use Cardiovascular: Positive for: Normal S1, S2. Negative for: Murmurs Abdomen: Positive for: Normal Bowel Sounds. Negative for: Tenderness Rectal: Positive for: Other (Guaiac +, black stools. GI bleed. ITPE.) Genitourinary Male: Positive for: Other (R femoral TLC in place) Back: Positive for: Normal Inspection Upper Extremity: Positive for: Normal Inspection. Negative for: Cyanosis, Edema Lower Extremity: Positive for: Normal Inspection. Negative for: Edema Neurological: Positive for: Other (corneal and gag reflex present, withdraws to painful stimuli) Skin: Positive for: Warm, Dry, Pale. Negative for: Rashes Psychiatric: Negative for: Alert - Medications Active Medications: Active Medications Generic Name Dose Route Start Last Admin Trade Name Freq PRN Reason Stop Dose Admin Amiodarone HCl 400 mg 11/16/18 17:00 11/18/18 07:58 Cordarone PO Not Given BRKDIN [facility] Aspirin 81 mg 11/15/18 16:45 11/17/18 08:59 Aspirin Chewable PO 81 mg DAILY JHON Administration Atorvastatin Calcium 40 mg 11/16/18 14:50 11/17/18 17:08 Lipitor PO 40 mg DIN JHON Administration Clopidogrel Bisulfate 75 mg 11/17/18 10:00 11/17/18 08:59 Plavix PO 75 mg DAILY [facility] Administration Collagenase 0 gm 11/18/18 10:00 Santyl TOP DAILY JHON Dextrose 0 ml 11/15/18 16:18 Dextrose 50% Inj IV STAT PRN Hypoglycemia Protocol Protocol Enoxaparin Sodium 40 mg 11/18/18 10:00 Lovenox SC DAILY [facility] Protocol Famotidine 20 mg 11/17/18 22:00 11/17/18 21:08 Pepcid IVP 20 mg Q12 JHON Administration Hydralazine HCl 25 mg 11/15/18 10:00 11/18/18 05:12 Apresoline PO Not Given QID [facility] Sodium Chloride 1,000 mls @ 100 mls/hr 11/14/18 19:00 11/15/18 06:00 Sodium Chloride 0.9% IV 100 mls/hr .Q10H JHON Administration Vancomycin HCl 1 gm in 250 mls @ 167 mls/hr 11/17/18 09:00 11/18/18 08:01 Vancomycin 1gm IVPB 167 mls/hr Q12H J[facility]ON Administration Protocol Meropenem 1 gm in 50 mls @ 100 mls/hr 11/17/18 14:00 11/18/18 05:55 Merrem Iv 1 Gm Premix IVPB 11/26/18 14:01 100 mls/hr Q8 JHON Administration Protocol Dobutamine HCl/Dextrose 500 mg in 250 mls @ 6.256 mls/hr 11/18/18 07:37 11/18/18 08:02 Dobutamine/Dextrose 5% 500mg/250ml IV 2.5 mcg/kg/min .Q24H PRN 6.256 mls/hr TITRATE PER PROTOCOL Administration Protocol 2.5 MCG/KG/MIN Insulin Human Regular 0 units 11/16/18 22:00 11/18/18 08:03 Humulin R Med SC Not Given ACHS [facility] Protocol Levalbuterol HCl 1.25 mg 11/17/18 23:43 11/17/18 23:56 Xopenex IH 1.25 mg [id number] PRN Administration Shortness of Breath Lisinopril 2.5 mg 11/18/18 10:00 Zestril PO DAILY [facility] Ondansetron HCl 4 mg 11/15/18 04:15 11/15/18 05:03 Zofran Inj IVP 4 mg Q6H PRN Administration Nausea/Vomiting Thiamine HCl 300 mg 11/16/18 17:00 11/17/18 08:59 Vitamin B1 Tab NG 300 mg DAILY [facility]ON Administration Vitamin A 1 ea 11/17/18 14:51 11/17/18 15:10 Vitamin A & D Oint Ud Foilpak TOP 1 ea Q4H PRN Administration Dry skin - Patient Studies Lab Studies: Microbiology Studies 11/17/18 08:38 Gram Stain - Final Sputum Induced 11/14/18 18:19 Blood Culture - Preliminary Blood Gram Positive Cocci Gram Stain - Final 11/14/18 18:49 S.aureus & Coag-Neg Staph PNA FISH - Final Blood Blood Culture - Preliminary Gram Positive Cocci Gram Stain - Final 11/14/18 21:21 MRSA Culture (Admit) - Final Naris MRSA NOT DETECTED 11/14/18 19:00 Urine Culture - Final Urine Random Proteus Mirabilis Lab Studies 11/18/18 11/18/18 11/18/18 Range/Units 07:49 05:30 05:30 WBC 11.6 H (4.5-11.0) 10^3/uL RBC 3.73 (3.5-6.1) 10^6/uL Hgb 9.7 L (14.0-18.0) g/dL Hct 32.1 L (42.0-52.0) % MCV 86.1 (80.0-105.0) fl MCH 26.0 (25.0-35.0) pg MCHC 30.2 L (31.0-37.0) g/dl RDW 16.6 H (11.5-14.5) % Plt Count 173 (120.0-450.0) 10^3/uL MPV 10.5 (7.0-11.0) fl Neut % (Auto) 92.4 H (50.0-68.0) % Lymph % (Auto) 4.0 L (22.0-35.0) % [place] % (Auto) 3.0 (1.0-6.0) % Eos % (Auto) 0.3 L (1.5-5.0) % Baso % (Auto) 0.3 (0.0-3.0) % Lymph # (Auto) 0.5 L (1.2-3.4) [place] # (Auto) 0.4 (0.1-0.6) Eos # (Auto) 0.0 (0.0-0.7) Baso # (Auto) 0.03 (0.0-2.0) K/mm3 Absolute Neuts (auto) 10.76 H (1.4-6.5) APTT (26.9-38.3) Seconds pCO2 (35-45) mm/Hg pO2 (80-100) mm/Hg HCO3 (21-28) mmol/L ABG pH (7.35-7.45) ABG Total CO2 (22-28) mmol.L ABG O2 Saturation (95-98) % ABG O2 Content (15-23) ML/dl ABG Base Excess (-2.0-3.0) mmol/L ABG Hemoglobin (11.7-17.4) g/dL ABG Carboxyhemoglobin (0.5-1.5) % POC ABG HHb (Measured) (0-5) % ABG Methemoglobin (0.0-3.0) % ABG O2 Capacity (16-24) mL/dl Hgb O2 Saturation (95.0-98.0) % FiO2 % Sodium 146 (132-148) mmol/L Potassium 3.9 (3.6-5.0) mmol/L Chloride 120 H (98-107) mmol/L Carbon Dioxide 18 L (21-33) mmol/L Anion Gap 12 (10-20) BUN 20 (7-21) mg/dL Creatinine 1.1 (0.8-1.5) mg/dl Est GFR ( Amer) > 60 Est GFR (Non-Af Amer) > 60 POC Glucose (mg/dL) 171 H (65-110) mg/dL Random Glucose 158 H (70-110) mg/dL Calcium 8.0 L (8.4-10.5) mg/dL Phosphorus 3.8 (2.5-4.5) mg/dL Magnesium 2.1 (1.7-2.2) mg/dL Total Bilirubin 0.6 (0.2-1.3) mg/dL AST 40 (17-59) U/L ALT 21 (7-56) U/L Alkaline Phosphatase 79 (38-126) U/L Total Protein 6.7 (5.8-8.3) g/dL Albumin 3.0 (3.0-4.8) g/dL Globulin 3.8 gm/dL Albumin/Globulin Ratio 0.8 L (1.1-1.8) 11/18/18 11/17/18 11/17/18 Range/Units 05:10 22:00 16:11 WBC (4.5-11.0) 10^3/uL RBC (3.5-6.1) 10^6/uL Hgb (14.0-18.0) g/dL Hct (42.0-52.0) % MCV (80.0-105.0) fl MCH (25.0-35.0) pg MCHC (31.0-37.0) g/dl RDW (11.5-14.5) % Plt Count (120.0-450.0) 10^3/uL MPV (7.0-11.0) fl Neut % (Auto) (50.0-68.0) % Lymph % (Auto) (22.0-35.0) % [place] % (Auto) (1.0-6.0) % Eos % (Auto) (1.5-5.0) % Baso % (Auto) (0.0-3.0) % Lymph # (Auto) (1.2-3.4) [place] # (Auto) (0.1-0.6) Eos # (Auto) (0.0-0.7) Baso # (Auto) (0.0-2.0) K/mm3 Absolute Neuts (auto) (1.4-6.5) APTT (26.9-38.3) Seconds pCO2 28 L (35-45) mm/Hg pO2 102.0 H (80-100) mm/Hg HCO3 15.1 L (21-28) mmol/L ABG pH 7.34 L (7.35-7.45) ABG Total CO2 16.0 L (22-28) mmol.L ABG O2 Saturation 99.0 H (95-98) % ABG O2 Content 13.3 L (15-23) ML/dl ABG Base Excess -9.5 L (-2.0-3.0) mmol/L ABG Hemoglobin 9.7 L (11.7-17.4) g/dL ABG Carboxyhemoglobin 1.8 H (0.5-1.5) % POC ABG HHb (Measured) 1.0 (0-5) % ABG Methemoglobin 0.6 (0.0-3.0) % ABG O2 Capacity 13.4 L (16-24) mL/dl Hgb O2 Saturation 96.6 (95.0-98.0) % FiO2 28.0 % Sodium (132-148) mmol/L Potassium (3.6-5.0) mmol/L Chloride (98-107) mmol/L Carbon Dioxide (21-33) mmol/L Anion Gap (10-20) BUN (7-21) mg/dL Creatinine (0.8-1.5) mg/dl Est GFR ( Amer) Est GFR (Non-Af Amer) POC Glucose (mg/dL) 163 H 148 H (65-110) mg/dL Random Glucose (70-110) mg/dL Calcium (8.4-10.5) mg/dL Phosphorus (2.5-4.5) mg/dL Magnesium (1.7-2.2) mg/dL Total Bilirubin (0.2-1.3) mg/dL AST (17-59) U/L ALT (7-56) U/L Alkaline Phosphatase (38-126) U/L Total Protein (5.8-8.3) g/dL Albumin (3.0-4.8) g/dL Globulin gm/dL Albumin/Globulin Ratio (1.1-1.8) 11/17/18 11/17/18 Range/Units 11:42 10:20 WBC (4.5-11.0) 10^3/uL RBC (3.5-6.1) 10^6/uL Hgb (14.0-18.0) g/dL Hct (42.0-52.0) % MCV (80.0-105.0) fl MCH (25.0-35.0) pg MCHC (31.0-37.0) g/dl RDW (11.5-14.5) % Plt Count (120.0-450.0) 10^3/uL MPV (7.0-11.0) fl Neut % (Auto) (50.0-68.0) % Lymph % (Auto) (22.0-35.0) % [place] % (Auto) (1.0-6.0) % Eos % (Auto) (1.5-5.0) % Baso % (Auto) (0.0-3.0) % Lymph # (Auto) (1.2-3.4) [place] # (Auto) (0.1-0.6) Eos # (Auto) (0.0-0.7) Baso # (Auto) (0.0-2.0) K/mm3 Absolute Neuts (auto) (1.4-6.5) APTT 45.9 H (26.9-38.3) Seconds pCO2 (35-45) mm/Hg pO2 (80-100) mm/Hg HCO3 (21-28) mmol/L ABG pH (7.35-7.45) ABG Total CO2 (22-28) mmol.L ABG O2 Saturation (95-98) % ABG O2 Content (15-23) ML/dl ABG Base Excess (-2.0-3.0) mmol/L ABG Hemoglobin (11.7-17.4) g/dL ABG Carboxyhemoglobin (0.5-1.5) % POC ABG HHb (Measured) (0-5) % ABG Methemoglobin (0.0-3.0) % ABG O2 Capacity (16-24) mL/dl Hgb O2 Saturation (95.0-98.0) % FiO2 % Sodium (132-148) mmol/L Potassium (3.6-5.0) mmol/L Chloride (98-107) mmol/L Carbon Dioxide (21-33) mmol/L Anion Gap (10-20) BUN (7-21) mg/dL Creatinine (0.8-1.5) mg/dl Est GFR ( Amer) Est GFR (Non-Af Amer) POC Glucose (mg/dL) 144 H (65-110) mg/dL Random Glucose (70-110) mg/dL Calcium (8.4-10.5) mg/dL Phosphorus (2.5-4.5) mg/dL Magnesium (1.7-2.2) mg/dL Total Bilirubin (0.2-1.3) mg/dL AST (17-59) U/L ALT (7-56) U/L Alkaline Phosphatase (38-126) U/L Total Protein (5.8-8.3) g/dL Albumin (3.0-4.8) g/dL Globulin gm/dL Albumin/Globulin Ratio (1.1-1.8) Laboratory Results - last 24 hr 11/17/18 11/17/18 11/17/18 10:20 11:42 16:11 WBC RBC Hgb Hct MCV MCH MCHC RDW Plt Count MPV Neut % (Auto) Lymph % (Auto) [place] % (Auto) Eos % (Auto) Baso % (Auto) Lymph # (Auto) [place] # (Auto) Eos # (Auto) Baso # (Auto) Absolute Neuts (auto) APTT 45.9 H pCO2 pO2 HCO3 ABG pH ABG Total CO2 ABG O2 Saturation ABG O2 Content ABG Base Excess ABG Hemoglobin ABG Carboxyhemoglobin POC ABG HHb (Measured) ABG Methemoglobin ABG O2 Capacity Hgb O2 Saturation FiO2 Sodium Potassium Chloride Carbon Dioxide Anion Gap BUN Creatinine Est GFR ( Amer) Est GFR (Non-Af Amer) POC Glucose (mg/dL) 144 H 148 H Random Glucose Calcium Phosphorus Magnesium Total Bilirubin AST ALT Alkaline Phosphatase Total Protein Albumin Globulin Albumin/Globulin Ratio 11/17/18 11/18/18 11/18/18 22:00 05:10 05:30 WBC 11.6 H RBC 3.73 Hgb 9.7 L Hct 32.1 L MCV 86.1 MCH 26.0 MCHC 30.2 L RDW 16.6 H Plt Count 173 MPV 10.5 Neut % (Auto) 92.4 H Lymph % (Auto) 4.0 L [place] % (Auto) 3.0 Eos % (Auto) 0.3 L Baso % (Auto) 0.3 Lymph # (Auto) 0.5 L [place] # (Auto) 0.4 Eos # (Auto) 0.0 Baso # (Auto) 0.03 Absolute Neuts (auto) 10.76 H APTT pCO2 28 L pO2 102.0 H HCO3 15.1 L ABG pH 7.34 L ABG Total CO2 16.0 L ABG O2 Saturation 99.0 H ABG O2 Content 13.3 L ABG Base Excess -9.5 L ABG Hemoglobin 9.7 L ABG Carboxyhemoglobin 1.8 H POC ABG HHb (Measured) 1.0 ABG Methemoglobin 0.6 ABG O2 Capacity 13.4 L Hgb O2 Saturation 96.6 FiO2 28.0 Sodium Potassium Chloride Carbon Dioxide Anion Gap BUN Creatinine Est GFR ( Amer) Est GFR (Non-Af Amer) POC Glucose (mg/dL) 163 H Random Glucose Calcium Phosphorus Magnesium Total Bilirubin AST ALT Alkaline Phosphatase Total Protein Albumin Globulin Albumin/Globulin Ratio 11/18/18 11/18/18 05:30 07:49 WBC RBC Hgb Hct MCV MCH MCHC RDW Plt Count MPV Neut % (Auto) Lymph % (Auto) [place] % (Auto) Eos % (Auto) Baso % (Auto) Lymph # (Auto) [place] # (Auto) Eos # (Auto) Baso # (Auto) Absolute Neuts (auto) APTT pCO2 pO2 HCO3 ABG pH ABG Total CO2 ABG O2 Saturation ABG O2 Content ABG Base Excess ABG Hemoglobin ABG Carboxyhemoglobin POC ABG HHb (Measured) ABG Methemoglobin ABG O2 Capacity Hgb O2 Saturation FiO2 Sodium 146 Potassium 3.9 Chloride 120 H Carbon Dioxide 18 L Anion Gap 12 BUN 20 Creatinine 1.1 Est GFR ( Amer) > 60 Est GFR (Non-Af Amer) > 60 POC Glucose (mg/dL) 171 H Random Glucose 158 H Calcium 8.0 L Phosphorus 3.8 Magnesium 2.1 Total Bilirubin 0.6 AST 40 ALT 21 Alkaline Phosphatase 79 Total Protein 6.7 Albumin 3.0 Globulin 3.8 Albumin/Globulin Ratio 0.8 L EKG/Cardiology Studies: Cardiology / EKG Studies 11/17/18 15:00 ELECTROCARDIOGRAM DAILY Comment: Reason For Exam: chest pain Fingerstick Blood Sugar Results: 163 Review of Systems - Review of Systems Systems not reviewed;Unavailable: Altered Mental Status Critical Care Progress Note - Nutrition Nutrition: Nutrition Category Date Time Status NPO Diet [DIET] Diets 11/16/18 Lunch Ordered Assessment/Plan - Assessment and Plan (Free Text) Assessment: 63 year old male with a PMHx of severely dilated cardiomyopathy EF 14%, moderate pulmonary hypertension, paroxysmal atrial fibrillation, ITP normocytic anemia, DM II, hypertension, pseudogout, anxiety, PVD who was brought in by EMS as he was found pulseness in ventricular fibrillation. Currently tachypneic on nasal cannula. Cardiovascular -Maintain MAP>65, afterload reduction -IABP removed 11/17 -Lasix 40 mg IVP once -Continue Amiodarone BID, ASA/Plavix, ROBERTO -Begin Dobutamine drip at 2.5 -C/w imdur 30mg po qd, hydralazine 25mg po qid, lipitor 40mg po din, metoprolol tartrate 25mg po bid (all administered via ngt) -S/P cardiac arrest; troponin 25.80 -> 25.40 -> 24 -BNP 22,500 -11/16/18 echo shows EF 20%, will get repeat in 24-48 hours -Cardiology consulted - Dr. Saxena. 11.16.18 Cardiac cath 1 FRANCO in circumflex, 2 FRANCO in LAD -Awaiting PICC line placement today Gastrintestinal -OGT to be removed, Dobhoff to be placed -F/u swallow eval and RD input -Continue w Pepcid IV BID -Gastrotenterology consulted, Dr Hardy Infectious Disease -r/o HCAP versus urine as source -UA shows large Leukocyte esterase, Urine WBC Tntc, negative nitrate -Urine cx growing Proteus -cxr 11/15/18: * no active pulmonary dz, moderate cardiomegaly and pulmonary venous congestion -patient currently on Merrem q8, Vanc discontinued -procal 0.11 -F/u sputum cx -MRSA negative -Blood cx growing gram pos cocci -ID consulted, Dr Fernandes Neurologic -Continue to monitor in setting of encephalopathy -vEEG: severe, non specific diffuse disturbance of cortical activity. This is in keeping with a diffuse hernandez matter dysfunction. No seizures or status presently. -Neurology (Dr. Mcdaniels) consulted for AMS- no need for further antiepileptics. Thiamine 300 mg daily -CT head 11/15/18 * CT head 11/14: no acute intracrainal abnormality, chronic lacunar infarctions in right dennison radiata and basal ganglia, mild chronic microangiopathic changes and mild age related global parenchymal volume loss Pulmonary -Maintain O2 sat >95% -NC PRN -HOB greater than 30 degrees -11/18/18 ABG shows compensated metabolic acidosis -F/U CXR s/p NGT placement -11/17/18 CXR shows OGT and ETT in place -Pulmonology consulted, Dr Burr Renal/ -Maintain euvolemia -UTI, Proteus on culture -Monitor I&O -Replete electrolytes as needed Endocrine -Maintain euglycemia -mISS and accuchecks DVT ppx: Lovenox GI Ppx: Pepcid IV BID Code Status: Full code Dispo: LTAC Facility Patient seen, case reviewed and plan approved by Dr. Sung. Ismael Turner, PGY-1 <Golden Sung - Last Filed: 11/18/18 11:32> CCU Objective - Vital Signs / Intake & Output Vital Signs (Last 4 hours): Vital Signs Pulse BP 11/18/18 08:02 96 H 120/66 11/18/18 08:01 119/69 Intake and Output (Last 8hrs): Intake & Output 11/17/18 11/18/18 11/18/18 22:59 06:59 14:59 Intake Total 180 450 Output Total 175 600 Balance 5 -150 Intake: IV 100 450 IVPB 100 450 Other 80 Output: Urine 175 600 Urethral (Ash) 175 600 Other: # Bowel Movements 1 - Medications Active Medications: Active Medications Generic Name Dose Route Start Last Admin Trade Name Freq PRN Reason Stop Dose Admin Amiodarone HCl 400 mg 11/16/18 17:00 11/18/18 07:58 Cordarone PO Not Given BRKDIN [facility] Aspirin 81 mg 11/15/18 16:45 11/18/18 09:56 Aspirin Chewable PO Not Given DAILY J[facility]ON Atorvastatin Calcium 40 mg 11/16/18 14:50 11/17/18 17:08 Lipitor PO 40 mg DIN JHON Administration Clopidogrel Bisulfate 75 mg 11/17/18 10:00 11/18/18 09:56 Plavix PO Not Given DAILY J[facility]ON Collagenase 0 gm 11/18/18 10:00 11/18/18 09:59 Santyl TOP 1 applic DAILY [facility] Administration Dextrose 0 ml 11/15/18 16:18 Dextrose 50% Inj IV STAT PRN Hypoglycemia Protocol Protocol Enoxaparin Sodium 40 mg 11/18/18 10:00 11/18/18 09:56 Lovenox SC 40 mg DAILY [facility] Administration Protocol Famotidine 20 mg 11/17/18 22:00 11/18/18 09:56 Pepcid IVP 20 mg Q12 JHON Administration Furosemide 40 mg 11/19/18 10:00 Lasix IVP DAILY [facility] Hydralazine HCl 25 mg 11/15/18 10:00 11/18/18 09:56 Apresoline PO Not Given QID JHON Sodium Chloride 1,000 mls @ 100 mls/hr 11/14/18 19:00 11/15/18 06:00 Sodium Chloride 0.9% IV 100 mls/hr .Q10H JHON Administration Vancomycin HCl 1 gm in 250 mls @ 167 mls/hr 11/17/18 09:00 11/18/18 08:01 Vancomycin 1gm IVPB 167 mls/hr Q12H J[facility]ON Administration Protocol Meropenem 1 gm in 50 mls @ 100 mls/hr 11/17/18 14:00 11/18/18 05:55 Merrem Iv 1 Gm Premix IVPB 11/26/18 14:01 100 mls/hr Q8 [facility] Administration Protocol Dobutamine HCl/Dextrose 500 mg in 250 mls @ 6.256 mls/hr 11/18/18 07:37 11/18/18 08:02 Dobutamine/Dextrose 5% 500mg/250ml IV 2.5 mcg/kg/min .Q24H PRN 6.256 mls/hr TITRATE PER PROTOCOL Administration Protocol 2.5 MCG/KG/MIN Insulin Human Regular 0 units 11/16/18 22:00 11/18/18 08:03 Humulin R Med SC Not Given ACHS [facility] Protocol Levalbuterol HCl 1.25 mg 11/17/18 23:43 11/17/18 23:56 Xopenex IH 1.25 mg [id number] PRN Administration Shortness of Breath Lisinopril 2.5 mg 11/18/18 10:00 Zestril PO DAILY [facility] Ondansetron HCl 4 mg 11/15/18 04:15 11/15/18 05:03 Zofran Inj IVP 4 mg Q6H PRN Administration Nausea/Vomiting Thiamine HCl 300 mg 11/16/18 17:00 11/17/18 08:59 Vitamin B1 Tab NG 300 mg DAILY [facility] Administration Vitamin A 1 ea 11/17/18 14:51 11/17/18 15:10 Vitamin A & D Oint Ud Foilpak TOP 1 ea Q4H PRN Administration Dry skin - Patient Studies Lab Studies: Microbiology Studies 11/17/18 08:38 Gram Stain - Final Sputum Induced 11/14/18 18:19 Blood Culture - Preliminary Blood Gram Positive Cocci Gram Stain - Final 11/14/18 18:49 S.aureus & Coag-Neg Staph PNA FISH - Final Blood Blood Culture - Preliminary Gram Positive Cocci Gram Stain - Final 11/14/18 21:21 MRSA Culture (Admit) - Final Naris MRSA NOT DETECTED 11/14/18 19:00 Urine Culture - Final Urine Random Proteus Mirabilis Lab Studies 11/18/18 11/18/18 11/18/18 Range/Units 11:23 07:49 05:30 WBC (4.5-11.0) 10^3/uL RBC (3.5-6.1) 10^6/uL Hgb (14.0-18.0) g/dL Hct (42.0-52.0) % MCV (80.0-105.0) fl MCH (25.0-35.0) pg MCHC (31.0-37.0) g/dl RDW (11.5-14.5) % Plt Count (120.0-450.0) 10^3/uL MPV (7.0-11.0) fl Neut % (Auto) (50.0-68.0) % Lymph % (Auto) (22.0-35.0) % [place] % (Auto) (1.0-6.0) % Eos % (Auto) (1.5-5.0) % Baso % (Auto) (0.0-3.0) % Lymph # (Auto) (1.2-3.4) [place] # (Auto) (0.1-0.6) Eos # (Auto) (0.0-0.7) Baso # (Auto) (0.0-2.0) K/mm3 Absolute Neuts (auto) (1.4-6.5) pCO2 (35-45) mm/Hg pO2 (80-100) mm/Hg HCO3 (21-28) mmol/L ABG pH (7.35-7.45) ABG Total CO2 (22-28) mmol.L ABG O2 Saturation (95-98) % ABG O2 Content (15-23) ML/dl ABG Base Excess (-2.0-3.0) mmol/L ABG Hemoglobin (11.7-17.4) g/dL ABG Carboxyhemoglobin (0.5-1.5) % POC ABG HHb (Measured) (0-5) % ABG Methemoglobin (0.0-3.0) % ABG O2 Capacity (16-24) mL/dl Hgb O2 Saturation (95.0-98.0) % FiO2 % Sodium 146 (132-148) mmol/L Potassium 3.9 (3.6-5.0) mmol/L Chloride 120 H (98-107) mmol/L Carbon Dioxide 18 L (21-33) mmol/L Anion Gap 12 (10-20) BUN 20 (7-21) mg/dL Creatinine 1.1 (0.8-1.5) mg/dl Est GFR ( Amer) > 60 Est GFR (Non-Af Amer) > 60 POC Glucose (mg/dL) 168 H 171 H (65-110) mg/dL Random Glucose 158 H (70-110) mg/dL Calcium 8.0 L (8.4-10.5) mg/dL Phosphorus 3.8 (2.5-4.5) mg/dL Magnesium 2.1 (1.7-2.2) mg/dL Total Bilirubin 0.6 (0.2-1.3) mg/dL AST 40 (17-59) U/L ALT 21 (7-56) U/L Alkaline Phosphatase 79 (38-126) U/L Total Protein 6.7 (5.8-8.3) g/dL Albumin 3.0 (3.0-4.8) g/dL Globulin 3.8 gm/dL Albumin/Globulin Ratio 0.8 L (1.1-1.8) Crossmatch 11/18/18 11/18/18 11/17/18 Range/Units 05:30 05:10 22:00 WBC 11.6 H (4.5-11.0) 10^3/uL RBC 3.73 (3.5-6.1) 10^6/uL Hgb 9.7 L (14.0-18.0) g/dL Hct 32.1 L (42.0-52.0) % MCV 86.1 (80.0-105.0) fl MCH 26.0 (25.0-35.0) pg MCHC 30.2 L (31.0-37.0) g/dl RDW 16.6 H (11.5-14.5) % Plt Count 173 (120.0-450.0) 10^3/uL MPV 10.5 (7.0-11.0) fl Neut % (Auto) 92.4 H (50.0-68.0) % Lymph % (Auto) 4.0 L (22.0-35.0) % [place] % (Auto) 3.0 (1.0-6.0) % Eos % (Auto) 0.3 L (1.5-5.0) % Baso % (Auto) 0.3 (0.0-3.0) % Lymph # (Auto) 0.5 L (1.2-3.4) [place] # (Auto) 0.4 (0.1-0.6) Eos # (Auto) 0.0 (0.0-0.7) Baso # (Auto) 0.03 (0.0-2.0) K/mm3 Absolute Neuts (auto) 10.76 H (1.4-6.5) pCO2 28 L (35-45) mm/Hg pO2 102.0 H (80-100) mm/Hg HCO3 15.1 L (21-28) mmol/L ABG pH 7.34 L (7.35-7.45) ABG Total CO2 16.0 L (22-28) mmol.L ABG O2 Saturation 99.0 H (95-98) % ABG O2 Content 13.3 L (15-23) ML/dl ABG Base Excess -9.5 L (-2.0-3.0) mmol/L ABG Hemoglobin 9.7 L (11.7-17.4) g/dL ABG Carboxyhemoglobin 1.8 H (0.5-1.5) % POC ABG HHb (Measured) 1.0 (0-5) % ABG Methemoglobin 0.6 (0.0-3.0) % ABG O2 Capacity 13.4 L (16-24) mL/dl Hgb O2 Saturation 96.6 (95.0-98.0) % FiO2 28.0 % Sodium (132-148) mmol/L Potassium (3.6-5.0) mmol/L Chloride (98-107) mmol/L Carbon Dioxide (21-33) mmol/L Anion Gap (10-20) BUN (7-21) mg/dL Creatinine (0.8-1.5) mg/dl Est GFR ( Amer) Est GFR (Non-Af Amer) POC Glucose (mg/dL) 163 H (65-110) mg/dL Random Glucose (70-110) mg/dL Calcium (8.4-10.5) mg/dL Phosphorus (2.5-4.5) mg/dL Magnesium (1.7-2.2) mg/dL Total Bilirubin (0.2-1.3) mg/dL AST (17-59) U/L ALT (7-56) U/L Alkaline Phosphatase (38-126) U/L Total Protein (5.8-8.3) g/dL Albumin (3.0-4.8) g/dL Globulin gm/dL Albumin/Globulin Ratio (1.1-1.8) Crossmatch 11/17/18 11/17/18 11/14/18 Range/Units 16:11 11:42 18:19 WBC (4.5-11.0) 10^3/uL RBC (3.5-6.1) 10^6/uL Hgb (14.0-18.0) g/dL Hct (42.0-52.0) % MCV (80.0-105.0) fl MCH (25.0-35.0) pg MCHC (31.0-37.0) g/dl RDW (11.5-14.5) % Plt Count (120.0-450.0) 10^3/uL MPV (7.0-11.0) fl Neut % (Auto) (50.0-68.0) % Lymph % (Auto) (22.0-35.0) % [place] % (Auto) (1.0-6.0) % Eos % (Auto) (1.5-5.0) % Baso % (Auto) (0.0-3.0) % Lymph # (Auto) (1.2-3.4) [place] # (Auto) (0.1-0.6) Eos # (Auto) (0.0-0.7) Baso # (Auto) (0.0-2.0) K/mm3 Absolute Neuts (auto) (1.4-6.5) pCO2 (35-45) mm/Hg pO2 (80-100) mm/Hg HCO3 (21-28) mmol/L ABG pH (7.35-7.45) ABG Total CO2 (22-28) mmol.L ABG O2 Saturation (95-98) % ABG O2 Content (15-23) ML/dl ABG Base Excess (-2.0-3.0) mmol/L ABG Hemoglobin (11.7-17.4) g/dL ABG Carboxyhemoglobin (0.5-1.5) % POC ABG HHb (Measured) (0-5) % ABG Methemoglobin (0.0-3.0) % ABG O2 Capacity (16-24) mL/dl Hgb O2 Saturation (95.0-98.0) % FiO2 % Sodium (132-148) mmol/L Potassium (3.6-5.0) mmol/L Chloride (98-107) mmol/L Carbon Dioxide (21-33) mmol/L Anion Gap (10-20) BUN (7-21) mg/dL Creatinine (0.8-1.5) mg/dl Est GFR ( Amer) Est GFR (Non-Af Amer) POC Glucose (mg/dL) 148 H 144 H (65-110) mg/dL Random Glucose (70-110) mg/dL Calcium (8.4-10.5) mg/dL Phosphorus (2.5-4.5) mg/dL Magnesium (1.7-2.2) mg/dL Total Bilirubin (0.2-1.3) mg/dL AST (17-59) U/L ALT (7-56) U/L Alkaline Phosphatase (38-126) U/L Total Protein (5.8-8.3) g/dL Albumin (3.0-4.8) g/dL Globulin gm/dL Albumin/Globulin Ratio (1.1-1.8) Crossmatch See Detail Laboratory Results - last 24 hr 11/14/18 11/17/18 11/17/18 18:19 11:42 16:11 WBC RBC Hgb Hct MCV MCH MCHC RDW Plt Count MPV Neut % (Auto) Lymph % (Auto) [place] % (Auto) Eos % (Auto) Baso % (Auto) Lymph # (Auto) [place] # (Auto) Eos # (Auto) Baso # (Auto) Absolute Neuts (auto) pCO2 pO2 HCO3 ABG pH ABG Total CO2 ABG O2 Saturation ABG O2 Content ABG Base Excess ABG Hemoglobin ABG Carboxyhemoglobin POC ABG HHb (Measured) ABG Methemoglobin ABG O2 Capacity Hgb O2 Saturation FiO2 Sodium Potassium Chloride Carbon Dioxide Anion Gap BUN Creatinine Est GFR ( Amer) Est GFR (Non-Af Amer) POC Glucose (mg/dL) 144 H 148 H Random Glucose Calcium Phosphorus Magnesium Total Bilirubin AST ALT Alkaline Phosphatase Total Protein Albumin Globulin Albumin/Globulin Ratio Crossmatch See Detail 11/17/18 11/18/18 11/18/18 22:00 05:10 05:30 WBC 11.6 H RBC 3.73 Hgb 9.7 L Hct 32.1 L MCV 86.1 MCH 26.0 MCHC 30.2 L RDW 16.6 H Plt Count 173 MPV 10.5 Neut % (Auto) 92.4 H Lymph % (Auto) 4.0 L [place] % (Auto) 3.0 Eos % (Auto) 0.3 L Baso % (Auto) 0.3 Lymph # (Auto) 0.5 L [place] # (Auto) 0.4 Eos # (Auto) 0.0 Baso # (Auto) 0.03 Absolute Neuts (auto) 10.76 H pCO2 28 L pO2 102.0 H HCO3 15.1 L ABG pH 7.34 L ABG Total CO2 16.0 L ABG O2 Saturation 99.0 H ABG O2 Content 13.3 L ABG Base Excess -9.5 L ABG Hemoglobin 9.7 L ABG Carboxyhemoglobin 1.8 H POC ABG HHb (Measured) 1.0 ABG Methemoglobin 0.6 ABG O2 Capacity 13.4 L Hgb O2 Saturation 96.6 FiO2 28.0 Sodium Potassium Chloride Carbon Dioxide Anion Gap BUN Creatinine Est GFR ( Amer) Est GFR (Non-Af Amer) POC Glucose (mg/dL) 163 H Random Glucose Calcium Phosphorus Magnesium Total Bilirubin AST ALT Alkaline Phosphatase Total Protein Albumin Globulin Albumin/Globulin Ratio Crossmatch 11/18/18 11/18/18 11/18/18 05:30 07:49 11:23 WBC RBC Hgb Hct MCV MCH MCHC RDW Plt Count MPV Neut % (Auto) Lymph % (Auto) [place] % (Auto) Eos % (Auto) Baso % (Auto) Lymph # (Auto) [place] # (Auto) Eos # (Auto) Baso # (Auto) Absolute Neuts (auto) pCO2 pO2 HCO3 ABG pH ABG Total CO2 ABG O2 Saturation ABG O2 Content ABG Base Excess ABG Hemoglobin ABG Carboxyhemoglobin POC ABG HHb (Measured) ABG Methemoglobin ABG O2 Capacity Hgb O2 Saturation FiO2 Sodium 146 Potassium 3.9 Chloride 120 H Carbon Dioxide 18 L Anion Gap 12 BUN 20 Creatinine 1.1 Est GFR ( Amer) > 60 Est GFR (Non-Af Amer) > 60 POC Glucose (mg/dL) 171 H 168 H Random Glucose 158 H Calcium 8.0 L Phosphorus 3.8 Magnesium 2.1 Total Bilirubin 0.6 AST 40 ALT 21 Alkaline Phosphatase 79 Total Protein 6.7 Albumin 3.0 Globulin 3.8 Albumin/Globulin Ratio 0.8 L Crossmatch Radiology Impressions: Radiology Impressions Chest X-Ray 11/18/18 06:00 IMPRESSION: No active disease. EKG/Cardiology Studies: Cardiology / EKG Studies 11/17/18 15:00 ELECTROCARDIOGRAM DAILY Comment: Reason For Exam: chest pain Critical Care Progress Note - Nutrition Nutrition: Nutrition Category Date Time Status NPO Diet [DIET] Diets 11/16/18 Lunch Ordered Assessment/Plan - Assessment and Plan (Free Text) Assessment: I saw and examined the patients on rounds with resident, agree with note with following additions/exceptions: Patient is 63yo male with PMHx of DM, HTN, obesity, smoking hx of 2pk per day, dilated cardiomyopathy EF 14%, moderate pulmonary hypertension, paroxysmal atrial fibrillation, ITP normocytic anemia, with long ICU stay for resp failure 2/2 influenza few months ago, presents from home s/p Vfib cardiac arrest, s/p ROSC, s/p hypothermic protocol. Pt underwent cardiac cath with 3 stents, with IABP, which was removed yesterday Pt extubated to 2LNC yesterday, tolerated well Resp status remains guarded Cardiology following Labs, imaging, chart reviewed Cardiac arrest VFIB Cardiomyopathy Systolic CHF, chronic CKD UTI COPD Hx of Smoking Pulm HTN PAFIB Recommend: - cont with supp o2, as needed, duonebs PRN, IS, goal sat 90%, BIPAP at night - broad spectrum abx as per ID, Merrem, Vanco - follow up cultures - BP control - ASA, Plavix, Statin, Dobutamine, Imdur - Lasox 40mg IV BID - follow up cardio - ECHO repeat - FS control - Speech swallow eval when more alert - GI ppx - DVT ppx, HSQ - Monitor in MICU Patient at high risk for morbidity and mortality FULL CODE Will need LTACH Critical care time 40 minutes
--- NOTE | 2018-11-18 09:51 | RAD ---
Date of service: 11/18/2018 HISTORY: f/u COMPARISON: 11/17/2018 TECHNIQUE: 1 view obtained. FINDINGS: LUNGS: No active pulmonary disease. PLEURA: No significant pleural effusion identified, no pneumothorax apparent. CARDIOVASCULAR: No aortic atherosclerotic calcification present. Normal cardiac size. No pulmonary vascular congestion. OSSEOUS STRUCTURES: No significant abnormalities. VISUALIZED UPPER ABDOMEN: Normal. OTHER FINDINGS: Nasogastric tube in satisfactory position IMPRESSION: No active disease.
--- NOTE | 2018-11-18 09:55 | PN ---
DATE: 11/18/2018 SUBJECTIVE: The patient is mildly tachypneic this morning. PHYSICAL EXAMINATION: VITAL SIGNS: Blood pressure is 116/71, heart rate is 100. NECK: Negative JVD. LUNGS: Crackles at the bases. HEART: S1, S2. EXTREMITIES: Without change. NEUROLOGICAL: The patient is unchanged. He opens his eyes and reacts to pain; however, there is no obvious cognitive function. LABORATORY DATA: Hemoglobin is 9.7. BUN and creatinine unremarkable. The glucose is 158. IMPRESSION: 1. Status post cardiogenic shock. 2. Status post ventricular fibrillation arrest. 3. Status post emergency percutaneous transluminal coronary angioplasty and stent of two vessels. 4. Atrial fibrillation. 5. Diabetes mellitus. 6. End-stage dilated cardiomyopathy. 7. Status post cardiac arrest. 8. Questionable anoxic encephalopathy. PLAN: Given these findings, we will give the patient IV Lasix today, low-dose dobutamine will be started. We will hold off on the beta blockers. Benjamin Saxena MD
[2018-11-18] MEDS: Enoxaparin 40 mg Syringe SC SCH (09:56)
[2018-11-18] MEDS: Collagenase 250 Units/gm Ointment(30 gm) TOP SCH (09:59)
--- NOTE | 2018-11-18 10:13 | PN ---
DATE: 11/18/2018(700am-800am) SUBJECTIVE: The patient is now off of the ventilator. He remains lethargic. He does open his eyes at times. He is moderately short of breath, but in no acute distress. PHYSICAL EXAMINATION: VITAL SIGNS: Temperature is 100, pulse is 95, respiratory rate 24/26, blood pressure 116/71. Oxygen saturation on nasal cannula - 97%. HEENT: Normocephalic, atraumatic. No JVD. CARDIOVASCULAR: Positive S1, S2. No S3 gallop. LUNGS: Decreased breath sounds at the bases. No rhonchi. No wheezing. EXTREMITIES: Mild edema, no cyanosis, no clubbing. GASTROINTESTINAL: Abdomen is soft, nondistended. Bowel sounds are positive. SKIN: No acute rash. NEUROLOGIC: Exam limited at the present time. 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 There remains some mild pulmonary vascular congestion - decreased from yesterday. Arterial blood gas was done on nasal cannula. Results are: PH 7.34, pCO2 of 28, pO2 of 102. IMPRESSION: 1. Ventricular fibrillation arrest. 2. Respiratory failure. 3. Myocardial infarction. 4. Advanced dilated cardiomyopathy. 5. Anemia. 6. Renal insufficiency. PLAN: The patient is now off of the ventilator. He is moderately short of breath, but in no acute distress. He remains lethargic. He does open his eyes at times. I did discuss the case with the nursing staff at length. I did review the x-ray as above. Findings are noted. Official results are pending. I have also reviewed the arterial blood gas. The arterial blood gas represents a compensated metabolic acidosis, with no significant alveolar arterial gradient. I will start the patient on aspiration precautions this morning. Input by Cardiology (Dr. Saxena) is also noted. The patient remains on an intra-aortic balloon pump. The patient also remains on dobutamine. Inputs by Renal, Gastroenterology, and Infectious Disease are also noted. Clinical status of the patient is improved - compared to the initial presentation. However, unfortunately, it appears that the overall status/prognosis for this patient remains very guarded at best/poor. I will discuss the above with the entire ICU team in the next few moments. I will also discuss the above with the attending physician later this morning. Balta Burr MD [facility] # [id number] MOE
--- NOTE | 2018-11-18 10:55 | CP.PCM.PN ---
<Tramaine Ray - Last Filed: 11/18/18 10:49> Subjective - Date & Time of Evaluation Date of Evaluation: 11/18/18 Time of Evaluation: 10:50 - Subjective Subjective: Tramaine Ray Internal Medicine Resident- Progress Note on Behalf of Dr. Hardy Subjective: Patient seen and examined at bedside. No acute overnight events. Further subjective data cannot be ascertained at this time due to patients altered m ental status. 12-point review of systems cannot be ascertained at this time due to altered mental status Physical Examination: - Constitutional Appears: Chronically Ill - Head Exam Head Exam: ATRAUMATIC - ENT Exam ENT Exam: Mucous Membranes Dry - Respiratory Exam Additional comments: CTA anteriorly, symmetric expansion - Cardiovascular Exam Cardiovascular Exam: REGULAR RHYTHM, RRR - GI/Abdominal Exam GI & Abdominal Exam: Normal Bowel Sounds, Soft. absent: Diminished Bowel Sounds, Firm, Organomegaly, Rigid - Extremities Exam Extremities exam: Positive for: normal inspection. Negative for: pedal edema - Neurological Exam Neurological exam: patient spontaneously opens eyes and retracts from painful stimuli - Skin Skin Exam: Normal Color, Warm Assessment and Plan: Patient is a 63-year-old white male with a past medical history of biventricular CHF, atrial fibrillation, diabetes type 2, hypertension, GERD, ITP (on TPO agonist), pseudogout, anxiety, COPD, CKD who was admitted for evaluation and treatment s/p cardiac arrest in the field. GI consulted for anemia/possible GI bleed. - Chronic normocytic anemia:hemoglobin near baseline. . Hemoglobin nearly appropriately responded after 3 units from 7s to 10s. Do not suspect anemia/GI bleed as a cause of cardiac arrest - cardiac arrest: Suspect related to underlying arrhythmia in the setting of CHF with last echo in June 2018 with severe CHF. No AICD in place. - continue to monitor hemoglobin - continue on famotodine 20mg IV q12 - follow up cardiac workup Patient case discussed with and plan approved by attending physician, Dr. Hardy. Objective - Vital Signs/Intake and Output Vital Signs (last 24 hours): Temp Pulse Resp BP Pulse Ox 100.0 F H 96 H 41 H 120/66 97 11/18/18 06:20 11/18/18 08:02 11/18/18 06:20 11/18/18 08:02 11/18/18 06:20 Intake and Output: 11/18/18 11/18/18 06:59 18:59 Intake Total 450 Output Total 600 Balance -150 - Medications Medications: Current Medications Amiodarone HCl (Cordarone) 400 mg PO BRKDIN [facility] Last Admin: 11/18/18 07:58 Dose: Not Given Aspirin (Aspirin Chewable) 81 mg PO DAILY [facility] Last Admin: 11/17/18 08:59 Dose: 81 mg Atorvastatin Calcium (Lipitor) 40 mg PO DIN [facility] Last Admin: 11/17/18 17:08 Dose: 40 mg Clopidogrel Bisulfate (Plavix) 75 mg PO DAILY [facility] Last Admin: 11/17/18 08:59 Dose: 75 mg Collagenase (Santyl) 0 gm TOP DAILY [facility] Last Admin: 11/18/18 09:59 Dose: 1 applic Dextrose (Dextrose 50% Inj) 0 ml IV STAT PRN; Protocol PRN Reason: Hypoglycemia Protocol Enoxaparin Sodium (Lovenox) 40 mg SC DAILY [facility]; Protocol Last Admin: 11/18/18 09:56 Dose: 40 mg Famotidine (Pepcid) 20 mg IVP Q12 [facility] Last Admin: 11/18/18 09:56 Dose: 20 mg Furosemide (Lasix) 40 mg IVP DAILY [facility] Hydralazine HCl (Apresoline) 25 mg PO QID [facility] Last Admin: 11/18/18 05:12 Dose: Not Given Sodium Chloride (Sodium Chloride 0.9%) 1,000 mls @ 100 mls/hr IV .Q10H [facility] Last Admin: 11/15/18 06:00 Dose: 100 mls/hr Vancomycin HCl (Vancomycin 1gm) 1 gm in 250 mls @ 167 mls/hr IVPB Q12H [facility]; Protocol Last Admin: 11/18/18 08:01 Dose: 167 mls/hr Meropenem (Merrem Iv 1 Gm Premix) 1 gm in 50 mls @ 100 mls/hr IVPB Q8 [facility]; Protocol Stop: 11/26/18 14:01 Last Admin: 11/18/18 05:55 Dose: 100 mls/hr Dobutamine HCl/Dextrose (Dobutamine/Dextrose 5% 500mg/250ml) 500 mg in 250 mls @ 6.256 mls/hr IV .Q24H PRN; Protocol PRN Reason: TITRATE PER PROTOCOL Last Admin: 11/18/18 08:02 Dose: 2.5 mcg/kg/min, 6.256 mls/hr Insulin Human Regular (Humulin R Med) 0 units SC ACHS [facility]; Protocol Last Admin: 11/18/18 08:03 Dose: Not Given Levalbuterol HCl (Xopenex) 1.25 mg IH [id number] PRN PRN Reason: Shortness of Breath Last Admin: 11/17/18 23:56 Dose: 1.25 mg Lisinopril (Zestril) 2.5 mg PO DAILY [facility] Ondansetron HCl (Zofran Inj) 4 mg IVP Q6H PRN PRN Reason: Nausea/Vomiting Last Admin: 11/15/18 05:03 Dose: 4 mg Thiamine HCl (Vitamin B1 Tab) 300 mg NG DAILY [facility] Last Admin: 11/17/18 08:59 Dose: 300 mg Vitamin A (Vitamin A & D Oint Ud Foilpak) 1 ea TOP Q4H PRN PRN Reason: Dry skin Last Admin: 11/17/18 15:10 Dose: 1 ea - Labs Labs: 11/18/18 05:30 11/18/18 05:30 PT 14.4 SECONDS (9.4-12.5) H 11/14/18 18:19 INR 1.30 11/14/18 18:19 APTT 45.9 Seconds (26.9-38.3) H 11/17/18 10:20 <Hayley,Kovil V - Last Filed: 11/18/18 20:08> Objective - Vital Signs/Intake and Output Vital Signs (last 24 hours): Temp Pulse Resp BP Pulse Ox 99.7 F H 111 H 39 H 144/82 94 L 11/18/18 15:50 11/18/18 17:31 11/18/18 15:50 11/18/18 17:31 11/18/18 15:50 Intake and Output: 11/18/18 11/19/18 18:59 06:59 Intake Total 768 Output Total 1000 Balance -232 - Medications Medications: Current Medications Amiodarone HCl (Cordarone) 400 mg PO BRKDIN [facility] Last Admin: 11/18/18 17:31 Dose: 400 mg Ascorbic Acid (Vitamin C Liq) 500 mg PO BID [facility] Last Admin: 11/18/18 18:15 Dose: 500 mg Aspirin (Aspirin Chewable) 81 mg PO DAILY [facility] Last Admin: 11/18/18 17:32 Dose: 81 mg Atorvastatin Calcium (Lipitor) 40 mg PO DIN [facility] Last Admin: 11/18/18 17:30 Dose: 40 mg Clopidogrel Bisulfate (Plavix) 75 mg PO DAILY [facility] Last Admin: 11/18/18 17:31 Dose: 75 mg Collagenase (Santyl) 0 gm TOP DAILY [facility] Last Admin: 11/18/18 09:59 Dose: 1 applic Dextrose (Dextrose 50% Inj) 0 ml IV STAT PRN; Protocol PRN Reason: Hypoglycemia Protocol Enoxaparin Sodium (Lovenox) 40 mg SC DAILY [facility]; Protocol Last Admin: 11/18/18 09:56 Dose: 40 mg Famotidine (Pepcid) 20 mg IVP Q12 [facility] Last Admin: 11/18/18 09:56 Dose: 20 mg Furosemide (Lasix) 40 mg IVP DAILY [facility] Hydralazine HCl (Apresoline) 25 mg PO QID [facility] Last Admin: 11/18/18 17:31 Dose: 25 mg Sodium Chloride (Sodium Chloride 0.9%) 1,000 mls @ 100 mls/hr IV .Q10H [facility] Last Admin: 11/15/18 06:00 Dose: 100 mls/hr Vancomycin HCl (Vancomycin 1gm) 1 gm in 250 mls @ 167 mls/hr IVPB Q12H [facility]; Protocol Last Admin: 11/18/18 08:01 Dose: 167 mls/hr Meropenem (Merrem Iv 1 Gm Premix) 1 gm in 50 mls @ 100 mls/hr IVPB Q8 [facility]; Protocol Stop: 11/26/18 14:01 Last Admin: 11/18/18 15:49 Dose: 100 mls/hr Dobutamine HCl/Dextrose (Dobutamine/Dextrose 5% 500mg/250ml) 500 mg in 250 mls @ 6.256 mls/hr IV .Q24H PRN; Protocol PRN Reason: TITRATE PER PROTOCOL Last Admin: 11/18/18 08:02 Dose: 2.5 mcg/kg/min, 6.256 mls/hr Insulin Human Regular (Humulin R Med) 0 units SC ACHS [facility]; Protocol Last Admin: 11/18/18 17:32 Dose: Not Given Levalbuterol HCl (Xopenex) 1.25 mg IH [id number] PRN PRN Reason: Shortness of Breath Last Admin: 11/17/18 23:56 Dose: 1.25 mg Lisinopril (Zestril) 2.5 mg PO DAILY [facility] Last Admin: 11/18/18 10:00 Dose: Not Given Multivitamins/Minerals (Therapeutic-M Tab) 1 tab PO 0800 [facility] Ondansetron HCl (Zofran Inj) 4 mg IVP Q6H PRN PRN Reason: Nausea/Vomiting Last Admin: 11/15/18 05:03 Dose: 4 mg Thiamine HCl (Vitamin B1 Tab) 300 mg NG DAILY J[facility]ON Last Admin: 11/18/18 17:30 Dose: 300 mg Vitamin A (Vitamin A & D Oint Ud Foilpak) 1 ea TOP Q4H PRN PRN Reason: Dry skin Last Admin: 11/17/18 15:10 Dose: 1 ea - Labs Labs: 11/18/18 05:30 11/18/18 05:30 PT 14.4 SECONDS (9.4-12.5) H 11/14/18 18:19 INR 1.30 11/14/18 18:19 APTT 45.9 Seconds (26.9-38.3) H 11/17/18 10:20 Attending/Attestation - Attestation I have personally seen and examined this patient.: Yes I have fully participated in the care of the patient.: Yes I have reviewed all pertinent clinical information, including history, physical exam and plan: Yes Notes (Text): This is an addendum to the GI progress report dictated by the medical office assistant instructor. The patient was seen and evaluated along with the resident earlier today. Discussed with ICU staff. Hemoglobin stable. No obvious melena or bleeding per rectum. However patient had a history of GI bleeding in the past. Presently on Lovenox, aspirin and Plavix. Presently on Pepcid 20 mg every 12 hourly. Recommend close monitoring of hemoglobin hematocrit 11/18/18 20:06
--- NOTE | 2018-11-18 12:12 | PN ---
SUBJECTIVE: The patient was seen and examined at bedside in the CCU. He is s/p extubation and is otherwise clinically stable/unchanged. OBJECTIVE: VITAL SIGNS: T 100, P 96, BP 120/66, RR 40, O2 saturation 97% on 3 liters nasal cannula. GENERAL: Lethargic but arousable, no apparent distress. HEENT: PERRL, EOMI, no scleral icterus, no conjunctival pallor. NECK: No JVD. LUNGS: Clear to auscultation anteriorly. CARDIOVASCULAR: Regular rate and rhythm. Normal S1, S2. ABDOMEN: Normoactive bowel sounds, soft, nontender, nondistended. EXTREMITIES: Trace pedal edema bilaterally. NEUROLOGIC: Lethargic but arousable, not following commands. LABORATORY DATA: WBC 11.6 with 92% neutrophils, hemoglobin 9.7, hematocrit 32, platelets 173. Sodium 146, potassium 3.9, chloride 120, bicarb 18, BUN 20, creatinine 1.1, glucose 158. Blood cultures with gram-positive cocci. Urine culture with Proteus mirabilis. ASSESSMENT: The patient is a 63-year-old man with multiple medical comorbidities who was admitted to the CCU s/p Vfib arrest. PLAN: 1. Vfib arrest. Continue with care as per Dr. Saxena. The patient remains on Amiodarone and remains clinically stable. 2. Cardiogenic shock, improving. The patient has been weaned off vasopressors and remains on inotropic support. 3. CAD s/p PCI with multiple stent placement. Continue Aspirin 81 mg p.o. daily, Plavix 75 mg p.o. daily, Lipitor 40 mg p.o. daily and Lisinopril 2.5 mg p.o. daily. Metoprolol remains on hold as the patient has been started on Dobutamine. 4. Dilated ischemic cardiomyopathy. Continue with care as above. 5. Ventilator dependent respiratory failure, resolved. The patient has been extubated and is doing reasonably well. Continue with care as per Dr. Burr and the CCU team. 6. Altered mental status, etiology likely secondary to toxic metabolic encephalopathy. Input from Dr. Mcdaniels noted. Continue with current care as per CCU team. 7. Acute kidney injury, resolved. 8. Paroxysmal atrial fibrillation. The patient remains rate-controlled. 9. Normocytic anemia. Input from Dr. Hardy noted and there is no evidence of active GI bleed. 10. Type 2 diabetes mellitus. 11. Hypertension. 12. Thrombocytopenia secondary to ITP. 13. Anxiety disorder. 14. Prophylaxis. Continue Protonix for GI prophylaxis and Heparin for DVT prophylaxis. CODE STATUS: Full code. Yassine Martinez MD [id number]
--- NOTE | 2018-11-18 12:36 | RAD ---
Date of service: 11/18/2018 HISTORY: post dobhoff COMPARISON: No prior. TECHNIQUE: 1 view obtained. FINDINGS: LUNGS: The Dobbhoff feeding tube is seen passing into the right mainstem bronchus and terminating in the right lower lobe. The ICU nurse was called at 12:20 p.m. regarding this finding. PLEURA: No significant pleural effusion identified, no pneumothorax apparent. CARDIOVASCULAR: Aortic calcification Moderate cardiomegaly. No pulmonary vascular congestion. OSSEOUS STRUCTURES: No significant abnormalities. VISUALIZED UPPER ABDOMEN: Normal. OTHER FINDINGS: None. IMPRESSION: Abnormal position of the Dobbhoff tube which can be seen passing into the right mainstem bronchus and terminating in the right lower lobe
--- NOTE | 2018-11-18 13:28 | RAD ---
Date of service: 11/18/2018 HISTORY: ngt placement COMPARISON: No prior. TECHNIQUE: 1 view obtained. FINDINGS: LUNGS: No active pulmonary disease. PLEURA: No significant pleural effusion identified, no pneumothorax apparent. CARDIOVASCULAR: No aortic atherosclerotic calcification present. Mild cardiomegaly no pulmonary vascular congestion. OSSEOUS STRUCTURES: No significant abnormalities. VISUALIZED UPPER ABDOMEN: The feeding tube can be seen just beyond the GE junction OTHER FINDINGS: None. IMPRESSION: The feeding tube can be seen just beyond the GE junction
--- NOTE | 2018-11-18 13:46 | CP.PCM.PN ---
<Lino Valladares - Last Filed: 11/18/18 14:26> Subjective - Date & Time of Evaluation Date of Evaluation: 11/18/18 Time of Evaluation: 11:05 - Subjective Subjective: Infectious disease progress note: Patient seen and examined at bedside. Patient was extubated yesterday. Opens his eyes and mumble however doesnt follow commands. Fever tmax of 100.4F. 12 point ROS unobtainable 2/2 intubation Objective - Vital Signs/Intake and Output Vital Signs (last 24 hours): Temp Pulse Resp BP Pulse Ox 100.0 F H 96 H 41 H 120/66 97 11/18/18 06:20 11/18/18 08:02 11/18/18 06:20 11/18/18 08:02 11/18/18 06:20 Intake and Output: 11/18/18 11/18/18 06:59 18:59 Intake Total 450 Output Total 600 Balance -150 - Medications Medications: Current Medications Amiodarone HCl (Cordarone) 400 mg PO BRKDIN [facility] Last Admin: 11/18/18 07:58 Dose: Not Given Aspirin (Aspirin Chewable) 81 mg PO DAILY [facility] Last Admin: 11/18/18 09:56 Dose: Not Given Atorvastatin Calcium (Lipitor) 40 mg PO DIN [facility] Last Admin: 11/17/18 17:08 Dose: 40 mg Clopidogrel Bisulfate (Plavix) 75 mg PO DAILY [facility] Last Admin: 11/18/18 09:56 Dose: Not Given Collagenase (Santyl) 0 gm TOP DAILY [facility] Last Admin: 11/18/18 09:59 Dose: 1 applic Dextrose (Dextrose 50% Inj) 0 ml IV STAT PRN; Protocol PRN Reason: Hypoglycemia Protocol Enoxaparin Sodium (Lovenox) 40 mg SC DAILY [facility]; Protocol Last Admin: 11/18/18 09:56 Dose: 40 mg Famotidine (Pepcid) 20 mg IVP Q12 [facility] Last Admin: 11/18/18 09:56 Dose: 20 mg Furosemide (Lasix) 40 mg IVP DAILY [facility] Hydralazine HCl (Apresoline) 25 mg PO QID [facility] Last Admin: 11/18/18 09:56 Dose: Not Given Sodium Chloride (Sodium Chloride 0.9%) 1,000 mls @ 100 mls/hr IV .Q10H [facility] Last Admin: 11/15/18 06:00 Dose: 100 mls/hr Vancomycin HCl (Vancomycin 1gm) 1 gm in 250 mls @ 167 mls/hr IVPB Q12H [facility]; Protocol Last Admin: 11/18/18 08:01 Dose: 167 mls/hr Meropenem (Merrem Iv 1 Gm Premix) 1 gm in 50 mls @ 100 mls/hr IVPB Q8 [facility]; Protocol Stop: 11/26/18 14:01 Last Admin: 11/18/18 05:55 Dose: 100 mls/hr Dobutamine HCl/Dextrose (Dobutamine/Dextrose 5% 500mg/250ml) 500 mg in 250 mls @ 6.256 mls/hr IV .Q24H PRN; Protocol PRN Reason: TITRATE PER PROTOCOL Last Admin: 11/18/18 08:02 Dose: 2.5 mcg/kg/min, 6.256 mls/hr Insulin Human Regular (Humulin R Med) 0 units SC ACHS [facility]; Protocol Last Admin: 11/18/18 11:54 Dose: Not Given Levalbuterol HCl (Xopenex) 1.25 mg IH [id number] PRN PRN Reason: Shortness of Breath Last Admin: 11/17/18 23:56 Dose: 1.25 mg Lisinopril (Zestril) 2.5 mg PO DAILY [facility] Last Admin: 11/18/18 10:00 Dose: Not Given Ondansetron HCl (Zofran Inj) 4 mg IVP Q6H PRN PRN Reason: Nausea/Vomiting Last Admin: 11/15/18 05:03 Dose: 4 mg Thiamine HCl (Vitamin B1 Tab) 300 mg NG DAILY [facility] Last Admin: 11/18/18 10:00 Dose: Not Given Vitamin A (Vitamin A & D Oint Ud Foilpak) 1 ea TOP Q4H PRN PRN Reason: Dry skin Last Admin: 11/17/18 15:10 Dose: 1 ea - Labs Labs: 11/18/18 05:30 11/18/18 05:30 PT 14.4 SECONDS (9.4-12.5) H 11/14/18 18:19 INR 1.30 11/14/18 18:19 APTT 45.9 Seconds (26.9-38.3) H 11/17/18 10:20 - Constitutional Appears: No Acute Distress - Head Exam Head Exam: ATRAUMATIC, NORMOCEPHALIC - Eye Exam Eye Exam: PERRL - ENT Exam ENT Exam: Mucous Membranes Moist - Respiratory Exam Respiratory Exam: Clear to Ausculation Bilateral. absent: Wheezes - Cardiovascular Exam Cardiovascular Exam: REGULAR RHYTHM, +S1, +S2 - GI/Abdominal Exam GI & Abdominal Exam: Soft. absent: Tenderness - Neurological Exam Neurological Exam: Altered - Skin Skin Exam: Dry, Warm Assessment and Plan - Assessment and Plan (Free Text) Assessment: Respiratory failure - ventilator dependent Status post cardiac arrest likely 2/2 cardiogenic shock vs septic shock Coag neg staph bacteremia Urinary tract infection - Proteus mirabilis COPD Hypertension Diabetes mellitus Peripheral vascular disease Cont Vanc for Coag neg staph bacteremia Awaiting repeat blood cx Cont Antonieta for the UTI - Proteus mirabilis day 2 Follow-up cardiology recommendations, cardiac cath - stents placed in LAD and circ, with triple vessel dx UA is positive, Follow-up urine culture - shows Proteus Procal has been neg Follow-up further ICU recs Continue to monitor for any changes Line: R femoral TLC Case and plan to be reviewed and discussed with Dr. Fernandes. <Satya Fernandes - Last Filed: 11/18/18 14:28> Objective - Vital Signs/Intake and Output Vital Signs (last 24 hours): Temp Pulse Resp BP Pulse Ox 100.0 F H 96 H 41 H 120/66 97 11/18/18 06:20 11/18/18 08:02 11/18/18 06:20 11/18/18 08:02 11/18/18 06:20 Intake and Output: 11/18/18 11/18/18 06:59 18:59 Intake Total 450 Output Total 600 Balance -150 - Medications Medications: Current Medications Amiodarone HCl (Cordarone) 400 mg PO BRKDIN [facility] Last Admin: 11/18/18 07:58 Dose: Not Given Aspirin (Aspirin Chewable) 81 mg PO DAILY [facility] Last Admin: 11/18/18 09:56 Dose: Not Given Atorvastatin Calcium (Lipitor) 40 mg PO DIN [facility] Last Admin: 11/17/18 17:08 Dose: 40 mg Clopidogrel Bisulfate (Plavix) 75 mg PO DAILY [facility] Last Admin: 11/18/18 09:56 Dose: Not Given Collagenase (Santyl) 0 gm TOP DAILY [facility] Last Admin: 11/18/18 09:59 Dose: 1 applic Dextrose (Dextrose 50% Inj) 0 ml IV STAT PRN; Protocol PRN Reason: Hypoglycemia Protocol Enoxaparin Sodium (Lovenox) 40 mg SC DAILY [facility]; Protocol Last Admin: 11/18/18 09:56 Dose: 40 mg Famotidine (Pepcid) 20 mg IVP Q12 [facility] Last Admin: 11/18/18 09:56 Dose: 20 mg Furosemide (Lasix) 40 mg IVP DAILY [facility] Hydralazine HCl (Apresoline) 25 mg PO QID [facility] Last Admin: 11/18/18 09:56 Dose: Not Given Sodium Chloride (Sodium Chloride 0.9%) 1,000 mls @ 100 mls/hr IV .Q10H [facility] Last Admin: 11/15/18 06:00 Dose: 100 mls/hr Vancomycin HCl (Vancomycin 1gm) 1 gm in 250 mls @ 167 mls/hr IVPB Q12H [facility]; Protocol Last Admin: 11/18/18 08:01 Dose: 167 mls/hr Meropenem (Merrem Iv 1 Gm Premix) 1 gm in 50 mls @ 100 mls/hr IVPB Q8 [facility]; Protocol Stop: 11/26/18 14:01 Last Admin: 11/18/18 05:55 Dose: 100 mls/hr Dobutamine HCl/Dextrose (Dobutamine/Dextrose 5% 500mg/250ml) 500 mg in 250 mls @ 6.256 mls/hr IV .Q24H PRN; Protocol PRN Reason: TITRATE PER PROTOCOL Last Admin: 11/18/18 08:02 Dose: 2.5 mcg/kg/min, 6.256 mls/hr Insulin Human Regular (Humulin R Med) 0 units SC ACHS [facility]; Protocol Last Admin: 11/18/18 11:54 Dose: Not Given Levalbuterol HCl (Xopenex) 1.25 mg IH [id number] PRN PRN Reason: Shortness of Breath Last Admin: 11/17/18 23:56 Dose: 1.25 mg Lisinopril (Zestril) 2.5 mg PO DAILY [facility] Last Admin: 11/18/18 10:00 Dose: Not Given Ondansetron HCl (Zofran Inj) 4 mg IVP Q6H PRN PRN Reason: Nausea/Vomiting Last Admin: 11/15/18 05:03 Dose: 4 mg Thiamine HCl (Vitamin B1 Tab) 300 mg NG DAILY [facility] Last Admin: 11/18/18 10:00 Dose: Not Given Vitamin A (Vitamin A & D Oint Ud Foilpak) 1 ea TOP Q4H PRN PRN Reason: Dry skin Last Admin: 11/17/18 15:10 Dose: 1 ea - Labs Labs: 11/18/18 05:30 11/18/18 05:30 PT 14.4 SECONDS (9.4-12.5) H 11/14/18 18:19 INR 1.30 11/14/18 18:19 APTT 45.9 Seconds (26.9-38.3) H 11/17/18 10:20 Attending/Attestation - Attestation I have personally seen and examined this patient.: Yes I have fully participated in the care of the patient.: Yes I have reviewed all pertinent clinical information, including history, physical exam and plan: Yes
[2018-11-18] MEDS: Ascorbic Acid 500 mg/5 ml Liq(50 ml) PO SCH (18:15)
[2018-11-19 05:32] LABS: ARTERIAL BLOOD GAS HCO3 16.9 mmol/L (21-28); ARTERIAL BLOOD GAS HEMOGLOBIN 8.7 g/dL (11.7-17.4); ARTERIAL BLOOD GAS O2 CONTENT 11.9 ML/dl (15-23); ARTERIAL BLOOD GAS PCO2 26 mm/Hg (35-45); ARTERIAL BLOOD GAS PH 7.42 (7.35-7.45); ARTERIAL BLOOD GAS TCO2 17.7 mmol.L (22-28)
[2018-11-19] MEDS ORDERED: Acetaminophen 650mg/20.3ml solution UD PO STA (05:43)
[2018-11-19] MEDS ORDERED: Amiodarone 150 mg/D5W 100 ml 150 MG/100 ML BAG ONE (05:56)
[2018-11-19] MEDS ORDERED: Amiodarone 150mg/3 ml vial ONE (06:09)
[2018-11-19 06:13] LABS: ARTERIAL BLOOD GAS HCO3 16.5 mmol/L (21-28); ARTERIAL BLOOD GAS O2 SAT 99.6 % (95-98); ARTERIAL BLOOD GAS PCO2 26 mm/Hg (35-45); ARTERIAL BLOOD GAS PH 7.41 (7.35-7.45); ARTERIAL BLOOD GAS TCO2 17.3 mmol.L (22-28)
[2018-11-19] MEDS ORDERED: Propofol 10 mg/ml Inj (20 ML) IVP ONE (06:36)
[2018-11-19] MEDS ORDERED: Rocuronium 10 mg/ml (5 ml) IVP ONE (06:36)
[2018-11-19] MEDS ORDERED: Propofol 10 mg/ml Inj (20 ML) ONE (06:37)
[2018-11-19] MEDS ORDERED: Etomidate 20 mg/10ml Inj IV ONE (06:37)
[2018-11-19] MEDS ORDERED: Rocuronium 10 mg/ml (5 ml) ONE (06:40)
--- NOTE | 2018-11-19 06:56 | PCM.PROC ---
<Ryan Livingston - Last Filed: 11/19/18 06:54> Procedures Attestation:: I certify that I have explained the specified Operation(s) or Procedure(s), risks, benefits and reasonable alternatives to the Patient and/or other person responsible. The opportunity was given to ask questions and all questions answered - Intubation Time Out Performed: No Sedative: Other (rocrionium and propofol) Paralytic: Rocuronimum Laryngoscope: Glidescope ET Tube Size: 8.0 ET Tube Secured Locarion: Lips ET Tube Placement Confirmation: Visualized Passing Through Cords, Breath Sounds Equal Bilaterally, Confirmation w/Capnometry Patient Tolerated Procedure: Well Procedure Immediate Complications: None Additional comments: performed w/ Dr Rao <Ros Rao - Last Filed: 11/19/18 19:15> Attending/Attestation - Attestation I have personally seen and examined this patient.: Yes I have fully participated in the care of the patient.: Yes I have reviewed all pertinent clinical information, including history, physical exam and plan: Yes
--- NOTE | 2018-11-19 06:59 | PCM.RRT ---
<Ryan Livingston Anuel - Last Filed: 11/19/18 07:02> [employer] Nurse Assessment - Situation Date: 11/15/18 Time [employer] was called: 05:51 [employer] Responder Arrival Time: 05:52 [employer] Location:: Critical Care Unit [employer] Reason for Call: Tachycardia [employer] Called By: RN - Respiratory Oxygen Delivery Method: Intubated - Ventilator Settings Mode: PRVC - Diagnostic Test Ordered EKG: No Chest X-Ray: No CT Scan: No - Stat Labs Ordered [employer] Stat Labs Ordered: ABG CPR started during AIRCRAFT SE[employer]PHOL[employer]ER?: No - [place] Coma Scale Coma Scale Eye Opening: Spontaneous Coma Scale Motor: Movement to pain stimulus Coma Scale Verbal: Incomprehensible speech - Time [employer] Ended Time [employer] Ended: 06:50 - Recommendations 5) [employer] Level of Care Recommendations: Remain in current setting Notifications: Consultations, Family or Designated Caregiver I.Reason for [employer] - A) Acute Change in Patient: (Select all that apply): Acute change in heart rate less than 50 or greater than 120 - Neurological Status (Select all that apply): Confused, Lethargic, Weakness - Respiratory Oxygen Delivery Method: Intubated - Constitutional Appears: In Acute Distress, Confused, Cachectic, Chronically Ill - Head Head Exam: ATRAUMATIC, NORMOCEPHALIC - Eyes Eye Exam: EOMI, Normal appearance, PERRL - Respiratory Exam Respiratory Exam: Rales - Cardiovascular Exam Cardiovascular Exam: Tachycardia, Irregular Rhythm, +S1, +S2 - GI/Abdominal Exam GI & Abdominal Exam: Soft, Normal Bowel Sounds. absent: Distended, Tenderness - Neurological Exam Neurological Exam: Altered Plan - Assessment of Findings&Treatment Plan Mr Damon was by RN to be in heart rate in 140s-150s and rhythm was found to be in VTach. Nehal august was inadvertently called even though he had a pulse. Blood pressure and oxygen saturation remained normal throughout the encounter. Patient was given amiodarone 300mg IVP which did not break his VTach rhythm. Patient was shocked which did not break rhythm at 200J. Another amio 150mg IVP was given which did not break rhythm. He was again shocked at 360J. He converted to normal sinus with normal rate for about 5 minutes before reverting back to VTach. He was again shocked. An amio drip was hung (18 hour protocol). He was shocked again about 3-5 minutes later. An ABG showed pH of 7.41 with a potassium of 3.3. He was given lidocaine 100mg IVP which broke his VTach and converted him to sinus rhythm. Pulmonary Dr Burr was present and advised the patient be intubated. Patient was intubated and put on prvc. Dr Saxena's service was called. Patient's An was called and she requested patient remain full code until she discusses with Dr Saxena. <Ros Rao - Last Filed: 11/19/18 19:16> Attending/Attestation - Attestation I have personally seen and examined this patient.: Yes I have fully participated in the care of the patient.: Yes I have reviewed all pertinent clinical information, including history, physical exam and plan: Yes Notes (Text): 11/19/18 19:16 Start 0550 End 0650 Critical time: 60 minutes
[2018-11-19] MEDS: Propofol 10 mg/ml 1,000 MG/100 ML VIAL IV PRN ×2 (07:00→10:24)
[2018-11-19] MEDS: Meropenem IV 1 gm in NS 1 GM/50 ML BAG IVPB SCH ×3 (07:59→21:08)
[2018-11-19] MEDS: Amiodarone 360 mg/D5W 200 ml 360 MG/200 ML BAG IV SCH ×2 (08:00→16:30)
--- NOTE | 2018-11-19 08:01 | CP.PCM.PN ---
<Tramaine Ray - Last Filed: 11/19/18 13:10> Subjective - Date & Time of Evaluation Date of Evaluation: 11/19/18 Time of Evaluation: 07:53 - Subjective Subjective: Tramaine Ray Internal Medicine Resident- Progress Note on Behalf of Dr. Hardy Subjective: Patient seen and examined at bedside. Patient experienced sustained ventricular tachycardia overnight. Patient was given multiple bolues of amiodarone and multiple cardioversion attempts were made. Sustained NSR was achieved with lidocaine. Further ther subjective data cannot be ascertained at this time due to patients altered mental status. 12-point review of systems cannot be ascertained at this time due to altered mental status Physical Examination: - Constitutional Appears: Chronically Ill - Head Exam Head Exam: ATRAUMATIC - ENT Exam ENT Exam: Mucous Membranes Dry, +ETT - Respiratory Exam Additional comments: CTA anteriorly, symmetric expansion - Cardiovascular Exam Cardiovascular Exam tachycardic, +s1, +s2 - GI/Abdominal Exam GI & Abdominal Exam: Normal Bowel Sounds, Soft. absent: Diminished Bowel Sounds, Firm, Organomegaly, Rigid - Extremities Exam Extremities exam: Positive for: normal inspection. Negative for: pedal edema - Neurological Exam Neurological exam: altered - Skin Skin Exam: Normal Color, Warm Assessment and Plan: Patient is a 63-year-old white male with a past medical history of biventricular CHF, atrial fibrillation, diabetes type 2, hypertension, GERD, ITP (on TPO agonist), pseudogout, anxiety, COPD, CKD who was admitted for evaluation and treatment s/p cardiac arrest in the field. GI consulted for anemia/possible GI bleed. - Chronic normocytic anemia:hemoglobin near baseline. . Hemoglobin nearly appropriately responded after 3 units from 7s to 10s. Do not suspect anemia/GI bleed as a cause of cardiac arrest - cardiac arrest: Suspect related to underlying arrhythmia in the setting of CHF with last echo in June 2018 with severe CHF. No AICD in place. - continue to monitor hemoglobin - discontinue on famotodine 20mg IV q12 - started on protonix 40mg IV q12 - follow up cardiac workup Patient case discussed with and plan approved by attending physician, Dr. Hardy. Objective - Vital Signs/Intake and Output Vital Signs (last 24 hours): Temp Pulse Resp BP Pulse Ox 99.7 F H 102 H 22 149/76 100 11/18/18 15:50 11/19/18 00:00 11/19/18 07:44 11/18/18 21:54 11/19/18 07:44 - Medications Medications: Current Medications Amiodarone HCl (Cordarone) 400 mg PO BRKDIN [facility] Last Admin: 11/18/18 17:31 Dose: 400 mg Ascorbic Acid (Vitamin C Liq) 500 mg PO BID [facility] Last Admin: 11/18/18 18:15 Dose: 500 mg Aspirin (Aspirin Chewable) 81 mg PO DAILY [facility] Last Admin: 11/18/18 17:32 Dose: 81 mg Atorvastatin Calcium (Lipitor) 40 mg PO DIN [facility] Last Admin: 11/18/18 17:30 Dose: 40 mg Clopidogrel Bisulfate (Plavix) 75 mg PO DAILY [facility] Last Admin: 11/18/18 17:31 Dose: 75 mg Collagenase (Santyl) 0 gm TOP DAILY [facility] Last Admin: 11/18/18 09:59 Dose: 1 applic Dextrose (Dextrose 50% Inj) 0 ml IV STAT PRN; Protocol PRN Reason: Hypoglycemia Protocol Enoxaparin Sodium (Lovenox) 40 mg SC DAILY [facility]; Protocol Last Admin: 11/18/18 09:56 Dose: 40 mg Famotidine (Pepcid) 20 mg IVP Q12 [facility] Last Admin: 11/18/18 21:53 Dose: 20 mg Furosemide (Lasix) 40 mg IVP DAILY [facility] Hydralazine HCl (Apresoline) 25 mg PO QID [facility] Last Admin: 11/18/18 21:54 Dose: 25 mg Sodium Chloride (Sodium Chloride 0.9%) 1,000 mls @ 100 mls/hr IV .Q10H [facility] Last Admin: 11/15/18 06:00 Dose: 100 mls/hr Vancomycin HCl (Vancomycin 1gm) 1 gm in 250 mls @ 167 mls/hr IVPB Q12H [facility]; Protocol Last Admin: 11/18/18 21:52 Dose: 167 mls/hr Meropenem (Merrem Iv 1 Gm Premix) 1 gm in 50 mls @ 100 mls/hr IVPB Q8 [facility]; Protocol Stop: 11/26/18 14:01 Last Admin: 11/18/18 21:53 Dose: 100 mls/hr Dobutamine HCl/Dextrose (Dobutamine/Dextrose 5% 500mg/250ml) 500 mg in 250 mls @ 6.256 mls/hr IV .Q24H [facility]; Protocol PRN Reason: TITRATE PER PROTOCOL Last Admin: 11/18/18 08:02 Dose: 2.5 mcg/kg/min, 6.256 mls/hr Propofol (Diprivan) 1,000 mg in 100 mls @ 2.502 mls/hr IV .Q24H PRN; Protocol PRN Reason: TITRATE PER MD ORDER Acetaminophen (Ofirmev) 1,000 mg in 100 mls @ 400 mls/hr IVPB Q8H PRN PRN Reason: Fever Stop: 11/21/18 07:13 Amiodarone HCl/Dextrose (Nexterone 360 Mg In D5w 200 Ml (Premix)) 360 mg in 200 mls @ 33.333 mls/hr IV .Q6H [facility]; Protocol Insulin Human Regular (Humulin R Med) 0 units SC ACHS [facility]; Protocol Last Admin: 11/18/18 21:54 Dose: Not Given Levalbuterol HCl (Xopenex) 1.25 mg IH [id number] PRN PRN Reason: Shortness of Breath Last Admin: 11/17/18 23:56 Dose: 1.25 mg Lisinopril (Zestril) 2.5 mg PO DAILY [facility] Last Admin: 11/18/18 10:00 Dose: Not Given Multivitamins/Minerals (Therapeutic-M Tab) 1 tab PO 0800 [facility] Ondansetron HCl (Zofran Inj) 4 mg IVP Q6H PRN PRN Reason: Nausea/Vomiting Last Admin: 11/15/18 05:03 Dose: 4 mg Thiamine HCl (Vitamin B1 Tab) 300 mg NG DAILY [facility] Last Admin: 11/18/18 17:30 Dose: 300 mg Vitamin A (Vitamin A & D Oint Ud Foilpak) 1 ea TOP Q4H PRN PRN Reason: Dry skin Last Admin: 11/17/18 15:10 Dose: 1 ea - Labs Labs: 11/18/18 05:30 11/18/18 05:30 PT 14.4 SECONDS (9.4-12.5) H 11/14/18 18:19 INR 1.30 11/14/18 18:19 APTT 45.9 Seconds (26.9-38.3) H 11/17/18 10:20 <Cee Hardyl V - Last Filed: 11/19/18 21:42> Objective - Vital Signs/Intake and Output Vital Signs (last 24 hours): Temp Pulse Resp BP Pulse Ox 98.4 F 85 24 124/81 98 11/19/18 18:00 11/19/18 18:00 11/19/18 11:01 11/19/18 18:00 11/19/18 18:00 Intake and Output: 11/19/18 11/20/18 18:59 06:59 Intake Total 600 Output Total 1650 Balance -1050 - Medications Medications: Current Medications Amiodarone HCl (Cordarone) 400 mg PO BRKDIN [facility] Last Admin: 11/19/18 09:05 Dose: Not Given Ascorbic Acid (Vitamin C Liq) 500 mg PO BID [facility] Last Admin: 11/19/18 17:58 Dose: 500 mg Aspirin (Aspirin Chewable) 81 mg PO DAILY [facility] Last Admin: 11/19/18 09:22 Dose: 81 mg Atorvastatin Calcium (Lipitor) 40 mg PO DIN [facility] Last Admin: 11/19/18 16:36 Dose: 40 mg Clopidogrel Bisulfate (Plavix) 75 mg PO DAILY [facility] Last Admin: 11/19/18 09:22 Dose: 75 mg Collagenase (Santyl) 0 gm TOP DAILY [facility] Last Admin: 11/19/18 09:49 Dose: 1 applic Dextrose (Dextrose 50% Inj) 0 ml IV STAT PRN; Protocol PRN Reason: Hypoglycemia Protocol Enoxaparin Sodium (Lovenox) 40 mg SC DAILY [facility]; Protocol Last Admin: 11/19/18 09:21 Dose: 40 mg Furosemide (Lasix) 40 mg IVP DAILY [facility] Last Admin: 11/19/18 09:26 Dose: Not Given Hydralazine HCl (Apresoline) 25 mg PO QID [facility] Last Admin: 11/18/18 21:54 Dose: 25 mg Sodium Chloride (Sodium Chloride 0.9%) 1,000 mls @ 100 mls/hr IV .Q10H [facility] Last Admin: 11/15/18 06:00 Dose: 100 mls/hr Vancomycin HCl (Vancomycin 1gm) 1 gm in 250 mls @ 167 mls/hr IVPB Q12H [facility]; Protocol Last Admin: 11/19/18 09:11 Dose: Not Given Meropenem (Merrem Iv 1 Gm Premix) 1 gm in 50 mls @ 100 mls/hr IVPB Q8 [facility]; Protocol Stop: 11/26/18 14:01 Last Admin: 11/19/18 21:08 Dose: 100 mls/hr Propofol (Diprivan) 1,000 mg in 100 mls @ 2.502 mls/hr IV .Q24H PRN; Protocol PRN Reason: TITRATE PER MD ORDER Last Titration: 11/19/18 16:32 Dose: Infused Acetaminophen (Ofirmev) 1,000 mg in 100 mls @ 400 mls/hr IVPB Q8H PRN PRN Reason: Fever Stop: 11/21/18 07:13 Last Admin: 11/19/18 06:50 Dose: 400 mls/hr Amiodarone HCl/Dextrose (Nexterone 360 Mg In D5w 200 Ml (Premix)) 360 mg in 200 mls @ 33.333 mls/hr IV .Q6H [facility]; Protocol Last Admin: 11/19/18 16:30 Dose: Not Given Insulin Human Regular (Humulin R Med) 0 units SC ACHS [facility]; Protocol Last Admin: 11/19/18 16:33 Dose: Not Given Levalbuterol HCl (Xopenex) 1.25 mg IH [id number] PRN PRN Reason: Shortness of Breath Last Admin: 11/17/18 23:56 Dose: 1.25 mg Lisinopril (Zestril) 2.5 mg PO DAILY [facility] Last Admin: 11/19/18 10:27 Dose: 2.5 mg Multivitamins/Minerals (Therapeutic-M Tab) 1 tab PO 0800 [facility] Last Admin: 11/19/18 09:22 Dose: 1 tab Ondansetron HCl (Zofran Inj) 4 mg IVP Q6H PRN PRN Reason: Nausea/Vomiting Last Admin: 11/15/18 05:03 Dose: 4 mg Pantoprazole Sodium (Protonix Inj) 40 mg IVP Q12 [facility] Last Admin: 11/19/18 21:09 Dose: 40 mg Thiamine HCl (Vitamin B1 Tab) 300 mg NG DAILY [facility] Last Admin: 11/19/18 09:22 Dose: 300 mg Vitamin A (Vitamin A & D Oint Ud Foilpak) 1 ea TOP Q4H PRN PRN Reason: Dry skin Last Admin: 11/17/18 15:10 Dose: 1 ea - Labs Labs: 11/19/18 19:16 11/19/18 08:00 PT 14.4 SECONDS (9.4-12.5) H 11/14/18 18:19 INR 1.30 11/14/18 18:19 APTT 45.9 Seconds (26.9-38.3) H 11/17/18 10:20 Attending/Attestation - Attestation I have personally seen and examined this patient.: Yes I have fully participated in the care of the patient.: Yes I have reviewed all pertinent clinical information, including history, physical exam and plan: Yes Notes (Text): This patient was seen and evaluated along with the medical records analyst earlier today. Discussed with ICU team. This is an addendum to the progress note dictated by the resident. Follow-up of the hemoglobin hematocrit and transfuse. Continue H2 B. Recurrent cardiac arrest due to V. fib. Not a candidate for endoscopy evaluation now. Continue the supportive management. 11/19/18 21:41
[2018-11-19 08:08] LABS: ARTERIAL BLOOD GAS HCO3 16.9 mmol/L (21-28); ARTERIAL BLOOD GAS HEMOGLOBIN 9.7 g/dL (11.7-17.4); ARTERIAL BLOOD GAS O2 CAPACITY 14.6 mL/dl (16-24); ARTERIAL BLOOD GAS O2 CONTENT 14.5 ML/dl (15-23); ARTERIAL BLOOD GAS O2 SAT 99.6 % (95-98); ARTERIAL BLOOD GAS PCO2 30 mm/Hg (35-45); ARTERIAL BLOOD GAS PH 7.36 (7.35-7.45); ARTERIAL BLOOD GAS TCO2 17.8 mmol.L (22-28)
[2018-11-19 08:20] LABS: BASO # 0.03 K/mm3 (0.0-2.0); BASO % 0.4 % (0.0-3.0); EOS % 0.5 % (1.5-5.0); HEMOGLOBIN 8.4 g/dL (14.0-18.0); LYMPH # 0.3 (1.2-3.4); LYMPH % 3.4 % (22.0-35.0); MEAN CORPUSCULAR HEMOGLOBIN 26.2 pg (25.0-35.0); MEAN CORPUSCULAR HGB CONC 30.8 g/dl (31.0-37.0); MONO # 0.1 (0.1-0.6); MONO % 1.4 % (1.0-6.0); PLATELET COUNT 124 10^3/uL (120.0-450.0); RBC 3.21 10^6/uL (3.5-6.1); RED CELL DISTRIBUTION WIDTH 16.4 % (11.5-14.5); WHITE BLOOD COUNT 7.7 10^3/uL (4.5-11.0)
[2018-11-19 08:37] LABS: ALB/GLOB RATIO 0.8 (1.1-1.8); ALBUMIN 2.7 g/dL (3.0-4.8); ALT/SGPT 15 U/L (7-56); AST/SGOT 26 U/L (17-59); BLOOD UREA NITROGEN 22 mg/dL (7-21); CALCIUM 8.1 mg/dL (8.4-10.5); GFR NON-AFRICAN AMERICAN > 60
--- NOTE | 2018-11-19 08:41 | PN ---
DATE: 11/18/2018 SUBJECTIVE: The patient is seen lying in bed in the ICU. He was extubated earlier today. He is awake. His eyes are open. But he is not responding. He is not following commands. He underwent cardiac catheterization and placement of multiple stents. He is status post cardiogenic shock, status post ventricular fibrillation arrest. PHYSICAL EXAMINATION GENERAL: Elderly male lying in bed in the ICU. VITAL SIGNS: Blood pressure 133/76, heart rate 106, respiratory rate 24-38, and temperature 99.5. HEENT: Normocephalic and atraumatic. Pupils reactive to light, sluggish. NECK: Supple, no JVD. LUNGS: Bilateral equal air entry, bilateral rhonchi, poor air entry at bases, no rales appreciated. CARDIAC: S1 and S2, regular rate and rhythm, no murmur, no rub. ABDOMEN: Distended, soft, nontender and bowel sounds present. EXTREMITIES: Chronic stasis changes, trace lower extremity edema. INTAKE AND OUTPUT: 1578/1415. LABORATORY DATA: WBC 11.6, hemoglobin 9.7, hematocrit 32 and platelets 173. Sodium 146, potassium 3.9, chloride 120, CO2 of 18, BUN 20, creatinine 1.1, glucose 158, calcium 8.0, phosphorus 3.8, magnesium 2.1, AST 40, ALT 21 and albumin 3.0. ABG early this morning, pH 7.34, pCO2 of 28 and pO2 of 102. Blood cultures from 11/17/2018 negative. Chest x-ray, no active pulmonary disease. MEDICATIONS: Apresoline 25 q.i.d., aspirin 81, Cordarone 400, dobutamine at 2.5 mcg/kilogram/minute, Lasix 40 IV daily to be started tomorrow, Lipitor 40, Lovenox 40, Merrem 1 g every 8 hours, Pepcid, Plavix 75, vancomycin 1 g every 12 hours, thiamine, Zestril 2.5, Zofran and Lasix 40 mg IV push given this morning. ASSESSMENT: 1. Status post cardiogenic shock, status post ventricular fibrillation arrest. 2. Coronary artery disease, percutaneous transluminal coronary angioplasty and stent to left anterior descending, unsuccessful stenting of circumflex. 3. History of chronic kidney disease stage III, stable renal parameters at this time. 4. Noninsulin dependent diabetes mellitus. 5. Sepsis, urinary tract infection. 6. Paroxysmal atrial fibrillation. 7. Pulmonary hypertension. 8. History of anemia of chronic kidney disease. 9. History of critical illness polyneuropathy after severe sepsis, respiratory failure, pneumonia, acute kidney injury in June 2018. PLAN: 1. Continue present level of care. 2. Agree with inotropic support. 3. Agree with Lasix. 4. Continue current antihypertensives. 5. Continue antibiotics for UTI. 6. Dose all medications for creatinine clearance about 40 mL/minute. 7. Avoid nephrotoxins. 8. Monitor sugars to maintain euglycemia. 9. Remains critically ill, prognosis is guarded. 10. Case discussed with ICU nursing staff, ICU residents and at bedside. More than 35 minutes was spent on this critical ill patient. Bobbi Sullivan MD
--- NOTE | 2018-11-19 08:49 | RAD ---
Date of service: 11/19/2018 HISTORY: f/u COMPARISON: 11/18/2018 at 1306 hr TECHNIQUE: 1 view obtained. FINDINGS: LUNGS: Lung volumes shallow left and to lesser extent right perihilar bronchovascular markings are coarse-part crowding-concomitant pulmonary venous congestion possible. No interval change perceived. PLEURA: No significant pleural effusion identified, no pneumothorax apparent. CARDIOVASCULAR: There is presence of aortic atherosclerotic calcification on x-ray. Cardiomegaly mild concomitant pulmonary venous congestion suspect OSSEOUS STRUCTURES: No significant abnormalities. VISUALIZED UPPER ABDOMEN: Feeding tube inserted tip in stomach-similar OTHER FINDINGS: Possible portion of an banded right PICC line tip near low right axilla IMPRESSION: Cardiomegaly with probable mild pulmonary venous congestion. Shallow lung volumes accentuate bronchovascular markings crowding prominence. Other findings as above.
--- NOTE | 2018-11-19 08:50 | RAD ---
Date of service: 11/19/2018 HISTORY: post intubation COMPARISON: 11/19/2018 TECHNIQUE: 1 view obtained. FINDINGS: LUNGS: Asymmetrical elevation the right hemidiaphragm. No consolidation. Interval endotracheal tube insertion tip clavicle PLEURA: No significant pleural effusion identified, no pneumothorax apparent. CARDIOVASCULAR: There is presence of aortic atherosclerotic calcification on x-ray. Cardiomegaly-similar interval decreased pulmonary venous congestion. Improved lung volumes. OSSEOUS STRUCTURES: Thoraco lumbar spondylosis. VISUALIZED UPPER ABDOMEN: Feeding tube inserted tip in stomach just distal to GE junction-similar. OTHER FINDINGS: None. IMPRESSION: Interval endotracheal tube insertion position appears satisfactory. Interval decreased pulmonary venous congestion. Other findings as above.
--- NOTE | 2018-11-19 09:09 | PN ---
DATE: 11/19/2018(600am-655am) PULMONARY NOTE SUBJECTIVE: The patient appears worse this morning. He is extremely lethargic and more short of breath. PHYSICAL EXAMINATION: VITAL SIGNS: Last temperature recorded 99.7, pulse at the present time 142, respiratory rate 40, blood pressure 149/76. HEENT: Normocephalic, atraumatic. NECK: No JVD. CARDIOVASCULAR: Positive S1, S2. No S3 gallop. LUNGS: Decreased breath sounds at the bases. Minimal rhonchi bilaterally. No wheezing. EXTREMITIES: Mild edema, no cyanosis, no clubbing. GASTROINTESTINAL: Abdomen is soft, nondistended. Bowel sounds are positive. SKIN: No acute rash. NEUROLOGIC: Limited at the present time. 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 There appears to be an increase in the pulmonary vascular congestion - compared to yesterday's film. Official results are pending. Arterial blood gas was done on a 100% non-rebreather. Results are; PH 7.41, pCO2 26, pO2 of 120. IMPRESSION: 1. Ventricular fibrillation arrest. 2. Respiratory failure. 3. Myocardial infarction. 4. Advanced dilated cardiomyopathy. 5. Anemia. 6. Renal insufficiency. PLAN: The patient appears much worse this morning. He is much more lethargic and more short of breath. He is breathing at approximately 40 times per minute. I did discuss the case with the night nurse at length. The night nurse stated the patient had several episodes of ventricular tachycardia during the past hour. I did review the x-ray as above. Findings are noted. The chest x-ray does look somewhat worse this morning. I have also reviewed the arterial blood gas. The arterial blood gas remains with a compensated metabolic acidosis. However, the alveolar arterial gradient has significantly increased - compared to yesterday morning. Given the patient's critical condition, I did have a long discussion with the ICU team and medical residents. At this point in time, we will proceed with intubation to protect the airway. Airway protection and adequate ventilation may also help the cardiac arrhythmias. A call was placed to Dr. Saxena (Cardiology). On physical exam, there is mild bronchospasm noted. However, given the recurrent ventricular tachycardia, I will hold off on beta agonists at the present time. The patient remains on antibiotic therapy - as per Infectious Disease. Input by Dr. Fernandes, is noted. Inputs by Cardiology and renal are also noted. Additional repeat a.m. labs are pending. The patient remains critically ill with very guarded/poor prognosis. I will discuss the above with the entire ICU team in the next few moments. I will also discuss the above with the attending physician later this morning. Balta Burr MD MTDD
[2018-11-19] MEDS: Insulin Reg-MEDIUM-Coverage SC SCH ×3 (09:10→22:00)
[2018-11-19] MEDS: Vancomycin 1gm in NS 250ml 1 GM/250 ML BAG IVPB SCH (09:11)
[2018-11-19] MEDS: Enoxaparin 40 mg Syringe SC SCH (09:21)
[2018-11-19] MEDS: Multivitamin With Minerals Tab PO SCH (09:22)
[2018-11-19 09:34] LABS: LYMPHOCYTE 1 % (22.0-35.0); MONOCYTE 2 % (1.0-6.0); MYELOCYTE 1 %; NEUTROPHIL 96 % (50.0-70.0); PLATELET ESTIMATE NORMAL (NORMAL)
[2018-11-19] MEDS: Collagenase 250 Units/gm Ointment(30 gm) TOP SCH (09:49)
[2018-11-19] MEDS: Ascorbic Acid 500 mg/5 ml Liq(50 ml) PO SCH ×2 (09:49→17:58)
[2018-11-19] MEDS ORDERED: Potassium Chloride 40 mEq/30 ml LIQ UD PO STA (10:37)
--- NOTE | 2018-11-19 10:49 | CP.CCUPN ---
<Ismael Turner - Last Filed: 11/19/18 10:46> CCU Subjective - Physician Review Subjective (Free Text): Ismael Turner PGY-1 Critical Care Progress Note Patient seen and evaluated at bedside. Patient s/p sustained v-tach, sedation and intubation at bedside overnight. Currently on propofol drip. Events discussed with family. Further ROS unable to be obtained due to clinical condition. CCU Objective - Vital Signs / Intake & Output Vital Signs (Last 4 hours): Vital Signs Pulse Resp BP Pulse Ox 11/19/18 10:27 70 108/47 L 11/19/18 07:58 118/86 11/19/18 07:44 22 100 Intake and Output (Last 8hrs): Intake & Output 11/18/18 11/19/18 11/19/18 22:59 06:59 14:59 Intake Total 768 100 Output Total 1000 Balance -232 100 Intake: IV 768 100 IVPB 350 Right Femoral 418 Output: Urine 1000 Urethral (Ash) 1000 - Physical Exam Head: Positive for: Atraumatic, Normocephalic Pupils: Positive for: PERRL, Other (2mm, reactive) Conjunctiva: Positive for: Normal Mouth: Positive for: Moist Mucous Membranes, Other (Dobhoff in place in R nares) Pharnyx: Positive for: Other (ETT in place) Neck: Positive for: Trachea Midline. Negative for: JVD, Lymphadenopathy Respiratory/Chest: Positive for: Clear to Auscultation, Good Air Exchange. Negative for: Respiratory Distress, Accessory Muscle Use Cardiovascular: Positive for: Normal S1, S2. Negative for: Murmurs Abdomen: Positive for: Normal Bowel Sounds. Negative for: Tenderness Genitourinary Male: Positive for: Other (R femoral TLC removed) Back: Positive for: Normal Inspection Upper Extremity: Positive for: Normal Inspection, Other (Midline in place). Negative for: Cyanosis, Edema Lower Extremity: Positive for: Normal Inspection. Negative for: Edema Neurological: Positive for: Other (corneal and gag reflex present, withdraws to painful stimuli, sedated) Skin: Positive for: Warm, Dry, Pale. Negative for: Rashes Psychiatric: Negative for: Alert - Medications Active Medications: Active Medications Generic Name Dose Route Start Last Admin Trade Name Freq PRN Reason Stop Dose Admin Amiodarone HCl 400 mg 11/16/18 17:00 05/16/19 09:05 Cordarone PO Not Given BRKDIN JHON Ascorbic Acid 500 mg 11/18/18 18:00 11/19/18 09:49 Vitamin C Liq PO 500 mg BID JHON Administration Aspirin 81 mg 11/15/18 16:45 11/19/18 09:22 Aspirin Chewable PO 81 mg DAILY JHON Administration Atorvastatin Calcium 40 mg 11/16/18 14:50 11/18/18 17:30 Lipitor PO 40 mg DIN JHON Administration Clopidogrel Bisulfate 75 mg 11/17/18 10:00 11/19/18 09:22 Plavix PO 75 mg DAILY JHON Administration Collagenase 0 gm 11/18/18 10:00 11/19/18 09:49 Santyl TOP 1 applic DAILY JHON Administration Dextrose 0 ml 11/15/18 16:18 Dextrose 50% Inj IV STAT PRN Hypoglycemia Protocol Protocol Enoxaparin Sodium 40 mg 11/18/18 10:00 11/19/18 09:21 Lovenox SC 40 mg DAILY JHON Administration Protocol Famotidine 20 mg 11/17/18 22:00 11/19/18 09:25 Pepcid IVP 20 mg Q12 JHON Administration Furosemide 40 mg 11/19/18 10:00 11/19/18 09:26 Lasix IVP Not Given DAILY JHON Hydralazine HCl 25 mg 11/15/18 10:00 11/18/18 21:54 Apresoline PO 25 mg QID JHON Administration Sodium Chloride 1,000 mls @ 100 mls/hr 11/14/18 19:00 11/15/18 06:00 Sodium Chloride 0.9% IV 100 mls/hr .Q10H JHON Administration Vancomycin HCl 1 gm in 250 mls @ 167 mls/hr 11/17/18 09:00 11/19/18 09:11 Vancomycin 1gm IVPB Not Given Q12H JHON Protocol Meropenem 1 gm in 50 mls @ 100 mls/hr 11/17/18 14:00 11/19/18 07:59 Merrem Iv 1 Gm Premix IVPB 11/26/18 14:01 100 mls/hr Q8 JHON Administration Protocol Propofol 1,000 mg in 100 mls @ 2.502 mls/hr 11/19/18 06:52 11/19/18 10:24 Diprivan IV 30 mcg/kg/min .Q24H PRN 15.015 mls/hr TITRATE PER MD ORDER Administration Protocol 5 MCG/KG/MIN Acetaminophen 1,000 mg in 100 mls @ 400 mls/hr 11/19/18 07:12 11/19/18 06:50 Ofirmev IVPB 11/21/18 07:13 400 mls/hr Q8H PRN Administration Fever Amiodarone HCl/Dextrose 360 mg in 200 mls @ 33.333 mls/hr 11/19/18 07:15 11/19/18 08:00 Nexterone 360 Mg In D5w 200 Ml (Premix) IV 33.333 mls/hr .Q6H JHON Administration Protocol 1 MG/MIN Insulin Human Regular 0 units 11/16/18 22:00 11/19/18 09:10 Humulin R Med SC 3 u ACHS JHON Administration Protocol Levalbuterol HCl 1.25 mg 11/17/18 23:43 11/17/18 23:56 Xopenex IH 1.25 mg [id number] PRN Administration Shortness of Breath Lisinopril 2.5 mg 11/18/18 10:00 11/19/18 10:27 Zestril PO 2.5 mg DAILY JHON Administration Multivitamins/Minerals 1 tab 11/19/18 08:00 11/19/18 09:22 Therapeutic-M Tab PO 1 tab 0800 JHON Administration Ondansetron HCl 4 mg 11/15/18 04:15 11/15/18 05:03 Zofran Inj IVP 4 mg Q6H PRN Administration Nausea/Vomiting Thiamine HCl 300 mg 11/16/18 17:00 11/19/18 09:22 Vitamin B1 Tab NG 300 mg DAILY JHON Administration Vitamin A 1 ea 11/17/18 14:51 11/17/18 15:10 Vitamin A & D Oint Ud Foilpak TOP 1 ea Q4H PRN Administration Dry skin - Patient Studies Lab Studies: Microbiology Studies 11/14/18 18:19 Blood Culture - Final Blood Coagulase Neg Staphylococcus Gram Stain - Final 11/14/18 18:49 S.aureus & Coag-Neg Staph PNA FISH - Final Blood Blood Culture - Final Coagulase Neg Staphylococcus Gram Stain - Final 11/17/18 15:30 Blood Culture - Preliminary Blood NO GROWTH AFTER 24 HOURS 11/17/18 15:00 Blood Culture - Preliminary Blood NO GROWTH AFTER 24 HOURS Lab Studies 11/19/18 11/19/18 11/19/18 Range/Units 09:00 08:02 08:00 WBC (4.5-11.0) 10^3/uL RBC (3.5-6.1) 10^6/uL Hgb (14.0-18.0) g/dL Hct (42.0-52.0) % MCV (80.0-105.0) fl MCH (25.0-35.0) pg MCHC (31.0-37.0) g/dl RDW (11.5-14.5) % Plt Count (120.0-450.0) 10^3/uL MPV (7.0-11.0) fl Neut % (Auto) (50.0-68.0) % Lymph % (Auto) (22.0-35.0) % [place] % (Auto) (1.0-6.0) % Eos % (Auto) (1.5-5.0) % Baso % (Auto) (0.0-3.0) % Lymph # (Auto) (1.2-3.4) [place] # (Auto) (0.1-0.6) Eos # (Auto) (0.0-0.7) Baso # (Auto) (0.0-2.0) K/mm3 Absolute Neuts (auto) (1.4-6.5) Neutrophils % (Manual) (50.0-70.0) % Lymphocytes % (Manual) (22.0-35.0) % Monocytes % (Manual) (1.0-6.0) % Myelocytes % % Platelet Evaluation (NORMAL) pCO2 (35-45) mm/Hg pO2 (80-100) mm/Hg HCO3 (21-28) mmol/L ABG pH (7.35-7.45) ABG Total CO2 (22-28) mmol.L ABG O2 Saturation (95-98) % ABG O2 Content (15-23) ML/dl ABG Base Excess (-2.0-3.0) mmol/L ABG Hemoglobin (11.7-17.4) g/dL ABG Carboxyhemoglobin (0.5-1.5) % POC ABG HHb (Measured) (0-5) % ABG Methemoglobin (0.0-3.0) % ABG O2 Capacity (16-24) mL/dl ABG Potassium (3.6-5.2) mmol/L Hgb O2 Saturation (95.0-98.0) % Sodium (132-148) mmol/L Chloride (98-107) mmol/L Glucose (75-110) mg/dl Lactate (0.7-2.1) mmol/L FiO2 % Crit Value Called To Crit Value Called By Blood Gas Notified Time Potassium (3.6-5.0) mmol/L Carbon Dioxide (21-33) mmol/L Anion Gap (10-20) BUN (7-21) mg/dL Creatinine (0.8-1.5) mg/dl Est GFR ( Amer) Est GFR (Non-Af Amer) POC Glucose (mg/dL) 235 H (65-110) mg/dL Random Glucose (70-110) mg/dL Calcium (8.4-10.5) mg/dL Phosphorus (2.5-4.5) mg/dL Magnesium (1.7-2.2) mg/dL Total Bilirubin (0.2-1.3) mg/dL AST (17-59) U/L ALT (7-56) U/L Alkaline Phosphatase (38-126) U/L Troponin I 17.40 H* D ng/mL Total Protein (5.8-8.3) g/dL Albumin (3.0-4.8) g/dL Globulin gm/dL Albumin/Globulin Ratio (1.1-1.8) Arterial Blood Potassium (3.6-5.2) mmol/L Vancomycin Trough 29.7 H* (5.0-10.0) ug/mL 11/19/18 11/19/18 11/19/18 Range/Units 08:00 08:00 08:00 WBC 7.7 D (4.5-11.0) 10^3/uL RBC 3.21 L (3.5-6.1) 10^6/uL Hgb 8.4 L (14.0-18.0) g/dL Hct 27.3 L (42.0-52.0) % MCV 85.0 (80.0-105.0) fl MCH 26.2 (25.0-35.0) pg MCHC 30.8 L (31.0-37.0) g/dl RDW 16.4 H (11.5-14.5) % Plt Count 124 (120.0-450.0) 10^3/uL MPV 10.0 (7.0-11.0) fl Neut % (Auto) 94.3 H (50.0-68.0) % Lymph % (Auto) 3.4 L (22.0-35.0) % [place] % (Auto) 1.4 (1.0-6.0) % Eos % (Auto) 0.5 L (1.5-5.0) % Baso % (Auto) 0.4 (0.0-3.0) % Lymph # (Auto) 0.3 L (1.2-3.4) [place] # (Auto) 0.1 (0.1-0.6) Eos # (Auto) 0.0 (0.0-0.7) Baso # (Auto) 0.03 (0.0-2.0) K/mm3 Absolute Neuts (auto) 7.30 H (1.4-6.5) Neutrophils % (Manual) 96 H (50.0-70.0) % Lymphocytes % (Manual) 1 L (22.0-35.0) % Monocytes % (Manual) 2 (1.0-6.0) % Myelocytes % 1 % Platelet Evaluation Normal (NORMAL) pCO2 30 L (35-45) mm/Hg pO2 434.0 H (80-100) mm/Hg HCO3 16.9 L (21-28) mmol/L ABG pH 7.36 (7.35-7.45) ABG Total CO2 17.8 L (22-28) mmol.L ABG O2 Saturation 99.6 H (95-98) % ABG O2 Content 14.5 L (15-23) ML/dl ABG Base Excess -7.6 L (-2.0-3.0) mmol/L ABG Hemoglobin 9.7 L (11.7-17.4) g/dL ABG Carboxyhemoglobin 1.2 (0.5-1.5) % POC ABG HHb (Measured) 0.4 (0-5) % ABG Methemoglobin 1.1 (0.0-3.0) % ABG O2 Capacity 14.6 L (16-24) mL/dl ABG Potassium (3.6-5.2) mmol/L Hgb O2 Saturation 97.3 (95.0-98.0) % Sodium 149 H (132-148) mmol/L Chloride 122 H (98-107) mmol/L Glucose (75-110) mg/dl Lactate (0.7-2.1) mmol/L FiO2 100.0 % Crit Value Called To Crit Value Called By Blood Gas Notified Time Potassium 3.5 L (3.6-5.0) mmol/L Carbon Dioxide 20 L (21-33) mmol/L Anion Gap 11 (10-20) BUN 22 H (7-21) mg/dL Creatinine 1.2 (0.8-1.5) mg/dl Est GFR ( Amer) > 60 Est GFR (Non-Af Amer) > 60 POC Glucose (mg/dL) (65-110) mg/dL Random Glucose 214 H (70-110) mg/dL Calcium 8.1 L (8.4-10.5) mg/dL Phosphorus 4.2 (2.5-4.5) mg/dL Magnesium 2.2 (1.7-2.2) mg/dL Total Bilirubin 0.5 (0.2-1.3) mg/dL AST 26 (17-59) U/L ALT 15 (7-56) U/L Alkaline Phosphatase 76 (38-126) U/L Troponin I ng/mL Total Protein 6.1 (5.8-8.3) g/dL Albumin 2.7 L (3.0-4.8) g/dL Globulin 3.4 gm/dL Albumin/Globulin Ratio 0.8 L (1.1-1.8) Arterial Blood Potassium (3.6-5.2) mmol/L Vancomycin Trough (5.0-10.0) ug/mL 11/19/18 11/19/18 11/18/18 Range/Units 05:50 05:00 21:53 WBC (4.5-11.0) 10^3/uL RBC (3.5-6.1) 10^6/uL Hgb (14.0-18.0) g/dL Hct (42.0-52.0) % MCV (80.0-105.0) fl MCH (25.0-35.0) pg MCHC (31.0-37.0) g/dl RDW (11.5-14.5) % Plt Count (120.0-450.0) 10^3/uL MPV (7.0-11.0) fl Neut % (Auto) (50.0-68.0) % Lymph % (Auto) (22.0-35.0) % [place] % (Auto) (1.0-6.0) % Eos % (Auto) (1.5-5.0) % Baso % (Auto) (0.0-3.0) % Lymph # (Auto) (1.2-3.4) [place] # (Auto) (0.1-0.6) Eos # (Auto) (0.0-0.7) Baso # (Auto) (0.0-2.0) K/mm3 Absolute Neuts (auto) (1.4-6.5) Neutrophils % (Manual) (50.0-70.0) % Lymphocytes % (Manual) (22.0-35.0) % Monocytes % (Manual) (1.0-6.0) % Myelocytes % % Platelet Evaluation (NORMAL) pCO2 26 L 26 L (35-45) mm/Hg pO2 120.0 H 90.0 (80-100) mm/Hg HCO3 16.5 L 16.9 L (21-28) mmol/L ABG pH 7.41 7.42 (7.35-7.45) ABG Total CO2 17.3 L 17.7 L (22-28) mmol.L ABG O2 Saturation 99.6 H 99.0 H (95-98) % ABG O2 Content 11.9 L (15-23) ML/dl ABG Base Excess -6.5 L -6.6 L (-2.0-3.0) mmol/L ABG Hemoglobin 8.7 L (11.7-17.4) g/dL ABG Carboxyhemoglobin 1.9 H (0.5-1.5) % POC ABG HHb (Measured) 1.0 (0-5) % ABG Methemoglobin 1.0 (0.0-3.0) % ABG O2 Capacity 12.0 L (16-24) mL/dl ABG Potassium 3.3 L (3.6-5.2) mmol/L Hgb O2 Saturation 96.0 (95.0-98.0) % Sodium 150.0 H (132-148) mmol/L Chloride 125.0 H (98-107) mmol/L Glucose 201 H (75-110) mg/dl Lactate 0.9 (0.7-2.1) mmol/L FiO2 100.0 28.0 % Crit Value Called To [facility] Crit Value Called By [facility] Blood Gas Notified Time 613 Potassium (3.6-5.0) mmol/L Carbon Dioxide (21-33) mmol/L Anion Gap (10-20) BUN (7-21) mg/dL Creatinine (0.8-1.5) mg/dl Est GFR ( Amer) Est GFR (Non-Af Amer) POC Glucose (mg/dL) 176 H (65-110) mg/dL Random Glucose (70-110) mg/dL Calcium (8.4-10.5) mg/dL Phosphorus (2.5-4.5) mg/dL Magnesium (1.7-2.2) mg/dL Total Bilirubin (0.2-1.3) mg/dL AST (17-59) U/L ALT (7-56) U/L Alkaline Phosphatase (38-126) U/L Troponin I ng/mL Total Protein (5.8-8.3) g/dL Albumin (3.0-4.8) g/dL Globulin gm/dL Albumin/Globulin Ratio (1.1-1.8) Arterial Blood Potassium 3.3 L (3.6-5.2) mmol/L Vancomycin Trough (5.0-10.0) ug/mL 11/18/18 11/18/18 Range/Units 17:12 11:23 WBC (4.5-11.0) 10^3/uL RBC (3.5-6.1) 10^6/uL Hgb (14.0-18.0) g/dL Hct (42.0-52.0) % MCV (80.0-105.0) fl MCH (25.0-35.0) pg MCHC (31.0-37.0) g/dl RDW (11.5-14.5) % Plt Count (120.0-450.0) 10^3/uL MPV (7.0-11.0) fl Neut % (Auto) (50.0-68.0) % Lymph % (Auto) (22.0-35.0) % [place] % (Auto) (1.0-6.0) % Eos % (Auto) (1.5-5.0) % Baso % (Auto) (0.0-3.0) % Lymph # (Auto) (1.2-3.4) [place] # (Auto) (0.1-0.6) Eos # (Auto) (0.0-0.7) Baso # (Auto) (0.0-2.0) K/mm3 Absolute Neuts (auto) (1.4-6.5) Neutrophils % (Manual) (50.0-70.0) % Lymphocytes % (Manual) (22.0-35.0) % Monocytes % (Manual) (1.0-6.0) % Myelocytes % % Platelet Evaluation (NORMAL) pCO2 (35-45) mm/Hg pO2 (80-100) mm/Hg HCO3 (21-28) mmol/L ABG pH (7.35-7.45) ABG Total CO2 (22-28) mmol.L ABG O2 Saturation (95-98) % ABG O2 Content (15-23) ML/dl ABG Base Excess (-2.0-3.0) mmol/L ABG Hemoglobin (11.7-17.4) g/dL ABG Carboxyhemoglobin (0.5-1.5) % POC ABG HHb (Measured) (0-5) % ABG Methemoglobin (0.0-3.0) % ABG O2 Capacity (16-24) mL/dl ABG Potassium (3.6-5.2) mmol/L Hgb O2 Saturation (95.0-98.0) % Sodium (132-148) mmol/L Chloride (98-107) mmol/L Glucose (75-110) mg/dl Lactate (0.7-2.1) mmol/L FiO2 % Crit Value Called To Crit Value Called By Blood Gas Notified Time Potassium (3.6-5.0) mmol/L Carbon Dioxide (21-33) mmol/L Anion Gap (10-20) BUN (7-21) mg/dL Creatinine (0.8-1.5) mg/dl Est GFR ( Amer) Est GFR (Non-Af Amer) POC Glucose (mg/dL) 163 H 168 H (65-110) mg/dL Random Glucose (70-110) mg/dL Calcium (8.4-10.5) mg/dL Phosphorus (2.5-4.5) mg/dL Magnesium (1.7-2.2) mg/dL Total Bilirubin (0.2-1.3) mg/dL AST (17-59) U/L ALT (7-56) U/L Alkaline Phosphatase (38-126) U/L Troponin I ng/mL Total Protein (5.8-8.3) g/dL Albumin (3.0-4.8) g/dL Globulin gm/dL Albumin/Globulin Ratio (1.1-1.8) Arterial Blood Potassium (3.6-5.2) mmol/L Vancomycin Trough (5.0-10.0) ug/mL Laboratory Results - last 24 hr 11/18/18 11/18/18 11/18/18 11:23 17:12 21:53 WBC RBC Hgb Hct MCV MCH MCHC RDW Plt Count MPV Neut % (Auto) Lymph % (Auto) [place] % (Auto) Eos % (Auto) Baso % (Auto) Lymph # (Auto) [place] # (Auto) Eos # (Auto) Baso # (Auto) Absolute Neuts (auto) Neutrophils % (Manual) Lymphocytes % (Manual) Monocytes % (Manual) Myelocytes % Platelet Evaluation pCO2 pO2 HCO3 ABG pH ABG Total CO2 ABG O2 Saturation ABG O2 Content ABG Base Excess ABG Hemoglobin ABG Carboxyhemoglobin POC ABG HHb (Measured) ABG Methemoglobin ABG O2 Capacity ABG Potassium Hgb O2 Saturation Sodium Chloride Glucose Lactate FiO2 Crit Value Called To Crit Value Called By Blood Gas Notified Time Potassium Carbon Dioxide Anion Gap BUN Creatinine Est GFR ( Amer) Est GFR (Non-Af Amer) POC Glucose (mg/dL) 168 H 163 H 176 H Random Glucose Calcium Phosphorus Magnesium Total Bilirubin AST ALT Alkaline Phosphatase Troponin I Total Protein Albumin Globulin Albumin/Globulin Ratio Arterial Blood Potassium Vancomycin Trough 11/19/18 11/19/18 11/19/18 05:00 05:50 08:00 WBC 7.7 D RBC 3.21 L Hgb 8.4 L Hct 27.3 L MCV 85.0 MCH 26.2 MCHC 30.8 L RDW 16.4 H Plt Count 124 MPV 10.0 Neut % (Auto) 94.3 H Lymph % (Auto) 3.4 L [place] % (Auto) 1.4 Eos % (Auto) 0.5 L Baso % (Auto) 0.4 Lymph # (Auto) 0.3 L [place] # (Auto) 0.1 Eos # (Auto) 0.0 Baso # (Auto) 0.03 Absolute Neuts (auto) 7.30 H Neutrophils % (Manual) 96 H Lymphocytes % (Manual) 1 L Monocytes % (Manual) 2 Myelocytes % 1 Platelet Evaluation Normal pCO2 26 L 26 L pO2 90.0 120.0 H HCO3 16.9 L 16.5 L ABG pH 7.42 7.41 ABG Total CO2 17.7 L 17.3 L ABG O2 Saturation 99.0 H 99.6 H ABG O2 Content 11.9 L ABG Base Excess -6.6 L -6.5 L ABG Hemoglobin 8.7 L ABG Carboxyhemoglobin 1.9 H POC ABG HHb (Measured) 1.0 ABG Methemoglobin 1.0 ABG O2 Capacity 12.0 L ABG Potassium 3.3 L Hgb O2 Saturation 96.0 Sodium 150.0 H Chloride 125.0 H Glucose 201 H Lactate 0.9 FiO2 28.0 100.0 Crit Value Called To [facility] Crit Value Called By [facility] Blood Gas Notified Time 613 Potassium Carbon Dioxide Anion Gap BUN Creatinine Est GFR ( Amer) Est GFR (Non-Af Amer) POC Glucose (mg/dL) Random Glucose Calcium Phosphorus Magnesium Total Bilirubin AST ALT Alkaline Phosphatase Troponin I Total Protein Albumin Globulin Albumin/Globulin Ratio Arterial Blood Potassium 3.3 L Vancomycin Trough 11/19/18 11/19/18 11/19/18 08:00 08:00 08:00 WBC RBC Hgb Hct MCV MCH MCHC RDW Plt Count MPV Neut % (Auto) Lymph % (Auto) [place] % (Auto) Eos % (Auto) Baso % (Auto) Lymph # (Auto) [place] # (Auto) Eos # (Auto) Baso # (Auto) Absolute Neuts (auto) Neutrophils % (Manual) Lymphocytes % (Manual) Monocytes % (Manual) Myelocytes % Platelet Evaluation pCO2 30 L pO2 434.0 H HCO3 16.9 L ABG pH 7.36 ABG Total CO2 17.8 L ABG O2 Saturation 99.6 H ABG O2 Content 14.5 L ABG Base Excess -7.6 L ABG Hemoglobin 9.7 L ABG Carboxyhemoglobin 1.2 POC ABG HHb (Measured) 0.4 ABG Methemoglobin 1.1 ABG O2 Capacity 14.6 L ABG Potassium Hgb O2 Saturation 97.3 Sodium 149 H Chloride 122 H Glucose Lactate FiO2 100.0 Crit Value Called To Crit Value Called By Blood Gas Notified Time Potassium 3.5 L Carbon Dioxide 20 L Anion Gap 11 BUN 22 H Creatinine 1.2 Est GFR ( Amer) > 60 Est GFR (Non-Af Amer) > 60 POC Glucose (mg/dL) Random Glucose 214 H Calcium 8.1 L Phosphorus 4.2 Magnesium 2.2 Total Bilirubin 0.5 AST 26 ALT 15 Alkaline Phosphatase 76 Troponin I 17.40 H* D Total Protein 6.1 Albumin 2.7 L Globulin 3.4 Albumin/Globulin Ratio 0.8 L Arterial Blood Potassium Vancomycin Trough 11/19/18 11/19/18 08:02 09:00 WBC RBC Hgb Hct MCV MCH MCHC RDW Plt Count MPV Neut % (Auto) Lymph % (Auto) [place] % (Auto) Eos % (Auto) Baso % (Auto) Lymph # (Auto) [place] # (Auto) Eos # (Auto) Baso # (Auto) Absolute Neuts (auto) Neutrophils % (Manual) Lymphocytes % (Manual) Monocytes % (Manual) Myelocytes % Platelet Evaluation pCO2 pO2 HCO3 ABG pH ABG Total CO2 ABG O2 Saturation ABG O2 Content ABG Base Excess ABG Hemoglobin ABG Carboxyhemoglobin POC ABG HHb (Measured) ABG Methemoglobin ABG O2 Capacity ABG Potassium Hgb O2 Saturation Sodium Chloride Glucose Lactate FiO2 Crit Value Called To Crit Value Called By Blood Gas Notified Time Potassium Carbon Dioxide Anion Gap BUN Creatinine Est GFR ( Amer) Est GFR (Non-Af Amer) POC Glucose (mg/dL) 235 H Random Glucose Calcium Phosphorus Magnesium Total Bilirubin AST ALT Alkaline Phosphatase Troponin I Total Protein Albumin Globulin Albumin/Globulin Ratio Arterial Blood Potassium Vancomycin Trough 29.7 H* Radiology Impressions: Radiology Impressions Chest X-Ray 11/18/18 07:35 IMPRESSION: Abnormal position of the Dobbhoff tube which can be seen passing into the right mainstem bronchus and terminating in the right lower lobe Chest X-Ray 11/18/18 12:51 IMPRESSION: The feeding tube can be seen just beyond the GE junction Chest X-Ray 11/19/18 06:00 IMPRESSION: Cardiomegaly with probable mild pulmonary venous congestion. Shallow lung volumes accentuate bronchovascular markings crowding prominence. Other findings as above. Chest X-Ray 11/19/18 07:32 IMPRESSION: Interval endotracheal tube insertion position appears satisfactory. Interval decreased pulmonary venous congestion. Other findings as above. EKG/Cardiology Studies: Cardiology / EKG Studies 11/19/18 06:47 EKG [ELECTROCARDIOGRAM] Stat Comment: Reason For Exam: Intubated PERFORMING PHYSICIAN/PROVIDER:: Ros Rao Fingerstick Blood Sugar Results: 253 Review of Systems - Review of Systems Systems not reviewed;Unavailable: Intubated Critical Care Progress Note - Nutrition Nutrition: Nutrition Category Date Time Status NPO Diet [DIET] Diets 11/16/18 Lunch Ordered Assessment/Plan - Assessment and Plan (Free Text) Assessment: 63 year old male with a PMHx of severely dilated cardiomyopathy EF 14%, moderate pulmonary hypertension, paroxysmal atrial fibrillation, ITP normocytic anemia, DM II, hypertension, pseudogout, anxiety, PVD who was brought in by EMS as he was found pulseless in ventricular fibrillation. Intubated overnight, currently sedated on Propofol. Cardiovascular -Hgb 8.4, 1 unit PRBC to be transfused 11/19/18 -Maintain MAP>65, afterload reduction -IABP removed 11/17 -Lasix and Hydralazine on hold -Continue ASA/Plavix, ROBERTO -Begin Amiodarone drip, Hold Amiodarone PO -Discontinue Dobutamine drip at 2.5 -C/w imdur 30mg po qd, lipitor 40mg po din, metoprolol tartrate 25mg po bid (all administered via ngt) -S/P cardiac arrest; troponin 25.80 -> 25.40 -> 24 >17 -BNP 22,500 -11/16/18 echo shows EF 20%, consider repeat in 24 hours -Cardiology consulted - Dr. Saxena. 11.16.18 Cardiac cath 1 FRANCO in circumflex, 2 FRANCO in LAD. Further recs appreciated. -S/p midline placement Gastrintestinal -s/p Dobhoff placement -Tube feeds -Continue w Pepcid IV BID -Gastrotenterology consulted, Dr Hardy Infectious Disease -r/o HCAP versus urine as source -UA shows large Leukocyte esterase, Urine WBC Tntc, negative nitrate -Urine cx growing Proteus -cxr 11/15/18: * no active pulmonary dz, moderate cardiomegaly and pulmonary venous congestion -patient currently on Merrem q8 -Vanc trough 29.7 so AM dose of Vancomycin held -procal 0.11 -F/u sputum cx -MRSA negative -Blood cx growing gram pos cocci -ID consulted, Dr Fernandes Neurologic -Continue to monitor in setting of encephalopathy -11/16/18 vEEG: severe, non specific diffuse disturbance of cortical activity. This is in keeping with a diffuse hernandez matter dysfunction. No seizures or status presently. -Neurology (Dr. Mcdaniels) consulted for AMS- no need for further antiepileptics. Thiamine 300 mg daily -CT head 11/15/18 * CT head 11/14: no acute intracrainal abnormality, chronic lacunar infarctions in right dennison radiata and basal ganglia, mild chronic microangiopathic changes and mild age related global parenchymal volume loss Pulmonary -Maintain O2 sat >95% -NC PRN -HOB greater than 30 degrees -11/18/18 ABG shows compensated metabolic acidosis -11/19/18 CXR confirms ETT and NGT placement -Pulmonology consulted, Dr Burr- recs appreciated Renal/ -Maintain euvolemia -UTI, Proteus on culture -Monitor I&O -Replete electrolytes as needed Endocrine -Maintain euglycemia -mISS and accuchecks DVT ppx: Lovenox GI Ppx: Pepcid IV BID Code Status: Full code Dispo: Will likely require a LTAC Facility Patient seen, case reviewed and plan approved by Dr. Sung. Ismael Turner, PGY-1 <Golden Sung - Last Filed: 11/19/18 12:17> CCU Objective - Vital Signs / Intake & Output Vital Signs (Last 4 hours): Vital Signs Pulse BP 11/19/18 10:27 70 108/47 L Intake and Output (Last 8hrs): Intake & Output 11/18/18 11/19/18 11/19/18 22:59 06:59 14:59 Intake Total 768 100 Output Total 1000 Balance -232 100 Intake: IV 768 100 IVPB 350 Right Femoral 418 Output: Urine 1000 Urethral (Ash) 1000 - Medications Active Medications: Active Medications Generic Name Dose Route Start Last Admin Trade Name Freq PRN Reason Stop Dose Admin Amiodarone HCl 400 mg 11/16/18 17:00 11/19/18 09:05 Cordarone PO Not Given BRKDIN JHON Ascorbic Acid 500 mg 11/18/18 18:00 11/19/18 09:49 Vitamin C Liq PO 500 mg BID JHON Administration Aspirin 81 mg 11/15/18 16:45 11/19/18 09:22 Aspirin Chewable PO 81 mg DAILY JHON Administration Atorvastatin Calcium 40 mg 11/16/18 14:50 11/18/18 17:30 Lipitor PO 40 mg DIN JHON Administration Clopidogrel Bisulfate 75 mg 11/17/18 10:00 11/19/18 09:22 Plavix PO 75 mg DAILY JHON Administration Collagenase 0 gm 11/18/18 10:00 11/19/18 09:49 Santyl TOP 1 applic DAILY JHON Administration Dextrose 0 ml 11/15/18 16:18 Dextrose 50% Inj IV STAT PRN Hypoglycemia Protocol Protocol Enoxaparin Sodium 40 mg 11/18/18 10:00 11/19/18 09:21 Lovenox SC 40 mg DAILY JHON Administration Protocol Famotidine 20 mg 11/17/18 22:00 11/19/18 09:25 Pepcid IVP 20 mg Q12 JHON Administration Furosemide 40 mg 11/19/18 10:00 11/19/18 09:26 Lasix IVP Not Given DAILY JHON Hydralazine HCl 25 mg 11/15/18 10:00 11/18/18 21:54 Apresoline PO 25 mg QID JHON Administration Sodium Chloride 1,000 mls @ 100 mls/hr 11/14/18 19:00 11/15/18 06:00 Sodium Chloride 0.9% IV 100 mls/hr .Q10H JHON Administration Vancomycin HCl 1 gm in 250 mls @ 167 mls/hr 11/17/18 09:00 11/19/18 09:11 Vancomycin 1gm IVPB Not Given Q12H JHON Protocol Meropenem 1 gm in 50 mls @ 100 mls/hr 11/17/18 14:00 11/19/18 07:59 Merrem Iv 1 Gm Premix IVPB 11/26/18 14:01 100 mls/hr Q8 JHON Administration Protocol Propofol 1,000 mg in 100 mls @ 2.502 mls/hr 11/19/18 06:52 11/19/18 10:24 Diprivan IV 30 mcg/kg/min .Q24H PRN 15.015 mls/hr TITRATE PER MD ORDER Administration Protocol 5 MCG/KG/MIN Acetaminophen 1,000 mg in 100 mls @ 400 mls/hr 11/19/18 07:12 11/19/18 06:50 Ofirmev IVPB 11/21/18 07:13 400 mls/hr Q8H PRN Administration Fever Amiodarone HCl/Dextrose 360 mg in 200 mls @ 33.333 mls/hr 11/19/18 07:15 11/19/18 08:00 Nexterone 360 Mg In D5w 200 Ml (Premix) IV 33.333 mls/hr .Q6H JHON Administration Protocol 1 MG/MIN Insulin Human Regular 0 units 11/16/18 22:00 11/19/18 09:10 Humulin R Med SC 3 u ACHS JHON Administration Protocol Levalbuterol HCl 1.25 mg 11/17/18 23:43 11/17/18 23:56 Xopenex IH 1.25 mg [id number] PRN Administration Shortness of Breath Lisinopril 2.5 mg 11/18/18 10:00 11/19/18 10:27 Zestril PO 2.5 mg DAILY JHON Administration Multivitamins/Minerals 1 tab 11/19/18 08:00 11/19/18 09:22 Therapeutic-M Tab PO 1 tab 0800 JHON Administration Ondansetron HCl 4 mg 11/15/18 04:15 11/15/18 05:03 Zofran Inj IVP 4 mg Q6H PRN Administration Nausea/Vomiting Thiamine HCl 300 mg 11/16/18 17:00 11/19/18 09:22 Vitamin B1 Tab NG 300 mg DAILY JHON Administration Vitamin A 1 ea 11/17/18 14:51 11/17/18 15:10 Vitamin A & D Oint Ud Foilpak TOP 1 ea Q4H PRN Administration Dry skin - Patient Studies Lab Studies: Microbiology Studies 11/17/18 08:38 Gram Stain - Final Sputum Induced Sputum Culture - Final NORMAL ORAL HATTIE 11/14/18 18:19 Blood Culture - Final Blood Coagulase Neg Staphylococcus Gram Stain - Final 11/14/18 18:49 S.aureus & Coag-Neg Staph PNA FISH - Final Blood Blood Culture - Final Coagulase Neg Staphylococcus Gram Stain - Final 11/17/18 15:30 Blood Culture - Preliminary Blood NO GROWTH AFTER 24 HOURS 11/17/18 15:00 Blood Culture - Preliminary Blood NO GROWTH AFTER 24 HOURS Lab Studies 11/19/18 11/19/18 11/19/18 Range/Units 11:25 09:00 08:02 WBC (4.5-11.0) 10^3/uL RBC (3.5-6.1) 10^6/uL Hgb (14.0-18.0) g/dL Hct (42.0-52.0) % MCV (80.0-105.0) fl MCH (25.0-35.0) pg MCHC (31.0-37.0) g/dl RDW (11.5-14.5) % Plt Count (120.0-450.0) 10^3/uL MPV (7.0-11.0) fl Neut % (Auto) (50.0-68.0) % Lymph % (Auto) (22.0-35.0) % [place] % (Auto) (1.0-6.0) % Eos % (Auto) (1.5-5.0) % Baso % (Auto) (0.0-3.0) % Lymph # (Auto) (1.2-3.4) [place] # (Auto) (0.1-0.6) Eos # (Auto) (0.0-0.7) Baso # (Auto) (0.0-2.0) K/mm3 Absolute Neuts (auto) (1.4-6.5) Neutrophils % (Manual) (50.0-70.0) % Lymphocytes % (Manual) (22.0-35.0) % Monocytes % (Manual) (1.0-6.0) % Myelocytes % % Platelet Evaluation (NORMAL) pCO2 (35-45) mm/Hg pO2 (80-100) mm/Hg HCO3 (21-28) mmol/L ABG pH (7.35-7.45) ABG Total CO2 (22-28) mmol.L ABG O2 Saturation (95-98) % ABG O2 Content (15-23) ML/dl ABG Base Excess (-2.0-3.0) mmol/L ABG Hemoglobin (11.7-17.4) g/dL ABG Carboxyhemoglobin (0.5-1.5) % POC ABG HHb (Measured) (0-5) % ABG Methemoglobin (0.0-3.0) % ABG O2 Capacity (16-24) mL/dl ABG Potassium (3.6-5.2) mmol/L Hgb O2 Saturation (95.0-98.0) % Sodium (132-148) mmol/L Chloride (98-107) mmol/L Glucose (75-110) mg/dl Lactate (0.7-2.1) mmol/L FiO2 % Crit Value Called To Crit Value Called By Blood Gas Notified Time Potassium (3.6-5.0) mmol/L Carbon Dioxide (21-33) mmol/L Anion Gap (10-20) BUN (7-21) mg/dL Creatinine (0.8-1.5) mg/dl Est GFR ( Amer) Est GFR (Non-Af Amer) POC Glucose (mg/dL) 235 H (65-110) mg/dL Random Glucose (70-110) mg/dL Calcium (8.4-10.5) mg/dL Phosphorus (2.5-4.5) mg/dL Magnesium (1.7-2.2) mg/dL Total Bilirubin (0.2-1.3) mg/dL AST (17-59) U/L ALT (7-56) U/L Alkaline Phosphatase (38-126) U/L Troponin I ng/mL Total Protein (5.8-8.3) g/dL Albumin (3.0-4.8) g/dL Globulin gm/dL Albumin/Globulin Ratio (1.1-1.8) Arterial Blood Potassium (3.6-5.2) mmol/L Vancomycin Trough 29.7 H* (5.0-10.0) ug/mL Crossmatch See Detail BBK History Checked Patient has bt 11/19/18 11/19/18 11/19/18 Range/Units 08:00 08:00 08:00 WBC (4.5-11.0) 10^3/uL RBC (3.5-6.1) 10^6/uL Hgb (14.0-18.0) g/dL Hct (42.0-52.0) % MCV (80.0-105.0) fl MCH (25.0-35.0) pg MCHC (31.0-37.0) g/dl RDW (11.5-14.5) % Plt Count (120.0-450.0) 10^3/uL MPV (7.0-11.0) fl Neut % (Auto) (50.0-68.0) % Lymph % (Auto) (22.0-35.0) % [place] % (Auto) (1.0-6.0) % Eos % (Auto) (1.5-5.0) % Baso % (Auto) (0.0-3.0) % Lymph # (Auto) (1.2-3.4) [place] # (Auto) (0.1-0.6) Eos # (Auto) (0.0-0.7) Baso # (Auto) (0.0-2.0) K/mm3 Absolute Neuts (auto) (1.4-6.5) Neutrophils % (Manual) (50.0-70.0) % Lymphocytes % (Manual) (22.0-35.0) % Monocytes % (Manual) (1.0-6.0) % Myelocytes % % Platelet Evaluation (NORMAL) pCO2 30 L (35-45) mm/Hg pO2 434.0 H (80-100) mm/Hg HCO3 16.9 L (21-28) mmol/L ABG pH 7.36 (7.35-7.45) ABG Total CO2 17.8 L (22-28) mmol.L ABG O2 Saturation 99.6 H (95-98) % ABG O2 Content 14.5 L (15-23) ML/dl ABG Base Excess -7.6 L (-2.0-3.0) mmol/L ABG Hemoglobin 9.7 L (11.7-17.4) g/dL ABG Carboxyhemoglobin 1.2 (0.5-1.5) % POC ABG HHb (Measured) 0.4 (0-5) % ABG Methemoglobin 1.1 (0.0-3.0) % ABG O2 Capacity 14.6 L (16-24) mL/dl ABG Potassium (3.6-5.2) mmol/L Hgb O2 Saturation 97.3 (95.0-98.0) % Sodium 149 H (132-148) mmol/L Chloride 122 H (98-107) mmol/L Glucose (75-110) mg/dl Lactate (0.7-2.1) mmol/L FiO2 100.0 % Crit Value Called To Crit Value Called By Blood Gas Notified Time Potassium 3.5 L (3.6-5.0) mmol/L Carbon Dioxide 20 L (21-33) mmol/L Anion Gap 11 (10-20) BUN 22 H (7-21) mg/dL Creatinine 1.2 (0.8-1.5) mg/dl Est GFR ( Amer) > 60 Est GFR (Non-Af Amer) > 60 POC Glucose (mg/dL) (65-110) mg/dL Random Glucose 214 H (70-110) mg/dL Calcium 8.1 L (8.4-10.5) mg/dL Phosphorus 4.2 (2.5-4.5) mg/dL Magnesium 2.2 (1.7-2.2) mg/dL Total Bilirubin 0.5 (0.2-1.3) mg/dL AST 26 (17-59) U/L ALT 15 (7-56) U/L Alkaline Phosphatase 76 (38-126) U/L Troponin I 17.40 H* D ng/mL Total Protein 6.1 (5.8-8.3) g/dL Albumin 2.7 L (3.0-4.8) g/dL Globulin 3.4 gm/dL Albumin/Globulin Ratio 0.8 L (1.1-1.8) Arterial Blood Potassium (3.6-5.2) mmol/L Vancomycin Trough (5.0-10.0) ug/mL Crossmatch BBK History Checked 11/19/18 11/19/18 11/19/18 Range/Units 08:00 05:50 05:00 WBC 7.7 D (4.5-11.0) 10^3/uL RBC 3.21 L (3.5-6.1) 10^6/uL Hgb 8.4 L (14.0-18.0) g/dL Hct 27.3 L (42.0-52.0) % MCV 85.0 (80.0-105.0) fl MCH 26.2 (25.0-35.0) pg MCHC 30.8 L (31.0-37.0) g/dl RDW 16.4 H (11.5-14.5) % Plt Count 124 (120.0-450.0) 10^3/uL MPV 10.0 (7.0-11.0) fl Neut % (Auto) 94.3 H (50.0-68.0) % Lymph % (Auto) 3.4 L (22.0-35.0) % [place] % (Auto) 1.4 (1.0-6.0) % Eos % (Auto) 0.5 L (1.5-5.0) % Baso % (Auto) 0.4 (0.0-3.0) % Lymph # (Auto) 0.3 L (1.2-3.4) [place] # (Auto) 0.1 (0.1-0.6) Eos # (Auto) 0.0 (0.0-0.7) Baso # (Auto) 0.03 (0.0-2.0) K/mm3 Absolute Neuts (auto) 7.30 H (1.4-6.5) Neutrophils % (Manual) 96 H (50.0-70.0) % Lymphocytes % (Manual) 1 L (22.0-35.0) % Monocytes % (Manual) 2 (1.0-6.0) % Myelocytes % 1 % Platelet Evaluation Normal (NORMAL) pCO2 26 L 26 L (35-45) mm/Hg pO2 120.0 H 90.0 (80-100) mm/Hg HCO3 16.5 L 16.9 L (21-28) mmol/L ABG pH 7.41 7.42 (7.35-7.45) ABG Total CO2 17.3 L 17.7 L (22-28) mmol.L ABG O2 Saturation 99.6 H 99.0 H (95-98) % ABG O2 Content 11.9 L (15-23) ML/dl ABG Base Excess -6.5 L -6.6 L (-2.0-3.0) mmol/L ABG Hemoglobin 8.7 L (11.7-17.4) g/dL ABG Carboxyhemoglobin 1.9 H (0.5-1.5) % POC ABG HHb (Measured) 1.0 (0-5) % ABG Methemoglobin 1.0 (0.0-3.0) % ABG O2 Capacity 12.0 L (16-24) mL/dl ABG Potassium 3.3 L (3.6-5.2) mmol/L Hgb O2 Saturation 96.0 (95.0-98.0) % Sodium 150.0 H (132-148) mmol/L Chloride 125.0 H (98-107) mmol/L Glucose 201 H (75-110) mg/dl Lactate 0.9 (0.7-2.1) mmol/L FiO2 100.0 28.0 % Crit Value Called To [facility] Crit Value Called By [facility] Blood Gas Notified Time 613 Potassium (3.6-5.0) mmol/L Carbon Dioxide (21-33) mmol/L Anion Gap (10-20) BUN (7-21) mg/dL Creatinine (0.8-1.5) mg/dl Est GFR ( Amer) Est GFR (Non-Af Amer) POC Glucose (mg/dL) (65-110) mg/dL Random Glucose (70-110) mg/dL Calcium (8.4-10.5) mg/dL Phosphorus (2.5-4.5) mg/dL Magnesium (1.7-2.2) mg/dL Total Bilirubin (0.2-1.3) mg/dL AST (17-59) U/L ALT (7-56) U/L Alkaline Phosphatase (38-126) U/L Troponin I ng/mL Total Protein (5.8-8.3) g/dL Albumin (3.0-4.8) g/dL Globulin gm/dL Albumin/Globulin Ratio (1.1-1.8) Arterial Blood Potassium 3.3 L (3.6-5.2) mmol/L Vancomycin Trough (5.0-10.0) ug/mL Crossmatch BBK History Checked 11/18/18 11/18/18 Range/Units 21:53 17:12 WBC (4.5-11.0) 10^3/uL RBC (3.5-6.1) 10^6/uL Hgb (14.0-18.0) g/dL Hct (42.0-52.0) % MCV (80.0-105.0) fl MCH (25.0-35.0) pg MCHC (31.0-37.0) g/dl RDW (11.5-14.5) % Plt Count (120.0-450.0) 10^3/uL MPV (7.0-11.0) fl Neut % (Auto) (50.0-68.0) % Lymph % (Auto) (22.0-35.0) % [place] % (Auto) (1.0-6.0) % Eos % (Auto) (1.5-5.0) % Baso % (Auto) (0.0-3.0) % Lymph # (Auto) (1.2-3.4) [place] # (Auto) (0.1-0.6) Eos # (Auto) (0.0-0.7) Baso # (Auto) (0.0-2.0) K/mm3 Absolute Neuts (auto) (1.4-6.5) Neutrophils % (Manual) (50.0-70.0) % Lymphocytes % (Manual) (22.0-35.0) % Monocytes % (Manual) (1.0-6.0) % Myelocytes % % Platelet Evaluation (NORMAL) pCO2 (35-45) mm/Hg pO2 (80-100) mm/Hg HCO3 (21-28) mmol/L ABG pH (7.35-7.45) ABG Total CO2 (22-28) mmol.L ABG O2 Saturation (95-98) % ABG O2 Content (15-23) ML/dl ABG Base Excess (-2.0-3.0) mmol/L ABG Hemoglobin (11.7-17.4) g/dL ABG Carboxyhemoglobin (0.5-1.5) % POC ABG HHb (Measured) (0-5) % ABG Methemoglobin (0.0-3.0) % ABG O2 Capacity (16-24) mL/dl ABG Potassium (3.6-5.2) mmol/L Hgb O2 Saturation (95.0-98.0) % Sodium (132-148) mmol/L Chloride (98-107) mmol/L Glucose (75-110) mg/dl Lactate (0.7-2.1) mmol/L FiO2 % Crit Value Called To Crit Value Called By Blood Gas Notified Time Potassium (3.6-5.0) mmol/L Carbon Dioxide (21-33) mmol/L Anion Gap (10-20) BUN (7-21) mg/dL Creatinine (0.8-1.5) mg/dl Est GFR ( Amer) Est GFR (Non-Af Amer) POC Glucose (mg/dL) 176 H 163 H (65-110) mg/dL Random Glucose (70-110) mg/dL Calcium (8.4-10.5) mg/dL Phosphorus (2.5-4.5) mg/dL Magnesium (1.7-2.2) mg/dL Total Bilirubin (0.2-1.3) mg/dL AST (17-59) U/L ALT (7-56) U/L Alkaline Phosphatase (38-126) U/L Troponin I ng/mL Total Protein (5.8-8.3) g/dL Albumin (3.0-4.8) g/dL Globulin gm/dL Albumin/Globulin Ratio (1.1-1.8) Arterial Blood Potassium (3.6-5.2) mmol/L Vancomycin Trough (5.0-10.0) ug/mL Crossmatch BBK History Checked Laboratory Results - last 24 hr 11/18/18 11/18/18 11/19/18 17:12 21:53 05:00 WBC RBC Hgb Hct MCV MCH MCHC RDW Plt Count MPV Neut % (Auto) Lymph % (Auto) [place] % (Auto) Eos % (Auto) Baso % (Auto) Lymph # (Auto) [place] # (Auto) Eos # (Auto) Baso # (Auto) Absolute Neuts (auto) Neutrophils % (Manual) Lymphocytes % (Manual) Monocytes % (Manual) Myelocytes % Platelet Evaluation pCO2 26 L pO2 90.0 HCO3 16.9 L ABG pH 7.42 ABG Total CO2 17.7 L ABG O2 Saturation 99.0 H ABG O2 Content 11.9 L ABG Base Excess -6.6 L ABG Hemoglobin 8.7 L ABG Carboxyhemoglobin 1.9 H POC ABG HHb (Measured) 1.0 ABG Methemoglobin 1.0 ABG O2 Capacity 12.0 L ABG Potassium Hgb O2 Saturation 96.0 Sodium Chloride Glucose Lactate FiO2 28.0 Crit Value Called To Crit Value Called By Blood Gas Notified Time Potassium Carbon Dioxide Anion Gap BUN Creatinine Est GFR ( Amer) Est GFR (Non-Af Amer) POC Glucose (mg/dL) 163 H 176 H Random Glucose Calcium Phosphorus Magnesium Total Bilirubin AST ALT Alkaline Phosphatase Troponin I Total Protein Albumin Globulin Albumin/Globulin Ratio Arterial Blood Potassium Vancomycin Trough Crossmatch BBK History Checked 11/19/18 11/19/18 11/19/18 05:50 08:00 08:00 WBC 7.7 D RBC 3.21 L Hgb 8.4 L Hct 27.3 L MCV 85.0 MCH 26.2 MCHC 30.8 L RDW 16.4 H Plt Count 124 MPV 10.0 Neut % (Auto) 94.3 H Lymph % (Auto) 3.4 L [place] % (Auto) 1.4 Eos % (Auto) 0.5 L Baso % (Auto) 0.4 Lymph # (Auto) 0.3 L [place] # (Auto) 0.1 Eos # (Auto) 0.0 Baso # (Auto) 0.03 Absolute Neuts (auto) 7.30 H Neutrophils % (Manual) 96 H Lymphocytes % (Manual) 1 L Monocytes % (Manual) 2 Myelocytes % 1 Platelet Evaluation Normal pCO2 26 L pO2 120.0 H HCO3 16.5 L ABG pH 7.41 ABG Total CO2 17.3 L ABG O2 Saturation 99.6 H ABG O2 Content ABG Base Excess -6.5 L ABG Hemoglobin ABG Carboxyhemoglobin POC ABG HHb (Measured) ABG Methemoglobin ABG O2 Capacity ABG Potassium 3.3 L Hgb O2 Saturation Sodium 150.0 H 149 H Chloride 125.0 H 122 H Glucose 201 H Lactate 0.9 FiO2 100.0 Crit Value Called To [facility] Crit Value Called By [facility] Blood Gas Notified Time 613 Potassium 3.5 L Carbon Dioxide 20 L Anion Gap 11 BUN 22 H Creatinine 1.2 Est GFR ( Amer) > 60 Est GFR (Non-Af Amer) > 60 POC Glucose (mg/dL) Random Glucose 214 H Calcium 8.1 L Phosphorus 4.2 Magnesium 2.2 Total Bilirubin 0.5 AST 26 ALT 15 Alkaline Phosphatase 76 Troponin I Total Protein 6.1 Albumin 2.7 L Globulin 3.4 Albumin/Globulin Ratio 0.8 L Arterial Blood Potassium 3.3 L Vancomycin Trough Crossmatch BBK History Checked 11/19/18 11/19/18 11/19/18 08:00 08:00 08:02 WBC RBC Hgb Hct MCV MCH MCHC RDW Plt Count MPV Neut % (Auto) Lymph % (Auto) [place] % (Auto) Eos % (Auto) Baso % (Auto) Lymph # (Auto) [place] # (Auto) Eos # (Auto) Baso # (Auto) Absolute Neuts (auto) Neutrophils % (Manual) Lymphocytes % (Manual) Monocytes % (Manual) Myelocytes % Platelet Evaluation pCO2 30 L pO2 434.0 H HCO3 16.9 L ABG pH 7.36 ABG Total CO2 17.8 L ABG O2 Saturation 99.6 H ABG O2 Content 14.5 L ABG Base Excess -7.6 L ABG Hemoglobin 9.7 L ABG Carboxyhemoglobin 1.2 POC ABG HHb (Measured) 0.4 ABG Methemoglobin 1.1 ABG O2 Capacity 14.6 L ABG Potassium Hgb O2 Saturation 97.3 Sodium Chloride Glucose Lactate FiO2 100.0 Crit Value Called To Crit Value Called By Blood Gas Notified Time Potassium Carbon Dioxide Anion Gap BUN Creatinine Est GFR ( Amer) Est GFR (Non-Af Amer) POC Glucose (mg/dL) 235 H Random Glucose Calcium Phosphorus Magnesium Total Bilirubin AST ALT Alkaline Phosphatase Troponin I 17.40 H* D Total Protein Albumin Globulin Albumin/Globulin Ratio Arterial Blood Potassium Vancomycin Trough Crossmatch BBK History Checked 11/19/18 11/19/18 09:00 11:25 WBC RBC Hgb Hct MCV MCH MCHC RDW Plt Count MPV Neut % (Auto) Lymph % (Auto) [place] % (Auto) Eos % (Auto) Baso % (Auto) Lymph # (Auto) [place] # (Auto) Eos # (Auto) Baso # (Auto) Absolute Neuts (auto) Neutrophils % (Manual) Lymphocytes % (Manual) Monocytes % (Manual) Myelocytes % Platelet Evaluation pCO2 pO2 HCO3 ABG pH ABG Total CO2 ABG O2 Saturation ABG O2 Content ABG Base Excess ABG Hemoglobin ABG Carboxyhemoglobin POC ABG HHb (Measured) ABG Methemoglobin ABG O2 Capacity ABG Potassium Hgb O2 Saturation Sodium Chloride Glucose Lactate FiO2 Crit Value Called To Crit Value Called By Blood Gas Notified Time Potassium Carbon Dioxide Anion Gap BUN Creatinine Est GFR ( Amer) Est GFR (Non-Af Amer) POC Glucose (mg/dL) Random Glucose Calcium Phosphorus Magnesium Total Bilirubin AST ALT Alkaline Phosphatase Troponin I Total Protein Albumin Globulin Albumin/Globulin Ratio Arterial Blood Potassium Vancomycin Trough 29.7 H* Crossmatch See Detail BBK History Checked Patient has bt Radiology Impressions: Radiology Impressions Chest X-Ray 11/18/18 07:35 IMPRESSION: Abnormal position of the Dobbhoff tube which can be seen passing into the right mainstem bronchus and terminating in the right lower lobe Chest X-Ray 11/18/18 12:51 IMPRESSION: The feeding tube can be seen just beyond the GE junction Chest X-Ray 11/19/18 06:00 IMPRESSION: Cardiomegaly with probable mild pulmonary venous congestion. Shallow lung volumes accentuate bronchovascular markings crowding prominence. Other findings as above. Chest X-Ray 11/19/18 07:32 IMPRESSION: Interval endotracheal tube insertion position appears satisfactory. Interval decreased pulmonary venous congestion. Other findings as above. EKG/Cardiology Studies: Cardiology / EKG Studies 11/19/18 06:47 EKG [ELECTROCARDIOGRAM] Stat Comment: Reason For Exam: Intubated PERFORMING PHYSICIAN/PROVIDER:: Ros Rao Critical Care Progress Note - Nutrition Nutrition: Nutrition Category Date Time Status NPO Diet [DIET] Diets 11/16/18 Lunch Ordered Assessment/Plan - Assessment and Plan (Free Text) Assessment: I saw and examined the patients on rounds with resident, agree with note with following additions/exceptions: Patient is 63yo male with PMHx of DM, HTN, obesity, smoking hx of 2pk per day, dilated cardiomyopathy EF 14%, moderate pulmonary hypertension, paroxysmal atrial fibrillation, ITP normocytic anemia, with long ICU stay for resp failure 2/2 influenza few months ago, presents from home s/p Vfib cardiac arrest, s/p ROSC, s/p hypothermic protocol. Pt underwent cardiac cath with 3 stents, with IABP, which was removed yesterday Pt extubated to 2LNC, tolerated well Early this morning, patient became tachypenic, went in to VTACH with pulse, given Amio x 2, shocked 4x, Lidocaine X 1, intubated, with cessation of VTACH Cardiology following Labs, imaging, chart reviewed Cardiac arrest VFIB/VTACH Cardiomyopathy Systolic CHF, chronic CKD UTI COPD Hx of Smoking Pulm HTN PAFIB Recommend: - cont with vent support, low tidal vol ventilaiton, titrate down FiO2, Daily ABG, CXR, will need trach, LTACH - broad spectrum abx as per ID, James, Vanco - follow up cultures - BP control - ASA, Plavix, Statin, Dobutamine, Imdur - Lasox 40mg IV BID - follow up cardio - AMIO drip - ECHO repeat - FS control - GI ppx - DVT ppx, HSQ - Monitor in MICU Patient at high risk for morbidity and mortality FULL CODE Will need LTACH, trach Critical care time 45 minutes
--- NOTE | 2018-11-19 12:33 | PN ---
SUBJECTIVE: The patient was seen and examined at bedside in the CCU. Overnight he redeveloped ventricular tachycardia and receive multiple boluses of amiodarone and was cardioverted multiple times with subsequent return to normal sinus rhythm. The patient was also reintubated for impending respiratory failure. This morning he remains intubated and sedated and otherwise clinically unchanged. OBJECTIVE: VITAL SIGNS: Temperature 99.8, pulse 110, blood pressure 118/86, respiratory rate 22, oxygen saturation 100% on 40% FIO2. GENERAL: Intubated and sedated. HEENT: PERRL. No scleral icterus. NECK: No JVD. LUNGS: Coarse anterior breath sounds. CARDIOVASCULAR: Tachycardic, normal S1, S2. ABDOMEN: Normoactive bowel sounds, soft, nontender, nondistended. EXTREMITIES: Trace pedal edema bilaterally. NEUROLOGIC: Intubated and sedated. LABORATORY DATA: Morning labs are pending. ASSESSMENT: The patient is a 63-year-old man with multiple medical comorbidities who was admitted to the CCU s/p Vfib arrest and was reintubated secondary to impending respiratory failure with recurrent ventricular tachycardia. PLAN: 1. V-fib arrest. Input from Dr. Saxena noted. Continue with care as per Dr. Saxena. 2. Ventricular tachycardia. The patient is s/p cardioversion and reintubation. Continue Amiodarone drip and care as per Dr. Saxena. 3. Cardiogenic shock. Continue with ionotropic support as needed. 4. CAD s/p PCI with multiple stent placement. Continue Aspirin 81 mg p.o. daily, Plavix 75 mg p.o. daily, Lipitor 40 mg p.o. daily and Lisinopril 2.5 mg p.o. daily. 5. Dilated ischemic cardiomyopathy. Continue with care as above. 6. Acute hypoxic respiratory failure. Input from Dr. Burr noted. Continue with care as per the CCU team. 7. Acute kidney injury, resolved. 8. Paroxysmal atrial fibrillation. 9. Normocytic anemia. Input from Dr. Hardy noted. We will continue to monitor CBC and transfuse as needed. 10. Type 2 diabetes mellitus. 11. Hypertension. 12. Thrombocytopenia secondary to ITP. 13. Anxiety disorder. 14. Prophylaxis. Continue Protonix for GI prophylaxis and Heparin for DVT prophylaxis. CODE STATUS: Full code. Yassine Martinez MD Alfredo # [id number] MOE
--- NOTE | 2018-11-19 14:38 | PN ---
DATE: 11/19/2018 SUBJECTIVE: The patient went into respiratory distress and ventricular tachycardia requiring IV amiodarone as well as reintubation. Currently, the patient has mild heart failure. PHYSICAL EXAMINATION: GENERAL: The patient is intubated and sedated. NECK: Negative JVD. HEART: S1, S2. LUNGS: Decreased breath sounds. EXTREMITIES: Without change. LABORATORY DATA: Hemoglobin is 8.4. Chemistries, BUN and creatinine unchanged, potassium is 3.5. The magnesium is 2.2. Troponins are decreasing, trend down to 17. IMPRESSION: 1. Recurrent ventricular tachycardia. 2. Acute systolic congestive heart failure. 3. Status post myocardial infarction. 4. Status post cardiac arrest. 5. Status post cardiogenic shock. 6. Diabetes mellitus. 7. Status post multivessel percutaneous transluminal coronary angioplasty and stent. 8. Diabetes mellitus. PLAN: Given these findings, we will continue the IV Lasix. We will discontinue his dobutamine at this time. We will continue on his supportive care in the unit. Benjamin Saxena MD
--- NOTE | 2018-11-19 14:56 | CP.PCM.PN ---
<Lino Valladares - Last Filed: 11/19/18 14:56> Subjective - Date & Time of Evaluation Date of Evaluation: 11/19/18 Time of Evaluation: 07:15 - Subjective Subjective: Infectious disease progress note: Patient seen and examined at bedside. Patient was reintubated tachypnea. He also had Vtach with shock x 4. 12 point ROS unobtainable 2/2 intubation Objective - Vital Signs/Intake and Output Vital Signs (last 24 hours): Temp Pulse Resp BP Pulse Ox 98.2 F 51 L 24 92/50 L 99 11/19/18 12:40 11/19/18 12:40 11/19/18 11:01 11/19/18 12:00 11/19/18 12:40 Intake and Output: 11/19/18 11/19/18 06:59 18:59 Intake Total 100 Balance 100 - Medications Medications: Current Medications Amiodarone HCl (Cordarone) 400 mg PO BRKDIN [facility] Last Admin: 11/19/18 09:05 Dose: Not Given Ascorbic Acid (Vitamin C Liq) 500 mg PO BID [facility] Last Admin: 11/19/18 09:49 Dose: 500 mg Aspirin (Aspirin Chewable) 81 mg PO DAILY [facility] Last Admin: 11/19/18 09:22 Dose: 81 mg Atorvastatin Calcium (Lipitor) 40 mg PO DIN [facility] Last Admin: 11/18/18 17:30 Dose: 40 mg Clopidogrel Bisulfate (Plavix) 75 mg PO DAILY [facility] Last Admin: 11/19/18 09:22 Dose: 75 mg Collagenase (Santyl) 0 gm TOP DAILY [facility] Last Admin: 11/19/18 09:49 Dose: 1 applic Dextrose (Dextrose 50% Inj) 0 ml IV STAT PRN; Protocol PRN Reason: Hypoglycemia Protocol Enoxaparin Sodium (Lovenox) 40 mg SC DAILY [facility]; Protocol Last Admin: 11/19/18 09:21 Dose: 40 mg Furosemide (Lasix) 40 mg IVP DAILY [facility] Last Admin: 11/19/18 09:26 Dose: Not Given Hydralazine HCl (Apresoline) 25 mg PO QID [facility] Last Admin: 11/18/18 21:54 Dose: 25 mg Sodium Chloride (Sodium Chloride 0.9%) 1,000 mls @ 100 mls/hr IV .Q10H [facility] Last Admin: 11/15/18 06:00 Dose: 100 mls/hr Vancomycin HCl (Vancomycin 1gm) 1 gm in 250 mls @ 167 mls/hr IVPB Q12H [facility]; Protocol Last Admin: 11/19/18 09:11 Dose: Not Given Meropenem (Merrem Iv 1 Gm Premix) 1 gm in 50 mls @ 100 mls/hr IVPB Q8 [facility]; Protocol Stop: 11/26/18 14:01 Last Admin: 11/19/18 07:59 Dose: 100 mls/hr Propofol (Diprivan) 1,000 mg in 100 mls @ 2.502 mls/hr IV .Q24H PRN; Protocol PRN Reason: TITRATE PER MD ORDER Last Admin: 11/19/18 10:24 Dose: 30 mcg/kg/min, 15.015 mls/hr Acetaminophen (Ofirmev) 1,000 mg in 100 mls @ 400 mls/hr IVPB Q8H PRN PRN Reason: Fever Stop: 11/21/18 07:13 Last Admin: 11/19/18 06:50 Dose: 400 mls/hr Amiodarone HCl/Dextrose (Nexterone 360 Mg In D5w 200 Ml (Premix)) 360 mg in 200 mls @ 33.333 mls/hr IV .Q6H [facility]; Protocol Last Admin: 11/19/18 08:00 Dose: 33.333 mls/hr Insulin Human Regular (Humulin R Med) 0 units SC ACHS [facility]; Protocol Last Admin: 11/19/18 09:10 Dose: 3 u Levalbuterol HCl (Xopenex) 1.25 mg IH [id number] PRN PRN Reason: Shortness of Breath Last Admin: 11/17/18 23:56 Dose: 1.25 mg Lisinopril (Zestril) 2.5 mg PO DAILY [facility] Last Admin: 11/19/18 10:27 Dose: 2.5 mg Multivitamins/Minerals (Therapeutic-M Tab) 1 tab PO 0800 [facility] Last Admin: 11/19/18 09:22 Dose: 1 tab Ondansetron HCl (Zofran Inj) 4 mg IVP Q6H PRN PRN Reason: Nausea/Vomiting Last Admin: 11/15/18 05:03 Dose: 4 mg Pantoprazole Sodium (Protonix Inj) 40 mg IVP Q12 [facility] Thiamine HCl (Vitamin B1 Tab) 300 mg NG DAILY [facility] Last Admin: 11/19/18 09:22 Dose: 300 mg Vitamin A (Vitamin A & D Oint Ud Foilpak) 1 ea TOP Q4H PRN PRN Reason: Dry skin Last Admin: 11/17/18 15:10 Dose: 1 ea - Labs Labs: 11/19/18 08:00 11/19/18 08:00 PT 14.4 SECONDS (9.4-12.5) H 11/14/18 18:19 INR 1.30 11/14/18 18:19 APTT 45.9 Seconds (26.9-38.3) H 11/17/18 10:20 - Constitutional Appears: No Acute Distress - Head Exam Head Exam: ATRAUMATIC, NORMOCEPHALIC - Eye Exam Eye Exam: PERRL - ENT Exam ENT Exam: Mucous Membranes Moist - Respiratory Exam Respiratory Exam: Clear to Ausculation Bilateral. absent: Wheezes - Cardiovascular Exam Cardiovascular Exam: REGULAR RHYTHM, +S1, +S2 - GI/Abdominal Exam GI & Abdominal Exam: Soft. absent: Tenderness - Extremities Exam Extremities Exam: absent: Calf Tenderness, Pedal Edema - Skin Skin Exam: Dry, Warm Assessment and Plan - Assessment and Plan (Free Text) Assessment: Respiratory failure - ventilator dependent Status post cardiac arrest likely 2/2 cardiogenic shock vs septic shock Coag neg staph bacteremia Urinary tract infection - Proteus mirabilis V tach s/p shock x 4 COPD Hypertension Diabetes mellitus Peripheral vascular disease Cont Vanc day 3 7, for Coag neg staph bacteremia Awaiting repeat blood cx Cont Antonieta for the UTI - Proteus mirabilis day 3 of 5 Follow-up cardiology recommendations, cardiac cath - stents placed in LAD and circ, with triple vessel dx UA is positive, Follow-up urine culture - shows Proteus Procal has been neg Follow-up further ICU recs Continue to monitor for any changes Line: R femoral TLC Case and plan to be reviewed and discussed with Dr. Fernandes. <Satya Fernandes - Last Filed: 11/19/18 15:58> Objective - Vital Signs/Intake and Output Vital Signs (last 24 hours): Temp Pulse Resp BP Pulse Ox 98.2 F 51 L 24 92/50 L 99 11/19/18 12:40 11/19/18 12:40 11/19/18 11:01 11/19/18 12:00 11/19/18 12:40 Intake and Output: 11/19/18 11/19/18 06:59 18:59 Intake Total 100 Balance 100 - Medications Medications: Current Medications Amiodarone HCl (Cordarone) 400 mg PO BRKDIN [facility] Last Admin: 11/19/18 09:05 Dose: Not Given Ascorbic Acid (Vitamin C Liq) 500 mg PO BID [facility] Last Admin: 11/19/18 09:49 Dose: 500 mg Aspirin (Aspirin Chewable) 81 mg PO DAILY [facility] Last Admin: 11/19/18 09:22 Dose: 81 mg Atorvastatin Calcium (Lipitor) 40 mg PO DIN [facility] Last Admin: 11/18/18 17:30 Dose: 40 mg Clopidogrel Bisulfate (Plavix) 75 mg PO DAILY [facility] Last Admin: 11/19/18 09:22 Dose: 75 mg Collagenase (Santyl) 0 gm TOP DAILY [facility] Last Admin: 11/19/18 09:49 Dose: 1 applic Dextrose (Dextrose 50% Inj) 0 ml IV STAT PRN; Protocol PRN Reason: Hypoglycemia Protocol Enoxaparin Sodium (Lovenox) 40 mg SC DAILY [facility]; Protocol Last Admin: 11/19/18 09:21 Dose: 40 mg Furosemide (Lasix) 40 mg IVP DAILY [facility] Last Admin: 11/19/18 09:26 Dose: Not Given Hydralazine HCl (Apresoline) 25 mg PO QID [facility] Last Admin: 11/18/18 21:54 Dose: 25 mg Sodium Chloride (Sodium Chloride 0.9%) 1,000 mls @ 100 mls/hr IV .Q10H [facility] Last Admin: 11/15/18 06:00 Dose: 100 mls/hr Vancomycin HCl (Vancomycin 1gm) 1 gm in 250 mls @ 167 mls/hr IVPB Q12H [facility]; Protocol Last Admin: 11/19/18 09:11 Dose: Not Given Meropenem (Merrem Iv 1 Gm Premix) 1 gm in 50 mls @ 100 mls/hr IVPB Q8 [facility]; Protocol Stop: 11/26/18 14:01 Last Admin: 11/19/18 07:59 Dose: 100 mls/hr Propofol (Diprivan) 1,000 mg in 100 mls @ 2.502 mls/hr IV .Q24H PRN; Protocol PRN Reason: TITRATE PER MD ORDER Last Admin: 11/19/18 10:24 Dose: 30 mcg/kg/min, 15.015 mls/hr Acetaminophen (Ofirmev) 1,000 mg in 100 mls @ 400 mls/hr IVPB Q8H PRN PRN Reason: Fever Stop: 11/21/18 07:13 Last Admin: 11/19/18 06:50 Dose: 400 mls/hr Amiodarone HCl/Dextrose (Nexterone 360 Mg In D5w 200 Ml (Premix)) 360 mg in 200 mls @ 33.333 mls/hr IV .Q6H [facility]; Protocol Last Admin: 11/19/18 08:00 Dose: 33.333 mls/hr Insulin Human Regular (Humulin R Med) 0 units SC ACHS [facility]; Protocol Last Admin: 11/19/18 09:10 Dose: 3 u Levalbuterol HCl (Xopenex) 1.25 mg IH [id number] PRN PRN Reason: Shortness of Breath Last Admin: 11/17/18 23:56 Dose: 1.25 mg Lisinopril (Zestril) 2.5 mg PO DAILY [facility] Last Admin: 11/19/18 10:27 Dose: 2.5 mg Multivitamins/Minerals (Therapeutic-M Tab) 1 tab PO 0800 [facility] Last Admin: 11/19/18 09:22 Dose: 1 tab Ondansetron HCl (Zofran Inj) 4 mg IVP Q6H PRN PRN Reason: Nausea/Vomiting Last Admin: 11/15/18 05:03 Dose: 4 mg Pantoprazole Sodium (Protonix Inj) 40 mg IVP Q12 [facility] Thiamine HCl (Vitamin B1 Tab) 300 mg NG DAILY [facility] Last Admin: 11/19/18 09:22 Dose: 300 mg Vitamin A (Vitamin A & D Oint Ud Foilpak) 1 ea TOP Q4H PRN PRN Reason: Dry skin Last Admin: 11/17/18 15:10 Dose: 1 ea - Labs Labs: 11/19/18 08:00 11/19/18 08:00 PT 14.4 SECONDS (9.4-12.5) H 11/14/18 18:19 INR 1.30 11/14/18 18:19 APTT 45.9 Seconds (26.9-38.3) H 11/17/18 10:20 Attending/Attestation - Attestation I have personally seen and examined this patient.: Yes I have fully participated in the care of the patient.: Yes I have reviewed all pertinent clinical information, including history, physical exam and plan: Yes
--- NOTE | 2018-11-19 16:49 | CARD ---
APPROVED REPORT Date of service: 11/19/2018 EKG Measurement Heart [id number] <Conclusion> Normal sinus rhythm Nonspecific intraventricular block T wave abnormalities diffusely Abnormal ECG
--- NOTE | 2018-11-19 18:26 | RAD ---
Date of service: 11/19/2018 HISTORY: ngt adjustment COMPARISON: November 19, 2018. 07:50. FINDINGS: LUNGS: No significant interval change compared to the prior examination(s). PLEURA: No significant pleural effusion identified, no pneumothorax apparent. CARDIOVASCULAR: Atherosclerotic calcifications identified primarily aortic arch. No radiographic findings to suggest acute or significant cardiovascular disease. OSSEOUS STRUCTURES: No significant abnormalities. VISUALIZED UPPER ABDOMEN: Nasogastric tube on coiled, in satisfactory position. OTHER FINDINGS: Stable and satisfactory position of endotracheal tube. IMPRESSION: Satisfactory repositioning of nasogastric tube. Otherwise no interval change.
[2018-11-19 19:20] LABS: HEMOGLOBIN 9.8 g/dL (14.0-18.0)
--- NOTE | 2018-11-19 20:17 | PN ---
DATE: 11/19/2018 SUBJECTIVE: The patient is seen in the ICU. He is now again on mechanical ventilation. He had a ventricular tachycardia arrest this morning.. He was coded again. He was re-intubated.. He is currently on Diprivan, amiodarone. PHYSICAL EXAMINATION: GENERAL: Elderly male lying in bed in the ICU, on mechanical ventilation. VITAL SIGNS: Blood pressure 92/50, heart rate 51, respiratory rate 24, temperature 98.2. HEENT: Normocephalic, atraumatic, positive pallor. NECK: Supple, no JVD. LUNGS: Bilateral equal entry, bilateral equal expansion, no rales appreciated, scattered rhonchi. CARDIAC: S1, S2, regular rate and rhythm, no murmur, no rub. ABDOMEN: Obese, distended, soft, nontender, bowel sounds present. EXTREMITIES: No lower extremity edema. INTAKE AND OUTPUT: 768/1000. LABORATORY DATA: WBC 7.7, hemoglobin 8.4, hematocrit 27, platelets 124. Sodium 149, potassium 3.5, chloride 122, CO2 of 20, BUN 22, creatinine 1.2, glucose 214, calcium 8.1, phosphorus 4.2, magnesium 2.2, troponin 17.4. Albumin 2.7. Urine culture from 11/14/2018, Proteus. Blood culture from 11/17/2018, no growth. CURRENT MEDICATIONS: Hydralazine 25 q.i.d., aspirin, Diprivan at 30 mcg per kilogram per minute, Lipitor 40, Lasix on hold, Lovenox 40, Merrem 1 g every 8 hours, amiodarone at 1 mg per minute, Plavix 75, Protonix 40 IV every 12 hours, vancomycin on hold. Lisinopril 2.5 mg daily, Zofran. ASSESSMENT/PLAN: 1. Severe dilated cardiomyopathy, decreased ejection fraction of 14%, moderate, status post ventricular tachycardia arrest this morning once again. 2. Respiratory failure/mechanical ventilation. 3. Moderate pulmonary hypertension. 4. Paroxysmal atrial fibrillation. 5. Oto-nsodosw-pyxnfeatq diabetes mellitus. 6. History of hypertension, currently hypotensive. 7. Coronary artery disease, percutaneous transluminal coronary angioplasty and stents 11/16/2018; 1 drug-eluting stent in the circumflex, 2 drug-eluting stents in the left anterior descending. Unsuccessful right coronary artery stenting. 8. Healthcare-associated pneumonia? Proteus urinary tract infection. 9. Chronic kidney disease stage III. 10.. Encephalopathy, V-EEG from 11/16/2018 showing diffuse disturbance of cortical activity. 11. History of gastrointestinal bleed. PLAN: 1. Continue amiodarone drip. 2. Keep sedated on mechanical ventilation. 3.. Currently Lasix on hold. 4. Continue PPI. 5. Continue antibiotics to cover for healthcare-associated pneumonia and UTI. 6. Dose all antibiotics for creatinine clearance about 40 ml/minute. 7. Renal parameters are stable at this time. 8. Maintain euglycemia. 9. Critically ill, prognosis extremely poor. Discussed with ICU residents, discussed with ICU nursing staff, more than 35 minutes was spent in the care of this critically ill patient. Bobbi Sullivan MD
[2018-11-20] MEDS: Meropenem IV 1 gm in NS 1 GM/50 ML BAG IVPB SCH ×3 (05:36→22:10)
[2018-11-20 05:57] LABS: BASO # 0.03 K/mm3 (0.0-2.0); BASO % 0.5 % (0.0-3.0); EOS # 0.2 (0.0-0.7); EOS % 3.4 % (1.5-5.0); HEMOGLOBIN 9.5 g/dL (14.0-18.0); LYMPH # 0.3 (1.2-3.4); LYMPH % 4.1 % (22.0-35.0); MEAN CELL VOLUME 85.7 fl (80.0-105.0); MEAN CORPUSCULAR HEMOGLOBIN 26.1 pg (25.0-35.0); MEAN CORPUSCULAR HGB CONC 30.4 g/dl (31.0-37.0); MEAN PLATELET VOLUME 10.8 fl (7.0-11.0); MONO # 0.5 (0.1-0.6); MONO % 6.9 % (1.0-6.0); RBC 3.64 10^6/uL (3.5-6.1); RED CELL DISTRIBUTION WIDTH 16.5 % (11.5-14.5); WHITE BLOOD COUNT 6.5 10^3/uL (4.5-11.0)
[2018-11-20 06:38] LABS: ALB/GLOB RATIO 0.8 (1.1-1.8); ALBUMIN 2.7 g/dL (3.0-4.8); ALT/SGPT 22 U/L (7-56); AST/SGOT 30 U/L (17-59); BLOOD UREA NITROGEN 27 mg/dL (7-21); CALCIUM 8.3 mg/dL (8.4-10.5); GFR NON-AFRICAN AMERICAN > 60
[2018-11-20 06:41] LABS: ARTERIAL BLOOD GAS HCO3 18.3 mmol/L (21-28); ARTERIAL BLOOD GAS HEMOGLOBIN 14.8 g/dL (11.7-17.4); ARTERIAL BLOOD GAS O2 CAPACITY 20.5 mL/dl (16-24); ARTERIAL BLOOD GAS O2 CONTENT 20.4 ML/dl (15-23); ARTERIAL BLOOD GAS O2 SAT 99.4 % (95-98); ARTERIAL BLOOD GAS PCO2 31 mm/Hg (35-45); ARTERIAL BLOOD GAS PH 7.38 (7.35-7.45); ARTERIAL BLOOD GAS TCO2 19.3 mmol.L (22-28)
[2018-11-20] MEDS: Insulin Reg-MEDIUM-Coverage SC SCH ×3 (07:24→22:10)
[2018-11-20] MEDS: Multivitamin With Minerals Tab PO SCH (07:44)
--- NOTE | 2018-11-20 08:49 | CP.CCUPN ---
<Ismael Turner - Last Filed: 11/20/18 11:39> CCU Subjective - Physician Review Subjective (Free Text): Ismael Turner PGY-1 Critical Care Progress Note Patient seen and evaluated at bedside. No acute events reported overnight. Currently intubated and off propofol drip. Further ROS unable to be obtained due to clinical condition. CCU Objective - Vital Signs / Intake & Output Vital Signs (Last 4 hours): Vital Signs Temp Pulse Resp BP Pulse Ox 11/20/18 07:08 21 100 11/20/18 06:00 98.8 F 71 112/69 100 11/20/18 05:00 99.0 F 89 127/78 99 Intake and Output (Last 8hrs): Intake & Output 11/19/18 11/20/18 11/20/18 22:59 06:59 14:59 Intake Total 500 100 Output Total 1650 500 Balance -1150 -400 Weight 81.647 kg Intake: IV 100 100 Right Femoral 100 Oral 400 0 Output: Urine 900 500 Urethral (Ash) 900 500 Stool 750 Other: # Bowel Movements 1 - Physical Exam Head: Positive for: Atraumatic, Normocephalic Pupils: Positive for: PERRL, Other (2mm, reactive) Conjunctiva: Positive for: Normal Mouth: Positive for: Moist Mucous Membranes, Other (Dobhoff in place in R nares) Pharnyx: Positive for: Other (ETT in place) Neck: Positive for: Trachea Midline. Negative for: JVD, Lymphadenopathy Respiratory/Chest: Positive for: Clear to Auscultation, Good Air Exchange, Respiratory Distress. Negative for: Accessory Muscle Use Cardiovascular: Positive for: Normal S1, S2. Negative for: Murmurs Abdomen: Positive for: Normal Bowel Sounds. Negative for: Tenderness Back: Positive for: Normal Inspection Upper Extremity: Positive for: Normal Inspection, Other (Midline in place in RUE). Negative for: Cyanosis, Edema Lower Extremity: Positive for: Normal Inspection. Negative for: Edema Neurological: Positive for: Other (minimal response to painful stimuli) Skin: Positive for: Warm, Dry, Pale. Negative for: Rashes Psychiatric: Negative for: Alert - Medications Active Medications: Active Medications Generic Name Dose Route Start Last Admin Trade Name Freq PRN Reason Stop Dose Admin Amiodarone HCl 400 mg 11/16/18 17:00 11/19/18 09:05 Cordarone PO Not Given BRKDIN JHON Ascorbic Acid 500 mg 11/18/18 18:00 11/19/18 17:58 Vitamin C Liq PO 500 mg BID JHON Administration Aspirin 81 mg 11/15/18 16:45 11/19/18 09:22 Aspirin Chewable PO 81 mg DAILY JHON Administration Atorvastatin Calcium 40 mg 11/16/18 14:50 11/19/18 16:36 Lipitor PO 40 mg DIN JHON Administration Clopidogrel Bisulfate 75 mg 11/17/18 10:00 11/19/18 09:22 Plavix PO 75 mg DAILY JHON Administration Collagenase 0 gm 11/18/18 10:00 11/19/18 09:49 Santyl TOP 1 applic DAILY JHON Administration Dextrose 0 ml 11/15/18 16:18 Dextrose 50% Inj IV STAT PRN Hypoglycemia Protocol Protocol Enoxaparin Sodium 40 mg 11/18/18 10:00 11/19/18 09:21 Lovenox SC 40 mg DAILY JHON Administration Protocol Furosemide 40 mg 11/19/18 10:00 11/19/18 09:26 Lasix IVP Not Given DAILY JHON Hydralazine HCl 25 mg 11/15/18 10:00 11/18/18 21:54 Apresoline PO 25 mg QID JHON Administration Sodium Chloride 1,000 mls @ 100 mls/hr 11/14/18 19:00 11/15/18 06:00 Sodium Chloride 0.9% IV 100 mls/hr .Q10H JHON Administration Vancomycin HCl 1 gm in 250 mls @ 167 mls/hr 11/17/18 09:00 11/19/18 09:11 Vancomycin 1gm IVPB Not Given Q12H JHON Protocol Meropenem 1 gm in 50 mls @ 100 mls/hr 11/17/18 14:00 11/20/18 05:36 Merrem Iv 1 Gm Premix IVPB 11/26/18 14:01 100 mls/hr Q8 JHON Administration Protocol Propofol 1,000 mg in 100 mls @ 2.502 mls/hr 11/19/18 06:52 11/19/18 16:32 Diprivan IV Infused .Q24H PRN Titration TITRATE PER MD ORDER Protocol 5 MCG/KG/MIN Acetaminophen 1,000 mg in 100 mls @ 400 mls/hr 11/19/18 07:12 11/19/18 06:50 Ofirmev IVPB 11/21/18 07:13 400 mls/hr Q8H PRN Administration Fever Amiodarone HCl/Dextrose 360 mg in 200 mls @ 33.333 mls/hr 11/19/18 07:15 11/19/18 16:30 Nexterone 360 Mg In D5w 200 Ml (Premix) IV Not Given .Q6H JHON Protocol 1 MG/MIN Potassium Chloride 10 meq in 100 mls @ 100 mls/hr 11/20/18 07:45 11/20/18 07:43 Potassium Chloride 10 Meq/100 Ml IVPB 11/20/18 10:44 100 mls/hr Q2H JHON Administration Insulin Human Regular 0 units 11/16/18 22:00 11/20/18 07:24 Humulin R Med SC Not Given ACHS JHON Protocol Levalbuterol HCl 1.25 mg 11/17/18 23:43 11/17/18 23:56 Xopenex IH 1.25 mg [id number] PRN Administration Shortness of Breath Lisinopril 2.5 mg 11/18/18 10:00 11/19/18 10:27 Zestril PO 2.5 mg DAILY JHNO Administration Multivitamins/Minerals 1 tab 11/19/18 08:00 11/20/18 07:44 Therapeutic-M Tab PO 1 tab 0800 JHON Administration Ondansetron HCl 4 mg 11/15/18 04:15 11/15/18 05:03 Zofran Inj IVP 4 mg Q6H PRN Administration Nausea/Vomiting Pantoprazole Sodium 40 mg 11/19/18 22:00 11/19/18 21:09 Protonix Inj IVP 40 mg Q12 JHON Administration Thiamine HCl 300 mg 11/16/18 17:00 11/19/18 09:22 Vitamin B1 Tab NG 300 mg DAILY JHON Administration Vitamin A 1 ea 11/17/18 14:51 11/17/18 15:10 Vitamin A & D Oint Ud Foilpak TOP 1 ea Q4H PRN Administration Dry skin - Patient Studies Lab Studies: Microbiology Studies 11/17/18 15:30 Blood Culture - Preliminary Blood NO GROWTH AFTER 48 HOURS 11/17/18 15:00 Blood Culture - Preliminary Blood NO GROWTH AFTER 48 HOURS 11/17/18 08:38 Gram Stain - Final Sputum Induced Sputum Culture - Final NORMAL ORAL HATTIE 11/14/18 18:19 Blood Culture - Final Blood Coagulase Neg Staphylococcus Gram Stain - Final 11/14/18 18:49 S.aureus & Coag-Neg Staph PNA FISH - Final Blood Blood Culture - Final Coagulase Neg Staphylococcus Gram Stain - Final Lab Studies 11/20/18 11/20/18 11/20/18 Range/Units 06:15 05:30 05:30 WBC (4.5-11.0) 10^3/uL RBC (3.5-6.1) 10^6/uL Hgb (14.0-18.0) g/dL Hct (42.0-52.0) % MCV (80.0-105.0) fl MCH (25.0-35.0) pg MCHC (31.0-37.0) g/dl RDW (11.5-14.5) % Plt Count (120.0-450.0) 10^3/uL MPV (7.0-11.0) fl Neut % (Auto) (50.0-68.0) % Lymph % (Auto) (22.0-35.0) % [place] % (Auto) (1.0-6.0) % Eos % (Auto) (1.5-5.0) % Baso % (Auto) (0.0-3.0) % Lymph # (Auto) (1.2-3.4) [place] # (Auto) (0.1-0.6) Eos # (Auto) (0.0-0.7) Baso # (Auto) (0.0-2.0) K/mm3 Absolute Neuts (auto) (1.4-6.5) Neutrophils % (Manual) (50.0-70.0) % Lymphocytes % (Manual) (22.0-35.0) % Monocytes % (Manual) (1.0-6.0) % Myelocytes % % Platelet Evaluation (NORMAL) pCO2 31 L (35-45) mm/Hg pO2 156.0 H (80-100) mm/Hg HCO3 18.3 L (21-28) mmol/L ABG pH 7.38 (7.35-7.45) ABG Total CO2 19.3 L (22-28) mmol.L ABG O2 Saturation 99.4 H (95-98) % ABG O2 Content 20.4 (15-23) ML/dl ABG Base Excess -5.6 L (-2.0-3.0) mmol/L ABG Hemoglobin 14.8 (11.7-17.4) g/dL ABG Carboxyhemoglobin 1.4 (0.5-1.5) % POC ABG HHb (Measured) 0.6 (0-5) % ABG Methemoglobin 1.3 (0.0-3.0) % ABG O2 Capacity 20.5 (16-24) mL/dl Hgb O2 Saturation 96.7 (95.0-98.0) % FiO2 40.0 % Sodium 152 H (132-148) mmol/L Potassium 3.4 L (3.6-5.0) mmol/L Chloride 125 H (98-107) mmol/L Carbon Dioxide 20 L (21-33) mmol/L Anion Gap 11 (10-20) BUN 27 H (7-21) mg/dL Creatinine 1.2 (0.8-1.5) mg/dl Est GFR ( Amer) > 60 Est GFR (Non-Af Amer) > 60 POC Glucose (mg/dL) (65-110) mg/dL Random Glucose 148 H (70-110) mg/dL Calcium 8.3 L (8.4-10.5) mg/dL Phosphorus 3.7 (2.5-4.5) mg/dL Magnesium 2.0 (1.7-2.2) mg/dL Total Bilirubin 0.4 (0.2-1.3) mg/dL AST 30 (17-59) U/L ALT 22 (7-56) U/L Alkaline Phosphatase 78 (38-126) U/L Troponin I ng/mL Total Protein 6.1 (5.8-8.3) g/dL Albumin 2.7 L (3.0-4.8) g/dL Globulin 3.4 gm/dL Albumin/Globulin Ratio 0.8 L (1.1-1.8) Vancomycin Trough 22.8 H* (5.0-10.0) ug/mL Blood Type Antibody Screen Crossmatch BBK History Checked 11/20/18 11/19/18 11/19/18 Range/Units 05:30 21:16 19:16 WBC 6.5 (4.5-11.0) 10^3/uL RBC 3.64 (3.5-6.1) 10^6/uL Hgb 9.5 L 9.8 L (14.0-18.0) g/dL Hct 31.2 L 31.6 L (42.0-52.0) % MCV 85.7 (80.0-105.0) fl MCH 26.1 (25.0-35.0) pg MCHC 30.4 L (31.0-37.0) g/dl RDW 16.5 H (11.5-14.5) % Plt Count 128 (120.0-450.0) 10^3/uL MPV 10.8 (7.0-11.0) fl Neut % (Auto) 85.1 H (50.0-68.0) % Lymph % (Auto) 4.1 L (22.0-35.0) % [place] % (Auto) 6.9 H (1.0-6.0) % Eos % (Auto) 3.4 (1.5-5.0) % Baso % (Auto) 0.5 (0.0-3.0) % Lymph # (Auto) 0.3 L (1.2-3.4) [place] # (Auto) 0.5 (0.1-0.6) Eos # (Auto) 0.2 (0.0-0.7) Baso # (Auto) 0.03 (0.0-2.0) K/mm3 Absolute Neuts (auto) 5.55 (1.4-6.5) Neutrophils % (Manual) (50.0-70.0) % Lymphocytes % (Manual) (22.0-35.0) % Monocytes % (Manual) (1.0-6.0) % Myelocytes % % Platelet Evaluation (NORMAL) pCO2 (35-45) mm/Hg pO2 (80-100) mm/Hg HCO3 (21-28) mmol/L ABG pH (7.35-7.45) ABG Total CO2 (22-28) mmol.L ABG O2 Saturation (95-98) % ABG O2 Content (15-23) ML/dl ABG Base Excess (-2.0-3.0) mmol/L ABG Hemoglobin (11.7-17.4) g/dL ABG Carboxyhemoglobin (0.5-1.5) % POC ABG HHb (Measured) (0-5) % ABG Methemoglobin (0.0-3.0) % ABG O2 Capacity (16-24) mL/dl Hgb O2 Saturation (95.0-98.0) % FiO2 % Sodium (132-148) mmol/L Potassium (3.6-5.0) mmol/L Chloride (98-107) mmol/L Carbon Dioxide (21-33) mmol/L Anion Gap (10-20) BUN (7-21) mg/dL Creatinine (0.8-1.5) mg/dl Est GFR ( Amer) Est GFR (Non-Af Amer) POC Glucose (mg/dL) 153 H (65-110) mg/dL Random Glucose (70-110) mg/dL Calcium (8.4-10.5) mg/dL Phosphorus (2.5-4.5) mg/dL Magnesium (1.7-2.2) mg/dL Total Bilirubin (0.2-1.3) mg/dL AST (17-59) U/L ALT (7-56) U/L Alkaline Phosphatase (38-126) U/L Troponin I ng/mL Total Protein (5.8-8.3) g/dL Albumin (3.0-4.8) g/dL Globulin gm/dL Albumin/Globulin Ratio (1.1-1.8) Vancomycin Trough (5.0-10.0) ug/mL Blood Type Antibody Screen Crossmatch BBK History Checked 11/19/18 11/19/18 11/19/18 Range/Units 15:58 12:07 11:25 WBC (4.5-11.0) 10^3/uL RBC (3.5-6.1) 10^6/uL Hgb (14.0-18.0) g/dL Hct (42.0-52.0) % MCV (80.0-105.0) fl MCH (25.0-35.0) pg MCHC (31.0-37.0) g/dl RDW (11.5-14.5) % Plt Count (120.0-450.0) 10^3/uL MPV (7.0-11.0) fl Neut % (Auto) (50.0-68.0) % Lymph % (Auto) (22.0-35.0) % [place] % (Auto) (1.0-6.0) % Eos % (Auto) (1.5-5.0) % Baso % (Auto) (0.0-3.0) % Lymph # (Auto) (1.2-3.4) [place] # (Auto) (0.1-0.6) Eos # (Auto) (0.0-0.7) Baso # (Auto) (0.0-2.0) K/mm3 Absolute Neuts (auto) (1.4-6.5) Neutrophils % (Manual) (50.0-70.0) % Lymphocytes % (Manual) (22.0-35.0) % Monocytes % (Manual) (1.0-6.0) % Myelocytes % % Platelet Evaluation (NORMAL) pCO2 (35-45) mm/Hg pO2 (80-100) mm/Hg HCO3 (21-28) mmol/L ABG pH (7.35-7.45) ABG Total CO2 (22-28) mmol.L ABG O2 Saturation (95-98) % ABG O2 Content (15-23) ML/dl ABG Base Excess (-2.0-3.0) mmol/L ABG Hemoglobin (11.7-17.4) g/dL ABG Carboxyhemoglobin (0.5-1.5) % POC ABG HHb (Measured) (0-5) % ABG Methemoglobin (0.0-3.0) % ABG O2 Capacity (16-24) mL/dl Hgb O2 Saturation (95.0-98.0) % FiO2 % Sodium (132-148) mmol/L Potassium (3.6-5.0) mmol/L Chloride (98-107) mmol/L Carbon Dioxide (21-33) mmol/L Anion Gap (10-20) BUN (7-21) mg/dL Creatinine (0.8-1.5) mg/dl Est GFR ( Amer) Est GFR (Non-Af Amer) POC Glucose (mg/dL) 156 H 231 H (65-110) mg/dL Random Glucose (70-110) mg/dL Calcium (8.4-10.5) mg/dL Phosphorus (2.5-4.5) mg/dL Magnesium (1.7-2.2) mg/dL Total Bilirubin (0.2-1.3) mg/dL AST (17-59) U/L ALT (7-56) U/L Alkaline Phosphatase (38-126) U/L Troponin I ng/mL Total Protein (5.8-8.3) g/dL Albumin (3.0-4.8) g/dL Globulin gm/dL Albumin/Globulin Ratio (1.1-1.8) Vancomycin Trough (5.0-10.0) ug/mL Blood Type O POSITIVE Antibody Screen Negative Crossmatch See Detail BBK History Checked Patient has bt 11/19/18 11/19/18 11/19/18 Range/Units 09:00 08:00 08:00 WBC (4.5-11.0) 10^3/uL RBC (3.5-6.1) 10^6/uL Hgb (14.0-18.0) g/dL Hct (42.0-52.0) % MCV (80.0-105.0) fl MCH (25.0-35.0) pg MCHC (31.0-37.0) g/dl RDW (11.5-14.5) % Plt Count (120.0-450.0) 10^3/uL MPV (7.0-11.0) fl Neut % (Auto) (50.0-68.0) % Lymph % (Auto) (22.0-35.0) % [place] % (Auto) (1.0-6.0) % Eos % (Auto) (1.5-5.0) % Baso % (Auto) (0.0-3.0) % Lymph # (Auto) (1.2-3.4) [place] # (Auto) (0.1-0.6) Eos # (Auto) (0.0-0.7) Baso # (Auto) (0.0-2.0) K/mm3 Absolute Neuts (auto) (1.4-6.5) Neutrophils % (Manual) (50.0-70.0) % Lymphocytes % (Manual) (22.0-35.0) % Monocytes % (Manual) (1.0-6.0) % Myelocytes % % Platelet Evaluation (NORMAL) pCO2 (35-45) mm/Hg pO2 (80-100) mm/Hg HCO3 (21-28) mmol/L ABG pH (7.35-7.45) ABG Total CO2 (22-28) mmol.L ABG O2 Saturation (95-98) % ABG O2 Content (15-23) ML/dl ABG Base Excess (-2.0-3.0) mmol/L ABG Hemoglobin (11.7-17.4) g/dL ABG Carboxyhemoglobin (0.5-1.5) % POC ABG HHb (Measured) (0-5) % ABG Methemoglobin (0.0-3.0) % ABG O2 Capacity (16-24) mL/dl Hgb O2 Saturation (95.0-98.0) % FiO2 % Sodium 149 H (132-148) mmol/L Potassium 3.5 L (3.6-5.0) mmol/L Chloride 122 H (98-107) mmol/L Carbon Dioxide 20 L (21-33) mmol/L Anion Gap 11 (10-20) BUN 22 H (7-21) mg/dL Creatinine 1.2 (0.8-1.5) mg/dl Est GFR ( Amer) > 60 Est GFR (Non-Af Amer) > 60 POC Glucose (mg/dL) (65-110) mg/dL Random Glucose 214 H (70-110) mg/dL Calcium 8.1 L (8.4-10.5) mg/dL Phosphorus 4.2 (2.5-4.5) mg/dL Magnesium 2.2 (1.7-2.2) mg/dL Total Bilirubin 0.5 (0.2-1.3) mg/dL AST 26 (17-59) U/L ALT 15 (7-56) U/L Alkaline Phosphatase 76 (38-126) U/L Troponin I 17.40 H* D ng/mL Total Protein 6.1 (5.8-8.3) g/dL Albumin 2.7 L (3.0-4.8) g/dL Globulin 3.4 gm/dL Albumin/Globulin Ratio 0.8 L (1.1-1.8) Vancomycin Trough 29.7 H* (5.0-10.0) ug/mL Blood Type Antibody Screen Crossmatch BBK History Checked 11/19/18 Range/Units 08:00 WBC (4.5-11.0) 10^3/uL RBC (3.5-6.1) 10^6/uL Hgb (14.0-18.0) g/dL Hct (42.0-52.0) % MCV (80.0-105.0) fl MCH (25.0-35.0) pg MCHC (31.0-37.0) g/dl RDW (11.5-14.5) % Plt Count (120.0-450.0) 10^3/uL MPV (7.0-11.0) fl Neut % (Auto) (50.0-68.0) % Lymph % (Auto) (22.0-35.0) % [place] % (Auto) (1.0-6.0) % Eos % (Auto) (1.5-5.0) % Baso % (Auto) (0.0-3.0) % Lymph # (Auto) (1.2-3.4) [place] # (Auto) (0.1-0.6) Eos # (Auto) (0.0-0.7) Baso # (Auto) (0.0-2.0) K/mm3 Absolute Neuts (auto) (1.4-6.5) Neutrophils % (Manual) 96 H (50.0-70.0) % Lymphocytes % (Manual) 1 L (22.0-35.0) % Monocytes % (Manual) 2 (1.0-6.0) % Myelocytes % 1 % Platelet Evaluation Normal (NORMAL) pCO2 (35-45) mm/Hg pO2 (80-100) mm/Hg HCO3 (21-28) mmol/L ABG pH (7.35-7.45) ABG Total CO2 (22-28) mmol.L ABG O2 Saturation (95-98) % ABG O2 Content (15-23) ML/dl ABG Base Excess (-2.0-3.0) mmol/L ABG Hemoglobin (11.7-17.4) g/dL ABG Carboxyhemoglobin (0.5-1.5) % POC ABG HHb (Measured) (0-5) % ABG Methemoglobin (0.0-3.0) % ABG O2 Capacity (16-24) mL/dl Hgb O2 Saturation (95.0-98.0) % FiO2 % Sodium (132-148) mmol/L Potassium (3.6-5.0) mmol/L Chloride (98-107) mmol/L Carbon Dioxide (21-33) mmol/L Anion Gap (10-20) BUN (7-21) mg/dL Creatinine (0.8-1.5) mg/dl Est GFR ( Amer) Est GFR (Non-Af Amer) POC Glucose (mg/dL) (65-110) mg/dL Random Glucose (70-110) mg/dL Calcium (8.4-10.5) mg/dL Phosphorus (2.5-4.5) mg/dL Magnesium (1.7-2.2) mg/dL Total Bilirubin (0.2-1.3) mg/dL AST (17-59) U/L ALT (7-56) U/L Alkaline Phosphatase (38-126) U/L Troponin I ng/mL Total Protein (5.8-8.3) g/dL Albumin (3.0-4.8) g/dL Globulin gm/dL Albumin/Globulin Ratio (1.1-1.8) Vancomycin Trough (5.0-10.0) ug/mL Blood Type Antibody Screen Crossmatch BBK History Checked Laboratory Results - last 24 hr 11/19/18 11/19/18 11/19/18 08:00 08:00 08:00 WBC RBC Hgb Hct MCV MCH MCHC RDW Plt Count MPV Neut % (Auto) Lymph % (Auto) [place] % (Auto) Eos % (Auto) Baso % (Auto) Lymph # (Auto) [place] # (Auto) Eos # (Auto) Baso # (Auto) Absolute Neuts (auto) Neutrophils % (Manual) 96 H Lymphocytes % (Manual) 1 L Monocytes % (Manual) 2 Myelocytes % 1 Platelet Evaluation Normal pCO2 pO2 HCO3 ABG pH ABG Total CO2 ABG O2 Saturation ABG O2 Content ABG Base Excess ABG Hemoglobin ABG Carboxyhemoglobin POC ABG HHb (Measured) ABG Methemoglobin ABG O2 Capacity Hgb O2 Saturation FiO2 Sodium 149 H Potassium 3.5 L Chloride 122 H Carbon Dioxide 20 L Anion Gap 11 BUN 22 H Creatinine 1.2 Est GFR ( Amer) > 60 Est GFR (Non-Af Amer) > 60 POC Glucose (mg/dL) Random Glucose 214 H Calcium 8.1 L Phosphorus 4.2 Magnesium 2.2 Total Bilirubin 0.5 AST 26 ALT 15 Alkaline Phosphatase 76 Troponin I 17.40 H* D Total Protein 6.1 Albumin 2.7 L Globulin 3.4 Albumin/Globulin Ratio 0.8 L Vancomycin Trough Blood Type Antibody Screen Crossmatch BBK History Checked 11/19/18 11/19/18 11/19/18 09:00 11:25 12:07 WBC RBC Hgb Hct MCV MCH MCHC RDW Plt Count MPV Neut % (Auto) Lymph % (Auto) [place] % (Auto) Eos % (Auto) Baso % (Auto) Lymph # (Auto) [place] # (Auto) Eos # (Auto) Baso # (Auto) Absolute Neuts (auto) Neutrophils % (Manual) Lymphocytes % (Manual) Monocytes % (Manual) Myelocytes % Platelet Evaluation pCO2 pO2 HCO3 ABG pH ABG Total CO2 ABG O2 Saturation ABG O2 Content ABG Base Excess ABG Hemoglobin ABG Carboxyhemoglobin POC ABG HHb (Measured) ABG Methemoglobin ABG O2 Capacity Hgb O2 Saturation FiO2 Sodium Potassium Chloride Carbon Dioxide Anion Gap BUN Creatinine Est GFR ( Amer) Est GFR (Non-Af Amer) POC Glucose (mg/dL) 231 H Random Glucose Calcium Phosphorus Magnesium Total Bilirubin AST ALT Alkaline Phosphatase Troponin I Total Protein Albumin Globulin Albumin/Globulin Ratio Vancomycin Trough 29.7 H* Blood Type O POSITIVE Antibody Screen Negative Crossmatch See Detail BBK History Checked Patient has bt 11/19/18 11/19/18 11/19/18 15:58 19:16 21:16 WBC RBC Hgb 9.8 L Hct 31.6 L MCV MCH MCHC RDW Plt Count MPV Neut % (Auto) Lymph % (Auto) [place] % (Auto) Eos % (Auto) Baso % (Auto) Lymph # (Auto) [place] # (Auto) Eos # (Auto) Baso # (Auto) Absolute Neuts (auto) Neutrophils % (Manual) Lymphocytes % (Manual) Monocytes % (Manual) Myelocytes % Platelet Evaluation pCO2 pO2 HCO3 ABG pH ABG Total CO2 ABG O2 Saturation ABG O2 Content ABG Base Excess ABG Hemoglobin ABG Carboxyhemoglobin POC ABG HHb (Measured) ABG Methemoglobin ABG O2 Capacity Hgb O2 Saturation FiO2 Sodium Potassium Chloride Carbon Dioxide Anion Gap BUN Creatinine Est GFR ( Amer) Est GFR (Non-Af Amer) POC Glucose (mg/dL) 156 H 153 H Random Glucose Calcium Phosphorus Magnesium Total Bilirubin AST ALT Alkaline Phosphatase Troponin I Total Protein Albumin Globulin Albumin/Globulin Ratio Vancomycin Trough Blood Type Antibody Screen Crossmatch BBK History Checked 11/20/18 11/20/18 11/20/18 05:30 05:30 05:30 WBC 6.5 RBC 3.64 Hgb 9.5 L Hct 31.2 L MCV 85.7 MCH 26.1 MCHC 30.4 L RDW 16.5 H Plt Count 128 MPV 10.8 Neut % (Auto) 85.1 H Lymph % (Auto) 4.1 L [place] % (Auto) 6.9 H Eos % (Auto) 3.4 Baso % (Auto) 0.5 Lymph # (Auto) 0.3 L [place] # (Auto) 0.5 Eos # (Auto) 0.2 Baso # (Auto) 0.03 Absolute Neuts (auto) 5.55 Neutrophils % (Manual) Lymphocytes % (Manual) Monocytes % (Manual) Myelocytes % Platelet Evaluation pCO2 pO2 HCO3 ABG pH ABG Total CO2 ABG O2 Saturation ABG O2 Content ABG Base Excess ABG Hemoglobin ABG Carboxyhemoglobin POC ABG HHb (Measured) ABG Methemoglobin ABG O2 Capacity Hgb O2 Saturation FiO2 Sodium 152 H Potassium 3.4 L Chloride 125 H Carbon Dioxide 20 L Anion Gap 11 BUN 27 H Creatinine 1.2 Est GFR ( Amer) > 60 Est GFR (Non-Af Amer) > 60 POC Glucose (mg/dL) Random Glucose 148 H Calcium 8.3 L Phosphorus 3.7 Magnesium 2.0 Total Bilirubin 0.4 AST 30 ALT 22 Alkaline Phosphatase 78 Troponin I Total Protein 6.1 Albumin 2.7 L Globulin 3.4 Albumin/Globulin Ratio 0.8 L Vancomycin Trough 22.8 H* Blood Type Antibody Screen Crossmatch BBK History Checked 11/20/18 06:15 WBC RBC Hgb Hct MCV MCH MCHC RDW Plt Count MPV Neut % (Auto) Lymph % (Auto) [place] % (Auto) Eos % (Auto) Baso % (Auto) Lymph # (Auto) [place] # (Auto) Eos # (Auto) Baso # (Auto) Absolute Neuts (auto) Neutrophils % (Manual) Lymphocytes % (Manual) Monocytes % (Manual) Myelocytes % Platelet Evaluation pCO2 31 L pO2 156.0 H HCO3 18.3 L ABG pH 7.38 ABG Total CO2 19.3 L ABG O2 Saturation 99.4 H ABG O2 Content 20.4 ABG Base Excess -5.6 L ABG Hemoglobin 14.8 ABG Carboxyhemoglobin 1.4 POC ABG HHb (Measured) 0.6 ABG Methemoglobin 1.3 ABG O2 Capacity 20.5 Hgb O2 Saturation 96.7 FiO2 40.0 Sodium Potassium Chloride Carbon Dioxide Anion Gap BUN Creatinine Est GFR ( Amer) Est GFR (Non-Af Amer) POC Glucose (mg/dL) Random Glucose Calcium Phosphorus Magnesium Total Bilirubin AST ALT Alkaline Phosphatase Troponin I Total Protein Albumin Globulin Albumin/Globulin Ratio Vancomycin Trough Blood Type Antibody Screen Crossmatch BBK History Checked Radiology Impressions: Radiology Impressions Chest X-Ray 11/19/18 06:00 IMPRESSION: Cardiomegaly with probable mild pulmonary venous congestion. Shallow lung volumes accentuate bronchovascular markings crowding prominence. Other findings as above. Chest X-Ray 11/19/18 07:32 IMPRESSION: Interval endotracheal tube insertion position appears satisfactory. Interval decreased pulmonary venous congestion. Other findings as above. Chest X-Ray 11/19/18 17:00 IMPRESSION: Satisfactory repositioning of nasogastric tube. Otherwise no interval change. Fingerstick Blood Sugar Results: 145 Review of Systems - Review of Systems Systems not reviewed;Unavailable: Intubated Critical Care Progress Note - Nutrition Nutrition: Nutrition Category Date Time Status NPO Diet [DIET] Diets 11/16/18 Lunch Ordered Assessment/Plan - Assessment and Plan (Free Text) Assessment: 63 year old male with a PMHx of severely dilated cardiomyopathy EF 14%, moderate pulmonary hypertension, paroxysmal atrial fibrillation, ITP normocytic anemia, DM II, hypertension, pseudogout, anxiety, PVD who was brought in by EMS as he was found pulseless in ventricular fibrillation. Patient was subsequently in respiratory failure s/p v-tach episodes on 11/19/18, at which point he was intubated. Cardiovascular -Hgb stable s/p 1 unit PRBC transfused 11/19/18 -Maintain MAP>65, afterload reduction -Lasix and Hydralazine on hold -Continue ASA/Plavix, ROBERTO, Lasix 40 IVP -Continue Amiodarone PO, drip discontinued -C/w imdur 30mg po qd, lipitor 40mg po din, metoprolol tartrate 25mg po bid (all administered via ngt) -S/P cardiac arrest; troponin 25.80 -> 25.40 -> 24 >17 -BNP 22,500 -11/16/18 echo shows EF 20% -Cardiology consulted - Dr. Saxena. 11.16.18 Cardiac cath 1 FRANCO in circumflex, 2 FRANCO in LAD. IABP removed 11/17. Further recs appreciated. -S/p midline placement in RUE Gastrintestinal -s/p Dobhoff placement -Tube feeds -Continue w Pepcid IV BID -Gastrotenterology consulted, Dr Hardy Infectious Disease -r/o HCAP versus urine as source -UA shows large Leukocyte esterase, Urine WBC Tntc, negative nitrate -Urine cx growing Proteus -cxr 11/15/18: * no active pulmonary dz, moderate cardiomegaly and pulmonary venous congestion -patient currently on Merrem q8 -Vanc trough remains elevated 22.8, Vancomycin to be continued -procal 0.11 -F/u sputum cx -MRSA negative -Blood cx growing coag neg staph, likely contaminant -ID consulted, Dr Fernandes Neurologic -Continue to monitor in setting of encephalopathy -11/16/18 vEEG: severe, non specific diffuse disturbance of cortical activity. This is in keeping with a diffuse hernandez matter dysfunction. No seizures or status presently. -Neurology (Dr. Mcdaniels) consulted for AMS- no need for further antiepileptics. Thiamine 300 mg daily -CT head 11/15/18 * CT head 11/14: no acute intracrainal abnormality, chronic lacunar infarctions in right dennison radiata and basal ganglia, mild chronic microangiopathic changes and mild age related global parenchymal volume loss Pulmonary -Maintain O2 sat >95% -NC PRN -HOB greater than 30 degrees -11/20/18 ABG shows improved A-a gradient and acidosis -11/20/18 CXR confirms ETT and proper but coiled NGT placement -Pulmonology consulted, Dr Burr- recs appreciated Renal/ -Maintain euvolemia -UTI, Proteus on culture -Monitor I&O -Replete electrolytes as needed Endocrine -Maintain euglycemia -mISS and accuchecks DVT ppx: Lovenox GI Ppx: Pepcid IV BID Code Status: DNR, signed by spouse An. Dispo: Will likely require trach and a LTAC Facility Patient seen, case reviewed and plan approved by Dr. Ab Mitchell. Ismael Turner, PGY-1 <Junior Mitchell - Last Filed: 11/21/18 14:42> CCU Objective - Vital Signs / Intake & Output Vital Signs (Last 4 hours): Vital Signs Temp Pulse BP Pulse Ox 11/21/18 14:00 99.5 F 94 H 137/84 98 11/21/18 13:00 99.3 F 68 133/67 97 11/21/18 12:00 99.3 F 69 134/71 97 11/21/18 11:00 99.3 F 68 131/77 99 Intake and Output (Last 8hrs): Intake & Output 11/20/18 11/21/18 11/21/18 22:59 06:59 14:59 Intake Total 410 100 Output Total 800 1200 Balance -390 -1100 Weight 79.605 kg Intake: IV 100 Right Hand 100 Oral 410 Output: Urine 600 1200 Urethral (Ash) 600 1200 Stool 200 - Medications Active Medications: Active Medications Generic Name Dose Route Start Last Admin Trade Name Freq PRN Reason Stop Dose Admin Amino Acid Protein 15 gm 11/20/18 18:00 11/21/18 12:27 Prostat 15 G Packet GT 15 gm BID [facility] Administration Amiodarone HCl 400 mg 11/16/18 17:00 11/21/18 09:08 Cordarone PO 400 mg BRKDIN [facility] Administration Ascorbic Acid 500 mg 11/18/18 18:00 11/21/18 11:17 Vitamin C Liq PO 500 mg BID [facility] Administration Aspirin 81 mg 11/15/18 16:45 11/21/18 09:10 Aspirin Chewable PO 81 mg DAILY [facility] Administration Atorvastatin Calcium 40 mg 11/16/18 14:50 11/20/18 18:56 Lipitor PO 40 mg DIN [facility] Administration Clopidogrel Bisulfate 75 mg 11/17/18 10:00 11/21/18 09:09 Plavix PO 75 mg DAILY [facility] Administration Collagenase 0 gm 11/18/18 10:00 11/21/18 11:22 Santyl TOP 2 applic DAILY [facility] Administration Dextrose 0 ml 11/15/18 16:18 Dextrose 50% Inj IV STAT PRN Hypoglycemia Protocol Protocol Enoxaparin Sodium 40 mg 11/18/18 10:00 11/21/18 09:11 Lovenox SC 40 mg DAILY [facility] Administration Protocol Furosemide 40 mg 11/19/18 10:00 11/19/18 09:26 Lasix IVP Not Given DAILY [facility] Hydralazine HCl 25 mg 11/15/18 10:00 11/18/18 21:54 Apresoline PO 25 mg QID [facility] Administration Sodium Chloride 1,000 mls @ 100 mls/hr 11/14/18 19:00 11/15/18 06:00 Sodium Chloride 0.9% IV 100 mls/hr .Q10H [facility] Administration Meropenem 1 gm in 50 mls @ 100 mls/hr 11/17/18 14:00 11/21/18 13:46 Merrem Iv 1 Gm Premix IVPB 11/26/18 14:01 100 mls/hr Q8 [facility] Administration Protocol Vancomycin HCl 1 gm in 250 mls @ 167 mls/hr 11/20/18 17:45 11/21/18 10:00 Vancomycin 1gm IVPB 167 mls/hr DAILY [facility] Administration Protocol Insulin Human Regular 0 units 11/16/18 22:00 11/21/18 12:25 Humulin R Med SC Not Given ACHS [facility] Protocol Levalbuterol HCl 1.25 mg 11/17/18 23:43 11/17/18 23:56 Xopenex IH 1.25 mg [id number] PRN Administration Shortness of Breath Lisinopril 2.5 mg 11/18/18 10:00 11/21/18 09:08 Zestril PO 2.5 mg DAILY [facility] Administration Multivitamins/Minerals 1 tab 11/19/18 08:00 11/21/18 09:08 Therapeutic-M Tab PO 1 tab 0800 [facility] Administration Ondansetron HCl 4 mg 11/15/18 04:15 11/15/18 05:03 Zofran Inj IVP 4 mg Q6H PRN Administration Nausea/Vomiting Pantoprazole Sodium 40 mg 11/21/18 10:00 11/21/18 09:11 Protonix Inj IVP 40 mg DAILY [facility] Administration Thiamine HCl 300 mg 11/16/18 17:00 11/21/18 09:09 Vitamin B1 Tab NG 300 mg DAILY [facility] Administration Vitamin A 1 ea 11/17/18 14:51 11/21/18 11:23 Vitamin A & D Oint Ud Foilpak TOP 1 ea Q4H PRN Administration Dry skin - Patient Studies Lab Studies: Microbiology Studies 11/17/18 15:30 Blood Culture - Preliminary Blood NO GROWTH AFTER 3 DAYS 11/17/18 15:00 Blood Culture - Preliminary Blood NO GROWTH AFTER 3 DAYS Lab Studies 11/21/18 11/21/18 11/21/18 Range/Units 11:30 06:00 05:30 WBC (4.5-11.0) 10^3/uL RBC (3.5-6.1) 10^6/uL Hgb (14.0-18.0) g/dL Hct (42.0-52.0) % MCV (80.0-105.0) fl MCH (25.0-35.0) pg MCHC (31.0-37.0) g/dl RDW (11.5-14.5) % Plt Count (120.0-450.0) 10^3/uL MPV (7.0-11.0) fl Neut % (Auto) (50.0-68.0) % Lymph % (Auto) (22.0-35.0) % [place] % (Auto) (1.0-6.0) % Eos % (Auto) (1.5-5.0) % Baso % (Auto) (0.0-3.0) % Lymph # (Auto) (1.2-3.4) [place] # (Auto) (0.1-0.6) Eos # (Auto) (0.0-0.7) Baso # (Auto) (0.0-2.0) K/mm3 Absolute Neuts (auto) (1.4-6.5) pCO2 30 L (35-45) mm/Hg pO2 122.0 H (80-100) mm/Hg HCO3 18.6 L (21-28) mmol/L ABG pH 7.40 (7.35-7.45) ABG Total CO2 19.5 L (22-28) mmol.L ABG O2 Saturation 99.1 H (95-98) % ABG O2 Content 14.5 L (15-23) ML/dl ABG Base Excess -5.3 L (-2.0-3.0) mmol/L ABG Hemoglobin 10.5 L (11.7-17.4) g/dL ABG Carboxyhemoglobin 1.6 H (0.5-1.5) % POC ABG HHb (Measured) 0.9 (0-5) % ABG Methemoglobin 0.9 (0.0-3.0) % ABG O2 Capacity 14.6 L (16-24) mL/dl Hgb O2 Saturation 96.7 (95.0-98.0) % FiO2 35.0 % Sodium 152 H (132-148) mmol/L Potassium 3.8 (3.6-5.0) mmol/L Chloride 123 H (98-107) mmol/L Carbon Dioxide 21 (21-33) mmol/L Anion Gap 11 (10-20) BUN 27 H (7-21) mg/dL Creatinine 1.0 (0.8-1.5) mg/dl Est GFR ( Amer) > 60 Est GFR (Non-Af Amer) > 60 POC Glucose (mg/dL) 189 H (65-110) mg/dL Random Glucose 159 H (70-110) mg/dL Calcium 8.5 (8.4-10.5) mg/dL Phosphorus 3.5 (2.5-4.5) mg/dL Magnesium 2.0 (1.7-2.2) mg/dL Total Bilirubin 0.5 (0.2-1.3) mg/dL AST 32 (17-59) U/L ALT 16 (7-56) U/L Alkaline Phosphatase 86 (38-126) U/L Total Protein 6.2 (5.8-8.3) g/dL Albumin 2.8 L (3.0-4.8) g/dL Globulin 3.5 gm/dL Albumin/Globulin Ratio 0.8 L (1.1-1.8) Random Vancomycin ug/mL 11/21/18 11/20/18 11/20/18 Range/Units 05:30 22:26 16:36 WBC 6.8 (4.5-11.0) 10^3/uL RBC 3.96 (3.5-6.1) 10^6/uL Hgb 10.3 L (14.0-18.0) g/dL Hct 34.1 L (42.0-52.0) % MCV 86.1 (80.0-105.0) fl MCH 26.0 (25.0-35.0) pg MCHC 30.2 L (31.0-37.0) g/dl RDW 16.5 H (11.5-14.5) % Plt Count 116 L (120.0-450.0) 10^3/uL MPV 11.7 H (7.0-11.0) fl Neut % (Auto) 80.8 H (50.0-68.0) % Lymph % (Auto) 5.5 L (22.0-35.0) % [place] % (Auto) 8.3 H (1.0-6.0) % Eos % (Auto) 5.0 (1.5-5.0) % Baso % (Auto) 0.4 (0.0-3.0) % Lymph # (Auto) 0.4 L (1.2-3.4) [place] # (Auto) 0.6 (0.1-0.6) Eos # (Auto) 0.3 (0.0-0.7) Baso # (Auto) 0.03 (0.0-2.0) K/mm3 Absolute Neuts (auto) 5.45 (1.4-6.5) pCO2 (35-45) mm/Hg pO2 (80-100) mm/Hg HCO3 (21-28) mmol/L ABG pH (7.35-7.45) ABG Total CO2 (22-28) mmol.L ABG O2 Saturation (95-98) % ABG O2 Content (15-23) ML/dl ABG Base Excess (-2.0-3.0) mmol/L ABG Hemoglobin (11.7-17.4) g/dL ABG Carboxyhemoglobin (0.5-1.5) % POC ABG HHb (Measured) (0-5) % ABG Methemoglobin (0.0-3.0) % ABG O2 Capacity (16-24) mL/dl Hgb O2 Saturation (95.0-98.0) % FiO2 % Sodium (132-148) mmol/L Potassium (3.6-5.0) mmol/L Chloride (98-107) mmol/L Carbon Dioxide (21-33) mmol/L Anion Gap (10-20) BUN (7-21) mg/dL Creatinine (0.8-1.5) mg/dl Est GFR ( Amer) Est GFR (Non-Af Amer) POC Glucose (mg/dL) 151 H (65-110) mg/dL Random Glucose (70-110) mg/dL Calcium (8.4-10.5) mg/dL Phosphorus (2.5-4.5) mg/dL Magnesium (1.7-2.2) mg/dL Total Bilirubin (0.2-1.3) mg/dL AST (17-59) U/L ALT (7-56) U/L Alkaline Phosphatase (38-126) U/L Total Protein (5.8-8.3) g/dL Albumin (3.0-4.8) g/dL Globulin gm/dL Albumin/Globulin Ratio (1.1-1.8) Random Vancomycin 18.2 ug/mL 11/20/18 11/20/18 Range/Units 16:04 12:11 WBC (4.5-11.0) 10^3/uL RBC (3.5-6.1) 10^6/uL Hgb (14.0-18.0) g/dL Hct (42.0-52.0) % MCV (80.0-105.0) fl MCH (25.0-35.0) pg MCHC (31.0-37.0) g/dl RDW (11.5-14.5) % Plt Count (120.0-450.0) 10^3/uL MPV (7.0-11.0) fl Neut % (Auto) (50.0-68.0) % Lymph % (Auto) (22.0-35.0) % [place] % (Auto) (1.0-6.0) % Eos % (Auto) (1.5-5.0) % Baso % (Auto) (0.0-3.0) % Lymph # (Auto) (1.2-3.4) [place] # (Auto) (0.1-0.6) Eos # (Auto) (0.0-0.7) Baso # (Auto) (0.0-2.0) K/mm3 Absolute Neuts (auto) (1.4-6.5) pCO2 (35-45) mm/Hg pO2 (80-100) mm/Hg HCO3 (21-28) mmol/L ABG pH (7.35-7.45) ABG Total CO2 (22-28) mmol.L ABG O2 Saturation (95-98) % ABG O2 Content (15-23) ML/dl ABG Base Excess (-2.0-3.0) mmol/L ABG Hemoglobin (11.7-17.4) g/dL ABG Carboxyhemoglobin (0.5-1.5) % POC ABG HHb (Measured) (0-5) % ABG Methemoglobin (0.0-3.0) % ABG O2 Capacity (16-24) mL/dl Hgb O2 Saturation (95.0-98.0) % FiO2 % Sodium (132-148) mmol/L Potassium (3.6-5.0) mmol/L Chloride (98-107) mmol/L Carbon Dioxide (21-33) mmol/L Anion Gap (10-20) BUN (7-21) mg/dL Creatinine (0.8-1.5) mg/dl Est GFR ( Amer) Est GFR (Non-Af Amer) POC Glucose (mg/dL) 149 H 155 H (65-110) mg/dL Random Glucose (70-110) mg/dL Calcium (8.4-10.5) mg/dL Phosphorus (2.5-4.5) mg/dL Magnesium (1.7-2.2) mg/dL Total Bilirubin (0.2-1.3) mg/dL AST (17-59) U/L ALT (7-56) U/L Alkaline Phosphatase (38-126) U/L Total Protein (5.8-8.3) g/dL Albumin (3.0-4.8) g/dL Globulin gm/dL Albumin/Globulin Ratio (1.1-1.8) Random Vancomycin ug/mL Laboratory Results - last 24 hr 11/20/18 11/20/18 11/20/18 12:11 16:04 16:36 WBC RBC Hgb Hct MCV MCH MCHC RDW Plt Count MPV Neut % (Auto) Lymph % (Auto) [place] % (Auto) Eos % (Auto) Baso % (Auto) Lymph # (Auto) [place] # (Auto) Eos # (Auto) Baso # (Auto) Absolute Neuts (auto) pCO2 pO2 HCO3 ABG pH ABG Total CO2 ABG O2 Saturation ABG O2 Content ABG Base Excess ABG Hemoglobin ABG Carboxyhemoglobin POC ABG HHb (Measured) ABG Methemoglobin ABG O2 Capacity Hgb O2 Saturation FiO2 Sodium Potassium Chloride Carbon Dioxide Anion Gap BUN Creatinine Est GFR ( Amer) Est GFR (Non-Af Amer) POC Glucose (mg/dL) 155 H 149 H Random Glucose Calcium Phosphorus Magnesium Total Bilirubin AST ALT Alkaline Phosphatase Total Protein Albumin Globulin Albumin/Globulin Ratio Random Vancomycin 18.2 11/20/18 11/21/18 11/21/18 22:26 05:30 05:30 WBC 6.8 RBC 3.96 Hgb 10.3 L Hct 34.1 L MCV 86.1 MCH 26.0 MCHC 30.2 L RDW 16.5 H Plt Count 116 L MPV 11.7 H Neut % (Auto) 80.8 H Lymph % (Auto) 5.5 L [place] % (Auto) 8.3 H Eos % (Auto) 5.0 Baso % (Auto) 0.4 Lymph # (Auto) 0.4 L [place] # (Auto) 0.6 Eos # (Auto) 0.3 Baso # (Auto) 0.03 Absolute Neuts (auto) 5.45 pCO2 pO2 HCO3 ABG pH ABG Total CO2 ABG O2 Saturation ABG O2 Content ABG Base Excess ABG Hemoglobin ABG Carboxyhemoglobin POC ABG HHb (Measured) ABG Methemoglobin ABG O2 Capacity Hgb O2 Saturation FiO2 Sodium 152 H Potassium 3.8 Chloride 123 H Carbon Dioxide 21 Anion Gap 11 BUN 27 H Creatinine 1.0 Est GFR ( Amer) > 60 Est GFR (Non-Af Amer) > 60 POC Glucose (mg/dL) 151 H Random Glucose 159 H Calcium 8.5 Phosphorus 3.5 Magnesium 2.0 Total Bilirubin 0.5 AST 32 ALT 16 Alkaline Phosphatase 86 Total Protein 6.2 Albumin 2.8 L Globulin 3.5 Albumin/Globulin Ratio 0.8 L Random Vancomycin 11/21/18 11/21/18 06:00 11:30 WBC RBC Hgb Hct MCV MCH MCHC RDW Plt Count MPV Neut % (Auto) Lymph % (Auto) [place] % (Auto) Eos % (Auto) Baso % (Auto) Lymph # (Auto) [place] # (Auto) Eos # (Auto) Baso # (Auto) Absolute Neuts (auto) pCO2 30 L pO2 122.0 H HCO3 18.6 L ABG pH 7.40 ABG Total CO2 19.5 L ABG O2 Saturation 99.1 H ABG O2 Content 14.5 L ABG Base Excess -5.3 L ABG Hemoglobin 10.5 L ABG Carboxyhemoglobin 1.6 H POC ABG HHb (Measured) 0.9 ABG Methemoglobin 0.9 ABG O2 Capacity 14.6 L Hgb O2 Saturation 96.7 FiO2 35.0 Sodium Potassium Chloride Carbon Dioxide Anion Gap BUN Creatinine Est GFR ( Amer) Est GFR (Non-Af Amer) POC Glucose (mg/dL) 189 H Random Glucose Calcium Phosphorus Magnesium Total Bilirubin AST ALT Alkaline Phosphatase Total Protein Albumin Globulin Albumin/Globulin Ratio Random Vancomycin Radiology Impressions: Radiology Impressions Chest X-Ray 11/21/18 06:00 IMPRESSION: No active disease. Critical Care Progress Note - Nutrition Nutrition: Nutrition Category Date Time Status NPO Diet [DIET] Diets 11/16/18 Lunch Ordered Addendum Addendum: MICU Attending addendum Patient seen and examined on 11/20 with housestaff Agree with resident note above with the follow add/exceptions 63M hx of DM, HTN, obesity, smoking, dilated cardiomyopathy EF 14%, moderate pulmonary hypertension, paroxysmal atrial fibrillation, ITP normocytic anemia, recently trachd 2/2 influenza then deccanulated however few days later suffered s/p Vfib cardiac arrest, s/p ROSC, s/p hypothermic protocol. Had cardiac cath with 3 stents, with IABP, now removed . patient failed extubation. At this point he will require a trach again or go down a hospice route and extubate which would likely lead to his demise. Awaiting further family discussion; pal care on board Hgb stable s/p 1 unit PRBC transfused 11/19/18 will cont with vent support, low tidal vol ventilaiton, abx as per ID, Merrem, Vanco ASA, Plavix, Statin, Lasix On martinez Mitchell MD MICU Attending
--- NOTE | 2018-11-20 09:36 | RAD ---
Date of service: 11/20/2018 HISTORY: f/u COMPARISON: 11/19/2018 TECHNIQUE: 1 view obtained. FINDINGS: LUNGS: No active pulmonary disease. PLEURA: No significant pleural effusion identified, no pneumothorax apparent. CARDIOVASCULAR: No aortic atherosclerotic calcification present. Mild cardiomegaly. No pulmonary vascular congestion. OSSEOUS STRUCTURES: No significant abnormalities. VISUALIZED UPPER ABDOMEN: Normal. OTHER FINDINGS: The endotracheal and nasogastric tube are in satisfactory position IMPRESSION: No active disease.
--- NOTE | 2018-11-20 10:04 | PN ---
DATE: 11/20/2018(700am-755am) SUBJECTIVE: The patient is currently on the ventilator. He is sedated. PHYSICAL EXAMINATION: VITAL SIGNS: Temperature 98.8, pulse 71, respiratory rate 20/16, blood pressure 112/69. HEENT: Normocephalic, atraumatic. No JVD. CARDIOVASCULAR: Positive S1, S2. No S3 gallop. LUNGS: Decreased breath sounds at the bases. Less rhonchi. No wheezing. EXTREMITIES: Mild edema. No cyanosis. No clubbing. GASTROINTESTINAL: Abdomen is soft, nondistended. Bowel sounds are positive. SKIN: No acute rash. NEUROLOGIC: Exam limited at the present time. 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 Chest x-ray appears improved with decreased pulmonary vascular congestion - compared to the initial film done yesterday morning. Official results are pending. Arterial blood gas was done; PRVC 16, tidal volume 400, FIO2 of 35%. Results are: pH 7.38, pCO2 of 31, pO2 of 156. IMPRESSION: 1. Ventricular fibrillation arrest. 2. Respiratory failure. 3. Myocardial infarction. 4. Advanced dilated cardiomyopathy. 5. Anemia. 6. Renal insufficiency. PLAN: The patient is currently on the ventilator. He is sedated. I did discuss the case with the night nurse at length. The night nurse stated the patient has last shift was uneventful. I did review the x-ray as above. Findings are noted. Official results are pending. I have also reviewed the arterial blood gas. The arterial blood gas is significantly improved - with normalization of the pH and a significant decrease in the alveolar arterial gradient. I will discuss the ventilator settings with the ICU team in the next few moments. Given the patient's above and previous history, the patient may warrant tracheostomy. The patient remains on antibiotic therapy - as per infectious disease. Temperatures are now resolving. Inputs by Renal and Cardiology are also ordered. Clinical status of the patient is improved - compared to yesterday morning. However, unfortunately, the future status/prognosis for this patient remains very guarded at best/poor. I will discuss the above with the entire ICU team in the next few moments. I will also discuss the above with the attending physician later this morning. Balta Burr MD [facility] # [id number] MOE
[2018-11-20] MEDS: Ascorbic Acid 500 mg/5 ml Liq(50 ml) PO SCH ×2 (10:18→18:56)
[2018-11-20] MEDS: Collagenase 250 Units/gm Ointment(30 gm) TOP SCH (10:20)
[2018-11-20] MEDS: Enoxaparin 40 mg Syringe SC SCH (10:24)
[2018-11-20] MEDS: Amiodarone 360 mg/D5W 200 ml 360 MG/200 ML BAG IV SCH ×2 (10:45→10:46)
--- NOTE | 2018-11-20 12:35 | CP.PCM.PN ---
<Tramaine Ray - Last Filed: 11/20/18 12:29> Subjective - Date & Time of Evaluation Date of Evaluation: 11/20/18 Time of Evaluation: 10:00 - Subjective Subjective: Tramaine Ray Internal Medicine Resident- Progress Note on Behalf of Dr. Hardy Subjective: Patient seen and examined at bedside. No acute events overnight. As per staff, the patient experienced 2 loose bowel movements since yesterday. No note of bright red blood per rectum/ dark stools. Further subjective data cannot be ascertained at this time due to patients altered mental status. 12-point review of systems cannot be ascertained at this time due to altered mental status Physical Examination: - Constitutional Appears: Chronically Ill - Head Exam Head Exam: ATRAUMATIC - ENT Exam ENT Exam: Mucous Membranes Dry, +ETT - Respiratory Exam Additional comments: CTA anteriorly, symmetric expansion - Cardiovascular Exam Cardiovascular Exam tachycardic, +s1, +s2 - GI/Abdominal Exam GI & Abdominal Exam: Normal Bowel Sounds, Soft. absent: Diminished Bowel Sounds, Firm, Organomegaly, Rigid - Extremities Exam Extremities exam: Positive for: normal inspection. Negative for: pedal edema - Neurological Exam Neurological exam: altered - Skin Skin Exam: Normal Color, Warm Assessment and Plan: Patient is a 63-year-old white male with a past medical history of biventricular CHF, atrial fibrillation, diabetes type 2, hypertension, GERD, ITP (on TPO agonist), pseudogout, anxiety, COPD, CKD who was admitted for evaluation and cristopher atment s/p cardiac arrest in the field. GI consulted for anemia/possible GI bleed. - Chronic normocytic anemia:hemoglobin near baseline s/p 1 additional unit of pRBCs yesterday with appropriate response - cardiac arrest: Suspect related to underlying arrhythmia in the setting of CHF with last echo in June 2018 with severe CHF. No AICD in place. - continue to monitor hemoglobin - discontinue on famotodine 20mg IV q12 - reduce protonix 40mg IV q12 to protonix 40mg IV daily - follow up cardiac workup Patient case discussed with and plan approved by attending physician, Dr. Hardy. Objective - Vital Signs/Intake and Output Vital Signs (last 24 hours): Temp Pulse Resp BP Pulse Ox 99.1 F 77 21 112/64 100 11/20/18 11:00 11/20/18 11:00 11/20/18 07:08 11/20/18 11:00 11/20/18 11:00 Intake and Output: 11/20/18 11/20/18 06:59 18:59 Intake Total 100 Output Total 500 Balance -400 - Medications Medications: Current Medications Amiodarone HCl (Cordarone) 400 mg PO BRKDIN [facility] Last Admin: 11/19/18 09:05 Dose: Not Given Ascorbic Acid (Vitamin C Liq) 500 mg PO BID [facility] Last Admin: 11/20/18 10:18 Dose: 500 mg Aspirin (Aspirin Chewable) 81 mg PO DAILY [facility] Last Admin: 11/20/18 10:25 Dose: 81 mg Atorvastatin Calcium (Lipitor) 40 mg PO DIN [facility] Last Admin: 11/19/18 16:36 Dose: 40 mg Clopidogrel Bisulfate (Plavix) 75 mg PO DAILY [facility] Last Admin: 11/20/18 10:24 Dose: 75 mg Collagenase (Santyl) 0 gm TOP DAILY [facility] Last Admin: 11/20/18 10:20 Dose: 1 applic Dextrose (Dextrose 50% Inj) 0 ml IV STAT PRN; Protocol PRN Reason: Hypoglycemia Protocol Enoxaparin Sodium (Lovenox) 40 mg SC DAILY [facility]; Protocol Last Admin: 11/20/18 10:24 Dose: 40 mg Furosemide (Lasix) 40 mg IVP DAILY [facility] Last Admin: 11/19/18 09:26 Dose: Not Given Hydralazine HCl (Apresoline) 25 mg PO QID [facility] Last Admin: 11/18/18 21:54 Dose: 25 mg Sodium Chloride (Sodium Chloride 0.9%) 1,000 mls @ 100 mls/hr IV .Q10H [facility] Last Admin: 11/15/18 06:00 Dose: 100 mls/hr Vancomycin HCl (Vancomycin 1gm) 1 gm in 250 mls @ 167 mls/hr IVPB Q12H [facility]; Protocol Last Admin: 11/19/18 09:11 Dose: Not Given Meropenem (Merrem Iv 1 Gm Premix) 1 gm in 50 mls @ 100 mls/hr IVPB Q8 [facility]; Protocol Stop: 11/26/18 14:01 Last Admin: 11/20/18 05:36 Dose: 100 mls/hr Propofol (Diprivan) 1,000 mg in 100 mls @ 2.502 mls/hr IV .Q24H PRN; Protocol PRN Reason: TITRATE PER MD ORDER Last Titration: 11/19/18 16:32 Dose: Infused Acetaminophen (Ofirmev) 1,000 mg in 100 mls @ 400 mls/hr IVPB Q8H PRN PRN Reason: Fever Stop: 11/21/18 07:13 Last Admin: 11/19/18 06:50 Dose: 400 mls/hr Amiodarone HCl/Dextrose (Nexterone 360 Mg In D5w 200 Ml (Premix)) 360 mg in 200 mls @ 33.333 mls/hr IV .Q6H [facility]; Protocol Last Admin: 11/20/18 10:46 Dose: Not Given Insulin Human Regular (Humulin R Med) 0 units SC ACHS [facility]; Protocol Last Admin: 11/20/18 12:17 Dose: Not Given Levalbuterol HCl (Xopenex) 1.25 mg IH [id number] PRN PRN Reason: Shortness of Breath Last Admin: 11/17/18 23:56 Dose: 1.25 mg Lisinopril (Zestril) 2.5 mg PO DAILY [facility] Last Admin: 11/20/18 10:25 Dose: 2.5 mg Multivitamins/Minerals (Therapeutic-M Tab) 1 tab PO 0800 [facility] Last Admin: 11/20/18 07:44 Dose: 1 tab Ondansetron HCl (Zofran Inj) 4 mg IVP Q6H PRN PRN Reason: Nausea/Vomiting Last Admin: 11/15/18 05:03 Dose: 4 mg Pantoprazole Sodium (Protonix Inj) 40 mg IVP Q12 [facility] Last Admin: 11/20/18 10:24 Dose: 40 mg Thiamine HCl (Vitamin B1 Tab) 300 mg NG DAILY [facility] Last Admin: 11/20/18 10:25 Dose: 300 mg Vitamin A (Vitamin A & D Oint Ud Foilpak) 1 ea TOP Q4H PRN PRN Reason: Dry skin Last Admin: 11/17/18 15:10 Dose: 1 ea - Labs Labs: 11/20/18 05:30 11/20/18 05:30 PT 14.4 SECONDS (9.4-12.5) H 11/14/18 18:19 INR 1.30 11/14/18 18:19 APTT 45.9 Seconds (26.9-38.3) H 11/17/18 10:20 <Hayley,Kovil V - Last Filed: 11/21/18 00:07> Objective - Vital Signs/Intake and Output Vital Signs (last 24 hours): Temp Pulse Resp BP Pulse Ox 99.1 F 72 21 118/76 97 11/20/18 22:00 11/20/18 22:00 11/20/18 07:08 11/20/18 22:00 11/20/18 22:00 Intake and Output: 11/20/18 11/21/18 18:59 06:59 Intake Total 410 Output Total 800 Balance -390 - Medications Medications: Current Medications Amino Acid Protein (Prostat 15 G Packet) 15 gm GT BID [facility] Last Admin: 11/20/18 18:44 Dose: 15 gm Amiodarone HCl (Cordarone) 400 mg PO BRKDIN [facility] Last Admin: 11/20/18 18:56 Dose: 400 mg Ascorbic Acid (Vitamin C Liq) 500 mg PO BID [facility] Last Admin: 11/20/18 18:56 Dose: 500 mg Aspirin (Aspirin Chewable) 81 mg PO DAILY [facility] Last Admin: 11/20/18 10:25 Dose: 81 mg Atorvastatin Calcium (Lipitor) 40 mg PO DIN [facility] Last Admin: 11/20/18 18:56 Dose: 40 mg Clopidogrel Bisulfate (Plavix) 75 mg PO DAILY [facility] Last Admin: 11/20/18 10:24 Dose: 75 mg Collagenase (Santyl) 0 gm TOP DAILY [facility] Last Admin: 11/20/18 10:20 Dose: 1 applic Dextrose (Dextrose 50% Inj) 0 ml IV STAT PRN; Protocol PRN Reason: Hypoglycemia Protocol Enoxaparin Sodium (Lovenox) 40 mg SC DAILY [facility]; Protocol Last Admin: 11/20/18 10:24 Dose: 40 mg Furosemide (Lasix) 40 mg IVP DAILY [facility] Last Admin: 11/19/18 09:26 Dose: Not Given Hydralazine HCl (Apresoline) 25 mg PO QID [facility] Last Admin: 11/18/18 21:54 Dose: 25 mg Sodium Chloride (Sodium Chloride 0.9%) 1,000 mls @ 100 mls/hr IV .Q10H [facility] Last Admin: 11/15/18 06:00 Dose: 100 mls/hr Meropenem (Merrem Iv 1 Gm Premix) 1 gm in 50 mls @ 100 mls/hr IVPB Q8 [facility]; Protocol Stop: 11/26/18 14:01 Last Admin: 11/20/18 14:03 Dose: 100 mls/hr Propofol (Diprivan) 1,000 mg in 100 mls @ 2.502 mls/hr IV .Q24H PRN; Protocol PRN Reason: TITRATE PER MD ORDER Last Titration: 11/19/18 16:32 Dose: Infused Acetaminophen (Ofirmev) 1,000 mg in 100 mls @ 400 mls/hr IVPB Q8H PRN PRN Reason: Fever Stop: 11/21/18 07:13 Last Admin: 11/19/18 06:50 Dose: 400 mls/hr Amiodarone HCl/Dextrose (Nexterone 360 Mg In D5w 200 Ml (Premix)) 360 mg in 200 mls @ 33.333 mls/hr IV .Q6H [facility]; Protocol Last Admin: 11/20/18 10:46 Dose: Not Given Vancomycin HCl (Vancomycin 1gm) 1 gm in 250 mls @ 167 mls/hr IVPB DAILY [facility]; Protocol Last Admin: 11/20/18 18:28 Dose: 167 mls/hr Insulin Human Regular (Humulin R Med) 0 units SC ACHS [facility]; Protocol Last Admin: 11/20/18 12:17 Dose: Not Given Levalbuterol HCl (Xopenex) 1.25 mg IH [id number] PRN PRN Reason: Shortness of Breath Last Admin: 11/17/18 23:56 Dose: 1.25 mg Lisinopril (Zestril) 2.5 mg PO DAILY [facility] Last Admin: 11/20/18 10:25 Dose: 2.5 mg Multivitamins/Minerals (Therapeutic-M Tab) 1 tab PO 0800 [facility] Last Admin: 11/20/18 07:44 Dose: 1 tab Ondansetron HCl (Zofran Inj) 4 mg IVP Q6H PRN PRN Reason: Nausea/Vomiting Last Admin: 11/15/18 05:03 Dose: 4 mg Pantoprazole Sodium (Protonix Inj) 40 mg IVP DAILY [facility] Thiamine HCl (Vitamin B1 Tab) 300 mg NG DAILY [facility] Last Admin: 11/20/18 10:25 Dose: 300 mg Vitamin A (Vitamin A & D Oint Ud Foilpak) 1 ea TOP Q4H PRN PRN Reason: Dry skin Last Admin: 11/17/18 15:10 Dose: 1 ea - Labs Labs: 11/20/18 05:30 11/20/18 05:30 PT 14.4 SECONDS (9.4-12.5) H 11/14/18 18:19 INR 1.30 11/14/18 18: APTT 45.9 Seconds (26.9-38.3) H 11/17/18 10:20 Attending/Attestation - Attestation I have personally seen and examined this patient.: Yes I have fully participated in the care of the patient.: Yes I have reviewed all pertinent clinical information, including history, physical exam and plan: Yes Notes (Text): This patient was seen and evaluated here earlier along with the resident. This is an addendum to the GI progress note dictated by the resident. Status post transfusion hemoglobin stable Patient has been on Lovenox aspirin and Plavix. On Protonix 40 mg IV daily we will continue that Follow-up of the CBC. 11/21/18 00:06
--- NOTE | 2018-11-20 13:13 | CP.PCM.PN ---
<Lino Valladares - Last Filed: 11/20/18 15:59> Subjective - Date & Time of Evaluation Date of Evaluation: 11/20/18 Time of Evaluation: 10:00 - Subjective Subjective: Infectious disease progress note: Patient seen and examined at bedside. No acute events overnight. Patient still complains of right lower extremity pain however denies any more shortness of breath. No other complaints. 12 point ROS performed and negative unless stated above. Objective - Vital Signs/Intake and Output Vital Signs (last 24 hours): Temp Pulse Resp BP Pulse Ox 99.1 F 77 21 112/64 100 11/20/18 11:00 11/20/18 11:00 11/20/18 07:08 11/20/18 11:00 11/20/18 11:00 Intake and Output: 11/20/18 11/20/18 06:59 18:59 Intake Total 100 Output Total 500 Balance -400 - Medications Medications: Current Medications Amiodarone HCl (Cordarone) 400 mg PO BRKDIN [facility] Last Admin: 11/19/18 09:05 Dose: Not Given Ascorbic Acid (Vitamin C Liq) 500 mg PO BID [facility] Last Admin: 11/20/18 10:18 Dose: 500 mg Aspirin (Aspirin Chewable) 81 mg PO DAILY [facility] Last Admin: 11/20/18 10:25 Dose: 81 mg Atorvastatin Calcium (Lipitor) 40 mg PO DIN [facility] Last Admin: 11/19/18 16:36 Dose: 40 mg Clopidogrel Bisulfate (Plavix) 75 mg PO DAILY [facility] Last Admin: 11/20/18 10:24 Dose: 75 mg Collagenase (Santyl) 0 gm TOP DAILY [facility] Last Admin: 11/20/18 10:20 Dose: 1 applic Dextrose (Dextrose 50% Inj) 0 ml IV STAT PRN; Protocol PRN Reason: Hypoglycemia Protocol Enoxaparin Sodium (Lovenox) 40 mg SC DAILY [facility]; Protocol Last Admin: 11/20/18 10:24 Dose: 40 mg Furosemide (Lasix) 40 mg IVP DAILY [facility] Last Admin: 11/19/18 09:26 Dose: Not Given Hydralazine HCl (Apresoline) 25 mg PO QID [facility] Last Admin: 11/18/18 21:54 Dose: 25 mg Sodium Chloride (Sodium Chloride 0.9%) 1,000 mls @ 100 mls/hr IV .Q10H [facility] Last Admin: 11/15/18 06:00 Dose: 100 mls/hr Vancomycin HCl (Vancomycin 1gm) 1 gm in 250 mls @ 167 mls/hr IVPB Q12H [facility]; Protocol Last Admin: 11/19/18 09:11 Dose: Not Given Meropenem (Merrem Iv 1 Gm Premix) 1 gm in 50 mls @ 100 mls/hr IVPB Q8 [facility]; Protocol Stop: 11/26/18 14:01 Last Admin: 11/20/18 05:36 Dose: 100 mls/hr Propofol (Diprivan) 1,000 mg in 100 mls @ 2.502 mls/hr IV .Q24H PRN; Protocol PRN Reason: TITRATE PER MD ORDER Last Titration: 11/19/18 16:32 Dose: Infused Acetaminophen (Ofirmev) 1,000 mg in 100 mls @ 400 mls/hr IVPB Q8H PRN PRN Reason: Fever Stop: 11/21/18 07:13 Last Admin: 11/19/18 06:50 Dose: 400 mls/hr Amiodarone HCl/Dextrose (Nexterone 360 Mg In D5w 200 Ml (Premix)) 360 mg in 200 mls @ 33.333 mls/hr IV .Q6H [facility]; Protocol Last Admin: 11/20/18 10:46 Dose: Not Given Insulin Human Regular (Humulin R Med) 0 units SC ACHS [facility]; Protocol Last Admin: 11/20/18 12:17 Dose: Not Given Levalbuterol HCl (Xopenex) 1.25 mg IH [id number] PRN PRN Reason: Shortness of Breath Last Admin: 11/17/18 23:56 Dose: 1.25 mg Lisinopril (Zestril) 2.5 mg PO DAILY [facility] Last Admin: 11/20/18 10:25 Dose: 2.5 mg Multivitamins/Minerals (Therapeutic-M Tab) 1 tab PO 0800 [facility] Last Admin: 11/20/18 07:44 Dose: 1 tab Ondansetron HCl (Zofran Inj) 4 mg IVP Q6H PRN PRN Reason: Nausea/Vomiting Last Admin: 11/15/18 05:03 Dose: 4 mg Pantoprazole Sodium (Protonix Inj) 40 mg IVP DAILY [facility] Thiamine HCl (Vitamin B1 Tab) 300 mg NG DAILY [facility] Last Admin: 11/20/18 10:25 Dose: 300 mg Vitamin A (Vitamin A & D Oint Ud Foilpak) 1 ea TOP Q4H PRN PRN Reason: Dry skin Last Admin: 11/17/18 15:10 Dose: 1 ea - Labs Labs: 11/20/18 05:30 11/20/18 05:30 PT 14.4 SECONDS (9.4-12.5) H 11/14/18 18:19 INR 1.30 11/14/18 18:19 APTT 45.9 Seconds (26.9-38.3) H 11/17/18 10:20 - Constitutional Appears: No Acute Distress - Head Exam Head Exam: ATRAUMATIC, NORMOCEPHALIC - Eye Exam Eye Exam: PERRL - ENT Exam ENT Exam: Mucous Membranes Moist - Respiratory Exam Respiratory Exam: Clear to Ausculation Bilateral. absent: Wheezes - Cardiovascular Exam Cardiovascular Exam: RRR, +S1, +S2 - GI/Abdominal Exam GI & Abdominal Exam: Soft. absent: Tenderness - Extremities Exam Extremities Exam: absent: Calf Tenderness, Pedal Edema - Skin Skin Exam: Dry, Warm Assessment and Plan - Assessment and Plan (Free Text) Assessment: Respiratory failure - ventilator dependent S/p cardiac arrest likely 2/2 cardiogenic shock vs septic shock Coag neg staph bacteremia Urinary tract infection - Proteus mirabilis V tach s/p shock x 4 COPD Hypertension Diabetes mellitus Peripheral vascular disease Cont Vanc day 4 , for Coag neg staph bacteremia Repeat blood cx neg Cont Antonieta for the UTI - Proteus mirabilis day Follow-up cardiology recommendations UA is positive, Follow-up urine culture - shows Proteus mirabilis Procal has been neg Follow-up further ICU recs Continue to monitor for any changes Case and plan to be reviewed and discussed with Dr. Fernandes. <Satya Fernandes - Last Filed: 11/20/18 16:04> Objective - Vital Signs/Intake and Output Vital Signs (last 24 hours): Temp Pulse Resp BP Pulse Ox 99.1 F 66 21 131/86 99 11/20/18 15:00 11/20/18 15:47 11/20/18 07:08 11/20/18 15:00 11/20/18 15:00 Intake and Output: 05/17/19 05/17/19 06:59 18:59 Intake Total 100 Output Total 500 Balance -400 - Medications Medications: Current Medications Amino Acid Protein (Prostat 15 G Packet) 15 gm GT BID [facility] Amiodarone HCl (Cordarone) 400 mg PO BRKDIN [facility] Last Admin: 11/19/18 09:05 Dose: Not Given Ascorbic Acid (Vitamin C Liq) 500 mg PO BID [facility] Last Admin: 11/20/18 10:18 Dose: 500 mg Aspirin (Aspirin Chewable) 81 mg PO DAILY [facility] Last Admin: 11/20/18 10:25 Dose: 81 mg Atorvastatin Calcium (Lipitor) 40 mg PO DIN [facility] Last Admin: 11/19/18 16:36 Dose: 40 mg Clopidogrel Bisulfate (Plavix) 75 mg PO DAILY [facility] Last Admin: 11/20/18 10:24 Dose: 75 mg Collagenase (Santyl) 0 gm TOP DAILY [facility] Last Admin: 11/20/18 10:20 Dose: 1 applic Dextrose (Dextrose 50% Inj) 0 ml IV STAT PRN; Protocol PRN Reason: Hypoglycemia Protocol Enoxaparin Sodium (Lovenox) 40 mg SC DAILY [facility]; Protocol Last Admin: 11/20/18 10:24 Dose: 40 mg Furosemide (Lasix) 40 mg IVP DAILY [facility] Last Admin: 11/19/18 09:26 Dose: Not Given Hydralazine HCl (Apresoline) 25 mg PO QID [facility] Last Admin: 11/18/18 21:54 Dose: 25 mg Sodium Chloride (Sodium Chloride 0.9%) 1,000 mls @ 100 mls/hr IV .Q10H [facility] Last Admin: 11/15/18 06:00 Dose: 100 mls/hr Vancomycin HCl (Vancomycin 1gm) 1 gm in 250 mls @ 167 mls/hr IVPB Q12H [facility]; Protocol Last Admin: 11/19/18 09:11 Dose: Not Given Meropenem (Merrem Iv 1 Gm Premix) 1 gm in 50 mls @ 100 mls/hr IVPB Q8 [facility]; Protocol Stop: 11/26/18 14:01 Last Admin: 11/20/18 14:03 Dose: 100 mls/hr Propofol (Diprivan) 1,000 mg in 100 mls @ 2.502 mls/hr IV .Q24H PRN; Protocol PRN Reason: TITRATE PER MD ORDER Last Titration: 11/19/18 16:32 Dose: Infused Acetaminophen (Ofirmev) 1,000 mg in 100 mls @ 400 mls/hr IVPB Q8H PRN PRN Reason: Fever Stop: 11/21/18 07:13 Last Admin: 11/19/18 06:50 Dose: 400 mls/hr Amiodarone HCl/Dextrose (Nexterone 360 Mg In D5w 200 Ml (Premix)) 360 mg in 200 mls @ 33.333 mls/hr IV .Q6H [facility]; Protocol Last Admin: 11/20/18 10:46 Dose: Not Given Insulin Human Regular (Humulin R Med) 0 units SC ACHS [facility]; Protocol Last Admin: 11/20/18 12:17 Dose: Not Given Levalbuterol HCl (Xopenex) 1.25 mg IH [id number] PRN PRN Reason: Shortness of Breath Last Admin: 11/17/18 23:56 Dose: 1.25 mg Lisinopril (Zestril) 2.5 mg PO DAILY [facility] Last Admin: 11/20/18 10:25 Dose: 2.5 mg Multivitamins/Minerals (Therapeutic-M Tab) 1 tab PO 0800 [facility] Last Admin: 11/20/18 07:44 Dose: 1 tab Ondansetron HCl (Zofran Inj) 4 mg IVP Q6H PRN PRN Reason: Nausea/Vomiting Last Admin: 11/15/18 05:03 Dose: 4 mg Pantoprazole Sodium (Protonix Inj) 40 mg IVP DAILY [facility] Thiamine HCl (Vitamin B1 Tab) 300 mg NG DAILY [facility] Last Admin: 11/20/18 10:25 Dose: 300 mg Vitamin A (Vitamin A & D Oint Ud Foilpak) 1 ea TOP Q4H PRN PRN Reason: Dry skin Last Admin: 11/17/18 15:10 Dose: 1 ea - Labs Labs: 11/20/18 05:30 11/20/18 05:30 PT 14.4 SECONDS (9.4-12.5) H 11/14/18 18:19 INR 1.30 11/14/18 18:19 APTT 45.9 Seconds (26.9-38.3) H 11/17/18 10:20 Attending/Attestation - Attestation I have personally seen and examined this patient.: Yes I have fully participated in the care of the patient.: Yes I have reviewed all pertinent clinical information, including history, physical exam and plan: Yes
--- NOTE | 2018-11-20 14:04 | PN ---
DATE: 11/20/2018 SUBJECTIVE: The patient remains on a ventilator, sedation is off. The patient remains very obtunded. PHYSICAL EXAMINATION: VITAL SIGNS: Blood pressure is 123/76, heart rate in the 80s. NECK: Negative JVD. LUNGS: Clear to auscultation. HEART: Reveals S1 and S2. EXTREMITIES: Without edema. LABORATORY DATA: Hemoglobin is 9.5. Chemistries; BUN and creatinine 27 and 1.2. IMPRESSION: 1. Status post ventricular fibrillation arrest. 2. Anoxic encephalopathy. 3. Recurrent congestive heart failure. 4. Respiratory failure. 5. Diabetes mellitus. 6. Status post multivessel percutaneous transluminal coronary angioplasty and stent. 7. End-stage dilated cardiomyopathy. PLAN: Given these findings, the patient had a major set back with recurrent respiratory failure. His mental status has not improved. The family has made him a DNR. Benjamin Saxena MD
--- NOTE | 2018-11-20 17:26 | PN ---
DATE: 11/20/2018 SUBJECTIVE: The patient is currently seen intubated in ICU bed 5. Family members in the room. The patient is unresponsive to verbal communication. He appears to be staring up at the ceiling. He is being fed through a Dobbhoff tube. The intra-aortic balloon pump had been removed. The patient had five episodes of V-tach yesterday requiring CPR. MEDICATIONS: Medication list reviewed. The patient is currently on aspirin, amiodarone, Diprivan, sliding scale insulin, Lipitor, Lovenox, meropenem, Tylenol, Plavix, protein supplements, Protonix, Santyl, MultiVites, vitamin A and D, vitamin B1, vitamin C liquid, Xopenex, lisinopril, and Zofran. PHYSICAL EXAMINATION: INTAKE/OUTPUT: Intake is 700, output is 2150. VITAL SIGNS: Blood pressure is 112/64, pulse of 74, temperature 99.3, oxygen saturation 98% with a respiratory rate on the ventilator of 21. HEENT: Eyes are closed. Dobbhoff tube is in place. The patient is intubated. Conjunctivae remain pale. Sclerae are nonicteric. NECK: No neck vein distention. CARDIOVASCULAR: Shows a regular rate and rhythm with no S3, no S4. Positive MR/TR/AI. No rub. CHEST: Decreased breath sounds at the bases with scattered rhonchi. No rales or wheezing. ABDOMEN: Shows bowel sounds which are normal. Soft. No tenderness. No rebound, guarding or masses. EXTREMITIES: Show no lower extremity cyanosis, clubbing or edema. NEURO: Shows him to be unresponsive to verbal stimuli. LABORATORY DATA AND IMAGING: CBC, white blood cell count today 6.5, hemoglobin 9.5 with a platelet count of 128,000. Chemistries: Sodium 152 today, potassium is 3.4, chloride is 125. BUN is 27 with a creatinine of 1.2, glucose is 148. Calcium is 8.3. Albumin is 2.7. Microbiology cultures as noted previously. Followup blood cultures are negative. Urine from last week was positive for Proteus, initial blood cultures were positive for coag-negative staph. ASSESSMENT: 1. Severe cardiomyopathy status post intra-aortic balloon pump status post ventricular tachycardia times five episodes yesterday requiring cardioversion. The patient's short and fci cardiac prognosis is extremely poor. He is status post therapeutic hypothermia. He remains on a ventilator and weaning attempts have been futile. 2. Past history of chronic kidney disease stage III, renal parameters are acceptable. The patient's cardiac output post intra-aortic balloon pump improved with perfusion of his kidneys. We will continue to monitor his renal parameters on a daily basis. 3. History of non-insulin dependent diabetes mellitus. Patient remains on sliding scale insulin. 4. Sepsis with positive blood cultures and urinary tract infection. The patient is completing a course of antibiotic therapy. 5. History of paroxysmal atrial fibrillation. He appears to be in sinus rhythm. 6. History of pulmonary hypertension, severe. 7. History of valvular heart disease with MR/AI/TR. 8. History of anemia. Hemoglobin is stable in the 9-10 range. 9. Mild hypernatremia with mild hypokalemia. The patient should have potassium supplement and the patient may receive fluid hydration via the Dobbhoff tube. PLAN: 1. We will continue present level of care. Discussed with family member unfortunately long and short-term prognosis is extremely poor. 2. Continue to monitor labs on a daily basis and adjust electrolytes and adjust supplements to his electrolytes. 3. Continue to monitor sugars and maintain euglycemia. 4. Complete a course of antibiotic. 5. Avoid all nephrotoxic agents. 6. Expect worsening of his renal parameters as the intra-aortic balloon pump has been discontinued and in all likelihood his cardiac output and renal perfusion will decrease. 7. Case discussed with ICU staff. Greater than 35 minutes spent in the care of this patient. Margarito Mcnamara MD
[2018-11-20] MEDS: Vancomycin 1gm in NS 250ml 1 GM/250 ML BAG IVPB SCH (18:28)
[2018-11-20] MEDS: Prostat 15 g packet GT SCH (18:44)
--- NOTE | 2018-11-20 18:49 | PN ---
DATE: 11/20/2018 SUBJECTIVE: The patient is currently in ICU bed 5. He is intubated and sedated and is unable to give a history, so review of systems is unobtainable. PHYSICAL EXAMINATION: VITAL SIGNS: Temperature of 99.1, pulse rate of 87, blood pressure of 124/75, O2 saturation of 100%. The patient intubated. HEENT: PERRLA. No icterus. NECK: Supple with full range of motion. LUNGS: Clear to auscultation and percussion bilaterally. HEART: Regular rate and rhythm. ABDOMEN: Benign. NEUROLOGIC: As stated, the patient is intubated and sedated. LABORATORY VALUES: WBC of 6.5, H and H of 9.5 and 31.2. Chemistry shows a sodium of 152, potassium of 3.4, BUN of 27, creatinine of 1.2. Serum glucose of 148. CURRENT PROBLEM: Ventricular fibrillation, cardiac arrest, septic shock, hypoxemic respiratory failure, hyperglycemia, and hyperkalemia. Continue current management. Cipriano Martinez MD
--- NOTE | 2018-11-20 20:49 | PCM.PCON ---
History of Present Illness - History of Present Illness History of Present Illness: Palliative consult requested by Dr Rhina Mitchell copied to Dr Michele Martinez Reason: Goals of care This is 63 year old white male with history of CHF, atrial fibrillation, diabetes type 2, hypertension, GERD, ITP COPD, CKD who was found unresponsive at home. Family initiated CPR. EMS called > ACLS> intubated> ROSC. reported that the patient complained of non specific abdominal discomfort prior to this event. He is s/p hyothermia protocol. On 11/16 he went for cardiac cath with placement of 3 stents and IABP. On 11/17 he was extubated and remained relatively stable. On 11/19 patient had episode of V TAch > ACLS>intubated. He remains intubated and unresponsive. Head CT: No acute intracranal findings. Chronic lacunar infarctions in right carona radiata and basal ganglia.Mild micrangiopathic changes with some global parenchymal volume loss Labs: Wbc 6.5, Hgb 9.5, Plt 128,,Na 153, K 4.1, Co2 117, Bun 49,K 1.2, glucose 119, Mg 2.7, T bili 1.9, AST 143, ALT 262, T P 5.4, Alb 2.7 Micro: Blood culture + Coag Staph, Urine + Proteus Mirabilis- on 11/14. Subsequent cultures negative vEEG: Severe, non specific diffuse disturbance of cortical activity. This is in keeping with a diffuse hernandez matter dysfunction. No seizures. Echo 11/20: Results pending PMHx:biventricular CHF, atrial fibrillation, diabetes type 2, hypertension, GERD, ITP COPD, CKD, Barrets esophagus, PSHx:: Family history: Non contributory. Social History: Non smoker, no alcohol or drug use. Lives with spouse Advance Care Planning: Patient is DNR Review of Systems: Unable to obtain, intubated. Physical Exam - Constitutional Appears: Chronically Ill Additional comments: Vital sigsn T 98.8, P 78, BP 138/80, intubated - Eye Exam Eye Exam: Normal appearance, PERRL - ENT Exam ENT Exam: Mucous Membranes Moist - Respiratory Exam Respiratory Exam: Decreased Breath Sounds Additional comments: intubated - Cardiovascular Exam Cardiovascular Exam: REGULAR RHYTHM, +S1, +S2 - GI/Abdominal Exam GI & Abdominal Exam: Hypoactive Bowel Sounds, Soft - Extremities Exam Extremities exam: Positive for: pedal edema, pedal pulses present - Neurological Exam Neurological exam: Altered - Skin Skin Exam: Dry, Pallor - Additional Findings Additional findings: Palliative performance scale 20% Palliative Care Assessment - Patrick Scale Sensory Perception: Completely Limited Moisture: Occasionally Moist Activity: Bedfast Mobility: Completely Immobile Nutrition: Very Poor Friction & Shear: Problem Total Score - Skin Risk Assessment: 8 Palliative Care - Goals Treatment Goal(s): Alleviate symptoms, Improve quality of life End of life care discussed: Yes - Plan 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 He remains intubated An at beside. Lengthy discussion ensued regarding goals of care. understands that her is critically ill and may not rebound from this event. expressed that her has been through a lot and she doesn't think he would want tracheostomy/Peg. She stated that although he fought hard to overcome current medical disabilities,his quality of life is not optimal. is aware that if patient is unable to be extubated within the next few days, that trach/peg will be necessary if she wants to continue aggressive supportive care. She intends to see how he is over the next few days and have further discussion with her family. She may consider terminal extubation. Psychosocial support provided. Time spent in goals of care and advance care planning,30 minutes Plan: Goals of care and advance care planning Cardiology following as per recs>Continue Lasix, Hydralazine, Plavix,ASA,Imdur,Lipitor,Metoprolol.Maintain MAP>65. ID following recs reviewed;Continue Vancomycin Neurology; no need for further anti epileptics Pulmonary;Maintain O2 sat >95% Monitor electrolytes,correct as needed DVT ppx: Lovenox GI Ppx: Pepcid
[2018-11-21 05:50] LABS: BASO # 0.03 K/mm3 (0.0-2.0); BASO % 0.4 % (0.0-3.0); EOS # 0.3 (0.0-0.7); HEMOGLOBIN 10.3 g/dL (14.0-18.0); LYMPH # 0.4 (1.2-3.4); LYMPH % 5.5 % (22.0-35.0); MEAN CELL VOLUME 86.1 fl (80.0-105.0); MEAN CORPUSCULAR HGB CONC 30.2 g/dl (31.0-37.0); MEAN PLATELET VOLUME 11.7 fl (7.0-11.0); MONO # 0.6 (0.1-0.6); MONO % 8.3 % (1.0-6.0); RBC 3.96 10^6/uL (3.5-6.1); RED CELL DISTRIBUTION WIDTH 16.5 % (11.5-14.5); WHITE BLOOD COUNT 6.8 10^3/uL (4.5-11.0)
[2018-11-21 06:09] LABS: ARTERIAL BLOOD GAS HCO3 18.6 mmol/L (21-28); ARTERIAL BLOOD GAS HEMOGLOBIN 10.5 g/dL (11.7-17.4); ARTERIAL BLOOD GAS O2 CAPACITY 14.6 mL/dl (16-24); ARTERIAL BLOOD GAS O2 CONTENT 14.5 ML/dl (15-23); ARTERIAL BLOOD GAS O2 SAT 99.1 % (95-98); ARTERIAL BLOOD GAS PCO2 30 mm/Hg (35-45); ARTERIAL BLOOD GAS TCO2 19.5 mmol.L (22-28)
[2018-11-21 06:28] LABS: ALB/GLOB RATIO 0.8 (1.1-1.8); ALBUMIN 2.8 g/dL (3.0-4.8); ALT/SGPT 16 U/L (7-56); AST/SGOT 32 U/L (17-59); BLOOD UREA NITROGEN 27 mg/dL (7-21); CALCIUM 8.5 mg/dL (8.4-10.5); GFR NON-AFRICAN AMERICAN > 60
[2018-11-21] MEDS: Meropenem IV 1 gm in NS 1 GM/50 ML BAG IVPB SCH ×3 (06:49→21:44)
--- NOTE | 2018-11-21 08:45 | RAD ---
Date of service: 11/21/2018 HISTORY: f/u COMPARISON: 11/20/2018 TECHNIQUE: 1 view obtained. FINDINGS: LUNGS: No active pulmonary disease. PLEURA: No significant pleural effusion identified, no pneumothorax apparent. CARDIOVASCULAR: Aortic calcification Moderate cardiomegaly no pulmonary vascular congestion. OSSEOUS STRUCTURES: No significant abnormalities. VISUALIZED UPPER ABDOMEN: Normal. OTHER FINDINGS: Endotracheal and nasogastric tubes in satisfactory position IMPRESSION: No active disease.
--- NOTE | 2018-11-21 08:47 | PN ---
DATE: 11/21/2018(700am-750am) PULMONARY NOTE SUBJECTIVE: The patient remains on the ventilator. He remains lethargic. He does open his eyes at times. He does not follow commands. PHYSICAL EXAMINATION: VITALS: Temperature is 98.8, pulse is 78, respiratory rate 18/16, blood pressure 139/79. HEENT: Normocephalic, atraumatic. No JVD. CARDIOVASCULAR: Positive S1, S2. No S3 gallop. LUNGS: Decreased breath sounds at the bases. Very minimal/less rhonchi. No wheezing. EXTREMITIES: Mild edema. No cyanosis, no clubbing. GASTROINTESTINAL: Abdomen is soft, nontender, and nondistended. Bowel sounds are positive. SKIN: No acute rash. NEUROLOGIC: Limited at the present time. 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 The chest x-ray is improved this morning-- with decreased pulmonary vascular congestion. Official results are pending. Arterial blood gas was done on PRBC 16, tidal volume 400, FiO2 of 35%. Results are: PH 7.40, pCO2 of 30, pO2 of 122. IMPRESSION: 1. Ventricular fibrillation arrest. 2. Respiratory failure. 3. Myocardial infarction. 4. Advanced dilated cardiomyopathy. 5. Anemia. 6. Renal insufficiency. PLAN: The patient remains on the ventilator. He remains lethargic. He does open his eyes at times. He does not follow commands. I did discuss the case with the night nurse at length. The night nurse stated that the patient had an uneventful night. I did review the chest x-ray as above. The chest x-ray continues to improve. Official results are pending. I have also reviewed the arterial blood gas. The arterial blood gas also continues to improve with normalization of the pH, and a significant decrease in the alveolar arterial gradient. I will discuss the ventilator settings with the ICU team later this morning. The patient remains on antibiotic therapy - as per Infectious Disease. Temperatures have now resolved. Inputs by Renal and Cardiology are also noted. Clinical status of the patient is improved - compared to a few days ago. However, unfortunately, the future status/prognosis for this patient remains very guarded at best/poor. I will discuss the above with the entire ICU team in the next few moments. I will also discuss the above with the attending physician later this morning. Balta Burr MD MTDЮлия
--- NOTE | 2018-11-21 08:59 | PN ---
DATE: 11/21/2018 SUBJECTIVE: The patient is in bed, in no acute distress. PHYSICAL EXAMINATION: VITAL SIGNS: Temperature is 98, blood pressure is 139/79, respiratory rate of 18, heart rate of 83. HEENT: Unremarkable. NECK: Supple. LUNGS: Have decreased breath sounds. HEART: Normal S1, S2. ABDOMEN: Soft. LABORATORY EXAMINATION: Reveals a white count of 6.8, hemoglobin of 10, BUN of 27, creatinine of 1. Pro calcitonin 0.11. Urinalysis is noted. Microbiology is noted. The patient did have coag-negative staph bacteremia on admission, probably a contamination. Repeat cultures are no growth. also had a Proteus mirabilis in the urine. Review of orders reveals the patient to be on amiodarone, meropenem, IV vancomycin. Gerri Weaver's note is reviewed. ASSESSMENT AND PLAN: This is a 63-year-old with respiratory failure, intubated on the ventilator, status post cardiac arrest, most likely cardiogenic shock, did have a coagulase-negative staphylococci bacteremia. However, most consistent with a contamination and not a pathogen, status post ventricular tachycardia, status post shock. The patient is also with Proteus mirabilis in urinary tract infection. The patient did have a fever of 102 on 11/19/2018. Currently on meropenem day #5 and vancomycin day #5. We will be discontinuing the antibiotics within the next 24 hours. Satya Fernandes MD
--- NOTE | 2018-11-21 09:07 | CP.CCUPN ---
<Ismael Turner - Last Filed: 11/21/18 09:01> CCU Subjective - Physician Review Subjective (Free Text): Ismael Turner PGY-1 Critical Care Progress Note Patient seen and evaluated at bedside. No acute events reported overnight. Currently intubated. Patient lethargic but opens eyes upon calling his name. Further ROS unable to be obtained due to clinical condition. CCU Objective - Vital Signs / Intake & Output Vital Signs (Last 4 hours): Vital Signs Temp Pulse BP Pulse Ox 11/21/18 06:00 98.8 F 78 139/79 98 11/21/18 05:04 98.8 F 87 Intake and Output (Last 8hrs): Intake & Output 11/20/18 11/21/18 11/21/18 22:59 06:59 14:59 Intake Total 410 100 Output Total 800 1200 Balance -390 -1100 Weight 79.605 kg Intake: IV 100 Right Hand 100 Oral 410 Output: Urine 600 1200 Urethral (Ash) 600 1200 Stool 200 - Physical Exam Head: Positive for: Atraumatic, Normocephalic Pupils: Positive for: PERRL, Other (2mm, reactive) Conjunctiva: Positive for: Normal Mouth: Positive for: Dry, Other (Dobhoff in place in R nares) Pharnyx: Positive for: Other (ETT in place) Neck: Positive for: Trachea Midline. Negative for: JVD, Lymphadenopathy Respiratory/Chest: Positive for: Clear to Auscultation, Good Air Exchange, Respiratory Distress. Negative for: Accessory Muscle Use Cardiovascular: Positive for: Normal S1, S2. Negative for: Murmurs Abdomen: Positive for: Normal Bowel Sounds. Negative for: Tenderness Back: Positive for: Normal Inspection Upper Extremity: Positive for: Normal Inspection, Other (Midline in place in RUE). Negative for: Cyanosis, Edema Lower Extremity: Positive for: Normal Inspection. Negative for: Edema Neurological: Positive for: Other (minimal response to painful stimuli) Skin: Positive for: Warm, Dry, Pale. Negative for: Rashes Psychiatric: Positive for: Other (Obtunded). Negative for: Alert, Oriented x 3 - Medications Active Medications: Active Medications Generic Name Dose Route Start Last Admin Trade Name Freq PRN Reason Stop Dose Admin Amino Acid Protein 15 gm 11/20/18 18:00 11/20/18 18:44 Prostat 15 G Packet GT 15 gm BID JHON Administration Amiodarone HCl 400 mg 11/16/18 17:00 11/20/18 18:56 Cordarone PO 400 mg BRKDIN JHON Administration Ascorbic Acid 500 mg 11/18/18 18:00 11/20/18 18:56 Vitamin C Liq PO 500 mg BID JHON Administration Aspirin 81 mg 11/15/18 16:45 11/20/18 10:25 Aspirin Chewable PO 81 mg DAILY JHON Administration Atorvastatin Calcium 40 mg 11/16/18 14:50 11/20/18 18:56 Lipitor PO 40 mg DIN JOHN Administration Clopidogrel Bisulfate 75 mg 11/17/18 10:00 11/20/18 10:24 Plavix PO 75 mg DAILY JHON Administration Collagenase 0 gm 11/18/18 10:00 11/20/18 10:20 Santyl TOP 1 applic DAILY JHON Administration Dextrose 0 ml 11/15/18 16:18 Dextrose 50% Inj IV STAT PRN Hypoglycemia Protocol Protocol Enoxaparin Sodium 40 mg 11/18/18 10:00 11/20/18 10:24 Lovenox SC 40 mg DAILY JHON Administration Protocol Furosemide 40 mg 11/19/18 10:00 11/19/18 09:26 Lasix IVP Not Given DAILY JHON Hydralazine HCl 25 mg 11/15/18 10:00 11/18/18 21:54 Apresoline PO 25 mg QID JHON Administration Sodium Chloride 1,000 mls @ 100 mls/hr 11/14/18 19:00 11/15/18 06:00 Sodium Chloride 0.9% IV 100 mls/hr .Q10H JHON Administration Meropenem 1 gm in 50 mls @ 100 mls/hr 11/17/18 14:00 11/21/18 06:49 Merrem Iv 1 Gm Premix IVPB 11/26/18 14:01 100 mls/hr Q8 JHON Administration Protocol Propofol 1,000 mg in 100 mls @ 2.502 mls/hr 11/19/18 06:52 11/19/18 16:32 Diprivan IV Infused .Q24H PRN Titration TITRATE PER MD ORDER Protocol 5 MCG/KG/MIN Amiodarone HCl/Dextrose 360 mg in 200 mls @ 33.333 mls/hr 11/19/18 07:15 11/20/18 10:46 Nexterone 360 Mg In D5w 200 Ml (Premix) IV Not Given .Q6H JHON Protocol 1 MG/MIN Vancomycin HCl 1 gm in 250 mls @ 167 mls/hr 11/20/18 17:45 11/20/18 18:28 Vancomycin 1gm IVPB 167 mls/hr DAILY JHON Administration Protocol Insulin Human Regular 0 units 11/16/18 22:00 11/20/18 22:10 Humulin R Med SC Not Given ACHS JHON Protocol Levalbuterol HCl 1.25 mg 11/17/18 23:43 11/17/18 23:56 Xopenex IH 1.25 mg [id number] PRN Administration Shortness of Breath Lisinopril 2.5 mg 11/18/18 10:00 11/20/18 10:25 Zestril PO 2.5 mg DAILY JHON Administration Multivitamins/Minerals 1 tab 11/19/18 08:00 11/20/18 07:44 Therapeutic-M Tab PO 1 tab 0800 JHON Administration Ondansetron HCl 4 mg 11/15/18 04:15 11/15/18 05:03 Zofran Inj IVP 4 mg Q6H PRN Administration Nausea/Vomiting Pantoprazole Sodium 40 mg 11/21/18 10:00 Protonix Inj IVP DAILY [facility] Thiamine HCl 300 mg 11/16/18 17:00 11/20/18 10:25 Vitamin B1 Tab NG 300 mg DAILY JHON Administration Vitamin A 1 ea 11/17/18 14:51 11/17/18 15:10 Vitamin A & D Oint Ud Foilpak TOP 1 ea Q4H PRN Administration Dry skin - Patient Studies Lab Studies: Microbiology Studies 11/17/18 15:30 Blood Culture - Preliminary Blood NO GROWTH AFTER 3 DAYS 11/17/18 15:00 Blood Culture - Preliminary Blood NO GROWTH AFTER 3 DAYS Lab Studies 11/21/18 11/21/18 11/21/18 Range/Units 06:00 05:30 05:30 WBC 6.8 (4.5-11.0) 10^3/uL RBC 3.96 (3.5-6.1) 10^6/uL Hgb 10.3 L (14.0-18.0) g/dL Hct 34.1 L (42.0-52.0) % MCV 86.1 (80.0-105.0) fl MCH 26.0 (25.0-35.0) pg MCHC 30.2 L (31.0-37.0) g/dl RDW 16.5 H (11.5-14.5) % Plt Count 116 L (120.0-450.0) 10^3/uL MPV 11.7 H (7.0-11.0) fl Neut % (Auto) 80.8 H (50.0-68.0) % Lymph % (Auto) 5.5 L (22.0-35.0) % Aiken % (Auto) 8.3 H (1.0-6.0) % Eos % (Auto) 5.0 (1.5-5.0) % Baso % (Auto) 0.4 (0.0-3.0) % Lymph # (Auto) 0.4 L (1.2-3.4) Aiken # (Auto) 0.6 (0.1-0.6) Eos # (Auto) 0.3 (0.0-0.7) Baso # (Auto) 0.03 (0.0-2.0) K/mm3 Absolute Neuts (auto) 5.45 (1.4-6.5) pCO2 30 L (35-45) mm/Hg pO2 122.0 H (80-100) mm/Hg HCO3 18.6 L (21-28) mmol/L ABG pH 7.40 (7.35-7.45) ABG Total CO2 19.5 L (22-28) mmol.L ABG O2 Saturation 99.1 H (95-98) % ABG O2 Content 14.5 L (15-23) ML/dl ABG Base Excess -5.3 L (-2.0-3.0) mmol/L ABG Hemoglobin 10.5 L (11.7-17.4) g/dL ABG Carboxyhemoglobin 1.6 H (0.5-1.5) % POC ABG HHb (Measured) 0.9 (0-5) % ABG Methemoglobin 0.9 (0.0-3.0) % ABG O2 Capacity 14.6 L (16-24) mL/dl Hgb O2 Saturation 96.7 (95.0-98.0) % FiO2 35.0 % Sodium 152 H (132-148) mmol/L Potassium 3.8 (3.6-5.0) mmol/L Chloride 123 H (98-107) mmol/L Carbon Dioxide 21 (21-33) mmol/L Anion Gap 11 (10-20) BUN 27 H (7-21) mg/dL Creatinine 1.0 (0.8-1.5) mg/dl Est GFR ( Amer) > 60 Est GFR (Non-Af Amer) > 60 POC Glucose (mg/dL) (65-110) mg/dL Random Glucose 159 H (70-110) mg/dL Calcium 8.5 (8.4-10.5) mg/dL Phosphorus 3.5 (2.5-4.5) mg/dL Magnesium 2.0 (1.7-2.2) mg/dL Total Bilirubin 0.5 (0.2-1.3) mg/dL AST 32 (17-59) U/L ALT 16 (7-56) U/L Alkaline Phosphatase 86 (38-126) U/L Total Protein 6.2 (5.8-8.3) g/dL Albumin 2.8 L (3.0-4.8) g/dL Globulin 3.5 gm/dL Albumin/Globulin Ratio 0.8 L (1.1-1.8) Random Vancomycin ug/mL 11/20/18 11/20/18 11/20/18 Range/Units 22:26 16:36 16:04 WBC (4.5-11.0) 10^3/uL RBC (3.5-6.1) 10^6/uL Hgb (14.0-18.0) g/dL Hct (42.0-52.0) % MCV (80.0-105.0) fl MCH (25.0-35.0) pg MCHC (31.0-37.0) g/dl RDW (11.5-14.5) % Plt Count (120.0-450.0) 10^3/uL MPV (7.0-11.0) fl Neut % (Auto) (50.0-68.0) % Lymph % (Auto) (22.0-35.0) % Aiken % (Auto) (1.0-6.0) % Eos % (Auto) (1.5-5.0) % Baso % (Auto) (0.0-3.0) % Lymph # (Auto) (1.2-3.4) Aiken # (Auto) (0.1-0.6) Eos # (Auto) (0.0-0.7) Baso # (Auto) (0.0-2.0) K/mm3 Absolute Neuts (auto) (1.4-6.5) pCO2 (35-45) mm/Hg pO2 (80-100) mm/Hg HCO3 (21-28) mmol/L ABG pH (7.35-7.45) ABG Total CO2 (22-28) mmol.L ABG O2 Saturation (95-98) % ABG O2 Content (15-23) ML/dl ABG Base Excess (-2.0-3.0) mmol/L ABG Hemoglobin (11.7-17.4) g/dL ABG Carboxyhemoglobin (0.5-1.5) % POC ABG HHb (Measured) (0-5) % ABG Methemoglobin (0.0-3.0) % ABG O2 Capacity (16-24) mL/dl Hgb O2 Saturation (95.0-98.0) % FiO2 % Sodium (132-148) mmol/L Potassium (3.6-5.0) mmol/L Chloride (98-107) mmol/L Carbon Dioxide (21-33) mmol/L Anion Gap (10-20) BUN (7-21) mg/dL Creatinine (0.8-1.5) mg/dl Est GFR ( Amer) Est GFR (Non-Af Amer) POC Glucose (mg/dL) 151 H 149 H (65-110) mg/dL Random Glucose (70-110) mg/dL Calcium (8.4-10.5) mg/dL Phosphorus (2.5-4.5) mg/dL Magnesium (1.7-2.2) mg/dL Total Bilirubin (0.2-1.3) mg/dL AST (17-59) U/L ALT (7-56) U/L Alkaline Phosphatase (38-126) U/L Total Protein (5.8-8.3) g/dL Albumin (3.0-4.8) g/dL Globulin gm/dL Albumin/Globulin Ratio (1.1-1.8) Random Vancomycin 18.2 ug/mL 11/20/18 Range/Units 12:11 WBC (4.5-11.0) 10^3/uL RBC (3.5-6.1) 10^6/uL Hgb (14.0-18.0) g/dL Hct (42.0-52.0) % MCV (80.0-105.0) fl MCH (25.0-35.0) pg MCHC (31.0-37.0) g/dl RDW (11.5-14.5) % Plt Count (120.0-450.0) 10^3/uL MPV (7.0-11.0) fl Neut % (Auto) (50.0-68.0) % Lymph % (Auto) (22.0-35.0) % Aiken % (Auto) (1.0-6.0) % Eos % (Auto) (1.5-5.0) % Baso % (Auto) (0.0-3.0) % Lymph # (Auto) (1.2-3.4) Aiken # (Auto) (0.1-0.6) Eos # (Auto) (0.0-0.7) Baso # (Auto) (0.0-2.0) K/mm3 Absolute Neuts (auto) (1.4-6.5) pCO2 (35-45) mm/Hg pO2 (80-100) mm/Hg HCO3 (21-28) mmol/L ABG pH (7.35-7.45) ABG Total CO2 (22-28) mmol.L ABG O2 Saturation (95-98) % ABG O2 Content (15-23) ML/dl ABG Base Excess (-2.0-3.0) mmol/L ABG Hemoglobin (11.7-17.4) g/dL ABG Carboxyhemoglobin (0.5-1.5) % POC ABG HHb (Measured) (0-5) % ABG Methemoglobin (0.0-3.0) % ABG O2 Capacity (16-24) mL/dl Hgb O2 Saturation (95.0-98.0) % FiO2 % Sodium (132-148) mmol/L Potassium (3.6-5.0) mmol/L Chloride (98-107) mmol/L Carbon Dioxide (21-33) mmol/L Anion Gap (10-20) BUN (7-21) mg/dL Creatinine (0.8-1.5) mg/dl Est GFR ( Amer) Est GFR (Non-Af Amer) POC Glucose (mg/dL) 155 H (65-110) mg/dL Random Glucose (70-110) mg/dL Calcium (8.4-10.5) mg/dL Phosphorus (2.5-4.5) mg/dL Magnesium (1.7-2.2) mg/dL Total Bilirubin (0.2-1.3) mg/dL AST (17-59) U/L ALT (7-56) U/L Alkaline Phosphatase (38-126) U/L Total Protein (5.8-8.3) g/dL Albumin (3.0-4.8) g/dL Globulin gm/dL Albumin/Globulin Ratio (1.1-1.8) Random Vancomycin ug/mL Laboratory Results - last 24 hr 11/20/18 11/20/18 11/20/18 12:11 16:04 16:36 WBC RBC Hgb Hct MCV MCH MCHC RDW Plt Count MPV Neut % (Auto) Lymph % (Auto) Aiken % (Auto) Eos % (Auto) Baso % (Auto) Lymph # (Auto) Aiken # (Auto) Eos # (Auto) Baso # (Auto) Absolute Neuts (auto) pCO2 pO2 HCO3 ABG pH ABG Total CO2 ABG O2 Saturation ABG O2 Content ABG Base Excess ABG Hemoglobin ABG Carboxyhemoglobin POC ABG HHb (Measured) ABG Methemoglobin ABG O2 Capacity Hgb O2 Saturation FiO2 Sodium Potassium Chloride Carbon Dioxide Anion Gap BUN Creatinine Est GFR ( Amer) Est GFR (Non-Af Amer) POC Glucose (mg/dL) 155 H 149 H Random Glucose Calcium Phosphorus Magnesium Total Bilirubin AST ALT Alkaline Phosphatase Total Protein Albumin Globulin Albumin/Globulin Ratio Random Vancomycin 18.2 11/20/18 11/21/18 11/21/18 22:26 05:30 05:30 WBC 6.8 RBC 3.96 Hgb 10.3 L Hct 34.1 L MCV 86.1 MCH 26.0 MCHC 30.2 L RDW 16.5 H Plt Count 116 L MPV 11.7 H Neut % (Auto) 80.8 H Lymph % (Auto) 5.5 L Aiken % (Auto) 8.3 H Eos % (Auto) 5.0 Baso % (Auto) 0.4 Lymph # (Auto) 0.4 L Aiken # (Auto) 0.6 Eos # (Auto) 0.3 Baso # (Auto) 0.03 Absolute Neuts (auto) 5.45 pCO2 pO2 HCO3 ABG pH ABG Total CO2 ABG O2 Saturation ABG O2 Content ABG Base Excess ABG Hemoglobin ABG Carboxyhemoglobin POC ABG HHb (Measured) ABG Methemoglobin ABG O2 Capacity Hgb O2 Saturation FiO2 Sodium 152 H Potassium 3.8 Chloride 123 H Carbon Dioxide 21 Anion Gap 11 BUN 27 H Creatinine 1.0 Est GFR ( Amer) > 60 Est GFR (Non-Af Amer) > 60 POC Glucose (mg/dL) 151 H Random Glucose 159 H Calcium 8.5 Phosphorus 3.5 Magnesium 2.0 Total Bilirubin 0.5 AST 32 ALT 16 Alkaline Phosphatase 86 Total Protein 6.2 Albumin 2.8 L Globulin 3.5 Albumin/Globulin Ratio 0.8 L Random Vancomycin 11/21/18 06:00 WBC RBC Hgb Hct MCV MCH MCHC RDW Plt Count MPV Neut % (Auto) Lymph % (Auto) Aiken % (Auto) Eos % (Auto) Baso % (Auto) Lymph # (Auto) Aiken # (Auto) Eos # (Auto) Baso # (Auto) Absolute Neuts (auto) pCO2 30 L pO2 122.0 H HCO3 18.6 L ABG pH 7.40 ABG Total CO2 19.5 L ABG O2 Saturation 99.1 H ABG O2 Content 14.5 L ABG Base Excess -5.3 L ABG Hemoglobin 10.5 L ABG Carboxyhemoglobin 1.6 H POC ABG HHb (Measured) 0.9 ABG Methemoglobin 0.9 ABG O2 Capacity 14.6 L Hgb O2 Saturation 96.7 FiO2 35.0 Sodium Potassium Chloride Carbon Dioxide Anion Gap BUN Creatinine Est GFR ( Amer) Est GFR (Non-Af Amer) POC Glucose (mg/dL) Random Glucose Calcium Phosphorus Magnesium Total Bilirubin AST ALT Alkaline Phosphatase Total Protein Albumin Globulin Albumin/Globulin Ratio Random Vancomycin Radiology Impressions: Radiology Impressions Chest X-Ray 11/20/18 06:00 IMPRESSION: No active disease. Chest X-Ray 11/21/18 06:00 IMPRESSION: No active disease. Fingerstick Blood Sugar Results: 151 Review of Systems - Review of Systems Systems not reviewed;Unavailable: Intubated Critical Care Progress Note - Nutrition Nutrition: Nutrition Category Date Time Status NPO Diet [DIET] Diets 11/16/18 Lunch Ordered Assessment/Plan - Assessment and Plan (Free Text) Assessment: 63 year old male with a PMHx of severely dilated cardiomyopathy EF 14%, moderate pulmonary hypertension, paroxysmal atrial fibrillation, ITP normocytic anemia, DM II, hypertension, pseudogout, anxiety, PVD who was brought in by EMS as he was found pulseless in ventricular fibrillation. Patient was subsequently in respiratory failure s/p v-tach episodes on 11/19/18, at which point he was intubated. Cardiovascular -Hgb stable s/p 1 unit PRBC transfused 11/19/18 -Maintain MAP>65, afterload reduction -Lasix and Hydralazine on hold -Continue ASA/Plavix, ROBERTO -Continue Amiodarone PO -C/w lipitor 40mg po din -S/P cardiac arrest; troponin 25.80 -> 25.40 -> 24 >17 -BNP 22,500 -11/16/18 echo shows EF 20% -F/u 11/20/18 Echo report -Cardiology consulted - Dr. Saxena. 11.16.18 Cardiac cath 1 FRANCO in circumflex, 2 FRANCO in LAD. IABP removed 11/17. Further recs appreciated. -S/p midline placement in RUE Gastrintestinal -s/p Dobhoff placement -Tube feeds -Continue w Pepcid IV BID -Gastrotenterology consulted, Dr Hardy Infectious Disease -r/o HCAP versus urine as source -UA shows large Leukocyte esterase, Urine WBC Tntc, negative nitrate -Urine cx growing Proteus -cxr 11/15/18: * no active pulmonary dz, moderate cardiomegaly and pulmonary venous congestion -patient currently on Merrem q8 and Vanc 1g daily -procal 0.11 -Neg sputum cx -MRSA negative -Original Blood cx growing coag neg staph, repeat blood cx neg after 3 days -ID consulted, Dr Boghossian Neurologic -Continue to monitor in setting past history of critical illness polyneuropathy -11/16/18 vEEG: severe, non specific diffuse disturbance of cortical activity. This is in keeping with a diffuse hernandez matter dysfunction. No seizures or status presently. -Neurology (Dr. Mcdaniels) consulted for AMS- no need for further antiepileptics. C/w Thiamine 300 mg daily -CT head 11/15/18 * CT head 11/14: no acute intracrainal abnormality, chronic lacunar infarctions in right dennison radiata and basal ganglia, mild chronic microangiopathic changes and mild age related global parenchymal volume loss Pulmonary -Maintain O2 sat >90% -NC PRN -HOB greater than 30 degrees -11/21/18 ABG shows improved A-a gradient and acidosis -11/21/18 CXR confirms ETT and NGT placement -Pulmonology consulted, Dr Burr- recs appreciated Renal/ -Maintain euvolemia -UTI, Proteus on culture -Decrease Vanc frequency to 1 g daily, repeat level 11/23 -Monitor I&O -Replete electrolytes as needed Endocrine -Maintain euglycemia -mISS and accuchecks DVT ppx: Lovenox GI Ppx: PTX Code Status: DNR, signed by spouse An. Dispo: Will likely require trach and a LTAC Facility. Patient seen, case reviewed and plan approved by Dr. Ab Mitchell. Ismael Turner, PGY-1 <Junior Mitchell - Last Filed: 11/21/18 14:43> CCU Objective - Vital Signs / Intake & Output Vital Signs (Last 4 hours): Vital Signs Temp Pulse BP Pulse Ox 11/21/18 14:00 99.5 F 94 H 137/84 98 11/21/18 13:00 99.3 F 68 133/67 97 11/21/18 12:00 99.3 F 69 134/71 97 11/21/18 11:00 99.3 F 68 131/77 99 Intake and Output (Last 8hrs): Intake & Output 11/20/18 11/21/18 11/21/18 22:59 06:59 14:59 Intake Total 410 100 Output Total 800 1200 Balance -390 -1100 Weight 79.605 kg Intake: IV 100 Right Hand 100 Oral 410 Output: Urine 600 1200 Urethral (Ash) 600 1200 Stool 200 - Medications Active Medications: Active Medications Generic Name Dose Route Start Last Admin Trade Name Freq PRN Reason Stop Dose Admin Amino Acid Protein 15 gm 11/20/18 18:00 11/21/18 12:27 Prostat 15 G Packet GT 15 gm BID JHON Administration Amiodarone HCl 400 mg 11/16/18 17:00 11/21/18 09:08 Cordarone PO 400 mg BRKDIN JHON Administration Ascorbic Acid 500 mg 11/18/18 18:00 11/21/18 11:17 Vitamin C Liq PO 500 mg BID JHON Administration Aspirin 81 mg 11/15/18 16:45 11/21/18 09:10 Aspirin Chewable PO 81 mg DAILY JHON Administration Atorvastatin Calcium 40 mg 11/16/18 14:50 11/20/18 18:56 Lipitor PO 40 mg DIN JHON Administration Clopidogrel Bisulfate 75 mg 11/17/18 10:00 11/21/18 09:09 Plavix PO 75 mg DAILY JHON Administration Collagenase 0 gm 11/18/18 10:00 11/21/18 11:22 Santyl TOP 2 applic DAILY JHON Administration Dextrose 0 ml 11/15/18 16:18 Dextrose 50% Inj IV STAT PRN Hypoglycemia Protocol Protocol Enoxaparin Sodium 40 mg 11/18/18 10:00 11/21/18 09:11 Lovenox SC 40 mg DAILY JHON Administration Protocol Furosemide 40 mg 11/19/18 10:00 11/19/18 09:26 Lasix IVP Not Given DAILY JHON Hydralazine HCl 25 mg 11/15/18 10:00 11/18/18 21:54 Apresoline PO 25 mg QID JHON Administration Sodium Chloride 1,000 mls @ 100 mls/hr 11/14/18 19:00 11/15/18 06:00 Sodium Chloride 0.9% IV 100 mls/hr .Q10H JHON Administration Meropenem 1 gm in 50 mls @ 100 mls/hr 11/17/18 14:00 11/21/18 13:46 Merrem Iv 1 Gm Premix IVPB 11/26/18 14:01 100 mls/hr Q8 JHON Administration Protocol Vancomycin HCl 1 gm in 250 mls @ 167 mls/hr 11/20/18 17:45 11/21/18 10:00 Vancomycin 1gm IVPB 167 mls/hr DAILY JHON Administration Protocol Insulin Human Regular 0 units 11/16/18 22:00 11/21/18 12:25 Humulin R Med SC Not Given ACHS [facility] Protocol Levalbuterol HCl 1.25 mg 11/17/18 23:43 11/17/18 23:56 Xopenex IH 1.25 mg [id number] PRN Administration Shortness of Breath Lisinopril 2.5 mg 11/18/18 10:00 11/21/18 09:08 Zestril PO 2.5 mg DAILY JHON Administration Multivitamins/Minerals 1 tab 11/19/18 08:00 11/21/18 09:08 Therapeutic-M Tab PO 1 tab 0800 JHON Administration Ondansetron HCl 4 mg 11/15/18 04:15 11/15/18 05:03 Zofran Inj IVP 4 mg Q6H PRN Administration Nausea/Vomiting Pantoprazole Sodium 40 mg 11/21/18 10:00 11/21/18 09:11 Protonix Inj IVP 40 mg DAILY JHON Administration Thiamine HCl 300 mg 11/16/18 17:00 11/21/18 09:09 Vitamin B1 Tab NG 300 mg DAILY JHON Administration Vitamin A 1 ea 11/17/18 14:51 11/21/18 11:23 Vitamin A & D Oint Ud Foilpak TOP 1 ea Q4H PRN Administration Dry skin - Patient Studies Lab Studies: Microbiology Studies 11/17/18 15:30 Blood Culture - Preliminary Blood NO GROWTH AFTER 3 DAYS 11/17/18 15:00 Blood Culture - Preliminary Blood NO GROWTH AFTER 3 DAYS Lab Studies 11/21/18 11/21/18 11/21/18 Range/Units 11:30 06:00 05:30 WBC (4.5-11.0) 10^3/uL RBC (3.5-6.1) 10^6/uL Hgb (14.0-18.0) g/dL Hct (42.0-52.0) % MCV (80.0-105.0) fl MCH (25.0-35.0) pg MCHC (31.0-37.0) g/dl RDW (11.5-14.5) % Plt Count (120.0-450.0) 10^3/uL MPV (7.0-11.0) fl Neut % (Auto) (50.0-68.0) % Lymph % (Auto) (22.0-35.0) % Aiken % (Auto) (1.0-6.0) % Eos % (Auto) (1.5-5.0) % Baso % (Auto) (0.0-3.0) % Lymph # (Auto) (1.2-3.4) Aiken # (Auto) (0.1-0.6) Eos # (Auto) (0.0-0.7) Baso # (Auto) (0.0-2.0) K/mm3 Absolute Neuts (auto) (1.4-6.5) pCO2 30 L (35-45) mm/Hg pO2 122.0 H (80-100) mm/Hg HCO3 18.6 L (21-28) mmol/L ABG pH 7.40 (7.35-7.45) ABG Total CO2 19.5 L (22-28) mmol.L ABG O2 Saturation 99.1 H (95-98) % ABG O2 Content 14.5 L (15-23) ML/dl ABG Base Excess -5.3 L (-2.0-3.0) mmol/L ABG Hemoglobin 10.5 L (11.7-17.4) g/dL ABG Carboxyhemoglobin 1.6 H (0.5-1.5) % POC ABG HHb (Measured) 0.9 (0-5) % ABG Methemoglobin 0.9 (0.0-3.0) % ABG O2 Capacity 14.6 L (16-24) mL/dl Hgb O2 Saturation 96.7 (95.0-98.0) % FiO2 35.0 % Sodium 152 H (132-148) mmol/L Potassium 3.8 (3.6-5.0) mmol/L Chloride 123 H (98-107) mmol/L Carbon Dioxide 21 (21-33) mmol/L Anion Gap 11 (10-20) BUN 27 H (7-21) mg/dL Creatinine 1.0 (0.8-1.5) mg/dl Est GFR ( Amer) > 60 Est GFR (Non-Af Amer) > 60 POC Glucose (mg/dL) 189 H (65-110) mg/dL Random Glucose 159 H (70-110) mg/dL Calcium 8.5 (8.4-10.5) mg/dL Phosphorus 3.5 (2.5-4.5) mg/dL Magnesium 2.0 (1.7-2.2) mg/dL Total Bilirubin 0.5 (0.2-1.3) mg/dL AST 32 (17-59) U/L ALT 16 (7-56) U/L Alkaline Phosphatase 86 (38-126) U/L Total Protein 6.2 (5.8-8.3) g/dL Albumin 2.8 L (3.0-4.8) g/dL Globulin 3.5 gm/dL Albumin/Globulin Ratio 0.8 L (1.1-1.8) Random Vancomycin ug/mL 11/21/18 11/20/18 11/20/18 Range/Units 05:30 22:26 16:36 WBC 6.8 (4.5-11.0) 10^3/uL RBC 3.96 (3.5-6.1) 10^6/uL Hgb 10.3 L (14.0-18.0) g/dL Hct 34.1 L (42.0-52.0) % MCV 86.1 (80.0-105.0) fl MCH 26.0 (25.0-35.0) pg MCHC 30.2 L (31.0-37.0) g/dl RDW 16.5 H (11.5-14.5) % Plt Count 116 L (120.0-450.0) 10^3/uL MPV 11.7 H (7.0-11.0) fl Neut % (Auto) 80.8 H (50.0-68.0) % Lymph % (Auto) 5.5 L (22.0-35.0) % Aiken % (Auto) 8.3 H (1.0-6.0) % Eos % (Auto) 5.0 (1.5-5.0) % Baso % (Auto) 0.4 (0.0-3.0) % Lymph # (Auto) 0.4 L (1.2-3.4) Aiken # (Auto) 0.6 (0.1-0.6) Eos # (Auto) 0.3 (0.0-0.7) Baso # (Auto) 0.03 (0.0-2.0) K/mm3 Absolute Neuts (auto) 5.45 (1.4-6.5) pCO2 (35-45) mm/Hg pO2 (80-100) mm/Hg HCO3 (21-28) mmol/L ABG pH (7.35-7.45) ABG Total CO2 (22-28) mmol.L ABG O2 Saturation (95-98) % ABG O2 Content (15-23) ML/dl ABG Base Excess (-2.0-3.0) mmol/L ABG Hemoglobin (11.7-17.4) g/dL ABG Carboxyhemoglobin (0.5-1.5) % POC ABG HHb (Measured) (0-5) % ABG Methemoglobin (0.0-3.0) % ABG O2 Capacity (16-24) mL/dl Hgb O2 Saturation (95.0-98.0) % FiO2 % Sodium (132-148) mmol/L Potassium (3.6-5.0) mmol/L Chloride (98-107) mmol/L Carbon Dioxide (21-33) mmol/L Anion Gap (10-20) BUN (7-21) mg/dL Creatinine (0.8-1.5) mg/dl Est GFR ( Amer) Est GFR (Non-Af Amer) POC Glucose (mg/dL) 151 H (65-110) mg/dL Random Glucose (70-110) mg/dL Calcium (8.4-10.5) mg/dL Phosphorus (2.5-4.5) mg/dL Magnesium (1.7-2.2) mg/dL Total Bilirubin (0.2-1.3) mg/dL AST (17-59) U/L ALT (7-56) U/L Alkaline Phosphatase (38-126) U/L Total Protein (5.8-8.3) g/dL Albumin (3.0-4.8) g/dL Globulin gm/dL Albumin/Globulin Ratio (1.1-1.8) Random Vancomycin 18.2 ug/mL 11/20/18 11/20/18 Range/Units 16:04 12:11 WBC (4.5-11.0) 10^3/uL RBC (3.5-6.1) 10^6/uL Hgb (14.0-18.0) g/dL Hct (42.0-52.0) % MCV (80.0-105.0) fl MCH (25.0-35.0) pg MCHC (31.0-37.0) g/dl RDW (11.5-14.5) % Plt Count (120.0-450.0) 10^3/uL MPV (7.0-11.0) fl Neut % (Auto) (50.0-68.0) % Lymph % (Auto) (22.0-35.0) % Aiken % (Auto) (1.0-6.0) % Eos % (Auto) (1.5-5.0) % Baso % (Auto) (0.0-3.0) % Lymph # (Auto) (1.2-3.4) Aiken # (Auto) (0.1-0.6) Eos # (Auto) (0.0-0.7) Baso # (Auto) (0.0-2.0) K/mm3 Absolute Neuts (auto) (1.4-6.5) pCO2 (35-45) mm/Hg pO2 (80-100) mm/Hg HCO3 (21-28) mmol/L ABG pH (7.35-7.45) ABG Total CO2 (22-28) mmol.L ABG O2 Saturation (95-98) % ABG O2 Content (15-23) ML/dl ABG Base Excess (-2.0-3.0) mmol/L ABG Hemoglobin (11.7-17.4) g/dL ABG Carboxyhemoglobin (0.5-1.5) % POC ABG HHb (Measured) (0-5) % ABG Methemoglobin (0.0-3.0) % ABG O2 Capacity (16-24) mL/dl Hgb O2 Saturation (95.0-98.0) % FiO2 % Sodium (132-148) mmol/L Potassium (3.6-5.0) mmol/L Chloride (98-107) mmol/L Carbon Dioxide (21-33) mmol/L Anion Gap (10-20) BUN (7-21) mg/dL Creatinine (0.8-1.5) mg/dl Est GFR ( Amer) Est GFR (Non-Af Amer) POC Glucose (mg/dL) 149 H 155 H (65-110) mg/dL Random Glucose (70-110) mg/dL Calcium (8.4-10.5) mg/dL Phosphorus (2.5-4.5) mg/dL Magnesium (1.7-2.2) mg/dL Total Bilirubin (0.2-1.3) mg/dL AST (17-59) U/L ALT (7-56) U/L Alkaline Phosphatase (38-126) U/L Total Protein (5.8-8.3) g/dL Albumin (3.0-4.8) g/dL Globulin gm/dL Albumin/Globulin Ratio (1.1-1.8) Random Vancomycin ug/mL Laboratory Results - last 24 hr 11/20/18 11/20/18 11/20/18 12:11 16:04 16:36 WBC RBC Hgb Hct MCV MCH MCHC RDW Plt Count MPV Neut % (Auto) Lymph % (Auto) Aiken % (Auto) Eos % (Auto) Baso % (Auto) Lymph # (Auto) Aiken # (Auto) Eos # (Auto) Baso # (Auto) Absolute Neuts (auto) pCO2 pO2 HCO3 ABG pH ABG Total CO2 ABG O2 Saturation ABG O2 Content ABG Base Excess ABG Hemoglobin ABG Carboxyhemoglobin POC ABG HHb (Measured) ABG Methemoglobin ABG O2 Capacity Hgb O2 Saturation FiO2 Sodium Potassium Chloride Carbon Dioxide Anion Gap BUN Creatinine Est GFR ( Amer) Est GFR (Non-Af Amer) POC Glucose (mg/dL) 155 H 149 H Random Glucose Calcium Phosphorus Magnesium Total Bilirubin AST ALT Alkaline Phosphatase Total Protein Albumin Globulin Albumin/Globulin Ratio Random Vancomycin 18.2 11/20/18 11/21/18 11/21/18 22:26 05:30 05:30 WBC 6.8 RBC 3.96 Hgb 10.3 L Hct 34.1 L MCV 86.1 MCH 26.0 MCHC 30.2 L RDW 16.5 H Plt Count 116 L MPV 11.7 H Neut % (Auto) 80.8 H Lymph % (Auto) 5.5 L Aiken % (Auto) 8.3 H Eos % (Auto) 5.0 Baso % (Auto) 0.4 Lymph # (Auto) 0.4 L Aiken # (Auto) 0.6 Eos # (Auto) 0.3 Baso # (Auto) 0.03 Absolute Neuts (auto) 5.45 pCO2 pO2 HCO3 ABG pH ABG Total CO2 ABG O2 Saturation ABG O2 Content ABG Base Excess ABG Hemoglobin ABG Carboxyhemoglobin POC ABG HHb (Measured) ABG Methemoglobin ABG O2 Capacity Hgb O2 Saturation FiO2 Sodium 152 H Potassium 3.8 Chloride 123 H Carbon Dioxide 21 Anion Gap 11 BUN 27 H Creatinine 1.0 Est GFR ( Amer) > 60 Est GFR (Non-Af Amer) > 60 POC Glucose (mg/dL) 151 H Random Glucose 159 H Calcium 8.5 Phosphorus 3.5 Magnesium 2.0 Total Bilirubin 0.5 AST 32 ALT 16 Alkaline Phosphatase 86 Total Protein 6.2 Albumin 2.8 L Globulin 3.5 Albumin/Globulin Ratio 0.8 L Random Vancomycin 11/21/18 11/21/18 06:00 11:30 WBC RBC Hgb Hct MCV MCH MCHC RDW Plt Count MPV Neut % (Auto) Lymph % (Auto) Aiken % (Auto) Eos % (Auto) Baso % (Auto) Lymph # (Auto) Aiken # (Auto) Eos # (Auto) Baso # (Auto) Absolute Neuts (auto) pCO2 30 L pO2 122.0 H HCO3 18.6 L ABG pH 7.40 ABG Total CO2 19.5 L ABG O2 Saturation 99.1 H ABG O2 Content 14.5 L ABG Base Excess -5.3 L ABG Hemoglobin 10.5 L ABG Carboxyhemoglobin 1.6 H POC ABG HHb (Measured) 0.9 ABG Methemoglobin 0.9 ABG O2 Capacity 14.6 L Hgb O2 Saturation 96.7 FiO2 35.0 Sodium Potassium Chloride Carbon Dioxide Anion Gap BUN Creatinine Est GFR ( Amer) Est GFR (Non-Af Amer) POC Glucose (mg/dL) 189 H Random Glucose Calcium Phosphorus Magnesium Total Bilirubin AST ALT Alkaline Phosphatase Total Protein Albumin Globulin Albumin/Globulin Ratio Random Vancomycin Radiology Impressions: Radiology Impressions Chest X-Ray 11/21/18 06:00 IMPRESSION: No active disease. Critical Care Progress Note - Nutrition Nutrition: Nutrition Category Date Time Status NPO Diet [DIET] Diets 11/16/18 Lunch Ordered Addendum Addendum: 11/21/18 14:42 MICU Attending addendum Patient seen and examined with housestaff Agree with resident note above with the follow add/exceptions 63M hx of DM, HTN, obesity, smoking, dilated cardiomyopathy EF 14%, moderate pulmonary hypertension, paroxysmal atrial fibrillation, ITP normocytic anemia, recently trachd 2/2 influenza then deccanulated however few days later suffered s/p Vfib cardiac arrest, s/p ROSC, s/p hypothermic protocol. Had cardiac cath with 3 stents, with IABP, now removed . patient failed extubation. At this point he will require a trach again or go down a hospice route and extubate which would likely lead to his demise. Awaiting further family discussion; pal care on board for now will cont supportive care and vent support, low tidal vol ventilaiton, abx as per ID, Merrem, Vanco ASA, Plavix, Statin, Lasix On amio f/u cardio recs GI ppx DVT ppx, HSQ Rest of care as per above resident note Junior Mitchell MD MICU Attending
[2018-11-21] MEDS: Multivitamin With Minerals Tab PO SCH (09:08)
[2018-11-21] MEDS: Insulin Reg-MEDIUM-Coverage SC SCH ×4 (09:11→23:05)
[2018-11-21] MEDS: Enoxaparin 40 mg Syringe SC SCH (09:11)
[2018-11-21] MEDS: Vancomycin 1gm in NS 250ml 1 GM/250 ML BAG IVPB SCH (10:00)
--- NOTE | 2018-11-21 10:39 | CP.PCM.PN ---
<Eugene Ray - Last Filed: 11/21/18 10:49> Subjective - Date & Time of Evaluation Date of Evaluation: 11/21/18 Time of Evaluation: 10:00 - Subjective Subjective: PGY5 GI Follow-up Pt seen and examined bedside still intubated, sedation No acute events overnight. Rectal tube, revealed no gross bleeding ROS: could not be conducted, 2/2 intubaton and sedation Objective - Vital Signs/Intake and Output Vital Signs (last 24 hours): Temp Pulse Resp BP Pulse Ox 99.1 F 76 21 136/80 99 11/21/18 09:00 11/21/18 09:08 11/20/18 07:08 11/21/18 09:08 11/21/18 09:00 Intake and Output: 11/21/18 11/21/18 06:59 18:59 Intake Total 510 Output Total 2000 Balance -1490 - Medications Medications: Current Medications Amino Acid Protein (Prostat 15 G Packet) 15 gm GT BID [facility] Last Admin: 11/20/18 18:44 Dose: 15 gm Amiodarone HCl (Cordarone) 400 mg PO BRKDIN [facility] Last Admin: 11/21/18 09:08 Dose: 400 mg Ascorbic Acid (Vitamin C Liq) 500 mg PO BID [facility] Last Admin: 11/20/18 18:56 Dose: 500 mg Aspirin (Aspirin Chewable) 81 mg PO DAILY [facility] Last Admin: 11/21/18 09:10 Dose: 81 mg Atorvastatin Calcium (Lipitor) 40 mg PO DIN [facility] Last Admin: 11/20/18 18:56 Dose: 40 mg Clopidogrel Bisulfate (Plavix) 75 mg PO DAILY [facility] Last Admin: 11/21/18 09:09 Dose: 75 mg Collagenase (Santyl) 0 gm TOP DAILY [facility] Last Admin: 11/20/18 10:20 Dose: 1 applic Dextrose (Dextrose 50% Inj) 0 ml IV STAT PRN; Protocol PRN Reason: Hypoglycemia Protocol Enoxaparin Sodium (Lovenox) 40 mg SC DAILY [facility]; Protocol Last Admin: 11/21/18 09:11 Dose: 40 mg Furosemide (Lasix) 40 mg IVP DAILY [facility] Last Admin: 11/19/18 09:26 Dose: Not Given Hydralazine HCl (Apresoline) 25 mg PO QID [facility] Last Admin: 11/18/18 21:54 Dose: 25 mg Sodium Chloride (Sodium Chloride 0.9%) 1,000 mls @ 100 mls/hr IV .Q10H [facility] Last Admin: 11/15/18 06:00 Dose: 100 mls/hr Meropenem (Merrem Iv 1 Gm Premix) 1 gm in 50 mls @ 100 mls/hr IVPB Q8 [facility]; Protocol Stop: 11/26/18 14:01 Last Admin: 11/21/18 06:49 Dose: 100 mls/hr Vancomycin HCl (Vancomycin 1gm) 1 gm in 250 mls @ 167 mls/hr IVPB DAILY [facility]; Protocol Last Admin: 11/20/18 18:28 Dose: 167 mls/hr Insulin Human Regular (Humulin R Med) 0 units SC ACHS [facility]; Protocol Last Admin: 11/21/18 09:11 Dose: Not Given Levalbuterol HCl (Xopenex) 1.25 mg IH [id number] PRN PRN Reason: Shortness of Breath Last Admin: 11/17/18 23:56 Dose: 1.25 mg Lisinopril (Zestril) 2.5 mg PO DAILY [facility] Last Admin: 11/21/18 09:08 Dose: 2.5 mg Multivitamins/Minerals (Therapeutic-M Tab) 1 tab PO 0800 [facility] Last Admin: 11/21/18 09:08 Dose: 1 tab Ondansetron HCl (Zofran Inj) 4 mg IVP Q6H PRN PRN Reason: Nausea/Vomiting Last Admin: 11/15/18 05:03 Dose: 4 mg Pantoprazole Sodium (Protonix Inj) 40 mg IVP DAILY [facility] Last Admin: 11/21/18 09:11 Dose: 40 mg Thiamine HCl (Vitamin B1 Tab) 300 mg NG DAILY [facility] Last Admin: 11/21/18 09:09 Dose: 300 mg Vitamin A (Vitamin A & D Oint Ud Foilpak) 1 ea TOP Q4H PRN PRN Reason: Dry skin Last Admin: 11/17/18 15:10 Dose: 1 ea - Labs Labs: 11/21/18 05:30 11/21/18 05:30 PT 14.4 SECONDS (9.4-12.5) H 11/14/18 18:19 INR 1.30 11/14/18 18:19 APTT 45.9 Seconds (26.9-38.3) H 11/17/18 10:20 - Constitutional Appears: No Acute Distress, Chronically Ill - Head Exam Head Exam: ATRAUMATIC, NORMOCEPHALIC - Eye Exam Eye Exam: Normal appearance - ENT Exam ENT Exam: Mucous Membranes Moist, Normal Exam - Respiratory Exam Respiratory Exam: Clear to Ausculation Bilateral, NORMAL BREATHING PATTERN. absent: Rales, Rhonchi, Wheezes, Respiratory Distress - Cardiovascular Exam Cardiovascular Exam: REGULAR RHYTHM, +S1, +S2 - GI/Abdominal Exam GI & Abdominal Exam: Soft, Normal Bowel Sounds. absent: Distended, Guarding, Rigid, Tenderness, Mass, Organomegaly, Rebound - Extremities Exam Extremities Exam: absent: Joint Swelling, Pedal Edema - Neurological Exam Neurological Exam: Altered - Psychiatric Exam Additional comments: cannot assess - Skin Skin Exam: Dry, Intact, Normal Color, Warm Assessment and Plan - Assessment and Plan (Free Text) Assessment: Patient is a 63-year-old white male with a past medical history of biventricular CHF, atrial fibrillation, diabetes type 2, hypertension, GERD, ITP (on TPO agonist), pseudogout, anxiety, COPD, CKD who was admitted for evaluation and treatment s/p cardiac arrest in the field. GI consulted for anemia/possible GI bleed. Chronic normocytic anemia:hemoglobin near baseline s/p 1 additional unit of pRBCs yesterday with appropriate response cardiac arrest - continue to monitor hemoglobin - continue to protonix 40mg IV daily - follow up cardiac workup - no plan for further endoscopy at this time will d/w Dr. Hardy. <Kiko Hardy V - Last Filed: 11/21/18 23:06> Objective - Vital Signs/Intake and Output Vital Signs (last 24 hours): Temp Pulse Resp BP Pulse Ox 99.5 F 93 H 21 133/60 97 11/21/18 18:00 11/21/18 18:21 11/20/18 07:08 11/21/18 18:21 11/21/18 18:00 Intake and Output: 11/21/18 11/22/18 18:59 06:59 Intake Total 900 Output Total 620 Balance 280 - Medications Medications: Current Medications Amino Acid Protein (Prostat 15 G Packet) 15 gm GT BID [facility] Last Admin: 11/21/18 18:22 Dose: 15 gm Amiodarone HCl (Cordarone) 400 mg PO BRKDIN [facility] Last Admin: 11/21/18 18:21 Dose: 400 mg Ascorbic Acid (Vitamin C Liq) 500 mg PO BID [facility] Last Admin: 11/21/18 18:22 Dose: 500 mg Aspirin (Aspirin Chewable) 81 mg PO DAILY [facility] Last Admin: 11/21/18 09:10 Dose: 81 mg Atorvastatin Calcium (Lipitor) 40 mg PO DIN [facility] Last Admin: 11/21/18 18:22 Dose: 40 mg Clopidogrel Bisulfate (Plavix) 75 mg PO DAILY [facility] Last Admin: 11/21/18 09:09 Dose: 75 mg Collagenase (Santyl) 0 gm TOP DAILY [facility] Last Admin: 11/21/18 11:22 Dose: 2 applic Dextrose (Dextrose 50% Inj) 0 ml IV STAT PRN; Protocol PRN Reason: Hypoglycemia Protocol Enoxaparin Sodium (Lovenox) 40 mg SC DAILY [facility]; Protocol Last Admin: 11/21/18 09:11 Dose: 40 mg Furosemide (Lasix) 40 mg IVP DAILY [facility] Last Admin: 11/19/18 09:26 Dose: Not Given Hydralazine HCl (Apresoline) 25 mg PO QID [facility] Last Admin: 11/18/18 21:54 Dose: 25 mg Sodium Chloride (Sodium Chloride 0.9%) 1,000 mls @ 100 mls/hr IV .Q10H [facility] Last Admin: 11/15/18 06:00 Dose: 100 mls/hr Meropenem (Merrem Iv 1 Gm Premix) 1 gm in 50 mls @ 100 mls/hr IVPB Q8 [facility]; Prot ocol Stop: 11/26/18 14:01 Last Admin: 11/21/18 21:44 Dose: 100 mls/hr Vancomycin HCl (Vancomycin 1gm) 1 gm in 250 mls @ 167 mls/hr IVPB DAILY [facility]; Protocol Last Admin: 11/21/18 10:00 Dose: 167 mls/hr Insulin Human Regular (Humulin R Med) 0 units SC ACHS [facility]; Protocol Last Admin: 11/21/18 18:23 Dose: Not Given Levalbuterol HCl (Xopenex) 1.25 mg IH [id number] PRN PRN Reason: Shortness of Breath Last Admin: 11/17/18 23:56 Dose: 1.25 mg Lisinopril (Zestril) 2.5 mg PO DAILY [facility] Last Admin: 11/21/18 09:08 Dose: 2.5 mg Multivitamins/Minerals (Therapeutic-M Tab) 1 tab PO 0800 [facility] Last Admin: 11/21/18 09:08 Dose: 1 tab Ondansetron HCl (Zofran Inj) 4 mg IVP Q6H PRN PRN Reason: Nausea/Vomiting Last Admin: 11/15/18 05:03 Dose: 4 mg Pantoprazole Sodium (Protonix Inj) 40 mg IVP DAILY [facility] Last Admin: 11/21/18 09:11 Dose: 40 mg Thiamine HCl (Vitamin B1 Tab) 300 mg NG DAILY [facility] Last Admin: 11/21/18 09:09 Dose: 300 mg Vitamin A (Vitamin A & D Oint Ud Foilpak) 1 ea TOP Q4H PRN PRN Reason: Dry skin Last Admin: 11/21/18 11:23 Dose: 1 ea - Labs Labs: 11/21/18 05:30 11/21/18 05:30 PT 14.4 SECONDS (9.4-12.5) H 11/14/18 18:19 INR 1.30 11/14/18 18:19 APTT 45.9 Seconds (26.9-38.3) H 11/17/18 10:20 Attending/Attestation - Attestation I have personally seen and examined this patient.: Yes I have fully participated in the care of the patient.: Yes I have reviewed all pertinent clinical information, including history, physical exam and plan: Yes Notes (Text): This is an addendum to the GI progress report dictated by the fellow. The patient was evaluated earlier. Hemoglobin remained stable. Continue PPI Patient has a rectal tube. Request stool for C. difficile which has been ordered now Discussed with the ICU nursing staff regarding the rectal tube and to discontinue if there is no significant diarrhea and also periodic decompression 11/21/18 23:04
[2018-11-21] MEDS: Ascorbic Acid 500 mg/5 ml Liq(50 ml) PO SCH ×2 (11:17→18:22)
[2018-11-21] MEDS: Collagenase 250 Units/gm Ointment(30 gm) TOP SCH (11:22)
[2018-11-21] MEDS: Vitamins A & D Oint UD Foilpak TOP PRN (11:23)
--- NOTE | 2018-11-21 12:18 | PN ---
DATE: 11/21/2018 SUBJECTIVE: The patient remains on a ventilator, sedated. PHYSICAL EXAMINATION: VITAL SIGNS: Blood pressure 136/80, heart rate is in the 70s. NECK: Negative JVD. LUNGS: Without rales. HEART: S1, S2. EXTREMITIES: Without edema. LABORATORY DATA: BUN and creatinine are unremarkable. Glucose is 159, hemoglobin is 10.5. IMPRESSION: 1. Respiratory failure. 2. Status post ventricular fibrillation arrest. 3. Ischemic dilated cardiomyopathy with an ejection fraction of under 20%. 4. History of multivessel percutaneous transluminal coronary angioplasty and stent. 5. Hypercholesterolemia. 6. Chronic obstructive pulmonary disease. 7. Anoxic encephalopathy. PLAN: Given these findings, we will continue supportive care. The patient is hemodynamically stable on a ventilator. Bnejamin Saxena MD
[2018-11-21] MEDS: Prostat 15 g packet GT SCH ×2 (12:27→18:22)
--- NOTE | 2018-11-21 13:30 | PN ---
DATE: 11/21/2018 LOCATION: The patient is once again seen intubated in ICU, bed 5. SUBJECTIVE: He is not responsive to verbal or tactile stimulation or communication. Eyes are closed. He is being fed by Dobbhoff tube. He is receiving extra oral fluid hydration through the Dobbhoff tube. He has had no further episodes of V-tach in the last 24 hours. The patient is now a DNR. MEDICATIONS: Medication list reviewed. He is currently on aspirin, amiodarone, Diprivan, insulin, Lipitor, Lovenox, meropenem, Plavix, Protonix, Santyl, vitamins, IV vancomycin, Xopenex, lisinopril and p.r.n. Zofran. OBJECTIVE: INTAKE/OUTPUT: Intake is 510. Output is 2000. This is likely not complete as it does not take into account the oral hydration he is getting through the Dobbhoff tube. VITAL SIGNS: Blood pressure 139/79, temperature 98.8, respiratory rate is 21 on the ventilator with a temperature of 98.8. HEENT: Eyes are closed. The patient is on a ventilator. He is intubated. Dobbhoff tube is in place. NECK: No neck vein distention. CHEST: Clear to auscultation and percussion with scattered rhonchi. No rales or wheezing. CARDIOVASCULAR: Regular rate and rhythm with no S3, no S4. Positive MR/TR/AI. No rub. ABDOMEN: Soft. Bowel sounds normal. No rebound, guarding or masses. EXTREMITIES: No lower extremity cyanosis, clubbing or edema. NEURO: Shows him to be unresponsive to verbal and tactile stimulation. LABORATORY DATA: CBC, white blood cell count 6.8, hemoglobin 10.3 with a platelet count of 116,000. Blood gas today; pH 7.40 with a pCO2 of 30 with pO2 of 122. Chemistries today show sodium which remains at 152. Chloride is 123. Potassium is 3.8. BUN is excellent at 27 with a creatinine of 1, glucose is 159. Calcium 8.5, phosphorus 3.5, magnesium 2. Liver enzymes are acceptable. Bilirubin is low at 0.5. Albumin remains low at 2.8. Microbiology, urine positive for Proteus. Blood cultures are positive for coag-negative Staph. Followup blood cultures at 72 hours were negative. ASSESSMENT: 1. Severe cardiomyopathy status post intra-aortic balloon pump status post ventricular tachycardia requiring cardioversion 48 hours ago. As above short and watermelon inspector cardiac prognosis is extremely poor. He is status post therapeutic hypothermia. He remains on the ventilator and weaning attempts have been futile. 2. History of chronic kidney disease stage III. Renal parameters are certainly acceptable. Creatinine remains low. The patient did have an improvement in his cardiac output with the placement of the intra-aortic balloon pump with improved perfusion of the kidneys. We will continue to monitor renal parameters on a regular basis as these will likely worsen. 3. History of [id number] diabetes mellitus. The patient remains on sliding scale insulin. 4. Sepsis with positive blood cultures and urinary tract infection. The patient is completing a course of antibiotic therapy. 5. History of paroxysmal atrial fibrillation. The patient is currently in sinus rhythm. 6. History of pulmonary hypertension, severe. 7. History of valvular heart disease MR/AI/TR. 8. History of anemia. Hemoglobin stable at 10.3. 9. Mild hypernatremia with an abnormal potassium level. The patient should continue to receive water via the Dobbhoff tube. This was discussed with the staff in the ICU. This needs to be charted. PLAN: 1. Continue present level of care. 2. Family is aware of the of the poor prognosis. 3. DNR noted. 4. Continue to monitor sugars. Keep the patient on sliding scale insulin. 5. Complete a course of antibiotics. 6. Monitoring his vancomycin levels and adjusting the antibiotics accordingly. This was discussed with the house staff. Avoid all nephrotoxic agents. 7. Close renal followup. Margarito Mcnamara MD MTDD
[2018-11-21] MEDS ORDERED: Propofol 10 mg/ml Inj (20 ML) ONE (21:27)
[2018-11-21] MEDS ORDERED: Etomidate 20 mg/10ml Inj IV ONE (21:27)
[2018-11-21] MEDS ORDERED: Midazolam 2 MG/2 ML VIAL ONE (21:27)
[2018-11-21] MEDS ORDERED: Rocuronium 10 mg/ml (5 ml) ONE (21:27)
[2018-11-22 03:40] VITALS: BP 121/47; TEMP 99.5
[2018-11-22] MEDS ORDERED: Amiodarone 150 mg/D5W 100 ml 150 MG/100 ML BAG ONE (04:07)
[2018-11-22 06:03] VITALS: PULSE 96; RESP 10; O2SAT 67
--- NOTE | 2018-11-22 09:22 | CP.PCM.PRO ---
<AndreyIndra - Last Filed: 11/22/18 09:20> Pronouncement of Note - Clinical Findings Physical Exam: No Response Verbal/Painful Stimuli, Absent Peripheral Pulses{Carotid & Femoral}, Absent Heart & Breath Sounds, No Pupillary Light Reflex, No Corneal Reflex, Absence of Vital Signs - Pronouncement Time Time of Pronouncement of : 04:19 - Notifications Pronouncement Notifications: Family Notified, Atending Notified Personal Financial Planner Notified: No - Autopsy Autopsy Requested: No - [place] [id number] <Ros Rao - Last Filed: 11/22/18 19:01> Attending/Attestation - Attestation I have personally seen and examined this patient.: Yes I have fully participated in the care of the patient.: Yes I have reviewed all pertinent clinical information: Yes
--- NOTE | 2018-11-22 18:15 | CARD ---
APPROVED REPORT Date of service: 11/22/2018 EKG Measurement Heart [id number] <Conclusion> Sinus rhythm with frequent and consecutive premature ventricular complexes Nonspecific intraventricular conduction delay ST & T wave abnormalities CCR Abnormal ECG
--- NOTE | 2018-11-23 08:57 | PN ---
SUBJECTIVE: The patient was seen and examined at bedside in the CCU. No acute events overnight. He remains intubated but off sedation and otherwise clinically unchanged. OBJECTIVE: VITAL SIGNS: Temperature 98.8, pulse 78, blood pressure 139/79, respiratory rate 20, oxygen saturation 98% on 35% FIO2. GENERAL: Intubated. HEENT: PERRL. No scleral icterus. NECK: No JVD. LUNGS: Coarse anterior breath sounds. CARDIOVASCULAR: Regular rate and rhythm. Normal S1, S2. ABDOMEN: Normoactive bowel sounds, soft, nontender, nondistended. EXTREMITIES: Trace pedal edema bilaterally. NEUROLOGIC: Intubated, lethargic but arousable. LABORATORY DATA: Morning labs are pending. ASSESSMENT: The patient is a 63-year-old man with multiple medical comorbidities who was admitted to the CCU s/p Vfib arrest and who was re-intubated secondary to impending respiratory failure with recurrent ventricular tachycardia. PLAN: 1. V-fib arrest. Input from Dr. Saxena noted. Continue with care as per Dr. Saxena. Input from Gerri Weaver of Palliative Care is noted and appreciated. 2. Ventricular tachycardia. Amiodarone infusion remains on hold. Continue with care as per Dr. Saxena. 3. Cardiogenic shock, resolved. The patient remains off ionotropic support and vasopressors. 4. CAD s/p PCI with multiple stent placement. Continue Aspirin 81 mg p.o. daily, Plavix 75 mg p.o. daily, Lipitor 40 mg p.o. daily and Lisinopril 2.5 mg p.o. daily. 5. Dilated ischemic cardiomyopathy. Continue with care as above. 6. Acute hypoxic respiratory failure. Continue with care as per CCU team. Continue with daily weaning trials. 7. Acute kidney injury, resolved. 8. Paroxysmal atrial fibrillation. 9. Normocytic anemia. 10. Type 2 diabetes mellitus. 11. Hypertension. 12. Thrombocytopenia secondary to ITP. 13. Anxiety disorder. 14. Continue prophylaxis. Continue with Protonix for GI prophylaxis and Heparin for DVT prophylaxis. CODE STATUS: DNR. Yassine Martinez MD [facility] # [id number] MTDD
--- NOTE | 2018-11-23 15:54 | CON ---
DATE OF CONSULTATION: 11/15/2018 PULMONARY CONSULTATION NOTE This is a re-dictation of a consult previously done on 11/14/2018. I had seen the patient, Margarito Damon, in the Intensive Care Unit. The case has been discussed at length with Dr. Blake Casanova, the [employer] Writer caring for the patient in the unit. The patient is intubated on mechanical ventilation. The patient's family were discussing the DNR/DNI status with Dr. Casanova at that time. Mr. Damon is 63 years old. He has a history of congestive heart failure and chronic obstructive pulmonary disease. He was found unresponsive at home. He was brought via ambulance to the hospital where he was transferred to the Intensive Care Unit. He remained in septic shock at this time, and his general status is in extremis. PAST MEDICAL HISTORY: As described above. History of cardiopulmonary arrest with septic shock, history of chronic obstructive pulmonary disease, hypertension, diabetes mellitus, and congestive heart failure. FAMILY HISTORY: Coronary artery disease, chronic obstructive pulmonary disease. SOCIAL HISTORY: The patient continues to smoke cigarettes, the exact amount is unknown at this time. MEDICATIONS AT HOME: Include metformin and digoxin. He is on metoprolol, Januvia, and Cardizem. His respiratory medications are not known. ALLERGIES: NO KNOWN ALLERGIES. REVIEW OF SYSTEMS: Discussed with Dr. Casanova, who will discuss further with the family. At this time, no additional information is obtainable. All other systems negative. PHYSICAL EXAMINATION: GENERAL: The patient is intubated on mechanical ventilation. He is not responsive. He is off sedation. VITAL SIGNS: Reveal a blood pressure of 110/70, heart rate 70, respiratory rate 18. This is on pressors. HEENT: Head normocephalic, atraumatic. Intubated. NECK: Supple. Jugular venous distention noted. CHEST: Bilateral rales and rhonchi. HEART: Irregular rhythm, S1, S2. No murmur appreciated. GASTROINTESTINAL: Abdomen is soft. Bowel sounds normoactive. EXTREMITIES: Reveal no clubbing, cyanosis, or edema. NEUROLOGIC EXAM: The patient is not responsive. SKIN: Dry; intact LABORATORY DATA: White count 14,000, hemoglobin 8.7, glucose 276, proBNP 22,500, troponin 24.4. Chest x-ray essentially clear. There are no signs of pulmonary vascular congestion or pneumonia. Endotracheal tube is in the correct position. ASSESSMENT: 1. Respiratory failure. 2. Cardiac arrest. 3. Septic shock. 4. Elevated troponins consistent with myocardial infarction and/or CPR. 5. Biventricular failure. 6. Chronic obstructive pulmonary disease. PLAN: The patient needs continued ventilatory support and antibiotics. The case has been discussed at length with Dr. Casanova. He will discuss code status with the family evidently. The patient's neurologic status is guarded. Overall status is poor. At this point in time, Neurologic evaluation is essential. Continue ventilatory support and antibiotics, pressors needed to be continued. Cardiology evaluation is pending. The overall prognosis is guarded, and Dr. Casanova will discuss code status with the family at this time. Vigorous supportive care for this 63-year-old gentleman. We will continue to intervene as vigorously as possible until the general status is more clear, the prognosis is poor. Corey Sethi MD [id number]
== END 2018-11-22 11:33 | DRG 270 ==
LOC: ED 18:13 → ERH 19:12 → ICU 21:13
PROVIDERS: ADMIT Student in an Organized Health Care Education/Training Program; ATTEND Student in an Organized Health Care Education/Training Program
PROC: 5A1945Z Respiratory Ventilation, 24-96 Consecutive Hours (ICD-10-PCS; 2018-11-14)
PROC: 0BH17EZ Insertion of Endotracheal Airway into Trachea, Via Natural or Artificial Opening (ICD-10-PCS; 2018-11-14)
PROC: 30243N1 Transfusion of Nonautologous Red Blood Cells into Central Vein, Percutaneous Approach (ICD-10-PCS; 2018-11-14)
PROC: 5A02210 Assistance with Cardiac Output using Balloon Pump, Continuous (ICD-10-PCS; principal; 2018-11-16)
PROC: 027135Z Dilation of Coronary Artery, Two Arteries with Two Drug-eluting Intraluminal Devices, Percutaneous Approach (ICD-10-PCS; 2018-11-16)
PROC: 4A023N7 Measurement of Cardiac Sampling and Pressure, Left Heart, Percutaneous Approach (ICD-10-PCS; 2018-11-16)
PROC: B2151ZZ Fluoroscopy of Left Heart using Low Osmolar Contrast (ICD-10-PCS; 2018-11-16)
PROC: B2111ZZ Fluoroscopy of Multiple Coronary Arteries using Low Osmolar Contrast (ICD-10-PCS; 2018-11-16)
PROC: 3E033PZ Introduction of Platelet Inhibitor into Peripheral Vein, Percutaneous Approach (ICD-10-PCS; 2018-11-16)
PROC: 4A10X4Z Monitoring of Central Nervous Electrical Activity, External Approach (ICD-10-PCS; 2018-11-16)
PROC: 5A09357 Assistance with Respiratory Ventilation, Less than 24 Consecutive Hours, Continuous Positive Airway Pressure (ICD-10-PCS; 2018-11-17)
PROC: 05H633Z Insertion of Infusion Device into Left Subclavian Vein, Percutaneous Approach (ICD-10-PCS; 2018-11-18)
PROC: B547ZZA Ultrasonography of Left Subclavian Vein, Guidance (ICD-10-PCS; 2018-11-18)
PROC: 0DH67UZ Insertion of Feeding Device into Stomach, Via Natural or Artificial Opening (ICD-10-PCS; 2018-11-18)
PROC: 3E0G76Z Introduction of Nutritional Substance into Upper GI, Via Natural or Artificial Opening (ICD-10-PCS; 2018-11-18)
PROC: 5A1945Z Respiratory Ventilation, 24-96 Consecutive Hours (ICD-10-PCS; 2018-11-19)
PROC: 0BH18EZ Insertion of Endotracheal Airway into Trachea, Via Natural or Artificial Opening Endoscopic (ICD-10-PCS; 2018-11-19)
DX: I21.4 Non-ST elevation (NSTEMI) myocardial infarction (principal); A41.9 Sepsis, unspecified organism; G93.41 Metabolic encephalopathy; I50.23 Acute on chronic systolic (congestive) heart failure; R65.21 Severe sepsis with septic shock; J96.01 Acute respiratory failure with hypoxia; N39.0 Urinary tract infection, site not specified; N17.9 Acute kidney failure, unspecified; I13.0 Hypertensive heart and chronic kidney disease with heart failure and stage 1 through stage 4 chronic kidney disease, or unspecified chronic kidney disease; E87.2 Acidosis; D69.3 Immune thrombocytopenic purpura; G93.1 Anoxic brain damage, not elsewhere classified; I42.0 Dilated cardiomyopathy; I47.2 Ventricular tachycardia; E87.0 Hyperosmolality and hypernatremia; Z99.11 Dependence on respirator [ventilator] status; I49.01 Ventricular fibrillation; R57.0 Cardiogenic shock; E11.51 Type 2 diabetes mellitus with diabetic peripheral angiopathy without gangrene; E11.65 Type 2 diabetes mellitus with hyperglycemia; E11.22 Type 2 diabetes mellitus with diabetic chronic kidney disease; N18.3 Chronic kidney disease, stage 3 (moderate); I50.82 Biventricular heart failure; I48.0 Paroxysmal atrial fibrillation; I27.20 Pulmonary hypertension, unspecified; J44.9 Chronic obstructive pulmonary disease, unspecified; I25.5 Ischemic cardiomyopathy; E83.39 Other disorders of phosphorus metabolism; B96.4 Proteus (mirabilis) (morganii) as the cause of diseases classified elsewhere; E87.6 Hypokalemia; I25.10 Atherosclerotic heart disease of native coronary artery without angina pectoris; D63.1 Anemia in chronic kidney disease; K21.9 Gastro-esophageal reflux disease without esophagitis; I08.3 Combined rheumatic disorders of mitral, aortic and tricuspid valves; F17.200 Nicotine dependence, unspecified, uncomplicated; E78.00 Pure hypercholesterolemia, unspecified; E78.5 Hyperlipidemia, unspecified; E83.42 Hypomagnesemia; Z66 Do not resuscitate; F41.9 Anxiety disorder, unspecified; Z78.1 Physical restraint status; Z79.84 Long term (current) use of oral hypoglycemic drugs; Z79.82 Long term (current) use of aspirin; Z79.02 Long term (current) use of antithrombotics/antiplatelets